=== PATIENT | male | born 1940 | race Two or more races ===

== ENCOUNTER 2017-05-08 12:47 | Inpatient (IN) | payer MEDICARE, MEDICAID ==
[~2017-05-08] VITALS: Ht 172.7 cm; Wt 73.5 kg
[~2017-05-08 12:47] MED LIST: ALLOPURINOL100 M1 ORAL; AMBIEN5 MG ORAL; ATIVAN2 MG ORAL; BACTRIM-DS1 EA ORAL; CRESTOR10 M1 ORAL; HUMULIN R100 UNIT/1 SUBQ; LABETALOL HCL200 MG ORAL; LANTUS100 UNIT/2 SUBQ; MULTI VITAMIN1 EACH PO; NEXIUM40 MG ORAL; NORCO1 EA ORAL; OMEGA 3 FISH O1 EAC1 PO; SENNA8.6 M3 PO; TRAZODONE HCL100 MG ORAL; ZOLOFT100 MG ORAL
[2017-05-08] MEDS ORDERED: NS 250 ML IV ONE (12:53)
[2017-05-08] MEDS ORDERED: Pantoprazole Inj IVP ONE (13:00)
[2017-05-08] MEDS ORDERED: Morphine Sulfate 2mg/ml Inj IVP ONE (13:00)
[2017-05-08 13:07] VITALS: BP 101/60
[2017-05-08 13:21] LABS: EOSINOPHILS % (AUTO) 3.3 % (0.0-3.0); LYMPHOCYTES % (AUTO) 7.8 % (20.0-45.0); MEAN CORPUSCULAR HEMOGLOBIN 29.8 PG (27.0-31.0); MEAN CORPUSCULAR HGB CONC 30.9 G/DL (32.0-36.0); MEAN CORPUSCULAR VOLUME 96 FL (80-99); MEAN PLATELET VOLUME 5.9 FL (6.5-10.1); MONOCYTES % (AUTO) 6.1 % (1.0-10.0); PLATELET COUNT 291 K/UL (150-450); RED BLOOD COUNT 3.57 M/UL (4.70-6.10); RED CELL DISTRIBUTION WIDTH 14.7 % (11.6-14.8); WHITE BLOOD COUNT 9.8 K/UL (4.8-10.8)
[2017-05-08 13:27] LABS: INR 1.1 (0.9-1.1); PROTHROMBIN TIME 11.2 SEC (9.30-11.50)
[2017-05-08 13:30] VITALS: BP 117/61
[2017-05-08 13:35] LABS: ANION GAP 8 mmol/L (5-15); CALCIUM 8.9 MG/DL (8.5-10.1); CARBON DIOXIDE 30 MMOL/L (21-32); CHLORIDE 101 MMOL/L (98-107); CREATININE 4.7 MG/DL (0.55-1.30); POTASSIUM 4.5 MMOL/L (3.5-5.1); SODIUM 139 MMOL/L (136-145)
[2017-05-08 13:49] LABS: ALANINE AMINOTRANSFERASE 31 U/L (12-78); ASPARTATE AMINO TRANSFERASE 21 U/L (15-37); CKMB 2.5 NG/ML (0.0-3.6); TOTAL PROTEIN 6.2 G/DL (6.4-8.2)
--- NOTE | 2017-05-08 14:47 | Emergency Room Report ---
History of Present Illness General Chief Complaint: Chest Pain Source: Patient, EMS Present Illness HPI 77-year-old male presents ED complaining of chest pain. Started today while at rest. Was given aspirin by EMS. Chest pain as a 5/10, pressure, nonradiating. Patient also gets dialysis. Denies shortness of breath. Denies fevers or chills. Denies cough. No other aggravating relieving factors. Denies any other associated symptoms Allergies: Coded Allergies: No Known Allergies (Unverified , 11/12/12) Patient History Past Medical History: DM, HTN, renal disease, dialysis Past Surgical History: none Pertinent Family History: none Social History: Denies: smoking, alcohol use, drug use Immunizations: UTD Reviewed Nursing Documentation: PMH: Agreed, PSxH: Agreed Nursing Documentation-PMH Hx Cardiac Problems: Yes Hx Hypertension: Yes Hx Diabetes: Yes Hx Dialysis: Yes Review of Systems All Other Systems: negative except mentioned in HPI Physical Exam Vital Signs Date Time Temp Pulse Resp B/P (MAP) Pulse Ox O2 Delivery O2 Flow Rate FiO2 05/08/17 12:39 97.9 78 18 110/60 98 Room Air Sp02 EP Interpretation: reviewed, normal General Appearance: no apparent distress, alert, GCS 15, non-toxic Head: normocephalic, atraumatic Eyes: bilateral eye normal inspection, bilateral eye PERRL ENT: hearing grossly normal, normal pharynx, no angioedema, normal voice Neck: full range of motion, supple/symm/no masses Respiratory: chest non-tender, lungs clear, normal breath sounds, speaking full sentences Cardiovascular #1: regular rate, rhythm, no edema Cardiovascular #2: 2+ carotid (R), 2+ carotid (L), 2+ radial (R), 2+ radial (L) , 2+ dorsalis pedis (R), 2+ dorsalis pedis (L) Gastrointestinal: normal bowel sounds, non tender, soft, non-distended, no guarding, no rebound Rectal: deferred Genitourinary: normal inspection, no CVA tenderness Musculoskeletal: back normal, gait/station normal, normal range of motion, non- tender Neurologic: alert, oriented x3, responsive, motor strength/tone normal, sensory intact, speech normal Psychiatric: judgement/insight normal, memory normal, mood/affect normal, no suicidal/homicidal ideation Reflexes: 3+ bicep (R), 3+ bicep (L), 3+ tricep (R), 3+ tricep (L), 3+ knee (R) , 3+ knee (L) Skin: normal color, no rash, warm/dry, well hydrated Lymphatic: no adenopathy Medical Decision Making Diagnostic Impression: Primary Impression: Chest pain Qualified Codes: R07.9 - Chest pain, unspecified Additional Impression: ESRD (end stage renal disease) on dialysis ER Course Hospital Course 77-year-old male presents to ED complaining of chest pain Differential diagnoses include: UT/unstable angina, contusion, muscle strain, PTX, rib fracture Clinical course 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 After initial history and physical I ordered labs, EKG, chest x-ray, morphine labs reviewed- no leukocytosis, hb/hct stable, BUN/Cr elevated, trop 0.028, BNP elevated EKG - NSR, no acute ischemic changes interpreted by me Chest x-ray- atelectasis Patient states he feels better wishes to be discharge. Patient has extensive risk factors for cardiac disease. I explained to patient the risks of leaving. Patient states he understands Patient has competency to make his own decisions. Signed AMA form. I. I feel this is a highly complex case requiring extensive working including EKG/Rhythm strip, Xray/CT/US, Blood/urine lab work, repeat exams while in ED, and administration of strong opiates/narcotics for pain control, admission to hospital or close patient follow up. Diagnosis - chest pain, ESRD on dialysis patient left AMA Labs Test 05/08/17 12:50 White Blood Count 9.8 K/UL (4.8-10.8) Red Blood Count 3.57 M/UL (4.70-6.10) Hemoglobin 10.6 G/DL (14.2-18.0) Hematocrit 34.4 % (42.0-52.0) Mean Corpuscular Volume 96 FL (80-99) Mean Corpuscular Hemoglobin 29.8 PG (27.0-31.0) Mean Corpuscular Hemoglobin Concent 30.9 G/DL (32.0-36.0) Red Cell Distribution Width 14.7 % (11.6-14.8) Platelet Count 291 K/UL (150-450) Mean Platelet Volume 5.9 FL (6.5-10.1) Neutrophils (%) (Auto) 82.0 % (45.0-75.0) Lymphocytes (%) (Auto) 7.8 % (20.0-45.0) Monocytes (%) (Auto) 6.1 % (1.0-10.0) Eosinophils (%) (Auto) 3.3 % (0.0-3.0) Basophils (%) (Auto) 1.0 % (0.0-2.0) Prothrombin Time 11.2 SEC (9.30-11.50) Prothromb Time International Ratio 1.1 (0.9-1.1) Activated Partial Thromboplast Time 24 SEC (23-33) Sodium Level 139 MMOL/L (136-145) Potassium Level 4.5 MMOL/L (3.5-5.1) Chloride Level 101 MMOL/L (98-107) Carbon Dioxide Level 30 MMOL/L (21-32) Anion Gap 8 mmol/L (5-15) Blood Urea Nitrogen 88 mg/dL (7-18) Creatinine 4.7 MG/DL (0.55-1.30) Estimat Glomerular Filtration Rate mL/min (>60) Glucose Level 163 MG/DL (74-106) Calcium Level 8.9 MG/DL (8.5-10.1) Total Bilirubin 0.3 MG/DL (0.2-1.0) Aspartate Amino Transf (AST/SGOT) 21 U/L (15-37) Alanine Aminotransferase (ALT/SGPT) 31 U/L (12-78) Alkaline Phosphatase 89 U/L (46-116) Total Creatine Kinase 129 U/L (26-308) Creatine Kinase MB 2.5 NG/ML (0.0-3.6) Creatine Kinase MB Relative Index 1.9 Troponin I 0.028 ng/mL (0.000-0.056) Pro-B-Type Natriuretic Peptide 1228 pg/mL (0-125) Total Protein 6.2 G/DL (6.4-8.2) Albumin 3.1 G/DL (3.4-5.0) Globulin 3.1 g/dL Albumin/Globulin Ratio 1.0 (1.0-2.7) EKG Diagnostic Results Rate: normal Rhythm: NSR ST Segments: no acute changes ASA given to the pt in ED: No - given by ems Rhythm Strip Diag. Results EP Interpretation: yes Rhythm: NSR, no PVC's, no ectopy Chest X-Ray Diagnostic Results Chest X-Ray Diagnostic Results : Chest X-Ray Ordered: Yes # of Views/Limited/Complete: 1 View Indication: Chest Pain EP Interpretation: Yes Interpretation: no pneumothorax, no acute cardiopulmonary disease, other - atelectasis Impression: No acute disease Electronically Signed by: Electronically signed by Tyler Coles MD Last Vital Signs Date Time Temp Pulse Resp B/P (MAP) Pulse Ox O2 Delivery O2 Flow Rate FiO2 05/08/17 13:30 79 24 117/61 98 Room Air 05/08/17 13:07 98.2 Status: improved Disposition: AGAINST MEDICAL ADVICE Condition: Stable Referrals: NON PHYSICIAN (PCP) TYLER COLES M.D. May 08, 2017 14:47
[2017-05-08 14:49] VITALS: BP 121/64
--- NOTE | 2017-05-08 17:24 | Diagnostic Imaging Report ---
Indication: Reason For Exam: CP Technique: One view of the chest Comparison: 05/10/2013 Findings: The heart is enlarged. The lungs and pleural spaces are clear. The aorta is tortuous and calcified. The upper mediastinum is unremarkable. A coronary stent is demonstrated. Impression: No acute process
[2017-05-08 18:12] VITALS: BP 133/78
--- NOTE | 2017-05-08 19:52 | Consultation ---
Consult Note Consult Note asked to eval for dialysis management seen in ER on HD for past 2 years to ER for CP Dialysis Heladio W Fr DM HTN ESRD Meds reviewed Assessment/Plan ESRD ACS DM HTN Plan: HD in am Per cardiology keep BP and BS in check CARMEN RAE May 08, 2017 19:52
[2017-05-08 20:00] VITALS: BP 141/78
[2017-05-08] MEDS: Morphine Sulfate 2mg/ml Inj IVP PRN (20:54)
[2017-05-08] MEDS: TraZODone 100mg tab ORAL SCH (20:56)
[2017-05-08] MEDS: Pantoprazole 80 MG in NS 250 ML IV SCH (23:09)
[2017-05-09] VITALS (11 sets, daily range): BP systolic 106–134; BP diastolic 56–68
[2017-05-09] MEDS: Morphine Sulfate 2mg/ml Inj IVP PRN ×2 (08:31→22:04)
[2017-05-09 08:49] LABS: BASOPHILS % (AUTO) 0.8 % (0.0-2.0); EOSINOPHILS % (AUTO) 0.1 % (0.0-3.0); LYMPHOCYTES % (AUTO) 9.3 % (20.0-45.0); MEAN CORPUSCULAR HEMOGLOBIN 30.4 PG (27.0-31.0); MEAN CORPUSCULAR HGB CONC 31.8 G/DL (32.0-36.0); MEAN CORPUSCULAR VOLUME 96 FL (80-99); MEAN PLATELET VOLUME 5.9 FL (6.5-10.1); MONOCYTES % (AUTO) 7.5 % (1.0-10.0); NEUTROPHILS % (AUTO) 82.2 % (45.0-75.0); PLATELET COUNT 289 K/UL (150-450); RED BLOOD COUNT 2.79 M/UL (4.70-6.10); RED CELL DISTRIBUTION WIDTH 14.6 % (11.6-14.8); WHITE BLOOD COUNT 8.1 K/UL (4.8-10.8)
[2017-05-09] MEDS: Labetalol 200mg tab ORAL SCH ×2 (09:00→17:37)
[2017-05-09] MEDS ORDERED: Prep H Ointment 57gm RECTAL PRN (09:00)
[2017-05-09] MEDS ORDERED: Aspirin Baby 81mg ORAL SCH (09:00)
[2017-05-09 09:02] LABS: HEMOGLOBIN A1C 5.6 % (4.3-6.0)
[2017-05-09 09:10] LABS: ALANINE AMINOTRANSFERASE 24 U/L (12-78); ANION GAP 11 mmol/L (5-15); ASPARTATE AMINO TRANSFERASE 13 U/L (15-37); CARBON DIOXIDE 28 MMOL/L (21-32); CHLORIDE 99 MMOL/L (98-107); CHOLESTEROL 122 MG/DL (< 200); CHOLESTEROL/HDL RATIO 4.5 (3.3-4.4); CREATININE 5.8 MG/DL (0.55-1.30); CRP QUANT < 0.4 mg/dL (0.00-0.90); FERRITIN 698 NG/ML (8-388); MAGNESIUM 1.8 MG/DL (1.8-2.4); PHOSPHORUS 3.2 MG/DL (2.5-4.9); POTASSIUM 4.4 MMOL/L (3.5-5.1); SODIUM 138 MMOL/L (136-145); THYROID STIMULATING HORMONE 0.344 uiU/mL (0.358-3.740); TOTAL PROTEIN 5.9 G/DL (6.4-8.2); URIC ACID 5.8 MG/DL (2.6-7.2)
--- NOTE | 2017-05-09 09:34 | Pre-Procedure Note/Attestation ---
Pre-Procedure Note/Attestation Complete Prior to Procedure Planned Procedure: not applicable Procedure Narrative: egd Indications for Procedure Pre-Operative Diagnosis: gib Attestation I attest that I discussed the nature of the procedure; its benefits; risks and complications; and alternatives (and the risks and benefits of such alternatives ), prior to the procedure, with the patient (or the patient's legal development representative). I attest that, if there was a reasonable possibility of needing a blood transfusion, the patient (or the patient's legal development representative) was given the [facility] standardized written summary, pursuant to the K[place] Pancho Blood Safety Act ([place] Health and Safety Code # 1645, as amended). I attest that I re-evaluated the patient just prior to the surgery and that there has been no change in the patient's H&P, except as documented below: ALDEN COLON May 09, 2017 09:34
--- NOTE | 2017-05-09 09:34 | General Progress Note ---
Assessment/Plan Problem List: (1) Depression ICD Codes: F32.9 - Major depressive disorder, single episode, unspecified SNOMED: 12931139 (2) Coffee ground emesis ICD Codes: K92.0 - Hematemesis SNOMED: 01607237, 894398115 (3) ESRD (end stage renal disease) on dialysis ICD Codes: N18.6 - End stage renal disease; Z99.2 - Dependence on renal dialysis SNOMED: 173930558 (4) Chest pain ICD Codes: R07.9 - Chest pain SNOMED: 14520942 Assessment/Plan plan EGd today Subjective ROS Limited/Unobtainable: Yes Allergies: Coded Allergies: No Known Allergies (Unverified , 11/12/12) Objective Last 24 Hour Vital Signs Date Time Temp Pulse Resp B/P (MAP) Pulse Ox O2 Delivery O2 Flow Rate FiO2 05/09/17 04:00 69 05/09/17 04:00 98.2 79 20 121/62 97 Room Air 05/09/17 00:00 70 05/09/17 00:00 97.7 67 20 112/62 95 Room Air 05/08/17 20:00 98.1 82 20 141/78 98 Room Air 05/08/17 20:00 86 05/08/17 18:12 98.7 81 22 133/78 100 Room Air 05/08/17 17:27 78 16 130/70 98 Room Air 78 05/08/17 14:49 98.7 79 24 121/64 98 Room Air 79 05/08/17 13:30 79 24 117/61 98 Room Air 05/08/17 13:07 98.2 79 24 101/60 98 Room Air 05/08/17 13:05 78 16 05/08/17 12:39 97.9 78 18 110/60 98 Room Air Laboratory Tests 05/08/17 12:50: White Blood Count 9.8, Red Blood Count 3.57L, Hemoglobin 10.6L, Hematocrit 34.4L , Mean Corpuscular Volume 96, Mean Corpuscular Hemoglobin 29.8, Mean Corpuscular Hemoglobin Concent 30.9L, Red Cell Distribution Width 14.7, Platelet Count 291, Mean Platelet Volume 5.9L, Neutrophils (%) (Auto) 82.0H, Lymphocytes (%) (Auto) 7.8L, Monocytes (%) (Auto) 6.1, Eosinophils (%) (Auto) 3.3H, Basophils (%) (Auto) 1.0, Prothrombin Time 11.2, Prothromb Time International Ratio 1.1, Activated Partial Thromboplast Time 24, Sodium Level 139, Potassium Level 4.5, Chloride Level 101, Carbon Dioxide Level 30, Anion Gap 8, Blood Urea Nitrogen 88H, Creatinine 4.7H, Estimat Glomerular Filtration Rate , Glucose Level 163H, Calcium Level 8.9, Total Bilirubin 0.3, Aspartate Amino Transf (AST/SGOT) 21, Alanine Aminotransferase (ALT/SGPT) 31, Alkaline Phosphatase 89, Total Creatine Kinase 129, Creatine Kinase MB 2.5, Creatine Kinase MB Relative Index 1.9, Troponin I 0.028, Pro-B-Type Natriuretic Peptide 1228H, Total Protein 6.2L, Albumin 3.1L, Globulin 3.1, Albumin/Globulin Ratio 1.0 05/09/17 07:50: White Blood Count 8.1, Red Blood Count 2.79L, Hemoglobin 8.5L, Hematocrit 26.7L , Mean Corpuscular Volume 96, Mean Corpuscular Hemoglobin 30.4, Mean Corpuscular Hemoglobin Concent 31.8L, Red Cell Distribution Width 14.6, Platelet Count 289, Mean Platelet Volume 5.9L, Neutrophils (%) (Auto) 82.2H, Lymphocytes (%) (Auto) 9.3L, Monocytes (%) (Auto) 7.5, Eosinophils (%) (Auto) 0.1, Basophils (%) (Auto) 0.8, Sodium Level 138, Potassium Level 4.4, Chloride Level 99, Carbon Dioxide Level 28, Anion Gap 11, Blood Urea Nitrogen 133H, Creatinine 5.8H, Estimat Glomerular Filtration Rate , Glucose Level 170H, Calcium Level 9.0, Total Bilirubin 0.2, Aspartate Amino Transf (AST/SGOT) 13L, Alanine Aminotransferase (ALT/SGPT) 24, Alkaline Phosphatase 71, Pro-B-Type Natriuretic Peptide 1151H, Total Protein 5.9L, Albumin 3.0L, Globulin 2.9, Albumin/Globulin Ratio 1.0, Hemoglobin A1c 5.6, Uric Acid 5.8, Phosphorus Level 3.2, Magnesium Level 1.8, Iron Level [Pending], Unsaturated Iron Binding [ Pending], Ferritin 698H, Gamma Glutamyl Transpeptidase 46, C-Reactive Protein, Quantitative < 0.4, Triglycerides Level 261H, Cholesterol Level 122, LDL Cholesterol 56, HDL Cholesterol 27L, Cholesterol/HDL Ratio 4.5H, Vitamin B12 Level [Pending], Folate [Pending], Thyroid Stimulating Hormone (TSH) 0.344L Height (Feet): 5 Height (Inches): 8.00 Weight (Pounds): 166 General Appearance: no apparent distress EENT: normal ENT inspection Neck: supple Cardiovascular: normal rate Respiratory/Chest: decreased breath sounds Abdomen: normal bowel sounds, non tender, soft Extremities: non-tender ALDEN COLON May 09, 2017 09:34
[2017-05-09 09:44] LABS: FOLIC ACID 16.5 NG/ML (8.6-58.9); IRON 131 ug/dL (50-175); TOTAL IRON BINDING CAPACITY 198 ug/dL (250-450)
[2017-05-09] MEDS ORDERED: NS 500ML IV ONE (09:45)
[2017-05-09] MEDS ORDERED: Lidocaine 1% MPF 10mg/ml 5ml ONE (10:00)
[2017-05-09] MEDS ORDERED: Propofol 200mg/20ml IV ONE (10:00)
--- NOTE | 2017-05-09 10:15 | Anethesia Preoperative Eval ---
Anesthesia Pre-op PMH/ROS General Date of Evaluation: May 09, 2017 Time of Evaluation: 09:51 Anesthesiologist: Otilio ASA Score: ASA 3 Mallampati Score Class I : Soft palate, uvula, fauces, pillars visible Class II: Soft palate, uvula, fauces visible Class III: Soft palate, base of uvula visible Class IV: Only hard plate visible Mallampati Classification: Class II Surgeon: Beth Diagnosis: hematemesis Surgical Procedure: EGD Anesthesia History: none Family History: no anesthesia problems Allergies: Coded Allergies: No Known Allergies (Unverified , 11/12/12) Medications: see eMAR Past Medical History Cardiovascular: Reports: HTN, CAD, other - Chest Pain yesterday - EKG NSR , trop 0.028, CXR atelectasis Pulmonary: Denies: asthma, COPD, ERIK, other Gastrointestinal/Genitourinary: Reports: GERD, ESRD - on dialysis Neurologic/Psychiatric: Denies: dementia, CVA, depression/anxiety, TIA, other Endocrine: Reports: DM HEENT: Denies: cataract (L), cataract (R), glaucoma, [place] (L), [place] (R), other Hematology/Immune: Reports: anemia Musculoskeletal/Integumentary: Reports: OA Anesthesia Pre-op Phys. Exam Physician Exam Last Vital Signs Date Time Temp Pulse Resp B/P (MAP) Pulse Ox O2 Delivery O2 Flow Rate FiO2 05/09/17 04:00 69 05/09/17 04:00 98.2 20 121/62 97 Room Air Constitutional: NAD Neurologic: CN 2-12 intact Cardiovascular: RRR Respiratory: CTA Gastrointestinal: S/NT/ND Airway Exam Mallampati Score: Class II MO: full ROM: full Teeth: missing, intact Dentures: upper - upper dentures fixed Anesthesia Pre-op A/P Labs Hematology Test 05/08/17 12:50 05/09/17 07:50 White Blood Count 9.8 K/UL (4.8-10.8) 8.1 K/UL (4.8-10.8) Red Blood Count 3.57 M/UL (4.70-6.10) L 2.79 M/UL (4.70-6.10) L Hemoglobin 10.6 G/DL (14.2-18.0) L 8.5 G/DL (14.2-18.0) L Hematocrit 34.4 % (42.0-52.0) L 26.7 % (42.0-52.0) L Mean Corpuscular Volume 96 FL (80-99) 96 FL (80-99) Mean Corpuscular Hemoglobin 29.8 PG (27.0-31.0) 30.4 PG (27.0-31.0) Mean Corpuscular Hemoglobin Concent 30.9 G/DL (32.0-36.0) L 31.8 G/DL (32.0-36.0) L Red Cell Distribution Width 14.7 % (11.6-14.8) 14.6 % (11.6-14.8) Platelet Count 291 K/UL (150-450) 289 K/UL (150-450) Mean Platelet Volume 5.9 FL (6.5-10.1) L 5.9 FL (6.5-10.1) L Neutrophils (%) (Auto) 82.0 % (45.0-75.0) H 82.2 % (45.0-75.0) H Lymphocytes (%) (Auto) 7.8 % (20.0-45.0) L 9.3 % (20.0-45.0) L Monocytes (%) (Auto) 6.1 % (1.0-10.0) 7.5 % (1.0-10.0) Eosinophils (%) (Auto) 3.3 % (0.0-3.0) H 0.1 % (0.0-3.0) Basophils (%) (Auto) 1.0 % (0.0-2.0) 0.8 % (0.0-2.0) Coagulation Test 05/08/17 12:50 Prothrombin Time 11.2 SEC (9.30-11.50) Prothromb Time International Ratio 1.1 (0.9-1.1) Activated Partial Thromboplast Time 24 SEC (23-33) Chemistry Test 05/08/17 12:50 05/09/17 07:50 Sodium Level 139 MMOL/L (136-145) 138 MMOL/L (136-145) Potassium Level 4.5 MMOL/L (3.5-5.1) 4.4 MMOL/L (3.5-5.1) Chloride Level 101 MMOL/L (98-107) 99 MMOL/L (98-107) Carbon Dioxide Level 30 MMOL/L (21-32) 28 MMOL/L (21-32) Anion Gap 8 mmol/L (5-15) 11 mmol/L (5-15) Blood Urea Nitrogen 88 mg/dL (7-18) H 133 mg/dL (7-18) H Creatinine 4.7 MG/DL (0.55-1.30) H 5.8 MG/DL (0.55-1.30) H Estimat Glomerular Filtration Rate mL/min (>60) mL/min (>60) Glucose Level 163 MG/DL (74-106) H 170 MG/DL (74-106) H Calcium Level 8.9 MG/DL (8.5-10.1) 9.0 MG/DL (8.5-10.1) Total Bilirubin 0.3 MG/DL (0.2-1.0) 0.2 MG/DL (0.2-1.0) Aspartate Amino Transf (AST/SGOT) 21 U/L (15-37) 13 U/L (15-37) L Alanine Aminotransferase (ALT/SGPT) 31 U/L (12-78) 24 U/L (12-78) Alkaline Phosphatase 89 U/L (46-116) 71 U/L (46-116) Total Creatine Kinase 129 U/L (26-308) Creatine Kinase MB 2.5 NG/ML (0.0-3.6) Creatine Kinase MB Relative Index 1.9 Troponin I 0.028 ng/mL (0.000-0.056) Pro-B-Type Natriuretic Peptide 1228 pg/mL (0-125) H 1151 pg/mL (0-125) H Total Protein 6.2 G/DL (6.4-8.2) L 5.9 G/DL (6.4-8.2) L Albumin 3.1 G/DL (3.4-5.0) L 3.0 G/DL (3.4-5.0) L Globulin 3.1 g/dL 2.9 g/dL Albumin/Globulin Ratio 1.0 (1.0-2.7) 1.0 (1.0-2.7) Hemoglobin A1c 5.6 % (4.3-6.0) Uric Acid 5.8 MG/DL (2.6-7.2) Phosphorus Level 3.2 MG/DL (2.5-4.9) Magnesium Level 1.8 MG/DL (1.8-2.4) Iron Level 131 ug/dL (50-175) Total Iron Binding Capacity 198 ug/dL (250-450) L Percent Iron Saturation 66 % (15-50) H Unsaturated Iron Binding 67 ug/dL (112-346) L Ferritin 698 NG/ML (8-388) H Gamma Glutamyl Transpeptidase 46 U/L (5-85) C-Reactive Protein, Quantitative < 0.4 mg/dL (0.00-0.90) Triglycerides Level 261 MG/DL (30-150) H Cholesterol Level 122 MG/DL (< 200) LDL Cholesterol 56 mg/dL (<100) HDL Cholesterol 27 MG/DL (40-60) L Cholesterol/HDL Ratio 4.5 (3.3-4.4) H Vitamin B12 Level 680 PG/ML (193-986) Folate 16.5 NG/ML (8.6-58.9) Thyroid Stimulating Hormone (TSH) 0.344 uiU/mL (0.358-3.740) Accucheck BS 170 Studies Pre-op Studies: EKG - NSR Risk Assessment & Plan Assessment: A&Ox3 Plan: MAC Status Change Before Surgery: No Pre-Antibiotics Given Within 1 Hr of Incision: Bee Nolen CRNA May 09, 2017 10:15
--- NOTE | 2017-05-09 10:32 | Immediate Post-Op Evaluation ---
Immediate Post-Op Evalulation Immediate Post-Op Evalulation Procedure: EGD with biopsy Date of Evaluation: May 09, 2017 Time of Evaluation: 10:16 IV Fluids: NSS 200 ml Blood Products: 0 Estimated Blood Loss: 0 Urinary Output: 0 Blood Pressure Systolic: 124 Blood Pressure Diastolic: 61 Pulse Rate: 71 Respiratory Rate: 20 O2 Sat by Pulse Oximetry: 99 Temperature (Fahrenheit): 99.7 Pain Score (1-10): 0 Nausea: No Vomiting: No Complications none Patient Status: awake, reacts, patent Hydration Status: adequate Given Within 1 Hr of Incision: Bee Nolen CRNA May 09, 2017 10:32
--- NOTE | 2017-05-09 10:33 | 48 Hour Post Anesthesia Eval ---
Post Anesthesia Evaluation Procedure: EGD with biopsy Date of Evaluation: May 09, 2017 Time of Evaluation: 10:32 Blood Pressure Systolic: 125 0: 65 Pulse Rate: 75 Respiratory Rate: 18 Temperature (Fahrenheit): 99.7 O2 Sat by Pulse Oximetry: 100 Airway: patent Nausea: No Vomiting: No Pain Intensity: 0 Hydration Status: adequate Mental Status/LOC: patient returned to baseline Follow-up care needed: patient intructions given Bee Yañez CRNA May 09, 2017 10:33
[2017-05-09] MEDS: Allopurinol 100mg Tab ORAL SCH (11:22)
[2017-05-09] MEDS: Pantoprazole 80 MG in NS 250 ML IV SCH ×2 (11:22→17:40)
--- NOTE | 2017-05-09 11:49 | Consultation ---
Consult Note Consult Note [id number] Chely Kulkarni M.D. May 09, 2017 11:49
--- NOTE | 2017-05-09 12:35 | Nephrology Progress Note ---
Assessment/Plan Assessment ESRD ACS DM HTN coffe ground vomiting Plan Plan: HD today Per cardiology keep BP and BS in check Subjective ROS Limited/Unobtainable: No Constitutional: Reports: malaise, other - no CP Objective Objective Last 24 Hour Vital Signs Date Time Temp Pulse Resp B/P (MAP) Pulse Ox O2 Delivery O2 Flow Rate FiO2 05/09/17 12:00 97.5 66 18 106/60 100 Room Air 05/09/17 10:41 99.2 63 18 124/62 98 Room Air 05/09/17 10:35 65 17 123/62 98 Room Air 05/09/17 10:33 75 18 100 05/09/17 10:32 71 20 99 05/09/17 10:25 73 21 113/61 100 Room Air 05/09/17 10:20 66 18 114/62 100 Nasal Cannula 3.0 05/09/17 10:16 99.7 70 17 120/56 100 Nasal Cannula 3.0 05/09/17 08:00 67 05/09/17 08:00 97.5 70 18 118/60 100 Room Air 05/09/17 04:00 69 05/09/17 04:00 98.2 79 20 121/62 97 Room Air 05/09/17 00:00 70 05/09/17 00:00 97.7 67 20 112/62 95 Room Air 05/08/17 20:00 98.1 82 20 141/78 98 Room Air 05/08/17 20:00 86 05/08/17 18:12 98.7 81 22 133/78 100 Room Air 05/08/17 17:27 78 16 130/70 98 Room Air 78 05/08/17 14:49 98.7 79 24 121/64 98 Room Air 79 05/08/17 13:30 79 24 117/61 98 Room Air 05/08/17 13:07 98.2 79 24 101/60 98 Room Air 05/08/17 13:05 78 16 05/08/17 12:39 97.9 78 18 110/60 98 Room Air Intake and Output 05/08/17 05/09/17 19:00 07:00 Intake Total 50 ml 246 ml Output Total 325 ml Balance 50 ml -79 ml Intake Oral 0 ml 50 ml IV Total 50 ml 196 ml Output Urine Total 200 ml Emesis 125 ml # Voids 1 Laboratory Tests 05/08/17 12:50: White Blood Count 9.8, Red Blood Count 3.57L, Hemoglobin 10.6L, Hematocrit 34.4L , Mean Corpuscular Volume 96, Mean Corpuscular Hemoglobin 29.8, Mean Corpuscular Hemoglobin Concent 30.9L, Red Cell Distribution Width 14.7, Platelet Count 291, Mean Platelet Volume 5.9L, Neutrophils (%) (Auto) 82.0H, Lymphocytes (%) (Auto) 7.8L, Monocytes (%) (Auto) 6.1, Eosinophils (%) (Auto) 3.3H, Basophils (%) (Auto) 1.0, Prothrombin Time 11.2, Prothromb Time International Ratio 1.1, Activated Partial Thromboplast Time 24, Sodium Level 139, Potassium Level 4.5, Chloride Level 101, Carbon Dioxide Level 30, Anion Gap 8, Blood Urea Nitrogen 88H, Creatinine 4.7H, Estimat Glomerular Filtration Rate , Glucose Level 163H, Calcium Level 8.9, Total Bilirubin 0.3, Aspartate Amino Transf (AST/SGOT) 21, Alanine Aminotransferase (ALT/SGPT) 31, Alkaline Phosphatase 89, Total Creatine Kinase 129, Creatine Kinase MB 2.5, Creatine Kinase MB Relative Index 1.9, Troponin I 0.028, Pro-B-Type Natriuretic Peptide 1228H, Total Protein 6.2L, Albumin 3.1L, Globulin 3.1, Albumin/Globulin Ratio 1.0 05/09/17 07:50: White Blood Count 8.1, Red Blood Count 2.79L, Hemoglobin 8.5L, Hematocrit 26.7L , Mean Corpuscular Volume 96, Mean Corpuscular Hemoglobin 30.4, Mean Corpuscular Hemoglobin Concent 31.8L, Red Cell Distribution Width 14.6, Platelet Count 289, Mean Platelet Volume 5.9L, Neutrophils (%) (Auto) 82.2H, Lymphocytes (%) (Auto) 9.3L, Monocytes (%) (Auto) 7.5, Eosinophils (%) (Auto) 0.1, Basophils (%) (Auto) 0.8, Sodium Level 138, Potassium Level 4.4, Chloride Level 99, Carbon Dioxide Level 28, Anion Gap 11, Blood Urea Nitrogen 133H, Creatinine 5.8H, Estimat Glomerular Filtration Rate , Glucose Level 170H, Calcium Level 9.0, Total Bilirubin 0.2, Aspartate Amino Transf (AST/SGOT) 13L, Alanine Aminotransferase (ALT/SGPT) 24, Alkaline Phosphatase 71, Pro-B-Type Natriuretic Peptide 1151H, Total Protein 5.9L, Albumin 3.0L, Globulin 2.9, Albumin/Globulin Ratio 1.0, Hemoglobin A1c 5.6, Uric Acid 5.8, Phosphorus Level 3.2, Magnesium Level 1.8, Iron Level 131, Total Iron Binding Capacity 198L, Percent Iron Saturation 66H, Unsaturated Iron Binding 67L, Ferritin 698H, Gamma Glutamyl Transpeptidase 46, C-Reactive Protein, Quantitative < 0.4, Triglycerides Level 261H, Cholesterol Level 122, LDL Cholesterol 56, HDL Cholesterol 27L, Cholesterol/HDL Ratio 4.5H, Vitamin B12 Level 680, Folate 16.5 , Thyroid Stimulating Hormone (TSH) 0.344L Height (Feet): 5 Height (Inches): 8.00 Weight (Pounds): 166 General Appearance: no apparent distress Cardiovascular: normal rate Respiratory/Chest: lungs clear Abdomen: soft CARMEN RAE May 09, 2017 12:35
--- NOTE | 2017-05-09 15:04 | Cardiology Report ---
APPROVED REPORT EXAM: Two-dimensional and M-mode echocardiogram with Doppler and color Doppler. INDICATION Congestive Heart Failure M-Mode DIMENSIONS IVSd1.2 (0.7-1.1cm)Left Atrium (MM)3.5 (1.6-4.0cm) LVDd4.1 (3.5-5.6cm)Aortic Root2.9 (2.0-3.7cm) PWd1.4 (0.7-1.1cm)Aortic Cusp Exc.1.9 (1.5-2.0cm) LVDs1.6 (2.5-4.0cm) PWs2.4 cm Normal left ventricular chamber size, systolic function and wall motion. Left ventricular ejection fraction estimated to be 55 %. Mild left ventricular hypertrophy. Anterior Echo-free space, may be due to pericardial fat or effusion. All other cardiac chamber sizes are within normal limits. Focal aortic valve sclerosis with adequate cusp excursion. Thickened mitral valve leaflets with normal excursion. Mild mitral annulus and aortic root calcification. Normal pulmonic valve structure. Normal tricuspid valve structure. IVC measures at 1.7 cm with physiologic collapse. A color flow and spectral Doppler study was performed and revealed: No aortic regurgitation. Trace mitral regurgitation. Mitral diastolic velocities suggest mild left ventricular dysfunction (Grade I ). Mild tricuspid regurgitation. Tricuspid systolic velocities suggests peak right ventricular systolic pressure of 25 mmHg. No pulmonic regurgitation present.
--- NOTE | 2017-05-09 15:15 | Procedure Note ---
DATE OF PROCEDURE: 05/09/2017 SURGEON: Martín Campos M.D. REFERRING PHYSICIAN: Samantha Head M.D. PROCEDURE: Upper endoscopy with biopsy. ANESTHESIA: Per Otilio SERRATO. INSTRUMENT: Olympus adult flexible upper endoscope. INDICATION: Upper GI bleeding. The procedure, risks, benefits, and possible consequences, including hemorrhage, aspiration, perforation and infection, and alternative treatments, were explained to the patient/legal guardian by Dr. Martín Campos and the patient/legal guardian understood and accepted these risks. DESCRIPTION FOR PROCEDURE: After informed consent was obtained and the patient was adequately sedated, Olympus upper endoscope was advanced from mouth into the second portion of the duodenum and retroflexion was performed in the stomach. The patient had evidence of duodenitis and shallow duodenal ulcer at the junction of the first portion of duodenum and second portion of duodenum without any adherent clot or visible vessel. Random biopsy from antrum and body was obtained to rule out H. pylori infection. SUMMARY FINDINGS: 1. Duodenal ulcer without adherent clot or visible vessel. 2. Duodenitis. PLAN: 1. To resume diet. 2. Monitor hemoglobin and hematocrit and transfuse as needed. 3. Send serology for H. pylori. 4. Follow up biopsy results for H. pylori and treat if it is positive. Start the patient on PPI daily. Okay to discharge from GI standpoint and follow as an outpatient. I want to thank Dr. Samantha Head for this kind referral. Martín Campos M.D. DR: Aiden JOB#: [id number] CC: Samantha Head M.D.; Fax#: [phone]
--- NOTE | 2017-05-09 17:01 | Cardiology Report ---
APPROVED REPORT EKG Measurement Heart [id number] VT [id number] Normal sinus rhythm Inferior infarct, age undetermined Abnormal ECG
[2017-05-09] MEDS: TraZODone 100mg tab ORAL SCH (20:45)
--- NOTE | 2017-05-09 21:15 | Consultation ---
DATE OF CONSULTATION: 05/09/2017 CONSULTING PHYSICIAN: Chely Kulkarni M.D. HISTORY OF PRESENT ILLNESS: This is a 77-year-old male with a history of multiple medical problems, including diabetic mellitus; renal disease, on dialysis; hypertension; and depression who has been admitted to the hospital for chest pain. Psychiatry was consulted as the patient is having depressive symptoms as well as the anxiety. During evaluation, he stated that he has mild symptoms of depressed mood, anhedonia, worthlessness, hopelessness, and decreased energy. He stated that trazodone has worked for him in the past. The patient was seen in the ER. PAST PSYCHIATRIC HISTORY: History of depression. No suicide attempt in the past. PAST MEDICAL HISTORY: Hypertension and renal failure, on dialysis. SUBSTANCE ABUSE HISTORY: No known history of illicit drug use or alcohol. MENTAL STATUS EXAMINATION: The patient is alert and oriented x3. Mood is depressed. Affect is constricted. Congruent with mood. Thought process is concrete. Thought content, no suicidal or homicidal ideation. ASSESSMENT: AXIS I Major depressive disorder. AXIS II Deferred. AXIS III Chest pain. AXIS IV Low. AXIS V Global assessment of functioning is 50. PLAN: 1. The patient will be started on trazodone 100 mg at bedtime. 2. Continue the Ativan as needed. 3. We will continue to follow and readjust the medications. Chely Kulkarni M.D. DR: TROY JOB#: [id number] CC:
[2017-05-09] MEDS: Epogen (for ESRD on dialysis) SUBQ SCH (21:20)
[2017-05-10] VITALS (7 sets, daily range): BP systolic 102–136; BP diastolic 57–69
[2017-05-10] MEDS: Pantoprazole 80 MG in NS 250 ML IV SCH (05:31)
--- NOTE | 2017-05-10 06:00 | Consultation ---
DATE OF CONSULTATION: 05/09/2017 HEMATOLOGY/ONCOLOGY CONSULTATION CONSULTING PHYSICIAN: Reinaldo Leon M.D. REQUESTING PHYSICIAN: Samantha Head M.D. REASON FOR CONSULTATION: Evaluation of anemia. IDENTIFICATION DATA: Dear Dr. Head, The patient is a pleasant 77-year-old male with history of end-stage renal disease, hypertension, hemodialysis three times a week, has been on dialysis for the past two weeks. He has seen Nephrology Service. He had an EGD with biopsy, which was completed. He has been seen by Psychiatry Service as well. Currently, presenting with coffee-ground vomiting. Hematology Service was consulted given the patient's anemia. Ferritin was 698. Percent saturation 66 and TIBC 198. Currently, does not require iron. TSH 0.04. Folic acid 60. Imaging was reviewed. PAST MEDICAL HISTORY: , end-stage renal disease, hypertension, and diabetes mellitus. PAST SURGICAL HISTORY: None reported. MEDICATIONS: Has been reviewed. ALLERGIES: No known drug allergies. REVIEW OF SYSTEMS: CONSTITUTIONAL: No fever, chills, or night sweats. SKIN: No rashes, bumps, or itching. HEENT: No headache, hearing, or vision changes. BREASTS: No lumps, pain, or discharge. PULMONARY: No cough, sputum, or shortness of breath. GASTROINTESTINAL: No nausea, vomiting, or diarrhea. GENITOURINARY: No dysuria, frequency, or urgency. MUSCULOSKELETAL: No joint swelling, muscle pain, or trauma. LABORATORY AND DIAGNOSTIC DATA: WBC 8.1, hemoglobin 8.9, hematocrit 27, and platelet count 289,000. BUN of 133 and creatinine . ASSESSMENT AND RECOMMENDATIONS: 1. Anemia secondary to chronic disease. Continue to closely monitor. Hemoglobin is above 7. Continue at goal. Anemia workup also has been reviewed at this time. 2. Decreased hemoglobin and hematocrit. Rule out gastrointestinal bleed. Occult blood is pending. Status post esophagogastroduodenoscopy. 3. Psychiatric disorder, seen by Psychiatry Service. 4. End-stage renal disease, on hemodialysis three times a week. 5. Diabetes mellitus. Continue to closely monitor. Blood sugar goal between 80 and 120. 6. Hypertension. Currently, blood pressure is better controlled. I appreciate the consultation. Reinaldo Kinsey Leon DR: Neda JOB#: [id number] CC:
--- NOTE | 2017-05-10 06:30 | History and Physical Report ---
DATE OF ADMISSION: 05/08/2017 HISTORY OF PRESENT ILLNESS: The patient is a dialysis patient admitted for chest pain and episodes of coffee-ground emesis as well. The patient basically complains of chest pain for couple of days. Also has a history of hemorrhoids as well as abdominal pain. He has end-stage renal disease admitted for dialysis as well. The patient denies nausea or vomiting throughout. There is no blood in the vomitus. Does have history of hemorrhoids. Denies history of shortness of breath. Denies cough. Denies any leg pain. Denies orthopnea. PAST MEDICAL HISTORY: Significant for GERD, history of gout, NIDDM, hypertension, anxiety disorder, hyperlipidemia, constipation, depression and insomnia. PAST SURGICAL HISTORY: Admitted for dialysis. ALLERGIES: No known allergies. MEDICATIONS: Allopurinol, Nexium, insulin, labetalol, lorazepam, multivitamin, Crestor, Senokot, Sertraline and trazodone. FAMILY HISTORY: He does have a history of diabetes and has hypertension. REVIEW OF SYSTEMS: HEENT: Denies headaches. RESPIRATORY: Denies shortness of breath. Denies cough. CARDIOVASCULAR: He does have chest pain. No radiation. Pain was worse with deep inspiration. GASTROINTESTINAL: Reports vomiting. No diarrhea. Does have history of hemorrhoids. Does have mild abdominal pain for couple of days. EXTREMITIES: Denies pain in lower extremities. CENTRAL NERVOUS SYSTEM: No change in vision or speech pattern. PHYSICAL EXAMINATION: VITAL SIGNS: Temperature is 99.2, pulse 62, and blood pressure is 124/62. HEENT: PERRLA. NECK: Supple. No lymphadenopathy. CHEST: Clear to auscultation. GASTROINTESTINAL: Soft and nontender. No organomegaly. EXTREMITIES: A 1+ edema. Moves all 4 extremities. NEUROLOGICAL: Sensory intact to light touch. Reflexes are equal on both sides. LABORATORY VALUES: WBC of 9.8, hemoglobin 10.6, and platelet of 291. Sodium 139, potassium 4.5. BUN 18, creatinine 2.6 and glucose 163. ASSESSMENT AND PLAN: Chest pain, rule out acute coronary syndrome. The patient is at high risk for acute coronary syndrome. I have asked Dr. Arroyo, Dr. Duran, Dr. Campos, and Dr. Kulkarni to see the patient for the anxiety and depression as well as for vomiting coffee-grounds emesis, for gastrointestinal bleed as well as for chest pain, rule out acute coronary syndrome as well as for dialysis orders. Samantha Head M.D. DR: MARILUZ JOB#: [id number] CC:
[2017-05-10 07:07] LABS: MEAN CORPUSCULAR HEMOGLOBIN 30.5 PG (27.0-31.0); MEAN CORPUSCULAR HGB CONC 32.2 G/DL (32.0-36.0); MEAN CORPUSCULAR VOLUME 95 FL (80-99); MEAN PLATELET VOLUME 5.5 FL (6.5-10.1); PLATELET COUNT 244 K/UL (150-450); RED BLOOD COUNT 2.29 M/UL (4.70-6.10); RED CELL DISTRIBUTION WIDTH 14.5 % (11.6-14.8); WHITE BLOOD COUNT 6.6 K/UL (4.8-10.8)
[2017-05-10 07:49] LABS: ALANINE AMINOTRANSFERASE 26 U/L (12-78); ALBUMIN/GLOBULIN RATIO 1.1 (1.0-2.7); ANION GAP 6 mmol/L (5-15); ASPARTATE AMINO TRANSFERASE 18 U/L (15-37); CALCIUM 8.5 MG/DL (8.5-10.1); CARBON DIOXIDE 33 MMOL/L (21-32); CHLORIDE 100 MMOL/L (98-107); CREATININE 4.7 MG/DL (0.55-1.30); MAGNESIUM 1.8 MG/DL (1.8-2.4); PHOSPHORUS 3.4 MG/DL (2.5-4.9); POTASSIUM 4.2 MMOL/L (3.5-5.1); SODIUM 139 MMOL/L (136-145); TOTAL PROTEIN 5.4 G/DL (6.4-8.2); URIC ACID 4.6 MG/DL (2.6-7.2)
[2017-05-10 07:50] LABS: CRP QUANT < 0.4 mg/dL (0.00-0.90)
--- NOTE | 2017-05-10 09:04 | Nephrology Progress Note ---
Assessment/Plan Problem List: (1) ESRD (end stage renal disease) on dialysis (2) Coffee ground emesis Assessment ESRD ACS DM HTN coffe ground vomiting H&H low , DU Plan Plan: HD in am transfuse today- hold ASA protonix drip Per cardiology keep BP and BS in check Subjective ROS Limited/Unobtainable: No Constitutional: Reports: malaise, weakness Objective Objective Last 24 Hour Vital Signs Date Time Temp Pulse Resp B/P (MAP) Pulse Ox O2 Delivery O2 Flow Rate FiO2 05/10/17 04:00 76 20 102/61 93 Room Air 05/10/17 04:00 82 05/10/17 00:00 98.4 78 20 112/63 96 Room Air 05/10/17 00:00 76 05/09/17 20:00 97.7 71 20 134/68 99 Room Air 05/09/17 20:00 80 05/09/17 19:59 Room Air 05/09/17 16:30 Room Air 05/09/17 16:00 98.7 87 18 111/68 95 Room Air 05/09/17 16:00 78 05/09/17 12:00 97.5 66 18 106/60 100 Room Air 05/09/17 12:00 65 05/09/17 10:41 99.2 63 18 124/62 98 Room Air 05/09/17 10:35 65 17 123/62 98 Room Air 05/09/17 10:33 75 18 100 05/09/17 10:32 71 20 99 05/09/17 10:25 73 21 113/61 100 Room Air 05/09/17 10:20 66 18 114/62 100 Nasal Cannula 3.0 05/09/17 10:16 99.7 70 17 120/56 100 Nasal Cannula 3.0 Intake and Output 05/09/17 05/10/17 19:00 07:00 Intake Total 690 ml 525 ml Output Total 350 ml 2450 ml Balance 340 ml -1925 ml Intake Oral 240 ml 300 ml IV Total 450 ml 225 ml Output Urine Total 350 ml 450 ml Hemodialysis UF 2000 ml Estimated Blood Loss 0 ml # Bowel Movements 1 Laboratory Tests 05/10/17 05:30: White Blood Count 6.6, Red Blood Count 2.29L, Hemoglobin 7.0L, Hematocrit 21.7L , Mean Corpuscular Volume 95, Mean Corpuscular Hemoglobin 30.5, Mean Corpuscular Hemoglobin Concent 32.2, Red Cell Distribution Width 14.5, Platelet Count 244, Mean Platelet Volume 5.5L, Neutrophils (%) (Auto) , Lymphocytes (%) ( Auto) , Monocytes (%) (Auto) , Eosinophils (%) (Auto) , Basophils (%) (Auto) , Neutrophils % (Manual) [Pending], Lymphocytes % (Manual) [Pending], Platelet Estimate [Pending], Platelet Morphology [Pending], Sodium Level 139, Potassium Level 4.2, Chloride Level 100, Carbon Dioxide Level 33H, Anion Gap 6, Blood Urea Nitrogen 82H, Creatinine 4.7H, Estimat Glomerular Filtration Rate , Glucose Level 125H, Uric Acid 4.6, Calcium Level 8.5, Phosphorus Level 3.4, Magnesium Level 1.8, Total Bilirubin 0.2, Aspartate Amino Transf (AST/SGOT) 18, Alanine Aminotransferase (ALT/SGPT) 26, Alkaline Phosphatase 64, C-Reactive Protein, Quantitative < 0.4, Pro-B-Type Natriuretic Peptide 621H, Total Protein 5.4L, Albumin 2.8L, Globulin 2.6, Albumin/Globulin Ratio 1.1, Helicobacter pylori IgG Antibody [Pending] Height (Feet): 5 Height (Inches): 8.00 Weight (Pounds): 178 General Appearance: no apparent distress Respiratory/Chest: lungs clear Abdomen: soft CARMEN ARE May 10, 2017 09:04
[2017-05-10] MEDS: Labetalol 200mg tab ORAL SCH ×2 (09:23→18:12)
[2017-05-10] MEDS: Allopurinol 100mg Tab ORAL SCH (09:24)
[2017-05-10 09:56] LABS: BAND NEUTROPHILS % (MANUAL) 0 % (0-8); BASOPHILS % (MANUAL) 0 % (0-2); EOSINOPHILS % (MANUAL) 4 % (0-3); LYMPHOCYTES % (MANUAL) 19 % (20-45); NEUTROPHILS % (MANUAL) 71 % (45-75); PLATELET ESTIMATE ADEQUATE; PLATELET MORPHOLOGY NORMAL; TOTAL CELLS COUNTED 100
[2017-05-10 09:57] LABS: HYPOCHROMASIA 1+; POLYCHROMASIA 1+
--- NOTE | 2017-05-10 10:00 | Consultation ---
DATE OF CONSULTATION: 05/08/2017 CARDIOLOGY CONSULTATION CONSULTING PHYSICIAN: Everett Duran M.D. REFERRING PHYSICIAN: Samantha Head M.D. REASON FOR CONSULTATION: Management of chest pain. HISTORY OF PRESENT ILLNESS: The patient is a very unfortunate 77-year-old gentleman, who presents to the hospital with initial complaint of a dark material emesis. Apparently, the patient was also having chest pain, which started on the day of admission. Given aspirin by EMS. The pain was pressure like nonradiating. The patient has history of end-stage renal disease, on hemodialysis. On arrival to the emergency department, blood pressure was 110/60 mmHg and heart rate of 78. The patient was admitted to telemetry for further evaluation and management. PAST MEDICAL HISTORY: Diabetes mellitus, hypertension, and end-stage renal disease, on dialysis. PAST SURGICAL HISTORY: AV fistula placement and history of PermCath placement. MEDICATIONS: List of medication including allopurinol 100 mg p.o. daily, Nexium 40 mg p.o. daily, Thayer 5/325 mg one tablet daily p.r.n., Humulin insulin, 200 mg twice daily, Ativan 2 mg p.o. daily p.r.n. for agitation, multivitamin one tablet daily, omega 3 fish oil one capsule daily, Crestor 40 mg at bedtime, Senna 8.6 mg p.o. daily p.r.n., Zoloft 100 mg p.o. daily, trazodone 100 mg p.o. at bedtime, Bactrim DS 2 tablets p.o. 4 times daily, and Ambien 5 mg p.o. at bedtime. FAMILY HISTORY: No premature coronary artery disease in first-degree relatives. SOCIAL HISTORY: Denies any tobacco, alcohol, or illicit drug use. REVIEW OF SYSTEMS: A 12-system review was done essentially negative except what was mentioned in the history of present illness. PHYSICAL EXAMINATION: VITAL SIGNS: Blood pressure at time of arrival to the hospital was 110/60, pulse of 78, respirations of 18, temperature 97.9 degrees Fahrenheit, and O2 saturation 98% on room air. GENERAL: The patient is a very unfortunate 77-year-old gentleman, seen in Cardiology consultation at request of Dr. Head. HEENT: Atraumatic and normocephalic. Anicteric. Pupils are equal, round, and reactive to light and accommodation. Extraocular muscles intact. NECK: JVP is less than 5 cm. No carotid bruit. Carotid upstrokes 2+ bilaterally. CARDIOVASCULAR: Normal S1 and S2. Regular rate and rhythm. No murmurs, gallops, or rubs. PMI is at fourth intercostal space in the midclavicular line. LUNGS: Clear to auscultation bilaterally. ABDOMEN: Soft, nontender, and nondistended. No hepatosplenomegaly. Positive bowel sounds. EXTREMITIES: No evidence of edema, clubbing, or cyanosis. LABORATORY AND DIAGNOSTIC DATA: WBC is 9.8, hemoglobin 10.6, hematocrit 34.4, and platelet count is 291. Sodium is 139, potassium is 4.5, chloride 101, bicarbonate 30, BUN of 88, creatinine 4.7, glucose is 163, and calcium is 8.9. Troponin I was 0.028. ProBNP was 1228. Chest x-ray showed no acute cardiopulmonary disease. Echocardiogram shows sinus rhythm at a rate of 55 with normal left ventricular size and LVEF of about 50. ASSESSMENT AND PLAN: The patient is a very unfortunate 77-year-old gentleman, seen in Cardiology consultation at request of Dr. Head. 1. Noncardiac chest pain. The patient's initial arrival to the hospital was for a dark material emesis in between the symptoms of nausea or vomiting. He also had a chest pain. A 12-lead electrocardiogram did not show any evidence of ischemia. 2. We would like to obtain 2D echocardiography to assess left ventricular systolic function. 3. End-stage renal disease, on hemodialysis. 4. History of hypertension. I would like to thank, Dr. Head, for allowing me to participate in the care of this patient. Everett Duran M.D. DR: ERMELINDA JOB#: [id number] CC:
--- NOTE | 2017-05-10 10:51 | GI Progress Note ---
Assessment/Plan Problems: (1) Anemia ICD Codes: D64.9 - Anemia, unspecified SNOMED: 978522031 (2) Duodenal ulcer ICD Codes: K26.9 - Duodenal ulcer, unspecified as acute or chronic, without hemorrhage or perforation SNOMED: 67278042 (3) Coffee ground emesis ICD Codes: K92.0 - Hematemesis SNOMED: 57600901, 647942012 Status: stable Status Narrative Discussed with Dr. Campos. Assessment/Plan s/p EGD SUMMARY FINDINGS: 1. Duodenal ulcer without adherent clot or visible vessel. 2. Duodenitis. PLAN: resume diet. Monitor hemoglobin and hematocrit and transfuse as needed. Send serology for H. pylori. Follow up biopsy results for H. pylori and treat if it is positive. Start the patient on PPI daily. >> Rx [id number] written and given to RNmagda as outpatient The patient was seen and examined at bedside and all new and available data was reviewed in the patients chart. I agree with the above findings, impression and plan. (Patient seen earlier today. Signature stamp does not reflect patient encounter time.). - Amarilis Campos MD Subjective Subjective limited Objective Last 24 Hour Vital Signs Date Time Temp Pulse Resp B/P (MAP) Pulse Ox O2 Delivery O2 Flow Rate FiO2 05/10/17 09:23 72 113/57 05/10/17 08:00 97.5 72 18 113/57 96 Room Air 05/10/17 04:00 76 20 102/61 93 Room Air 05/10/17 04:00 82 05/10/17 00:00 98.4 78 20 112/63 96 Room Air 05/10/17 00:00 76 05/09/17 20:00 97.7 71 20 134/68 99 Room Air 05/09/17 20:00 80 05/09/17 19:59 Room Air 05/09/17 16:30 Room Air 05/09/17 16:00 98.7 87 18 111/68 95 Room Air 05/09/17 16:00 78 05/09/17 12:00 97.5 66 18 106/60 100 Room Air 05/09/17 12:00 65 Intake and Output 05/09/17 05/10/17 19:00 07:00 Intake Total 690 ml 525 ml Output Total 350 ml 2450 ml Balance 340 ml -1925 ml Intake Oral 240 ml 300 ml IV Total 450 ml 225 ml Output Urine Total 350 ml 450 ml Hemodialysis UF 2000 ml Estimated Blood Loss 0 ml # Bowel Movements 1 Laboratory Tests Test 05/10/17 05:30 White Blood Count 6.6 K/UL (4.8-10.8) Red Blood Count 2.29 M/UL (4.70-6.10) L Hemoglobin 7.0 G/DL (14.2-18.0) L Hematocrit 21.7 % (42.0-52.0) L Mean Corpuscular Volume 95 FL (80-99) Mean Corpuscular Hemoglobin 30.5 PG (27.0-31.0) Mean Corpuscular Hemoglobin Concent 32.2 G/DL (32.0-36.0) Red Cell Distribution Width 14.5 % (11.6-14.8) Platelet Count 244 K/UL (150-450) Mean Platelet Volume 5.5 FL (6.5-10.1) L Neutrophils (%) (Auto) % (45.0-75.0) Lymphocytes (%) (Auto) % (20.0-45.0) Monocytes (%) (Auto) % (1.0-10.0) Eosinophils (%) (Auto) % (0.0-3.0) Basophils (%) (Auto) % (0.0-2.0) Differential Total Cells Counted 100 Neutrophils % (Manual) 71 % (45-75) Lymphocytes % (Manual) 19 % (20-45) L Monocytes % (Manual) 6 % (1-10) Eosinophils % (Manual) 4 % (0-3) H Basophils % (Manual) 0 % (0-2) Band Neutrophils 0 % (0-8) Platelet Estimate Adequate Platelet Morphology Normal Polychromasia 1+ Hypochromasia 1+ Sodium Level 139 MMOL/L (136-145) Potassium Level 4.2 MMOL/L (3.5-5.1) Chloride Level 100 MMOL/L (98-107) Carbon Dioxide Level 33 MMOL/L (21-32) H Anion Gap 6 mmol/L (5-15) Blood Urea Nitrogen 82 mg/dL (7-18) H Creatinine 4.7 MG/DL (0.55-1.30) H Estimat Glomerular Filtration Rate mL/min (>60) Glucose Level 125 MG/DL (74-106) H Uric Acid 4.6 MG/DL (2.6-7.2) Calcium Level 8.5 MG/DL (8.5-10.1) Phosphorus Level 3.4 MG/DL (2.5-4.9) Magnesium Level 1.8 MG/DL (1.8-2.4) Total Bilirubin 0.2 MG/DL (0.2-1.0) Aspartate Amino Transf (AST/SGOT) 18 U/L (15-37) Alanine Aminotransferase (ALT/SGPT) 26 U/L (12-78) Alkaline Phosphatase 64 U/L (46-116) C-Reactive Protein, Quantitative < 0.4 mg/dL (0.00-0.90) Pro-B-Type Natriuretic Peptide 621 pg/mL (0-125) H Total Protein 5.4 G/DL (6.4-8.2) L Albumin 2.8 G/DL (3.4-5.0) L Globulin 2.6 g/dL Albumin/Globulin Ratio 1.1 (1.0-2.7) Helicobacter pylori IgG Antibody Pending Height (Feet): 5 Height (Inches): 8.00 Weight (Pounds): 178 General Appearance: WD/WN, no apparent distress, alert Cardiovascular: normal rate Respiratory/Chest: normal breath sounds, no respiratory distress Abdominal Exam: normal bowel sounds, non tender, soft Extremities: non-tender Doreen Angel N.Vee May 10, 2017 10:51 ALDEN CAMPOS May 11, 2017 09:16
[2017-05-10] MEDS ORDERED: Tubing IV Secondary IV ONE (16:21)
[2017-05-10] MEDS ORDERED: NS 500ML ONE (16:21)
--- NOTE | 2017-05-10 17:59 | General Progress Note ---
Assessment/Plan Assessment/Plan ASSESSMENT AND RECOMMENDATIONS: 1. Anemia secondary to chronic disease. Continue to closely monitor. Transfuse if below 7.5 2. Decreased hemoglobin and hematocrit. Rule out gastrointestinal bleed. Occult blood is pending. 3. Psychiatric disorder, seen by Psychiatry Service. 4. End-stage renal disease, on hemodialysis three times a week. 5. Diabetes mellitus. Continue to closely monitor. Blood sugar goal between 80 and 120. 6. Hypertension. Currently, blood pressure is better controlled. Subjective Allergies: Coded Allergies: No Known Allergies (Unverified , 11/12/12) All Systems: reviewed and negative except above Subjective no fevers Objective Last 24 Hour Vital Signs Date Time Temp Pulse Resp B/P (MAP) Pulse Ox O2 Delivery O2 Flow Rate FiO2 05/10/17 16:00 98.1 73 18 132/69 97 Room Air 05/10/17 15:05 97.9 05/10/17 12:00 97.9 72 18 125/62 98 Room Air 05/10/17 12:00 88 05/10/17 09:23 72 113/57 05/10/17 08:00 73 05/10/17 08:00 97.5 72 18 113/57 96 Room Air 05/10/17 04:00 76 20 102/61 93 Room Air 05/10/17 04:00 82 05/10/17 00:00 98.4 78 20 112/63 96 Room Air 05/10/17 00:00 76 05/09/17 20:00 97.7 71 20 134/68 99 Room Air 05/09/17 20:00 80 05/09/17 19:59 Room Air Intake and Output 05/09/17 05/10/17 19:00 07:00 Intake Total 690 ml 525 ml Output Total 350 ml 2450 ml Balance 340 ml -1925 ml Intake Oral 240 ml 300 ml IV Total 450 ml 225 ml Output Urine Total 350 ml 450 ml Hemodialysis UF 2000 ml Estimated Blood Loss 0 ml # Bowel Movements 1 Laboratory Tests 05/10/17 05:30: White Blood Count 6.6, Red Blood Count 2.29L, Hemoglobin 7.0L, Hematocrit 21.7L , Mean Corpuscular Volume 95, Mean Corpuscular Hemoglobin 30.5, Mean Corpuscular Hemoglobin Concent 32.2, Red Cell Distribution Width 14.5, Platelet Count 244, Mean Platelet Volume 5.5L, Neutrophils (%) (Auto) , Lymphocytes (%) ( Auto) , Monocytes (%) (Auto) , Eosinophils (%) (Auto) , Basophils (%) (Auto) , Differential Total Cells Counted 100, Neutrophils % (Manual) 71, Lymphocytes % ( Manual) 19L, Monocytes % (Manual) 6, Eosinophils % (Manual) 4H, Basophils % ( Manual) 0, Band Neutrophils 0, Platelet Estimate Adequate, Platelet Morphology Normal, Polychromasia 1+, Hypochromasia 1+, Sodium Level 139, Potassium Level 4.2, Chloride Level 100, Carbon Dioxide Level 33H, Anion Gap 6, Blood Urea Nitrogen 82H, Creatinine 4.7H, Estimat Glomerular Filtration Rate , Glucose Level 125H, Uric Acid 4.6, Calcium Level 8.5, Phosphorus Level 3.4, Magnesium Level 1.8, Total Bilirubin 0.2, Aspartate Amino Transf (AST/SGOT) 18, Alanine Aminotransferase (ALT/SGPT) 26, Alkaline Phosphatase 64, C-Reactive Protein, Quantitative < 0.4, Pro-B-Type Natriuretic Peptide 621H, Total Protein 5.4L, Albumin 2.8L, Globulin 2.6, Albumin/Globulin Ratio 1.1, Helicobacter pylori IgG Antibody [Pending] Height (Feet): 5 Height (Inches): 8.00 Weight (Pounds): 178 General Appearance: no apparent distress EENT: normal ENT inspection Neck: normal alignment Cardiovascular: normal peripheral pulses Abdomen: normal bowel sounds 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
[2017-05-10] MEDS: TraZODone 100mg tab ORAL SCH (20:20)
[2017-05-10] MEDS: Morphine Sulfate 2mg/ml Inj IVP PRN (20:33)
--- NOTE | 2017-05-10 20:57 | General Progress Note ---
Assessment/Plan Problem List: (1) Chest pain ICD Codes: R07.9 - Chest pain SNOMED: 98072424 (2) Coffee ground emesis ICD Codes: K92.0 - Hematemesis SNOMED: 63928150, 330790886 (3) ESRD (end stage renal disease) on dialysis ICD Codes: N18.6 - End stage renal disease; Z99.2 - Dependence on renal dialysis SNOMED: 249193229 (4) Duodenal ulcer ICD Codes: K26.9 - Duodenal ulcer, unspecified as acute or chronic, without hemorrhage or perforation SNOMED: 60473947 (5) Anemia ICD Codes: D64.9 - Anemia, unspecified SNOMED: 677246257 Status: progressing Assessment/Plan pud on endoscopy esrd on hd chest pain r/o acs neg trop afebrile Subjective ROS Limited/Unobtainable: Yes Allergies: Coded Allergies: No Known Allergies (Unverified , 11/12/12) Objective Last 24 Hour Vital Signs Date Time Temp Pulse Resp B/P (MAP) Pulse Ox O2 Delivery O2 Flow Rate FiO2 05/10/17 19:28 97.9 76 20 134/65 96 Room Air 77 77 05/10/17 18:12 73 132/69 05/10/17 16:00 73 05/10/17 16:00 98.1 73 18 132/69 97 Room Air 05/10/17 15:05 97.9 05/10/17 12:00 97.9 72 18 125/62 98 Room Air 05/10/17 12:00 88 05/10/17 09:23 72 113/57 05/10/17 08:00 73 05/10/17 08:00 97.5 72 18 113/57 96 Room Air 05/10/17 04:00 76 20 102/61 93 Room Air 05/10/17 04:00 82 05/10/17 00:00 98.4 78 20 112/63 96 Room Air 05/10/17 00:00 76 Intake and Output 05/09/17 05/10/17 19:00 07:00 Intake Total 690 ml 525 ml Output Total 350 ml 2450 ml Balance 340 ml -1925 ml Intake Oral 240 ml 300 ml IV Total 450 ml 225 ml Output Urine Total 350 ml 450 ml Hemodialysis UF 2000 ml Estimated Blood Loss 0 ml # Bowel Movements 1 Laboratory Tests 05/10/17 05:30: White Blood Count 6.6, Red Blood Count 2.29L, Hemoglobin 7.0L, Hematocrit 21.7L , Mean Corpuscular Volume 95, Mean Corpuscular Hemoglobin 30.5, Mean Corpuscular Hemoglobin Concent 32.2, Red Cell Distribution Width 14.5, Platelet Count 244, Mean Platelet Volume 5.5L, Neutrophils (%) (Auto) , Lymphocytes (%) ( Auto) , Monocytes (%) (Auto) , Eosinophils (%) (Auto) , Basophils (%) (Auto) , Differential Total Cells Counted 100, Neutrophils % (Manual) 71, Lymphocytes % ( Manual) 19L, Monocytes % (Manual) 6, Eosinophils % (Manual) 4H, Basophils % ( Manual) 0, Band Neutrophils 0, Platelet Estimate Adequate, Platelet Morphology Normal, Polychromasia 1+, Hypochromasia 1+, Sodium Level 139, Potassium Level 4.2, Chloride Level 100, Carbon Dioxide Level 33H, Anion Gap 6, Blood Urea Nitrogen 82H, Creatinine 4.7H, Estimat Glomerular Filtration Rate , Glucose Level 125H, Uric Acid 4.6, Calcium Level 8.5, Phosphorus Level 3.4, Magnesium Level 1.8, Total Bilirubin 0.2, Aspartate Amino Transf (AST/SGOT) 18, Alanine Aminotransferase (ALT/SGPT) 26, Alkaline Phosphatase 64, C-Reactive Protein, Quantitative < 0.4, Pro-B-Type Natriuretic Peptide 621H, Total Protein 5.4L, Albumin 2.8L, Globulin 2.6, Albumin/Globulin Ratio 1.1, Helicobacter pylori IgG Antibody [Pending] Height (Feet): 5 Height (Inches): 8.00 Weight (Pounds): 178 Neck: supple Cardiovascular: normal rate Respiratory/Chest: lungs clear Abdomen: soft Samantha Head MD May 10, 2017 20:57
[2017-05-11 03:29] VITALS: BP 129/65
[2017-05-11 06:51] LABS: MEAN CORPUSCULAR HEMOGLOBIN 30.3 PG (27.0-31.0); MEAN CORPUSCULAR HGB CONC 31.6 G/DL (32.0-36.0); MEAN CORPUSCULAR VOLUME 96 FL (80-99); MEAN PLATELET VOLUME 6.1 FL (6.5-10.1); PLATELET COUNT 256 K/UL (150-450); RED BLOOD COUNT 2.58 M/UL (4.70-6.10); RED CELL DISTRIBUTION WIDTH 16.7 % (11.6-14.8); WHITE BLOOD COUNT 6.4 K/UL (4.8-10.8)
[2017-05-11 07:16] LABS: ALANINE AMINOTRANSFERASE 36 U/L (12-78); ANION GAP 11 mmol/L (5-15); ASPARTATE AMINO TRANSFERASE 34 U/L (15-37); CALCIUM 7.7 MG/DL (8.5-10.1); CARBON DIOXIDE 26 MMOL/L (21-32); CHLORIDE 101 MMOL/L (98-107); CREATININE 5.7 MG/DL (0.55-1.30); PHOSPHORUS 3.9 MG/DL (2.5-4.9); POTASSIUM 4.2 MMOL/L (3.5-5.1); SODIUM 138 MMOL/L (136-145); TOTAL PROTEIN 5.5 G/DL (6.4-8.2)
[2017-05-11 08:00] VITALS: BP 105/64
--- NOTE | 2017-05-11 08:09 | Wound Care Consultation ---
Wound Assessment Wound Assessment #1: Wound Number: 1 Wound Present on Admission: Yes New Wound: No Status Change of Wound: No Wound Location Body Site Modif: right Wound Location Body Site: sacral Wound Type: pressure ulcer Karlos Test: Does not Karlos Pressure Ulcer Stage: II - scattered Wound Thickness: Partial Thickness Wound Length: 3.0 Wound Width: 3.5 Wound Depth: 0.1 Percent of Wound [place]/Red: 100 Wound Drainage Description: Serosanguineous Wound Drainage Amount: Scant Wound Drainage Odor: None/Absent Tissue Surrounding Wound: Erythemic - Deep red Wound General Appearance: Reddened, Draining Wound Assessment #2: Wound Number: 2 Wound Present on Admission: Yes New Wound: No Status Change of Wound: No Wound Location Body Site Modif: left Wound Location Body Site: buttocks Wound Type: pressure ulcer Karlos Test: Does not Karlos Pressure Ulcer Stage: II Wound Thickness: Partial Thickness Wound Length: 1.8 Wound Width: 1.8 Wound Depth: 0.1 Percent of Wound [place]/Red: 100 Wound Drainage Description: Serosanguineous Wound Drainage Amount: Scant Wound Drainage Odor: None/Absent Tissue Surrounding Wound: Erythemic - deep red SDTI Wound General Appearance: Reddened, Draining Wound Assessment #3: Wound Number: 3 Wound Present on Admission: Yes New Wound: No Status Change of Wound: No Wound Location Body Site Modif: mid Wound Location Body Site: coccyx Wound Type: pressure ulcer Karlos Test: Does not Karlos Pressure Ulcer Stage: I Wound Length: 2.5 Wound Width: 2.5 Percent of Wound [place]/Red: 100 Wound Drainage Amount: None Wound Drainage Odor: None/Absent Tissue Surrounding Wound: Intact Wound General Appearance: Reddened Wound Assessment #4: Wound Number: 4 Wound Present on Admission: Yes New Wound: No Status Change of Wound: No Wound Location Body Site: perineal area Wound Type: chemical burn Karlos Test: Does not Karlos Percent of Wound [place]/Red: 100 Wound Drainage Amount: None Wound Drainage Odor: None/Absent Tissue Surrounding Wound: Erythemic Wound General Appearance: Reddened Wound Comment #1 Right Sacral area stage II pressure ulcer. #2 Coccygeal area stage I pressure ulcer #3 Left buttock stage II pressure ulcer. Surrounding area SDTI extending to left sacral. #4 Chemical burn on perineal area Recommendation -Local wound care per protocol -Keep clean and dry -Turn and reposition -Optimize nutrition -Low air loss mattress -Heel protector on both heels -Offload both heels -Assess and f/u accordingly for any changes DEIRDRE MALLOY RN May 11, 2017 08:09
[2017-05-11] MEDS: Morphine Sulfate 2mg/ml Inj IVP PRN (09:09)
[2017-05-11] MEDS: Allopurinol 100mg Tab ORAL SCH (09:09)
[2017-05-11] MEDS: Labetalol 200mg tab ORAL SCH (09:09)
--- NOTE | 2017-05-11 10:08 | General Progress Note ---
Assessment/Plan Assessment/Plan ASSESSMENT AND RECOMMENDATIONS: 1. Anemia secondary to chronic disease. Continue to closely monitor. Transfuse if below 7.5 --> s/p transfusion --> monitor for any signs of bleeding --> egd shows duodenal ulcer 2. Psychiatric disorder, seen by Psychiatry Service. 3. End-stage renal disease, on hemodialysis three times a week. 4. Diabetes mellitus. Continue to closely monitor. Blood sugar goal between 80 and 120. 5. Hypertension. Currently, blood pressure is better controlled. Subjective Constitutional: Reports: weakness Hematologic/Lymphatic: Reports: anemia Allergies: Coded Allergies: No Known Allergies (Unverified , 11/12/12) All Systems: reviewed and negative except above Subjective H/H better, post transfusion, no fevers Objective Last 24 Hour Vital Signs Date Time Temp Pulse Resp B/P (MAP) Pulse Ox O2 Delivery O2 Flow Rate FiO2 05/11/17 09:09 75 132/69 05/11/17 08:00 97.0 76 19 105/64 93 Room Air 05/11/17 04:00 71 05/11/17 03:29 97.9 67 20 129/65 94 Room Air 71 72 05/11/17 00:00 67 05/10/17 23:33 97.7 68 20 136/63 93 Room Air 73 70 05/10/17 20:00 79 05/10/17 19:28 97.9 76 20 134/65 96 Room Air 77 77 05/10/17 18:12 73 132/69 05/10/17 16:00 73 05/10/17 16:00 98.1 73 18 132/69 97 Room Air 05/10/17 15:05 97.9 05/10/17 12:00 97.9 72 18 125/62 98 Room Air 05/10/17 12:00 88 Intake and Output 05/10/17 05/11/17 19:00 07:00 Intake Total 360 ml Output Total 150 ml 500 ml Balance 210 ml -500 ml Intake Oral 360 ml IV Total 0 ml Output Urine Total 150 ml 500 ml # Voids 5 # Bowel Movements 2 Laboratory Tests 05/11/17 04:40: White Blood Count 6.4, Red Blood Count 2.58L, Hemoglobin 7.8L, Hematocrit 24.7L , Mean Corpuscular Volume 96, Mean Corpuscular Hemoglobin 30.3, Mean Corpuscular Hemoglobin Concent 31.6L, Red Cell Distribution Width 16.7H, Platelet Count 256, Mean Platelet Volume 6.1L, Neutrophils (%) (Auto) , Lymphocytes (%) (Auto) , Monocytes (%) (Auto) , Eosinophils (%) (Auto) , Basophils (%) (Auto) , Neutrophils % (Manual) [Pending], Lymphocytes % (Manual) [Pending], Platelet Estimate [Pending], Platelet Morphology [Pending], Sodium Level 138, Potassium Level 4.2, Chloride Level 101, Carbon Dioxide Level 26, Anion Gap 11, Blood Urea Nitrogen 84H, Creatinine 5.7H, Estimat Glomerular Filtration Rate , Glucose Level 122H, Calcium Level 7.7L, Phosphorus Level 3.9, Total Bilirubin 0.3, Aspartate Amino Transf (AST/SGOT) 34, Alanine Aminotransferase (ALT/SGPT) 36, Alkaline Phosphatase 69, Total Protein 5.5L, Albumin 2.8L, Globulin 2.7, Albumin/Globulin Ratio 1.0 Height (Feet): 5 Height (Inches): 8.00 Weight (Pounds): 162 General Appearance: no apparent distress EENT: normal ENT inspection Neck: normal alignment Cardiovascular: normal peripheral pulses Respiratory/Chest: chest wall non-tender Edema: 1+ Pedal (L), 1+ Pedal (R) Skin: normal pigmentation Reinaldo Leon May 11, 2017 10:08
[2017-05-11 10:17] LABS: ANISOCYTOSIS 1+; BAND NEUTROPHILS % (MANUAL) 0 % (0-8); BASOPHILS % (MANUAL) 1 % (0-2); EOSINOPHILS % (MANUAL) 10 % (0-3); HYPOCHROMASIA 1+; LYMPHOCYTES % (MANUAL) 19 % (20-45); NEUTROPHILS % (MANUAL) 63 % (45-75); PLATELET ESTIMATE ADEQUATE; PLATELET MORPHOLOGY NORMAL; TOTAL CELLS COUNTED 100
[2017-05-11 12:00] VITALS: BP 110/70
[2017-05-11 12:08] LABS: OTHERS PATHOLOGIST COMMENT
--- NOTE | 2017-05-11 13:21 | GI Progress Note ---
Assessment/Plan Problems: (1) Anemia ICD Codes: D64.9 - Anemia, unspecified SNOMED: 278193036 (2) Duodenal ulcer ICD Codes: K26.9 - Duodenal ulcer, unspecified as acute or chronic, without hemorrhage or perforation SNOMED: 86731043 (3) Coffee ground emesis ICD Codes: K92.0 - Hematemesis SNOMED: 24109254, 757241859 Status: stable Status Narrative Discussed with Dr. Campos. Assessment/Plan s/p EGD SUMMARY FINDINGS: 1. Duodenal ulcer without adherent clot or visible vessel. 2. Duodenitis. PLAN: resume diet. Monitor hemoglobin and hematocrit and transfuse as needed. Send serology for H. pylori. >> negative PPI daily >> Rx [id number] written and given to RNmagda as outpatient The patient was seen and examined at bedside and all new and available data was reviewed in the patients chart. I agree with the above findings, impression and plan. (Patient seen earlier today. Signature stamp does not reflect patient encounter time.). - Amarilis Campos MD Subjective Subjective limited Objective Last 24 Hour Vital Signs Date Time Temp Pulse Resp B/P (MAP) Pulse Ox O2 Delivery O2 Flow Rate FiO2 05/11/17 12:00 96.7 75 18 110/70 93 Room Air 05/11/17 12:00 71 05/11/17 09:39 97.9 05/11/17 09:09 75 132/69 05/11/17 08:00 97.0 76 19 105/64 93 Room Air 05/11/17 08:00 69 05/11/17 04:00 71 05/11/17 03:29 97.9 67 20 129/65 94 Room Air 71 72 05/11/17 00:00 67 05/10/17 23:33 97.7 68 20 136/63 93 Room Air 73 70 05/10/17 20:00 79 05/10/17 19:28 97.9 76 20 134/65 96 Room Air 77 77 05/10/17 18:12 73 132/69 05/10/17 16:00 73 05/10/17 16:00 98.1 73 18 132/69 97 Room Air 05/10/17 15:05 97.9 Intake and Output 05/10/17 05/11/17 19:00 07:00 Intake Total 360 ml Output Total 150 ml 500 ml Balance 210 ml -500 ml Intake Oral 360 ml IV Total 0 ml Output Urine Total 150 ml 500 ml # Voids 5 # Bowel Movements 2 Laboratory Tests Test 05/11/17 04:40 White Blood Count 6.4 K/UL (4.8-10.8) Red Blood Count 2.58 M/UL (4.70-6.10) L Hemoglobin 7.8 G/DL (14.2-18.0) L Hematocrit 24.7 % (42.0-52.0) L Mean Corpuscular Volume 96 FL (80-99) Mean Corpuscular Hemoglobin 30.3 PG (27.0-31.0) Mean Corpuscular Hemoglobin Concent 31.6 G/DL (32.0-36.0) L Red Cell Distribution Width 16.7 % (11.6-14.8) H Platelet Count 256 K/UL (150-450) Mean Platelet Volume 6.1 FL (6.5-10.1) L Neutrophils (%) (Auto) % (45.0-75.0) Lymphocytes (%) (Auto) % (20.0-45.0) Monocytes (%) (Auto) % (1.0-10.0) Eosinophils (%) (Auto) % (0.0-3.0) Basophils (%) (Auto) % (0.0-2.0) Differential Total Cells Counted 100 Neutrophils % (Manual) 63 % (45-75) Lymphocytes % (Manual) 19 % (20-45) L Monocytes % (Manual) 7 % (1-10) Eosinophils % (Manual) 10 % (0-3) H Basophils % (Manual) 1 % (0-2) Band Neutrophils 0 % (0-8) Platelet Estimate Adequate Platelet Morphology Normal Hypochromasia 1+ Anisocytosis 1+ Sodium Level 138 MMOL/L (136-145) Potassium Level 4.2 MMOL/L (3.5-5.1) Chloride Level 101 MMOL/L (98-107) Carbon Dioxide Level 26 MMOL/L (21-32) Anion Gap 11 mmol/L (5-15) Blood Urea Nitrogen 84 mg/dL (7-18) H Creatinine 5.7 MG/DL (0.55-1.30) H Estimat Glomerular Filtration Rate mL/min (>60) Glucose Level 122 MG/DL (74-106) H Calcium Level 7.7 MG/DL (8.5-10.1) L Phosphorus Level 3.9 MG/DL (2.5-4.9) Total Bilirubin 0.3 MG/DL (0.2-1.0) Aspartate Amino Transf (AST/SGOT) 34 U/L (15-37) Alanine Aminotransferase (ALT/SGPT) 36 U/L (12-78) Alkaline Phosphatase 69 U/L (46-116) Total Protein 5.5 G/DL (6.4-8.2) L Albumin 2.8 G/DL (3.4-5.0) L Globulin 2.7 g/dL Albumin/Globulin Ratio 1.0 (1.0-2.7) Height (Feet): 5 Height (Inches): 8.00 Weight (Pounds): 162 General Appearance: WD/WN, no apparent distress, alert Cardiovascular: normal rate Respiratory/Chest: normal breath sounds, no respiratory distress Abdominal Exam: normal bowel sounds, non tender, soft Extremities: normal range of motion, non-tender Doreen Angel N.PShaun May 11, 2017 13:21 ALDEN CAMPOS May 15, 2017 08:12
--- NOTE | 2017-05-11 14:25 | Nephrology Progress Note ---
Assessment/Plan Problem List: (1) ESRD (end stage renal disease) on dialysis (2) Coffee ground emesis Assessment ESRD- ACS- DM- HTN- coffee ground vomiting H&H low , DU Plan Plan: HD today transfuse hold ASA protonix drip Per cardiology keep BP and BS in check Subjective ROS Limited/Unobtainable: No Constitutional: Reports: malaise Objective Objective Last 24 Hour Vital Signs Date Time Temp Pulse Resp B/P (MAP) Pulse Ox O2 Delivery O2 Flow Rate FiO2 05/11/17 12:00 96.7 75 18 110/70 93 Room Air 05/11/17 12:00 71 05/11/17 09:39 97.9 05/11/17 09:09 75 132/69 05/11/17 08:00 97.0 76 19 105/64 93 Room Air 05/11/17 08:00 69 05/11/17 04:00 71 05/11/17 03:29 97.9 67 20 129/65 94 Room Air 71 72 05/11/17 00:00 67 05/10/17 23:33 97.7 68 20 136/63 93 Room Air 73 70 05/10/17 20:00 79 05/10/17 19:28 97.9 76 20 134/65 96 Room Air 77 77 05/10/17 18:12 73 132/69 05/10/17 16:00 73 05/10/17 16:00 98.1 73 18 132/69 97 Room Air 05/10/17 15:05 97.9 Intake and Output 05/10/17 05/11/17 19:00 07:00 Intake Total 360 ml Output Total 150 ml 500 ml Balance 210 ml -500 ml Intake Oral 360 ml IV Total 0 ml Output Urine Total 150 ml 500 ml # Voids 5 # Bowel Movements 2 Laboratory Tests 05/11/17 04:40: White Blood Count 6.4, Red Blood Count 2.58L, Hemoglobin 7.8L, Hematocrit 24.7L , Mean Corpuscular Volume 96, Mean Corpuscular Hemoglobin 30.3, Mean Corpuscular Hemoglobin Concent 31.6L, Red Cell Distribution Width 16.7H, Platelet Count 256, Mean Platelet Volume 6.1L, Neutrophils (%) (Auto) , Lymphocytes (%) (Auto) , Monocytes (%) (Auto) , Eosinophils (%) (Auto) , Basophils (%) (Auto) , Differential Total Cells Counted 100, Neutrophils % ( Manual) 63, Lymphocytes % (Manual) 19L, Monocytes % (Manual) 7, Eosinophils % ( Manual) 10H, Basophils % (Manual) 1, Band Neutrophils 0, Platelet Estimate Adequate, Platelet Morphology Normal, Hypochromasia 1+, Anisocytosis 1+, Sodium Level 138, Potassium Level 4.2, Chloride Level 101, Carbon Dioxide Level 26, Anion Gap 11, Blood Urea Nitrogen 84H, Creatinine 5.7H, Estimat Glomerular Filtration Rate , Glucose Level 122H, Calcium Level 7.7L, Phosphorus Level 3.9, Total Bilirubin 0.3, Aspartate Amino Transf (AST/SGOT) 34, Alanine Aminotransferase (ALT/SGPT) 36, Alkaline Phosphatase 69, Total Protein 5.5L, Albumin 2.8L, Globulin 2.7, Albumin/Globulin Ratio 1.0 Height (Feet): 5 Height (Inches): 8.00 Weight (Pounds): 162 General Appearance: no apparent distress Objective no change CARMEN RAE May 11, 2017 14:25
[2017-05-11 16:00] VITALS: BP 133/78
--- NOTE | 2017-05-11 16:41 | General Progress Note ---
Assessment/Plan Status: stable, progressing Subjective Date patient seen: May 10, 2017 Neurologic/Psychiatric: Reports: anxiety, depressed, emotional problems Allergies: Coded Allergies: No Known Allergies (Unverified , 11/12/12) Objective Last 24 Hour Vital Signs Date Time Temp Pulse Resp B/P (MAP) Pulse Ox O2 Delivery O2 Flow Rate FiO2 05/11/17 16:00 97.7 97 20 133/78 94 Room Air 05/11/17 14:40 Room Air 05/11/17 12:00 96.7 75 18 110/70 93 Room Air 05/11/17 12:00 71 05/11/17 09:39 97.9 05/11/17 09:09 75 132/69 05/11/17 08:00 97.0 76 19 105/64 93 Room Air 05/11/17 08:00 69 05/11/17 04:00 71 05/11/17 03:29 97.9 67 20 129/65 94 Room Air 71 72 05/11/17 00:00 67 05/10/17 23:33 97.7 68 20 136/63 93 Room Air 73 70 05/10/17 20:00 79 05/10/17 19:28 97.9 76 20 134/65 96 Room Air 77 77 05/10/17 18:12 73 132/69 Intake and Output 05/10/17 05/11/17 19:00 07:00 Intake Total 360 ml Output Total 150 ml 500 ml Balance 210 ml -500 ml Intake Oral 360 ml IV Total 0 ml Output Urine Total 150 ml 500 ml # Voids 5 # Bowel Movements 2 Laboratory Tests 05/11/17 04:40: White Blood Count 6.4, Red Blood Count 2.58L, Hemoglobin 7.8L, Hematocrit 24.7L , Mean Corpuscular Volume 96, Mean Corpuscular Hemoglobin 30.3, Mean Corpuscular Hemoglobin Concent 31.6L, Red Cell Distribution Width 16.7H, Platelet Count 256, Mean Platelet Volume 6.1L, Neutrophils (%) (Auto) , Lymphocytes (%) (Auto) , Monocytes (%) (Auto) , Eosinophils (%) (Auto) , Basophils (%) (Auto) , Differential Total Cells Counted 100, Neutrophils % ( Manual) 63, Lymphocytes % (Manual) 19L, Monocytes % (Manual) 7, Eosinophils % ( Manual) 10H, Basophils % (Manual) 1, Band Neutrophils 0, Platelet Estimate Adequate, Platelet Morphology Normal, Hypochromasia 1+, Anisocytosis 1+, Sodium Level 138, Potassium Level 4.2, Chloride Level 101, Carbon Dioxide Level 26, Anion Gap 11, Blood Urea Nitrogen 84H, Creatinine 5.7H, Estimat Glomerular Filtration Rate , Glucose Level 122H, Calcium Level 7.7L, Phosphorus Level 3.9, Total Bilirubin 0.3, Aspartate Amino Transf (AST/SGOT) 34, Alanine Aminotransferase (ALT/SGPT) 36, Alkaline Phosphatase 69, Total Protein 5.5L, Albumin 2.8L, Globulin 2.7, Albumin/Globulin Ratio 1.0 Height (Feet): 5 Height (Inches): 8.00 Weight (Pounds): 162 General Appearance: no apparent distress, alert Neurologic: alert, oriented x 3, responsive, depressed affect Chely Kulkarni M.D. May 11, 2017 16:41
--- NOTE | 2017-05-11 18:17 | Progress Note ---
DATE: 05/11/2017 SUBJECTIVE: The patient is engaged. Alert and oriented times self, place, and situation he is in. Mood is dysphoric. Affect is constricted. Congruent with mood. Thought process is concrete. Thought content, no suicidal or homicidal ideations. The patient is having depressive symptoms. MENTAL STATUS EXAMINATION: The patient is alert and oriented times self, place, and situation. Mood is depressed. Affect is constricted. Congruent with mood. Thought process is concrete. Thought content, no suicidal or homicidal ideations. ASSESSMENT: Major depressive disorder. PLAN: 1. The patient will be continued with current medication. 2. Provide the patient with supportive therapy and reality orientation. Chely Kulkarni M.D. DR: LEOBARDO JOB#: [id number] CC:
[2017-05-11 20:00] VITALS: BP 153/90
--- NOTE | 2017-05-11 20:46 | General Progress Note ---
Assessment/Plan Problem List: (1) Chest pain ICD Codes: R07.9 - Chest pain SNOMED: 04186246 (2) Coffee ground emesis ICD Codes: K92.0 - Hematemesis SNOMED: 63610095, 104597988 (3) ESRD (end stage renal disease) on dialysis ICD Codes: N18.6 - End stage renal disease; Z99.2 - Dependence on renal dialysis SNOMED: 570653133 (4) Duodenal ulcer ICD Codes: K26.9 - Duodenal ulcer, unspecified as acute or chronic, without hemorrhage or perforation SNOMED: 07217441 (5) Anemia ICD Codes: D64.9 - Anemia, unspecified SNOMED: 116985323 Status: progressing Assessment/Plan cleared by gi wants to go home so dc him dc home after diaylsis Subjective Allergies: Coded Allergies: No Known Allergies (Unverified , 11/12/12) Objective Last 24 Hour Vital Signs Date Time Temp Pulse Resp B/P (MAP) Pulse Ox O2 Delivery O2 Flow Rate FiO2 05/11/17 17:45 Room Air 05/11/17 16:00 97.7 97 20 133/78 94 Room Air 05/11/17 14:40 Room Air 05/11/17 12:00 96.7 75 18 110/70 93 Room Air 05/11/17 12:00 71 05/11/17 09:39 97.9 05/11/17 09:09 75 132/69 05/11/17 08:00 97.0 76 19 105/64 93 Room Air 05/11/17 08:00 69 05/11/17 04:00 71 05/11/17 03:29 97.9 67 20 129/65 94 Room Air 71 72 05/11/17 00:00 67 05/10/17 23:33 97.7 68 20 136/63 93 Room Air 73 70 Intake and Output 05/10/17 05/11/17 19:00 07:00 Intake Total 360 ml Output Total 150 ml 500 ml Balance 210 ml -500 ml Intake Oral 360 ml IV Total 0 ml Output Urine Total 150 ml 500 ml # Voids 5 # Bowel Movements 2 Laboratory Tests 05/11/17 04:40: White Blood Count 6.4, Red Blood Count 2.58L, Hemoglobin 7.8L, Hematocrit 24.7L , Mean Corpuscular Volume 96, Mean Corpuscular Hemoglobin 30.3, Mean Corpuscular Hemoglobin Concent 31.6L, Red Cell Distribution Width 16.7H, Platelet Count 256, Mean Platelet Volume 6.1L, Neutrophils (%) (Auto) , Lymphocytes (%) (Auto) , Monocytes (%) (Auto) , Eosinophils (%) (Auto) , Basophils (%) (Auto) , Differential Total Cells Counted 100, Neutrophils % ( Manual) 63, Lymphocytes % (Manual) 19L, Monocytes % (Manual) 7, Eosinophils % ( Manual) 10H, Basophils % (Manual) 1, Band Neutrophils 0, Platelet Estimate Adequate, Platelet Morphology Normal, Hypochromasia 1+, Anisocytosis 1+, Sodium Level 138, Potassium Level 4.2, Chloride Level 101, Carbon Dioxide Level 26, Anion Gap 11, Blood Urea Nitrogen 84H, Creatinine 5.7H, Estimat Glomerular Filtration Rate , Glucose Level 122H, Calcium Level 7.7L, Phosphorus Level 3.9, Total Bilirubin 0.3, Aspartate Amino Transf (AST/SGOT) 34, Alanine Aminotransferase (ALT/SGPT) 36, Alkaline Phosphatase 69, Total Protein 5.5L, Albumin 2.8L, Globulin 2.7, Albumin/Globulin Ratio 1.0 Height (Feet): 5 Height (Inches): 8.00 Weight (Pounds): 162 Samantha Head MD May 11, 2017 20:46
[2017-05-11] MEDS: Epogen (for ESRD on dialysis) SUBQ SCH (20:49)
[2017-05-11] MEDS ORDERED: Tubing IV Secondary IV ONE (21:29)
[2017-05-11] MEDS ORDERED: NS 500ML ONE (21:29)
--- NOTE | 2017-05-16 13:31 | Discharge Summary ---
Discharge Summary Hospital Course Date of Admission May 08, 2017 at 14:03 Date of Discharge May 11, 2017 at 21:30 Admitting Diagnosis ACUTE CORONARY SYNDROME HPI Micheal Hernandez is a 77 year old male who was admitted on May 08, 2017 at 14: 03 for Acute Coronary Syndrome Hospital Course dc summary #[id number] Discharge Medications Continued Medications: Allopurinol* (Allopurinol*) 100 Mg Tablet 100 MG ORAL DAILY, TAB Esomeprazole Magnesium (Nexium) 40 Mg Capsule.dr 40 MG ORAL DAILY Hydrocodone/Acetaminophen 5-325* ([place] 5-325*) 1 Ea Tab 1 TAB ORAL NEEDED, TAB Insulin Glargine,Hum.rec.anlog (Lantus) 100 Unit/1 Ml Cartridge 0 SUBQ BEDTIME, #1 EA Insulin Regular, Human (Humulin R) 100 Unit/1 Ml Vial 10 SUBQ AC+HS Labetalol Hcl* (Normodyne*) 200 Mg Tablet 200 MG ORAL TWICE A DAY, #20 TAB Lorazepam* (Ativan*) 2 Mg Tablet 2 MG ORAL NEEDED Multivitamin (Multi Vitamin Daily) 1 Each Tablet 1 EACH PO DAILY [place]-3 Fatty Acids/Fish Oil ([place] 3 Fish Oil Softgel) 1 Each Capsule.dr 1 EACH PO DAILY Rosuvastatin Calcium (Crestor) 10 Mg Tab 40 MG ORAL DAILY Sennosides (Senna) 8.6 Mg Capsule 8.6 MG PO NEEDED Sertraline Hcl* (Zoloft*) 100 Mg Tablet 100 MG ORAL DAILY, TAB Trazodone Hcl* (Desyrel*) 100 Mg Tablet 100 MG ORAL BEDTIME, TAB Trimethoprim/Sulfamethoxazole (Bactrim Ds Tablet) 1 Ea Tab 2 TAB ORAL FOUR TIMES A DAY Zolpidem Tartrate* (Ambien*) 5 Mg Tablet 5 MG ORAL BEDTIME Discharge Condition Upon Discharge: stable Discharge Disposition Patient was discharged to Home with Home Health(06) Discharge Diagnoses: Discharge Instructions Discharge Instructions Special Instructions I have been assigned to complete a D/C Summary on this account. I was not involved in the patient management Cecelia Olivas NP ([place]) May 16, 2017 13:31
--- NOTE | 2017-05-16 16:45 | Discharge Summary 2 SIG ---
DATE OF ADMISSION: 05/08/2017 DATE OF DISCHARGE: 05/11/2017 REASON FOR ADMISSION: 77-year-old male presented to emergency room complaining of the chest pain, which started at rest. The patient also had intractable nausea and vomiting with coffee-ground emesis. The patient was given aspirin by paramedics. The patient with a past medical history of diabetes mellitus, hypertension, and end-stage renal disease, on hemodialysis. Upon presentation in the ED, vital signs were stable. No leukocytosis. Mild anemia, hemoglobin -10.6 and hematocrit -34.4. Glucose- 163. BUN and creatinine were consistent with end-stage renal disease, BUN -88 and creatinine- 4.7. Electrolytes were stable. Troponin was negative. ProBNP - 1228. EKG revealed sinus rhythm. No acute ischemic changes. Chest x-ray revealed no acute cardiopulmonary disease. The patient was admitted with intractable nausea and vomiting, and chest pain, rule out acute coronary syndrome. HOSPITAL COURSE: The patient was admitted to telemetry floor. GI and Cardiology consults were requested. Per Cardiology, the patient had a noncardiac chest pain related to intractable nausea and vomiting. Echocardiogram revealed preserved ejection fraction of 55%, mild left ventricular hypertrophy, and right ventricular systolic pressure of 25. Pain management was provided. Blood pressure was managed with the current regimen and was stable. Blood sugar was managed with sliding scale of insulin. GI seen and evaluated the patient. The patient subsequently undergone upper endoscopy and found to have duodenal ulcer and duodenitis. No clot or no visible vessel was visualized. Pathology results revealed no evidence of H. pylori, but showed mild chronic gastritis. The patient was started on the PPI. Antiemetic provided as needed. Diet was slowly reintroduced. Aspirin was discontinued. Hemodialysis provided as per racket stringer ordered. Renal parameters and electrolytes were closely monitored along with the volume status. Wound care was provided as per wound care nurse recommendation for right sacral decubitus stage II, left buttock decubitus stage II, and coccyx decubitus stage I, all present on admission. Psychiatrist seen and evaluated the patient for major depressive disorder, optimized psychiatric medication regimen. The patient with evidence of anemia and undergone transfusion of two units of packed red blood cells for hemoglobin -7.0 and hematocrit -21.7. Anemia workup was consistent with anemia of chronic disease with high ferritin. Publications Designer closely followed. No further episodes of nausea and vomiting. The patient was stable for discharge. FINAL DIAGNOSES: 1. Intractable coffee-ground nausea and vomiting, likely secondary to duodenal ulcer. 2. Duodenal ulcer and duodenitis. 3. End-stage renal disease, on hemodialysis. 4. Noncardiac chest pain related to duodenal ulcer. 5. Anemia of chronic disease, status post blood transfusion. 6. Diabetes mellitus. 7. Major depressive disorder. 8. Status post esophagogastroduodenoscopy. 9. Right sacral decubitus ulcer stage II, present on admission. 10. Left buttock decubitus ulcer stage II, present on admission. 11. Coccyx decubitus ulcer stage I, present on admission. DISCHARGE MEDICATIONS: See medication reconciliation list. DISCHARGE INSTRUCTIONS: The patient was discharged home with home health services. FOLLOWUP: Follow up with the primary medical doctor next week. Samantha Head M.D. I have been assigned to dictate discharge summary on this account and I was not involved in the patient's management. Cecelia Fosteradam N.PShaun DR: ANAM JOB#: [id number] CC: RON
--- NOTE | 2017-05-17 10:50 | Diagnostic Imaging Report ---
APPROVED REPORT CPT Code: 65525 Present Symptoms Comments: R/O DVT BILATERAL: Imaging reveals a patent deep venous system bilaterally. There is no evidence of thrombus within the femoral, popliteal or tibial segments. The greater saphenous veins are also within normal limits. Doppler indicates normal spontaneous flow within these segments.
== END 2017-05-11 21:30 | disposition home health service (06) | DRG 377 ==
LOC: EDBD 12:47 → EMR 12:55 → 2E 14:03 → CANBEDREQ 14:49 → EDBEDREQ 17:16
PROC: 0DB68ZX Excision of Stomach, Via Natural or Artificial Opening Endoscopic, Diagnostic (ICD-10-PCS; principal; 2017-05-09 10:01)
PROC: 5A1D70Z Performance of Urinary Filtration, Intermittent, Less than 6 Hours Per Day (ICD-10-PCS; principal; 2017-05-09 10:01)
PROC: 0DB78ZX Excision of Stomach, Pylorus, Via Natural or Artificial Opening Endoscopic, Diagnostic (ICD-10-PCS; principal; 2017-05-09 10:01)
PROC: 30233N1 Transfusion of Nonautologous Red Blood Cells into Peripheral Vein, Percutaneous Approach (ICD-10-PCS; 2017-05-10)
DX: K26.4 Chronic or unspecified duodenal ulcer with hemorrhage (principal); N18.6 End stage renal disease; L89.152 Pressure ulcer of sacral region, stage 2; L89.322 Pressure ulcer of left buttock, stage 2; I12.0 Hypertensive chronic kidney disease with stage 5 chronic kidney disease or end stage renal disease; E11.22 Type 2 diabetes mellitus with diabetic chronic kidney disease; K29.80 Duodenitis without bleeding; Z99.2 Dependence on renal dialysis; K21.9 Gastro-esophageal reflux disease without esophagitis; Z79.4 Long term (current) use of insulin; F41.9 Anxiety disorder, unspecified; E78.5 Hyperlipidemia, unspecified; F32.9 Major depressive disorder, single episode, unspecified; D63.8 Anemia in other chronic diseases classified elsewhere; R07.89 Other chest pain; K29.70 Gastritis, unspecified, without bleeding
CPT/HCPCS: 36415; 71010; 80053; 80061; 82550; 82553; 82607; 82728; 82746; 82962; 82977; 83036; 83540; 83550; 83735; 83880; 84100; 84443; 84484; 84550; 85007; 85025; 85610; 85730; 86140; 86677; 86850; 86900; 86901; 86920; 93005; 93306; 93970; 94003; 94150; 99285; J2405

== ENCOUNTER 2017-12-18 00:29 | Inpatient (IN) | payer MEDICARE, MEDICAID ==
[~2017-12-18] VITALS: Ht 167.6 cm; Wt 75.3 kg
[2017-12-18] VITALS (8 sets, daily range): BP systolic 122–160; BP diastolic 64–79
--- NOTE | 2017-12-18 00:44 | Emergency Room Report ---
History of Present Illness General Chief Complaint: Chest Pain Source: Patient, EMS Present Illness HPI This is a 77-year-old male with a history of high blood pressure, CAD with previous [place]. He also has renal failure on hemodialysis. His dialysis days are Sunday, Sunday, and Sunday. He presents with chief complaint of chest pain. Onset for the last couple days on and off. Pain is sharp and localized the left chest. He called 911. EMS gave him aspirin and nitroglycerin. He said he felt better now. His chest pain is left-sided and sharp. Pain is 7 out of 10. Now minimal pain. No radiation. No diaphoresis. No shortness of breath. No exertional component.He said he also been feeling depressed. Medication not helping. No suicidal thoughts or homicidal thought. Allergies: Coded Allergies: No Known Allergies (Unverified , 11/12/12) Patient History Past Medical History: see triage record, old chart reviewed, HTN, TX, psych hx , renal disease, dialysis Past Surgical History: other Pertinent Family History: none Social History: Denies: smoking Immunizations: other Reviewed Nursing Documentation: PMH: Agreed; PSxH: Agreed Nursing Documentation-PMH Hx Cardiac Problems: Yes Hx Hypertension: Yes Hx Diabetes: Yes Hx Cancer: No Hx Gastrointestinal Problems: Yes - kidney stones, prostate Hx Dialysis: Yes - MWF History Of Psychiatric Problem: Yes Hx Neurological Problems: No Review of Systems Eye: Denies: eye pain, blurred vision ENT: Denies: ear pain, nose congestion, throat swelling Respiratory: Denies: cough, shortness of breath Cardiovascular: Reports: chest pain; Denies: palpitations Gastrointestinal: Denies: abdominal pain, diarrhea, nausea, vomiting Musculoskeletal: Denies: back pain, joint pain Skin: Denies: rash Neurological: Denies: headache, numbness Endocrine: Denies: increased thirst, increased urine Hematologic/Lymphatic: Denies: easy bruising All Other Systems: negative except mentioned in HPI Physical Exam Vital Signs Date Time Temp Pulse Resp B/P (MAP) Pulse Ox O2 Delivery O2 Flow Rate FiO2 12/18/17 00:17 97.9 63 18 159/77 98 Room Air 97.9 vitals with high blood pressure Sp02 EP Interpretation: reviewed, normal General Appearance: well appearing, no apparent distress, alert Head: normocephalic, atraumatic Eyes: bilateral eye PERRL, bilateral eye EOMI ENT: hearing grossly normal, normal pharynx Neck: full range of motion, supple, no meningismus Respiratory: chest non-tender, lungs clear, normal breath sounds Cardiovascular #1: regular rate, rhythm, no murmur Gastrointestinal: normal bowel sounds, non tender, no mass, no organomegaly, no bruit, non-distended Musculoskeletal: back normal, gait/station normal, normal range of motion Neurologic: alert, oriented x3 Psychiatric: depressed affect Skin: warm/dry Medical Decision Making Diagnostic Impression: Primary Impression: Chest pain Qualified Codes: R07.9 - Chest pain, unspecified Additional Impression: Depression Qualified Codes: F32.0 - Major depressive disorder, single episode, mild ER Course Patient with atypical chest pain. He does have multiple risk factors. Initial troponin negative. We'll admit for further workup. I discussed the case with Dr. Sullivan who admitted pt in Apr 2017. Lab Results Impression labs unremarkable EKG Diagnostic Results Rate: normal Rhythm: NSR ST Segments: no acute changes Rhythm Strip Diag. Results Rhythm Strip Time: 00:44 EP Interpretation: yes Rate: 60 Rhythm: NSR, no PVC's, no ectopy Chest X-Ray Diagnostic Results Chest X-Ray Diagnostic Results : Chest X-Ray Ordered: Yes # of Views/Limited/Complete: 1 View Indication: Chest Pain EP Interpretation: Yes Interpretation: no consolidation, no effusion, no pneumothorax, no acute cardiopulmonary disease Impression: No acute disease Electronically Signed by: Watson Kan MD Last Vital Signs Date Time Temp Pulse Resp B/P (MAP) Pulse Ox O2 Delivery O2 Flow Rate FiO2 12/18/17 00:17 97.9 63 18 159/77 98 Room Air 97.9 Status: improved Disposition: ADMITTED INPATIENT Condition: Serious WATSON KAN M.D. Dec 18, 2017 00:44
[2017-12-18 00:58] LABS: HEMATOCRIT 41.9 % (42.0-52.0); HEMOGLOBIN 14.1 G/DL (14.2-18.0); MEAN CORPUSCULAR VOLUME 90 FL (80-99); PLATELET COUNT 186 K/UL (150-450); RED BLOOD COUNT 4.67 M/UL (4.70-6.10); RED CELL DISTRIBUTION WIDTH 14.1 % (11.6-14.8); WHITE BLOOD COUNT 3.2 K/UL (4.8-10.8)
[2017-12-18 01:01] LABS: APPEARANCE,URINE CLEAR; BILIRUBIN, URINE NEGATIVE (NEGATIVE); COLOR,URINE PALE YELLOW; GLUCOSE, URINE (UA) 1+ (NEGATIVE); KETONES,URINE NEGATIVE (NEGATIVE); LEUKOCYTE ESTERASE ,URINE NEGATIVE (NEGATIVE); NITRITE,URINE NEGATIVE (NEGATIVE); PH,URINE 8 (4.5-8.0); PROTEIN,URINE 4+ (NEGATIVE); UROBILINOGEN,URINE NORMAL MG/DL (0.0-1.0)
[2017-12-18 01:07] LABS: ANION GAP 10 mmol/L (5-15); BLOOD UREA NITROGEN 35 mg/dL (7-18); CALCIUM 9.4 MG/DL (8.5-10.1); CARBON DIOXIDE 27 MMOL/L (21-32); CHLORIDE 94 MMOL/L (98-107); CREATININE 6.6 MG/DL (0.55-1.30); POTASSIUM 4.2 MMOL/L (3.5-5.1); SODIUM 131 MMOL/L (136-145)
[2017-12-18 01:21] LABS: ALANINE AMINOTRANSFERASE 17 U/L (12-78); ALBUMIN 3.8 G/DL (3.4-5.0); ALBUMIN/GLOBULIN RATIO 1.2 (1.0-2.7); ALKALINE PHOSPHATASE 80 U/L (46-116); ASPARTATE AMINO TRANSFERASE 21 U/L (15-37); BILIRUBIN,TOTAL 0.5 MG/DL (0.2-1.0); CKMB 1.8 NG/ML (0.0-3.6); CREATINE KINASE 204 U/L (26-308)
[2017-12-18] MEDS ORDERED: LORAZEPAM0.5 MG ORAL (02:27)
[2017-12-18] MEDS ORDERED: Milk of Magnesia 30ml Ud ORAL PRN (04:45)
[2017-12-18] MEDS ORDERED: LORazepam 1mg tab ORAL ONE (04:45)
[2017-12-18] MEDS ORDERED: Sennosides 8.6mg ORAL PRN (04:45)
[2017-12-18] MEDS ORDERED: LORazepam 0.5mg tab ORAL SCH ×2 (05:30→18:00)
[2017-12-18] MEDS: NovoLOG Insulin Flexpen SUBQ SCH ×4 (06:30→20:34)
[2017-12-18 06:32] LABS: BASOPHILS % (AUTO) 1.5 % (0.0-2.0); EOSINOPHILS % (AUTO) 3.6 % (0.0-3.0); HEMATOCRIT 41.2 % (42.0-52.0); HEMOGLOBIN 13.3 G/DL (14.2-18.0); LYMPHOCYTES % (AUTO) 16.7 % (20.0-45.0); MEAN CORPUSCULAR VOLUME 92 FL (80-99); MONOCYTES % (AUTO) 17.5 % (1.0-10.0); NEUTROPHILS % (AUTO) 60.7 % (45.0-75.0); PLATELET COUNT 168 K/UL (150-450); RED BLOOD COUNT 4.48 M/UL (4.70-6.10)
[2017-12-18 06:52] LABS: ANION GAP 10 mmol/L (5-15); BLOOD UREA NITROGEN 35 mg/dL (7-18); CALCIUM 9.1 MG/DL (8.5-10.1); CARBON DIOXIDE 28 MMOL/L (21-32); CHLORIDE 94 MMOL/L (98-107); CREATININE 6.8 MG/DL (0.55-1.30); POTASSIUM 3.9 MMOL/L (3.5-5.1); SODIUM 132 MMOL/L (136-145)
--- NOTE | 2017-12-18 09:50 | Consultation ---
Consult Note Consult Note asked to eval for dialysis management This is a 77-year-old male with a history of high blood pressure, CAD with previous [place]. He also has renal failure on hemodialysis. His dialysis days are Sunday, Sunday, and Sunday. He presents with chief complaint of chest pain. Onset for the last couple days on and off. Pain is sharp and localized the left chest. He called 911. EMS gave him aspirin and nitroglycerin. He said he felt better now. His chest pain is left-sided and sharp. Pain is 7 out of 10. Now minimal pain. No radiation. No diaphoresis. No shortness of breath. No exertional component.He said he also been feeling depressed. Medication not helping. No suicidal thoughts or homicidal thought. Past Medical History: see triage record, old chart reviewed, HTN, [place], psych hx , renal disease, dialysis Hx Cardiac Problems: Yes Hx Hypertension: Yes Hx Diabetes: Yes Hx Gastrointestinal Problems: Yes - kidney stones, prostate Hx Dialysis: Yes - MWF History Of Psychiatric Problem: Yes interviewed examined- data reviewed Assessment/Plan ESRD ACS DM HTN h/o GI bleed Depression Plan: Per cardio- HD Heladio W Fr Adjust meds for BP and BS per orders Maurilio Arroyo MD Dec 18, 2017 09:50
[2017-12-18] MEDS ORDERED: Norco 5mg/325mg tab ORAL SCH (10:00)
--- NOTE | 2017-12-18 10:04 | Cardiac Electrophysiology PN ---
Subjective Subjective [id number] Objective Last 24 Hour Vital Signs Date Time Temp Pulse Resp B/P (MAP) Pulse Ox O2 Delivery O2 Flow Rate FiO2 12/18/17 05:32 Room Air 12/18/17 04:00 61 12/18/17 03:38 97.3 57 20 160/76 (104) 100 97.3 12/18/17 02:50 97.9 57 12 150/64 100 Room Air 97.9 12/18/17 02:18 97.9 57 12 150/64 100 Room Air 97.9 12/18/17 00:48 97.9 55 12 122/66 99 Room Air 97.9 12/18/17 00:30 63 18 Room Air 12/18/17 00:17 97.9 63 18 159/77 98 Room Air 97.9 Intake and Output 12/17/17 12/18/17 19:00 07:00 Intake Total 480 ml Output Total 500 ml Balance -20 ml Intake Oral 480 ml Output Urine Total 500 ml # Voids 1 # Bowel Movements 2 Laboratory Tests Test 12/18/17 00:30 12/18/17 05:45 White Blood Count 3.2 K/UL (4.8-10.8) L 4.0 K/UL (4.8-10.8) L Red Blood Count 4.67 M/UL (4.70-6.10) L 4.48 M/UL (4.70-6.10) L Hemoglobin 14.1 G/DL (14.2-18.0) L 13.3 G/DL (14.2-18.0) L Hematocrit 41.9 % (42.0-52.0) L 41.2 % (42.0-52.0) L Mean Corpuscular Volume 90 FL (80-99) 92 FL (80-99) Mean Corpuscular Hemoglobin 30.1 PG (27.0-31.0) 29.6 PG (27.0-31.0) Mean Corpuscular Hemoglobin Concent 33.5 G/DL (32.0-36.0) 32.2 G/DL (32.0-36.0) Red Cell Distribution Width 14.1 % (11.6-14.8) 14.0 % (11.6-14.8) Platelet Count 186 K/UL (150-450) 168 K/UL (150-450) Mean Platelet Volume 7.5 FL (6.5-10.1) 6.9 FL (6.5-10.1) Neutrophils (%) (Auto) % (45.0-75.0) 60.7 % (45.0-75.0) Lymphocytes (%) (Auto) % (20.0-45.0) 16.7 % (20.0-45.0) L Monocytes (%) (Auto) % (1.0-10.0) 17.5 % (1.0-10.0) H Eosinophils (%) (Auto) % (0.0-3.0) 3.6 % (0.0-3.0) H Basophils (%) (Auto) % (0.0-2.0) 1.5 % (0.0-2.0) Urine Color Pale yellow Urine Appearance Clear Urine pH 8 (4.5-8.0) Urine Specific [place] 1.015 (1.005-1.035) Urine Protein 4+ (NEGATIVE) H Urine Glucose (UA) 1+ (NEGATIVE) H Urine Ketones Negative (NEGATIVE) Urine Occult Blood 2+ (NEGATIVE) H Urine Nitrite Negative (NEGATIVE) Urine Bilirubin Negative (NEGATIVE) Urine Urobilinogen Normal MG/DL (0.0-1.0) Urine Leukocyte Esterase Negative (NEGATIVE) Urine RBC 0-2 /HPF (0 - 0) H Urine WBC 0-2 /HPF (0 - 0) Urine Squamous Epithelial Cells None /LPF (NONE/OCC) Urine Bacteria Few /HPF (NONE) Sodium Level 131 MMOL/L (136-145) L 132 MMOL/L (136-145) L Potassium Level 4.2 MMOL/L (3.5-5.1) 3.9 MMOL/L (3.5-5.1) Chloride Level 94 MMOL/L (98-107) L 94 MMOL/L (98-107) L Carbon Dioxide Level 27 MMOL/L (21-32) 28 MMOL/L (21-32) Anion Gap 10 mmol/L (5-15) 10 mmol/L (5-15) Blood Urea Nitrogen 35 mg/dL (7-18) H 35 mg/dL (7-18) H Creatinine 6.6 MG/DL (0.55-1.30) H 6.8 MG/DL (0.55-1.30) H Estimat Glomerular Filtration Rate mL/min (>60) mL/min (>60) Glucose Level 95 MG/DL (74-106) 86 MG/DL (74-106) Calcium Level 9.4 MG/DL (8.5-10.1) 9.1 MG/DL (8.5-10.1) Total Bilirubin 0.5 MG/DL (0.2-1.0) Aspartate Amino Transf (AST/SGOT) 21 U/L (15-37) Alanine Aminotransferase (ALT/SGPT) 17 U/L (12-78) Alkaline Phosphatase 80 U/L (46-116) Total Creatine Kinase 204 U/L (26-308) Creatine Kinase MB 1.8 NG/ML (0.0-3.6) Creatine Kinase MB Relative Index 0.8 Troponin I 0.000 ng/mL (0.000-0.056) Total Protein 7.1 G/DL (6.4-8.2) Albumin 3.8 G/DL (3.4-5.0) Globulin 3.3 g/dL Albumin/Globulin Ratio 1.2 (1.0-2.7) Everett Stephenson MD Dec 18, 2017 10:04
[2017-12-18] MEDS ORDERED: Lexiscan 0.4mg/5ml syringe IV SCH (10:15)
[2017-12-18] MEDS: Nitroglycerin Patch 0.4mg TDERMAL SCH (11:19)
--- NOTE | 2017-12-18 12:03 | Diagnostic Imaging Report ---
Indication: Chest pain Technique: XRAY Chest 1v Comparison: 05/08/2017 Findings: Heart size and mediastinal contours stable, including cardiomegaly. There is evidence of prior coronary arterial stenting. No focal consolidation, pleural effusion or pneumothorax. Impression: Stable cardiomegaly. Evidence of prior coronary arterial stenting. No focal consolidation, pleural effusion or pneumothorax.
--- NOTE | 2017-12-18 12:36 | Consultation ---
History of Present Illness General Date patient seen: Dec 18, 2017 Chief Complaint: Chest Pain Present Illness HPI 77-year-old male with a history of mdd and anxiety high blood pressure , CAD with previous LA. The pt was hallucinating and hearing voices. The pt is not suicidal and is very anxious. The pt has cognitive impairment. The pt is irrational and stated that he want to be transferred to another hospital Allergies: Coded Allergies: No Known Allergies (Unverified , 11/12/12) Medication History Scheduled Allopurinol* (Allopurinol*), 100 MG ORAL DAILY, (Reported) Esomeprazole Magnesium (Nexium), 40 MG ORAL DAILY, (Reported) Hydrocodone/Acetaminophen 5-325* ([place] 5-325*), 1 TAB ORAL NEEDED, (Reported ) Insulin Glargine,Hum.rec.anlog (Lantus), 0 SUBQ BEDTIME, (Reported) Insulin Regular, Human (Humulin R), 10 SUBQ AC+HS, (Reported) Labetalol Hcl* (Normodyne*), 200 MG ORAL TWICE A DAY, (Reported) Lorazepam* (Ativan*), 2 MG ORAL NEEDED, (Reported) Lorazepam* (Lorazepam*), 0.5 MG ORAL BID, (Reported) Multivitamin (Multi Vitamin Daily), 1 EACH PO DAILY, (Reported) [place]-3 Fatty Acids/Fish Oil ([place] 3 Fish Oil Softgel), 1 EACH PO DAILY, ( Reported) Rosuvastatin Calcium (Crestor), 40 MG ORAL DAILY, (Reported) Sennosides (Senna), 8.6 MG PO NEEDED, (Reported) Sertraline Hcl* (Zoloft*), 100 MG ORAL DAILY, (Reported) Trazodone Hcl* (Desyrel*), 100 MG ORAL BEDTIME, (Reported) Zolpidem Tartrate* (Ambien*), 5 MG ORAL BEDTIME, (Reported) Discontinued Medications Trimethoprim/Sulfamethoxazole (Bactrim Ds Tablet), 2 TAB ORAL FOUR TIMES A DAY, (Reported) Discontinued Reason: Therapy completed Patient History Limited by: medical condition History Provided By: Patient, Medical Record, PMD Healthcare decision maker Resuscitation status Full Code Advanced Directive on File Past Medical/Surgical History Past Medical/Surgical History: (1) Coffee ground emesis (2) Duodenal ulcer (3) Anemia (4) Depression (5) Chest pain Review of Systems Psychiatric: Reports: anxiety, depressed feelings, emotional problems Physical Exam General Appearance: no apparent distress, alert Neurologic: oriented x 3, responsive, depressed affect Last 24 Hour Vital Signs Date Time Temp Pulse Resp B/P (MAP) Pulse Ox O2 Delivery O2 Flow Rate FiO2 12/18/17 11:19 148/77 12/18/17 11:18 63 148/77 12/18/17 08:00 66 12/18/17 08:00 97.7 63 20 148/77 (100) 99 97.7 12/18/17 05:32 Room Air 12/18/17 04:00 61 12/18/17 03:38 97.3 57 20 160/76 (104) 100 97.3 12/18/17 02:50 97.9 57 12 150/64 100 Room Air 97.9 12/18/17 02:18 97.9 57 12 150/64 100 Room Air 97.9 12/18/17 00:48 97.9 55 12 122/66 99 Room Air 97.9 12/18/17 00:30 63 18 Room Air 12/18/17 00:17 97.9 63 18 159/77 98 Room Air 97.9 Intake and Output 12/17/17 12/18/17 19:00 07:00 Intake Total 480 ml Output Total 500 ml Balance -20 ml Intake Oral 480 ml Output Urine Total 500 ml # Voids 1 # Bowel Movements 2 Laboratory Tests Test 12/18/17 00:30 12/18/17 05:45 12/18/17 11:05 White Blood Count 3.2 K/UL (4.8-10.8) L 4.0 K/UL (4.8-10.8) L Red Blood Count 4.67 M/UL (4.70-6.10) L 4.48 M/UL (4.70-6.10) L Hemoglobin 14.1 G/DL (14.2-18.0) L 13.3 G/DL (14.2-18.0) L Hematocrit 41.9 % (42.0-52.0) L 41.2 % (42.0-52.0) L Mean Corpuscular Volume 90 FL (80-99) 92 FL (80-99) Mean Corpuscular Hemoglobin 30.1 PG (27.0-31.0) 29.6 PG (27.0-31.0) Mean Corpuscular Hemoglobin Concent 33.5 G/DL (32.0-36.0) 32.2 G/DL (32.0-36.0) Red Cell Distribution Width 14.1 % (11.6-14.8) 14.0 % (11.6-14.8) Platelet Count 186 K/UL (150-450) 168 K/UL (150-450) Mean Platelet Volume 7.5 FL (6.5-10.1) 6.9 FL (6.5-10.1) Neutrophils (%) (Auto) % (45.0-75.0) 60.7 % (45.0-75.0) Lymphocytes (%) (Auto) % (20.0-45.0) 16.7 % (20.0-45.0) L Monocytes (%) (Auto) % (1.0-10.0) 17.5 % (1.0-10.0) H Eosinophils (%) (Auto) % (0.0-3.0) 3.6 % (0.0-3.0) H Basophils (%) (Auto) % (0.0-2.0) 1.5 % (0.0-2.0) Urine Color Pale yellow Urine Appearance Clear Urine pH 8 (4.5-8.0) Urine Specific [place] 1.015 (1.005-1.035) Urine Protein 4+ (NEGATIVE) H Urine Glucose (UA) 1+ (NEGATIVE) H Urine Ketones Negative (NEGATIVE) Urine Occult Blood 2+ (NEGATIVE) H Urine Nitrite Negative (NEGATIVE) Urine Bilirubin Negative (NEGATIVE) Urine Urobilinogen Normal MG/DL (0.0-1.0) Urine Leukocyte Esterase Negative (NEGATIVE) Urine RBC 0-2 /HPF (0 - 0) H Urine WBC 0-2 /HPF (0 - 0) Urine Squamous Epithelial Cells None /LPF (NONE/OCC) Urine Bacteria Few /HPF (NONE) Sodium Level 131 MMOL/L (136-145) L 132 MMOL/L (136-145) L Potassium Level 4.2 MMOL/L (3.5-5.1) 3.9 MMOL/L (3.5-5.1) Chloride Level 94 MMOL/L (98-107) L 94 MMOL/L (98-107) L Carbon Dioxide Level 27 MMOL/L (21-32) 28 MMOL/L (21-32) Anion Gap 10 mmol/L (5-15) 10 mmol/L (5-15) Blood Urea Nitrogen 35 mg/dL (7-18) H 35 mg/dL (7-18) H Creatinine 6.6 MG/DL (0.55-1.30) H 6.8 MG/DL (0.55-1.30) H Estimat Glomerular Filtration Rate mL/min (>60) mL/min (>60) Glucose Level 95 MG/DL (74-106) 86 MG/DL (74-106) Calcium Level 9.4 MG/DL (8.5-10.1) 9.1 MG/DL (8.5-10.1) Total Bilirubin 0.5 MG/DL (0.2-1.0) Aspartate Amino Transf (AST/SGOT) 21 U/L (15-37) Alanine Aminotransferase (ALT/SGPT) 17 U/L (12-78) Alkaline Phosphatase 80 U/L (46-116) Total Creatine Kinase 204 U/L (26-308) Creatine Kinase MB 1.8 NG/ML (0.0-3.6) Creatine Kinase MB Relative Index 0.8 Troponin I 0.000 ng/mL (0.000-0.056) 0.005 ng/mL (0.000-0.056) Total Protein 7.1 G/DL (6.4-8.2) Albumin 3.8 G/DL (3.4-5.0) Globulin 3.3 g/dL Albumin/Globulin Ratio 1.2 (1.0-2.7) Height (Feet): 5 Height (Inches): 6.00 Weight (Pounds): 180 Medications Current Medications Medications (Trade) Dose Ordered Sig/Min Route PRN Reason Start Time Stop Time Status Last Admin Dose Admin Acetaminophen (Tylenol) 650 mg Q4H PRN ORAL Mild Pain/Temp > 100.5 12/18/17 05:30 01/17/18 05:29 Acetaminophen/ Hydrocodone Bitart ([place] 5/325) 1 tab Q6H PRN ORAL pain over 5 12/18/17 10:15 12/25/17 10:14 Allopurinol (Zyloprim) 100 mg DAILY ORAL 12/19/17 09:00 01/18/18 08:59 Amlodipine Besylate (Norvasc) 5 mg DAILY ORAL 12/19/17 09:00 01/18/18 08:59 Aspirin (ASA) 162 mg DAILY ORAL 12/19/17 09:00 01/18/18 08:59 Dextrose (Dextrose 50%) 25 ml STAT PRN IV Hypoglycemia 12/18/17 04:45 01/17/18 04:44 Dextrose (Dextrose 50%) 50 ml STAT PRN IV Hypoglycemia 12/18/17 04:45 01/17/18 04:44 Docusate Sodium (Colace) 100 mg THREE TIMES A DAY ORAL 12/18/17 13:00 01/17/18 12:59 Insulin Aspart (NovoLOG) BEFORE MEALS AND HS SUBQ 12/18/17 06:30 01/17/18 06:29 Lorazepam (Ativan) 0.5 mg BID ORAL 12/18/17 18:00 12/25/17 17:59 Metoprolol Tartrate (Lopressor) 12.5 mg Q12HR ORAL 12/18/17 21:00 01/17/18 20:59 Nitroglycerin (Ntg) 1 patch Q24H TDERMAL 12/18/17 10:00 01/17/18 09:59 12/18/17 11:19 Pantoprazole (Protonix) 40 mg EVERY 12 HOURS ORAL 12/18/17 21:00 01/17/18 20:59 Sennosides (Senokot) 1 tab DAILY PRN ORAL Constipation 12/18/17 04:45 01/17/18 04:44 Sertraline HCl (Zoloft) 100 mg DAILY ORAL 12/19/17 09:00 01/18/18 08:59 Sevelamer Carbonate (Renvela) 800 mg THREE TIMES A DAY ORAL 12/18/17 13:00 01/17/18 12:59 Trazodone HCl (Desyrel) 100 mg BEDTIME ORAL 12/18/17 21:00 01/17/18 20:59 Zolpidem Tartrate (Ambien) 5 mg BEDTIME PRN ORAL sleep 12/18/17 21:00 12/25/17 20:59 Assessment/Plan Status: stable, progressing Assessment/Plan MDD Encephalopathy Anxiety -Seroquel 50mg qhs -seroquel prn -cont Chely Lopez MD Dec 18, 2017 12:36
[2017-12-18] MEDS: Docusate 100mg cap ORAL SCH ×2 (13:02→18:04)
--- NOTE | 2017-12-18 13:45 | Consultation ---
DATE OF CONSULTATION: 12/18/2017 CARDIOLOGY CONSULTATION CONSULTING PHYSICIAN: Everett Stephenson M.D. REFERRING PHYSICIAN: Samantha Head M.D. REASON FOR CONSULTATION: Chest pain. HISTORY OF PRESENT ILLNESS: The patient is a 77-year-old gentleman with history of hypertension, prior myocardial infarction as well as end-stage renal disease, on hemodialysis on Sunday, Sunday, and Sunday. He presented to the emergency room with chest pain of 2 days' duration. It has been off and on. The patient feels that this came up because he was very depressed and he has kill. He called 911 and received aspirin and nitroglycerin. The pain was 7/10. At the time of my evaluation, the patient denies any chest pain, palpitation, or shortness of breath. Just feels very anxious. REVIEW OF SYSTEMS: Performed and was negative other than what was mentioned in history of present illness. Currently, the patient is not homicidal and does not have suicidal thoughts. FAMILY HISTORY: Noncontributory. SOCIAL HISTORY: He lives at home. Does not smoke or drink alcohol. PHYSICAL EXAMINATION: VITAL SIGNS: Show blood pressure of 162/76, pulse of 61, respirations 18, and temperature 97.3. HEAD AND NECK: Showed no JVD or carotid bruit. LUNGS: Clear. CARDIOVASCULAR: Shows regular S1 and S2 with no gallop or murmur. ABDOMEN: Soft. EXTREMITIES: No pitting edema. SKIN: Dialysis access and AV shunt in the left forearm. LABORATORY AND DIAGNOSTIC DATA: Labs show white count of 4, hemoglobin 13.2, hematocrit 41.2, and platelet count was 68,000. Sodium 132, potassium 3.9, BUN of 35, creatinine 6.8, and glucose 86. His EKG showed sinus rhythm with old inferior wall infarct and old anterior wall infarct. ASSESSMENT AND PLAN: 1. Chest pain. The patient with history of prior myocardial infarction with old anterior and inferior wall infarct. His first troponin is negative. We will completely rule out MA protocol. We will get an echocardiogram to evaluate for ejection fraction and wall motion abnormality. The patient will be on aspirin 162 mg daily as well as metoprolol 12.5 mg b.i.d. We will start him on Lipitor and check fasting lipid profile. We will get an echocardiogram for further evaluation. 2. Hypertension, on metoprolol 12.5 mg b.i.d. and Norvasc 5 mg daily. 3. Diabetes, on insulin. 4. End-stage renal disease, on hemodialysis. 5. Depression, on Zoloft. Thank you very much, Dr. Head, for allowing me to participate in the care of this patient. Please do not hesitate to contact me for any questions regarding my evaluation. Everett Stephenson M.D. DR: Moe JOB#: [id number] CC:
--- NOTE | 2017-12-18 13:59 | Cardiology Report ---
APPROVED REPORT EKG Measurement Heart [id number] Normal sinus rhythm Inferior infarct, age undetermined Anterior infarct, age undetermined Abnormal ECG
--- NOTE | 2017-12-18 14:18 | Cardiology Report ---
APPROVED REPORT EXAM: Two-dimensional and M-mode echocardiogram with Doppler and color Doppler. INDICATION Acute [place] M-Mode DIMENSIONS IVSd1.5 (0.7-1.1cm)Left Atrium (MM)4.9 (1.6-4.0cm) LVDd5.6 (3.5-5.6cm)Aortic Root3.9 (2.0-3.7cm) PWd1.4 (0.7-1.1cm)Aortic Cusp Exc..2 (1.5-2.0cm) LVDs4.6 (2.5-4.0cm) PWs1.0 cm Normal left ventricular chamber size, systolic function and wall motion. Left ventricular ejection fraction estimated to be 60 %. Mild left ventricular hypertrophy. No evidence of pericardial effusion. Mild left atrial enlargement. Right atrial size at upper limits of normal. Right ventricular chamber size is within normal limits. Focal aortic valve sclerosis with adequate cusp excursion. Thickened mitral valve leaflets with normal excursion. Mitral annulus and aortic root calcification. Pulmonic valve not well visualized. Normal tricuspid valve structure. IVC dilated at 2.8 cm with slight physiologic collapse suggestive of increased RA pressure. A color flow and spectral Doppler study was performed and revealed: Trace aortic regurgitation. Trace mitral regurgitation. Mitral diastolic velocities suggest reduced left ventricular relaxation c/w mild LV diastolic dysfunction (Grade I ). Trace tricuspid regurgitation. Tricuspid systolic velocities suggests peak right ventricular systolic pressure of 30 mmHg.
[2017-12-18] MEDS: Metoprolol Tartrate 12.5mg TAB ORAL SCH (20:38)
[2017-12-18] MEDS ORDERED: TraZODone 100mg tab ORAL SCH (21:00)
[2017-12-18] MEDS ORDERED: Zolpidem 5mg tab ORAL PRN (21:00)
[2017-12-18] MEDS ORDERED: Zolpidem 5mg tab ORAL SCH (21:00)
--- NOTE | 2017-12-18 22:45 | History and Physical Report ---
DATE OF ADMISSION: 12/18/2017 HISTORY OF PRESENT ILLNESS: The patient was admitted for chest pain, rule out acute coronary syndrome. He has a history of CAD. He also has end-stage renal disease. He is on hemodialysis. The patient has a high risk for myocardial infarction. The patient is also depressed and hears voices to kill other people. The patient is a dialysis patient. The patient does have vomiting as well for 2 days and chest pain is going on for couple of days. 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 He is very anxious and also complains of depression. Dr. Kulkarni has been consulted already. Denies orthopnea. Denies shortness of breath. Denies cough. PAST MEDICAL HISTORY: History of gout, history of gastroesophageal reflux disease, end-stage renal disease, on hemodialysis, NIDDM, hypertension, anxiety, depression, psychosis, constipation, insomnia, duodenal ulcer, peptic ulcer disease. PAST SURGICAL HISTORY: Related to dialysis access and eye surgery. MEDICATIONS: Allopurinol, Nexium, insulin, labetalol, lorazepam, Crestor, Senokot, sertraline, and trazodone. ALLERGIES: No known allergies. FAMILY HISTORY: Noncontributory. SOCIAL HISTORY: The patient does have history of smoking and history of alcohol abuse. No history of drug abuse. He lives by himself. REVIEW OF SYSTEMS: HEENT: Denies headaches. RESPIRATORY: Denies shortness of breath. Denies cough. CARDIOVASCULAR: Reports chest pain for a couple of days. No radiation. No palpitation. No orthopnea. GASTROINTESTINAL: Does have nausea and constipation. EXTREMITIES: Denies pain in lower extremities. Denies change in vision or speech pattern. PHYSICAL EXAMINATION: VITAL SIGNS: Temperature 97.3, pulse is 57, and blood pressure 160/76. HEENT: The patient is blind in one eye. PERRLA. NECK: Supple. No lymphadenopathy. CHEST: Clear to auscultation. CARDIOVASCULAR: Regular rate and rhythm. GASTROINTESTINAL: Soft, nontender, and nondistended. No organomegaly. EXTREMITIES: A 1+ edema. Reflexes are equal on both sides. NEUROLOGIC: Oriented x3. Able to move extremities. LABORATORY DATA: WBC of 3.2, hemoglobin 14.1, and platelets of 186,000. Sodium 131, potassium 4.2, BUN of 35, creatinine 6.6, and glucose 95. ASSESSMENT/PLAN: 1. Chest pain, rule out acute coronary event. 2. End-stage renal disease, on hemodialysis. 3. Depression with hearing voices, hallucinations. PLAN: I have asked Dr. Kulkarni, Dr. Stephenson, and Dr. Arroyo to see the patient for the above-mentioned diagnoses and treatment. The patient will be kept on everyday on a regular basis. End-stage renal disease, Dr. Arroyo is also consulted for the dialysis orders. We to rule out acute coronary syndrome. Samantha Head M.D. DR: RAO JOB#: [id number] CC:
[2017-12-18] MEDS: Norco 5mg/325mg tab ORAL PRN (23:44)
[2017-12-19] VITALS (7 sets, daily range): BP systolic 148–189; BP diastolic 71–103
[2017-12-19 05:19] LABS: BASOPHILS % (AUTO) 1.2 % (0.0-2.0); EOSINOPHILS % (AUTO) 4.4 % (0.0-3.0); HEMOGLOBIN 13.5 G/DL (14.2-18.0); LYMPHOCYTES % (AUTO) 15.3 % (20.0-45.0); MEAN CORPUSCULAR VOLUME 91 FL (80-99); MONOCYTES % (AUTO) 13.7 % (1.0-10.0); NEUTROPHILS % (AUTO) 65.3 % (45.0-75.0); PLATELET COUNT 193 K/UL (150-450); RED BLOOD COUNT 4.53 M/UL (4.70-6.10); RED CELL DISTRIBUTION WIDTH 14.2 % (11.6-14.8); WHITE BLOOD COUNT 4.6 K/UL (4.8-10.8)
[2017-12-19 06:04] LABS: ALANINE AMINOTRANSFERASE 15 U/L (12-78); ALBUMIN 3.5 G/DL (3.4-5.0); ALBUMIN/GLOBULIN RATIO 1.3 (1.0-2.7); ALKALINE PHOSPHATASE 79 U/L (46-116); ANION GAP 13 mmol/L (5-15); ASPARTATE AMINO TRANSFERASE 20 U/L (15-37); BILIRUBIN,TOTAL 0.4 MG/DL (0.2-1.0); BLOOD UREA NITROGEN 54 mg/dL (7-18); CARBON DIOXIDE 24 MMOL/L (21-32); CHLORIDE 94 MMOL/L (98-107); CHOLESTEROL 259 MG/DL (< 200); CREATINE KINASE 242 U/L (26-308); CREATININE 7.9 MG/DL (0.55-1.30); FERRITIN 745 NG/ML (8-388); GAMMA GLUTAMYL TRANSPEPTIDASE 38 U/L (5-85); HDL CHOLESTEROL 35 MG/DL (40-60); PHOSPHORUS 3.7 MG/DL (2.5-4.9); SODIUM 131 MMOL/L (136-145); TRIGLYCERIDES 186 MG/DL (30-150)
[2017-12-19 06:25] LABS: % IRON SATURATION 43 % (15-50); IRON 76 ug/dL (50-175); TOTAL IRON BINDING CAPACITY 177 ug/dL (250-450)
[2017-12-19] MEDS: NovoLOG Insulin Flexpen SUBQ SCH ×4 (06:25→21:19)
[2017-12-19] MEDS ORDERED: Allopurinol 100mg Tab ORAL SCH (09:00)
[2017-12-19] MEDS ORDERED: Atorvastatin 20mg tab ORAL SCH (09:30)
[2017-12-19] MEDS: Sertraline 100mg tab ORAL SCH (10:12)
[2017-12-19] MEDS: Metoprolol Tartrate 12.5mg TAB ORAL SCH ×2 (10:13→21:16)
[2017-12-19] MEDS: Docusate 100mg cap ORAL SCH ×3 (10:14→17:29)
[2017-12-19] MEDS: Nitroglycerin Patch 0.4mg TDERMAL SCH (10:14)
[2017-12-19] MEDS: Aspirin Baby 81mg ORAL SCH (10:17)
--- NOTE | 2017-12-19 10:41 | Nephrology Progress Note ---
Assessment/Plan Problem List: (1) ESRD (end stage renal disease) on dialysis (2) Anemia (3) Depression Assessment ESRD due dialysis today- ACS DM HTN h/o GI bleed Depression Plan Per cardio- HD M W Fr Adjust meds for BP and BS per orders add Statins Subjective ROS Limited/Unobtainable: No Constitutional: Reports: malaise Objective Objective Last 24 Hour Vital Signs Date Time Temp Pulse Resp B/P (MAP) Pulse Ox O2 Delivery O2 Flow Rate FiO2 12/19/17 10:14 148/71 12/19/17 10:14 61 148/71 12/19/17 10:13 61 148/71 12/19/17 04:00 98.0 63 20 156/74 (101) 98 98.0 12/19/17 04:00 61 12/19/17 00:00 65 12/18/17 23:52 67 145/76 (99) 12/18/17 21:00 Room Air 12/18/17 20:38 74 152/75 12/18/17 20:00 91 12/18/17 20:00 98.4 74 20 152/72 (98) 97 98.4 12/18/17 16:00 68 12/18/17 16:00 97.7 61 18 134/79 (97) 98 97.7 12/18/17 12:00 98.0 65 20 144/71 (95) 99 98.0 12/18/17 12:00 60 12/18/17 11:19 148/77 12/18/17 11:18 63 148/77 Intake and Output 12/18/17 12/19/17 19:00 07:00 Intake Total 1200 ml Output Total 950 ml Balance 1200 ml -950 ml Intake Oral 1200 ml Output Urine Total 950 ml # Voids 1 4 # Bowel Movements 1 Laboratory Tests 12/18/17 11:05: Troponin I 0.005 12/18/17 19:00: Troponin I 0.000 12/19/17 03:14: Troponin I 0.000, White Blood Count 4.6L, Red Blood Count 4.53L, Hemoglobin 13.5L, Hematocrit 41.0L, Mean Corpuscular Volume 91, Mean Corpuscular Hemoglobin 29.9, Mean Corpuscular Hemoglobin Concent 33.0, Red Cell Distribution Width 14.2, Platelet Count 193, Mean Platelet Volume 7.1, Neutrophils (%) (Auto) 65.3, Lymphocytes (%) (Auto) 15.3L, Monocytes (%) (Auto) 13.7H, Eosinophils (%) (Auto) 4.4H, Basophils (%) (Auto) 1.2, Sodium Level 131L , Potassium Level 4.0, Chloride Level 94L, Carbon Dioxide Level 24, Anion Gap 13 , Blood Urea Nitrogen 54H, Creatinine 7.9H, Estimat Glomerular Filtration Rate , Glucose Level 96, Hemoglobin A1c 5.4, Uric Acid 4.3, Calcium Level 9.0, Phosphorus Level 3.7, Magnesium Level 1.7L, Iron Level 76, Total Iron Binding Capacity 177L, Percent Iron Saturation 43, Unsaturated Iron Binding 101L, Ferritin 745H, Total Bilirubin 0.4, Gamma Glutamyl Transpeptidase 38, Aspartate Amino Transf (AST/SGOT) 20, Alanine Aminotransferase (ALT/SGPT) 15, Alkaline Phosphatase 79, Total Creatine Kinase 242, C-Reactive Protein, Quantitative < 0.4, Pro-B-Type Natriuretic Peptide 788H, Total Protein 6.1L, Albumin 3.5, Globulin 2.6, Albumin/Globulin Ratio 1.3, Triglycerides Level 186H, Cholesterol Level 259H, LDL Cholesterol 195H, HDL Cholesterol 35L, Cholesterol/HDL Ratio 7.4H, Vitamin B12 Level 829, Folate 9.9, Thyroid Stimulating Hormone (TSH) 0.552 , Free Thyroxine 0.90 Height (Feet): 5 Height (Inches): 6.00 Weight (Pounds): 184 General Appearance: no apparent distress Cardiovascular: regular rhythm Respiratory/Chest: lungs clear Abdomen: soft, distended Maurilio Arroyo MD Dec 19, 2017 10:41
[2017-12-19] MEDS ORDERED: LORazepam 1mg tab ORAL PRN (11:09)
--- NOTE | 2017-12-19 11:32 | Cardiac Electrophysiology PN ---
Assessment/Plan Assessment/Plan 1. Chest pain. Completely ruled out for ID protocol. Echocardiogram nl EF. On aspirin 162 mg daily as well as metoprolol 12.5 mg b.i.d. and Lipitor 2. Hypertension, on metoprolol 12.5 mg b.i.d. and Norvasc 5 mg daily. 3. Diabetes, on insulin. 4. End-stage renal disease, on hemodialysis. 5. Depression, on Zoloft. DW RN Subjective Subjective No chest pain or SOB. Objective Last 24 Hour Vital Signs Date Time Temp Pulse Resp B/P (MAP) Pulse Ox O2 Delivery O2 Flow Rate FiO2 12/19/17 10:14 148/71 12/19/17 10:14 61 148/71 12/19/17 10:13 61 148/71 12/19/17 09:00 Room Air 12/19/17 08:00 97.8 67 18 148/71 (96) 98 97.8 12/19/17 04:00 98.0 63 20 156/74 (101) 98 98.0 12/19/17 04:00 61 12/19/17 00:00 65 12/18/17 23:52 67 145/76 (99) 12/18/17 21:00 Room Air 12/18/17 20:38 74 152/75 12/18/17 20:00 91 12/18/17 20:00 98.4 74 20 152/72 (98) 97 98.4 12/18/17 16:00 68 12/18/17 16:00 97.7 61 18 134/79 (97) 98 97.7 12/18/17 12:00 98.0 65 20 144/71 (95) 99 98.0 12/18/17 12:00 60 Intake and Output 12/18/17 12/19/17 19:00 07:00 Intake Total 1200 ml Output Total 950 ml Balance 1200 ml -950 ml Intake Oral 1200 ml Output Urine Total 950 ml # Voids 1 4 # Bowel Movements 1 Laboratory Tests Test 12/18/17 19:00 12/19/17 03:14 Troponin I 0.000 ng/mL (0.000-0.056) 0.000 ng/mL (0.000-0.056) White Blood Count 4.6 K/UL (4.8-10.8) L Red Blood Count 4.53 M/UL (4.70-6.10) L Hemoglobin 13.5 G/DL (14.2-18.0) L Hematocrit 41.0 % (42.0-52.0) L Mean Corpuscular Volume 91 FL (80-99) Mean Corpuscular Hemoglobin 29.9 PG (27.0-31.0) Mean Corpuscular Hemoglobin Concent 33.0 G/DL (32.0-36.0) Red Cell Distribution Width 14.2 % (11.6-14.8) Platelet Count 193 K/UL (150-450) Mean Platelet Volume 7.1 FL (6.5-10.1) Neutrophils (%) (Auto) 65.3 % (45.0-75.0) Lymphocytes (%) (Auto) 15.3 % (20.0-45.0) L Monocytes (%) (Auto) 13.7 % (1.0-10.0) H Eosinophils (%) (Auto) 4.4 % (0.0-3.0) H Basophils (%) (Auto) 1.2 % (0.0-2.0) Sodium Level 131 MMOL/L (136-145) L Potassium Level 4.0 MMOL/L (3.5-5.1) Chloride Level 94 MMOL/L (98-107) L Carbon Dioxide Level 24 MMOL/L (21-32) Anion Gap 13 mmol/L (5-15) Blood Urea Nitrogen 54 mg/dL (7-18) H Creatinine 7.9 MG/DL (0.55-1.30) H Estimat Glomerular Filtration Rate mL/min (>60) Glucose Level 96 MG/DL (74-106) Hemoglobin A1c 5.4 % (4.3-6.0) Uric Acid 4.3 MG/DL (2.6-7.2) Calcium Level 9.0 MG/DL (8.5-10.1) Phosphorus Level 3.7 MG/DL (2.5-4.9) Magnesium Level 1.7 MG/DL (1.8-2.4) L Iron Level 76 ug/dL (50-175) Total Iron Binding Capacity 177 ug/dL (250-450) L Percent Iron Saturation 43 % (15-50) Unsaturated Iron Binding 101 ug/dL (112-346) L Ferritin 745 NG/ML (8-388) H Total Bilirubin 0.4 MG/DL (0.2-1.0) Gamma Glutamyl Transpeptidase 38 U/L (5-85) Aspartate Amino Transf (AST/SGOT) 20 U/L (15-37) Alanine Aminotransferase (ALT/SGPT) 15 U/L (12-78) Alkaline Phosphatase 79 U/L (46-116) Total Creatine Kinase 242 U/L (26-308) C-Reactive Protein, Quantitative < 0.4 mg/dL (0.00-0.90) Pro-B-Type Natriuretic Peptide 788 pg/mL (0-125) H Total Protein 6.1 G/DL (6.4-8.2) L Albumin 3.5 G/DL (3.4-5.0) Globulin 2.6 g/dL Albumin/Globulin Ratio 1.3 (1.0-2.7) Triglycerides Level 186 MG/DL (30-150) H Cholesterol Level 259 MG/DL (< 200) H LDL Cholesterol 195 mg/dL (<100) H HDL Cholesterol 35 MG/DL (40-60) L Cholesterol/HDL Ratio 7.4 (3.3-4.4) H Vitamin B12 Level 829 PG/ML (193-986) Folate 9.9 NG/ML (8.6-58.9) Thyroid Stimulating Hormone (TSH) 0.552 uiU/mL (0.358-3.740) Free Thyroxine 0.90 NG/DL (0.76-1.46) Objective HEAD AND NECK: No JVD or carotid bruit. LUNGS: Clear. CARDIOVASCULAR: Regular S1 and S2 with no gallop or murmur. ABDOMEN: Soft. EXTREMITIES: No pitting edema. SKIN: Dialysis access and AV shunt in the left forearm. Everett Stephesnon MD Dec 19, 2017 11:32
--- NOTE | 2017-12-19 12:55 | General Progress Note ---
Assessment/Plan Problem List: (1) Depression ICD Codes: F32.9 - Major depressive disorder, single episode, unspecified SNOMED: 80317454 Qualifiers: Qualified Codes: F32.0 - Major depressive disorder, single episode, mild (2) Anemia ICD Codes: D64.9 - Anemia, unspecified SNOMED: 293611503 (3) Chest pain ICD Codes: R07.9 - Chest pain SNOMED: 10152667 (4) ESRD (end stage renal disease) on dialysis ICD Codes: N18.6 - End stage renal disease; Z99.2 - Dependence on renal dialysis SNOMED: 155769145 Status: progressing Assessment/Plan not safe to go home needs snf placement first depressed hallucinations chest pain r/o acs Subjective ROS Limited/Unobtainable: Yes Cardiovascular: Reports: no symptoms Allergies: Coded Allergies: No Known Allergies (Unverified , 11/12/12) Objective Last 24 Hour Vital Signs Date Time Temp Pulse Resp B/P (MAP) Pulse Ox O2 Delivery O2 Flow Rate FiO2 12/19/17 12:00 98.2 68 18 158/78 (104) 99 98.2 12/19/17 12:00 68 12/19/17 11:33 71 12/19/17 10:14 148/71 12/19/17 10:14 61 148/71 12/19/17 10:13 61 148/71 12/19/17 09:00 Room Air 12/19/17 08:00 97.8 67 18 148/71 (96) 98 97.8 12/19/17 04:00 98.0 63 20 156/74 (101) 98 98.0 12/19/17 04:00 61 12/19/17 00:00 65 12/18/17 23:52 67 145/76 (99) 12/18/17 21:00 Room Air 12/18/17 20:38 74 152/75 12/18/17 20:00 91 12/18/17 20:00 98.4 74 20 152/72 (98) 97 98.4 12/18/17 16:00 68 12/18/17 16:00 97.7 61 18 134/79 (97) 98 97.7 Intake and Output 12/18/17 12/19/17 19:00 07:00 Intake Total 1200 ml Output Total 950 ml Balance 1200 ml -950 ml Intake Oral 1200 ml Output Urine Total 950 ml # Voids 1 4 # Bowel Movements 1 Laboratory Tests 12/18/17 19:00: Troponin I 0.000 12/19/17 03:14: Troponin I 0.000, White Blood Count 4.6L, Red Blood Count 4.53L, Hemoglobin 13.5L, Hematocrit 41.0L, Mean Corpuscular Volume 91, Mean Corpuscular Hemoglobin 29.9, Mean Corpuscular Hemoglobin Concent 33.0, Red Cell Distribution Width 14.2, Platelet Count 193, Mean Platelet Volume 7.1, Neutrophils (%) (Auto) 65.3, Lymphocytes (%) (Auto) 15.3L, Monocytes (%) (Auto) 13.7H, Eosinophils (%) (Auto) 4.4H, Basophils (%) (Auto) 1.2, Sodium Level 131L , Potassium Level 4.0, Chloride Level 94L, Carbon Dioxide Level 24, Anion Gap 13 , Blood Urea Nitrogen 54H, Creatinine 7.9H, Estimat Glomerular Filtration Rate , Glucose Level 96, Hemoglobin A1c 5.4, Uric Acid 4.3, Calcium Level 9.0, Phosphorus Level 3.7, Magnesium Level 1.7L, Iron Level 76, Total Iron Binding Capacity 177L, Percent Iron Saturation 43, Unsaturated Iron Binding 101L, Ferritin 745H, Total Bilirubin 0.4, Gamma Glutamyl Transpeptidase 38, Aspartate Amino Transf (AST/SGOT) 20, Alanine Aminotransferase (ALT/SGPT) 15, Alkaline Phosphatase 79, Total Creatine Kinase 242, C-Reactive Protein, Quantitative < 0.4, Pro-B-Type Natriuretic Peptide 788H, Total Protein 6.1L, Albumin 3.5, Globulin 2.6, Albumin/Globulin Ratio 1.3, Triglycerides Level 186H, Cholesterol Level 259H, LDL Cholesterol 195H, HDL Cholesterol 35L, Cholesterol/HDL Ratio 7.4H, Vitamin B12 Level 829, Folate 9.9, Thyroid Stimulating Hormone (TSH) 0.552 , Free Thyroxine 0.90 Height (Feet): 5 Height (Inches): 6.00 Weight (Pounds): 184 Cardiovascular: normal rate Respiratory/Chest: lungs clear Abdomen: soft Samantha Head MD Dec 19, 2017 12:55
--- NOTE | 2017-12-19 13:07 | General Progress Note ---
Assessment/Plan Status: stable, progressing Assessment/Plan MDD Encephalopathy Anxiety -Seroquel 50mg qhs -Seroquel prn -cont Zoloft Subjective Date patient seen: Dec 19, 2017 Neurologic/Psychiatric: Reports: anxiety, depressed, emotional problems Allergies: Coded Allergies: No Known Allergies (Unverified , 11/12/12) Objective Last 24 Hour Vital Signs Date Time Temp Pulse Resp B/P (MAP) Pulse Ox O2 Delivery O2 Flow Rate FiO2 12/19/17 12:00 98.2 68 18 158/78 (104) 99 98.2 12/19/17 12:00 68 12/19/17 11:33 71 12/19/17 10:14 148/71 12/19/17 10:14 61 148/71 12/19/17 10:13 61 148/71 12/19/17 09:00 Room Air 12/19/17 08:00 97.8 67 18 148/71 (96) 98 97.8 12/19/17 04:00 98.0 63 20 156/74 (101) 98 98.0 12/19/17 04:00 61 12/19/17 00:00 65 12/18/17 23:52 67 145/76 (99) 12/18/17 21:00 Room Air 12/18/17 20:38 74 152/75 12/18/17 20:00 91 12/18/17 20:00 98.4 74 20 152/72 (98) 97 98.4 12/18/17 16:00 68 12/18/17 16:00 97.7 61 18 134/79 (97) 98 97.7 Intake and Output 12/18/17 12/19/17 19:00 07:00 Intake Total 1200 ml Output Total 950 ml Balance 1200 ml -950 ml Intake Oral 1200 ml Output Urine Total 950 ml # Voids 1 4 # Bowel Movements 1 Laboratory Tests 12/18/17 19:00: Troponin I 0.000 12/19/17 03:14: Troponin I 0.000, White Blood Count 4.6L, Red Blood Count 4.53L, Hemoglobin 13.5L, Hematocrit 41.0L, Mean Corpuscular Volume 91, Mean Corpuscular Hemoglobin 29.9, Mean Corpuscular Hemoglobin Concent 33.0, Red Cell Distribution Width 14.2, Platelet Count 193, Mean Platelet Volume 7.1, Neutrophils (%) (Auto) 65.3, Lymphocytes (%) (Auto) 15.3L, Monocytes (%) (Auto) 13.7H, Eosinophils (%) (Auto) 4.4H, Basophils (%) (Auto) 1.2, Sodium Level 131L , Potassium Level 4.0, Chloride Level 94L, Carbon Dioxide Level 24, Anion Gap 13 , Blood Urea Nitrogen 54H, Creatinine 7.9H, Estimat Glomerular Filtration Rate , Glucose Level 96, Hemoglobin A1c 5.4, Uric Acid 4.3, Calcium Level 9.0, Phosphorus Level 3.7, Magnesium Level 1.7L, Iron Level 76, Total Iron Binding Capacity 177L, Percent Iron Saturation 43, Unsaturated Iron Binding 101L, Ferritin 745H, Total Bilirubin 0.4, Gamma Glutamyl Transpeptidase 38, Aspartate Amino Transf (AST/SGOT) 20, Alanine Aminotransferase (ALT/SGPT) 15, Alkaline Phosphatase 79, Total Creatine Kinase 242, C-Reactive Protein, Quantitative < 0.4, Pro-B-Type Natriuretic Peptide 788H, Total Protein 6.1L, Albumin 3.5, Globulin 2.6, Albumin/Globulin Ratio 1.3, Triglycerides Level 186H, Cholesterol Level 259H, LDL Cholesterol 195H, HDL Cholesterol 35L, Cholesterol/HDL Ratio 7.4H, Vitamin B12 Level 829, Folate 9.9, Thyroid Stimulating Hormone (TSH) 0.552 , Free Thyroxine 0.90 Height (Feet): 5 Height (Inches): 6.00 Weight (Pounds): 184 General Appearance: alert, moderate distress, agitated Neurologic: oriented x 3, responsive, depressed affect Chely Kulkarni MD Dec 19, 2017 13:07
[2017-12-19] MEDS: Atorvastatin 20mg tab ORAL SCH (21:15)
[2017-12-20] VITALS: BP 140/94
[2017-12-20 04:00] VITALS: BP 144/76
[2017-12-20] MEDS: NovoLOG Insulin Flexpen SUBQ SCH ×4 (06:01→21:00)
[2017-12-20 08:00] VITALS: BP 147/79
[2017-12-20] MEDS: Docusate 100mg cap ORAL SCH ×3 (08:48→17:20)
[2017-12-20] MEDS: Metoprolol Tartrate 12.5mg TAB ORAL SCH ×2 (08:48→20:35)
[2017-12-20] MEDS: Sertraline 100mg tab ORAL SCH (08:48)
[2017-12-20] MEDS: Aspirin Baby 81mg ORAL SCH (09:00)
[2017-12-20 09:16] LABS: BASOPHILS % (AUTO) 1.1 % (0.0-2.0); EOSINOPHILS % (AUTO) 3.7 % (0.0-3.0); HEMATOCRIT 45.9 % (42.0-52.0); HEMOGLOBIN 14.8 G/DL (14.2-18.0); LYMPHOCYTES % (AUTO) 8.5 % (20.0-45.0); MEAN CORPUSCULAR VOLUME 91 FL (80-99); MONOCYTES % (AUTO) 13.8 % (1.0-10.0); NEUTROPHILS % (AUTO) 72.9 % (45.0-75.0); PLATELET COUNT 208 K/UL (150-450); RED BLOOD COUNT 5.04 M/UL (4.70-6.10); RED CELL DISTRIBUTION WIDTH 14.3 % (11.6-14.8); WHITE BLOOD COUNT 6.4 K/UL (4.8-10.8)
--- NOTE | 2017-12-20 09:17 | Cardiac Electrophysiology PN ---
Assessment/Plan Assessment/Plan 1. Chest pain. Ruled out for GA protocol. Echocardiogram nl EF. On aspirin 162 mg daily,metoprolol 12.5 mg b.i.d. and Lipitor No further 2. Hypertension, on metoprolol 12.5 mg b.i.d. and Norvasc 5 mg daily. 3. Diabetes, on insulin. 4. End-stage renal disease, on hemodialysis. 5. Depression, on Zoloft. SAW RN Subjective Subjective No chest pain or SOB.Wants to go home. Still feel depressed Objective Last 24 Hour Vital Signs Date Time Temp Pulse Resp B/P (MAP) Pulse Ox O2 Delivery O2 Flow Rate FiO2 12/20/17 09:00 Room Air 12/20/17 08:48 81 147/79 12/20/17 08:48 81 147/79 12/20/17 08:00 76 12/20/17 08:00 97.9 81 20 147/79 (101) 99 97.9 12/20/17 04:00 97.0 66 20 144/76 (98) 94 97.0 12/20/17 04:00 68 12/20/17 00:00 97.3 65 22 140/94 (109) 97 97.3 12/20/17 00:00 63 12/19/17 21:16 64 155/79 12/19/17 21:00 Room Air 12/19/17 20:00 97.7 64 21 155/79 (104) 97 97.7 12/19/17 20:00 56 12/19/17 19:10 Room Air 12/19/17 18:40 98.0 59 189/103 (131) 98.0 12/19/17 16:00 97.8 73 20 169/73 (105) 98 97.8 12/19/17 16:00 72 12/19/17 15:00 Room Air 12/19/17 15:00 97.8 71 20 164/84 (110) 97.8 12/19/17 12:00 98.2 68 18 158/78 (104) 99 98.2 12/19/17 12:00 68 12/19/17 11:33 71 12/19/17 10:14 148/71 12/19/17 10:14 61 148/71 12/19/17 10:13 61 148/71 Intake and Output 12/19/17 12/20/17 19:00 07:00 Intake Total 240 ml Output Total 400 ml 2400 ml Balance -160 ml -2400 ml Intake Oral 240 ml Output Urine Total 400 ml 400 ml Hemodialysis UF 2000 ml Laboratory Tests Test 12/20/17 08:35 White Blood Count Pending Red Blood Count Pending Hemoglobin Pending Hematocrit Pending Mean Corpuscular Volume Pending Mean Corpuscular Hemoglobin Pending Mean Corpuscular Hemoglobin Concent Pending Red Cell Distribution Width Pending Platelet Count Pending Mean Platelet Volume Pending Neutrophils (%) (Auto) Pending Lymphocytes (%) (Auto) Pending Monocytes (%) (Auto) Pending Eosinophils (%) (Auto) Pending Basophils (%) (Auto) Pending Sodium Level Pending Potassium Level Pending Chloride Level Pending Carbon Dioxide Level Pending Blood Urea Nitrogen Pending Creatinine Pending Estimat Glomerular Filtration Rate Pending Glucose Level Pending Calcium Level Pending Total Bilirubin Pending Aspartate Amino Transf (AST/SGOT) Pending Alanine Aminotransferase (ALT/SGPT) Pending Alkaline Phosphatase Pending Total Protein Pending Albumin Pending Globulin Pending Microbiology Date/Time Source Procedure Growth Status 12/18/17 02:15 Nasal Nares MRSA Culture - Final NO METHICILLIN RESISTANT STAPH AUREUS... Complete Objective HEAD AND NECK: No JVD or carotid bruit. LUNGS: Clear. CARDIOVASCULAR: Regular S1 and S2 with no gallop or murmur. ABDOMEN: Soft. EXTREMITIES: No pitting edema. SKIN: Dialysis access and AV shunt in the left forearm. Everett Stephenson MD Dec 20, 2017 09:17
[2017-12-20 09:39] LABS: ALANINE AMINOTRANSFERASE 19 U/L (12-78); ALBUMIN/GLOBULIN RATIO 1.1 (1.0-2.7); ALKALINE PHOSPHATASE 107 U/L (46-116); ANION GAP 15 mmol/L (5-15); ASPARTATE AMINO TRANSFERASE 35 U/L (15-37); BILIRUBIN,TOTAL 0.4 MG/DL (0.2-1.0); BLOOD UREA NITROGEN 60 mg/dL (7-18); CALCIUM 9.4 MG/DL (8.5-10.1); CARBON DIOXIDE 24 MMOL/L (21-32); CHLORIDE 89 MMOL/L (98-107); CREATININE 8.6 MG/DL (0.55-1.30); POTASSIUM 3.6 MMOL/L (3.5-5.1); SODIUM 128 MMOL/L (136-145)
[2017-12-20] MEDS: Nitroglycerin Patch 0.4mg TDERMAL SCH (09:56)
--- NOTE | 2017-12-20 10:18 | Nephrology Progress Note ---
Assessment/Plan Problem List: (1) ESRD (end stage renal disease) on dialysis (2) Anemia (3) Depression Assessment ESRD last dialysed 12/19 ACS DM HTN h/o GI bleed Depression Plan Per cardio- HD M W Fr Adjust meds for BP and BS per orders add Statins stable from renal stand for DC Subjective ROS Limited/Unobtainable: No Constitutional: Reports: other - anxious to go home Objective Objective Last 24 Hour Vital Signs Date Time Temp Pulse Resp B/P (MAP) Pulse Ox O2 Delivery O2 Flow Rate FiO2 12/20/17 09:56 147/79 12/20/17 09:00 Room Air 12/20/17 08:48 81 147/79 12/20/17 08:48 81 147/79 12/20/17 08:00 76 12/20/17 08:00 97.9 81 20 147/79 (101) 99 97.9 12/20/17 04:00 97.0 66 20 144/76 (98) 94 97.0 12/20/17 04:00 68 12/20/17 00:00 97.3 65 22 140/94 (109) 97 97.3 12/20/17 00:00 63 12/19/17 21:16 64 155/79 12/19/17 21:00 Room Air 12/19/17 20:00 97.7 64 21 155/79 (104) 97 97.7 12/19/17 20:00 56 12/19/17 19:10 Room Air 12/19/17 18:40 98.0 59 189/103 (131) 98.0 12/19/17 16:00 97.8 73 20 169/73 (105) 98 97.8 12/19/17 16:00 72 12/19/17 15:00 Room Air 12/19/17 15:00 97.8 71 20 164/84 (110) 97.8 12/19/17 12:00 98.2 68 18 158/78 (104) 99 98.2 12/19/17 12:00 68 12/19/17 11:33 71 Intake and Output 12/19/17 12/20/17 19:00 07:00 Intake Total 240 ml Output Total 400 ml 2400 ml Balance -160 ml -2400 ml Intake Oral 240 ml Output Urine Total 400 ml 400 ml Hemodialysis UF 2000 ml Laboratory Tests 12/20/17 08:35: White Blood Count 6.4, Red Blood Count 5.04, Hemoglobin 14.8, Hematocrit 45.9, Mean Corpuscular Volume 91, Mean Corpuscular Hemoglobin 29.4, Mean Corpuscular Hemoglobin Concent 32.4, Red Cell Distribution Width 14.3, Platelet Count 208, Mean Platelet Volume 7.8, Neutrophils (%) (Auto) 72.9, Lymphocytes (%) (Auto) 8.5L, Monocytes (%) (Auto) 13.8H, Eosinophils (%) (Auto) 3.7H, Basophils (%) ( Auto) 1.1, Sodium Level 128L, Potassium Level 3.6, Chloride Level 89L, Carbon Dioxide Level 24, Anion Gap 15, Blood Urea Nitrogen 60H, Creatinine 8.6H, Estimat Glomerular Filtration Rate , Glucose Level 145H, Calcium Level 9.4, Total Bilirubin 0.4, Aspartate Amino Transf (AST/SGOT) 35, Alanine Aminotransferase (ALT/SGPT) 19, Alkaline Phosphatase 107, Total Protein 7.6, Albumin 4.0, Globulin 3.6, Albumin/Globulin Ratio 1.1 Height (Feet): 5 Height (Inches): 6.00 Weight (Pounds): 180 General Appearance: no apparent distress Cardiovascular: normal rate Respiratory/Chest: decreased breath sounds Abdomen: soft Maurilio Arroyo MD Dec 20, 2017 10:18
[2017-12-20 12:00] VITALS: BP 147/85
--- NOTE | 2017-12-20 12:30 | General Progress Note ---
Assessment/Plan Assessment/Plan MDD Encephalopathy Anxiety -Seroquel 50mg qhs -Seroquel prn -cont Zoloft Subjective Neurologic/Psychiatric: Reports: anxiety, depressed, emotional problems Allergies: Coded Allergies: No Known Allergies (Unverified , 11/12/12) Subjective the pt is doing better Objective Last 24 Hour Vital Signs Date Time Temp Pulse Resp B/P (MAP) Pulse Ox O2 Delivery O2 Flow Rate FiO2 12/20/17 09:56 147/79 12/20/17 09:00 Room Air 12/20/17 08:48 81 147/79 12/20/17 08:48 81 147/79 12/20/17 08:00 76 12/20/17 08:00 97.9 81 20 147/79 (101) 99 97.9 12/20/17 04:00 97.0 66 20 144/76 (98) 94 97.0 12/20/17 04:00 68 12/20/17 00:00 97.3 65 22 140/94 (109) 97 97.3 12/20/17 00:00 63 12/19/17 21:16 64 155/79 12/19/17 21:00 Room Air 12/19/17 20:00 97.7 64 21 155/79 (104) 97 97.7 12/19/17 20:00 56 12/19/17 19:10 Room Air 12/19/17 18:40 98.0 59 189/103 (131) 98.0 12/19/17 16:00 97.8 73 20 169/73 (105) 98 97.8 12/19/17 16:00 72 12/19/17 15:00 Room Air 12/19/17 15:00 97.8 71 20 164/84 (110) 97.8 Intake and Output 12/19/17 12/20/17 19:00 07:00 Intake Total 240 ml Output Total 400 ml 2400 ml Balance -160 ml -2400 ml Intake Oral 240 ml Output Urine Total 400 ml 400 ml Hemodialysis UF 2000 ml Laboratory Tests 12/20/17 08:35: White Blood Count 6.4, Red Blood Count 5.04, Hemoglobin 14.8, Hematocrit 45.9, Mean Corpuscular Volume 91, Mean Corpuscular Hemoglobin 29.4, Mean Corpuscular Hemoglobin Concent 32.4, Red Cell Distribution Width 14.3, Platelet Count 208, Mean Platelet Volume 7.8, Neutrophils (%) (Auto) 72.9, Lymphocytes (%) (Auto) 8.5L, Monocytes (%) (Auto) 13.8H, Eosinophils (%) (Auto) 3.7H, Basophils (%) ( Auto) 1.1, Sodium Level 128L, Potassium Level 3.6, Chloride Level 89L, Carbon Dioxide Level 24, Anion Gap 15, Blood Urea Nitrogen 60H, Creatinine 8.6H, Estimat Glomerular Filtration Rate , Glucose Level 145H, Calcium Level 9.4, Total Bilirubin 0.4, Aspartate Amino Transf (AST/SGOT) 35, Alanine Aminotransferase (ALT/SGPT) 19, Alkaline Phosphatase 107, Total Protein 7.6, Albumin 4.0, Globulin 3.6, Albumin/Globulin Ratio 1.1 Height (Feet): 5 Height (Inches): 6.00 Weight (Pounds): 180 General Appearance: no apparent distress, alert Neurologic: oriented x 3, responsive, depressed affect Chely Kulkarni MD Dec 20, 2017 12:30
[2017-12-20 16:00] VITALS: BP 149/83
[2017-12-20 20:00] VITALS: BP 159/80
[2017-12-20] MEDS: Atorvastatin 20mg tab ORAL SCH (20:36)
[2017-12-21] VITALS: BP 159/75
[2017-12-21] MEDS: Norco 5mg/325mg tab ORAL PRN (02:46)
[2017-12-21 04:00] VITALS: BP 148/73
[2017-12-21] MEDS: NovoLOG Insulin Flexpen SUBQ SCH (06:15)
[2017-12-21] MEDS: Aspirin Baby 81mg ORAL SCH (08:48)
[2017-12-21] MEDS: Docusate 100mg cap ORAL SCH (08:48)
[2017-12-21] MEDS: Sertraline 100mg tab ORAL SCH (08:48)
[2017-12-21] MEDS: Metoprolol Tartrate 12.5mg TAB ORAL SCH (08:56)
--- NOTE | 2017-12-21 09:19 | Nephrology Progress Note ---
Assessment/Plan Problem List: (1) ESRD (end stage renal disease) on dialysis (2) Anemia (3) Depression Assessment ESRD last dialysed 12/19 next today ACS DM HTN h/o GI bleed Depression Plan Per cardio- HD M W Fr Adjust meds for BP and BS per orders add Statins stable from renal stand for DC Subjective ROS Limited/Unobtainable: No Constitutional: Reports: other - anxious to leave- wants to get his HD at [facility] today Objective Objective Last 24 Hour Vital Signs Date Time Temp Pulse Resp B/P (MAP) Pulse Ox O2 Delivery O2 Flow Rate FiO2 12/21/17 04:00 66 12/21/17 04:00 98.1 64 21 148/73 (98) 95 98.1 12/21/17 00:00 69 12/21/17 00:00 97.8 59 18 159/75 (103) 94 97.8 12/20/17 21:00 Room Air 12/20/17 20:35 85 149/83 12/20/17 20:00 88 12/20/17 20:00 97.9 73 20 159/80 (106) 100 97.9 12/20/17 16:00 85 12/20/17 16:00 97.7 82 20 149/83 (105) 99 97.7 12/20/17 12:00 97.9 71 20 147/85 (105) 98 97.9 12/20/17 12:00 75 12/20/17 09:56 147/79 Intake and Output 12/20/17 12/21/17 19:00 07:00 Intake Total 450 ml Balance 450 ml Intake Oral 450 ml # Voids 3 Height (Feet): 5 Height (Inches): 6.00 Weight (Pounds): 166 General Appearance: no apparent distress Cardiovascular: normal rate Abdomen: soft Objective no change Maurilio Arroyo MD Dec 21, 2017 09:19
--- NOTE | 2017-12-21 09:21 | Cardiac Electrophysiology PN ---
Assessment/Plan Assessment/Plan 1. Chest pain. Ruled out for [place] protocol. Echocardiogram nl EF. On aspirin 162 mg daily,metoprolol 12.5 mg b.i.d. and Lipitor No further CP. Wants to go home. 2. Hypertension, on metoprolol 12.5 mg b.i.d. and Norvasc 5 mg daily. 3. Diabetes, on insulin. 4. End-stage renal disease, on hemodialysis. 5. Depression, on Zoloft. SAW RN Subjective Subjective No chest pain or SOB.Is being discharged. Doesn't want to stay for HD. Objective Last 24 Hour Vital Signs Date Time Temp Pulse Resp B/P (MAP) Pulse Ox O2 Delivery O2 Flow Rate FiO2 12/21/17 04:00 66 12/21/17 04:00 98.1 64 21 148/73 (98) 95 98.1 12/21/17 00:00 69 12/21/17 00:00 97.8 59 18 159/75 (103) 94 97.8 12/20/17 21:00 Room Air 12/20/17 20:35 85 149/83 12/20/17 20:00 88 12/20/17 20:00 97.9 73 20 159/80 (106) 100 97.9 12/20/17 16:00 85 12/20/17 16:00 97.7 82 20 149/83 (105) 99 97.7 12/20/17 12:00 97.9 71 20 147/85 (105) 98 97.9 12/20/17 12:00 75 12/20/17 09:56 147/79 Intake and Output 12/20/17 12/21/17 19:00 07:00 Intake Total 450 ml Balance 450 ml Intake Oral 450 ml # Voids 3 Objective HEAD AND NECK: No JVD or carotid bruit. LUNGS: Clear. CARDIOVASCULAR: Regular S1 and S2 with no gallop or murmur. ABDOMEN: Soft. EXTREMITIES: No pitting edema. SKIN: Dialysis access and AV shunt in the left forearm. Everett Stephenson MD Dec 21, 2017 09:21
--- NOTE | 2017-12-24 10:53 | Discharge Summary ---
Discharge Summary Discharge Summary _ DATE OF ADMISSION: 12/18/2017 DATE OF DISCHARGE: 12/21/2017 REASON FOR ADMISSION: 77 years old male with past medical history significant for hypertension, coronary artery disease, history of myocardial infarction, end-stage renal disease on hemodialysis, diabetes mellitus, depression, presented to emergency department with chief complaint of chest pain. Onset of pain happened few days ago. Pain intermittent ,sharp ,and localized in the left chest, no radiation, 7/7 on a scale 1 to 10. No diaphoresis . 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 Patient received aspirin and nitroglycerin by paramedics. Patient reported feeling better afterwards. Patient reported feeling depressed,but no suicidal or homicidal thoughts. Vital signs were stable except slightly elevated blood pressure 159/77. Pulse oximetry was stable on room air. Troponin was negative. EKG revealed normal sinus rhythm. Chest x-ray revealed no acute cardiopulmonary pathology. WBC 3.2 ,stable hemoglobin and hematocrit. Sodium 131. BUN 35 and creatinine 6.6, consistent with known history of end-stage renal disease. Patient admitted with diagnosis of chest pain, depression. CONSULTANTS: composite boat builder Dr. Stephenson management specialist Dr. Arroyo psychiatrist [facility] COURSE: Patient admitted to telemetry floor. Curing Pickling Packer closely followed. Serial troponin were negative. EKG revealed no acute ischemic changes. Patient was ruled out for acute IN. Echocardiogram revealed preserved ejection fraction of 60% and right ventricular systolic pressure of 30. No wall motion abnormalities noted. Patient was on aspirin and beta irvin. Blood pressure was managed with beta irvin and calcium channel irvin. Lipid panel revealed elevated total cholesterol 259 , elevated LDL 195, and elevated triglyceride 186. Patient was counseled on low-fat low-cholesterol l mo concentrated sweets diabetic diet. Patient was continued on statin. Blood sugar was managed with sliding scale of insulin as needed and remained stable , hemoglobin A1c 5.4. Psychiatrist seen and evaluated patient, diagnosed patient with major depressive disorder, encephalopathy and anxiety disorder. Patient was continued on Zoloft. Seroquel added on as needed basis. Pain management was addressed, pain was controlled. GI prophayxlis provided. Hemoglobin and hematocrit were closely monitored with goal to keep hemoglobin above 7, remained stable. Bowel regimen instituted. housekeeping department worker seen the patient . Patient lives at home alone . Safety home evaluation was previously completed by Adult Protective Services, and case was closed. Patient refused placement . Home health was arranged. Patient will need to continue with outpatient hemodialysis. housekeeping department worker spoke to assigned Adult protective Services ( APS ) social sciences lecturer and provided home health and dialysis information. APS social sciences lecturer was planning to do home visit Sunday or given patient dialysis schedule Sunday. Chest pain resolved ,blood pressure stable, no shortness of breath . Chest pain was possibly due to anxiety disorder and depression . FINAL DIAGNOSES: chest pain major depressive disorder anxiety disorder end-stage renal disease on hemodialysis diabetes mellitus hypertension mixed hyperlipidemia encephalopathy anemia DISCHARGE MEDICATIONS: See Medication Reconciliation list. DISCHARGE INSTRUCTIONS: Patient was discharged home with home health services I have been assigned to dictate discharge summary for this account. I was not involved in the patient's management. Cecelia Olivas NP Dec 24, 2017 10:53
== END 2017-12-21 09:45 | disposition home health service (06) | DRG 313 ==
LOC: EDBD 00:29 → EMR 01:32 → 2E 01:35 → EDBEDREQ 01:45 → 2E 09:06
PROC: 5A1D70Z Performance of Urinary Filtration, Intermittent, Less than 6 Hours Per Day (ICD-10-PCS; principal; 2017-12-19)
DX: R07.89 Other chest pain (principal); N18.6 End stage renal disease; G93.40 Encephalopathy, unspecified; R44.0 Auditory hallucinations; I12.0 Hypertensive chronic kidney disease with stage 5 chronic kidney disease or end stage renal disease; Z99.2 Dependence on renal dialysis; E11.22 Type 2 diabetes mellitus with diabetic chronic kidney disease; I25.10 Atherosclerotic heart disease of native coronary artery without angina pectoris; K21.9 Gastro-esophageal reflux disease without esophagitis; F32.9 Major depressive disorder, single episode, unspecified; F41.9 Anxiety disorder, unspecified; F29 Unspecified psychosis not due to a substance or known physiological condition; H54.40 Blindness, one eye, unspecified eye; I25.2 Old myocardial infarction
CPT/HCPCS: 36415; 71045; 80048; 80053; 80061; 81003; 82550; 82553; 82607; 82728; 82746; 82962; 82977; 83036; 83540; 83550; 83735; 83880; 84100; 84439; 84443; 84484; 84550; 85025; 86140; 87081; 93005; 93306; J1815; J2785

== ENCOUNTER 2018-05-10 00:01 | Inpatient (IN) | payer MEDICARE, MEDICAID ==
[2018-05-10] VITALS (9 sets, daily range): BP systolic 80–133; BP diastolic 40–87
[~2018-05-10] VITALS: Ht 165.1 cm; Wt 10.6 kg
[~2018-05-10 00:01] MED LIST changes: +LORAZEPAM0.5 MG ORAL
--- NOTE | 2018-05-10 00:05 | NUR ---
ED Nurse Note: per RA 29 chest pain x 2 hours 10/28 SOCIAL SERVICES AIDE. [id number] BS-141 SOCIAL SERVICES AIDE After NTG- 101/69-118 20, on 15 l/non rebreather-100% pulse ox. Pt AO1. NAD. Attached to monitoring coordinator.
--- NOTE | 2018-05-10 00:20 | NUR ---
ED Nurse Note: Blood and urine collected; sent down to lab.
[2018-05-10 00:32] LABS: BASOPHILS % (AUTO) 0.7 % (0.0-2.0); EOSINOPHILS % (AUTO) 3.1 % (0.0-3.0); HEMATOCRIT 31.4 % (42.0-52.0); HEMOGLOBIN 10.1 G/DL (14.2-18.0); MEAN CORPUSCULAR VOLUME 92 FL (80-99); MONOCYTES % (AUTO) 10.6 % (1.0-10.0); NEUTROPHILS % (AUTO) 82.6 % (45.0-75.0); PLATELET COUNT 252 K/UL (150-450); RED BLOOD COUNT 3.43 M/UL (4.70-6.10); RED CELL DISTRIBUTION WIDTH 13.7 % (11.6-14.8); WHITE BLOOD COUNT 6.1 K/UL (4.8-10.8)
[2018-05-10 00:42] LABS: ANION GAP 21 mmol/L (5-15); BLOOD UREA NITROGEN 104 mg/dL (7-18); CALCIUM 9.1 MG/DL (8.5-10.1); CARBON DIOXIDE 19 MMOL/L (21-32); CHLORIDE 86 MMOL/L (98-107); CREATININE 11.9 MG/DL (0.55-1.30); POTASSIUM 4.8 MMOL/L (3.5-5.1); SODIUM 126 MMOL/L (136-145)
--- NOTE | 2018-05-10 00:49 | Emergency Room Report ---
History of Present Illness General Chief Complaint: Chest Pain Source: Patient, Medical Record, EMS Present Illness HPI Patient presents with reports of chest pain On my evaluation patient however is not able to produce this history He reports that he does not feel well There was no reports of vomiting or diarrhea Patient has history of renal failure Denies any flank pain Denies any fevers however again is a very poor historian Unclear regarding any documented fevers at the nursing facility Patient had reported apparently chest pain to the facility and transported for further care Allergies: Coded Allergies: No Known Allergies (Unverified , 11/12/12) Patient History Limited by: medical condition Past Medical History: see triage record Pertinent Family History: unable to obtain Reviewed Nursing Documentation: PMH: Agreed; PSxH: Agreed Nursing Documentation-PMH Past Medical History: No History, Except For Hx Cardiac Problems: Yes - unknown cardiac Hx Hypertension: Yes Hx Diabetes: Yes Hx Cancer: No Hx Gastrointestinal Problems: Yes - kidney stones, prostate Hx Dialysis: Yes - leftb arm shunt History Of Psychiatric Problem: Yes Hx Neurological Problems: No Review of Systems All Other Systems: limited - Other than the ones mentioned in the history of present illness all others are reviewed however they do stay limited due to the patient's mental status Physical Exam Vital Signs Date Time Temp Pulse Resp B/P (MAP) Pulse Ox O2 Delivery O2 Flow Rate FiO2 05/10/18 00:02 97.9 118 20 101/69 100 Non-Rebreather Sp02 EP Interpretation: reviewed, normal General Appearance: mild distress Head: normocephalic, atraumatic Eyes: bilateral eye EOMI ENT: dry mucus membranes Neck: supple, thyroid normal Respiratory: no respiratory distress, no retraction, crackles - Bilaterally Cardiovascular #1: no JVD, tachycardia Gastrointestinal: non tender, soft Musculoskeletal: normal inspection Neurologic: responsive - To physical and verbal stimuli Skin: no rash, warm/dry Lymphatic: no adenopathy Procedures Critical Care Time Critical Care Time 40 minutes for initial critical presentation, tachycardic renal failure, concern for acute cardiopulmonary arrest, not including any procedural time Medical Decision Making Diagnostic Impression: Primary Impression: ACS (acute coronary syndrome) Additional Impressions: Hyponatremia ESRD (end stage renal disease) on dialysis ER Course Patient is a fairly complex patient with multiple differential to consideration including but not limited to cardiac cardiopulmonary and vascular emergencies Blood work is consistent with renal failure Low sodium Patient's x-ray shows pulmonary congestion as well Please note that the urine sample was obtained after the patient was moved upstairs Labs Test 05/10/18 00:20 05/10/18 00:35 White Blood Count 6.1 K/UL (4.8-10.8) Red Blood Count 3.43 M/UL (4.70-6.10) Hemoglobin 10.1 G/DL (14.2-18.0) Hematocrit 31.4 % (42.0-52.0) Mean Corpuscular Volume 92 FL (80-99) Mean Corpuscular Hemoglobin 29.6 PG (27.0-31.0) Mean Corpuscular Hemoglobin Concent 32.3 G/DL (32.0-36.0) Red Cell Distribution Width 13.7 % (11.6-14.8) Platelet Count 252 K/UL (150-450) Mean Platelet Volume 6.2 FL (6.5-10.1) Neutrophils (%) (Auto) 82.6 % (45.0-75.0) Lymphocytes (%) (Auto) 3.0 % (20.0-45.0) Monocytes (%) (Auto) 10.6 % (1.0-10.0) Eosinophils (%) (Auto) 3.1 % (0.0-3.0) Basophils (%) (Auto) 0.7 % (0.0-2.0) Sodium Level 126 MMOL/L (136-145) Potassium Level 4.8 MMOL/L (3.5-5.1) Chloride Level 86 MMOL/L (98-107) Carbon Dioxide Level 19 MMOL/L (21-32) Anion Gap 21 mmol/L (5-15) Blood Urea Nitrogen 104 mg/dL (7-18) Creatinine 11.9 MG/DL (0.55-1.30) Estimat Glomerular Filtration Rate mL/min (>60) Glucose Level 125 MG/DL (74-106) Calcium Level 9.1 MG/DL (8.5-10.1) Total Bilirubin 0.5 MG/DL (0.2-1.0) Aspartate Amino Transf (AST/SGOT) 38 U/L (15-37) Alanine Aminotransferase (ALT/SGPT) 13 U/L (12-78) Alkaline Phosphatase 141 U/L (46-116) Total Creatine Kinase 503 U/L (26-308) Creatine Kinase MB 8.6 NG/ML (0.0-3.6) Creatine Kinase MB Relative Index 1.7 Troponin I 0.000 ng/mL (0.000-0.056) Pro-B-Type Natriuretic Peptide 2961 pg/mL (0-125) Total Protein 7.4 G/DL (6.4-8.2) Albumin 2.9 G/DL (3.4-5.0) Globulin 4.5 g/dL Albumin/Globulin Ratio 0.6 (1.0-2.7) Lipase 190 U/L (73-393) Urine Color Pale yellow Urine Appearance Clear Urine pH 8 (4.5-8.0) Urine Specific Witt 1.010 (1.005-1.035) Urine Protein 4+ (NEGATIVE) Urine Glucose (UA) 2+ (NEGATIVE) Urine Ketones Negative (NEGATIVE) Urine Blood 1+ (NEGATIVE) Urine Nitrite Negative (NEGATIVE) Urine Bilirubin Negative (NEGATIVE) Urine Urobilinogen Normal MG/DL (0.0-1.0) Urine Leukocyte Esterase 2+ (NEGATIVE) Urine RBC 2-4 /HPF (0 - 0) Urine WBC 30-40 /HPF (0 - 0) Urine Squamous Epithelial Cells None /LPF (NONE/OCC) Urine Bacteria Few /HPF (NONE) EKG Diagnostic Results Rate: tachycardiac Rhythm: other ST Segments: other - Sinus tach Rhythm Strip Diag. Results EP Interpretation: yes Rate: 99 Rhythm: NSR, no PVC's, no ectopy Chest X-Ray Diagnostic Results Chest X-Ray Diagnostic Results : Chest X-Ray Ordered: Yes # of Views/Limited/Complete: 1 View Indication: Chest Pain EP Interpretation: Yes Interpretation: no consolidation, no effusion, no pneumothorax, other - Pulmonary congestion Impression: Other - Pulmonary congestion Electronically Signed by: Samantha Moore DO Last Vital Signs Date Time Temp Pulse Resp B/P (MAP) Pulse Ox O2 Delivery O2 Flow Rate FiO2 05/10/18 00:02 97.9 118 20 101/69 100 Non-Rebreather Status: improved Disposition: ADMITTED INPATIENT Condition: Serious Referrals: NOT CHOSEN IPA/,REFERRING (PCP) Samantha Moore DO May 10, 2018 00:49
[2018-05-10 00:55] LABS: ALANINE AMINOTRANSFERASE 13 U/L (12-78); ALBUMIN 2.9 G/DL (3.4-5.0); ALBUMIN/GLOBULIN RATIO 0.6 (1.0-2.7); ALKALINE PHOSPHATASE 141 U/L (46-116); ASPARTATE AMINO TRANSFERASE 38 U/L (15-37); BILIRUBIN,TOTAL 0.5 MG/DL (0.2-1.0); CKMB 8.6 NG/ML (0.0-3.6); CREATINE KINASE 503 U/L (26-308)
[2018-05-10 01:01] LABS: APPEARANCE,URINE CLEAR; BILIRUBIN, URINE NEGATIVE (NEGATIVE); COLOR,URINE PALE YELLOW; GLUCOSE, URINE (UA) 2+ (NEGATIVE); KETONES,URINE NEGATIVE (NEGATIVE); NITRITE,URINE NEGATIVE (NEGATIVE); PH,URINE 8 (4.5-8.0); PROTEIN,URINE 4+ (NEGATIVE); UROBILINOGEN,URINE NORMAL MG/DL (0.0-1.0)
[2018-05-10 01:24] LABS: LEUKOCYTE ESTERASE ,URINE 2+ (NEGATIVE)
--- NOTE | 2018-05-10 04:25 | NUR ---
NURSE NOTES: Pt transferred safely to 2E from ER. Pt belongings verified. youth nutritional monitor applied and pt is SR in the 90s. Report received from Angelo Rhodes RN.Pt is A+Ox1, confused, but denies pain/SOB. Pt shows no signs of distress. Respirations are even and unlabored on 2 L NC. IV site is patent, intact, and saline locked. Bed is at lowest position, brakes engaged, siderails x3, bed alarm on, and call light within reach. Left message with Dr. Head regarding admission orders; awaiting response. Pt is in stable condition at this time; will continue to monitor.
--- NOTE | 2018-05-10 05:14 | NUR ---
TRANSFER TO FLOOR: Patient transferred to [facility] 218-1 as ordered, per MD Sonido . Report given to MINGO Cortés . Belongings given to receiving nurse. Pt AO1. NAD.
--- NOTE | 2018-05-10 06:08 | NUR ---
NURSE NOTES: Left second message with Dr. Head regarding admission orders; awaiting response.
--- NOTE | 2018-05-10 07:06 | NUR ---
HAND-OFF: Report given to MINGO Chaudhary. Pt is in stable condition at this time; plan of care endorsed.
--- NOTE | 2018-05-10 08:41 | Cardiac Electrophysiology PN ---
Subjective Subjective [id number] Objective Last 24 Hour Vital Signs Date Time Temp Pulse Resp B/P (MAP) Pulse Ox O2 Delivery O2 Flow Rate FiO2 05/10/18 04:19 Nasal Cannula 2.0 05/10/18 04:10 120 05/10/18 04:00 97.0 129 18 133/73 (93) 92 05/10/18 03:50 97.9 105 17 116/61 96 Nasal Cannula 2.0 05/10/18 03:30 97.9 105 17 116/61 96 Nasal Cannula 2.0 05/10/18 03:00 97.9 105 17 80/40 98 Nasal Cannula 2.0 05/10/18 02:12 113 14 Non-Rebreather 05/10/18 02:00 97.9 105 14 83/42 97 Nasal Cannula 2.0 05/10/18 00:54 97.9 129 14 115/69 100 Non-Rebreather 05/10/18 00:02 97.9 118 20 101/69 100 Non-Rebreather Intake and Output 05/09/18 05/10/18 19:00 07:00 Intake Total 1300 ml Balance 1300 ml Intake Oral 300 ml IV Total 1000 ml # Bowel Movements 1 Laboratory Tests Test 05/10/18 00:20 05/10/18 00:35 White Blood Count 6.1 K/UL (4.8-10.8) Red Blood Count 3.43 M/UL (4.70-6.10) L Hemoglobin 10.1 G/DL (14.2-18.0) L Hematocrit 31.4 % (42.0-52.0) L Mean Corpuscular Volume 92 FL (80-99) Mean Corpuscular Hemoglobin 29.6 PG (27.0-31.0) Mean Corpuscular Hemoglobin Concent 32.3 G/DL (32.0-36.0) Red Cell Distribution Width 13.7 % (11.6-14.8) Platelet Count 252 K/UL (150-450) Mean Platelet Volume 6.2 FL (6.5-10.1) L Neutrophils (%) (Auto) 82.6 % (45.0-75.0) H Lymphocytes (%) (Auto) 3.0 % (20.0-45.0) L Monocytes (%) (Auto) 10.6 % (1.0-10.0) H Eosinophils (%) (Auto) 3.1 % (0.0-3.0) H Basophils (%) (Auto) 0.7 % (0.0-2.0) Sodium Level 126 MMOL/L (136-145) L Potassium Level 4.8 MMOL/L (3.5-5.1) Chloride Level 86 MMOL/L (98-107) L Carbon Dioxide Level 19 MMOL/L (21-32) L Anion Gap 21 mmol/L (5-15) H Blood Urea Nitrogen 104 mg/dL (7-18) H Creatinine 11.9 MG/DL (0.55-1.30) H Estimat Glomerular Filtration Rate mL/min (>60) Glucose Level 125 MG/DL (74-106) H Calcium Level 9.1 MG/DL (8.5-10.1) Total Bilirubin 0.5 MG/DL (0.2-1.0) Aspartate Amino Transf (AST/SGOT) 38 U/L (15-37) H Alanine Aminotransferase (ALT/SGPT) 13 U/L (12-78) Alkaline Phosphatase 141 U/L (46-116) H Total Creatine Kinase 503 U/L (26-308) H Creatine Kinase MB 8.6 NG/ML (0.0-3.6) H Creatine Kinase MB Relative Index 1.7 Troponin I 0.000 ng/mL (0.000-0.056) Pro-B-Type Natriuretic Peptide 2961 pg/mL (0-125) H Total Protein 7.4 G/DL (6.4-8.2) Albumin 2.9 G/DL (3.4-5.0) L Globulin 4.5 g/dL Albumin/Globulin Ratio 0.6 (1.0-2.7) L Lipase 190 U/L (73-393) Urine Color Pale yellow Urine Appearance Clear Urine pH 8 (4.5-8.0) Urine Specific [place]oe 1.010 (1.005-1.035) Urine Protein 4+ (NEGATIVE) H Urine Glucose (UA) 2+ (NEGATIVE) H Urine Ketones Negative (NEGATIVE) Urine Blood 1+ (NEGATIVE) H Urine Nitrite Negative (NEGATIVE) Urine Bilirubin Negative (NEGATIVE) Urine Urobilinogen Normal MG/DL (0.0-1.0) Urine Leukocyte Esterase 2+ (NEGATIVE) H Urine RBC 2-4 /HPF (0 - 0) H Urine WBC 30-40 /HPF (0 - 0) H Urine Squamous Epithelial Cells None /LPF (NONE/OCC) Urine Bacteria Few /HPF (NONE) Everett Stephenson MD May 10, 2018 08:41
--- NOTE | 2018-05-10 08:43 | NUR ---
NURSE NOTES: Pt in bed in low position, HOB in fowlers, bed alarm on as pt is unstable and weak but knows his limitations, pt is not fully oriented only x1 name only, is confused, Left forearm shunt for dialysis has brill and thrill, IV intact and patent, sacral injury addressed and consultation placed, spr mattress to be placed, md adler stated he will use [facility] for dialysis today he will place order; [facility] already here. Pt denies pain, is calm and cooperative, eating breakfast with no problems, will continue to monitor, md guerrero stated he will address his tachycardia. no s/s of sob or distress
--- NOTE | 2018-05-10 08:58 | Consultation ---
Consult Note Consult Note HPI Patient presents with reports of chest pain On my evaluation patient however is not able to produce this history He reports that he does not feel well There was no reports of vomiting or diarrhea Patient has history of renal failure Denies any flank pain Denies any fevers however again is a very poor historian Unclear regarding any documented fevers at the nursing facility Patient had reported apparently chest pain to the facility and transported for further care Allergies: Coded Allergies: No Known Allergies (Unverified , 11/12/12) Past Medical History: No History, Except For Hx Cardiac Problems: Yes - unknown cardiac Hx Hypertension: Yes Hx Diabetes: Yes Hx Gastrointestinal Problems: Yes - kidney stones, prostate Hx Dialysis: Yes - leftb arm shunt History Of Psychiatric Problem: Yes interviewed examined data reviewed discussed with RN Hx Cardiac Problems: Yes Hx Hypertension: Yes Hx Diabetes: Yes Hx Gastrointestinal Problems: Yes - kidney stones, prostate Hx Dialysis: Yes - MWF History Of Psychiatric Problem: Yes interviewed examined- data reviewed Assessment/Plan Presents with CHF and Low Na ESRD ACS DM HTN h/o GI bleed Depression Plan: HD NORM Per cardio- HD Heladio W Fr Adjust meds for BP and BS per orders Maurilio Arroyo MD May 10, 2018 08:58
--- NOTE | 2018-05-10 09:20 | NUR ---
INTERQUAL CRITERIA MET
[2018-05-10] MEDS: Metoprolol 25mg tab ORAL SCH ×2 (10:32→21:49)
--- NOTE | 2018-05-10 12:07 | Diagnostic Imaging Report ---
Indication: Chest pain Technique: One view of the chest Comparison: 12/18/2017 Findings: Inspiration is suboptimal, resulting in crowding of the bronchovascular markings. Lungs and pleural spaces are otherwise clear. The heart size is borderline enlarged. The aorta is tortuous and calcified Impression: No acute process
--- NOTE | 2018-05-10 13:25 | NUR ---
NURSE NOTES:WOUND CARE NOTES:Pt presents with partial thickness wound sacral cleft (L)2cm x (W)0.6cm.edges flat and adherent to base of wound .Non-blanching erythema periwound.Non-blanchable erythema R heel fluctuant with delineated borders.pt verbalized pain R heel. L heel soft but easily blanches. Tx.Plan:Cleanse sacral wound with Saline.Apply Moisture Barrier .Cover with Optifoam drsg Daily and prn. Cavilon Skin Barrier to R heel .Cover with Optifoam every 7 days and prn. Support surface mattress. Off-load heels with PIllow. Reposition at least every 2hours and prn.
--- NOTE | 2018-05-10 17:13 | NUR ---
CASE MANAGEMENT:REVIEW FROM HOME TO ER SI: CHEST PAIN. 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
--- NOTE | 2018-05-10 17:15 | Consultation ---
DATE OF CONSULTATION: 05/10/2018 CARDIOLOGY CONSULTATION CONSULTING PHYSICIAN: Everett Stephenson M.D. REFERRING PHYSICIAN: Samantha Head M.D. REASON FOR CONSULTATION: Chest pain. HISTORY OF PRESENT ILLNESS: The patient is a 78-year-old gentleman with history of hypertension, end-stage renal disease on hemodialysis as well as diabetes, who was getting dialysis through left arm AV shunt, was brought to the emergency room complaining of chest pain. The patient at the time of my evaluation, denies any chest pain the patient with a security intern. He does not have any shortness of breath and he does not know why he is in the hospital. However, he is a very poor historian and per nurse, the patient is confused. REVIEW OF SYSTEMS: Specifically negative for chest pain. PAST MEDICAL HISTORY: As mentioned above. FAMILY HISTORY: Noncontributory. SOCIAL HISTORY: He is a [facility] resident. Does not smoke or drink alcohol. MEDICATIONS: Per reconciliation. PHYSICAL EXAMINATION: VITAL SIGNS: Blood pressure is 132/73, pulse 120, and respirations 18. He is afebrile. HEAD AND NECK: Showed no JVD. LUNGS: Clear. CARDIOVASCULAR: Shows tachycardic. S1, S2 with no gallop. ABDOMEN: Soft. EXTREMITIES: 1+ ankle edema and AV shunt in the left arm. 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 His labs show white count of 6.1, hemoglobin 10, hematocrit 31, and platelet count 252,000. Sodium 126, potassium 4.8, BUN 104, creatinine 11.9, and glucose 125. First troponin is negative. His CK is 503. ASSESSMENT AND PLAN: 1. Lower extremity edema with an elevated BNP in a patient with renal failure on hemodialysis. The patient will be getting hemodialysis per Dr. Arroyo. 2. Chest pain. Currently denies any chest pain, completely rule out . EKG showed old inferior and anterior wall RI, but no ischemia. We will get an echocardiogram for further evaluation. 3. End-stage renal disease, on hemodialysis per Dr. Arroyo. 4. Diabetes. 5. History of kidney stones. 6. History of psychiatric problems, dementia. Thank you very much, Dr. Head, for allowing me to participate in the care of this patient. Please do not hesitate to contact me for any questions regarding my evaluation. Case was discussed at the bedside with the patient's nurse as well as Dr. Arroyo. Everett Stephenson M.D. DR: NELY JOB#: [id number] CC:
[2018-05-10] MEDS: Docusate 100mg cap ORAL SCH (18:30)
--- NOTE | 2018-05-10 19:30 | NUR ---
NURSE NOTES: Received pt. and report from MINGO Chaudhary. Observed pt. resting in bed. rhic systems safety engineer is in placed, IV site is intact, asymptomatic, and patent. Bed is in lowest position and locked. Call light within reach. No acute distress noted at this time. Will continue plan of care.
--- NOTE | 2018-05-10 19:37 | NUR ---
HAND-OFF: Report given to Carito Wilson.
--- NOTE | 2018-05-10 20:15 | History and Physical Report ---
DATE OF ADMISSION: 05/10/2018 HISTORY OF PRESENT ILLNESS: The patient is admitted for chest pain, acute, rule out acute coronary syndrome. The patient is a poor historian. Also speaks Welsh only. There was no episodes of nausea, vomiting, or diarrhea. No episodes of chills or constipation. PAST MEDICAL HISTORY: Organic brain syndrome, diabetes, and has history of hypertension. The patient also has past medical history of end-stage renal disease, on hemodialysis, history of BPH, history of kidney stones, history of gout, history of GERD, history of NIDDM, anxiety, history of constipation, depression, and insomnia. PAST SURGICAL HISTORY: Related to dialysis. MEDICATIONS: Nexium, insulin, labetalol, multivitamin, Crestor, Senokot, Zoloft, and trazodone. ALLERGIES: No known allergies. FAMILY HISTORY: Noncontributory. SOCIAL HISTORY: Denies alcohol or illicit drugs. Denies smoking. REVIEW OF SYSTEMS: HEENT: Denies headaches. RESPIRATORY: Denies shortness of breath. Denies cough. CARDIOVASCULAR: Does have chest pain. Denies radiation. GASTROINTESTINAL: Denies nausea, vomiting, or diarrhea. Denies pain. Denies chills. However, he is a poor historian. PHYSICAL EXAMINATION: VITAL SIGNS: Temperature is 97.4, pulse is 128, and blood pressure 118/66. HEENT: PERRLA. NECK: Supple. No lymphadenopathy. CHEST: Clear to auscultation. CARDIOVASCULAR: Tachycardic. GASTROINTESTINAL: Distended. Positive bowel sounds. Nontender. No organomegaly. EXTREMITY: A 1+ edema. Reflexes are equal on both sides. Moves all four extremities x1. LABORATORY AND DIAGNOSTIC DATA: WBC of 6.1, hemoglobin of 10.1, and platelets of 252,000. Sodium 126, potassium 4.8, BUN of 104, creatinine of 11.9, and glucose of 125. ASSESSMENT: 1. Chest pain, rule out acute coronary syndrome. 2. End-stage renal disease, on hemodialysis and also hyponatremia. PLAN: I have asked Dr. Stephenson and Dr. Arroyo to see the patient for the above-mentioned diagnoses and treatment. Samantha Head M.D. DR: RAO JOB#: [id number] CC:
--- NOTE | 2018-05-10 21:50 | Consultation ---
History of Present Illness General Date patient seen: May 10, 2018 Chief Complaint: Chest Pain Present Illness HPI 78 year old male with multiple medical comorbidities currently admitted for medical care and management who was noted to have sacral decubitus ulcer on admission. surgery called to evaluate and assist with care and management. patient seen, chart reviewed, patient examined. Allergies: Coded Allergies: No Known Allergies (Unverified , 11/12/12) Medication History Scheduled Allopurinol* (Allopurinol*), 100 MG ORAL DAILY, (Reported) Esomeprazole Magnesium (Nexium), 40 MG ORAL DAILY, (Reported) Hydrocodone/Acetaminophen 5-325* ([place] 5-325*), 1 TAB ORAL NEEDED, (Reported ) Insulin Glargine,Hum.rec.anlog (Lantus), 0 SUBQ BEDTIME, (Reported) Insulin Regular, Human (Humulin R), 10 SUBQ AC+HS, (Reported) Labetalol Hcl* (Normodyne*), 200 MG ORAL TWICE A DAY, (Reported) Lorazepam* (Ativan*), 2 MG ORAL NEEDED, (Reported) Lorazepam* (Lorazepam*), 0.5 MG ORAL BID, (Reported) Multivitamin (Multi Vitamin Daily), 1 EACH PO DAILY, (Reported) [place]-3 Fatty Acids/Fish Oil ([place] 3 Fish Oil Softgel), 1 EACH PO DAILY, ( Reported) Rosuvastatin Calcium (Crestor), 40 MG ORAL DAILY, (Reported) Sennosides (Senna), 8.6 MG PO NEEDED, (Reported) Sertraline Hcl* (Zoloft*), 100 MG ORAL DAILY, (Reported) Trazodone Hcl* (Desyrel*), 100 MG ORAL BEDTIME, (Reported) Zolpidem Tartrate* (Ambien*), 5 MG ORAL BEDTIME, (Reported) Patient History History Provided By: Medical Record, PMD Healthcare decision maker Resuscitation status Full Code Advanced Directive on File No Past Medical/Surgical History Past Medical/Surgical History: (1) Depression (2) Duodenal ulcer (3) Anemia (4) Coffee ground emesis (5) Chest pain (6) Hyponatremia (7) ACS (acute coronary syndrome) (8) ESRD (end stage renal disease) on dialysis Review of Systems All Other Systems: negative except mentioned in HPI Physical Exam General Appearance: no apparent distress Lines, tubes and drains: other HEENT: mucous membranes moist Neck: other Respiratory/Chest: lungs clear Cardiovascular/Chest: normal rate Abdomen: soft, no organomegaly Extremities: other Skin Exam: other Last 24 Hour Vital Signs Date Time Temp Pulse Resp B/P (MAP) Pulse Ox O2 Delivery O2 Flow Rate FiO2 05/10/18 16:44 98.4 05/10/18 16:11 106 05/10/18 16:00 98.1 70 19 119/87 (98) 98 70 05/10/18 12:00 98.4 83 18 91/53 (66) 97 83 05/10/18 10:32 128 118/66 05/10/18 08:20 Room Air 05/10/18 08:03 118 05/10/18 08:00 97.4 128 18 118/66 (83) 99 128 05/10/18 04:19 Nasal Cannula 2.0 05/10/18 04:10 120 05/10/18 04:00 97.0 129 18 133/73 (93) 92 05/10/18 03:50 97.9 105 17 116/61 96 Nasal Cannula 2.0 05/10/18 03:30 97.9 105 17 116/61 96 Nasal Cannula 2.0 05/10/18 03:00 97.9 105 17 80/40 98 Nasal Cannula 2.0 05/10/18 02:12 113 14 Non-Rebreather 05/10/18 02:00 97.9 105 14 83/42 97 Nasal Cannula 2.0 05/10/18 00:54 97.9 129 14 115/69 100 Non-Rebreather 05/10/18 00:02 97.9 118 20 101/69 100 Non-Rebreather Intake and Output 05/09/18 05/10/18 19:00 07:00 Intake Total 1300 ml Balance 1300 ml Intake Oral 300 ml IV Total 1000 ml # Bowel Movements 1 Laboratory Tests Test 05/10/18 00:20 05/10/18 00:35 05/10/18 10:45 05/10/18 19:05 White Blood Count 6.1 K/UL (4.8-10.8) Red Blood Count 3.43 M/UL (4.70-6.10) L Hemoglobin 10.1 G/DL (14.2-18.0) L Hematocrit 31.4 % (42.0-52.0) L Mean Corpuscular Volume 92 FL (80-99) Mean Corpuscular Hemoglobin 29.6 PG (27.0-31.0) Mean Corpuscular Hemoglobin Concent 32.3 G/DL (32.0-36.0) Red Cell Distribution Width 13.7 % (11.6-14.8) Platelet Count 252 K/UL (150-450) Mean Platelet Volume 6.2 FL (6.5-10.1) L Neutrophils (%) (Auto) 82.6 % (45.0-75.0) H Lymphocytes (%) (Auto) 3.0 % (20.0-45.0) L Monocytes (%) (Auto) 10.6 % (1.0-10.0) H Eosinophils (%) (Auto) 3.1 % (0.0-3.0) H Basophils (%) (Auto) 0.7 % (0.0-2.0) Sodium Level 126 MMOL/L (136-145) L Potassium Level 4.8 MMOL/L (3.5-5.1) Chloride Level 86 MMOL/L (98-107) L Carbon Dioxide Level 19 MMOL/L (21-32) L Anion Gap 21 mmol/L (5-15) H Blood Urea Nitrogen 104 mg/dL (7-18) H Creatinine 11.9 MG/DL (0.55-1.30) H Estimat Glomerular Filtration Rate mL/min (>60) Glucose Level 125 MG/DL (74-106) H Calcium Level 9.1 MG/DL (8.5-10.1) Total Bilirubin 0.5 MG/DL (0.2-1.0) Aspartate Amino Transf (AST/SGOT) 38 U/L (15-37) H Alanine Aminotransferase (ALT/SGPT) 13 U/L (12-78) Alkaline Phosphatase 141 U/L (46-116) H Total Creatine Kinase 503 U/L (26-308) H Creatine Kinase MB 8.6 NG/ML (0.0-3.6) H Creatine Kinase MB Relative Index 1.7 Troponin I 0.000 ng/mL (0.000-0.056) 0.010 ng/mL (0.000-0.056) 0.004 ng/mL (0.000-0.056) Pro-B-Type Natriuretic Peptide 2961 pg/mL (0-125) H Total Protein 7.4 G/DL (6.4-8.2) Albumin 2.9 G/DL (3.4-5.0) L Globulin 4.5 g/dL Albumin/Globulin Ratio 0.6 (1.0-2.7) L Lipase 190 U/L (73-393) Urine Color Pale yellow Urine Appearance Clear Urine pH 8 (4.5-8.0) Urine Specific [place] 1.010 (1.005-1.035) Urine Protein 4+ (NEGATIVE) H Urine Glucose (UA) 2+ (NEGATIVE) H Urine Ketones Negative (NEGATIVE) Urine Blood 1+ (NEGATIVE) H Urine Nitrite Negative (NEGATIVE) Urine Bilirubin Negative (NEGATIVE) Urine Urobilinogen Normal MG/DL (0.0-1.0) Urine Leukocyte Esterase 2+ (NEGATIVE) H Urine RBC 2-4 /HPF (0 - 0) H Urine WBC 30-40 /HPF (0 - 0) H Urine Squamous Epithelial Cells None /LPF (NONE/OCC) Urine Bacteria Few /HPF (NONE) Height (Feet): 5 Height (Inches): 5.00 Weight (Pounds): 167 Medications Current Medications Medications (Trade) Dose Ordered Sig/Min Route PRN Reason Start Time Stop Time Status Last Admin Dose Admin Acetaminophen (Tylenol) 650 mg Q4H PRN ORAL Mild Pain/Temp > 100.5 05/10/18 07:30 06/09/18 07:29 05/10/18 16:14 Docusate Sodium (Colace) 100 mg TWICE A DAY ORAL 05/10/18 18:00 06/09/18 17:59 05/10/18 18:30 Metoprolol Tartrate (Lopressor) 25 mg Q12HR ORAL 05/10/18 09:00 06/09/18 08:59 05/10/18 10:32 Pantoprazole (Protonix) 40 mg DAILY ORAL 05/10/18 09:00 06/09/18 08:59 05/10/18 10:33 Sevelamer Carbonate (Renvela) 800 mg THREE TIMES A DAY ORAL 05/10/18 13:00 06/09/18 12:59 05/10/18 18:30 Assessment/Plan Problem List: (1) Sacral decubitus ulcer, stage III Assessment & Plan: Pt presents with partial thickness wound sacral cleft (L) 2cm x (W)0.6cm.edges flat and adherent to base of wound .Non-blanching erythema periwound.Non-blanchable erythema R heel fluctuant with delineated borders. L heel soft but easily blanches. all wounds present upon admission and will be cared for during hospital stay Tx.Plan: Cleanse sacral wound with Saline.Apply Moisture Barrier .Cover with Optifoam drsg Daily and prn. Cavilon Skin Barrier to R heel .Cover with Optifoam every 7 days and prn. Support surface mattress. Off-load heels with PIllow. Reposition at least every 2hours and prn. ICD Codes: L89.153 - Pressure ulcer of sacral region, stage 3 SNOMED: 300779972, [id number] Tomas Chandler May 10, 2018 21:50
[2018-05-10] MEDS ORDERED: LORazepam 0.5mg tab ORAL PRN (23:45)
--- NOTE | 2018-05-10 23:46 | Consultation ---
History of Present Illness General Chief Complaint: Chest Pain Present Illness HPI 78-year-old man with history of depression and anxiety hypertension, end-stage renal disease on hemodialysis as well as diabetes, the pt pw depressed mood, anxiety and insomnia Allergies: Coded Allergies: No Known Allergies (Unverified , 11/12/12) Medication History Scheduled Allopurinol* (Allopurinol*), 100 MG ORAL DAILY, (Reported) Esomeprazole Magnesium (Nexium), 40 MG ORAL DAILY, (Reported) Hydrocodone/Acetaminophen 5-325* ([place] 5-325*), 1 TAB ORAL NEEDED, (Reported ) Insulin Glargine,Hum.rec.anlog (Lantus), 0 SUBQ BEDTIME, (Reported) Insulin Regular, Human (Humulin R), 10 SUBQ AC+HS, (Reported) Labetalol Hcl* (Normodyne*), 200 MG ORAL TWICE A DAY, (Reported) Lorazepam* (Ativan*), 2 MG ORAL NEEDED, (Reported) Lorazepam* (Lorazepam*), 0.5 MG ORAL BID, (Reported) Multivitamin (Multi Vitamin Daily), 1 EACH PO DAILY, (Reported) [place]-3 Fatty Acids/Fish Oil ([place] 3 Fish Oil Softgel), 1 EACH PO DAILY, ( Reported) Rosuvastatin Calcium (Crestor), 40 MG ORAL DAILY, (Reported) Sennosides (Senna), 8.6 MG PO NEEDED, (Reported) Sertraline Hcl* (Zoloft*), 100 MG ORAL DAILY, (Reported) Trazodone Hcl* (Desyrel*), 100 MG ORAL BEDTIME, (Reported) Zolpidem Tartrate* (Ambien*), 5 MG ORAL BEDTIME, (Reported) Patient History Limited by: medical condition History Provided By: Patient, Medical Record Healthcare decision maker Resuscitation status Full Code Advanced Directive on File No Past Medical/Surgical History Past Medical/Surgical History: (1) Hyponatremia (2) ACS (acute coronary syndrome) (3) ESRD (end stage renal disease) on dialysis (4) Depression (5) Duodenal ulcer (6) Anemia (7) Chest pain (8) Coffee ground emesis (9) Sacral decubitus ulcer, stage III Review of Systems Psychiatric: Reports: prior hx, anxiety, depressed feelings Physical Exam General Appearance: alert, mild distress Neurologic: oriented x 3, responsive, depressed affect Last 24 Hour Vital Signs Date Time Temp Pulse Resp B/P (MAP) Pulse Ox O2 Delivery O2 Flow Rate FiO2 05/10/18 21:49 100 115/57 05/10/18 20:00 108 05/10/18 20:00 98.2 100 18 115/57 (76) 95 100 05/10/18 16:44 98.4 05/10/18 16:11 106 05/10/18 16:00 98.1 70 19 119/87 (98) 98 70 05/10/18 12:00 98.4 83 18 91/53 (66) 97 83 05/10/18 10:32 128 118/66 05/10/18 08:20 Room Air 05/10/18 08:03 118 05/10/18 08:00 97.4 128 18 118/66 (83) 99 128 05/10/18 04:19 Nasal Cannula 2.0 05/10/18 04:10 120 05/10/18 04:00 97.0 129 18 133/73 (93) 92 05/10/18 03:50 97.9 105 17 116/61 96 Nasal Cannula 2.0 05/10/18 03:30 97.9 105 17 116/61 96 Nasal Cannula 2.0 05/10/18 03:00 97.9 105 17 80/40 98 Nasal Cannula 2.0 05/10/18 02:12 113 14 Non-Rebreather 05/10/18 02:00 97.9 105 14 83/42 97 Nasal Cannula 2.0 05/10/18 00:54 97.9 129 14 115/69 100 Non-Rebreather 05/10/18 00:02 97.9 118 20 101/69 100 Non-Rebreather Intake and Output 05/09/18 05/10/18 19:00 07:00 Intake Total 1300 ml Balance 1300 ml Intake Oral 300 ml IV Total 1000 ml # Bowel Movements 1 Laboratory Tests Test 05/10/18 00:20 05/10/18 00:35 05/10/18 10:45 05/10/18 19:05 White Blood Count 6.1 K/UL (4.8-10.8) Red Blood Count 3.43 M/UL (4.70-6.10) L Hemoglobin 10.1 G/DL (14.2-18.0) L Hematocrit 31.4 % (42.0-52.0) L Mean Corpuscular Volume 92 FL (80-99) Mean Corpuscular Hemoglobin 29.6 PG (27.0-31.0) Mean Corpuscular Hemoglobin Concent 32.3 G/DL (32.0-36.0) Red Cell Distribution Width 13.7 % (11.6-14.8) Platelet Count 252 K/UL (150-450) Mean Platelet Volume 6.2 FL (6.5-10.1) L Neutrophils (%) (Auto) 82.6 % (45.0-75.0) H Lymphocytes (%) (Auto) 3.0 % (20.0-45.0) L Monocytes (%) (Auto) 10.6 % (1.0-10.0) H Eosinophils (%) (Auto) 3.1 % (0.0-3.0) H Basophils (%) (Auto) 0.7 % (0.0-2.0) Sodium Level 126 MMOL/L (136-145) L Potassium Level 4.8 MMOL/L (3.5-5.1) Chloride Level 86 MMOL/L (98-107) L Carbon Dioxide Level 19 MMOL/L (21-32) L Anion Gap 21 mmol/L (5-15) H Blood Urea Nitrogen 104 mg/dL (7-18) H Creatinine 11.9 MG/DL (0.55-1.30) H Estimat Glomerular Filtration Rate mL/min (>60) Glucose Level 125 MG/DL (74-106) H Calcium Level 9.1 MG/DL (8.5-10.1) Total Bilirubin 0.5 MG/DL (0.2-1.0) Aspartate Amino Transf (AST/SGOT) 38 U/L (15-37) H Alanine Aminotransferase (ALT/SGPT) 13 U/L (12-78) Alkaline Phosphatase 141 U/L (46-116) H Total Creatine Kinase 503 U/L (26-308) H Creatine Kinase MB 8.6 NG/ML (0.0-3.6) H Creatine Kinase MB Relative Index 1.7 Troponin I 0.000 ng/mL (0.000-0.056) 0.010 ng/mL (0.000-0.056) 0.004 ng/mL (0.000-0.056) Pro-B-Type Natriuretic Peptide 2961 pg/mL (0-125) H Total Protein 7.4 G/DL (6.4-8.2) Albumin 2.9 G/DL (3.4-5.0) L Globulin 4.5 g/dL Albumin/Globulin Ratio 0.6 (1.0-2.7) L Lipase 190 U/L (73-393) Urine Color Pale yellow Urine Appearance Clear Urine pH 8 (4.5-8.0) Urine Specific [place] 1.010 (1.005-1.035) Urine Protein 4+ (NEGATIVE) H Urine Glucose (UA) 2+ (NEGATIVE) H Urine Ketones Negative (NEGATIVE) Urine Blood 1+ (NEGATIVE) H Urine Nitrite Negative (NEGATIVE) Urine Bilirubin Negative (NEGATIVE) Urine Urobilinogen Normal MG/DL (0.0-1.0) Urine Leukocyte Esterase 2+ (NEGATIVE) H Urine RBC 2-4 /HPF (0 - 0) H Urine WBC 30-40 /HPF (0 - 0) H Urine Squamous Epithelial Cells None /LPF (NONE/OCC) Urine Bacteria Few /HPF (NONE) Height (Feet): 5 Height (Inches): 5.00 Weight (Pounds): 167 Medications Current Medications Medications (Trade) Dose Ordered Sig/Min Route PRN Reason Start Time Stop Time Status Last Admin Dose Admin Acetaminophen (Tylenol) 650 mg Q4H PRN ORAL Mild Pain/Temp > 100.5 05/10/18 07:30 06/09/18 07:29 05/10/18 16:14 Docusate Sodium (Colace) 100 mg TWICE A DAY ORAL 05/10/18 18:00 06/09/18 17:59 05/10/18 18:30 Metoprolol Tartrate (Lopressor) 25 mg Q12HR ORAL 05/10/18 09:00 06/09/18 08:59 05/10/18 21:49 Pantoprazole (Protonix) 40 mg DAILY ORAL 05/10/18 09:00 06/09/18 08:59 05/10/18 10:33 Sevelamer Carbonate (Renvela) 800 mg THREE TIMES A DAY ORAL 05/10/18 13:00 06/09/18 12:59 05/10/18 18:30 Assessment/Plan Problem List: (1) Major depression ICD Codes: F32.9 - Major depressive disorder, single episode, unspecified SNOMED: 109714450 (2) anxiety disorder Status: stable Assessment/Plan zoloft 100mg q daily trazodone 100mg qhs ativan prn provided ro/st[ Chely Kulkarni MD May 10, 2018 23:46
[2018-05-11] VITALS: BP 119/63
--- NOTE | 2018-05-11 | General Progress Note ---
Assessment/Plan Problem List: (1) Major depression ICD Codes: F32.9 - Major depressive disorder, single episode, unspecified SNOMED: 487127451 (2) anxiety disorder Assessment/Plan zoloft 100mg q daily trazodone 100mg qhs ativan prn provided ro/st[ Subjective Allergies: Coded Allergies: No Known Allergies (Unverified , 11/12/12) Objective Last 24 Hour Vital Signs Date Time Temp Pulse Resp B/P (MAP) Pulse Ox O2 Delivery O2 Flow Rate FiO2 05/10/18 21:49 100 115/57 05/10/18 20:00 108 05/10/18 20:00 98.2 100 18 115/57 (76) 95 100 05/10/18 16:44 98.4 05/10/18 16:11 106 05/10/18 16:00 98.1 70 19 119/87 (98) 98 70 05/10/18 12:00 98.4 83 18 91/53 (66) 97 83 05/10/18 10:32 128 118/66 05/10/18 08:20 Room Air 05/10/18 08:03 118 05/10/18 08:00 97.4 128 18 118/66 (83) 99 128 05/10/18 04:19 Nasal Cannula 2.0 05/10/18 04:10 120 05/10/18 04:00 97.0 129 18 133/73 (93) 92 05/10/18 03:50 97.9 105 17 116/61 96 Nasal Cannula 2.0 05/10/18 03:30 97.9 105 17 116/61 96 Nasal Cannula 2.0 05/10/18 03:00 97.9 105 17 80/40 98 Nasal Cannula 2.0 05/10/18 02:12 113 14 Non-Rebreather 05/10/18 02:00 97.9 105 14 83/42 97 Nasal Cannula 2.0 05/10/18 00:54 97.9 129 14 115/69 100 Non-Rebreather 05/10/18 00:02 97.9 118 20 101/69 100 Non-Rebreather Intake and Output 05/10/18 05/11/18 19:00 07:00 Intake Total 280 ml Output Total 2000 ml Balance -1720 ml Intake Oral 280 ml Output Hemodialysis UF 2000 ml # Voids 1 Laboratory Tests 05/10/18 00:20: White Blood Count 6.1, Red Blood Count 3.43L, Hemoglobin 10.1L, Hematocrit 31.4L , Mean Corpuscular Volume 92, Mean Corpuscular Hemoglobin 29.6, Mean Corpuscular Hemoglobin Concent 32.3, Red Cell Distribution Width 13.7, Platelet Count 252, Mean Platelet Volume 6.2L, Neutrophils (%) (Auto) 82.6H, Lymphocytes (%) (Auto) 3.0L, Monocytes (%) (Auto) 10.6H, Eosinophils (%) (Auto) 3.1H, Basophils (%) (Auto) 0.7, Sodium Level 126L, Potassium Level 4.8, Chloride Level 86L, Carbon Dioxide Level 19L, Anion Gap 21H, Blood Urea Nitrogen 104H, Creatinine 11.9H, Estimat Glomerular Filtration Rate , Glucose Level 125H, Calcium Level 9.1, Total Bilirubin 0.5, Aspartate Amino Transf (AST/SGOT) 38H, Alanine Aminotransferase (ALT/SGPT) 13, Alkaline Phosphatase 141H, Total Creatine Kinase 503H, Creatine Kinase MB 8.6H, Creatine Kinase MB Relative Index 1.7, Troponin I 0.000, Pro-B-Type Natriuretic Peptide 2961H, Total Protein 7.4, Albumin 2.9L, Globulin 4.5, Albumin/Globulin Ratio 0.6L, Lipase 190 05/10/18 00:35: Urine Color Pale yellow, Urine Appearance Clear, Urine pH 8, Urine Specific [place] 1.010, Urine Protein 4+H, Urine Glucose (UA) 2+H, Urine Ketones Negative , Urine Blood 1+H, Urine Nitrite Negative, Urine Bilirubin Negative, Urine Urobilinogen Normal, Urine Leukocyte Esterase 2+H, Urine RBC 2-4H, Urine WBC 30- 40H, Urine Squamous Epithelial Cells None, Urine Bacteria Few 05/10/18 10:45: Troponin I 0.010 05/10/18 19:05: Troponin I 0.004 Height (Feet): 5 Height (Inches): 5.00 Weight (Pounds): 167 Chely Kulkarni MD May 11, 2018 00:00
[2018-05-11 03:39] LABS: HEMATOCRIT 34.1 % (42.0-52.0); MEAN CORPUSCULAR VOLUME 91 FL (80-99); PLATELET COUNT 334 K/UL (150-450); RED BLOOD COUNT 3.73 M/UL (4.70-6.10); RED CELL DISTRIBUTION WIDTH 13.8 % (11.6-14.8); WHITE BLOOD COUNT 8.7 K/UL (4.8-10.8)
[2018-05-11 03:59] LABS: ALANINE AMINOTRANSFERASE 17 U/L (12-78); ALBUMIN 2.8 G/DL (3.4-5.0); ALBUMIN/GLOBULIN RATIO 0.5 (1.0-2.7); ALKALINE PHOSPHATASE 174 U/L (46-116); ANION GAP 21 mmol/L (5-15); ASPARTATE AMINO TRANSFERASE 46 U/L (15-37); BILIRUBIN,TOTAL 0.7 MG/DL (0.2-1.0); BLOOD UREA NITROGEN 98 mg/dL (7-18); CALCIUM 9.7 MG/DL (8.5-10.1); CARBON DIOXIDE 23 MMOL/L (21-32); CHLORIDE 85 MMOL/L (98-107); CREATININE 10.3 MG/DL (0.55-1.30); POTASSIUM 4.5 MMOL/L (3.5-5.1); SODIUM 129 MMOL/L (136-145)
[2018-05-11 04:00] VITALS: BP 136/68
[2018-05-11 04:01] LABS: PHOSPHORUS 7.3 MG/DL (2.5-4.9)
--- NOTE | 2018-05-11 07:30 | NUR ---
HAND-OFF: Report given to MINGO Santillan. Pt. is in stable condition. Addendum: 05/11/18 at 0758 by Katja Gallardo Mai, RN Endorsed BMP results and microbiology results to laina IRVIN
--- NOTE | 2018-05-11 07:31 | NUR ---
NURSE NOTES: Received report from MINGO Arzate. Patient is resting in bed, sleeping. manager ct in placed, IV site intact, asymptomatic, and patent. Bed is in the lowest position with two side rails up and bed alarm on. Call light and side table within reach. No acute distress noted at this time. Will continue to monitor and follow plan of care.
[2018-05-11 08:00] VITALS: BP 131/81
[2018-05-11] MEDS: Metoprolol 25mg tab ORAL SCH (08:47)
[2018-05-11] MEDS: Sertraline 100mg tab ORAL SCH (08:47)
[2018-05-11] MEDS: Docusate 100mg cap ORAL SCH ×3 (08:47→17:34)
[2018-05-11] MEDS ORDERED: Metoprolol 25mg tab ORAL SCH (10:30)
[2018-05-11 12:00] VITALS: BP 122/87
[2018-05-11] MEDS ORDERED: Cefepime HCl 1 GM in D5W 55 ML IVPB SCH (12:00)
--- NOTE | 2018-05-11 12:02 | Cardiology Progress Note ---
Assessment/Plan Status: stable Assessment/Plan ASSESSMENT AND PLAN: 1. Lower extremity edema with an elevated BNP in a patient with renal failure on hemodialysis. The patient will be getting hemodialysis per Dr. Arroyo. 2. Chest pain. Currently denies any chest pain, completely rule out ACS EKG showed old inferior and anterior wall [place], but no ischemia. We will get an echocardiogram for further evaluation. ---ECHO with normal LV function 3. End-stage renal disease, on hemodialysis per Dr. Arroyo. 4. Diabetes. 5. History of kidney stones. 6. History of psychiatric problems, dementia. Subjective Cardiovascular: Reports: no symptoms Respiratory: Reports: no symptoms Gastrointestinal/Abdominal: Reports: no symptoms Genitourinary: Reports: no symptoms Subjective COVERAGE FOR LYNDONIE Patient tachycardic this AM, given extra dose of metoprolol, Echo normal LV function Objective Last 24 Hour Vital Signs Date Time Temp Pulse Resp B/P (MAP) Pulse Ox O2 Delivery O2 Flow Rate FiO2 05/11/18 10:54 116 131/81 05/11/18 09:00 Room Air 05/11/18 08:47 116 131/81 05/11/18 08:00 97.1 116 21 131/81 (98) 98 05/11/18 08:00 117 05/11/18 04:00 109 05/11/18 04:00 97.5 91 19 136/68 (90) 95 91 05/11/18 00:00 97.0 97 18 119/63 (81) 94 97 05/11/18 00:00 97 05/10/18 21:49 100 115/57 05/10/18 21:00 Room Air 05/10/18 20:00 108 05/10/18 20:00 98.2 100 18 115/57 (76) 95 100 05/10/18 16:44 98.4 05/10/18 16:11 106 05/10/18 16:00 98.1 70 19 119/87 (98) 98 70 General Appearance: no apparent distress, alert, mild distress EENT: PERRL/EOMI, normal ENT inspection, TMs normal, pharynx normal Neck: non-tender, supple, no JVD Rhythm: ST, Afib Cardiovascular: normal peripheral pulses, normal rate, regular rhythm, regularly irregular Respiratory/Chest: chest wall non-tender, lungs clear, normal breath sounds, no respiratory distress Abdomen: normal bowel sounds, non tender Extremities: normal range of motion, non-tender, normal inspection Neurologic: basket person II-XII grossly normal, no motor/sensory deficits, abnormal gait , alert, oriented x 3 Intake and Output 05/10/18 05/11/18 19:00 07:00 Intake Total 280 ml Output Total 2000 ml Balance -1720 ml Intake Oral 280 ml Output Hemodialysis UF 2000 ml # Voids 4 Laboratory Tests Test 05/10/18 19:05 05/11/18 03:25 Troponin I 0.004 ng/mL (0.000-0.056) 0.000 ng/mL (0.000-0.056) White Blood Count 8.7 K/UL (4.8-10.8) Red Blood Count 3.73 M/UL (4.70-6.10) L Hemoglobin 11.0 G/DL (14.2-18.0) L Hematocrit 34.1 % (42.0-52.0) L Mean Corpuscular Volume 91 FL (80-99) Mean Corpuscular Hemoglobin 29.5 PG (27.0-31.0) Mean Corpuscular Hemoglobin Concent 32.3 G/DL (32.0-36.0) Red Cell Distribution Width 13.8 % (11.6-14.8) Platelet Count 334 K/UL (150-450) Mean Platelet Volume 6.4 FL (6.5-10.1) L Neutrophils (%) (Auto) % (45.0-75.0) Lymphocytes (%) (Auto) % (20.0-45.0) Monocytes (%) (Auto) % (1.0-10.0) Eosinophils (%) (Auto) % (0.0-3.0) Basophils (%) (Auto) % (0.0-2.0) Differential Total Cells Counted 100 Neutrophils % (Manual) 70 % (45-75) Lymphocytes % (Manual) 1 % (20-45) L Monocytes % (Manual) 5 % (1-10) Eosinophils % (Manual) 0 % (0-3) Basophils % (Manual) 0 % (0-2) Band Neutrophils 24 % (0-8) H Platelet Estimate Adequate Platelet Morphology Normal Red Blood Cell Morphology Normal Sodium Level 129 MMOL/L (136-145) L Potassium Level 4.5 MMOL/L (3.5-5.1) Chloride Level 85 MMOL/L (98-107) L Carbon Dioxide Level 23 MMOL/L (21-32) Anion Gap 21 mmol/L (5-15) H Blood Urea Nitrogen 98 mg/dL (7-18) H Creatinine 10.3 MG/DL (0.55-1.30) H Estimat Glomerular Filtration Rate mL/min (>60) Glucose Level 177 MG/DL (74-106) H Hemoglobin A1c 5.5 % (4.3-6.0) Uric Acid 7.7 MG/DL (2.6-7.2) H Calcium Level 9.7 MG/DL (8.5-10.1) Phosphorus Level 7.3 MG/DL (2.5-4.9) H Magnesium Level 1.7 MG/DL (1.8-2.4) L Total Bilirubin 0.7 MG/DL (0.2-1.0) Gamma Glutamyl Transpeptidase 76 U/L (5-85) Aspartate Amino Transf (AST/SGOT) 46 U/L (15-37) H Alanine Aminotransferase (ALT/SGPT) 17 U/L (12-78) Alkaline Phosphatase 174 U/L (46-116) H C-Reactive Protein, Quantitative > 70.0 mg/dL (0.00-0.90) H Pro-B-Type Natriuretic Peptide 97629 pg/mL (0-125) H Total Protein 8.0 G/DL (6.4-8.2) Albumin 2.8 G/DL (3.4-5.0) L Globulin 5.2 g/dL Albumin/Globulin Ratio 0.5 (1.0-2.7) L Thyroid Stimulating Hormone (TSH) 0.207 uiU/mL (0.358-3.740) Microbiology Date/Time Source Procedure Growth Status 05/10/18 01:00 Nasal Nares MRSA Culture - Final NO METHICILLIN RESISTANT STAPH AUREUS... Complete 05/10/18 00:35 Urine,Clean Catch Urine Culture - Final Gram Positive Cocci Complete 05/10/18 00:20 Arm Right Blood Culture - Preliminary Gram Negative Hardy Resulted 05/10/18 00:00 Arm Left Blood Culture - Preliminary Gram Negative Hardy Resulted Denis Melo MD May 11, 2018 12:02
--- NOTE | 2018-05-11 12:03 | Cardiology Report ---
APPROVED REPORT EXAM: Two-dimensional and M-mode echocardiogram with Doppler and color Doppler. INDICATION Chest Pain M-Mode DIMENSIONS IVSd1.1 (0.7-1.1cm)Left Atrium (MM)5.3 (1.6-4.0cm) LVDd4.0 (3.5-5.6cm)Aortic Root2.0 (2.0-3.7cm) PWd1.0 (0.7-1.1cm)Aortic Cusp Exc.3.5 (1.5-2.0cm) LVDs2.6 (2.5-4.0cm) PWs1.4 cm Technically difficult study due to patients resistance. Study quality precludes accurate assessment of regional wall motion. Normal left ventricular chamber size, systolic function and wall motion. Left ventricular ejection fraction estimated to be 60 %. Borderline left ventricular hypertrophy. No evidence of pericardial effusion. Mild bi-atrial enlargement. Right ventricular chamber sizes is within normal limits. Mild focal aortic valve sclerosis with adequate cusp excursion. Mildly thickened mitral valve leaflets with normal excursion. Mild mitral annulus and aortic root calcification. Pulmonic valve not well visualized. Normal tricuspid valve structure. IVC is normal in size with physiological collapse. A color flow and spectral Doppler study was performed and revealed: No aortic insufficiency. No mitral regurgitation. Mitral diastolic velocities suggest mild left ventricular diastolic dysfunction (Grade I). Trace tricuspid regurgitation. Tricuspid systolic velocities suggests peak right ventricular systolic pressure of 39 mmHg, consistent with mild pulmonary hypertension. No pulmonic regurgitation present.
[2018-05-11] MEDS ORDERED: Metoclopramide 10mg/2ml Inj IVP PRN (12:30)
--- NOTE | 2018-05-11 12:31 | Nephrology Progress Note ---
Assessment/Plan Problem List: (1) ESRD (end stage renal disease) on dialysis (2) Hyponatremia (3) Major depression (4) Nausea & vomiting Assessment Presents with CHF and Low Na ESRD ACS DM HTN h/o GI bleed Depression Plan HD done 05/10 next 05/11 Per cardio- HD M W Fr Adjust meds for BP and BS add reglan and IV protonix per orders Subjective ROS Limited/Unobtainable: No Constitutional: Reports: malaise, other - vomited once Objective Objective Last 24 Hour Vital Signs Date Time Temp Pulse Resp B/P (MAP) Pulse Ox O2 Delivery O2 Flow Rate FiO2 05/11/18 10:54 116 131/81 05/11/18 09:00 Room Air 05/11/18 08:47 116 131/81 05/11/18 08:00 97.1 116 21 131/81 (98) 98 05/11/18 08:00 117 05/11/18 04:00 109 05/11/18 04:00 97.5 91 19 136/68 (90) 95 91 05/11/18 00:00 97.0 97 18 119/63 (81) 94 97 05/11/18 00:00 97 05/10/18 21:49 100 115/57 05/10/18 21:00 Room Air 05/10/18 20:00 108 05/10/18 20:00 98.2 100 18 115/57 (76) 95 100 05/10/18 16:44 98.4 05/10/18 16:11 106 05/10/18 16:00 98.1 70 19 119/87 (98) 98 70 Intake and Output 05/10/18 05/11/18 19:00 07:00 Intake Total 280 ml Output Total 2000 ml Balance -1720 ml Intake Oral 280 ml Output Hemodialysis UF 2000 ml # Voids 4 Laboratory Tests 05/10/18 19:05: Troponin I 0.004 05/11/18 03:25: Troponin I 0.000, White Blood Count 8.7, Red Blood Count 3.73L, Hemoglobin 11.0L , Hematocrit 34.1L, Mean Corpuscular Volume 91, Mean Corpuscular Hemoglobin 29.5 , Mean Corpuscular Hemoglobin Concent 32.3, Red Cell Distribution Width 13.8, Platelet Count 334, Mean Platelet Volume 6.4L, Neutrophils (%) (Auto) , Lymphocytes (%) (Auto) , Monocytes (%) (Auto) , Eosinophils (%) (Auto) , Basophils (%) (Auto) , Differential Total Cells Counted 100, Neutrophils % ( Manual) 70, Lymphocytes % (Manual) 1L, Monocytes % (Manual) 5, Eosinophils % ( Manual) 0, Basophils % (Manual) 0, Band Neutrophils 24H, Platelet Estimate Adequate, Platelet Morphology Normal, Red Blood Cell Morphology Normal, Sodium Level 129L, Potassium Level 4.5, Chloride Level 85L, Carbon Dioxide Level 23, Anion Gap 21H, Blood Urea Nitrogen 98H, Creatinine 10.3H, Estimat Glomerular Filtration Rate , Glucose Level 177H, Hemoglobin A1c 5.5, Uric Acid 7.7H, Calcium Level 9.7, Phosphorus Level 7.3H, Magnesium Level 1.7L, Total Bilirubin 0.7, Gamma Glutamyl Transpeptidase 76, Aspartate Amino Transf (AST/SGOT) 46H, Alanine Aminotransferase (ALT/SGPT) 17, Alkaline Phosphatase 174H, C-Reactive Protein, Quantitative > 70.0H, Pro-B-Type Natriuretic Peptide 12402O, Total Protein 8.0, Albumin 2.8L, Globulin 5.2, Albumin/Globulin Ratio 0.5L, Thyroid Stimulating Hormone (TSH) 0.207L Height (Feet): 5 Height (Inches): 5.00 Weight (Pounds): 155 General Appearance: no apparent distress Cardiovascular: tachycardia Respiratory/Chest: decreased breath sounds Abdomen: distended Neurologic: other - tremors Objective no change Maurilio Arroyo MD May 11, 2018 12:31
[2018-05-11] MEDS ORDERED: Vancomycin 1.5 GM/D5W 250ML IVPB ONE (13:00)
--- NOTE | 2018-05-11 13:57 | Consultation ---
Consult Note Consult Note HEMATOLOGY-ONCOLOGY CONSULTATION REFERRING PHYSICIAN: Samantha Head REASON FOR CONSULT: Anemia DATE OF CONSULT: 05/11/2018 HISTORY OF PRESENT ILLNESS: The patient is admitted for chest pain, acute, rule out acute coronary syndrome. The patient is a poor historian. Also speaks Yakut only. There was no episodes of nausea, vomiting, or diarrhea. No episodes of chills or constipation. Hematology service consulted for the evaluation of anemia. Labs and imaging have been reviewed. PAST MEDICAL HISTORY: Organic brain syndrome, diabetes, hypertension, end- stage renal disease, on hemodialysis, BPH, kidney stones, gout, GERD, NIDDM, anxiety, constipation, depression, and insomnia. PAST SURGICAL HISTORY: Related to dialysis. FAMILY HISTORY: Noncontributory. SOCIAL HISTORY: Denies alcohol or illicit drugs. Denies smoking. REVIEW OF SYSTEMS: Pt is a poor historian HEENT: Denies headaches. RESPIRATORY: Denies shortness of breath. Denies cough. CARDIOVASCULAR: Does have chest pain. Denies radiation. GASTROINTESTINAL: Denies nausea, vomiting, or diarrhea. Denies pain. Denies chills. PHYSICAL EXAMINATION: VITAL SIGNS: Have been reviewed HEENT: PERRLA. NECK: Supple. No lymphadenopathy. CHEST: Clear to auscultation. CARDIOVASCULAR: Tachycardic. GASTROINTESTINAL: Distended. Positive bowel sounds. Nontender. No organomegaly. EXTREMITY: A 1+ edema. Reflexes are equal on both sides. Moves all four extremities x1. MEDICATIONS: Nexium, insulin, labetalol, multivitamin, Crestor, Senokot, Zoloft, and trazodone. LABORATORY AND DIAGNOSTIC DATA: WBC of 6.1, hemoglobin of 10.1, and platelets of 252,000. Sodium 126, potassium 4.8, BUN of 104, creatinine of 11.9, and glucose of 125. IMAGING: CXR --> No acute process ASSESSMENT AND RECOMMENDATIONS # Anemia of chronic disease due to underlying chronic medical issues, multifactorial. --> Current Hgb >11, no w/u required at this time. --> Monitor for stability # Chest pain, rule out acute coronary syndrome. --> Cardiology is following, appreciate recs. --> Currently denies any chest pain, completely rule out ACS --> EKG showed old inferior and anterior wall [place], but no ischemia. --> ECHO with normal LV function # End-stage renal disease, on hemodialysis and also hyponatremia. --> Nephro is following, appreciate recs. --> On intermittent HD # Lower extremity edema with an elevated BNP in a patient with renal failure on hemodialysis. --> The patient will be getting hemodialysis per Dr. Arroyo. GREATLY APPRECIATE CONSULTATION. Reinaldo Leon MD May 11, 2018 13:57
[2018-05-11 16:00] VITALS: BP 124/83
--- NOTE | 2018-05-11 17:19 | NUR ---
HAND-OFF: Report given to MINGO Galvez.
--- NOTE | 2018-05-11 19:30 | NUR ---
NURSE NOTES: Received pt. and report from MINGO Harden. Observed pt. resting in bed. cardiac monitor technician is in place, IV site intact, asymptomatic and patent. Bed is in the lowest position and locked. Call light within reach. No acute distress noted at this time. Will continue plan of care.
--- NOTE | 2018-05-11 19:35 | NUR ---
HAND-OFF: Report given to Carito RN. Pt. remain stable.
[2018-05-11 20:00] VITALS: BP 146/76
--- NOTE | 2018-05-11 20:15 | Consultation ---
DATE OF CONSULTATION: 05/11/2018 INFECTIOUS DISEASE CONSULTATION CONSULTING PHYSICIAN: Martha Dupree M.D. REFERRING PHYSICIAN: Samantha Head M.D. REASON FOR CONSULTATION: Sepsis and urinary tract infection. HISTORY OF PRESENT ILLNESS: This is a 78-year-old gentleman with history of hypertension, diabetes, kidney stones, and renal failure on dialysis, who comes in with fevers and Infectious Disease consultation has been obtained for antibiotics. PAST MEDICAL HISTORY: 1. History of hypertension. 2. Diabetes. 3. Kidney stones. 4. Renal failure, on dialysis. SOCIAL HISTORY: He does not smoke, drink, or use drugs. FAMILY HISTORY: Unknown. REVIEW OF SYSTEMS: Unable to obtain currently. MEDICATIONS: As an inpatient, he is on trazodone, metoprolol, sertraline, Zofran, Ativan, docusate, Renvela, Protonix, and Tylenol. ALLERGIES: No known drug allergies. PHYSICAL EXAMINATION: VITAL SIGNS: Temperature of 97.1, T-max of 98.4, pulse 116, respiratory rate 21, and blood pressure 131/81. O2 saturation 98%. HEENT: Pupils are equally reactive to light and accommodation. Mouth appears clean without thrush. NECK: Supple. No adenopathy. No JVD. CARDIOVASCULAR: Regular rate and rhythm. No murmurs. LUNGS: Clear to auscultation bilaterally. No crackles. No wheezes. ABDOMEN: Soft and nontender. No organomegaly. EXTREMITIES: No cyanosis, no clubbing, no edema. SKIN: Sacral decubitus ulcer noted. LABORATORY AND DIAGNOSTIC DATA: White count 8.7, hemoglobin 11, hematocrit 34.1, MCV 91, and platelet count 334,000 with neutrophils of 70%. Sodium 129, potassium 4.5, chloride 85, bicarb 23, BUN 98, and creatinine 10.3. Glucose 177. Calcium 9.7. Uric acid 7.7. AST 46, ALT 17, and alkaline phosphatase 174. Troponin 0. Beta-natriuretic peptide 16,149. Total protein 8, albumin 2.8. Lipase 1.90. UA is showing 30 to 40 white cells. Urine culture showing gram-positive cocci. Blood culture is showing gram-negative rods. Nasal swab was negative for MRSA. Chest x-ray is showing no acute process. ASSESSMENT: This is a 78-year-old gentleman with history of diabetes and hypertension, who comes in and is found to have: 1. Gram-negative sepsis. 2. He also has a urinary tract infection with gram-positive cocci. 3. Diabetes. 4. Hypertension. 5. Renal failure, on dialysis. PLAN: 1. We will start the patient on IV vancomycin and cefepime. 2. We will follow up cultures and adjust antibiotics accordingly. I would like to thank Dr. Head for this consultation. Martha Dupree M.D. DR: BRITNI JOB#: [id number] CC:
[2018-05-11] MEDS ORDERED: TraZODone 100mg tab ORAL SCH (21:00)
[2018-05-11] MEDS: Metoprolol Tartrate 50mg tab ORAL SCH (21:21)
[2018-05-11] MEDS: Pantoprazole Inj IVP SCH (21:21)
--- NOTE | 2018-05-11 22:04 | General Progress Note ---
Assessment/Plan Problem List: (1) Major depression ICD Codes: F32.9 - Major depressive disorder, single episode, unspecified SNOMED: 505089415 (2) anxiety disorder Status: stable Assessment/Plan zoloft 100mg q daily trazodone 100mg qhs ativan prn provided ro/st[ Subjective Neurologic/Psychiatric: Reports: anxiety, depressed, emotional problems Allergies: Coded Allergies: No Known Allergies (Unverified , 11/12/12) Objective Last 24 Hour Vital Signs Date Time Temp Pulse Resp B/P (MAP) Pulse Ox O2 Delivery O2 Flow Rate FiO2 05/11/18 21:21 89 146/76 05/11/18 16:00 98.0 70 21 124/83 (97) 99 05/11/18 16:00 76 05/11/18 12:00 97.8 72 20 122/87 (99) 98 05/11/18 12:00 94 05/11/18 10:54 116 131/81 05/11/18 09:00 Room Air 05/11/18 08:47 116 131/81 05/11/18 08:00 97.1 116 21 131/81 (98) 98 05/11/18 08:00 117 05/11/18 04:00 109 05/11/18 04:00 97.5 91 19 136/68 (90) 95 91 05/11/18 00:00 97.0 97 18 119/63 (81) 94 97 05/11/18 00:00 97 Intake and Output 05/10/18 05/11/18 19:00 07:00 Intake Total 280 ml Output Total 2000 ml Balance -1720 ml Intake Oral 280 ml Output Hemodialysis UF 2000 ml # Voids 4 Laboratory Tests 05/11/18 03:25: White Blood Count 8.7, Red Blood Count 3.73L, Hemoglobin 11.0L, Hematocrit 34.1L , Mean Corpuscular Volume 91, Mean Corpuscular Hemoglobin 29.5, Mean Corpuscular Hemoglobin Concent 32.3, Red Cell Distribution Width 13.8, Platelet Count 334, Mean Platelet Volume 6.4L, Neutrophils (%) (Auto) , Lymphocytes (%) ( Auto) , Monocytes (%) (Auto) , Eosinophils (%) (Auto) , Basophils (%) (Auto) , Differential Total Cells Counted 100, Neutrophils % (Manual) 70, Lymphocytes % ( Manual) 1L, Monocytes % (Manual) 5, Eosinophils % (Manual) 0, Basophils % ( Manual) 0, Band Neutrophils 24H, Platelet Estimate Adequate, Platelet Morphology Normal, Red Blood Cell Morphology Normal, Sodium Level 129L, Potassium Level 4.5, Chloride Level 85L, Carbon Dioxide Level 23, Anion Gap 21H , Blood Urea Nitrogen 98H, Creatinine 10.3H, Estimat Glomerular Filtration Rate , Glucose Level 177H, Hemoglobin A1c 5.5, Uric Acid 7.7H, Calcium Level 9.7, Phosphorus Level 7.3H, Magnesium Level 1.7L, Total Bilirubin 0.7, Gamma Glutamyl Transpeptidase 76, Aspartate Amino Transf (AST/SGOT) 46H, Alanine Aminotransferase (ALT/SGPT) 17, Alkaline Phosphatase 174H, Troponin I 0.000, C- Reactive Protein, Quantitative > 70.0H, Pro-B-Type Natriuretic Peptide 33567E, Total Protein 8.0, Albumin 2.8L, Globulin 5.2, Albumin/Globulin Ratio 0.5L, Thyroid Stimulating Hormone (TSH) 0.207L Height (Feet): 5 Height (Inches): 5.00 Weight (Pounds): 155 General Appearance: no apparent distress, alert Chely Kulkarni MD May 11, 2018 22:04
[2018-05-12] VITALS (43 sets, daily range): BP systolic 53–133; BP diastolic 20–79
[2018-05-12 05:52] LABS: HEMATOCRIT 33.1 % (42.0-52.0); HEMOGLOBIN 10.7 G/DL (14.2-18.0); MEAN CORPUSCULAR VOLUME 91 FL (80-99); PLATELET COUNT 296 K/UL (150-450); RED BLOOD COUNT 3.66 M/UL (4.70-6.10); RED CELL DISTRIBUTION WIDTH 13.9 % (11.6-14.8); WHITE BLOOD COUNT 8.8 K/UL (4.8-10.8)
[2018-05-12 06:24] LABS: ALANINE AMINOTRANSFERASE 36 U/L (12-78); ALBUMIN 2.3 G/DL (3.4-5.0); ALBUMIN/GLOBULIN RATIO 0.5 (1.0-2.7); ALKALINE PHOSPHATASE 166 U/L (46-116); ANION GAP 19 mmol/L (5-15); ASPARTATE AMINO TRANSFERASE 69 U/L (15-37); BILIRUBIN,TOTAL 0.7 MG/DL (0.2-1.0); BLOOD UREA NITROGEN 142 mg/dL (7-18); CALCIUM 9.2 MG/DL (8.5-10.1); CARBON DIOXIDE 21 MMOL/L (21-32); CHLORIDE 89 MMOL/L (98-107); CREATININE 11.2 MG/DL (0.55-1.30); POTASSIUM 5.9 MMOL/L (3.5-5.1); SODIUM 129 MMOL/L (136-145)
--- NOTE | 2018-05-12 07:31 | General Progress Note ---
Assessment/Plan Status: stable Assessment/Plan COVERING FOR DR. IRVIN ASSESSMENT AND RECOMMENDATIONS # Lower extremity edema with an elevated BNP in a patient with renal failure on hemodialysis. --> The patient will be getting hemodialysis per Dr. Arroyo. # Chest pain, rule out acute coronary syndrome. --> Cardiology is following, appreciate recs, echo was reviewed --> Currently denies any chest pain, completely rule out ACS --> EKG showed old inferior and anterior wall [place], but no ischemia. --> ECHO with normal LV function # End-stage renal disease, on hemodialysis and also hyponatremia. --> Nephro is following, appreciate recs. --> On intermittent HD # Anemia of chronic disease due to underlying chronic medical issues, multifactorial. --> Current Hgb >11, no w/u required at this time. --> Monitor for stability # Gram negative sepsis is on abx as per ID --> appreciate recs Subjective Date patient seen: May 12, 2018 ROS Limited/Unobtainable: Yes Hematologic/Lymphatic: Reports: anemia Allergies: Coded Allergies: No Known Allergies (Unverified , 11/12/12) Subjective Pt resting in bed. No acute events. H/H stable. On abx. VS stable. Objective Last 24 Hour Vital Signs Date Time Temp Pulse Resp B/P (MAP) Pulse Ox O2 Delivery O2 Flow Rate FiO2 05/12/18 04:00 97.1 62 20 109/53 (71) 93 05/12/18 04:00 76 05/12/18 00:00 97.7 68 22 123/58 (79) 97 05/12/18 00:00 79 05/11/18 21:21 89 146/76 05/11/18 21:00 Room Air 05/11/18 20:00 89 05/11/18 20:00 97.5 89 20 146/76 (99) 98 05/11/18 16:00 98.0 70 21 124/83 (97) 99 05/11/18 16:00 76 05/11/18 12:00 97.8 72 20 122/87 (99) 98 05/11/18 12:00 94 05/11/18 10:54 116 131/81 05/11/18 09:00 Room Air 05/11/18 08:47 116 131/81 12/22/18 08:00 97.1 116 21 131/81 (98) 98 05/11/18 08:00 117 Intake and Output 05/11/18 05/12/18 18:59 06:59 Intake Total 500 ml Balance 500 ml Intake Oral 500 ml # Voids 2 Laboratory Tests 05/12/18 05:25: White Blood Count 8.8, Red Blood Count 3.66L, Hemoglobin 10.7L, Hematocrit 33.1L , Mean Corpuscular Volume 91, Mean Corpuscular Hemoglobin 29.2, Mean Corpuscular Hemoglobin Concent 32.2, Red Cell Distribution Width 13.9, Platelet Count 296, Mean Platelet Volume 6.7, Neutrophils (%) (Auto) , Lymphocytes (%) ( Auto) , Monocytes (%) (Auto) , Eosinophils (%) (Auto) , Basophils (%) (Auto) , Neutrophils % (Manual) [Pending], Lymphocytes % (Manual) [Pending], Platelet Estimate [Pending], Platelet Morphology [Pending], Sodium Level 129L, Potassium Level 5.9H, Chloride Level 89L, Carbon Dioxide Level 21, Anion Gap 19H, Blood Urea Nitrogen 142H, Creatinine 11.2H, Estimat Glomerular Filtration Rate , Glucose Level 184H, Uric Acid [Pending], Calcium Level 9.2, Phosphorus Level [ Pending], Magnesium Level [Pending], Total Bilirubin 0.7, Aspartate Amino Transf (AST/SGOT) 69H, Alanine Aminotransferase (ALT/SGPT) 36, Alkaline Phosphatase 166H, C-Reactive Protein, Quantitative [Pending], Pro-B-Type Natriuretic Peptide [Pending], Total Protein 6.9, Albumin 2.3L, Globulin 4.6, Albumin/Globulin Ratio 0.5L, Random Vancomycin Level 17.4 Height (Feet): 5 Height (Inches): 5.00 Weight (Pounds): 169 Objective PHYSICAL EXAMINATION: VITAL SIGNS: Have been reviewed HEENT: PERRLA. NECK: Supple. No lymphadenopathy. CHEST: Clear to auscultation. CARDIOVASCULAR: Tachycardic. GASTROINTESTINAL: Distended. Positive bowel sounds. Nontender. No organomegaly. EXTREMITY: A 1+ edema. Reflexes are equal on both sides. Moves all four extremities x1. Reinaldo Leon MD May 12, 2018 07:31
--- NOTE | 2018-05-12 07:42 | NUR ---
HAND-OFF: Report given to MINGO Santillan. Patient is in stable condition.
--- NOTE | 2018-05-12 07:43 | NUR ---
NURSE NOTES: Received report from MINGO Arzate. Patient is resting in bed, sleeping. child monitor in placed, IV site intact, asymptomatic, and patent. Bed is in the lowest position with two side rails up and bed alarm on. Call light and side table within reach. No acute distress noted at this time. Will continue to monitor and follow plan of care.
[2018-05-12 07:59] LABS: PHOSPHORUS 8.7 MG/DL (2.5-4.9)
[2018-05-12] MEDS ORDERED: Vancomycin 1gm/D5W 275ml IVPB ONE ×2 (08:00)
[2018-05-12] MEDS ORDERED: Lidocaine 1% Plain 30 ml INJ SCH (08:45)
[2018-05-12] MEDS ORDERED: Heparin 2000 units/Ns 1000ml INJ SCH (08:45)
[2018-05-12] MEDS: Sertraline 100mg tab ORAL SCH (10:00)
[2018-05-12] MEDS: Docusate 100mg cap ORAL SCH ×3 (10:00→18:00)
[2018-05-12] MEDS: Pantoprazole Inj IVP SCH ×2 (10:00→21:00)
[2018-05-12] MEDS: Metoprolol Tartrate 50mg tab ORAL SCH (10:00)
--- NOTE | 2018-05-12 10:53 | Infectious Diseases Prog Note ---
Assessment/Plan Assessment/Plan antibiotics : vancomycin iv, cefepime A 1. gram negative sepsis 2. gram positive UTI 3. diabetes mellitus 4. hypertension 5. renal failure on dialysis P 1. continue vancomycin iv, cefepime 2. will follow up cultures Subjective ROS Limited/Unobtainable: Yes Allergies: Coded Allergies: No Known Allergies (Unverified , 11/12/12) Objective Vital Signs Last 24 Hour Vital Signs Date Time Temp Pulse Resp B/P (MAP) Pulse Ox O2 Delivery O2 Flow Rate FiO2 05/12/18 10:00 76 133/79 05/12/18 08:00 97.0 76 19 133/79 (97) 97 05/12/18 04:00 97.1 62 20 109/53 (71) 93 05/12/18 04:00 76 05/12/18 00:00 97.7 68 22 123/58 (79) 97 05/12/18 00:00 79 05/11/18 21:21 89 146/76 05/11/18 21:00 Room Air 05/11/18 20:00 89 05/11/18 20:00 97.5 89 20 146/76 (99) 98 05/11/18 16:00 98.0 70 21 124/83 (97) 99 05/11/18 16:00 76 05/11/18 12:00 97.8 72 20 122/87 (99) 98 05/11/18 12:00 94 05/11/18 10:54 116 131/81 Height (Feet): 5 Height (Inches): 5.00 Weight (Pounds): 169 Respiratory/Chest: lungs clear Cardiovascular: normal rate, regular rhythm, no gallop/murmur Abdomen: soft, non tender Extremities: no edema Microbiology Date/Time Source Procedure Growth Status 05/10/18 01:00 Nasal Nares MRSA Culture - Final NO METHICILLIN RESISTANT STAPH AUREUS... Complete 05/10/18 00:35 Urine,Clean Catch Urine Culture - Final Gram Positive Cocci Complete 05/10/18 01:00 Rectum - Final NO CARBAPENEM-RESISTANT ENTEROBACTERI... Complete 05/10/18 01:00 Rectum VRE Culture - Final Enterococcus Faecalis - Vre Complete 05/10/18 00:20 Arm Right Blood Culture - Preliminary Gram Negative Bacillus 1 Gram Negative Bacillus 2 Resulted 05/10/18 00:00 Arm Left Blood Culture - Preliminary Gram Negative Hardy Resulted Laboratory Tests Test 05/12/18 05:25 White Blood Count 8.8 K/UL (4.8-10.8) Red Blood Count 3.66 M/UL (4.70-6.10) L Hemoglobin 10.7 G/DL (14.2-18.0) L Hematocrit 33.1 % (42.0-52.0) L Mean Corpuscular Volume 91 FL (80-99) Mean Corpuscular Hemoglobin 29.2 PG (27.0-31.0) Mean Corpuscular Hemoglobin Concent 32.2 G/DL (32.0-36.0) Red Cell Distribution Width 13.9 % (11.6-14.8) Platelet Count 296 K/UL (150-450) Mean Platelet Volume 6.7 FL (6.5-10.1) Neutrophils (%) (Auto) % (45.0-75.0) Lymphocytes (%) (Auto) % (20.0-45.0) Monocytes (%) (Auto) % (1.0-10.0) Eosinophils (%) (Auto) % (0.0-3.0) Basophils (%) (Auto) % (0.0-2.0) Differential Total Cells Counted 100 Neutrophils % (Manual) 63 % (45-75) Lymphocytes % (Manual) 8 % (20-45) L Monocytes % (Manual) 6 % (1-10) Eosinophils % (Manual) 0 % (0-3) Basophils % (Manual) 0 % (0-2) Band Neutrophils 23 % (0-8) H Platelet Estimate Adequate Platelet Morphology Normal Hypochromasia 1+ Anisocytosis 1+ Sodium Level 129 MMOL/L (136-145) L Potassium Level 5.9 MMOL/L (3.5-5.1) H Chloride Level 89 MMOL/L (98-107) L Carbon Dioxide Level 21 MMOL/L (21-32) Anion Gap 19 mmol/L (5-15) H Blood Urea Nitrogen 142 mg/dL (7-18) H Creatinine 11.2 MG/DL (0.55-1.30) H Estimat Glomerular Filtration Rate mL/min (>60) Glucose Level 184 MG/DL (74-106) H Uric Acid 10.5 MG/DL (2.6-7.2) H Calcium Level 9.2 MG/DL (8.5-10.1) Phosphorus Level 8.7 MG/DL (2.5-4.9) H Magnesium Level 2.4 MG/DL (1.8-2.4) Total Bilirubin 0.7 MG/DL (0.2-1.0) Aspartate Amino Transf (AST/SGOT) 69 U/L (15-37) H Alanine Aminotransferase (ALT/SGPT) 36 U/L (12-78) Alkaline Phosphatase 166 U/L (46-116) H C-Reactive Protein, Quantitative > 70.0 mg/dL (0.00-0.90) H Pro-B-Type Natriuretic Peptide 06904 pg/mL (0-125) H Total Protein 6.9 G/DL (6.4-8.2) Albumin 2.3 G/DL (3.4-5.0) L Globulin 4.6 g/dL Albumin/Globulin Ratio 0.5 (1.0-2.7) L Random Vancomycin Level 17.4 ug/mL Current Medications Medications (Trade) Dose Ordered Sig/Min Route PRN Reason Start Time Stop Time Status Last Admin Dose Admin Acetaminophen (Tylenol) 650 mg Q4H PRN ORAL Mild Pain/Temp > 100.5 05/10/18 07:30 06/09/18 07:29 05/10/18 16:14 Cefepime HCl 500 mg/Dextrose 55 ml @ 110 mls/hr Q24H IVPB 05/12/18 12:00 05/19/18 11:59 Chlorhexidine Gluconate (Tatyana-Hex 2%) 1 applic DAILY@2000 TOPIC 05/12/18 20:00 06/11/18 19:59 Docusate Sodium (Colace) 100 mg TID ORAL 05/11/18 13:00 06/09/18 17:59 05/12/18 10:00 Heparin Sodium/ Sodium Chloride (Heparin 2000 units/Ns 1000ml premix) 2,000 unit ONCE INJ 05/12/18 08:45 05/12/18 23:00 Lidocaine HCl (Xylocaine 1% 30ml) 30 ml ONCE INJ 05/12/18 08:45 05/12/18 23:00 Lorazepam (Ativan) 1 mg Q6H PRN ORAL For Anxiety 05/10/18 23:45 05/17/18 23:44 05/11/18 17:50 Metoclopramide HCl (Reglan) 5 mg BEFORE MEALS ORAL 05/11/18 16:30 06/10/18 16:29 05/12/18 05:55 Metoclopramide HCl (Reglan) 10 mg Q6H PRN IVP Nausea & Vomiting 05/11/18 12:30 06/10/18 12:29 Metoprolol Tartrate (Lopressor) 50 mg Q12HR ORAL 05/11/18 21:00 06/09/18 08:59 05/12/18 10:00 Pantoprazole (Protonix) 40 mg EVERY 12 HOURS IVP 05/11/18 21:00 06/10/18 20:59 05/12/18 10:00 Sertraline HCl (Zoloft) 100 mg DAILY ORAL 05/11/18 09:00 06/10/18 08:59 05/12/18 10:00 Sevelamer Carbonate (Renvela) 1,600 mg THREE TIMES A DAY ORAL 05/11/18 13:00 06/09/18 12:59 05/12/18 10:00 Trazodone HCl (Desyrel) 100 mg BEDTIME ORAL 05/11/18 21:00 06/10/18 20:59 05/11/18 21:21 Vancomycin HCl (Vanco rx to dose) 1 ea DAILY PRN MISC Per rx protocol 05/11/18 10:30 06/10/18 10:29 Martha Dupree MD May 12, 2018 10:53
[2018-05-12] MEDS ORDERED: Cefepime 500mg in D5W 55ml IVPB SCH (12:00)
[2018-05-12] MEDS ORDERED: Heparin 1000 units/ml 1ml Vial INJ SCH (12:30)
[2018-05-12] MEDS ORDERED: Sodium Chloride 500ML 500 ML IV ONE ×3 (13:00→15:45)
--- NOTE | 2018-05-12 13:00 | NUR ---
NURSE NOTES: Patient noted Rapid Afib in the monitors. HR 120 sustaining, Dr. Melo was notified. He was informed of low BP as well.
--- NOTE | 2018-05-12 13:20 | Operative Note - PDOC ---
Operative Note Operative Note Date of Operation/Procedure: May 12, 2018 Pre-op Diagnosis: Renal Insufficiency requiring Urgent Dialysis Procedure: Right femoral temporary hemodialysis catheter insertion Post-op Diagnosis: same as pre-op Surgeon: richmond Anesthesia: local Specimen: none Complications: none Condition: stable Estimated Blood Loss: minimal Drains: none Implant(s) used?: No Indications for Procedure 78M renal insufficiency requiring urgent dialysis. Needs temporary dialysis catheter. discussed with doctor of pharmacy and asked to place catheter. Procedure indicated and recommended. patient currently not with mental status to consent and deteriorating. no family or next of kin. given urgency of need procedure performed emergently to preserve life. Description of Procedure patient made comfortable at bedside. all protective equipment work. right groin prepped and draped in standard surgical fashion. anatomy identified and palpated. local lidocaine 1% infiltrated. finder needle used and right femoral vein cannulated on first attempt. good venous flow noted. guidewire placed and needle removed. small skin incision was made and dilators used. 13f 20cm temp HD catheter placed and guidewire removed. all ports flushed and aspirated well. heparin placed in lines. line sutured in place. dressings applied. ready for HD use Tomas Chandler May 12, 2018 13:20
--- NOTE | 2018-05-12 13:28 | Nephrology Progress Note ---
Assessment/Plan Problem List: (1) ESRD (end stage renal disease) on dialysis (2) Hyponatremia (3) Major depression (4) Nausea & vomiting Assessment Presents with CHF and Low Na NOW HYPOTENSIVE IN ICU ESRD ACS DM HTN h/o GI bleed Depression Plan graft clotted , has a femoral felice right to icu for low bp HOLD ALL MIND ALTERING MEDS - FLUID CHALLENGE ABG pressors Per cardio- HD NEEDED Adjust meds for BP and BS IV protonix per orders Subjective ROS Limited/Unobtainable: Yes Constitutional: Reports: other - sedated Objective Objective Last 24 Hour Vital Signs Date Time Temp Pulse Resp B/P (MAP) Pulse Ox O2 Delivery O2 Flow Rate FiO2 05/12/18 10:00 76 133/79 05/12/18 08:00 97.0 76 19 133/79 (97) 97 05/12/18 04:00 97.1 62 20 109/53 (71) 93 05/12/18 04:00 76 05/12/18 00:00 97.7 68 22 123/58 (79) 97 05/12/18 00:00 79 05/11/18 21:21 89 146/76 05/11/18 21:00 Room Air 05/11/18 20:00 89 05/11/18 20:00 97.5 89 20 146/76 (99) 98 05/11/18 16:00 98.0 70 21 124/83 (97) 99 05/11/18 16:00 76 Intake and Output 05/11/18 05/12/18 19:00 07:00 Intake Total 500 ml Balance 500 ml Intake Oral 500 ml # Voids 2 Laboratory Tests 05/12/18 05:25: White Blood Count 8.8, Red Blood Count 3.66L, Hemoglobin 10.7L, Hematocrit 33.1L , Mean Corpuscular Volume 91, Mean Corpuscular Hemoglobin 29.2, Mean Corpuscular Hemoglobin Concent 32.2, Red Cell Distribution Width 13.9, Platelet Count 296, Mean Platelet Volume 6.7, Neutrophils (%) (Auto) , Lymphocytes (%) ( Auto) , Monocytes (%) (Auto) , Eosinophils (%) (Auto) , Basophils (%) (Auto) , Differential Total Cells Counted 100, Neutrophils % (Manual) 63, Lymphocytes % ( Manual) 8L, Monocytes % (Manual) 6, Eosinophils % (Manual) 0, Basophils % ( Manual) 0, Band Neutrophils 23H, Platelet Estimate Adequate, Platelet Morphology Normal, Hypochromasia 1+, Anisocytosis 1+, Sodium Level 129L, Potassium Level 5.9H, Chloride Level 89L, Carbon Dioxide Level 21, Anion Gap 19H , Blood Urea Nitrogen 142H, Creatinine 11.2H, Estimat Glomerular Filtration Rate , Glucose Level 184H, Uric Acid 10.5H, Calcium Level 9.2, Phosphorus Level 8.7H, Magnesium Level 2.4, Total Bilirubin 0.7, Aspartate Amino Transf (AST/SGOT ) 69H, Alanine Aminotransferase (ALT/SGPT) 36, Alkaline Phosphatase 166H, C- Reactive Protein, Quantitative > 70.0H, Pro-B-Type Natriuretic Peptide 91970S, Total Protein 6.9, Albumin 2.3L, Globulin 4.6, Albumin/Globulin Ratio 0.5L, Random Vancomycin Level 17.4 Height (Feet): 5 Height (Inches): 5.00 Weight (Pounds): 169 General Appearance: no apparent distress, lethargic Cardiovascular: other - irregular Respiratory/Chest: decreased breath sounds Abdomen: distended Objective no change Maurilio Arroyo MD May 12, 2018 13:28
--- NOTE | 2018-05-12 13:55 | NUR ---
NURSE NOTES: BP noted 79/50, HR 122, Afib in the monitor. Patient is awake and responding. Placed the patient in Trendelenburg position and recheck BP was 92/ 47, HR 120. Notified Dr. adler, and he ordered transfer to ICU.
--- NOTE | 2018-05-12 14:02 | NUR ---
NURSE NOTES: patient for transfer to ICU recheck BP 81/50, HR 115, remain afib in the monitor, O2 sat at 2L NC 79-83, 5L simple mask with O2 sat 5L saturation of 94%, pt responsive to name and touch, continue to monitor.
--- NOTE | 2018-05-12 14:12 | Cardiology Report ---
APPROVED REPORT EKG Measurement Heart [id number] Sinus rhythm with premature atrial complexes Left axis deviation Inferior infarct, age undetermined Anteroseptal infarct, age undetermined Abnormal ECG
--- NOTE | 2018-05-12 14:15 | Cardiology Report ---
APPROVED REPORT EKG Measurement Heart [id number] Sinus tachycardia Low voltage QRS Cannot rule out Inferior infarct, age undetermined Cannot rule out Anterior infarct, age undetermined Abnormal ECG
--- NOTE | 2018-05-12 14:50 | NUR ---
NURSE NOTES:Patient arrived in ICU with noted low BP. Called Dr. Arroyo and made aware of the BP with order to give Albumin and MD was also made aware that HD nurse is here with order to cancel HD and do tomorrow. HD nurse aware.
--- NOTE | 2018-05-12 15:00 | NUR ---
NURSE NOTES: Received from 218-1 via bed. Report received from Eva Sanchez RN. Patient arousable to speech, no distress noted while on oxygen via venti mask at 30%. Afib on the monitor 120-125 on the monitor. Low BP noted with SBP 70s. Denies pain. Appears weak and pale. With noted right femoral felice catheter with pigtail, dressing dry and intact. With left upper arm AV shunt. Skin assessment done and noted IAD on perianal and sacrum, red and blanchable heels. Placed bed on lowest position. Patient on isolation.
--- NOTE | 2018-05-12 15:00 | NUR ---
INTER-FACILITY TRANSFER: Patient transferred to ICU, per Dr. adler's order. Report given to MINGO Donahue. Patient transferred in stable condition. Belongings verified upon transferred and given to ICU nurse.
[2018-05-12] MEDS ORDERED: Metoclopramide 10mg/2ml Inj IVP PRN (15:30)
[2018-05-12] MEDS ORDERED: Lidocaine 1% Plain 30 ml INJ PRN ×2 (15:45→18:15)
[2018-05-12] MEDS ORDERED: Heparin 2000 units/Ns 1000ml INJ PRN ×2 (15:45→18:15)
--- NOTE | 2018-05-12 16:00 | NUR ---
NURSE NOTES: Called Dr. Arroyo and made aware of the ABG result and made aware that patient continue to have low BP. With order to follow up with PMD and recommended pulmonary consult.
--- NOTE | 2018-05-12 16:06 | NUR ---
NURSE NOTES: Called and spoke with Dr. Melo and made aware that patient continues to have low BP, afib 120s with order to start on phenylephrine drip. Made aware that patient has no central line at this time. Will follow up with PMD on central line.
--- NOTE | 2018-05-12 16:07 | NUR ---
NURSE NOTES: Called Dr. Leon and made aware of the ABG result with recommendation of pulmonary consult. Also made aware of the low BP but patient has no central line to start vasopressor. Cardiology ordered Phenylephrine but only has peripheral line and no family to consent and patient is confuse. Asked MD if he can make note for emergency insertion of central line but MD has no access to computer at this time.
--- NOTE | 2018-05-12 17:07 | NUR ---
NURSE NOTES: Called and spoke with Dr. Jones and made aware of the consult and ABG result. With order of STAT labs, CXR, Dopamine drip start peripherally initially while no central line then insert central line NORM. Made aware that patient is Afib with rate 120s, MD noted but patient needs to start for BP at this time. Made aware that there is no family. Asked MD if he can make emergency note on need for central line placement with order to follow up with PMD on making notes.
[2018-05-12] MEDS: DOPamine 400mg/250ml 250 ML IV SCH (17:15)
[2018-05-12] MEDS ORDERED: Phenylephrine 50 MG in D5W 245 ML IV SCH (17:15)
--- NOTE | 2018-05-12 17:30 | NUR ---
NURSE NOTES: Unable to get notes for emergency insertion of central line. Patient remained with low BP. Called Dr. Arroyo if it is okay to use pigtail on Donis catheter with order to call Dr. Chandler if okay to use for vasopressors. Called Dr. Chandler made aware of central line placement order but pt and has no family to consent and PMD unable to write emergency note. Also asked MD if also able to use pigtail for vasopressors and MD ordered okay to use for vasopressors until central line access has been placed.
[2018-05-12] MEDS ORDERED: Midodrine 10mg tab ORAL SCH (18:00)
[2018-05-12 18:16] LABS: HEMATOCRIT 27.6 % (42.0-52.0); MEAN CORPUSCULAR VOLUME 92 FL (80-99); PLATELET COUNT 238 K/UL (150-450); RED BLOOD COUNT 3.01 M/UL (4.70-6.10); RED CELL DISTRIBUTION WIDTH 13.7 % (11.6-14.8); WHITE BLOOD COUNT 11.7 K/UL (4.8-10.8)
[2018-05-12 18:21] LABS: BASOPHILS % (AUTO) 0.7 % (0.0-2.0); EOSINOPHILS % (AUTO) 0.2 % (0.0-3.0); LYMPHOCYTES % (AUTO) 1.7 % (20.0-45.0); MONOCYTES % (AUTO) 6.1 % (1.0-10.0); NEUTROPHILS % (AUTO) 91.4 % (45.0-75.0)
[2018-05-12] MEDS: Phenylephrine 50 MG in D5W 245 ML IV SCH (18:41)
--- NOTE | 2018-05-12 18:45 | NUR ---
NURSE NOTES: Patient remained low BP. Started on Phenylephrine drip at 100 mcg/minute.
--- NOTE | 2018-05-12 18:51 | Cardiology Progress Note ---
Assessment/Plan Status: stable Assessment/Plan ASSESSMENT AND PLAN: 1. Lower extremity edema with an elevated BNP in a patient with renal failure on hemodialysis. The patient will be getting hemodialysis per Dr. Arroyo. 2. Chest pain. Currently denies any chest pain, completely rule out ACS EKG showed old inferior and anterior wall GA, but no ischemia. We will get an echocardiogram for further evaluation. ---ECHO with normal LV function 3. End-stage renal disease, on hemodialysis per Dr. Arroyo. 4. Diabetes. 5. History of kidney stones. 6. History of psychiatric problems, dementia. Subjective Cardiovascular: Reports: no symptoms Respiratory: Reports: no symptoms Gastrointestinal/Abdominal: Reports: no symptoms Genitourinary: Reports: no symptoms Subjective COVERAGE FOR LYNDONIE Patient tachycardic, Echo normal LV function, Transferred to ICU, BP 81/50, HR 115, remain afib in the monitor, O2 sat at 2L NC 79-83, 5L simple mask with O2 sat 5L saturation of 94% Objective Last 24 Hour Vital Signs Date Time Temp Pulse Resp B/P (MAP) Pulse Ox O2 Delivery O2 Flow Rate FiO2 05/12/18 18:41 80 68/20 05/12/18 16:00 99 20 78/34 (49) 98 05/12/18 15:30 99 20 53/44 (47) 99 05/12/18 15:15 120 20 83/23 (43) 99 05/12/18 15:00 97.7 121 20 69/32 (44) 100 05/12/18 14:45 121 20 76/40 (52) 99 05/12/18 14:23 84/46 (59) 05/12/18 13:07 83/47 (59) 05/12/18 13:05 92/47 (62) 05/12/18 13:00 74/41 (52) 05/12/18 12:00 97.9 61 20 94/49 (64) 97 05/12/18 12:00 68 05/12/18 10:00 76 133/79 05/12/18 09:00 Room Air 05/12/18 08:00 97.0 76 19 133/79 (97) 97 05/12/18 08:00 71 05/12/18 04:00 97.1 62 20 109/53 (71) 93 05/12/18 04:00 76 05/12/18 00:00 97.7 68 22 123/58 (79) 97 05/12/18 00:00 79 05/11/18 21:21 89 146/76 05/11/18 21:00 Room Air 05/11/18 20:00 89 05/11/18 20:00 97.5 89 20 146/76 (99) 98 General Appearance: no apparent distress, alert EENT: PERRL/EOMI, normal ENT inspection, TMs normal Neck: non-tender, normal alignment, supple, normal inspection, no JVD Rhythm: NSR, Afib Cardiovascular: normal peripheral pulses, normal rate, tachycardia Respiratory/Chest: chest wall non-tender, lungs clear, normal breath sounds, no respiratory distress, no accessory muscle use Abdomen: normal bowel sounds, non tender, soft Extremities: normal range of motion, non-tender Neurologic: mold stamper II-XII grossly normal, no motor/sensory deficits Intake and Output 05/11/18 05/12/18 19:00 07:00 Intake Total 500 ml Balance 500 ml Intake Oral 500 ml # Voids 2 Laboratory Tests Test 05/12/18 05:25 05/12/18 15:50 05/12/18 18:00 White Blood Count 8.8 K/UL (4.8-10.8) 11.7 K/UL (4.8-10.8) H Red Blood Count 3.66 M/UL (4.70-6.10) L 3.01 M/UL (4.70-6.10) L Hemoglobin 10.7 G/DL (14.2-18.0) L 9.0 G/DL (14.2-18.0) L Hematocrit 33.1 % (42.0-52.0) L 27.6 % (42.0-52.0) L Mean Corpuscular Volume 91 FL (80-99) 92 FL (80-99) Mean Corpuscular Hemoglobin 29.2 PG (27.0-31.0) 29.9 PG (27.0-31.0) Mean Corpuscular Hemoglobin Concent 32.2 G/DL (32.0-36.0) 32.6 G/DL (32.0-36.0) Red Cell Distribution Width 13.9 % (11.6-14.8) 13.7 % (11.6-14.8) Platelet Count 296 K/UL (150-450) 238 K/UL (150-450) Mean Platelet Volume 6.7 FL (6.5-10.1) 5.4 FL (6.5-10.1) L Neutrophils (%) (Auto) % (45.0-75.0) 91.4 % (45.0-75.0) H Lymphocytes (%) (Auto) % (20.0-45.0) 1.7 % (20.0-45.0) L Monocytes (%) (Auto) % (1.0-10.0) 6.1 % (1.0-10.0) Eosinophils (%) (Auto) % (0.0-3.0) 0.2 % (0.0-3.0) Basophils (%) (Auto) % (0.0-2.0) 0.7 % (0.0-2.0) Differential Total Cells Counted 100 Neutrophils % (Manual) 63 % (45-75) Lymphocytes % (Manual) 8 % (20-45) L Monocytes % (Manual) 6 % (1-10) Eosinophils % (Manual) 0 % (0-3) Basophils % (Manual) 0 % (0-2) Band Neutrophils 23 % (0-8) H Platelet Estimate Adequate Platelet Morphology Normal Hypochromasia 1+ Anisocytosis 1+ Sodium Level 129 MMOL/L (136-145) L Pending Potassium Level 5.9 MMOL/L (3.5-5.1) H Pending Chloride Level 89 MMOL/L (98-107) L Pending Carbon Dioxide Level 21 MMOL/L (21-32) Pending Anion Gap 19 mmol/L (5-15) H Blood Urea Nitrogen 142 mg/dL (7-18) H Pending Creatinine 11.2 MG/DL (0.55-1.30) H Pending Estimat Glomerular Filtration Rate mL/min (>60) Pending Glucose Level 184 MG/DL (74-106) H Pending Uric Acid 10.5 MG/DL (2.6-7.2) H Calcium Level 9.2 MG/DL (8.5-10.1) Pending Phosphorus Level 8.7 MG/DL (2.5-4.9) H Magnesium Level 2.4 MG/DL (1.8-2.4) Total Bilirubin 0.7 MG/DL (0.2-1.0) Pending Aspartate Amino Transf (AST/SGOT) 69 U/L (15-37) H Pending Alanine Aminotransferase (ALT/SGPT) 36 U/L (12-78) Pending Alkaline Phosphatase 166 U/L (46-116) H Pending C-Reactive Protein, Quantitative > 70.0 mg/dL (0.00-0.90) H Pro-B-Type Natriuretic Peptide 40269 pg/mL (0-125) H Total Protein 6.9 G/DL (6.4-8.2) Pending Albumin 2.3 G/DL (3.4-5.0) L Pending Globulin 4.6 g/dL Pending Albumin/Globulin Ratio 0.5 (1.0-2.7) L Random Vancomycin Level 17.4 ug/mL Arterial Blood pH 7.236 (7.350-7.450) Arterial Blood Partial Pressure CO2 38.8 mmHg (35.0-45.0) Arterial Blood Partial Pressure O2 83.9 mmHg (75.0-100.0) Arterial Blood HCO3 16.1 mmol/L (22.0-26.0) *L Arterial Blood Oxygen Saturation 93.3 % (95-100) L Arterial Blood Base Excess -10.6 (-2-2) *L Luiz Test Positive D-Dimer Pending Troponin I Pending Microbiology Date/Time Source Procedure Growth Status 05/10/18 01:00 Nasal Nares MRSA Culture - Final NO METHICILLIN RESISTANT STAPH AUREUS... Complete 05/10/18 00:35 Urine,Clean Catch Urine Culture - Final Gram Positive Cocci Complete 05/10/18 01:00 Rectum - Final NO CARBAPENEM-RESISTANT ENTEROBACTERI... Complete 05/10/18 01:00 Rectum VRE Culture - Final Enterococcus Faecalis - Vre Complete 05/10/18 00:20 Arm Right Blood Culture - Preliminary Gram Negative Bacillus 1 Gram Negative Bacillus 2 Resulted 05/10/18 00:00 Arm Left Blood Culture - Preliminary Gram Negative Hardy Resulted Denis Melo MD May 12, 2018 18:51
[2018-05-12 18:59] LABS: ALANINE AMINOTRANSFERASE 32 U/L (12-78); ALBUMIN 2.4 G/DL (3.4-5.0); ALBUMIN/GLOBULIN RATIO 0.6 (1.0-2.7); ALKALINE PHOSPHATASE 145 U/L (46-116); ANION GAP 22 mmol/L (5-15); ASPARTATE AMINO TRANSFERASE 46 U/L (15-37); BILIRUBIN,TOTAL 0.6 MG/DL (0.2-1.0); BLOOD UREA NITROGEN 155 mg/dL (7-18); CALCIUM 9.1 MG/DL (8.5-10.1); CARBON DIOXIDE 18 MMOL/L (21-32); CHLORIDE 90 MMOL/L (98-107); CREATININE 11.3 MG/DL (0.55-1.30); POTASSIUM 5.3 MMOL/L (3.5-5.1); SODIUM 130 MMOL/L (136-145)
--- NOTE | 2018-05-12 19:35 | NUR ---
HAND-OFF: Report given to MINGO Jennings. Patient noted with improved SPBP on 90s while on Phenylephrine drip. Endorsed to follow up on the emergency noted from Dr. Leon tomorrow for the central line placement (PICC). Patient has no family and only a neighbor was provided on face sheet and he stated that patient has no family.
[2018-05-12] MEDS ORDERED: Dyna-Hex 2% Top Sol 2oz TOPIC SCH ×2 (20:00)
[2018-05-12] MEDS ORDERED: Heparin 5000 units/ml inj IV SCH (21:30)
[2018-05-12] MEDS ORDERED: Isovue-370 150ml vial INJ PRN (21:30)
--- NOTE | 2018-05-12 21:31 | Pulmonology Progress Note ---
Assessment/Plan Assessment/Plan Patient acutely became hypotensive + hypoxemic + went into AFcRVR. The etiology of his shock is likely distributive from sepsis but given the constellation of findings + an elevated D-dimer there is definetely concern for obstructive shock from VTE/PE. Will start empiric IV heparin gtt and get a STAT CT-angio of the chest. There is no family to consent. I have discussed the plan with the treatment team, including nephrology. We will proceed with IV contrast as this is a dialysis patient. A CT-A is indicated as a submassive/massive PE may require advanced interventions (i.e. throbectomy, catheter directed thrombolysis (EKOS)) for which the patient would need to transfer to a higher level of care: -Start IVUH -D/C DA, start FORTINO -CT-A -Continue Abx -Start HC 100 TID -HD when able with vasopressor support -Repeat ABG -Titrate O2 -May need intubation -D/C all sedating meds -Monitor MS Subjective Allergies: Coded Allergies: No Known Allergies (Unverified , 11/12/12) Objective Last 24 Hour Vital Signs Date Time Temp Pulse Resp B/P (MAP) Pulse Ox O2 Delivery O2 Flow Rate FiO2 05/12/18 19:30 75 20 90/31 (50) 99 05/12/18 19:30 80 20 94/67 (76) 99 05/12/18 19:15 81 20 101/30 (53) 100 05/12/18 19:00 80 20 93/29 (50) 100 05/12/18 18:45 81 20 73/22 (39) 99 05/12/18 18:41 80 68/20 05/12/18 18:30 80 20 68/20 (36) 99 05/12/18 18:15 130 20 84/34 (51) 99 05/12/18 18:00 130 20 94/67 (76) 99 05/12/18 17:45 124 20 94/67 (76) 99 05/12/18 17:30 103 20 94/57 (69) 98 05/12/18 17:15 102 20 74/28 (43) 97 05/12/18 17:00 104 20 73/20 (37) 99 05/12/18 16:45 105 20 73/36 (48) 100 05/12/18 16:30 118 20 68/34 (45) 100 05/12/18 16:15 97.8 122 20 78/34 (49) 98 05/12/18 16:00 99 20 78/34 (49) 98 05/12/18 16:00 122 05/12/18 15:50 125 05/12/18 15:30 99 20 53/44 (47) 99 05/12/18 15:30 Venturi Mask 4.0 Venturi Mask 4.0 05/12/18 15:15 120 20 83/23 (43) 99 05/12/18 15:00 97.7 121 20 69/32 (44) 100 05/12/18 14:45 121 20 76/40 (52) 99 05/12/18 14:23 84/46 (59) 05/12/18 13:07 83/47 (59) 05/12/18 13:05 92/47 (62) 05/12/18 13:00 74/41 (52) 05/12/18 12:00 97.9 61 20 94/49 (64) 97 05/12/18 12:00 68 05/12/18 10:00 76 133/79 05/12/18 09:00 Room Air 05/12/18 08:00 97.0 76 19 133/79 (97) 97 05/12/18 08:00 71 05/12/18 04:00 97.1 62 20 109/53 (71) 93 05/12/18 04:00 76 05/12/18 00:00 97.7 68 22 123/58 (79) 97 05/12/18 00:00 79 Intake and Output 05/11/18 05/12/18 19:00 07:00 Intake Total 500 ml Balance 500 ml Intake Oral 500 ml # Voids 2 Microbiology Date/Time Source Procedure Growth Status 05/10/18 01:00 Nasal Nares MRSA Culture - Final NO METHICILLIN RESISTANT STAPH AUREUS... Complete 05/10/18 00:35 Urine,Clean Catch Urine Culture - Final Gram Positive Cocci Complete 05/10/18 01:00 Rectum - Final NO CARBAPENEM-RESISTANT ENTEROBACTERI... Complete 05/10/18 01:00 Rectum VRE Culture - Final Enterococcus Faecalis - Vre Complete 05/10/18 00:20 Arm Right Blood Culture - Preliminary Gram Negative Bacillus 1 Gram Negative Bacillus 2 Resulted 05/10/18 00:00 Arm Left Blood Culture - Preliminary Gram Negative Hardy Resulted Laboratory Tests 05/12/18 05:25: White Blood Count 8.8, Red Blood Count 3.66L, Hemoglobin 10.7L, Hematocrit 33.1L , Mean Corpuscular Volume 91, Mean Corpuscular Hemoglobin 29.2, Mean Corpuscular Hemoglobin Concent 32.2, Red Cell Distribution Width 13.9, Platelet Count 296, Mean Platelet Volume 6.7, Neutrophils (%) (Auto) , Lymphocytes (%) ( Auto) , Monocytes (%) (Auto) , Eosinophils (%) (Auto) , Basophils (%) (Auto) , Differential Total Cells Counted 100, Neutrophils % (Manual) 63, Lymphocytes % ( Manual) 8L, Monocytes % (Manual) 6, Eosinophils % (Manual) 0, Basophils % ( Manual) 0, Band Neutrophils 23H, Platelet Estimate Adequate, Platelet Morphology Normal, Hypochromasia 1+, Anisocytosis 1+, Sodium Level 129L, Potassium Level 5.9H, Chloride Level 89L, Carbon Dioxide Level 21, Anion Gap 19H , Blood Urea Nitrogen 142H, Creatinine 11.2H, Estimat Glomerular Filtration Rate , Glucose Level 184H, Uric Acid 10.5H, Calcium Level 9.2, Phosphorus Level 8.7H, Magnesium Level 2.4, Total Bilirubin 0.7, Aspartate Amino Transf (AST/SGOT ) 69H, Alanine Aminotransferase (ALT/SGPT) 36, Alkaline Phosphatase 166H, C- Reactive Protein, Quantitative > 70.0H, Pro-B-Type Natriuretic Peptide 50712C, Total Protein 6.9, Albumin 2.3L, Globulin 4.6, Albumin/Globulin Ratio 0.5L, Random Vancomycin Level 17.4 05/12/18 15:50: Arterial Blood pH 7.236*L, Arterial Blood Partial Pressure CO2 38.8, Arterial Blood Partial Pressure O2 83.9, Arterial Blood HCO3 16.1*L, Arterial Blood Oxygen Saturation 93.3L, Arterial Blood Base Excess -10.6*L, Luiz Test Positive 05/12/18 18:00: White Blood Count 11.7H, Red Blood Count 3.01L, Hemoglobin 9.0L, Hematocrit 27.6L, Mean Corpuscular Volume 92, Mean Corpuscular Hemoglobin 29.9, Mean Corpuscular Hemoglobin Concent 32.6, Red Cell Distribution Width 13.7, Platelet Count 238, Mean Platelet Volume 5.4L, Neutrophils (%) (Auto) 91.4H, Lymphocytes (%) (Auto) 1.7L, Monocytes (%) (Auto) 6.1, Eosinophils (%) (Auto) 0.2, Basophils (%) (Auto) 0.7, Sodium Level 130L, Potassium Level 5.3H, Chloride Level 90L, Carbon Dioxide Level 18L, Anion Gap 22H, Blood Urea Nitrogen 155H, Creatinine 11.3H, Estimat Glomerular Filtration Rate , Glucose Level 183H, Calcium Level 9.1, Total Bilirubin 0.6, Aspartate Amino Transf (AST/SGOT) 46H, Alanine Aminotransferase (ALT/SGPT) 32, Alkaline Phosphatase 145H, Total Protein 6.3L, Albumin 2.4L, Globulin 3.9, Albumin/Globulin Ratio 0.6L, D-Dimer 13.57H, Troponin I 0.005 Current Medications Medications (Trade) Dose Ordered Sig/Min Route PRN Reason Start Time Stop Time Status Last Admin Dose Admin Acetaminophen (Tylenol) 650 mg Q4H PRN ORAL Mild Pain/Temp > 100.5 05/12/18 15:30 06/09/18 15:29 Allopurinol (Allopurinol) 300 mg DAILY ORAL 05/13/18 09:00 06/12/18 08:59 Cefepime HCl 500 mg/Dextrose 55 ml @ 110 mls/hr Q24H IVPB 05/13/18 12:00 05/19/18 11:59 Chlorhexidine Gluconate (Tatyana-Hex 2%) 1 applic DAILY@2000 TOPIC 05/12/18 20:00 06/11/18 19:59 Docusate Sodium (Colace) 100 mg TID ORAL 05/12/18 18:00 06/09/18 17:59 Dopamine HCl/ Dextrose 250 ml @ 0 mls/hr Q24H IV 05/12/18 17:15 06/11/18 17:14 Heparin Sodium/ Sodium Chloride (Heparin 2000 units/Ns 1000ml premix) 2,000 unit ONCE PRN INJ picc line placement 05/12/18 18:15 05/14/18 18:14 Lidocaine HCl (Xylocaine 1% 30ml) 30 ml ONCE PRN INJ picc line placement 05/12/18 18:15 05/14/18 18:14 Metoclopramide HCl (Reglan) 10 mg Q6H PRN IVP Nausea & Vomiting 05/12/18 15:30 06/10/18 15:29 Midodrine (Pro-Amatine) 10 mg THREE TIMES A DAY ORAL 05/12/18 18:00 06/11/18 17:59 UNV Pantoprazole (Protonix) 40 mg EVERY 12 HOURS IVP 05/12/18 21:00 06/10/18 20:59 Phenylephrine HCl 50 mg/Dextrose 250 ml @ 0 mls/hr Q24H IV 05/12/18 17:45 06/11/18 17:44 05/12/18 18:41 Sevelamer Carbonate (Renvela) 1,600 mg THREE TIMES A DAY ORAL 05/12/18 18:00 06/09/18 12:59 Vancomycin HCl (Vanco rx to dose) 1 ea DAILY PRN MISC Per rx protocol 05/13/18 09:00 06/10/18 10:29 Daryl Jones MD May 12, 2018 21:31
[2018-05-12] MEDS: Hydrocortisone 100mg Inj IV SCH (22:00)
--- NOTE | 2018-05-12 22:19 | General Progress Note ---
Assessment/Plan Problem List: (1) Major depression ICD Codes: F32.9 - Major depressive disorder, single episode, unspecified SNOMED: 214925706 (2) anxiety disorder Assessment/Plan zoloft 100mg q daily was dced (trazodone 100mg qh) provided ro/st[ Subjective Neurologic/Psychiatric: Reports: anxiety, depressed Allergies: Coded Allergies: No Known Allergies (Unverified , 11/12/12) Objective Last 24 Hour Vital Signs Date Time Temp Pulse Resp B/P (MAP) Pulse Ox O2 Delivery O2 Flow Rate FiO2 05/12/18 19:30 75 20 90/31 (50) 99 05/12/18 19:30 80 20 94/67 (76) 99 05/12/18 19:15 81 20 101/30 (53) 100 05/12/18 19:00 80 20 93/29 (50) 100 05/12/18 18:45 81 20 73/22 (39) 99 05/12/18 18:41 80 68/20 05/12/18 18:30 80 20 68/20 (36) 99 05/12/18 18:15 130 20 84/34 (51) 99 05/12/18 18:00 130 20 94/67 (76) 99 05/12/18 17:45 124 20 94/67 (76) 99 05/12/18 17:30 103 20 94/57 (69) 98 05/12/18 17:15 102 20 74/28 (43) 97 05/12/18 17:00 104 20 73/20 (37) 99 05/12/18 16:45 105 20 73/36 (48) 100 05/12/18 16:30 118 20 68/34 (45) 100 05/12/18 16:15 97.8 122 20 78/34 (49) 98 05/12/18 16:00 99 20 78/34 (49) 98 18 16:00 122 05/12/18 15:50 125 05/12/18 15:30 99 20 53/44 (47) 99 05/12/18 15:30 Venturi Mask 4.0 Venturi Mask 4.0 05/12/18 15:15 120 20 83/23 (43) 99 05/12/18 15:00 97.7 121 20 69/32 (44) 100 05/12/18 14:45 121 20 76/40 (52) 99 05/12/18 14:23 84/46 (59) 05/12/18 13:07 83/47 (59) 05/12/18 13:05 92/47 (62) 05/12/18 13:00 74/41 (52) 05/12/18 12:00 97.9 61 20 94/49 (64) 97 05/12/18 12:00 68 05/12/18 10:00 76 133/79 05/12/18 09:00 Room Air 05/12/18 08:00 97.0 76 19 133/79 (97) 97 05/12/18 08:00 71 05/12/18 04:00 97.1 62 20 109/53 (71) 93 05/12/18 04:00 76 05/12/18 00:00 97.7 68 22 123/58 (79) 97 05/12/18 00:00 79 Intake and Output 05/11/18 05/12/18 19:00 07:00 Intake Total 500 ml Balance 500 ml Intake Oral 500 ml # Voids 2 Laboratory Tests 05/12/18 05:25: White Blood Count 8.8, Red Blood Count 3.66L, Hemoglobin 10.7L, Hematocrit 33.1L , Mean Corpuscular Volume 91, Mean Corpuscular Hemoglobin 29.2, Mean Corpuscular Hemoglobin Concent 32.2, Red Cell Distribution Width 13.9, Platelet Count 296, Mean Platelet Volume 6.7, Neutrophils (%) (Auto) , Lymphocytes (%) ( Auto) , Monocytes (%) (Auto) , Eosinophils (%) (Auto) , Basophils (%) (Auto) , Differential Total Cells Counted 100, Neutrophils % (Manual) 63, Lymphocytes % ( Manual) 8L, Monocytes % (Manual) 6, Eosinophils % (Manual) 0, Basophils % ( Manual) 0, Band Neutrophils 23H, Platelet Estimate Adequate, Platelet Morphology Normal, Hypochromasia 1+, Anisocytosis 1+, Sodium Level 129L, Potassium Level 5.9H, Chloride Level 89L, Carbon Dioxide Level 21, Anion Gap 19H , Blood Urea Nitrogen 142H, Creatinine 11.2H, Estimat Glomerular Filtration Rate , Glucose Level 184H, Uric Acid 10.5H, Calcium Level 9.2, Phosphorus Level 8.7H, Magnesium Level 2.4, Total Bilirubin 0.7, Aspartate Amino Transf (AST/SGOT ) 69H, Alanine Aminotransferase (ALT/SGPT) 36, Alkaline Phosphatase 166H, C- Reactive Protein, Quantitative > 70.0H, Pro-B-Type Natriuretic Peptide 82434J, Total Protein 6.9, Albumin 2.3L, Globulin 4.6, Albumin/Globulin Ratio 0.5L, Random Vancomycin Level 17.4 05/12/18 15:50: Arterial Blood pH 7.236*L, Arterial Blood Partial Pressure CO2 38.8, Arterial Blood Partial Pressure O2 83.9, Arterial Blood HCO3 16.1*L, Arterial Blood Oxygen Saturation 93.3L, Arterial Blood Base Excess -10.6*L, Luiz Test Positive 05/12/18 18:00: White Blood Count 11.7H, Red Blood Count 3.01L, Hemoglobin 9.0L, Hematocrit 27.6L, Mean Corpuscular Volume 92, Mean Corpuscular Hemoglobin 29.9, Mean Corpuscular Hemoglobin Concent 32.6, Red Cell Distribution Width 13.7, Platelet Count 238, Mean Platelet Volume 5.4L, Neutrophils (%) (Auto) 91.4H, Lymphocytes (%) (Auto) 1.7L, Monocytes (%) (Auto) 6.1, Eosinophils (%) (Auto) 0.2, Basophils (%) (Auto) 0.7, Sodium Level 130L, Potassium Level 5.3H, Chloride Level 90L, Carbon Dioxide Level 18L, Anion Gap 22H, Blood Urea Nitrogen 155H, Creatinine 11.3H, Estimat Glomerular Filtration Rate , Glucose Level 183H, Calcium Level 9.1, Total Bilirubin 0.6, Aspartate Amino Transf (AST/SGOT) 46H, Alanine Aminotransferase (ALT/SGPT) 32, Alkaline Phosphatase 145H, Total Protein 6.3L, Albumin 2.4L, Globulin 3.9, Albumin/Globulin Ratio 0.6L, D-Dimer 13.57H, Troponin I 0.005 05/12/18 21:25: Arterial Blood pH 7.233*L, Arterial Blood Partial Pressure CO2 42.5, Arterial Blood Partial Pressure O2 101.0H, Arterial Blood HCO3 17.5*L, Arterial Blood Oxygen Saturation 96.1, Arterial Blood Base Excess -9.4*L, Luiz Test Positive Height (Feet): 5 Height (Inches): 5.00 Weight (Pounds): 168 General Appearance: alert, confused Chely Kulkarni MD May 12, 2018 22:19
[2018-05-12] MEDS: Dyna-Hex 2% Top Sol 2oz TOPIC SCH (22:50)
[2018-05-12] MEDS: Heparin 25,000u/D5W 500ml 500 ML IV SCH (23:01)
[2018-05-13] VITALS (46 sets, daily range): BP systolic 90–164; BP diastolic 28–87
[2018-05-13] MEDS: Phenylephrine 50 MG in D5W 245 ML IV SCH (01:39)
--- NOTE | 2018-05-13 03:40 | NUR ---
NURSE NOTES: Pt kept clean and dry. CHG bath given. Repositioned and tolerated well.
[2018-05-13 05:46] LABS: HEMATOCRIT 28.6 % (42.0-52.0); HEMOGLOBIN 9.4 G/DL (14.2-18.0); MEAN CORPUSCULAR VOLUME 92 FL (80-99); PLATELET COUNT 270 K/UL (150-450); RED CELL DISTRIBUTION WIDTH 14.2 % (11.6-14.8); WHITE BLOOD COUNT 17.9 K/UL (4.8-10.8)
[2018-05-13 06:13] LABS: PHOSPHORUS 9.8 MG/DL (2.5-4.9)
[2018-05-13 06:23] LABS: ALANINE AMINOTRANSFERASE 31 U/L (12-78); ALBUMIN 2.3 G/DL (3.4-5.0); ALBUMIN/GLOBULIN RATIO 0.5 (1.0-2.7); ALKALINE PHOSPHATASE 171 U/L (46-116); ANION GAP 22 mmol/L (5-15); ASPARTATE AMINO TRANSFERASE 57 U/L (15-37); BILIRUBIN,TOTAL 0.5 MG/DL (0.2-1.0); BLOOD UREA NITROGEN 163 mg/dL (7-18); CALCIUM 8.7 MG/DL (8.5-10.1); CARBON DIOXIDE 17 MMOL/L (21-32); CHLORIDE 88 MMOL/L (98-107); CREATININE 11.4 MG/DL (0.55-1.30); POTASSIUM 5.7 MMOL/L (3.5-5.1); SODIUM 127 MMOL/L (136-145)
--- NOTE | 2018-05-13 06:24 | NUR ---
NURSE NOTES: PTT 86 sec, no change in rate. Ordered next PTT draw tomorrow AM.
[2018-05-13] MEDS: Hydrocortisone 100mg Inj IV SCH ×3 (06:32→22:07)
--- NOTE | 2018-05-13 07:39 | NUR ---
HAND-OFF: Report given to MINGO Carrizales. Pt getting HD now. HD RN in room. Patient in stable condition.
--- NOTE | 2018-05-13 08:00 | NUR ---
NURSE NOTES: Received patient eyes open, speech incoherent. Patient seems confused. personnel monitor showing SR HR controlled. 2 L nasal cannula saturating 100%. Lung sounds diminished bilaterally. NPO at the time. Hypoactive bowel sounds present on all 4 quadrants. Patient aneuric. Currently undergoing dialysis - tolerating well. Dr. Arroyo at bedside - all lab results reported to . Luis Eduardo forearm felice cath with pigtail. R upper arm 20 and R ac 20. Patient on heparin drip 18 U/kg/hr. PTT scheduled for TOMORROW AM. Florentino at 100 mcg/hr. Titrated down to 80 mcg/hr. Tolerating well, pressure stable. Dr. Jones at bedside order obtained for STAT CT CHEST ABD PELVIS. NGT required for administration of contrast - order obtained from Dr. Jones. Bed on lowest position, bed alarm on, HOB elevated. Will continue plan of care.
--- NOTE | 2018-05-13 08:57 | Pulmonolgy Critical Care Note ---
Critical Care - Asmt/Plan Problems: (1) Shock (2) Hypoxemia (3) Elevated d-dimer (4) Hypotension (5) Atrial fibrillation (6) ESRD (end stage renal disease) on dialysis (7) ACS (acute coronary syndrome) (8) Sacral decubitus ulcer, stage III Assessment/Plan: -Patient being dialyzed now -Continue IVUH -Monitor for bleeding -CT-A CHEST, will scan AP at same time given unknown etiology of recent abdominal surgery and induration under trochar site -Abx per ID -Titrate FORTINO to keep MAP > 60 -HC 100 TID and taper -Repeat ABG after HD -Titrate O2 -Hold all sedating meds -Monitor MS -D/W Dr. Chandler, he will evaluate abdomen CCT 65 Critical Care - Objective Last 24 Hour Vital Signs Date Time Temp Pulse Resp B/P (MAP) Pulse Ox O2 Delivery O2 Flow Rate FiO2 05/13/18 07:30 98.4 80 18 144/58 (86) 100 05/13/18 07:00 77 17 140/55 (83) 100 05/13/18 06:30 74 17 164/56 (92) 100 05/13/18 06:00 70 15 158/82 (107) 100 05/13/18 05:30 66 18 114/31 (58) 94 05/13/18 05:00 64 18 115/33 (60) 94 05/13/18 04:30 65 19 103/31 (55) 97 05/13/18 04:00 98.3 67 19 90/32 (51) 96 05/13/18 03:30 68 19 93/32 (52) 100 05/13/18 03:00 72 20 123/33 (63) 100 05/13/18 02:30 75 20 122/35 (64) 99 05/13/18 02:05 82 20 118/36 (63) 99 05/13/18 01:39 80 98/28 05/13/18 01:30 81 22 96/28 (50) 99 05/13/18 01:00 81 22 120/40 (66) 99 05/13/18 00:30 80 23 122/32 (62) 100 05/13/18 00:00 Nasal Cannula 3.0 Nasal Cannula 3.0 05/13/18 00:00 78 05/13/18 00:00 98.3 84 22 122/31 (61) 100 05/12/18 23:30 82 22 93/26 (48) 100 05/12/18 23:15 78 20 90/32 (51) 100 05/12/18 23:00 78 20 78/22 (40) 100 18 22:45 79 22 82/25 (44) 100 05/12/18 22:30 76 20 88/24 (45) 100 05/12/18 22:15 78 22 78/28 (45) 100 05/12/18 22:00 75 22 79/30 (46) 100 05/12/18 21:45 80 23 91/28 (49) 100 05/12/18 21:30 82 20 94/32 (52) 100 05/12/18 21:15 78 22 99/30 (53) 100 18 21:00 76 20 111/32 (58) 100 05/12/18 20:45 76 22 104/40 (61) 100 05/12/18 20:30 75 22 108/35 (59) 100 05/12/18 20:15 76 23 106/39 (61) 100 05/12/18 20:00 Venturi Mask 10.0 Venturi Mask 10.0 05/12/18 20:00 78 25 93/28 (49) 99 05/12/18 20:00 75 05/12/18 19:45 98.0 75 22 102/34 (56) 99 05/12/18 19:30 75 20 90/31 (50) 99 05/12/18 19:30 80 20 94/67 (76) 99 05/12/18 19:15 81 20 101/30 (53) 100 18 19:00 80 20 93/29 (50) 100 18 18:45 81 20 73/22 (39) 99 18 18:41 80 68/20 18 18:30 80 20 68/20 (36) 99 18 18:15 130 20 84/34 (51) 99 18 18:00 130 20 94/67 (76) 99 05/12/18 17:45 124 20 94/67 (76) 99 18 17:30 103 20 94/57 (69) 98 12/23/18 17:15 102 20 74/28 (43) 97 05/12/18 17:00 104 20 73/20 (37) 99 05/12/18 16:45 105 20 73/36 (48) 100 05/12/18 16:30 118 20 68/34 (45) 100 05/12/18 16:15 97.8 122 20 78/34 (49) 98 05/12/18 16:00 99 20 78/34 (49) 98 05/12/18 16:00 122 05/12/18 15:50 125 05/12/18 15:30 99 20 53/44 (47) 99 05/12/18 15:30 Venturi Mask 4.0 Venturi Mask 4.0 05/12/18 15:15 120 20 83/23 (43) 99 05/12/18 15:00 97.7 121 20 69/32 (44) 100 05/12/18 14:45 121 20 76/40 (52) 99 05/12/18 14:23 84/46 (59) 05/12/18 13:07 83/47 (59) 05/12/18 13:05 92/47 (62) 05/12/18 13:00 74/41 (52) 05/12/18 12:00 97.9 61 20 94/49 (64) 97 05/12/18 12:00 68 05/12/18 10:00 76 133/79 05/12/18 09:00 Room Air Status: awake, other - confused Condition: critical HEENT: atraumatic Lungs: rhonchi Heart: HR/BP unstable Abdomen: soft, non-tender, active bowel sounds, other - trochar sites with some induration Extremities: no C/C/E Decubiti: location - sacral 3 Blood Sugars: BS controlled Critical Care - Subjective ROS Limited/Unobtainable: Yes ICU Day: 2 Interval Events: Tx'd to ICU ON with hypoTN, had a L fem mahurker, on FORTINO Rate controlled AF Started on IVUH, CT-A not done Awake and confused Being dialyzed now Now 100% on 2L Condition: critical IV Access: central EKG Rhythm: Atrial Fibrillation Fluids: SLIV Drips: FORTINO@80 I&O: Intake and Output 05/12/18 05/13/18 19:00 07:00 Output Total 0 ml 0 ml Balance 0 ml 0 ml Output Urine Total 0 ml 0 ml Subjective: CROW CXR: Not done yet Labs: Laboratory Tests Test 05/12/18 15:50 05/12/18 18:00 05/12/18 21:25 05/13/18 05:00 Arterial Blood pH 7.236 (7.350-7.450) 7.233 (7.350-7.450) Arterial Blood Partial Pressure CO2 38.8 mmHg (35.0-45.0) 42.5 mmHg (35.0-45.0) Arterial Blood Partial Pressure O2 83.9 mmHg (75.0-100.0) 101.0 mmHg (75.0-100.0) H Arterial Blood HCO3 16.1 mmol/L (22.0-26.0) *L 17.5 mmol/L (22.0-26.0) *L Arterial Blood Oxygen Saturation 93.3 % (95-100) L 96.1 % (95-100) Arterial Blood Base Excess -10.6 (-2-2) *L -9.4 (-2-2) *L Luiz Test Positive Positive White Blood Count 11.7 K/UL (4.8-10.8) H 17.9 K/UL (4.8-10.8) #H Red Blood Count 3.01 M/UL (4.70-6.10) L 3.10 M/UL (4.70-6.10) L Hemoglobin 9.0 G/DL (14.2-18.0) L 9.4 G/DL (14.2-18.0) L Hematocrit 27.6 % (42.0-52.0) L 28.6 % (42.0-52.0) L Mean Corpuscular Volume 92 FL (80-99) 92 FL (80-99) Mean Corpuscular Hemoglobin 29.9 PG (27.0-31.0) 30.3 PG (27.0-31.0) Mean Corpuscular Hemoglobin Concent 32.6 G/DL (32.0-36.0) 32.8 G/DL (32.0-36.0) Red Cell Distribution Width 13.7 % (11.6-14.8) 14.2 % (11.6-14.8) Platelet Count 238 K/UL (150-450) 270 K/UL (150-450) Mean Platelet Volume 5.4 FL (6.5-10.1) L 6.4 FL (6.5-10.1) L Neutrophils (%) (Auto) 91.4 % (45.0-75.0) H % (45.0-75.0) Lymphocytes (%) (Auto) 1.7 % (20.0-45.0) L % (20.0-45.0) Monocytes (%) (Auto) 6.1 % (1.0-10.0) % (1.0-10.0) Eosinophils (%) (Auto) 0.2 % (0.0-3.0) % (0.0-3.0) Basophils (%) (Auto) 0.7 % (0.0-2.0) % (0.0-2.0) Activated Partial Thromboplast Time 40 SEC (23-33) H 86 SEC (23-33) H D-Dimer 13.57 mg/L FEU (0.00-0.49) H Sodium Level 130 MMOL/L (136-145) L 127 MMOL/L (136-145) L Potassium Level 5.3 MMOL/L (3.5-5.1) H 5.7 MMOL/L (3.5-5.1) H Chloride Level 90 MMOL/L (98-107) L 88 MMOL/L (98-107) L Carbon Dioxide Level 18 MMOL/L (21-32) L 17 MMOL/L (21-32) L Anion Gap 22 mmol/L (5-15) H 22 mmol/L (5-15) H Blood Urea Nitrogen 155 mg/dL (7-18) H 163 mg/dL (7-18) H Creatinine 11.3 MG/DL (0.55-1.30) H 11.4 MG/DL (0.55-1.30) H Estimat Glomerular Filtration Rate mL/min (>60) mL/min (>60) Glucose Level 183 MG/DL (74-106) H 224 MG/DL (74-106) H Calcium Level 9.1 MG/DL (8.5-10.1) 8.7 MG/DL (8.5-10.1) Total Bilirubin 0.6 MG/DL (0.2-1.0) 0.5 MG/DL (0.2-1.0) Aspartate Amino Transf (AST/SGOT) 46 U/L (15-37) H 57 U/L (15-37) H Alanine Aminotransferase (ALT/SGPT) 32 U/L (12-78) 31 U/L (12-78) Alkaline Phosphatase 145 U/L (46-116) H 171 U/L (46-116) H Troponin I 0.005 ng/mL (0.000-0.056) 0.000 ng/mL (0.000-0.056) Total Protein 6.3 G/DL (6.4-8.2) L 6.8 G/DL (6.4-8.2) Albumin 2.4 G/DL (3.4-5.0) L 2.3 G/DL (3.4-5.0) L Globulin 3.9 g/dL 4.5 g/dL Albumin/Globulin Ratio 0.6 (1.0-2.7) L 0.5 (1.0-2.7) L Differential Total Cells Counted 100 Neutrophils % (Manual) 85 % (45-75) H Lymphocytes % (Manual) 2 % (20-45) L Monocytes % (Manual) 2 % (1-10) Eosinophils % (Manual) 0 % (0-3) Basophils % (Manual) 0 % (0-2) Band Neutrophils 11 % (0-8) H Platelet Estimate Adequate Platelet Morphology Normal Hypochromasia 1+ Anisocytosis 1+ Phosphorus Level 9.8 MG/DL (2.5-4.9) H Magnesium Level 2.2 MG/DL (1.8-2.4) C-Reactive Protein, Quantitative 38.7 mg/dL (0.00-0.90) H Pro-B-Type Natriuretic Peptide 37361 pg/mL (0-125) H Random Vancomycin Level 23.1 ug/mL Daryl Jones MD May 13, 2018 08:56
[2018-05-13] MEDS: Pantoprazole Inj IVP SCH ×2 (09:00→20:40)
[2018-05-13] MEDS: Docusate 100mg cap ORAL SCH ×3 (09:00→18:00)
[2018-05-13] MEDS: Isovue-300 100ml vial INJ SCH (09:00)
--- NOTE | 2018-05-13 09:44 | NUR ---
NURSE NOTES: HR tachy in 140s. Dialysis complete. Dr. Melo notified order obtained for digoxin 0.25. Will continue plan of care.
[2018-05-13] MEDS ORDERED: Digoxin 0.5mg/2ml Inj IVP SCH (10:15)
--- NOTE | 2018-05-13 10:17 | NUR ---
NURSE NOTES: Patient turned and repositioned. 1 L output from dialysis. Digoxin administered per MD order for tachycardia of hr above 130. Awaiting for HR to regulate to insert NGT to prevent further agitation to patient. Will continue plan of care.
--- NOTE | 2018-05-13 10:44 | Nephrology Progress Note ---
Assessment/Plan Problem List: (1) ESRD (end stage renal disease) on dialysis (2) Hyponatremia (3) Major depression (4) Nausea & vomiting Assessment hemodynamically stablized over night Presents with CHF and Low Na ESRD ACS DM HTN h/o GI bleed Depression Plan on HD now- tolerating well. graft clotted , has a femoral felice right in icu for low bp HOLD ALL MIND ALTERING MEDS - FLUID CHALLENGE ABG pressors as needed St eval Per cardio- HD NEEDED Adjust meds for BP and BS IV protonix per orders Subjective ROS Limited/Unobtainable: No Constitutional: Reports: malaise Objective Objective Last 24 Hour Vital Signs Date Time Temp Pulse Resp B/P (MAP) Pulse Ox O2 Delivery O2 Flow Rate FiO2 05/13/18 10:13 138 05/13/18 10:00 138 15 144/64 (90) 100 05/13/18 09:52 Nasal Cannula 3.0 05/13/18 09:30 88 15 105/50 (68) 100 05/13/18 09:00 87 17 130/55 (80) 100 05/13/18 08:30 86 17 135/58 (83) 100 05/13/18 08:00 82 17 130/56 (80) 100 05/13/18 07:30 98.4 80 18 144/58 (86) 100 05/13/18 07:00 77 17 140/55 (83) 100 05/13/18 06:30 74 17 164/56 (92) 100 05/13/18 06:00 70 15 158/82 (107) 100 05/13/18 05:30 66 18 114/31 (58) 94 05/13/18 05:00 64 18 115/33 (60) 94 05/13/18 04:30 65 19 103/31 (55) 97 05/13/18 04:00 98.3 67 19 90/32 (51) 96 05/13/18 03:30 68 19 93/32 (52) 100 05/13/18 03:00 72 20 123/33 (63) 100 05/13/18 02:30 75 20 122/35 (64) 99 05/13/18 02:05 82 20 118/36 (63) 99 05/13/18 01:39 80 98/28 05/13/18 01:30 81 22 96/28 (50) 99 05/13/18 01:00 81 22 120/40 (66) 99 05/13/18 00:30 80 23 122/32 (62) 100 05/13/18 00:00 Nasal Cannula 3.0 Nasal Cannula 3.0 05/13/18 00:00 78 05/13/18 00:00 98.3 84 22 122/31 (61) 100 05/12/18 23:30 82 22 93/26 (48) 100 05/12/18 23:15 78 20 90/32 (51) 100 05/12/18 23:00 78 20 78/22 (40) 100 05/12/18 22:45 79 22 82/25 (44) 100 05/12/18 22:30 76 20 88/24 (45) 100 05/12/18 22:15 78 22 78/28 (45) 100 05/12/18 22:00 75 22 79/30 (46) 100 05/12/18 21:45 80 23 91/28 (49) 100 05/12/18 21:30 82 20 94/32 (52) 100 05/12/18 21:15 78 22 99/30 (53) 100 05/12/18 21:00 76 20 111/32 (58) 100 05/12/18 20:45 76 22 104/40 (61) 100 05/12/18 20:30 75 22 108/35 (59) 100 05/12/18 20:15 76 23 106/39 (61) 100 05/12/18 20:00 Venturi Mask 10.0 Venturi Mask 10.0 05/12/18 20:00 78 25 93/28 (49) 99 05/12/18 20:00 75 05/12/18 19:45 98.0 75 22 102/34 (56) 99 05/12/18 19:30 75 20 90/31 (50) 99 05/12/18 19:30 80 20 94/67 (76) 99 05/12/18 19:15 81 20 101/30 (53) 100 05/12/18 19:00 80 20 93/29 (50) 100 05/12/18 18:45 81 20 73/22 (39) 99 05/12/18 18:41 80 68/20 05/12/18 18:30 80 20 68/20 (36) 99 05/12/18 18:15 130 20 84/34 (51) 99 18 18:00 130 20 94/67 (76) 99 18 17:45 124 20 94/67 (76) 99 18 17:30 103 20 94/57 (69) 98 05/12/18 17:15 102 20 74/28 (43) 97 05/12/18 17:15 115/66 05/12/18 17:00 104 20 73/20 (37) 99 05/12/18 16:45 105 20 73/36 (48) 100 05/12/18 16:30 118 20 68/34 (45) 100 05/12/18 16:15 97.8 122 20 78/34 (49) 98 05/12/18 16:00 99 20 78/34 (49) 98 05/12/18 16:00 122 05/12/18 15:50 125 05/12/18 15:30 99 20 53/44 (47) 99 05/12/18 15:30 Venturi Mask 4.0 Venturi Mask 4.0 05/12/18 15:15 120 20 83/23 (43) 99 05/12/18 15:00 97.7 121 20 69/32 (44) 100 05/12/18 14:45 121 20 76/40 (52) 99 05/12/18 14:23 84/46 (59) 05/12/18 13:07 83/47 (59) 05/12/18 13:05 92/47 (62) 05/12/18 13:00 74/41 (52) 05/12/18 12:00 97.9 61 20 94/49 (64) 97 05/12/18 12:00 68 Intake and Output 05/12/18 05/13/18 19:00 07:00 Output Total 0 ml 0 ml Balance 0 ml 0 ml Output Urine Total 0 ml 0 ml Laboratory Tests 05/12/18 15:50: Arterial Blood pH 7.236*L, Arterial Blood Partial Pressure CO2 38.8, Arterial Blood Partial Pressure O2 83.9, Arterial Blood HCO3 16.1*L, Arterial Blood Oxygen Saturation 93.3L, Arterial Blood Base Excess -10.6*L, Luiz Test Positive 05/12/18 18:00: White Blood Count 11.7H, Red Blood Count 3.01L, Hemoglobin 9.0L, Hematocrit 27.6L, Mean Corpuscular Volume 92, Mean Corpuscular Hemoglobin 29.9, Mean Corpuscular Hemoglobin Concent 32.6, Red Cell Distribution Width 13.7, Platelet Count 238, Mean Platelet Volume 5.4L, Neutrophils (%) (Auto) 91.4H, Lymphocytes (%) (Auto) 1.7L, Monocytes (%) (Auto) 6.1, Eosinophils (%) (Auto) 0.2, Basophils (%) (Auto) 0.7, Activated Partial Thromboplast Time 40H, D-Dimer 13.57H, Sodium Level 130L, Potassium Level 5.3H, Chloride Level 90L, Carbon Dioxide Level 18L, Anion Gap 22H, Blood Urea Nitrogen 155H, Creatinine 11.3H, Estimat Glomerular Filtration Rate , Glucose Level 183H, Calcium Level 9.1, Total Bilirubin 0.6, Aspartate Amino Transf (AST/SGOT) 46H, Alanine Aminotransferase (ALT/SGPT) 32, Alkaline Phosphatase 145H, Troponin I 0.005, Total Protein 6.3L, Albumin 2.4L, Globulin 3.9, Albumin/Globulin Ratio 0.6L 05/12/18 21:25: Arterial Blood pH 7.233*L, Arterial Blood Partial Pressure CO2 42.5, Arterial Blood Partial Pressure O2 101.0H, Arterial Blood HCO3 17.5*L, Arterial Blood Oxygen Saturation 96.1, Arterial Blood Base Excess -9.4*L, Luiz Test Positive 05/13/18 05:00: White Blood Count 17.9#H, Red Blood Count 3.10L, Hemoglobin 9.4L, Hematocrit 28.6L, Mean Corpuscular Volume 92, Mean Corpuscular Hemoglobin 30.3, Mean Corpuscular Hemoglobin Concent 32.8, Red Cell Distribution Width 14.2, Platelet Count 270, Mean Platelet Volume 6.4L, Neutrophils (%) (Auto) , Lymphocytes (%) ( Auto) , Monocytes (%) (Auto) , Eosinophils (%) (Auto) , Basophils (%) (Auto) , Activated Partial Thromboplast Time 86H, Sodium Level 127L, Potassium Level 5.7H , Chloride Level 88L, Carbon Dioxide Level 17L, Anion Gap 22H, Blood Urea Nitrogen 163H, Creatinine 11.4H, Estimat Glomerular Filtration Rate , Glucose Level 224H, Calcium Level 8.7, Total Bilirubin 0.5, Aspartate Amino Transf (AST/ SGOT) 57H, Alanine Aminotransferase (ALT/SGPT) 31, Alkaline Phosphatase 171H, Troponin I 0.000, Total Protein 6.8, Albumin 2.3L, Globulin 4.5, Albumin/ Globulin Ratio 0.5L, Differential Total Cells Counted 100, Neutrophils % (Manual ) 85H, Lymphocytes % (Manual) 2L, Monocytes % (Manual) 2, Eosinophils % (Manual ) 0, Basophils % (Manual) 0, Band Neutrophils 11H, Platelet Estimate Adequate, Platelet Morphology Normal, Hypochromasia 1+, Anisocytosis 1+, Phosphorus Level 9.8H, Magnesium Level 2.2, C-Reactive Protein, Quantitative 38.7H, Pro-B-Type Natriuretic Peptide 23510A, Random Vancomycin Level 23.1 Height (Feet): 5 Height (Inches): 5.00 Weight (Pounds): 168 General Appearance: no apparent distress Cardiovascular: arrhythmia, other - variable rate Respiratory/Chest: decreased breath sounds Abdomen: distended Objective no change Maurilio Arroyo MD May 13, 2018 10:44
--- NOTE | 2018-05-13 11:00 | NUR ---
NURSE NOTES: HR remains elevated in 130. doctor notified. DOctor stated he will stop by soon and check the patient out himself.
--- NOTE | 2018-05-13 11:43 | General Surgery Progress Note ---
General Surgery-Progress Note Subjective Procedure Performed Right femoral temporary hemodialysis catheter insertion Additional Comments hypotensive. mental status change. transferred to ICU. Objective Last 24 Hour Vital Signs Date Time Temp Pulse Resp B/P (MAP) Pulse Ox O2 Delivery O2 Flow Rate FiO2 05/13/18 10:13 138 05/13/18 10:00 138 15 144/64 (90) 100 05/13/18 09:52 Nasal Cannula 3.0 05/13/18 09:30 88 15 105/50 (68) 100 05/13/18 09:00 87 17 130/55 (80) 100 05/13/18 08:30 86 17 135/58 (83) 100 05/13/18 08:00 82 17 130/56 (80) 100 05/13/18 07:30 98.4 80 18 144/58 (86) 100 05/13/18 07:00 77 17 140/55 (83) 100 05/13/18 06:30 74 17 164/56 (92) 100 05/13/18 06:00 70 15 158/82 (107) 100 05/13/18 05:30 66 18 114/31 (58) 94 05/13/18 05:00 64 18 115/33 (60) 94 05/13/18 04:30 65 19 103/31 (55) 97 05/13/18 04:00 98.3 67 19 90/32 (51) 96 05/13/18 03:30 68 19 93/32 (52) 100 05/13/18 03:00 72 20 123/33 (63) 100 05/13/18 02:30 75 20 122/35 (64) 99 05/13/18 02:05 82 20 118/36 (63) 99 05/13/18 01:39 80 98/28 05/13/18 01:30 81 22 96/28 (50) 99 05/13/18 01:00 81 22 120/40 (66) 99 05/13/18 00:30 80 23 122/32 (62) 100 05/13/18 00:00 Nasal Cannula 3.0 Nasal Cannula 3.0 05/13/18 00:00 78 05/13/18 00:00 98.3 84 22 122/31 (61) 100 05/12/18 23:30 82 22 93/26 (48) 100 05/12/18 23:15 78 20 90/32 (51) 100 05/12/18 23:00 78 20 78/22 (40) 100 05/12/18 22:45 79 22 82/25 (44) 100 05/12/18 22:30 76 20 88/24 (45) 100 18 22:15 78 22 78/28 (45) 100 05/12/18 22:00 75 22 79/30 (46) 100 05/12/18 21:45 80 23 91/28 (49) 100 05/12/18 21:30 82 20 94/32 (52) 100 05/12/18 21:15 78 22 99/30 (53) 100 05/12/18 21:00 76 20 111/32 (58) 100 05/12/18 20:45 76 22 104/40 (61) 100 05/12/18 20:30 75 22 108/35 (59) 100 05/12/18 20:15 76 23 106/39 (61) 100 05/12/18 20:00 Venturi Mask 10.0 Venturi Mask 10.0 05/12/18 20:00 78 25 93/28 (49) 99 05/12/18 20:00 75 05/12/18 19:45 98.0 75 22 102/34 (56) 99 05/12/18 19:30 75 20 90/31 (50) 99 05/12/18 19:30 80 20 94/67 (76) 99 05/12/18 19:15 81 20 101/30 (53) 100 05/12/18 19:00 80 20 93/29 (50) 100 05/12/18 18:45 81 20 73/22 (39) 99 18 18:41 80 68/20 05/12/18 18:30 80 20 68/20 (36) 99 05/12/18 18:15 130 20 84/34 (51) 99 18 18:00 130 20 94/67 (76) 99 05/12/18 17:45 124 20 94/67 (76) 99 05/12/18 17:30 103 20 94/57 (69) 98 05/12/18 17:15 102 20 74/28 (43) 97 18 17:15 115/66 18 17:00 104 20 73/20 (37) 99 05/12/18 16:45 105 20 73/36 (48) 100 05/12/18 16:30 118 20 68/34 (45) 100 05/12/18 16:15 97.8 122 20 78/34 (49) 98 05/12/18 16:00 99 20 78/34 (49) 98 05/12/18 16:00 122 05/12/18 15:50 125 05/12/18 15:30 99 20 53/44 (47) 99 05/12/18 15:30 Venturi Mask 4.0 Venturi Mask 4.0 05/12/18 15:15 120 20 83/23 (43) 99 05/12/18 15:00 97.7 121 20 69/32 (44) 100 05/12/18 14:45 121 20 76/40 (52) 99 05/12/18 14:23 84/46 (59) 05/12/18 13:07 83/47 (59) 05/12/18 13:05 92/47 (62) 05/12/18 13:00 74/41 (52) 05/12/18 12:00 97.9 61 20 94/49 (64) 97 05/12/18 12:00 68 I&O Intake and Output 05/12/18 05/13/18 18:59 06:59 Output Total 0 ml 0 ml Balance 0 ml 0 ml Output Urine Total 0 ml 0 ml Wound: other - prior lap matthew wounds c/d/i. Drains: other Cardiovascular: RSR Respiratory: clear Abdomen: soft, flat, distended, tenderness Extremities: no cyanosis Laboratory Tests Test 05/12/18 15:50 05/12/18 18:00 05/12/18 21:25 05/13/18 05:00 Arterial Blood pH 7.236 (7.350-7.450) 7.233 (7.350-7.450) Arterial Blood Partial Pressure CO2 38.8 mmHg (35.0-45.0) 42.5 mmHg (35.0-45.0) Arterial Blood Partial Pressure O2 83.9 mmHg (75.0-100.0) 101.0 mmHg (75.0-100.0) H Arterial Blood HCO3 16.1 mmol/L (22.0-26.0) *L 17.5 mmol/L (22.0-26.0) *L Arterial Blood Oxygen Saturation 93.3 % (95-100) L 96.1 % (95-100) Arterial Blood Base Excess -10.6 (-2-2) *L -9.4 (-2-2) *L Luiz Test Positive Positive White Blood Count 11.7 K/UL (4.8-10.8) H 17.9 K/UL (4.8-10.8) #H Red Blood Count 3.01 M/UL (4.70-6.10) L 3.10 M/UL (4.70-6.10) L Hemoglobin 9.0 G/DL (14.2-18.0) L 9.4 G/DL (14.2-18.0) L Hematocrit 27.6 % (42.0-52.0) L 28.6 % (42.0-52.0) L Mean Corpuscular Volume 92 FL (80-99) 92 FL (80-99) Mean Corpuscular Hemoglobin 29.9 PG (27.0-31.0) 30.3 PG (27.0-31.0) Mean Corpuscular Hemoglobin Concent 32.6 G/DL (32.0-36.0) 32.8 G/DL (32.0-36.0) Red Cell Distribution Width 13.7 % (11.6-14.8) 14.2 % (11.6-14.8) Platelet Count 238 K/UL (150-450) 270 K/UL (150-450) Mean Platelet Volume 5.4 FL (6.5-10.1) L 6.4 FL (6.5-10.1) L Neutrophils (%) (Auto) 91.4 % (45.0-75.0) H % (45.0-75.0) Lymphocytes (%) (Auto) 1.7 % (20.0-45.0) L % (20.0-45.0) Monocytes (%) (Auto) 6.1 % (1.0-10.0) % (1.0-10.0) Eosinophils (%) (Auto) 0.2 % (0.0-3.0) % (0.0-3.0) Basophils (%) (Auto) 0.7 % (0.0-2.0) % (0.0-2.0) Activated Partial Thromboplast Time 40 SEC (23-33) H 86 SEC (23-33) H D-Dimer 13.57 mg/L FEU (0.00-0.49) H Sodium Level 130 MMOL/L (136-145) L 127 MMOL/L (136-145) L Potassium Level 5.3 MMOL/L (3.5-5.1) H 5.7 MMOL/L (3.5-5.1) H Chloride Level 90 MMOL/L (98-107) L 88 MMOL/L (98-107) L Carbon Dioxide Level 18 MMOL/L (21-32) L 17 MMOL/L (21-32) L Anion Gap 22 mmol/L (5-15) H 22 mmol/L (5-15) H Blood Urea Nitrogen 155 mg/dL (7-18) H 163 mg/dL (7-18) H Creatinine 11.3 MG/DL (0.55-1.30) H 11.4 MG/DL (0.55-1.30) H Estimat Glomerular Filtration Rate mL/min (>60) mL/min (>60) Glucose Level 183 MG/DL (74-106) H 224 MG/DL (74-106) H Calcium Level 9.1 MG/DL (8.5-10.1) 8.7 MG/DL (8.5-10.1) Total Bilirubin 0.6 MG/DL (0.2-1.0) 0.5 MG/DL (0.2-1.0) Aspartate Amino Transf (AST/SGOT) 46 U/L (15-37) H 57 U/L (15-37) H Alanine Aminotransferase (ALT/SGPT) 32 U/L (12-78) 31 U/L (12-78) Alkaline Phosphatase 145 U/L (46-116) H 171 U/L (46-116) H Troponin I 0.005 ng/mL (0.000-0.056) 0.000 ng/mL (0.000-0.056) Total Protein 6.3 G/DL (6.4-8.2) L 6.8 G/DL (6.4-8.2) Albumin 2.4 G/DL (3.4-5.0) L 2.3 G/DL (3.4-5.0) L Globulin 3.9 g/dL 4.5 g/dL Albumin/Globulin Ratio 0.6 (1.0-2.7) L 0.5 (1.0-2.7) L Differential Total Cells Counted 100 Neutrophils % (Manual) 85 % (45-75) H Lymphocytes % (Manual) 2 % (20-45) L Monocytes % (Manual) 2 % (1-10) Eosinophils % (Manual) 0 % (0-3) Basophils % (Manual) 0 % (0-2) Band Neutrophils 11 % (0-8) H Platelet Estimate Adequate Platelet Morphology Normal Hypochromasia 1+ Anisocytosis 1+ Phosphorus Level 9.8 MG/DL (2.5-4.9) H Magnesium Level 2.2 MG/DL (1.8-2.4) C-Reactive Protein, Quantitative 38.4 mg/dL (0.00-0.90) H Pro-B-Type Natriuretic Peptide 03117 pg/mL (0-125) H Random Vancomycin Level 23.1 ug/mL Plan Problems: (1) Sacral decubitus ulcer, stage III Assessment & Plan: Pt presents with partial thickness wound sacral cleft (L) 2cm x (W)0.6cm.edges flat and adherent to base of wound .Non-blanching erythema periwound.Non-blanchable erythema R heel fluctuant with delineated borders. L heel soft but easily blanches. all wounds present upon admission and will be cared for during hospital stay Tx.Plan: Cleanse sacral wound with Saline.Apply Moisture Barrier .Cover with Optifoam drsg Daily and prn. Cavilon Skin Barrier to R heel .Cover with Optifoam every 7 days and prn. Support surface mattress. Off-load heels with PIllow. Reposition at least every 2hours and prn. (2) Nausea & vomiting Assessment & Plan: abd with prior lap matthew wounds. wounds c/d/i, with skin glue. no signs of infection. surgical wounds seem fairly recent. KUB with lots of clips in the gallbladder fossa CT C/A/P HD as per renal. will follow with recs thank you Tomas Chandler May 13, 2018 11:43
[2018-05-13] MEDS ORDERED: Cefepime HCl 500 MG in D5W 55 ML IVPB SCH (12:00)
--- NOTE | 2018-05-13 12:00 | NUR ---
NURSE NOTES: Contrast administered patient scheduled for CT at 2 PM. Turned and repositioned. No new orders.
--- NOTE | 2018-05-13 12:01 | Diagnostic Imaging Report ---
Indication: Nasogastric tube placement Technique: Supine view of the abdomen Comparison: none Findings: There is a nasogastric tube in place, tip coiled in the gastric fundus. There is a right groin temporary dialysis catheter. Numerous surgical clips are seen in the right upper quadrant. Considerable gas is seen within the stomach. Prominent but not frankly dilated small bowel loops are seen in the left upper quadrant Impression: Satisfactory nasogastric intubation Other findings as noted
--- NOTE | 2018-05-13 13:54 | NUR ---
CASE MANAGEMENT: REVIEW SI: ESRD ON HD . ACS RIGHT FEMORAL TEMPORARY HEMODIALYSIS CATHETER INSERTION 05/13 T 98.8 HR 138 RR 17 BP 155/87 SAT 99% NC/3L WBC 17.9 H/H 9.4/28.6 NA 130 K 5.3 BUN 155 CR 11.3 IS: CARDIZEM IV Q24HR CEFEPIME IV Q24HR SOLU CORTEF IV Q8HR DOPAMINE IV Q24HR ICU STATUS DCP: PATIENT IS FROM HOME
--- NOTE | 2018-05-13 14:00 | NUR ---
NURSE NOTES: CT pushed back to 3 PM md aware. No new orders. Will continue plan of care.
--- NOTE | 2018-05-13 14:17 | Cardiology Report ---
APPROVED REPORT EKG Measurement Heart [id number] Atrial fibrillation with rapid ventricular response Abnormal ECG
--- NOTE | 2018-05-13 14:32 | NUR ---
Social Service Note SW familiar with patient from a previous admission. SW completed an APS report at that time, Jaqui [phone] was the assigned APS SW. Patient doesn't have family in the [place] only [place] (brothers). SW spoke with patient's neighbor/landlord Chris Granado [phone]. CM behavioral health assistant provided Pashto translation. Patient continues to live independently at home. Mr. Granado is concerned that patient has frequent hospitalizations and has had falls at home. SW explained that the hospital can not force patient into an assisted living however patient will be evaluated if skilled care will be required after discharged. [facility] [phone] was arranged on previous admission. [facility] office is closed and will reopen on Sunday. SW to follow up with home health. Patient doesn't have a surrogate decision maker. Mr. Granado will do provide consents. If needed Mr. Granado has the ability to enter patient's apartment and attempt to locate family phone numbers in [facility]. Will continue to monitor and assist.
--- NOTE | 2018-05-13 15:33 | General Progress Note ---
Assessment/Plan Assessment/Plan COVERING FOR DR. IRVIN ASSESSMENT AND RECOMMENDATIONS # Gram negative sepsis is on abx as per ID --> on broad spectrum abx --> on steriods as well per pulm/cc --> on vanc/cefepime as per id # Lower extremity edema with an elevated BNP in a patient with renal failure on hemodialysis. --> Felice on hemodialysis per Dr. Arroyo. --> currently has improved # Chest pain, rule out acute coronary syndrome. --> Cardiology is following, appreciate recs, echo was reviewed --> Currently denies any chest pain, completely rule out ACS --> EKG showed old inferior and anterior wall UT, but no ischemia. --> ECHO with normal LV function --> on heparin gtt 05/13 for potential pe, cta is pending # End-stage renal disease, on hemodialysis and also hyponatremia. --> Nephro is following, appreciate recs. --> On intermittent HD # Anemia of chronic disease due to underlying chronic medical issues, multifactorial. --> Current Hgb >11, no w/u required at this time. --> Monitor for stability Subjective ROS Limited/Unobtainable: Yes Allergies: Coded Allergies: No Known Allergies (Unverified , 11/12/12) Subjective Pt resting in bed. No acute events. H/H stable. On abx. VS stable. 05/13: on pressors, on hep gtt, on steriods, abx, got hd, felice catheter in place Objective Last 24 Hour Vital Signs Date Time Temp Pulse Resp B/P (MAP) Pulse Ox O2 Delivery O2 Flow Rate FiO2 05/13/18 14:30 110 17 118/65 (82) 99 05/13/18 14:00 100 17 111/60 (77) 99 05/13/18 13:37 138 148/70 05/13/18 13:30 112 17 133/68 (89) 99 05/13/18 13:00 138 17 120/65 (83) 99 05/13/18 12:30 98.8 133 17 122/76 (91) 99 05/13/18 12:00 128 17 132/80 (97) 99 05/13/18 11:30 132 17 155/87 (109) 99 05/13/18 11:00 137 17 130/62 (84) 100 05/13/18 10:30 130 17 140/60 (86) 100 05/13/18 10:13 138 05/13/18 10:00 138 15 144/64 (90) 100 05/13/18 09:52 Nasal Cannula 3.0 05/13/18 09:30 88 15 105/50 (68) 100 05/13/18 09:00 87 17 130/55 (80) 100 05/13/18 08:30 86 17 135/58 (83) 100 05/13/18 08:00 82 17 130/56 (80) 100 05/13/18 07:30 98.4 80 18 144/58 (86) 100 05/13/18 07:00 77 17 140/55 (83) 100 05/13/18 06:30 74 17 164/56 (92) 100 05/13/18 06:00 70 15 158/82 (107) 100 05/13/18 05:30 66 18 114/31 (58) 94 05/13/18 05:00 64 18 115/33 (60) 94 05/13/18 04:30 65 19 103/31 (55) 97 05/13/18 04:00 98.3 67 19 90/32 (51) 96 05/13/18 03:30 68 19 93/32 (52) 100 05/13/18 03:00 72 20 123/33 (63) 100 05/13/18 02:30 75 20 122/35 (64) 99 05/13/18 02:05 82 20 118/36 (63) 99 05/13/18 01:39 80 98/28 05/13/18 01:30 81 22 96/28 (50) 99 05/13/18 01:00 81 22 120/40 (66) 99 05/13/18 00:30 80 23 122/32 (62) 100 05/13/18 00:00 Nasal Cannula 3.0 Nasal Cannula 3.0 05/13/18 00:00 78 05/13/18 00:00 98.3 84 22 122/31 (61) 100 05/12/18 23:30 82 22 93/26 (48) 100 05/12/18 23:15 78 20 90/32 (51) 100 05/12/18 23:00 78 20 78/22 (40) 100 05/12/18 22:45 79 22 82/25 (44) 100 05/12/18 22:30 76 20 88/24 (45) 100 05/12/18 22:15 78 22 78/28 (45) 100 05/12/18 22:00 75 22 79/30 (46) 100 05/12/18 21:45 80 23 91/28 (49) 100 05/12/18 21:30 82 20 94/32 (52) 100 05/12/18 21:15 78 22 99/30 (53) 100 05/12/18 21:00 76 20 111/32 (58) 100 05/12/18 20:45 76 22 104/40 (61) 100 05/12/18 20:30 75 22 108/35 (59) 100 05/12/18 20:15 76 23 106/39 (61) 100 05/12/18 20:00 Venturi Mask 10.0 Venturi Mask 10.0 05/12/18 20:00 78 25 93/28 (49) 99 05/12/18 20:00 75 05/12/18 19:45 98.0 75 22 102/34 (56) 99 05/12/18 19:30 75 20 90/31 (50) 99 05/12/18 19:30 80 20 94/67 (76) 99 05/12/18 19:15 81 20 101/30 (53) 100 05/12/18 19:00 80 20 93/29 (50) 100 05/12/18 18:45 81 20 73/22 (39) 99 18 18:41 80 68/20 05/12/18 18:30 80 20 68/20 (36) 99 18 18:15 130 20 84/34 (51) 99 05/12/18 18:00 130 20 94/67 (76) 99 18 17:45 124 20 94/67 (76) 99 18 17:30 103 20 94/57 (69) 98 18 17:15 102 20 74/28 (43) 97 18 17:15 115/66 18 17:00 104 20 73/20 (37) 99 18 16:45 105 20 73/36 (48) 100 05/12/18 16:30 118 20 68/34 (45) 100 05/12/18 16:15 97.8 122 20 78/34 (49) 98 05/12/18 16:00 99 20 78/34 (49) 98 05/12/18 16:00 122 05/12/18 15:50 125 Intake and Output 05/12/18 05/13/18 18:59 06:59 Output Total 0 ml 0 ml Balance 0 ml 0 ml Output Urine Total 0 ml 0 ml Laboratory Tests 05/12/18 15:50: Arterial Blood pH 7.236*L, Arterial Blood Partial Pressure CO2 38.8, Arterial Blood Partial Pressure O2 83.9, Arterial Blood HCO3 16.1*L, Arterial Blood Oxygen Saturation 93.3L, Arterial Blood Base Excess -10.6*L, Luiz Test Positive 05/12/18 18:00: White Blood Count 11.7H, Red Blood Count 3.01L, Hemoglobin 9.0L, Hematocrit 27.6L, Mean Corpuscular Volume 92, Mean Corpuscular Hemoglobin 29.9, Mean Corpuscular Hemoglobin Concent 32.6, Red Cell Distribution Width 13.7, Platelet Count 238, Mean Platelet Volume 5.4L, Neutrophils (%) (Auto) 91.4H, Lymphocytes (%) (Auto) 1.7L, Monocytes (%) (Auto) 6.1, Eosinophils (%) (Auto) 0.2, Basophils (%) (Auto) 0.7, Activated Partial Thromboplast Time 40H, D-Dimer 13.57H, Sodium Level 130L, Potassium Level 5.3H, Chloride Level 90L, Carbon Dioxide Level 18L, Anion Gap 22H, Blood Urea Nitrogen 155H, Creatinine 11.3H, Estimat Glomerular Filtration Rate , Glucose Level 183H, Calcium Level 9.1, Total Bilirubin 0.6, Aspartate Amino Transf (AST/SGOT) 46H, Alanine Aminotransferase (ALT/SGPT) 32, Alkaline Phosphatase 145H, Troponin I 0.005, Total Protein 6.3L, Albumin 2.4L, Globulin 3.9, Albumin/Globulin Ratio 0.6L 05/12/18 21:25: Arterial Blood pH 7.233*L, Arterial Blood Partial Pressure CO2 42.5, Arterial Blood Partial Pressure O2 101.0H, Arterial Blood HCO3 17.5*L, Arterial Blood Oxygen Saturation 96.1, Arterial Blood Base Excess -9.4*L, Luiz Test Positive 05/13/18 05:00: White Blood Count 17.9#H, Red Blood Count 3.10L, Hemoglobin 9.4L, Hematocrit 28.6L, Mean Corpuscular Volume 92, Mean Corpuscular Hemoglobin 30.3, Mean Corpuscular Hemoglobin Concent 32.8, Red Cell Distribution Width 14.2, Platelet Count 270, Mean Platelet Volume 6.4L, Neutrophils (%) (Auto) , Lymphocytes (%) ( Auto) , Monocytes (%) (Auto) , Eosinophils (%) (Auto) , Basophils (%) (Auto) , Activated Partial Thromboplast Time 86H, Sodium Level 127L, Potassium Level 5.7H , Chloride Level 88L, Carbon Dioxide Level 17L, Anion Gap 22H, Blood Urea Nitrogen 163H, Creatinine 11.4H, Estimat Glomerular Filtration Rate , Glucose Level 224H, Calcium Level 8.7, Total Bilirubin 0.5, Aspartate Amino Transf (AST/ SGOT) 57H, Alanine Aminotransferase (ALT/SGPT) 31, Alkaline Phosphatase 171H, Troponin I 0.000, Total Protein 6.8, Albumin 2.3L, Globulin 4.5, Albumin/ Globulin Ratio 0.5L, Differential Total Cells Counted 100, Neutrophils % (Manual ) 85H, Lymphocytes % (Manual) 2L, Monocytes % (Manual) 2, Eosinophils % (Manual ) 0, Basophils % (Manual) 0, Band Neutrophils 11H, Platelet Estimate Adequate, Platelet Morphology Normal, Hypochromasia 1+, Anisocytosis 1+, Phosphorus Level 9.8H, Magnesium Level 2.2, C-Reactive Protein, Quantitative 38.4H, Pro-B-Type Natriuretic Peptide [id number], Random Vancomycin Level 23.1 Height (Feet): 5 Height (Inches): 5.00 Weight (Pounds): 168 Objective PHYSICAL EXAMINATION: VITAL SIGNS: Have been reviewed HEENT: PERRLA. NECK: Supple. No lymphadenopathy. CHEST: Clear to auscultation. CARDIOVASCULAR: Tachycardic. GASTROINTESTINAL: Distended. Positive bowel sounds. Nontender. No organomegaly. EXTREMITY: A 1+ edema. Reflexes are equal on both sides. Reinaldo Leon MD May 13, 2018 15:33
--- NOTE | 2018-05-13 16:00 | NUR ---
NURSE NOTES: Patient turned and repositioned. No new orders at this time. Will continue plan of care.
--- NOTE | 2018-05-13 16:00 | Diagnostic Imaging Report ---
Indication: Shortness of breath Technique: One view of the chest Comparison: Of 09/06/2017 Findings: There is suggestion of new or increased mild interstitial congestive change. There is blunting of left costophrenic sulcus. The heart is enlarged. Inspiration is suboptimal Impression: New or increased mild interstitial congestive change Left costophrenic angle blunting may reflect small amount of pleural fluid versus lateral parenchymal consolidation and/or atelectasis
--- NOTE | 2018-05-13 16:10 | Infectious Diseases Prog Note ---
"Assessment/Plan Assessment/Plan antibiotics : vancomycin iv, cefepime A 1. serratia | enterobacter sepsis 2. gram positive UTI 3. diabetes mellitus 4. hypertension 5. renal failure on dialysis 6. leucocytosis P 1. continue vancomycin iv, cefepime 2. will follow up cultures Subjective ROS Limited/Unobtainable: Yes Allergies: Coded Allergies: No Known Allergies (Unverified , 11/12/12) Objective Vital Signs Last 24 Hour Vital Signs Date Time Temp Pulse Resp B/P (MAP) Pulse Ox O2 Delivery O2 Flow Rate FiO2 05/13/18 14:30 110 17 118/65 (82) 99 05/13/18 14:00 100 17 111/60 (77) 99 05/13/18 13:37 138 148/70 05/13/18 13:30 112 17 133/68 (89) 99 05/13/18 13:00 138 17 120/65 (83) 99 05/13/18 12:30 98.8 133 17 122/76 (91) 99 05/13/18 12:00 128 17 132/80 (97) 99 05/13/18 11:30 132 17 155/87 (109) 99 05/13/18 11:00 137 17 130/62 (84) 100 05/13/18 10:30 130 17 140/60 (86) 100 05/13/18 10:13 138 05/13/18 10:00 138 15 144/64 (90) 100 05/13/18 09:52 Nasal Cannula 3.0 05/13/18 09:30 88 15 105/50 (68) 100 05/13/18 09:00 87 17 130/55 (80) 100 05/13/18 08:30 86 17 135/58 (83) 100 05/13/18 08:00 82 17 130/56 (80) 100 05/13/18 07:30 98.4 80 18 144/58 (86) 100 05/13/18 07:00 77 17 140/55 (83) 100 05/13/18 06:30 74 17 164/56 (92) 100 05/13/18 06:00 70 15 158/82 (107) 100 05/13/18 05:30 66 18 114/31 (58) 94 05/13/18 05:00 64 18 115/33 (60) 94 05/13/18 04:30 65 19 103/31 (55) 97 05/13/18 04:00 98.3 67 19 90/32 (51) 96 05/13/18 03:30 68 19 93/32 (52) 100 05/13/18 03:00 72 20 123/33 (63) 100 05/13/18 02:30 75 20 122/35 (64) 99 05/13/18 02:05 82 20 118/36 (63) 99 05/13/18 01:39 80 98/28 05/13/18 01:30 81 22 96/28 (50) 99 05/13/18 01:00 81 22 120/40 (66) 99 05/13/18 00:30 80 23 122/32 (62) 100 05/13/18 00:00 Nasal Cannula 3.0 Nasal Cannula 3.0 05/13/18 00:00 78 05/13/18 00:00 98.3 84 22 122/31 (61) 100 05/12/18 23:30 82 22 93/26 (48) 100 05/12/18 23:15 78 20 90/32 (51) 100 05/12/18 23:00 78 20 78/22 (40) 100 05/12/18 22:45 79 22 82/25 (44) 100 05/12/18 22:30 76 20 88/24 (45) 100 05/12/18 22:15 78 22 78/28 (45) 100 05/12/18 22:00 75 22 79/30 (46) 100 05/12/18 21:45 80 23 91/28 (49) 100 05/12/18 21:30 82 20 94/32 (52) 100 05/12/18 21:15 78 22 99/30 (53) 100 05/12/18 21:00 76 20 111/32 (58) 100 05/12/18 20:45 76 22 104/40 (61) 100 05/12/18 20:30 75 22 108/35 (59) 100 05/12/18 20:15 76 23 106/39 (61) 100 05/12/18 20:00 Venturi Mask 10.0 Venturi Mask 10.0 05/12/18 20:00 78 25 93/28 (49) 99 05/12/18 20:00 75 12/23/18 19:45 98.0 75 22 102/34 (56) 99 05/12/18 19:30 75 20 90/31 (50) 99 05/12/18 19:30 80 20 94/67 (76) 99 05/12/18 19:15 81 20 101/30 (53) 100 05/12/18 19:00 80 20 93/29 (50) 100 05/12/18 18:45 81 20 73/22 (39) 99 05/12/18 18:41 80 68/20 05/12/18 18:30 80 20 68/20 (36) 99 05/12/18 18:15 130 20 84/34 (51) 99 05/12/18 18:00 130 20 94/67 (76) 99 05/12/18 17:45 124 20 94/67 (76) 99 05/12/18 17:30 103 20 94/57 (69) 98 05/12/18 17:15 102 20 74/28 (43) 97 05/12/18 17:15 115/66 05/12/18 17:00 104 20 73/20 (37) 99 05/12/18 16:45 105 20 73/36 (48) 100 05/12/18 16:30 118 20 68/34 (45) 100 05/12/18 16:15 97.8 122 20 78/34 (49) 98 Height (Feet): 5 Height (Inches): 5.00 Weight (Pounds): 168 Respiratory/Chest: lungs clear Cardiovascular: normal rate, regular rhythm, no gallop/murmur Abdomen: soft, non tender Extremities: no edema, other - right groin catheter Laboratory Tests Test 05/12/18 18:00 05/12/18 21:25 05/13/18 05:00 White Blood Count 11.7 K/UL (4.8-10.8) H 17.9 K/UL (4.8-10.8) #H Red Blood Count 3.01 M/UL (4.70-6.10) L 3.10 M/UL (4.70-6.10) L Hemoglobin 9.0 G/DL (14.2-18.0) L 9.4 G/DL (14.2-18.0) L Hematocrit 27.6 % (42.0-52.0) L 28.6 % (42.0-52.0) L Mean Corpuscular Volume 92 FL (80-99) 92 FL (80-99) Mean Corpuscular Hemoglobin 29.9 PG (27.0-31.0) 30.3 PG (27.0-31.0) Mean Corpuscular Hemoglobin Concent 32.6 G/DL (32.0-36.0) 32.8 G/DL (32.0-36.0) Red Cell Distribution Width 13.7 % (11.6-14.8) 14.2 % (11.6-14.8) Platelet Count 238 K/UL (150-450) 270 K/UL (150-450) Mean Platelet Volume 5.4 FL (6.5-10.1) L 6.4 FL (6.5-10.1) L Neutrophils (%) (Auto) 91.4 % (45.0-75.0) H % (45.0-75.0) Lymphocytes (%) (Auto) 1.7 % (20.0-45.0) L % (20.0-45.0) Monocytes (%) (Auto) 6.1 % (1.0-10.0) % (1.0-10.0) Eosinophils (%) (Auto) 0.2 % (0.0-3.0) % (0.0-3.0) Basophils (%) (Auto) 0.7 % (0.0-2.0) % (0.0-2.0) Activated Partial Thromboplast Time 40 SEC (23-33) H 86 SEC (23-33) H D-Dimer 13.57 mg/L FEU (0.00-0.49) H Sodium Level 130 MMOL/L (136-145) L 127 MMOL/L (136-145) L Potassium Level 5.3 MMOL/L (3.5-5.1) H 5.7 MMOL/L (3.5-5.1) H Chloride Level 90 MMOL/L (98-107) L 88 MMOL/L (98-107) L Carbon Dioxide Level 18 MMOL/L (21-32) L 17 MMOL/L (21-32) L Anion Gap 22 mmol/L (5-15) H 22 mmol/L (5-15) H Blood Urea Nitrogen 155 mg/dL (7-18) H 163 mg/dL (7-18) H Creatinine 11.3 MG/DL (0.55-1.30) H 11.4 MG/DL (0.55-1.30) H Estimat Glomerular Filtration Rate mL/min (>60) mL/min (>60) Glucose Level 183 MG/DL (74-106) H 224 MG/DL (74-106) H Calcium Level 9.1 MG/DL (8.5-10.1) 8.7 MG/DL (8.5-10.1) Total Bilirubin 0.6 MG/DL (0.2-1.0) 0.5 MG/DL (0.2-1.0) Aspartate Amino Transf (AST/SGOT) 46 U/L (15-37) H 57 U/L (15-37) H Alanine Aminotransferase (ALT/SGPT) 32 U/L (12-78) 31 U/L (12-78) Alkaline Phosphatase 145 U/L (46-116) H 171 U/L (46-116) H Troponin I 0.005 ng/mL (0.000-0.056) 0.000 ng/mL (0.000-0.056) Total Protein 6.3 G/DL (6.4-8.2) L 6.8 G/DL (6.4-8.2) Albumin 2.4 G/DL (3.4-5.0) L 2.3 G/DL (3.4-5.0) L Globulin 3.9 g/dL 4.5 g/dL Albumin/Globulin Ratio 0.6 (1.0-2.7) L 0.5 (1.0-2.7) L Arterial Blood pH 7.233 (7.350-7.450) Arterial Blood Partial Pressure CO2 42.5 mmHg (35.0-45.0) Arterial Blood Partial Pressure O2 101.0 mmHg (75.0-100.0) H Arterial Blood HCO3 17.5 mmol/L (22.0-26.0) *L Arterial Blood Oxygen Saturation 96.1 % (95-100) Arterial Blood Base Excess -9.4 (-2-2) *L Luiz Test Positive Differential Total Cells Counted 100 Neutrophils % (Manual) 85 % (45-75) H Lymphocytes % (Manual) 2 % (20-45) L Monocytes % (Manual) 2 % (1-10) Eosinophils % (Manual) 0 % (0-3) Basophils % (Manual) 0 % (0-2) Band Neutrophils 11 % (0-8) H Platelet Estimate Adequate Platelet Morphology Normal Hypochromasia 1+ Anisocytosis 1+ Phosphorus Level 9.8 MG/DL (2.5-4.9) H Magnesium Level 2.2 MG/DL (1.8-2.4) C-Reactive Protein, Quantitative 38.4 mg/dL (0.00-0.90) H Pro-B-Type Natriuretic Peptide 04472 pg/mL (0-125) H Random Vancomycin Level 23.1 ug/mL Current Medications Medications (Trade) Dose Ordered Sig/Min Route PRN Reason Start Time Stop Time Status Last Admin Dose Admin Acetaminophen (Tylenol) 650 mg Q4H PRN ORAL Mild Pain/Temp > 100.5 05/12/18 15:30 06/09/18 15:29 Allopurinol (Allopurinol) 300 mg DAILY ORAL 05/13/18 09:00 06/12/18 08:59 Barium Sulfate (Readi-Cat 2) 450 ml ONCE ORAL 05/13/18 09:00 05/15/18 08:59 05/13/18 09:00 Cefepime HCl 500 mg/Dextrose 55 ml @ 110 mls/hr Q24H IVPB 05/13/18 12:00 05/19/18 11:59 05/13/18 12:00 Chlorhexidine Gluconate (Tatyana-Hex 2%) 1 applic DAILY@1999 TOPIC 05/12/18 20:00 06/11/18 19:59 05/12/18 22:50 Diltiazem HCl 125 mg/Dextrose 125 ml @ 0 mls/hr Q24H IV 05/13/18 13:30 05/14/18 13:29 05/13/18 13:37 Docusate Sodium (Colace) 100 mg TID ORAL 05/12/18 18:00 06/09/18 17:59 05/13/18 13:00 Dopamine HCl/ Dextrose 250 ml @ 0 mls/hr Q24H IV 05/12/18 17:15 06/11/18 17:14 Heparin Sodium/ Dextrose 500 ml @ 27.525 mls/ hr ADJUST PER PROTOCOL IV 05/12/18 21:30 06/11/18 21:29 05/12/18 23:01 Heparin Sodium/ Sodium Chloride (Heparin 2000 units/Ns 1000ml premix) 2,000 unit ONCE PRN INJ picc line placement 05/12/18 18:15 05/14/18 18:14 Hydrocortisone (Solu-CORTEF) 100 mg EVERY 8 HOURS IV 05/12/18 22:00 06/11/18 21:59 05/13/18 13:47 Iopamidol (Isovue-300 100ml) 100 ml ONCE INJ 05/13/18 09:00 05/15/18 08:59 Iopamidol (Isovue-370 150ml) 150 ml NOW PRN INJ Radiology Procedure 05/12/18 21:30 05/14/18 21:20 Lidocaine HCl (Xylocaine 1% 30ml) 30 ml ONCE PRN INJ picc line placement 05/12/18 18:15 05/14/18 18:14 Metoclopramide HCl (Reglan) 10 mg Q6H PRN IVP Nausea & Vomiting 05/12/18 15:30 06/10/18 15:29 Pantoprazole (Protonix) 40 mg EVERY 12 HOURS IVP 05/12/18 21:00 06/10/18 20:59 05/12/18 21:00 Phenylephrine HCl 50 mg/Dextrose 250 ml @ 0 mls/hr Q24H IV 05/12/18 17:45 06/11/18 17:44 05/13/18 01:39 Sevelamer Carbonate (Renvela) 1,600 mg THREE TIMES A DAY ORAL 05/12/18 18:00 06/09/18 12:59 05/13/18 13:00 Vancomycin HCl (Vanco rx to dose) 1 ea DAILY PRN MISC Per rx protocol 05/13/18 09:00 06/10/18 10:29 Martha Dupree MD May 13, 2018 16:10"
[2018-05-13] MEDS ORDERED: Metoprolol Succinate XL 100mg tab ORAL SCH (16:18)
[2018-05-13] MEDS ORDERED: Morphine Sulfate 2mg/ml Inj IVP PRN ×3 (16:30→19:15)
[2018-05-13] MEDS: Metoprolol 5mg/5ml Inj IVP SCH (16:39)
--- NOTE | 2018-05-13 16:54 | Diagnostic Imaging Report ---
Clinical Indication: Abdominal pain, history of sacral decubitus ulcer Technique: Patient ingested oral contrast, probably upper nasogastric tube IV administration nonionic contrast. Venous phase obtained through the abdomen and pelvis. Multiplanar reconstructions were generated. Total dose length product 2246.22 mGycm. CTDIvol(s) 27.39,17.93,18.6 mGy. Dose reduction achieved using automated exposure control Comparison: none Findings: A small amount of free intraperitoneal gas is present. This is seen over the dome of the right hepatic lobe, anterior to the stomach, and gas bubbles are seen within the anterior central mesentery deep to the umbilicus adjacent to several small bowel loops. There is also a small amount of free intraperitoneal fluid. There are small colonic diverticula. No evidence of acute diverticulitis. The appendix is normal. There is a nasogastric tube in place. The distal esophagus is unremarkable. The stomach is otherwise unremarkable. There is a slightly distended gas-filled small bowel loop in the left upper quadrant. No small bowel distention otherwise.. There is a right inguinal indirect hernia which contains fat and a small amount of ascites fluid. No bowel. The liver demonstrates equivocal slight surface irregularity at the inferior right hepatic lobe. Numerous surgical clips are seen adjacent to the gallbladder fossa. Amorphous material slightly higher in attenuation than fluid is seen also in the gallbladder fossa. Normal gallbladder is not visualized. No biliary ductal dilatation. The pancreas and spleen are unremarkable. The adrenals are somewhat bulky bilaterally. A tiny lipoma is seen in the left adrenal. Kidneys are somewhat atrophic, demonstrate multiple cysts bilaterally, as well as multiple subcentimeter low-attenuation lesions which are too small to characterize. No hydronephrosis, renal or ureteral calculi demonstrated. No pelvic mass or adenopathy. The prostate is enlarged. There is a right groin temporary dialysis catheter. The lung bases demonstrate fairly extensive basilar atelectatic changes. The heart is enlarged. The bones demonstrate degenerative spondylosis changes Impression: Free intraperitoneal gas and fluid. Per discussion with Dr. Chandler, patient has clinical evidence of recent cholecystectomy, so this finding is presumably related to such Surgical clips in the gallbladder fossa, presumably related to the above. Dense material in the gallbladder fossa probably represents a small postoperative hematoma No definite acute process otherwise Focal left upper quadrant small bowel distention, may represent minimal ileus related to the above surgery Considerable bilateral basilar pulmonary parenchymal atelectasis Colonic diverticulosis. No evidence of diverticulitis Indirect right inguinal hernia containing fat and a small amount of ascites fluid Nasogastric tube in good position Equivocal slight surface irregularity of the inferior right hepatic lobe, could indicate early cirrhotic changes. Correlate with clinical history Somewhat atrophic kidneys, in keeping with known history of chronic renal disease. Multiple bilateral renal cysts, as well as multiple bilateral subcentimeter low-attenuation lesions which are too small to characterize, most likely benign simple cysts. No further follow-up necessary Right groin temporary dialysis catheter Cardiomegaly Other findings as noted, including degenerative spondylosis, tiny left adrenal lipoma The CT scanner at [facility] is accredited by the [employer] and the scans are performed using protocols designed to limit radiation exposure to as low as reasonably achievable to attain images of sufficient resolution adequate for diagnostic evaluation.
--- NOTE | 2018-05-13 17:03 | Diagnostic Imaging Report ---
ndication: Reason For Exam: PE Technique: IV administration nonionic contrast. Spiral acquisitions obtained from the lung bases to the lung apices. Multiplanar and 3-D reconstructions were generated. Total dose length product 2246.22 mGycm. CTDIvol(s) 27.39,17.93,18.6 mGy. Dose reduction achieved using automated exposure control Comparison: none Findings: Exam is somewhat limited due to respiratory motion artifact. No gross intraluminal filling defects or other findings to suggest acute pulmonary embolus demonstrated. No evidence of thoracic aortic aneurysm or dissection. Normal classic branching anatomy of the great neck vessels which are normal in caliber. No evidence of pulmonary arterial dilatation or isolated right ventricular dilatation. There is generalized four-chamber cardiomegaly. The lungs demonstrate considerable atelectatic changes in the posterior inferior lower lobes bilaterally. Reticular opacities are seen in the inferior left upper lobe. No definite effusions. No definite masses or nodules. The heart is enlarged, as mentioned previously. No pericardial effusion. No mediastinal or hilar mass or adenopathy. There are coronary artery calcifications. There is a nasogastric tube in place. The esophagus is otherwise unremarkable. The included portions of the thyroid are unremarkable. No axillary or chest wall mass or adenopathy. Bones demonstrate degenerative spondylosis changes, are otherwise unremarkable Please refer to separate abdomen pelvis CT performed at the same time for included upper abdominal findings Impression: Somewhat limited exam due to respiratory motion artifact. No definite findings to suggest acute pulmonary embolus or other acute thoracic vascular pathology Marked cardiomegaly Fairly extensive bilateral parenchymal atelectatic changes. Inferior left upper lobe reticular opacities could reflect early infiltrate. Nasogastric tube Degenerative spondylosis The CT scanner at [facility] is accredited by the [employer] and the scans are performed using protocols designed to limit radiation exposure to as low as reasonably achievable to attain images of sufficient resolution adequate for diagnostic evaluation.
[2018-05-13] MEDS: DOPamine 400mg/250ml 250 ML IV SCH (17:15)
--- NOTE | 2018-05-13 18:00 | NUR ---
NURSE NOTES: Patient in pain. Uncomfortable. REpositioned. Pain meds given. WIll continue to monitor patient.
--- NOTE | 2018-05-13 18:37 | General Progress Note ---
Assessment/Plan Problem List: (1) Major depression ICD Codes: F32.9 - Major depressive disorder, single episode, unspecified SNOMED: 280737757 (2) anxiety disorder (3) encephalopathy due to metabolic factor Status: deteriorating Assessment/Plan zoloft 100mg q daily was dced was dced (trazodone 100mg qh) provided ro/st[ the pt lacks capacity to make decisions or sign any consents the pt may benefit from 11/12 md do resident urgent care or sniff placement d/w primary MD Subjective Allergies: Coded Allergies: No Known Allergies (Unverified , 11/12/12) Subjective the pt is confused and is unable to provide information. the pt has waxing and waning of consciousness Objective Last 24 Hour Vital Signs Date Time Temp Pulse Resp B/P (MAP) Pulse Ox O2 Delivery O2 Flow Rate FiO2 05/13/18 17:30 108 16 140/66 (90) 99 05/13/18 17:15 132/70 05/13/18 17:00 110 16 138/68 (91) 99 05/13/18 16:39 138 144/78 05/13/18 16:30 98.7 98 17 144/68 (93) 99 05/13/18 16:18 130 140/68 05/13/18 16:00 128 17 144/65 (91) 99 05/13/18 15:30 133 17 145/65 (91) 99 05/13/18 15:00 130 17 144/68 (93) 99 05/13/18 14:30 110 17 118/65 (82) 99 05/13/18 14:00 100 17 111/60 (77) 99 05/13/18 13:37 138 148/70 05/13/18 13:30 112 17 133/68 (89) 99 05/13/18 13:00 138 17 120/65 (83) 99 05/13/18 12:30 98.8 133 17 122/76 (91) 99 05/13/18 12:00 128 17 132/80 (97) 99 05/13/18 11:30 132 17 155/87 (109) 99 05/13/18 11:00 137 17 130/62 (84) 100 05/13/18 10:30 130 17 140/60 (86) 100 05/13/18 10:13 138 05/13/18 10:00 138 15 144/64 (90) 100 05/13/18 09:52 Nasal Cannula 3.0 05/13/18 09:30 88 15 105/50 (68) 100 05/13/18 09:00 87 17 130/55 (80) 100 05/13/18 08:30 86 17 135/58 (83) 100 05/13/18 08:00 82 17 130/56 (80) 100 05/13/18 07:30 98.4 80 18 144/58 (86) 100 05/13/18 07:00 77 17 140/55 (83) 100 05/13/18 06:30 74 17 164/56 (92) 100 05/13/18 06:00 70 15 158/82 (107) 100 05/13/18 05:30 66 18 114/31 (58) 94 05/13/18 05:00 64 18 115/33 (60) 94 05/13/18 04:30 65 19 103/31 (55) 97 05/13/18 04:00 98.3 67 19 90/32 (51) 96 05/13/18 03:30 68 19 93/32 (52) 100 05/13/18 03:00 72 20 123/33 (63) 100 05/13/18 02:30 75 20 122/35 (64) 99 05/13/18 02:05 82 20 118/36 (63) 99 05/13/18 01:39 80 98/28 05/13/18 01:30 81 22 96/28 (50) 99 05/13/18 01:00 81 22 120/40 (66) 99 05/13/18 00:30 80 23 122/32 (62) 100 05/13/18 00:00 Nasal Cannula 3.0 Nasal Cannula 3.0 05/13/18 00:00 78 05/13/18 00:00 98.3 84 22 122/31 (61) 100 05/12/18 23:30 82 22 93/26 (48) 100 05/12/18 23:15 78 20 90/32 (51) 100 05/12/18 23:00 78 20 78/22 (40) 100 05/12/18 22:45 79 22 82/25 (44) 100 05/12/18 22:30 76 20 88/24 (45) 100 05/12/18 22:15 78 22 78/28 (45) 100 05/12/18 22:00 75 22 79/30 (46) 100 05/12/18 21:45 80 23 91/28 (49) 100 05/12/18 21:30 82 20 94/32 (52) 100 05/12/18 21:15 78 22 99/30 (53) 100 05/12/18 21:00 76 20 111/32 (58) 100 05/12/18 20:45 76 22 104/40 (61) 100 05/12/18 20:30 75 22 108/35 (59) 100 05/12/18 20:15 76 23 106/39 (61) 100 05/12/18 20:00 Venturi Mask 10.0 Venturi Mask 10.0 05/12/18 20:00 78 25 93/28 (49) 99 05/12/18 20:00 75 05/12/18 19:45 98.0 75 22 102/34 (56) 99 05/12/18 19:30 75 20 90/31 (50) 99 05/12/18 19:30 80 20 94/67 (76) 99 05/12/18 19:15 81 20 101/30 (53) 100 05/12/18 19:00 80 20 93/29 (50) 100 05/12/18 18:45 81 20 73/22 (39) 99 05/12/18 18:41 80 68/20 Intake and Output 05/12/18 05/13/18 19:00 07:00 Output Total 0 ml 0 ml Balance 0 ml 0 ml Output Urine Total 0 ml 0 ml Laboratory Tests 05/12/18 21:25: Arterial Blood pH 7.233*L, Arterial Blood Partial Pressure CO2 42.5, Arterial Blood Partial Pressure O2 101.0H, Arterial Blood HCO3 17.5*L, Arterial Blood Oxygen Saturation 96.1, Arterial Blood Base Excess -9.4*L, Luiz Test Positive 05/13/18 05:00: White Blood Count 17.9#H, Red Blood Count 3.10L, Hemoglobin 9.4L, Hematocrit 28.6L, Mean Corpuscular Volume 92, Mean Corpuscular Hemoglobin 30.3, Mean Corpuscular Hemoglobin Concent 32.8, Red Cell Distribution Width 14.2, Platelet Count 270, Mean Platelet Volume 6.4L, Neutrophils (%) (Auto) , Lymphocytes (%) ( Auto) , Monocytes (%) (Auto) , Eosinophils (%) (Auto) , Basophils (%) (Auto) , Differential Total Cells Counted 100, Neutrophils % (Manual) 85H, Lymphocytes % (Manual) 2L, Monocytes % (Manual) 2, Eosinophils % (Manual) 0, Basophils % ( Manual) 0, Band Neutrophils 11H, Platelet Estimate Adequate, Platelet Morphology Normal, Hypochromasia 1+, Anisocytosis 1+, Activated Partial Thromboplast Time 86H, Sodium Level 127L, Potassium Level 5.7H, Chloride Level 88L, Carbon Dioxide Level 17L, Anion Gap 22H, Blood Urea Nitrogen 163H, Creatinine 11.4H, Estimat Glomerular Filtration Rate , Glucose Level 224H, Calcium Level 8.7, Phosphorus Level 9.8H, Magnesium Level 2.2, Total Bilirubin 0.5, Aspartate Amino Transf (AST/SGOT) 57H, Alanine Aminotransferase (ALT/SGPT) 31, Alkaline Phosphatase 171H, Troponin I 0.000, C-Reactive Protein, Quantitative 38.4H, Pro-B-Type Natriuretic Peptide 79252K, Total Protein 6.8, Albumin 2.3L, Globulin 4.5, Albumin/Globulin Ratio 0.5L, Random Vancomycin Level 23.1 Height (Feet): 5 Height (Inches): 5.00 Weight (Pounds): 168 General Appearance: alert, lethargic, confused, moderate distress Chely Kulkarni MD May 13, 2018 18:37
--- NOTE | 2018-05-13 19:07 | NUR ---
HAND-OFF: Report given to BACH rn using SBAR. VSS. No distress noted.
[2018-05-13] MEDS: Heparin 25,000u/D5W 500ml 500 ML IV SCH (19:24)
--- NOTE | 2018-05-13 19:30 | NUR ---
NURSE NOTES: Received report from MINGO Carrizales. Patient's eyes open, verbal responsive, Khmer speaking. electronic device monitor showing SR. VS stable, O2 sat 100% with 2L/NC. NPO at this time. Patient aneuric. Dialysis this morning stated 1L out - tolerating well. Right femoral Donis cath with pigtail. Right upper arm 20G and Right AC 20G. Patient on heparin drip 18 U/kg/hr. PTT scheduled for TOMORROW 0400 AM. Phenylephrine at 10mcg/hr. Tolerating well, pressure stable. NGT Left nare patent, clamped. Bilateral soft wrists restrain noted, no adverse reactions. Bed on lowest position, bed alarm on, HOB elevated. Will continue plan of care.
[2018-05-13] MEDS: Dyna-Hex 2% Top Sol 2oz TOPIC SCH (19:58)
--- NOTE | 2018-05-13 21:00 | NUR ---
NURSE NOTES: Pt's resting in bed comfortably, BP 121/55, HR 81, R 24, O2 sat 96% with 2L/NC. Phenylephrine has stopped. Will continue to monitor.
--- NOTE | 2018-05-13 23:00 | NUR ---
NURSE NOTES: Pt's resting in bed, in no acute distress. VS stable, Afib controlled on tariff expert. Will continue to monitor.
[2018-05-14] VITALS (25 sets, daily range): BP systolic 98–168; BP diastolic 43–114
[2018-05-14] MEDS: Metoprolol 5mg/5ml Inj IVP SCH ×6 (00:49→18:00)
--- NOTE | 2018-05-14 01:00 | NUR ---
NURSE NOTES: Pt's resting in bed, VS stable, in no acute distress. Will continue to monitor.
--- NOTE | 2018-05-14 03:00 | NUR ---
NURSE NOTES: Pt's resting in bed, in no distress. VS stable. Will continue to monitor.
--- NOTE | 2018-05-14 05:00 | NUR ---
NURSE NOTES: Pt's resting in bed with eyes closed, in no acute distress. VS stable. Will continue to monitor.
[2018-05-14 05:24] LABS: HEMATOCRIT 29.4 % (42.0-52.0); HEMOGLOBIN 9.8 G/DL (14.2-18.0); MEAN CORPUSCULAR VOLUME 93 FL (80-99); PLATELET COUNT 232 K/UL (150-450); RED BLOOD COUNT 3.16 M/UL (4.70-6.10); RED CELL DISTRIBUTION WIDTH 14.5 % (11.6-14.8); WHITE BLOOD COUNT 13.5 K/UL (4.8-10.8)
[2018-05-14 05:51] LABS: ALANINE AMINOTRANSFERASE 33 U/L (12-78); ALBUMIN/GLOBULIN RATIO 0.5 (1.0-2.7); ALKALINE PHOSPHATASE 157 U/L (46-116); ANION GAP 21 mmol/L (5-15); ASPARTATE AMINO TRANSFERASE 44 U/L (15-37); BILIRUBIN,TOTAL 0.6 MG/DL (0.2-1.0); BLOOD UREA NITROGEN 126 mg/dL (7-18); CALCIUM 8.6 MG/DL (8.5-10.1); CARBON DIOXIDE 19 MMOL/L (21-32); CHLORIDE 87 MMOL/L (98-107); GAMMA GLUTAMYL TRANSPEPTIDASE 70 U/L (5-85); PHOSPHORUS 8.2 MG/DL (2.5-4.9); POTASSIUM 5.2 MMOL/L (3.5-5.1); SODIUM 127 MMOL/L (136-145)
[2018-05-14] MEDS: Hydrocortisone 100mg Inj IV SCH ×3 (06:09→21:04)
[2018-05-14] MEDS ORDERED: Heparin 25,000u/D5W 500ml 500 ML IV SCH ×3 (07:00→12:15)
--- NOTE | 2018-05-14 07:08 | NUR ---
NURSE NOTES: Pt's resting in bed comfortably, in no acute distress. PTT result came back, pharm changed Heparin drip to 16 units/kg/hr, and to repeat PTT at 1245PM. Will continue to monitor.
--- NOTE | 2018-05-14 07:19 | NUR ---
HAND-OFF: Report given to MINGO Carrizales.
--- NOTE | 2018-05-14 08:00 | NUR ---
NURSE NOTES: Received patient eyes open, A&O x3 Patient seems confused at times. conveyor monitor showing ST HR 130 Dr. Melo notified, medication interventions applied see emar. 2 L nasal cannula saturating 100%. Lung sounds diminished bilaterally. NPO at the time. Hypoactive bowel sounds present on all 4 quadrants. Patient aneuric. Right Femoral felice cath with pigtail. R upper arm 20 and R ac 20. Patient on heparin drip 16 U/kg/hr. PTT scheduled for 12:45. Bilateral restraints - observed trying to remove NGT. Bed on lowest position, bed alarm on, HOB elevated. Will continue plan of care.
[2018-05-14] MEDS: Pantoprazole Inj IVP SCH ×2 (09:00→21:04)
[2018-05-14] MEDS: Isovue-300 100ml vial INJ SCH (09:00)
[2018-05-14] MEDS: Docusate 100mg cap ORAL SCH (09:00)
[2018-05-14] MEDS ORDERED: Morphine Sulfate 2mg/ml Inj IVP PRN (09:15)
[2018-05-14] MEDS ORDERED: HYDROmorphone 1mg/ml Carpuject IVP PRN ×2 (09:15→12:15)
--- NOTE | 2018-05-14 09:45 | Infectious Diseases Prog Note ---
Assessment/Plan Assessment/Plan A: 1. serratia , Enterobacter sepsis 2. VRE colonization 3. diabetes mellitus 4. hypertension 5. 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 leucocytosis improving P 1. Discontinue vancomycin iv, Change cefepime to Ceftriaxone 2. will follow up cultures Subjective ROS Limited/Unobtainable: Yes Cardiovascular: Reports: other - tachycardic Gastrointestinal/Abdominal: Reports: other - pain Neurologic: Reports: confusion, other - on restraint Allergies: Coded Allergies: No Known Allergies (Unverified , 11/12/12) Objective Vital Signs Last 24 Hour Vital Signs Date Time Temp Pulse Resp B/P (MAP) Pulse Ox O2 Delivery O2 Flow Rate FiO2 05/14/18 08:00 110 20 143/62 (89) 99 05/14/18 07:03 130 160/76 05/14/18 07:00 112 20 144/60 (88) 99 05/14/18 06:00 117 23 147/61 (89) 99 05/14/18 05:32 120 131/77 05/14/18 05:06 133 133/73 05/14/18 05:00 117 23 133/73 (93) 99 05/14/18 04:00 131 23 119/55 (76) 99 05/14/18 04:00 50 05/14/18 03:00 106 23 124/68 (86) 99 05/14/18 02:00 129 23 123/63 (83) 99 05/14/18 01:00 94 23 131/67 (88) 99 05/14/18 00:49 120 129/65 05/14/18 00:30 120 23 129/65 (86) 99 05/14/18 00:00 107 20 145/68 (93) 99 05/14/18 00:00 106 05/13/18 23:00 76 21 112/52 (72) 99 05/13/18 22:00 98.8 87 21 138/54 (82) 99 05/13/18 21:30 73 21 119/52 (74) 99 05/13/18 21:00 81 22 121/55 (77) 99 05/13/18 20:30 84 24 127/51 (76) 99 05/13/18 20:00 87 26 131/72 (91) 99 05/13/18 20:00 56 05/13/18 19:30 86 25 131/52 (78) 99 05/13/18 19:00 98.9 97 17 130/66 (87) 99 18 18:30 99 16 132/64 (86) 99 05/13/18 18:00 98 16 130/68 (88) 99 05/13/18 17:30 108 16 140/66 (90) 99 18 17:15 132/70 05/13/18 17:00 110 16 138/68 (91) 99 05/13/18 16:39 138 144/78 05/13/18 16:30 98.7 98 17 144/68 (93) 99 05/13/18 16:18 130 140/68 05/13/18 16:00 128 17 144/65 (91) 99 05/13/18 15:30 133 17 145/65 (91) 99 05/13/18 15:00 130 17 144/68 (93) 99 05/13/18 14:30 110 17 118/65 (82) 99 05/13/18 14:00 100 17 111/60 (77) 99 05/13/18 13:37 138 148/70 05/13/18 13:30 112 17 133/68 (89) 99 05/13/18 13:00 138 17 120/65 (83) 99 05/13/18 12:30 98.8 133 17 122/76 (91) 99 05/13/18 12:00 128 17 132/80 (97) 99 05/13/18 11:30 132 17 155/87 (109) 99 05/13/18 11:00 137 17 130/62 (84) 100 05/13/18 10:30 130 17 140/60 (86) 100 05/13/18 10:13 138 05/13/18 10:00 138 15 144/64 (90) 100 05/13/18 09:52 Nasal Cannula 3.0 Height (Feet): 5 Height (Inches): 5.00 Weight (Pounds): 168 HEENT: mucous membranes moist Respiratory/Chest: lungs clear Cardiovascular: tachycardia, irregularly irregular, other - Femoral HD line Abdomen: tender, other - soft, GT in place Extremities: no edema Neurologic/Psychiatric: alert, responsive Laboratory Tests Test 05/14/18 04:10 White Blood Count 13.5 K/UL (4.8-10.8) H Red Blood Count 3.16 M/UL (4.70-6.10) L Hemoglobin 9.8 G/DL (14.2-18.0) L Hematocrit 29.4 % (42.0-52.0) L Mean Corpuscular Volume 93 FL (80-99) Mean Corpuscular Hemoglobin 30.9 PG (27.0-31.0) Mean Corpuscular Hemoglobin Concent 33.3 G/DL (32.0-36.0) Red Cell Distribution Width 14.5 % (11.6-14.8) Platelet Count 232 K/UL (150-450) Mean Platelet Volume 6.6 FL (6.5-10.1) Neutrophils (%) (Auto) % (45.0-75.0) Lymphocytes (%) (Auto) % (20.0-45.0) Monocytes (%) (Auto) % (1.0-10.0) Eosinophils (%) (Auto) % (0.0-3.0) Basophils (%) (Auto) % (0.0-2.0) Erythrocyte Sedimentation Rate 108 MM/HR (0-20) H Activated Partial Thromboplast Time 104 SEC (23-33) H Sodium Level 127 MMOL/L (136-145) L Potassium Level 5.2 MMOL/L (3.5-5.1) H Chloride Level 87 MMOL/L (98-107) L Carbon Dioxide Level 19 MMOL/L (21-32) L Anion Gap 21 mmol/L (5-15) H Blood Urea Nitrogen 126 mg/dL (7-18) H Creatinine 9.0 MG/DL (0.55-1.30) H Estimat Glomerular Filtration Rate mL/min (>60) Glucose Level 273 MG/DL (74-106) H Uric Acid 8.7 MG/DL (2.6-7.2) H Calcium Level 8.6 MG/DL (8.5-10.1) Phosphorus Level 8.2 MG/DL (2.5-4.9) H Magnesium Level 1.9 MG/DL (1.8-2.4) Total Bilirubin 0.6 MG/DL (0.2-1.0) Gamma Glutamyl Transpeptidase 70 U/L (5-85) Aspartate Amino Transf (AST/SGOT) 44 U/L (15-37) H Alanine Aminotransferase (ALT/SGPT) 33 U/L (12-78) Alkaline Phosphatase 157 U/L (46-116) H C-Reactive Protein, Quantitative 29.0 mg/dL (0.00-0.90) H Pro-B-Type Natriuretic Peptide > 53447 pg/mL (0-125) H Total Protein 6.4 G/DL (6.4-8.2) Albumin 2.0 G/DL (3.4-5.0) L Globulin 4.4 g/dL Albumin/Globulin Ratio 0.5 (1.0-2.7) L Current Medications Medications (Trade) Dose Ordered Sig/Min Route PRN Reason Start Time Stop Time Status Last Admin Dose Admin Acetaminophen (Tylenol) 650 mg Q4H PRN ORAL Mild Pain/Temp > 100.5 05/12/18 15:30 06/09/18 15:29 05/13/18 16:39 Allopurinol (Allopurinol) 300 mg DAILY ORAL 05/13/18 09:00 06/12/18 08:59 Barium Sulfate (Readi-Cat 2) 450 ml ONCE ORAL 05/13/18 09:00 05/15/18 08:59 05/13/18 09:00 Cefepime HCl 500 mg/Dextrose 55 ml @ 110 mls/hr Q24H IVPB 05/13/18 12:00 05/19/18 11:59 05/13/18 12:00 Chlorhexidine Gluconate (Tatyana-Hex 2%) 1 applic DAILY@2000 TOPIC 05/12/18 20:00 06/11/18 19:59 05/13/18 19:58 Docusate Sodium (Colace) 100 mg TID ORAL 05/12/18 18:00 06/09/18 17:59 05/13/18 18:00 Dopamine HCl/ Dextrose 250 ml @ 0 mls/hr Q24H IV 05/12/18 17:15 06/11/18 17:14 Heparin Sodium/ Dextrose 500 ml @ 24.467 mls/ hr ADJUST PER PROTOCOL IV 05/14/18 07:00 06/11/18 21:29 05/14/18 07:04 Heparin Sodium/ Sodium Chloride (Heparin 2000 units/Ns 1000ml premix) 2,000 unit ONCE PRN INJ picc line placement 05/12/18 18:15 05/14/18 18:14 Hydrocortisone (Solu-CORTEF) 100 mg EVERY 8 HOURS IV 05/12/18 22:00 06/11/18 21:59 05/14/18 06:09 Hydromorphone HCl (Dilaudid) 1 mg Q4H PRN IVP Severe Pain (Pain Scale 7-10) 05/14/18 09:15 05/21/18 09:14 Iopamidol (Isovue-300 100ml) 100 ml ONCE INJ 05/13/18 09:00 05/15/18 08:59 Iopamidol (Isovue-370 150ml) 150 ml NOW PRN INJ Radiology Procedure 05/12/18 21:30 05/14/18 21:20 Lidocaine HCl (Xylocaine 1% 30ml) 30 ml ONCE PRN INJ picc line placement 05/12/18 18:15 05/14/18 18:14 Metoclopramide HCl (Reglan) 10 mg Q6H PRN IVP Nausea & Vomiting 05/12/18 15:30 06/10/18 15:29 Metoprolol Tartrate (Lopressor) 5 mg Q5MIN X 3 IVP 05/13/18 16:30 06/12/18 16:29 05/14/18 07:03 Morphine Sulfate (Morphine Sulfate) 1 mg Q4H PRN IVP Moderate Pain (Pain Scale 4-6) 05/14/18 09:15 05/20/18 19:14 Pantoprazole (Protonix) 40 mg EVERY 12 HOURS IVP 05/12/18 21:00 06/10/18 20:59 05/13/18 20:40 Phenylephrine HCl 50 mg/Dextrose 250 ml @ 0 mls/hr Q24H IV 05/12/18 17:45 06/11/18 17:44 05/13/18 01:39 Sevelamer Carbonate (Renvela) 1,600 mg THREE TIMES A DAY ORAL 05/12/18 18:00 06/09/18 12:59 05/13/18 18:00 Vancomycin HCl (Vanco rx to dose) 1 ea DAILY PRN MISC Per rx protocol 05/13/18 09:00 06/10/18 10:29 Romie Hooks MD May 14, 2018 09:45
--- NOTE | 2018-05-14 10:00 | NUR ---
NURSE NOTES: Patient turned and repositioned. No new orders at this time. No distress noted. Dilaudid administered for pain. Patient asleep. VSS. No distress noted.
[2018-05-14] MEDS: cefTRIAXone 1 GM in D5W 55 ML IVPB SCH (11:00)
[2018-05-14] MEDS ORDERED: HydrALAZINE 50mg tab ORAL PRN (11:30)
[2018-05-14] MEDS ORDERED: Heparin 5000 units/ml inj IV ONE (12:00)
[2018-05-14] MEDS ORDERED: Metoprolol Tartrate 5 MG in D5W 55 ML IVPB SCH (12:00)
--- NOTE | 2018-05-14 12:00 | Pulmonolgy Critical Care Note ---
Critical Care - Asmt/Plan Problems: (1) Shock Assessment & Plan: Resolved (2) Hypoxemia Assessment & Plan: Improved (3) Elevated d-dimer Assessment & Plan: S/P neg CT-A (4) Hypotension Assessment & Plan: Resolved (5) Atrial fibrillation (6) ESRD (end stage renal disease) on dialysis (7) ACS (acute coronary syndrome) (8) Sacral decubitus ulcer, stage III (9) S/P cholecystectomy (10) Serratia sepsis Assessment/Plan: -HD per renal -No PE so can stop IVUH from a pulmonary standpoint, defer to cards whether or not to continue for pAF -Monitor for bleeding -Abx per ID -Off Ne -Dec HC to 50 TID and taper -ABG -Titrate O2 -Pain control/supportive care -Monitor MS -NPO, defer to surgery Re: starting TF's -BP control D/W Dr. Arroyo D/W RN and RT CCT 45 Critical Care - Objective Last 24 Hour Vital Signs Date Time Temp Pulse Resp B/P (MAP) Pulse Ox O2 Delivery O2 Flow Rate FiO2 05/14/18 11:00 120 18 168/66 (100) 99 05/14/18 10:00 118 20 165/66 (99) 99 05/14/18 09:00 122 20 158/68 (98) 99 05/14/18 08:00 98.9 110 20 143/62 (89) 99 05/14/18 07:03 130 160/76 05/14/18 07:00 112 20 144/60 (88) 99 05/14/18 06:00 117 23 147/61 (89) 99 05/14/18 05:32 120 131/77 05/14/18 05:06 133 133/73 05/14/18 05:00 117 23 133/73 (93) 99 05/14/18 04:00 131 23 119/55 (76) 99 05/14/18 04:00 50 05/14/18 03:00 106 23 124/68 (86) 99 05/14/18 02:00 129 23 123/63 (83) 99 05/14/18 01:00 94 23 131/67 (88) 99 05/14/18 00:49 120 129/65 05/14/18 00:30 120 23 129/65 (86) 99 05/14/18 00:00 107 20 145/68 (93) 99 05/14/18 00:00 106 05/13/18 23:00 76 21 112/52 (72) 99 05/13/18 22:00 98.8 87 21 138/54 (82) 99 05/13/18 21:30 73 21 119/52 (74) 99 05/13/18 21:00 81 22 121/55 (77) 99 05/13/18 20:30 84 24 127/51 (76) 99 05/13/18 20:00 87 26 131/72 (91) 99 05/13/18 20:00 56 05/13/18 19:30 86 25 131/52 (78) 99 05/13/18 19:00 98.9 97 17 130/66 (87) 99 05/13/18 18:30 99 16 132/64 (86) 99 05/13/18 18:00 98 16 130/68 (88) 99 05/13/18 17:30 108 16 140/66 (90) 99 05/13/18 17:15 132/70 05/13/18 17:00 110 16 138/68 (91) 99 05/13/18 16:39 138 144/78 05/13/18 16:30 98.7 98 17 144/68 (93) 99 05/13/18 16:18 130 140/68 05/13/18 16:00 128 17 144/65 (91) 99 05/13/18 15:30 133 17 145/65 (91) 99 05/13/18 15:00 130 17 144/68 (93) 99 05/13/18 14:30 110 17 118/65 (82) 99 05/13/18 14:00 100 17 111/60 (77) 99 05/13/18 13:37 138 148/70 05/13/18 13:30 112 17 133/68 (89) 99 05/13/18 13:00 138 17 120/65 (83) 99 05/13/18 12:30 98.8 133 17 122/76 (91) 99 05/13/18 12:00 128 17 132/80 (97) 99 Status: obtunded Condition: critical HEENT: atraumatic Lungs: rhonchi Heart: HR/BP unstable Abdomen: active bowel sounds, distended, other - TTP R . L UQ Extremities: no C/C/E Blood Sugars: BS controlled Critical Care - Subjective ROS Limited/Unobtainable: Yes ICU Day: 3 Intubation Day: N/A Interval Events: CT-A neg, on IVUH, off pressors, SBP > 200 Abd dist, no BM, O2 needs stable No change in MS Condition: critical IV Access: central EKG Rhythm: Sinus Tachycardia Secretions: None Fluids: SLIV Drips: N/A I&O: Intake and Output 05/13/18 05/14/18 18:59 06:59 Intake Total 544.300 ml 336.300 ml Output Total 1000 ml 0 ml Balance -455.700 ml 336.300 ml IV Total 544.300 ml 336.300 ml Output Urine Total 0 ml 0 ml Hemodialysis UF 1000 ml Subjective: CROW CXR: CT-A No PE BiB Atx CT AP recent matthew, possible cirrhosis Labs: Laboratory Tests Test 05/14/18 04:10 White Blood Count 13.5 K/UL (4.8-10.8) H Red Blood Count 3.16 M/UL (4.70-6.10) L Hemoglobin 9.8 G/DL (14.2-18.0) L Hematocrit 29.4 % (42.0-52.0) L Mean Corpuscular Volume 93 FL (80-99) Mean Corpuscular Hemoglobin 30.9 PG (27.0-31.0) Mean Corpuscular Hemoglobin Concent 33.3 G/DL (32.0-36.0) Red Cell Distribution Width 14.5 % (11.6-14.8) Platelet Count 232 K/UL (150-450) Mean Platelet Volume 6.6 FL (6.5-10.1) Neutrophils (%) (Auto) % (45.0-75.0) Lymphocytes (%) (Auto) % (20.0-45.0) Monocytes (%) (Auto) % (1.0-10.0) Eosinophils (%) (Auto) % (0.0-3.0) Basophils (%) (Auto) % (0.0-2.0) Erythrocyte Sedimentation Rate 108 MM/HR (0-20) H Activated Partial Thromboplast Time 104 SEC (23-33) H Sodium Level 127 MMOL/L (136-145) L Potassium Level 5.2 MMOL/L (3.5-5.1) H Chloride Level 87 MMOL/L (98-107) L Carbon Dioxide Level 19 MMOL/L (21-32) L Anion Gap 21 mmol/L (5-15) H Blood Urea Nitrogen 126 mg/dL (7-18) H Creatinine 9.0 MG/DL (0.55-1.30) H Estimat Glomerular Filtration Rate mL/min (>60) Glucose Level 273 MG/DL (74-106) H Uric Acid 8.7 MG/DL (2.6-7.2) H Calcium Level 8.6 MG/DL (8.5-10.1) Phosphorus Level 8.2 MG/DL (2.5-4.9) H Magnesium Level 1.9 MG/DL (1.8-2.4) Total Bilirubin 0.6 MG/DL (0.2-1.0) Gamma Glutamyl Transpeptidase 70 U/L (5-85) Aspartate Amino Transf (AST/SGOT) 44 U/L (15-37) H Alanine Aminotransferase (ALT/SGPT) 33 U/L (12-78) Alkaline Phosphatase 157 U/L (46-116) H C-Reactive Protein, Quantitative 29.0 mg/dL (0.00-0.90) H Pro-B-Type Natriuretic Peptide > 28397 pg/mL (0-125) H Total Protein 6.4 G/DL (6.4-8.2) Albumin 2.0 G/DL (3.4-5.0) L Globulin 4.4 g/dL Albumin/Globulin Ratio 0.5 (1.0-2.7) L Daryl Jones MD May 14, 2018 12:00
--- NOTE | 2018-05-14 12:09 | NUR ---
NURSE NOTES: Dilaudid 1MG given to patient at 11:00. Did not alleviate patient's pain. Order was changed to 2 MG. Spoke to Devan pharmacist regarding late documentation of 1 MG dilaudid. Med now correctly documented.
--- NOTE | 2018-05-14 12:47 | Nephrology Progress Note ---
Assessment/Plan Problem List: (1) ESRD (end stage renal disease) on dialysis (2) Hyponatremia (3) Major depression (4) Nausea & vomiting (5) H/O abdominal surgery Assessment: recent Assessment recent abdominal surgery hemodynamically stablized over night Presents with CHF and Low Na ESRD ACS DM HTN h/o GI bleed Depression Plan dialysed 05/13 graft clotted , has a femoral felice right in icu for low bp HOLD ALL MIND ALTERING MEDS - DC all po meds FLUID CHALLENGE ABG pressors as needed Surgical advise HD in am BP HR Pain control discussed with RN and Dr Karen LAUREN protonix per orders Subjective ROS Limited/Unobtainable: No Constitutional: Reports: malaise, other - abdominal pain Objective Objective Last 24 Hour Vital Signs Date Time Temp Pulse Resp B/P (MAP) Pulse Ox O2 Delivery O2 Flow Rate FiO2 05/14/18 12:00 98.7 122 20 105/44 (64) 99 05/14/18 12:00 122 104/52 05/14/18 11:00 120 18 168/66 (100) 99 05/14/18 10:00 118 20 165/66 (99) 99 05/14/18 09:00 122 20 158/68 (98) 99 05/14/18 08:00 98.9 110 20 143/62 (89) 99 05/14/18 07:03 130 160/76 05/14/18 07:00 112 20 144/60 (88) 99 05/14/18 06:00 117 23 147/61 (89) 99 05/14/18 05:32 120 131/77 05/14/18 05:06 133 133/73 05/14/18 05:00 117 23 133/73 (93) 99 05/14/18 04:00 131 23 119/55 (76) 99 05/14/18 04:00 50 05/14/18 03:00 106 23 124/68 (86) 99 05/14/18 02:00 129 23 123/63 (83) 99 05/14/18 01:00 94 23 131/67 (88) 99 05/14/18 00:49 120 129/65 05/14/18 00:30 120 23 129/65 (86) 99 05/14/18 00:00 107 20 145/68 (93) 99 05/14/18 00:00 106 12/24/18 23:00 76 21 112/52 (72) 99 05/13/18 22:00 98.8 87 21 138/54 (82) 99 05/13/18 21:30 73 21 119/52 (74) 99 05/13/18 21:00 81 22 121/55 (77) 99 05/13/18 20:30 84 24 127/51 (76) 99 05/13/18 20:00 87 26 131/72 (91) 99 05/13/18 20:00 56 05/13/18 19:30 86 25 131/52 (78) 99 05/13/18 19:00 98.9 97 17 130/66 (87) 99 05/13/18 18:30 99 16 132/64 (86) 99 05/13/18 18:00 98 16 130/68 (88) 99 05/13/18 17:30 108 16 140/66 (90) 99 05/13/18 17:15 132/70 05/13/18 17:00 110 16 138/68 (91) 99 05/13/18 16:39 138 144/78 05/13/18 16:30 98.7 98 17 144/68 (93) 99 05/13/18 16:18 130 140/68 05/13/18 16:00 128 17 144/65 (91) 99 05/13/18 15:30 133 17 145/65 (91) 99 05/13/18 15:00 130 17 144/68 (93) 99 05/13/18 14:30 110 17 118/65 (82) 99 05/13/18 14:00 100 17 111/60 (77) 99 05/13/18 13:37 138 148/70 05/13/18 13:30 112 17 133/68 (89) 99 05/13/18 13:00 138 17 120/65 (83) 99 Intake and Output 05/13/18 05/14/18 18:59 06:59 Intake Total 544.300 ml 336.300 ml Output Total 1000 ml 0 ml Balance -455.700 ml 336.300 ml IV Total 544.300 ml 336.300 ml Output Urine Total 0 ml 0 ml Hemodialysis UF 1000 ml Laboratory Tests 05/14/18 04:10: White Blood Count 13.5H, Red Blood Count 3.16L, Hemoglobin 9.8L, Hematocrit 29.4L, Mean Corpuscular Volume 93, Mean Corpuscular Hemoglobin 30.9, Mean Corpuscular Hemoglobin Concent 33.3, Red Cell Distribution Width 14.5, Platelet Count 232, Mean Platelet Volume 6.6, Neutrophils (%) (Auto) , Lymphocytes (%) ( Auto) , Monocytes (%) (Auto) , Eosinophils (%) (Auto) , Basophils (%) (Auto) , Erythrocyte Sedimentation Rate 108H, Activated Partial Thromboplast Time 104H, Sodium Level 127L, Potassium Level 5.2H, Chloride Level 87L, Carbon Dioxide Level 19L, Anion Gap 21H, Blood Urea Nitrogen 126H, Creatinine 9.0H, Estimat Glomerular Filtration Rate , Glucose Level 273H, Uric Acid 8.7H, Calcium Level 8.6, Phosphorus Level 8.2H, Magnesium Level 1.9, Total Bilirubin 0.6, Gamma Glutamyl Transpeptidase 70, Aspartate Amino Transf (AST/SGOT) 44H, Alanine Aminotransferase (ALT/SGPT) 33, Alkaline Phosphatase 157H, C-Reactive Protein, Quantitative 29.0H, Pro-B-Type Natriuretic Peptide > 40776E, Total Protein 6.4, Albumin 2.0L, Globulin 4.4, Albumin/Globulin Ratio 0.5L 05/14/18 12:02: Arterial Blood pH 7.421, Arterial Blood Partial Pressure CO2 28.5L, Arterial Blood Partial Pressure O2 87.8, Arterial Blood HCO3 18.1L, Arterial Blood Oxygen Saturation 95.7, Arterial Blood Base Excess -5.3L, Luiz Test Positive Height (Feet): 5 Height (Inches): 5.00 Weight (Pounds): 168 General Appearance: mild distress Cardiovascular: tachycardia Respiratory/Chest: decreased breath sounds Abdomen: decreased bowel sounds, distended, guarding, other - evidence of recent abdominal surgery Objective no change Maurilio Arroyo MD May 14, 2018 12:47
[2018-05-14 13:22] LABS: HEMATOCRIT 30.5 % (42.0-52.0); HEMOGLOBIN 10.1 G/DL (14.2-18.0); MEAN CORPUSCULAR VOLUME 92 FL (80-99); PLATELET COUNT 235 K/UL (150-450); RED CELL DISTRIBUTION WIDTH 14.2 % (11.6-14.8); WHITE BLOOD COUNT 16.5 K/UL (4.8-10.8)
[2018-05-14] MEDS: Heparin 25,000u/D5W 500ml 500 ML IV SCH (13:52)
--- NOTE | 2018-05-14 14:00 | NUR ---
NURSE NOTES: Patient sleeping comfortably. No distress noted at this time. [facility] ontinue plan of care.
--- NOTE | 2018-05-14 16:00 | NUR ---
NURSE NOTES: Patient turned and repositioned. Waking up. Slight moaning. Repositioned for comofort. Will continue to monitor patient.
--- NOTE | 2018-05-14 16:33 | General Progress Note ---
Assessment/Plan Assessment/Plan COVERING FOR DR. IRVIN ASSESSMENT AND RECOMMENDATIONS # Gram negative sepsis is on abx as per ID --> on broad spectrum abx --> on steriods as well per pulm/cc --> on vanc/cefepime as per id--> now changed to ceftriaxone # Lower extremity edema with an elevated BNP in a patient with renal failure on hemodialysis. --> Felice on hemodialysis per Dr. Arroyo. --> currently has improved # Chest pain, rule out acute coronary syndrome. --> Cardiology is following, appreciate recs, echo was reviewed --> Currently denies any chest pain, completely rule out ACS --> EKG showed old inferior and anterior wall TX, but no ischemia. --> ECHO with normal LV function --> on heparin gtt 05/13 for potential pe, cta neg --> further anticoag per cards # End-stage renal disease, on hemodialysis and also hyponatremia. --> Nephro is following, appreciate recs. --> On intermittent HD # Anemia of chronic disease due to underlying chronic medical issues, multifactorial. --> Current Hgb >11, no w/u required at this time. --> Monitor for stability Subjective ROS Limited/Unobtainable: Yes Allergies: Coded Allergies: No Known Allergies (Unverified , 11/12/12) Subjective 05/12: Pt resting in bed. No acute events. H/H stable. On abx. VS stable. 05/13: on pressors, on hep gtt, on steriods, abx, got hd, felice catheter in place 12:25: CT-A was negative, hep gtt as per cards, abg reviewed, moaning on exam, on ceftriaxone Objective Last 24 Hour Vital Signs Date Time Temp Pulse Resp B/P (MAP) Pulse Ox O2 Delivery O2 Flow Rate FiO2 05/14/18 16:00 128 20 133/98 (110) 97 05/14/18 15:00 130 18 129/114 (119) 97 05/14/18 14:00 136 18 131/63 (85) 97 05/14/18 13:00 122 18 104/47 (66) 98 05/14/18 12:00 98.7 122 20 105/44 (64) 99 05/14/18 12:00 122 104/52 05/14/18 11:00 120 18 168/66 (100) 99 05/14/18 10:00 118 20 165/66 (99) 99 05/14/18 09:00 122 20 158/68 (98) 99 05/14/18 08:00 98.9 110 20 143/62 (89) 99 05/14/18 07:03 130 160/76 05/14/18 07:00 112 20 144/60 (88) 99 05/14/18 06:00 117 23 147/61 (89) 99 05/14/18 05:32 120 131/77 05/14/18 05:06 133 133/73 05/14/18 05:00 117 23 133/73 (93) 99 05/14/18 04:00 131 23 119/55 (76) 99 05/14/18 04:00 50 05/14/18 03:00 106 23 124/68 (86) 99 05/14/18 02:00 129 23 123/63 (83) 99 05/14/18 01:00 94 23 131/67 (88) 99 05/14/18 00:49 120 129/65 05/14/18 00:30 120 23 129/65 (86) 99 05/14/18 00:00 107 20 145/68 (93) 99 05/14/18 00:00 106 05/13/18 23:00 76 21 112/52 (72) 99 05/13/18 22:00 98.8 87 21 138/54 (82) 99 05/13/18 21:30 73 21 119/52 (74) 99 05/13/18 21:00 81 22 121/55 (77) 99 05/13/18 20:30 84 24 127/51 (76) 99 05/13/18 20:00 87 26 131/72 (91) 99 05/13/18 20:00 56 05/13/18 19:30 86 25 131/52 (78) 99 05/13/18 19:00 98.9 97 17 130/66 (87) 99 05/13/18 18:30 99 16 132/64 (86) 99 05/13/18 18:00 98 16 130/68 (88) 99 05/13/18 17:30 108 16 140/66 (90) 99 05/13/18 17:15 132/70 05/13/18 17:00 110 16 138/68 (91) 99 05/13/18 16:39 138 144/78 Intake and Output 05/13/18 05/14/18 18:59 06:59 Intake Total 544.300 ml 336.300 ml Output Total 1000 ml 0 ml Balance -455.700 ml 336.300 ml IV Total 544.300 ml 336.300 ml Output Urine Total 0 ml 0 ml Hemodialysis UF 1000 ml Laboratory Tests 05/14/18 04:10: White Blood Count 13.5H, Red Blood Count 3.16L, Hemoglobin 9.8L, Hematocrit 29.4L, Mean Corpuscular Volume 93, Mean Corpuscular Hemoglobin 30.9, Mean Corpuscular Hemoglobin Concent 33.3, Red Cell Distribution Width 14.5, Platelet Count 232, Mean Platelet Volume 6.6, Neutrophils (%) (Auto) , Lymphocytes (%) ( Auto) , Monocytes (%) (Auto) , Eosinophils (%) (Auto) , Basophils (%) (Auto) , Erythrocyte Sedimentation Rate 108H, Activated Partial Thromboplast Time 104H, Sodium Level 127L, Potassium Level 5.2H, Chloride Level 87L, Carbon Dioxide Level 19L, Anion Gap 21H, Blood Urea Nitrogen 126H, Creatinine 9.0H, Estimat Glomerular Filtration Rate , Glucose Level 273H, Uric Acid 8.7H, Calcium Level 8.6, Phosphorus Level 8.2H, Magnesium Level 1.9, Total Bilirubin 0.6, Gamma Glutamyl Transpeptidase 70, Aspartate Amino Transf (AST/SGOT) 44H, Alanine Aminotransferase (ALT/SGPT) 33, Alkaline Phosphatase 157H, C-Reactive Protein, Quantitative 29.0H, Pro-B-Type Natriuretic Peptide > 32678U, Total Protein 6.4, Albumin 2.0L, Globulin 4.4, Albumin/Globulin Ratio 0.5L 05/14/18 12:02: Arterial Blood pH 7.421, Arterial Blood Partial Pressure CO2 28.5L, Arterial Blood Partial Pressure O2 87.8, Arterial Blood HCO3 18.1L, Arterial Blood Oxygen Saturation 95.7, Arterial Blood Base Excess -5.3L, Luiz Test Positive 05/14/18 13:05: White Blood Count 16.5H, Red Blood Count 3.30L, Hemoglobin 10.1L, Hematocrit 30.5L, Mean Corpuscular Volume 92, Mean Corpuscular Hemoglobin 30.6, Mean Corpuscular Hemoglobin Concent 33.1, Red Cell Distribution Width 14.2, Platelet Count 235, Mean Platelet Volume 6.3L, Neutrophils (%) (Auto) , Lymphocytes (%) ( Auto) , Monocytes (%) (Auto) , Eosinophils (%) (Auto) , Basophils (%) (Auto) , Activated Partial Thromboplast Time 105H, Differential Total Cells Counted 100, Neutrophils % (Manual) 80H, Lymphocytes % (Manual) 1L, Monocytes % (Manual) 2, Eosinophils % (Manual) 0, Basophils % (Manual) 0, Band Neutrophils 17H, Platelet Estimate Adequate, Platelet Morphology Normal, Hypochromasia 1+, Anisocytosis 1+ Height (Feet): 5 Height (Inches): 5.00 Weight (Pounds): 168 Objective PHYSICAL EXAMINATION: VITAL SIGNS: Have been reviewed HEENT: PERRLA. NECK: Supple. No lymphadenopathy. CHEST: Clear to auscultation. CARDIOVASCULAR: Tachycardic. GASTROINTESTINAL: Distended. Positive bowel sounds. Nontender. No organomegaly. EXTREMITY: A 1+ edema. Reflexes are equal on both sides. Reinaldo Leon MD May 14, 2018 16:33
--- NOTE | 2018-05-14 16:39 | General Surgery Progress Note ---
General Surgery-Progress Note Subjective Procedure Performed Right femoral temporary hemodialysis catheter insertion Additional Comments awake today and responsive. states had lap matthew 5 days ago which would be 1 day prior to admission. still with abdominal pain Objective Last 24 Hour Vital Signs Date Time Temp Pulse Resp B/P (MAP) Pulse Ox O2 Delivery O2 Flow Rate FiO2 05/14/18 16:00 128 20 133/98 (110) 97 05/14/18 15:00 130 18 129/114 (119) 97 05/14/18 14:00 136 18 131/63 (85) 97 05/14/18 13:00 122 18 104/47 (66) 98 05/14/18 12:00 98.7 122 20 105/44 (64) 99 05/14/18 12:00 122 104/52 05/14/18 11:00 120 18 168/66 (100) 99 05/14/18 10:00 118 20 165/66 (99) 99 05/14/18 09:00 122 20 158/68 (98) 99 05/14/18 08:00 98.9 110 20 143/62 (89) 99 05/14/18 07:03 130 160/76 05/14/18 07:00 112 20 144/60 (88) 99 05/14/18 06:00 117 23 147/61 (89) 99 05/14/18 05:32 120 131/77 05/14/18 05:06 133 133/73 05/14/18 05:00 117 23 133/73 (93) 99 05/14/18 04:00 131 23 119/55 (76) 99 05/14/18 04:00 50 05/14/18 03:00 106 23 124/68 (86) 99 05/14/18 02:00 129 23 123/63 (83) 99 05/14/18 01:00 94 23 131/67 (88) 99 05/14/18 00:49 120 129/65 05/14/18 00:30 120 23 129/65 (86) 99 05/14/18 00:00 107 20 145/68 (93) 99 05/14/18 00:00 106 05/13/18 23:00 76 21 112/52 (72) 99 05/13/18 22:00 98.8 87 21 138/54 (82) 99 05/13/18 21:30 73 21 119/52 (74) 99 05/13/18 21:00 81 22 121/55 (77) 99 05/13/18 20:30 84 24 127/51 (76) 99 05/13/18 20:00 87 26 131/72 (91) 99 05/13/18 20:00 56 05/13/18 19:30 86 25 131/52 (78) 99 05/13/18 19:00 98.9 97 17 130/66 (87) 99 05/13/18 18:30 99 16 132/64 (86) 99 05/13/18 18:00 98 16 130/68 (88) 99 05/13/18 17:30 108 16 140/66 (90) 99 05/13/18 17:15 132/70 05/13/18 17:00 110 16 138/68 (91) 99 05/13/18 16:39 138 144/78 I&O Intake and Output 05/13/18 05/14/18 18:59 06:59 Intake Total 544.300 ml 336.300 ml Output Total 1000 ml 0 ml Balance -455.700 ml 336.300 ml IV Total 544.300 ml 336.300 ml Output Urine Total 0 ml 0 ml Hemodialysis UF 1000 ml Wound: clean Cardiovascular: RSR Respiratory: clear Abdomen: soft, distended, tenderness Extremities: other Laboratory Tests Test 05/14/18 04:10 05/14/18 12:02 05/14/18 13:05 White Blood Count 13.5 K/UL (4.8-10.8) H 16.5 K/UL (4.8-10.8) H Red Blood Count 3.16 M/UL (4.70-6.10) L 3.30 M/UL (4.70-6.10) L Hemoglobin 9.8 G/DL (14.2-18.0) L 10.1 G/DL (14.2-18.0) L Hematocrit 29.4 % (42.0-52.0) L 30.5 % (42.0-52.0) L Mean Corpuscular Volume 93 FL (80-99) 92 FL (80-99) Mean Corpuscular Hemoglobin 30.9 PG (27.0-31.0) 30.6 PG (27.0-31.0) Mean Corpuscular Hemoglobin Concent 33.3 G/DL (32.0-36.0) 33.1 G/DL (32.0-36.0) Red Cell Distribution Width 14.5 % (11.6-14.8) 14.2 % (11.6-14.8) Platelet Count 232 K/UL (150-450) 235 K/UL (150-450) Mean Platelet Volume 6.6 FL (6.5-10.1) 6.3 FL (6.5-10.1) L Neutrophils (%) (Auto) % (45.0-75.0) % (45.0-75.0) Lymphocytes (%) (Auto) % (20.0-45.0) % (20.0-45.0) Monocytes (%) (Auto) % (1.0-10.0) % (1.0-10.0) Eosinophils (%) (Auto) % (0.0-3.0) % (0.0-3.0) Basophils (%) (Auto) % (0.0-2.0) % (0.0-2.0) Erythrocyte Sedimentation Rate 108 MM/HR (0-20) H Activated Partial Thromboplast Time 104 SEC (23-33) H 105 SEC (23-33) H Sodium Level 127 MMOL/L (136-145) L Potassium Level 5.2 MMOL/L (3.5-5.1) H Chloride Level 87 MMOL/L (98-107) L Carbon Dioxide Level 19 MMOL/L (21-32) L Anion Gap 21 mmol/L (5-15) H Blood Urea Nitrogen 126 mg/dL (7-18) H Creatinine 9.0 MG/DL (0.55-1.30) H Estimat Glomerular Filtration Rate mL/min (>60) Glucose Level 273 MG/DL (74-106) H Uric Acid 8.7 MG/DL (2.6-7.2) H Calcium Level 8.6 MG/DL (8.5-10.1) Phosphorus Level 8.2 MG/DL (2.5-4.9) H Magnesium Level 1.9 MG/DL (1.8-2.4) Total Bilirubin 0.6 MG/DL (0.2-1.0) Gamma Glutamyl Transpeptidase 70 U/L (5-85) Aspartate Amino Transf (AST/SGOT) 44 U/L (15-37) H Alanine Aminotransferase (ALT/SGPT) 33 U/L (12-78) Alkaline Phosphatase 157 U/L (46-116) H C-Reactive Protein, Quantitative 29.0 mg/dL (0.00-0.90) H Pro-B-Type Natriuretic Peptide > 11603 pg/mL (0-125) H Total Protein 6.4 G/DL (6.4-8.2) Albumin 2.0 G/DL (3.4-5.0) L Globulin 4.4 g/dL Albumin/Globulin Ratio 0.5 (1.0-2.7) L Arterial Blood pH 7.421 (7.350-7.450) Arterial Blood Partial Pressure CO2 28.5 mmHg (35.0-45.0) L Arterial Blood Partial Pressure O2 87.8 mmHg (75.0-100.0) Arterial Blood HCO3 18.1 mmol/L (22.0-26.0) L Arterial Blood Oxygen Saturation 95.7 % (95-100) Arterial Blood Base Excess -5.3 (-2-2) L Luiz Test Positive Differential Total Cells Counted 100 Neutrophils % (Manual) 80 % (45-75) H Lymphocytes % (Manual) 1 % (20-45) L Monocytes % (Manual) 2 % (1-10) Eosinophils % (Manual) 0 % (0-3) Basophils % (Manual) 0 % (0-2) Band Neutrophils 17 % (0-8) H Platelet Estimate Adequate Platelet Morphology Normal Hypochromasia 1+ Anisocytosis 1+ Plan Problems: (1) Sacral decubitus ulcer, stage III Assessment & Plan: Pt presents with partial thickness wound sacral cleft (L) 2cm x (W)0.6cm.edges flat and adherent to base of wound .Non-blanching erythema periwound.Non-blanchable erythema R heel fluctuant with delineated borders. L heel soft but easily blanches. all wounds present upon admission and will be cared for during hospital stay Tx.Plan: Cleanse sacral wound with Saline.Apply Moisture Barrier .Cover with Optifoam drsg Daily and prn. Cavilon Skin Barrier to R heel .Cover with Optifoam every 7 days and prn. Support surface mattress. Off-load heels with PIllow. Reposition at least every 2hours and prn. (2) Nausea & vomiting Assessment & Plan: abd with prior lap matthew wounds. wounds c/d/i, with skin glue. no signs of infection. surgical wounds seem fairly recent. KUB with lots of clips in the gallbladder fossa CT C/A/P noted HD as per renal. worsening leukocytosis abd pain recent lap matthew CT with air but not much fluids can potentially have had complication from recent surgery which would explain infectious process and abd pain if not improved and no other etiology noted will warrant diagnostic laparoscopy keep npo for now will follow with recs thank you Tomas Chandler May 14, 2018 16:39
--- NOTE | 2018-05-14 18:00 | NUR ---
NURSE NOTES: Changed turned repositioned. Patient asleep after pain med. VSS. No distress noted. Will continue plan of care.
--- NOTE | 2018-05-14 19:09 | NUR ---
HAND-OFF: Report given to Bach RN using SBAR. VSS. No distress noted.
--- NOTE | 2018-05-14 19:30 | NUR ---
NURSE NOTES: Received report from MINGO Carrizales. Patient's eyes open, verbal responsive, Upper Sorbian speaking. personnel monitor showing SR. VS stable, O2 sat 100% with 2L/NC. Patient aneuric. Right femoral Donis cath with pigtail. Right upper arm 20G and Right AC 20G. Patient on heparin drip 14 U/kg/hr. PTT scheduled for tonight 8:00PM. NGT Left nare patent, clamped. Bilateral soft wrists restrain noted, no adverse reactions. Bed on lowest position, bed alarm on, HOB elevated. Will continue plan of care.
--- NOTE | 2018-05-14 20:20 | NUR ---
HAND-OFF: Report given to MINGO Galvan.
--- NOTE | 2018-05-14 20:40 | NUR ---
NURSE NOTES: Report received from MINOG Martin. Pt A/Ox3. Lithuanian speaking. residential monitor currently shows ST. Pt currently on 2L NC. Shows no signs of cardiac or respiratory distress. Pt currently NPO for possible exploratory surgery. Pt has a NGT located on the L nare @ 63 cm. Pt anuric. SPR mattress in place, saccral redness present. Pt has a R femoral pigtail dorita catheter, a RAC 20 gauge, a LISA 20 gauge, and a L AV fistula (not working). IV sites are patent, asymptomatic, shows no signs of swelling, redness or irritation. Pt has a heparin drip running at 14 units/kg/hr. Awaiting results of PTT. Pt on bilateral wrist restraints for pulling of lines. Skin intact, shows no signs of breakdown or swelling. Bed in lowest position, bed alarms placed, call light within reach. Will continue to monitor and with patients plan of care.
[2018-05-14] MEDS ORDERED: Heparin 5000 units/ml inj SUBQ SCH (21:00)
[2018-05-14] MEDS: Dyna-Hex 2% Top Sol 2oz TOPIC SCH (21:04)
--- NOTE | 2018-05-14 22:00 | NUR ---
NURSE NOTES: Pt currently sleeping comfortably. Restraints were removed temporarily but pt began attempting to pull NG tube. Restraints then reapplied. Will continue to monitor.
--- NOTE | 2018-05-14 22:48 | Cardiology Progress Note ---
Assessment/Plan Status: stable Assessment/Plan ASSESSMENT AND PLAN: 1. Lower extremity edema with an elevated BNP in a patient with renal failure on hemodialysis. The patient will be getting hemodialysis per Dr. Arroyo. 2. Chest pain. Currently denies any chest pain, completely rule out ACS EKG showed old inferior and anterior wall MT, but no ischemia. We will get an echocardiogram for further evaluation. ---ECHO with normal LV function 3. End-stage renal disease, on hemodialysis per Dr. Arroyo. 4. Diabetes. 5. History of kidney stones. 6. History of psychiatric problems, dementia. 7. Tachycardia - continue rate control, currently BP stable, digoxin, cardizem prn 8. OK to proceed with ex lap 9. Maintain heparin for AFIB, hold for surgery, transition to coumadin upon discharge Subjective Cardiovascular: Reports: no symptoms Respiratory: Reports: no symptoms Gastrointestinal/Abdominal: Reports: no symptoms Genitourinary: Reports: no symptoms Subjective COVERAGE FOR LYNDONIE Patient tachycardic, Echo normal LV function, Transferred to ICU, BP stable, in NSR with hx of AFIB, on heparin gtt, CTA negative for PE, Plan for ex lap. no fevers Objective Last 24 Hour Vital Signs Date Time Temp Pulse Resp B/P (MAP) Pulse Ox O2 Delivery O2 Flow Rate FiO2 05/14/18 22:00 137 25 138/64 (88) 99 05/14/18 21:00 136 21 132/47 (75) 100 05/14/18 20:00 126 17 98/56 (70) 96 05/14/18 20:00 133 05/14/18 19:00 120 15 108/48 (68) 97 05/14/18 18:00 127 112/47 05/14/18 18:00 127 15 112/43 (66) 97 05/14/18 17:00 98.7 120 20 145/55 (85) 99 05/14/18 16:00 128 20 133/98 (110) 97 05/14/18 15:00 130 18 129/114 (119) 97 05/14/18 14:00 136 18 131/63 (85) 97 05/14/18 13:00 122 18 104/47 (66) 98 05/14/18 12:00 98.7 122 20 105/44 (64) 99 05/14/18 12:00 122 104/52 05/14/18 11:00 120 18 168/66 (100) 99 05/14/18 10:00 118 20 165/66 (99) 99 05/14/18 09:00 122 20 158/68 (98) 99 05/14/18 08:00 98.9 110 20 143/62 (89) 99 05/14/18 07:03 130 160/76 05/14/18 07:00 112 20 144/60 (88) 99 05/14/18 06:00 117 23 147/61 (89) 99 05/14/18 05:32 120 131/77 05/14/18 05:06 133 133/73 05/14/18 05:00 117 23 133/73 (93) 99 05/14/18 04:00 131 23 119/55 (76) 99 05/14/18 04:00 50 05/14/18 03:00 106 23 124/68 (86) 99 05/14/18 02:00 129 23 123/63 (83) 99 05/14/18 01:00 94 23 131/67 (88) 99 05/14/18 00:49 120 129/65 05/14/18 00:30 120 23 129/65 (86) 99 05/14/18 00:00 107 20 145/68 (93) 99 05/14/18 00:00 106 05/13/18 23:00 76 21 112/52 (72) 99 General Appearance: no apparent distress, alert EENT: PERRL/EOMI, normal ENT inspection, TMs normal, pharynx normal Neck: non-tender, normal alignment, supple, normal inspection, abnormal alignment Rhythm: ST, Afib Cardiovascular: normal peripheral pulses, regularly irregular, tachycardia Respiratory/Chest: chest wall non-tender, lungs clear, normal breath sounds, no respiratory distress Abdomen: no organomegaly, decreased bowel sounds, distended, rebound, tender Extremities: normal range of motion, non-tender, normal inspection, no calf tenderness, no swelling Neurologic: tool and production planner II-XII grossly normal, no motor/sensory deficits Intake and Output 05/13/18 05/14/18 19:00 07:00 Intake Total 517.300 ml 333.300 ml Output Total 1000 ml 0 ml Balance -482.700 ml 333.300 ml IV Total 517.300 ml 333.300 ml Output Urine Total 0 ml 0 ml Hemodialysis UF 1000 ml Laboratory Tests Test 05/14/18 04:10 05/14/18 12:02 05/14/18 13:05 05/14/18 20:00 White Blood Count 13.5 K/UL (4.8-10.8) H 16.5 K/UL (4.8-10.8) H Red Blood Count 3.16 M/UL (4.70-6.10) L 3.30 M/UL (4.70-6.10) L Hemoglobin 9.8 G/DL (14.2-18.0) L 10.1 G/DL (14.2-18.0) L Hematocrit 29.4 % (42.0-52.0) L 30.5 % (42.0-52.0) L Mean Corpuscular Volume 93 FL (80-99) 92 FL (80-99) Mean Corpuscular Hemoglobin 30.9 PG (27.0-31.0) 30.6 PG (27.0-31.0) Mean Corpuscular Hemoglobin Concent 33.3 G/DL (32.0-36.0) 33.1 G/DL (32.0-36.0) Red Cell Distribution Width 14.5 % (11.6-14.8) 14.2 % (11.6-14.8) Platelet Count 232 K/UL (150-450) 235 K/UL (150-450) Mean Platelet Volume 6.6 FL (6.5-10.1) 6.3 FL (6.5-10.1) L Neutrophils (%) (Auto) % (45.0-75.0) % (45.0-75.0) Lymphocytes (%) (Auto) % (20.0-45.0) % (20.0-45.0) Monocytes (%) (Auto) % (1.0-10.0) % (1.0-10.0) Eosinophils (%) (Auto) % (0.0-3.0) % (0.0-3.0) Basophils (%) (Auto) % (0.0-2.0) % (0.0-2.0) Erythrocyte Sedimentation Rate 108 MM/HR (0-20) H Activated Partial Thromboplast Time 104 SEC (23-33) H 105 SEC (23-33) H 83 SEC (23-33) H Sodium Level 127 MMOL/L (136-145) L Potassium Level 5.2 MMOL/L (3.5-5.1) H Chloride Level 87 MMOL/L (98-107) L Carbon Dioxide Level 19 MMOL/L (21-32) L Anion Gap 21 mmol/L (5-15) H Blood Urea Nitrogen 126 mg/dL (7-18) H Creatinine 9.0 MG/DL (0.55-1.30) H Estimat Glomerular Filtration Rate mL/min (>60) Glucose Level 273 MG/DL (74-106) H Uric Acid 8.7 MG/DL (2.6-7.2) H Calcium Level 8.6 MG/DL (8.5-10.1) Phosphorus Level 8.2 MG/DL (2.5-4.9) H Magnesium Level 1.9 MG/DL (1.8-2.4) Total Bilirubin 0.6 MG/DL (0.2-1.0) Gamma Glutamyl Transpeptidase 70 U/L (5-85) Aspartate Amino Transf (AST/SGOT) 44 U/L (15-37) H Alanine Aminotransferase (ALT/SGPT) 33 U/L (12-78) Alkaline Phosphatase 157 U/L (46-116) H C-Reactive Protein, Quantitative 29.0 mg/dL (0.00-0.90) H Pro-B-Type Natriuretic Peptide > 74963 pg/mL (0-125) H Total Protein 6.4 G/DL (6.4-8.2) Albumin 2.0 G/DL (3.4-5.0) L Globulin 4.4 g/dL Albumin/Globulin Ratio 0.5 (1.0-2.7) L Arterial Blood pH 7.421 (7.350-7.450) Arterial Blood Partial Pressure CO2 28.5 mmHg (35.0-45.0) L Arterial Blood Partial Pressure O2 87.8 mmHg (75.0-100.0) Arterial Blood HCO3 18.1 mmol/L (22.0-26.0) L Arterial Blood Oxygen Saturation 95.7 % (95-100) Arterial Blood Base Excess -5.3 (-2-2) L Luiz Test Positive Differential Total Cells Counted 100 Neutrophils % (Manual) 80 % (45-75) H Lymphocytes % (Manual) 1 % (20-45) L Monocytes % (Manual) 2 % (1-10) Eosinophils % (Manual) 0 % (0-3) Basophils % (Manual) 0 % (0-2) Band Neutrophils 17 % (0-8) H Platelet Estimate Adequate Platelet Morphology Normal Hypochromasia 1+ Anisocytosis 1+ Denis Melo MD May 14, 2018 22:48
--- NOTE | 2018-05-14 23:00 | NUR ---
NG tube removed. Discontinued restraints as pt become follows commands appropriately, is compliant and shows no signs of harm to self.
[2018-05-15] VITALS (33 sets, daily range): BP systolic 80–185; BP diastolic 18–109
--- NOTE | 2018-05-15 | NUR ---
NURSE NOTES: Pt currently resting. Pain medication provided. Will continue to monitor.
[2018-05-15] MEDS: Metoprolol 5mg/5ml Inj IVP SCH ×5 (00:53→23:59)
--- NOTE | 2018-05-15 02:00 | NUR ---
NURSE NOTES: Pt cleaned, repositioned to a more comfortable position. Pt currently resting. VSS. Will continue to monitor.
[2018-05-15 05:03] LABS: HEMATOCRIT 28.3 % (42.0-52.0); HEMOGLOBIN 9.4 G/DL (14.2-18.0); MEAN CORPUSCULAR VOLUME 92 FL (80-99); PLATELET COUNT 226 K/UL (150-450); RED BLOOD COUNT 3.08 M/UL (4.70-6.10); RED CELL DISTRIBUTION WIDTH 14.4 % (11.6-14.8); WHITE BLOOD COUNT 18.5 K/UL (4.8-10.8)
[2018-05-15] MEDS: Hydrocortisone 100mg Inj IV SCH ×3 (05:08→23:53)
[2018-05-15 05:26] LABS: ALANINE AMINOTRANSFERASE 32 U/L (12-78); ALBUMIN 1.9 G/DL (3.4-5.0); ALBUMIN/GLOBULIN RATIO 0.4 (1.0-2.7); ALKALINE PHOSPHATASE 156 U/L (46-116); ANION GAP 20 mmol/L (5-15); ASPARTATE AMINO TRANSFERASE 49 U/L (15-37); BILIRUBIN,TOTAL 0.6 MG/DL (0.2-1.0); BLOOD UREA NITROGEN 148 mg/dL (7-18); CALCIUM 8.8 MG/DL (8.5-10.1); CARBON DIOXIDE 20 MMOL/L (21-32); CHLORIDE 87 MMOL/L (98-107); CREATININE 9.8 MG/DL (0.55-1.30); GAMMA GLUTAMYL TRANSPEPTIDASE 69 U/L (5-85); PHOSPHORUS 10.1 MG/DL (2.5-4.9); POTASSIUM 5.6 MMOL/L (3.5-5.1); SODIUM 127 MMOL/L (136-145)
--- NOTE | 2018-05-15 08:00 | NUR ---
NURSE NOTES: Received patient eyes open, A&O x3 Patient seems confused at times. Complaining of severe pain, dilaudid given per MD order. alarm security or surveillance monitor showing ST HR 135 Dr. Melo aware of patients constant tachycardic state. 2 L nasal cannula saturating 100%. Lung sounds diminished bilaterally. NPO at the time. Hypoactive bowel sounds present on all 4 quadrants. Distended, round, tender abdomen - Dr. Chandler aware. Right Femoral felice cath with pigtail. Dressing changed. R upper arm 20 and R ac 20. Patient on heparin drip 14 U/kg/hr. PTT scheduled for tomorrow AM. Bed on lowest position, bed alarm on, HOB elevated. Will continue plan of care.
--- NOTE | 2018-05-15 08:20 | NUR ---
NURSE NOTES: Heparin drip of 14 U/kg/HR stopped per Dr. Chandler order due to possible surgery on patient.
[2018-05-15] MEDS: Pantoprazole Inj IVP SCH ×2 (09:00→20:22)
--- NOTE | 2018-05-15 09:06 | NUR ---
ST NOTE: RECEIVED BEDSIDE SWALLOW EVAL CHART REVIEWED. CURRENTLY, PT IS NPO FOR POSSIBLE SURGERY. HOLD ST EVAL FOR NOW. RN NOTIFIED.
[2018-05-15] MEDS ORDERED: HYDROmorphone 1mg/ml Carpuject IVP PRN ×3 (09:30→23:30)
--- NOTE | 2018-05-15 09:57 | Consultation ---
History of Present Illness General Date patient seen: May 15, 2018 Present Illness Allergies: Coded Allergies: No Known Allergies (Unverified , 11/12/12) Medication History Scheduled Allopurinol* (Allopurinol*), 100 MG ORAL DAILY, (Reported) Esomeprazole Magnesium (Nexium), 40 MG ORAL DAILY, (Reported) Hydrocodone/Acetaminophen 5-325* ([place] 5-325*), 1 TAB ORAL NEEDED, (Reported ) Insulin Glargine,Hum.rec.anlog (Lantus), 0 SUBQ BEDTIME, (Reported) Insulin Regular, Human (Humulin R), 10 SUBQ AC+HS, (Reported) Labetalol Hcl* (Normodyne*), 200 MG ORAL TWICE A DAY, (Reported) Lorazepam* (Ativan*), 2 MG ORAL NEEDED, (Reported) Lorazepam* (Lorazepam*), 0.5 MG ORAL BID, (Reported) Multivitamin (Multi Vitamin Daily), 1 EACH PO DAILY, (Reported) Blue Point-3 Fatty Acids/Fish Oil (Blue [place] 3 Fish Oil Softgel), 1 EACH PO DAILY, ( Reported) Rosuvastatin Calcium (Crestor), 40 MG ORAL DAILY, (Reported) Sennosides (Senna), 8.6 MG PO NEEDED, (Reported) Sertraline Hcl* (Zoloft*), 100 MG ORAL DAILY, (Reported) Trazodone Hcl* (Desyrel*), 100 MG ORAL BEDTIME, (Reported) Zolpidem Tartrate* (Ambien*), 5 MG ORAL BEDTIME, (Reported) Patient History Healthcare decision maker Resuscitation status Full Code Advanced Directive on File No Physical Exam Last 24 Hour Vital Signs Date Time Temp Pulse Resp B/P (MAP) Pulse Ox O2 Delivery O2 Flow Rate FiO2 05/15/18 08:00 Nasal Cannula 3.0 Nasal Cannula 2.0 05/15/18 08:00 98.8 133 20 116/33 (60) 100 05/15/18 07:00 130 20 130/40 (70) 100 05/15/18 06:00 136 20 144/52 (82) 100 05/15/18 05:08 135 120/35 05/15/18 05:00 114 16 120/35 (63) 99 05/15/18 04:00 98.5 119 16 112/43 (66) 99 05/15/18 04:00 115 05/15/18 04:00 Nasal Cannula 3.0 Nasal Cannula 3.0 05/15/18 03:00 131 16 133/62 (85) 99 05/15/18 02:00 134 20 108/38 (61) 97 05/15/18 01:00 134 16 111/26 (54) 98 05/15/18 00:53 139 118/58 05/15/18 00:00 138 05/15/18 00:00 139 25 138/64 (88) 98 05/15/18 00:00 Nasal Cannula 3.0 Nasal Cannula 3.0 05/14/18 23:00 98.8 137 24 124/52 (76) 97 05/14/18 22:00 137 25 138/64 (88) 99 05/14/18 21:00 136 21 132/47 (75) 100 05/14/18 20:00 Nasal Cannula 3.0 Nasal Cannula 3.0 05/14/18 20:00 126 17 98/56 (70) 96 05/14/18 20:00 133 05/14/18 19:00 120 15 108/48 (68) 97 05/14/18 18:00 127 112/47 05/14/18 18:00 127 15 112/43 (66) 97 05/14/18 17:00 98.7 120 20 145/55 (85) 99 05/14/18 16:00 128 20 133/98 (110) 97 05/14/18 15:00 130 18 129/114 (119) 97 05/14/18 14:00 136 18 131/63 (85) 97 05/14/18 13:00 122 18 104/47 (66) 98 05/14/18 12:00 98.7 122 20 105/44 (64) 99 05/14/18 12:00 122 104/52 05/14/18 11:00 120 18 168/66 (100) 99 05/14/18 10:00 118 20 165/66 (99) 99 Intake and Output 05/14/18 05/15/18 19:00 07:00 Intake Total 162.045 ml 256.908 ml Output Total 0 ml 0 ml Balance 162.045 ml 256.908 ml IV Total 162.045 ml 256.908 ml Output Urine Total 0 ml 0 ml # Voids 1 Laboratory Tests Test 05/14/18 12:02 05/14/18 13:05 05/14/18 20:00 05/15/18 04:00 Arterial Blood pH 7.421 (7.350-7.450) Arterial Blood Partial Pressure CO2 28.5 mmHg (35.0-45.0) L Arterial Blood Partial Pressure O2 87.8 mmHg (75.0-100.0) Arterial Blood HCO3 18.1 mmol/L (22.0-26.0) L Arterial Blood Oxygen Saturation 95.7 % (95-100) Arterial Blood Base Excess -5.3 (-2-2) L Luiz Test Positive White Blood Count 16.5 K/UL (4.8-10.8) H 18.5 K/UL (4.8-10.8) H Red Blood Count 3.30 M/UL (4.70-6.10) L 3.08 M/UL (4.70-6.10) L Hemoglobin 10.1 G/DL (14.2-18.0) L 9.4 G/DL (14.2-18.0) L Hematocrit 30.5 % (42.0-52.0) L 28.3 % (42.0-52.0) L Mean Corpuscular Volume 92 FL (80-99) 92 FL (80-99) Mean Corpuscular Hemoglobin 30.6 PG (27.0-31.0) 30.5 PG (27.0-31.0) Mean Corpuscular Hemoglobin Concent 33.1 G/DL (32.0-36.0) 33.2 G/DL (32.0-36.0) Red Cell Distribution Width 14.2 % (11.6-14.8) 14.4 % (11.6-14.8) Platelet Count 235 K/UL (150-450) 226 K/UL (150-450) Mean Platelet Volume 6.3 FL (6.5-10.1) L 6.4 FL (6.5-10.1) L Neutrophils (%) (Auto) % (45.0-75.0) % (45.0-75.0) Lymphocytes (%) (Auto) % (20.0-45.0) % (20.0-45.0) Monocytes (%) (Auto) % (1.0-10.0) % (1.0-10.0) Eosinophils (%) (Auto) % (0.0-3.0) % (0.0-3.0) Basophils (%) (Auto) % (0.0-2.0) % (0.0-2.0) Differential Total Cells Counted 100 100 Neutrophils % (Manual) 80 % (45-75) H 90 % (45-75) H Lymphocytes % (Manual) 1 % (20-45) L 0 % (20-45) L Monocytes % (Manual) 2 % (1-10) 4 % (1-10) Eosinophils % (Manual) 0 % (0-3) 0 % (0-3) Basophils % (Manual) 0 % (0-2) 0 % (0-2) Band Neutrophils 17 % (0-8) H 6 % (0-8) Platelet Estimate Adequate Adequate Platelet Morphology Normal Normal Hypochromasia 1+ 1+ Anisocytosis 1+ Activated Partial Thromboplast Time 105 SEC (23-33) H 83 SEC (23-33) H 94 SEC (23-33) H Target Cells 1+ Stomatocytes 1+ Sharon Cells 1+ Schistocytes 1+ Sodium Level 127 MMOL/L (136-145) L Potassium Level 5.6 MMOL/L (3.5-5.1) H Chloride Level 87 MMOL/L (98-107) L Carbon Dioxide Level 20 MMOL/L (21-32) L Anion Gap 20 mmol/L (5-15) H Blood Urea Nitrogen 148 mg/dL (7-18) H Creatinine 9.8 MG/DL (0.55-1.30) H Estimat Glomerular Filtration Rate mL/min (>60) Glucose Level 252 MG/DL (74-106) H Lactic Acid Level 1.20 mmol/L (0.4-2.0) Uric Acid 10.8 MG/DL (2.6-7.2) H Calcium Level 8.8 MG/DL (8.5-10.1) Phosphorus Level 10.1 MG/DL (2.5-4.9) H Magnesium Level 2.0 MG/DL (1.8-2.4) Total Bilirubin 0.6 MG/DL (0.2-1.0) Gamma Glutamyl Transpeptidase 69 U/L (5-85) Aspartate Amino Transf (AST/SGOT) 49 U/L (15-37) H Alanine Aminotransferase (ALT/SGPT) 32 U/L (12-78) Alkaline Phosphatase 156 U/L (46-116) H Troponin I 0.000 ng/mL (0.000-0.056) C-Reactive Protein, Quantitative 38.9 mg/dL (0.00-0.90) H Pro-B-Type Natriuretic Peptide > 98570 pg/mL (0-125) H Total Protein 6.5 G/DL (6.4-8.2) Albumin 1.9 G/DL (3.4-5.0) L Globulin 4.6 g/dL Albumin/Globulin Ratio 0.4 (1.0-2.7) L Height (Feet): 5 Height (Inches): 5.00 Weight (Pounds): 168 Medications Current Medications Medications (Trade) Dose Ordered Sig/Min Route PRN Reason Start Time Stop Time Status Last Admin Dose Admin Acetaminophen (Tylenol) 650 mg Q4H PRN ORAL Mild Pain/Temp > 100.5 05/12/18 15:30 06/09/18 15:29 05/13/18 16:39 Ceftriaxone Sodium 1 gm/ Dextrose 55 ml @ 110 mls/hr Q24H IVPB 05/14/18 11:00 05/21/18 10:59 05/14/18 11:00 Chlorhexidine Gluconate (Tatyana-Hex 2%) 1 applic DAILY@2000 TOPIC 05/12/18 20:00 06/11/18 19:59 05/14/18 21:04 Heparin Sodium/ Dextrose 500 ml @ 21.409 mls/ hr ADJUST PER PROTOCOL IV 05/14/18 13:41 06/13/18 13:40 05/14/18 13:52 Hydralazine HCl (Apresoline) 10 mg Q4H PRN IV bp over 160 syst 05/14/18 12:00 06/13/18 11:59 Hydrocortisone (Solu-CORTEF) 50 mg EVERY 8 HOURS IV 05/14/18 14:00 06/11/18 21:59 05/15/18 05:08 Hydromorphone HCl (Dilaudid) 2 mg Q3H PRN IVP Severe Pain (Pain Scale 7-10) 05/14/18 12:00 05/21/18 09:14 05/15/18 07:26 Metoclopramide HCl (Reglan) 10 mg Q6H PRN IVP Nausea & Vomiting 05/12/18 15:30 06/10/18 15:29 Metoprolol Tartrate (Lopressor) 5 mg Q6HR IVP 05/14/18 12:00 06/13/18 11:59 05/15/18 05:08 Pantoprazole (Protonix) 40 mg EVERY 12 HOURS IVP 05/12/18 21:00 06/10/18 20:59 05/14/18 21:04 Assessment/Plan Assessment/Plan (1) Abdominal pain (2) S/p Lap Cholecystectomy (3) Encephalopathy (4) ESRD on hemodialysis see Sid Garrett May 15, 2018 09:57
--- NOTE | 2018-05-15 10:00 | NUR ---
NURSE NOTES: Patient currently undergoing dialysis. Pain specialist at bedside - dilaudid dose decreased to 1.5 from 2 regardless of ineffective pain control - Dr. Arroyo updated regarding change. BP 120/32. Dialysis nurse at bedside. Will continue to monitor patient.
--- NOTE | 2018-05-15 10:41 | Cardiac Electrophysiology PN ---
Assessment/Plan Assessment/Plan 1. Atrial fib/flutter with RVR . Start Cardizem drip and Amiodrip after loading. Check Dig level. Watch for hypotension. Has been off pressors for 2 days. 2. Chest pain. 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 ECHO with normal LV function 3. End-stage renal disease, on hemodialysis per Dr. Arroyo. 4. S/P shock, off pressors now. Add Midodrine 5 tid 5. History of kidney stones. 6. History of psychiatric problems, dementia. 7. Hx of lap matthew. Going for CT abdomen and pelvis after HD DW RN Subjective Subjective In ICU getting HD. In and out of atrial fib/flutter with RVR 150-160s.Off pressors since yesterday Objective Last 24 Hour Vital Signs Date Time Temp Pulse Resp B/P (MAP) Pulse Ox O2 Delivery O2 Flow Rate FiO2 05/15/18 10:00 149 20 120/33 (62) 100 05/15/18 09:00 135 20 138/44 (75) 100 05/15/18 08:00 Nasal Cannula 3.0 Nasal Cannula 2.0 05/15/18 08:00 98.8 133 20 116/33 (60) 100 05/15/18 07:00 130 20 130/40 (70) 100 05/15/18 06:00 136 20 144/52 (82) 100 05/15/18 05:08 135 120/35 05/15/18 05:00 114 16 120/35 (63) 99 05/15/18 04:00 98.5 119 16 112/43 (66) 99 05/15/18 04:00 115 05/15/18 04:00 Nasal Cannula 3.0 Nasal Cannula 3.0 05/15/18 03:00 131 16 133/62 (85) 99 05/15/18 02:00 134 20 108/38 (61) 97 05/15/18 01:00 134 16 111/26 (54) 98 05/15/18 00:53 139 118/58 05/15/18 00:00 138 05/15/18 00:00 139 25 138/64 (88) 98 05/15/18 00:00 Nasal Cannula 3.0 Nasal Cannula 3.0 05/14/18 23:00 98.8 137 24 124/52 (76) 97 05/14/18 22:00 137 25 138/64 (88) 99 05/14/18 21:00 136 21 132/47 (75) 100 05/14/18 20:00 Nasal Cannula 3.0 Nasal Cannula 3.0 05/14/18 20:00 126 17 98/56 (70) 96 05/14/18 20:00 133 05/14/18 19:00 120 15 108/48 (68) 97 05/14/18 18:00 127 112/47 05/14/18 18:00 127 15 112/43 (66) 97 05/14/18 17:00 98.7 120 20 145/55 (85) 99 05/14/18 16:00 128 20 133/98 (110) 97 05/14/18 15:00 130 18 129/114 (119) 97 05/14/18 14:00 136 18 131/63 (85) 97 05/14/18 13:00 122 18 104/47 (66) 98 05/14/18 12:00 98.7 122 20 105/44 (64) 99 05/14/18 12:00 122 104/52 05/14/18 11:00 120 18 168/66 (100) 99 Intake and Output 05/14/18 05/15/18 19:00 07:00 Intake Total 162.045 ml 256.908 ml Output Total 0 ml 0 ml Balance 162.045 ml 256.908 ml IV Total 162.045 ml 256.908 ml Output Urine Total 0 ml 0 ml # Voids 1 Laboratory Tests Test 05/14/18 12:02 05/14/18 13:05 05/14/18 20:00 05/15/18 04:00 Arterial Blood pH 7.421 (7.350-7.450) Arterial Blood Partial Pressure CO2 28.5 mmHg (35.0-45.0) L Arterial Blood Partial Pressure O2 87.8 mmHg (75.0-100.0) Arterial Blood HCO3 18.1 mmol/L (22.0-26.0) L Arterial Blood Oxygen Saturation 95.7 % (95-100) Arterial Blood Base Excess -5.3 (-2-2) L Luiz Test Positive White Blood Count 16.5 K/UL (4.8-10.8) H 18.5 K/UL (4.8-10.8) H Red Blood Count 3.30 M/UL (4.70-6.10) L 3.08 M/UL (4.70-6.10) L Hemoglobin 10.1 G/DL (14.2-18.0) L 9.4 G/DL (14.2-18.0) L Hematocrit 30.5 % (42.0-52.0) L 28.3 % (42.0-52.0) L Mean Corpuscular Volume 92 FL (80-99) 92 FL (80-99) Mean Corpuscular Hemoglobin 30.6 PG (27.0-31.0) 30.5 PG (27.0-31.0) Mean Corpuscular Hemoglobin Concent 33.1 G/DL (32.0-36.0) 33.2 G/DL (32.0-36.0) Red Cell Distribution Width 14.2 % (11.6-14.8) 14.4 % (11.6-14.8) Platelet Count 235 K/UL (150-450) 226 K/UL (150-450) Mean Platelet Volume 6.3 FL (6.5-10.1) L 6.4 FL (6.5-10.1) L Neutrophils (%) (Auto) % (45.0-75.0) % (45.0-75.0) Lymphocytes (%) (Auto) % (20.0-45.0) % (20.0-45.0) Monocytes (%) (Auto) % (1.0-10.0) % (1.0-10.0) Eosinophils (%) (Auto) % (0.0-3.0) % (0.0-3.0) Basophils (%) (Auto) % (0.0-2.0) % (0.0-2.0) Differential Total Cells Counted 100 100 Neutrophils % (Manual) 80 % (45-75) H 90 % (45-75) H Lymphocytes % (Manual) 1 % (20-45) L 0 % (20-45) L Monocytes % (Manual) 2 % (1-10) 4 % (1-10) Eosinophils % (Manual) 0 % (0-3) 0 % (0-3) Basophils % (Manual) 0 % (0-2) 0 % (0-2) Band Neutrophils 17 % (0-8) H 6 % (0-8) Platelet Estimate Adequate Adequate Platelet Morphology Normal Normal Hypochromasia 1+ 1+ Anisocytosis 1+ Activated Partial Thromboplast Time 105 SEC (23-33) H 83 SEC (23-33) H 94 SEC (23-33) H Target Cells 1+ Stomatocytes 1+ Franco Cells 1+ Schistocytes 1+ Sodium Level 127 MMOL/L (136-145) L Potassium Level 5.6 MMOL/L (3.5-5.1) H Chloride Level 87 MMOL/L (98-107) L Carbon Dioxide Level 20 MMOL/L (21-32) L Anion Gap 20 mmol/L (5-15) H Blood Urea Nitrogen 148 mg/dL (7-18) H Creatinine 9.8 MG/DL (0.55-1.30) H Estimat Glomerular Filtration Rate mL/min (>60) Glucose Level 252 MG/DL (74-106) H Lactic Acid Level 1.20 mmol/L (0.4-2.0) Uric Acid 10.8 MG/DL (2.6-7.2) H Calcium Level 8.8 MG/DL (8.5-10.1) Phosphorus Level 10.1 MG/DL (2.5-4.9) H Magnesium Level 2.0 MG/DL (1.8-2.4) Total Bilirubin 0.6 MG/DL (0.2-1.0) Gamma Glutamyl Transpeptidase 69 U/L (5-85) Aspartate Amino Transf (AST/SGOT) 49 U/L (15-37) H Alanine Aminotransferase (ALT/SGPT) 32 U/L (12-78) Alkaline Phosphatase 156 U/L (46-116) H Troponin I 0.000 ng/mL (0.000-0.056) C-Reactive Protein, Quantitative 38.9 mg/dL (0.00-0.90) H Pro-B-Type Natriuretic Peptide > 52431 pg/mL (0-125) H Total Protein 6.5 G/DL (6.4-8.2) Albumin 1.9 G/DL (3.4-5.0) L Globulin 4.6 g/dL Albumin/Globulin Ratio 0.4 (1.0-2.7) L Objective General Appearance: no apparent distress, alert HEENT: PERRL/EOMI, Rhythm: ST, Afib Cardiovascular: normal peripheral pulses, regularly irregular, tachycardia Respiratory/Chest: chest wall non-tender, lungs clear, normal breath sounds, no respiratory distress Abdomen: no organomegaly, decreased bowel sounds, distended, rebound, tender Extremities: normal range of motion, non-tender, normal inspection, no calf tenderness, no swelling Right groin dialysis catheter Everett Stephenson MD May 15, 2018 10:41
--- NOTE | 2018-05-15 11:13 | NUR ---
NURSE NOTES: Dr. Stephenson at bedside new orders obtained to control HR. Doctor wants medications started after dialysis.
--- NOTE | 2018-05-15 11:42 | NUR ---
RD ASSESSMENT & RECOMMENDATIONS SEE CARE ACTIVITY FOR COMPLETE ASSESSMENT DAILY ESTIMATED NEEDS: Needs based on ESRD on HD, wound 65.5 kg abw 25-30 kcals/kg [id number] total kcals 1.25-1.8 g protein/kg 82-118 g total protein 20-22 mL/kg 0467-9774 total fluid mLs NUTRITION DIAGNOSIS: 1) Increased kcal and protein needs r/t renal dysfunction and wound healing as evidenced by pt with ESRD on HD, partial thickness wound @ sacral cleft and stage 1 @ rt heel. 2) Altered GI function R/T recent lap matthew w/ possible complications as per MD as evidenced by pt c/o abdominal pain, NPO at this time, plan for ex lap noted. CURRENT DIET:NPO except ice chips/meds PO DIET RECOMMENDATIONS: Initiate diet per MD ADDITIONAL RECOMMENDATIONS: 1) REcalibrate bed scale for accurate CBW 2) Monitor NPO status, monitor need for TPN 3) Wound healing: Add Nephrovite 1 tab daily once able to eat by PO, add Smith 1pkt BID 4) Rec accucheck w/ SSI- elev BGs, h/o DM, on sterodial med .
[2018-05-15] MEDS: cefTRIAXone 1 GM in D5W 55 ML IVPB SCH (11:46)
--- NOTE | 2018-05-15 11:47 | NUR ---
CASE MANAGEMENT: REVIEW SI: ESRD ON HD . ACS . A-FIB RIGHT FEMORAL TEMPORARY HEMODIALYSIS CATHETER INSERTION 05/13 T 98.8 HR 150 RR 20 BP 130/40 SAT 100% NC/3L WBC 18.5 H/H 9.4/28.3 NA 127 BUN 148 CR 9.8 IS: MIDODRINE PO TID CARDIZEM IV Q24HR AMIODARONE IV Q24HR SOLU CORTEF IV Q8HR HEPARIN IV ICU STATUS DCP: PATIENT IS FROM HOME
[2018-05-15] MEDS: Amiodarone 900 MG in D5W 500ml 482 ML IV SCH ×2 (12:04→18:55)
--- NOTE | 2018-05-15 12:22 | NUR ---
NURSE NOTES: HR in 140s, BP elevated 160s. 2 different cardiac drips started on patient. Unstable for CT at the moment. Will follow up after medication takes effect.
--- NOTE | 2018-05-15 12:24 | Nephrology Progress Note ---
Assessment/Plan Problem List: (1) ESRD (end stage renal disease) on dialysis (2) Hyponatremia (3) Major depression (4) Nausea & vomiting (5) H/O abdominal surgery Assessment: recent Assessment recent abdominal surgery hemodynamically stablized over night Presents with CHF and Low Na ESRD ACS DM HTN h/o GI bleed Depression Plan dialysed 05/13 currently on HD tolerating well. graft clotted , has a femoral felice right in icu for low bp HOLD ALL MIND ALTERING MEDS - DC all po meds FLUID CHALLENGE ABG pressors as needed Surgical advise HD in am BP HR Pain control discussed with RN and Dr Karen LAUREN protonix per orders Subjective ROS Limited/Unobtainable: No Constitutional: Reports: malaise, weakness Objective Objective Last 24 Hour Vital Signs Date Time Temp Pulse Resp B/P (MAP) Pulse Ox O2 Delivery O2 Flow Rate FiO2 05/15/18 12:18 142 161/55 05/15/18 12:05 142 167/39 05/15/18 12:00 Nasal Cannula 3.0 Nasal Cannula 2.0 05/15/18 12:00 98.8 144 20 161/55 (90) 100 05/15/18 11:00 150 20 118/35 (62) 100 05/15/18 10:29 Nasal Cannula 3.0 05/15/18 10:00 149 20 120/33 (62) 100 05/15/18 09:00 135 20 138/44 (75) 100 05/15/18 08:00 Nasal Cannula 3.0 Nasal Cannula 2.0 05/15/18 08:00 98.8 133 20 116/33 (60) 100 05/15/18 07:00 130 20 130/40 (70) 100 05/15/18 06:00 136 20 144/52 (82) 100 05/15/18 05:08 135 120/35 05/15/18 05:00 114 16 120/35 (63) 99 05/15/18 04:00 98.5 119 16 112/43 (66) 99 05/15/18 04:00 115 05/15/18 04:00 Nasal Cannula 3.0 Nasal Cannula 3.0 05/15/18 03:00 131 16 133/62 (85) 99 05/15/18 02:00 134 20 108/38 (61) 97 05/15/18 01:00 134 16 111/26 (54) 98 05/15/18 00:53 139 118/58 05/15/18 00:00 138 05/15/18 00:00 139 25 138/64 (88) 98 05/15/18 00:00 Nasal Cannula 3.0 Nasal Cannula 3.0 05/14/18 23:00 98.8 137 24 124/52 (76) 97 05/14/18 22:00 137 25 138/64 (88) 99 05/14/18 21:00 136 21 132/47 (75) 100 05/14/18 20:00 Nasal Cannula 3.0 Nasal Cannula 3.0 05/14/18 20:00 126 17 98/56 (70) 96 05/14/18 20:00 133 05/14/18 19:00 120 15 108/48 (68) 97 05/14/18 18:00 127 112/47 05/14/18 18:00 127 15 112/43 (66) 97 05/14/18 17:00 98.7 120 20 145/55 (85) 99 05/14/18 16:00 128 20 133/98 (110) 97 05/14/18 15:00 130 18 129/114 (119) 97 05/14/18 14:00 136 18 131/63 (85) 97 05/14/18 13:00 122 18 104/47 (66) 98 Intake and Output 05/14/18 05/15/18 19:00 07:00 Intake Total 162.045 ml 256.908 ml Output Total 0 ml 0 ml Balance 162.045 ml 256.908 ml IV Total 162.045 ml 256.908 ml Output Urine Total 0 ml 0 ml # Voids 1 Laboratory Tests 05/14/18 13:05: White Blood Count 16.5H, Red Blood Count 3.30L, Hemoglobin 10.1L, Hematocrit 30.5L, Mean Corpuscular Volume 92, Mean Corpuscular Hemoglobin 30.6, Mean Corpuscular Hemoglobin Concent 33.1, Red Cell Distribution Width 14.2, Platelet Count 235, Mean Platelet Volume 6.3L, Neutrophils (%) (Auto) , Lymphocytes (%) ( Auto) , Monocytes (%) (Auto) , Eosinophils (%) (Auto) , Basophils (%) (Auto) , Differential Total Cells Counted 100, Neutrophils % (Manual) 80H, Lymphocytes % (Manual) 1L, Monocytes % (Manual) 2, Eosinophils % (Manual) 0, Basophils % ( Manual) 0, Band Neutrophils 17H, Platelet Estimate Adequate, Platelet Morphology Normal, Hypochromasia 1+, Anisocytosis 1+, Activated Partial Thromboplast Time 105H 05/14/18 20:00: Activated Partial Thromboplast Time 83H 05/15/18 04:00: White Blood Count 18.5H, Red Blood Count 3.08L, Hemoglobin 9.4L, Hematocrit 28.3L, Mean Corpuscular Volume 92, Mean Corpuscular Hemoglobin 30.5, Mean Corpuscular Hemoglobin Concent 33.2, Red Cell Distribution Width 14.4, Platelet Count 226, Mean Platelet Volume 6.4L, Neutrophils (%) (Auto) , Lymphocytes (%) ( Auto) , Monocytes (%) (Auto) , Eosinophils (%) (Auto) , Basophils (%) (Auto) , Differential Total Cells Counted 100, Neutrophils % (Manual) 90H, Lymphocytes % (Manual) 0L, Monocytes % (Manual) 4, Eosinophils % (Manual) 0, Basophils % ( Manual) 0, Band Neutrophils 6, Platelet Estimate Adequate, Platelet Morphology Normal, Hypochromasia 1+, Activated Partial Thromboplast Time 94H, Target Cells 1+, Stomatocytes 1+, Bonnie Cells 1+, Schistocytes 1+, Sodium Level 127L, Potassium Level 5.6H, Chloride Level 87L, Carbon Dioxide Level 20L, Anion Gap 20H, Blood Urea Nitrogen 148H, Creatinine 9.8H, Estimat Glomerular Filtration Rate , Glucose Level 252H, Lactic Acid Level 1.20, Uric Acid 10.8H, Calcium Level 8.8, Phosphorus Level 10.1H, Magnesium Level 2.0, Total Bilirubin 0.6, Gamma Glutamyl Transpeptidase 69, Aspartate Amino Transf (AST/SGOT) 49H, Alanine Aminotransferase (ALT/SGPT) 32, Alkaline Phosphatase 156H, Troponin I 0.000, C-Reactive Protein, Quantitative 38.9H, Pro-B-Type Natriuretic Peptide > 24870B, Total Protein 6.5, Albumin 1.9L, Globulin 4.6, Albumin/Globulin Ratio 0.4L, Digoxin Level 0.5 Height (Feet): 5 Height (Inches): 5.00 Weight (Pounds): 168 General Appearance: mild distress Cardiovascular: tachycardia Respiratory/Chest: decreased breath sounds Abdomen: other - tender Objective no change Maurilio Arroyo MD May 15, 2018 12:24
--- NOTE | 2018-05-15 12:57 | Pulmonolgy Critical Care Note ---
Critical Care - Asmt/Plan Problems: (1) Shock Assessment & Plan: Resolved (2) Hypoxemia Assessment & Plan: Improved (3) Elevated d-dimer Assessment & Plan: S/P neg CT-A (4) Hypotension Assessment & Plan: Resolved (5) Atrial fibrillation (6) ESRD (end stage renal disease) on dialysis (7) ACS (acute coronary syndrome) (8) Sacral decubitus ulcer, stage III (9) S/P cholecystectomy (10) Serratia sepsis Assessment/Plan: -HD per renal -Off heparin for possible OR -Monitor for bleeding -Abx per ID -Off Ne -Dec HC to 25 TID and taper -Titrate O2 -Pain control/supportive care -Monitor MS -NPO, defer to surgery Re: starting TF's -F/U SURGERY RECS: repeat CT, possible OR -BP control D/W RN and RT CCT 35 Critical Care - Objective Last 24 Hour Vital Signs Date Time Temp Pulse Resp B/P (MAP) Pulse Ox O2 Delivery O2 Flow Rate FiO2 05/15/18 12:18 142 161/55 05/15/18 12:05 142 167/39 05/15/18 12:00 Nasal Cannula 3.0 Nasal Cannula 2.0 05/15/18 12:00 98.8 144 20 161/55 (90) 100 05/15/18 11:00 150 20 118/35 (62) 100 05/15/18 10:29 Nasal Cannula 3.0 05/15/18 10:00 149 20 120/33 (62) 100 05/15/18 09:00 135 20 138/44 (75) 100 05/15/18 08:00 Nasal Cannula 3.0 Nasal Cannula 2.0 05/15/18 08:00 98.8 133 20 116/33 (60) 100 05/15/18 07:00 130 20 130/40 (70) 100 05/15/18 06:00 136 20 144/52 (82) 100 05/15/18 05:08 135 120/35 05/15/18 05:00 114 16 120/35 (63) 99 05/15/18 04:00 98.5 119 16 112/43 (66) 99 05/15/18 04:00 115 05/15/18 04:00 Nasal Cannula 3.0 Nasal Cannula 3.0 05/15/18 03:00 131 16 133/62 (85) 99 05/15/18 02:00 134 20 108/38 (61) 97 05/15/18 01:00 134 16 111/26 (54) 98 05/15/18 00:53 139 118/58 05/15/18 00:00 138 05/15/18 00:00 139 25 138/64 (88) 98 05/15/18 00:00 Nasal Cannula 3.0 Nasal Cannula 3.0 05/14/18 23:00 98.8 137 24 124/52 (76) 97 05/14/18 22:00 137 25 138/64 (88) 99 05/14/18 21:00 136 21 132/47 (75) 100 05/14/18 20:00 Nasal Cannula 3.0 Nasal Cannula 3.0 05/14/18 20:00 126 17 98/56 (70) 96 05/14/18 20:00 133 05/14/18 19:00 120 15 108/48 (68) 97 05/14/18 18:00 127 112/47 05/14/18 18:00 127 15 112/43 (66) 97 05/14/18 17:00 98.7 120 20 145/55 (85) 99 05/14/18 16:00 128 20 133/98 (110) 97 05/14/18 15:00 130 18 129/114 (119) 97 05/14/18 14:00 136 18 131/63 (85) 97 05/14/18 13:00 122 18 104/47 (66) 98 Status: awake Condition: critical HEENT: atraumatic, normocephalic Lungs: rhonchi Heart: HR/BP unstable Abdomen: soft Extremities: no C/C/E Blood Sugars: BS controlled Critical Care - Subjective ROS Limited/Unobtainable: Yes ICU Day: 4 Interval Events: AF/FL now on Dilt and Amio gtt + Abd pain AFVSS off pressors O2 needs stable Condition: critical IV Access: central EKG Rhythm: Atrial Fibrillation I&O: Intake and Output 05/14/18 05/15/18 19:00 07:00 Intake Total 162.045 ml 256.908 ml Output Total 0 ml 0 ml Balance 162.045 ml 256.908 ml IV Total 162.045 ml 256.908 ml Output Urine Total 0 ml 0 ml # Voids 1 Subjective: CROW Labs: Laboratory Tests Test 05/14/18 13:05 05/14/18 20:00 05/15/18 04:00 White Blood Count 16.5 K/UL (4.8-10.8) H 18.5 K/UL (4.8-10.8) H Red Blood Count 3.30 M/UL (4.70-6.10) L 3.08 M/UL (4.70-6.10) L Hemoglobin 10.1 G/DL (14.2-18.0) L 9.4 G/DL (14.2-18.0) L Hematocrit 30.5 % (42.0-52.0) L 28.3 % (42.0-52.0) L Mean Corpuscular Volume 92 FL (80-99) 92 FL (80-99) Mean Corpuscular Hemoglobin 30.6 PG (27.0-31.0) 30.5 PG (27.0-31.0) Mean Corpuscular Hemoglobin Concent 33.1 G/DL (32.0-36.0) 33.2 G/DL (32.0-36.0) Red Cell Distribution Width 14.2 % (11.6-14.8) 14.4 % (11.6-14.8) Platelet Count 235 K/UL (150-450) 226 K/UL (150-450) Mean Platelet Volume 6.3 FL (6.5-10.1) L 6.4 FL (6.5-10.1) L Neutrophils (%) (Auto) % (45.0-75.0) % (45.0-75.0) Lymphocytes (%) (Auto) % (20.0-45.0) % (20.0-45.0) Monocytes (%) (Auto) % (1.0-10.0) % (1.0-10.0) Eosinophils (%) (Auto) % (0.0-3.0) % (0.0-3.0) Basophils (%) (Auto) % (0.0-2.0) % (0.0-2.0) Differential Total Cells Counted 100 100 Neutrophils % (Manual) 80 % (45-75) H 90 % (45-75) H Lymphocytes % (Manual) 1 % (20-45) L 0 % (20-45) L Monocytes % (Manual) 2 % (1-10) 4 % (1-10) Eosinophils % (Manual) 0 % (0-3) 0 % (0-3) Basophils % (Manual) 0 % (0-2) 0 % (0-2) Band Neutrophils 17 % (0-8) H 6 % (0-8) Platelet Estimate Adequate Adequate Platelet Morphology Normal Normal Hypochromasia 1+ 1+ Anisocytosis 1+ Activated Partial Thromboplast Time 105 SEC (23-33) H 83 SEC (23-33) H 94 SEC (23-33) H Target Cells 1+ Stomatocytes 1+ [place] Cells 1+ Schistocytes 1+ Sodium Level 127 MMOL/L (136-145) L Potassium Level 5.6 MMOL/L (3.5-5.1) H Chloride Level 87 MMOL/L (98-107) L Carbon Dioxide Level 20 MMOL/L (21-32) L Anion Gap 20 mmol/L (5-15) H Blood Urea Nitrogen 148 mg/dL (7-18) H Creatinine 9.8 MG/DL (0.55-1.30) H Estimat Glomerular Filtration Rate mL/min (>60) Glucose Level 252 MG/DL (74-106) H Lactic Acid Level 1.20 mmol/L (0.4-2.0) Uric Acid 10.8 MG/DL (2.6-7.2) H Calcium Level 8.8 MG/DL (8.5-10.1) Phosphorus Level 10.1 MG/DL (2.5-4.9) H Magnesium Level 2.0 MG/DL (1.8-2.4) Total Bilirubin 0.6 MG/DL (0.2-1.0) Gamma Glutamyl Transpeptidase 69 U/L (5-85) Aspartate Amino Transf (AST/SGOT) 49 U/L (15-37) H Alanine Aminotransferase (ALT/SGPT) 32 U/L (12-78) Alkaline Phosphatase 156 U/L (46-116) H Troponin I 0.000 ng/mL (0.000-0.056) C-Reactive Protein, Quantitative 38.9 mg/dL (0.00-0.90) H Pro-B-Type Natriuretic Peptide > 97175 pg/mL (0-125) H Total Protein 6.5 G/DL (6.4-8.2) Albumin 1.9 G/DL (3.4-5.0) L Globulin 4.6 g/dL Albumin/Globulin Ratio 0.4 (1.0-2.7) L Digoxin Level 0.5 NG/ML (0.5-2.0) Daryl Jones MD May 15, 2018 12:57
[2018-05-15] MEDS ORDERED: Digoxin 0.5mg/2ml Inj IVP SCH (13:15)
[2018-05-15] MEDS: Heparin 25,000u/D5W 500ml 500 ML IV SCH (13:37)
--- NOTE | 2018-05-15 13:37 | Infectious Diseases Prog Note ---
Assessment/Plan Assessment/Plan A: 1. serratia , Enterobacter sepsis 2. VRE colonization 3. diabetes mellitus 4. hypertension 5. 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 leucocytosis 6. A fib with RVR 7. Abdominal pain, recent cholecystectomy P 1. continue Ceftriaxone, add Flagyl 2. will follow up CT scan of abdomen Subjective ROS Limited/Unobtainable: Yes Allergies: Coded Allergies: No Known Allergies (Unverified , 11/12/12) Objective Vital Signs Last 24 Hour Vital Signs Date Time Temp Pulse Resp B/P (MAP) Pulse Ox O2 Delivery O2 Flow Rate FiO2 05/15/18 13:17 Nasal Cannula 05/15/18 12:18 142 161/55 05/15/18 12:05 142 167/39 05/15/18 12:00 Nasal Cannula 3.0 Nasal Cannula 2.0 05/15/18 12:00 98.8 144 20 161/55 (90) 100 05/15/18 11:00 150 20 118/35 (62) 100 05/15/18 10:29 Nasal Cannula 3.0 05/15/18 10:00 149 20 120/33 (62) 100 05/15/18 09:00 135 20 138/44 (75) 100 05/15/18 08:00 Nasal Cannula 3.0 Nasal Cannula 2.0 05/15/18 08:00 98.8 133 20 116/33 (60) 100 05/15/18 07:00 130 20 130/40 (70) 100 05/15/18 06:00 136 20 144/52 (82) 100 05/15/18 05:08 135 120/35 05/15/18 05:00 114 16 120/35 (63) 99 05/15/18 04:00 98.5 119 16 112/43 (66) 99 05/15/18 04:00 115 05/15/18 04:00 Nasal Cannula 3.0 Nasal Cannula 3.0 05/15/18 03:00 131 16 133/62 (85) 99 05/15/18 02:00 134 20 108/38 (61) 97 05/15/18 01:00 134 16 111/26 (54) 98 05/15/18 00:53 139 118/58 05/15/18 00:00 138 05/15/18 00:00 139 25 138/64 (88) 98 05/15/18 00:00 Nasal Cannula 3.0 Nasal Cannula 3.0 05/14/18 23:00 98.8 137 24 124/52 (76) 97 05/14/18 22:00 137 25 138/64 (88) 99 05/14/18 21:00 136 21 132/47 (75) 100 05/14/18 20:00 Nasal Cannula 3.0 Nasal Cannula 3.0 05/14/18 20:00 126 17 98/56 (70) 96 05/14/18 20:00 133 05/14/18 19:00 120 15 108/48 (68) 97 05/14/18 18:00 127 112/47 05/14/18 18:00 127 15 112/43 (66) 97 05/14/18 17:00 98.7 120 20 145/55 (85) 99 05/14/18 16:00 128 20 133/98 (110) 97 05/14/18 15:00 130 18 129/114 (119) 97 05/14/18 14:00 136 18 131/63 (85) 97 Height (Feet): 5 Height (Inches): 5.00 Weight (Pounds): 168 HEENT: mucous membranes moist Respiratory/Chest: lungs clear Cardiovascular: tachycardia, irregularly irregular, other - R arm PICC line Abdomen: tender Extremities: no edema Neurologic/Psychiatric: other - opes eyes, weak Laboratory Tests Test 05/14/18 20:00 05/15/18 04:00 Activated Partial Thromboplast Time 83 SEC (23-33) H 94 SEC (23-33) H White Blood Count 18.5 K/UL (4.8-10.8) H Red Blood Count 3.08 M/UL (4.70-6.10) L Hemoglobin 9.4 G/DL (14.2-18.0) L Hematocrit 28.3 % (42.0-52.0) L Mean Corpuscular Volume 92 FL (80-99) Mean Corpuscular Hemoglobin 30.5 PG (27.0-31.0) Mean Corpuscular Hemoglobin Concent 33.2 G/DL (32.0-36.0) Red Cell Distribution Width 14.4 % (11.6-14.8) Platelet Count 226 K/UL (150-450) Mean Platelet Volume 6.4 FL (6.5-10.1) L Neutrophils (%) (Auto) % (45.0-75.0) Lymphocytes (%) (Auto) % (20.0-45.0) Monocytes (%) (Auto) % (1.0-10.0) Eosinophils (%) (Auto) % (0.0-3.0) Basophils (%) (Auto) % (0.0-2.0) Differential Total Cells Counted 100 Neutrophils % (Manual) 90 % (45-75) H Lymphocytes % (Manual) 0 % (20-45) L Monocytes % (Manual) 4 % (1-10) Eosinophils % (Manual) 0 % (0-3) Basophils % (Manual) 0 % (0-2) Band Neutrophils 6 % (0-8) Platelet Estimate Adequate Platelet Morphology Normal Hypochromasia 1+ Target Cells 1+ Stomatocytes 1+ [place] Cells 1+ Schistocytes 1+ Sodium Level 127 MMOL/L (136-145) L Potassium Level 5.6 MMOL/L (3.5-5.1) H Chloride Level 87 MMOL/L (98-107) L Carbon Dioxide Level 20 MMOL/L (21-32) L Anion Gap 20 mmol/L (5-15) H Blood Urea Nitrogen 148 mg/dL (7-18) H Creatinine 9.8 MG/DL (0.55-1.30) H Estimat Glomerular Filtration Rate mL/min (>60) Glucose Level 252 MG/DL (74-106) H Lactic Acid Level 1.20 mmol/L (0.4-2.0) Uric Acid 10.8 MG/DL (2.6-7.2) H Calcium Level 8.8 MG/DL (8.5-10.1) Phosphorus Level 10.1 MG/DL (2.5-4.9) H Magnesium Level 2.0 MG/DL (1.8-2.4) Total Bilirubin 0.6 MG/DL (0.2-1.0) Gamma Glutamyl Transpeptidase 69 U/L (5-85) Aspartate Amino Transf (AST/SGOT) 49 U/L (15-37) H Alanine Aminotransferase (ALT/SGPT) 32 U/L (12-78) Alkaline Phosphatase 156 U/L (46-116) H Troponin I 0.000 ng/mL (0.000-0.056) C-Reactive Protein, Quantitative 38.9 mg/dL (0.00-0.90) H Pro-B-Type Natriuretic Peptide > 75417 pg/mL (0-125) H Total Protein 6.5 G/DL (6.4-8.2) Albumin 1.9 G/DL (3.4-5.0) L Globulin 4.6 g/dL Albumin/Globulin Ratio 0.4 (1.0-2.7) L Digoxin Level 0.5 NG/ML (0.5-2.0) Current Medications Medications (Trade) Dose Ordered Sig/Min Route PRN Reason Start Time Stop Time Status Last Admin Dose Admin Acetaminophen (Tylenol) 650 mg Q4H PRN ORAL Mild Pain/Temp > 100.5 05/12/18 15:30 06/09/18 15:29 05/13/18 16:39 Amiodarone HCl 900 mg/Dextrose 500 ml @ 0 mls/hr Q24H IV 05/15/18 11:30 05/16/18 11:29 05/15/18 12:04 Ceftriaxone Sodium 1 gm/ Dextrose 55 ml @ 110 mls/hr Q24H IVPB 05/14/18 11:00 05/21/18 10:59 05/15/18 11:46 Chlorhexidine Gluconate (Tatyana-Hex 2%) 1 applic DAILY@2000 TOPIC 05/12/18 20:00 06/11/18 19:59 05/14/18 21:04 Digoxin (Lanoxin) 0.5 mg ONCE IVP 05/15/18 13:15 05/15/18 14:30 Diltiazem HCl 125 mg/Dextrose 125 ml @ 0 mls/hr Q24H IV 05/15/18 11:30 05/16/18 11:29 05/15/18 12:05 Heparin Sodium/ Dextrose 500 ml @ 21.409 mls/ hr ADJUST PER PROTOCOL IV 05/14/18 13:41 06/13/18 13:40 05/14/18 13:52 Hydralazine HCl (Apresoline) 10 mg Q4H PRN IV bp over 160 syst 05/14/18 12:00 06/13/18 11:59 Hydrocortisone (Solu-CORTEF) 25 mg EVERY 8 HOURS IV 05/15/18 14:00 06/11/18 21:59 Hydromorphone HCl (Dilaudid) 1.5 mg Q2H PRN IVP Severe Pain (Pain Scale 7-10) 05/15/18 10:00 05/21/18 09:14 Metoclopramide HCl (Reglan) 10 mg Q6H PRN IVP Nausea & Vomiting 05/12/18 15:30 06/10/18 15:29 Metoprolol Tartrate (Lopressor) 5 mg Q6HR IVP 05/14/18 12:00 06/13/18 11:59 05/15/18 12:18 Midodrine (Pro-Amatine) 5 mg THREE TIMES A DAY ORAL 05/15/18 13:00 06/14/18 12:59 Pantoprazole (Protonix) 40 mg EVERY 12 HOURS IVP 05/12/18 21:00 06/10/18 20:59 05/15/18 09:00 Romie Hooks MD May 15, 2018 13:37
--- NOTE | 2018-05-15 14:00 | NUR ---
NURSE NOTES: Turned and repositioned. Second CT done. patient complaining of pain. Managed with pain meds. Dr. Stephenson at bedside3. Orders obtained to control HR.
--- NOTE | 2018-05-15 14:25 | Pre-Procedure Note/Attestation ---
Pre-Procedure Note/Attestation Complete Prior to Procedure Planned Procedure: not applicable Procedure Narrative: diagnostic laparoscopy, possible exploratory laparotomy, possible bowel resection, abdominal washout, drain placement Indications for Procedure Pre-Operative Diagnosis: recent lap matthew, abdominal pain, sepsis, pneumoperitoneum Attestation I attest that I discussed the nature of the procedure; its benefits; risks and complications; and alternatives (and the risks and benefits of such alternatives ), prior to the procedure, with the patient (or the patient's legal electronics parts sales representative). I attest that, if there was a reasonable possibility of needing a blood transfusion, the patient (or the patient's legal electronics parts sales representative) was given the [place] Department of Health Services standardized written summary, pursuant to the Kj Na[place]hu Blood Safety Act ([place] Health and Safety Code # 1645, as amended). I attest that I re-evaluated the patient just prior to the surgery and that there has been no change in the patient's H&P, except as documented below: Tomas Chandler May 15, 2018 14:25
--- NOTE | 2018-05-15 14:28 | General Progress Note ---
Progress Note Progress Note Surgery: leukocytosis worsening. still with abdominal pain. work up for all other etiology thus far non conclusive. recent lap matthew 5 or so days ago at outside facility. unsure if complicated or not? unsure where or what happened but fresh incisions noted CT findings reviewed. on admission he was stable but since is declining recommend urgent diagnostic laparoscopy to ensure no complication from last surgery patient unable to given consent in current condition no next of kin or POA only known person is his neighbor who does not have decision making capability for him given severity of illness and declining surgery emergent. all medical physicians discussed care and agree to proceed with surgery as deemed emergency Tomas Chandler May 15, 2018 14:28
--- NOTE | 2018-05-15 15:15 | Diagnostic Imaging Report ---
Indication: Abdominal pain Technique: Noncontrast CT of the abdomen and pelvis utilizing automated exposure control. Axial, sagittal and coronal reformats presented. CT dose: Total DLP 930 mGycm; CTDI vol 16.14 mGy Comparison: 05/13/2018 Findings: Please note that evaluation of the abdominal and pelvic viscera and vascular structures is limited without the use of intravenous and oral contrast. Within these limitations the following observations are made: There is a small right pleural effusion and adjacent atelectasis or consolidation in the right lower lobe. Some patchy dependent atelectasis is noted left posterior lower lobe. Heart size appears within normal limits. There are coronary arterial calcifications. Mitral annular and aortic valvular calcifications are also noted. No pericardial effusion. Small amount of free intraperitoneal air is again noted in the upper abdomen, slightly decreased compared to the prior exam. There is history of recent cholecystectomy, likely accounting for the free intraperitoneal air. Multiple surgical clips again noted in the region of the anna hepatis. There is some amorphous intermediate density in the gallbladder fossa. No well-defined/drainable fluid collection identified to suggest abscess. There is some surrounding stranding in the right upper quadrant, similar to the prior exam may be related to postoperative change. Questionable surface nodularity of the right hepatic lobe again noted. Spleen unremarkable. Bilateral adrenal thickening/hyperplasia is similar to the prior exam. A subcentimeter fat attenuation structure in the lateral limb of the left adrenal gland is noted, likely small lipid rich adenoma. Multiple simple appearing renal cysts are noted. One cyst in the lower pole of the left kidney contains a small septal calcification (series 3 image #88). A 1.6 cm exophytic rounded lesion in the upper pole of the right kidney (series 3 image #51) demonstrates attenuation higher than expected for cyst and may represent a complex/proteinaceous cyst although the possibility of a renal mass can also be considered. Further evaluation ultrasound recommended. No urinary tract stone or hydronephrosis bilaterally. Bladder wall thickening is noted, possibly exaggerated due to underdistention however correlation with urinalysis is recommended. There is no evidence of bowel obstruction. There is colonic diverticulosis without definite evidence suggest acute diverticulitis. Mild abdominal pelvic ascites is noted, similar to the prior exam. There is a small right inguinal hernia containing fat and some fluid. Abdominal aorta is normal in caliber with atherosclerotic calcifications. There are degenerative changes of the spine and hips. There is skin irregularity overlying the lower sacrum and the possibility of a sacral decubitus also should be considered. Correlate with physical exam. IMPRESSION: Limited exam without intravenous and oral contrast. Within these limitations: * Small amount of free intraperitoneal air, slightly decreased compared to the prior exam. This is likely related to recent cholecystectomy. * Amorphous attenuation in the region of the gallbladder fossa with some right upper quadrant fat stranding. Findings are similar to the prior exam and may be postoperative in etiology. No well-defined/drainable fluid collection identified to suggest abscess. * Findings suggestive of a small sacral decubitus ulcer. Correlate with physical exam. No definite changes in the underlying sacrum suggests osteomyelitis. MRI or bone scan can be obtained for more sensitive evaluation. * Small right pleural effusion with atelectasis/consolidation of the adjacent right lower lobe. * Coronary arterial calcifications. * Atrophic kidneys with multiple cysts bilaterally. Exophytic lesion in the upper pole the right kidney demonstrates density greater than expected for simple fluid and may represent a hemorrhagic or proteinaceous cyst. Further evaluation with ultrasound recommended. * Bladder wall thickening likely related to underdistention. Cystitis not excluded. Additional findings as above, not significantly changed from the prior exam. The CT scanner at [facility] is accredited by the [employer] and the scans are performed using protocols designed to limit radiation exposure to as low as reasonably achievable to attain images of sufficient resolution adequate for diagnostic evaluation.
--- NOTE | 2018-05-15 16:00 | NUR ---
NURSE NOTES: Dr. Chandler confirmed that surgery will be happening today - unsure of time yet. Patient pre-op checklist prepared with charge nurse. No new orders at this time. Will continue plan of care.
--- NOTE | 2018-05-15 16:30 | Consultation ---
DATE OF CONSULTATION: 05/15/2018 PAIN MANAGEMENT CONSULTATION CONSULTING PHYSICIAN: Dejan Busby M.D. REFERRING PHYSICIAN: Reinaldo Iverson M.D. PHYSICIAN PHARMACY OPERATIONS SPECIALIST: Ayse Hernandez CHIEF COMPLAINT: Abdominal pain. HISTORY OF PRESENT ILLNESS: The patient is a 78-year-old male who is being seen on the ICU of [facility] for initial pain management consultation. The patient was admitted under the care of Dr. Head complaining of chest pain; however, was found to have severe abdominal pain and is being followed by surgeon, Dr. Chandler. 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 Due to the severity of the abdominal pain, the patient had been on Dilaudid 2 mg IV every three hours as needed for severe pain which was put in by Dr. Arroyo, syrup filterer. However once assessing the patient and discussed with the nurse who reports that the Dilaudid 2 mg IV has been given multiple times causing no adverse reactions however the pain has not being controlled. Due to this, we were consulted so the patient will have adequate pain control while here in the hospital. We discussed with Dr. Chandler who knows patient had been status post laparoscopic cholecystectomy however and is perplexed about the cause of the pain due to current CT scan being seeming to be normal once reviewed by the doctor. No knowledge at this time about where the surgery had been taken place due to the patient's confusion and being a poor historian. At this time, Dr. Busby feels that due to his current condition we will try to be conservative with the amount of medication we are giving the patient and we will change the Dilaudid from 2 mg IV every 3 hours to Dilaudid 1.5 mg IV every two hours. It was advised by the nurse to assess the patient to see if the patient has pain due to patient's confusion and moaning even without being touched. I also as well talked with Dr. Arroyo due to the patient's pain not being controlled on the 2 mg IV every three hours and explained to the doctor that at this time due to the patient's current condition we will change it to 1.5 every two hours. However we will continue to assess the patient to see if it is adequate in relieving his pain. Dr. Chandler does feel that he may go into surgery with the patient if a follow up CT is done and not showing any changes. Dr. Kulkarni as well is on the case due to patient's underlying encephalopathy and depression with anxiety. 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 PAST SURGICAL HISTORY: AV shunt placement. SOCIAL HISTORY: As per chart no history of alcohol abuse, IV drug abuse or tobacco use. ALLERGIES: No known drug allergies. MEDICATIONS: Allopurinol, Nexium, [place], Lantus, Humulin, labetalol, Ativan, Crestor, senna, Zoloft, Ambien. REVIEW OF SYSTEMS: Unable to obtain due to the patient's mental status. PHYSICAL EXAMINATION: GENERAL: Alert and awake. VITAL SIGNS: Blood pressure is 154/38 , heart rate 133, oxygen saturation 100%, respiratory rate 20, temperature 98.8 degrees Fahrenheit. HEENT: PERRLA. NECK: Range of motion is decreased due to the patient's condition with tenderness to paracervical muscles. No adenopathy. LUNGS: Decreased breath sounds bilaterally. HEART: Regular. ABDOMEN: Tenderness to palpation. BACK: Range of motion is decreased in flexion and extension. EXTREMITIES: Upper and lower extremity range of motion is decreased. No cyanosis. No clubbing. Sensory is reduced. Reflexes are not obtainable. No adenopathy ASSESSMENT AND PLAN: This is a 78-year-old male with abdominal pain status post laparoscopic cholecystectomy, encephalopathy, end-stage renal disease, on hemodialysis. At this time again we will change the Dilaudid to 1.5 mg IV every two hours as needed for severe pain as well as informed the nurse to assess the patient if moaning is due to pain or confusion. Discussed case with the surgeon and syrup filterer. Psychiatrist is on the case. Considering his vital organs, we will continue to assess the patient for signs of pain and change medications as needed. Parameters will be set to hold, opioid for oversedation or systolic blood pressure below 90 or diastolic blood pressure below 60, respiratory rate below 12, oxygen saturation below 92%. The patient was discussed with Dr. Busby and he concurred. We will follow up the patient. Thank you very much for the courtesy of this consultation. Dejan Busby M.D. JULIEN Hernandez DR: Sesar JOB#: [id number] CC: RON
[2018-05-15] MEDS ORDERED: Surgicel 4in x 8in TOPIC SCH (17:15)
--- NOTE | 2018-05-15 18:12 | NUR ---
NURSE NOTES: Patient turned and repositioned. Surgicel applied to R femoral felice site. Prepared for surgery. Patient aware of current care plan. Will continue plan of care.
--- NOTE | 2018-05-15 19:15 | NUR ---
HAND-OFF: Report given to Yuly AGUILA using SBAR. VSS. NO distress noted.
[2018-05-15] MEDS ORDERED: LR 1000ml 1,000 ML IVLG SCH (19:21)
--- NOTE | 2018-05-15 19:26 | Anethesia Preoperative Eval ---
Anesthesia Pre-op PMH/ROS General Date of Evaluation: May 15, 2018 Time of Evaluation: 21:29 Anesthesiologist: Chito ASA Score: ASA 4 - Emergency Mallampati Score Class I : Soft palate, uvula, fauces, pillars visible Class II: Soft palate, uvula, fauces visible Class III: Soft palate, base of uvula visible Class IV: Only hard plate visible Mallampati Classification: Class II Surgeon: Geraldine Diagnosis: Abd Pain Surgical Procedure: Exploratory Laparotomy, Bowel Resection Anesthesia History: none Family History: no anesthesia problems Allergies: Coded Allergies: No Known Allergies (Unverified , 11/12/12) Medications: see eMAR Patient NPO?: Yes NPO Date: May 13, 2018 NPO Time: 0600 Past Medical History Cardiovascular: Reports: CAD, arrhythmia - AFib, other Gastrointestinal/Genitourinary: Reports: ESRD - Dialysis, other - BPH, Renal Stones Neurologic/Psychiatric: Reports: dementia, depression/anxiety Endocrine: Reports: DM Hematology/Immune: Reports: anemia, other - Sepsis Anesthesia Pre-op Phys. Exam Physician Exam Last Vital Signs Date Time Temp Pulse Resp B/P (MAP) Pulse Ox O2 Delivery O2 Flow Rate FiO2 05/15/18 19:00 105 18 128/45 (72) 100 05/15/18 16:00 98.9 05/15/18 16:00 Nasal Cannula 3.0 Nasal Cannula 2.0 Constitutional: NAD Neurologic: CN 2-12 intact Cardiovascular: RRR Respiratory: CTA Gastrointestinal: S/NT/ND Airway Exam Mallampati Score: Class II MO: limited ROM: limited Teeth: missing, intact Anesthesia Pre-op A/P Labs Hematology Test 05/15/18 04:00 White Blood Count 18.5 K/UL (4.8-10.8) H Red Blood Count 3.08 M/UL (4.70-6.10) L Hemoglobin 9.4 G/DL (14.2-18.0) L Hematocrit 28.3 % (42.0-52.0) L Mean Corpuscular Volume 92 FL (80-99) Mean Corpuscular Hemoglobin 30.5 PG (27.0-31.0) Mean Corpuscular Hemoglobin Concent 33.2 G/DL (32.0-36.0) Red Cell Distribution Width 14.4 % (11.6-14.8) Platelet Count 226 K/UL (150-450) Mean Platelet Volume 6.4 FL (6.5-10.1) L Neutrophils (%) (Auto) % (45.0-75.0) Lymphocytes (%) (Auto) % (20.0-45.0) Monocytes (%) (Auto) % (1.0-10.0) Eosinophils (%) (Auto) % (0.0-3.0) Basophils (%) (Auto) % (0.0-2.0) Differential Total Cells Counted 100 Neutrophils % (Manual) 90 % (45-75) H Lymphocytes % (Manual) 0 % (20-45) L Monocytes % (Manual) 4 % (1-10) Eosinophils % (Manual) 0 % (0-3) Basophils % (Manual) 0 % (0-2) Band Neutrophils 6 % (0-8) Platelet Estimate Adequate Platelet Morphology Normal Hypochromasia 1+ Target Cells 1+ Stomatocytes 1+ Franco Cells 1+ Schistocytes 1+ Coagulation Test 05/14/18 20:00 05/15/18 04:00 Activated Partial Thromboplast Time 83 SEC (23-33) H 94 SEC (23-33) H Chemistry Test 05/15/18 04:00 Sodium Level 127 MMOL/L (136-145) L Potassium Level 5.6 MMOL/L (3.5-5.1) H Chloride Level 87 MMOL/L (98-107) L Carbon Dioxide Level 20 MMOL/L (21-32) L Anion Gap 20 mmol/L (5-15) H Blood Urea Nitrogen 148 mg/dL (7-18) H Creatinine 9.8 MG/DL (0.55-1.30) H Estimat Glomerular Filtration Rate mL/min (>60) Glucose Level 252 MG/DL (74-106) H Lactic Acid Level 1.20 mmol/L (0.4-2.0) Uric Acid 10.8 MG/DL (2.6-7.2) H Calcium Level 8.8 MG/DL (8.5-10.1) Phosphorus Level 10.1 MG/DL (2.5-4.9) H Magnesium Level 2.0 MG/DL (1.8-2.4) Total Bilirubin 0.6 MG/DL (0.2-1.0) Gamma Glutamyl Transpeptidase 69 U/L (5-85) Aspartate Amino Transf (AST/SGOT) 49 U/L (15-37) H Alanine Aminotransferase (ALT/SGPT) 32 U/L (12-78) Alkaline Phosphatase 156 U/L (46-116) H Troponin I 0.000 ng/mL (0.000-0.056) C-Reactive Protein, Quantitative 38.9 mg/dL (0.00-0.90) H Pro-B-Type Natriuretic Peptide > 28307 pg/mL (0-125) H Total Protein 6.5 G/DL (6.4-8.2) Albumin 1.9 G/DL (3.4-5.0) L Globulin 4.6 g/dL Albumin/Globulin Ratio 0.4 (1.0-2.7) L Risk Assessment & Plan Assessment: ASA 4E Plan: GA, SED, GlideScope Go Status Change Before Surgery: No Pre-Antibiotics Dru grams Ancef IV Given Within 1 Hr of Incision: Yes Time Given: 21:41 Anuj Dale MD May 15, 2018 19:25
[2018-05-15] MEDS ORDERED: fentaNYL 100 mcg/2 mL IV ONE (19:27)
[2018-05-15] MEDS ORDERED: Sodium Chloride 10ml vial INJ ONE (19:27)
[2018-05-15] MEDS ORDERED: Lidocaine 1% MPF 10mg/ml 5ml ONE (19:27)
[2018-05-15] MEDS ORDERED: Midazolam 2mg/2ml Inj ONE (19:27)
[2018-05-15] MEDS ORDERED: Atropine Sulfate 0.4mg/ml inj IVP PRN (19:30)
[2018-05-15] MEDS ORDERED: Norco 5mg/325mg tab ORAL PRN (19:30)
[2018-05-15] MEDS ORDERED: fentaNYL 100 mcg/2 mL IV PRN (19:30)
[2018-05-15] MEDS ORDERED: Meperidine 50mg/ml Inj(FOR RIGORS ONLY) IVP PRN (19:30)
[2018-05-15] MEDS ORDERED: HYDROcodone/Acetamin 7.5/325 tab ORAL PRN (19:30)
[2018-05-15] MEDS ORDERED: DiphenhydrAMINE 50mg/ml Inj IVP PRN ×2 (19:30→23:30)
[2018-05-15] MEDS ORDERED: oxyCODONE HCL/Acetaminophen 5/325mg ORAL PRN (19:30)
[2018-05-15] MEDS ORDERED: Hydromorphone 0.5mg/0.5ml inj IVP PRN (19:30)
[2018-05-15] MEDS ORDERED: LORazepam Inj 2mg/ml 1ml IV PRN (19:30)
[2018-05-15] MEDS ORDERED: Metoclopramide 10mg/2ml Inj IVP PRN (19:30)
--- NOTE | 2018-05-15 19:30 | NUR ---
NURSE NOTES: Received pt in bed with eyes open. AOx1. [place] speaking pt. a-fib on the monitor with HR 119. On 3 L NC at this time sat 100%. Pt NPO at this time. Right AC and Right UA 20G IV sites patent running Amio gtt @ 0.5 mg/hr and Cardizem running @ 12.5 mg/hr. Heparin gtt is help at this time for SX. Right femoral Donis with pigtail for dialysis noted with dressing dry and intact. Pt c/o right lower quadrant pain. no distention noted. Bed in lowest position, side rails upx3. No signs of distress noted. Will continue with plan of care.
[2018-05-15] MEDS: Dyna-Hex 2% Top Sol 2oz TOPIC SCH (19:33)
[2018-05-15 19:42] LABS: INR 1.2 (0.9-1.1)
[2018-05-15] MEDS ORDERED: Zemuron 50mg/5ml Inj IV ONE ×2 (19:47→22:41)
--- NOTE | 2018-05-15 20:02 | General Progress Note ---
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 the pt may benefit from 11/12 disabilities caregiver or sniff placement Subjective Neurologic/Psychiatric: Reports: anxiety Allergies: Coded Allergies: No Known Allergies (Unverified , 11/12/12) Subjective the pt is waxing and waning. the pt was anxious earlier today. the pt is turkmen speaking and is disoriented. Objective Last 24 Hour Vital Signs Date Time Temp Pulse Resp B/P (MAP) Pulse Ox O2 Delivery O2 Flow Rate FiO2 05/15/18 19:00 105 18 128/45 (72) 100 05/15/18 18:30 108 18 130/48 (75) 100 05/15/18 18:00 104 18 135/52 (79) 100 05/15/18 18:00 108 123/53 05/15/18 17:30 108 18 133/38 (69) 100 05/15/18 17:00 110 18 138/32 (67) 100 05/15/18 16:30 118 16 140/34 (69) 100 05/15/18 16:00 98.9 120 20 147/38 (74) 100 05/15/18 16:00 118 16 140/34 (69) 100 05/15/18 16:00 Nasal Cannula 3.0 Nasal Cannula 2.0 05/15/18 15:30 100 20 110/30 (56) 100 05/15/18 15:00 98 20 106/24 (51) 100 05/15/18 14:30 76 20 112/32 (58) 100 05/15/18 14:00 78 20 110/40 (63) 100 05/15/18 13:30 88 20 105/34 (57) 100 05/15/18 13:17 Nasal Cannula 05/15/18 13:15 118 05/15/18 13:00 90 20 110/40 (63) 100 05/15/18 12:30 94 20 118/48 (71) 100 05/15/18 12:18 142 161/55 05/15/18 12:05 142 167/39 05/15/18 12:00 Nasal Cannula 3.0 Nasal Cannula 2.0 05/15/18 12:00 98.8 144 20 161/55 (90) 100 05/15/18 11:00 150 20 118/35 (62) 100 05/15/18 10:29 Nasal Cannula 3.0 05/15/18 10:00 149 20 120/33 (62) 100 05/15/18 09:00 135 20 138/44 (75) 100 05/15/18 08:00 Nasal Cannula 3.0 Nasal Cannula 2.0 05/15/18 08:00 98.8 133 20 116/33 (60) 100 05/15/18 07:00 130 20 130/40 (70) 100 05/15/18 06:00 136 20 144/52 (82) 100 05/15/18 05:08 135 120/35 05/15/18 05:00 114 16 120/35 (63) 99 05/15/18 04:00 98.5 119 16 112/43 (66) 99 05/15/18 04:00 115 05/15/18 04:00 Nasal Cannula 3.0 Nasal Cannula 3.0 05/15/18 03:00 131 16 133/62 (85) 99 05/15/18 02:00 134 20 108/38 (61) 97 05/15/18 01:00 134 16 111/26 (54) 98 05/15/18 00:53 139 118/58 05/15/18 00:00 138 05/15/18 00:00 139 25 138/64 (88) 98 05/15/18 00:00 Nasal Cannula 3.0 Nasal Cannula 3.0 05/14/18 23:00 98.8 137 24 124/52 (76) 97 05/14/18 22:00 137 25 138/64 (88) 99 05/14/18 21:00 136 21 132/47 (75) 100 05/14/18 20:00 Nasal Cannula 3.0 Nasal Cannula 3.0 05/14/18 20:00 126 17 98/56 (70) 96 05/14/18 20:00 133 Intake and Output 05/14/18 05/15/18 18:59 06:59 Intake Total 168.161 ml 256.908 ml Output Total 0 ml 0 ml Balance 168.161 ml 256.908 ml IV Total 168.161 ml 256.908 ml Output Urine Total 0 ml 0 ml # Voids 1 Laboratory Tests 05/14/18 20:00: Activated Partial Thromboplast Time 83H 05/15/18 04:00: Activated Partial Thromboplast Time 94H, White Blood Count 18.5H, Red Blood Count 3.08L, Hemoglobin 9.4L, Hematocrit 28.3L, Mean Corpuscular Volume 92, Mean Corpuscular Hemoglobin 30.5, Mean Corpuscular Hemoglobin Concent 33.2, Red Cell Distribution Width 14.4, Platelet Count 226, Mean Platelet Volume 6.4L, Neutrophils (%) (Auto) , Lymphocytes (%) (Auto) , Monocytes (%) (Auto) , Eosinophils (%) (Auto) , Basophils (%) (Auto) , Differential Total Cells Counted 100, Neutrophils % (Manual) 90H, Lymphocytes % (Manual) 0L, Monocytes % (Manual) 4, Eosinophils % (Manual) 0, Basophils % (Manual) 0, Band Neutrophils 6 , Platelet Estimate Adequate, Platelet Morphology Normal, Hypochromasia 1+, Target Cells 1+, Stomatocytes 1+, Franco Cells 1+, Schistocytes 1+, Sodium Level 127L, Potassium Level 5.6H, Chloride Level 87L, Carbon Dioxide Level 20L, Anion Gap 20H, Blood Urea Nitrogen 148H, Creatinine 9.8H, Estimat Glomerular Filtration Rate , Glucose Level 252H, Lactic Acid Level 1.20, Uric Acid 10.8H, Calcium Level 8.8, Phosphorus Level 10.1H, Magnesium Level 2.0, Total Bilirubin 0.6, Gamma Glutamyl Transpeptidase 69, Aspartate Amino Transf (AST/SGOT) 49H, Alanine Aminotransferase (ALT/SGPT) 32, Alkaline Phosphatase 156H, Troponin I 0.000, C-Reactive Protein, Quantitative 38.9H, Pro-B-Type Natriuretic Peptide > 34378J, Total Protein 6.5, Albumin 1.9L, Globulin 4.6, Albumin/Globulin Ratio 0.4L, Digoxin Level 0.5 05/15/18 18:50: Activated Partial Thromboplast Time 35H, Prothrombin Time 13.0H, Prothromb Time International Ratio 1.2H Height (Feet): 5 Height (Inches): 4.00 Weight (Pounds): 168 General Appearance: alert, confused Chely Kulkarni MD May 15, 2018 20:02
--- NOTE | 2018-05-15 21:00 | NUR ---
NURSE NOTES: Pt taken down to Surgery at this time. accompanied by Yuly AGUILA and transporter. Pt connected to monitor and O2. A-fi on the monitor Hr 92, Bp 156/40, RR 28, Fio2 99%.
[2018-05-15] MEDS ORDERED: Phenylephrine 10mg/ml Vial ONE (21:26)
[2018-05-15] MEDS ORDERED: Sterile Water Irrig 1000ml IRRIG ONE (21:30)
[2018-05-15] MEDS ORDERED: LR 1000ml ONE (21:30)
[2018-05-15] MEDS ORDERED: NS Irrig 1000ml ONE (21:30)
--- NOTE | 2018-05-15 21:45 | NUR ---
NURSE NOTES: Report given to surgery nurse Suzy AGUILA at this time.
--- NOTE | 2018-05-15 22:33 | Immediate Post-Op Evaluation ---
Immediate Post-Op Evalulation Immediate Post-Op Evalulation Procedure: Exploratory Laparotomy, Bowel Resection Date of Evaluation: May 15, 2018 Time of Evaluation: 00:00 IV Fluids: 700 LR Blood Products: 0 Estimated Blood Loss: 50 Urinary Output: 0 Blood Pressure Systolic: 121 Blood Pressure Diastolic: 72 Pulse Rate: 75 Respiratory Rate: 20 - Mech Vent O2 Sat by Pulse Oximetry: 100 Temperature (Fahrenheit): 98.3 Pain Score (1-10): 0 Nausea: No Vomiting: No Complications 0 Patient Status: no response, patent, ventilated, none Hydration Status: adequate Dru Grams Ancef IV Given Within 1 Hr of Incision: Yes Time Given: 21:41 Anuj Dale MD May 15, 2018 22:33
--- NOTE | 2018-05-15 23:20 | Brief Operative Note ---
Immediate Post Operative Note Operative Note Pre-op Diagnosis: recent lap matthew, abdominal pain, sepsis, pneumoperitoneum Procedure: 1. exploratory laparotomy 2. small bowel resection 3. omentectomy 4. abdominal washout 5. drain placement Post-op Diagnosis: small bowel perforation in distal ileum Surgeon: richmond Anesthesiologist: sherwin Anesthesia: general Specimen: yes - 1. small bowel; 2. omentum. 3 cultures Complications: none Condition: stable Fluids: see records Estimated Blood Loss: volume - 50 Drains: VELVET Implant(s) used?: No Tomas Chandler May 15, 2018 23:20
--- NOTE | 2018-05-15 23:33 | NUR ---
RESPIRATORY NOTE: Pt came up from surgery still intubated. MD Geraldine intubated pt w/ ETT 7.5 @ 22cm lipline. ETT secured by anchorfast. Pt placed on ventilator w/ settings: AC 16, 600VT, 40%, PEEP +5. B/S rosa. clear, nonproductive cough. Pt sedated, both hands on soft-restraints to prevent pt from self-extubation. Vent plugged into red outlet, ambubg at bedside. Pt in no apparent distress at this time. Will continue to monitor pt.
--- NOTE | 2018-05-15 23:39 | NUR ---
NURSE NOTES: Received pt in bed with eyes closed, sedated. Orally intubated at this time on AC 16, Vt 600, p5 Fio2 40%. IV sited noted to be patent and intact at this time. Amio and Cardizem gtt continue at the same rate. Abdominal dressing remains dry and intact with no soilage noted. SCD on. No signs of distress noted. Will continue to monitor.
--- NOTE | 2018-05-15 23:45 | NUR ---
NURSE NOTES: Per MD Chandler orders is to call the c d area supervisor over night for orders. Heparin gtt to be on hold.
[2018-05-16] VITALS (51 sets, daily range): BP systolic 69–174; BP diastolic 10–88
--- NOTE | 2018-05-16 00:07 | NUR ---
NURSE NOTES: Pt noted to become hypotensive at this time. Notified MD Jones about the BP. awaiting call back
--- NOTE | 2018-05-16 00:13 | NUR ---
NURSE NOTES: MD Jones called with order to bolus 500cc NS at this time.
[2018-05-16] MEDS ORDERED: Midazolam for drip 50 MG in NS 90 ML IV SCH (00:30)
[2018-05-16] MEDS: fentaNYL Citrate 2,500 MCG in NS 200 ML IV SCH ×2 (00:30→23:53)
[2018-05-16] MEDS: Midazolam for drip 50 MG in NS 90 ML IV SCH ×2 (00:30→23:53)
[2018-05-16] MEDS ORDERED: Sodium Chloride 500ML 500 ML IV ONE (00:30)
[2018-05-16] MEDS ORDERED: dilTIAZem HCl 25mg/5ml Inj ONE (00:41)
--- NOTE | 2018-05-16 01:10 | NUR ---
NURSE NOTES: 35cc drained from L quadrant VELVET drain at this time. Serosanguineous drainage noted.
--- NOTE | 2018-05-16 01:39 | NUR ---
NURSE NOTES: Pt hypotensive again at this time. SBP Currently 80/35 at this time.
--- NOTE | 2018-05-16 02:00 | NUR ---
NURSE NOTES: Paged MD Stephenson at this time. pt hypotensive BP 72/22. awaiting call back
--- NOTE | 2018-05-16 02:17 | NUR ---
NURSE NOTES: Paged MD Jones 2nd attempt. answered phone at this time. Order is to start Phenylephrine again. Orders read back and confirmed by
--- NOTE | 2018-05-16 02:38 | NUR ---
NURSE NOTES: Nurse phosphatic fertilizer supervisor called at this time. No phenylephrine in the Pyxis at this time. She will look for some and call back. Charge nurse Cecelia Ruiz at this time.
[2018-05-16] MEDS ORDERED: Phenylephrine 10mg/ml 5ml vial IV ONE (02:53)
[2018-05-16] MEDS: Phenylephrine 50 MG in D5W 245 ML IV SCH (02:58)
--- NOTE | 2018-05-16 04:30 | NUR ---
NURSE NOTES: Spoke with ColoristChristoph Phoenix and she stated that perineal fluid was already collected
--- NOTE | 2018-05-16 04:50 | NUR ---
NURSE NOTES: CHG bath given at this time. Abdominal dressing remains dry and intact. Left quad VELVET drain continues to drain seriosanguineous fluid. Pt does not open eyes yet. No signs of distress noted. Will continue to monitor
[2018-05-16] MEDS: Metoprolol 5mg/5ml Inj IVP SCH ×4 (05:19→23:53)
[2018-05-16 05:22] LABS: HEMATOCRIT 30.7 % (42.0-52.0); HEMOGLOBIN 10.2 G/DL (14.2-18.0); MEAN CORPUSCULAR VOLUME 93 FL (80-99); PLATELET COUNT 292 K/UL (150-450); RED CELL DISTRIBUTION WIDTH 14.9 % (11.6-14.8); WHITE BLOOD COUNT 21.4 K/UL (4.8-10.8)
[2018-05-16] MEDS: Hydrocortisone 100mg Inj IV SCH ×3 (05:43→21:34)
[2018-05-16 05:44] LABS: ALANINE AMINOTRANSFERASE 38 U/L (12-78); ALBUMIN 1.6 G/DL (3.4-5.0); ALBUMIN/GLOBULIN RATIO 0.4 (1.0-2.7); ALKALINE PHOSPHATASE 156 U/L (46-116); ANION GAP 19 mmol/L (5-15); ASPARTATE AMINO TRANSFERASE 64 U/L (15-37); BILIRUBIN,TOTAL 0.7 MG/DL (0.2-1.0); BLOOD UREA NITROGEN 117 mg/dL (7-18); CALCIUM 8.7 MG/DL (8.5-10.1); CARBON DIOXIDE 19 MMOL/L (21-32); CHLORIDE 93 MMOL/L (98-107); CREATININE 7.4 MG/DL (0.55-1.30); POTASSIUM 5.1 MMOL/L (3.5-5.1); SODIUM 131 MMOL/L (136-145)
--- NOTE | 2018-05-16 06:00 | NUR ---
NURSE NOTES: Pt continues on amio gtt 0.5 mg/hr , Cardizem gtt 6mg/hr, Phenylephrine @ 40 mcg/min. Pt noted to try to open eyes upon verbal command but still sedated. Will continue to monitor
[2018-05-16] MEDS ORDERED: Metoclopramide 10mg/2ml Inj IVP PRN (06:15)
--- NOTE | 2018-05-16 06:40 | NUR ---
NURSE NOTES: Called Lab and spoke with Sandra dietetic technician registered, Asked her about the collection of Aerobic perineal fluid, stated that it should be in the back. they will start on it today. Will have morning nurse follow up
--- NOTE | 2018-05-16 07:15 | NUR ---
HAND-OFF: Report given to Jenna AGUILA using SBAR. Pt continues on Amio and Cardizem gtt. Phenylephrine gtt continues @ 60 mcg/min. Abdominal dressing remains dry and intact at this time.
--- NOTE | 2018-05-16 07:30 | NUR ---
NURSE NOTES: Received patient from MINGO Emery. Patient observed bedside to be sedated. Patient is sleeping however, easily arousable however falls back to sleep quickly. Patient does not appear in any acute distress. When asked if patient was in any pain, patient nodded no. When asked if he felt improved from yesterday, he nodded yes. Patient appears alert and oriented however he is orally intubated and unable to speak. Patient is being monitored on the electrical design technician. VS 75/13, HR 75, RR 26, SPO2 97%. Patient is orally AC 16, TV 600, +5 Fio2 40%. Patient is tolerating, breath sounds are NL and oral care was performed. Patient is currently NPO. Patient is s/p Ex lap with with small bowel resection and clean out. Patient has abd dressing that is dry and intact. Patient is anuric. Patient is afebrile. Patient has RAC 18 and ADILENE 20 patent and intact. Patient has Amio 0.5 mg and Cardizem running at 6 mg/hr. Patient has a RFem Baljeet accessed with Florentino running 60 mcgs titrated to 80 and will quickly titrate to support BP. Patient has SCDs on. Safety measures are in place with bed locked in the lowest position side rails x 3 up. Will continue to monitor and follow plan of care.
--- NOTE | 2018-05-16 07:30 | NUR ---
RESPIRATORY NOTE: Pt intubated with ETT 7.5 @ 22cm lips line, secured by anchorfast. Pt placed on ventilator w/ settings: AC 16, 600VT, 40%, PEEP +5. B/S rosa. clear, nonproductive cough. Pt is waking up, follow commands, RN Jenna explained weaning plan in Greek, pt nodded understand the weaning plan. Started weaning pt on CPAP with PS 12, 40% FiO2, pt first breathing at >34bpm, then decreased down to 22-28bpm, saturated at 97%, HR 75 bpm. Alarms are set and audible. Vent plugged into red outlet, ambu bag at bedside. Pt in no apparent distress at this time. Will continue to monitor pt.
--- NOTE | 2018-05-16 07:45 | NUR ---
NURSE NOTES: Dr Stephenson returned the call to the PM RN. Per MD, wants to change orders from titrate off Florentino, start Levo and DC Cardizem. Stay on Amio 0.5. Will monitor closely. Wants Dig level and EKG.
--- NOTE | 2018-05-16 07:50 | NUR ---
RESPIRATORY NOTE: Put pt back on AC mode with the same previous settings per RN's request. Pt is diaphoretic, low BP. Pt in no apparent distress at this time. Will continue to monitor closely pt.
--- NOTE | 2018-05-16 08:26 | Pulmonolgy Critical Care Note ---
Critical Care - Asmt/Plan Problems: (1) Shock Assessment & Plan: Resolved (2) Hypoxemia Assessment & Plan: Improved (3) Elevated d-dimer Assessment & Plan: S/P neg CT-A (4) Hypotension Assessment & Plan: Resolved (5) Atrial fibrillation (6) ESRD (end stage renal disease) on dialysis (7) ACS (acute coronary syndrome) (8) Sacral decubitus ulcer, stage III (9) S/P cholecystectomy (10) Serratia sepsis (11) S/P exploratory laparotomy (12) Perforated viscus Assessment/Plan: -Post-op recs -Pain control/supportive care -Continue ventilatory support/settings reviewed -HD per renal -Per cards to switch FORTINO to LEVO, add Vaso 0.04 -Amio gtt per cards/EPS, off Dilt -Heparin held, resume when ok with surgery -Monitor for bleeding -Abx per ID, F/U Cx's -Continue HC to 25 TID and taper -FC D/W Dr. Chandler D/W RN and RT CCT 55 Critical Care - Objective Last 24 Hour Vital Signs Date Time Temp Pulse Resp B/P (MAP) Pulse Ox O2 Delivery O2 Flow Rate FiO2 05/16/18 07:50 76 22 40 05/16/18 07:30 75 27 40 05/16/18 07:19 75 34 40 05/16/18 07:17 77 21 40 05/16/18 07:00 77 21 85/13 (37) 95 05/16/18 06:30 76 22 109/13 (45) 97 05/16/18 06:00 77 18 125/17 (53) 96 05/16/18 05:30 76 21 126/22 (56) 95 05/16/18 05:19 77 114/40 05/16/18 05:18 77 20 40 05/16/18 05:00 90 20 107/30 (55) 97 05/16/18 04:30 90 19 117/31 (59) 97 05/16/18 04:00 Nasal Cannula 3.0 Nasal Cannula 3.0 05/16/18 04:00 75 05/16/18 04:00 98.1 85 16 105/10 (41) 99 05/16/18 04:00 40 05/16/18 03:30 74 16 94/18 (43) 97 12/27/18 03:04 75 16 40 05/16/18 03:00 79 16 73/26 (42) 97 05/16/18 02:58 75 69/27 05/16/18 02:30 75 16 69/27 (41) 97 05/16/18 02:00 75 16 72/22 (39) 97 05/16/18 01:30 75 16 80/35 (50) 97 05/16/18 01:06 76 16 40 05/16/18 01:05 76 98/43 05/16/18 01:00 76 16 100/39 (59) 97 05/16/18 00:45 97.9 75 16 98/43 (61) 98 05/16/18 00:30 75 18 93/35 (54) 98 05/16/18 00:15 76 17 93/35 (54) 96 05/16/18 00:00 Nasal Cannula 3.0 Nasal Cannula 3.0 05/16/18 00:00 40 05/16/18 00:00 76 17 81/33 (49) 96 05/16/18 00:00 77 05/15/18 23:59 75 79/30 05/15/18 23:45 97.9 76 17 80/18 (38) 96 05/15/18 23:32 75 16 Mechanical Ventilator 40 05/15/18 23:30 75 16 40 05/15/18 23:30 75 16 93/26 (48) 94 05/15/18 23:29 75 20 100 05/15/18 21:00 92 28 156/40 (78) 100 05/15/18 20:30 99 28 176/37 (83) 100 05/15/18 20:00 119 05/15/18 20:00 Nasal Cannula 3.0 Nasal Cannula 3.0 05/15/18 20:00 110 29 185/109 (134) 100 05/15/18 19:55 Nasal Cannula 3.0 32 05/15/18 19:55 100 Nasal Cannula 3.0 32 05/15/18 19:30 98.3 110 27 163/42 (82) 100 05/15/18 19:00 105 18 128/45 (72) 100 05/15/18 18:30 108 18 130/48 (75) 100 05/15/18 18:00 104 18 135/52 (79) 100 12/26/18 18:00 108 123/53 12/26/18 17:30 108 18 133/38 (69) 100 05/15/18 17:00 110 18 138/32 (67) 100 05/15/18 16:30 118 16 140/34 (69) 100 05/15/18 16:00 98.9 120 20 147/38 (74) 100 05/15/18 16:00 118 16 140/34 (69) 100 05/15/18 16:00 Nasal Cannula 3.0 Nasal Cannula 2.0 05/15/18 15:30 100 20 110/30 (56) 100 05/15/18 15:00 98 20 106/24 (51) 100 05/15/18 14:30 76 20 112/32 (58) 100 05/15/18 14:00 78 20 110/40 (63) 100 05/15/18 13:30 88 20 105/34 (57) 100 05/15/18 13:17 Nasal Cannula 05/15/18 13:15 118 05/15/18 13:00 90 20 110/40 (63) 100 05/15/18 12:30 94 20 118/48 (71) 100 05/15/18 12:18 142 161/55 05/15/18 12:05 142 167/39 05/15/18 12:00 Nasal Cannula 3.0 Nasal Cannula 2.0 05/15/18 12:00 98.8 144 20 161/55 (90) 100 05/15/18 11:00 150 20 118/35 (62) 100 05/15/18 10:29 Nasal Cannula 3.0 05/15/18 10:00 149 20 120/33 (62) 100 05/15/18 09:00 135 20 138/44 (75) 100 Status: sedated, other - intubated Condition: critical HEENT: atraumatic, normocephalic Lungs: rhonchi Heart: HR/BP unstable Abdomen: other - VELVET drain, wound dressed, hypoactive BS, + TTP Extremities: no C/C/E Decubiti: location - sacral Blood Sugars: BS controlled Critical Care - Subjective ROS Limited/Unobtainable: Yes ICU Day: 5 Intubation Day: 2 Interval Events: S/P ex lap and bowel resection Remain on vent post-op On 240 FORTINO Remain on Amio, off Dilt, off HEP Condition: critical IV Access: central EKG Rhythm: Atrial Flutter FI02: 40 Vent Support Breath Rate: 16 Vent Support Mode: AC Vent Tidal Volume: 600 Sputum Amount: Scant PEEP: 5.0 PIP: 25 Fluids: SLIV Drips: FORTINO @ 240 I&O: Intake and Output 05/15/18 05/16/18 19:00 07:00 Intake Total 399.14 ml 317.10 ml Output Total 0 ml 50 ml Balance 399.14 ml 267.10 ml IV Total 399.14 ml 317.10 ml Output Urine Total 0 ml 0 ml Drainage Total 50 ml Subjective: CROW ET-Tube: 7.5 ET Position: 22 Labs: Laboratory Tests Test 05/15/18 18:50 05/16/18 04:02 05/16/18 04:05 Prothrombin Time 13.0 SEC (9.30-11.50) H Prothromb Time International Ratio 1.2 (0.9-1.1) H Activated Partial Thromboplast Time 35 SEC (23-33) H 35 SEC (23-33) H Arterial Blood pH 7.381 (7.350-7.450) Arterial Blood Partial Pressure CO2 32.8 mmHg (35.0-45.0) L Arterial Blood Partial Pressure O2 79.8 mmHg (75.0-100.0) Arterial Blood HCO3 19.0 mmol/L (22.0-26.0) L Arterial Blood Oxygen Saturation 94.0 % (95-100) L Arterial Blood Base Excess -5.3 (-2-2) L Luiz Test Positive White Blood Count 21.4 K/UL (4.8-10.8) H Red Blood Count 3.30 M/UL (4.70-6.10) L Hemoglobin 10.2 G/DL (14.2-18.0) L Hematocrit 30.7 % (42.0-52.0) L Mean Corpuscular Volume 93 FL (80-99) Mean Corpuscular Hemoglobin 30.9 PG (27.0-31.0) Mean Corpuscular Hemoglobin Concent 33.2 G/DL (32.0-36.0) Red Cell Distribution Width 14.9 % (11.6-14.8) H Platelet Count 292 K/UL (150-450) Mean Platelet Volume 7.1 FL (6.5-10.1) Neutrophils (%) (Auto) % (45.0-75.0) Lymphocytes (%) (Auto) % (20.0-45.0) Monocytes (%) (Auto) % (1.0-10.0) Eosinophils (%) (Auto) % (0.0-3.0) Basophils (%) (Auto) % (0.0-2.0) Differential Total Cells Counted 100 Neutrophils % (Manual) 76 % (45-75) H Lymphocytes % (Manual) 3 % (20-45) L Monocytes % (Manual) 6 % (1-10) Eosinophils % (Manual) 0 % (0-3) Basophils % (Manual) 0 % (0-2) Band Neutrophils 15 % (0-8) H Platelet Estimate Adequate Platelet Morphology Normal Hypochromasia 1+ Anisocytosis 1+ Sodium Level 131 MMOL/L (136-145) L Potassium Level 5.1 MMOL/L (3.5-5.1) Chloride Level 93 MMOL/L (98-107) L Carbon Dioxide Level 19 MMOL/L (21-32) L Anion Gap 19 mmol/L (5-15) H Blood Urea Nitrogen 117 mg/dL (7-18) H Creatinine 7.4 MG/DL (0.55-1.30) H Estimat Glomerular Filtration Rate mL/min (>60) Glucose Level 250 MG/DL (74-106) H Lactic Acid Level 1.60 mmol/L (0.4-2.0) Calcium Level 8.7 MG/DL (8.5-10.1) Total Bilirubin 0.7 MG/DL (0.2-1.0) Aspartate Amino Transf (AST/SGOT) 64 U/L (15-37) H Alanine Aminotransferase (ALT/SGPT) 38 U/L (12-78) Alkaline Phosphatase 156 U/L (46-116) H Total Protein 5.8 G/DL (6.4-8.2) L Albumin 1.6 G/DL (3.4-5.0) L Globulin 4.2 g/dL Albumin/Globulin Ratio 0.4 (1.0-2.7) L Daryl Jones MD May 16, 2018 08:26
--- NOTE | 2018-05-16 08:58 | General Progress Note ---
Assessment/Plan Status: unchanged Assessment/Plan COVERING FOR DR. IRVIN ASSESSMENT AND RECOMMENDATIONS # Gram negative sepsis is on abx as per ID --> on broad spectrum abx --> on steriods as well per pulm/cc --> on vanc/cefepime as per id--> now changed to ceftriaxone # Lower extremity edema with an elevated BNP in a patient with renal failure on hemodialysis. --> Felice on hemodialysis per Dr. Arroyo. --> currently has improved # Chest pain, rule out acute coronary syndrome. --> Cardiology is following, appreciate recs, echo was reviewed --> Currently denies any chest pain, completely rule out ACS --> EKG showed old inferior and anterior wall AZ, but no ischemia. --> ECHO with normal LV function --> on heparin gtt 05/13 for potential pe, cta neg --> further anticoag per cards # End-stage renal disease, on hemodialysis and also hyponatremia. --> Nephro is following, appreciate recs. --> On intermittent HD # Anemia of chronic disease due to underlying chronic medical issues, multifactorial. --> Current Hgb >11, no w/u required at this time. --> Monitor for stability Subjective Date patient seen: May 15, 2018 ROS Limited/Unobtainable: Yes Hematologic/Lymphatic: Reports: anemia Allergies: Coded Allergies: No Known Allergies (Unverified , 11/12/12) Subjective 05/12: Pt resting in bed. No acute events. H/H stable. On abx. VS stable. 05/13: on pressors, on hep gtt, on steriods, abx, got hd, felice catheter in place 12:25: CT-A was negative, hep gtt as per cards, abg reviewed, moaning on exam, on ceftriaxone 05/15 :Pt remains in ICU. Currently undergoing HD. Pt on 2 cardiac drips for elevated Bp. WBC remains elevated. H/H stable. Objective Last 24 Hour Vital Signs Date Time Temp Pulse Resp B/P (MAP) Pulse Ox O2 Delivery O2 Flow Rate FiO2 05/16/18 07:50 76 22 40 05/16/18 07:30 75 27 40 05/16/18 07:19 75 34 40 05/16/18 07:17 77 21 40 05/16/18 07:00 77 21 85/13 (37) 95 05/16/18 06:30 76 22 109/13 (45) 97 05/16/18 06:00 77 18 125/17 (53) 96 05/16/18 05:30 76 21 126/22 (56) 95 05/16/18 05:19 77 114/40 05/16/18 05:18 77 20 40 05/16/18 05:00 90 20 107/30 (55) 97 05/16/18 04:30 90 19 117/31 (59) 97 05/16/18 04:00 Nasal Cannula 3.0 Nasal Cannula 3.0 05/16/18 04:00 75 05/16/18 04:00 98.1 85 16 105/10 (41) 99 05/16/18 04:00 40 05/16/18 03:30 74 16 94/18 (43) 97 05/16/18 03:04 75 16 40 05/16/18 03:00 79 16 73/26 (42) 97 05/16/18 02:58 75 69/27 05/16/18 02:30 75 16 69/27 (41) 97 05/16/18 02:00 75 16 72/22 (39) 97 05/16/18 01:30 75 16 80/35 (50) 97 05/16/18 01:06 76 16 40 05/16/18 01:05 76 98/43 05/16/18 01:00 76 16 100/39 (59) 97 05/16/18 00:45 97.9 75 16 98/43 (61) 98 05/16/18 00:30 75 18 93/35 (54) 98 05/16/18 00:15 76 17 93/35 (54) 96 05/16/18 00:00 Nasal Cannula 3.0 Nasal Cannula 3.0 05/16/18 00:00 40 05/16/18 00:00 76 17 81/33 (49) 96 05/16/18 00:00 77 05/15/18 23:59 75 79/30 05/15/18 23:45 97.9 76 17 80/18 (38) 96 05/15/18 23:32 75 16 Mechanical Ventilator 40 05/15/18 23:30 75 16 40 05/15/18 23:30 75 16 93/26 (48) 94 05/15/18 23:29 75 20 100 05/15/18 21:00 92 28 156/40 (78) 100 05/15/18 20:30 99 28 176/37 (83) 100 05/15/18 20:00 119 05/15/18 20:00 Nasal Cannula 3.0 Nasal Cannula 3.0 05/15/18 20:00 110 29 185/109 (134) 100 05/15/18 19:55 Nasal Cannula 3.0 32 05/15/18 19:55 100 Nasal Cannula 3.0 32 05/15/18 19:30 98.3 110 27 163/42 (82) 100 05/15/18 19:00 105 18 128/45 (72) 100 05/15/18 18:30 108 18 130/48 (75) 100 05/15/18 18:00 104 18 135/52 (79) 100 05/15/18 18:00 108 123/53 05/15/18 17:30 108 18 133/38 (69) 100 05/15/18 17:00 110 18 138/32 (67) 100 05/15/18 16:30 118 16 140/34 (69) 100 05/15/18 16:00 98.9 120 20 147/38 (74) 100 05/15/18 16:00 118 16 140/34 (69) 100 05/15/18 16:00 Nasal Cannula 3.0 Nasal Cannula 2.0 05/15/18 15:30 100 20 110/30 (56) 100 05/15/18 15:00 98 20 106/24 (51) 100 05/15/18 14:30 76 20 112/32 (58) 100 05/15/18 14:00 78 20 110/40 (63) 100 05/15/18 13:30 88 20 105/34 (57) 100 05/15/18 13:17 Nasal Cannula 05/15/18 13:15 118 05/15/18 13:00 90 20 110/40 (63) 100 05/15/18 12:30 94 20 118/48 (71) 100 05/15/18 12:18 142 161/55 05/15/18 12:05 142 167/39 05/15/18 12:00 Nasal Cannula 3.0 Nasal Cannula 2.0 05/15/18 12:00 98.8 144 20 161/55 (90) 100 05/15/18 11:00 150 20 118/35 (62) 100 05/15/18 10:29 Nasal Cannula 3.0 05/15/18 10:00 149 20 120/33 (62) 100 05/15/18 09:00 135 20 138/44 (75) 100 Intake and Output 05/15/18 05/16/18 19:00 07:00 Intake Total 399.14 ml 317.10 ml Output Total 0 ml 50 ml Balance 399.14 ml 267.10 ml IV Total 399.14 ml 317.10 ml Output Urine Total 0 ml 0 ml Drainage Total 50 ml Laboratory Tests 05/15/18 18:50: Prothrombin Time 13.0H, Prothromb Time International Ratio 1.2H, Activated Partial Thromboplast Time 35H 05/16/18 04:02: Arterial Blood pH 7.381, Arterial Blood Partial Pressure CO2 32.8L, Arterial Blood Partial Pressure O2 79.8, Arterial Blood HCO3 19.0L, Arterial Blood Oxygen Saturation 94.0L, Arterial Blood Base Excess -5.3L, Luiz Test Positive 05/16/18 04:05: Activated Partial Thromboplast Time 35H, White Blood Count 21.4H, Red Blood Count 3.30L, Hemoglobin 10.2L, Hematocrit 30.7L, Mean Corpuscular Volume 93, Mean Corpuscular Hemoglobin 30.9, Mean Corpuscular Hemoglobin Concent 33.2, Red Cell Distribution Width 14.9H, Platelet Count 292, Mean Platelet Volume 7.1, Neutrophils (%) (Auto) , Lymphocytes (%) (Auto) , Monocytes (%) (Auto) , Eosinophils (%) (Auto) , Basophils (%) (Auto) , Differential Total Cells Counted 100, Neutrophils % (Manual) 76H, Lymphocytes % (Manual) 3L, Monocytes % (Manual) 6, Eosinophils % (Manual) 0, Basophils % (Manual) 0, Band Neutrophils 15H, Platelet Estimate Adequate, Platelet Morphology Normal, Hypochromasia 1+, Anisocytosis 1+, Sodium Level 131L, Potassium Level 5.1, Chloride Level 93L, Carbon Dioxide Level 19L, Anion Gap 19H, Blood Urea Nitrogen 117H, Creatinine 7.4H, Estimat Glomerular Filtration Rate , Glucose Level 250H, Lactic Acid Level 1.60, Calcium Level 8.7, Total Bilirubin 0.7, Aspartate Amino Transf (AST/ SGOT) 64H, Alanine Aminotransferase (ALT/SGPT) 38, Alkaline Phosphatase 156H, Total Protein 5.8L, Albumin 1.6L, Globulin 4.2, Albumin/Globulin Ratio 0.4L Height (Feet): 5 Height (Inches): 4.00 Weight (Pounds): 168 Objective PHYSICAL EXAMINATION: VITAL SIGNS: Have been reviewed HEENT: PERRLA. NECK: Supple. No lymphadenopathy. CHEST: Clear to auscultation. CARDIOVASCULAR: Tachycardic. GASTROINTESTINAL: Distended. Positive bowel sounds. Nontender. No organomegaly. EXTREMITY: A 1+ edema. Reflexes are equal on both sides. Reinaldo Leon MD May 16, 2018 08:57
--- NOTE | 2018-05-16 09:17 | General Progress Note ---
Assessment/Plan Assessment/Plan (1) Abdominal pain (2) S/p Lap Cholecystectomy (3) Encephalopathy (4) ESRD on hemodialysis (5) S/p emergent exploratory laboratory small bowel resection omentectomy due to small bowel perforation in distal ileum Patient to be continued on Dilaudid at 1mg IV Q2H PRN severe pain. Dilaudid .5mg -1mg-2mg IV will be discontinued. Parameters to be continued. D/w Dr. Busby and he concurred. Subjective Date patient seen: May 16, 2018 Time patient seen: 07:30 - am ROS Limited/Unobtainable: Yes Allergies: Coded Allergies: No Known Allergies (Unverified , 11/12/12) Subjective Patient is in bed s/p emergent exploratory laboratory small bowel resection omentectomy due to small bowel perforation in distal ileum. Patient was not extubated after surgery and continues to intubated. On pressors no signs of pain d/w nurse. Was started on Dilaudid 0.5mg-1mg-2mg Q3H as needed. Objective Last 24 Hour Vital Signs Date Time Temp Pulse Resp B/P (MAP) Pulse Ox O2 Delivery O2 Flow Rate FiO2 05/16/18 08:51 100 05/16/18 08:46 83 17 40 05/16/18 07:50 76 22 40 05/16/18 07:30 75 27 40 05/16/18 07:19 75 34 40 05/16/18 07:17 77 21 40 05/16/18 07:00 77 21 85/13 (37) 95 05/16/18 06:30 76 22 109/13 (45) 97 05/16/18 06:00 77 18 125/17 (53) 96 05/16/18 05:30 76 21 126/22 (56) 95 05/16/18 05:19 77 114/40 05/16/18 05:18 77 20 40 05/16/18 05:00 90 20 107/30 (55) 97 05/16/18 04:30 90 19 117/31 (59) 97 05/16/18 04:00 Nasal Cannula 3.0 Nasal Cannula 3.0 05/16/18 04:00 75 05/16/18 04:00 98.1 85 16 105/10 (41) 99 05/16/18 04:00 40 12/27/18 03:30 74 16 94/18 (43) 97 05/16/18 03:04 75 16 40 05/16/18 03:00 79 16 73/26 (42) 97 05/16/18 02:58 75 69/27 05/16/18 02:30 75 16 69/27 (41) 97 05/16/18 02:00 75 16 72/22 (39) 97 05/16/18 01:30 75 16 80/35 (50) 97 05/16/18 01:06 76 16 40 05/16/18 01:05 76 98/43 05/16/18 01:00 76 16 100/39 (59) 97 05/16/18 00:45 97.9 75 16 98/43 (61) 98 05/16/18 00:30 75 18 93/35 (54) 98 05/16/18 00:15 76 17 93/35 (54) 96 05/16/18 00:00 Nasal Cannula 3.0 Nasal Cannula 3.0 05/16/18 00:00 40 05/16/18 00:00 76 17 81/33 (49) 96 05/16/18 00:00 77 05/15/18 23:59 75 79/30 05/15/18 23:45 97.9 76 17 80/18 (38) 96 05/15/18 23:32 75 16 Mechanical Ventilator 40 05/15/18 23:30 75 16 40 05/15/18 23:30 75 16 93/26 (48) 94 05/15/18 23:29 75 20 100 05/15/18 21:00 92 28 156/40 (78) 100 05/15/18 20:30 99 28 176/37 (83) 100 05/15/18 20:00 119 05/15/18 20:00 Nasal Cannula 3.0 Nasal Cannula 3.0 05/15/18 20:00 110 29 185/109 (134) 100 05/15/18 19:55 Nasal Cannula 3.0 32 05/15/18 19:55 100 Nasal Cannula 3.0 32 05/15/18 19:30 98.3 110 27 163/42 (82) 100 05/15/18 19:00 105 18 128/45 (72) 100 05/15/18 18:30 108 18 130/48 (75) 100 05/15/18 18:00 104 18 135/52 (79) 100 05/15/18 18:00 108 123/53 05/15/18 17:30 108 18 133/38 (69) 100 05/15/18 17:00 110 18 138/32 (67) 100 05/15/18 16:30 118 16 140/34 (69) 100 05/15/18 16:00 98.9 120 20 147/38 (74) 100 05/15/18 16:00 118 16 140/34 (69) 100 05/15/18 16:00 Nasal Cannula 3.0 Nasal Cannula 2.0 05/15/18 15:30 100 20 110/30 (56) 100 05/15/18 15:00 98 20 106/24 (51) 100 05/15/18 14:30 76 20 112/32 (58) 100 05/15/18 14:00 78 20 110/40 (63) 100 05/15/18 13:30 88 20 105/34 (57) 100 05/15/18 13:17 Nasal Cannula 05/15/18 13:15 118 05/15/18 13:00 90 20 110/40 (63) 100 05/15/18 12:30 94 20 118/48 (71) 100 05/15/18 12:18 142 161/55 05/15/18 12:05 142 167/39 05/15/18 12:00 Nasal Cannula 3.0 Nasal Cannula 2.0 05/15/18 12:00 98.8 144 20 161/55 (90) 100 05/15/18 11:00 150 20 118/35 (62) 100 05/15/18 10:29 Nasal Cannula 3.0 05/15/18 10:00 149 20 120/33 (62) 100 Intake and Output 05/15/18 05/16/18 19:00 07:00 Intake Total 399.14 ml 317.10 ml Output Total 0 ml 50 ml Balance 399.14 ml 267.10 ml IV Total 399.14 ml 317.10 ml Output Urine Total 0 ml 0 ml Drainage Total 50 ml Laboratory Tests 05/15/18 18:50: Prothrombin Time 13.0H, Prothromb Time International Ratio 1.2H, Activated Partial Thromboplast Time 35H 05/16/18 04:02: Arterial Blood pH 7.381, Arterial Blood Partial Pressure CO2 32.8L, Arterial Blood Partial Pressure O2 79.8, Arterial Blood HCO3 19.0L, Arterial Blood Oxygen Saturation 94.0L, Arterial Blood Base Excess -5.3L, Luiz Test Positive 05/16/18 04:05: Activated Partial Thromboplast Time 35H, White Blood Count 21.4H, Red Blood Count 3.30L, Hemoglobin 10.2L, Hematocrit 30.7L, Mean Corpuscular Volume 93, Mean Corpuscular Hemoglobin 30.9, Mean Corpuscular Hemoglobin Concent 33.2, Red Cell Distribution Width 14.9H, Platelet Count 292, Mean Platelet Volume 7.1, Neutrophils (%) (Auto) , Lymphocytes (%) (Auto) , Monocytes (%) (Auto) , Eosinophils (%) (Auto) , Basophils (%) (Auto) , Differential Total Cells Counted 100, Neutrophils % (Manual) 76H, Lymphocytes % (Manual) 3L, Monocytes % (Manual) 6, Eosinophils % (Manual) 0, Basophils % (Manual) 0, Band Neutrophils 15H, Platelet Estimate Adequate, Platelet Morphology Normal, Hypochromasia 1+, Anisocytosis 1+, Sodium Level 131L, Potassium Level 5.1, Chloride Level 93L, Carbon Dioxide Level 19L, Anion Gap 19H, Blood Urea Nitrogen 117H, Creatinine 7.4H, Estimat Glomerular Filtration Rate , Glucose Level 250H, Hemoglobin A1c [ Pending], Lactic Acid Level 1.60, Calcium Level 8.7, Total Bilirubin 0.7, Aspartate Amino Transf (AST/SGOT) 64H, Alanine Aminotransferase (ALT/SGPT) 38, Alkaline Phosphatase 156H, Total Protein 5.8L, Albumin 1.6L, Globulin 4.2, Albumin/Globulin Ratio 0.4L Height (Feet): 5 Height (Inches): 4.00 Weight (Pounds): 168 Objective GENERAL: Intubated. LUNGS: Decreased breath sounds bilaterally. HEART: S1 S2 Regular. ABDOMEN: Tenderness to palpation. Bandages and drain noted. EXTREMITIES: No cyanosis. No clubbing. Sid Holland May 16, 2018 09:17
--- NOTE | 2018-05-16 09:17 | NUR ---
RADIOLOGY DEPT CHEST X-RAY DONE.-P.DYE
[2018-05-16] MEDS: Pantoprazole Inj IVP SCH ×2 (09:41→20:26)
--- NOTE | 2018-05-16 10:01 | Cardiac Electrophysiology PN ---
Assessment/Plan Assessment/Plan 1. Atrial fib/flutter with RVR . DC Cardizem drip and on Amiodrip. Dig level 2.5 today. 2. Chest pain. No MA. 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 ECHO with normal LV function 3. End-stage renal disease, on hemodialysis per Dr. Arroyo. 4. Septic shock, On levophed. Was on Midodrine 5 tid. But now NPO 5. History of kidney stones. 6. History of psychiatric problems, dementia. 7. Hx of lap matthew. S/P SB resection 05/15/18 with drain 8. Respiratory failure. Now intubated on the vent DW RN Subjective Subjective In ICU s/p Small bowel resection on Amiodarone and Levophed drip. HR around 100. Objective Last 24 Hour Vital Signs Date Time Temp Pulse Resp B/P (MAP) Pulse Ox O2 Delivery O2 Flow Rate FiO2 05/16/18 09:41 88/66 05/16/18 08:51 100 05/16/18 08:46 83 17 40 05/16/18 07:50 76 22 40 05/16/18 07:30 75 27 40 05/16/18 07:19 75 34 40 05/16/18 07:17 77 21 40 05/16/18 07:00 77 21 85/13 (37) 95 05/16/18 06:30 76 22 109/13 (45) 97 05/16/18 06:00 77 18 125/17 (53) 96 05/16/18 05:30 76 21 126/22 (56) 95 05/16/18 05:19 77 114/40 05/16/18 05:18 77 20 40 05/16/18 05:00 90 20 107/30 (55) 97 05/16/18 04:30 90 19 117/31 (59) 97 05/16/18 04:00 Nasal Cannula 3.0 Nasal Cannula 3.0 05/16/18 04:00 75 05/16/18 04:00 98.1 85 16 105/10 (41) 99 05/16/18 04:00 40 05/16/18 03:30 74 16 94/18 (43) 97 05/16/18 03:04 75 16 40 05/16/18 03:00 79 16 73/26 (42) 97 05/16/18 02:58 75 69/27 05/16/18 02:30 75 16 69/27 (41) 97 05/16/18 02:00 75 16 72/22 (39) 97 05/16/18 01:30 75 16 80/35 (50) 97 05/16/18 01:06 76 16 40 05/16/18 01:05 76 98/43 05/16/18 01:00 76 16 100/39 (59) 97 05/16/18 00:45 97.9 75 16 98/43 (61) 98 05/16/18 00:30 75 18 93/35 (54) 98 05/16/18 00:15 76 17 93/35 (54) 96 05/16/18 00:00 Nasal Cannula 3.0 Nasal Cannula 3.0 05/16/18 00:00 40 05/16/18 00:00 76 17 81/33 (49) 96 05/16/18 00:00 77 05/15/18 23:59 75 79/30 05/15/18 23:45 97.9 76 17 80/18 (38) 96 05/15/18 23:32 75 16 Mechanical Ventilator 40 05/15/18 23:30 75 16 40 05/15/18 23:30 75 16 93/26 (48) 94 05/15/18 23:29 75 20 100 05/15/18 21:00 92 28 156/40 (78) 100 05/15/18 20:30 99 28 176/37 (83) 100 05/15/18 20:00 119 05/15/18 20:00 Nasal Cannula 3.0 Nasal Cannula 3.0 05/15/18 20:00 110 29 185/109 (134) 100 05/15/18 19:55 Nasal Cannula 3.0 32 05/15/18 19:55 100 Nasal Cannula 3.0 32 05/15/18 19:30 98.3 110 27 163/42 (82) 100 05/15/18 19:00 105 18 128/45 (72) 100 05/15/18 18:30 108 18 130/48 (75) 100 05/15/18 18:00 104 18 135/52 (79) 100 05/15/18 18:00 108 123/53 05/15/18 17:30 108 18 133/38 (69) 100 05/15/18 17:00 110 18 138/32 (67) 100 05/15/18 16:30 118 16 140/34 (69) 100 05/15/18 16:00 98.9 120 20 147/38 (74) 100 05/15/18 16:00 118 16 140/34 (69) 100 05/15/18 16:00 Nasal Cannula 3.0 Nasal Cannula 2.0 05/15/18 15:30 100 20 110/30 (56) 100 05/15/18 15:00 98 20 106/24 (51) 100 05/15/18 14:30 76 20 112/32 (58) 100 05/15/18 14:00 78 20 110/40 (63) 100 05/15/18 13:30 88 20 105/34 (57) 100 05/15/18 13:17 Nasal Cannula 05/15/18 13:15 118 05/15/18 13:00 90 20 110/40 (63) 100 05/15/18 12:30 94 20 118/48 (71) 100 05/15/18 12:18 142 161/55 05/15/18 12:05 142 167/39 05/15/18 12:00 Nasal Cannula 3.0 Nasal Cannula 2.0 05/15/18 12:00 98.8 144 20 161/55 (90) 100 05/15/18 11:00 150 20 118/35 (62) 100 05/15/18 10:29 Nasal Cannula 3.0 05/15/18 10:00 149 20 120/33 (62) 100 Intake and Output 05/15/18 05/16/18 19:00 07:00 Intake Total 399.14 ml 317.10 ml Output Total 0 ml 50 ml Balance 399.14 ml 267.10 ml IV Total 399.14 ml 317.10 ml Output Urine Total 0 ml 0 ml Drainage Total 50 ml Laboratory Tests Test 05/15/18 18:50 05/16/18 04:02 05/16/18 04:05 05/16/18 07:50 Prothrombin Time 13.0 SEC (9.30-11.50) H Prothromb Time International Ratio 1.2 (0.9-1.1) H Activated Partial Thromboplast Time 35 SEC (23-33) H 35 SEC (23-33) H Arterial Blood pH 7.381 (7.350-7.450) Arterial Blood Partial Pressure CO2 32.8 mmHg (35.0-45.0) L Arterial Blood Partial Pressure O2 79.8 mmHg (75.0-100.0) Arterial Blood HCO3 19.0 mmol/L (22.0-26.0) L Arterial Blood Oxygen Saturation 94.0 % (95-100) L Arterial Blood Base Excess -5.3 (-2-2) L Luiz Test Positive White Blood Count 21.4 K/UL (4.8-10.8) H Red Blood Count 3.30 M/UL (4.70-6.10) L Hemoglobin 10.2 G/DL (14.2-18.0) L Hematocrit 30.7 % (42.0-52.0) L Mean Corpuscular Volume 93 FL (80-99) Mean Corpuscular Hemoglobin 30.9 PG (27.0-31.0) Mean Corpuscular Hemoglobin Concent 33.2 G/DL (32.0-36.0) Red Cell Distribution Width 14.9 % (11.6-14.8) H Platelet Count 292 K/UL (150-450) Mean Platelet Volume 7.1 FL (6.5-10.1) Neutrophils (%) (Auto) % (45.0-75.0) Lymphocytes (%) (Auto) % (20.0-45.0) Monocytes (%) (Auto) % (1.0-10.0) Eosinophils (%) (Auto) % (0.0-3.0) Basophils (%) (Auto) % (0.0-2.0) Differential Total Cells Counted 100 Neutrophils % (Manual) 76 % (45-75) H Lymphocytes % (Manual) 3 % (20-45) L Monocytes % (Manual) 6 % (1-10) Eosinophils % (Manual) 0 % (0-3) Basophils % (Manual) 0 % (0-2) Band Neutrophils 15 % (0-8) H Platelet Estimate Adequate Platelet Morphology Normal Hypochromasia 1+ Anisocytosis 1+ Sodium Level 131 MMOL/L (136-145) L Potassium Level 5.1 MMOL/L (3.5-5.1) Chloride Level 93 MMOL/L (98-107) L Carbon Dioxide Level 19 MMOL/L (21-32) L Anion Gap 19 mmol/L (5-15) H Blood Urea Nitrogen 117 mg/dL (7-18) H Creatinine 7.4 MG/DL (0.55-1.30) H Estimat Glomerular Filtration Rate mL/min (>60) Glucose Level 250 MG/DL (74-106) H Hemoglobin A1c 6.0 % (4.3-6.0) Lactic Acid Level 1.60 mmol/L (0.4-2.0) Calcium Level 8.7 MG/DL (8.5-10.1) Total Bilirubin 0.7 MG/DL (0.2-1.0) Aspartate Amino Transf (AST/SGOT) 64 U/L (15-37) H Alanine Aminotransferase (ALT/SGPT) 38 U/L (12-78) Alkaline Phosphatase 156 U/L (46-116) H Total Protein 5.8 G/DL (6.4-8.2) L Albumin 1.6 G/DL (3.4-5.0) L Globulin 4.2 g/dL Albumin/Globulin Ratio 0.4 (1.0-2.7) L Digoxin Level 2.5 NG/ML (0.5-2.0) H Objective HEENT: PERRL/EOMI, Orally intubated Rhythm: ST, Afib Cardiovascular: normal peripheral pulses, regularly irregular, tachycardia Respiratory/Chest: chest wall non-tender, lungs clear, normal breath sounds, no respiratory distress Abdomen: Post op.with one drain Extremities: No edema Right groin dialysis catheter Everett Stephenson MD May 16, 2018 10:01
--- NOTE | 2018-05-16 10:11 | NUR ---
ST NOTE: PT CURRENTLY INTUBATED. D/C ST EVAL FOR NOW. PLEASE RE-ORDER ST EVAL WHEN PT IS MEDICALLY STABLE. RN NOTIFIED.
--- NOTE | 2018-05-16 10:45 | NUR ---
RESPIRATORY NOTE: DR. Chandler put pt on SIVM 16-600ml- 40%FiO2- peep of 5- PS 10. HR 112bpm, RR 35 bpm, saturates at 97%. [facility] [place] notified. Will continue to monitor pt closely.
--- NOTE | 2018-05-16 10:51 | Infectious Diseases Prog Note ---
Assessment/Plan Assessment/Plan A: 1. serratia , Enterobacter sepsis 2. VRE colonization 3. diabetes mellitus 4. hypertension 5. 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 leucocytosis 6. A fib with RVR 7. Small bowel perforation 8. Perioperative respiratory failure P 1. continue Ceftriaxone & Flagyl 2. case was D/W surgeon Subjective ROS Limited/Unobtainable: Yes Gastrointestinal/Abdominal: Reports: other - had exploratory laparotomy yesterday Allergies: Coded Allergies: No Known Allergies (Unverified , 11/12/12) Objective Vital Signs Last 24 Hour Vital Signs Date Time Temp Pulse Resp B/P (MAP) Pulse Ox O2 Delivery O2 Flow Rate FiO2 05/16/18 09:41 88/66 05/16/18 08:51 100 05/16/18 08:46 83 17 40 05/16/18 07:50 76 22 40 05/16/18 07:30 75 27 40 05/16/18 07:19 75 34 40 05/16/18 07:17 77 21 40 05/16/18 07:00 77 21 85/13 (37) 95 05/16/18 06:30 76 22 109/13 (45) 97 05/16/18 06:00 77 18 125/17 (53) 96 05/16/18 05:30 76 21 126/22 (56) 95 05/16/18 05:19 77 114/40 05/16/18 05:18 77 20 40 05/16/18 05:00 90 20 107/30 (55) 97 05/16/18 04:30 90 19 117/31 (59) 97 05/16/18 04:00 Nasal Cannula 3.0 Nasal Cannula 3.0 05/16/18 04:00 75 05/16/18 04:00 98.1 85 16 105/10 (41) 99 05/16/18 04:00 40 05/16/18 03:30 74 16 94/18 (43) 97 05/16/18 03:04 75 16 40 05/16/18 03:00 79 16 73/26 (42) 97 05/16/18 02:58 75 69/27 05/16/18 02:30 75 16 69/27 (41) 97 05/16/18 02:00 75 16 72/22 (39) 97 05/16/18 01:30 75 16 80/35 (50) 97 05/16/18 01:06 76 16 40 05/16/18 01:05 76 98/43 05/16/18 01:00 76 16 100/39 (59) 97 05/16/18 00:45 97.9 75 16 98/43 (61) 98 05/16/18 00:30 75 18 93/35 (54) 98 05/16/18 00:15 76 17 93/35 (54) 96 05/16/18 00:00 Nasal Cannula 3.0 Nasal Cannula 3.0 05/16/18 00:00 40 05/16/18 00:00 76 17 81/33 (49) 96 05/16/18 00:00 77 05/15/18 23:59 75 79/30 05/15/18 23:45 97.9 76 17 80/18 (38) 96 05/15/18 23:32 75 16 Mechanical Ventilator 40 05/15/18 23:30 75 16 40 05/15/18 23:30 75 16 93/26 (48) 94 05/15/18 23:29 75 20 100 05/15/18 21:00 92 28 156/40 (78) 100 05/15/18 20:30 99 28 176/37 (83) 100 05/15/18 20:00 119 05/15/18 20:00 Nasal Cannula 3.0 Nasal Cannula 3.0 05/15/18 20:00 110 29 185/109 (134) 100 05/15/18 19:55 Nasal Cannula 3.0 32 05/15/18 19:55 100 Nasal Cannula 3.0 32 05/15/18 19:30 98.3 110 27 163/42 (82) 100 05/15/18 19:00 105 18 128/45 (72) 100 05/15/18 18:30 108 18 130/48 (75) 100 05/15/18 18:00 104 18 135/52 (79) 100 05/15/18 18:00 108 123/53 05/15/18 17:30 108 18 133/38 (69) 100 05/15/18 17:00 110 18 138/32 (67) 100 05/15/18 16:30 118 16 140/34 (69) 100 05/15/18 16:00 98.9 120 20 147/38 (74) 100 05/15/18 16:00 118 16 140/34 (69) 100 05/15/18 16:00 Nasal Cannula 3.0 Nasal Cannula 2.0 05/15/18 15:30 100 20 110/30 (56) 100 05/15/18 15:00 98 20 106/24 (51) 100 05/15/18 14:30 76 20 112/32 (58) 100 05/15/18 14:00 78 20 110/40 (63) 100 05/15/18 13:30 88 20 105/34 (57) 100 05/15/18 13:17 Nasal Cannula 05/15/18 13:15 118 05/15/18 13:00 90 20 110/40 (63) 100 05/15/18 12:30 94 20 118/48 (71) 100 05/15/18 12:18 142 161/55 05/15/18 12:05 142 167/39 05/15/18 12:00 Nasal Cannula 3.0 Nasal Cannula 2.0 05/15/18 12:00 98.8 144 20 161/55 (90) 100 05/15/18 11:00 150 20 118/35 (62) 100 Height (Feet): 5 Height (Inches): 4.00 Weight (Pounds): 168 HEENT: other - orally intubated Respiratory/Chest: lungs clear, other - on ventilator Cardiovascular: normal rate, other - R femoral access Abdomen: other - dressing & drain Extremities: no edema Neurologic/Psychiatric: other - sedated Laboratory Tests Test 05/15/18 18:50 05/16/18 04:02 05/16/18 04:05 05/16/18 07:50 Prothrombin Time 13.0 SEC (9.30-11.50) H Prothromb Time International Ratio 1.2 (0.9-1.1) H Activated Partial Thromboplast Time 35 SEC (23-33) H 35 SEC (23-33) H Arterial Blood pH 7.381 (7.350-7.450) Arterial Blood Partial Pressure CO2 32.8 mmHg (35.0-45.0) L Arterial Blood Partial Pressure O2 79.8 mmHg (75.0-100.0) Arterial Blood HCO3 19.0 mmol/L (22.0-26.0) L Arterial Blood Oxygen Saturation 94.0 % (95-100) L Arterial Blood Base Excess -5.3 (-2-2) L Luiz Test Positive White Blood Count 21.4 K/UL (4.8-10.8) H Red Blood Count 3.30 M/UL (4.70-6.10) L Hemoglobin 10.2 G/DL (14.2-18.0) L Hematocrit 30.7 % (42.0-52.0) L Mean Corpuscular Volume 93 FL (80-99) Mean Corpuscular Hemoglobin 30.9 PG (27.0-31.0) Mean Corpuscular Hemoglobin Concent 33.2 G/DL (32.0-36.0) Red Cell Distribution Width 14.9 % (11.6-14.8) H Platelet Count 292 K/UL (150-450) Mean Platelet Volume 7.1 FL (6.5-10.1) Neutrophils (%) (Auto) % (45.0-75.0) Lymphocytes (%) (Auto) % (20.0-45.0) Monocytes (%) (Auto) % (1.0-10.0) Eosinophils (%) (Auto) % (0.0-3.0) Basophils (%) (Auto) % (0.0-2.0) Differential Total Cells Counted 100 Neutrophils % (Manual) 76 % (45-75) H Lymphocytes % (Manual) 3 % (20-45) L Monocytes % (Manual) 6 % (1-10) Eosinophils % (Manual) 0 % (0-3) Basophils % (Manual) 0 % (0-2) Band Neutrophils 15 % (0-8) H Platelet Estimate Adequate Platelet Morphology Normal Hypochromasia 1+ Anisocytosis 1+ Sodium Level 131 MMOL/L (136-145) L Potassium Level 5.1 MMOL/L (3.5-5.1) Chloride Level 93 MMOL/L (98-107) L Carbon Dioxide Level 19 MMOL/L (21-32) L Anion Gap 19 mmol/L (5-15) H Blood Urea Nitrogen 117 mg/dL (7-18) H Creatinine 7.4 MG/DL (0.55-1.30) H Estimat Glomerular Filtration Rate mL/min (>60) Glucose Level 250 MG/DL (74-106) H Hemoglobin A1c 6.0 % (4.3-6.0) Lactic Acid Level 1.60 mmol/L (0.4-2.0) Calcium Level 8.7 MG/DL (8.5-10.1) Total Bilirubin 0.7 MG/DL (0.2-1.0) Aspartate Amino Transf (AST/SGOT) 64 U/L (15-37) H Alanine Aminotransferase (ALT/SGPT) 38 U/L (12-78) Alkaline Phosphatase 156 U/L (46-116) H Total Protein 5.8 G/DL (6.4-8.2) L Albumin 1.6 G/DL (3.4-5.0) L Globulin 4.2 g/dL Albumin/Globulin Ratio 0.4 (1.0-2.7) L Digoxin Level 2.5 NG/ML (0.5-2.0) H Current Medications Medications (Trade) Dose Ordered Sig/Min Route PRN Reason Start Time Stop Time Status Last Admin Dose Admin Acetaminophen (Tylenol) 650 mg Q4H PRN ORAL Mild Pain/Temp > 100.5 05/12/18 15:30 06/09/18 15:29 05/13/18 16:39 Amiodarone HCl 900 mg/Dextrose 500 ml @ 0 mls/hr Q24H IV 05/15/18 11:30 05/16/18 11:29 05/15/18 18:55 Ceftriaxone Sodium 1 gm/ Dextrose 55 ml @ 110 mls/hr Q24H IVPB 05/14/18 11:00 05/21/18 10:59 05/15/18 11:46 Chlorhexidine Gluconate (Tatyana-Hex 2%) 1 applic DAILY@2000 TOPIC 05/12/18 20:00 06/11/18 19:59 05/15/18 19:33 Dextrose (Dextrose 50%) 25 ml Q30M PRN IV Hypoglycemia 05/16/18 08:45 06/15/18 08:44 Dextrose (Dextrose 50%) 50 ml Q30M PRN IV Hypoglycemia 05/16/18 08:45 06/15/18 08:44 Diphenhydramine HCl (Benadryl) 12.5 mg Q6H PRN IVP Itching/Pruritis 05/15/18 23:30 06/14/18 23:29 Fentanyl Citrate 2500 mcg/Sodium Chloride 250 ml @ 0 mls/hr Q24H IV 05/16/18 00:30 05/23/18 00:29 Heparin Sodium/ Dextrose 500 ml @ 21.409 mls/ hr ADJUST PER PROTOCOL IV 05/14/18 13:41 06/13/18 13:40 05/14/18 13:52 Hydralazine HCl (Apresoline) 10 mg Q4H PRN IV bp over 160 syst 05/14/18 12:00 06/13/18 11:59 Hydrocortisone (Solu-CORTEF) 25 mg EVERY 8 HOURS IV 05/15/18 14:00 06/11/18 21:59 05/16/18 05:43 Hydromorphone HCl (Dilaudid) 1 mg Q2H PRN IVP Severe Pain (Pain Scale 7-10) 05/16/18 10:00 05/21/18 09:14 Insulin Aspart (NovoLOG) BEFORE MEALS AND HS SUBQ 05/16/18 11:30 06/15/18 11:29 Metoclopramide HCl (Reglan) 10 mg Q6H PRN IVP Nausea & Vomiting 05/16/18 06:15 06/10/18 15:29 Metoprolol Tartrate (Lopressor) 5 mg Q6HR IVP 05/14/18 12:00 06/13/18 11:59 05/15/18 12:18 Metronidazole 100 ml @ 100 mls/hr Q8HR IVPB 05/15/18 15:00 05/22/18 14:59 05/16/18 05:43 Midazolam HCl 50 mg/Sodium Chloride 100 ml @ 0 mls/hr Q24H IV 05/16/18 00:30 06/15/18 00:29 Midodrine (Pro-Amatine) 5 mg THREE TIMES A DAY ORAL 05/15/18 13:00 06/14/18 12:59 Norepinephrine Bitartrate 4 mg/ Dextrose 250 ml @ 0 mls/hr Q24H IV 05/16/18 08:00 06/15/18 07:59 05/16/18 09:41 Ondansetron HCl (Zofran) 4 mg Q6H PRN IVP Nausea & Vomiting 05/15/18 23:30 06/14/18 23:29 Pantoprazole (Protonix) 40 mg EVERY 12 HOURS IVP 05/12/18 21:00 06/10/18 20:59 05/16/18 09:41 Phenylephrine HCl 50 mg/Dextrose 250 ml @ 0 mls/hr Q24H IV 05/16/18 02:30 06/15/18 02:29 05/16/18 02:58 Romie Hooks MD May 16, 2018 10:51
[2018-05-16] MEDS ORDERED: Amiodarone 900 MG in D5W 500ml 482 ML IV SCH (11:30)
--- NOTE | 2018-05-16 11:59 | NUR ---
RESPIRATORY NOTE: Put pt back on AC mode with the same previous settings per RN's request due to high HR, RR > 35bpm, and pt is diaphoretic. RN is at bedside. Will continue to monitor pt closely.
[2018-05-16] MEDS: cefTRIAXone 1 GM in D5W 55 ML IVPB SCH (12:08)
[2018-05-16] MEDS: Heparin 25,000u/D5W 500ml 500 ML IV SCH (12:14)
--- NOTE | 2018-05-16 12:17 | Diagnostic Imaging Report ---
Indication: Respiratory failure Technique: XRAY Chest 1v Comparison: 05/12/2018 Findings: Interval placement of a tracheal tube. Tip of the tube at the level of clavicles, approximately 6.3 cm above the jacy. Low lung volumes with right basilar airspace opacities. Possibility of a right pleural effusion not excluded. No pneumothorax. Heart size and mediastinal contours stable. Evidence of prior coronary arterial stenting. Osseous structures stable. Impression: * Interval endotracheal intubation. Tip of the ET tube at the level of clavicles, approximately 6.3 cm below level of jacy. Advancement by approximately 2 cm recommended for more optimal positioning. This is discussed the patient's treating ICU nurse via telephone conversation the morning of 05/16/2018. * Patchy right basilar airspace opacities and probable small right pleural effusion. * Lucency under the left diaphragm likely related to known pneumoperitoneum based on CT scan from one day prior. Patient also with recent exploratory laparotomy.
[2018-05-16] MEDS: NovoLOG Insulin Flexpen SUBQ SCH ×3 (12:18→20:28)
--- NOTE | 2018-05-16 12:20 | NUR ---
NURSE NOTES: Patient observed bedside to be drowsy. Patient is more awake and alert however still continues to be slightly drowsy. Patient is easily arousable, opens eyes when spoken to and follows commands and responds with nodding yes or now. Patient does not appear in any acute distress. When asked if patient was in any pain, patient nodded no. Patient is being monitored on the cardiac care unit nurse. VS have been unstable that have necessitated titrated off Florentino and titrating up on Levo at 20 mcgs. Patient has been hemodynamically unstable that requires close monitoring. Patient is orally AC 16, TV 600, +5 Fio2 40%. Patient is tolerating and oral care was performed. Patient continues to be NPO. Patient's VELVET drain from s/p Ex lap with with small bowel resection and clean out is draining serosanguineous fluid. Patient has abd dressing that is dry and intact. Patient has Amio 0.5 mg running for tx of aFib. Patient has a RFem Baljeet accessed with Levo running. Safety measures are in place with bed locked in the lowest position side rails x 3 up. Will continue to monitor and follow plan of care.
--- NOTE | 2018-05-16 12:45 | 48 Hour Post Anesthesia Eval ---
Post Anesthesia Evaluation Procedure: Exploratory Laparotomy, Bowel Resection Date of Evaluation: May 16, 2018 Airway: patent Nausea: No Vomiting: No Pain Intensity: 0 Hydration Status: adequate Cardiopulmonary Status: at baseline Mental Status/LOC: patient returned to baseline Post-Anesthesia Complications: 0 Follow-up care needed: N/A - further care as per primary team Unique Reynolds MD May 16, 2018 12:45
--- NOTE | 2018-05-16 14:00 | NUR ---
PT NOTE: Received MD order for PT evaluation. Per Jerri matthews RN patient unstable at this time, not appropriate for PT evaluation. Will re-attempt tomorrow.
--- NOTE | 2018-05-16 14:29 | NUR ---
Social Service Note LENA obtained the phone number of patient's sister Jeannie Hernandez in [facility] [place] [phone] from patient's friend Chris Granado. SW provided update. Patient's sister visited patient about a month ago. Sister would like to be involved in the decision making of patient if needed in the future. SW provided sister SW contact information and ICU number. 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 SW informed primary nurse. Addendum: 05/16/18 at 1447 by LUKAS FRANCISCO Yanet Melton [phone] [facility] [place]
--- NOTE | 2018-05-16 15:00 | NUR ---
NURSE NOTES: Per Dr Dina MD wants a bladder scan to be done. Bladder scan was performed and resulted x 4 was 0 ml each time. Patient is truly anuric. Will report to the PM RN.
--- NOTE | 2018-05-16 15:27 | Nephrology Progress Note ---
Assessment/Plan Problem List: (1) ESRD (end stage renal disease) on dialysis (2) Hyponatremia (3) Major depression (4) Nausea & vomiting (5) H/O abdominal surgery Assessment: recent (6) Perforated bowel Assessment recent abdominal surgery hemodynamically stablized over night Presents with CHF and Low Na ESRD ACS DM HTN h/o GI bleed Depression Plan dialysed 05/15 Has abd surgery 05/15 Perforated bowel Post op day 1 graft clotted , has a femoral felice right in icu for low bp HOLD ALL MIND ALTERING MEDS - DC all po meds FLUID CHALLENGE pressors as needed BP HR Pain control discussed with RN and Dr Karen LAUREN protonix Subjective ROS Limited/Unobtainable: Yes Objective Objective Last 24 Hour Vital Signs Date Time Temp Pulse Resp B/P (MAP) Pulse Ox O2 Delivery O2 Flow Rate FiO2 05/16/18 14:53 111 20 40 05/16/18 14:30 112 23 94/26 (48) 99 05/16/18 14:00 113 21 116/21 (52) 99 05/16/18 13:30 118 23 164/75 (104) 98 05/16/18 13:00 109 23 174/35 (81) 98 05/16/18 12:52 88/42 05/16/18 12:38 116 19 40 05/16/18 12:30 114 23 142/88 (106) 98 05/16/18 12:00 98.9 112 24 85/42 (56) 98 05/16/18 12:00 111 95/63 05/16/18 12:00 Nasal Cannula 3.0 Nasal Cannula 3.0 05/16/18 11:59 112 31 40 05/16/18 11:45 109 32 96/32 (53) 98 05/16/18 11:30 108 32 69/26 (40) 98 05/16/18 11:00 111 33 109/71 (84) 98 05/16/18 10:45 112 35 40 05/16/18 10:30 112 24 112/81 (91) 98 05/16/18 10:00 110 24 128/46 (73) 98 05/16/18 09:41 88/66 05/16/18 09:30 99 22 129/32 (64) 100 05/16/18 09:00 94 19 124/37 (66) 100 05/16/18 08:51 100 05/16/18 08:46 83 17 40 05/16/18 08:30 80 18 71/37 (48) 100 05/16/18 08:00 98.0 83 17 124/29 (60) 100 05/16/18 08:00 Nasal Cannula 3.0 Nasal Cannula 3.0 05/16/18 07:50 76 22 40 05/16/18 07:30 75 26 75/13 (33) 97 05/16/18 07:30 75 27 40 05/16/18 07:19 75 34 40 05/16/18 07:17 77 21 40 05/16/18 07:00 77 21 85/13 (37) 95 05/16/18 06:30 76 22 109/13 (45) 97 05/16/18 06:00 77 18 125/17 (53) 96 05/16/18 05:30 76 21 126/22 (56) 95 05/16/18 05:19 77 114/40 05/16/18 05:18 77 20 40 05/16/18 05:00 90 20 107/30 (55) 97 05/16/18 04:30 90 19 117/31 (59) 97 05/16/18 04:00 Nasal Cannula 3.0 Nasal Cannula 3.0 05/16/18 04:00 75 05/16/18 04:00 98.1 85 16 105/10 (41) 99 05/16/18 04:00 40 05/16/18 03:30 74 16 94/18 (43) 97 05/16/18 03:04 75 16 40 05/16/18 03:00 79 16 73/26 (42) 97 05/16/18 02:58 75 69/27 05/16/18 02:30 75 16 69/27 (41) 97 05/16/18 02:00 75 16 72/22 (39) 97 05/16/18 01:30 75 16 80/35 (50) 97 05/16/18 01:06 76 16 40 05/16/18 01:05 76 98/43 05/16/18 01:00 76 16 100/39 (59) 97 05/16/18 00:45 97.9 75 16 98/43 (61) 98 05/16/18 00:30 75 18 93/35 (54) 98 05/16/18 00:15 76 17 93/35 (54) 96 05/16/18 00:00 Nasal Cannula 3.0 Nasal Cannula 3.0 05/16/18 00:00 40 05/16/18 00:00 76 17 81/33 (49) 96 05/16/18 00:00 77 05/15/18 23:59 75 79/30 05/15/18 23:45 97.9 76 17 80/18 (38) 96 05/15/18 23:32 75 16 Mechanical Ventilator 40 05/15/18 23:30 75 16 40 05/15/18 23:30 75 16 93/26 (48) 94 05/15/18 23:29 75 20 100 05/15/18 21:00 92 28 156/40 (78) 100 05/15/18 20:30 99 28 176/37 (83) 100 05/15/18 20:00 119 05/15/18 20:00 Nasal Cannula 3.0 Nasal Cannula 3.0 05/15/18 20:00 110 29 185/109 (134) 100 05/15/18 19:55 Nasal Cannula 3.0 32 05/15/18 19:55 100 Nasal Cannula 3.0 32 05/15/18 19:30 98.3 110 27 163/42 (82) 100 05/15/18 19:00 105 18 128/45 (72) 100 05/15/18 18:30 108 18 130/48 (75) 100 05/15/18 18:00 104 18 135/52 (79) 100 05/15/18 18:00 108 123/53 05/15/18 17:30 108 18 133/38 (69) 100 05/15/18 17:00 110 18 138/32 (67) 100 05/15/18 16:30 118 16 140/34 (69) 100 05/15/18 16:00 98.9 120 20 147/38 (74) 100 05/15/18 16:00 118 16 140/34 (69) 100 05/15/18 16:00 Nasal Cannula 3.0 Nasal Cannula 2.0 05/15/18 15:30 100 20 110/30 (56) 100 Intake and Output 05/15/18 05/16/18 19:00 07:00 Intake Total 399.14 ml 339.76 ml Output Total 0 ml 50 ml Balance 399.14 ml 289.76 ml IV Total 399.14 ml 339.76 ml Output Urine Total 0 ml 0 ml Drainage Total 50 ml Laboratory Tests 05/15/18 18:50: Prothrombin Time 13.0H, Prothromb Time International Ratio 1.2H, Activated Partial Thromboplast Time 35H 05/16/18 04:02: Arterial Blood pH 7.381, Arterial Blood Partial Pressure CO2 32.8L, Arterial Blood Partial Pressure O2 79.8, Arterial Blood HCO3 19.0L, Arterial Blood Oxygen Saturation 94.0L, Arterial Blood Base Excess -5.3L, Luiz Test Positive 05/16/18 04:05: Activated Partial Thromboplast Time 35H, White Blood Count 21.4H, Red Blood Count 3.30L, Hemoglobin 10.2L, Hematocrit 30.7L, Mean Corpuscular Volume 93, Mean Corpuscular Hemoglobin 30.9, Mean Corpuscular Hemoglobin Concent 33.2, Red Cell Distribution Width 14.9H, Platelet Count 292, Mean Platelet Volume 7.1, Neutrophils (%) (Auto) , Lymphocytes (%) (Auto) , Monocytes (%) (Auto) , Eosinophils (%) (Auto) , Basophils (%) (Auto) , Differential Total Cells Counted 100, Neutrophils % (Manual) 76H, Lymphocytes % (Manual) 3L, Monocytes % (Manual) 6, Eosinophils % (Manual) 0, Basophils % (Manual) 0, Band Neutrophils 15H, Platelet Estimate Adequate, Platelet Morphology Normal, Hypochromasia 1+, Anisocytosis 1+, Sodium Level 131L, Potassium Level 5.1, Chloride Level 93L, Carbon Dioxide Level 19L, Anion Gap 19H, Blood Urea Nitrogen 117H, Creatinine 7.4H, Estimat Glomerular Filtration Rate , Glucose Level 250H, Hemoglobin A1c 6.0, Lactic Acid Level 1.60, Calcium Level 8.7, Total Bilirubin 0.7, Aspartate Amino Transf (AST/SGOT) 64H, Alanine Aminotransferase (ALT/SGPT) 38, Alkaline Phosphatase 156H, Total Protein 5.8L, Albumin 1.6L, Globulin 4.2, Albumin/ Globulin Ratio 0.4L 05/16/18 07:50: C-Reactive Protein, Quantitative [Pending], Digoxin Level 2.5H Height (Feet): 5 Height (Inches): 4.00 Weight (Pounds): 168 General Appearance: no apparent distress EENT: other - on Vent Cardiovascular: tachycardia Respiratory/Chest: decreased breath sounds Abdomen: distended Objective no change Maurilio Arroyo MD May 16, 2018 15:27
--- NOTE | 2018-05-16 15:31 | NUR ---
NURSE NOTES: Levo titrated from 6 mcgs to 4 mcgs. BP 95/68, HR is 108 and in afib. Patient is not in any acute distress. When asked if in any pain, patient states that he is not. Will continue to monitor.
--- NOTE | 2018-05-16 15:35 | NUR ---
NURSE NOTES: Titrated Levophed once again. Patient's BP at 61/17. INC to 12 mcgs to stabilize. BP now 108/39 and stabilized. Will continue to monitor.
--- NOTE | 2018-05-16 16:15 | NUR ---
NURSE NOTES: Patient is resting and does not appear in acute distress. Patient continues to be drowsy. Patient is easily arousable, opens eyes when spoken to and responds to commands and requests with nods. Patient reports that he is not in any pain. Patient is being monitored on the security monitor. VSS at this time with at Levo 12 mcgs in RFem. Patient has been hemodynamically unstable that requires close monitoring. Patient is orally intubated with vent settings AC 16, TV 600, Fio2 40% +5. Patient is tolerating well and oral care was performed. Patient continues to be NPO. Patient's VELVET drain from s/p Ex lap with with small bowel resection and clean out is draining serosanguineous fluid. Patient has abd dressing that is dry and intact. Patient has Amio 0.5 mg running for tx of aFib via peripheral IV. Safety measures are in place with bed locked in the lowest position side rails x 3 up. Will continue to monitor and follow plan of care.
[2018-05-16] MEDS ORDERED: NS 500ML ONE (16:18)
[2018-05-16] MEDS ORDERED: Tubing IV Secondary IV ONE (16:18)
[2018-05-16] MEDS ORDERED: NS 275ml ONE (16:18)
[2018-05-16] MEDS ORDERED: D5W 275ml ONE (16:18)
--- NOTE | 2018-05-16 17:01 | Diagnostic Imaging Report ---
APPROVED REPORT CPT Code: 65447 Present Symptoms Comments: Swelling BILATERAL: Imaging reveals a patent deep venous system bilaterally. There is no evidence of thrombus within the femoral, popliteal or tibial segments. The greater saphenous veins are also within normal limits. Doppler indicates normal spontaneous flow within these segments.
--- NOTE | 2018-05-16 17:07 | Diagnostic Imaging Report ---
APPROVED REPORT CPT Code: 49479 Present Symptoms Comments: Pain BILATERAL: Imaging reveals a patent deep venous system bilaterally. There is no evidence of thrombus within the femoral, popliteal or tibial segments. The greater saphenous veins are also within normal limits. Doppler indicates normal spontaneous flow within these segments.
--- NOTE | 2018-05-16 17:25 | NUR ---
CASE MANAGEMENT: REVIEW SI: ESRD ON HD . ACS . A-FIB RIGHT FEMORAL TEMPORARY HEMODIALYSIS CATHETER INSERTION 05/13 T 98.9 HR 114 RR 24 BP 61/17 SAT 98% NC/3L WBC 21.4 H/H 10.2/30.7 IS: AMIODARONE IV Q24HR FENTANYL IV Q24HR VERSED IV Q24HR FLAGYL IV Q8HR SOLU CORTEF IV Q8HR MIDODRINE PO TID CEFTRIAXONE IV Q24HR ICU STATUS DCP: PATIENT IS FROM HOME
--- NOTE | 2018-05-16 18:01 | NUR ---
NURSE NOTES: Contacted Dr Jones regarding elevated BG. Received order to change sliding scale to resistive from average scale. Per MD will titrate down from Hydrocortisone. Will follow MD plan of care.
--- NOTE | 2018-05-16 19:10 | NUR ---
RESPIRATORY NOTE: PT. RECEIVED STABLE ON CMV WITH CURRENT SETTING. VENT CIRCUIT AND SX TUBING SECURE AND OUT OF THE WAY. NO SIGN OF RESPIRATORY DISTRESS NOTED AT THIS TIME. WILL CONTINUE TO MONITOR.
--- NOTE | 2018-05-16 19:25 | NUR ---
HAND-OFF: Report given to MINGO Emery. VSS and patient is not in any acute distress. Patient is running Levo at 12 mcgs and Amio 0.5 mg/hr.
--- NOTE | 2018-05-16 19:30 | Operative Note - Dictated ---
DATE OF OPERATION: 05/15/2018 PREOPERATIVE DIAGNOSES: 1. Recent laparoscopic cholecystectomy. 2. Worsening abdominal pain with peritonitis. 3. Sepsis. 4. Pneumoperitoneum. POSTOPERATIVE DIAGNOSES: Small bowel perforation in distal ileum, likely iatrogenic from the patient's recent laparoscopic cholecystectomy. OPERATION PERFORMED: 1. Diagnostic laparoscopy. 2. Exploratory laparotomy. 3. Small bowel resection. 4. Omentectomy. 5. Abdominal washout. 6. Drain placement. ATTENDING SURGEON: Tomas Chandler M.D. VETERINARY TOXICOLOGIST: None. ANESTHESIOLOGIST: Anuj Dale M.D. ANESTHESIA: General BUSINESS MANAGEMENT PROFESSOR. ESTIMATED BLOOD LOSS: 50 mL. IV FLUIDS: Please see anesthesia records. COMPLICATIONS: None. DRAINS: VELVET drain placed in the pelvis. SPECIMENS: 1. Small bowel at the area of perforation. 2. Omentum. 3. Abdominoperitoneal cultures. WOUND CONSULTATION: Class 4. COUNTS: Sponge, needle count correct x2. IMPLANTS: None. INDICATIONS FOR PROCEDURE: This is a 78-year-old male who recently had a laparoscopic cholecystectomy approximately less than a week ago, who presented to [facility] with complaints of chest pain. The patient was admitted to rule out acute coronary syndrome and during hospitalization began to deteriorate and have worsening abdominal pain with peritonitis. CT scan was performed, which identified mild free air and some fluid, but this could have contributed to recent surgery as well. As patient's examination not improved and leukocytosis worsened, he warranted diagnostic laparoscopy given recent surgery to ensure no complication. Unfortunately at the time, the patient was not capable of making medical decisions as his mental status changed since the prior to admission and the patient prior was noted to be Full Code and given the severity of his illness and the potential for life-threatening illnesses, recent potential complication from surgery outside facility, decision was made to proceed with surgery under emergent basis. All medical teams discussed the patient's clinical course and the necessity for surgery and agreed and emergent surgery was proceeded. Of note attempts were made to identify where the patient had a prior laparoscopic cholecystectomy to obtain reports but unsuccessful given the patient unable to state where and who the surgeon was. OPERATIVE NOTE: The patient was taken to the operating room, placed on the operative table in the supine position with bilateral arms out. All bony prominences well padded. SCDs were placed. Preoperative time-out was taken, identifying the patient, procedure, operative staff, and surgical staff. General anesthesia was induced. The patient was intubated. The abdomen was clipped, prepped, draped in standard surgical fashion. The prior laparoscopic cholecystectomy and infraumbilical incision site was utilized and reopened using a #11-scalpel. The fascia was elevated and the prior Vicryl sutures from the fascia closure was identified and cut out. The abdomen was entered under direct visualization using open Hollie technique. A 12 mm Hollie trocar was inserted. The abdomen was insufflated to 12 to 15 mmHg. Laparoscope was inserted and there were bowel contents and purulent fluid noted throughout the abdomen and the right upper quadrant and right lower quadrant and pelvis and left lower quadrant. At this time, given the findings, decision made to convert to laparotomy. The abdomen was desufflated. The trocar was removed. A #10 scalpel was used and a midline laparotomy incision was made utilizing the infraumbilical port site incision. Incision was carried down to the fascia using electrocautery and the fascia was divided and the abdomen entered. There was significant amount of pus and succus/bowel contents identified in the abdomen. The omentum however was noted to be significantly inflamed with abscesses and pus noted adherent to the right lower quadrant. Omentum was dissected off the bowel in the right lower quadrant and partial omentectomy was performed using Harmonic energy device. Decision was made to do the partial omentectomy given that the significant portion of the omentum did have abscess cavities and inflammation and infection noted. Omentum was sent to pathology for review. Following this, the cecum was identified as well as appendix and ascending colon which were otherwise normal. The transverse, descending, sigmoid and rectosigmoid junction were all identified and noted to be otherwise healthy and in fact there was lot of inflammation and fibrinous and succus debris. The terminal ileum was noted and the small bowel was run retrograde and just at the distal jejunum and ileum. There was area of perforation noted with active extravasation of small bowel contents. The remainder of the small bowel was inspected. No other abnormalities were noted. There was significant small bowel edema noted. At this time, decision made to proceed with small bowel resection of this perforated portion given its etiology and allowing how it presented in the way it looked intraoperatively. A area of healthy proximal and distal small bowel were identified and chosen for division. A small rent was made in the mesentery proximally and distally and a linear 75 mm stapler was used to divide the small bowel proximally and distally. The mesentery was then divided using the LigaSure energy device and the small bowel segment with perforation was sent to pathology for review. At this time, the abdomen was inspected and reinspected and irrigated with copious amounts of warm normal saline approximately up to 7 liters. Once all of the succus, pus and debris were removed the abdomen was noted to be otherwise clear. The gallbladder fossa site was evaluated and had stable hematoma. At this time, a [id number] small bowel anastomosis was prefashioned. A 3-0 silk stay sutures were placed proximally and distally on the small bowel and enterotomies were made on both proximal and distal aspects. A linear 75 mm stapler was inserted less than group home and fired. A [id number] anastomosis was fashioned. The remaining enterotomy was then closed using a running 3-0 Vicryl suture followed by interrupted 3-0 silk Lembert sutures. The anastomosis was noted to be patent and hemostatic. The mesenteric defect was closed using running 3-0 Vicryl suture. Following this, the abdomen was reinspected and no other abnormalities were found. The stomach, visual portions of the duodenum, remainder of the small bowel, and remainder of the colon were otherwise without any perforation or abnormality that could be easily identified. The abdomen was irrigated again with copious amounts of warm normal saline and at this time we began the conclusion of our procedure. A 19-Slovak Segundo drain was placed in the pelvis and sutured to the skin using 2-0 nylon suture. The fascia was reapproximated using a 0 looped PDS suture. The wound was irrigated and the skin incision reapproximated using surgical janell. Dressings were applied. The patient procedure well, was left intubated and taken directly to the intensive care unit for recovery. Tomas Chandler M.D. DR: Alexandra JOB#: [id number] CC: RON
[2018-05-16] MEDS: Dyna-Hex 2% Top Sol 2oz TOPIC SCH (19:34)
--- NOTE | 2018-05-16 19:35 | NUR ---
NURSE NOTES: Received pt in bed with eyes open. A-fib on the monitor with HR 97. Pt able to answer simple questions with simple nodding. Orally intubated on Ac 16, Vt 600, P 5 fio2 40%. Pt continues NPO at this time. Right upper arm and right FA IV sites patent and intact at this time. Amio gtt running @ 0.5 mg/min and Levophed running @ 12 mcg/min. Right femoral Dialysis cath noted with dressing dry and intact. LISA old AV shunt noted. abdominal dressing noted to be dry and intact. Left side VELVET drainage noted with Seriosanginous output at this time. SCD's on at this time. Pt able to nod yes when he is asked if he is in pain. Bed in lowest position, side rails upx3. On contact precautions. Will continue with plan of care.
--- NOTE | 2018-05-16 21:00 | NUR ---
NURSE NOTES: CHG bath given at this time. Sacral dressing remains dry and intact at this time. Pt continues on Levophed now @ 10 mcg/min at this time. Py awake and denies any pain at this time. No signs of distress noted. Will continue to monitor
--- NOTE | 2018-05-16 21:48 | General Progress Note ---
Assessment/Plan Assessment/Plan COVERING FOR DR. IRVIN ASSESSMENT AND RECOMMENDATIONS # Small bowel perforation, s/p bowel resection, with Gram negative sepsis is on abx In ICU s/p Small bowel resection on Amiodarone and Levophed drip. HR around 100. --> on broad spectrum abx --> on vanc/cefepime as per id--> now changed to ceftriaxone --> s/p sb resection on 05/15, appreciate surg recs --> on pressors as well,++ vent # Lower extremity edema with an elevated BNP in a patient with renal failure on hemodialysis. --> on HD per Dr. Arroyo. 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 --> ECHO with normal LV function --> on heparin gtt 05/13 for potential pe, cta neg --> now d/albert # End-stage renal disease, on hemodialysis and also hyponatremia. --> Nephro is following, appreciate recs. --> On intermittent HD # Anemia of chronic disease due to underlying chronic medical issues, multifactorial. --> anemia w/u reviewed --> Monitor for stability Subjective Constitutional: Denies: no symptoms, chills, diaphoresis, fever, malaise, weakness, other HEENT: Denies: no symptoms, eye pain, blurred vision, tearing, double vision, ear pain, ear discharge, nose pain, nose congestion, throat pain, throat swelling, mouth pain, mouth swelling, other Cardiovascular: Denies: no symptoms, chest pain, edema, irregular heart rate, lightheadedness, palpitations, syncope, other Respiratory: Denies: no symptoms, cough, orthopnea, shortness of breath, SOB with excertion, SOB at rest, sputum, stridor, wheezing, other Gastrointestinal/Abdominal: Denies: no symptoms, abdomen distended, abdominal pain, black stools, tarry stools, blood in stool, constipated, diarrhea, difficulty swallowing, nausea, poor appetite, poor fluid intake, rectal bleeding , vomiting, other Genitourinary: Denies: no symptoms, burning, discharge, frequency, flank pain, hematuria, incontinence, pain, urgency, other Neurologic/Psychiatric: Denies: no symptoms, anxiety, depressed, emotional problems, headache, numbness, paresthesia, pre-existing deficit, seizure, tingling, tremors, weakness, other Endocrine: Denies: no symptoms, excessive sweating, flushing, intolerance to cold, intolerance to heat, increased hunger, increased thirst, increased urine, unexplained weight gain, unexplained weight loss, other Allergies: Coded Allergies: No Known Allergies (Unverified , 11/12/12) Subjective 05/12: Pt resting in bed. No acute events. H/H stable. On abx. VS stable. 05/13: on pressors, on hep gtt, on steriods, abx, got hd, felice catheter in place : CT-A was negative, hep gtt as per cards, abg reviewed, moaning on exam, on ceftriaxone 05/15 :Pt remains in ICU. Currently undergoing HD. Pt on 2 cardiac drips for elevated Bp. WBC remains elevated. H/H stable. 05/16: s/p sb resection, In ICU s/p Small bowel resection on Amiodarone and Levophed drip. HR around 100. Objective Last 24 Hour Vital Signs Date Time Temp Pulse Resp B/P (MAP) Pulse Ox O2 Delivery O2 Flow Rate FiO2 05/16/18 21:30 99 17 140/34 (69) 100 05/16/18 21:00 97 21 122/49 (73) 100 05/16/18 20:30 97 19 115/43 (67) 100 05/16/18 20:00 97 18 99/36 (57) 100 05/16/18 20:00 Mechanical Ventilator Mechanical Ventilator 05/16/18 19:30 108 19 91/34 (53) 100 05/16/18 19:00 98.6 104 20 112/51 (71) 100 05/16/18 18:30 99 19 128/25 (59) 100 05/16/18 18:09 121/25 05/16/18 18:00 114/39 05/16/18 18:00 101 19 114/39 (64) 100 05/16/18 17:30 117 19 152/86 (108) 99 05/16/18 17:08 112 22 40 05/16/18 17:00 115 19 129/35 (66) 99 18 17:00 129/35 05/16/18 16:30 114 19 148/50 (82) 99 05/16/18 16:00 Nasal Cannula 3.0 Nasal Cannula 3.0 05/16/18 16:00 98.9 101 19 99/56 (70) 99 05/16/18 16:00 131/24 18 15:53 112 108/39 05/16/18 15:45 132/46 05/16/18 15:30 102 22 95/64 (74) 99 05/16/18 15:30 61/17 05/16/18 15:15 135/18 05/16/18 15:00 109 22 95/35 (55) 99 05/16/18 15:00 95/35 05/16/18 14:53 111 20 40 05/16/18 14:30 98/34 05/16/18 14:30 112 23 94/26 (48) 99 05/16/18 14:00 116/21 05/16/18 14:00 113 21 116/21 (52) 99 05/16/18 13:45 103/73 05/16/18 13:30 128/52 05/16/18 13:30 118 23 164/75 (104) 98 05/16/18 13:00 174/35 05/16/18 13:00 109 23 174/35 (81) 98 05/16/18 12:52 88/42 05/16/18 12:38 116 19 40 05/16/18 12:30 114 23 142/88 (106) 98 05/16/18 12:00 98.9 112 24 85/42 (56) 98 05/16/18 12:00 85/42 05/16/18 12:00 111 95/63 05/16/18 12:00 Nasal Cannula 3.0 Nasal Cannula 3.0 05/16/18 11:59 112 31 40 05/16/18 11:45 109 32 96/32 (53) 98 05/16/18 11:30 108 32 69/26 (40) 98 05/16/18 11:00 111 33 109/71 (84) 98 05/16/18 11:00 109/71 05/16/18 10:45 112 35 40 05/16/18 10:30 112 24 112/81 (91) 98 05/16/18 10:00 128/46 05/16/18 10:00 110 24 128/46 (73) 98 05/16/18 09:41 88/66 05/16/18 09:30 99 22 129/32 (64) 100 05/16/18 09:00 94 19 124/37 (66) 100 05/16/18 08:51 100 05/16/18 08:46 83 17 40 05/16/18 08:30 80 18 71/37 (48) 100 05/16/18 08:00 98.0 83 17 124/29 (60) 100 05/16/18 08:00 Nasal Cannula 3.0 Nasal Cannula 3.0 05/16/18 07:50 76 22 40 05/16/18 07:30 75 26 75/13 (33) 97 05/16/18 07:30 75 27 40 05/16/18 07:19 75 34 40 05/16/18 07:17 77 21 40 05/16/18 07:00 77 21 85/13 (37) 95 05/16/18 06:30 76 22 109/13 (45) 97 05/16/18 06:00 77 18 125/17 (53) 96 05/16/18 05:30 76 21 126/22 (56) 95 05/16/18 05:19 77 114/40 05/16/18 05:18 77 20 40 05/16/18 05:00 90 20 107/30 (55) 97 05/16/18 04:30 90 19 117/31 (59) 97 05/16/18 04:00 Mechanical Ventilator Mechanical Ventilator 05/16/18 04:00 75 05/16/18 04:00 98.1 85 16 105/10 (41) 99 05/16/18 04:00 40 05/16/18 03:30 74 16 94/18 (43) 97 05/16/18 03:04 75 16 40 05/16/18 03:00 79 16 73/26 (42) 97 05/16/18 02:58 75 69/27 05/16/18 02:30 75 16 69/27 (41) 97 05/16/18 02:00 75 16 72/22 (39) 97 05/16/18 01:30 75 16 80/35 (50) 97 05/16/18 01:06 76 16 40 05/16/18 01:05 76 98/43 05/16/18 01:00 76 16 100/39 (59) 97 05/16/18 00:45 97.9 75 16 98/43 (61) 98 05/16/18 00:30 75 18 93/35 (54) 98 05/16/18 00:15 76 17 93/35 (54) 96 05/16/18 00:00 Nasal Cannula 3.0 Nasal Cannula 3.0 05/16/18 00:00 40 05/16/18 00:00 76 17 81/33 (49) 96 05/16/18 00:00 77 05/15/18 23:59 75 79/30 05/15/18 23:45 97.9 76 17 80/18 (38) 96 05/15/18 23:32 75 16 Mechanical Ventilator 40 05/15/18 23:30 75 16 40 05/15/18 23:30 75 16 93/26 (48) 94 05/15/18 23:29 75 20 100 Intake and Output 05/15/18 05/16/18 18:59 06:59 Intake Total 412.798 ml 311.60 ml Output Total 0 ml 50 ml Balance 412.798 ml 261.60 ml IV Total 412.798 ml 311.60 ml Output Urine Total 0 ml 0 ml Drainage Total 50 ml Laboratory Tests 05/16/18 04:02: Arterial Blood pH 7.381, Arterial Blood Partial Pressure CO2 32.8L, Arterial Blood Partial Pressure O2 79.8, Arterial Blood HCO3 19.0L, Arterial Blood Oxygen Saturation 94.0L, Arterial Blood Base Excess -5.3L, Luiz Test Positive 05/16/18 04:05: White Blood Count 21.4H, Red Blood Count 3.30L, Hemoglobin 10.2L, Hematocrit 30.7L, Mean Corpuscular Volume 93, Mean Corpuscular Hemoglobin 30.9, Mean Corpuscular Hemoglobin Concent 33.2, Red Cell Distribution Width 14.9H, Platelet Count 292, Mean Platelet Volume 7.1, Neutrophils (%) (Auto) , Lymphocytes (%) (Auto) , Monocytes (%) (Auto) , Eosinophils (%) (Auto) , Basophils (%) (Auto) , Differential Total Cells Counted 100, Neutrophils % ( Manual) 76H, Lymphocytes % (Manual) 3L, Monocytes % (Manual) 6, Eosinophils % ( Manual) 0, Basophils % (Manual) 0, Band Neutrophils 15H, Platelet Estimate Adequate, Platelet Morphology Normal, Hypochromasia 1+, Anisocytosis 1+, Activated Partial Thromboplast Time 35H, Sodium Level 131L, Potassium Level 5.1 , Chloride Level 93L, Carbon Dioxide Level 19L, Anion Gap 19H, Blood Urea Nitrogen 117H, Creatinine 7.4H, Estimat Glomerular Filtration Rate , Glucose Level 250H, Hemoglobin A1c 6.0, Lactic Acid Level 1.60, Calcium Level 8.7, Total Bilirubin 0.7, Aspartate Amino Transf (AST/SGOT) 64H, Alanine Aminotransferase (ALT/SGPT) 38, Alkaline Phosphatase 156H, Total Protein 5.8L, Albumin 1.6L, Globulin 4.2, Albumin/Globulin Ratio 0.4L 05/16/18 07:50: C-Reactive Protein, Quantitative > 70.0H, Digoxin Level 2.5H Height (Feet): 5 Height (Inches): 4.00 Weight (Pounds): 179 Objective PHYSICAL EXAMINATION: VITAL SIGNS: Have been reviewed HEENT: PERRLA. NECK: Supple. No lymphadenopathy. CHEST: ++ intubated CARDIOVASCULAR: Tachycardic. GASTROINTESTINAL: Distended. Positive bowel sounds. Nontender. No organomegaly. + ryan drain in place EXTREMITY: A 1+ edema. Reflexes are equal on both sides. Reinaldo Leon MD May 16, 2018 21:48
--- NOTE | 2018-05-16 23:05 | NUR ---
NURSE NOTES: Levophed had to be increased at this time. Now running at 14 mcg/min. SBP noted to drop into the low 70's when patient is sleeping. Amio gtt continues @ 0.5 mcg/min. Pt denies any pain at this when when asked. No signs of distress noted. Will continue to monitor
[2018-05-17] VITALS (49 sets, daily range): BP systolic 100–186; BP diastolic 16–100
--- NOTE | 2018-05-17 01:11 | NUR ---
NURSE NOTES: Pt noted to be awake with HR 117 A-fib. when asking patient if he is in pain pt able to make gestures he is in pain. 1mg Dilaudid given at this time.
[2018-05-17] MEDS: Phenylephrine 50 MG in D5W 245 ML IV SCH (02:30)
--- NOTE | 2018-05-17 03:00 | NUR ---
NURSE NOTES: Morning care provided at this time. Pt turned and repositioned for comfort. Abdominal dressing remains dry and intact. No signs of distress noted. Will continue to monitor
--- NOTE | 2018-05-17 04:25 | NUR ---
NURSE NOTES: Pt HR noted to have increased to 120. BP elevated. When asking patient if he has pain he is able to nod yes. Dilaudid 1mg given at this time for FLACC score 6/10. Will continue to monitor
[2018-05-17] MEDS ORDERED: Levophed 4mg/4mL Inj IV ONE (04:32)
--- NOTE | 2018-05-17 05:10 | NUR ---
RESPIRATORY NOTE: PT. REMAINED STABLE ON CMV WITH CURRENT SETTINGS. SX PRN. VENT CIRCUIT AND SX TUBING SECURE AND OUT OF THE WAY. NO S/S OF RESPIRATORY DISTRESS NOTED AT THIS TIME.
[2018-05-17 05:21] LABS: HEMATOCRIT 31.6 % (42.0-52.0); HEMOGLOBIN 10.3 G/DL (14.2-18.0); MEAN CORPUSCULAR VOLUME 92 FL (80-99); PLATELET COUNT 329 K/UL (150-450); RED BLOOD COUNT 3.42 M/UL (4.70-6.10); RED CELL DISTRIBUTION WIDTH 14.8 % (11.6-14.8); WHITE BLOOD COUNT 21.2 K/UL (4.8-10.8)
[2018-05-17] MEDS: Hydrocortisone 100mg Inj IV SCH ×3 (05:34→21:41)
[2018-05-17] MEDS: NovoLOG Insulin Flexpen SUBQ SCH ×4 (05:36→20:28)
[2018-05-17] MEDS: Metoprolol 5mg/5ml Inj IVP SCH ×2 (05:39→12:00)
--- NOTE | 2018-05-17 06:00 | NUR ---
NURSE NOTES: Pt continues sleeping at this time. No signs of pain or discomfort noted. at this time. Levophed now running @ 4 mcg/min. Will continue with plan of care
[2018-05-17 06:05] LABS: ALANINE AMINOTRANSFERASE 33 U/L (12-78); ALBUMIN 1.8 G/DL (3.4-5.0); ALBUMIN/GLOBULIN RATIO 0.4 (1.0-2.7); ALKALINE PHOSPHATASE 151 U/L (46-116); AMYLASE 312 U/L (25-115); ANION GAP 21 mmol/L (5-15); ASPARTATE AMINO TRANSFERASE 52 U/L (15-37); BILIRUBIN,TOTAL 0.7 MG/DL (0.2-1.0); BLOOD UREA NITROGEN 148 mg/dL (7-18); CALCIUM 9.6 MG/DL (8.5-10.1); CARBON DIOXIDE 18 MMOL/L (21-32); CHLORIDE 90 MMOL/L (98-107); CREATININE 8.5 MG/DL (0.55-1.30); POTASSIUM 5.9 MMOL/L (3.5-5.1); SODIUM 129 MMOL/L (136-145)
[2018-05-17 06:13] LABS: PHOSPHORUS 11.1 MG/DL (2.5-4.9)
--- NOTE | 2018-05-17 06:50 | NUR ---
RESPIRATORY NOTE: received pt intubated on current vent settings with saturation of 100% on fio2 40%. Pt is intubated with ETT 7.5, placed 22cm at the lip, secured via anchor fast with no redness visible around face. No resp distress noted at this time. Vent is plugged into red outlet with alarms on and audible with ambubag at bedside. will cont to monitor pt.
--- NOTE | 2018-05-17 07:21 | NUR ---
HAND-OFF: Report given to Denis AGUILA using SBAR. VS stable.
--- NOTE | 2018-05-17 08:30 | NUR ---
NURSE NOTES: Patient weaning with CPAP and PS of 8 saturating at 100% with RR of 24-26, patient is awake able to move hands to give gestures, he denies any pain over abdominal region. VELVET drain is draining clear pink-yellow drainage, abdominal dressing is dry and intact secured with silk tape, will continue to monitor.
--- NOTE | 2018-05-17 08:40 | NUR ---
RESPIRATORY NOTE: started weaning at 0840 with vent settings of CPAP with PS 8, fio2 40%. will cont to monitor
--- NOTE | 2018-05-17 08:45 | NUR ---
NURSE NOTES: Dr. Holland rounded on patient, status of pain updated and no verbal orders given at this time, will continue plan of care.
[2018-05-17] MEDS: Pantoprazole Inj IVP SCH ×2 (09:15→20:28)
--- NOTE | 2018-05-17 09:57 | General Progress Note ---
Assessment/Plan Assessment/Plan (1) Abdominal pain (2) S/p Lap Cholecystectomy (3) Encephalopathy (4) ESRD on hemodialysis (5) S/p emergent exploratory laboratory small bowel resection omentectomy due to small bowel perforation in distal ileum Patient to be continued on Dilaudid. Parameters to be continued. D/w Dr. Busby and he concurred. Subjective Date patient seen: May 17, 2018 Time patient seen: 08:45 - am ROS Limited/Unobtainable: Yes Allergies: Coded Allergies: No Known Allergies (Unverified , 11/12/12) Subjective Patient is in bed intubated d/w nurse at bedside. Was given three doses of Dilaudid in the last 24hrs. Objective Last 24 Hour Vital Signs Date Time Temp Pulse Resp B/P (MAP) Pulse Ox O2 Delivery O2 Flow Rate FiO2 05/17/18 09:29 100 05/17/18 08:37 103 19 40 05/17/18 08:30 102 24 141/66 (91) 100 05/17/18 08:00 98.6 91 18 111/67 (82) 100 05/17/18 08:00 69 05/17/18 07:30 104 20 121/62 (81) 100 05/17/18 07:00 104 19 104/61 (75) 100 05/17/18 06:47 104 18 40 05/17/18 06:30 107 18 115/54 (74) 100 05/17/18 06:00 102 18 131/83 (99) 100 05/17/18 05:39 110 146/61 05/17/18 05:30 110 18 146/61 (89) 100 05/17/18 05:10 104 16 40 05/17/18 05:00 104 16 113/62 (79) 100 05/17/18 04:35 122/30 05/17/18 04:30 112 19 114/78 (90) 100 05/17/18 04:00 Mechanical Ventilator Mechanical Ventilator 05/17/18 04:00 105 05/17/18 04:00 98.3 107 18 161/76 (104) 100 05/17/18 04:00 40 05/17/18 03:30 106 17 131/100 (110) 100 05/17/18 02:58 104 16 40 05/17/18 02:30 104 111/15 05/17/18 02:30 101 17 115/83 (94) 100 05/17/18 02:00 87 16 111/91 (98) 100 05/17/18 01:30 96 16 111/61 (78) 100 05/17/18 01:00 111 20 105/81 (89) 100 05/17/18 00:48 91 19 40 05/17/18 00:30 110 20 124/38 (66) 100 05/17/18 00:01 118/47 05/17/18 00:00 40 05/17/18 00:00 Mechanical Ventilator Mechanical Ventilator 05/17/18 00:00 114 05/17/18 00:00 98.6 96 19 113/37 (62) 100 05/16/18 23:53 100 118/47 05/16/18 23:30 98 20 111/18 (49) 100 05/16/18 23:10 92 22 40 05/16/18 23:00 93 20 80/36 (51) 100 05/16/18 22:30 96 20 70/44 (53) 100 05/16/18 22:00 106 20 111/80 (90) 100 05/16/18 22:00 83/53 05/16/18 21:30 99 17 140/34 (69) 100 05/16/18 21:00 97 21 122/49 (73) 100 05/16/18 20:40 104 20 40 05/16/18 20:30 97 19 115/43 (67) 100 05/16/18 20:00 97 18 99/36 (57) 100 05/16/18 20:00 98 05/16/18 20:00 40 05/16/18 20:00 Mechanical Ventilator Mechanical Ventilator 05/16/18 19:30 108 19 91/34 (53) 100 05/16/18 19:10 109 18 40 05/16/18 19:00 98.6 104 20 112/51 (71) 100 05/16/18 18:30 99 19 128/25 (59) 100 05/16/18 18:09 121/25 05/16/18 18:00 114/39 05/16/18 18:00 101 19 114/39 (64) 100 05/16/18 17:30 117 19 152/86 (108) 99 05/16/18 17:08 112 22 40 05/16/18 17:00 115 19 129/35 (66) 99 18 17:00 129/35 05/16/18 16:30 114 19 148/50 (82) 99 05/16/18 16:00 Nasal Cannula 3.0 Nasal Cannula 3.0 05/16/18 16:00 98.9 101 19 99/56 (70) 99 18 16:00 131/24 05/16/18 15:53 112 108/39 05/16/18 15:45 132/46 05/16/18 15:30 102 22 95/64 (74) 99 05/16/18 15:30 61/17 05/16/18 15:15 135/18 05/16/18 15:00 109 22 95/35 (55) 99 05/16/18 15:00 95/35 05/16/18 14:53 111 20 40 05/16/18 14:30 98/34 05/16/18 14:30 112 23 94/26 (48) 99 05/16/18 14:00 116/21 05/16/18 14:00 113 21 116/21 (52) 99 05/16/18 13:45 103/73 05/16/18 13:30 128/52 05/16/18 13:30 118 23 164/75 (104) 98 05/16/18 13:00 174/35 05/16/18 13:00 109 23 174/35 (81) 98 05/16/18 12:52 88/42 05/16/18 12:38 116 19 40 05/16/18 12:30 114 23 142/88 (106) 98 05/16/18 12:00 98.9 112 24 85/42 (56) 98 05/16/18 12:00 85/42 05/16/18 12:00 111 95/63 05/16/18 12:00 Nasal Cannula 3.0 Nasal Cannula 3.0 05/16/18 11:59 112 31 40 05/16/18 11:45 109 32 96/32 (53) 98 05/16/18 11:30 108 32 69/26 (40) 98 05/16/18 11:00 111 33 109/71 (84) 98 05/16/18 11:00 109/71 05/16/18 10:45 112 35 40 05/16/18 10:30 112 24 112/81 (91) 98 05/16/18 10:00 128/46 05/16/18 10:00 110 24 128/46 (73) 98 Intake and Output 05/16/18 05/17/18 19:00 07:00 Intake Total 1669.26 ml 584.51 ml Output Total 60 ml 0 ml Balance 1609.26 ml 584.51 ml IV Total 1669.26 ml 584.51 ml Output Urine Total 0 ml 0 ml Drainage Total 60 ml # Voids 2 Laboratory Tests 05/17/18 04:16: White Blood Count 21.2H, Red Blood Count 3.42L, Hemoglobin 10.3L, Hematocrit 31.6L, Mean Corpuscular Volume 92, Mean Corpuscular Hemoglobin 30.2, Mean Corpuscular Hemoglobin Concent 32.8, Red Cell Distribution Width 14.8, Platelet Count 329, Mean Platelet Volume 7.3, Neutrophils (%) (Auto) , Lymphocytes (%) ( Auto) , Monocytes (%) (Auto) , Eosinophils (%) (Auto) , Basophils (%) (Auto) , Neutrophils % (Manual) [Pending], Lymphocytes % (Manual) [Pending], Platelet Estimate [Pending], Platelet Morphology [Pending], Sodium Level 129L, Potassium Level 5.9H, Chloride Level 90L, Carbon Dioxide Level 18L, Anion Gap 21H, Blood Urea Nitrogen 148H, Creatinine 8.5H, Estimat Glomerular Filtration Rate , Glucose Level 317H, Uric Acid 11.1H, Calcium Level 9.6, Phosphorus Level 11.1H, Magnesium Level 2.2, Total Bilirubin 0.7, Aspartate Amino Transf (AST/SGOT) 52H , Alanine Aminotransferase (ALT/SGPT) 33, Alkaline Phosphatase 151H, Troponin I 0.044, Pro-B-Type Natriuretic Peptide > [id number], Total Protein 6.0L, Albumin 1.8L , Globulin 4.2, Albumin/Globulin Ratio 0.4L, Amylase Level 312H, Lipase 1994H Height (Feet): 5 Height (Inches): 4.00 Weight (Pounds): 179 Objective GENERAL: Intubated. LUNGS: Decreased breath sounds bilaterally. HEART: S1 S2 Regular. ABDOMEN: Tenderness to palpation. Bandages and drain noted. EXTREMITIES: No cyanosis. No clubbing. Zedner,Sid N. PA May 17, 2018 09:57
--- NOTE | 2018-05-17 10:30 | NUR ---
NURSE NOTES: Dr. Arroyo ordered to have patient hemodialyzed today, hemodialysis nurse notified regarding orders and will hemodialyzed patient this afternoon, no further orders given at this time
--- NOTE | 2018-05-17 10:47 | NUR ---
RESPIRATORY NOTE: Pt placed back on AC mode at 1040 due to increase in respirations. RNDenis notified
--- NOTE | 2018-05-17 10:50 | NUR ---
NURSE NOTES: patient placed on ac 16, TV: 600, FIO2 40% with peep of 5 due to respirations of 28-31 and patient having distress,
--- NOTE | 2018-05-17 11:00 | NUR ---
RD ASSESSMENT & RECOMMENDATIONS SEE CARE ACTIVITY FOR COMPLETE ASSESSMENT DAILY ESTIMATED NEEDS: Needs based on ESRD on HD, wound, post op/ 73.7kg abw 25-30 kcals/kg 4933-3861 total kcals 1.25-1.8 g protein/kg 92-147 g total protein 15-20 mL/kg 7471-8527 total fluid mLs NUTRITION DIAGNOSIS: 1) Increased kcal and protein needs r/t renal dysfunction, wound healing, surgery as evidenced by pt with ESRD on HD, partial thickness wound @ sacral cleft and stage 1 @ rt heel, s/p small bowel resection. 2) Altered GI function R/T recent lap matthew w/ possible complications as evidenced by pt admitted w/ c/o abdominal pain, s/p ex lap w/ finding of small bowel perforation in distal ileum, s/p small bowel resection w/ drain, NPO at this time. 3) Altered nutrition related lab values R/T ESRD, on steroidal med, DM dx, clinical condition, as evidenced by low Na (129), elev K (5.9), elev phos (11.1), elev BNP (>60450), elev BGs (317 250 252), low BP, on pressors. CURRENT DIET:NPO PO DIET RECOMMENDATIONS: Diet per surgeon PARENTERAL NUTRITION RECOMMENDATIONS: D/AA Rate: 49 IL Rate: 8 Total Rate: 57 Volume: 1368 % Dextrose: 20 % AA: 6.5 Energy (kcals/kg): 1490 Protein (g/kg protein): 76 Nonprotein KCALS: 1184 GIR (mg CHO/kg/min): 2.2 % Fat KCALS: 25.7 NCP: N Ratio: 97 TPN Comment: * W/ hemodynamic stability, rec TPN :s/p small bowel resection on 05/15, NPO/no oral intake x 7 days today, currently orally intubated post op. * D20% AA 6.5% @ 49ml/hr + IL20% @8ml/hr -> all 3:1, total of 57ml/hr. * Initiate TPN @ 27ml/hr x 6 hrs, advance 10ml q 4-6 hrs as tolerated to goal rate. * TPN @ goal will meet 81% est kcal and 83% est prot needs, GIR=2.2 * Consider insulin in TPN. ADDITIONAL RECOMMENDATIONS: 1) REcalibrate bed scale for accurate CBW 2) RECOMMEND TPN W/ HEMODYNAMIC STABILITY- SEE ABOVE REC -> npo/no oral intake x 7 days, s/p bowel resection 3) W/ TPN: monitor lytes, BGs, LFTs daily 4) Consider insulin in TPN: h/o DM, elev BGs, on steroidal med
--- NOTE | 2018-05-17 11:01 | NUR ---
PT EVALUATION NOTE: Patient seen for initial evaluation, see complete evaluation for details. Patient will benefit from skilled inpatient PT intervention to increase strength and mobility to improve level of function. Currently patient on mechanical ventilator, will progress to mobility training as able. Recommend SNF at discharge for further rehab. Addendum: 05/17/18 at 1102 by PHILIPP TORRE PT Amended: Links added.
[2018-05-17] MEDS: cefTRIAXone 1 GM in D5W 55 ML IVPB SCH (11:30)
--- NOTE | 2018-05-17 11:37 | Nephrology Progress Note ---
Assessment/Plan Problem List: (1) ESRD (end stage renal disease) on dialysis (2) Perforated bowel (3) Hyponatremia (4) Major depression (5) Nausea & vomiting (6) H/O abdominal surgery Assessment: recent Assessment recent abdominal surgery hemodynamically stablized over night Presents with CHF and Low Na ESRD ACS DM HTN h/o GI bleed Depression Plan dialysed 05/15 due for dialysis today- being weaned- on lower pressors insulin for high BS Has abd surgery 05/15 Perforated bowel graft clotted , has a femoral felice right HOLD ALL MIND ALTERING MEDS - DC all po meds FLUID CHALLENGE pressors as needed BP HR Pain control discussed with RN and Dr Karen LAUREN protonix Subjective ROS Limited/Unobtainable: Yes Objective Objective Last 24 Hour Vital Signs Date Time Temp Pulse Resp B/P (MAP) Pulse Ox O2 Delivery O2 Flow Rate FiO2 05/17/18 11:00 104 19 112/46 (68) 100 05/17/18 10:42 104 24 40 05/17/18 10:30 104 24 139/60 (86) 100 05/17/18 10:00 104 23 102/42 (62) 100 05/17/18 09:30 104 25 124/58 (80) 100 05/17/18 09:29 100 05/17/18 09:00 104 26 129/65 (86) 100 05/17/18 08:37 103 19 40 05/17/18 08:30 102 24 141/66 (91) 100 05/17/18 08:00 98.6 91 18 111/67 (82) 100 05/17/18 08:00 Mechanical Ventilator 05/17/18 08:00 69 05/17/18 07:30 104 20 121/62 (81) 100 05/17/18 07:00 104 19 104/61 (75) 100 05/17/18 06:47 104 18 40 05/17/18 06:30 107 18 115/54 (74) 100 05/17/18 06:00 102 18 131/83 (99) 100 05/17/18 05:39 110 146/61 05/17/18 05:30 110 18 146/61 (89) 100 05/17/18 05:10 104 16 40 05/17/18 05:00 104 16 113/62 (79) 100 12/28/18 04:35 122/30 05/17/18 04:30 112 19 114/78 (90) 100 05/17/18 04:00 Mechanical Ventilator Mechanical Ventilator 05/17/18 04:00 105 05/17/18 04:00 98.3 107 18 161/76 (104) 100 05/17/18 04:00 40 05/17/18 03:30 106 17 131/100 (110) 100 05/17/18 02:58 104 16 40 05/17/18 02:30 104 111/15 05/17/18 02:30 101 17 115/83 (94) 100 05/17/18 02:00 87 16 111/91 (98) 100 05/17/18 01:30 96 16 111/61 (78) 100 05/17/18 01:00 111 20 105/81 (89) 100 05/17/18 00:48 91 19 40 05/17/18 00:30 110 20 124/38 (66) 100 05/17/18 00:01 118/47 05/17/18 00:00 40 05/17/18 00:00 Mechanical Ventilator Mechanical Ventilator 05/17/18 00:00 114 05/17/18 00:00 98.6 96 19 113/37 (62) 100 05/16/18 23:53 100 118/47 05/16/18 23:30 98 20 111/18 (49) 100 05/16/18 23:10 92 22 40 05/16/18 23:00 93 20 80/36 (51) 100 05/16/18 22:30 96 20 70/44 (53) 100 05/16/18 22:00 106 20 111/80 (90) 100 05/16/18 22:00 83/53 05/16/18 21:30 99 17 140/34 (69) 100 05/16/18 21:00 97 21 122/49 (73) 100 05/16/18 20:40 104 20 40 05/16/18 20:30 97 19 115/43 (67) 100 05/16/18 20:00 97 18 99/36 (57) 100 05/16/18 20:00 98 05/16/18 20:00 40 05/16/18 20:00 Mechanical Ventilator Mechanical Ventilator 05/16/18 19:30 108 19 91/34 (53) 100 05/16/18 19:10 109 18 40 05/16/18 19:00 98.6 104 20 112/51 (71) 100 05/16/18 18:30 99 19 128/25 (59) 100 18 18:09 121/25 05/16/18 18:00 114/39 05/16/18 18:00 101 19 114/39 (64) 100 05/16/18 17:30 117 19 152/86 (108) 99 05/16/18 17:08 112 22 40 05/16/18 17:00 115 19 129/35 (66) 99 05/16/18 17:00 129/35 05/16/18 16:30 114 19 148/50 (82) 99 05/16/18 16:00 Nasal Cannula 3.0 Nasal Cannula 3.0 05/16/18 16:00 98.9 101 19 99/56 (70) 99 05/16/18 16:00 131/24 05/16/18 15:53 112 108/39 05/16/18 15:45 132/46 05/16/18 15:30 102 22 95/64 (74) 99 05/16/18 15:30 61/17 05/16/18 15:15 135/18 05/16/18 15:00 109 22 95/35 (55) 99 05/16/18 15:00 95/35 05/16/18 14:53 111 20 40 05/16/18 14:30 98/34 05/16/18 14:30 112 23 94/26 (48) 99 05/16/18 14:00 116/21 05/16/18 14:00 113 21 116/21 (52) 99 18 13:45 103/73 05/16/18 13:30 128/52 05/16/18 13:30 118 23 164/75 (104) 98 05/16/18 13:00 174/35 05/16/18 13:00 109 23 174/35 (81) 98 18 12:52 88/42 18 12:38 116 19 40 05/16/18 12:30 114 23 142/88 (106) 98 05/16/18 12:00 98.9 112 24 85/42 (56) 98 05/16/18 12:00 85/42 05/16/18 12:00 111 95/63 05/16/18 12:00 Nasal Cannula 3.0 Nasal Cannula 3.0 05/16/18 11:59 112 31 40 05/16/18 11:45 109 32 96/32 (53) 98 Intake and Output 05/16/18 05/17/18 19:00 07:00 Intake Total 1669.26 ml 584.51 ml Output Total 60 ml 0 ml Balance 1609.26 ml 584.51 ml IV Total 1669.26 ml 584.51 ml Output Urine Total 0 ml 0 ml Drainage Total 60 ml # Voids 2 Current Medications Medications (Trade) Dose Ordered Sig/Min Route PRN Reason Start Time Stop Time Status Last Admin Dose Admin Acetaminophen (Tylenol) 650 mg Q4H PRN ORAL Mild Pain/Temp > 100.5 05/12/18 15:30 06/09/18 15:29 05/13/18 16:39 Ceftriaxone Sodium 1 gm/ Dextrose 55 ml @ 110 mls/hr Q24H IVPB 05/14/18 11:00 05/21/18 10:59 05/17/18 11:30 Chlorhexidine Gluconate (Tatyana-Hex 2%) 1 applic DAILY@2000 TOPIC 05/12/18 20:00 06/11/18 19:59 05/16/18 19:34 Dextrose (Dextrose 50%) 25 ml Q30M PRN IV Hypoglycemia 05/16/18 17:30 06/15/18 17:29 Dextrose (Dextrose 50%) 50 ml Q30M PRN IV Hypoglycemia 05/16/18 17:30 06/15/18 17:29 Fentanyl Citrate 2500 mcg/Sodium Chloride 250 ml @ 0 mls/hr Q24H IV 05/16/18 00:30 05/23/18 00:29 Hydralazine HCl (Apresoline) 10 mg Q4H PRN IV bp over 160 syst 05/14/18 12:00 06/13/18 11:59 Hydrocortisone (Solu-CORTEF) 25 mg EVERY 8 HOURS IV 05/15/18 14:00 06/11/18 21:59 05/17/18 05:34 Hydromorphone HCl (Dilaudid) 1 mg Q2H PRN IVP Severe Pain (Pain Scale 7-10) 05/16/18 10:00 05/21/18 09:14 05/17/18 04:25 Insulin Aspart (NovoLOG) BEFORE MEALS AND HS SUBQ 05/16/18 21:00 06/15/18 20:59 05/17/18 11:33 Metoclopramide HCl (Reglan) 10 mg Q6H PRN IVP Nausea & Vomiting 05/16/18 06:15 06/10/18 15:29 Metoprolol Tartrate (Lopressor) 5 mg Q6HR IVP 05/14/18 12:00 06/13/18 11:59 05/15/18 12:18 Metronidazole 100 ml @ 100 mls/hr Q8HR IVPB 05/15/18 15:00 05/22/18 14:59 05/17/18 05:36 Midazolam HCl 50 mg/Sodium Chloride 100 ml @ 0 mls/hr Q24H IV 05/16/18 00:30 06/15/18 00:29 Midodrine (Pro-Amatine) 5 mg THREE TIMES A DAY ORAL 05/15/18 13:00 06/14/18 12:59 Norepinephrine Bitartrate 4 mg/ Dextrose 250 ml @ 0 mls/hr Q24H IV 05/16/18 08:00 06/15/18 07:59 05/17/18 04:35 Ondansetron HCl (Zofran) 4 mg Q6H PRN IVP Nausea & Vomiting 05/15/18 23:30 06/14/18 23:29 Pantoprazole (Protonix) 40 mg EVERY 12 HOURS IVP 05/12/18 21:00 06/10/18 20:59 05/17/18 09:15 Phenylephrine HCl 50 mg/Dextrose 250 ml @ 0 mls/hr Q24H IV 05/16/18 02:30 06/15/18 02:29 05/16/18 02:58 Laboratory Tests 05/17/18 04:16: White Blood Count 21.2H, Red Blood Count 3.42L, Hemoglobin 10.3L, Hematocrit 31.6L, Mean Corpuscular Volume 92, Mean Corpuscular Hemoglobin 30.2, Mean Corpuscular Hemoglobin Concent 32.8, Red Cell Distribution Width 14.8, Platelet Count 329, Mean Platelet Volume 7.3, Neutrophils (%) (Auto) , Lymphocytes (%) ( Auto) , Monocytes (%) (Auto) , Eosinophils (%) (Auto) , Basophils (%) (Auto) , Differential Total Cells Counted 100, Neutrophils % (Manual) 87H, Lymphocytes % (Manual) 3L, Monocytes % (Manual) 6, Eosinophils % (Manual) 0, Basophils % ( Manual) 0, Band Neutrophils 4, Platelet Estimate Adequate, Platelet Morphology Normal, Anisocytosis 1+, Sodium Level 129L, Potassium Level 5.9H, Chloride Level 90L, Carbon Dioxide Level 18L, Anion Gap 21H, Blood Urea Nitrogen 148H, Creatinine 8.5H, Estimat Glomerular Filtration Rate , Glucose Level 317H, Uric Acid 11.1H, Calcium Level 9.6, Phosphorus Level 11.1H, Magnesium Level 2.2, Total Bilirubin 0.7, Aspartate Amino Transf (AST/SGOT) 52H, Alanine Aminotransferase (ALT/SGPT) 33, Alkaline Phosphatase 151H, Troponin I 0.044, Pro -B-Type Natriuretic Peptide > 36886V, Total Protein 6.0L, Albumin 1.8L, Globulin 4.2, Albumin/Globulin Ratio 0.4L, Amylase Level 312H, Lipase 1994H Height (Feet): 5 Height (Inches): 4.00 Weight (Pounds): 188 EENT: other - on weaning trial Cardiovascular: tachycardia Respiratory/Chest: decreased breath sounds Abdomen: distended Objective no change Maurilio Arroyo MD May 17, 2018 11:37
[2018-05-17] MEDS ORDERED: Heparin Sod 1000 units/ml 10ml INJ SCH (12:00)
--- NOTE | 2018-05-17 13:16 | Infectious Diseases Prog Note ---
Assessment/Plan Assessment/Plan A: 1. serratia , Enterobacter sepsis with shock 2. VRE colonization 3. diabetes mellitus 4. hypertension 5. 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 leucocytosis 6. A fib with RVR 7. Small bowel perforation 8. Perioperative respiratory failure P 1. continue Ceftriaxone & Flagyl 2. will f/u cultures Subjective ROS Limited/Unobtainable: Yes Constitutional: Reports: no symptoms Neurologic: Reports: other - more alert today Allergies: Coded Allergies: No Known Allergies (Unverified , 11/12/12) Objective Vital Signs Last 24 Hour Vital Signs Date Time Temp Pulse Resp B/P (MAP) Pulse Ox O2 Delivery O2 Flow Rate FiO2 05/17/18 13:00 100 17 118/74 (89) 100 05/17/18 12:34 104 21 40 05/17/18 12:30 103 20 135/62 (86) 100 05/17/18 12:00 98.6 78 17 126/43 (70) 100 05/17/18 12:00 69 05/17/18 12:00 Mechanical Ventilator Mechanical Ventilator 05/17/18 12:00 40 05/17/18 12:00 144/49 05/17/18 12:00 96 114/74 05/17/18 11:30 90 18 131/54 (79) 100 05/17/18 11:00 115/54 05/17/18 11:00 104 19 112/46 (68) 100 05/17/18 10:45 115/55 05/17/18 10:42 104 24 40 05/17/18 10:30 139/60 05/17/18 10:30 104 24 139/60 (86) 100 05/17/18 10:15 125/64 05/17/18 10:00 102/42 05/17/18 10:00 104 23 102/42 (62) 100 05/17/18 09:30 104 25 124/58 (80) 100 05/17/18 09:29 100 05/17/18 09:00 104 26 129/65 (86) 100 05/17/18 09:00 125/59 05/17/18 08:37 103 19 40 05/17/18 08:30 102 24 141/66 (91) 100 05/17/18 08:00 98.6 91 18 111/67 (82) 100 05/17/18 08:00 Mechanical Ventilator 05/17/18 08:00 69 05/17/18 08:00 141/66 05/17/18 08:00 40 05/17/18 07:30 104 20 121/62 (81) 100 05/17/18 07:00 104 19 104/61 (75) 100 05/17/18 07:00 119/59 05/17/18 06:47 104 18 40 05/17/18 06:30 107 18 115/54 (74) 100 05/17/18 06:00 102 18 131/83 (99) 100 05/17/18 05:39 110 146/61 05/17/18 05:30 110 18 146/61 (89) 100 05/17/18 05:10 104 16 40 05/17/18 05:00 104 16 113/62 (79) 100 05/17/18 04:35 122/30 05/17/18 04:30 112 19 114/78 (90) 100 05/17/18 04:00 Mechanical Ventilator Mechanical Ventilator 05/17/18 04:00 105 05/17/18 04:00 98.3 107 18 161/76 (104) 100 05/17/18 04:00 40 05/17/18 03:30 106 17 131/100 (110) 100 05/17/18 02:58 104 16 40 05/17/18 02:30 104 111/15 05/17/18 02:30 101 17 115/83 (94) 100 05/17/18 02:00 87 16 111/91 (98) 100 05/17/18 01:30 96 16 111/61 (78) 100 05/17/18 01:00 111 20 105/81 (89) 100 05/17/18 00:48 91 19 40 05/17/18 00:30 110 20 124/38 (66) 100 05/17/18 00:01 118/47 05/17/18 00:00 40 05/17/18 00:00 Mechanical Ventilator Mechanical Ventilator 05/17/18 00:00 114 05/17/18 00:00 98.6 96 19 113/37 (62) 100 05/16/18 23:53 100 118/47 05/16/18 23:30 98 20 111/18 (49) 100 05/16/18 23:10 92 22 40 05/16/18 23:00 93 20 80/36 (51) 100 05/16/18 22:30 96 20 70/44 (53) 100 05/16/18 22:00 106 20 111/80 (90) 100 05/16/18 22:00 83/53 05/16/18 21:30 99 17 140/34 (69) 100 05/16/18 21:00 97 21 122/49 (73) 100 05/16/18 20:40 104 20 40 05/16/18 20:30 97 19 115/43 (67) 100 05/16/18 20:00 97 18 99/36 (57) 100 05/16/18 20:00 98 05/16/18 20:00 40 05/16/18 20:00 Mechanical Ventilator Mechanical Ventilator 05/16/18 19:30 108 19 91/34 (53) 100 05/16/18 19:10 109 18 40 05/16/18 19:00 98.6 104 20 112/51 (71) 100 05/16/18 18:30 99 19 128/25 (59) 100 05/16/18 18:09 121/25 05/16/18 18:00 114/39 05/16/18 18:00 101 19 114/39 (64) 100 05/16/18 17:30 117 19 152/86 (108) 99 05/16/18 17:08 112 22 40 05/16/18 17:00 115 19 129/35 (66) 99 05/16/18 17:00 129/35 05/16/18 16:30 114 19 148/50 (82) 99 05/16/18 16:00 Nasal Cannula 3.0 Nasal Cannula 3.0 05/16/18 16:00 98.9 101 19 99/56 (70) 99 05/16/18 16:00 131/24 05/16/18 15:53 112 108/39 05/16/18 15:45 132/46 05/16/18 15:30 102 22 95/64 (74) 99 05/16/18 15:30 61/17 05/16/18 15:15 135/18 05/16/18 15:00 109 22 95/35 (55) 99 05/16/18 15:00 95/35 05/16/18 14:53 111 20 40 05/16/18 14:30 98/34 12/27/18 14:30 112 23 94/26 (48) 99 05/16/18 14:00 116/21 05/16/18 14:00 113 21 116/21 (52) 99 05/16/18 13:45 103/73 05/16/18 13:30 128/52 05/16/18 13:30 118 23 164/75 (104) 98 Height (Feet): 5 Height (Inches): 4.00 Weight (Pounds): 188 HEENT: other - orally intubated Respiratory/Chest: lungs clear, other - on ventilator Cardiovascular: tachycardia, other - R femoral HD Abdomen: other - surical dressing, drain Neurologic/Psychiatric: alert Microbiology Date/Time Source Procedure Growth Status 05/15/18 22:30 Body Fluid Other Gram Stain - Final Resulted 05/15/18 22:30 Body Fluid Other Aerobic Culture - Preliminary Resulted Laboratory Tests Test 05/17/18 04:16 White Blood Count 21.2 K/UL (4.8-10.8) H Red Blood Count 3.42 M/UL (4.70-6.10) L Hemoglobin 10.3 G/DL (14.2-18.0) L Hematocrit 31.6 % (42.0-52.0) L Mean Corpuscular Volume 92 FL (80-99) Mean Corpuscular Hemoglobin 30.2 PG (27.0-31.0) Mean Corpuscular Hemoglobin Concent 32.8 G/DL (32.0-36.0) Red Cell Distribution Width 14.8 % (11.6-14.8) Platelet Count 329 K/UL (150-450) Mean Platelet Volume 7.3 FL (6.5-10.1) Neutrophils (%) (Auto) % (45.0-75.0) Lymphocytes (%) (Auto) % (20.0-45.0) Monocytes (%) (Auto) % (1.0-10.0) Eosinophils (%) (Auto) % (0.0-3.0) Basophils (%) (Auto) % (0.0-2.0) Differential Total Cells Counted 100 Neutrophils % (Manual) 87 % (45-75) H Lymphocytes % (Manual) 3 % (20-45) L Monocytes % (Manual) 6 % (1-10) Eosinophils % (Manual) 0 % (0-3) Basophils % (Manual) 0 % (0-2) Band Neutrophils 4 % (0-8) Platelet Estimate Adequate Platelet Morphology Normal Anisocytosis 1+ Sodium Level 129 MMOL/L (136-145) L Potassium Level 5.9 MMOL/L (3.5-5.1) H Chloride Level 90 MMOL/L (98-107) L Carbon Dioxide Level 18 MMOL/L (21-32) L Anion Gap 21 mmol/L (5-15) H Blood Urea Nitrogen 148 mg/dL (7-18) H Creatinine 8.5 MG/DL (0.55-1.30) H Estimat Glomerular Filtration Rate mL/min (>60) Glucose Level 317 MG/DL (74-106) H Uric Acid 11.1 MG/DL (2.6-7.2) H Calcium Level 9.6 MG/DL (8.5-10.1) Phosphorus Level 11.1 MG/DL (2.5-4.9) H Magnesium Level 2.2 MG/DL (1.8-2.4) Total Bilirubin 0.7 MG/DL (0.2-1.0) Aspartate Amino Transf (AST/SGOT) 52 U/L (15-37) H Alanine Aminotransferase (ALT/SGPT) 33 U/L (12-78) Alkaline Phosphatase 151 U/L (46-116) H Troponin I 0.044 ng/mL (0.000-0.056) Pro-B-Type Natriuretic Peptide > 13316 pg/mL (0-125) H Total Protein 6.0 G/DL (6.4-8.2) L Albumin 1.8 G/DL (3.4-5.0) L Globulin 4.2 g/dL Albumin/Globulin Ratio 0.4 (1.0-2.7) L Amylase Level 312 U/L (25-115) H Lipase 1994 U/L (73-393) H Current Medications Medications (Trade) Dose Ordered Sig/Min Route PRN Reason Start Time Stop Time Status Last Admin Dose Admin Acetaminophen (Tylenol) 650 mg Q4H PRN ORAL Mild Pain/Temp > 100.5 05/12/18 15:30 06/09/18 15:29 05/13/18 16:39 Ceftriaxone Sodium 1 gm/ Dextrose 55 ml @ 110 mls/hr Q24H IVPB 05/14/18 11:00 05/21/18 10:59 05/17/18 11:30 Chlorhexidine Gluconate (Tatyana-Hex 2%) 1 applic DAILY@2000 TOPIC 05/12/18 20:00 06/11/18 19:59 05/16/18 19:34 Dextrose (Dextrose 50%) 25 ml Q30M PRN IV Hypoglycemia 05/16/18 17:30 06/15/18 17:29 Dextrose (Dextrose 50%) 50 ml Q30M PRN IV Hypoglycemia 05/16/18 17:30 06/15/18 17:29 Fentanyl Citrate 2500 mcg/Sodium Chloride 250 ml @ 0 mls/hr Q24H IV 05/16/18 00:30 05/23/18 00:29 Heparin Sodium (Porcine) (Heparin Sod 1000 units/ml 10ml) 10,000 unit ONCE INJ 05/17/18 12:00 05/17/18 23:59 Hydralazine HCl (Apresoline) 10 mg Q4H PRN IV bp over 160 syst 05/14/18 12:00 06/13/18 11:59 Hydrocortisone (Solu-CORTEF) 25 mg EVERY 8 HOURS IV 05/15/18 14:00 06/11/18 21:59 05/17/18 05:34 Hydromorphone HCl (Dilaudid) 1 mg Q2H PRN IVP Severe Pain (Pain Scale 7-10) 05/16/18 10:00 05/21/18 09:14 05/17/18 04:25 Insulin Aspart (NovoLOG) BEFORE MEALS AND HS SUBQ 05/16/18 21:00 06/15/18 20:59 05/17/18 11:33 Metoclopramide HCl (Reglan) 10 mg Q6H PRN IVP Nausea & Vomiting 05/16/18 06:15 06/10/18 15:29 Metoprolol Tartrate (Lopressor) 5 mg Q6HR IVP 05/14/18 12:00 06/13/18 11:59 05/15/18 12:18 Metronidazole 100 ml @ 100 mls/hr Q8HR IVPB 05/15/18 15:00 05/22/18 14:59 05/17/18 05:36 Midazolam HCl 50 mg/Sodium Chloride 100 ml @ 0 mls/hr Q24H IV 05/16/18 00:30 06/15/18 00:29 Midodrine (Pro-Amatine) 5 mg THREE TIMES A DAY ORAL 05/15/18 13:00 06/14/18 12:59 Norepinephrine Bitartrate 4 mg/ Dextrose 250 ml @ 0 mls/hr Q24H IV 05/16/18 08:00 06/15/18 07:59 05/17/18 04:35 Ondansetron HCl (Zofran) 4 mg Q6H PRN IVP Nausea & Vomiting 05/15/18 23:30 06/14/18 23:29 Pantoprazole (Protonix) 40 mg EVERY 12 HOURS IVP 05/12/18 21:00 06/10/18 20:59 05/17/18 09:15 Phenylephrine HCl 50 mg/Dextrose 250 ml @ 0 mls/hr Q24H IV 05/16/18 02:30 06/15/18 02:29 05/16/18 02:58 Romie Hooks MD May 17, 2018 13:16
--- NOTE | 2018-05-17 13:25 | NUR ---
NURSE NOTES: Dr. Stephenson ordered to have digoxin given qod .125 mg and have digoxin level drawn at 1000 am. he also had metoprolol ivp discontinue, patient is currently on hemodialysis, with Levophed at 2mcg/min with BP at 144/49.
--- NOTE | 2018-05-17 13:59 | Cardiac Electrophysiology PN ---
Assessment/Plan Assessment/Plan 1. Atrial fib/flutter with RVR . On Amio drip and Dig 0.125 qod. Dig level 2.5 on 05/16/18 2. Chest pain. No WI. EKG showed old inferior and anterior wall WI, but no ischemia. ECHO with normal LV function 3. End-stage renal disease, on hemodialysis per Dr. Arroyo. 4. Septic shock, On levophed. Was on Midodrine 5 tid. But now NPO 5. History of kidney stones. 6. History of psychiatric problems, dementia. 7. Hx of lap matthew. S/P SB resection 05/15/18 with drain 8. Respiratory failure. Now intubated on the vent. Failed weaning today DW RN Subjective Subjective In ICU on Amiodarone 0.5 mg and Levophed drip 2mcg. HR around 100 in atrial flutter. Getting HD. Failed weaning again Objective Last 24 Hour Vital Signs Date Time Temp Pulse Resp B/P (MAP) Pulse Ox O2 Delivery O2 Flow Rate FiO2 05/17/18 13:00 100 17 118/74 (89) 100 05/17/18 12:34 104 21 40 05/17/18 12:30 103 20 135/62 (86) 100 05/17/18 12:00 98.6 78 17 126/43 (70) 100 05/17/18 12:00 69 05/17/18 12:00 Mechanical Ventilator Mechanical Ventilator 05/17/18 12:00 40 05/17/18 12:00 144/49 05/17/18 12:00 96 114/74 05/17/18 11:30 90 18 131/54 (79) 100 05/17/18 11:00 115/54 05/17/18 11:00 104 19 112/46 (68) 100 05/17/18 10:45 115/55 05/17/18 10:42 104 24 40 05/17/18 10:30 139/60 05/17/18 10:30 104 24 139/60 (86) 100 05/17/18 10:15 125/64 05/17/18 10:00 102/42 05/17/18 10:00 104 23 102/42 (62) 100 05/17/18 09:30 104 25 124/58 (80) 100 05/17/18 09:29 100 05/17/18 09:00 104 26 129/65 (86) 100 05/17/18 09:00 125/59 05/17/18 08:37 103 19 40 05/17/18 08:30 102 24 141/66 (91) 100 05/17/18 08:00 98.6 91 18 111/67 (82) 100 05/17/18 08:00 Mechanical Ventilator 05/17/18 08:00 69 05/17/18 08:00 141/66 05/17/18 08:00 40 05/17/18 07:30 104 20 121/62 (81) 100 05/17/18 07:00 104 19 104/61 (75) 100 05/17/18 07:00 119/59 05/17/18 06:47 104 18 40 05/17/18 06:30 107 18 115/54 (74) 100 05/17/18 06:00 102 18 131/83 (99) 100 05/17/18 05:39 110 146/61 05/17/18 05:30 110 18 146/61 (89) 100 05/17/18 05:10 104 16 40 05/17/18 05:00 104 16 113/62 (79) 100 05/17/18 04:35 122/30 05/17/18 04:30 112 19 114/78 (90) 100 05/17/18 04:00 Mechanical Ventilator Mechanical Ventilator 05/17/18 04:00 105 05/17/18 04:00 98.3 107 18 161/76 (104) 100 05/17/18 04:00 40 05/17/18 03:30 106 17 131/100 (110) 100 05/17/18 02:58 104 16 40 05/17/18 02:30 104 111/15 05/17/18 02:30 101 17 115/83 (94) 100 05/17/18 02:00 87 16 111/91 (98) 100 05/17/18 01:30 96 16 111/61 (78) 100 05/17/18 01:00 111 20 105/81 (89) 100 05/17/18 00:48 91 19 40 05/17/18 00:30 110 20 124/38 (66) 100 05/17/18 00:01 118/47 05/17/18 00:00 40 05/17/18 00:00 Mechanical Ventilator Mechanical Ventilator 05/17/18 00:00 114 05/17/18 00:00 98.6 96 19 113/37 (62) 100 05/16/18 23:53 100 118/47 05/16/18 23:30 98 20 111/18 (49) 100 05/16/18 23:10 92 22 40 05/16/18 23:00 93 20 80/36 (51) 100 05/16/18 22:30 96 20 70/44 (53) 100 05/16/18 22:00 106 20 111/80 (90) 100 05/16/18 22:00 83/53 05/16/18 21:30 99 17 140/34 (69) 100 05/16/18 21:00 97 21 122/49 (73) 100 05/16/18 20:40 104 20 40 05/16/18 20:30 97 19 115/43 (67) 100 05/16/18 20:00 97 18 99/36 (57) 100 05/16/18 20:00 98 05/16/18 20:00 40 05/16/18 20:00 Mechanical Ventilator Mechanical Ventilator 05/16/18 19:30 108 19 91/34 (53) 100 05/16/18 19:10 109 18 40 05/16/18 19:00 98.6 104 20 112/51 (71) 100 05/16/18 18:30 99 19 128/25 (59) 100 05/16/18 18:09 121/25 05/16/18 18:00 114/39 05/16/18 18:00 101 19 114/39 (64) 100 05/16/18 17:30 117 19 152/86 (108) 99 05/16/18 17:08 112 22 40 05/16/18 17:00 115 19 129/35 (66) 99 05/16/18 17:00 129/35 05/16/18 16:30 114 19 148/50 (82) 99 05/16/18 16:00 Nasal Cannula 3.0 Nasal Cannula 3.0 05/16/18 16:00 98.9 101 19 99/56 (70) 99 05/16/18 16:00 131/24 05/16/18 15:53 112 108/39 05/16/18 15:45 132/46 05/16/18 15:30 102 22 95/64 (74) 99 05/16/18 15:30 61/17 05/16/18 15:15 135/18 05/16/18 15:00 109 22 95/35 (55) 99 05/16/18 15:00 95/35 05/16/18 14:53 111 20 40 05/16/18 14:30 98/34 05/16/18 14:30 112 23 94/26 (48) 99 05/16/18 14:00 116/21 05/16/18 14:00 113 21 116/21 (52) 99 Intake and Output 05/16/18 05/17/18 19:00 07:00 Intake Total 1669.26 ml 599.51 ml Output Total 60 ml 0 ml Balance 1609.26 ml 599.51 ml IV Total 1669.26 ml 599.51 ml Output Urine Total 0 ml 0 ml Drainage Total 60 ml # Voids 2 Laboratory Tests Test 05/17/18 04:16 White Blood Count 21.2 K/UL (4.8-10.8) H Red Blood Count 3.42 M/UL (4.70-6.10) L Hemoglobin 10.3 G/DL (14.2-18.0) L Hematocrit 31.6 % (42.0-52.0) L Mean Corpuscular Volume 92 FL (80-99) Mean Corpuscular Hemoglobin 30.2 PG (27.0-31.0) Mean Corpuscular Hemoglobin Concent 32.8 G/DL (32.0-36.0) Red Cell Distribution Width 14.8 % (11.6-14.8) Platelet Count 329 K/UL (150-450) Mean Platelet Volume 7.3 FL (6.5-10.1) Neutrophils (%) (Auto) % (45.0-75.0) Lymphocytes (%) (Auto) % (20.0-45.0) Monocytes (%) (Auto) % (1.0-10.0) Eosinophils (%) (Auto) % (0.0-3.0) Basophils (%) (Auto) % (0.0-2.0) Differential Total Cells Counted 100 Neutrophils % (Manual) 87 % (45-75) H Lymphocytes % (Manual) 3 % (20-45) L Monocytes % (Manual) 6 % (1-10) Eosinophils % (Manual) 0 % (0-3) Basophils % (Manual) 0 % (0-2) Band Neutrophils 4 % (0-8) Platelet Estimate Adequate Platelet Morphology Normal Anisocytosis 1+ Sodium Level 129 MMOL/L (136-145) L Potassium Level 5.9 MMOL/L (3.5-5.1) H Chloride Level 90 MMOL/L (98-107) L Carbon Dioxide Level 18 MMOL/L (21-32) L Anion Gap 21 mmol/L (5-15) H Blood Urea Nitrogen 148 mg/dL (7-18) H Creatinine 8.5 MG/DL (0.55-1.30) H Estimat Glomerular Filtration Rate mL/min (>60) Glucose Level 317 MG/DL (74-106) H Uric Acid 11.1 MG/DL (2.6-7.2) H Calcium Level 9.6 MG/DL (8.5-10.1) Phosphorus Level 11.1 MG/DL (2.5-4.9) H Magnesium Level 2.2 MG/DL (1.8-2.4) Total Bilirubin 0.7 MG/DL (0.2-1.0) Aspartate Amino Transf (AST/SGOT) 52 U/L (15-37) H Alanine Aminotransferase (ALT/SGPT) 33 U/L (12-78) Alkaline Phosphatase 151 U/L (46-116) H Troponin I 0.044 ng/mL (0.000-0.056) Pro-B-Type Natriuretic Peptide > 06073 pg/mL (0-125) H Total Protein 6.0 G/DL (6.4-8.2) L Albumin 1.8 G/DL (3.4-5.0) L Globulin 4.2 g/dL Albumin/Globulin Ratio 0.4 (1.0-2.7) L Amylase Level 312 U/L (25-115) H Lipase 1994 U/L (73-393) H Microbiology Date/Time Source Procedure Growth Status 05/15/18 22:30 Body Fluid Other Gram Stain - Final Resulted 05/15/18 22:30 Body Fluid Other Aerobic Culture - Preliminary Resulted Objective HEENT: PERRL/EOMI, Orally intubated Cardiovascular: irregular, tachycardia Respiratory/Chest: chest wall non-tender, lungs clear, normal breath sounds, no respiratory distress Abdomen: Post op.with one VELVET drain Extremities: No edema Right groin dialysis catheter Everett Stephenson MD May 17, 2018 13:59
--- NOTE | 2018-05-17 15:30 | NUR ---
NURSE NOTES: Hemodialysis completed with 450ml removed, nurse dressed the central line on the right femoral, patient BP is 129/74 with HR at 74 in sinus rhythm with RR of 17 and saturations of 100% on FIO2 of 40%. remains on Levophed with 4mcg/min after hemodialysis, patient is calm and resting in bed with ventilator settings of AC 16, TV: 600, FIO2: 40% with peep of 5, VELVET drain is draining clear pinkish yellow drainage, will continue to monitor.
--- NOTE | 2018-05-17 15:46 | Pulmonolgy Critical Care Note ---
Critical Care - Asmt/Plan Problems: (1) Shock Assessment & Plan: Resolved (2) Hypoxemia Assessment & Plan: Improved (3) Elevated d-dimer Assessment & Plan: S/P neg CT-A (4) Hypotension Assessment & Plan: Resolved (5) Atrial fibrillation (6) ESRD (end stage renal disease) on dialysis (7) ACS (acute coronary syndrome) (8) Sacral decubitus ulcer, stage III (9) S/P cholecystectomy (10) Serratia sepsis (11) S/P exploratory laparotomy (12) Perforated viscus Assessment/Plan: -Post-op recs -Pain control/supportive care -Continue ventilatory support/settings reviewed -Daily SBP -Titrate down FiO2 to keep SaO2 > 90%, continue PEEP 5 -HD per renal -Titrate NE to keep MAP > 60 -Amio gtt per cards/EPS, off Dilt -Heparin held, resume when ok with surgery -Monitor for bleeding -Abx per ID, F/U Cx's -Decrease HC to 12.5 TID and taper -FC D/W Dr. Chandler D/W RN and RT CCT 55 Critical Care - Objective Last 24 Hour Vital Signs Date Time Temp Pulse Resp B/P (MAP) Pulse Ox O2 Delivery O2 Flow Rate FiO2 05/17/18 15:30 75 16 119/16 (50) 100 05/17/18 15:03 95 25 40 05/17/18 15:00 92 21 117/70 (86) 100 05/17/18 14:30 103 21 126/66 (86) 100 05/17/18 14:00 94 19 100/52 (68) 100 05/17/18 13:30 92 20 117/60 (79) 100 05/17/18 13:00 100 17 118/74 (89) 100 05/17/18 12:34 104 21 40 05/17/18 12:30 103 20 135/62 (86) 100 05/17/18 12:00 98.6 78 17 126/43 (70) 100 05/17/18 12:00 69 05/17/18 12:00 Mechanical Ventilator Mechanical Ventilator 05/17/18 12:00 40 05/17/18 12:00 144/49 05/17/18 12:00 96 114/74 05/17/18 11:30 90 18 131/54 (79) 100 05/17/18 11:00 115/54 05/17/18 11:00 104 19 112/46 (68) 100 05/17/18 10:45 115/55 05/17/18 10:42 104 24 40 05/17/18 10:30 139/60 05/17/18 10:30 104 24 139/60 (86) 100 05/17/18 10:15 125/64 05/17/18 10:00 102/42 05/17/18 10:00 104 23 102/42 (62) 100 05/17/18 09:30 104 25 124/58 (80) 100 05/17/18 09:29 100 05/17/18 09:00 104 26 129/65 (86) 100 05/17/18 09:00 125/59 05/17/18 08:37 103 19 40 05/17/18 08:30 102 24 141/66 (91) 100 05/17/18 08:00 98.6 91 18 111/67 (82) 100 05/17/18 08:00 Mechanical Ventilator 05/17/18 08:00 69 05/17/18 08:00 141/66 05/17/18 08:00 40 05/17/18 07:30 104 20 121/62 (81) 100 05/17/18 07:00 104 19 104/61 (75) 100 05/17/18 07:00 119/59 05/17/18 06:47 104 18 40 05/17/18 06:30 107 18 115/54 (74) 100 05/17/18 06:00 102 18 131/83 (99) 100 05/17/18 05:39 110 146/61 05/17/18 05:30 110 18 146/61 (89) 100 05/17/18 05:10 104 16 40 05/17/18 05:00 104 16 113/62 (79) 100 05/17/18 04:35 122/30 05/17/18 04:30 112 19 114/78 (90) 100 05/17/18 04:00 Mechanical Ventilator Mechanical Ventilator 05/17/18 04:00 105 05/17/18 04:00 98.3 107 18 161/76 (104) 100 05/17/18 04:00 40 05/17/18 03:30 106 17 131/100 (110) 100 05/17/18 02:58 104 16 40 05/17/18 02:30 104 111/15 05/17/18 02:30 101 17 115/83 (94) 100 05/17/18 02:00 87 16 111/91 (98) 100 05/17/18 01:30 96 16 111/61 (78) 100 05/17/18 01:00 111 20 105/81 (89) 100 05/17/18 00:48 91 19 40 05/17/18 00:30 110 20 124/38 (66) 100 05/17/18 00:01 118/47 05/17/18 00:00 40 05/17/18 00:00 Mechanical Ventilator Mechanical Ventilator 05/17/18 00:00 114 05/17/18 00:00 98.6 96 19 113/37 (62) 100 05/16/18 23:53 100 118/47 05/16/18 23:30 98 20 111/18 (49) 100 05/16/18 23:10 92 22 40 05/16/18 23:00 93 20 80/36 (51) 100 05/16/18 22:30 96 20 70/44 (53) 100 05/16/18 22:00 106 20 111/80 (90) 100 05/16/18 22:00 83/53 05/16/18 21:30 99 17 140/34 (69) 100 05/16/18 21:00 97 21 122/49 (73) 100 05/16/18 20:40 104 20 40 05/16/18 20:30 97 19 115/43 (67) 100 05/16/18 20:00 97 18 99/36 (57) 100 05/16/18 20:00 98 05/16/18 20:00 40 05/16/18 20:00 Mechanical Ventilator Mechanical Ventilator 05/16/18 19:30 108 19 91/34 (53) 100 05/16/18 19:10 109 18 40 05/16/18 19:00 98.6 104 20 112/51 (71) 100 05/16/18 18:30 99 19 128/25 (59) 100 05/16/18 18:09 121/25 05/16/18 18:00 114/39 05/16/18 18:00 101 19 114/39 (64) 100 12/27/18 17:30 117 19 152/86 (108) 99 05/16/18 17:08 112 22 40 05/16/18 17:00 115 19 129/35 (66) 99 05/16/18 17:00 129/35 05/16/18 16:30 114 19 148/50 (82) 99 05/16/18 16:00 Nasal Cannula 3.0 Nasal Cannula 3.0 05/16/18 16:00 98.9 101 19 99/56 (70) 99 05/16/18 16:00 131/24 05/16/18 15:53 112 108/39 05/16/18 15:45 132/46 Status: other - intubated, sedated Condition: critical HEENT: atraumatic, normocephalic, other - ETT Lungs: rhonchi Heart: HR/BP unstable Abdomen: soft, non-tender, other - hypoactive BS, VELVET Extremities: edema - 1+ Decubiti: location - sacra Micro: Microbiology Date/Time Source Procedure Growth Status 05/15/18 22:30 Body Fluid Other Gram Stain - Final Resulted 05/15/18 22:30 Body Fluid Other Aerobic Culture - Preliminary Resulted Accucheck: 198 Blood Sugars: BS controlled Critical Care - Subjective ROS Limited/Unobtainable: Yes ICU Day: 6 Intubation Day: 3 Interval Events: SBT x 2 hours In/out AFFl/NSR S/P HD -450 Surg recs TPN NPO No BM Condition: critical IV Access: central EKG Rhythm: Atrial Flutter FI02: 40 Vent Support Breath Rate: 16 Vent Support Mode: AC Vent Tidal Volume: 600 Sputum Amount: Scant PEEP: 5.0 PIP: 22 Drips: NE@4 & AMIO I&O: Intake and Output 05/16/18 05/17/18 19:00 07:00 Intake Total 1669.26 ml 599.51 ml Output Total 60 ml 0 ml Balance 1609.26 ml 599.51 ml IV Total 1669.26 ml 599.51 ml Output Urine Total 0 ml 0 ml Drainage Total 60 ml # Voids 2 Subjective: CROW ET-Tube: 7.5 ET Position: 22 Labs: Laboratory Tests Test 05/17/18 04:16 White Blood Count 21.2 K/UL (4.8-10.8) H Red Blood Count 3.42 M/UL (4.70-6.10) L Hemoglobin 10.3 G/DL (14.2-18.0) L Hematocrit 31.6 % (42.0-52.0) L Mean Corpuscular Volume 92 FL (80-99) Mean Corpuscular Hemoglobin 30.2 PG (27.0-31.0) Mean Corpuscular Hemoglobin Concent 32.8 G/DL (32.0-36.0) Red Cell Distribution Width 14.8 % (11.6-14.8) Platelet Count 329 K/UL (150-450) Mean Platelet Volume 7.3 FL (6.5-10.1) Neutrophils (%) (Auto) % (45.0-75.0) Lymphocytes (%) (Auto) % (20.0-45.0) Monocytes (%) (Auto) % (1.0-10.0) Eosinophils (%) (Auto) % (0.0-3.0) Basophils (%) (Auto) % (0.0-2.0) Differential Total Cells Counted 100 Neutrophils % (Manual) 87 % (45-75) H Lymphocytes % (Manual) 3 % (20-45) L Monocytes % (Manual) 6 % (1-10) Eosinophils % (Manual) 0 % (0-3) Basophils % (Manual) 0 % (0-2) Band Neutrophils 4 % (0-8) Platelet Estimate Adequate Platelet Morphology Normal Anisocytosis 1+ Sodium Level 129 MMOL/L (136-145) L Potassium Level 5.9 MMOL/L (3.5-5.1) H Chloride Level 90 MMOL/L (98-107) L Carbon Dioxide Level 18 MMOL/L (21-32) L Anion Gap 21 mmol/L (5-15) H Blood Urea Nitrogen 148 mg/dL (7-18) H Creatinine 8.5 MG/DL (0.55-1.30) H Estimat Glomerular Filtration Rate mL/min (>60) Glucose Level 317 MG/DL (74-106) H Uric Acid 11.1 MG/DL (2.6-7.2) H Calcium Level 9.6 MG/DL (8.5-10.1) Phosphorus Level 11.1 MG/DL (2.5-4.9) H Magnesium Level 2.2 MG/DL (1.8-2.4) Total Bilirubin 0.7 MG/DL (0.2-1.0) Aspartate Amino Transf (AST/SGOT) 52 U/L (15-37) H Alanine Aminotransferase (ALT/SGPT) 33 U/L (12-78) Alkaline Phosphatase 151 U/L (46-116) H Troponin I 0.044 ng/mL (0.000-0.056) Pro-B-Type Natriuretic Peptide > 69519 pg/mL (0-125) H Total Protein 6.0 G/DL (6.4-8.2) L Albumin 1.8 G/DL (3.4-5.0) L Globulin 4.2 g/dL Albumin/Globulin Ratio 0.4 (1.0-2.7) L Amylase Level 312 U/L (25-115) H Lipase 1994 U/L (73-393) H Daryl Jones MD May 17, 2018 15:46
--- NOTE | 2018-05-17 16:18 | General Progress Note ---
Progress Note Progress Note surgery still remains intubated awake and alert abd pain wound c/d/i drains serous npo iv fluids iv abx wean and extubated when ready will start trail liquid diet once extubated. hold tpn for now thank you Tomas Chandler May 17, 2018 16:18
--- NOTE | 2018-05-17 16:22 | NUR ---
NURSE NOTES: clarified with dr. fragoso if orders for NG-tube can be placed to start feeding, stated to hold of on ng-tubes and tube feeding or TPN, once patient is extubated he can be started on clear liquids, no verbal orders given at this time.
--- NOTE | 2018-05-17 17:01 | NUR ---
CASE MANAGEMENT: REVIEW SI: ESRD ON HD . ACS . A-FIB RIGHT FEMORAL TEMPORARY HEMODIALYSIS CATHETER INSERTION 05/13 T 98.6 HR 104 RR 25 BP 100/52 SAT 100% MECH VENT FIO2 40 WBC 21.2 H/H 10.3/31.6 NA 129 K 5.9 BUN 21 CR 8.5 IS: AMIODARONE IV Q24HR FENTANYL IV Q24HR VERSED IV Q24HR FLAGYL IV Q8HR SOLU CORTEF IV Q8HR MIDODRINE PO TID CEFTRIAXONE IV Q24HR HD PRN ICU STATUS DCP: PATIENT IS FROM HOME
[2018-05-17] MEDS ORDERED: Amiodarone 900 MG in D5W 500ml 482 ML IV SCH (17:15)
--- NOTE | 2018-05-17 19:17 | NUR ---
HAND-OFF: Report given to MINGO Emery.
[2018-05-17] MEDS: Dyna-Hex 2% Top Sol 2oz TOPIC SCH (19:22)
--- NOTE | 2018-05-17 19:30 | NUR ---
NURSE NOTES: Received pt in bed with eyes closed, opens eyes to tactile and verbal stimuli. Sinus rhythm on the monitor with HR 77. Pt able to answer simple questions with simple nodding. Orally intubated on Ac 16, Vt 500, P 5 fio2 30%. Pt continues NPO at this time. Right upper arm and right FA IV sites patent and intact at this time. Amio gtt running @ 0.5 mg/min. Right femoral Dialysis cath noted with dressing dry and intact. LISA old AV shunt noted. abdominal dressing noted to be dry and intact. Left side VELVET drainage noted with Serosanguineous output at this time. SCD's on at this time. On contact precautions. Bed in lowest position, side rails upx3. No signs of distress noted. Will continue with plan of care.
--- NOTE | 2018-05-17 21:00 | NUR ---
NURSE NOTES: Pt turned and repositioned at this time. Sinus rhythm on the monitor with HR 83. After pain medication was given patients FLACC score 0/10. SBP > 100. Tolerating current vent settings, FIO2 now 35%. Will continue to monitor.
--- NOTE | 2018-05-17 21:23 | General Progress Note ---
Assessment/Plan Assessment/Plan COVERING FOR DR. IRVIN ASSESSMENT AND RECOMMENDATIONS # Small bowel perforation, s/p bowel resection, with Gram negative sepsis is on abx In ICU s/p Small bowel resection on Amiodarone and Levophed drip. HR around 100. --> on broad spectrum abx --> on vanc/cefepime as per id--> now changed to ceftriaxone --> s/p sb resection on 05/15, appreciate surg recs --> on pressors as well,++ vent # Lower extremity edema with an elevated BNP in a patient with renal failure on hemodialysis. --> on HD per Dr. Arroyo. --> currently has improved # Atrial fib w rvr/flutter, and Chest pain, rule out acs --> Cardiology is following, appreciate recs, echo was reviewed --> Currently denies any chest pain, completely rule out ACS --> EKG showed old inferior and anterior wall TX, but no ischemia. --> ECHO with normal LV function --> on heparin gtt 05/13 for potential pe, cta neg --> now d/albert # End-stage renal disease, on hemodialysis and also hyponatremia. --> Nephro is following, appreciate recs. --> On intermittent HD # Anemia of chronic disease due to underlying chronic medical issues, multifactorial. --> anemia w/u reviewed --> Monitor for stability Subjective Constitutional: Denies: no symptoms, chills, diaphoresis, fever, malaise, weakness, other HEENT: Denies: no symptoms, eye pain, blurred vision, tearing, double vision, ear pain, ear discharge, nose pain, nose congestion, throat pain, throat swelling, mouth pain, mouth swelling, other Respiratory: Denies: no symptoms, cough, orthopnea, shortness of breath, SOB with excertion, SOB at rest, sputum, stridor, wheezing, other Gastrointestinal/Abdominal: Denies: no symptoms, abdomen distended, abdominal pain, black stools, tarry stools, blood in stool, constipated, diarrhea, difficulty swallowing, nausea, poor appetite, poor fluid intake, rectal bleeding , vomiting, other Genitourinary: Denies: no symptoms, burning, discharge, frequency, flank pain, hematuria, incontinence, pain, urgency, other Neurologic/Psychiatric: Denies: no symptoms, anxiety, depressed, emotional problems, headache, numbness, paresthesia, pre-existing deficit, seizure, tingling, tremors, weakness, other Endocrine: Denies: no symptoms, excessive sweating, flushing, intolerance to cold, intolerance to heat, increased hunger, increased thirst, increased urine, unexplained weight gain, unexplained weight loss, other Allergies: Coded Allergies: No Known Allergies (Unverified , 11/12/12) Subjective 05/12: Pt resting in bed. No acute events. H/H stable. On abx. VS stable. 05/13: on pressors, on hep gtt, on steriods, abx, got hd, felice catheter in place : CT-A was negative, hep gtt as per cards, abg reviewed, moaning on exam, on ceftriaxone 05/15 :Pt remains in ICU. Currently undergoing HD. Pt on 2 cardiac drips for elevated Bp. WBC remains elevated. H/H stable. 05/16: s/p sb resection, In ICU s/p Small bowel resection on Amiodarone and Levophed drip. HR around 100. 05/17: Orally intubated on Ac 16, Vt 500, P 5 fio2 30%. Pt continues NPO at this time. Right upper arm and right FA IV sites patent and intact at this time. Amio gtt running Objective Last 24 Hour Vital Signs Date Time Temp Pulse Resp B/P (MAP) Pulse Ox O2 Delivery O2 Flow Rate FiO2 05/17/18 20:36 77 16 28 05/17/18 19:38 73 16 40 05/17/18 18:30 83 22 159/61 (93) 100 05/17/18 18:00 81 20 150/65 (93) 100 05/17/18 17:45 87 20 158/64 (95) 100 05/17/18 17:30 85 20 158/62 (94) 100 05/17/18 17:27 Endotracheal Tube 05/17/18 17:24 Endotracheal Tube 40 05/17/18 17:15 87 23 186/68 (107) 100 05/17/18 17:15 186/68 05/17/18 17:06 73 19 30 05/17/18 17:00 80 21 180/67 (104) 100 05/17/18 17:00 181/62 05/17/18 16:45 71 14 127/59 (81) 100 05/17/18 16:30 72 14 154/59 (90) 100 05/17/18 16:15 72 14 121/55 (77) 100 05/17/18 16:00 Mechanical Ventilator Mechanical Ventilator 05/17/18 16:00 157/59 05/17/18 16:00 79 05/17/18 16:00 98.6 80 18 157/59 (91) 100 05/17/18 16:00 30 05/17/18 15:50 30 05/17/18 15:45 75 16 134/66 (88) 100 05/17/18 15:30 100/52 05/17/18 15:30 75 16 119/16 (50) 100 05/17/18 15:03 95 25 40 05/17/18 15:00 117/70 05/17/18 15:00 92 21 117/70 (86) 100 05/17/18 14:30 103 21 126/66 (86) 100 05/17/18 14:00 94 19 100/52 (68) 100 05/17/18 13:30 92 20 117/60 (79) 100 05/17/18 13:00 100 17 118/74 (89) 100 05/17/18 12:34 104 21 40 05/17/18 12:30 103 20 135/62 (86) 100 05/17/18 12:00 98.6 78 17 126/43 (70) 100 05/17/18 12:00 69 05/17/18 12:00 Mechanical Ventilator Mechanical Ventilator 05/17/18 12:00 40 05/17/18 12:00 144/49 05/17/18 12:00 96 114/74 05/17/18 11:30 90 18 131/54 (79) 100 05/17/18 11:00 115/54 05/17/18 11:00 104 19 112/46 (68) 100 05/17/18 10:45 115/55 05/17/18 10:42 104 24 40 05/17/18 10:30 139/60 05/17/18 10:30 104 24 139/60 (86) 100 05/17/18 10:15 125/64 05/17/18 10:00 102/42 05/17/18 10:00 104 23 102/42 (62) 100 05/17/18 09:30 104 25 124/58 (80) 100 05/17/18 09:29 100 05/17/18 09:00 104 26 129/65 (86) 100 05/17/18 09:00 125/59 05/17/18 08:37 103 19 40 05/17/18 08:30 102 24 141/66 (91) 100 05/17/18 08:00 98.6 91 18 111/67 (82) 100 05/17/18 08:00 Mechanical Ventilator 05/17/18 08:00 69 05/17/18 08:00 141/66 05/17/18 08:00 40 05/17/18 07:30 104 20 121/62 (81) 100 05/17/18 07:00 104 19 104/61 (75) 100 05/17/18 07:00 119/59 05/17/18 06:47 104 18 40 05/17/18 06:30 107 18 115/54 (74) 100 05/17/18 06:00 102 18 131/83 (99) 100 05/17/18 05:39 110 146/61 05/17/18 05:30 110 18 146/61 (89) 100 05/17/18 05:10 104 16 40 05/17/18 05:00 104 16 113/62 (79) 100 05/17/18 04:35 122/30 05/17/18 04:30 112 19 114/78 (90) 100 05/17/18 04:00 Mechanical Ventilator Mechanical Ventilator 05/17/18 04:00 105 05/17/18 04:00 98.3 107 18 161/76 (104) 100 05/17/18 04:00 40 05/17/18 03:30 106 17 131/100 (110) 100 05/17/18 02:58 104 16 40 05/17/18 02:30 104 111/15 05/17/18 02:30 101 17 115/83 (94) 100 05/17/18 02:00 87 16 111/91 (98) 100 05/17/18 01:30 96 16 111/61 (78) 100 05/17/18 01:00 111 20 105/81 (89) 100 05/17/18 00:48 91 19 40 05/17/18 00:30 110 20 124/38 (66) 100 05/17/18 00:01 118/47 05/17/18 00:00 40 05/17/18 00:00 Mechanical Ventilator Mechanical Ventilator 05/17/18 00:00 114 05/17/18 00:00 98.6 96 19 113/37 (62) 100 05/16/18 23:53 100 118/47 05/16/18 23:30 98 20 111/18 (49) 100 05/16/18 23:10 92 22 40 05/16/18 23:00 93 20 80/36 (51) 100 05/16/18 22:30 96 20 70/44 (53) 100 05/16/18 22:00 106 20 111/80 (90) 100 05/16/18 22:00 83/53 05/16/18 21:30 99 17 140/34 (69) 100 Intake and Output 05/16/18 05/17/18 19:00 07:00 Intake Total 1669.26 ml 616.17 ml Output Total 60 ml 45 ml Balance 1609.26 ml 571.17 ml IV Total 1669.26 ml 616.17 ml Output Urine Total 0 ml 0 ml Drainage Total 60 ml 45 ml # Voids 2 Laboratory Tests 05/17/18 04:16: White Blood Count 21.2H, Red Blood Count 3.42L, Hemoglobin 10.3L, Hematocrit 31.6L, Mean Corpuscular Volume 92, Mean Corpuscular Hemoglobin 30.2, Mean Corpuscular Hemoglobin Concent 32.8, Red Cell Distribution Width 14.8, Platelet Count 329, Mean Platelet Volume 7.3, Neutrophils (%) (Auto) , Lymphocytes (%) ( Auto) , Monocytes (%) (Auto) , Eosinophils (%) (Auto) , Basophils (%) (Auto) , Differential Total Cells Counted 100, Neutrophils % (Manual) 87H, Lymphocytes % (Manual) 3L, Monocytes % (Manual) 6, Eosinophils % (Manual) 0, Basophils % ( Manual) 0, Band Neutrophils 4, Platelet Estimate Adequate, Platelet Morphology Normal, Anisocytosis 1+, Sodium Level 129L, Potassium Level 5.9H, Chloride Level 90L, Carbon Dioxide Level 18L, Anion Gap 21H, Blood Urea Nitrogen 148H, Creatinine 8.5H, Estimat Glomerular Filtration Rate , Glucose Level 317H, Uric Acid 11.1H, Calcium Level 9.6, Phosphorus Level 11.1H, Magnesium Level 2.2, Total Bilirubin 0.7, Aspartate Amino Transf (AST/SGOT) 52H, Alanine Aminotransferase (ALT/SGPT) 33, Alkaline Phosphatase 151H, Troponin I 0.044, Pro -B-Type Natriuretic Peptide > 51022U, Total Protein 6.0L, Albumin 1.8L, Globulin 4.2, Albumin/Globulin Ratio 0.4L, Amylase Level 312H, Lipase 1994H Height (Feet): 5 Height (Inches): 4.00 Weight (Pounds): 188 Objective PHYSICAL EXAMINATION: VITAL SIGNS: Have been reviewed HEENT: PERRLA. NECK: Supple. No lymphadenopathy. CHEST: ++ intubated CARDIOVASCULAR: Tachycardic. GASTROINTESTINAL: Distended. Positive bowel sounds. Nontender. No organomegaly. + ryan drain in place EXTREMITY: A 1+ edema. Reflexes are equal on both sides. Reinaldo Leon MD May 17, 2018 21:23
--- NOTE | 2018-05-17 23:00 | NUR ---
NURSE NOTES: Pt remains sleeping at this time, tolerating current vent settings, FIO2 28%. VELVET drainage noted to be draining serous Fluid. No signs of distress noted. Will continue with plan of care.
[2018-05-18] VITALS (26 sets, daily range): BP systolic 98–219; BP diastolic 29–70
[2018-05-18] MEDS: Midazolam for drip 50 MG in NS 90 ML IV SCH (00:05)
[2018-05-18] MEDS: fentaNYL Citrate 2,500 MCG in NS 200 ML IV SCH (00:05)
--- NOTE | 2018-05-18 01:55 | NUR ---
NURSE NOTES: After pain medication, patient noted to be more calm. Currently sleeping SBP >100. Will continue with plan of care
--- NOTE | 2018-05-18 02:09 | NUR ---
NURSE NOTES: Pt noted to be anxious at this time. When asked if he is anxious he is able to nod yes. Paged MD Jones
--- NOTE | 2018-05-18 02:20 | NUR ---
NURSE NOTES: Pt noted to desaturate at this time. FIO2 increased from 28% to 60%. Pt continues to be slightly anxious at this time. Will continue to monitor.
--- NOTE | 2018-05-18 04:30 | NUR ---
NURSE NOTES: pt noted to be more awake at this time. Morning CHG bath given at this time, Pt requests to sit up up bed. Fio2 titrated now at 40%. NO signs of distress noted. Will continue with plan of care.
[2018-05-18] MEDS: Hydrocortisone 100mg Inj IV SCH ×3 (05:27→21:38)
[2018-05-18] MEDS: NovoLOG Insulin Flexpen SUBQ SCH ×4 (05:28→21:57)
--- NOTE | 2018-05-18 05:30 | NUR ---
NURSE NOTES: BS 131 this morning. Coverage given per sliding scale at this time. Pt seems more comfortable after pain medication and sitting up in bed. Denies any pain or discomfort. Will continue to monitor.
--- NOTE | 2018-05-18 07:14 | NUR ---
HAND-OFF: Report given to Jenna AGUILA using SBAR. VS Stable.
--- NOTE | 2018-05-18 07:20 | NUR ---
NURSE NOTES: Patient received from MINGO Emery. Patient is observed to be awake, alert and sitting up in the bed. Patient opens eyes spontaneously, follows commands and responds with head nods yes and no. Patient does not appear in any acute distress. Patient is being monitored on the ekg monitor. VS 129/56, HR 82, RR 23 SPO2 97%. Patient has now converted and is in SR on the monitor. Patient is orally intubated with vent settings AC 16, TV 500, FIO2 40% and PEEP +5. Oral care was performed. Upon auscultation, patient has NL breath sounds. RT will begin wean at 0730. Patient continues to be NPO at this time with accuchecks that are improving. Belly sounds are hypoactive and no reported BMs as of yet. Patient is anuric. Patient has ADILENE and RFA IV sites that patent and intact with Amiodarone running at 0.5 mg/min. Patient has a RFem Baljeet for HD. Patient is s/p Ex Lap and small bowel resection with abdominal dressing that is dry and intact. Patient has L VELVET drain draining serosanguineous fluid. Patient has SCD's on BLE. Safety measures are in place with bed locked in the lowest position, side rails upx3. Will continue to monitor and follow plan of care.
[2018-05-18 08:33] LABS: HEMATOCRIT 22.6 % (42.0-52.0); HEMOGLOBIN 7.6 G/DL (14.2-18.0); MEAN CORPUSCULAR VOLUME 92 FL (80-99); PLATELET COUNT 314 K/UL (150-450); RED BLOOD COUNT 2.46 M/UL (4.70-6.10); RED CELL DISTRIBUTION WIDTH 14.7 % (11.6-14.8)
[2018-05-18] MEDS: Pantoprazole Inj IVP SCH ×2 (08:51→21:39)
[2018-05-18 08:52] LABS: ANION GAP 19 mmol/L (5-15); BLOOD UREA NITROGEN 125 mg/dL (7-18); CALCIUM 8.6 MG/DL (8.5-10.1); CARBON DIOXIDE 20 MMOL/L (21-32); CHLORIDE 93 MMOL/L (98-107); CREATININE 7.1 MG/DL (0.55-1.30); POTASSIUM 5.8 MMOL/L (3.5-5.1); SODIUM 132 MMOL/L (136-145)
[2018-05-18 08:56] LABS: ALANINE AMINOTRANSFERASE 20 U/L (12-78); ALBUMIN 1.7 G/DL (3.4-5.0); ALBUMIN/GLOBULIN RATIO 0.4 (1.0-2.7); ALKALINE PHOSPHATASE 154 U/L (46-116); ASPARTATE AMINO TRANSFERASE 69 U/L (15-37); BILIRUBIN,TOTAL 0.5 MG/DL (0.2-1.0)
[2018-05-18 09:21] LABS: WHITE BLOOD COUNT 28.2 K/UL (4.8-10.8)
[2018-05-18 09:41] LABS: PHOSPHORUS 10.4 MG/DL (2.5-4.9)
[2018-05-18] MEDS ORDERED: NS 275ml ONE ×2 (10:13→17:32)
[2018-05-18] MEDS ORDERED: D5W 275ml ONE (10:13)
[2018-05-18] MEDS ORDERED: Tubing IV Secondary IV ONE ×2 (10:13→17:32)
--- NOTE | 2018-05-18 10:59 | NUR ---
NURSE NOTES: Called Dr Arroyo regarding K+ of 5.5. Order placed for STAT HD. Called [facility] and spoke to Del for HD for today. Will continue to monitor patient.
--- NOTE | 2018-05-18 11:15 | NUR ---
NURSE NOTES: Dr Chandler assessed patient. Discussed the weaning of patient and continued pain management. Will follow MD orders and continue to monitor.
--- NOTE | 2018-05-18 12:14 | General Progress Note ---
Progress Note Progress Note Surgery: leukocytosis. not tolerating weaning abd soft, distended, tender, drain serous output -cont current care --HD today -wean and extubate as tolerated -IV Abx thank you Tomas Chandler May 18, 2018 12:14
--- NOTE | 2018-05-18 12:15 | NUR ---
NURSE NOTES: Patient is observed to be awake, alert and resting comfortably. Patient opens eyes spontaneously, follows commands and responds with head nods yes and no. Patient does not appear in any acute distress however does appear to be very anxious. Patient is being monitored on the director life. VSS. Patient is orally intubated with vent settings AC 16, TV 500, FIO2 40% and PEEP +5. Oral care was performed. Patient is NPO and afebrile. Patient is anuric. Amiodarone is running at 0.5 mg/min. Patient has L VELVET drain draining serosanguineous fluid. Safety measures are in place with bed locked in the lowest position, side rails upx3. Will continue to monitor and follow plan of care
[2018-05-18] MEDS: cefTRIAXone 1 GM in D5W 55 ML IVPB SCH (13:16)
--- NOTE | 2018-05-18 13:18 | Nephrology Progress Note ---
Assessment/Plan Problem List: (1) ESRD (end stage renal disease) on dialysis (2) Perforated bowel (3) Hyponatremia (4) Major depression (5) Nausea & vomiting (6) H/O abdominal surgery Assessment: recent Assessment recent abdominal surgery hemodynamically stablized over night Presents with CHF and Low Na ESRD ACS DM HTN h/o GI bleed Depression Plan dialysed 05/17 dialysis again today for high K being weaned- on lower pressors insulin for high BS Has abd surgery 05/15 Perforated bowel graft clotted , has a femoral felice right HOLD ALL MIND ALTERING MEDS - DC all po meds FLUID CHALLENGE pressors as needed BP HR Pain control discussed with RN and Dr Karen LAUREN protonix Subjective ROS Limited/Unobtainable: Yes Objective Objective Last 24 Hour Vital Signs Date Time Temp Pulse Resp B/P (MAP) Pulse Ox O2 Delivery O2 Flow Rate FiO2 05/18/18 12:30 79 22 159/46 (83) 94 05/18/18 12:00 Mechanical Ventilator Mechanical Ventilator 05/18/18 12:00 98.9 77 24 169/62 (97) 94 05/18/18 11:00 84 25 143/51 (81) 98 05/18/18 10:41 79 20 40 05/18/18 10:00 74 15 159/57 (91) 100 05/18/18 09:00 40 05/18/18 09:00 71 13 134/54 (80) 100 05/18/18 08:51 100 05/18/18 08:51 78 18 40 05/18/18 08:00 Mechanical Ventilator Mechanical Ventilator 05/18/18 08:00 98.2 76 19 151/53 (85) 100 05/18/18 07:30 84 27 158/43 (81) 92 05/18/18 07:30 40 05/18/18 07:21 76 18 40 05/18/18 07:00 75 19 151/37 (75) 100 05/18/18 06:00 83 21 132/37 (68) 100 05/18/18 05:00 84 21 156/39 (78) 100 05/18/18 04:45 81 19 40 05/18/18 04:00 78 05/18/18 04:00 40 05/18/18 04:00 98.6 82 23 156/50 (85) 100 05/18/18 04:00 Mechanical Ventilator Mechanical Ventilator 05/18/18 03:16 85 21 50 05/18/18 03:00 84 21 173/70 (104) 100 05/18/18 02:00 85 24 160/61 (94) 99 05/18/18 01:03 76 18 28 05/18/18 01:00 73 16 131/43 (72) 100 05/18/18 00:00 98.6 81 20 168/61 (96) 100 05/18/18 00:00 28 05/18/18 00:00 Mechanical Ventilator Mechanical Ventilator 05/18/18 00:00 81 05/17/18 23:30 82 15 166/65 (98) 100 05/17/18 23:01 81 18 28 05/17/18 23:00 84 15 158/67 (97) 100 05/17/18 22:30 76 15 113/63 (80) 100 05/17/18 22:00 69 15 114/54 (74) 100 05/17/18 21:00 77 17 143/58 (86) 100 05/17/18 20:36 77 16 28 05/17/18 20:00 98.6 81 22 169/73 (105) 100 05/17/18 20:00 30 05/17/18 20:00 79 05/17/18 20:00 Mechanical Ventilator Mechanical Ventilator 05/17/18 19:38 73 16 40 05/17/18 19:00 83 21 155/69 (97) 100 05/17/18 18:30 83 22 159/61 (93) 100 05/17/18 18:00 81 20 150/65 (93) 100 05/17/18 17:45 87 20 158/64 (95) 100 05/17/18 17:30 85 20 158/62 (94) 100 05/17/18 17:27 Endotracheal Tube 05/17/18 17:24 Endotracheal Tube 40 05/17/18 17:15 87 23 186/68 (107) 100 05/17/18 17:15 186/68 05/17/18 17:06 73 19 30 05/17/18 17:00 80 21 180/67 (104) 100 05/17/18 17:00 181/62 05/17/18 16:45 71 14 127/59 (81) 100 05/17/18 16:30 72 14 154/59 (90) 100 05/17/18 16:15 72 14 121/55 (77) 100 05/17/18 16:00 Mechanical Ventilator Mechanical Ventilator 05/17/18 16:00 157/59 05/17/18 16:00 79 05/17/18 16:00 98.6 80 18 157/59 (91) 100 05/17/18 16:00 30 05/17/18 15:50 30 05/17/18 15:45 75 16 134/66 (88) 100 05/17/18 15:30 100/52 05/17/18 15:30 75 16 119/16 (50) 100 05/17/18 15:03 95 25 40 05/17/18 15:00 117/70 05/17/18 15:00 92 21 117/70 (86) 100 05/17/18 14:30 103 21 126/66 (86) 100 05/17/18 14:00 94 19 100/52 (68) 100 05/17/18 13:30 92 20 117/60 (79) 100 Intake and Output 05/17/18 05/18/18 19:00 07:00 Intake Total 501.545 ml 199.92 ml Output Total 940 ml 62 ml Balance -438.455 ml 137.92 ml IV Total 471.545 ml 199.92 ml Other 30 ml Output Urine Total 0 ml 2 ml Drainage Total 40 ml 60 ml Hemodialysis UF 900 ml Laboratory Tests 05/18/18 08:25: White Blood Count 28.2*H, Red Blood Count 2.46L, Hemoglobin 7.6L, Hematocrit 22.6L, Mean Corpuscular Volume 92, Mean Corpuscular Hemoglobin 30.8, Mean Corpuscular Hemoglobin Concent 33.7, Red Cell Distribution Width 14.7, Platelet Count 314, Mean Platelet Volume 7.0, Neutrophils (%) (Auto) , Lymphocytes (%) ( Auto) , Monocytes (%) (Auto) , Eosinophils (%) (Auto) , Basophils (%) (Auto) , Differential Total Cells Counted 100, Neutrophils % (Manual) 90H, Lymphocytes % (Manual) 6L, Monocytes % (Manual) 4, Eosinophils % (Manual) 0, Basophils % ( Manual) 0, Band Neutrophils 0, Platelet Estimate Adequate, Platelet Morphology Normal, Hypochromasia 1+, Target Cells Occasional, Ovalocytes Occasional, Sodium Level 132L, Potassium Level 5.8H, Chloride Level 93L, Carbon Dioxide Level 20L, Anion Gap 19H, Blood Urea Nitrogen 125H, Creatinine 7.1H, Estimat Glomerular Filtration Rate , Glucose Level 188#H, Calcium Level 8.6, Phosphorus Level 10.4H, Magnesium Level 2.1, Total Bilirubin 0.5, Aspartate Amino Transf ( AST/SGOT) 69H, Alanine Aminotransferase (ALT/SGPT) 20, Alkaline Phosphatase 154H , Total Protein 5.7L, Albumin 1.7L, Globulin 4.0, Albumin/Globulin Ratio 0.4L 05/18/18 10:15: Potassium Level 5.5H, Digoxin Level 2.0 Height (Feet): 5 Height (Inches): 4.00 Weight (Pounds): 188 EENT: other - vented Cardiovascular: normal rate Respiratory/Chest: decreased breath sounds Abdomen: distended Objective no change Maurilio Arroyo MD May 18, 2018 13:18
--- NOTE | 2018-05-18 14:56 | Cardiac Electrophysiology PN ---
Assessment/Plan Assessment/Plan 1. Atrial fib/flutter with RVR . On Amio drip and Dig 0.125 qod( not getting it as NPO). Dig level 2.5 on 05/16/18. Converted to SR. 2. Chest pain. No NH. EKG showed old inferior and anterior wall NH, but no ischemia. ECHO with normal LV function 3. End-stage renal disease, on hemodialysis per Dr. Arroyo. 4. Septic shock, levophed DCed. Was on Midodrine 5 tid. But now NPO 5. History of kidney stones. 6. History of psychiatric problems, dementia. 7. Hx of lap matthew. S/P SB resection 05/15/18 with drain 8. Respiratory failure, intubated on the vent. Try weaning today DW RN Subjective Subjective In ICU on Amiodarone 0.5 mg and Levophed drip DCed. Converted to SR. Getting extra HD today. Try weaning again Objective Last 24 Hour Vital Signs Date Time Temp Pulse Resp B/P (MAP) Pulse Ox O2 Delivery O2 Flow Rate FiO2 05/18/18 14:00 73 21 98/49 (65) 98 05/18/18 13:00 77 21 126/63 (84) 98 05/18/18 12:42 77 16 40 05/18/18 12:30 79 22 159/46 (83) 94 05/18/18 12:00 Mechanical Ventilator Mechanical Ventilator 05/18/18 12:00 98.9 77 24 169/62 (97) 94 05/18/18 11:00 84 25 143/51 (81) 98 05/18/18 10:41 79 20 40 05/18/18 10:00 74 15 159/57 (91) 100 05/18/18 09:00 40 05/18/18 09:00 71 13 134/54 (80) 100 05/18/18 08:51 100 05/18/18 08:51 78 18 40 05/18/18 08:00 Mechanical Ventilator Mechanical Ventilator 05/18/18 08:00 98.2 76 19 151/53 (85) 100 05/18/18 07:30 84 27 158/43 (81) 92 05/18/18 07:30 40 05/18/18 07:21 76 18 40 05/18/18 07:00 75 19 151/37 (75) 100 05/18/18 06:00 83 21 132/37 (68) 100 05/18/18 05:00 84 21 156/39 (78) 100 05/18/18 04:45 81 19 40 05/18/18 04:00 78 05/18/18 04:00 40 05/18/18 04:00 98.6 82 23 156/50 (85) 100 05/18/18 04:00 Mechanical Ventilator Mechanical Ventilator 05/18/18 03:16 85 21 50 05/18/18 03:00 84 21 173/70 (104) 100 05/18/18 02:00 85 24 160/61 (94) 99 05/18/18 01:03 76 18 28 05/18/18 01:00 73 16 131/43 (72) 100 05/18/18 00:00 98.6 81 20 168/61 (96) 100 05/18/18 00:00 28 05/18/18 00:00 Mechanical Ventilator Mechanical Ventilator 05/18/18 00:00 81 05/17/18 23:30 82 15 166/65 (98) 100 05/17/18 23:01 81 18 28 05/17/18 23:00 84 15 158/67 (97) 100 05/17/18 22:30 76 15 113/63 (80) 100 05/17/18 22:00 69 15 114/54 (74) 100 05/17/18 21:00 77 17 143/58 (86) 100 05/17/18 20:36 77 16 28 05/17/18 20:00 98.6 81 22 169/73 (105) 100 05/17/18 20:00 30 05/17/18 20:00 79 05/17/18 20:00 Mechanical Ventilator Mechanical Ventilator 05/17/18 19:38 73 16 40 05/17/18 19:00 83 21 155/69 (97) 100 05/17/18 18:30 83 22 159/61 (93) 100 05/17/18 18:00 81 20 150/65 (93) 100 05/17/18 17:45 87 20 158/64 (95) 100 05/17/18 17:30 85 20 158/62 (94) 100 05/17/18 17:27 Endotracheal Tube 05/17/18 17:24 Endotracheal Tube 40 05/17/18 17:15 87 23 186/68 (107) 100 05/17/18 17:15 186/68 05/17/18 17:06 73 19 30 05/17/18 17:00 80 21 180/67 (104) 100 05/17/18 17:00 181/62 05/17/18 16:45 71 14 127/59 (81) 100 05/17/18 16:30 72 14 154/59 (90) 100 05/17/18 16:15 72 14 121/55 (77) 100 05/17/18 16:00 Mechanical Ventilator Mechanical Ventilator 05/17/18 16:00 157/59 05/17/18 16:00 79 05/17/18 16:00 98.6 80 18 157/59 (91) 100 05/17/18 16:00 30 05/17/18 15:50 30 05/17/18 15:45 75 16 134/66 (88) 100 05/17/18 15:30 100/52 05/17/18 15:30 75 16 119/16 (50) 100 05/17/18 15:03 95 25 40 05/17/18 15:00 117/70 05/17/18 15:00 92 21 117/70 (86) 100 Intake and Output 05/17/18 05/18/18 19:00 07:00 Intake Total 501.545 ml 199.92 ml Output Total 940 ml 62 ml Balance -438.455 ml 137.92 ml IV Total 471.545 ml 199.92 ml Other 30 ml Output Urine Total 0 ml 2 ml Drainage Total 40 ml 60 ml Hemodialysis UF 900 ml Laboratory Tests Test 05/18/18 08:25 05/18/18 10:15 White Blood Count 28.2 K/UL (4.8-10.8) *H Red Blood Count 2.46 M/UL (4.70-6.10) L Hemoglobin 7.6 G/DL (14.2-18.0) L Hematocrit 22.6 % (42.0-52.0) L Mean Corpuscular Volume 92 FL (80-99) Mean Corpuscular Hemoglobin 30.8 PG (27.0-31.0) Mean Corpuscular Hemoglobin Concent 33.7 G/DL (32.0-36.0) Red Cell Distribution Width 14.7 % (11.6-14.8) Platelet Count 314 K/UL (150-450) Mean Platelet Volume 7.0 FL (6.5-10.1) Neutrophils (%) (Auto) % (45.0-75.0) Lymphocytes (%) (Auto) % (20.0-45.0) Monocytes (%) (Auto) % (1.0-10.0) Eosinophils (%) (Auto) % (0.0-3.0) Basophils (%) (Auto) % (0.0-2.0) Differential Total Cells Counted 100 Neutrophils % (Manual) 90 % (45-75) H Lymphocytes % (Manual) 6 % (20-45) L Monocytes % (Manual) 4 % (1-10) Eosinophils % (Manual) 0 % (0-3) Basophils % (Manual) 0 % (0-2) Band Neutrophils 0 % (0-8) Platelet Estimate Adequate Platelet Morphology Normal Hypochromasia 1+ Target Cells Occasional Ovalocytes Occasional Sodium Level 132 MMOL/L (136-145) L Potassium Level 5.8 MMOL/L (3.5-5.1) H 5.5 MMOL/L (3.5-5.1) H Chloride Level 93 MMOL/L (98-107) L Carbon Dioxide Level 20 MMOL/L (21-32) L Anion Gap 19 mmol/L (5-15) H Blood Urea Nitrogen 125 mg/dL (7-18) H Creatinine 7.1 MG/DL (0.55-1.30) H Estimat Glomerular Filtration Rate mL/min (>60) Glucose Level 188 MG/DL (74-106) #H Calcium Level 8.6 MG/DL (8.5-10.1) Phosphorus Level 10.4 MG/DL (2.5-4.9) H Magnesium Level 2.1 MG/DL (1.8-2.4) Total Bilirubin 0.5 MG/DL (0.2-1.0) Aspartate Amino Transf (AST/SGOT) 69 U/L (15-37) H Alanine Aminotransferase (ALT/SGPT) 20 U/L (12-78) Alkaline Phosphatase 154 U/L (46-116) H Total Protein 5.7 G/DL (6.4-8.2) L Albumin 1.7 G/DL (3.4-5.0) L Globulin 4.0 g/dL Albumin/Globulin Ratio 0.4 (1.0-2.7) L C-Reactive Protein, Quantitative 52.3 mg/dL (0.00-0.90) H Digoxin Level 2.0 NG/ML (0.5-2.0) Microbiology Date/Time Source Procedure Growth Status 05/15/18 22:30 Body Fluid Other Gram Stain - Final Resulted 05/15/18 22:30 Aerobic Culture - Preliminary Gram Negative Bacillus 1 Gram Negative Bacillus 2 Resulted Objective HEENT: PERRL/EOMI, Orally intubated Cardiovascular: irregular, tachycardia Respiratory/Chest: chest wall non-tender, lungs clear, normal breath sounds, no respiratory distress Abdomen: Post op.with one VELVET drain Extremities: No edema Right groin dialysis catheter Everett Stephenson MD May 18, 2018 14:56
--- NOTE | 2018-05-18 15:00 | NUR ---
NURSE NOTES: Dr Stephenson assessed patient bedside. Patient was hypertensive however, patient is receiving HD tx today. Will be cautious with DEC BP due to HD. No new orders. Discussed con't of Ami. Will continue to monitor.
--- NOTE | 2018-05-18 15:15 | NUR ---
NURSE NOTES: Patient is observed to be awake, alert and restless. HD treatment has begun for a K+ of 5.5. Patient had episode of putting his hands to his face however, was reminded to not touch ETT. Patient does not appear in any acute distress however continues to very anxious. Patient is being monitored on the gem expert. VSS. Patient is orally intubated with vent settings AC 16, TV 500, FIO2 40% and PEEP +5. Oral care was performed. Patient is NPO. Amiodarone is running at 0.5 mg/min. Patient has L VELVET drain draining serosanguineous fluid. Patient was repositioned for comfort. Safety measures are in place with bed locked in the lowest position, side rails upx3. Will continue to monitor and follow plan of care
--- NOTE | 2018-05-18 15:46 | General Progress Note ---
Assessment/Plan Status: unchanged Assessment/Plan COVERING FOR DR. IRVIN ASSESSMENT AND RECOMMENDATIONS # Small bowel perforation, s/p bowel resection, with Gram negative sepsis is on abx In ICU s/p Small bowel resection on Amiodarone and Levophed drip. HR around 100. --> on broad spectrum abx --> on vanc/cefepime as per id--> now changed to ceftriaxone --> s/p sb resection on 05/15, appreciate surg recs --> on pressors as well,++ vent # Lower extremity edema with an elevated BNP in a patient with renal failure on hemodialysis. --> on HD per Dr. Arroyo. --> currently has improved # Atrial fib w rvr/flutter, and Chest pain, rule out acs --> Cardiology is following, appreciate recs, echo was reviewed --> Currently denies any chest pain, completely rule out ACS --> EKG showed old inferior and anterior wall TX, but no ischemia. --> ECHO with normal LV function --> on heparin gtt 05/13 for potential pe, cta neg --> now d/albert # End-stage renal disease, on hemodialysis and also hyponatremia. --> Nephro is following, appreciate recs. --> On intermittent HD # Anemia of chronic disease due to underlying chronic medical issues, multifactorial. --> anemia w/u reviewed --> Monitor for stability Subjective Date patient seen: May 18, 2018 ROS Limited/Unobtainable: Yes Hematologic/Lymphatic: Reports: anemia Allergies: Coded Allergies: No Known Allergies (Unverified , 11/12/12) Subjective 05/12: Pt resting in bed. No acute events. H/H stable. On abx. VS stable. 05/13: on pressors, on hep gtt, on steriods, abx, got hd, felice catheter in place : CT-A was negative, hep gtt as per cards, abg reviewed, moaning on exam, on ceftriaxone 05/15 :Pt remains in ICU. Currently undergoing HD. Pt on 2 cardiac drips for elevated Bp. WBC remains elevated. H/H stable. 05/16: s/p sb resection, In ICU s/p Small bowel resection on Amiodarone and Levophed drip. HR around 100. 05/17: Orally intubated on Ac 16, Vt 500, P 5 fio2 30%. Pt continues NPO at this time. Right upper arm and right FA IV sites patent and intact at this time. Amio gtt running 05/18: Pt remains in ICU. Pt for STAT HD. WBC remains elevated, afebrile. Objective Last 24 Hour Vital Signs Date Time Temp Pulse Resp B/P (MAP) Pulse Ox O2 Delivery O2 Flow Rate FiO2 05/18/18 14:00 73 21 98/49 (65) 98 05/18/18 13:00 77 21 126/63 (84) 98 05/18/18 12:42 77 16 40 05/18/18 12:30 79 22 159/46 (83) 94 05/18/18 12:00 Mechanical Ventilator Mechanical Ventilator 05/18/18 12:00 98.9 77 24 169/62 (97) 94 05/18/18 11:00 84 25 143/51 (81) 98 05/18/18 10:41 79 20 40 05/18/18 10:00 74 15 159/57 (91) 100 05/18/18 09:00 40 05/18/18 09:00 71 13 134/54 (80) 100 05/18/18 08:51 100 05/18/18 08:51 78 18 40 05/18/18 08:00 Mechanical Ventilator Mechanical Ventilator 05/18/18 08:00 98.2 76 19 151/53 (85) 100 05/18/18 07:30 84 27 158/43 (81) 92 05/18/18 07:30 40 05/18/18 07:21 76 18 40 05/18/18 07:00 75 19 151/37 (75) 100 05/18/18 06:00 83 21 132/37 (68) 100 05/18/18 05:00 84 21 156/39 (78) 100 05/18/18 04:45 81 19 40 05/18/18 04:00 78 05/18/18 04:00 40 05/18/18 04:00 98.6 82 23 156/50 (85) 100 05/18/18 04:00 Mechanical Ventilator Mechanical Ventilator 05/18/18 03:16 85 21 50 05/18/18 03:00 84 21 173/70 (104) 100 05/18/18 02:00 85 24 160/61 (94) 99 05/18/18 01:03 76 18 28 05/18/18 01:00 73 16 131/43 (72) 100 05/18/18 00:00 98.6 81 20 168/61 (96) 100 05/18/18 00:00 28 05/18/18 00:00 Mechanical Ventilator Mechanical Ventilator 05/18/18 00:00 81 05/17/18 23:30 82 15 166/65 (98) 100 05/17/18 23:01 81 18 28 05/17/18 23:00 84 15 158/67 (97) 100 05/17/18 22:30 76 15 113/63 (80) 100 05/17/18 22:00 69 15 114/54 (74) 100 05/17/18 21:00 77 17 143/58 (86) 100 05/17/18 20:36 77 16 28 05/17/18 20:00 98.6 81 22 169/73 (105) 100 05/17/18 20:00 30 05/17/18 20:00 79 05/17/18 20:00 Mechanical Ventilator Mechanical Ventilator 05/17/18 19:38 73 16 40 05/17/18 19:00 83 21 155/69 (97) 100 05/17/18 18:30 83 22 159/61 (93) 100 05/17/18 18:00 81 20 150/65 (93) 100 05/17/18 17:45 87 20 158/64 (95) 100 05/17/18 17:30 85 20 158/62 (94) 100 05/17/18 17:27 Endotracheal Tube 05/17/18 17:24 Endotracheal Tube 40 05/17/18 17:15 87 23 186/68 (107) 100 05/17/18 17:15 186/68 05/17/18 17:06 73 19 30 05/17/18 17:00 80 21 180/67 (104) 100 05/17/18 17:00 181/62 05/17/18 16:45 71 14 127/59 (81) 100 05/17/18 16:30 72 14 154/59 (90) 100 05/17/18 16:15 72 14 121/55 (77) 100 05/17/18 16:00 Mechanical Ventilator Mechanical Ventilator 05/17/18 16:00 157/59 05/17/18 16:00 79 12/28/18 16:00 98.6 80 18 157/59 (91) 100 05/17/18 16:00 30 05/17/18 15:50 30 05/17/18 15:45 75 16 134/66 (88) 100 Intake and Output 05/17/18 05/18/18 19:00 07:00 Intake Total 501.545 ml 199.92 ml Output Total 940 ml 62 ml Balance -438.455 ml 137.92 ml IV Total 471.545 ml 199.92 ml Other 30 ml Output Urine Total 0 ml 2 ml Drainage Total 40 ml 60 ml Hemodialysis UF 900 ml Laboratory Tests 05/18/18 08:25: White Blood Count 28.2*H, Red Blood Count 2.46L, Hemoglobin 7.6L, Hematocrit 22.6L, Mean Corpuscular Volume 92, Mean Corpuscular Hemoglobin 30.8, Mean Corpuscular Hemoglobin Concent 33.7, Red Cell Distribution Width 14.7, Platelet Count 314, Mean Platelet Volume 7.0, Neutrophils (%) (Auto) , Lymphocytes (%) ( Auto) , Monocytes (%) (Auto) , Eosinophils (%) (Auto) , Basophils (%) (Auto) , Differential Total Cells Counted 100, Neutrophils % (Manual) 90H, Lymphocytes % (Manual) 6L, Monocytes % (Manual) 4, Eosinophils % (Manual) 0, Basophils % ( Manual) 0, Band Neutrophils 0, Platelet Estimate Adequate, Platelet Morphology Normal, Hypochromasia 1+, Target Cells Occasional, Ovalocytes Occasional, Sodium Level 132L, Potassium Level 5.8H, Chloride Level 93L, Carbon Dioxide Level 20L, Anion Gap 19H, Blood Urea Nitrogen 125H, Creatinine 7.1H, Estimat Glomerular Filtration Rate , Glucose Level 188#H, Calcium Level 8.6, Phosphorus Level 10.4H, Magnesium Level 2.1, Total Bilirubin 0.5, Aspartate Amino Transf ( AST/SGOT) 69H, Alanine Aminotransferase (ALT/SGPT) 20, Alkaline Phosphatase 154H , Total Protein 5.7L, Albumin 1.7L, Globulin 4.0, Albumin/Globulin Ratio 0.4L 05/18/18 10:15: Potassium Level 5.5H, C-Reactive Protein, Quantitative 52.3H, Digoxin Level 2.0 Height (Feet): 5 Height (Inches): 4.00 Weight (Pounds): 190 Objective PHYSICAL EXAMINATION: VITAL SIGNS: Have been reviewed HEENT: PERRLA. NECK: Supple. No lymphadenopathy. CHEST: ++ intubated CARDIOVASCULAR: Tachycardic. GASTROINTESTINAL: Distended. Positive bowel sounds. Nontender. No organomegaly. + ryan drain in place EXTREMITY: A 1+ edema. Reflexes are equal on both sides. Reinaldo Leon MD May 18, 2018 15:46
--- NOTE | 2018-05-18 16:30 | NUR ---
NURSE NOTES: NURSE NOTES:
--- NOTE | 2018-05-18 19:00 | NUR ---
NURSE NOTES: Patient received from [facility]. Patient is observed to be awake, alert and sitting up in the bed. Patient opens eyes spontaneously, follows commands and responds with head nods yes and no. Patient does not appear in any acute distress. Patient is being monitored on the monitoring and evaluation advisor. VS 174/35, HR 69, RR 13 SPO2 99%. Patient has now converted and is in SR on the monitor. Patient is orally intubated with vent settings AC 16, TV 500, FIO2 35% and PEEP +5. Oral care was performed. Upon auscultation, patient has NL breath sounds. Patient continues to be NPO at this time with accuchecks that are improving. Belly sounds are hypoactive and no reported BMs as of yet. Patient is anuric. Patient has ADILENE and RFA IV sites that patent and intact with Amiodarone running at 0.5 mg/min. Patient has a RFem Baljeet for HD. Patient is s/p Ex Lap and small bowel resection with abdominal dressing that is dry and intact. Patient has L VELVET drain draining serosanguineous fluid. Patient has SCD's on BLE. Safety measures are in place with bed locked in the lowest position, side rails upx3. Will continue to monitor and follow plan of care.
--- NOTE | 2018-05-18 19:10 | NUR ---
HAND-OFF: Report given to [facility]. Endorsed the Fentanyl drip ready in the Pharmacy that was waiting for HD tx to end. Patient not in any acute distress.
[2018-05-18] MEDS ORDERED: Amiodarone 900 MG in D5W 500ml 482 ML IV SCH (19:30)
--- NOTE | 2018-05-18 20:00 | NUR ---
NURSE NOTES: Repositioned patient and lavaged patient. Amio gtt running. Awaiting for fentanyl gtt. Patients SR.
--- NOTE | 2018-05-18 20:03 | Pulmonolgy Critical Care Note ---
Critical Care - Asmt/Plan Assessment/Plan: (1) Shock (2) Hypoxemia (3) Elevated d-dimer with negative CTA (4) Hypotension (5) Atrial fibrillation (6) ESRDon dialysis (7) ACS (8) Sacral decubitus ulcer, stage III (9) S/P cholecystectomy (10) Serratia sepsis (11) S/P exploratory laparotomy (12) Perforated viscus Assessment/Plan: -Post-op recs and wound care -Pain control/supportive care -Continue ventilatory support/settings reviewed and weaning -Titrate down FiO2 to keep SaO2 > 90%, continue PEEP 5 -HD per renal -Titrate NE to keep MAP > 60 -Amio gtt per cards/EPS, off Dilt -Heparin held, resume when ok with surgery -Monitor for bleeding -Abx per ID, F/U Cx's -Decrease HC to 12.5 TID and taper -FC Respiratory: CXR, ABG Cardiac: continue to monitor HR/BP Infectious Disease: check cultures, continue antibiotics Neurologic: PRN Morphine Time Spent (Minutes): 50 Notes Reviewed: therapeutic program worker, cardio Critical Care - Objective Last 24 Hour Vital Signs Date Time Temp Pulse Resp B/P (MAP) Pulse Ox O2 Delivery O2 Flow Rate FiO2 05/18/18 19:00 69 13 174/35 (81) 99 05/18/18 18:56 73 19 35 05/18/18 18:00 81 18 219/47 (104) 98 05/18/18 17:00 82 21 134/32 (66) 98 05/18/18 16:49 82 20 40 05/18/18 16:00 Mechanical Ventilator Mechanical Ventilator 05/18/18 16:00 40 05/18/18 16:00 88 29 99/29 (52) 95 05/18/18 15:50 88 35 40 05/18/18 15:14 78 18 40 05/18/18 15:00 79 24 159/49 (85) 97 05/18/18 14:00 73 21 98/49 (65) 98 05/18/18 13:00 77 21 126/63 (84) 98 05/18/18 12:42 77 16 40 05/18/18 12:30 79 22 159/46 (83) 94 05/18/18 12:00 Mechanical Ventilator Mechanical Ventilator 05/18/18 12:00 98.9 77 24 169/62 (97) 94 12/29/18 11:00 84 25 143/51 (81) 98 05/18/18 10:41 79 20 40 05/18/18 10:00 74 15 159/57 (91) 100 05/18/18 09:00 40 05/18/18 09:00 71 13 134/54 (80) 100 05/18/18 08:51 100 05/18/18 08:51 78 18 40 05/18/18 08:00 Mechanical Ventilator Mechanical Ventilator 05/18/18 08:00 98.2 76 19 151/53 (85) 100 05/18/18 07:30 84 27 158/43 (81) 92 05/18/18 07:30 40 05/18/18 07:21 76 18 40 05/18/18 07:00 75 19 151/37 (75) 100 05/18/18 06:00 83 21 132/37 (68) 100 05/18/18 05:00 84 21 156/39 (78) 100 05/18/18 04:45 81 19 40 05/18/18 04:00 78 05/18/18 04:00 40 05/18/18 04:00 98.6 82 23 156/50 (85) 100 05/18/18 04:00 Mechanical Ventilator Mechanical Ventilator 05/18/18 03:16 85 21 50 05/18/18 03:00 84 21 173/70 (104) 100 05/18/18 02:00 85 24 160/61 (94) 99 05/18/18 01:03 76 18 28 05/18/18 01:00 73 16 131/43 (72) 100 05/18/18 00:00 98.6 81 20 168/61 (96) 100 05/18/18 00:00 28 05/18/18 00:00 Mechanical Ventilator Mechanical Ventilator 05/18/18 00:00 81 05/17/18 23:30 82 15 166/65 (98) 100 05/17/18 23:01 81 18 28 05/17/18 23:00 84 15 158/67 (97) 100 05/17/18 22:30 76 15 113/63 (80) 100 05/17/18 22:00 69 15 114/54 (74) 100 05/17/18 21:00 77 17 143/58 (86) 100 05/17/18 20:36 77 16 28 Status: somnolent Condition: critical Heart: HR/BP stable, irregular Abdomen: distended, absent bowel sounds Extremities: edema Micro: Microbiology Date/Time Source Procedure Growth Status 05/15/18 22:30 Body Fluid Other Gram Stain - Final Resulted 05/15/18 22:30 Aerobic Culture - Preliminary Gram Negative Bacillus 1 Gram Negative Bacillus 2 Resulted Accucheck: 150 Blood Sugars: BS not controlled Critical Care - Subjective ROS Limited/Unobtainable: Yes Condition: critical EKG Rhythm: Sinus Rhythm FI02: 35 Vent Support Breath Rate: 16 Vent Support Mode: AC Vent Tidal Volume: 500 Sputum Amount: Scant PEEP: 5.0 PIP: 15 I&O: Intake and Output 05/17/18 05/18/18 19:00 07:00 Intake Total 501.545 ml 199.92 ml Output Total 940 ml 62 ml Balance -438.455 ml 137.92 ml IV Total 471.545 ml 199.92 ml Other 30 ml Output Urine Total 0 ml 2 ml Drainage Total 40 ml 60 ml Hemodialysis UF 900 ml Subjective: agitated at times on the vent weaned shortly today back on ac sedation beign starting this evening no cp nv or bleeding no fever noted not getting oob NPO CXR: no new cxr 05/16 ET-Tube: 7.5 ET Position: 22 Labs: Current Medications Medications (Trade) Dose Ordered Sig/Min Route PRN Reason Start Time Stop Time Status Last Admin Dose Admin Acetaminophen (Tylenol) 650 mg Q4H PRN ORAL Mild Pain/Temp > 100.5 05/12/18 15:30 06/09/18 15:29 05/13/18 16:39 Amiodarone HCl 900 mg/Dextrose 500 ml @ 0 mls/hr Q24H IV 05/18/18 19:30 05/19/18 19:29 Ceftriaxone Sodium 1 gm/ Dextrose 55 ml @ 110 mls/hr Q24H IVPB 05/14/18 11:00 05/21/18 10:59 05/18/18 13:16 Chlorhexidine Gluconate (Tatyana-Hex 2%) 1 applic DAILY@1999 TOPIC 05/12/18 20:00 06/11/18 19:59 05/17/18 19:22 Dextrose (Dextrose 50%) 25 ml Q30M PRN IV Hypoglycemia 05/16/18 17:30 06/15/18 17:29 Dextrose (Dextrose 50%) 50 ml Q30M PRN IV Hypoglycemia 05/16/18 17:30 06/15/18 17:29 Digoxin (Lanoxin) 0.125 mg QOD IVP 05/18/18 21:00 06/17/18 20:59 Fentanyl Citrate 1000 mcg/Sodium Chloride 100 ml @ 0 mls/hr Q24H IV 05/18/18 09:00 05/25/18 08:59 Hydralazine HCl (Apresoline) 10 mg Q4H PRN IV bp over 160 syst 05/14/18 12:00 06/13/18 11:59 Hydrocortisone (Solu-CORTEF) 12.5 mg EVERY 8 HOURS IV 05/17/18 22:00 06/11/18 21:59 05/18/18 13:16 Hydromorphone HCl (Dilaudid) 1 mg Q2H PRN IVP Severe Pain (Pain Scale 7-10) 05/16/18 10:00 05/21/18 09:14 05/18/18 18:30 Insulin Aspart (NovoLOG) BEFORE MEALS AND HS SUBQ 05/16/18 21:00 06/15/18 20:59 05/18/18 18:32 Metoclopramide HCl (Reglan) 10 mg Q6H PRN IVP Nausea & Vomiting 05/16/18 06:15 06/10/18 15:29 Metronidazole 100 ml @ 100 mls/hr Q8HR IVPB 05/15/18 15:00 05/22/18 14:59 05/18/18 14:35 Midodrine (Pro-Amatine) 2.5 mg THREE TIMES A DAY ORAL 05/18/18 18:00 06/14/18 12:59 Norepinephrine Bitartrate 4 mg/ Dextrose 250 ml @ 0 mls/hr Q24H IV 05/16/18 08:00 06/15/18 07:59 05/17/18 04:35 Ondansetron HCl (Zofran) 4 mg Q6H PRN IVP Nausea & Vomiting 05/15/18 23:30 06/14/18 23:29 Pantoprazole (Protonix) 40 mg EVERY 12 HOURS IVP 05/12/18 21:00 06/10/18 20:59 05/18/18 08:51 Laboratory Tests Test 05/18/18 08:25 05/18/18 10:15 White Blood Count 28.2 K/UL (4.8-10.8) *H Red Blood Count 2.46 M/UL (4.70-6.10) L Hemoglobin 7.6 G/DL (14.2-18.0) L Hematocrit 22.6 % (42.0-52.0) L Mean Corpuscular Volume 92 FL (80-99) Mean Corpuscular Hemoglobin 30.8 PG (27.0-31.0) Mean Corpuscular Hemoglobin Concent 33.7 G/DL (32.0-36.0) Red Cell Distribution Width 14.7 % (11.6-14.8) Platelet Count 314 K/UL (150-450) Mean Platelet Volume 7.0 FL (6.5-10.1) Neutrophils (%) (Auto) % (45.0-75.0) Lymphocytes (%) (Auto) % (20.0-45.0) Monocytes (%) (Auto) % (1.0-10.0) Eosinophils (%) (Auto) % (0.0-3.0) Basophils (%) (Auto) % (0.0-2.0) Differential Total Cells Counted 100 Neutrophils % (Manual) 90 % (45-75) H Lymphocytes % (Manual) 6 % (20-45) L Monocytes % (Manual) 4 % (1-10) Eosinophils % (Manual) 0 % (0-3) Basophils % (Manual) 0 % (0-2) Band Neutrophils 0 % (0-8) Platelet Estimate Adequate Platelet Morphology Normal Hypochromasia 1+ Target Cells Occasional Ovalocytes Occasional Sodium Level 132 MMOL/L (136-145) L Potassium Level 5.8 MMOL/L (3.5-5.1) H 5.5 MMOL/L (3.5-5.1) H Chloride Level 93 MMOL/L (98-107) L Carbon Dioxide Level 20 MMOL/L (21-32) L Anion Gap 19 mmol/L (5-15) H Blood Urea Nitrogen 125 mg/dL (7-18) H Creatinine 7.1 MG/DL (0.55-1.30) H Estimat Glomerular Filtration Rate mL/min (>60) Glucose Level 188 MG/DL (74-106) #H Calcium Level 8.6 MG/DL (8.5-10.1) Phosphorus Level 10.4 MG/DL (2.5-4.9) H Magnesium Level 2.1 MG/DL (1.8-2.4) Total Bilirubin 0.5 MG/DL (0.2-1.0) Aspartate Amino Transf (AST/SGOT) 69 U/L (15-37) H Alanine Aminotransferase (ALT/SGPT) 20 U/L (12-78) Alkaline Phosphatase 154 U/L (46-116) H Total Protein 5.7 G/DL (6.4-8.2) L Albumin 1.7 G/DL (3.4-5.0) L Globulin 4.0 g/dL Albumin/Globulin Ratio 0.4 (1.0-2.7) L C-Reactive Protein, Quantitative 52.3 mg/dL (0.00-0.90) H Digoxin Level 2.0 NG/ML (0.5-2.0) Serina Wang DO May 18, 2018 20:03
[2018-05-18] MEDS ORDERED: Digoxin 0.5mg/2ml Inj IVP SCH (21:00)
[2018-05-18] MEDS: Dyna-Hex 2% Top Sol 2oz TOPIC SCH (21:38)
--- NOTE | 2018-05-18 22:00 | NUR ---
NURSE NOTES: Patient A-fib 130s. Amio increased to 1mg. Fentanyl gtt running. Patient is hypertensive, Will continue to monitor.
[2018-05-19] VITALS (30 sets, daily range): BP systolic 73–205; BP diastolic 10–89
--- NOTE | 2018-05-19 | NUR ---
NURSE NOTES: Repositioned and oral care provided, patient still remains on Afib. NAD at this time. R forarm 20 G new IV insertion. Will continue to monitor.
[2018-05-19 05:53] LABS: HEMATOCRIT 27.3 % (42.0-52.0); HEMOGLOBIN 8.9 G/DL (14.2-18.0); MEAN CORPUSCULAR VOLUME 93 FL (80-99); PLATELET COUNT 322 K/UL (150-450); RED BLOOD COUNT 2.95 M/UL (4.70-6.10); RED CELL DISTRIBUTION WIDTH 14.9 % (11.6-14.8); WHITE BLOOD COUNT 18.2 K/UL (4.8-10.8)
[2018-05-19] MEDS: Hydrocortisone 100mg Inj IV SCH (05:54)
[2018-05-19] MEDS: NovoLOG Insulin Flexpen SUBQ SCH ×4 (05:55→21:00)
[2018-05-19 06:34] LABS: ALANINE AMINOTRANSFERASE 24 U/L (12-78); ALBUMIN 1.8 G/DL (3.4-5.0); ALBUMIN/GLOBULIN RATIO 0.5 (1.0-2.7); ALKALINE PHOSPHATASE 157 U/L (46-116); ANION GAP 11 mmol/L (5-15); ASPARTATE AMINO TRANSFERASE 57 U/L (15-37); BILIRUBIN,TOTAL 0.5 MG/DL (0.2-1.0); BLOOD UREA NITROGEN 86 mg/dL (7-18); CALCIUM 8.5 MG/DL (8.5-10.1); CARBON DIOXIDE 26 MMOL/L (21-32); CHLORIDE 97 MMOL/L (98-107); CREATININE 5.3 MG/DL (0.55-1.30); GAMMA GLUTAMYL TRANSPEPTIDASE 83 U/L (5-85); PHOSPHORUS 8.6 MG/DL (2.5-4.9); POTASSIUM 4.7 MMOL/L (3.5-5.1); SODIUM 134 MMOL/L (136-145)
--- NOTE | 2018-05-19 07:02 | NUR ---
Received Patient on Vent settings of ACVC RR 16, VT 500, FIO2 35%, PEEP +5. Patient orally intubated with 7.5 ETT at 22cm at the lip secured by anchorfast. Diminished breath sounds are heard bilaterally. Patient alert and awake and follows commands. Vent plugged into red outlet. Alarms are on and audible. Will continue to monitor throughout the day.
--- NOTE | 2018-05-19 07:15 | NUR ---
NURSE NOTES: Patient received from MINGO Shetty. Patient is observed to be awake, alert and sitting up in the bed. Patient opens eyes spontaneously, follows commands and responds with head nods yes and no. Patient does not appear in any acute distress. Patient is being monitored on the desk monitor. VS 167/33, HR 82, RR 23 SPO2 98%. It was reported that patient was in RVR last night PM, patient is in aFib this morning and on 1 mg Amio. Patient is orally intubated with vent settings AC 16, TV 500, FIO2 35% and PEEP +5. Oral care was performed. Upon auscultation, patient has NL breath sounds. Patient is NPO. Belly sounds are hypoactive and no reported BMs as of yet. Patient is anuric. Patient has ADILENE and RFA IV sites that patent and intact with Amiodarone running and Fentanyl running at 100 mcgs. Patient has a RFem Baljeet for HD. Patient is s/p Ex Lap and small bowel resection with abdominal dressing that is dry and intact. Patient has L VELVET drain draining serosanguineous fluid. Patient has SCD's on BLE. Safety measures are in place with bed locked in the lowest position, side rails upx3. Will continue to monitor and follow plan of care.
--- NOTE | 2018-05-19 08:00 | NUR ---
NURSE NOTES: Fentanyl titrated to 80 mcgs and Amio DEC to 0.5 mg. Will continue to monitor.
--- NOTE | 2018-05-19 08:53 | Diagnostic Imaging Report ---
EXAM: XR Chest, 1 View CLINICAL HISTORY: CLT GRF TECHNIQUE: Frontal view of the chest. COMPARISON: No relevant prior studies available. FINDINGS: Lungs: Reduced lung volumes with bibasilar atelectasis/pneumonitis. Pleural space: Suspect bilateral pleural effusions. No pneumothorax. Heart: Unremarkable. No cardiomegaly. Mediastinum: Unremarkable. Bones/joints: No acute fracture. Instrumentation: endotracheal tube at the level of the clavicular heads, over 6-1/2 cm above the jacy. IMPRESSION: 1. Endotracheal tube at the level of the clavicular heads, over 6-1/2 cm above the jacy. 2. Reduced lung volumes with bibasilar atelectasis/pneumonitis. 3. Suspect bilateral pleural effusions. Critical Value Communications 05/19/18 09:18 Verify Receipt with Nurse Verified receipt with MINGO Almonte on 05/19 09:17 (-08:00)
--- NOTE | 2018-05-19 09:17 | Infectious Diseases Prog Note ---
Assessment/Plan Assessment/Plan A: 1. serratia , Enterobacter sepsis with shock 2. VRE colonization 3. diabetes mellitus 4. hypertension 5. 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 leucocytosis 6. A fib with RVR 7. Small bowel perforation 8. Perioperative respiratory failure 9. Atelectasis versus Pneumonia P 1. change Ceftriaxone & Flagyl 2. will f/u cultures Subjective ROS Limited/Unobtainable: Yes Constitutional: Reports: no symptoms Neurologic: Reports: other - sedated on restraint Allergies: Coded Allergies: No Known Allergies (Unverified , 11/12/12) Objective Vital Signs Last 24 Hour Vital Signs Date Time Temp Pulse Resp B/P (MAP) Pulse Ox O2 Delivery O2 Flow Rate FiO2 05/19/18 08:00 35 05/19/18 07:04 81 19 35 05/19/18 07:00 95 16 182/42 (88) 100 05/19/18 06:00 89 20 176/47 (90) 99 05/19/18 05:10 77 21 35 05/19/18 05:00 80 17 177/60 (99) 99 05/19/18 04:00 35 05/19/18 04:00 Mechanical Ventilator Mechanical Ventilator 05/19/18 04:00 109 19 156/73 (100) 99 05/19/18 03:15 139 23 35 05/19/18 03:00 98 17 173/25 (74) 99 05/19/18 02:00 121 29 141/89 (106) 98 05/19/18 01:00 115 25 123/50 (74) 97 05/19/18 00:59 108 20 35 05/19/18 00:00 Mechanical Ventilator Mechanical Ventilator 05/19/18 00:00 35 05/19/18 00:00 98.3 127 22 166/60 (95) 99 05/18/18 23:22 136 28 35 05/18/18 23:00 23 Mechanical Ventilator 35 05/18/18 23:00 135 26 204/32 (89) 99 05/18/18 22:00 132 27 204/32 (89) 98 05/18/18 22:00 19 Mechanical Ventilator 35 05/18/18 21:44 135 05/18/18 21:38 24 Mechanical Ventilator 35 05/18/18 21:11 Room Air 05/18/18 21:07 Room Air 05/18/18 21:00 84 16 172/67 (102) 100 05/18/18 20:38 76 23 35 05/18/18 20:00 99.3 85 19 181/38 (85) 100 05/18/18 20:00 35 05/18/18 20:00 Mechanical Ventilator Mechanical Ventilator 05/18/18 20:00 135 05/18/18 19:00 69 13 174/35 (81) 99 05/18/18 18:56 73 19 35 05/18/18 18:00 81 18 219/47 (104) 98 05/18/18 17:00 82 21 134/32 (66) 98 05/18/18 16:49 82 20 40 05/18/18 16:00 Mechanical Ventilator Mechanical Ventilator 05/18/18 16:00 40 05/18/18 16:00 88 29 99/29 (52) 95 05/18/18 15:50 88 35 40 05/18/18 15:14 78 18 40 05/18/18 15:00 79 24 159/49 (85) 97 05/18/18 14:00 73 21 98/49 (65) 98 05/18/18 13:00 77 21 126/63 (84) 98 05/18/18 12:42 77 16 40 05/18/18 12:30 79 22 159/46 (83) 94 05/18/18 12:00 Mechanical Ventilator Mechanical Ventilator 05/18/18 12:00 98.9 77 24 169/62 (97) 94 05/18/18 11:00 84 25 143/51 (81) 98 05/18/18 10:41 79 20 40 05/18/18 10:00 74 15 159/57 (91) 100 Height (Feet): 5 Height (Inches): 4.00 Weight (Pounds): 190 HEENT: other - orally intubated Respiratory/Chest: other - coarse sounds on ventilator Cardiovascular: normal rate, other - HD line Abdomen: other - abdominal wall dressing Extremities: other - edema Skin: other - petechia Neurologic/Psychiatric: other - sedated Laboratory Tests Test 05/18/18 10:15 05/19/18 04:00 05/19/18 07:40 Potassium Level 5.5 MMOL/L (3.5-5.1) H 4.7 MMOL/L (3.5-5.1) C-Reactive Protein, Quantitative 52.3 mg/dL (0.00-0.90) H Digoxin Level 2.0 NG/ML (0.5-2.0) White Blood Count 18.2 K/UL (4.8-10.8) H Red Blood Count 2.95 M/UL (4.70-6.10) L Hemoglobin 8.9 G/DL (14.2-18.0) L Hematocrit 27.3 % (42.0-52.0) L Mean Corpuscular Volume 93 FL (80-99) Mean Corpuscular Hemoglobin 30.3 PG (27.0-31.0) Mean Corpuscular Hemoglobin Concent 32.7 G/DL (32.0-36.0) Red Cell Distribution Width 14.9 % (11.6-14.8) H Platelet Count 322 K/UL (150-450) Mean Platelet Volume 7.8 FL (6.5-10.1) Neutrophils (%) (Auto) % (45.0-75.0) Lymphocytes (%) (Auto) % (20.0-45.0) Monocytes (%) (Auto) % (1.0-10.0) Eosinophils (%) (Auto) % (0.0-3.0) Basophils (%) (Auto) % (0.0-2.0) Differential Total Cells Counted 100 Neutrophils % (Manual) 92 % (45-75) H Lymphocytes % (Manual) 4 % (20-45) L Monocytes % (Manual) 3 % (1-10) Eosinophils % (Manual) 0 % (0-3) Basophils % (Manual) 0 % (0-2) Band Neutrophils 1 % (0-8) Platelet Estimate Adequate Platelet Morphology Normal Hypochromasia 1+ Anisocytosis 1+ Sodium Level 134 MMOL/L (136-145) L Chloride Level 97 MMOL/L (98-107) L Carbon Dioxide Level 26 MMOL/L (21-32) Anion Gap 11 mmol/L (5-15) Blood Urea Nitrogen 86 mg/dL (7-18) H Creatinine 5.3 MG/DL (0.55-1.30) H Estimat Glomerular Filtration Rate mL/min (>60) Glucose Level 165 MG/DL (74-106) H Lactic Acid Level 1.00 mmol/L (0.4-2.0) Uric Acid 7.1 MG/DL (2.6-7.2) Calcium Level 8.5 MG/DL (8.5-10.1) Phosphorus Level 8.6 MG/DL (2.5-4.9) H Magnesium Level 2.0 MG/DL (1.8-2.4) Total Bilirubin 0.5 MG/DL (0.2-1.0) Gamma Glutamyl Transpeptidase 83 U/L (5-85) Aspartate Amino Transf (AST/SGOT) 57 U/L (15-37) H Alanine Aminotransferase (ALT/SGPT) 24 U/L (12-78) Alkaline Phosphatase 157 U/L (46-116) H Troponin I 0.050 ng/mL (0.000-0.056) Pro-B-Type Natriuretic Peptide > 07951 pg/mL (0-125) H Total Protein 5.6 G/DL (6.4-8.2) L Albumin 1.8 G/DL (3.4-5.0) L Globulin 3.8 g/dL Albumin/Globulin Ratio 0.5 (1.0-2.7) L Arterial Blood pH 7.448 (7.350-7.450) Arterial Blood Partial Pressure CO2 34.6 mmHg (35.0-45.0) L Arterial Blood Partial Pressure O2 85.4 mmHg (75.0-100.0) Arterial Blood HCO3 23.4 mmol/L (22.0-26.0) Arterial Blood Oxygen Saturation 95.4 % (95-100) Arterial Blood Base Excess -0.3 (-2-2) Luiz Test Positive Current Medications Medications (Trade) Dose Ordered Sig/Min Route PRN Reason Start Time Stop Time Status Last Admin Dose Admin Acetaminophen (Tylenol) 650 mg Q4H PRN ORAL Mild Pain/Temp > 100.5 05/12/18 15:30 06/09/18 15:29 05/13/18 16:39 Amiodarone HCl 900 mg/Dextrose 500 ml @ 0 mls/hr Q24H IV 05/18/18 19:30 05/19/18 19:29 05/18/18 23:00 Ceftriaxone Sodium 1 gm/ Dextrose 55 ml @ 110 mls/hr Q24H IVPB 05/14/18 11:00 05/21/18 10:59 05/18/18 13:16 Chlorhexidine Gluconate (Tatyana-Hex 2%) 1 applic DAILY@2000 TOPIC 05/12/18 20:00 06/11/18 19:59 05/18/18 21:38 Dextrose (Dextrose 50%) 25 ml Q30M PRN IV Hypoglycemia 05/16/18 17:30 06/15/18 17:29 Dextrose (Dextrose 50%) 50 ml Q30M PRN IV Hypoglycemia 05/16/18 17:30 06/15/18 17:29 Digoxin (Lanoxin) 0.125 mg QOD IVP 05/18/18 21:00 06/17/18 20:59 05/18/18 21:44 Fentanyl Citrate 1000 mcg/Sodium Chloride 100 ml @ 0 mls/hr Q24H IV 05/18/18 09:00 05/25/18 08:59 05/18/18 21:38 Hydralazine HCl (Apresoline) 10 mg Q4H PRN IV bp over 160 syst 05/14/18 12:00 06/13/18 11:59 Hydrocortisone (Solu-CORTEF) 12.5 mg EVERY 8 HOURS IV 05/17/18 22:00 06/11/18 21:59 05/19/18 05:54 Hydromorphone HCl (Dilaudid) 1 mg Q2H PRN IVP Severe Pain (Pain Scale 7-10) 05/16/18 10:00 05/21/18 09:14 05/19/18 02:19 Insulin Aspart (NovoLOG) BEFORE MEALS AND HS SUBQ 05/16/18 21:00 06/15/18 20:59 05/19/18 05:55 Lorazepam (Ativan 2mg/ml 1ml) 1 mg Q6H PRN IV For Anxiety 05/19/18 08:15 05/26/18 08:14 Metoclopramide HCl (Reglan) 10 mg Q6H PRN IVP Nausea & Vomiting 05/16/18 06:15 06/10/18 15:29 Metronidazole 100 ml @ 100 mls/hr Q8HR IVPB 05/15/18 15:00 05/22/18 14:59 05/19/18 05:54 Midodrine (Pro-Amatine) 2.5 mg THREE TIMES A DAY ORAL 05/18/18 18:00 06/14/18 12:59 05/19/18 08:57 Norepinephrine Bitartrate 4 mg/ Dextrose 250 ml @ 0 mls/hr Q24H IV 05/16/18 08:00 06/15/18 07:59 05/17/18 04:35 Ondansetron HCl (Zofran) 4 mg Q6H PRN IVP Nausea & Vomiting 05/15/18 23:30 06/14/18 23:29 Pantoprazole (Protonix) 40 mg EVERY 12 HOURS IVP 05/12/18 21:00 06/10/18 20:59 05/18/18 21:39 Romie Hooks MD May 19, 2018 09:17
--- NOTE | 2018-05-19 09:25 | NUR ---
Weaning started. Placed Patient on PS +8 CPAP +5 FIO2 35%.
--- NOTE | 2018-05-19 09:58 | NUR ---
Weaning stopped. WOB increased. HR increased from 90 BPM to 123 BPM.
--- NOTE | 2018-05-19 10:00 | NUR ---
NURSE NOTES: Fentanyl titrated from 80 to 50 mcgs. Will continue to monitor.
--- NOTE | 2018-05-19 10:10 | Nephrology Progress Note ---
Assessment/Plan Problem List: (1) ESRD (end stage renal disease) on dialysis (2) Perforated bowel (3) Hyponatremia (4) Major depression (5) Nausea & vomiting (6) H/O abdominal surgery Assessment: recent Assessment recent abdominal surgery hemodynamically stablized over night Presents with CHF and Low Na ESRD ACS DM HTN h/o GI bleed Depression Plan dialysed 05/17 and next DC Steroids change Midodrine to PRN weaning as possible insulin for high BS hold dig , check levels Has abd surgery 05/15 Perforated bowel graft clotted , has a femoral felice right HOLD ALL MIND ALTERING MEDS - DC all po meds FLUID CHALLENGE pressors as needed BP HR Pain control discussed with RN and Dr Jones IV protonix Subjective ROS Limited/Unobtainable: Yes Objective Objective Last 24 Hour Vital Signs Date Time Temp Pulse Resp B/P (MAP) Pulse Ox O2 Delivery O2 Flow Rate FiO2 05/19/18 10:00 100 05/19/18 09:59 123 25 35 05/19/18 09:25 94 33 35 05/19/18 08:00 35 05/19/18 07:04 81 19 35 05/19/18 07:00 95 16 182/42 (88) 100 05/19/18 06:00 89 20 176/47 (90) 99 05/19/18 05:10 77 21 35 05/19/18 05:00 80 17 177/60 (99) 99 05/19/18 04:00 35 05/19/18 04:00 Mechanical Ventilator Mechanical Ventilator 05/19/18 04:00 109 19 156/73 (100) 99 05/19/18 03:15 139 23 35 05/19/18 03:00 98 17 173/25 (74) 99 05/19/18 02:00 121 29 141/89 (106) 98 05/19/18 01:00 115 25 123/50 (74) 97 05/19/18 00:59 108 20 35 05/19/18 00:00 Mechanical Ventilator Mechanical Ventilator 05/19/18 00:00 35 05/19/18 00:00 98.3 127 22 166/60 (95) 99 05/18/18 23:22 136 28 35 05/18/18 23:00 23 Mechanical Ventilator 35 05/18/18 23:00 135 26 204/32 (89) 99 05/18/18 22:00 132 27 204/32 (89) 98 05/18/18 22:00 19 Mechanical Ventilator 35 05/18/18 21:44 135 05/18/18 21:38 24 Mechanical Ventilator 35 05/18/18 21:11 Room Air 05/18/18 21:07 Room Air 05/18/18 21:00 84 16 172/67 (102) 100 05/18/18 20:38 76 23 35 05/18/18 20:00 99.3 85 19 181/38 (85) 100 05/18/18 20:00 35 05/18/18 20:00 Mechanical Ventilator Mechanical Ventilator 05/18/18 20:00 135 05/18/18 19:00 69 13 174/35 (81) 99 05/18/18 18:56 73 19 35 05/18/18 18:00 81 18 219/47 (104) 98 05/18/18 17:00 82 21 134/32 (66) 98 05/18/18 16:49 82 20 40 05/18/18 16:00 Mechanical Ventilator Mechanical Ventilator 05/18/18 16:00 40 05/18/18 16:00 88 29 99/29 (52) 95 05/18/18 15:50 88 35 40 05/18/18 15:14 78 18 40 05/18/18 15:00 79 24 159/49 (85) 97 05/18/18 14:00 73 21 98/49 (65) 98 05/18/18 13:00 77 21 126/63 (84) 98 05/18/18 12:42 77 16 40 05/18/18 12:30 79 22 159/46 (83) 94 05/18/18 12:00 Mechanical Ventilator Mechanical Ventilator 05/18/18 12:00 98.9 77 24 169/62 (97) 94 05/18/18 11:00 84 25 143/51 (81) 98 05/18/18 10:41 79 20 40 Intake and Output 05/18/18 05/19/18 19:00 07:00 Intake Total 343.28 ml 453.31 ml Output Total 0 ml 350 ml Balance 343.28 ml 103.31 ml IV Total 343.28 ml 453.31 ml Output Urine Total 0 ml 0 ml Hemodialysis UF 350 ml Laboratory Tests 05/18/18 10:15: Potassium Level 5.5H, C-Reactive Protein, Quantitative 52.3H, Digoxin Level 2.0 05/19/18 04:00: Potassium Level 4.7, White Blood Count 18.2H, Red Blood Count 2.95L, Hemoglobin 8.9L, Hematocrit 27.3L, Mean Corpuscular Volume 93, Mean Corpuscular Hemoglobin 30.3, Mean Corpuscular Hemoglobin Concent 32.7, Red Cell Distribution Width 14.9H, Platelet Count 322, Mean Platelet Volume 7.8, Neutrophils (%) (Auto) , Lymphocytes (%) (Auto) , Monocytes (%) (Auto) , Eosinophils (%) (Auto) , Basophils (%) (Auto) , Differential Total Cells Counted 100, Neutrophils % ( Manual) 92H, Lymphocytes % (Manual) 4L, Monocytes % (Manual) 3, Eosinophils % ( Manual) 0, Basophils % (Manual) 0, Band Neutrophils 1, Platelet Estimate Adequate, Platelet Morphology Normal, Hypochromasia 1+, Anisocytosis 1+, Sodium Level 134L, Chloride Level 97L, Carbon Dioxide Level 26, Anion Gap 11, Blood Urea Nitrogen 86H, Creatinine 5.3H, Estimat Glomerular Filtration Rate , Glucose Level 165H, Lactic Acid Level 1.00, Uric Acid 7.1, Calcium Level 8.5, Phosphorus Level 8.6H, Magnesium Level 2.0, Total Bilirubin 0.5, Gamma Glutamyl Transpeptidase 83, Aspartate Amino Transf (AST/SGOT) 57H, Alanine Aminotransferase (ALT/SGPT) 24, Alkaline Phosphatase 157H, Troponin I 0.050, Pro -B-Type Natriuretic Peptide > 11696Q, Total Protein 5.6L, Albumin 1.8L, Globulin 3.8, Albumin/Globulin Ratio 0.5L 05/19/18 07:40: Arterial Blood pH 7.448, Arterial Blood Partial Pressure CO2 34.6L, Arterial Blood Partial Pressure O2 85.4, Arterial Blood HCO3 23.4, Arterial Blood Oxygen Saturation 95.4, Arterial Blood Base Excess -0.3, Luiz Test Positive Height (Feet): 5 Height (Inches): 4.00 Weight (Pounds): 190 EENT: other - intubated Cardiovascular: tachycardia Respiratory/Chest: decreased breath sounds Abdomen: distended Objective no change Maurilio Arroyo MD May 19, 2018 10:10
[2018-05-19] MEDS: Pantoprazole Inj IVP SCH ×2 (11:37→21:26)
[2018-05-19] MEDS: Piperacillin/Tazobactam 2.25 GM in D5W 55 ML IVPB SCH ×2 (11:38→21:35)
[2018-05-19] MEDS: LORazepam Inj 2mg/ml 1ml IV PRN (11:38)
--- NOTE | 2018-05-19 11:40 | NUR ---
NURSE NOTES: Fentanyl drip dc'd. Patient was alert and awake and very anxious. Given Ativan instead. Will continue to monitor.
--- NOTE | 2018-05-19 12:35 | NUR ---
NURSE NOTES: Patient is resting comfortably. Patient is very drowsy, but opens eyes when spoken to. Patient does not appear in any acute distress. 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 VSS Patient is orally intubated with vent settings AC 16, TV 500, FIO2 35% and PEEP +5. Oral care was performed. Patient is afebrile. Patient has Amio running 0.5 mg. Patient has L VELVET drain draining serosanguineous fluid. Patient has SCD's on BLE. Safety measures are in place with bed locked in the lowest position, side rails upx3. Will continue to monitor and follow plan of care.
--- NOTE | 2018-05-19 13:28 | General Progress Note ---
Assessment/Plan Assessment/Plan (1) Abdominal pain (2) S/p Lap Cholecystectomy (3) Encephalopathy (4) ESRD on hemodialysis (5) S/p emergent exploratory laboratory small bowel resection omentectomy due to small bowel perforation in distal ileum Patient to be continued on Dilaudid. Parameters to be continued. D/w Dr. Busby and he concurred. Subjective Date patient seen: May 19, 2018 Time patient seen: 11:50 - pm ROS Limited/Unobtainable: Yes Allergies: Coded Allergies: No Known Allergies (Unverified , 11/12/12) Subjective Patient is in bed intubated d/w nurse at bedside. Patient continues to be on Dilaudid was started on Fentanyl drip and Ativan as per Labor Delivery Rn. At this time patient is sedated due to Ativan and unable to address pain. We will continue the Dilaudid. Objective Last 24 Hour Vital Signs Date Time Temp Pulse Resp B/P (MAP) Pulse Ox O2 Delivery O2 Flow Rate FiO2 05/19/18 12:44 75 22 35 05/19/18 11:05 91 22 35 05/19/18 10:00 22 Mechanical Ventilator 35 05/19/18 10:00 100 05/19/18 09:59 123 25 35 05/19/18 09:25 94 33 35 05/19/18 08:00 35 05/19/18 07:04 81 19 35 05/19/18 07:00 95 16 182/42 (88) 100 05/19/18 06:00 89 20 176/47 (90) 99 05/19/18 05:10 77 21 35 05/19/18 05:00 80 17 177/60 (99) 99 05/19/18 04:00 35 05/19/18 04:00 Mechanical Ventilator Mechanical Ventilator 05/19/18 04:00 109 19 156/73 (100) 99 05/19/18 03:15 139 23 35 05/19/18 03:00 98 17 173/25 (74) 99 05/19/18 02:00 121 29 141/89 (106) 98 05/19/18 01:00 115 25 123/50 (74) 97 05/19/18 00:59 108 20 35 05/19/18 00:00 Mechanical Ventilator Mechanical Ventilator 05/19/18 00:00 35 05/19/18 00:00 98.3 127 22 166/60 (95) 99 05/18/18 23:22 136 28 35 05/18/18 23:00 23 Mechanical Ventilator 35 05/18/18 23:00 135 26 204/32 (89) 99 05/18/18 22:00 132 27 204/32 (89) 98 05/18/18 22:00 19 Mechanical Ventilator 35 05/18/18 21:44 135 05/18/18 21:38 24 Mechanical Ventilator 35 05/18/18 21:11 Room Air 05/18/18 21:07 Room Air 05/18/18 21:00 84 16 172/67 (102) 100 05/18/18 20:38 76 23 35 05/18/18 20:00 99.3 85 19 181/38 (85) 100 05/18/18 20:00 35 05/18/18 20:00 Mechanical Ventilator Mechanical Ventilator 05/18/18 20:00 135 05/18/18 19:00 69 13 174/35 (81) 99 05/18/18 18:56 73 19 35 05/18/18 18:00 81 18 219/47 (104) 98 05/18/18 17:00 82 21 134/32 (66) 98 05/18/18 16:49 82 20 40 05/18/18 16:00 Mechanical Ventilator Mechanical Ventilator 05/18/18 16:00 40 05/18/18 16:00 88 29 99/29 (52) 95 05/18/18 15:50 88 35 40 05/18/18 15:14 78 18 40 05/18/18 15:00 79 24 159/49 (85) 97 05/18/18 14:00 73 21 98/49 (65) 98 Intake and Output 05/18/18 05/19/18 19:00 07:00 Intake Total 343.28 ml 453.31 ml Output Total 0 ml 350 ml Balance 343.28 ml 103.31 ml IV Total 343.28 ml 453.31 ml Output Urine Total 0 ml 0 ml Hemodialysis UF 350 ml Laboratory Tests 05/19/18 04:00: White Blood Count 18.2H, Red Blood Count 2.95L, Hemoglobin 8.9L, Hematocrit 27.3L, Mean Corpuscular Volume 93, Mean Corpuscular Hemoglobin 30.3, Mean Corpuscular Hemoglobin Concent 32.7, Red Cell Distribution Width 14.9H, Platelet Count 322, Mean Platelet Volume 7.8, Neutrophils (%) (Auto) , Lymphocytes (%) (Auto) , Monocytes (%) (Auto) , Eosinophils (%) (Auto) , Basophils (%) (Auto) , Differential Total Cells Counted 100, Neutrophils % ( Manual) 92H, Lymphocytes % (Manual) 4L, Monocytes % (Manual) 3, Eosinophils % ( Manual) 0, Basophils % (Manual) 0, Band Neutrophils 1, Platelet Estimate Adequate, Platelet Morphology Normal, Hypochromasia 1+, Anisocytosis 1+, Sodium Level 134L, Potassium Level 4.7, Chloride Level 97L, Carbon Dioxide Level 26, Anion Gap 11, Blood Urea Nitrogen 86H, Creatinine 5.3H, Estimat Glomerular Filtration Rate , Glucose Level 165H, Lactic Acid Level 1.00, Uric Acid 7.1, Calcium Level 8.5, Phosphorus Level 8.6H, Magnesium Level 2.0, Total Bilirubin 0.5, Gamma Glutamyl Transpeptidase 83, Aspartate Amino Transf (AST/SGOT) 57H, Alanine Aminotransferase (ALT/SGPT) 24, Alkaline Phosphatase 157H, Troponin I 0.050, Pro-B-Type Natriuretic Peptide > 57818Q, Total Protein 5.6L, Albumin 1.8L , Globulin 3.8, Albumin/Globulin Ratio 0.5L 05/19/18 07:40: Arterial Blood pH 7.448, Arterial Blood Partial Pressure CO2 34.6L, Arterial Blood Partial Pressure O2 85.4, Arterial Blood HCO3 23.4, Arterial Blood Oxygen Saturation 95.4, Arterial Blood Base Excess -0.3, Luiz Test Positive Height (Feet): 5 Height (Inches): 4.00 Weight (Pounds): 190 Objective GENERAL: Intubated. LUNGS: Decreased breath sounds bilaterally. HEART: S1 S2 Regular. ABDOMEN: Tenderness to palpation. Bandages and drain noted. EXTREMITIES: No cyanosis. No clubbing. Sid Holland May 19, 2018 13:28
--- NOTE | 2018-05-19 14:08 | General Progress Note ---
Assessment/Plan Assessment/Plan # Anemia of chronic disease due to underlying chronic medical issues, multifactorial. --> anemia w/u reviewed --> Monitor for stability --> trend 10.3-->7.6-->8.9 # Small bowel perforation, s/p bowel resection, with Gram negative sepsis is on abx In ICU s/p Small bowel resection on Amiodarone and Levophed drip. HR around 100. --> on broad spectrum abx --> on vanc/cefepime as per id--> now changed to ceftriaxone --> s/p sb resection on 05/15, appreciate surg recs --> on pressors as well,++ vent # Lower extremity edema with an elevated BNP in a patient with renal failure on hemodialysis. --> on HD per Dr. Arroyo. --> currently has improved # Atrial fib w rvr/flutter, and Chest pain, rule out acs --> Cardiology is following, appreciate recs, echo was reviewed --> Currently denies any chest pain, completely rule out ACS --> EKG showed old inferior and anterior wall [place], but no ischemia. --> ECHO with normal LV function --> on heparin gtt 05/13 for potential pe, cta neg --> now d/albert # End-stage renal disease, on hemodialysis and also hyponatremia. --> Nephro is following, appreciate recs. --> On intermittent HD Subjective ROS Limited/Unobtainable: Yes Allergies: Coded Allergies: No Known Allergies (Unverified , 11/12/12) Subjective 05/12: Pt resting in bed. No acute events. H/H stable. On abx. VS stable. 05/13: on pressors, on hep gtt, on steriods, abx, got hd, felice catheter in place : CT-A was negative, hep gtt as per cards, abg reviewed, moaning on exam, on ceftriaxone 05/15 :Pt remains in ICU. Currently undergoing HD. Pt on 2 cardiac drips for elevated Bp. WBC remains elevated. H/H stable. 05/16: s/p sb resection, In ICU s/p Small bowel resection on Amiodarone and Levophed drip. HR around 100. 05/17: Orally intubated on Ac 16, Vt 500, P 5 fio2 30%. Pt continues NPO at this time. Right upper arm and right FA IV sites patent and intact at this time. Amio gtt running 05/18: Pt remains in ICU. Pt for STAT HD. WBC remains elevated, afebrile. 05/19: getting hd periodically, no other events, vent to be weaned, labs reviewed, on dilaudid, ativan and fentanyl per pulm Objective Last 24 Hour Vital Signs Date Time Temp Pulse Resp B/P (MAP) Pulse Ox O2 Delivery O2 Flow Rate FiO2 05/19/18 12:44 75 22 35 05/19/18 12:00 35 05/19/18 12:00 Mechanical Ventilator Mechanical Ventilator 05/19/18 11:05 91 22 35 05/19/18 10:00 22 Mechanical Ventilator 35 05/19/18 10:00 100 05/19/18 09:59 123 25 35 05/19/18 09:25 94 33 35 05/19/18 08:00 Mechanical Ventilator Mechanical Ventilator 05/19/18 08:00 35 05/19/18 07:04 81 19 35 05/19/18 07:00 95 16 182/42 (88) 100 05/19/18 06:00 89 20 176/47 (90) 99 05/19/18 05:10 77 21 35 05/19/18 05:00 80 17 177/60 (99) 99 05/19/18 04:00 35 05/19/18 04:00 Mechanical Ventilator Mechanical Ventilator 05/19/18 04:00 109 19 156/73 (100) 99 05/19/18 03:15 139 23 35 05/19/18 03:00 98 17 173/25 (74) 99 05/19/18 02:00 121 29 141/89 (106) 98 05/19/18 01:00 115 25 123/50 (74) 97 05/19/18 00:59 108 20 35 05/19/18 00:00 Mechanical Ventilator Mechanical Ventilator 05/19/18 00:00 35 05/19/18 00:00 98.3 127 22 166/60 (95) 99 05/18/18 23:22 136 28 35 05/18/18 23:00 23 Mechanical Ventilator 35 05/18/18 23:00 135 26 204/32 (89) 99 05/18/18 22:00 132 27 204/32 (89) 98 05/18/18 22:00 19 Mechanical Ventilator 35 05/18/18 21:44 135 05/18/18 21:38 24 Mechanical Ventilator 35 05/18/18 21:11 Room Air 05/18/18 21:07 Room Air 05/18/18 21:00 84 16 172/67 (102) 100 05/18/18 20:38 76 23 35 05/18/18 20:00 99.3 85 19 181/38 (85) 100 05/18/18 20:00 35 05/18/18 20:00 Mechanical Ventilator Mechanical Ventilator 05/18/18 20:00 135 05/18/18 19:00 69 13 174/35 (81) 99 05/18/18 18:56 73 19 35 05/18/18 18:00 81 18 219/47 (104) 98 05/18/18 17:00 82 21 134/32 (66) 98 05/18/18 16:49 82 20 40 05/18/18 16:00 Mechanical Ventilator Mechanical Ventilator 05/18/18 16:00 40 05/18/18 16:00 88 29 99/29 (52) 95 05/18/18 15:50 88 35 40 05/18/18 15:14 78 18 40 05/18/18 15:00 79 24 159/49 (85) 97 Intake and Output 05/18/18 05/19/18 19:00 07:00 Intake Total 343.28 ml 453.31 ml Output Total 0 ml 350 ml Balance 343.28 ml 103.31 ml IV Total 343.28 ml 453.31 ml Output Urine Total 0 ml 0 ml Hemodialysis UF 350 ml Laboratory Tests 05/19/18 04:00: White Blood Count 18.2H, Red Blood Count 2.95L, Hemoglobin 8.9L, Hematocrit 27.3L, Mean Corpuscular Volume 93, Mean Corpuscular Hemoglobin 30.3, Mean Corpuscular Hemoglobin Concent 32.7, Red Cell Distribution Width 14.9H, Platelet Count 322, Mean Platelet Volume 7.8, Neutrophils (%) (Auto) , Lymphocytes (%) (Auto) , Monocytes (%) (Auto) , Eosinophils (%) (Auto) , Basophils (%) (Auto) , Differential Total Cells Counted 100, Neutrophils % ( Manual) 92H, Lymphocytes % (Manual) 4L, Monocytes % (Manual) 3, Eosinophils % ( Manual) 0, Basophils % (Manual) 0, Band Neutrophils 1, Platelet Estimate Adequate, Platelet Morphology Normal, Hypochromasia 1+, Anisocytosis 1+, Sodium Level 134L, Potassium Level 4.7, Chloride Level 97L, Carbon Dioxide Level 26, Anion Gap 11, Blood Urea Nitrogen 86H, Creatinine 5.3H, Estimat Glomerular Filtration Rate , Glucose Level 165H, Lactic Acid Level 1.00, Uric Acid 7.1, Calcium Level 8.5, Phosphorus Level 8.6H, Magnesium Level 2.0, Total Bilirubin 0.5, Gamma Glutamyl Transpeptidase 83, Aspartate Amino Transf (AST/SGOT) 57H, Alanine Aminotransferase (ALT/SGPT) 24, Alkaline Phosphatase 157H, Troponin I 0.050, Pro-B-Type Natriuretic Peptide > 91575D, Total Protein 5.6L, Albumin 1.8L , Globulin 3.8, Albumin/Globulin Ratio 0.5L 05/19/18 07:40: Arterial Blood pH 7.448, Arterial Blood Partial Pressure CO2 34.6L, Arterial Blood Partial Pressure O2 85.4, Arterial Blood HCO3 23.4, Arterial Blood Oxygen Saturation 95.4, Arterial Blood Base Excess -0.3, Luiz Test Positive Height (Feet): 5 Height (Inches): 4.00 Weight (Pounds): 190 Objective PHYSICAL EXAMINATION: VITAL SIGNS: Have been reviewed HEENT: PERRLA. NECK: Supple. No lymphadenopathy. CHEST: ++ intubated CARDIOVASCULAR: Tachycardic. GASTROINTESTINAL: Distended. Positive bowel sounds. Nontender. No organomegaly. + ryan drain in place EXTREMITY: A 1+ edema. Reflexes are equal on both sides. Reinaldo Leon MD May 19, 2018 14:08
--- NOTE | 2018-05-19 15:23 | General Progress Note ---
Assessment/Plan Problem List: (1) ACS (acute coronary syndrome) ICD Codes: I24.9 - Acute ischemic heart disease, unspecified SNOMED: 571571799 (2) ESRD (end stage renal disease) on dialysis ICD Codes: N18.6 - End stage renal disease; Z99.2 - Dependence on renal dialysis SNOMED: 266533020 (3) Depression ICD Codes: F32.9 - Major depressive disorder, single episode, unspecified SNOMED: 74295965 (4) Anemia ICD Codes: D64.9 - Anemia, unspecified SNOMED: 976820515 (5) Sacral decubitus ulcer, stage III ICD Codes: L89.153 - Pressure ulcer of sacral region, stage 3 SNOMED: 682346259, 105360308 (6) Major depression ICD Codes: F32.9 - Major depressive disorder, single episode, unspecified SNOMED: 229475488 (7) anxiety disorder (8) Atrial fibrillation ICD Codes: I48.91 - Unspecified atrial fibrillation SNOMED: 99429250 (9) Hypoxemia ICD Codes: R09.02 - Hypoxemia SNOMED: 632951501 (10) Hypotension ICD Codes: I95.9 - Hypotension, unspecified SNOMED: 24775340 (11) Shock ICD Codes: R57.9 - Shock, unspecified SNOMED: 07835499 (12) Elevated d-dimer ICD Codes: R79.89 - Other specified abnormal findings of blood chemistry SNOMED: 839766121 (13) encephalopathy due to metabolic factor Status: unchanged Assessment/Plan respiratory failure intubated anxious esrd on hd s/p septic shock pna poor prognosis hypotension improving got ativan for anxiety Subjective ROS Limited/Unobtainable: Yes Allergies: Coded Allergies: No Known Allergies (Unverified , 11/12/12) Objective Last 24 Hour Vital Signs Date Time Temp Pulse Resp B/P (MAP) Pulse Ox O2 Delivery O2 Flow Rate FiO2 05/19/18 14:51 74 26 35 05/19/18 12:44 75 22 35 05/19/18 12:00 35 05/19/18 12:00 Mechanical Ventilator Mechanical Ventilator 05/19/18 11:05 91 22 35 05/19/18 10:00 22 Mechanical Ventilator 35 05/19/18 10:00 100 05/19/18 09:59 123 25 35 05/19/18 09:25 94 33 35 05/19/18 08:00 Mechanical Ventilator Mechanical Ventilator 05/19/18 08:00 35 05/19/18 07:04 81 19 35 05/19/18 07:00 95 16 182/42 (88) 100 05/19/18 06:00 89 20 176/47 (90) 99 05/19/18 05:10 77 21 35 05/19/18 05:00 80 17 177/60 (99) 99 05/19/18 04:00 35 05/19/18 04:00 Mechanical Ventilator Mechanical Ventilator 05/19/18 04:00 109 19 156/73 (100) 99 05/19/18 03:15 139 23 35 05/19/18 03:00 98 17 173/25 (74) 99 05/19/18 02:00 121 29 141/89 (106) 98 05/19/18 01:00 115 25 123/50 (74) 97 05/19/18 00:59 108 20 35 05/19/18 00:00 Mechanical Ventilator Mechanical Ventilator 05/19/18 00:00 35 05/19/18 00:00 98.3 127 22 166/60 (95) 99 05/18/18 23:22 136 28 35 05/18/18 23:00 23 Mechanical Ventilator 35 05/18/18 23:00 135 26 204/32 (89) 99 05/18/18 22:00 132 27 204/32 (89) 98 05/18/18 22:00 19 Mechanical Ventilator 35 05/18/18 21:44 135 05/18/18 21:38 24 Mechanical Ventilator 35 05/18/18 21:11 Room Air 05/18/18 21:07 Room Air 05/18/18 21:00 84 16 172/67 (102) 100 05/18/18 20:38 76 23 35 05/18/18 20:00 99.3 85 19 181/38 (85) 100 05/18/18 20:00 35 05/18/18 20:00 Mechanical Ventilator Mechanical Ventilator 05/18/18 20:00 135 05/18/18 19:00 69 13 174/35 (81) 99 05/18/18 18:56 73 19 35 05/18/18 18:00 81 18 219/47 (104) 98 05/18/18 17:00 82 21 134/32 (66) 98 05/18/18 16:49 82 20 40 05/18/18 16:00 Mechanical Ventilator Mechanical Ventilator 05/18/18 16:00 40 05/18/18 16:00 88 29 99/29 (52) 95 05/18/18 15:50 88 35 40 Intake and Output 05/18/18 05/19/18 19:00 07:00 Intake Total 343.28 ml 453.31 ml Output Total 0 ml 350 ml Balance 343.28 ml 103.31 ml IV Total 343.28 ml 453.31 ml Output Urine Total 0 ml 0 ml Hemodialysis UF 350 ml Laboratory Tests 05/19/18 04:00: White Blood Count 18.2H, Red Blood Count 2.95L, Hemoglobin 8.9L, Hematocrit 27.3L, Mean Corpuscular Volume 93, Mean Corpuscular Hemoglobin 30.3, Mean Corpuscular Hemoglobin Concent 32.7, Red Cell Distribution Width 14.9H, Platelet Count 322, Mean Platelet Volume 7.8, Neutrophils (%) (Auto) , Lymphocytes (%) (Auto) , Monocytes (%) (Auto) , Eosinophils (%) (Auto) , Basophils (%) (Auto) , Differential Total Cells Counted 100, Neutrophils % ( Manual) 92H, Lymphocytes % (Manual) 4L, Monocytes % (Manual) 3, Eosinophils % ( Manual) 0, Basophils % (Manual) 0, Band Neutrophils 1, Platelet Estimate Adequate, Platelet Morphology Normal, Hypochromasia 1+, Anisocytosis 1+, Sodium Level 134L, Potassium Level 4.7, Chloride Level 97L, Carbon Dioxide Level 26, Anion Gap 11, Blood Urea Nitrogen 86H, Creatinine 5.3H, Estimat Glomerular Filtration Rate , Glucose Level 165H, Lactic Acid Level 1.00, Uric Acid 7.1, Calcium Level 8.5, Phosphorus Level 8.6H, Magnesium Level 2.0, Total Bilirubin 0.5, Gamma Glutamyl Transpeptidase 83, Aspartate Amino Transf (AST/SGOT) 57H, Alanine Aminotransferase (ALT/SGPT) 24, Alkaline Phosphatase 157H, Troponin I 0.050, Pro-B-Type Natriuretic Peptide > 02889V, Total Protein 5.6L, Albumin 1.8L , Globulin 3.8, Albumin/Globulin Ratio 0.5L 05/19/18 07:40: Arterial Blood pH 7.448, Arterial Blood Partial Pressure CO2 34.6L, Arterial Blood Partial Pressure O2 85.4, Arterial Blood HCO3 23.4, Arterial Blood Oxygen Saturation 95.4, Arterial Blood Base Excess -0.3, Luiz Test Positive Height (Feet): 5 Height (Inches): 4.00 Weight (Pounds): 193 General Appearance: lethargic, confused Cardiovascular: normal rate Respiratory/Chest: crackles/rales Samantha Head MD May 19, 2018 15:23
[2018-05-19] MEDS ORDERED: Haloperidol 5mg/ml Inj IM PRN (16:00)
--- NOTE | 2018-05-19 16:05 | General Progress Note ---
Assessment/Plan Problem List: (1) Major depression ICD Codes: F32.9 - Major depressive disorder, single episode, unspecified SNOMED: 552628093 (2) anxiety disorder (3) encephalopathy due to metabolic factor Assessment/Plan zoloft 50mg q daily haldol 5mg im q6hr prn dw casandra head and yolande gomes pts nurse Jenna Subjective Neurologic/Psychiatric: Reports: anxiety Allergies: Coded Allergies: No Known Allergies (Unverified , 11/12/12) Subjective I received a call from Dr. Head to order meds for agitation. ativan ordered by primary has not worked/ the pt is agitated and his nurse unable to wean him off. Spoke with his nurse Jenna the pt is severely agitated Objective Last 24 Hour Vital Signs Date Time Temp Pulse Resp B/P (MAP) Pulse Ox O2 Delivery O2 Flow Rate FiO2 05/19/18 14:51 74 26 35 05/19/18 12:44 75 22 35 05/19/18 12:00 35 05/19/18 12:00 Mechanical Ventilator Mechanical Ventilator 05/19/18 11:05 91 22 35 05/19/18 10:00 22 Mechanical Ventilator 35 05/19/18 10:00 100 05/19/18 09:59 123 25 35 05/19/18 09:25 94 33 35 05/19/18 08:00 Mechanical Ventilator Mechanical Ventilator 05/19/18 08:00 35 05/19/18 07:04 81 19 35 05/19/18 07:00 95 16 182/42 (88) 100 05/19/18 06:00 89 20 176/47 (90) 99 05/19/18 05:10 77 21 35 05/19/18 05:00 80 17 177/60 (99) 99 05/19/18 04:00 35 05/19/18 04:00 Mechanical Ventilator Mechanical Ventilator 05/19/18 04:00 109 19 156/73 (100) 99 05/19/18 03:15 139 23 35 05/19/18 03:00 98 17 173/25 (74) 99 05/19/18 02:00 121 29 141/89 (106) 98 05/19/18 01:00 115 25 123/50 (74) 97 05/19/18 00:59 108 20 35 05/19/18 00:00 Mechanical Ventilator Mechanical Ventilator 05/19/18 00:00 35 05/19/18 00:00 98.3 127 22 166/60 (95) 99 05/18/18 23:22 136 28 35 05/18/18 23:00 23 Mechanical Ventilator 35 05/18/18 23:00 135 26 204/32 (89) 99 05/18/18 22:00 132 27 204/32 (89) 98 05/18/18 22:00 19 Mechanical Ventilator 35 05/18/18 21:44 135 05/18/18 21:38 24 Mechanical Ventilator 35 05/18/18 21:11 Room Air 05/18/18 21:07 Room Air 05/18/18 21:00 84 16 172/67 (102) 100 05/18/18 20:38 76 23 35 05/18/18 20:00 99.3 85 19 181/38 (85) 100 05/18/18 20:00 35 05/18/18 20:00 Mechanical Ventilator Mechanical Ventilator 05/18/18 20:00 135 05/18/18 19:00 69 13 174/35 (81) 99 05/18/18 18:56 73 19 35 05/18/18 18:00 81 18 219/47 (104) 98 05/18/18 17:00 82 21 134/32 (66) 98 05/18/18 16:49 82 20 40 Intake and Output 05/18/18 05/19/18 19:00 07:00 Intake Total 343.28 ml 453.31 ml Output Total 0 ml 350 ml Balance 343.28 ml 103.31 ml IV Total 343.28 ml 453.31 ml Output Urine Total 0 ml 0 ml Hemodialysis UF 350 ml Laboratory Tests 05/19/18 04:00: White Blood Count 18.2H, Red Blood Count 2.95L, Hemoglobin 8.9L, Hematocrit 27.3L, Mean Corpuscular Volume 93, Mean Corpuscular Hemoglobin 30.3, Mean Corpuscular Hemoglobin Concent 32.7, Red Cell Distribution Width 14.9H, Platelet Count 322, Mean Platelet Volume 7.8, Neutrophils (%) (Auto) , Lymphocytes (%) (Auto) , Monocytes (%) (Auto) , Eosinophils (%) (Auto) , Basophils (%) (Auto) , Differential Total Cells Counted 100, Neutrophils % ( Manual) 92H, Lymphocytes % (Manual) 4L, Monocytes % (Manual) 3, Eosinophils % ( Manual) 0, Basophils % (Manual) 0, Band Neutrophils 1, Platelet Estimate Adequate, Platelet Morphology Normal, Hypochromasia 1+, Anisocytosis 1+, Sodium Level 134L, Potassium Level 4.7, Chloride Level 97L, Carbon Dioxide Level 26, Anion Gap 11, Blood Urea Nitrogen 86H, Creatinine 5.3H, Estimat Glomerular Filtration Rate , Glucose Level 165H, Lactic Acid Level 1.00, Uric Acid 7.1, Calcium Level 8.5, Phosphorus Level 8.6H, Magnesium Level 2.0, Total Bilirubin 0.5, Gamma Glutamyl Transpeptidase 83, Aspartate Amino Transf (AST/SGOT) 57H, Alanine Aminotransferase (ALT/SGPT) 24, Alkaline Phosphatase 157H, Troponin I 0.050, Pro-B-Type Natriuretic Peptide > 52811G, Total Protein 5.6L, Albumin 1.8L , Globulin 3.8, Albumin/Globulin Ratio 0.5L 05/19/18 07:40: Arterial Blood pH 7.448, Arterial Blood Partial Pressure CO2 34.6L, Arterial Blood Partial Pressure O2 85.4, Arterial Blood HCO3 23.4, Arterial Blood Oxygen Saturation 95.4, Arterial Blood Base Excess -0.3, Luiz Test Positive Height (Feet): 5 Height (Inches): 4.00 Weight (Pounds): 193 General Appearance: agitated Chely Kulkarni MD May 19, 2018 16:05
[2018-05-19] MEDS ORDERED: Tubing IV Secondary IV ONE (16:12)
[2018-05-19] MEDS ORDERED: D5 1/2NS 1000ml IV ONE (16:12)
--- NOTE | 2018-05-19 17:10 | NUR ---
NURSE NOTES: Patient with cuff that is leaking. Patient requires reintubation. Patient tolerated well. 20 of Etomidate was given. Patient is saturating well. CXR was ordered and ABG for tomorrow am. Will continue to monitor and follow plan of care
--- NOTE | 2018-05-19 17:58 | General Progress Note ---
Progress Note Progress Note still intubated on vent. fails weaning trials leukocytosis improving labs noted micro noted drains serous exam improved awake / alert cont to wean vent as tolerated cont drain care cont abx thanks Tomas Chandler May 19, 2018 17:58
--- NOTE | 2018-05-19 19:00 | NUR ---
NURSE NOTES: Patient received from Jenna AGUILA. Patient on Ventilator ETT size 7.5, 22cm at this lip, SR/Afib on the monitor. Patient has R fermoal Donis cath for HD access and L AV fistula that is not working. Patient also has R FA 20G and R UA 20G running Amiodarone 0.5mg/hr. Patient is on isolation. Will continue to monitor.
--- NOTE | 2018-05-19 19:07 | Pulmonolgy Critical Care Note ---
Critical Care - Asmt/Plan Assessment/Plan: (1) Shock (2) Hypoxemia (3) Elevated d-dimer with negative CTA (4) Hypotension (5) Atrial fibrillation (6) ESRDon dialysis (7) ACS (8) Sacral decubitus ulcer, stage III (9) S/P cholecystectomy (10) Serratia sepsis (11) S/P exploratory laparotomy (12) Perforated viscus Assessment/Plan: -Post-op recs and wound care -Pain control/supportive care -Continue ventilatory support/settings reviewed and weaning -Titrate down FiO2 to keep SaO2 > 90%, continue PEEP 5 -HD per renal MVWF with extra session 05/18 -Titrate NE to keep MAP > 60 ABG better -rate control amio drip for now -Heparin held, resume when ok with surgery -Monitor for bleeding -Abx per ID, F/U Cx's -Decrease HC to 12.5 TID and taper -FC FU CXR post reintubation NPO Tf when cleared by surgery greater than 35 minhuts of cc time spent with the patient case dw nursing and consultants, pressors for MAP less than 65 mmhg. remains critically ill Critical Care - Objective Last 24 Hour Vital Signs Date Time Temp Pulse Resp B/P (MAP) Pulse Ox O2 Delivery O2 Flow Rate FiO2 05/19/18 17:00 84 27 83/10 (34) 100 05/19/18 16:41 73 27 35 05/19/18 16:00 Mechanical Ventilator Mechanical Ventilator 05/19/18 16:00 35 05/19/18 16:00 98.3 84 27 99/16 (43) 96 05/19/18 15:00 110 27 130/37 (68) 98 05/19/18 14:51 74 26 35 05/19/18 14:00 76 27 90/21 (44) 98 05/19/18 13:00 75 31 102/33 (56) 98 05/19/18 12:44 75 22 35 05/19/18 12:30 75 31 111/13 (45) 98 05/19/18 12:00 98.4 84 27 73/14 (33) 98 05/19/18 12:00 35 05/19/18 12:00 Mechanical Ventilator Mechanical Ventilator 05/19/18 11:30 84 27 79/18 (38) 98 05/19/18 11:05 91 22 35 05/19/18 11:00 76 27 82/31 (48) 98 05/19/18 10:30 76 27 165/34 (77) 98 05/19/18 10:00 75 21 162/35 (77) 98 18 10:00 22 Mechanical Ventilator 35 05/19/18 10:00 100 05/19/18 09:59 123 25 35 05/19/18 09:30 87 22 177/27 (77) 98 05/19/18 09:25 94 33 35 05/19/18 09:00 94 27 179/35 (83) 98 05/19/18 08:30 92 27 205/37 (92) 98 05/19/18 08:00 Mechanical Ventilator Mechanical Ventilator 05/19/18 08:00 35 05/19/18 08:00 98.2 78 27 163/33 (76) 99 05/19/18 07:30 82 22 167/33 (77) 98 05/19/18 07:04 81 19 35 05/19/18 07:00 95 16 182/42 (88) 100 05/19/18 06:00 89 20 176/47 (90) 99 05/19/18 05:10 77 21 35 05/19/18 05:00 80 17 177/60 (99) 99 05/19/18 04:00 35 05/19/18 04:00 Mechanical Ventilator Mechanical Ventilator 05/19/18 04:00 109 19 156/73 (100) 99 05/19/18 03:15 139 23 35 05/19/18 03:00 98 17 173/25 (74) 99 05/19/18 02:00 121 29 141/89 (106) 98 05/19/18 01:00 115 25 123/50 (74) 97 05/19/18 00:59 108 20 35 05/19/18 00:00 Mechanical Ventilator Mechanical Ventilator 05/19/18 00:00 35 05/19/18 00:00 98.3 127 22 166/60 (95) 99 05/18/18 23:22 136 28 35 05/18/18 23:00 23 Mechanical Ventilator 35 05/18/18 23:00 135 26 204/32 (89) 99 05/18/18 22:00 132 27 204/32 (89) 98 05/18/18 22:00 19 Mechanical Ventilator 35 05/18/18 21:44 135 05/18/18 21:38 24 Mechanical Ventilator 35 05/18/18 21:11 Room Air 05/18/18 21:07 Room Air 05/18/18 21:00 84 16 172/67 (102) 100 05/18/18 20:38 76 23 35 05/18/18 20:00 99.3 85 19 181/38 (85) 100 05/18/18 20:00 35 05/18/18 20:00 Mechanical Ventilator Mechanical Ventilator 05/18/18 20:00 135 Status: obtunded Condition: critical Lungs: rhonchi Heart: HR/BP stable Abdomen: soft, other - tended Extremities: edema Accucheck: 166 Blood Sugars: BS not controlled Critical Care - Subjective ROS Limited/Unobtainable: Yes Condition: critical EKG Rhythm: Sinus Rhythm FI02: 35 Vent Support Breath Rate: 16 Vent Support Mode: AC Vent Tidal Volume: 500 Sputum Amount: Scant PEEP: 5.0 PIP: 20 I&O: Intake and Output 05/18/18 05/19/18 19:00 07:00 Intake Total 343.28 ml 486.64 ml Output Total 0 ml 350 ml Balance 343.28 ml 136.64 ml IV Total 343.28 ml 486.64 ml Output Urine Total 0 ml 0 ml Hemodialysis UF 350 ml Subjective: sedated at this time ET tube exchanged today due to cuff leak did not wean today psych meds per psych no cp nv or bleeding no fever noted not getting oob NPO CXR: new cxr pending post reintubation ET-Tube: 7.5 ET Position: 22 Labs: Current Medications Medications (Trade) Dose Ordered Sig/Min Route PRN Reason Start Time Stop Time Status Last Admin Dose Admin Acetaminophen (Tylenol) 650 mg Q4H PRN ORAL Mild Pain/Temp > 100.5 05/12/18 15:30 06/09/18 15:29 05/13/18 16:39 Amiodarone HCl 900 mg/Dextrose 500 ml @ 0 mls/hr Q24H IV 05/18/18 19:30 05/19/18 19:29 05/18/18 23:00 Chlorhexidine Gluconate (Tatyana-Hex 2%) 1 applic DAILY@1999 TOPIC 05/12/18 20:00 06/11/18 19:59 05/18/18 21:38 Dextrose (Dextrose 50%) 25 ml Q30M PRN IV Hypoglycemia 05/16/18 17:30 06/15/18 17:29 Dextrose (Dextrose 50%) 50 ml Q30M PRN IV Hypoglycemia 05/16/18 17:30 06/15/18 17:29 Fentanyl Citrate 1000 mcg/Sodium Chloride 100 ml @ 0 mls/hr Q24H IV 05/18/18 09:00 05/25/18 08:59 05/19/18 10:00 Haloperidol Lactate (Haldol) 5 mg Q6H PRN IM Agitation 05/19/18 16:00 06/18/18 15:59 Hydralazine HCl (Apresoline) 10 mg Q4H PRN IV bp over 160 syst 05/14/18 12:00 06/13/18 11:59 Hydromorphone HCl (Dilaudid) 1 mg Q2H PRN IVP Severe Pain (Pain Scale 7-10) 05/16/18 10:00 05/21/18 09:14 05/19/18 02:19 Insulin Aspart (NovoLOG) BEFORE MEALS AND HS SUBQ 05/16/18 21:00 06/15/18 20:59 05/19/18 17:30 Lorazepam (Ativan 2mg/ml 1ml) 1 mg Q6H PRN IV For Anxiety 05/19/18 08:15 05/26/18 08:14 05/19/18 11:38 Metoclopramide HCl (Reglan) 10 mg Q6H PRN IVP Nausea & Vomiting 05/16/18 06:15 06/10/18 15:29 Midodrine (Pro-Amatine) 2.5 mg THREE TIMES A DAY PRN ORAL for bp below 100 syst 05/19/18 10:15 06/14/18 12:59 Norepinephrine Bitartrate 4 mg/ Dextrose 250 ml @ 0 mls/hr Q24H IV 05/16/18 08:00 06/15/18 07:59 05/17/18 04:35 Ondansetron HCl (Zofran) 4 mg Q6H PRN IVP Nausea & Vomiting 05/15/18 23:30 06/14/18 23:29 Pantoprazole (Protonix) 40 mg EVERY 12 HOURS IVP 05/12/18 21:00 1/21/19 20:59 05/19/18 11:37 Piperacillin Sod/ Tazobactam Sod 2.25 gm/Dextrose 55 ml @ 110 mls/hr Q8HR IVPB 05/19/18 12:00 05/24/18 11:59 05/19/18 11:38 Sertraline HCl (Zoloft) 50 mg DAILY ORAL 05/20/18 09:00 06/19/18 08:59 Laboratory Tests Test 05/19/18 04:00 05/19/18 07:40 White Blood Count 18.2 K/UL (4.8-10.8) H Red Blood Count 2.95 M/UL (4.70-6.10) L Hemoglobin 8.9 G/DL (14.2-18.0) L Hematocrit 27.3 % (42.0-52.0) L Mean Corpuscular Volume 93 FL (80-99) Mean Corpuscular Hemoglobin 30.3 PG (27.0-31.0) Mean Corpuscular Hemoglobin Concent 32.7 G/DL (32.0-36.0) Red Cell Distribution Width 14.9 % (11.6-14.8) H Platelet Count 322 K/UL (150-450) Mean Platelet Volume 7.8 FL (6.5-10.1) Neutrophils (%) (Auto) % (45.0-75.0) Lymphocytes (%) (Auto) % (20.0-45.0) Monocytes (%) (Auto) % (1.0-10.0) Eosinophils (%) (Auto) % (0.0-3.0) Basophils (%) (Auto) % (0.0-2.0) Differential Total Cells Counted 100 Neutrophils % (Manual) 92 % (45-75) H Lymphocytes % (Manual) 4 % (20-45) L Monocytes % (Manual) 3 % (1-10) Eosinophils % (Manual) 0 % (0-3) Basophils % (Manual) 0 % (0-2) Band Neutrophils 1 % (0-8) Platelet Estimate Adequate Platelet Morphology Normal Hypochromasia 1+ Anisocytosis 1+ Sodium Level 134 MMOL/L (136-145) L Potassium Level 4.7 MMOL/L (3.5-5.1) Chloride Level 97 MMOL/L (98-107) L Carbon Dioxide Level 26 MMOL/L (21-32) Anion Gap 11 mmol/L (5-15) Blood Urea Nitrogen 86 mg/dL (7-18) H Creatinine 5.3 MG/DL (0.55-1.30) H Estimat Glomerular Filtration Rate mL/min (>60) Glucose Level 165 MG/DL (74-106) H Lactic Acid Level 1.00 mmol/L (0.4-2.0) Uric Acid 7.1 MG/DL (2.6-7.2) Calcium Level 8.5 MG/DL (8.5-10.1) Phosphorus Level 8.6 MG/DL (2.5-4.9) H Magnesium Level 2.0 MG/DL (1.8-2.4) Total Bilirubin 0.5 MG/DL (0.2-1.0) Gamma Glutamyl Transpeptidase 83 U/L (5-85) Aspartate Amino Transf (AST/SGOT) 57 U/L (15-37) H Alanine Aminotransferase (ALT/SGPT) 24 U/L (12-78) Alkaline Phosphatase 157 U/L (46-116) H Troponin I 0.050 ng/mL (0.000-0.056) Pro-B-Type Natriuretic Peptide > 54061 pg/mL (0-125) H Total Protein 5.6 G/DL (6.4-8.2) L Albumin 1.8 G/DL (3.4-5.0) L Globulin 3.8 g/dL Albumin/Globulin Ratio 0.5 (1.0-2.7) L Arterial Blood pH 7.448 (7.350-7.450) Arterial Blood Partial Pressure CO2 34.6 mmHg (35.0-45.0) L Arterial Blood Partial Pressure O2 85.4 mmHg (75.0-100.0) Arterial Blood HCO3 23.4 mmol/L (22.0-26.0) Arterial Blood Oxygen Saturation 95.4 % (95-100) Arterial Blood Base Excess -0.3 (-2-2) Luiz Test Positive Serina Wang DO May 19, 2018 19:07
--- NOTE | 2018-05-19 19:15 | NUR ---
HAND-OFF: Report given to MINGO Shetty. VSS and patient is not in any acute distress.
--- NOTE | 2018-05-19 19:33 | NUR ---
RESPIRATORY NOTE: Received pt. on 840 vent. Vent settings are: A/C rate of 16, Vt 500, FI02 35%, PEEP +5. No respiratory distress noted, pt. Sp02 @ 100%. Ambu bag @ bs. Vent plugged on red outlet. Will continue to monitor pt.
[2018-05-19] MEDS: Dyna-Hex 2% Top Sol 2oz TOPIC SCH (20:00)
[2018-05-19] MEDS ORDERED: Amiodarone 900 MG in D5W 500ml 482 ML IV SCH (21:00)
--- NOTE | 2018-05-19 22:00 | NUR ---
NURSE NOTES: Patient repositioned, Vitals remains stable no acute distress at this time, will continue to monitor.
--- NOTE | 2018-05-19 22:12 | Emergency Room Report ---
History of Present Illness General Chief Complaint: Chest Pain Source: Patient, Medical Record Present Illness Allergies: Coded Allergies: No Known Allergies (Unverified , 11/12/12) Nursing Documentation-[facility] Past Medical History: No History, Except For Hx Cardiac Problems: Yes - unknown cardiac Hx Hypertension: Yes Hx Diabetes: Yes Hx Cancer: No Hx Gastrointestinal Problems: Yes - kidney stones, prostate Hx Dialysis: Yes - leftb arm shunt History Of Psychiatric Problem: Yes Hx Neurological Problems: No Physical Exam Vital Signs Date Time Temp Pulse Resp B/P (MAP) Pulse Ox O2 Delivery O2 Flow Rate FiO2 05/15/18 07:00 130 20 130/40 (70) 100 05/15/18 08:00 98.8 05/15/18 08:00 Nasal Cannula 3.0 Nasal Cannula 2.0 05/15/18 19:55 32 Procedures Critical Care Time Critical Care Time i. I feel this is a highly complex case requiring extensive working including EKG/Rhythm strip, Xray/CT/US, Blood/urine lab work, repeat exams while in ED, and administration of strong opiates/narcotics for pain control, admission to hospital or close patient follow up. Total time: 30 min bedside evaluation and treatment excludes procedures (EKG). Reason for critical care: dislodged ET tube. hypoxia. poor tidal volumes Possible complications: hypotension, hypertension, NV, shock, arrhythmias, metabolic acidosis, end organ damage, respiratory failure. Interventions: intubation Course: Patient presenting with poor tidal volumes, hypoxic. On exam patient's ET tube was dislodged. Etomidate given. I reintubated the patient with equal breath sounds bilaterally. O2 sats improved. Patient not in distress Consultations: nursing staff, EMS, family Performed by: Dr Coles Tolerated well condition = critical j. because of unstable vital signs this patient had a condition that could potentially threaten life or limb. I feel this is a critical patient who required my full attention while patient was considered critical. Total Critical Care Time excluding procedures was greater than 35 minutes Intubation Intubation : Consent: Emergent Intubation Method: orotracheal Tube Size (cm): 7.5 Medications: Etomidate Breath Sounds after Intubation: equal Intubation Complications: no complications Post Intubation Xray: Yes Attempts: One Patient Tolerated: Well Complications: None Medical Decision Making Diagnostic Impression: Primary Impression: ACS (acute coronary syndrome) Additional Impressions: Hyponatremia ESRD (end stage renal disease) on dialysis ER Course I was called to the ICU to evaluate this patient. Patient intubated. Poor tidal volumes. O2 sats low. During my assessment the ET tube was dislodged. I reintubated the patient. Equal breath sounds bilaterally. Chest x-ray confirms ET tube placement. O2 sats improved. Last Vital Signs Date Time Temp Pulse Resp B/P (MAP) Pulse Ox O2 Delivery O2 Flow Rate FiO2 05/19/18 21:51 72 19 35 05/19/18 21:00 154/44 (80) 100 05/19/18 20:00 97.8 05/19/18 20:00 Mechanical Ventilator Mechanical Ventilator 05/16/18 16:00 3.0 3.0 Status: improved Disposition: ADMITTED INPATIENT Condition: Critical Referrals: NOT CHOSEN WILFRIDO/,REFERRING (PCP) Tyler Coles MD May 19, 2018 22:12
[2018-05-20] VITALS (41 sets, daily range): BP systolic 81–179; BP diastolic 15–83
--- NOTE | 2018-05-20 | NUR ---
NURSE NOTES: Repositioned patient and provided oral care, remains on Amio gtt at 0.5m/hr. NAD, Bowel movement.
--- NOTE | 2018-05-20 02:00 | NUR ---
NURSE NOTES: Vitals stable, repositioned, NAD
--- NOTE | 2018-05-20 04:00 | NUR ---
NURSE NOTES: Repositioned, vitals stable, NAD, will continue to monitor.
--- NOTE | 2018-05-20 05:00 | NUR ---
NURSE NOTES: Insulin still on hold. Glucose 63, 25ml D50% given. Dopamine gtt at 8mcg Addendum: 05/20/18 at 0534 by CHARISSA CHAKRABORTY RN WRONG PATIENT ENTRY, IGNORE THIS NOTE
--- NOTE | 2018-05-20 06:00 | NUR ---
NURSE NOTES: Repositioned patients, patient cleaned, suctioned. NAD, Remains in SR. IV lines remain patient.
[2018-05-20] MEDS: Piperacillin/Tazobactam 2.25 GM in D5W 55 ML IVPB SCH ×3 (06:09→20:52)
[2018-05-20 06:25] LABS: HEMATOCRIT 26.2 % (42.0-52.0); HEMOGLOBIN 8.5 G/DL (14.2-18.0); MEAN CORPUSCULAR VOLUME 94 FL (80-99); PLATELET COUNT 331 K/UL (150-450); RED BLOOD COUNT 2.79 M/UL (4.70-6.10); RED CELL DISTRIBUTION WIDTH 15.2 % (11.6-14.8); WHITE BLOOD COUNT 16.8 K/UL (4.8-10.8)
[2018-05-20] MEDS: NovoLOG Insulin Flexpen SUBQ SCH ×4 (06:38→20:52)
[2018-05-20 07:18] LABS: ALANINE AMINOTRANSFERASE 19 U/L (12-78); ALBUMIN 1.7 G/DL (3.4-5.0); ALBUMIN/GLOBULIN RATIO 0.5 (1.0-2.7); ALKALINE PHOSPHATASE 134 U/L (46-116); ANION GAP 18 mmol/L (5-15); ASPARTATE AMINO TRANSFERASE 40 U/L (15-37); BILIRUBIN,TOTAL 0.5 MG/DL (0.2-1.0); BLOOD UREA NITROGEN 120 mg/dL (7-18); CALCIUM 8.1 MG/DL (8.5-10.1); CARBON DIOXIDE 22 MMOL/L (21-32); CHLORIDE 97 MMOL/L (98-107); CREATININE 6.9 MG/DL (0.55-1.30); PHOSPHORUS 9.5 MG/DL (2.5-4.9); POTASSIUM 4.7 MMOL/L (3.5-5.1); SODIUM 137 MMOL/L (136-145)
--- NOTE | 2018-05-20 08:30 | NUR ---
NURSE NOTES: Dr. Head updated on patient condition at the bedside, explained of consults plan regarding patient, no verbal orders given at this time, will continue to monitor.
[2018-05-20] MEDS: Sertraline 50mg tab ORAL SCH (09:00)
--- NOTE | 2018-05-20 09:16 | Cardiac Electrophysiology PN ---
Assessment/Plan Assessment/Plan 1. Atrial fib/flutter with RVR . On Amio drip and off po Dig as still NPO Dig level 2.5 on 05/16/18. Converted to SR. 2. Chest pain. No SD. EKG showed old inferior and anterior wall SD, but no ischemia. ECHO with normal LV function 3. End-stage renal disease, on hemodialysis per Dr. Arroyo. 4. S/P septic shock, off levophed 5. History of kidney stones. 6. History of psychiatric problems, dementia. 7. Hx of lap matthew. S/P SB resection 05/15/18 with drain 8. Respiratory failure, intubated on the vent. Failed extubation yesterday and was reintubated. SAW RN Subjective Subjective In ICU on Amiodarone 0.5 mg and off Levophed drip DCed. Remained in SR. Was extubated and reintubated again yesterday. HD today at 11. Still NPO Objective Last 24 Hour Vital Signs Date Time Temp Pulse Resp B/P (MAP) Pulse Ox O2 Delivery O2 Flow Rate FiO2 05/20/18 08:43 98 05/20/18 08:43 72 31 35 05/20/18 07:00 75 18 136/43 (74) 100 05/20/18 06:42 69 20 35 05/20/18 06:00 78 18 125/59 (81) 100 05/20/18 05:13 67 21 35 05/20/18 05:00 77 21 168/36 (80) 100 05/20/18 04:00 99.1 65 19 112/22 (52) 100 05/20/18 04:00 Mechanical Ventilator Mechanical Ventilator 05/20/18 04:00 35 05/20/18 03:27 74 21 35 05/20/18 03:00 78 23 165/15 (65) 97 05/20/18 02:00 81 23 175/44 (87) 97 05/20/18 01:14 67 20 35 05/20/18 01:00 68 23 88/73 (78) 100 05/20/18 00:00 99.4 68 21 99/61 (74) 100 05/20/18 00:00 35 05/20/18 00:00 Mechanical Ventilator Mechanical Ventilator 05/19/18 23:34 67 20 35 05/19/18 23:00 80 22 157/16 (63) 100 05/19/18 22:00 70 18 121/25 (57) 100 05/19/18 21:51 72 19 35 05/19/18 21:00 81 18 154/44 (80) 100 05/19/18 20:00 97.8 81 22 182/38 (86) 100 05/19/18 20:00 35 05/19/18 20:00 Mechanical Ventilator Mechanical Ventilator 05/19/18 20:00 81 05/19/18 19:35 71 19 35 05/19/18 19:00 65 20 101/14 (43) 100 05/19/18 18:00 68 20 117/30 (59) 100 05/19/18 17:00 84 27 83/10 (34) 100 05/19/18 16:41 73 27 35 05/19/18 16:00 Mechanical Ventilator Mechanical Ventilator 05/19/18 16:00 35 05/19/18 16:00 98.3 84 27 99/16 (43) 96 05/19/18 15:00 110 27 130/37 (68) 98 05/19/18 14:51 74 26 35 05/19/18 14:00 76 27 90/21 (44) 98 05/19/18 13:00 75 31 102/33 (56) 98 05/19/18 12:44 75 22 35 05/19/18 12:30 75 31 111/13 (45) 98 05/19/18 12:00 98.4 84 27 73/14 (33) 98 05/19/18 12:00 35 05/19/18 12:00 Mechanical Ventilator Mechanical Ventilator 05/19/18 12:00 20 Mechanical Ventilator 35 05/19/18 11:30 84 27 79/18 (38) 98 05/19/18 11:05 91 22 35 05/19/18 11:00 76 27 82/31 (48) 98 05/19/18 11:00 18 Mechanical Ventilator 35 05/19/18 10:30 76 27 165/34 (77) 98 05/19/18 10:00 75 21 162/35 (77) 98 05/19/18 10:00 22 Mechanical Ventilator 35 05/19/18 10:00 100 05/19/18 09:59 123 25 35 05/19/18 09:30 87 22 177/27 (77) 98 05/19/18 09:25 94 33 35 Intake and Output 05/19/18 05/20/18 18:59 06:59 Intake Total 336.59 ml 260.94 ml Output Total 0 ml 0 ml Balance 336.59 ml 260.94 ml IV Total 336.59 ml 260.94 ml Output Urine Total 0 ml 0 ml # Bowel Movements 2 Laboratory Tests Test 05/20/18 05:05 White Blood Count 16.8 K/UL (4.8-10.8) H Red Blood Count 2.79 M/UL (4.70-6.10) L Hemoglobin 8.5 G/DL (14.2-18.0) L Hematocrit 26.2 % (42.0-52.0) L Mean Corpuscular Volume 94 FL (80-99) Mean Corpuscular Hemoglobin 30.4 PG (27.0-31.0) Mean Corpuscular Hemoglobin Concent 32.4 G/DL (32.0-36.0) Red Cell Distribution Width 15.2 % (11.6-14.8) H Platelet Count 331 K/UL (150-450) Mean Platelet Volume 7.4 FL (6.5-10.1) Neutrophils (%) (Auto) % (45.0-75.0) Lymphocytes (%) (Auto) % (20.0-45.0) Monocytes (%) (Auto) % (1.0-10.0) Eosinophils (%) (Auto) % (0.0-3.0) Basophils (%) (Auto) % (0.0-2.0) Differential Total Cells Counted 100 Neutrophils % (Manual) 86 % (45-75) H Lymphocytes % (Manual) 4 % (20-45) L Monocytes % (Manual) 8 % (1-10) Eosinophils % (Manual) 2 % (0-3) Basophils % (Manual) 0 % (0-2) Band Neutrophils 0 % (0-8) Platelet Estimate Adequate Platelet Morphology Normal Hypochromasia 1+ Anisocytosis 1+ Sodium Level 137 MMOL/L (136-145) Potassium Level 4.7 MMOL/L (3.5-5.1) Chloride Level 97 MMOL/L (98-107) L Carbon Dioxide Level 22 MMOL/L (21-32) Anion Gap 18 mmol/L (5-15) H Blood Urea Nitrogen 120 mg/dL (7-18) H Creatinine 6.9 MG/DL (0.55-1.30) H Estimat Glomerular Filtration Rate mL/min (>60) Glucose Level 153 MG/DL (74-106) H Uric Acid 9.8 MG/DL (2.6-7.2) H Calcium Level 8.1 MG/DL (8.5-10.1) L Phosphorus Level 9.5 MG/DL (2.5-4.9) H Magnesium Level 2.1 MG/DL (1.8-2.4) Total Bilirubin 0.5 MG/DL (0.2-1.0) Aspartate Amino Transf (AST/SGOT) 40 U/L (15-37) H Alanine Aminotransferase (ALT/SGPT) 19 U/L (12-78) Alkaline Phosphatase 134 U/L (46-116) H Troponin I 0.038 ng/mL (0.000-0.056) C-Reactive Protein, Quantitative 10.6 mg/dL (0.00-0.90) H Pro-B-Type Natriuretic Peptide > 85028 pg/mL (0-125) H Total Protein 5.2 G/DL (6.4-8.2) L Albumin 1.7 G/DL (3.4-5.0) L Globulin 3.5 g/dL Albumin/Globulin Ratio 0.5 (1.0-2.7) L Digoxin Level 1.9 NG/ML (0.5-2.0) Objective HEENT: PERRL/EOMI, Orally intubated Cardiovascular: irregular, tachycardia Respiratory/Chest: chest wall non-tender, lungs clear, normal breath sounds, no respiratory distress Abdomen: Post op.with one VELVET drain Extremities: No edema Right groin dialysis catheter Everett Stephenson MD May 20, 2018 09:16
--- NOTE | 2018-05-20 09:17 | NUR ---
REHAB MED PT NOTE PATIENT NOT APPROPRIATE FOR SKILLED PT SERVICES AT THIS TIME, DC PT ORDER. NO SKILLED NEEDS.
--- NOTE | 2018-05-20 09:28 | General Progress Note ---
Assessment/Plan Assessment/Plan (1) Abdominal pain (2) S/p Lap Cholecystectomy (3) Encephalopathy (4) ESRD on hemodialysis (5) S/p emergent exploratory laboratory small bowel resection omentectomy due to small bowel perforation in distal ileum Patient to be continued on Dilaudid. Parameters to be continued. D/w Dr. Busby and he concurred. Subjective Date patient seen: May 20, 2018 Time patient seen: 09:15 - am ROS Limited/Unobtainable: Yes Allergies: Coded Allergies: No Known Allergies (Unverified , 11/12/12) Subjective Patient continues to be intubated no signs of pain at this time. He is on Ativan due to anxiousness. Fentanyl drip was stopped. Has gotten one dose of Dilaudid in the last 24hrs. Objective Last 24 Hour Vital Signs Date Time Temp Pulse Resp B/P (MAP) Pulse Ox O2 Delivery O2 Flow Rate FiO2 05/20/18 08:43 98 05/20/18 08:43 72 31 35 05/20/18 07:00 75 18 136/43 (74) 100 05/20/18 06:42 69 20 35 05/20/18 06:00 78 18 125/59 (81) 100 05/20/18 05:13 67 21 35 05/20/18 05:00 77 21 168/36 (80) 100 05/20/18 04:00 99.1 65 19 112/22 (52) 100 05/20/18 04:00 Mechanical Ventilator Mechanical Ventilator 05/20/18 04:00 35 05/20/18 03:27 74 21 35 05/20/18 03:00 78 23 165/15 (65) 97 05/20/18 02:00 81 23 175/44 (87) 97 05/20/18 01:14 67 20 35 05/20/18 01:00 68 23 88/73 (78) 100 05/20/18 00:00 99.4 68 21 99/61 (74) 100 05/20/18 00:00 35 05/20/18 00:00 Mechanical Ventilator Mechanical Ventilator 05/19/18 23:34 67 20 35 05/19/18 23:00 80 22 157/16 (63) 100 05/19/18 22:00 70 18 121/25 (57) 100 05/19/18 21:51 72 19 35 05/19/18 21:00 81 18 154/44 (80) 100 05/19/18 20:00 97.8 81 22 182/38 (86) 100 05/19/18 20:00 35 05/19/18 20:00 Mechanical Ventilator Mechanical Ventilator 05/19/18 20:00 81 05/19/18 19:35 71 19 35 05/19/18 19:00 65 20 101/14 (43) 100 05/19/18 18:00 68 20 117/30 (59) 100 05/19/18 17:00 84 27 83/10 (34) 100 05/19/18 16:41 73 27 35 05/19/18 16:00 Mechanical Ventilator Mechanical Ventilator 05/19/18 16:00 35 05/19/18 16:00 98.3 84 27 99/16 (43) 96 05/19/18 15:00 110 27 130/37 (68) 98 05/19/18 14:51 74 26 35 05/19/18 14:00 76 27 90/21 (44) 98 05/19/18 13:00 75 31 102/33 (56) 98 05/19/18 12:44 75 22 35 05/19/18 12:30 75 31 111/13 (45) 98 05/19/18 12:00 98.4 84 27 73/14 (33) 98 05/19/18 12:00 35 05/19/18 12:00 Mechanical Ventilator Mechanical Ventilator 05/19/18 12:00 20 Mechanical Ventilator 35 05/19/18 11:30 84 27 79/18 (38) 98 05/19/18 11:05 91 22 35 05/19/18 11:00 76 27 82/31 (48) 98 05/19/18 11:00 18 Mechanical Ventilator 35 05/19/18 10:30 76 27 165/34 (77) 98 05/19/18 10:00 75 21 162/35 (77) 98 05/19/18 10:00 22 Mechanical Ventilator 35 05/19/18 10:00 100 05/19/18 09:59 123 25 35 05/19/18 09:30 87 22 177/27 (77) 98 Intake and Output 05/19/18 05/20/18 18:59 06:59 Intake Total 336.59 ml 260.94 ml Output Total 0 ml 0 ml Balance 336.59 ml 260.94 ml IV Total 336.59 ml 260.94 ml Output Urine Total 0 ml 0 ml # Bowel Movements 2 Laboratory Tests 05/20/18 05:05: White Blood Count 16.8H, Red Blood Count 2.79L, Hemoglobin 8.5L, Hematocrit 26.2L, Mean Corpuscular Volume 94, Mean Corpuscular Hemoglobin 30.4, Mean Corpuscular Hemoglobin Concent 32.4, Red Cell Distribution Width 15.2H, Platelet Count 331, Mean Platelet Volume 7.4, Neutrophils (%) (Auto) , Lymphocytes (%) (Auto) , Monocytes (%) (Auto) , Eosinophils (%) (Auto) , Basophils (%) (Auto) , Differential Total Cells Counted 100, Neutrophils % ( Manual) 86H, Lymphocytes % (Manual) 4L, Monocytes % (Manual) 8, Eosinophils % ( Manual) 2, Basophils % (Manual) 0, Band Neutrophils 0, Platelet Estimate Adequate, Platelet Morphology Normal, Hypochromasia 1+, Anisocytosis 1+, Sodium Level 137, Potassium Level 4.7, Chloride Level 97L, Carbon Dioxide Level 22, Anion Gap 18H, Blood Urea Nitrogen 120H, Creatinine 6.9H, Estimat Glomerular Filtration Rate , Glucose Level 153H, Uric Acid 9.8H, Calcium Level 8.1L, Phosphorus Level 9.5H, Magnesium Level 2.1, Total Bilirubin 0.5, Aspartate Amino Transf (AST/SGOT) 40H, Alanine Aminotransferase (ALT/SGPT) 19, Alkaline Phosphatase 134H, Troponin I 0.038, C-Reactive Protein, Quantitative 10.6H, Pro- B-Type Natriuretic Peptide > 85852A, Total Protein 5.2L, Albumin 1.7L, Globulin 3.5, Albumin/Globulin Ratio 0.5L, Digoxin Level 1.9 Height (Feet): 5 Height (Inches): 4.00 Weight (Pounds): 193 Objective GENERAL: Intubated. LUNGS: Decreased breath sounds bilaterally. HEART: S1 S2 Regular. ABDOMEN: Tenderness to palpation. Bandages and drain noted. EXTREMITIES: No cyanosis. No clubbing. Sid Holland May 20, 2018 09:28
[2018-05-20] MEDS ORDERED: HYDROmorphone 1mg/ml Carpuject IVP PRN (09:45)
[2018-05-20] MEDS: Pantoprazole Inj IVP SCH ×2 (09:49→20:52)
--- NOTE | 2018-05-20 10:40 | Diagnostic Imaging Report ---
Indication: Post intubation Technique: One view of the chest Comparison: 05/19/2018 Findings: Again demonstrated is atelectasis and possibly consolidation of the right lung base. There may be a small amount of pleural fluid on the right. Endotracheal tube there appears to be a new endotracheal tube, projecting in good position. Impression: Satisfactory endotracheal intubation Other stable findings as described This agrees with the preliminary interpretation provided overnight by [facility] teleradiology service.
--- NOTE | 2018-05-20 10:47 | NUR ---
RD ASSESSMENT & RECOMMENDATIONS SEE CARE ACTIVITY FOR COMPLETE ASSESSMENT DAILY ESTIMATED NEEDS: Needs based on ESRD on HD, wound, post op/ 73.7kg abw 25-30 kcals/kg 4888-6021 total kcals 1.25-1.8 g protein/kg 92-147 g total protein 15-20 mL/kg 2720-5650 total fluid mLs NUTRITION DIAGNOSIS: 1) Increased kcal and protein needs r/t renal dysfunction, wound healing, surgery as evidenced by pt with ESRD on HD, partial thickness wound @ sacral cleft and stage 1 @ rt heel, s/p small bowel resection. 2) Altered GI function R/T recent lap matthew w/ possible complications as evidenced by pt admitted w/ c/o abdominal pain, s/p ex lap w/ finding of small bowel perforation in distal ileum, s/p small bowel resection w/ drain, NPO at this time, day 8. 3) Altered nutrition related lab values R/T ESRD, on steroidal med, DM dx, clinical condition, as evidenced by low Na (129-> wnl), elev K (5.9-> wnl), elev phos (9.5), elev BNP (>00853), elev BGs (317 250 252- now improved), low BP, off pressors at this time. CURRENT DIET: NPO PO DIET RECOMMENDATIONS: Diet per surgeon ENTERAL NUTRITION RECOMMENDATIONS: Ensure Clear 1 tetra bebo 5 times daily + Prosource 5 packs daily to provide TOTAL: 1410ml, 1400 kcal, 95g prot - If pt unable to wean but appropriate for clears, rec to obtain GI access, initiate trial feeds of Ensure Clear and Prosource. - Rec Bolus feeds of Ensure Clear 1 tetra bebo / 5 times daily PLUS added Prosource 5 packs daily - At goal, Ensure Clear + Prosource to meet 76% est kcal and 100% est prot needs to not est fluids needs d/t HD. - NPO day 8 today, at high risk for refeeding. - HOB over 30 degrees + Flushes per MD. PARENTERAL NUTRITION RECOMMENDATIONS: D/AA Rate: 49 IL Rate: 8 Total Rate: 57 Volume: 1368 % Dextrose: 20 % AA: 6.5 Energy (kcals/kg): 1490 Protein (g/kg protein): 76 Nonprotein KCALS: 1184 GIR (mg CHO/kg/min): 2.2 % Fat KCALS: 25.7 NCP: N Ratio: 97 TPN Comment: * W/ hemodyamic stability, rec TPN :s/p small bowel resection on 05/15, NPO/no oral intake x 7 days today, currently orally intubated post op. * D20% AA 6.5% @ 49ml/hr + IL20% @8ml/hr -> all 3:1, total of 57ml/hr. * Initiate TPN @ 27ml/hr x 6 hrs, advance 10ml q 4-6 hrs as tolerated to goal rate. * TPN @ goal will meet 81% est kcal and 83% est prot needs, GIR=2.2 * Consider insulin in TPN. ADDITIONAL RECOMMENDATIONS: 1) REcalibrate bed scale for accurate CBW 2) RECOMMEND TPN W/ HEMODYNAMIC STABILITY- SEE ABOVE REC -> npo/no oral intake x 8 days, s/p bowel resection 3) W/ TPN: monitor lytes, BGs, LFTs daily 4) Consider insulin in TPN: h/o DM, elev BGs, on steroidal med .
--- NOTE | 2018-05-20 10:59 | NUR ---
CASE MANAGEMENT: REVIEW SI: ESRD ON HD . ACS . A-FIB RIGHT FEMORAL TEMPORARY HEMODIALYSIS CATHETER INSERTION 05/13 T 98.3 HR 77 RR 27 BP 172/24 SAT 98% MECH VENT FIO2 35 WBC 16.8 H/H 8.5/26.2 BUN 120 CR 6.9 IS: AMIODARONE IV Q24HR FENTANYL IV Q24HR VERSED IV Q24HR FLAGYL IV Q8HR SOLU CORTEF IV Q8HR MIDODRINE PO TID CEFTRIAXONE IV Q24HR HD PRN ICU STATUS DCP: PATIENT IS FROM HOME
--- NOTE | 2018-05-20 11:00 | NUR ---
NURSE NOTES: Hemodialysis nurse at the bedside with patient, and will access tight femoral Donis, changed to previous vent setting of AC16, TV: 500, FIO2 35% with peep of 5, he remains saturating at 100% with no distress noted and RR of 22-28, patient is getting amiodarone at 16.66ml. dr. Irby ordered to have digoxin 0.125mg once IVP with and have a dig level. ordered to remains on Amiodarone until able to be placed on PO or administer through NG-tube,will continue plan of care.
--- NOTE | 2018-05-20 11:01 | Nephrology Progress Note ---
Assessment/Plan Problem List: (1) ESRD (end stage renal disease) on dialysis (2) Perforated bowel (3) Hyponatremia (4) Major depression (5) Nausea & vomiting (6) H/O abdominal surgery Assessment: recent Assessment recent abdominal surgery hemodynamically stablized over night Presents with CHF and Low Na ESRD ACS DM HTN h/o GI bleed Depression Plan Dialysed 05/17 and next DC Steroids change Midodrine to PRN weaning as possible insulin for high BS hold dig , check levels, resume as needed no NGT ,On Vent Psych started Zoloft PO ? Has abd surgery 05/15 Perforated bowel graft clotted , has a femoral felice right HOLD ALL MIND ALTERING MEDS - DC all po meds FLUID CHALLENGE pressors as needed BP HR Pain control discussed with RN and Dr Jones IV protonix Subjective ROS Limited/Unobtainable: Yes Objective Objective Last 24 Hour Vital Signs Date Time Temp Pulse Resp B/P (MAP) Pulse Ox O2 Delivery O2 Flow Rate FiO2 05/20/18 10:30 76 24 117/57 (77) 99 05/20/18 10:00 76 23 109/60 (76) 99 05/20/18 09:30 76 24 117/56 (76) 98 05/20/18 09:00 77 23 111/56 (74) 98 05/20/18 08:43 98 05/20/18 08:43 72 31 35 05/20/18 08:30 79 27 123/64 (83) 98 05/20/18 08:00 35 05/20/18 08:00 78 05/20/18 08:00 Mechanical Ventilator Mechanical Ventilator 05/20/18 08:00 172/24 05/20/18 08:00 98.3 77 22 172/24 (73) 99 05/20/18 07:30 79 23 179/20 (72) 98 05/20/18 07:00 75 18 136/43 (74) 100 05/20/18 06:42 69 20 35 05/20/18 06:00 78 18 125/59 (81) 100 05/20/18 05:13 67 21 35 05/20/18 05:00 77 21 168/36 (80) 100 05/20/18 04:00 99.1 65 19 112/22 (52) 100 05/20/18 04:00 Mechanical Ventilator Mechanical Ventilator 05/20/18 04:00 35 05/20/18 03:27 74 21 35 05/20/18 03:00 78 23 165/15 (65) 97 05/20/18 02:00 81 23 175/44 (87) 97 05/20/18 01:14 67 20 35 05/20/18 01:00 68 23 88/73 (78) 100 05/20/18 00:00 99.4 68 21 99/61 (74) 100 05/20/18 00:00 35 05/20/18 00:00 Mechanical Ventilator Mechanical Ventilator 05/19/18 23:34 67 20 35 05/19/18 23:00 80 22 157/16 (63) 100 05/19/18 22:00 70 18 121/25 (57) 100 05/19/18 21:51 72 19 35 05/19/18 21:00 81 18 154/44 (80) 100 05/19/18 20:00 97.8 81 22 182/38 (86) 100 05/19/18 20:00 35 05/19/18 20:00 Mechanical Ventilator Mechanical Ventilator 05/19/18 20:00 81 05/19/18 19:35 71 19 35 05/19/18 19:00 65 20 101/14 (43) 100 05/19/18 18:00 68 20 117/30 (59) 100 05/19/18 17:00 84 27 83/10 (34) 100 05/19/18 16:41 73 27 35 05/19/18 16:00 Mechanical Ventilator Mechanical Ventilator 05/19/18 16:00 35 05/19/18 16:00 98.3 84 27 99/16 (43) 96 05/19/18 15:00 110 27 130/37 (68) 98 05/19/18 14:51 74 26 35 05/19/18 14:00 76 27 90/21 (44) 98 05/19/18 13:00 75 31 102/33 (56) 98 05/19/18 12:44 75 22 35 05/19/18 12:30 75 31 111/13 (45) 98 05/19/18 12:00 98.4 84 27 73/14 (33) 98 05/19/18 12:00 35 05/19/18 12:00 Mechanical Ventilator Mechanical Ventilator 05/19/18 12:00 20 Mechanical Ventilator 35 05/19/18 11:30 84 27 79/18 (38) 98 05/19/18 11:05 91 22 35 05/19/18 11:00 76 27 82/31 (48) 98 05/19/18 11:00 18 Mechanical Ventilator 35 Intake and Output 05/19/18 05/20/18 18:59 06:59 Intake Total 336.59 ml 260.94 ml Output Total 0 ml 0 ml Balance 336.59 ml 260.94 ml IV Total 336.59 ml 260.94 ml Output Urine Total 0 ml 0 ml # Bowel Movements 2 Laboratory Tests 05/20/18 05:05: White Blood Count 16.8H, Red Blood Count 2.79L, Hemoglobin 8.5L, Hematocrit 26.2L, Mean Corpuscular Volume 94, Mean Corpuscular Hemoglobin 30.4, Mean Corpuscular Hemoglobin Concent 32.4, Red Cell Distribution Width 15.2H, Platelet Count 331, Mean Platelet Volume 7.4, Neutrophils (%) (Auto) , Lymphocytes (%) (Auto) , Monocytes (%) (Auto) , Eosinophils (%) (Auto) , Basophils (%) (Auto) , Differential Total Cells Counted 100, Neutrophils % ( Manual) 86H, Lymphocytes % (Manual) 4L, Monocytes % (Manual) 8, Eosinophils % ( Manual) 2, Basophils % (Manual) 0, Band Neutrophils 0, Platelet Estimate Adequate, Platelet Morphology Normal, Hypochromasia 1+, Anisocytosis 1+, Sodium Level 137, Potassium Level 4.7, Chloride Level 97L, Carbon Dioxide Level 22, Anion Gap 18H, Blood Urea Nitrogen 120H, Creatinine 6.9H, Estimat Glomerular Filtration Rate , Glucose Level 153H, Uric Acid 9.8H, Calcium Level 8.1L, Phosphorus Level 9.5H, Magnesium Level 2.1, Total Bilirubin 0.5, Aspartate Amino Transf (AST/SGOT) 40H, Alanine Aminotransferase (ALT/SGPT) 19, Alkaline Phosphatase 134H, Troponin I 0.038, C-Reactive Protein, Quantitative 10.6H, Pro- B-Type Natriuretic Peptide > 22230Y, Total Protein 5.2L, Albumin 1.7L, Globulin 3.5, Albumin/Globulin Ratio 0.5L, Digoxin Level 1.9 Height (Feet): 5 Height (Inches): 4.00 Weight (Pounds): 189 General Appearance: no apparent distress EENT: other - vented Cardiovascular: normal rate Respiratory/Chest: decreased breath sounds Abdomen: distended Objective no change Maurilio Arroyo MD May 20, 2018 11:01
[2018-05-20] MEDS ORDERED: Digoxin 0.5mg/2ml Inj IVP SCH (11:15)
--- NOTE | 2018-05-20 11:29 | Pulmonology Progress Note ---
Assessment/Plan Assessment/Plan Pulmonary Progress Note Critical Care - Asmt/Plan Assessment/Plan: (1) Shock (2) Hypoxemia (3) Elevated d-dimer with negative CTA (4) Hypotension (5) Atrial fibrillation (6) ESRDon dialysis (7) ACS (8) Sacral decubitus ulcer, stage III (9) S/P cholecystectomy (10) Serratia sepsis (11) S/P exploratory laparotomy (12) Perforated viscus Assessment/Plan: -Post-op recs and wound care -Pain control/supportive care -Continue ventilatory support/settings reviewed and weaning -Titrate down FiO2 to keep SaO2 > 90%, continue PEEP 5 -HD per renal MVWF with extra session 05/18 -Titrate NE to keep MAP > 60 ABG better -rate control amio drip for now -Heparin held, resume when ok with surgery -Monitor for bleeding -Abx per ID, F/U Cx's -Decrease HC to 12.5 TID and taper -FC FU CXR post reintubation, ETT appropriate NPO Tf when cleared by surgery greater than 35 minhuts of cc time spent with the patient case dw nursing and consultants, pressors for MAP less than 65 mmhg. remains critically ill Critical Care - Objective Vital Signs Noted Subjective: sedated at this time ET tube exchanged today due to cuff leak did not wean today psych meds per psych no cp nv or bleeding no fever noted not getting oob NPO CXR: new cxr pending post reintubation ET-Tube: 7.5 ET Position: 22 Labs: Current Medications Medications (Trade) Dose Ordered Sig/Min Route PRN Reason Start Time Stop Time Status Last Admin Dose Admin Acetaminophen (Tylenol) 650 mg Q4H PRN ORAL Mild Pain/Temp > 100.5 05/12/18 15:30 06/09/18 15:29 05/13/18 16:39 Amiodarone HCl 900 mg/Dextrose 500 ml @ 0 mls/hr Q24H IV 05/18/18 19:30 05/19/18 19:29 05/18/18 23:00 Chlorhexidine Gluconate (Tatyana-Hex 2%) 1 applic DAILY@2000 TOPIC 05/12/18 20:00 06/11/18 19:59 05/18/18 21:38 Dextrose (Dextrose 50%) 25 ml Q30M PRN IV Hypoglycemia 05/16/18 17:30 06/15/18 17:29 Dextrose (Dextrose 50%) 50 ml Q30M PRN IV Hypoglycemia 05/16/18 17:30 06/15/18 17:29 Fentanyl Citrate 1000 mcg/Sodium Chloride 100 ml @ 0 mls/hr Q24H IV 05/18/18 09:00 05/25/18 08:59 05/19/18 10:00 Haloperidol Lactate (Haldol) 5 mg Q6H PRN IM Agitation 05/19/18 16:00 06/18/18 15:59 Hydralazine HCl (Apresoline) 10 mg Q4H PRN IV bp over 160 syst 05/14/18 12:00 06/13/18 11:59 Hydromorphone HCl (Dilaudid) 1 mg Q2H PRN IVP Severe Pain (Pain Scale 7-10) 05/16/18 10:00 05/21/18 09:14 05/19/18 02:19 Insulin Aspart (NovoLOG) BEFORE MEALS AND HS SUBQ 05/16/18 21:00 06/15/18 20:59 05/19/18 17:30 Lorazepam (Ativan 2mg/ml 1ml) 1 mg Q6H PRN IV For Anxiety 05/19/18 08:15 05/26/18 08:14 05/19/18 11:38 Metoclopramide HCl (Reglan) 10 mg Q6H PRN IVP Nausea & Vomiting 05/16/18 06:15 06/10/18 15:29 Midodrine (Pro-Amatine) 2.5 mg THREE TIMES A DAY PRN ORAL for bp below 100 syst 05/19/18 10:15 06/14/18 12:59 Norepinephrine Bitartrate 4 mg/ Dextrose 250 ml @ 0 mls/hr Q24H IV 05/16/18 08:00 06/15/18 07:59 05/17/18 04:35 Ondansetron HCl (Zofran) 4 mg Q6H PRN IVP Nausea & Vomiting 05/15/18 23:30 06/14/18 23:29 Pantoprazole (Protonix) 40 mg EVERY 12 HOURS IVP 05/12/18 21:00 06/10/18 20:59 05/19/18 11:37 Piperacillin Sod/ Tazobactam Sod 2.25 gm/Dextrose 55 ml @ 110 mls/hr Q8HR IVPB 05/19/18 12:00 05/24/18 11:59 05/19/18 11:38 Sertraline HCl (Zoloft) 50 mg DAILY ORAL 05/20/18 09:00 06/19/18 08:59 Laboratory Tests Test 05/19/18 04:00 05/19/18 07:40 White Blood Count 18.2 K/UL (4.8-10.8) H Red Blood Count 2.95 M/UL (4.70-6.10) L Hemoglobin 8.9 G/DL (14.2-18.0) L Hematocrit 27.3 % (42.0-52.0) L Mean Corpuscular Volume 93 FL (80-99) Mean Corpuscular Hemoglobin 30.3 PG (27.0-31.0) Mean Corpuscular Hemoglobin Concent 32.7 G/DL (32.0-36.0) Red Cell Distribution Width 14.9 % (11.6-14.8) H Platelet Count 322 K/UL (150-450) Mean Platelet Volume 7.8 FL (6.5-10.1) Neutrophils (%) (Auto) % (45.0-75.0) Lymphocytes (%) (Auto) % (20.0-45.0) Monocytes (%) (Auto) % (1.0-10.0) Eosinophils (%) (Auto) % (0.0-3.0) Basophils (%) (Auto) % (0.0-2.0) Differential Total Cells Counted 100 Neutrophils % (Manual) 92 % (45-75) H Lymphocytes % (Manual) 4 % (20-45) L Monocytes % (Manual) 3 % (1-10) Eosinophils % (Manual) 0 % (0-3) Basophils % (Manual) 0 % (0-2) Band Neutrophils 1 % (0-8) Platelet Estimate Adequate Platelet Morphology Normal Hypochromasia 1+ Anisocytosis 1+ Sodium Level 134 MMOL/L (136-145) L Potassium Level 4.7 MMOL/L (3.5-5.1) Chloride Level 97 MMOL/L (98-107) L Carbon Dioxide Level 26 MMOL/L (21-32) Anion Gap 11 mmol/L (5-15) Blood Urea Nitrogen 86 mg/dL (7-18) H Creatinine 5.3 MG/DL (0.55-1.30) H Estimat Glomerular Filtration Rate mL/min (>60) Glucose Level 165 MG/DL (74-106) H Lactic Acid Level 1.00 mmol/L (0.4-2.0) Uric Acid 7.1 MG/DL (2.6-7.2) Calcium Level 8.5 MG/DL (8.5-10.1) Phosphorus Level 8.6 MG/DL (2.5-4.9) H Magnesium Level 2.0 MG/DL (1.8-2.4) Total Bilirubin 0.5 MG/DL (0.2-1.0) Gamma Glutamyl Transpeptidase 83 U/L (5-85) Aspartate Amino Transf (AST/SGOT) 57 U/L (15-37) H Alanine Aminotransferase (ALT/SGPT) 24 U/L (12-78) Alkaline Phosphatase 157 U/L (46-116) H Troponin I 0.050 ng/mL (0.000-0.056) Pro-B-Type Natriuretic Peptide > 99961 pg/mL (0-125) H Total Protein 5.6 G/DL (6.4-8.2) L Albumin 1.8 G/DL (3.4-5.0) L Globulin 3.8 g/dL Albumin/Globulin Ratio 0.5 (1.0-2.7) L Arterial Blood pH 7.448 (7.350-7.450) Arterial Blood Partial Pressure CO2 34.6 mmHg (35.0-45.0) L Arterial Blood Partial Pressure O2 85.4 mmHg (75.0-100.0) Arterial Blood HCO3 23.4 mmol/L (22.0-26.0) Arterial Blood Oxygen Saturation 95.4 % (95-100) Arterial Blood Base Excess -0.3 (-2-2) Luiz Test Positive Subjective ROS Limited/Unobtainable: No Allergies: Coded Allergies: No Known Allergies (Unverified , 11/12/12) Objective Last 24 Hour Vital Signs Date Time Temp Pulse Resp B/P (MAP) Pulse Ox O2 Delivery O2 Flow Rate FiO2 05/20/18 11:00 77 22 114/59 (77) 100 05/20/18 10:30 76 24 117/57 (77) 99 05/20/18 10:00 76 23 109/60 (76) 99 05/20/18 09:30 76 24 117/56 (76) 98 05/20/18 09:00 77 23 111/56 (74) 98 05/20/18 08:43 98 05/20/18 08:43 72 31 35 05/20/18 08:30 79 27 123/64 (83) 98 05/20/18 08:00 35 05/20/18 08:00 78 05/20/18 08:00 Mechanical Ventilator Mechanical Ventilator 05/20/18 08:00 172/24 05/20/18 08:00 98.3 77 22 172/24 (73) 99 05/20/18 07:30 79 23 179/20 (72) 98 05/20/18 07:00 75 18 136/43 (74) 100 05/20/18 06:42 69 20 35 05/20/18 06:00 78 18 125/59 (81) 100 05/20/18 05:13 67 21 35 05/20/18 05:00 77 21 168/36 (80) 100 05/20/18 04:00 99.1 65 19 112/22 (52) 100 05/20/18 04:00 Mechanical Ventilator Mechanical Ventilator 05/20/18 04:00 35 05/20/18 03:27 74 21 35 05/20/18 03:00 78 23 165/15 (65) 97 05/20/18 02:00 81 23 175/44 (87) 97 05/20/18 01:14 67 20 35 05/20/18 01:00 68 23 88/73 (78) 100 05/20/18 00:00 99.4 68 21 99/61 (74) 100 05/20/18 00:00 35 05/20/18 00:00 Mechanical Ventilator Mechanical Ventilator 05/19/18 23:34 67 20 35 05/19/18 23:00 80 22 157/16 (63) 100 05/19/18 22:00 70 18 121/25 (57) 100 05/19/18 21:51 72 19 35 05/19/18 21:00 81 18 154/44 (80) 100 05/19/18 20:00 97.8 81 22 182/38 (86) 100 05/19/18 20:00 35 05/19/18 20:00 Mechanical Ventilator Mechanical Ventilator 05/19/18 20:00 81 05/19/18 19:35 71 19 35 05/19/18 19:00 65 20 101/14 (43) 100 05/19/18 18:00 68 20 117/30 (59) 100 05/19/18 17:00 84 27 83/10 (34) 100 05/19/18 16:41 73 27 35 05/19/18 16:00 Mechanical Ventilator Mechanical Ventilator 05/19/18 16:00 35 05/19/18 16:00 98.3 84 27 99/16 (43) 96 05/19/18 15:00 110 27 130/37 (68) 98 05/19/18 14:51 74 26 35 05/19/18 14:00 76 27 90/21 (44) 98 05/19/18 13:00 75 31 102/33 (56) 98 05/19/18 12:44 75 22 35 05/19/18 12:30 75 31 111/13 (45) 98 05/19/18 12:00 98.4 84 27 73/14 (33) 98 05/19/18 12:00 35 05/19/18 12:00 Mechanical Ventilator Mechanical Ventilator 05/19/18 12:00 20 Mechanical Ventilator 35 05/19/18 11:30 84 27 79/18 (38) 98 Intake and Output 05/19/18 05/20/18 18:59 06:59 Intake Total 336.59 ml 260.94 ml Output Total 0 ml 0 ml Balance 336.59 ml 260.94 ml IV Total 336.59 ml 260.94 ml Output Urine Total 0 ml 0 ml # Bowel Movements 2 Laboratory Tests 05/20/18 05:05: White Blood Count 16.8H, Red Blood Count 2.79L, Hemoglobin 8.5L, Hematocrit 26.2L, Mean Corpuscular Volume 94, Mean Corpuscular Hemoglobin 30.4, Mean Corpuscular Hemoglobin Concent 32.4, Red Cell Distribution Width 15.2H, Platelet Count 331, Mean Platelet Volume 7.4, Neutrophils (%) (Auto) , Lymphocytes (%) (Auto) , Monocytes (%) (Auto) , Eosinophils (%) (Auto) , Basophils (%) (Auto) , Differential Total Cells Counted 100, Neutrophils % ( Manual) 86H, Lymphocytes % (Manual) 4L, Monocytes % (Manual) 8, Eosinophils % ( Manual) 2, Basophils % (Manual) 0, Band Neutrophils 0, Platelet Estimate Adequate, Platelet Morphology Normal, Hypochromasia 1+, Anisocytosis 1+, Sodium Level 137, Potassium Level 4.7, Chloride Level 97L, Carbon Dioxide Level 22, Anion Gap 18H, Blood Urea Nitrogen 120H, Creatinine 6.9H, Estimat Glomerular Filtration Rate , Glucose Level 153H, Uric Acid 9.8H, Calcium Level 8.1L, Phosphorus Level 9.5H, Magnesium Level 2.1, Total Bilirubin 0.5, Aspartate Amino Transf (AST/SGOT) 40H, Alanine Aminotransferase (ALT/SGPT) 19, Alkaline Phosphatase 134H, Troponin I 0.038, C-Reactive Protein, Quantitative 10.5H, Pro- B-Type Natriuretic Peptide > 11738T, Total Protein 5.2L, Albumin 1.7L, Globulin 3.5, Albumin/Globulin Ratio 0.5L, Digoxin Level 1.9 Current Medications Medications (Trade) Dose Ordered Sig/Min Route PRN Reason Start Time Stop Time Status Last Admin Dose Admin Acetaminophen (Tylenol) 650 mg Q4H PRN ORAL Mild Pain/Temp > 100.5 05/12/18 15:30 06/09/18 15:29 05/13/18 16:39 Amiodarone HCl 900 mg/Dextrose 500 ml @ 0 mls/hr Q24H IV 05/19/18 21:00 05/20/18 20:59 05/19/18 20:00 Chlorhexidine Gluconate (Tatyana-Hex 2%) 1 applic DAILY@2000 TOPIC 05/12/18 20:00 06/11/18 19:59 05/19/18 20:00 Dextrose (Dextrose 50%) 25 ml Q30M PRN IV Hypoglycemia 05/16/18 17:30 06/15/18 17:29 Dextrose (Dextrose 50%) 50 ml Q30M PRN IV Hypoglycemia 05/16/18 17:30 06/15/18 17:29 Digoxin (Lanoxin) 0.125 mg ONCE IVP 05/20/18 11:15 05/20/18 12:15 Haloperidol Lactate (Haldol) 5 mg Q6H PRN IM Agitation 05/19/18 16:00 06/18/18 15:59 Hydralazine HCl (Apresoline) 10 mg Q4H PRN IV bp over 160 syst 05/14/18 12:00 06/13/18 11:59 Hydromorphone HCl (Dilaudid) 1 mg Q2H PRN IVP Severe Pain (Pain Scale 7-10) 05/20/18 09:45 05/25/18 09:44 Insulin Aspart (NovoLOG) BEFORE MEALS AND HS SUBQ 05/16/18 21:00 06/15/18 20:59 05/20/18 06:38 Lorazepam (Ativan 2mg/ml 1ml) 1 mg Q6H PRN IV For Anxiety 05/19/18 08:15 05/26/18 08:14 05/19/18 11:38 Metoclopramide HCl (Reglan) 10 mg Q6H PRN IVP Nausea & Vomiting 05/16/18 06:15 06/10/18 15:29 Midodrine (Pro-Amatine) 2.5 mg THREE TIMES A DAY PRN ORAL for bp below 100 syst 05/19/18 10:15 06/14/18 12:59 Norepinephrine Bitartrate 4 mg/ Dextrose 250 ml @ 0 mls/hr Q24H IV 05/16/18 08:00 06/15/18 07:59 05/17/18 04:35 Ondansetron HCl (Zofran) 4 mg Q6H PRN IVP Nausea & Vomiting 05/15/18 23:30 06/14/18 23:29 Pantoprazole (Protonix) 40 mg EVERY 12 HOURS IVP 05/12/18 21:00 06/10/18 20:59 05/20/18 09:49 Piperacillin Sod/ Tazobactam Sod 2.25 gm/Dextrose 55 ml @ 110 mls/hr Q8HR IVPB 05/19/18 12:00 05/24/18 11:59 05/20/18 06:09 Sertraline HCl (Zoloft) 50 mg DAILY ORAL 05/20/18 09:00 06/19/18 08:59 Denis Hinkle MD May 20, 2018 11:29
--- NOTE | 2018-05-20 11:37 | Infectious Diseases Prog Note ---
Assessment/Plan Assessment/Plan A: 1. serratia , Enterobacter sepsis with shock 2. VRE colonization 3. diabetes mellitus 4. hypertension 5. 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 leucocytosis 6. A fib with RVR 7. Small bowel perforation 8. Perioperative respiratory failure 9. Atelectasis versus Pneumonia 10 Peritonitis with Citrobacter & Serratia P 1. continue Zosyn 2. will f/u cultures Subjective ROS Limited/Unobtainable: Yes Respiratory: Reports: other - extubated yesterday but reintubated Allergies: Coded Allergies: No Known Allergies (Unverified , 11/12/12) Objective Vital Signs Last 24 Hour Vital Signs Date Time Temp Pulse Resp B/P (MAP) Pulse Ox O2 Delivery O2 Flow Rate FiO2 05/20/18 11:04 74 22 35 05/20/18 11:00 77 22 114/59 (77) 100 05/20/18 10:30 76 24 117/57 (77) 99 05/20/18 10:00 76 23 109/60 (76) 99 05/20/18 09:30 76 24 117/56 (76) 98 05/20/18 09:00 77 23 111/56 (74) 98 05/20/18 08:43 98 05/20/18 08:43 72 31 35 05/20/18 08:30 79 27 123/64 (83) 98 05/20/18 08:00 35 05/20/18 08:00 78 05/20/18 08:00 Mechanical Ventilator Mechanical Ventilator 05/20/18 08:00 172/24 05/20/18 08:00 98.3 77 22 172/24 (73) 99 05/20/18 07:30 79 23 179/20 (72) 98 05/20/18 07:00 75 18 136/43 (74) 100 05/20/18 06:42 69 20 35 05/20/18 06:00 78 18 125/59 (81) 100 05/20/18 05:13 67 21 35 05/20/18 05:00 77 21 168/36 (80) 100 05/20/18 04:00 99.1 65 19 112/22 (52) 100 05/20/18 04:00 Mechanical Ventilator Mechanical Ventilator 05/20/18 04:00 35 05/20/18 03:27 74 21 35 05/20/18 03:00 78 23 165/15 (65) 97 05/20/18 02:00 81 23 175/44 (87) 97 05/20/18 01:14 67 20 35 05/20/18 01:00 68 23 88/73 (78) 100 05/20/18 00:00 99.4 68 21 99/61 (74) 100 05/20/18 00:00 35 05/20/18 00:00 Mechanical Ventilator Mechanical Ventilator 05/19/18 23:34 67 20 35 05/19/18 23:00 80 22 157/16 (63) 100 05/19/18 22:00 70 18 121/25 (57) 100 05/19/18 21:51 72 19 35 05/19/18 21:00 81 18 154/44 (80) 100 05/19/18 20:00 97.8 81 22 182/38 (86) 100 05/19/18 20:00 35 05/19/18 20:00 Mechanical Ventilator Mechanical Ventilator 05/19/18 20:00 81 05/19/18 19:35 71 19 35 05/19/18 19:00 65 20 101/14 (43) 100 05/19/18 18:00 68 20 117/30 (59) 100 05/19/18 17:00 84 27 83/10 (34) 100 05/19/18 16:41 73 27 35 05/19/18 16:00 Mechanical Ventilator Mechanical Ventilator 05/19/18 16:00 35 05/19/18 16:00 98.3 84 27 99/16 (43) 96 05/19/18 15:00 110 27 130/37 (68) 98 05/19/18 14:51 74 26 35 05/19/18 14:00 76 27 90/21 (44) 98 05/19/18 13:00 75 31 102/33 (56) 98 18 12:44 75 22 35 05/19/18 12:30 75 31 111/13 (45) 98 05/19/18 12:00 98.4 84 27 73/14 (33) 98 05/19/18 12:00 35 05/19/18 12:00 Mechanical Ventilator Mechanical Ventilator 05/19/18 12:00 20 Mechanical Ventilator 35 Height (Feet): 5 Height (Inches): 4.00 Weight (Pounds): 189 HEENT: other - orally intubated Respiratory/Chest: lungs clear, respiratory distress, other - on ventilator Cardiovascular: normal rate, other - R feoral HD line Abdomen: distended, other - surgical dressing & drain Extremities: other - edema Neurologic/Psychiatric: other - opens eyes Laboratory Tests Test 05/20/18 05:05 White Blood Count 16.8 K/UL (4.8-10.8) H Red Blood Count 2.79 M/UL (4.70-6.10) L Hemoglobin 8.5 G/DL (14.2-18.0) L Hematocrit 26.2 % (42.0-52.0) L Mean Corpuscular Volume 94 FL (80-99) Mean Corpuscular Hemoglobin 30.4 PG (27.0-31.0) Mean Corpuscular Hemoglobin Concent 32.4 G/DL (32.0-36.0) Red Cell Distribution Width 15.2 % (11.6-14.8) H Platelet Count 331 K/UL (150-450) Mean Platelet Volume 7.4 FL (6.5-10.1) Neutrophils (%) (Auto) % (45.0-75.0) Lymphocytes (%) (Auto) % (20.0-45.0) Monocytes (%) (Auto) % (1.0-10.0) Eosinophils (%) (Auto) % (0.0-3.0) Basophils (%) (Auto) % (0.0-2.0) Differential Total Cells Counted 100 Neutrophils % (Manual) 86 % (45-75) H Lymphocytes % (Manual) 4 % (20-45) L Monocytes % (Manual) 8 % (1-10) Eosinophils % (Manual) 2 % (0-3) Basophils % (Manual) 0 % (0-2) Band Neutrophils 0 % (0-8) Platelet Estimate Adequate Platelet Morphology Normal Hypochromasia 1+ Anisocytosis 1+ Sodium Level 137 MMOL/L (136-145) Potassium Level 4.7 MMOL/L (3.5-5.1) Chloride Level 97 MMOL/L (98-107) L Carbon Dioxide Level 22 MMOL/L (21-32) Anion Gap 18 mmol/L (5-15) H Blood Urea Nitrogen 120 mg/dL (7-18) H Creatinine 6.9 MG/DL (0.55-1.30) H Estimat Glomerular Filtration Rate mL/min (>60) Glucose Level 153 MG/DL (74-106) H Uric Acid 9.8 MG/DL (2.6-7.2) H Calcium Level 8.1 MG/DL (8.5-10.1) L Phosphorus Level 9.5 MG/DL (2.5-4.9) H Magnesium Level 2.1 MG/DL (1.8-2.4) Total Bilirubin 0.5 MG/DL (0.2-1.0) Aspartate Amino Transf (AST/SGOT) 40 U/L (15-37) H Alanine Aminotransferase (ALT/SGPT) 19 U/L (12-78) Alkaline Phosphatase 134 U/L (46-116) H Troponin I 0.038 ng/mL (0.000-0.056) C-Reactive Protein, Quantitative 10.5 mg/dL (0.00-0.90) H Pro-B-Type Natriuretic Peptide > 99496 pg/mL (0-125) H Total Protein 5.2 G/DL (6.4-8.2) L Albumin 1.7 G/DL (3.4-5.0) L Globulin 3.5 g/dL Albumin/Globulin Ratio 0.5 (1.0-2.7) L Digoxin Level 1.9 NG/ML (0.5-2.0) Current Medications Medications (Trade) Dose Ordered Sig/Min Route PRN Reason Start Time Stop Time Status Last Admin Dose Admin Acetaminophen (Tylenol) 650 mg Q4H PRN ORAL Mild Pain/Temp > 100.5 05/12/18 15:30 06/09/18 15:29 05/13/18 16:39 Amiodarone HCl 900 mg/Dextrose 500 ml @ 0 mls/hr Q24H IV 05/19/18 21:00 05/20/18 20:59 05/19/18 20:00 Chlorhexidine Gluconate (Tatyana-Hex 2%) 1 applic DAILY@2000 TOPIC 05/12/18 20:00 06/11/18 19:59 05/19/18 20:00 Dextrose (Dextrose 50%) 25 ml Q30M PRN IV Hypoglycemia 05/16/18 17:30 06/15/18 17:29 Dextrose (Dextrose 50%) 50 ml Q30M PRN IV Hypoglycemia 05/16/18 17:30 06/15/18 17:29 Digoxin (Lanoxin) 0.125 mg ONCE IVP 05/20/18 11:15 05/20/18 12:15 Haloperidol Lactate (Haldol) 5 mg Q6H PRN IM Agitation 05/19/18 16:00 06/18/18 15:59 Hydralazine HCl (Apresoline) 10 mg Q4H PRN IV bp over 160 syst 05/14/18 12:00 06/13/18 11:59 Hydromorphone HCl (Dilaudid) 1 mg Q2H PRN IVP Severe Pain (Pain Scale 7-10) 05/20/18 09:45 05/25/18 09:44 Insulin Aspart (NovoLOG) BEFORE MEALS AND HS SUBQ 05/16/18 21:00 06/15/18 20:59 05/20/18 06:38 Lorazepam (Ativan 2mg/ml 1ml) 1 mg Q6H PRN IV For Anxiety 05/19/18 08:15 05/26/18 08:14 05/19/18 11:38 Metoclopramide HCl (Reglan) 10 mg Q6H PRN IVP Nausea & Vomiting 05/16/18 06:15 06/10/18 15:29 Midodrine (Pro-Amatine) 2.5 mg THREE TIMES A DAY PRN ORAL for bp below 100 syst 05/19/18 10:15 06/14/18 12:59 Norepinephrine Bitartrate 4 mg/ Dextrose 250 ml @ 0 mls/hr Q24H IV 05/16/18 08:00 06/15/18 07:59 05/17/18 04:35 Ondansetron HCl (Zofran) 4 mg Q6H PRN IVP Nausea & Vomiting 05/15/18 23:30 06/14/18 23:29 Pantoprazole (Protonix) 40 mg EVERY 12 HOURS IVP 05/12/18 21:00 06/10/18 20:59 05/20/18 09:49 Piperacillin Sod/ Tazobactam Sod 2.25 gm/Dextrose 55 ml @ 110 mls/hr Q8HR IVPB 05/19/18 12:00 05/24/18 11:59 05/20/18 06:09 Sertraline HCl (Zoloft) 50 mg DAILY ORAL 05/20/18 09:00 06/19/18 08:59 Romie Hooks MD May 20, 2018 11:37
--- NOTE | 2018-05-20 11:44 | General Progress Note ---
Assessment/Plan Problem List: (1) ACS (acute coronary syndrome) ICD Codes: I24.9 - Acute ischemic heart disease, unspecified SNOMED: 165859805 (2) ESRD (end stage renal disease) on dialysis ICD Codes: N18.6 - End stage renal disease; Z99.2 - Dependence on renal dialysis SNOMED: 565361911 (3) Depression ICD Codes: F32.9 - Major depressive disorder, single episode, unspecified SNOMED: 72762726 (4) Anemia ICD Codes: D64.9 - Anemia, unspecified SNOMED: 179778161 (5) Sacral decubitus ulcer, stage III ICD Codes: L89.153 - Pressure ulcer of sacral region, stage 3 SNOMED: 982873801, 820566013 (6) Major depression ICD Codes: F32.9 - Major depressive disorder, single episode, unspecified SNOMED: 081679450 (7) anxiety disorder (8) Atrial fibrillation ICD Codes: I48.91 - Unspecified atrial fibrillation SNOMED: 10579857 (9) Hypoxemia ICD Codes: R09.02 - Hypoxemia SNOMED: 697122996 (10) Hypotension ICD Codes: I95.9 - Hypotension, unspecified SNOMED: 56290549 (11) Shock ICD Codes: R57.9 - Shock, unspecified SNOMED: 59411110 (12) Elevated d-dimer ICD Codes: R79.89 - Other specified abnormal findings of blood chemistry SNOMED: 604335584 (13) encephalopathy due to metabolic factor Status: unchanged Assessment/Plan respiratory failure intubated anxious esrd on hd s/p septic shock pna s/p lap choly w perforation (in different hospital) spoke w dr fragoso Subjective ROS Limited/Unobtainable: Yes Allergies: Coded Allergies: No Known Allergies (Unverified , 11/12/12) Objective Last 24 Hour Vital Signs Date Time Temp Pulse Resp B/P (MAP) Pulse Ox O2 Delivery O2 Flow Rate FiO2 05/20/18 11:04 74 22 35 05/20/18 11:00 77 22 114/59 (77) 100 05/20/18 10:30 76 24 117/57 (77) 99 05/20/18 10:00 76 23 109/60 (76) 99 05/20/18 09:30 76 24 117/56 (76) 98 05/20/18 09:00 77 23 111/56 (74) 98 05/20/18 08:43 98 05/20/18 08:43 72 31 35 05/20/18 08:30 79 27 123/64 (83) 98 05/20/18 08:00 35 05/20/18 08:00 78 05/20/18 08:00 Mechanical Ventilator Mechanical Ventilator 05/20/18 08:00 172/24 05/20/18 08:00 98.3 77 22 172/24 (73) 99 05/20/18 07:30 79 23 179/20 (72) 98 05/20/18 07:00 75 18 136/43 (74) 100 05/20/18 06:42 69 20 35 05/20/18 06:00 78 18 125/59 (81) 100 05/20/18 05:13 67 21 35 05/20/18 05:00 77 21 168/36 (80) 100 05/20/18 04:00 99.1 65 19 112/22 (52) 100 05/20/18 04:00 Mechanical Ventilator Mechanical Ventilator 05/20/18 04:00 35 05/20/18 03:27 74 21 35 05/20/18 03:00 78 23 165/15 (65) 97 05/20/18 02:00 81 23 175/44 (87) 97 05/20/18 01:14 67 20 35 05/20/18 01:00 68 23 88/73 (78) 100 05/20/18 00:00 99.4 68 21 99/61 (74) 100 05/20/18 00:00 35 05/20/18 00:00 Mechanical Ventilator Mechanical Ventilator 05/19/18 23:34 67 20 35 05/19/18 23:00 80 22 157/16 (63) 100 05/19/18 22:00 70 18 121/25 (57) 100 05/19/18 21:51 72 19 35 05/19/18 21:00 81 18 154/44 (80) 100 05/19/18 20:00 97.8 81 22 182/38 (86) 100 05/19/18 20:00 35 05/19/18 20:00 Mechanical Ventilator Mechanical Ventilator 05/19/18 20:00 81 05/19/18 19:35 71 19 35 05/19/18 19:00 65 20 101/14 (43) 100 05/19/18 18:00 68 20 117/30 (59) 100 05/19/18 17:00 84 27 83/10 (34) 100 05/19/18 16:41 73 27 35 05/19/18 16:00 Mechanical Ventilator Mechanical Ventilator 05/19/18 16:00 35 05/19/18 16:00 98.3 84 27 99/16 (43) 96 05/19/18 15:00 110 27 130/37 (68) 98 05/19/18 14:51 74 26 35 05/19/18 14:00 76 27 90/21 (44) 98 05/19/18 13:00 75 31 102/33 (56) 98 05/19/18 12:44 75 22 35 05/19/18 12:30 75 31 111/13 (45) 98 05/19/18 12:00 98.4 84 27 73/14 (33) 98 05/19/18 12:00 35 05/19/18 12:00 Mechanical Ventilator Mechanical Ventilator 05/19/18 12:00 20 Mechanical Ventilator 35 Intake and Output 05/19/18 05/20/18 18:59 06:59 Intake Total 336.59 ml 260.94 ml Output Total 0 ml 0 ml Balance 336.59 ml 260.94 ml IV Total 336.59 ml 260.94 ml Output Urine Total 0 ml 0 ml # Bowel Movements 2 Laboratory Tests 05/20/18 05:05: White Blood Count 16.8H, Red Blood Count 2.79L, Hemoglobin 8.5L, Hematocrit 26.2L, Mean Corpuscular Volume 94, Mean Corpuscular Hemoglobin 30.4, Mean Corpuscular Hemoglobin Concent 32.4, Red Cell Distribution Width 15.2H, Platelet Count 331, Mean Platelet Volume 7.4, Neutrophils (%) (Auto) , Lymphocytes (%) (Auto) , Monocytes (%) (Auto) , Eosinophils (%) (Auto) , Basophils (%) (Auto) , Differential Total Cells Counted 100, Neutrophils % ( Manual) 86H, Lymphocytes % (Manual) 4L, Monocytes % (Manual) 8, Eosinophils % ( Manual) 2, Basophils % (Manual) 0, Band Neutrophils 0, Platelet Estimate Adequate, Platelet Morphology Normal, Hypochromasia 1+, Anisocytosis 1+, Sodium Level 137, Potassium Level 4.7, Chloride Level 97L, Carbon Dioxide Level 22, Anion Gap 18H, Blood Urea Nitrogen 120H, Creatinine 6.9H, Estimat Glomerular Filtration Rate , Glucose Level 153H, Uric Acid 9.8H, Calcium Level 8.1L, Phosphorus Level 9.5H, Magnesium Level 2.1, Total Bilirubin 0.5, Aspartate Amino Transf (AST/SGOT) 40H, Alanine Aminotransferase (ALT/SGPT) 19, Alkaline Phosphatase 134H, Troponin I 0.038, C-Reactive Protein, Quantitative 10.5H, Pro- B-Type Natriuretic Peptide > 18401Y, Total Protein 5.2L, Albumin 1.7L, Globulin 3.5, Albumin/Globulin Ratio 0.5L, Digoxin Level 1.9 Height (Feet): 5 Height (Inches): 4.00 Weight (Pounds): 189 General Appearance: lethargic, confused Samantha Head MD May 20, 2018 11:44
--- NOTE | 2018-05-20 12:30 | NUR ---
NURSE NOTES: Dr. Chandler advised regarding feeding, he ordered to insert NG-tube and start on nutritional recommendation, patient is currently on hemodialysis, one ampule of albumin given to patient to increase sbp of 80-90, pharmacy called to make Levophed at 5mcg/min, patient BP increased to 110/51, he is responding to tactile touch and calling of name,
--- NOTE | 2018-05-20 12:38 | General Progress Note ---
Progress Note Progress Note surgery required reintubation labs noted drains clear okay for ng tube start feeds through ng tube trend labs wean vent thank you Tomas Chandler May 20, 2018 12:38
--- NOTE | 2018-05-20 14:10 | NUR ---
NURSE NOTES: Hemodialysis completed with no fluid removed, 50ml given with administration of albumin, patient remain son levophed at 5mcg/min with BP at 113/53, will continue to monitor.
--- NOTE | 2018-05-20 15:07 | Diagnostic Imaging Report ---
Indication: Post nasogastric tube placement Technique: Supine view of the for abdomen Comparison: 05/13/2018 Findings: Interim placement of a nasogastric tube, tip which projects at the level of gastric antrum, in good position. There is evidence of interim surgery, with skin janell now present to the left of midline. Mildly dilated gas-filled small bowel loops are seen in the left upper quadrant. Surgical clips are again demonstrated in the region of the gallbladder fossa Impression: Satisfactory nasogastric intubation Evidence of recent surgery Mildly dilated small bowel loops, likely representing postoperative ileus
--- NOTE | 2018-05-20 16:00 | NUR ---
NURSE NOTES: Dr. Chandler notified of abdominal x-ray resulted, impression is NG-tube satisfactory position and mildly dilated small bowel loops likely representing postoperative ileus, ordered to give tube feeding at 10ml/hr nepro and check residual in q4hrs, patient remains on Levophed at 3mcg/min.
--- NOTE | 2018-05-20 16:17 | NUR ---
NURSE NOTES: Saturations began to decrease to 65-69% with on fio2 35%, RT called and bagged at 100% FIO2 for 30 seconds and saturations began to increase, patient placed on FIO2 100% and saturations remains 100% on vehicle monitor technician. will continue to monitor.
[2018-05-20] MEDS ORDERED: Tubing IV Secondary IV ONE (17:03)
--- NOTE | 2018-05-20 19:00 | NUR ---
NURSE NOTES: Patient received from Miranda Calvin RN. Patient is awake and can respond to simple questions in Latvian with head nod. Patient currently on Levophed for hypotension episode earlier today in AM shift. 10mcg. Decreased to 8mcg when assessing patient. Patient HR is SR, Amiodarone at 0.5mg via IV line. Patient recently has Exploratory Laparotomy with SB resection, Dressing noted and VELVET drain draining. Patients is intubated with ETT size 7.5, 22cm at the lip, AC 16, 500ml/hr, 100% FiO2 and peep of 5. Patient has SCDs on and on an SPR mattress. Xray noted, labs noted, patient is anuric. Addendum: 05/20/18 at 1947 by CHARISSA CHAKRABORTY RN NURSE NOTES: CORRECTION; PATIENT RECEIVED FROM [facility] NOT [facility]
--- NOTE | 2018-05-20 19:30 | NUR ---
NURSE NOTES: Abdominal dressing noted, dry and intact, Jose Rodriguez (VELVET) drain noted on left abdominal site draining brown liquid fluid. 140ml out at around 1900, Surgeon cleared for NGT today for Nepro with starting rate of 10ml/hr. NGT in and satisfactory position based on KUB result. Levophed now at 8mcg, MAP staying above 60. Spo2 100% with good wave form.
--- NOTE | 2018-05-20 19:44 | NUR ---
HAND-OFF: Report given to MINGO Shetty. Patient is on levophed at 10mcg/min with Bp of 114/60.
--- NOTE | 2018-05-20 20:00 | NUR ---
NURSE NOTES: Patient remains on 8mcg of Levophed. No Acute distress. VELVET drain draining brown liquid fluid as oppose to a few days ago serosanguineous fluid. Patients SR, remains on Amio gtt. Patient changed, soft to liquid dark brown bowel movement.
[2018-05-20] MEDS: Dyna-Hex 2% Top Sol 2oz TOPIC SCH (20:52)
--- NOTE | 2018-05-20 21:00 | NUR ---
NURSE NOTES: NGT feeds started. Nepro at 10ml/hr. Residual check Q 4hrs per MD order.
--- NOTE | 2018-05-20 22:00 | NUR ---
NURSE NOTES: Fio2 now at 80%. Spo2 remaining at 100% with good waveform.
[2018-05-21] VITALS (47 sets, daily range): BP systolic 44–139; BP diastolic 16–65
--- NOTE | 2018-05-21 | NUR ---
NURSE NOTES: increased pressors as BP becoming more hypotensive. Oral care given. Will continue to monitor
--- NOTE | 2018-05-21 01:56 | General Progress Note ---
Assessment/Plan Problem List: (1) Major depression ICD Codes: F32.9 - Major depressive disorder, single episode, unspecified SNOMED: 426636656 (2) anxiety disorder (3) encephalopathy due to metabolic factor Status: unchanged Assessment/Plan zoloft 50mg q daily haldol 5mg im q6hr prn ativan was given by primary yesterday which seated him dw casandra blackwell and yolande gomes pts nurse Jenna Subjective Date patient seen: May 20, 2018 Neurologic/Psychiatric: Reports: anxiety, depressed Allergies: Coded Allergies: No Known Allergies (Unverified , 11/12/12) Subjective pt is withdrawing from his antidepressant and has psychomotor agitation. the pt was able to communicate via nodding. Romanian speaking. Objective Last 24 Hour Vital Signs Date Time Temp Pulse Resp B/P (MAP) Pulse Ox O2 Delivery O2 Flow Rate FiO2 05/21/18 00:38 90 27 35 05/20/18 23:48 72 16 Mechanical Ventilator 50 05/20/18 22:35 88 25 35 05/20/18 22:00 80 05/20/18 21:21 83 24 35 05/20/18 20:00 Mechanical Ventilator Mechanical Ventilator 05/20/18 20:00 86 05/20/18 20:00 100 05/20/18 19:00 114/60 05/20/18 18:59 85 27 35 05/20/18 18:45 115/52 05/20/18 18:30 84 20 113/44 (67) 100 05/20/18 18:30 113/44 05/20/18 18:15 99/34 05/20/18 18:00 77 18 86/37 (53) 100 05/20/18 18:00 86/37 05/20/18 17:30 74 16 93/36 (55) 100 05/20/18 17:00 87 30 99/58 (72) 100 05/20/18 17:00 108/51 05/20/18 16:45 108/57 05/20/18 16:30 88 16 108/57 (74) 100 05/20/18 16:30 94/52 05/20/18 16:15 75 24 35 05/20/18 16:15 89/50 05/20/18 16:00 99.0 84 16 89/50 (63) 100 12/31/18 16:00 35 05/20/18 16:00 79/36 05/20/18 16:00 Mechanical Ventilator Mechanical Ventilator 05/20/18 15:30 85 16 112/53 (72) 100 05/20/18 15:25 Room Air 05/20/18 15:22 Room Air 05/20/18 15:00 88 35 121/52 (75) 100 05/20/18 15:00 130/56 05/20/18 14:30 88 25 113/53 (73) 98 05/20/18 14:30 72 20 35 05/20/18 14:18 88 05/20/18 14:00 87 25 137/50 (79) 99 05/20/18 14:00 137/60 05/20/18 13:30 85 26 102/45 (64) 98 05/20/18 13:00 87 22 110/51 (70) 100 05/20/18 13:00 110/51 05/20/18 12:45 98/66 05/20/18 12:37 81/32 05/20/18 12:36 73 20 35 05/20/18 12:30 69 26 81/32 (48) 97 05/20/18 12:15 Mechanical Ventilator 35.0 05/20/18 12:00 98.3 80 30 86/46 (59) 100 05/20/18 12:00 Mechanical Ventilator Mechanical Ventilator 05/20/18 12:00 35 05/20/18 11:30 76 29 88/51 (63) 98 05/20/18 11:04 74 22 35 05/20/18 11:00 77 22 114/59 (77) 100 05/20/18 10:30 76 24 117/57 (77) 99 05/20/18 10:00 76 23 109/60 (76) 99 05/20/18 09:30 76 24 117/56 (76) 98 05/20/18 09:00 77 23 111/56 (74) 98 05/20/18 08:50 30 05/20/18 08:43 98 05/20/18 08:43 72 31 35 05/20/18 08:30 79 27 123/64 (83) 98 05/20/18 08:00 35 05/20/18 08:00 78 05/20/18 08:00 Mechanical Ventilator Mechanical Ventilator 05/20/18 08:00 172/24 12/31/18 08:00 98.3 77 22 172/24 (73) 99 05/20/18 07:30 79 23 179/20 (72) 98 05/20/18 07:00 75 18 136/43 (74) 100 05/20/18 06:42 69 20 35 05/20/18 06:00 78 18 125/59 (81) 100 05/20/18 05:13 67 21 35 05/20/18 05:00 77 21 168/36 (80) 100 05/20/18 04:00 99.1 65 19 112/22 (52) 100 05/20/18 04:00 Mechanical Ventilator Mechanical Ventilator 05/20/18 04:00 35 05/20/18 03:27 74 21 35 05/20/18 03:00 78 23 165/15 (65) 97 05/20/18 02:00 81 23 175/44 (87) 97 Intake and Output 05/20/18 05/21/18 19:00 07:00 Intake Total 413.82 ml Output Total 360 ml 0 ml Balance 53.82 ml 0 ml IV Total 393.82 ml Other 20 ml Output Urine Total 0 ml 0 ml Drainage Total 360 ml Hemodialysis UF 0 ml # Bowel Movements 5 1 Laboratory Tests 05/20/18 05:05: White Blood Count 16.8H, Red Blood Count 2.79L, Hemoglobin 8.5L, Hematocrit 26.2L, Mean Corpuscular Volume 94, Mean Corpuscular Hemoglobin 30.4, Mean Corpuscular Hemoglobin Concent 32.4, Red Cell Distribution Width 15.2H, Platelet Count 331, Mean Platelet Volume 7.4, Neutrophils (%) (Auto) , Lymphocytes (%) (Auto) , Monocytes (%) (Auto) , Eosinophils (%) (Auto) , Basophils (%) (Auto) , Differential Total Cells Counted 100, Neutrophils % ( Manual) 86H, Lymphocytes % (Manual) 4L, Monocytes % (Manual) 8, Eosinophils % ( Manual) 2, Basophils % (Manual) 0, Band Neutrophils 0, Platelet Estimate Adequate, Platelet Morphology Normal, Hypochromasia 1+, Anisocytosis 1+, Sodium Level 137, Potassium Level 4.7, Chloride Level 97L, Carbon Dioxide Level 22, Anion Gap 18H, Blood Urea Nitrogen 120H, Creatinine 6.9H, Estimat Glomerular Filtration Rate , Glucose Level 153H, Uric Acid 9.8H, Calcium Level 8.1L, Phosphorus Level 9.5H, Magnesium Level 2.1, Total Bilirubin 0.5, Aspartate Amino Transf (AST/SGOT) 40H, Alanine Aminotransferase (ALT/SGPT) 19, Alkaline Phosphatase 134H, Troponin I 0.038, C-Reactive Protein, Quantitative 10.5H, Pro- B-Type Natriuretic Peptide > 16162I, Total Protein 5.2L, Albumin 1.7L, Globulin 3.5, Albumin/Globulin Ratio 0.5L, Digoxin Level 1.9 Height (Feet): 5 Height (Inches): 4.00 Weight (Pounds): 189 General Appearance: alert, moderate distress, agitated Chely Kulkarni MD May 21, 2018 01:56
--- NOTE | 2018-05-21 02:00 | NUR ---
NURSE NOTES: Levophed at its max out at 30mcg. Patients HR also went to Sinus layne at one point but eventually went to SR. Amio remains running
--- NOTE | 2018-05-21 04:00 | NUR ---
NURSE NOTES: Patients bP continues to remain low, temperature at 101.3. Cooling measures given and Tylenol provided. Patients ETT making noise, called Rt to check it out, we suctioned and checked ballon volume, all was good, patient still getting good volume and Spo2 at 100% with good wave, will continue to monitor.
[2018-05-21] MEDS: Piperacillin/Tazobactam 2.25 GM in D5W 55 ML IVPB SCH ×3 (05:41→22:19)
[2018-05-21 05:44] LABS: HEMATOCRIT 31.8 % (42.0-52.0); HEMOGLOBIN 10.1 G/DL (14.2-18.0); MEAN CORPUSCULAR VOLUME 94 FL (80-99); PLATELET COUNT 458 K/UL (150-450); RED BLOOD COUNT 3.37 M/UL (4.70-6.10); RED CELL DISTRIBUTION WIDTH 14.9 % (11.6-14.8)
--- NOTE | 2018-05-21 06:00 | NUR ---
NURSE NOTES: ETT still making gurgling sounds, we suctioned and not much sputum, rechecked ballow and it satisfactory, although patient continues to get good volume and Spo2 remains at 100% with good waveform. Levo now at 28mcg.
[2018-05-21 06:04] LABS: ALANINE AMINOTRANSFERASE 15 U/L (12-78); ALBUMIN 1.8 G/DL (3.4-5.0); ALBUMIN/GLOBULIN RATIO 0.5 (1.0-2.7); ALKALINE PHOSPHATASE 117 U/L (46-116); ANION GAP 20 mmol/L (5-15); ASPARTATE AMINO TRANSFERASE 43 U/L (15-37); BILIRUBIN,TOTAL 0.8 MG/DL (0.2-1.0); BLOOD UREA NITROGEN 95 mg/dL (7-18); CALCIUM 8.3 MG/DL (8.5-10.1); CARBON DIOXIDE 23 MMOL/L (21-32); CHLORIDE 96 MMOL/L (98-107); CREATININE 6.1 MG/DL (0.55-1.30); PHOSPHORUS 8.7 MG/DL (2.5-4.9); POTASSIUM 4.8 MMOL/L (3.5-5.1); SODIUM 138 MMOL/L (136-145)
[2018-05-21] MEDS: NovoLOG Insulin Flexpen SUBQ SCH ×4 (06:21→22:13)
--- NOTE | 2018-05-21 06:49 | NUR ---
RESPIRATORY NOTE: Received pt on current vent settings. Pt endotracheal tube is patent and secured via anchor fast. Suctioned pt prn. No resp distress noted. Vent alarms are on and audible. Vent is plugged into red outlet. Will monitor pt progress.
[2018-05-21] MEDS ORDERED: Amiodarone 900 MG in D5W 500ml 482 ML IV SCH ×4 (07:30)
[2018-05-21] MEDS: DOPamine 400mg/250ml 250 ML IV SCH ×2 (07:45→13:40)
--- NOTE | 2018-05-21 07:45 | NUR ---
NURSE NOTES: Patient received from MINGO Romo. Patient is observed to be very lethargic, follows some commands, responds to stimulus, opens eyes spontaneously, responds with very slight head nods yes and no. Patient appears in some distress. Patient is gurgling and was suctioned from ETT and orally. Oral care was performed. Patient is being monitored on the air sampling and monitoring. VS 90/48, HR 88, RR 34 SPO2 97%. Patient is orally intubated with vent settings AC 16, TV 500, FIO2 30% and PEEP +5. Patient has OGT running Nepro at 10 ml. Residual was checked and 80 ml was pulled. Patient was immediately connected to suction and 250 ml of green bile was suctioned out of patient via OGT. TF was stopped. Patient is now NPO. Patient is anuric. Patient has ADILENE and RFA IV sites that patent and intact with Amiodarone running at 0.5 mg. Patient has Levo running at 30 mcgs due to hypotension via RFem Baljeet. Patient is s/p Ex Lap and small bowel resection with abdominal dressing that is dry and intact. Patient has L VELVET drain draining brown liquid that appears to be liquid stool. Will contact [facility] for further orders on patient. Patient has SCD's on BLE. Safety measures are in place with bed locked in the lowest position, side rails upx3. Will continue to monitor and follow plan of care.
[2018-05-21] MEDS: Sertraline 50mg tab ORAL SCH (09:00)
[2018-05-21] MEDS ORDERED: Levophed 4mg/4mL Inj IV ONE (09:02)
--- NOTE | 2018-05-21 09:50 | NUR ---
NURSE NOTES: Patient given 300 ml bolus of NS due to hypotension. 2nd pressor was started however, is slow to respond. Will continue to monitor closely. Dr Stephenson has been called for the 2nd time due to hypotension and new orders for possible 3rd pressor. Will monitor for hemodynamic instability.
--- NOTE | 2018-05-21 09:54 | NUR ---
NURSE NOTES: Dr. Chandler updated with pt's condition via phone - made aware patient's low BP and that patient is already on max dose of Levophed and Dopamine drip
[2018-05-21] MEDS: Pantoprazole Inj IVP SCH ×2 (10:30→22:06)
--- NOTE | 2018-05-21 10:32 | Infectious Diseases Prog Note ---
Assessment/Plan Assessment/Plan A: 1. serratia , Enterobacter sepsis with shock 2. VRE colonization 3. diabetes mellitus 4. hypertension 5. 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 leucocytosis 6. A fib with RVR 7. Small bowel perforation 8. Perioperative respiratory failure 9. Atelectasis versus Pneumonia 10 Peritonitis with Citrobacter & Serratia 11. sepsis, septic shock P 1. continue Zosyn add Micafungin 2. will f/u cultures Subjective ROS Limited/Unobtainable: Yes Constitutional: Reports: fever, other - Pklq=[id number] Cardiovascular: Reports: other - hypotensive in maximal dose of pressors Gastrointestinal/Abdominal: Reports: other - high residue Allergies: Coded Allergies: No Known Allergies (Unverified , 11/12/12) Objective Vital Signs Last 24 Hour Vital Signs Date Time Temp Pulse Resp B/P (MAP) Pulse Ox O2 Delivery O2 Flow Rate FiO2 05/21/18 09:18 88 29 40 05/21/18 09:07 90/47 05/21/18 08:00 40 05/21/18 07:00 87 20 77/39 (52) 100 05/21/18 07:00 77/39 05/21/18 06:49 91 25 35 05/21/18 06:40 80/47 05/21/18 06:00 94 20 102/47 (65) 100 05/21/18 05:41 /19 05/21/18 05:30 96 19 100/51 (67) 100 05/21/18 05:07 94 28 35 05/21/18 05:00 102/49 05/21/18 05:00 97 31 102/49 (66) 100 05/21/18 04:30 92 23 92/47 (62) 100 05/21/18 04:00 Mechanical Ventilator Mechanical Ventilator 05/21/18 04:00 71/33 05/21/18 04:00 40 05/21/18 04:00 101.3 97 26 71/33 (46) 97 05/21/18 03:30 97 23 83/43 (56) 100 05/21/18 03:05 95 27 35 05/21/18 03:00 98 23 86/48 (61) 100 05/21/18 03:00 86/43 05/21/18 02:30 100 28 92/46 (61) 100 05/21/18 02:16 75/19 05/21/18 02:00 98 21 103/51 (68) 100 05/21/18 01:30 98 21 110/59 (76) 100 05/21/18 01:00 94 25 81/39 (53) 100 05/21/18 00:38 90 27 35 05/21/18 00:30 85 28 78/39 (52) 100 05/21/18 00:00 60 05/21/18 00:00 98.4 89 25 94/41 (58) 100 05/21/18 00:00 Mechanical Ventilator Mechanical Ventilator 05/20/18 23:48 72 16 Mechanical Ventilator 50 05/20/18 23:30 88 25 97/41 (59) 100 05/20/18 23:00 88 19 86/41 (56) 100 05/20/18 23:00 86/41 05/20/18 22:35 88 25 35 05/20/18 22:30 88 19 96/42 (60) 100 05/20/18 22:00 80 05/20/18 22:00 111/44 05/20/18 22:00 86 19 111/44 (66) 100 05/20/18 21:30 86 21 116/48 (70) 100 05/20/18 21:21 83 24 35 05/20/18 21:00 77 22 95/41 (59) 100 05/20/18 21:00 95/41 05/20/18 20:30 84 18 111/52 (71) 100 05/20/18 20:00 Mechanical Ventilator Mechanical Ventilator 05/20/18 20:00 99.5 79 28 108/83 (91) 100 05/20/18 20:00 108/83 05/20/18 20:00 86 05/20/18 20:00 100 05/20/18 19:30 84 24 101/41 (61) 100 05/20/18 19:00 85 22 114/60 (78) 100 05/20/18 19:00 114/60 05/20/18 18:59 85 27 35 05/20/18 18:45 115/52 05/20/18 18:30 84 20 113/44 (67) 100 05/20/18 18:30 113/44 05/20/18 18:15 99/34 05/20/18 18:00 77 18 86/37 (53) 100 05/20/18 18:00 86/37 05/20/18 17:30 74 16 93/36 (55) 100 05/20/18 17:00 87 30 99/58 (72) 100 05/20/18 17:00 108/51 18 16:45 108/57 05/20/18 16:30 88 16 108/57 (74) 100 05/20/18 16:30 94/52 05/20/18 16:15 75 24 35 05/20/18 16:15 89/50 05/20/18 16:00 99.0 84 16 89/50 (63) 100 05/20/18 16:00 35 05/20/18 16:00 79/36 05/20/18 16:00 Mechanical Ventilator Mechanical Ventilator 05/20/18 15:30 85 16 112/53 (72) 100 05/20/18 15:25 Room Air 05/20/18 15:22 Room Air 05/20/18 15:00 88 35 121/52 (75) 100 05/20/18 15:00 130/56 05/20/18 14:30 88 25 113/53 (73) 98 05/20/18 14:30 72 20 35 05/20/18 14:18 88 05/20/18 14:00 87 25 137/50 (79) 99 05/20/18 14:00 137/60 05/20/18 13:30 85 26 102/45 (64) 98 05/20/18 13:00 87 22 110/51 (70) 100 05/20/18 13:00 110/51 05/20/18 12:45 98/66 05/20/18 12:37 81/32 05/20/18 12:36 73 20 35 05/20/18 12:30 69 26 81/32 (48) 97 05/20/18 12:15 Mechanical Ventilator 35.0 05/20/18 12:00 98.3 80 30 86/46 (59) 100 05/20/18 12:00 Mechanical Ventilator Mechanical Ventilator 05/20/18 12:00 35 05/20/18 11:30 76 29 88/51 (63) 98 05/20/18 11:04 74 22 35 05/20/18 11:00 77 22 114/59 (77) 100 05/20/18 10:30 76 24 117/57 (94) 37 Height (Feet): 5 Height (Inches): 4.00 Weight (Pounds): 189 HEENT: other - orally intubated Respiratory/Chest: lungs clear, other - on ventilator Cardiovascular: normal rate Abdomen: distended, other - orogastric tube to suction, abdominal drain, both has bilish secretions Extremities: other - edema Neurologic/Psychiatric: unresponsiveness Laboratory Tests Test 05/21/18 04:00 05/21/18 09:18 White Blood Count 11.0 K/UL (4.8-10.8) H Red Blood Count 3.37 M/UL (4.70-6.10) L Hemoglobin 10.1 G/DL (14.2-18.0) L Hematocrit 31.8 % (42.0-52.0) L Mean Corpuscular Volume 94 FL (80-99) Mean Corpuscular Hemoglobin 29.9 PG (27.0-31.0) Mean Corpuscular Hemoglobin Concent 31.7 G/DL (32.0-36.0) L Red Cell Distribution Width 14.9 % (11.6-14.8) H Platelet Count 458 K/UL (150-450) H Mean Platelet Volume 7.4 FL (6.5-10.1) Neutrophils (%) (Auto) % (45.0-75.0) Lymphocytes (%) (Auto) % (20.0-45.0) Monocytes (%) (Auto) % (1.0-10.0) Eosinophils (%) (Auto) % (0.0-3.0) Basophils (%) (Auto) % (0.0-2.0) Sodium Level 138 MMOL/L (136-145) Potassium Level 4.8 MMOL/L (3.5-5.1) Chloride Level 96 MMOL/L (98-107) L Carbon Dioxide Level 23 MMOL/L (21-32) Anion Gap 20 mmol/L (5-15) H Blood Urea Nitrogen 95 mg/dL (7-18) H Creatinine 6.1 MG/DL (0.55-1.30) H Estimat Glomerular Filtration Rate mL/min (>60) Glucose Level 160 MG/DL (74-106) H Uric Acid 7.7 MG/DL (2.6-7.2) H Calcium Level 8.3 MG/DL (8.5-10.1) L Phosphorus Level 8.7 MG/DL (2.5-4.9) H Magnesium Level 1.9 MG/DL (1.8-2.4) Total Bilirubin 0.8 MG/DL (0.2-1.0) Aspartate Amino Transf (AST/SGOT) 43 U/L (15-37) H Alanine Aminotransferase (ALT/SGPT) 15 U/L (12-78) Alkaline Phosphatase 117 U/L (46-116) H Troponin I 0.171 ng/mL (0.000-0.056) Pro-B-Type Natriuretic Peptide 22307 pg/mL (0-125) H Total Protein 5.2 G/DL (6.4-8.2) L Albumin 1.8 G/DL (3.4-5.0) L Globulin 3.4 g/dL Albumin/Globulin Ratio 0.5 (1.0-2.7) L Digoxin Level 1.9 NG/ML (0.5-2.0) Arterial Blood pH 7.366 (7.350-7.450) Arterial Blood Partial Pressure CO2 29.1 mmHg (35.0-45.0) L Arterial Blood Partial Pressure O2 72.2 mmHg (75.0-100.0) L Arterial Blood HCO3 16.3 mmol/L (22.0-26.0) *L Arterial Blood Oxygen Saturation 92.4 % (95-100) L Arterial Blood Base Excess -7.9 (-2-2) L Luiz Test Positive Current Medications Medications (Trade) Dose Ordered Sig/Min Route PRN Reason Start Time Stop Time Status Last Admin Dose Admin Acetaminophen (Tylenol) 650 mg Q4H PRN ORAL Mild Pain/Temp > 100.5 05/12/18 15:30 06/09/18 15:29 05/20/18 20:53 Amiodarone HCl 900 mg/Dextrose 500 ml @ 16.66 mls/ hr Q24H IV 05/21/18 07:30 05/22/18 07:29 05/21/18 08:15 Chlorhexidine Gluconate (Tatyana-Hex 2%) 1 applic DAILY@2000 TOPIC 05/12/18 20:00 06/11/18 19:59 05/20/18 20:52 Dextrose (Dextrose 50%) 25 ml Q30M PRN IV Hypoglycemia 05/16/18 17:30 06/15/18 17:29 Dextrose (Dextrose 50%) 50 ml Q30M PRN IV Hypoglycemia 05/16/18 17:30 06/15/18 17:29 Dopamine HCl/ Dextrose 250 ml @ 0 mls/hr Q24H IV 05/21/18 07:45 06/20/18 07:44 Haloperidol Lactate (Haldol) 5 mg Q6H PRN IM Agitation 05/19/18 16:00 06/18/18 15:59 Hydralazine HCl (Apresoline) 10 mg Q4H PRN IV bp over 160 syst 05/14/18 12:00 06/13/18 11:59 Hydromorphone HCl (Dilaudid) 1 mg Q2H PRN IVP Severe Pain (Pain Scale 7-10) 05/20/18 09:45 05/25/18 09:44 Insulin Aspart (NovoLOG) BEFORE MEALS AND HS SUBQ 05/16/18 21:00 06/15/18 20:59 05/21/18 06:21 Lorazepam (Ativan 2mg/ml 1ml) 1 mg Q6H PRN IV For Anxiety 05/19/18 08:15 05/26/18 08:14 05/19/18 11:38 Metoclopramide HCl (Reglan) 10 mg Q6H PRN IVP Nausea & Vomiting 05/16/18 06:15 06/10/18 15:29 Midodrine (Pro-Amatine) 2.5 mg THREE TIMES A DAY PRN ORAL for bp below 100 syst 05/19/18 10:15 06/14/18 12:59 Norepinephrine Bitartrate 4 mg/ Dextrose 250 ml @ 0 mls/hr Q24H IV 05/16/18 08:00 06/15/18 07:59 05/21/18 09:07 Ondansetron HCl (Zofran) 4 mg Q6H PRN IVP Nausea & Vomiting 05/15/18 23:30 06/14/18 23:29 Pantoprazole (Protonix) 40 mg EVERY 12 HOURS IVP 05/12/18 21:00 06/10/18 20:59 05/20/18 20:52 Phenylephrine HCl 50 mg/Dextrose 250 ml @ 0 mls/hr Q24H IV 05/21/18 11:00 06/20/18 10:59 Piperacillin Sod/ Tazobactam Sod 2.25 gm/Dextrose 55 ml @ 110 mls/hr Q8HR IVPB 05/19/18 12:00 05/24/18 11:59 05/21/18 05:41 Sertraline HCl (Zoloft) 50 mg DAILY ORAL 05/20/18 09:00 06/19/18 08:59 Romie Hooks MD May 21, 2018 10:32
--- NOTE | 2018-05-21 11:44 | Nephrology Progress Note ---
Assessment/Plan Problem List: (1) ESRD (end stage renal disease) on dialysis (2) Perforated bowel (3) Hyponatremia (4) Major depression (5) Nausea & vomiting (6) H/O abdominal surgery Assessment: recent (7) Shock Assessment patient on 2 pressors recent abdominal surgery hemodynamically stablized over night Presents with CHF and Low Na ESRD ACS DM HTN h/o GI bleed Depression Plan On 2 pressors resume steroids Dialysed 05/17 and next Midodrine weaning as possible insulin for high BS hold dig , check levels, resume as needed no NGT ,On Vent Psych started Zoloft PO ? Will DC ZOLOFT. Has abd surgery 05/15 Perforated bowel graft clotted , has a femoral felice right HOLD ALL MIND ALTERING MEDS - DC all po meds FLUID CHALLENGE pressors as needed BP HR Pain control discussed with RN and Dr Jones IV protonix Subjective ROS Limited/Unobtainable: Yes Objective Objective Last 24 Hour Vital Signs Date Time Temp Pulse Resp B/P (MAP) Pulse Ox O2 Delivery O2 Flow Rate FiO2 05/21/18 11:29 90 28 40 05/21/18 09:18 88 29 40 05/21/18 09:07 90/47 05/21/18 08:00 40 05/21/18 07:00 87 20 77/39 (52) 100 05/21/18 07:00 77/39 05/21/18 06:49 91 25 35 05/21/18 06:40 80/47 05/21/18 06:00 94 20 102/47 (65) 100 05/21/18 05:41 /19 05/21/18 05:30 96 19 100/51 (67) 100 05/21/18 05:07 94 28 35 05/21/18 05:00 102/49 05/21/18 05:00 97 31 102/49 (66) 100 05/21/18 04:30 92 23 92/47 (62) 100 05/21/18 04:00 Mechanical Ventilator Mechanical Ventilator 05/21/18 04:00 71/33 05/21/18 04:00 40 05/21/18 04:00 101.3 97 26 71/33 (46) 97 05/21/18 03:30 97 23 83/43 (56) 100 05/21/18 03:05 95 27 35 05/21/18 03:00 98 23 86/48 (61) 100 05/21/18 03:00 86/43 05/21/18 02:30 100 28 92/46 (61) 100 05/21/18 02:16 75/19 05/21/18 02:00 98 21 103/51 (68) 100 05/21/18 01:30 98 21 110/59 (76) 100 05/21/18 01:00 94 25 81/39 (53) 100 05/21/18 00:38 90 27 35 05/21/18 00:30 85 28 78/39 (52) 100 05/21/18 00:00 60 05/21/18 00:00 98.4 89 25 94/41 (58) 100 05/21/18 00:00 Mechanical Ventilator Mechanical Ventilator 05/20/18 23:48 72 16 Mechanical Ventilator 50 05/20/18 23:30 88 25 97/41 (59) 100 05/20/18 23:00 88 19 86/41 (56) 100 05/20/18 23:00 86/41 05/20/18 22:35 88 25 35 05/20/18 22:30 88 19 96/42 (60) 100 05/20/18 22:00 80 05/20/18 22:00 111/44 05/20/18 22:00 86 19 111/44 (66) 100 05/20/18 21:30 86 21 116/48 (70) 100 05/20/18 21:21 83 24 35 05/20/18 21:00 77 22 95/41 (59) 100 05/20/18 21:00 95/41 05/20/18 20:30 84 18 111/52 (71) 100 05/20/18 20:00 Mechanical Ventilator Mechanical Ventilator 05/20/18 20:00 99.5 79 28 108/83 (91) 100 05/20/18 20:00 108/83 05/20/18 20:00 86 05/20/18 20:00 100 05/20/18 19:30 84 24 101/41 (61) 100 05/20/18 19:00 85 22 114/60 (78) 100 05/20/18 19:00 114/60 05/20/18 18:59 85 27 35 05/20/18 18:45 115/52 05/20/18 18:30 84 20 113/44 (67) 100 05/20/18 18:30 113/44 05/20/18 18:15 99/34 05/20/18 18:00 77 18 86/37 (53) 100 05/20/18 18:00 86/37 05/20/18 17:30 74 16 93/36 (55) 100 05/20/18 17:00 87 30 99/58 (72) 100 05/20/18 17:00 108/51 05/20/18 16:45 108/57 05/20/18 16:30 88 16 108/57 (74) 100 05/20/18 16:30 94/52 05/20/18 16:15 75 24 35 05/20/18 16:15 89/50 05/20/18 16:00 99.0 84 16 89/50 (63) 100 05/20/18 16:00 35 05/20/18 16:00 79/36 05/20/18 16:00 Mechanical Ventilator Mechanical Ventilator 05/20/18 15:30 85 16 112/53 (72) 100 05/20/18 15:25 Room Air 05/20/18 15:22 Room Air 05/20/18 15:00 88 35 121/52 (75) 100 05/20/18 15:00 130/56 05/20/18 14:30 88 25 113/53 (73) 98 05/20/18 14:30 72 20 35 05/20/18 14:18 88 05/20/18 14:00 87 25 137/50 (79) 99 05/20/18 14:00 137/60 05/20/18 13:30 85 26 102/45 (64) 98 05/20/18 13:00 87 22 110/51 (70) 100 05/20/18 13:00 110/51 05/20/18 12:45 98/66 05/20/18 12:37 81/32 05/20/18 12:36 73 20 35 05/20/18 12:30 69 26 81/32 (48) 97 05/20/18 12:15 Mechanical Ventilator 35.0 05/20/18 12:00 98.3 80 30 86/46 (59) 100 05/20/18 12:00 Mechanical Ventilator Mechanical Ventilator 05/20/18 12:00 35 Intake and Output 05/20/18 05/21/18 18:59 06:59 Intake Total 459.42 ml 536.26 ml Output Total 360 ml 20 ml Balance 99.42 ml 516.26 ml IV Total 439.42 ml 536.26 ml Other 20 ml Output Urine Total 0 ml 20 ml Drainage Total 360 ml Hemodialysis UF 0 ml # Bowel Movements 5 3 Laboratory Tests 05/21/18 04:00: White Blood Count 11.0H, Red Blood Count 3.37L, Hemoglobin 10.1L, Hematocrit 31.8L, Mean Corpuscular Volume 94, Mean Corpuscular Hemoglobin 29.9, Mean Corpuscular Hemoglobin Concent 31.7L, Red Cell Distribution Width 14.9H, Platelet Count 458H, Mean Platelet Volume 7.4, Neutrophils (%) (Auto) , Lymphocytes (%) (Auto) , Monocytes (%) (Auto) , Eosinophils (%) (Auto) , Basophils (%) (Auto) , Sodium Level 138, Potassium Level 4.8, Chloride Level 96L , Carbon Dioxide Level 23, Anion Gap 20H, Blood Urea Nitrogen 95H, Creatinine 6.1H, Estimat Glomerular Filtration Rate , Glucose Level 160H, Uric Acid 7.7H, Calcium Level 8.3L, Phosphorus Level 8.7H, Magnesium Level 1.9, Total Bilirubin 0.8, Aspartate Amino Transf (AST/SGOT) 43H, Alanine Aminotransferase (ALT/SGPT) 15, Alkaline Phosphatase 117H, Troponin I 0.171H, Pro-B-Type Natriuretic Peptide 95571V, Total Protein 5.2L, Albumin 1.8L, Globulin 3.4, Albumin/ Globulin Ratio 0.5L, Digoxin Level 1.9 05/21/18 09:18: Arterial Blood pH 7.366, Arterial Blood Partial Pressure CO2 29.1L, Arterial Blood Partial Pressure O2 72.2L, Arterial Blood HCO3 16.3*L, Arterial Blood Oxygen Saturation 92.4L, Arterial Blood Base Excess -7.9L, Luiz Test Positive 05/21/18 09:50: Lactic Acid Level 7.50H Height (Feet): 5 Height (Inches): 4.00 Weight (Pounds): 189 General Appearance: other - MS down Cardiovascular: tachycardia Respiratory/Chest: decreased breath sounds Abdomen: distended Objective no change Fouladian,Maurilio MD May 21, 2018 11:44
--- NOTE | 2018-05-21 11:49 | General Progress Note ---
Assessment/Plan Assessment/Plan (1) Abdominal pain (2) S/p Lap Cholecystectomy (3) Encephalopathy possible septic shock (4) ESRD on hemodialysis (5) S/p emergent exploratory laboratory small bowel resection omentectomy due to small bowel perforation in distal ileum Patient to be continued on Dilaudid. We will start Tylenol 650mg rectal suppository Q4H PRN Temp>100.5 or mild pain. Parameters to be continued. D/w Dr. Busby and he concurred. Subjective Date patient seen: May 21, 2018 Time patient seen: 11:30 - am ROS Limited/Unobtainable: Yes Allergies: Coded Allergies: No Known Allergies (Unverified , 11/12/12) Subjective Patient is found to be in bed and intubated and found to have redness at surgical site with tenderness to palpation at abdominal area. However patient is hemodynamically unstable at this time, on 2 pressors. Parameters have been continues by nursing staff no Dilaudid has been given to patient in the last 24hrs. Objective Last 24 Hour Vital Signs Date Time Temp Pulse Resp B/P (MAP) Pulse Ox O2 Delivery O2 Flow Rate FiO2 05/21/18 11:29 90 28 40 05/21/18 09:18 88 29 40 05/21/18 09:07 90/47 05/21/18 08:00 40 05/21/18 07:00 87 20 77/39 (52) 100 05/21/18 07:00 77/39 05/21/18 06:49 91 25 35 05/21/18 06:40 80/47 05/21/18 06:00 94 20 102/47 (65) 100 05/21/18 05:41 75/19 05/21/18 05:30 96 19 100/51 (67) 100 05/21/18 05:07 94 28 35 05/21/18 05:00 102/49 05/21/18 05:00 97 31 102/49 (66) 100 05/21/18 04:30 92 23 92/47 (62) 100 05/21/18 04:00 Mechanical Ventilator Mechanical Ventilator 05/21/18 04:00 71/33 05/21/18 04:00 40 05/21/18 04:00 101.3 97 26 71/33 (46) 97 05/21/18 03:30 97 23 83/43 (56) 100 05/21/18 03:05 95 27 35 05/21/18 03:00 98 23 86/48 (61) 100 05/21/18 03:00 86/43 05/21/18 02:30 100 28 92/46 (61) 100 05/21/18 02:16 75/19 05/21/18 02:00 98 21 103/51 (68) 100 05/21/18 01:30 98 21 110/59 (76) 100 05/21/18 01:00 94 25 81/39 (53) 100 05/21/18 00:38 90 27 35 05/21/18 00:30 85 28 78/39 (52) 100 05/21/18 00:00 60 05/21/18 00:00 98.4 89 25 94/41 (58) 100 05/21/18 00:00 Mechanical Ventilator Mechanical Ventilator 05/20/18 23:48 72 16 Mechanical Ventilator 50 05/20/18 23:30 88 25 97/41 (59) 100 05/20/18 23:00 88 19 86/41 (56) 100 05/20/18 23:00 86/41 05/20/18 22:35 88 25 35 05/20/18 22:30 88 19 96/42 (60) 100 05/20/18 22:00 80 05/20/18 22:00 111/44 05/20/18 22:00 86 19 111/44 (66) 100 05/20/18 21:30 86 21 116/48 (70) 100 05/20/18 21:21 83 24 35 05/20/18 21:00 77 22 95/41 (59) 100 05/20/18 21:00 95/41 05/20/18 20:30 84 18 111/52 (71) 100 05/20/18 20:00 Mechanical Ventilator Mechanical Ventilator 05/20/18 20:00 99.5 79 28 108/83 (91) 100 05/20/18 20:00 108/83 05/20/18 20:00 86 05/20/18 20:00 100 05/20/18 19:30 84 24 101/41 (61) 100 05/20/18 19:00 85 22 114/60 (78) 100 05/20/18 19:00 114/60 05/20/18 18:59 85 27 35 12/31/18 18:45 115/52 05/20/18 18:30 84 20 113/44 (67) 100 05/20/18 18:30 113/44 05/20/18 18:15 99/34 05/20/18 18:00 77 18 86/37 (53) 100 05/20/18 18:00 86/37 05/20/18 17:30 74 16 93/36 (55) 100 05/20/18 17:00 87 30 99/58 (72) 100 05/20/18 17:00 108/51 05/20/18 16:45 108/57 05/20/18 16:30 88 16 108/57 (74) 100 05/20/18 16:30 94/52 05/20/18 16:15 75 24 35 05/20/18 16:15 89/50 05/20/18 16:00 99.0 84 16 89/50 (63) 100 05/20/18 16:00 35 05/20/18 16:00 79/36 05/20/18 16:00 Mechanical Ventilator Mechanical Ventilator 05/20/18 15:30 85 16 112/53 (72) 100 05/20/18 15:25 Room Air 05/20/18 15:22 Room Air 05/20/18 15:00 88 35 121/52 (75) 100 05/20/18 15:00 130/56 05/20/18 14:30 88 25 113/53 (73) 98 05/20/18 14:30 72 20 35 05/20/18 14:18 88 05/20/18 14:00 87 25 137/50 (79) 99 05/20/18 14:00 137/60 05/20/18 13:30 85 26 102/45 (64) 98 05/20/18 13:00 87 22 110/51 (70) 100 05/20/18 13:00 110/51 05/20/18 12:45 98/66 05/20/18 12:37 81/32 05/20/18 12:36 73 20 35 05/20/18 12:30 69 26 81/32 (48) 97 05/20/18 12:15 Mechanical Ventilator 35.0 05/20/18 12:00 98.3 80 30 86/46 (59) 100 05/20/18 12:00 Mechanical Ventilator Mechanical Ventilator 05/20/18 12:00 35 Intake and Output 05/20/18 05/21/18 18:59 06:59 Intake Total 459.42 ml 536.26 ml Output Total 360 ml 20 ml Balance 99.42 ml 516.26 ml IV Total 439.42 ml 536.26 ml Other 20 ml Output Urine Total 0 ml 20 ml Drainage Total 360 ml Hemodialysis UF 0 ml # Bowel Movements 5 3 Laboratory Tests 05/21/18 04:00: White Blood Count 11.0H, Red Blood Count 3.37L, Hemoglobin 10.1L, Hematocrit 31.8L, Mean Corpuscular Volume 94, Mean Corpuscular Hemoglobin 29.9, Mean Corpuscular Hemoglobin Concent 31.7L, Red Cell Distribution Width 14.9H, Platelet Count 458H, Mean Platelet Volume 7.4, Neutrophils (%) (Auto) , Lymphocytes (%) (Auto) , Monocytes (%) (Auto) , Eosinophils (%) (Auto) , Basophils (%) (Auto) , Sodium Level 138, Potassium Level 4.8, Chloride Level 96L , Carbon Dioxide Level 23, Anion Gap 20H, Blood Urea Nitrogen 95H, Creatinine 6.1H, Estimat Glomerular Filtration Rate , Glucose Level 160H, Uric Acid 7.7H, Calcium Level 8.3L, Phosphorus Level 8.7H, Magnesium Level 1.9, Total Bilirubin 0.8, Aspartate Amino Transf (AST/SGOT) 43H, Alanine Aminotransferase (ALT/SGPT) 15, Alkaline Phosphatase 117H, Troponin I 0.171H, Pro-B-Type Natriuretic Peptide 37139K, Total Protein 5.2L, Albumin 1.8L, Globulin 3.4, Albumin/ Globulin Ratio 0.5L, Digoxin Level 1.9 05/21/18 09:18: Arterial Blood pH 7.366, Arterial Blood Partial Pressure CO2 29.1L, Arterial Blood Partial Pressure O2 72.2L, Arterial Blood HCO3 16.3*L, Arterial Blood Oxygen Saturation 92.4L, Arterial Blood Base Excess -7.9L, Luiz Test Positive 05/21/18 09:50: Lactic Acid Level 7.50H Height (Feet): 5 Height (Inches): 4.00 Weight (Pounds): 189 Objective GENERAL: Intubated. LUNGS: Decreased breath sounds bilaterally. HEART: S1 S2 Regular. ABDOMEN: Tenderness to palpation. Bandages and drain noted. EXTREMITIES: No cyanosis. No clubbing. Sid Holland May 21, 2018 11:49
[2018-05-21] MEDS ORDERED: Acetaminophen 650 MG SUPP RECTAL PRN (12:00)
--- NOTE | 2018-05-21 12:00 | NUR ---
NURSE NOTES: Patient continues to be lethargic and hemodynamically unstable. Patient is responsive, opens eyes spontaneously, responds with very slight head nods yes and no. Patient does nod that he is in pain. 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 Patient was given Ativan and Florentino started at 100 mcgs. Patient is orally intubated with vent settings AC 16, TV 500, FIO2 100% and PEEP +5. Patient has OGT that is clamped and NPO. Patient is anuric. Patient has ADILENE and RFA IV sites that patent and intact with Amiodarone running at 0.5 mg. Patient has Levo running at 30 mcgs and Dopa 20 mcgs due to hypotension via RFem Baljeet. Patient has L VELVET drain draining brown liquid that appears to be liquid stool. Patient has SCD's on BLE. Safety measures are in place with bed locked in the lowest position, side rails upx3. Will continue to monitor and follow plan of care.
--- NOTE | 2018-05-21 12:01 | Diagnostic Imaging Report ---
EXAM: XR Chest, 1 View CLINICAL HISTORY: F/U TECHNIQUE: Frontal view of the chest. COMPARISON: No relevant prior studies available. FINDINGS: Lungs: Reduced lung volumes. Retrocardiac atelectasis/consolidation. Accentuation of interstitial markings. Pleural space: Unremarkable. No pneumothorax. Heart: Large cardiac silhouette. Mediastinum: Unremarkable. Bones/joints: No acute fracture. Tubes, lines and devices: Endotracheal tube at the thoracic inlet, approximately 8 cm above the jacy. Enteric tube directed below the diaphragm. IMPRESSION: 1. Endotracheal tube at the thoracic inlet, approximately 8 cm above the jacy. 2. Reduced lung volumes. Retrocardiac atelectasis/consolidation. Critical Value Communications 05/21/18 12:02 Call Nurse MINGO West in ICU on 05/21 12:02 (-08:00)
[2018-05-21] MEDS ORDERED: Hydrocortisone 100mg Inj IV SCH (12:30)
[2018-05-21] MEDS: Phenylephrine 50 MG in D5W 245 ML IV SCH (12:45)
--- NOTE | 2018-05-21 12:45 | NUR ---
NURSE NOTES: Dr Chandler assessed patient bedside. Per MD, patient is hemodynamically unstable for CT, VQ or to go to the OR for Ex Lap. Patient is to start 3rd pressor and to be given sedation at this time for his agonal breathing. Reported Lactic acid of 7.50. Reviewed output of VELVET Drain. Per MD will continue to monitor patient very closely and call with any changes.
[2018-05-21] MEDS: LORazepam Inj 2mg/ml 1ml IV PRN (12:53)
--- NOTE | 2018-05-21 13:11 | NUR ---
NURSE NOTES: Dr Head was updated regarding patient's declining condition. VS, lab values and current dosages of pressors were left on the message. patient is currently stable with BP 109/38, HR 110, RR 28 and SPO2 100%.
--- NOTE | 2018-05-21 13:27 | General Progress Note ---
Progress Note Progress Note Surgery: Patient rapidly declining. reintubated yesterday after failing extubation. since on pressors and now on two pressors about to start third leukocytosis 11k lactic acid elevated troponin elevated ECHO noted on steroids on HD 78M who had iatrogenic perforation during lap matthew at outside facility by another surgeon s/p ex-lap with washout, bowel resection, and primary small bowel anastomosis with abdominal drain placement. patient is at high risk for anastomotic failure given history, steroids, and nutritional status. could potentially have leak but in currently rapid decline unsafe to re-operation as he would not tolerate induction or surgery. very high mortality in operative setting. if shows improvement and stabilizes will warrant re-exploration if other etiology of rapid decline not evident. npo ng tube to intermittent suction drain care, monitor output cont iv abx including antifungal prognosis guarded. Tomas Chandler May 21, 2018 13:27
[2018-05-21] MEDS: Micafungin 100 MG in NS 110 ML IVPB SCH (14:06)
[2018-05-21] MEDS: Norepinephrine Bitartrate 8 MG in D5W 500ml 492 ML IV SCH ×2 (14:07→19:20)
--- NOTE | 2018-05-21 14:37 | Cardiac Electrophysiology PN ---
Assessment/Plan Assessment/Plan 1. Atrial fib/flutter with RVR . On Amio drip and off po Dig as still NPO Dig level 2.5 on 05/16/18. Converted to SR. 2. Chest pain. No CT. EKG showed old inferior and anterior wall CT, but no ischemia. ECHO with normal LV function 3. End-stage renal disease, on hemodialysis per Dr. Arroyo. 4. Septic shock, on 3 pressors today while was on none yesterday. ? etiology. Dr Chandler reevaluated. 2D Echo EF 60% and PA pressure 63 ? PE. DD 35.2. Unstable for chest CT angio. 5. History of kidney stones. 6. History of psychiatric problems, dementia. 7. Hx of lap matthew. S/P SB resection 05/15/18 with drain 8. Respiratory failure, intubated on the vent. SAW RN Subjective Subjective In ICU on Amiodarone 0.5 mg and started back on Levophed drip yesterday and now on 3 pressors and 100% Fio2 Objective Last 24 Hour Vital Signs Date Time Temp Pulse Resp B/P (MAP) Pulse Ox O2 Delivery O2 Flow Rate FiO2 05/21/18 12:48 91 26 40 05/21/18 11:29 90 28 40 05/21/18 09:18 88 29 40 05/21/18 09:07 90/47 05/21/18 08:00 40 05/21/18 07:00 87 20 77/39 (52) 100 05/21/18 07:00 77/39 05/21/18 06:49 91 25 35 05/21/18 06:40 80/47 05/21/18 06:00 94 20 102/47 (65) 100 05/21/18 05:41 75/19 05/21/18 05:30 96 19 100/51 (67) 100 05/21/18 05:07 94 28 35 05/21/18 05:00 102/49 05/21/18 05:00 97 31 102/49 (66) 100 05/21/18 04:30 92 23 92/47 (62) 100 05/21/18 04:00 Mechanical Ventilator Mechanical Ventilator 05/21/18 04:00 71/33 05/21/18 04:00 40 05/21/18 04:00 101.3 97 26 71/33 (46) 97 05/21/18 03:30 97 23 83/43 (56) 100 05/21/18 03:05 95 27 35 05/21/18 03:00 98 23 86/48 (61) 100 05/21/18 03:00 86/43 05/21/18 02:30 100 28 92/46 (61) 100 05/21/18 02:16 75/19 05/21/18 02:00 98 21 103/51 (68) 100 05/21/18 01:30 98 21 110/59 (76) 100 05/21/18 01:00 94 25 81/39 (53) 100 05/21/18 00:38 90 27 35 05/21/18 00:30 85 28 78/39 (52) 100 05/21/18 00:00 60 05/21/18 00:00 98.4 89 25 94/41 (58) 100 05/21/18 00:00 Mechanical Ventilator Mechanical Ventilator 05/20/18 23:48 72 16 Mechanical Ventilator 50 05/20/18 23:30 88 25 97/41 (59) 100 05/20/18 23:00 88 19 86/41 (56) 100 05/20/18 23:00 86/41 05/20/18 22:35 88 25 35 05/20/18 22:30 88 19 96/42 (60) 100 05/20/18 22:00 80 05/20/18 22:00 111/44 05/20/18 22:00 86 19 111/44 (66) 100 05/20/18 21:30 86 21 116/48 (70) 100 05/20/18 21:21 83 24 35 05/20/18 21:00 77 22 95/41 (59) 100 05/20/18 21:00 95/41 05/20/18 20:30 84 18 111/52 (71) 100 05/20/18 20:00 Mechanical Ventilator Mechanical Ventilator 05/20/18 20:00 99.5 79 28 108/83 (91) 100 05/20/18 20:00 108/83 05/20/18 20:00 86 05/20/18 20:00 100 05/20/18 19:30 84 24 101/41 (61) 100 05/20/18 19:00 85 22 114/60 (78) 100 05/20/18 19:00 114/60 05/20/18 18:59 85 27 35 05/20/18 18:45 115/52 05/20/18 18:30 84 20 113/44 (67) 100 05/20/18 18:30 113/44 05/20/18 18:15 99/34 05/20/18 18:00 77 18 86/37 (53) 100 05/20/18 18:00 86/37 05/20/18 17:30 74 16 93/36 (55) 100 05/20/18 17:00 87 30 99/58 (72) 100 05/20/18 17:00 108/51 05/20/18 16:45 108/57 05/20/18 16:30 88 16 108/57 (74) 100 05/20/18 16:30 94/52 05/20/18 16:15 75 24 35 05/20/18 16:15 89/50 05/20/18 16:00 99.0 84 16 89/50 (63) 100 05/20/18 16:00 35 05/20/18 16:00 79/36 05/20/18 16:00 Mechanical Ventilator Mechanical Ventilator 05/20/18 15:30 85 16 112/53 (72) 100 05/20/18 15:25 Room Air 05/20/18 15:22 Room Air 05/20/18 15:00 88 35 121/52 (75) 100 05/20/18 15:00 130/56 Intake and Output 05/20/18 05/21/18 18:59 06:59 Intake Total 459.42 ml 536.26 ml Output Total 360 ml 20 ml Balance 99.42 ml 516.26 ml IV Total 439.42 ml 536.26 ml Other 20 ml Output Urine Total 0 ml 20 ml Drainage Total 360 ml Hemodialysis UF 0 ml # Bowel Movements 5 3 Laboratory Tests Test 05/21/18 04:00 05/21/18 09:18 05/21/18 09:50 05/21/18 12:45 White Blood Count 11.0 K/UL (4.8-10.8) H Red Blood Count 3.37 M/UL (4.70-6.10) L Hemoglobin 10.1 G/DL (14.2-18.0) L Hematocrit 31.8 % (42.0-52.0) L Mean Corpuscular Volume 94 FL (80-99) Mean Corpuscular Hemoglobin 29.9 PG (27.0-31.0) Mean Corpuscular Hemoglobin Concent 31.7 G/DL (32.0-36.0) L Red Cell Distribution Width 14.9 % (11.6-14.8) H Platelet Count 458 K/UL (150-450) H Mean Platelet Volume 7.4 FL (6.5-10.1) Neutrophils (%) (Auto) % (45.0-75.0) Lymphocytes (%) (Auto) % (20.0-45.0) Monocytes (%) (Auto) % (1.0-10.0) Eosinophils (%) (Auto) % (0.0-3.0) Basophils (%) (Auto) % (0.0-2.0) Sodium Level 138 MMOL/L (136-145) Potassium Level 4.8 MMOL/L (3.5-5.1) Chloride Level 96 MMOL/L (98-107) L Carbon Dioxide Level 23 MMOL/L (21-32) Anion Gap 20 mmol/L (5-15) H Blood Urea Nitrogen 95 mg/dL (7-18) H Creatinine 6.1 MG/DL (0.55-1.30) H Estimat Glomerular Filtration Rate mL/min (>60) Glucose Level 160 MG/DL (74-106) H Uric Acid 7.7 MG/DL (2.6-7.2) H Calcium Level 8.3 MG/DL (8.5-10.1) L Phosphorus Level 8.7 MG/DL (2.5-4.9) H Magnesium Level 1.9 MG/DL (1.8-2.4) Total Bilirubin 0.8 MG/DL (0.2-1.0) Aspartate Amino Transf (AST/SGOT) 43 U/L (15-37) H Alanine Aminotransferase (ALT/SGPT) 15 U/L (12-78) Alkaline Phosphatase 117 U/L (46-116) H Troponin I 0.171 ng/mL (0.000-0.056) C-Reactive Protein, Quantitative < 0.4 mg/dL (0.00-0.90) Pro-B-Type Natriuretic Peptide 28889 pg/mL (0-125) H Total Protein 5.2 G/DL (6.4-8.2) L Albumin 1.8 G/DL (3.4-5.0) L Globulin 3.4 g/dL Albumin/Globulin Ratio 0.5 (1.0-2.7) L Digoxin Level 1.9 NG/ML (0.5-2.0) Arterial Blood pH 7.366 (7.350-7.450) Arterial Blood Partial Pressure CO2 29.1 mmHg (35.0-45.0) L Arterial Blood Partial Pressure O2 72.2 mmHg (75.0-100.0) L Arterial Blood HCO3 16.3 mmol/L (22.0-26.0) *L Arterial Blood Oxygen Saturation 92.4 % (95-100) L Arterial Blood Base Excess -7.9 (-2-2) L Luiz Test Positive Lactic Acid Level 7.50 mmol/L (0.4-2.0) H D-Dimer > 35.20 mg/L FEU Cortisol Pending Objective HEENT: PERRL/EOMI, Orally intubated Cardiovascular: Sinus tachycardia Respiratory/Chest: chest wall non-tender, lungs clear, normal breath sounds, no respiratory distress Abdomen: Post op.with one VELVET drain Extremities: No edema Right groin dialysis catheter Everett Stephenson MD May 21, 2018 14:37
--- NOTE | 2018-05-21 15:15 | NUR ---
NURSE NOTES: Reported D-Dimer results to Dr Chandler. PTT was ordered and Venous Duplex also ordered for all four extremities. Will wait for results and contact
--- NOTE | 2018-05-21 15:44 | Diagnostic Imaging Report ---
EXAM: XR Chest, 1 View CLINICAL HISTORY: F/U TECHNIQUE: Frontal view of the chest. COMPARISON: No relevant prior studies available. FINDINGS: Lungs: Reduced lung volumes. Retrocardiac atelectasis/consolidation. Pleural space: Unremarkable. No pneumothorax. Heart: Cardiomegaly. Mediastinum: Unremarkable. Bones/joints: No acute fracture. Tubes, lines and devices: Endotracheal tube approximately 6.5 cm above the jacy. Enteric tube in stomach. IMPRESSION: 1. Endotracheal tube approximately 6.5 cm above the jacy. 2. Reduced lung volumes. Retrocardiac atelectasis/consolidation.
--- NOTE | 2018-05-21 16:05 | NUR ---
NURSE NOTES: Dopamine titrated from 20 mcgs to 16 mcgs. VS 152/36. Patient is tolerating. Will monitor closely and titrate slowly. HR 106.
--- NOTE | 2018-05-21 16:45 | NUR ---
NURSE NOTES: Patient is continues to be lethargic. Patient responds to stimulus and opens eyes spontaneously. Patient does not appear in any acute distress. Oral care was performed. Patient is being monitored on the surveillance system monitor. VSS now. Patient is orally intubated with vent settings AC 16, TV 500, FIO2 100% and PEEP +5. Patient has OGT that is clamped and patient is NPO. Patient has ADILENE running Amiodarone running at 0.5 mg. Patient has Levo running at 30 mcgs, Florentino running 100 mcgs and Dopa at 12 mcgs due to hypotension via RFem Baljeet. Patient is s/p Ex Lap and small bowel resection with abdominal incision that has slight oozing from the middle belly that is new. Patient has L VELVET drain draining brown liquid that appears to be liquid stool. Patient has SCD's on BLE. Safety measures are in place with bed locked in the lowest position, side rails upx3. Will continue to monitor and follow plan of care.
--- NOTE | 2018-05-21 17:00 | NUR ---
NURSE NOTES: Dopamine titrated from 16 mcgs to 12 mcgs. VS 135/37. Patient tolerating the very slow titration. Will continue to monitor closely.
--- NOTE | 2018-05-21 17:23 | Pulmonology Progress Note ---
Assessment/Plan Assessment/Plan Pulmonary Progress Note Critical Care - Asmt/Plan Assessment/Plan: (1) Shock, Ventilator Dependant Respiratory Failure (2) Hypoxemia (3) Elevated d-dimer with negative CTA (4) Hypotension (5) Atrial fibrillation (6) ESRDon dialysis (7) ACS (8) Sacral decubitus ulcer, stage III (9) S/P cholecystectomy (10) Serratia sepsis (11) S/P exploratory laparotomy (12) Perforated viscus Assessment/Plan: - Advance ETT - Pressors PRN, started on Vasopressin -Post-op recs and wound care -Pain control/supportive care -Continue ventilatory support/settings reviewed and weaning -Titrate down FiO2 to keep SaO2 > 90%, continue PEEP 5 -HD per renal MVWF with extra session 05/18 -Titrate NE to keep MAP > 60 ABG better -rate control amio drip for now -Heparin held, resume when ok with surgery -Monitor for bleeding -Abx per ID, F/U Cx's -Decrease HC to 12.5 TID and taper -FC FU CXR post reintubation, ETT appropriate NPO Tf when cleared by surgery greater than 35 minhuts of cc time spent with the patient case dw nursing and consultants, pressors for MAP less than 65 mmhg. remains critically ill Critical Care - Objective Vital Signs Noted Subjective: sedated at this time ET tube exchanged today due to cuff leak did not wean today psych meds per psych no cp nv or bleeding no fever noted not getting oob NPO CXR: new cxr pending post reintubation ET-Tube: 7.5 ET Position: 22 Labs: Current Medications Medications (Trade) Dose Ordered Sig/Min Route PRN Reason Start Time Stop Time Status Last Admin Dose Admin Acetaminophen (Tylenol) 650 mg Q4H PRN ORAL Mild Pain/Temp > 100.5 05/12/18 15:30 06/09/18 15:29 05/13/18 16:39 Amiodarone HCl 900 mg/Dextrose 500 ml @ 0 mls/hr Q24H IV 05/18/18 19:30 05/19/18 19:29 05/18/18 23:00 Chlorhexidine Gluconate (Tatyana-Hex 2%) 1 applic DAILY@1999 TOPIC 05/12/18 20:00 06/11/18 19:59 05/18/18 21:38 Dextrose (Dextrose 50%) 25 ml Q30M PRN IV Hypoglycemia 05/16/18 17:30 06/15/18 17:29 Dextrose (Dextrose 50%) 50 ml Q30M PRN IV Hypoglycemia 05/16/18 17:30 06/15/18 17:29 Fentanyl Citrate 1000 mcg/Sodium Chloride 100 ml @ 0 mls/hr Q24H IV 05/18/18 09:00 05/25/18 08:59 05/19/18 10:00 Haloperidol Lactate (Haldol) 5 mg Q6H PRN IM Agitation 05/19/18 16:00 06/18/18 15:59 Hydralazine HCl (Apresoline) 10 mg Q4H PRN IV bp over 160 syst 05/14/18 12:00 06/13/18 11:59 Hydromorphone HCl (Dilaudid) 1 mg Q2H PRN IVP Severe Pain (Pain Scale 7-10) 05/16/18 10:00 05/21/18 09:14 05/19/18 02:19 Insulin Aspart (NovoLOG) BEFORE MEALS AND HS SUBQ 05/16/18 21:00 06/15/18 20:59 05/19/18 17:30 Lorazepam (Ativan 2mg/ml 1ml) 1 mg Q6H PRN IV For Anxiety 05/19/18 08:15 05/26/18 08:14 05/19/18 11:38 Metoclopramide HCl (Reglan) 10 mg Q6H PRN IVP Nausea & Vomiting 05/16/18 06:15 06/10/18 15:29 Midodrine (Pro-Amatine) 2.5 mg THREE TIMES A DAY PRN ORAL for bp below 100 syst 05/19/18 10:15 06/14/18 12:59 Norepinephrine Bitartrate 4 mg/ Dextrose 250 ml @ 0 mls/hr Q24H IV 05/16/18 08:00 06/15/18 07:59 05/17/18 04:35 Ondansetron HCl (Zofran) 4 mg Q6H PRN IVP Nausea & Vomiting 05/15/18 23:30 06/14/18 23:29 Pantoprazole (Protonix) 40 mg EVERY 12 HOURS IVP 05/12/18 21:00 06/10/18 20:59 05/19/18 11:37 Piperacillin Sod/ Tazobactam Sod 2.25 gm/Dextrose 55 ml @ 110 mls/hr Q8HR IVPB 05/19/18 12:00 05/24/18 11:59 05/19/18 11:38 Sertraline HCl (Zoloft) 50 mg DAILY ORAL 05/20/18 09:00 06/19/18 08:59 Laboratory Tests Test 05/19/18 04:00 05/19/18 07:40 White Blood Count 18.2 K/UL (4.8-10.8) H Red Blood Count 2.95 M/UL (4.70-6.10) L Hemoglobin 8.9 G/DL (14.2-18.0) L Hematocrit 27.3 % (42.0-52.0) L Mean Corpuscular Volume 93 FL (80-99) Mean Corpuscular Hemoglobin 30.3 PG (27.0-31.0) Mean Corpuscular Hemoglobin Concent 32.7 G/DL (32.0-36.0) Red Cell Distribution Width 14.9 % (11.6-14.8) H Platelet Count 322 K/UL (150-450) Mean Platelet Volume 7.8 FL (6.5-10.1) Neutrophils (%) (Auto) % (45.0-75.0) Lymphocytes (%) (Auto) % (20.0-45.0) Monocytes (%) (Auto) % (1.0-10.0) Eosinophils (%) (Auto) % (0.0-3.0) Basophils (%) (Auto) % (0.0-2.0) Differential Total Cells Counted 100 Neutrophils % (Manual) 92 % (45-75) H Lymphocytes % (Manual) 4 % (20-45) L Monocytes % (Manual) 3 % (1-10) Eosinophils % (Manual) 0 % (0-3) Basophils % (Manual) 0 % (0-2) Band Neutrophils 1 % (0-8) Platelet Estimate Adequate Platelet Morphology Normal Hypochromasia 1+ Anisocytosis 1+ Sodium Level 134 MMOL/L (136-145) L Potassium Level 4.7 MMOL/L (3.5-5.1) Chloride Level 97 MMOL/L (98-107) L Carbon Dioxide Level 26 MMOL/L (21-32) Anion Gap 11 mmol/L (5-15) Blood Urea Nitrogen 86 mg/dL (7-18) H Creatinine 5.3 MG/DL (0.55-1.30) H Estimat Glomerular Filtration Rate mL/min (>60) Glucose Level 165 MG/DL (74-106) H Lactic Acid Level 1.00 mmol/L (0.4-2.0) Uric Acid 7.1 MG/DL (2.6-7.2) Calcium Level 8.5 MG/DL (8.5-10.1) Phosphorus Level 8.6 MG/DL (2.5-4.9) H Magnesium Level 2.0 MG/DL (1.8-2.4) Total Bilirubin 0.5 MG/DL (0.2-1.0) Gamma Glutamyl Transpeptidase 83 U/L (5-85) Aspartate Amino Transf (AST/SGOT) 57 U/L (15-37) H Alanine Aminotransferase (ALT/SGPT) 24 U/L (12-78) Alkaline Phosphatase 157 U/L (46-116) H Troponin I 0.050 ng/mL (0.000-0.056) Pro-B-Type Natriuretic Peptide > 77785 pg/mL (0-125) H Total Protein 5.6 G/DL (6.4-8.2) L Albumin 1.8 G/DL (3.4-5.0) L Globulin 3.8 g/dL Albumin/Globulin Ratio 0.5 (1.0-2.7) L Arterial Blood pH 7.448 (7.350-7.450) Arterial Blood Partial Pressure CO2 34.6 mmHg (35.0-45.0) L Arterial Blood Partial Pressure O2 85.4 mmHg (75.0-100.0) Arterial Blood HCO3 23.4 mmol/L (22.0-26.0) Arterial Blood Oxygen Saturation 95.4 % (95-100) Arterial Blood Base Excess -0.3 (-2-2) Luiz Test Positive Subjective ROS Limited/Unobtainable: Yes Allergies: Coded Allergies: No Known Allergies (Unverified , 11/12/12) Objective Last 24 Hour Vital Signs Date Time Temp Pulse Resp B/P (MAP) Pulse Ox O2 Delivery O2 Flow Rate FiO2 05/21/18 17:00 135/37 05/21/18 17:00 135/37 05/21/18 17:00 106 29 135/37 (69) 100 05/21/18 16:31 106 27 40 05/21/18 16:30 106 27 118/30 (59) 100 05/21/18 16:00 Mechanical Ventilator Mechanical Ventilator 05/21/18 16:00 100 05/21/18 16:00 152/36 05/21/18 16:00 152/36 05/21/18 16:00 99.2 106 26 139/35 (69) 100 05/21/18 15:30 106 26 134/46 (75) 100 05/21/18 15:08 108 25 40 05/21/18 15:00 121/25 05/21/18 15:00 121/25 05/21/18 15:00 108 27 121/21 (54) 100 05/21/18 14:30 108 27 123/30 (61) 100 05/21/18 14:07 104/27 05/21/18 14:00 80/15 05/21/18 14:00 107 28 104/27 (52) 100 05/21/18 13:40 69/42 05/21/18 13:30 98.8 109 27 109/29 (55) 97 05/21/18 13:00 110 28 93/27 (49) 97 05/21/18 12:48 91 26 40 05/21/18 12:45 113 95/47 05/21/18 12:30 110 33 110/25 (53) 97 05/21/18 12:00 Mechanical Ventilator Mechanical Ventilator 05/21/18 12:00 113 05/21/18 12:00 69/43 05/21/18 12:00 113 31 95/47 (63) 97 05/21/18 12:00 100 05/21/18 11:30 113 31 84/65 (71) 97 05/21/18 11:29 90 28 40 05/21/18 11:00 99.8 111 30 91/27 (48) 97 05/21/18 11:00 83/41 05/21/18 10:30 113 31 76/52 (60) 97 05/21/18 10:00 116 32 71/39 (50) 97 05/21/18 10:00 64/22 05/21/18 09:30 113 30 44/26 (32) 99 05/21/18 09:18 88 29 40 05/21/18 09:07 90/47 05/21/18 09:00 85 35 89/45 (60) 99 05/21/18 09:00 90/47 05/21/18 08:30 90 36 92/51 (65) 99 05/21/18 08:00 Mechanical Ventilator Mechanical Ventilator 05/21/18 08:00 93 05/21/18 08:00 100.1 93 32 112/47 (68) 99 05/21/18 08:00 112/47 05/21/18 08:00 40 05/21/18 07:45 88/48 05/21/18 07:30 93 32 112/47 (68) 99 05/21/18 07:00 87 20 77/39 (52) 100 05/21/18 07:00 77/39 05/21/18 06:49 91 25 35 05/21/18 06:40 80/47 05/21/18 06:00 94 20 102/47 (65) 100 05/21/18 05:41 75/19 05/21/18 05:30 96 19 100/51 (67) 100 05/21/18 05:07 94 28 35 05/21/18 05:00 102/49 05/21/18 05:00 97 31 102/49 (66) 100 05/21/18 04:30 92 23 92/47 (62) 100 05/21/18 04:00 Mechanical Ventilator Mechanical Ventilator 05/21/18 04:00 71/33 05/21/18 04:00 40 05/21/18 04:00 101.3 97 26 71/33 (46) 97 05/21/18 03:30 97 23 83/43 (56) 100 05/21/18 03:05 95 27 35 05/21/18 03:00 98 23 86/48 (61) 100 05/21/18 03:00 86/43 05/21/18 02:30 100 28 92/46 (61) 100 05/21/18 02:16 75/19 05/21/18 02:00 98 21 103/51 (68) 100 05/21/18 01:30 98 21 110/59 (76) 100 05/21/18 01:00 94 25 81/39 (53) 100 05/21/18 00:38 90 27 35 05/21/18 00:30 85 28 78/39 (52) 100 05/21/18 00:00 60 05/21/18 00:00 98.4 89 25 94/41 (58) 100 05/21/18 00:00 Mechanical Ventilator Mechanical Ventilator 05/20/18 23:48 72 16 Mechanical Ventilator 50 05/20/18 23:30 88 25 97/41 (59) 100 05/20/18 23:00 88 19 86/41 (56) 100 05/20/18 23:00 86/41 05/20/18 22:35 88 25 35 05/20/18 22:30 88 19 96/42 (60) 100 05/20/18 22:00 80 05/20/18 22:00 111/44 05/20/18 22:00 86 19 111/44 (66) 100 05/20/18 21:30 86 21 116/48 (70) 100 05/20/18 21:21 83 24 35 05/20/18 21:00 77 22 95/41 (59) 100 05/20/18 21:00 95/41 05/20/18 20:30 84 18 111/52 (71) 100 05/20/18 20:00 Mechanical Ventilator Mechanical Ventilator 05/20/18 20:00 99.5 79 28 108/83 (91) 100 05/20/18 20:00 108/83 05/20/18 20:00 86 05/20/18 20:00 100 05/20/18 19:30 84 24 101/41 (61) 100 05/20/18 19:00 85 22 114/60 (78) 100 05/20/18 19:00 114/60 05/20/18 18:59 85 27 35 05/20/18 18:45 115/52 05/20/18 18:30 84 20 113/44 (67) 100 05/20/18 18:30 113/44 05/20/18 18:15 99/34 05/20/18 18:00 77 18 86/37 (53) 100 05/20/18 18:00 86/37 05/20/18 17:30 74 16 93/36 (55) 100 Intake and Output 05/20/18 05/21/18 19:00 07:00 Intake Total 413.82 ml 622.2 ml Output Total 360 ml 40 ml Balance 53.82 ml 582.2 ml IV Total 393.82 ml 622.2 ml Other 20 ml Output Urine Total 0 ml 40 ml Drainage Total 360 ml Hemodialysis UF 0 ml # Bowel Movements 5 3 Laboratory Tests 05/21/18 04:00: White Blood Count 11.0H, Red Blood Count 3.37L, Hemoglobin 10.1L, Hematocrit 31.8L, Mean Corpuscular Volume 94, Mean Corpuscular Hemoglobin 29.9, Mean Corpuscular Hemoglobin Concent 31.7L, Red Cell Distribution Width 14.9H, Platelet Count 458H, Mean Platelet Volume 7.4, Neutrophils (%) (Auto) , Lymphocytes (%) (Auto) , Monocytes (%) (Auto) , Eosinophils (%) (Auto) , Basophils (%) (Auto) , Sodium Level 138, Potassium Level 4.8, Chloride Level 96L , Carbon Dioxide Level 23, Anion Gap 20H, Blood Urea Nitrogen 95H, Creatinine 6.1H, Estimat Glomerular Filtration Rate , Glucose Level 160H, Uric Acid 7.7H, Calcium Level 8.3L, Phosphorus Level 8.7H, Magnesium Level 1.9, Total Bilirubin 0.8, Aspartate Amino Transf (AST/SGOT) 43H, Alanine Aminotransferase (ALT/SGPT) 15, Alkaline Phosphatase 117H, Troponin I 0.171H, C-Reactive Protein, Quantitative < 0.4, Pro-B-Type Natriuretic Peptide 71712M, Total Protein 5.2L, Albumin 1.8L, Globulin 3.4, Albumin/Globulin Ratio 0.5L, Digoxin Level 1.9 05/21/18 09:18: Arterial Blood pH 7.366, Arterial Blood Partial Pressure CO2 29.1L, Arterial Blood Partial Pressure O2 72.2L, Arterial Blood HCO3 16.3*L, Arterial Blood Oxygen Saturation 92.4L, Arterial Blood Base Excess -7.9L, Luiz Test Positive 05/21/18 09:50: Lactic Acid Level 7.50H 05/21/18 12:45: D-Dimer > 35.20H, Cortisol [Pending] 05/21/18 16:20: Activated Partial Thromboplast Time 46H Current Medications Medications (Trade) Dose Ordered Sig/Min Route PRN Reason Start Time Stop Time Status Last Admin Dose Admin Acetaminophen (Tylenol) 650 mg Q4H PRN ORAL Mild Pain/Temp > 100.5 05/12/18 15:30 06/09/18 15:29 05/20/18 20:53 Acetaminophen (Tylenol) 650 mg Q4H PRN RECTAL Mild Pain/Temp > 100.5 05/21/18 12:00 06/20/18 11:59 Amiodarone HCl 900 mg/Dextrose 500 ml @ 16.66 mls/ hr Q24H IV 05/21/18 07:30 05/22/18 07:29 05/21/18 08:15 Chlorhexidine Gluconate (Tatyana-Hex 2%) 1 applic DAILY@2000 TOPIC 05/12/18 20:00 06/11/18 19:59 05/20/18 20:52 Dextrose (Dextrose 50%) 25 ml Q30M PRN IV Hypoglycemia 05/16/18 17:30 06/15/18 17:29 Dextrose (Dextrose 50%) 50 ml Q30M PRN IV Hypoglycemia 05/16/18 17:30 06/15/18 17:29 Dopamine HCl/ Dextrose 250 ml @ 0 mls/hr Q24H IV 05/21/18 07:45 06/20/18 07:44 05/21/18 13:40 Haloperidol Lactate (Haldol) 5 mg Q6H PRN IM Agitation 05/19/18 16:00 06/18/18 15:59 Hydralazine HCl (Apresoline) 10 mg Q4H PRN IV bp over 160 syst 05/14/18 12:00 06/13/18 11:59 Hydrocortisone (Solu-CORTEF) 100 mg EVERY 8 HOURS IV 05/21/18 22:00 06/20/18 21:59 Hydromorphone HCl (Dilaudid) 1 mg Q2H PRN IVP Severe Pain (Pain Scale 7-10) 05/20/18 09:45 05/25/18 09:44 Insulin Aspart (NovoLOG) BEFORE MEALS AND HS SUBQ 05/16/18 21:00 06/15/18 20:59 05/21/18 14:20 Lorazepam (Ativan 2mg/ml 1ml) 1 mg Q6H PRN IV For Anxiety 05/19/18 08:15 05/26/18 08:14 05/21/18 12:53 Metoclopramide HCl (Reglan) 10 mg Q6H PRN IVP Nausea & Vomiting 05/16/18 06:15 06/10/18 15:29 Micafungin Sodium 100 mg/Sodium Chloride 110 ml @ 110 mls/hr Q24H IVPB 05/21/18 12:00 05/28/18 11:59 05/21/18 14:06 Midodrine (Pro-Amatine) 2.5 mg THREE TIMES A DAY PRN ORAL for bp below 100 syst 05/19/18 10:15 06/14/18 12:59 Norepinephrine Bitartrate 8 mg/ Dextrose 500 ml @ 0 mls/hr Q24H IV 05/21/18 14:30 06/20/18 14:29 05/21/18 14:07 Ondansetron HCl (Zofran) 4 mg Q6H PRN IVP Nausea & Vomiting 05/15/18 23:30 06/14/18 23:29 Pantoprazole (Protonix) 40 mg EVERY 12 HOURS IVP 05/12/18 21:00 06/10/18 20:59 05/21/18 10:30 Phenylephrine HCl 50 mg/Dextrose 250 ml @ 0 mls/hr Q24H IV 05/21/18 11:00 06/20/18 10:59 05/21/18 12:45 Piperacillin Sod/ Tazobactam Sod 2.25 gm/Dextrose 55 ml @ 110 mls/hr Q8HR IVPB 05/19/18 12:00 05/24/18 11:59 05/21/18 15:48 Denis Hinkle MD May 21, 2018 17:23
[2018-05-21] MEDS ORDERED: NS 275ml ONE (17:48)
[2018-05-21] MEDS ORDERED: Heparin 5000 units/ml inj IV ONE (19:00)
[2018-05-21] MEDS ORDERED: Heparin 25,000u/D5W 500ml 500 ML IV SCH (19:15)
--- NOTE | 2018-05-21 19:47 | NUR ---
HAND-OFF: Report given to MINGO Gage. Patient has just completed Venous Duplex which confirms a ADILENE thrombis. PM RN to report to ordering MD. Heparin already ordered. Patient not in any acute distress and VSS.
[2018-05-21 19:55] LABS: HEMATOCRIT 33.1 % (42.0-52.0); HEMOGLOBIN 10.3 G/DL (14.2-18.0); MEAN CORPUSCULAR VOLUME 97 FL (80-99); PLATELET COUNT 420 K/UL (150-450); RED BLOOD COUNT 3.42 M/UL (4.70-6.10); RED CELL DISTRIBUTION WIDTH 15.8 % (11.6-14.8)
[2018-05-21 19:57] LABS: WHITE BLOOD COUNT 22.3 K/UL (4.8-10.8)
[2018-05-21] MEDS: Dyna-Hex 2% Top Sol 2oz TOPIC SCH (20:20)
--- NOTE | 2018-05-21 20:28 | Diagnostic Imaging Report ---
EXAM: US Duplex Bilateral Upper Extremity Veins CLINICAL HISTORY: Evaluate for DVT TECHNIQUE: Real-time duplex ultrasound scan of the bilateral upper extremity veins integrating B-mode two-dimensional vascular structure, Doppler spectral analysis, color flow Doppler imaging and compression. COMPARISON: No relevant prior studies available. FINDINGS: Right deep veins: Unremarkable. Normal compression and normal response to augmentation. Right superficial veins: No detectable flow in the noncompressible right cephalic vein. Left deep veins: Unremarkable. Normal compression and normal response to augmentation. Left superficial veins: Unremarkable. No thrombus in the visualized left basilic and cephalic veins. Soft tissues: Indeterminate 1.6 cm anechoic avascular cystic structure below the antecubital fossa. IMPRESSION: No DVT. Right cephalic (superficial) vein thrombus.
--- NOTE | 2018-05-21 21:00 | NUR ---
NURSE NOTES: dr fragoso called for the result of duplex scan which is incompressible cephalic vein proximal to distal on right upper ext echogenic thrombus, also notified of wbc of 22.3 and lactic acid 5.80, no neew orders
--- NOTE | 2018-05-21 21:00 | NUR ---
NURSE NOTES: Received pt and report from MINGO Obrien. Patient is observed to be very lethargic, responds to stimulus, opens eyes spontaneously, responds with very slight head nods yes and no. Patient appears in no acute distress. Oral care was performed. Patient is being monitored on the school lunch monitor. VS 118/35, HR 104, RR 28 SPO2 100%. Patient is orally intubated with vent settingsETT 7.5, 25cm LL, AC 16, TV 500, FIO2 100% and PEEP +5. Patient has OGT clamped. Residual was checked and 30 ml was pulled. Patient is now NPO. Patient is anuric. Patient has ADILENE and RFA IV sites that patent and intact with Amiodarone running at 0.5 mg. Patient has Levo running at 30 mcg/min, Dopamine 12mcg/kg/min, Florentino at 100mcg/min, due to hypotension via right femoral Donis. Also to start Heparin drip at 18 units/kg/hr. Patient is s/p Ex Lap and small bowel resection with abdominal dressing that is dry and intact. Patient has L VELVET drain draining brown liquid. Patient has SCD's on BLE. Safety measures are in place with bed locked in the lowest position, side rails upx3. Will continue to monitor and follow plan of care.
--- NOTE | 2018-05-21 22:05 | Diagnostic Imaging Report ---
EXAM: XR Chest, 1 View CLINICAL HISTORY: Intubated TECHNIQUE: Frontal view of the chest. COMPARISON: 06/17/18 1518 FINDINGS: Lungs: Stable hypoventilatory lungs. Bibasilar atelectasis or consolidation. Pleural space: Probable small bilateral pleural effusions. No pneumothorax. Heart: Unremarkable. No cardiomegaly. Mediastinum: Unremarkable. Bones/joints: No acute osseous abnormality. Tubes, lines and devices: Endotracheal tube terminates approximately 5. 3 cm above the jacy. Esophagogastric tube traverses the diaphragm and extends off the [id number]. Telemetry leads overlie the patient. IMPRESSION: No significant interval change since prior exam.
[2018-05-21] MEDS: Hydrocortisone 100mg Inj IV SCH (22:06)
--- NOTE | 2018-05-21 22:17 | General Progress Note ---
Assessment/Plan Problem List: (1) ACS (acute coronary syndrome) ICD Codes: I24.9 - Acute ischemic heart disease, unspecified SNOMED: 081339136 (2) ESRD (end stage renal disease) on dialysis ICD Codes: N18.6 - End stage renal disease; Z99.2 - Dependence on renal dialysis SNOMED: 621731203 (3) Depression ICD Codes: F32.9 - Major depressive disorder, single episode, unspecified SNOMED: 23613052 (4) Anemia ICD Codes: D64.9 - Anemia, unspecified SNOMED: 122123894 (5) Sacral decubitus ulcer, stage III ICD Codes: L89.153 - Pressure ulcer of sacral region, stage 3 SNOMED: 045719327, 030078871 (6) Major depression ICD Codes: F32.9 - Major depressive disorder, single episode, unspecified SNOMED: 865329829 (7) anxiety disorder (8) Atrial fibrillation ICD Codes: I48.91 - Unspecified atrial fibrillation SNOMED: 31260263 (9) Hypoxemia ICD Codes: R09.02 - Hypoxemia SNOMED: 885673720 (10) Hypotension ICD Codes: I95.9 - Hypotension, unspecified SNOMED: 66715697 (11) Shock ICD Codes: R57.9 - Shock, unspecified SNOMED: 65630160 (12) Elevated d-dimer ICD Codes: R79.89 - Other specified abnormal findings of blood chemistry SNOMED: 890288301 (13) encephalopathy due to metabolic factor Status: deteriorating Assessment/Plan respiratory failure intubated on maxium amount of pressor critical condition in septic shock getting worse esrd on hd s/p septic shock pna s/p lap choly w perforation (in different hospital) spoke w dr fragoso Subjective Allergies: Coded Allergies: No Known Allergies (Unverified , 11/12/12) Objective Last 24 Hour Vital Signs Date Time Temp Pulse Resp B/P (MAP) Pulse Ox O2 Delivery O2 Flow Rate FiO2 05/21/18 20:53 103 27 40 05/21/18 20:48 103 25 40 05/21/18 19:20 127/45 05/21/18 18:00 102 28 112/20 (50) 100 05/21/18 17:30 101 29 115/20 (51) 100 05/21/18 17:00 135/37 05/21/18 17:00 135/37 05/21/18 17:00 106 29 135/37 (69) 100 05/21/18 16:31 106 27 40 05/21/18 16:30 106 27 118/30 (59) 100 05/21/18 16:00 Mechanical Ventilator Mechanical Ventilator 05/21/18 16:00 100 05/21/18 16:00 152/36 05/21/18 16:00 152/36 05/21/18 16:00 99.2 106 26 139/35 (69) 100 05/21/18 15:30 106 26 134/46 (75) 100 05/21/18 15:08 108 25 40 05/21/18 15:00 121/25 05/21/18 15:00 121/25 05/21/18 15:00 108 27 121/21 (54) 100 05/21/18 14:30 108 27 123/30 (61) 100 05/21/18 14:07 104/27 05/21/18 14:00 80/15 05/21/18 14:00 107 28 104/27 (52) 100 05/21/18 13:40 69/42 05/21/18 13:30 98.8 109 27 109/29 (55) 97 05/21/18 13:00 110 28 93/27 (49) 97 05/21/18 12:48 91 26 40 05/21/18 12:45 113 95/47 05/21/18 12:30 110 33 110/25 (53) 97 05/21/18 12:00 Mechanical Ventilator Mechanical Ventilator 05/21/18 12:00 113 05/21/18 12:00 69/43 05/21/18 12:00 113 31 95/47 (63) 97 05/21/18 12:00 100 05/21/18 11:30 113 31 84/65 (71) 97 05/21/18 11:29 90 28 40 05/21/18 11:00 99.8 111 30 91/27 (48) 97 05/21/18 11:00 83/41 05/21/18 10:30 113 31 76/52 (60) 97 05/21/18 10:00 116 32 71/39 (50) 97 05/21/18 10:00 64/22 05/21/18 09:30 113 30 44/26 (32) 99 05/21/18 09:18 88 29 40 05/21/18 09:07 90/47 05/21/18 09:00 85 35 89/45 (60) 99 05/21/18 09:00 90/47 05/21/18 08:30 90 36 92/51 (65) 99 05/21/18 08:00 Mechanical Ventilator Mechanical Ventilator 05/21/18 08:00 93 05/21/18 08:00 100.1 93 32 112/47 (68) 99 05/21/18 08:00 112/47 05/21/18 08:00 40 05/21/18 07:45 88/48 05/21/18 07:30 93 32 112/47 (68) 99 05/21/18 07:00 87 20 77/39 (52) 100 05/21/18 07:00 77/39 05/21/18 06:49 91 25 35 05/21/18 06:40 80/47 05/21/18 06:00 94 20 102/47 (65) 100 05/21/18 05:41 75/19 05/21/18 05:30 96 19 100/51 (67) 100 05/21/18 05:07 94 28 35 05/21/18 05:00 102/49 05/21/18 05:00 97 31 102/49 (66) 100 05/21/18 04:30 92 23 92/47 (62) 100 05/21/18 04:00 Mechanical Ventilator Mechanical Ventilator 05/21/18 04:00 71/33 05/21/18 04:00 40 05/21/18 04:00 101.3 97 26 71/33 (46) 97 05/21/18 03:30 97 23 83/43 (56) 100 05/21/18 03:05 95 27 35 05/21/18 03:00 98 23 86/48 (61) 100 05/21/18 03:00 86/43 05/21/18 02:30 100 28 92/46 (61) 100 05/21/18 02:16 75/19 05/21/18 02:00 98 21 103/51 (68) 100 05/21/18 01:30 98 21 110/59 (76) 100 05/21/18 01:00 94 25 81/39 (53) 100 05/21/18 00:38 90 27 35 05/21/18 00:30 85 28 78/39 (52) 100 05/21/18 00:00 60 05/21/18 00:00 98.4 89 25 94/41 (58) 100 05/21/18 00:00 Mechanical Ventilator Mechanical Ventilator 05/20/18 23:48 72 16 Mechanical Ventilator 50 05/20/18 23:30 88 25 97/41 (59) 100 05/20/18 23:00 88 19 86/41 (56) 100 05/20/18 23:00 86/41 05/20/18 22:35 88 25 35 05/20/18 22:30 88 19 96/42 (60) 100 Intake and Output 05/20/18 05/21/18 19:00 07:00 Intake Total 413.82 ml 622.2 ml Output Total 360 ml 40 ml Balance 53.82 ml 582.2 ml IV Total 393.82 ml 622.2 ml Other 20 ml Output Urine Total 0 ml 40 ml Drainage Total 360 ml Hemodialysis UF 0 ml # Bowel Movements 5 3 Laboratory Tests 05/21/18 04:00: White Blood Count 11.0H, Red Blood Count 3.37L, Hemoglobin 10.1L, Hematocrit 31.8L, Mean Corpuscular Volume 94, Mean Corpuscular Hemoglobin 29.9, Mean Corpuscular Hemoglobin Concent 31.7L, Red Cell Distribution Width 14.9H, Platelet Count 458H, Mean Platelet Volume 7.4, Neutrophils (%) (Auto) , Lymphocytes (%) (Auto) , Monocytes (%) (Auto) , Eosinophils (%) (Auto) , Basophils (%) (Auto) , Sodium Level 138, Potassium Level 4.8, Chloride Level 96L , Carbon Dioxide Level 23, Anion Gap 20H, Blood Urea Nitrogen 95H, Creatinine 6.1H, Estimat Glomerular Filtration Rate , Glucose Level 160H, Uric Acid 7.7H, Calcium Level 8.3L, Phosphorus Level 8.7H, Magnesium Level 1.9, Total Bilirubin 0.8, Aspartate Amino Transf (AST/SGOT) 43H, Alanine Aminotransferase (ALT/SGPT) 15, Alkaline Phosphatase 117H, Troponin I 0.171H, C-Reactive Protein, Quantitative < 0.4, Pro-B-Type Natriuretic Peptide 16061L, Total Protein 5.2L, Albumin 1.8L, Globulin 3.4, Albumin/Globulin Ratio 0.5L, Digoxin Level 1.9 05/21/18 09:18: Arterial Blood pH 7.366, Arterial Blood Partial Pressure CO2 29.1L, Arterial Blood Partial Pressure O2 72.2L, Arterial Blood HCO3 16.3*L, Arterial Blood Oxygen Saturation 92.4L, Arterial Blood Base Excess -7.9L, Luiz Test Positive 05/21/18 09:50: Lactic Acid Level 7.50H 05/21/18 12:45: D-Dimer > 35.20H, Cortisol [Pending] 05/21/18 16:20: Activated Partial Thromboplast Time 46H 05/21/18 16:45: Lactic Acid Level 5.60H 05/21/18 19:45: White Blood Count 22.3#*H, Red Blood Count 3.42L, Hemoglobin 10.3L, Hematocrit 33.1L, Mean Corpuscular Volume 97, Mean Corpuscular Hemoglobin 30.2, Mean Corpuscular Hemoglobin Concent 31.2L, Red Cell Distribution Width 15.8H, Platelet Count 420, Mean Platelet Volume 8.4, Neutrophils (%) (Auto) , Lymphocytes (%) (Auto) , Monocytes (%) (Auto) , Eosinophils (%) (Auto) , Basophils (%) (Auto) , Differential Total Cells Counted 100, Neutrophils % ( Manual) 51, Lymphocytes % (Manual) 12L, Monocytes % (Manual) 4, Eosinophils % ( Manual) 0, Basophils % (Manual) 0, Band Neutrophils 33H, Platelet Estimate Adequate, Platelet Morphology See comment, Giant Platelets Occasional, Hypochromasia 1+, Anisocytosis 1+ Height (Feet): 5 Height (Inches): 4.00 Weight (Pounds): 183 Samantha Head MD May 21, 2018 22:17
--- NOTE | 2018-05-21 22:24 | General Progress Note ---
Assessment/Plan Assessment/Plan # Anemia of chronic disease due to underlying chronic medical issues, multifactorial. --> anemia w/u reviewed --> Monitor for stability --> trend 10.3-->7.6-->8.9-->10.3 # Small bowel perforation, s/p bowel resection, with Gram negative sepsis is on abx In ICU s/p Small bowel resection on Amiodarone and Levophed drip. HR around 100. --> on broad spectrum abx --> on vanc/cefepime as per id--> now changed to ceftriaxone --> s/p sb resection on 05/15, appreciate surg recs --> on pressors as well,++ vent # Lower extremity edema with an elevated BNP in a patient with renal failure on hemodialysis. --> on HD per Dr. Arroyo. --> currently has improved # Atrial fib w rvr/flutter, and Chest pain, rule out acs --> Cardiology is following, appreciate recs, echo was reviewed --> Currently denies any chest pain, completely rule out ACS --> EKG showed old inferior and anterior wall VA, but no ischemia. 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 --> Nephro is following, appreciate recs. HD appeox 3x a week --> On intermittent HD Subjective Allergies: Coded Allergies: No Known Allergies (Unverified , 11/12/12) Subjective 05/12: Pt resting in bed. No acute events. H/H stable. On abx. VS stable. 05/13: on pressors, on hep gtt, on steriods, abx, got hd, felice catheter in place : CT-A was negative, hep gtt as per cards, abg reviewed, moaning on exam, on ceftriaxone 05/15 :Pt remains in ICU. Currently undergoing HD. Pt on 2 cardiac drips for elevated Bp. WBC remains elevated. H/H stable. 05/16: s/p sb resection, In ICU s/p Small bowel resection on Amiodarone and Levophed drip. HR around 100. 05/17: Orally intubated on Ac 16, Vt 500, P 5 fio2 30%. Pt continues NPO at this time. Right upper arm and right FA IV sites patent and intact at this time. Amio gtt running 05/18: Pt remains in ICU. Pt for STAT HD. WBC remains elevated, afebrile. 05/19: getting hd periodically, no other events, vent to be weaned, labs reviewed, on dilaudid, ativan and fentanyl per pulm 05/21: prognosis is more guarded, no events to report, no f/c, but on two pressors now, on hep gtt for antonio thrombosis, hd as well 3x/week Objective Last 24 Hour Vital Signs Date Time Temp Pulse Resp B/P (MAP) Pulse Ox O2 Delivery O2 Flow Rate FiO2 05/21/18 20:53 103 27 40 05/21/18 20:48 103 25 40 05/21/18 19:20 127/45 05/21/18 18:00 102 28 112/20 (50) 100 05/21/18 17:30 101 29 115/20 (51) 100 05/21/18 17:00 135/37 05/21/18 17:00 135/37 05/21/18 17:00 106 29 135/37 (69) 100 05/21/18 16:31 106 27 40 05/21/18 16:30 106 27 118/30 (59) 100 05/21/18 16:00 Mechanical Ventilator Mechanical Ventilator 05/21/18 16:00 100 05/21/18 16:00 152/36 05/21/18 16:00 152/36 05/21/18 16:00 99.2 106 26 139/35 (69) 100 05/21/18 15:30 106 26 134/46 (75) 100 05/21/18 15:08 108 25 40 05/21/18 15:00 121/25 05/21/18 15:00 121/25 05/21/18 15:00 108 27 121/21 (54) 100 05/21/18 14:30 108 27 123/30 (61) 100 05/21/18 14:07 104/27 05/21/18 14:00 80/15 05/21/18 14:00 107 28 104/27 (52) 100 05/21/18 13:40 69/42 05/21/18 13:30 98.8 109 27 109/29 (55) 97 05/21/18 13:00 110 28 93/27 (49) 97 05/21/18 12:48 91 26 40 05/21/18 12:45 113 95/47 05/21/18 12:30 110 33 110/25 (53) 97 05/21/18 12:00 Mechanical Ventilator Mechanical Ventilator 05/21/18 12:00 113 05/21/18 12:00 69/43 05/21/18 12:00 113 31 95/47 (63) 97 05/21/18 12:00 100 05/21/18 11:30 113 31 84/65 (71) 97 05/21/18 11:29 90 28 40 05/21/18 11:00 99.8 111 30 91/27 (48) 97 05/21/18 11:00 83/41 05/21/18 10:30 113 31 76/52 (60) 97 05/21/18 10:00 116 32 71/39 (50) 97 05/21/18 10:00 64/22 05/21/18 09:30 113 30 44/26 (32) 99 05/21/18 09:18 88 29 40 05/21/18 09:07 90/47 05/21/18 09:00 85 35 89/45 (60) 99 05/21/18 09:00 90/47 05/21/18 08:30 90 36 92/51 (65) 99 05/21/18 08:00 Mechanical Ventilator Mechanical Ventilator 05/21/18 08:00 93 05/21/18 08:00 100.1 93 32 112/47 (68) 99 05/21/18 08:00 112/47 05/21/18 08:00 40 05/21/18 07:45 88/48 05/21/18 07:30 93 32 112/47 (68) 99 05/21/18 07:00 87 20 77/39 (52) 100 05/21/18 07:00 77/39 05/21/18 06:49 91 25 35 05/21/18 06:40 80/47 05/21/18 06:00 94 20 102/47 (65) 100 05/21/18 05:41 75/19 05/21/18 05:30 96 19 100/51 (67) 100 05/21/18 05:07 94 28 35 05/21/18 05:00 102/49 05/21/18 05:00 97 31 102/49 (66) 100 05/21/18 04:30 92 23 92/47 (62) 100 05/21/18 04:00 Mechanical Ventilator Mechanical Ventilator 05/21/18 04:00 71/33 05/21/18 04:00 40 05/21/18 04:00 101.3 97 26 71/33 (46) 97 05/21/18 03:30 97 23 83/43 (56) 100 05/21/18 03:05 95 27 35 05/21/18 03:00 98 23 86/48 (61) 100 05/21/18 03:00 86/43 05/21/18 02:30 100 28 92/46 (61) 100 05/21/18 02:16 75/19 05/21/18 02:00 98 21 103/51 (68) 100 05/21/18 01:30 98 21 110/59 (76) 100 05/21/18 01:00 94 25 81/39 (53) 100 05/21/18 00:38 90 27 35 05/21/18 00:30 85 28 78/39 (52) 100 05/21/18 00:00 60 05/21/18 00:00 98.4 89 25 94/41 (58) 100 05/21/18 00:00 Mechanical Ventilator Mechanical Ventilator 05/20/18 23:48 72 16 Mechanical Ventilator 50 05/20/18 23:30 88 25 97/41 (59) 100 05/20/18 23:00 88 19 86/41 (56) 100 05/20/18 23:00 86/41 05/20/18 22:35 88 25 35 05/20/18 22:30 88 19 96/42 (60) 100 Intake and Output 05/20/18 05/21/18 19:00 07:00 Intake Total 413.82 ml 622.2 ml Output Total 360 ml 40 ml Balance 53.82 ml 582.2 ml IV Total 393.82 ml 622.2 ml Other 20 ml Output Urine Total 0 ml 40 ml Drainage Total 360 ml Hemodialysis UF 0 ml # Bowel Movements 5 3 Laboratory Tests 05/21/18 04:00: White Blood Count 11.0H, Red Blood Count 3.37L, Hemoglobin 10.1L, Hematocrit 31.8L, Mean Corpuscular Volume 94, Mean Corpuscular Hemoglobin 29.9, Mean Corpuscular Hemoglobin Concent 31.7L, Red Cell Distribution Width 14.9H, Platelet Count 458H, Mean Platelet Volume 7.4, Neutrophils (%) (Auto) , Lymphocytes (%) (Auto) , Monocytes (%) (Auto) , Eosinophils (%) (Auto) , Basophils (%) (Auto) , Sodium Level 138, Potassium Level 4.8, Chloride Level 96L , Carbon Dioxide Level 23, Anion Gap 20H, Blood Urea Nitrogen 95H, Creatinine 6.1H, Estimat Glomerular Filtration Rate , Glucose Level 160H, Uric Acid 7.7H, Calcium Level 8.3L, Phosphorus Level 8.7H, Magnesium Level 1.9, Total Bilirubin 0.8, Aspartate Amino Transf (AST/SGOT) 43H, Alanine Aminotransferase (ALT/SGPT) 15, Alkaline Phosphatase 117H, Troponin I 0.171H, C-Reactive Protein, Quantitative < 0.4, Pro-B-Type Natriuretic Peptide 74493L, Total Protein 5.2L, Albumin 1.8L, Globulin 3.4, Albumin/Globulin Ratio 0.5L, Digoxin Level 1.9 05/21/18 09:18: Arterial Blood pH 7.366, Arterial Blood Partial Pressure CO2 29.1L, Arterial Blood Partial Pressure O2 72.2L, Arterial Blood HCO3 16.3*L, Arterial Blood Oxygen Saturation 92.4L, Arterial Blood Base Excess -7.9L, Luiz Test Positive 05/21/18 09:50: Lactic Acid Level 7.50H 05/21/18 12:45: D-Dimer > 35.20H, Cortisol [Pending] 05/21/18 16:20: Activated Partial Thromboplast Time 46H 05/21/18 16:45: Lactic Acid Level 5.60H 05/21/18 19:45: White Blood Count 22.3#*H, Red Blood Count 3.42L, Hemoglobin 10.3L, Hematocrit 33.1L, Mean Corpuscular Volume 97, Mean Corpuscular Hemoglobin 30.2, Mean Corpuscular Hemoglobin Concent 31.2L, Red Cell Distribution Width 15.8H, Platelet Count 420, Mean Platelet Volume 8.4, Neutrophils (%) (Auto) , Lymphocytes (%) (Auto) , Monocytes (%) (Auto) , Eosinophils (%) (Auto) , Basophils (%) (Auto) , Differential Total Cells Counted 100, Neutrophils % ( Manual) 51, Lymphocytes % (Manual) 12L, Monocytes % (Manual) 4, Eosinophils % ( Manual) 0, Basophils % (Manual) 0, Band Neutrophils 33H, Platelet Estimate Adequate, Platelet Morphology See comment, Giant Platelets Occasional, Hypochromasia 1+, Anisocytosis 1+ Height (Feet): 5 Height (Inches): 4.00 Weight (Pounds): 183 Objective PHYSICAL EXAMINATION: VITAL SIGNS: Have been reviewed HEENT: PERRLA. NECK: Supple. No lymphadenopathy. CHEST: ++ intubated CARDIOVASCULAR: Tachycardic. GASTROINTESTINAL: Distended. Positive bowel sounds. Nontender. No organomegaly. + ryan drain in place EXTREMITY: A 1+ edema. Reflexes are equal on both sides. Reinaldo Leon MD May 21, 2018 22:24
--- NOTE | 2018-05-21 23:00 | NUR ---
NURSE NOTES: Pt's resting in bed. VS 102/14, HR 102, R 27, SpO2 100. Current on Levophed 16mcg/min, Dopamin 10mcg/kg/min, amiodarone drip due to Afib at 0.5mg/min. Heparin drip at 18units/kg/hr due to acute RIGHT arm DVT. Will continue to monitor. Addendum: 05/22/18 at 0322 by OSWALDO AREVALO RN RN Levophed at 26mcg/min
[2018-05-22] VITALS (44 sets, daily range): BP systolic 64–155; BP diastolic 14–89
[2018-05-22] MEDS: DOPamine 400mg/250ml 250 ML IV SCH (00:11)
[2018-05-22] MEDS: Norepinephrine Bitartrate 8 MG in D5W 500ml 492 ML IV SCH ×3 (00:11→23:46)
--- NOTE | 2018-05-22 01:00 | NUR ---
NURSE NOTES: Pt's resting in bed, in no acute distress. VS 115/21, HR 101, R 27, SpO2 100. Current on Levophed 24mcg/min, Dopamin 10mcg/kg/min, amiodarone drip due to Afib at 0.5mg/min. Heparin drip at 18units/kg/hr due to acute RIGHT arm DVT. Will continue to monitor.
--- NOTE | 2018-05-22 03:00 | NUR ---
NURSE NOTES: Pt's resting in bed, in no distress. VS stable. Will continue to monitor.
[2018-05-22 04:55] LABS: HEMATOCRIT 29.4 % (42.0-52.0); HEMOGLOBIN 9.5 G/DL (14.2-18.0); MEAN CORPUSCULAR VOLUME 94 FL (80-99); PLATELET COUNT 423 K/UL (150-450); RED BLOOD COUNT 3.13 M/UL (4.70-6.10); RED CELL DISTRIBUTION WIDTH 15.1 % (11.6-14.8); WHITE BLOOD COUNT 19.7 K/UL (4.8-10.8)
--- NOTE | 2018-05-22 05:00 | NUR ---
NURSE NOTES: Pt's resting in bed, in no distress. VS stable. Will continue to monitor.
[2018-05-22 05:28] LABS: ANION GAP 22 mmol/L (5-15); BLOOD UREA NITROGEN 106 mg/dL (7-18); CARBON DIOXIDE 17 MMOL/L (21-32); CHLORIDE 86 MMOL/L (98-107); POTASSIUM 5.4 MMOL/L (3.5-5.1); SODIUM 125 MMOL/L (136-145)
[2018-05-22 05:29] LABS: ALANINE AMINOTRANSFERASE 23 U/L (12-78); ALBUMIN 1.7 G/DL (3.4-5.0); ALBUMIN/GLOBULIN RATIO 0.5 (1.0-2.7); ALKALINE PHOSPHATASE 98 U/L (46-116); ASPARTATE AMINO TRANSFERASE 77 U/L (15-37); BILIRUBIN,TOTAL 0.7 MG/DL (0.2-1.0); CALCIUM 7.5 MG/DL (8.5-10.1); CREATINE KINASE 196 U/L (26-308); CREATININE 6.7 MG/DL (0.55-1.30); GAMMA GLUTAMYL TRANSPEPTIDASE 51 U/L (5-85); PHOSPHORUS 10.8 MG/DL (2.5-4.9)
[2018-05-22] MEDS: Piperacillin/Tazobactam 2.25 GM in D5W 55 ML IVPB SCH ×3 (06:28→21:57)
[2018-05-22] MEDS: Hydrocortisone 100mg Inj IV SCH ×3 (06:29→21:57)
[2018-05-22] MEDS: NovoLOG Insulin Flexpen SUBQ SCH ×4 (06:34→20:53)
--- NOTE | 2018-05-22 06:42 | NUR ---
RESPIRATORY NOTE:Received pt on ETT 7.5 @ 25cm lips line with current vent setting: AC 16-500ml-50%FiO2- peep of 5, saturates 100%. Titrated FiO2 down to 35%, saturates still at 100%. RN Mario notified. Pt endotracheal tube is patent and secured via anchor fast. Suctioned pt prn. No SOB or resp distress noted. Vent alarms are on and audible, Vent is plugged into red outlet, ambu bag is at bedside. Will continue to monitor pt progress.
[2018-05-22] MEDS ORDERED: Heparin 25,000u/D5W 500ml 500 ML IV SCH ×2 (07:00→23:15)
--- NOTE | 2018-05-22 07:30 | NUR ---
NURSE NOTES: Received pt and report from MINGO Martin. Patient is observed to be very lethargic, responds to stimulus, opens eyes spontaneously, responds with very slight head nods yes and no. VS 118/35, HR 93, RR 28 SPO2 100%. Patient is orally intubated with vent settings ETT 7.5, 25cm LL, AC 16, TV 500, FIO2 100% and PEEP 5. Patient has OGT clamped. Residual was checked and 30 ml was pulled. Patient is NPO. Patient is anuric. Patient has ADILENE and RFA IV sites that patent and intact with Amiodarone running at 0.5 mg. Patient has Levo running at 14 mcg/min, Dopamine 8mcg/kg/min, Heparin drip at 15 units/kg/hr. Patient is s/p Ex Lap and small bowel resection with abdominal dressing that is dry and intact. Patient has L VELVET drain draining brown liquid. Patient has SCD's on BLE. Safety measures are in place with bed locked in the lowest position, side rails upx3. Will continue to monitor and follow plan of care.
--- NOTE | 2018-05-22 07:30 | NUR ---
HAND-OFF: Report given to MINGO Avilez.
--- NOTE | 2018-05-22 08:55 | NUR ---
RESPIRATORY NOTE: Started weaning pt on SIMV 10- PS 12- 30% FiO2 per weaning order, pt didn't tolerate well, tachypneic RR> 40bp, low Vt <250ml, breathing labor. Put pt back on the AC mode with the same previous setting. Notified MINGO Avilez. Will continue to monitor pt closely.
[2018-05-22] MEDS: Pantoprazole Inj IVP SCH ×2 (09:00→20:52)
--- NOTE | 2018-05-22 09:06 | General Progress Note ---
Assessment/Plan Assessment/Plan (1) Abdominal pain (2) S/p Lap Cholecystectomy (3) Encephalopathy possible septic shock (4) ESRD on hemodialysis (5) S/p emergent exploratory laboratory small bowel resection omentectomy due to small bowel perforation in distal ileum Patient to be continued on Dilaudid and Tylenol. Parameters to be continued. D/w Dr. Busby and he concurred. Subjective Date patient seen: May 22, 2018 Time patient seen: 07:45 - am ROS Limited/Unobtainable: Yes Allergies: Coded Allergies: No Known Allergies (Unverified , 11/12/12) Subjective Patient is still intubated and in bed showing no signs of pain at this time. No Dilaudid has been administered in the last 24hrs. Objective Last 24 Hour Vital Signs Date Time Temp Pulse Resp B/P (MAP) Pulse Ox O2 Delivery O2 Flow Rate FiO2 05/22/18 09:00 100 05/22/18 08:55 93 31 30 05/22/18 08:50 89 42 30 05/22/18 08:45 87 27 30 05/22/18 07:00 134/63 05/22/18 07:00 89 26 129/61 (83) 100 05/22/18 06:45 144/61 05/22/18 06:42 87 25 35 05/22/18 06:30 57 26 105/74 (84) 100 05/22/18 06:29 132/63 05/22/18 06:00 132/51 05/22/18 06:00 55 26 98/46 (63) 100 05/22/18 05:30 120/68 05/22/18 05:30 120/68 05/22/18 05:30 120/68 05/22/18 05:30 120/68 05/22/18 05:30 120/68 05/22/18 05:30 120/68 05/22/18 05:30 120/68 05/22/18 05:30 120/68 05/22/18 05:30 120/68 05/22/18 05:30 120/68 05/22/18 05:30 117/69 05/22/18 05:30 96 26 124/60 (81) 100 05/22/18 05:23 93 32 50 05/22/18 05:15 128/70 05/22/18 05:15 128/70 05/22/18 05:15 128/70 05/22/18 05:15 128/70 05/22/18 05:15 124/60 05/22/18 05:15 128/70 05/22/18 05:15 128/70 05/22/18 05:15 128/70 05/22/18 05:15 128/70 05/22/18 05:15 128/70 05/22/18 05:15 128/70 05/22/18 05:00 96 26 138/57 (84) 100 05/22/18 05:00 138/57 05/22/18 05:00 138/57 05/22/18 05:00 138/57 05/22/18 05:00 138/57 05/22/18 05:00 138/57 05/22/18 05:00 138/57 05/22/18 05:00 138/57 05/22/18 05:00 138/57 05/22/18 05:00 138/57 05/22/18 05:00 138/57 05/22/18 05:00 138/57 05/22/18 04:45 161/59 05/22/18 04:30 150/56 05/22/18 04:30 150/56 05/22/18 04:30 150/56 05/22/18 04:30 150/56 05/22/18 04:30 150/56 05/22/18 04:30 150/56 05/22/18 04:30 150/56 05/22/18 04:30 150/56 05/22/18 04:30 150/56 05/22/18 04:30 150/56 05/22/18 04:30 96 26 150/56 (87) 100 05/22/18 04:00 96 26 131/61 (84) 100 05/22/18 04:00 115/25 05/22/18 04:00 115/25 05/22/18 04:00 115/25 05/22/18 04:00 115/25 05/22/18 04:00 115/25 05/22/18 04:00 115/25 05/22/18 04:00 115/25 05/22/18 04:00 115/25 05/22/18 04:00 115/25 05/22/18 04:00 115/25 1/2/19 04:00 11505/22/18 04:00 Mechanical Ventilator Mechanical Ventilator 05/22/18 04:00 60 05/22/18 03:00 05/22/18 03:00 05/22/18 03:00 05/22/18 03:00 05/22/18 03:00 05/22/18 03:00 05/22/18 03:00 05/22/18 03:00 05/22/18 03:00 05/22/18 03:00 05/22/18 03:00 05/22/18 03:00 97 26 95/ (47) 100 05/22/18 02:31 98 24 60 05/22/18 02:30 100 26 101/24 (49) 100 05/22/18 02:00 100 26 114/14 (47) 100 05/22/18 02:00 114/14 05/22/18 02:00 114/14 05/22/18 02:00 114/14 05/22/18 02:00 114/14 05/22/18 02:00 114/14 05/22/18 02:00 114/14 05/22/18 02:00 114/14 05/22/18 02:00 114/14 05/22/18 02:00 114/14 05/22/18 02:00 114/14 05/22/18 02:00 114/14 05/22/18 01:30 100 26 110/17 (48) 100 05/22/18 01:19 101 27 70 05/22/18 01:00 115/21 05/22/18 01:00 115/05/22/18 01:00 115/05/22/18 01:00 115/05/22/18 01:00 115/05/22/18 01:00 115/05/22/18 01:00 115/05/22/18 01:00 115/05/22/18 01:00 115/05/22/18 01:00 115/05/22/18 01:00 115/05/22/18 01:00 100 26 115/21 (52) 100 05/22/18 00:30 100 26 113/15 (47) 100 05/22/18 00:11 106/24 05/22/18 00:11 106/24 05/22/18 00:00 107/26 05/22/18 00:00 98.9 100 26 107/26 (53) 100 05/22/18 00:00 80 05/22/18 00:00 Mechanical Ventilator Mechanical Ventilator 05/21/18 23:30 102 29 70 05/21/18 23:00 102/14 05/21/18 23:00 103 28 115/32 (59) 100 05/21/18 22:45 104 28 132/16 (54) 100 05/21/18 22:30 100 28 102/30 (54) 100 05/21/18 22:15 94 28 104/19 (47) 100 05/21/18 22:00 97 28 85/17 (39) 100 05/21/18 22:00 104/19 05/21/18 21:30 103 28 119/16 (50) 100 05/21/18 21:00 104 28 118/35 (62) 100 05/21/18 21:00 118/35 05/21/18 20:53 103 27 100 05/21/18 20:48 103 25 100 05/21/18 20:30 104 28 100/50 (67) 100 05/21/18 20:00 114/35 05/21/18 20:00 80 05/21/18 20:00 103 05/21/18 20:00 99.2 102 28 114/35 (61) 100 05/21/18 20:00 Mechanical Ventilator Mechanical Ventilator 05/21/18 19:30 102 28 112/20 (50) 100 05/21/18 19:20 127/45 05/21/18 19:00 102 28 127/45 (72) 100 05/21/18 18:00 102 28 112/20 (50) 100 05/21/18 17:30 101 29 115/20 (51) 100 05/21/18 17:00 135/37 05/21/18 17:00 135/37 05/21/18 17:00 106 29 135/37 (69) 100 05/21/18 16:31 106 27 40 05/21/18 16:30 106 27 118/30 (59) 100 05/21/18 16:00 Mechanical Ventilator Mechanical Ventilator 05/21/18 16:00 100 05/21/18 16:00 152/36 05/21/18 16:00 152/36 05/21/18 16:00 99.2 106 26 139/35 (69) 100 05/21/18 15:30 106 26 134/46 (75) 100 05/21/18 15:08 108 25 40 05/21/18 15:00 121/25 05/21/18 15:00 121/25 05/21/18 15:00 108 27 121/21 (54) 100 05/21/18 14:30 108 27 123/30 (61) 100 05/21/18 14:07 104/27 05/21/18 14:00 80/15 05/21/18 14:00 107 28 104/27 (52) 100 05/21/18 13:40 69/42 05/21/18 13:30 98.8 109 27 109/29 (55) 97 05/21/18 13:00 110 28 93/27 (49) 97 05/21/18 12:48 91 26 40 05/21/18 12:45 113 95/47 05/21/18 12:30 110 33 110/25 (53) 97 05/21/18 12:00 Mechanical Ventilator Mechanical Ventilator 05/21/18 12:00 113 05/21/18 12:00 69/43 05/21/18 12:00 113 31 95/47 (63) 97 05/21/18 12:00 100 05/21/18 11:30 113 31 84/65 (71) 97 05/21/18 11:29 90 28 40 05/21/18 11:00 99.8 111 30 91/27 (48) 97 05/21/18 11:00 83/41 05/21/18 10:30 113 31 76/52 (60) 97 05/21/18 10:00 116 32 71/39 (50) 97 05/21/18 10:00 64/22 05/21/18 09:30 113 30 44/26 (32) 99 05/21/18 09:18 88 29 40 05/21/18 09:07 90/47 Intake and Output 05/21/18 05/22/18 19:00 07:00 Intake Total 1601.88 ml 1961.052 ml Output Total 300 ml 0 ml Balance 1301.88 ml 1961.052 ml IV Total 1601.88 ml 1961.052 ml Output Urine Total 0 ml 0 ml Gastric Drainage Total 250 ml Drainage Total 50 ml # Bowel Movements 3 Laboratory Tests 05/21/18 09:18: Arterial Blood pH 7.366, Arterial Blood Partial Pressure CO2 29.1L, Arterial Blood Partial Pressure O2 72.2L, Arterial Blood HCO3 16.3*L, Arterial Blood Oxygen Saturation 92.4L, Arterial Blood Base Excess -7.9L, Luiz Test Positive 05/21/18 09:50: Lactic Acid Level 7.50H 05/21/18 12:45: D-Dimer > 35.20H, Cortisol 30.1 05/21/18 16:20: Activated Partial Thromboplast Time 46H 05/21/18 16:45: Lactic Acid Level 5.60H 05/21/18 19:45: White Blood Count 22.3#*H, Red Blood Count 3.42L, Hemoglobin 10.3L, Hematocrit 33.1L, Mean Corpuscular Volume 97, Mean Corpuscular Hemoglobin 30.2, Mean Corpuscular Hemoglobin Concent 31.2L, Red Cell Distribution Width 15.8H, Platelet Count 420, Mean Platelet Volume 8.4, Neutrophils (%) (Auto) , Lymphocytes (%) (Auto) , Monocytes (%) (Auto) , Eosinophils (%) (Auto) , Basophils (%) (Auto) , Differential Total Cells Counted 100, Neutrophils % ( Manual) 51, Lymphocytes % (Manual) 12L, Monocytes % (Manual) 4, Eosinophils % ( Manual) 0, Basophils % (Manual) 0, Band Neutrophils 33H, Platelet Estimate Adequate, Platelet Morphology See comment, Giant Platelets Occasional, Hypochromasia 1+, Anisocytosis 1+ 05/22/18 03:30: Lactic Acid Level 3.10H, White Blood Count 19.7H, Red Blood Count 3.13L, Hemoglobin 9.5L, Hematocrit 29.4L, Mean Corpuscular Volume 94, Mean Corpuscular Hemoglobin 30.2, Mean Corpuscular Hemoglobin Concent 32.1, Red Cell Distribution Width 15.1H, Platelet Count 423, Mean Platelet Volume 8.0, Neutrophils (%) (Auto) , Lymphocytes (%) (Auto) , Monocytes (%) (Auto) , Eosinophils (%) (Auto) , Basophils (%) (Auto) , Differential Total Cells Counted 100, Neutrophils % (Manual) 85H, Lymphocytes % (Manual) 2L, Monocytes % (Manual) 3, Eosinophils % (Manual) 0, Basophils % (Manual) 0, Band Neutrophils 10H, Platelet Estimate Adequate, Platelet Morphology Normal, Hypochromasia 2+, Anisocytosis 1+, Spherocytes 1+, Activated Partial Thromboplast Time 140H, Sodium Level 125#L, Potassium Level 5.4H, Chloride Level 86L, Carbon Dioxide Level 17L, Anion Gap 22H, Blood Urea Nitrogen 106H, Creatinine 6.7H, Estimat Glomerular Filtration Rate , Glucose Level 347#H, Uric Acid 8.9H, Calcium Level 7.5L, Phosphorus Level 10.8H, Magnesium Level 1.8, Total Bilirubin 0.7, Gamma Glutamyl Transpeptidase 51, Aspartate Amino Transf (AST/SGOT) 77H, Alanine Aminotransferase (ALT/SGPT) 23, Alkaline Phosphatase 98, Total Creatine Kinase 196, Troponin I 0.527H, Pro-B-Type Natriuretic Peptide 45482N, Total Protein 4.9L, Albumin 1.7L, Globulin 3.2, Albumin/Globulin Ratio 0.5L Height (Feet): 5 Height (Inches): 4.00 Weight (Pounds): 183 Objective GENERAL: Intubated. LUNGS: Decreased breath sounds bilaterally. HEART: S1 S2 Regular. ABDOMEN: Tenderness to palpation. Bandages and drain noted. EXTREMITIES: No cyanosis. No clubbing. Sid Holland May 22, 2018 09:06
--- NOTE | 2018-05-22 09:58 | Pulmonolgy Critical Care Note ---
Critical Care - Asmt/Plan Problems: (1) Shock (2) Hypoxemia (3) Elevated d-dimer Assessment & Plan: S/P neg CT-A + UE DVT (4) Hypotension (5) Atrial fibrillation (6) ESRD (end stage renal disease) on dialysis (7) ACS (acute coronary syndrome) (8) Sacral decubitus ulcer, stage III (9) S/P cholecystectomy (10) Serratia sepsis (11) S/P exploratory laparotomy (12) Perforated viscus Assessment/Plan: -Add Vaso 0.04, D/C DA, titrate NE for MAP > 60 -Continue ventilatory support/settings reviewed -Titrate down FiO2 to keep SaO2 > 90%, continue PEEP 5 -HD per renal -Titrate NE to keep MAP > 60 -Amio gtt per cards/EPS, off Dilt -IVUH, monitor for bleeding -Monitor for bleeding -Arabella ad Zosyn per ID, F/U Cx's -Taper stress dose sterodis -FC D/W Dr. Chandler --> if patient stabilizes next 24 hours he will likely take to OR D/W RN and RT CCT 45 Critical Care - Objective Last 24 Hour Vital Signs Date Time Temp Pulse Resp B/P (MAP) Pulse Ox O2 Delivery O2 Flow Rate FiO2 05/22/18 09:00 100 05/22/18 08:55 93 31 30 05/22/18 08:50 89 42 30 05/22/18 08:45 87 27 30 05/22/18 07:00 134/63 05/22/18 07:00 89 26 129/61 (83) 100 05/22/18 06:45 144/61 05/22/18 06:42 87 25 35 05/22/18 06:30 57 26 105/74 (84) 100 05/22/18 06:29 132/63 05/22/18 06:00 132/51 05/22/18 06:00 55 26 98/46 (63) 100 05/22/18 05:30 120/68 05/22/18 05:30 120/68 05/22/18 05:30 120/68 05/22/18 05:30 120/68 05/22/18 05:30 120/68 05/22/18 05:30 120/68 05/22/18 05:30 120/68 05/22/18 05:30 120/68 05/22/18 05:30 120/68 05/22/18 05:30 120/68 05/22/18 05:30 117/69 05/22/18 05:30 96 26 124/60 (81) 100 05/22/18 05:23 93 32 50 05/22/18 05:15 128/70 05/22/18 05:15 128/70 05/22/18 05:15 128/70 05/22/18 05:15 128/70 05/22/18 05:15 124/60 05/22/18 05:15 128/70 05/22/18 05:15 128/70 05/22/18 05:15 128/70 05/22/18 05:15 128/70 05/22/18 05:15 128/70 05/22/18 05:15 128/70 05/22/18 05:00 96 26 138/57 (84) 100 05/22/18 05:00 138/57 05/22/18 05:00 138/57 05/22/18 05:00 138/57 05/22/18 05:00 138/57 05/22/18 05:00 138/57 05/22/18 05:00 138/57 05/22/18 05:00 138/57 05/22/18 05:00 138/57 05/22/18 05:00 138/57 05/22/18 05:00 138/57 05/22/18 05:00 138/57 05/22/18 04:45 161/59 05/22/18 04:30 150/56 05/22/18 04:30 150/56 05/22/18 04:30 150/56 05/22/18 04:30 150/56 05/22/18 04:30 150/56 05/22/18 04:30 150/56 05/22/18 04:30 150/56 05/22/18 04:30 150/56 05/22/18 04:30 150/56 05/22/18 04:30 150/56 05/22/18 04:30 96 26 150/56 (87) 100 05/22/18 04:00 96 26 131/61 (84) 100 05/22/18 04:00 115/25 05/22/18 04:00 05/22/18 04:00 05/22/18 04:00 05/22/18 04:00 05/22/18 04:00 05/22/18 04:00 05/22/18 04:00 05/22/18 04:00 05/22/18 04:00 05/22/18 04:00 05/22/18 04:00 Mechanical Ventilator Mechanical Ventilator 05/22/18 04:00 60 05/22/18 03:00 05/22/18 03:00 05/22/18 03:00 05/22/18 03:00 05/22/18 03:00 05/22/18 03:00 05/22/18 03:00 05/22/18 03:00 05/22/18 03:00 05/22/18 03:00 05/22/18 03:00 05/22/18 03:00 97 26 95/23 (47) 100 05/22/18 02:31 98 24 60 05/22/18 02:30 100 26 101/24 (49) 100 05/22/18 02:00 100 26 114/14 (47) 100 05/22/18 02:00 114/14 05/22/18 02:00 114/14 05/22/18 02:00 114/14 05/22/18 02:00 114/14 05/22/18 02:00 114/14 05/22/18 02:00 114/14 05/22/18 02:00 114/14 05/22/18 02:00 114/14 05/22/18 02:00 114/14 05/22/18 02:00 114/14 05/22/18 02:00 114/14 05/22/18 01:30 100 26 110/17 (48) 100 05/22/18 01:19 101 27 70 05/22/18 01:00 115/05/22/18 01:00 11505/22/18 01:00 05/22/18 01:00 05/22/18 01:00 115/21 05/22/18 01:00 115/21 05/22/18 01:00 115/21 05/22/18 01:00 115/21 05/22/18 01:00 115/21 05/22/18 01:00 115/21 05/22/18 01:00 115/21 05/22/18 01:00 100 26 115/21 (52) 100 05/22/18 00:30 100 26 113/15 (47) 100 05/22/18 00:11 106/24 05/22/18 00:11 106/24 05/22/18 00:00 107/26 05/22/18 00:00 98.9 100 26 107/26 (53) 100 05/22/18 00:00 80 05/22/18 00:00 Mechanical Ventilator Mechanical Ventilator 05/21/18 23:30 102 29 70 05/21/18 23:00 102/14 05/21/18 23:00 103 28 115/32 (59) 100 05/21/18 22:45 104 28 132/16 (54) 100 05/21/18 22:30 100 28 102/30 (54) 100 05/21/18 22:15 94 28 104/19 (47) 100 05/21/18 22:00 97 28 85/17 (39) 100 05/21/18 22:00 104/19 05/21/18 21:30 103 28 119/16 (50) 100 05/21/18 21:00 104 28 118/35 (62) 100 05/21/18 21:00 118/35 05/21/18 20:53 103 27 100 05/21/18 20:48 103 25 100 05/21/18 20:30 104 28 100/50 (67) 100 05/21/18 20:00 114/35 05/21/18 20:00 80 05/21/18 20:00 103 05/21/18 20:00 99.2 102 28 114/35 (61) 100 05/21/18 20:00 Mechanical Ventilator Mechanical Ventilator 05/21/18 19:30 102 28 112/20 (50) 100 05/21/18 19:20 127/45 05/21/18 19:00 102 28 127/45 (72) 100 05/21/18 18:00 102 28 112/20 (50) 100 05/21/18 17:30 101 29 115/20 (51) 100 05/21/18 17:00 135/37 05/21/18 17:00 135/37 05/21/18 17:00 106 29 135/37 (69) 100 05/21/18 16:31 106 27 40 05/21/18 16:30 106 27 118/30 (59) 100 05/21/18 16:00 Mechanical Ventilator Mechanical Ventilator 05/21/18 16:00 100 05/21/18 16:00 152/36 05/21/18 16:00 152/36 05/21/18 16:00 99.2 106 26 139/35 (69) 100 05/21/18 15:30 106 26 134/46 (75) 100 05/21/18 15:08 108 25 40 05/21/18 15:00 121/25 05/21/18 15:00 121/25 05/21/18 15:00 108 27 121/21 (54) 100 05/21/18 14:30 108 27 123/30 (61) 100 05/21/18 14:07 104/27 05/21/18 14:00 80/15 05/21/18 14:00 107 28 104/27 (52) 100 05/21/18 13:40 69/42 05/21/18 13:30 98.8 109 27 109/29 (55) 97 05/21/18 13:00 110 28 93/27 (49) 97 05/21/18 12:48 91 26 40 05/21/18 12:45 113 95/47 05/21/18 12:30 110 33 110/25 (53) 97 05/21/18 12:00 Mechanical Ventilator Mechanical Ventilator 05/21/18 12:00 113 05/21/18 12:00 69/43 05/21/18 12:00 113 31 95/47 (63) 97 05/21/18 12:00 100 05/21/18 11:30 113 31 84/65 (71) 97 05/21/18 11:29 90 28 40 05/21/18 11:00 99.8 111 30 91/27 (48) 97 05/21/18 11:00 83/41 05/21/18 10:30 113 31 76/52 (60) 97 05/21/18 10:00 116 32 71/39 (50) 97 05/21/18 10:00 64/22 Status: obtunded Condition: critical HEENT: atraumatic, normocephalic Lungs: rhonchi Heart: HR/BP unstable Abdomen: other - TTP, + drain OP, no FC Extremities: no C/C/E Accucheck: 340 Blood Sugars: BS not controlled Critical Care - Subjective ROS Limited/Unobtainable: Yes ICU Day: 8 Intubation Day: 5 Interval Events: Much worse Lactic acidosis, septic, cuff leak sunday - reintubated, now on NE and DA, on IVUH for UE DVT and possible PE, O2 needs stable on vent Condition: critical IV Access: PICC - RUE, central - R felice, peripheral - R wrist EKG Rhythm: Atrial Fibrillation FI02: 30 Vent Support Breath Rate: 10 Vent Support Mode: AC Vent Tidal Volume: 500 Sputum Amount: None PEEP: 5.0 PIP: 21 Drips: NE 14 DA 10 I&O: Intake and Output 05/21/18 05/22/18 19:00 07:00 Intake Total 1601.88 ml 1961.052 ml Output Total 300 ml 0 ml Balance 1301.88 ml 1961.052 ml IV Total 1601.88 ml 1961.052 ml Output Urine Total 0 ml 0 ml Gastric Drainage Total 250 ml Drainage Total 50 ml # Bowel Movements 3 Subjective: CROW ET-Tube: 7.5 ET Position: 25 Labs: Laboratory Tests Test 05/21/18 12:45 05/21/18 16:20 05/21/18 16:45 05/21/18 19:45 D-Dimer > 35.20 mg/L FEU Cortisol 30.1 UG/DL Activated Partial Thromboplast Time 46 SEC (23-33) H Lactic Acid Level 5.60 mmol/L (0.4-2.0) H White Blood Count 22.3 K/UL (4.8-10.8) #*H Red Blood Count 3.42 M/UL (4.70-6.10) L Hemoglobin 10.3 G/DL (14.2-18.0) L Hematocrit 33.1 % (42.0-52.0) L Mean Corpuscular Volume 97 FL (80-99) Mean Corpuscular Hemoglobin 30.2 PG (27.0-31.0) Mean Corpuscular Hemoglobin Concent 31.2 G/DL (32.0-36.0) L Red Cell Distribution Width 15.8 % (11.6-14.8) H Platelet Count 420 K/UL (150-450) Mean Platelet Volume 8.4 FL (6.5-10.1) Neutrophils (%) (Auto) % (45.0-75.0) Lymphocytes (%) (Auto) % (20.0-45.0) Monocytes (%) (Auto) % (1.0-10.0) Eosinophils (%) (Auto) % (0.0-3.0) Basophils (%) (Auto) % (0.0-2.0) Differential Total Cells Counted 100 Neutrophils % (Manual) 51 % (45-75) Lymphocytes % (Manual) 12 % (20-45) L Monocytes % (Manual) 4 % (1-10) Eosinophils % (Manual) 0 % (0-3) Basophils % (Manual) 0 % (0-2) Band Neutrophils 33 % (0-8) H Platelet Estimate Adequate Platelet Morphology See comment Giant Platelets Occasional Hypochromasia 1+ Anisocytosis 1+ Test 05/22/18 03:30 White Blood Count 19.7 K/UL (4.8-10.8) H Red Blood Count 3.13 M/UL (4.70-6.10) L Hemoglobin 9.5 G/DL (14.2-18.0) L Hematocrit 29.4 % (42.0-52.0) L Mean Corpuscular Volume 94 FL (80-99) Mean Corpuscular Hemoglobin 30.2 PG (27.0-31.0) Mean Corpuscular Hemoglobin Concent 32.1 G/DL (32.0-36.0) Red Cell Distribution Width 15.1 % (11.6-14.8) H Platelet Count 423 K/UL (150-450) Mean Platelet Volume 8.0 FL (6.5-10.1) Neutrophils (%) (Auto) % (45.0-75.0) Lymphocytes (%) (Auto) % (20.0-45.0) Monocytes (%) (Auto) % (1.0-10.0) Eosinophils (%) (Auto) % (0.0-3.0) Basophils (%) (Auto) % (0.0-2.0) Differential Total Cells Counted 100 Neutrophils % (Manual) 85 % (45-75) H Lymphocytes % (Manual) 2 % (20-45) L Monocytes % (Manual) 3 % (1-10) Eosinophils % (Manual) 0 % (0-3) Basophils % (Manual) 0 % (0-2) Band Neutrophils 10 % (0-8) H Platelet Estimate Adequate Platelet Morphology Normal Hypochromasia 2+ Anisocytosis 1+ Spherocytes 1+ Activated Partial Thromboplast Time 140 SEC (23-33) H Sodium Level 125 MMOL/L (136-145) #L Potassium Level 5.4 MMOL/L (3.5-5.1) H Chloride Level 86 MMOL/L (98-107) L Carbon Dioxide Level 17 MMOL/L (21-32) L Anion Gap 22 mmol/L (5-15) H Blood Urea Nitrogen 106 mg/dL (7-18) H Creatinine 6.7 MG/DL (0.55-1.30) H Estimat Glomerular Filtration Rate mL/min (>60) Glucose Level 347 MG/DL (74-106) #H Lactic Acid Level 3.10 mmol/L (0.4-2.0) H Uric Acid 8.9 MG/DL (2.6-7.2) H Calcium Level 7.5 MG/DL (8.5-10.1) L Phosphorus Level 10.8 MG/DL (2.5-4.9) H Magnesium Level 1.8 MG/DL (1.8-2.4) Total Bilirubin 0.7 MG/DL (0.2-1.0) Gamma Glutamyl Transpeptidase 51 U/L (5-85) Aspartate Amino Transf (AST/SGOT) 77 U/L (15-37) H Alanine Aminotransferase (ALT/SGPT) 23 U/L (12-78) Alkaline Phosphatase 98 U/L (46-116) Total Creatine Kinase 196 U/L (26-308) Troponin I 0.527 ng/mL (0.000-0.056) Pro-B-Type Natriuretic Peptide 63374 pg/mL (0-125) H Total Protein 4.9 G/DL (6.4-8.2) L Albumin 1.7 G/DL (3.4-5.0) L Globulin 3.2 g/dL Albumin/Globulin Ratio 0.5 (1.0-2.7) L Daryl Jones MD May 22, 2018 09:58
--- NOTE | 2018-05-22 10:00 | NUR ---
NURSE NOTES: Dr. Arroyo aware about abnormal labs, HD scheduled for today. Dr. Stephenson aware about elevated troponin.
[2018-05-22] MEDS: Phenylephrine 50 MG in D5W 245 ML IV SCH (11:00)
--- NOTE | 2018-05-22 11:17 | General Progress Note ---
Progress Note Progress Note leukocytosis trending down weaning off pressors drain output more clear and serous venous duplex noted on heparin gtt cont abx wean pressors prognosis guarded cont current care Tomas Chandler May 22, 2018 11:17
[2018-05-22] MEDS: Vasopressin 100 UNITS in NS 95 ML IV SCH (11:31)
--- NOTE | 2018-05-22 11:44 | Infectious Diseases Prog Note ---
Assessment/Plan Assessment/Plan A: 1. serratia , Enterobacter sepsis with shock 2. VRE colonization 3. diabetes mellitus 4. hypertension 5. 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 leucocytosis 6. A fib with RVR 7. Small bowel perforation 8. Perioperative respiratory failure 9. Atelectasis versus Pneumonia 10 Peritonitis with Citrobacter & Serratia 11. sepsis, septic shock 12. Lactic acidosis P 1. continue Zosyn and Micafungin 2. Surgical wound culture 3. Start on IV Vancomycin 4. Consider TPN Subjective ROS Limited/Unobtainable: Yes Constitutional: Reports: no symptoms Cardiovascular: Reports: other - on pressor Gastrointestinal/Abdominal: Reports: other - discharge from surgical wound Allergies: Coded Allergies: No Known Allergies (Unverified , 11/12/12) Objective Vital Signs Last 24 Hour Vital Signs Date Time Temp Pulse Resp B/P (MAP) Pulse Ox O2 Delivery O2 Flow Rate FiO2 05/22/18 11:00 91 26 135/66 (89) 100 05/22/18 11:00 90 134/63 05/22/18 10:52 90 27 30 05/22/18 10:30 85 26 132/61 (84) 100 05/22/18 10:00 89 26 136/50 (78) 100 05/22/18 09:30 89 26 129/61 (83) 100 05/22/18 09:00 92 26 122/60 (80) 100 05/22/18 09:00 100 05/22/18 08:55 93 31 30 05/22/18 08:50 89 42 30 05/22/18 08:45 87 27 30 05/22/18 08:30 89 26 129/56 (80) 100 05/22/18 08:00 98.2 90 26 130/65 (86) 100 05/22/18 08:00 Mechanical Ventilator Mechanical Ventilator 05/22/18 08:00 35 05/22/18 07:00 134/63 05/22/18 07:00 89 26 129/61 (83) 100 05/22/18 06:45 144/61 05/22/18 06:42 87 25 35 05/22/18 06:30 57 26 105/74 (84) 100 05/22/18 06:29 132/63 05/22/18 06:00 132/51 05/22/18 06:00 55 26 98/46 (63) 100 05/22/18 05:30 120/68 05/22/18 05:30 120/68 05/22/18 05:30 120/68 05/22/18 05:30 120/68 05/22/18 05:30 120/68 05/22/18 05:30 120/68 05/22/18 05:30 120/68 05/22/18 05:30 120/68 05/22/18 05:30 120/68 05/22/18 05:30 120/68 05/22/18 05:30 117/69 05/22/18 05:30 96 26 124/60 (81) 100 05/22/18 05:23 93 32 50 05/22/18 05:15 128/70 05/22/18 05:15 128/70 05/22/18 05:15 128/70 05/22/18 05:15 128/70 05/22/18 05:15 124/60 05/22/18 05:15 128/70 05/22/18 05:15 128/70 05/22/18 05:15 128/70 05/22/18 05:15 128/70 05/22/18 05:15 128/70 05/22/18 05:15 128/70 05/22/18 05:00 96 26 138/57 (84) 100 05/22/18 05:00 138/57 05/22/18 05:00 138/57 05/22/18 05:00 138/57 05/22/18 05:00 138/57 05/22/18 05:00 138/57 05/22/18 05:00 138/57 05/22/18 05:00 138/57 05/22/18 05:00 138/57 05/22/18 05:00 138/57 05/22/18 05:00 138/57 05/22/18 05:00 138/57 05/22/18 04:45 161/59 05/22/18 04:30 150/56 05/22/18 04:30 150/56 05/22/18 04:30 150/56 05/22/18 04:30 150/56 05/22/18 04:30 150/56 05/22/18 04:30 150/56 05/22/18 04:30 150/56 05/22/18 04:30 150/56 05/22/18 04:30 150/56 05/22/18 04:30 150/56 05/22/18 04:30 96 26 150/56 (87) 100 05/22/18 04:00 96 26 131/61 (84) 100 05/22/18 04:00 115/25 05/22/18 04:00 115/05/22/18 04:00 115/05/22/18 04:00 115/05/22/18 04:00 115/05/22/18 04:00 11505/22/18 04:00 11505/22/18 04:00 11505/22/18 04:00 11505/22/18 04:00 11505/22/18 04:00 05/22/18 04:00 Mechanical Ventilator Mechanical Ventilator 05/22/18 04:00 60 05/22/18 03:00 95/05/22/18 03:00 95/05/22/18 03:00 95/05/22/18 03:00 95/05/22/18 03:00 95/05/22/18 03:00 95/05/22/18 03:00 95/05/22/18 03:00 95/05/22/18 03:00 95/05/22/18 03:00 95/05/22/18 03:00 95/05/22/18 03:00 97 26 95/23 (47) 100 05/22/18 02:31 98 24 60 05/22/18 02:30 100 26 101/24 (49) 100 05/22/18 02:00 100 26 114/14 (47) 100 05/22/18 02:00 114/14 05/22/18 02:00 114/14 05/22/18 02:00 114/14 05/22/18 02:00 114/14 05/22/18 02:00 114/14 05/22/18 02:00 114/14 05/22/18 02:00 114/14 05/22/18 02:00 114/14 05/22/18 02:00 114/14 05/22/18 02:00 114/14 05/22/18 02:00 114/14 05/22/18 01:30 100 26 110/17 (48) 100 05/22/18 01:19 101 27 70 05/22/18 01:00 115/21 05/22/18 01:00 115/21 05/22/18 01:00 115/21 05/22/18 01:00 115/05/22/18 01:00 115/05/22/18 01:00 115/05/22/18 01:00 115/05/22/18 01:00 115/05/22/18 01:00 115/05/22/18 01:00 115/05/22/18 01:00 11505/22/18 01:00 100 26 115/21 (52) 100 05/22/18 00:30 100 26 113/15 (47) 100 05/22/18 00:11 106/24 05/22/18 00:11 106/24 05/22/18 00:00 107/26 05/22/18 00:00 98.9 100 26 107/26 (53) 100 05/22/18 00:00 80 05/22/18 00:00 Mechanical Ventilator Mechanical Ventilator 05/21/18 23:30 102 29 70 05/21/18 23:00 102/14 05/21/18 23:00 103 28 115/32 (59) 100 05/21/18 22:45 104 28 132/16 (54) 100 05/21/18 22:30 100 28 102/30 (54) 100 05/21/18 22:15 94 28 104/19 (47) 100 05/21/18 22:00 97 28 85/17 (39) 100 05/21/18 22:00 104/19 05/21/18 21:30 103 28 119/16 (50) 100 05/21/18 21:00 104 28 118/35 (62) 100 05/21/18 21:00 118/35 05/21/18 20:53 103 27 100 05/21/18 20:48 103 25 100 05/21/18 20:30 104 28 100/50 (67) 100 05/21/18 20:00 114/35 05/21/18 20:00 80 05/21/18 20:00 103 05/21/18 20:00 99.2 102 28 114/35 (61) 100 05/21/18 20:00 Mechanical Ventilator Mechanical Ventilator 05/21/18 19:30 102 28 112/20 (50) 100 05/21/18 19:20 127/45 05/21/18 19:00 102 28 127/45 (72) 100 05/21/18 18:00 102 28 112/20 (50) 100 05/21/18 17:30 101 29 115/20 (51) 100 05/21/18 17:00 135/37 05/21/18 17:00 135/37 05/21/18 17:00 106 29 135/37 (69) 100 05/21/18 16:31 106 27 40 05/21/18 16:30 106 27 118/30 (59) 100 05/21/18 16:00 Mechanical Ventilator Mechanical Ventilator 05/21/18 16:00 100 05/21/18 16:00 152/36 05/21/18 16:00 152/36 05/21/18 16:00 99.2 106 26 139/35 (69) 100 05/21/18 15:30 106 26 134/46 (75) 100 05/21/18 15:08 108 25 40 05/21/18 15:00 121/25 05/21/18 15:00 121/25 05/21/18 15:00 108 27 121/21 (54) 100 05/21/18 14:30 108 27 123/30 (61) 100 05/21/18 14:07 104/27 05/21/18 14:00 80/15 05/21/18 14:00 107 28 104/27 (52) 100 05/21/18 13:40 69/42 05/21/18 13:30 98.8 109 27 109/29 (55) 97 05/21/18 13:00 110 28 93/27 (49) 97 05/21/18 12:48 91 26 40 05/21/18 12:45 113 95/47 05/21/18 12:30 110 33 110/25 (53) 97 05/21/18 12:00 Mechanical Ventilator Mechanical Ventilator 05/21/18 12:00 113 05/21/18 12:00 69/43 05/21/18 12:00 113 31 95/47 (63) 97 05/21/18 12:00 100 Height (Feet): 5 Height (Inches): 4.00 Weight (Pounds): 185 HEENT: mucous membranes moist, other - orally intubated Cardiovascular: normal rate, other - femoral Donis's catheter Abdomen: other - RLQ drain, discharge from midline surgical wound Extremities: other - edema more in hands Neurologic/Psychiatric: unresponsiveness Laboratory Tests Test 05/21/18 12:45 05/21/18 16:20 05/21/18 16:45 05/21/18 19:45 D-Dimer > 35.20 mg/L FEU Cortisol 30.1 UG/DL Activated Partial Thromboplast Time 46 SEC (23-33) H Lactic Acid Level 5.60 mmol/L (0.4-2.0) H White Blood Count 22.3 K/UL (4.8-10.8) #*H Red Blood Count 3.42 M/UL (4.70-6.10) L Hemoglobin 10.3 G/DL (14.2-18.0) L Hematocrit 33.1 % (42.0-52.0) L Mean Corpuscular Volume 97 FL (80-99) Mean Corpuscular Hemoglobin 30.2 PG (27.0-31.0) Mean Corpuscular Hemoglobin Concent 31.2 G/DL (32.0-36.0) L Red Cell Distribution Width 15.8 % (11.6-14.8) H Platelet Count 420 K/UL (150-450) Mean Platelet Volume 8.4 FL (6.5-10.1) Neutrophils (%) (Auto) % (45.0-75.0) Lymphocytes (%) (Auto) % (20.0-45.0) Monocytes (%) (Auto) % (1.0-10.0) Eosinophils (%) (Auto) % (0.0-3.0) Basophils (%) (Auto) % (0.0-2.0) Differential Total Cells Counted 100 Neutrophils % (Manual) 51 % (45-75) Lymphocytes % (Manual) 12 % (20-45) L Monocytes % (Manual) 4 % (1-10) Eosinophils % (Manual) 0 % (0-3) Basophils % (Manual) 0 % (0-2) Band Neutrophils 33 % (0-8) H Platelet Estimate Adequate Platelet Morphology See comment Giant Platelets Occasional Hypochromasia 1+ Anisocytosis 1+ Test 05/22/18 03:30 05/22/18 10:00 White Blood Count 19.7 K/UL (4.8-10.8) H Red Blood Count 3.13 M/UL (4.70-6.10) L Hemoglobin 9.5 G/DL (14.2-18.0) L Hematocrit 29.4 % (42.0-52.0) L Mean Corpuscular Volume 94 FL (80-99) Mean Corpuscular Hemoglobin 30.2 PG (27.0-31.0) Mean Corpuscular Hemoglobin Concent 32.1 G/DL (32.0-36.0) Red Cell Distribution Width 15.1 % (11.6-14.8) H Platelet Count 423 K/UL (150-450) Mean Platelet Volume 8.0 FL (6.5-10.1) Neutrophils (%) (Auto) % (45.0-75.0) Lymphocytes (%) (Auto) % (20.0-45.0) Monocytes (%) (Auto) % (1.0-10.0) Eosinophils (%) (Auto) % (0.0-3.0) Basophils (%) (Auto) % (0.0-2.0) Differential Total Cells Counted 100 Neutrophils % (Manual) 85 % (45-75) H Lymphocytes % (Manual) 2 % (20-45) L Monocytes % (Manual) 3 % (1-10) Eosinophils % (Manual) 0 % (0-3) Basophils % (Manual) 0 % (0-2) Band Neutrophils 10 % (0-8) H Platelet Estimate Adequate Platelet Morphology Normal Hypochromasia 2+ Anisocytosis 1+ Spherocytes 1+ Activated Partial Thromboplast Time 140 SEC (23-33) H Sodium Level 125 MMOL/L (136-145) #L Potassium Level 5.4 MMOL/L (3.5-5.1) H Chloride Level 86 MMOL/L (98-107) L Carbon Dioxide Level 17 MMOL/L (21-32) L Anion Gap 22 mmol/L (5-15) H Blood Urea Nitrogen 106 mg/dL (7-18) H Creatinine 6.7 MG/DL (0.55-1.30) H Estimat Glomerular Filtration Rate mL/min (>60) Glucose Level 347 MG/DL (74-106) #H Lactic Acid Level 3.10 mmol/L (0.4-2.0) H 2.30 mmol/L (0.66-2.22) H Uric Acid 8.9 MG/DL (2.6-7.2) H Calcium Level 7.5 MG/DL (8.5-10.1) L Phosphorus Level 10.8 MG/DL (2.5-4.9) H Magnesium Level 1.8 MG/DL (1.8-2.4) Total Bilirubin 0.7 MG/DL (0.2-1.0) Gamma Glutamyl Transpeptidase 51 U/L (5-85) Aspartate Amino Transf (AST/SGOT) 77 U/L (15-37) H Alanine Aminotransferase (ALT/SGPT) 23 U/L (12-78) Alkaline Phosphatase 98 U/L (46-116) Total Creatine Kinase 196 U/L (26-308) Troponin I 0.527 ng/mL (0.000-0.056) Pro-B-Type Natriuretic Peptide 09608 pg/mL (0-125) H Total Protein 4.9 G/DL (6.4-8.2) L Albumin 1.7 G/DL (3.4-5.0) L Globulin 3.2 g/dL Albumin/Globulin Ratio 0.5 (1.0-2.7) L Current Medications Medications (Trade) Dose Ordered Sig/Min Route PRN Reason Start Time Stop Time Status Last Admin Dose Admin Acetaminophen (Tylenol) 650 mg Q4H PRN ORAL Mild Pain/Temp > 100.5 05/12/18 15:30 06/09/18 15:29 05/20/18 20:53 Acetaminophen (Tylenol) 650 mg Q4H PRN RECTAL Mild Pain/Temp > 100.5 05/21/18 12:00 06/20/18 11:59 Chlorhexidine Gluconate (Tatyana-Hex 2%) 1 applic DAILY@1999 TOPIC 05/12/18 20:00 06/11/18 19:59 05/21/18 20:20 Dextrose (Dextrose 50%) 25 ml Q30M PRN IV Hypoglycemia 05/16/18 17:30 06/15/18 17:29 Dextrose (Dextrose 50%) 50 ml Q30M PRN IV Hypoglycemia 05/16/18 17:30 06/15/18 17:29 Haloperidol Lactate (Haldol) 5 mg Q6H PRN IM Agitation 05/19/18 16:00 06/18/18 15:59 Heparin Sodium/ Dextrose 500 ml @ 24.903 mls/ hr ADJUST PER PROTOCOL IV 05/22/18 07:00 06/21/18 06:59 05/22/18 07:04 Hydrocortisone (Solu-CORTEF) 100 mg EVERY 8 HOURS IV 05/21/18 22:00 06/20/18 21:59 05/22/18 06:29 Hydromorphone HCl (Dilaudid) 1 mg Q2H PRN IVP Severe Pain (Pain Scale 7-10) 05/20/18 09:45 05/25/18 09:44 Insulin Aspart (NovoLOG) BEFORE MEALS AND HS SUBQ 05/16/18 21:00 06/15/18 20:59 05/22/18 06:34 Lorazepam (Ativan 2mg/ml 1ml) 1 mg Q6H PRN IV For Anxiety 05/19/18 08:15 05/26/18 08:14 05/21/18 12:53 Micafungin Sodium 100 mg/Sodium Chloride 110 ml @ 110 mls/hr Q24H IVPB 05/21/18 12:00 05/28/18 11:59 05/21/18 14:06 Midodrine (Pro-Amatine) 2.5 mg THREE TIMES A DAY PRN ORAL for bp below 100 syst 05/19/18 10:15 06/14/18 12:59 Norepinephrine Bitartrate 8 mg/ Dextrose 500 ml @ 0 mls/hr Q24H IV 05/21/18 14:30 06/20/18 14:29 05/22/18 06:29 Ondansetron HCl (Zofran) 4 mg Q6H PRN IVP Nausea & Vomiting 05/15/18 23:30 06/14/18 23:29 Pantoprazole (Protonix) 40 mg EVERY 12 HOURS IVP 05/12/18 21:00 06/10/18 20:59 05/22/18 09:00 Phenylephrine HCl 50 mg/Dextrose 250 ml @ 0 mls/hr Q24H IV 05/21/18 11:00 06/20/18 10:59 05/21/18 12:45 Piperacillin Sod/ Tazobactam Sod 2.25 gm/Dextrose 55 ml @ 110 mls/hr Q8HR IVPB 05/19/18 12:00 05/24/18 11:59 05/22/18 06:28 Vasopressin 100 units/Sodium Chloride 100 ml @ 0 mls/hr Q24H IV 05/22/18 11:30 06/21/18 11:29 05/22/18 11:31 Romie Hooks MD May 22, 2018 11:44
--- NOTE | 2018-05-22 12:06 | NUR ---
CASE MANAGEMENT: REVIEW SI: ESRD ON HD . ACS . A-FIB RIGHT FEMORAL TEMPORARY HEMODIALYSIS CATHETER INSERTION 05/13 T 98.2 HR 87 RR 42 BP 129/56 AT IS: AMIODARONE IV Q24HR FENTANYL IV Q24HR VERSED IV Q24HR FLAGYL IV Q8HR SOLU CORTEF IV Q8HR MIDODRINE PO TID CEFTRIAXONE IV Q24HR HD PRN ICU STATUS DCP: PATIENT IS FROM HOME Addendum: 05/22/18 at 1216 by ANN ABRAHAM CM SAT 100% MECH VENT FIO2 35 WBC 19.7 H/H 9.5/29.4
--- NOTE | 2018-05-22 12:24 | Cardiac Electrophysiology PN ---
Assessment/Plan Assessment/Plan 1. Atrial fib/flutter with RVR .Converted to SR. On Amio drip . Still NPO Dig level 2.5 on 05/16/18. 2. Chest pain. No ME. EKG showed old inferior and anterior wall ME, but no ischemia. ECHO with normal LV function 3. End-stage renal disease, on hemodialysis per Dr. Arroyo. 4. Septic shock, on 2 pressors today. Off Dopamine though Dr Chandler reevaluated. 2D Echo EF 60% and PA pressure 63 ? PE. DD 35.2. Unstable for chest CT angio. Started on heparin drip for possible PE 5. History of kidney stones. 6. History of psychiatric problems, dementia. 7. Hx of lap matthew. S/P SB resection 05/15/18 with drain Has yellowish discharge from incision. On iv Abx per ID 8. Respiratory failure, intubated on the vent. SAW RN Subjective Subjective In ICU on Amiodarone drip 0.5 mg , Levophed drip , Florentino drip and Dopamine was just DCed. On the Vent and 30% Fio2 Objective Last 24 Hour Vital Signs Date Time Temp Pulse Resp B/P (MAP) Pulse Ox O2 Delivery O2 Flow Rate FiO2 05/22/18 11:00 91 26 135/66 (89) 100 05/22/18 11:00 90 134/63 05/22/18 10:52 90 27 30 05/22/18 10:30 85 26 132/61 (84) 100 05/22/18 10:00 89 26 136/50 (78) 100 05/22/18 09:30 89 26 129/61 (83) 100 05/22/18 09:00 92 26 122/60 (80) 100 05/22/18 09:00 100 05/22/18 08:55 93 31 30 05/22/18 08:50 89 42 30 05/22/18 08:45 87 27 30 05/22/18 08:30 89 26 129/56 (80) 100 05/22/18 08:00 98.2 90 26 130/65 (86) 100 05/22/18 08:00 Mechanical Ventilator Mechanical Ventilator 05/22/18 08:00 35 05/22/18 07:00 134/63 05/22/18 07:00 89 26 129/61 (83) 100 05/22/18 06:45 144/61 05/22/18 06:42 87 25 35 05/22/18 06:30 57 26 105/74 (84) 100 05/22/18 06:29 132/63 05/22/18 06:00 132/51 05/22/18 06:00 55 26 98/46 (63) 100 05/22/18 05:30 120/68 05/22/18 05:30 120/68 05/22/18 05:30 120/68 05/22/18 05:30 120/68 05/22/18 05:30 120/68 05/22/18 05:30 120/68 05/22/18 05:30 120/68 05/22/18 05:30 120/68 05/22/18 05:30 120/68 05/22/18 05:30 120/68 05/22/18 05:30 117/69 05/22/18 05:30 96 26 124/60 (81) 100 05/22/18 05:23 93 32 50 05/22/18 05:15 128/70 05/22/18 05:15 128/70 05/22/18 05:15 128/70 05/22/18 05:15 128/70 05/22/18 05:15 124/60 05/22/18 05:15 128/70 05/22/18 05:15 128/70 05/22/18 05:15 128/70 05/22/18 05:15 128/70 05/22/18 05:15 128/70 05/22/18 05:15 128/70 05/22/18 05:00 96 26 138/57 (84) 100 05/22/18 05:00 138/57 05/22/18 05:00 138/57 05/22/18 05:00 138/57 05/22/18 05:00 138/57 05/22/18 05:00 138/57 05/22/18 05:00 138/57 05/22/18 05:00 138/57 05/22/18 05:00 138/57 05/22/18 05:00 138/57 05/22/18 05:00 138/57 05/22/18 05:00 138/57 05/22/18 04:45 161/59 05/22/18 04:30 150/56 05/22/18 04:30 150/56 05/22/18 04:30 150/56 05/22/18 04:30 150/56 05/22/18 04:30 150/56 05/22/18 04:30 150/56 05/22/18 04:30 150/56 05/22/18 04:30 150/56 05/22/18 04:30 150/56 05/22/18 04:30 150/56 05/22/18 04:30 96 26 150/56 (87) 100 05/22/18 04:00 96 26 131/61 (84) 100 05/22/18 04:00 115/25 05/22/18 04:00 11505/22/18 04:00 11505/22/18 04:00 11505/22/18 04:00 11505/22/18 04:00 11505/22/18 04:00 11505/22/18 04:00 11505/22/18 04:00 11505/22/18 04:00 11505/22/18 04:00 11505/22/18 04:00 Mechanical Ventilator Mechanical Ventilator 05/22/18 04:00 60 05/22/18 03:00 9505/22/18 03:00 9505/22/18 03:00 05/22/18 03:00 05/22/18 03:00 05/22/18 03:00 05/22/18 03:00 05/22/18 03:00 9505/22/18 03:00 05/22/18 03:00 05/22/18 03:00 9505/22/18 03:00 97 26 95/23 (47) 100 05/22/18 02:31 98 24 60 05/22/18 02:30 100 26 101/24 (49) 100 05/22/18 02:00 100 26 114/14 (47) 100 05/22/18 02:00 114/14 05/22/18 02:00 114/14 05/22/18 02:00 114/14 05/22/18 02:00 114/14 05/22/18 02:00 114/14 05/22/18 02:00 114/14 05/22/18 02:00 114/14 05/22/18 02:00 114/14 05/22/18 02:00 114/14 05/22/18 02:00 114/14 05/22/18 02:00 114/14 05/22/18 01:30 100 26 110/17 (48) 100 05/22/18 01:19 101 27 70 05/22/18 01:00 115/21 05/22/18 01:00 115/05/22/18 01:00 11505/22/18 01:00 11505/22/18 01:00 11505/22/18 01:00 11505/22/18 01:00 11505/22/18 01:00 11505/22/18 01:00 11505/22/18 01:00 05/22/18 01:00 11505/22/18 01:00 100 26 115/21 (52) 100 05/22/18 00:30 100 26 113/15 (47) 100 05/22/18 00:11 106/24 05/22/18 00:11 106/24 05/22/18 00:00 107/26 05/22/18 00:00 98.9 100 26 107/26 (53) 100 05/22/18 00:00 80 05/22/18 00:00 Mechanical Ventilator Mechanical Ventilator 05/21/18 23:30 102 29 70 05/21/18 23:00 102/14 05/21/18 23:00 103 28 115/32 (59) 100 05/21/18 22:45 104 28 132/16 (54) 100 05/21/18 22:30 100 28 102/30 (54) 100 05/21/18 22:15 94 28 104/19 (47) 100 05/21/18 22:00 97 28 85/17 (39) 100 05/21/18 22:00 104/19 05/21/18 21:30 103 28 119/16 (50) 100 05/21/18 21:00 104 28 118/35 (62) 100 05/21/18 21:00 118/35 05/21/18 20:53 103 27 100 05/21/18 20:48 103 25 100 05/21/18 20:30 104 28 100/50 (67) 100 05/21/18 20:00 114/35 05/21/18 20:00 80 05/21/18 20:00 103 05/21/18 20:00 99.2 102 28 114/35 (61) 100 05/21/18 20:00 Mechanical Ventilator Mechanical Ventilator 05/21/18 19:30 102 28 112/20 (50) 100 05/21/18 19:20 127/45 05/21/18 19:00 102 28 127/45 (72) 100 05/21/18 18:00 102 28 112/20 (50) 100 05/21/18 17:30 101 29 115/20 (51) 100 05/21/18 17:00 135/37 05/21/18 17:00 135/37 05/21/18 17:00 106 29 135/37 (69) 100 05/21/18 16:31 106 27 40 05/21/18 16:30 106 27 118/30 (59) 100 05/21/18 16:00 Mechanical Ventilator Mechanical Ventilator 05/21/18 16:00 100 05/21/18 16:00 152/36 05/21/18 16:00 152/36 05/21/18 16:00 99.2 106 26 139/35 (69) 100 05/21/18 15:30 106 26 134/46 (75) 100 05/21/18 15:08 108 25 40 05/21/18 15:00 121/25 05/21/18 15:00 121/25 05/21/18 15:00 108 27 121/21 (54) 100 05/21/18 14:30 108 27 123/30 (61) 100 05/21/18 14:07 104/27 05/21/18 14:00 80/15 05/21/18 14:00 107 28 104/27 (52) 100 05/21/18 13:40 69/42 05/21/18 13:30 98.8 109 27 109/29 (55) 97 05/21/18 13:00 110 28 93/27 (49) 97 05/21/18 12:48 91 26 40 05/21/18 12:45 113 95/47 05/21/18 12:30 110 33 110/25 (53) 97 Intake and Output 05/21/18 05/22/18 18:59 06:59 Intake Total 1571.38 ml 2003.298 ml Output Total 320 ml 0 ml Balance 1251.38 ml 2004.298 ml IV Total 1571.38 ml 2003.298 ml Output Urine Total 20 ml 0 ml Gastric Drainage Total 250 ml Drainage Total 50 ml # Bowel Movements 3 Laboratory Tests Test 05/21/18 12:45 05/21/18 16:20 05/21/18 16:45 05/21/18 19:45 D-Dimer > 35.20 mg/L FEU Cortisol 30.1 UG/DL Activated Partial Thromboplast Time 46 SEC (23-33) H Lactic Acid Level 5.60 mmol/L (0.4-2.0) H White Blood Count 22.3 K/UL (4.8-10.8) #*H Red Blood Count 3.42 M/UL (4.70-6.10) L Hemoglobin 10.3 G/DL (14.2-18.0) L Hematocrit 33.1 % (42.0-52.0) L Mean Corpuscular Volume 97 FL (80-99) Mean Corpuscular Hemoglobin 30.2 PG (27.0-31.0) Mean Corpuscular Hemoglobin Concent 31.2 G/DL (32.0-36.0) L Red Cell Distribution Width 15.8 % (11.6-14.8) H Platelet Count 420 K/UL (150-450) Mean Platelet Volume 8.4 FL (6.5-10.1) Neutrophils (%) (Auto) % (45.0-75.0) Lymphocytes (%) (Auto) % (20.0-45.0) Monocytes (%) (Auto) % (1.0-10.0) Eosinophils (%) (Auto) % (0.0-3.0) Basophils (%) (Auto) % (0.0-2.0) Differential Total Cells Counted 100 Neutrophils % (Manual) 51 % (45-75) Lymphocytes % (Manual) 12 % (20-45) L Monocytes % (Manual) 4 % (1-10) Eosinophils % (Manual) 0 % (0-3) Basophils % (Manual) 0 % (0-2) Band Neutrophils 33 % (0-8) H Platelet Estimate Adequate Platelet Morphology See comment Giant Platelets Occasional Hypochromasia 1+ Anisocytosis 1+ Test 05/22/18 03:30 05/22/18 10:00 White Blood Count 19.7 K/UL (4.8-10.8) H Red Blood Count 3.13 M/UL (4.70-6.10) L Hemoglobin 9.5 G/DL (14.2-18.0) L Hematocrit 29.4 % (42.0-52.0) L Mean Corpuscular Volume 94 FL (80-99) Mean Corpuscular Hemoglobin 30.2 PG (27.0-31.0) Mean Corpuscular Hemoglobin Concent 32.1 G/DL (32.0-36.0) Red Cell Distribution Width 15.1 % (11.6-14.8) H Platelet Count 423 K/UL (150-450) Mean Platelet Volume 8.0 FL (6.5-10.1) Neutrophils (%) (Auto) % (45.0-75.0) Lymphocytes (%) (Auto) % (20.0-45.0) Monocytes (%) (Auto) % (1.0-10.0) Eosinophils (%) (Auto) % (0.0-3.0) Basophils (%) (Auto) % (0.0-2.0) Differential Total Cells Counted 100 Neutrophils % (Manual) 85 % (45-75) H Lymphocytes % (Manual) 2 % (20-45) L Monocytes % (Manual) 3 % (1-10) Eosinophils % (Manual) 0 % (0-3) Basophils % (Manual) 0 % (0-2) Band Neutrophils 10 % (0-8) H Platelet Estimate Adequate Platelet Morphology Normal Hypochromasia 2+ Anisocytosis 1+ Spherocytes 1+ Activated Partial Thromboplast Time 140 SEC (23-33) H Sodium Level 125 MMOL/L (136-145) #L Potassium Level 5.4 MMOL/L (3.5-5.1) H Chloride Level 86 MMOL/L (98-107) L Carbon Dioxide Level 17 MMOL/L (21-32) L Anion Gap 22 mmol/L (5-15) H Blood Urea Nitrogen 106 mg/dL (7-18) H Creatinine 6.7 MG/DL (0.55-1.30) H Estimat Glomerular Filtration Rate mL/min (>60) Glucose Level 347 MG/DL (74-106) #H Lactic Acid Level 3.10 mmol/L (0.4-2.0) H 2.30 mmol/L (0.66-2.22) H Uric Acid 8.9 MG/DL (2.6-7.2) H Calcium Level 7.5 MG/DL (8.5-10.1) L Phosphorus Level 10.8 MG/DL (2.5-4.9) H Magnesium Level 1.8 MG/DL (1.8-2.4) Total Bilirubin 0.7 MG/DL (0.2-1.0) Gamma Glutamyl Transpeptidase 51 U/L (5-85) Aspartate Amino Transf (AST/SGOT) 77 U/L (15-37) H Alanine Aminotransferase (ALT/SGPT) 23 U/L (12-78) Alkaline Phosphatase 98 U/L (46-116) Total Creatine Kinase 196 U/L (26-308) Troponin I 0.527 ng/mL (0.000-0.056) Pro-B-Type Natriuretic Peptide 48381 pg/mL (0-125) H Total Protein 4.9 G/DL (6.4-8.2) L Albumin 1.7 G/DL (3.4-5.0) L Globulin 3.2 g/dL Albumin/Globulin Ratio 0.5 (1.0-2.7) L Objective HEENT: PERRL/EOMI, Orally intubated Cardiovascular: Sinus tachycardia Respiratory/Chest: chest wall non-tender, lungs clear, normal breath sounds, no respiratory distress Abdomen: Post op.with one VELVET drain and incision is leaking yellowish discharge Extremities: No edema Right groin dialysis catheter Everett Stephenson MD May 22, 2018 12:24
--- NOTE | 2018-05-22 12:24 | Nephrology Progress Note ---
Assessment/Plan Problem List: (1) ESRD (end stage renal disease) on dialysis (2) Perforated bowel (3) Hyponatremia (4) Major depression (5) Nausea & vomiting (6) H/O abdominal surgery Assessment: recent (7) Shock Assessment patient on 2 pressors recent abdominal surgery hemodynamically stablized over night Presents with CHF and Low Na ESRD ACS DM HTN h/o GI bleed Depression Plan doing poorly attempt to dialyse today On 2 pressors on steroids on Midodrine weaning as possible insulin for high BS hold dig , check levels, resume as needed no NGT ,On Vent Psych started Zoloft PO ? Will DC ZOLOFT. Has abd surgery 05/15 Perforated bowel graft clotted , has a femoral felice right HOLD ALL MIND ALTERING MEDS - DC all po meds FLUID CHALLENGE pressors as needed BP HR Pain control discussed with RN and Dr Jones IV protonix Subjective ROS Limited/Unobtainable: Yes Objective Objective Last 24 Hour Vital Signs Date Time Temp Pulse Resp B/P (MAP) Pulse Ox O2 Delivery O2 Flow Rate FiO2 05/22/18 11:00 91 26 135/66 (89) 100 05/22/18 11:00 90 134/63 05/22/18 10:52 90 27 30 05/22/18 10:30 85 26 132/61 (84) 100 05/22/18 10:00 89 26 136/50 (78) 100 05/22/18 09:30 89 26 129/61 (83) 100 05/22/18 09:00 92 26 122/60 (80) 100 05/22/18 09:00 100 05/22/18 08:55 93 31 30 05/22/18 08:50 89 42 30 05/22/18 08:45 87 27 30 05/22/18 08:30 89 26 129/56 (80) 100 05/22/18 08:00 98.2 90 26 130/65 (86) 100 05/22/18 08:00 Mechanical Ventilator Mechanical Ventilator 05/22/18 08:00 35 05/22/18 07:00 134/63 05/22/18 07:00 89 26 129/61 (83) 100 05/22/18 06:45 144/61 05/22/18 06:42 87 25 35 05/22/18 06:30 57 26 105/74 (84) 100 05/22/18 06:29 132/63 05/22/18 06:00 132/51 05/22/18 06:00 55 26 98/46 (63) 100 05/22/18 05:30 120/68 05/22/18 05:30 120/68 05/22/18 05:30 120/68 05/22/18 05:30 120/68 05/22/18 05:30 120/68 05/22/18 05:30 120/68 05/22/18 05:30 120/68 05/22/18 05:30 120/68 05/22/18 05:30 120/68 05/22/18 05:30 120/68 05/22/18 05:30 117/69 05/22/18 05:30 96 26 124/60 (81) 100 05/22/18 05:23 93 32 50 05/22/18 05:15 128/70 05/22/18 05:15 128/70 05/22/18 05:15 128/70 05/22/18 05:15 128/70 05/22/18 05:15 124/60 05/22/18 05:15 128/70 05/22/18 05:15 128/70 05/22/18 05:15 128/70 05/22/18 05:15 128/70 05/22/18 05:15 128/70 05/22/18 05:15 128/70 05/22/18 05:00 96 26 138/57 (84) 100 05/22/18 05:00 138/57 05/22/18 05:00 138/57 05/22/18 05:00 138/57 05/22/18 05:00 138/57 05/22/18 05:00 138/57 05/22/18 05:00 138/57 05/22/18 05:00 138/57 05/22/18 05:00 138/57 05/22/18 05:00 138/57 05/22/18 05:00 138/57 05/22/18 05:00 138/57 05/22/18 04:45 161/59 05/22/18 04:30 150/56 05/22/18 04:30 150/56 05/22/18 04:30 150/56 05/22/18 04:30 150/56 05/22/18 04:30 150/56 05/22/18 04:30 150/56 05/22/18 04:30 150/56 05/22/18 04:30 150/56 05/22/18 04:30 150/56 05/22/18 04:30 150/56 05/22/18 04:30 96 26 150/56 (87) 100 05/22/18 04:00 96 26 131/61 (84) 100 05/22/18 04:00 115/05/22/18 04:00 115/05/22/18 04:00 115/05/22/18 04:00 11505/22/18 04:00 11505/22/18 04:00 11505/22/18 04:00 11505/22/18 04:00 11505/22/18 04:00 11505/22/18 04:00 11505/22/18 04:00 11505/22/18 04:00 Mechanical Ventilator Mechanical Ventilator 05/22/18 04:00 60 05/22/18 03:00 95/05/22/18 03:00 9505/22/18 03:00 05/22/18 03:00 05/22/18 03:00 9505/22/18 03:00 95/05/22/18 03:00 95/05/22/18 03:00 9505/22/18 03:00 05/22/18 03:00 05/22/18 03:00 9505/22/18 03:00 97 26 95/23 (47) 100 05/22/18 02:31 98 24 60 05/22/18 02:30 100 26 101/24 (49) 100 05/22/18 02:00 100 26 114/14 (47) 100 05/22/18 02:00 114/14 05/22/18 02:00 114/14 05/22/18 02:00 114/14 05/22/18 02:00 114/14 05/22/18 02:00 114/14 05/22/18 02:00 114/14 05/22/18 02:00 114/14 05/22/18 02:00 114/14 05/22/18 02:00 114/14 05/22/18 02:00 114/14 05/22/18 02:00 114/14 05/22/18 01:30 100 26 110/17 (48) 100 05/22/18 01:19 101 27 70 05/22/18 01:00 115/21 05/22/18 01:00 11505/22/18 01:00 11505/22/18 01:00 11521 05/22/18 01:00 11505/22/18 01:00 11505/22/18 01:00 11505/22/18 01:00 05/22/18 01:00 11505/22/18 01:00 11505/22/18 01:00 11505/22/18 01:00 100 26 115/21 (52) 100 05/22/18 00:30 100 26 113/15 (47) 100 05/22/18 00:11 106/24 05/22/18 00:11 106/24 05/22/18 00:00 107/26 05/22/18 00:00 98.9 100 26 107/26 (53) 100 05/22/18 00:00 80 05/22/18 00:00 Mechanical Ventilator Mechanical Ventilator 05/21/18 23:30 102 29 70 05/21/18 23:00 102/14 05/21/18 23:00 103 28 115/32 (59) 100 05/21/18 22:45 104 28 132/16 (54) 100 05/21/18 22:30 100 28 102/30 (54) 100 05/21/18 22:15 94 28 104/19 (47) 100 05/21/18 22:00 97 28 85/17 (39) 100 05/21/18 22:00 104/19 05/21/18 21:30 103 28 119/16 (50) 100 05/21/18 21:00 104 28 118/35 (62) 100 05/21/18 21:00 118/35 05/21/18 20:53 103 27 100 05/21/18 20:48 103 25 100 05/21/18 20:30 104 28 100/50 (67) 100 05/21/18 20:00 114/35 05/21/18 20:00 80 05/21/18 20:00 103 05/21/18 20:00 99.2 102 28 114/35 (61) 100 05/21/18 20:00 Mechanical Ventilator Mechanical Ventilator 05/21/18 19:30 102 28 112/20 (50) 100 05/21/18 19:20 127/45 05/21/18 19:00 102 28 127/45 (72) 100 05/21/18 18:00 102 28 112/20 (50) 100 05/21/18 17:30 101 29 115/20 (51) 100 05/21/18 17:00 135/37 05/21/18 17:00 135/37 05/21/18 17:00 106 29 135/37 (69) 100 05/21/18 16:31 106 27 40 05/21/18 16:30 106 27 118/30 (59) 100 05/21/18 16:00 Mechanical Ventilator Mechanical Ventilator 05/21/18 16:00 100 05/21/18 16:00 152/36 05/21/18 16:00 152/36 05/21/18 16:00 99.2 106 26 139/35 (69) 100 05/21/18 15:30 106 26 134/46 (75) 100 05/21/18 15:08 108 25 40 05/21/18 15:00 121/25 05/21/18 15:00 121/25 05/21/18 15:00 108 27 121/21 (54) 100 05/21/18 14:30 108 27 123/30 (61) 100 05/21/18 14:07 104/27 05/21/18 14:00 80/15 05/21/18 14:00 107 28 104/27 (52) 100 05/21/18 13:40 69/42 05/21/18 13:30 98.8 109 27 109/29 (55) 97 05/21/18 13:00 110 28 93/27 (49) 97 05/21/18 12:48 91 26 40 05/21/18 12:45 113 95/47 05/21/18 12:30 110 33 110/25 (53) 97 Intake and Output 05/21/18 05/22/18 18:59 06:59 Intake Total 1571.38 ml 2003.298 ml Output Total 320 ml 0 ml Balance 1251.38 ml 2003.298 ml IV Total 1571.38 ml 2003.298 ml Output Urine Total 20 ml 0 ml Gastric Drainage Total 250 ml Drainage Total 50 ml # Bowel Movements 3 Laboratory Tests 05/21/18 12:45: D-Dimer > 35.20H, Cortisol 30.1 05/21/18 16:20: Activated Partial Thromboplast Time 46H 05/21/18 16:45: Lactic Acid Level 5.60H 05/21/18 19:45: White Blood Count 22.3#*H, Red Blood Count 3.42L, Hemoglobin 10.3L, Hematocrit 33.1L, Mean Corpuscular Volume 97, Mean Corpuscular Hemoglobin 30.2, Mean Corpuscular Hemoglobin Concent 31.2L, Red Cell Distribution Width 15.8H, Platelet Count 420, Mean Platelet Volume 8.4, Neutrophils (%) (Auto) , Lymphocytes (%) (Auto) , Monocytes (%) (Auto) , Eosinophils (%) (Auto) , Basophils (%) (Auto) , Differential Total Cells Counted 100, Neutrophils % ( Manual) 51, Lymphocytes % (Manual) 12L, Monocytes % (Manual) 4, Eosinophils % ( Manual) 0, Basophils % (Manual) 0, Band Neutrophils 33H, Platelet Estimate Adequate, Platelet Morphology See comment, Giant Platelets Occasional, Hypochromasia 1+, Anisocytosis 1+ 05/22/18 03:30: White Blood Count 19.7H, Red Blood Count 3.13L, Hemoglobin 9.5L, Hematocrit 29.4L, Mean Corpuscular Volume 94, Mean Corpuscular Hemoglobin 30.2, Mean Corpuscular Hemoglobin Concent 32.1, Red Cell Distribution Width 15.1H, Platelet Count 423, Mean Platelet Volume 8.0, Neutrophils (%) (Auto) , Lymphocytes (%) (Auto) , Monocytes (%) (Auto) , Eosinophils (%) (Auto) , Basophils (%) (Auto) , Differential Total Cells Counted 100, Neutrophils % ( Manual) 85H, Lymphocytes % (Manual) 2L, Monocytes % (Manual) 3, Eosinophils % ( Manual) 0, Basophils % (Manual) 0, Band Neutrophils 10H, Platelet Estimate Adequate, Platelet Morphology Normal, Hypochromasia 2+, Anisocytosis 1+, Spherocytes 1+, Activated Partial Thromboplast Time 140H, Sodium Level 125#L, Potassium Level 5.4H, Chloride Level 86L, Carbon Dioxide Level 17L, Anion Gap 22H, Blood Urea Nitrogen 106H, Creatinine 6.7H, Estimat Glomerular Filtration Rate , Glucose Level 347#H, Lactic Acid Level 3.10H, Uric Acid 8.9H, Calcium Level 7.5L, Phosphorus Level 10.8H, Magnesium Level 1.8, Total Bilirubin 0.7, Gamma Glutamyl Transpeptidase 51, Aspartate Amino Transf (AST/SGOT) 77H, Alanine Aminotransferase (ALT/SGPT) 23, Alkaline Phosphatase 98, Total Creatine Kinase 196, Troponin I 0.527H, Pro-B-Type Natriuretic Peptide 91010Z, Total Protein 4.9L, Albumin 1.7L, Globulin 3.2, Albumin/Globulin Ratio 0.5L 05/22/18 10:00: Lactic Acid Level 2.30H Height (Feet): 5 Height (Inches): 4.00 Weight (Pounds): 185 General Appearance: other - on 2 pressors EENT: other - on veny Cardiovascular: normal rate Respiratory/Chest: decreased breath sounds Abdomen: distended Objective no change Maurilio Arroyo MD May 22, 2018 12:24
[2018-05-22] MEDS: Micafungin 100 MG in NS 110 ML IVPB SCH (12:29)
[2018-05-22] MEDS ORDERED: Vancomycin 1gm/D5W 275ml IVPB SCH ×2 (13:00)
--- NOTE | 2018-05-22 13:15 | NUR ---
NURSE NOTES: Patient's O2 Sats DEC from 100% to 90s to 80s then 70s. Patient's FIO2 was INC to 100% however, O2 sats did not recover. Patient was immediately bagged using the Ambu bag. Total time was approximately 20-25 seconds. Patient returned to 100% SPO2. Will continue to monitor.
--- NOTE | 2018-05-22 13:47 | General Progress Note ---
Assessment/Plan Assessment/Plan # Anemia of chronic disease due to underlying chronic medical issues, multifactorial. --> anemia w/u reordered 05/22 --> Monitor for stability --> trend 10.3-->7.6-->8.9-->10.3-->9.5 --> not bleeding currently # Small bowel perforation, s/p bowel resection, with Gram negative sepsis is on abx In ICU s/p Small bowel resection --> on broad spectrum abx --> on vanc/cefepime as per id--> now changed to zosyn, flagyl, micafungin --> s/p sb resection on 05/15, appreciate surg recs --> on 2 pressors as well,++ vent # Lower extremity edema with an elevated BNP in a patient with renal failure on hemodialysis. --> on HD per Dr. Arroyo. --> currently has improved # Atrial fib w rvr/flutter, being seen by cards, has converted to sr --> Cardiology is following, appreciate recs, echo was reviewed --> Currently denies any chest pain, completely rule out ACS --> EKG showed old inferior and anterior wall W[place], but no ischemia. 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 --> Nephro is following, appreciate recs. HD appeox 3x a week --> On intermittent HD # Respiratory failure on a vent, intubated The time of note does not necessarily reflect the time of encounter Greatly appreciate consultation! Subjective ROS Limited/Unobtainable: Yes Allergies: Coded Allergies: No Known Allergies (Unverified , 11/12/12) Subjective 05/12: Pt resting in bed. No acute events. H/H stable. On abx. VS stable. 05/13: on pressors, on hep gtt, on steriods, abx, got hd, felice catheter in place 12:: CT-A was negative, hep gtt as per cards, abg reviewed, moaning on exam, on ceftriaxone 05/15 :Pt remains in ICU. Currently undergoing HD. Pt on 2 cardiac drips for elevated Bp. WBC remains elevated. H/H stable. 05/16: s/p sb resection, In ICU s/p Small bowel resection on Amiodarone and Levophed drip. HR around 100. 05/17: Orally intubated on Ac 16, Vt 500, P 5 fio2 30%. Pt continues NPO at this time. Right upper arm and right FA IV sites patent and intact at this time. Amio gtt running 05/18: Pt remains in ICU. Pt for STAT HD. WBC remains elevated, afebrile. 05/19: getting hd periodically, no other events, vent to be weaned, labs reviewed, on dilaudid, ativan and fentanyl per pulm 05/21: prognosis is more guarded, no events to report, no f/c, but on two pressors now, on hep gtt for antonio thrombosis, hd as well 3x/week 05/22: on 2 pressors, seen by cards, renal, ryan drain draining improved, still on vent, converted to sr, on amio gtt, lactic acid downtrending, minimally responsive, on heparin gtt as well for antonio thrombus Objective Last 24 Hour Vital Signs Date Time Temp Pulse Resp B/P (MAP) Pulse Ox O2 Delivery O2 Flow Rate FiO2 05/22/18 13:30 73 31 123/61 (81) 100 05/22/18 13:05 72 33 100 05/22/18 13:00 72 31 147/69 (95) 100 05/22/18 12:00 98.0 89 26 127/65 (85) 100 05/22/18 12:00 Mechanical Ventilator Mechanical Ventilator 05/22/18 12:00 30 05/22/18 11:00 91 26 135/66 (89) 100 05/22/18 11:00 90 134/63 05/22/18 10:52 90 27 30 05/22/18 10:30 85 26 132/61 (84) 100 05/22/18 10:00 89 26 136/50 (78) 100 05/22/18 09:30 89 26 129/61 (83) 100 05/22/18 09:00 92 26 122/60 (80) 100 05/22/18 09:00 100 05/22/18 08:55 93 31 30 05/22/18 08:50 89 42 30 05/22/18 08:45 87 27 30 05/22/18 08:30 89 26 129/56 (80) 100 05/22/18 08:00 98.2 90 26 130/65 (86) 100 05/22/18 08:00 Mechanical Ventilator Mechanical Ventilator 05/22/18 08:00 35 05/22/18 07:00 134/63 05/22/18 07:00 89 26 129/61 (83) 100 05/22/18 06:45 144/61 05/22/18 06:42 87 25 35 05/22/18 06:30 57 26 105/74 (84) 100 05/22/18 06:29 132/63 05/22/18 06:00 132/51 05/22/18 06:00 55 26 98/46 (63) 100 05/22/18 05:30 120/68 05/22/18 05:30 120/68 05/22/18 05:30 120/68 05/22/18 05:30 120/68 05/22/18 05:30 120/68 05/22/18 05:30 120/68 05/22/18 05:30 120/68 05/22/18 05:30 120/68 05/22/18 05:30 120/68 05/22/18 05:30 120/68 05/22/18 05:30 117/69 05/22/18 05:30 96 26 124/60 (81) 100 05/22/18 05:23 93 32 50 05/22/18 05:15 128/70 05/22/18 05:15 128/70 05/22/18 05:15 128/70 05/22/18 05:15 128/70 05/22/18 05:15 124/60 05/22/18 05:15 128/70 05/22/18 05:15 128/70 05/22/18 05:15 128/70 05/22/18 05:15 128/70 05/22/18 05:15 128/70 05/22/18 05:15 128/70 05/22/18 05:00 96 26 138/57 (84) 100 05/22/18 05:00 138/57 05/22/18 05:00 138/57 05/22/18 05:00 138/57 05/22/18 05:00 138/57 05/22/18 05:00 138/57 05/22/18 05:00 138/57 05/22/18 05:00 138/57 05/22/18 05:00 138/57 05/22/18 05:00 138/57 05/22/18 05:00 138/57 05/22/18 05:00 138/57 05/22/18 04:45 161/59 05/22/18 04:30 150/56 05/22/18 04:30 150/56 05/22/18 04:30 150/56 05/22/18 04:30 150/56 05/22/18 04:30 150/56 05/22/18 04:30 150/56 05/22/18 04:30 150/56 05/22/18 04:30 150/56 05/22/18 04:30 150/56 05/22/18 04:30 150/56 05/22/18 04:30 96 26 150/56 (87) 100 05/22/18 04:00 96 26 131/61 (84) 100 05/22/18 04:00 115/25 05/22/18 04:00 115/05/22/18 04:00 115/05/22/18 04:00 115/05/22/18 04:00 115/05/22/18 04:00 115/05/22/18 04:00 115/05/22/18 04:00 115/05/22/18 04:00 11505/22/18 04:00 05/22/18 04:00 11505/22/18 04:00 Mechanical Ventilator Mechanical Ventilator 05/22/18 04:00 60 05/22/18 03:00 05/22/18 03:00 05/22/18 03:00 05/22/18 03:00 05/22/18 03:00 05/22/18 03:00 05/22/18 03:00 05/22/18 03:00 05/22/18 03:00 05/22/18 03:00 05/22/18 03:00 05/22/18 03:00 97 26 95/23 (47) 100 05/22/18 02:31 98 24 60 05/22/18 02:30 100 26 101/24 (49) 100 05/22/18 02:00 100 26 114/14 (47) 100 05/22/18 02:00 114/14 05/22/18 02:00 114/14 05/22/18 02:00 114/14 05/22/18 02:00 114/14 05/22/18 02:00 114/14 05/22/18 02:00 114/14 05/22/18 02:00 114/14 05/22/18 02:00 114/14 05/22/18 02:00 114/14 05/22/18 02:00 114/14 05/22/18 02:00 114/14 05/22/18 01:30 100 26 110/17 (48) 100 05/22/18 01:19 101 27 70 05/22/18 01:00 115/21 05/22/18 01:00 115/21 05/22/18 01:00 115/21 05/22/18 01:00 115/21 05/22/18 01:00 115/21 05/22/18 01:00 115/21 05/22/18 01:00 115/21 05/22/18 01:00 115/21 05/22/18 01:00 115/21 05/22/18 01:00 115/21 05/22/18 01:00 115/21 05/22/18 01:00 100 26 115/21 (52) 100 05/22/18 00:30 100 26 113/15 (47) 100 05/22/18 00:11 106/24 05/22/18 00:11 106/24 05/22/18 00:00 107/26 05/22/18 00:00 98.9 100 26 107/26 (53) 100 05/22/18 00:00 80 05/22/18 00:00 Mechanical Ventilator Mechanical Ventilator 05/21/18 23:30 102 29 70 05/21/18 23:00 102/14 05/21/18 23:00 103 28 115/32 (59) 100 05/21/18 22:45 104 28 132/16 (54) 100 05/21/18 22:30 100 28 102/30 (54) 100 05/21/18 22:15 94 28 104/19 (47) 100 05/21/18 22:00 97 28 85/17 (39) 100 05/21/18 22:00 104/19 05/21/18 21:30 103 28 119/16 (50) 100 05/21/18 21:00 104 28 118/35 (62) 100 05/21/18 21:00 118/35 05/21/18 20:53 103 27 100 05/21/18 20:48 103 25 100 05/21/18 20:30 104 28 100/50 (67) 100 05/21/18 20:00 114/35 05/21/18 20:00 80 05/21/18 20:00 103 05/21/18 20:00 99.2 102 28 114/35 (61) 100 05/21/18 20:00 Mechanical Ventilator Mechanical Ventilator 05/21/18 19:30 102 28 112/20 (50) 100 05/21/18 19:20 127/45 05/21/18 19:00 102 28 127/45 (72) 100 05/21/18 18:00 102 28 112/20 (50) 100 05/21/18 17:30 101 29 115/20 (51) 100 05/21/18 17:00 135/37 05/21/18 17:00 135/37 05/21/18 17:00 106 29 135/37 (69) 100 05/21/18 16:31 106 27 40 05/21/18 16:30 106 27 118/30 (59) 100 05/21/18 16:00 Mechanical Ventilator Mechanical Ventilator 05/21/18 16:00 100 05/21/18 16:00 152/36 05/21/18 16:00 152/36 05/21/18 16:00 99.2 106 26 139/35 (69) 100 05/21/18 15:30 106 26 134/46 (75) 100 05/21/18 15:08 108 25 40 05/21/18 15:00 121/25 05/21/18 15:00 121/25 05/21/18 15:00 108 27 121/21 (54) 100 05/21/18 14:30 108 27 123/30 (61) 100 05/21/18 14:07 104/27 05/21/18 14:00 80/15 05/21/18 14:00 107 28 104/ (52) 100 Intake and Output 05/21/18 05/22/18 18:59 06:59 Intake Total 1571.38 ml 2004.298 ml Output Total 320 ml 0 ml Balance 1251.38 ml 2004.298 ml IV Total 1571.38 ml 2004.298 ml Output Urine Total 20 ml 0 ml Gastric Drainage Total 250 ml Drainage Total 50 ml # Bowel Movements 3 Laboratory Tests 05/21/18 16:20: Activated Partial Thromboplast Time 46H 05/21/18 16:45: Lactic Acid Level 5.60H 05/21/18 19:45: White Blood Count 22.3#*H, Red Blood Count 3.42L, Hemoglobin 10.3L, Hematocrit 33.1L, Mean Corpuscular Volume 97, Mean Corpuscular Hemoglobin 30.2, Mean Corpuscular Hemoglobin Concent 31.2L, Red Cell Distribution Width 15.8H, Platelet Count 420, Mean Platelet Volume 8.4, Neutrophils (%) (Auto) , Lymphocytes (%) (Auto) , Monocytes (%) (Auto) , Eosinophils (%) (Auto) , Basophils (%) (Auto) , Differential Total Cells Counted 100, Neutrophils % ( Manual) 51, Lymphocytes % (Manual) 12L, Monocytes % (Manual) 4, Eosinophils % ( Manual) 0, Basophils % (Manual) 0, Band Neutrophils 33H, Platelet Estimate Adequate, Platelet Morphology See comment, Giant Platelets Occasional, Hypochromasia 1+, Anisocytosis 1+ 05/22/18 03:30: Activated Partial Thromboplast Time 140H, Lactic Acid Level 3.10H, White Blood Count 19.7H, Red Blood Count 3.13L, Hemoglobin 9.5L, Hematocrit 29.4L, Mean Corpuscular Volume 94, Mean Corpuscular Hemoglobin 30.2, Mean Corpuscular Hemoglobin Concent 32.1, Red Cell Distribution Width 15.1H, Platelet Count 423, Mean Platelet Volume 8.0, Neutrophils (%) (Auto) , Lymphocytes (%) (Auto) , Monocytes (%) (Auto) , Eosinophils (%) (Auto) , Basophils (%) (Auto) , Differential Total Cells Counted 100, Neutrophils % (Manual) 85H, Lymphocytes % (Manual) 2L, Monocytes % (Manual) 3, Eosinophils % (Manual) 0, Basophils % ( Manual) 0, Band Neutrophils 10H, Platelet Estimate Adequate, Platelet Morphology Normal, Hypochromasia 2+, Anisocytosis 1+, Spherocytes 1+, Sodium Level 125#L, Potassium Level 5.4H, Chloride Level 86L, Carbon Dioxide Level 17L , Anion Gap 22H, Blood Urea Nitrogen 106H, Creatinine 6.7H, Estimat Glomerular Filtration Rate , Glucose Level 347#H, Uric Acid 8.9H, Calcium Level 7.5L, Phosphorus Level 10.8H, Magnesium Level 1.8, Total Bilirubin 0.7, Gamma Glutamyl Transpeptidase 51, Aspartate Amino Transf (AST/SGOT) 77H, Alanine Aminotransferase (ALT/SGPT) 23, Alkaline Phosphatase 98, Total Creatine Kinase 196, Troponin I 0.527H, C-Reactive Protein, Quantitative 40.3H, Pro-B-Type Natriuretic Peptide 07886W, Total Protein 4.9L, Albumin 1.7L, Globulin 3.2, Albumin/Globulin Ratio 0.5L 05/22/18 10:00: Lactic Acid Level 2.30H 05/22/18 13:10: Activated Partial Thromboplast Time [Pending] Height (Feet): 5 Height (Inches): 4.00 Weight (Pounds): 185 Objective PHYSICAL EXAMINATION: VITAL SIGNS: Have been reviewed HEENT: PERRLA. NECK: Supple. No lymphadenopathy. CHEST: ++ intubated CARDIOVASCULAR: Tachycardic. GASTROINTESTINAL: Distended. Positive bowel sounds. Nontender. No organomegaly. ++ ryan drain in place EXTREMITY: 2+ edema. NEURO: responsive to simple command Reinaldo Leon MD May 22, 2018 13:47
[2018-05-22 14:29] LABS: % IRON SATURATION 23 % (15-50); IRON 16 ug/dL (50-175); TOTAL IRON BINDING CAPACITY 71 ug/dL (250-450)
--- NOTE | 2018-05-22 15:00 | NUR ---
NURSE NOTES: Received patient, from charge nurse jenna. Patient intubated 7.5/25 cm lipline AC 16 VT 500 FiO2 100% Peep of 5. Patient remains NPO. Jelly like loose stool, brown, large amount. changed, turned and repositioned. VELVET drain at left side. R fem felice cath with pigtail. R UA 20 R AC 20. Patient on Vasopressin 0.04 u/min, Levophed 14 mcg/min, amiodarone 0.5 mg/hr. Heparin drip was stopped per protocol and will be resumed at 15:30 at 11 u/kg/hr with PTT scheduled at 21:30. Patient opens eyes but is weak unable to follow commands. Nods at times yes/no. Lung sounds diminished bilaterally. Hypoactive bowel sounds on all 4 quadrants. Distended abdomen. Surgical janell present on abdomen - green residue from sutures present. Dr. Chandler aware per endorsing nurse Jenna. No new orders at this time. Will continue plan of care.
[2018-05-22 15:08] LABS: FERRITIN > 2000 NG/ML (8-388)
[2018-05-22] MEDS: Heparin 25,000u/D5W 500ml 500 ML IV SCH ×2 (15:40→20:08)
[2018-05-22] MEDS ORDERED: Amiodarone 900 MG in D5W 500ml 482 ML IV SCH (15:45)
[2018-05-22] MEDS ORDERED: NS 500ML ONE (16:33)
[2018-05-22] MEDS ORDERED: D5W 275ml ONE (16:33)
[2018-05-22] MEDS ORDERED: NS 275ml ONE (16:33)
--- NOTE | 2018-05-22 17:00 | NUR ---
NURSE NOTES: Patient turned and repositioned. No changes at this time. Will continue plan of care.
--- NOTE | 2018-05-22 17:43 | General Progress Note ---
Assessment/Plan Problem List: (1) ACS (acute coronary syndrome) ICD Codes: I24.9 - Acute ischemic heart disease, unspecified SNOMED: 099722612 (2) ESRD (end stage renal disease) on dialysis ICD Codes: N18.6 - End stage renal disease; Z99.2 - Dependence on renal dialysis SNOMED: 605788054 (3) Depression ICD Codes: F32.9 - Major depressive disorder, single episode, unspecified SNOMED: 78938384 (4) Anemia ICD Codes: D64.9 - Anemia, unspecified SNOMED: 282710666 (5) Sacral decubitus ulcer, stage III ICD Codes: L89.153 - Pressure ulcer of sacral region, stage 3 SNOMED: 959587439, 368166390 (6) Major depression ICD Codes: F32.9 - Major depressive disorder, single episode, unspecified SNOMED: 886786207 (7) anxiety disorder (8) Atrial fibrillation ICD Codes: I48.91 - Unspecified atrial fibrillation SNOMED: 44917002 (9) Hypoxemia ICD Codes: R09.02 - Hypoxemia SNOMED: 569597286 (10) Hypotension ICD Codes: I95.9 - Hypotension, unspecified SNOMED: 44087518 (11) Shock ICD Codes: R57.9 - Shock, unspecified SNOMED: 42569585 (12) Elevated d-dimer ICD Codes: R79.89 - Other specified abnormal findings of blood chemistry SNOMED: 573394326 (13) encephalopathy due to metabolic factor Status: progressing Assessment/Plan respiratory failure intubated on less pressor critical condition in septic shock getting mildly better esrd on hd s/p septic shock pna s/p lap choly w perforation (in different hospital) spoke w dr fragoso more alert Subjective ROS Limited/Unobtainable: Yes Allergies: Coded Allergies: No Known Allergies (Unverified , 11/12/12) Objective Last 24 Hour Vital Signs Date Time Temp Pulse Resp B/P (MAP) Pulse Ox O2 Delivery O2 Flow Rate FiO2 05/22/18 17:28 Mechanical Ventilator 60 05/22/18 17:20 71 35 60 05/22/18 17:00 77 25 95/60 (72) 100 05/22/18 16:30 75 30 115/64 (81) 100 05/22/18 16:00 74 30 120/66 (84) 98 05/22/18 16:00 100 05/22/18 16:00 Mechanical Ventilator Mechanical Ventilator 05/22/18 15:30 98.7 75 28 118/68 (85) 100 05/22/18 15:20 69 35 60 05/22/18 15:00 72 30 122/66 (84) 100 05/22/18 14:30 70 34 127/63 (84) 100 05/22/18 14:00 71 34 139/56 (83) 100 05/22/18 13:30 73 31 123/61 (81) 100 05/22/18 13:05 72 33 100 05/22/18 13:00 72 31 147/69 (95) 100 05/22/18 12:00 98.0 89 26 127/65 (85) 100 05/22/18 12:00 Mechanical Ventilator Mechanical Ventilator 05/22/18 12:00 30 05/22/18 11:00 91 26 135/66 (89) 100 05/22/18 11:00 90 134/63 05/22/18 10:52 90 27 30 05/22/18 10:30 85 26 132/61 (84) 100 05/22/18 10:00 89 26 136/50 (78) 100 05/22/18 09:30 89 26 129/61 (83) 100 05/22/18 09:00 92 26 122/60 (80) 100 05/22/18 09:00 100 05/22/18 08:55 93 31 30 05/22/18 08:50 89 42 30 05/22/18 08:45 87 27 30 05/22/18 08:30 89 26 129/56 (80) 100 05/22/18 08:00 98.2 90 26 130/65 (86) 100 05/22/18 08:00 Mechanical Ventilator Mechanical Ventilator 05/22/18 08:00 35 05/22/18 07:00 134/63 05/22/18 07:00 89 26 129/61 (83) 100 05/22/18 06:45 144/61 05/22/18 06:42 87 25 35 05/22/18 06:30 57 26 105/74 (84) 100 05/22/18 06:29 132/63 05/22/18 06:00 132/51 05/22/18 06:00 55 26 98/46 (63) 100 05/22/18 05:30 120/68 05/22/18 05:30 120/68 05/22/18 05:30 120/68 05/22/18 05:30 120/68 05/22/18 05:30 120/68 05/22/18 05:30 120/68 05/22/18 05:30 120/68 05/22/18 05:30 120/68 05/22/18 05:30 120/68 05/22/18 05:30 120/68 05/22/18 05:30 117/69 05/22/18 05:30 96 26 124/60 (81) 100 05/22/18 05:23 93 32 50 05/22/18 05:15 128/70 05/22/18 05:15 128/70 05/22/18 05:15 128/70 05/22/18 05:15 128/70 05/22/18 05:15 124/60 05/22/18 05:15 128/70 05/22/18 05:15 128/70 05/22/18 05:15 128/70 05/22/18 05:15 128/70 05/22/18 05:15 128/70 05/22/18 05:15 128/70 05/22/18 05:00 96 26 138/57 (84) 100 05/22/18 05:00 138/57 05/22/18 05:00 138/57 05/22/18 05:00 138/57 05/22/18 05:00 138/57 05/22/18 05:00 138/57 05/22/18 05:00 138/57 05/22/18 05:00 138/57 05/22/18 05:00 138/57 05/22/18 05:00 138/57 05/22/18 05:00 138/57 05/22/18 05:00 138/57 05/22/18 04:45 161/59 05/22/18 04:30 150/56 05/22/18 04:30 150/56 05/22/18 04:30 150/56 05/22/18 04:30 150/56 05/22/18 04:30 150/56 05/22/18 04:30 150/56 05/22/18 04:30 150/56 05/22/18 04:30 150/56 05/22/18 04:30 150/56 05/22/18 04:30 150/56 05/22/18 04:30 96 26 150/56 (87) 100 05/22/18 04:00 96 26 131/61 (84) 100 05/22/18 04:00 115/25 05/22/18 04:00 115/05/22/18 04:00 115/05/22/18 04:00 115/05/22/18 04:00 115/05/22/18 04:00 11505/22/18 04:00 11505/22/18 04:00 11505/22/18 04:00 11505/22/18 04:00 11505/22/18 04:00 05/22/18 04:00 Mechanical Ventilator Mechanical Ventilator 05/22/18 04:00 60 05/22/18 03:00 95/05/22/18 03:00 95/05/22/18 03:00 95/05/22/18 03:00 95/05/22/18 03:00 95/23 05/22/18 03:00 95/23 05/22/18 03:00 95/05/22/18 03:00 95/05/22/18 03:00 95/05/22/18 03:00 95/05/22/18 03:00 95/05/22/18 03:00 97 26 95/23 (47) 100 05/22/18 02:31 98 24 60 05/22/18 02:30 100 26 101/24 (49) 100 05/22/18 02:00 100 26 114/14 (47) 100 05/22/18 02:00 114/14 05/22/18 02:00 114/14 05/22/18 02:00 114/14 05/22/18 02:00 114/14 05/22/18 02:00 114/14 05/22/18 02:00 114/14 05/22/18 02:00 114/14 05/22/18 02:00 114/14 05/22/18 02:00 114/14 05/22/18 02:00 114/14 05/22/18 02:00 114/14 05/22/18 01:30 100 26 110/17 (48) 100 05/22/18 01:19 101 27 70 05/22/18 01:00 115/21 05/22/18 01:00 115/05/22/18 01:00 115/05/22/18 01:00 115/05/22/18 01:00 115/05/22/18 01:00 115/05/22/18 01:00 115/05/22/18 01:00 115/05/22/18 01:00 115/05/22/18 01:00 11505/22/18 01:00 11505/22/18 01:00 100 26 115/21 (52) 100 05/22/18 00:30 100 26 113/15 (47) 100 05/22/18 00:11 106/24 05/22/18 00:11 106/24 05/22/18 00:00 107/26 05/22/18 00:00 98.9 100 26 107/26 (53) 100 05/22/18 00:00 80 05/22/18 00:00 Mechanical Ventilator Mechanical Ventilator 05/21/18 23:30 102 29 70 05/21/18 23:00 102/14 05/21/18 23:00 103 28 115/32 (59) 100 05/21/18 22:45 104 28 132/16 (54) 100 05/21/18 22:30 100 28 102/30 (54) 100 05/21/18 22:15 94 28 104/19 (47) 100 05/21/18 22:00 97 28 85/17 (39) 100 05/21/18 22:00 104/19 05/21/18 21:30 103 28 119/16 (50) 100 05/21/18 21:00 104 28 118/35 (62) 100 05/21/18 21:00 118/35 05/21/18 20:53 103 27 100 05/21/18 20:48 103 25 100 05/21/18 20:30 104 28 100/50 (67) 100 05/21/18 20:00 114/35 05/21/18 20:00 80 1/1/19 20:00 103 05/21/18 20:00 99.2 102 28 114/35 (61) 100 05/21/18 20:00 Mechanical Ventilator Mechanical Ventilator 05/21/18 19:30 102 28 112/20 (50) 100 05/21/18 19:20 127/45 05/21/18 19:00 102 28 127/45 (72) 100 05/21/18 18:00 102 28 112/20 (50) 100 Intake and Output 05/21/18 05/22/18 18:59 06:59 Intake Total 1571.38 ml 2004.298 ml Output Total 320 ml 0 ml Balance 1251.38 ml 2004.298 ml IV Total 1571.38 ml 2004.298 ml Output Urine Total 20 ml 0 ml Gastric Drainage Total 250 ml Drainage Total 50 ml # Bowel Movements 3 Laboratory Tests 05/21/18 19:45: White Blood Count 22.3#*H, Red Blood Count 3.42L, Hemoglobin 10.3L, Hematocrit 33.1L, Mean Corpuscular Volume 97, Mean Corpuscular Hemoglobin 30.2, Mean Corpuscular Hemoglobin Concent 31.2L, Red Cell Distribution Width 15.8H, Platelet Count 420, Mean Platelet Volume 8.4, Neutrophils (%) (Auto) , Lymphocytes (%) (Auto) , Monocytes (%) (Auto) , Eosinophils (%) (Auto) , Basophils (%) (Auto) , Differential Total Cells Counted 100, Neutrophils % ( Manual) 51, Lymphocytes % (Manual) 12L, Monocytes % (Manual) 4, Eosinophils % ( Manual) 0, Basophils % (Manual) 0, Band Neutrophils 33H, Platelet Estimate Adequate, Platelet Morphology See comment, Giant Platelets Occasional, Hypochromasia 1+, Anisocytosis 1+ 05/22/18 03:30: White Blood Count 19.7H, Red Blood Count 3.13L, Hemoglobin 9.5L, Hematocrit 29.4L, Mean Corpuscular Volume 94, Mean Corpuscular Hemoglobin 30.2, Mean Corpuscular Hemoglobin Concent 32.1, Red Cell Distribution Width 15.1H, Platelet Count 423, Mean Platelet Volume 8.0, Neutrophils (%) (Auto) , Lymphocytes (%) (Auto) , Monocytes (%) (Auto) , Eosinophils (%) (Auto) , Basophils (%) (Auto) , Differential Total Cells Counted 100, Neutrophils % ( Manual) 85H, Lymphocytes % (Manual) 2L, Monocytes % (Manual) 3, Eosinophils % ( Manual) 0, Basophils % (Manual) 0, Band Neutrophils 10H, Platelet Estimate Adequate, Platelet Morphology Normal, Hypochromasia 2+, Anisocytosis 1+, Spherocytes 1+, Activated Partial Thromboplast Time 140H, Sodium Level 125#L, Potassium Level 5.4H, Chloride Level 86L, Carbon Dioxide Level 17L, Anion Gap 22H, Blood Urea Nitrogen 106H, Creatinine 6.7H, Estimat Glomerular Filtration Rate , Glucose Level 347#H, Lactic Acid Level 3.10H, Uric Acid 8.9H, Calcium Level 7.5L, Phosphorus Level 10.8H, Magnesium Level 1.8, Iron Level 16L, Total Iron Binding Capacity 71L, Percent Iron Saturation 23, Unsaturated Iron Binding 55L, Ferritin > 2000H, Total Bilirubin 0.7, Gamma Glutamyl Transpeptidase 51, Aspartate Amino Transf (AST/SGOT) 77H, Alanine Aminotransferase (ALT/SGPT) 23, Alkaline Phosphatase 98, Total Creatine Kinase 196, Troponin I 0.527H, C- Reactive Protein, Quantitative 40.3H, Pro-B-Type Natriuretic Peptide 46349J, Total Protein 4.9L, Albumin 1.7L, Globulin 3.2, Albumin/Globulin Ratio 0.5L 05/22/18 10:00: Lactic Acid Level 2.30H 05/22/18 13:10: Activated Partial Thromboplast Time > 150*H 05/22/18 17:10: Lactic Acid Level [Pending] Height (Feet): 5 Height (Inches): 4.00 Weight (Pounds): 185 EENT: PERRL/EOMI Cardiovascular: normal rate, regular rhythm Abdomen: soft Samantha Head MD May 22, 2018 17:43
--- NOTE | 2018-05-22 19:00 | NUR ---
NURSE NOTES: Patient could not tolerate dialysis. Per Dr. Arroyo it was stopped. Patient had 200 cc input. Nothing was taken out. Will continue plan of care.
--- NOTE | 2018-05-22 19:16 | NUR ---
HAND-OFF: Report given to Yuly AGUILA using SBAR. VSS. No distress noted.
--- NOTE | 2018-05-22 19:38 | NUR ---
RESPIRATORY NOTE: Received patient on vent settings of AC Rate 16, Vt 500, PEEP +5, FIO2 60%. Patient found obtunded and responsive to suction. Ventilator plugged in to red outlet and ambu bag at bed side. Patient is stable at this time, and will continue to monitor.
--- NOTE | 2018-05-22 20:00 | NUR ---
NURSE NOTES: Received Pt on bed with eyes closed. Arousable to name. opens eyes but noted to be very lethargic. sinus rhythm on the monitor. Orally intubated On Ac 16, VT 500 fio2 60%. PEEP 5. Sat 88-95%. OGT noted, Pt currently NPO at this time. Right arm IV sites patent and intact at this time. Right Femoral Dialysis cath Noted running, Amio @ 0.5mg/min, Vasopressin 0.04ml/hr, Levophed running @ 14 mcg/min. Heparin gtt continues @ 11 u/kg/hr Abdomen noted with no dressing, Some drainage noted from the incision site. SCD's on. Bed in lowest position, side rails upx3. Will continue to monitor.
--- NOTE | 2018-05-22 20:00 | NUR ---
NURSE NOTES: Received pt in bed with eyes opens. AOx4. SR on the monitor. On room air at this time. Pt removes and places 2L NC. Sat 95% at this time. Pt having dinner at this time. Right Femoral Dialysis cath at this time. Dialysis cath being used for dopamine. Dopamine currently running @ 10mcg/min. Pt aneuric but gets out of bed to use bedside commode. Bed in lowest position, side rails upx3. No signs of distress noted. Will continue to monitor Addendum: 05/22/18 at 2127 by MUNIR PETERSON RN Wrong patient
[2018-05-22] MEDS: Dyna-Hex 2% Top Sol 2oz TOPIC SCH (20:05)
--- NOTE | 2018-05-22 22:00 | NUR ---
NURSE NOTES: Pt continues on heparin gtt at 11u/kg/hr, Levophed running at 30 mcg/min. Amio gtt running as ordered. no signs of distress noted. Will continue with plan of care.
--- NOTE | 2018-05-22 23:00 | NUR ---
NURSE NOTES: Heparin gtt held at this time as per protocol. will resume in 30 min
--- NOTE | 2018-05-22 23:35 | NUR ---
NURSE NOTES: Heparin gtt resumed. new rate 8 u/kg/hr.Levophed titrated down now at 28 mcg/min. will continue with plan of care
[2018-05-23] VITALS (41 sets, daily range): BP systolic 90–162; BP diastolic 19–96
--- NOTE | 2018-05-23 02:48 | NUR ---
NURSE NOTES: Pt noted to be more awake at this time. When called by his name patient opens eyes. asked about pain and able to nod yes. Dilaudid given. please see eMAR. Will continue to monitor
--- NOTE | 2018-05-23 03:45 | NUR ---
NURSE NOTES: Morning care provided at this time. Abdominal surgical site continues to ooze green like fluid. Left lower quadrant VELVET drainage noted with serious brownish fluid. OGT remains clamped at this time. CHG bath provided. Sacral dressing applies. abdominal blisters remain dry and intact. Will continue to monitor
--- NOTE | 2018-05-23 05:30 | NUR ---
NURSE NOTES: PTT drawn at this time. Heparin gtt continues at 8 u/kg/hr, Levophed running at 21 mcg/min, amio running 0.5 mg/min, Vasopressin 0.04 ml/hr. No signs of bleeding noted. Oral care provided at this time. Will continue with plan of care.
[2018-05-23] MEDS: Piperacillin/Tazobactam 2.25 GM in D5W 55 ML IVPB SCH ×3 (06:09→22:15)
[2018-05-23] MEDS: NovoLOG Insulin Flexpen SUBQ SCH ×4 (06:10→21:27)
[2018-05-23] MEDS: Norepinephrine Bitartrate 8 MG in D5W 500ml 492 ML IV SCH ×5 (06:10→23:53)
[2018-05-23] MEDS: Hydrocortisone 100mg Inj IV SCH ×3 (06:17→22:15)
[2018-05-23 06:25] LABS: AMMONIA < 10 umol/L (11-32)
[2018-05-23 07:00] LABS: ALANINE AMINOTRANSFERASE 45 U/L (12-78); ALBUMIN 1.3 G/DL (3.4-5.0); ALBUMIN/GLOBULIN RATIO 0.4 (1.0-2.7); ALKALINE PHOSPHATASE 129 U/L (46-116); ANION GAP 23 mmol/L (5-15); ASPARTATE AMINO TRANSFERASE 144 U/L (15-37); BILIRUBIN,TOTAL 0.9 MG/DL (0.2-1.0); BLOOD UREA NITROGEN 102 mg/dL (7-18); CALCIUM 7.1 MG/DL (8.5-10.1); CARBON DIOXIDE 18 MMOL/L (21-32); CHLORIDE 86 MMOL/L (98-107); CREATININE 6.3 MG/DL (0.55-1.30); POTASSIUM 4.9 MMOL/L (3.5-5.1); SODIUM 127 MMOL/L (136-145)
--- NOTE | 2018-05-23 07:04 | NUR ---
HAND-OFF: Report given to Ani RN using SBAR. Pt continues on Heparin gtt at this time. No rate change yet. VS Stable.
[2018-05-23] MEDS ORDERED: Heparin 25,000u/D5W 500ml 500 ML IV SCH (07:30)
[2018-05-23] MEDS ORDERED: Heparin 5000 units/ml inj IV SCH (07:30)
[2018-05-23] MEDS ORDERED: Vancomycin 1gm/D5W 275ml IVPB SCH ×2 (08:00)
--- NOTE | 2018-05-23 08:00 | NUR ---
NURSE NOTES: Received Pt on bed with eyes closed. Arousable to name. opens eyes but noted to be very lethargic. sinus rhythm on the monitor. Orally intubated On Ac 16, VT 500 fio2 60%. PEEP 5. Sat 100%. OGT noted, Pt currently NPO at this time. Right arm IV sites patent and intact at this time. Right Femoral Dialysis cath Noted running, Amio @ 0.5mg/min, Vasopressin 0.04ml/hr, Levophed running @ 14 mcg/min. Heparin gtt continues @ 11 u/kg/hr per recent pharmacy dosing change. PTT scheduled for 14:00. Abdomen noted with no dressing, Some drainage noted from the incision site. SCD's on. Bed in lowest position, side rails upx3, hob elevated, call light within reach. Will continue to monitor.
[2018-05-23 08:24] LABS: GAMMA GLUTAMYL TRANSPEPTIDASE 55 U/L (5-85); PHOSPHORUS 10.6 MG/DL (2.5-4.9)
[2018-05-23] MEDS: Pantoprazole Inj IVP SCH ×2 (09:02→21:26)
--- NOTE | 2018-05-23 09:03 | General Progress Note ---
Assessment/Plan Assessment/Plan (1) Abdominal pain (2) S/p Lap Cholecystectomy (3) Encephalopathy possible septic shock (4) ESRD on hemodialysis (5) S/p emergent exploratory laboratory small bowel resection omentectomy due to small bowel perforation in distal ileum Patient to be continued on Dilaudid and Tylenol. Parameters to be continued. D/w Dr. Busby and he concurred. Subjective Date patient seen: May 23, 2018 Time patient seen: 08:30 - am ROS Limited/Unobtainable: Yes Allergies: Coded Allergies: No Known Allergies (Unverified , 11/12/12) Subjective Patient is still intubated and in bed showing no signs of pain at this time. One dose of Dilaudid has been administered in the last 24hrs. D/w nurse and staff. Objective Last 24 Hour Vital Signs Date Time Temp Pulse Resp B/P (MAP) Pulse Ox O2 Delivery O2 Flow Rate FiO2 05/23/18 08:00 98.3 72 30 128/22 (57) 100 05/23/18 08:00 Mechanical Ventilator Mechanical Ventilator 05/23/18 08:00 60 05/23/18 07:30 70 35 135/30 (65) 100 05/23/18 07:20 75 37 60 05/23/18 07:00 69 35 152/26 (68) 100 05/23/18 06:10 99/21 05/23/18 06:00 69 27 92/35 (54) 100 05/23/18 05:30 69 32 131/31 (64) 100 05/23/18 05:06 65 27 60 05/23/18 05:00 67 32 127/19 (55) 100 05/23/18 04:30 80 32 98/19 (45) 100 05/23/18 04:00 60 05/23/18 04:00 84 05/23/18 04:00 98.3 83 32 144/32 (69) 100 05/23/18 04:00 Mechanical Ventilator Mechanical Ventilator 05/23/18 03:30 84 32 104/20 (48) 100 05/23/18 03:26 96 35 60 05/23/18 03:00 88 34 144/46 (78) 100 05/23/18 02:30 84 38 124/69 (87) 100 05/23/18 02:00 93 38 157/96 (116) 100 05/23/18 01:30 92 38 155/86 (109) 100 05/23/18 01:13 96 36 60 05/23/18 01:00 91 38 162/76 (104) 100 05/23/18 00:30 82 36 122/71 (88) 100 05/23/18 00:00 Mechanical Ventilator Mechanical Ventilator 05/23/18 00:00 106 05/23/18 00:00 98.3 84 36 111/60 (77) 100 05/22/18 23:46 177/77 05/22/18 23:32 111 35 60 05/22/18 23:30 112 35 79/41 (54) 98 05/22/18 23:00 112 35 108/63 (78) 98 05/22/18 22:30 114 34 122/70 (87) 99 05/22/18 22:00 120 33 120/89 (99) 99 05/22/18 21:39 109 35 60 05/22/18 21:30 118 33 155/74 (101) 99 05/22/18 21:00 118 34 97/70 (79) 91 05/22/18 20:30 86 32 64/32 (43) 89 05/22/18 20:00 60 05/22/18 20:00 Mechanical Ventilator Mechanical Ventilator 05/22/18 20:00 115 33 73/41 (52) 97 05/22/18 20:00 111 05/22/18 19:38 126 36 60 05/22/18 19:30 98.0 112 30 80/46 (57) 100 05/22/18 19:00 77 30 114/76 (89) 100 05/22/18 18:30 70 28 110/60 (77) 100 05/22/18 18:00 65 30 90/55 (67) 100 05/22/18 17:30 70 25 92/55 (67) 100 05/22/18 17:28 Mechanical Ventilator 60 05/22/18 17:20 71 35 60 05/22/18 17:00 77 25 95/60 (72) 100 05/22/18 16:30 75 30 115/64 (81) 100 05/22/18 16:00 74 30 120/66 (84) 98 05/22/18 16:00 100 05/22/18 16:00 Mechanical Ventilator Mechanical Ventilator 05/22/18 15:30 98.7 75 28 118/68 (85) 100 05/22/18 15:20 69 35 60 05/22/18 15:00 72 30 122/66 (84) 100 05/22/18 14:30 70 34 127/63 (84) 100 05/22/18 14:00 71 34 139/56 (83) 100 05/22/18 13:30 73 31 123/61 (81) 100 05/22/18 13:05 72 33 100 05/22/18 13:00 72 31 147/69 (95) 100 05/22/18 12:00 98.0 89 26 127/65 (85) 100 05/22/18 12:00 Mechanical Ventilator Mechanical Ventilator 05/22/18 12:00 30 05/22/18 11:00 91 26 135/66 (89) 100 05/22/18 11:00 90 134/63 05/22/18 10:52 90 27 30 05/22/18 10:30 85 26 132/61 (84) 100 05/22/18 10:00 89 26 136/50 (78) 100 05/22/18 09:30 89 26 129/61 (83) 100 Intake and Output 05/22/18 05/23/18 19:00 07:00 Intake Total 862.575 ml 1267.83 ml Output Total 30 ml 26 ml Balance 832.575 ml 1241.83 ml IV Total 862.575 ml 1067.83 ml Hemodialysis 200 ml Output Urine Total 0 ml 1 ml Drainage Total 30 ml 25 ml # Bowel Movements 1 2 Laboratory Tests 05/22/18 10:00: Lactic Acid Level 2.30H 05/22/18 13:10: Activated Partial Thromboplast Time > 150*H 05/22/18 17:10: Lactic Acid Level 4.20H 05/22/18 21:35: Lactic Acid Level 6.10H, Activated Partial Thromboplast Time 113H 05/23/18 05:48: Activated Partial Thromboplast Time 47H, Sodium Level 127L, Potassium Level 4.9 , Chloride Level 86L, Carbon Dioxide Level 18L, Anion Gap 23H, Blood Urea Nitrogen 102H, Creatinine 6.3H, Estimat Glomerular Filtration Rate , Glucose Level 181#H, Lactic Acid Level 4.70H, Uric Acid 8.4H, Calcium Level 7.1L, Phosphorus Level 10.6H, Magnesium Level 1.7L, Total Bilirubin 0.9, Gamma Glutamyl Transpeptidase 55, Aspartate Amino Transf (AST/SGOT) 144H, Alanine Aminotransferase (ALT/SGPT) 45, Alkaline Phosphatase 129H, Ammonia < 10L, Troponin I 0.882H, Pro-B-Type Natriuretic Peptide 36303H, Total Protein 4.6L, Albumin 1.3L, Globulin 3.3, Albumin/Globulin Ratio 0.4L, Random Vancomycin Level 6.0 Height (Feet): 5 Height (Inches): 4.00 Weight (Pounds): 184 Objective GENERAL: Intubated. LUNGS: Decreased breath sounds bilaterally. HEART: S1 S2 Regular. ABDOMEN: Tenderness to palpation. Bandages and drain noted. EXTREMITIES: No cyanosis. No clubbing. Sid Holland May 23, 2018 09:03
--- NOTE | 2018-05-23 10:00 | NUR ---
NURSE NOTES: Patient turned and repositioned. Green leakage from suture site noted and reported to Dr. Chandler. No new orders at this time. Will continue plan of care.
--- NOTE | 2018-05-23 10:03 | Cardiac Electrophysiology PN ---
Assessment/Plan Assessment/Plan 1. Atrial fib/flutter with RVR .Converted to SR. On Amio drip. Still NPO Last Dig level 2.5 on 05/16/18 but off Dig 2. Chest pain. No NV. EKG showed old inferior and anterior wall NV, but no ischemia. ECHO normal LV function 3. End-stage renal disease, on hemodialysis per Dr. Arroyo. 4. Septic shock, on 2 pressors today. Off Dopamine though Dr Chandler reevaluated. 2D Echo EF 60% and PA pressure 63 ? PE. DD 35.2. Unstable for chest CT angio. Started on heparin drip for possible PE 5. History of kidney stones. 6. History of psychiatric problems, dementia. 7. Hx of lap matthew. S/P SB resection 05/15/18 with drain Has yellowish discharge from incision. On iv Abx per ID FU DR Chandler 8. Respiratory failure, intubated on the vent. SAW RN Subjective Subjective In ICU on Amiodarone drip 0.5 mg , Levophed drip and Vasopressin drip. On the Vent and 60% Fio2. Still draining from incision Objective Last 24 Hour Vital Signs Date Time Temp Pulse Resp B/P (MAP) Pulse Ox O2 Delivery O2 Flow Rate FiO2 05/23/18 09:29 63 35 60 05/23/18 09:00 75 30 125/25 (58) 100 05/23/18 08:30 70 35 118/20 (52) 100 05/23/18 08:00 98.3 72 30 128/22 (57) 100 05/23/18 08:00 Mechanical Ventilator Mechanical Ventilator 05/23/18 08:00 60 05/23/18 07:30 70 35 135/30 (65) 100 05/23/18 07:20 75 37 60 05/23/18 07:00 69 35 152/26 (68) 100 05/23/18 06:10 99/21 05/23/18 06:00 69 27 92/35 (54) 100 05/23/18 05:30 69 32 131/31 (64) 100 05/23/18 05:06 65 27 60 05/23/18 05:00 67 32 127/19 (55) 100 05/23/18 04:30 80 32 98/19 (45) 100 05/23/18 04:00 60 05/23/18 04:00 84 05/23/18 04:00 98.3 83 32 144/32 (69) 100 05/23/18 04:00 Mechanical Ventilator Mechanical Ventilator 05/23/18 03:30 84 32 104/20 (48) 100 05/23/18 03:26 96 35 60 05/23/18 03:00 88 34 144/46 (78) 100 05/23/18 02:30 84 38 124/69 (87) 100 05/23/18 02:00 93 38 157/96 (116) 100 05/23/18 01:30 92 38 155/86 (109) 100 05/23/18 01:13 96 36 60 05/23/18 01:00 91 38 162/76 (104) 100 05/23/18 00:30 82 36 122/71 (88) 100 05/23/18 00:00 Mechanical Ventilator Mechanical Ventilator 05/23/18 00:00 106 05/23/18 00:00 98.3 84 36 111/60 (77) 100 05/22/18 23:46 177/77 05/22/18 23:32 111 35 60 05/22/18 23:30 112 35 79/41 (54) 98 05/22/18 23:00 112 35 108/63 (78) 98 05/22/18 22:30 114 34 122/70 (87) 99 05/22/18 22:00 120 33 120/89 (99) 99 05/22/18 21:39 109 35 60 05/22/18 21:30 118 33 155/74 (101) 99 05/22/18 21:00 118 34 97/70 (79) 91 05/22/18 20:30 86 32 64/32 (43) 89 05/22/18 20:00 60 05/22/18 20:00 Mechanical Ventilator Mechanical Ventilator 05/22/18 20:00 115 33 73/41 (52) 97 05/22/18 20:00 111 05/22/18 19:38 126 36 60 05/22/18 19:30 98.0 112 30 80/46 (57) 100 05/22/18 19:00 77 30 114/76 (89) 100 05/22/18 18:30 70 28 110/60 (77) 100 05/22/18 18:00 65 30 90/55 (67) 100 05/22/18 17:30 70 25 92/55 (67) 100 05/22/18 17:28 Mechanical Ventilator 60 05/22/18 17:20 71 35 60 05/22/18 17:00 77 25 95/60 (72) 100 05/22/18 16:30 75 30 115/64 (81) 100 05/22/18 16:00 74 30 120/66 (84) 98 05/22/18 16:00 100 05/22/18 16:00 Mechanical Ventilator Mechanical Ventilator 05/22/18 15:30 98.7 75 28 118/68 (85) 100 05/22/18 15:20 69 35 60 05/22/18 15:00 72 30 122/66 (84) 100 05/22/18 14:30 70 34 127/63 (84) 100 05/22/18 14:00 71 34 139/56 (83) 100 05/22/18 13:30 73 31 123/61 (81) 100 05/22/18 13:05 72 33 100 05/22/18 13:00 72 31 147/69 (95) 100 05/22/18 12:00 98.0 89 26 127/65 (85) 100 05/22/18 12:00 Mechanical Ventilator Mechanical Ventilator 05/22/18 12:00 30 05/22/18 11:00 91 26 135/66 (89) 100 05/22/18 11:00 90 134/63 05/22/18 10:52 90 27 30 05/22/18 10:30 85 26 132/61 (84) 100 Intake and Output 05/22/18 05/23/18 19:00 07:00 Intake Total 862.575 ml 1267.83 ml Output Total 30 ml 26 ml Balance 832.575 ml 1241.83 ml IV Total 862.575 ml 1067.83 ml Hemodialysis 200 ml Output Urine Total 0 ml 1 ml Drainage Total 30 ml 25 ml # Bowel Movements 1 2 Laboratory Tests Test 05/22/18 13:10 05/22/18 17:10 05/22/18 21:35 05/23/18 05:48 Activated Partial Thromboplast Time > 150 SEC (23-33) *H 113 SEC (23-33) H 47 SEC (23-33) H Lactic Acid Level 4.20 mmol/L (0.4-2.0) H 6.10 mmol/L (0.66-2.22) H 4.70 mmol/L (0.4-2.0) H Sodium Level 127 MMOL/L (136-145) L Potassium Level 4.9 MMOL/L (3.5-5.1) Chloride Level 86 MMOL/L (98-107) L Carbon Dioxide Level 18 MMOL/L (21-32) L Anion Gap 23 mmol/L (5-15) H Blood Urea Nitrogen 102 mg/dL (7-18) H Creatinine 6.3 MG/DL (0.55-1.30) H Estimat Glomerular Filtration Rate mL/min (>60) Glucose Level 181 MG/DL (74-106) #H Uric Acid 8.4 MG/DL (2.6-7.2) H Calcium Level 7.1 MG/DL (8.5-10.1) L Phosphorus Level 10.6 MG/DL (2.5-4.9) H Magnesium Level 1.7 MG/DL (1.8-2.4) L Total Bilirubin 0.9 MG/DL (0.2-1.0) Gamma Glutamyl Transpeptidase 55 U/L (5-85) Aspartate Amino Transf (AST/SGOT) 144 U/L (15-37) H Alanine Aminotransferase (ALT/SGPT) 45 U/L (12-78) Alkaline Phosphatase 129 U/L (46-116) H Ammonia < 10 umol/L (11-32) L Troponin I 0.882 ng/mL (0.000-0.056) Pro-B-Type Natriuretic Peptide 34104 pg/mL (0-125) H Total Protein 4.6 G/DL (6.4-8.2) L Albumin 1.3 G/DL (3.4-5.0) L Globulin 3.3 g/dL Albumin/Globulin Ratio 0.4 (1.0-2.7) L Random Vancomycin Level 6.0 ug/mL Test 05/23/18 09:30 Lactic Acid Level Pending Objective HEENT: PERRL/EOMI, Orally intubated Cardiovascular: Sinus tachycardia Respiratory/Chest: Chest wall non-tender, lungs clear, normal breath sounds, no respiratory distress Abdomen: Post op.with one VELVET drain and incision is leaking yellowish discharge Extremities: No edema Right groin dialysis catheter Everett Stephenson MD May 23, 2018 10:03
--- NOTE | 2018-05-23 10:52 | Infectious Diseases Prog Note ---
Assessment/Plan Assessment/Plan A: 1. serratia , Enterobacter sepsis with shock 2. VRE colonization 3. diabetes mellitus 4. hypertension 5. 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 leucocytosis 6. A fib with RVR 7. Small bowel perforation 8. Perioperative respiratory failure 9. Atelectasis versus Pneumonia 10 Peritonitis with Citrobacter & Serratia 11. sepsis, septic shock 12. Lactic acidosis P 1. continue Zosyn and Micafungin & IV Vancomycin 2. Consider TPN Subjective ROS Limited/Unobtainable: Yes Cardiovascular: Reports: other - on maximal dose of pressors Gastrointestinal/Abdominal: Reports: other - passing clear watery stools Allergies: Coded Allergies: No Known Allergies (Unverified , 11/12/12) Objective Vital Signs Last 24 Hour Vital Signs Date Time Temp Pulse Resp B/P (MAP) Pulse Ox O2 Delivery O2 Flow Rate FiO2 05/23/18 10:40 66 33 60 05/23/18 10:36 100 05/23/18 10:00 74 30 110/28 (55) 100 05/23/18 09:30 77 28 118/25 (56) 100 05/23/18 09:29 63 35 60 05/23/18 09:00 75 30 125/25 (58) 100 05/23/18 08:30 70 35 118/20 (52) 100 05/23/18 08:00 98.3 72 30 128/22 (57) 100 05/23/18 08:00 Mechanical Ventilator Mechanical Ventilator 05/23/18 08:00 60 05/23/18 07:30 70 35 135/30 (65) 100 05/23/18 07:20 75 37 60 05/23/18 07:00 69 35 152/26 (68) 100 05/23/18 06:10 99/21 05/23/18 06:00 69 27 92/35 (54) 100 05/23/18 05:30 69 32 131/31 (64) 100 05/23/18 05:06 65 27 60 05/23/18 05:00 67 32 127/19 (55) 100 05/23/18 04:30 80 32 98/19 (45) 100 05/23/18 04:00 60 05/23/18 04:00 84 05/23/18 04:00 98.3 83 32 144/32 (69) 100 05/23/18 04:00 Mechanical Ventilator Mechanical Ventilator 05/23/18 03:30 84 32 104/20 (48) 100 05/23/18 03:26 96 35 60 05/23/18 03:00 88 34 144/46 (78) 100 05/23/18 02:30 84 38 124/69 (87) 100 05/23/18 02:00 93 38 157/96 (116) 100 05/23/18 01:30 92 38 155/86 (109) 100 05/23/18 01:13 96 36 60 05/23/18 01:00 91 38 162/76 (104) 100 05/23/18 00:30 82 36 122/71 (88) 100 05/23/18 00:00 Mechanical Ventilator Mechanical Ventilator 05/23/18 00:00 106 05/23/18 00:00 98.3 84 36 111/60 (77) 100 05/22/18 23:46 177/77 05/22/18 23:32 111 35 60 05/22/18 23:30 112 35 79/41 (54) 98 05/22/18 23:00 112 35 108/63 (78) 98 05/22/18 22:30 114 34 122/70 (87) 99 05/22/18 22:00 120 33 120/89 (99) 99 05/22/18 21:39 109 35 60 05/22/18 21:30 118 33 155/74 (101) 99 05/22/18 21:00 118 34 97/70 (79) 91 05/22/18 20:30 86 32 64/32 (43) 89 05/22/18 20:00 60 05/22/18 20:00 Mechanical Ventilator Mechanical Ventilator 05/22/18 20:00 115 33 73/41 (52) 97 05/22/18 20:00 111 05/22/18 19:38 126 36 60 05/22/18 19:30 98.0 112 30 80/46 (57) 100 05/22/18 19:00 77 30 114/76 (89) 100 05/22/18 18:30 70 28 110/60 (77) 100 05/22/18 18:00 65 30 90/55 (67) 100 05/22/18 17:30 70 25 92/55 (67) 100 05/22/18 17:28 Mechanical Ventilator 60 05/22/18 17:20 71 35 60 05/22/18 17:00 77 25 95/60 (72) 100 05/22/18 16:30 75 30 115/64 (81) 100 05/22/18 16:00 74 30 120/66 (84) 98 05/22/18 16:00 100 05/22/18 16:00 Mechanical Ventilator Mechanical Ventilator 05/22/18 15:30 98.7 75 28 118/68 (85) 100 05/22/18 15:20 69 35 60 05/22/18 15:00 72 30 122/66 (84) 100 05/22/18 14:30 70 34 127/63 (84) 100 05/22/18 14:00 71 34 139/56 (83) 100 05/22/18 13:30 73 31 123/61 (81) 100 05/22/18 13:05 72 33 100 05/22/18 13:00 72 31 147/69 (95) 100 05/22/18 12:00 98.0 89 26 127/65 (85) 100 05/22/18 12:00 Mechanical Ventilator Mechanical Ventilator 05/22/18 12:00 30 05/22/18 11:00 91 26 135/66 (89) 100 05/22/18 11:00 90 134/63 05/22/18 10:52 90 27 30 Height (Feet): 5 Height (Inches): 4.00 Weight (Pounds): 184 HEENT: other - orally intubated Respiratory/Chest: respiratory distress, other - on ventilator Cardiovascular: normal rate Abdomen: other - small discharge from midline janell Extremities: other - edema Skin: ulcers, other - developing sacral pressure ulcer Neurologic/Psychiatric: unresponsiveness Laboratory Tests Test 05/22/18 13:10 05/22/18 17:10 05/22/18 21:35 05/23/18 05:48 Activated Partial Thromboplast Time > 150 SEC (23-33) *H 113 SEC (23-33) H 47 SEC (23-33) H Lactic Acid Level 4.20 mmol/L (0.4-2.0) H 6.10 mmol/L (0.66-2.22) H 4.70 mmol/L (0.4-2.0) H Sodium Level 127 MMOL/L (136-145) L Potassium Level 4.9 MMOL/L (3.5-5.1) Chloride Level 86 MMOL/L (98-107) L Carbon Dioxide Level 18 MMOL/L (21-32) L Anion Gap 23 mmol/L (5-15) H Blood Urea Nitrogen 102 mg/dL (7-18) H Creatinine 6.3 MG/DL (0.55-1.30) H Estimat Glomerular Filtration Rate mL/min (>60) Glucose Level 181 MG/DL (74-106) #H Uric Acid 8.4 MG/DL (2.6-7.2) H Calcium Level 7.1 MG/DL (8.5-10.1) L Phosphorus Level 10.6 MG/DL (2.5-4.9) H Magnesium Level 1.7 MG/DL (1.8-2.4) L Total Bilirubin 0.9 MG/DL (0.2-1.0) Gamma Glutamyl Transpeptidase 55 U/L (5-85) Aspartate Amino Transf (AST/SGOT) 144 U/L (15-37) H Alanine Aminotransferase (ALT/SGPT) 45 U/L (12-78) Alkaline Phosphatase 129 U/L (46-116) H Ammonia < 10 umol/L (11-32) L Troponin I 0.882 ng/mL (0.000-0.056) Pro-B-Type Natriuretic Peptide 82607 pg/mL (0-125) H Total Protein 4.6 G/DL (6.4-8.2) L Albumin 1.3 G/DL (3.4-5.0) L Globulin 3.3 g/dL Albumin/Globulin Ratio 0.4 (1.0-2.7) L Random Vancomycin Level 6.0 ug/mL Test 05/23/18 09:30 Lactic Acid Level 4.30 mmol/L (0.66-2.22) H Current Medications Medications (Trade) Dose Ordered Sig/Min Route PRN Reason Start Time Stop Time Status Last Admin Dose Admin Acetaminophen (Tylenol) 650 mg Q4H PRN ORAL Mild Pain/Temp > 100.5 05/12/18 15:30 06/09/18 15:29 05/20/18 20:53 Acetaminophen (Tylenol) 650 mg Q4H PRN RECTAL Mild Pain/Temp > 100.5 05/21/18 12:00 06/20/18 11:59 Amiodarone HCl 900 mg/Dextrose 500 ml @ 0 mls/hr Q24H IV 05/22/18 15:45 05/23/18 15:44 05/22/18 15:45 Chlorhexidine Gluconate (Tatyana-Hex 2%) 1 applic DAILY@2000 TOPIC 05/12/18 20:00 06/11/18 19:59 05/22/18 20:05 Dextrose (Dextrose 50%) 25 ml Q30M PRN IV Hypoglycemia 05/16/18 17:30 06/15/18 17:29 Dextrose (Dextrose 50%) 50 ml Q30M PRN IV Hypoglycemia 05/16/18 17:30 06/15/18 17:29 Heparin Sodium/ Dextrose 500 ml @ 20.16 mls/ hr ADJUST PER PROTOCOL IV 05/23/18 07:30 06/22/18 07:29 05/23/18 07:48 Hydrocortisone (Solu-CORTEF) 100 mg EVERY 8 HOURS IV 05/21/18 22:00 06/20/18 21:59 05/23/18 06:17 Hydromorphone HCl (Dilaudid) 1 mg Q2H PRN IVP Severe Pain (Pain Scale 7-10) 05/20/18 09:45 05/25/18 09:44 05/23/18 02:46 Insulin Aspart (NovoLOG) BEFORE MEALS AND HS SUBQ 05/16/18 21:00 06/15/18 20:59 05/23/18 06:10 Lorazepam (Ativan 2mg/ml 1ml) 1 mg Q6H PRN IV For Anxiety 05/19/18 08:15 05/26/18 08:14 05/21/18 12:53 Micafungin Sodium 100 mg/Sodium Chloride 110 ml @ 110 mls/hr Q24H IVPB 05/21/18 12:00 05/28/18 11:59 05/22/18 12:29 Midodrine (Pro-Amatine) 2.5 mg THREE TIMES A DAY PRN ORAL for bp below 100 syst 05/19/18 10:15 06/14/18 12:59 Norepinephrine Bitartrate 8 mg/ Dextrose 500 ml @ 0 mls/hr Q24H IV 05/21/18 14:30 06/20/18 14:29 05/23/18 06:10 Ondansetron HCl (Zofran) 4 mg Q6H PRN IVP Nausea & Vomiting 05/15/18 23:30 06/14/18 23:29 Pantoprazole (Protonix) 40 mg EVERY 12 HOURS IVP 05/12/18 21:00 06/10/18 20:59 05/23/18 09:02 Phenylephrine HCl 50 mg/Dextrose 250 ml @ 0 mls/hr Q24H IV 05/21/18 11:00 06/20/18 10:59 05/21/18 12:45 Piperacillin Sod/ Tazobactam Sod 2.25 gm/Dextrose 55 ml @ 110 mls/hr Q8HR IVPB 05/19/18 12:00 05/28/18 11:59 05/23/18 06:09 Vancomycin HCl (Vanco rx to dose) 1 ea DAILY PRN MISC Per rx protocol 05/22/18 11:45 06/21/18 11:44 Vasopressin 100 units/Sodium Chloride 100 ml @ 0 mls/hr Q24H IV 05/22/18 11:30 06/21/18 11:29 05/22/18 11:31 Romie Hooks MD May 23, 2018 10:52
[2018-05-23] MEDS: Phenylephrine 50 MG in D5W 245 ML IV SCH (11:00)
--- NOTE | 2018-05-23 11:01 | NUR ---
CASE MANAGEMENT: REVIEW SI: ESRD ON HD . ACS . A-FIB RIGHT FEMORAL TEMPORARY HEMODIALYSIS CATHETER INSERTION 05/13 T 98.3 HR 70 RR 37 BP 99/21 SAT 100% MECH VENT FIO2 60 LACTIC ACID 4.30 APTT 47 IS: HEPARIN IV GTT AMIODARONE IV Q24HR VASOPRESSIN IV Q24HR SOLU CORTEF IV Q8HR LEVOPHED IV Q24HR MICAFUNGIN IV Q24HR HD PRN ICU STATUS DCP: PATIENT IS FROM HOME
--- NOTE | 2018-05-23 11:07 | Nephrology Progress Note ---
Assessment/Plan Problem List: (1) ESRD (end stage renal disease) on dialysis (2) Perforated bowel (3) Hyponatremia (4) Major depression (5) Nausea & vomiting (6) H/O abdominal surgery Assessment: recent (7) Shock Assessment patient on 2 pressors recent abdominal surgery hemodynamically stablized over night Presents with CHF and Low Na ESRD ACS DM HTN h/o GI bleed Depression Plan doing poorly short dialysis 1/2 BP dropped On 2 pressors on steroids on Midodrine weaning as possible insulin for high BS hold dig , check levels, resume as needed no NGT ,On Vent Psych started Zoloft PO ? Will DC ZOLOFT. Has abd surgery 05/15 Perforated bowel graft clotted , has a femoral felice right HOLD ALL MIND ALTERING MEDS - DC all po meds FLUID CHALLENGE pressors as needed BP HR Pain control discussed with RN and Dr Jones IV protonix Subjective ROS Limited/Unobtainable: Yes Objective Objective Last 24 Hour Vital Signs Date Time Temp Pulse Resp B/P (MAP) Pulse Ox O2 Delivery O2 Flow Rate FiO2 05/23/18 10:40 66 33 60 05/23/18 10:36 100 05/23/18 10:00 74 30 110/28 (55) 100 05/23/18 09:30 77 28 118/25 (56) 100 05/23/18 09:29 63 35 60 05/23/18 09:00 75 30 125/25 (58) 100 05/23/18 08:30 70 35 118/20 (52) 100 05/23/18 08:00 98.3 72 30 128/22 (57) 100 05/23/18 08:00 Mechanical Ventilator Mechanical Ventilator 05/23/18 08:00 60 05/23/18 07:30 70 35 135/30 (65) 100 05/23/18 07:20 75 37 60 05/23/18 07:00 69 35 152/26 (68) 100 05/23/18 06:10 99/21 05/23/18 06:00 69 27 92/35 (54) 100 05/23/18 05:30 69 32 131/31 (64) 100 05/23/18 05:06 65 27 60 05/23/18 05:00 67 32 127/19 (55) 100 05/23/18 04:30 80 32 98/19 (45) 100 05/23/18 04:00 60 05/23/18 04:00 84 05/23/18 04:00 98.3 83 32 144/32 (69) 100 05/23/18 04:00 Mechanical Ventilator Mechanical Ventilator 05/23/18 03:30 84 32 104/20 (48) 100 05/23/18 03:26 96 35 60 05/23/18 03:00 88 34 144/46 (78) 100 05/23/18 02:30 84 38 124/69 (87) 100 05/23/18 02:00 93 38 157/96 (116) 100 05/23/18 01:30 92 38 155/86 (109) 100 05/23/18 01:13 96 36 60 05/23/18 01:00 91 38 162/76 (104) 100 05/23/18 00:30 82 36 122/71 (88) 100 05/23/18 00:00 Mechanical Ventilator Mechanical Ventilator 05/23/18 00:00 106 05/23/18 00:00 98.3 84 36 111/60 (77) 100 05/22/18 23:46 177/77 05/22/18 23:32 111 35 60 05/22/18 23:30 112 35 79/41 (54) 98 05/22/18 23:00 112 35 108/63 (78) 98 05/22/18 22:30 114 34 122/70 (87) 99 05/22/18 22:00 120 33 120/89 (99) 99 05/22/18 21:39 109 35 60 05/22/18 21:30 118 33 155/74 (101) 99 05/22/18 21:00 118 34 97/70 (79) 91 05/22/18 20:30 86 32 64/32 (43) 89 05/22/18 20:00 60 05/22/18 20:00 Mechanical Ventilator Mechanical Ventilator 05/22/18 20:00 115 33 73/41 (52) 97 05/22/18 20:00 111 05/22/18 19:38 126 36 60 05/22/18 19:30 98.0 112 30 80/46 (57) 100 05/22/18 19:00 77 30 114/76 (89) 100 05/22/18 18:30 70 28 110/60 (77) 100 05/22/18 18:00 65 30 90/55 (67) 100 05/22/18 17:30 70 25 92/55 (67) 100 05/22/18 17:28 Mechanical Ventilator 60 05/22/18 17:20 71 35 60 05/22/18 17:00 77 25 95/60 (72) 100 05/22/18 16:30 75 30 115/64 (81) 100 05/22/18 16:00 74 30 120/66 (84) 98 05/22/18 16:00 100 05/22/18 16:00 Mechanical Ventilator Mechanical Ventilator 05/22/18 15:30 98.7 75 28 118/68 (85) 100 05/22/18 15:20 69 35 60 05/22/18 15:00 72 30 122/66 (84) 100 05/22/18 14:30 70 34 127/63 (84) 100 05/22/18 14:00 71 34 139/56 (83) 100 05/22/18 13:30 73 31 123/61 (81) 100 05/22/18 13:05 72 33 100 05/22/18 13:00 72 31 147/69 (95) 100 05/22/18 12:00 98.0 89 26 127/65 (85) 100 05/22/18 12:00 Mechanical Ventilator Mechanical Ventilator 05/22/18 12:00 30 Intake and Output 05/22/18 05/23/18 19:00 07:00 Intake Total 862.575 ml 1267.83 ml Output Total 30 ml 26 ml Balance 832.575 ml 1241.83 ml IV Total 862.575 ml 1067.83 ml Hemodialysis 200 ml Output Urine Total 0 ml 1 ml Drainage Total 30 ml 25 ml # Bowel Movements 1 2 Laboratory Tests 05/22/18 13:10: Activated Partial Thromboplast Time > 150*H 05/22/18 17:10: Lactic Acid Level 4.20H 05/22/18 21:35: Activated Partial Thromboplast Time 113H, Lactic Acid Level 6.10H 05/23/18 05:48: Activated Partial Thromboplast Time 47H, Lactic Acid Level 4.70H, Sodium Level 127L, Potassium Level 4.9, Chloride Level 86L, Carbon Dioxide Level 18L, Anion Gap 23H, Blood Urea Nitrogen 102H, Creatinine 6.3H, Estimat Glomerular Filtration Rate , Glucose Level 181#H, Uric Acid 8.4H, Calcium Level 7.1L, Phosphorus Level 10.6H, Magnesium Level 1.7L, Total Bilirubin 0.9, Gamma Glutamyl Transpeptidase 55, Aspartate Amino Transf (AST/SGOT) 144H, Alanine Aminotransferase (ALT/SGPT) 45, Alkaline Phosphatase 129H, Ammonia < 10L, Troponin I 0.882H, Pro-B-Type Natriuretic Peptide 97530J, Total Protein 4.6L, Albumin 1.3L, Globulin 3.3, Albumin/Globulin Ratio 0.4L, Random Vancomycin Level 6.0 05/23/18 09:30: Lactic Acid Level 4.30H Height (Feet): 5 Height (Inches): 4.00 Weight (Pounds): 184 General Appearance: no apparent distress Cardiovascular: normal rate Respiratory/Chest: decreased breath sounds Abdomen: distended Neurologic: unresponsive Objective no change Maurilio Arroyo MD May 23, 2018 11:07
[2018-05-23] MEDS: Vasopressin 100 UNITS in NS 95 ML IV SCH ×2 (11:58→17:47)
--- NOTE | 2018-05-23 12:15 | General Progress Note ---
Assessment/Plan Assessment/Plan GI CONSULT Discussed with surgery and renal Assessment - septic shock - bilious wound leak - r/o anastomotic failure - hypotension, unable to be dialyzed effectively - perforated bowel - resp failure - renal failure - Grim prognosis Recommendation - Unable to give TPN safely at this time as pt not able to tolerate HD - Patient going to OR today for evacuation and possible ostomy - will re- assess tomorrow - needs another central line - will be placed today in OR if possible Thank you P MD Cristobal Subjective Allergies: Coded Allergies: No Known Allergies (Unverified , 11/12/12) Objective Last 24 Hour Vital Signs Date Time Temp Pulse Resp B/P (MAP) Pulse Ox O2 Delivery O2 Flow Rate FiO2 05/23/18 11:00 72 30 122/30 (60) 99 05/23/18 11:00 77 125/30 05/23/18 10:40 66 33 60 05/23/18 10:36 100 05/23/18 10:30 75 30 125/30 (61) 100 05/23/18 10:00 74 30 110/28 (55) 100 05/23/18 09:30 77 28 118/25 (56) 100 05/23/18 09:29 63 35 60 05/23/18 09:00 75 30 125/25 (58) 100 05/23/18 08:30 70 35 118/20 (52) 100 05/23/18 08:00 98.3 72 30 128/22 (57) 100 05/23/18 08:00 Mechanical Ventilator Mechanical Ventilator 05/23/18 08:00 60 05/23/18 07:30 70 35 135/30 (65) 100 05/23/18 07:20 75 37 60 05/23/18 07:00 69 35 152/26 (68) 100 05/23/18 06:10 99/21 05/23/18 06:00 69 27 92/35 (54) 100 05/23/18 05:30 69 32 131/31 (64) 100 05/23/18 05:06 65 27 60 05/23/18 05:00 67 32 127/19 (55) 100 05/23/18 04:30 80 32 98/19 (45) 100 05/23/18 04:00 60 05/23/18 04:00 84 05/23/18 04:00 98.3 83 32 144/32 (69) 100 05/23/18 04:00 Mechanical Ventilator Mechanical Ventilator 05/23/18 03:30 84 32 104/20 (48) 100 05/23/18 03:26 96 35 60 05/23/18 03:00 88 34 144/46 (78) 100 05/23/18 02:30 84 38 124/69 (87) 100 05/23/18 02:00 93 38 157/96 (116) 100 05/23/18 01:30 92 38 155/86 (109) 100 05/23/18 01:13 96 36 60 05/23/18 01:00 91 38 162/76 (104) 100 05/23/18 00:30 82 36 122/71 (88) 100 05/23/18 00:00 Mechanical Ventilator Mechanical Ventilator 05/23/18 00:00 106 05/23/18 00:00 98.3 84 36 111/60 (77) 100 05/22/18 23:46 177/77 05/22/18 23:32 111 35 60 05/22/18 23:30 112 35 79/41 (54) 98 05/22/18 23:00 112 35 108/63 (78) 98 05/22/18 22:30 114 34 122/70 (87) 99 05/22/18 22:00 120 33 120/89 (99) 99 05/22/18 21:39 109 35 60 05/22/18 21:30 118 33 155/74 (101) 99 05/22/18 21:00 118 34 97/70 (79) 91 05/22/18 20:30 86 32 64/32 (43) 89 05/22/18 20:00 60 05/22/18 20:00 Mechanical Ventilator Mechanical Ventilator 05/22/18 20:00 115 33 73/41 (52) 97 05/22/18 20:00 111 05/22/18 19:38 126 36 60 05/22/18 19:30 98.0 112 30 80/46 (57) 100 05/22/18 19:00 77 30 114/76 (89) 100 05/22/18 18:30 70 28 110/60 (77) 100 05/22/18 18:00 65 30 90/55 (67) 100 05/22/18 17:30 70 25 92/55 (67) 100 05/22/18 17:28 Mechanical Ventilator 60 05/22/18 17:20 71 35 60 05/22/18 17:00 77 25 95/60 (72) 100 05/22/18 16:30 75 30 115/64 (81) 100 05/22/18 16:00 74 30 120/66 (84) 98 05/22/18 16:00 100 05/22/18 16:00 Mechanical Ventilator Mechanical Ventilator 05/22/18 15:30 98.7 75 28 118/68 (85) 100 05/22/18 15:20 69 35 60 05/22/18 15:00 72 30 122/66 (84) 100 05/22/18 14:30 70 34 127/63 (84) 100 05/22/18 14:00 71 34 139/56 (83) 100 05/22/18 13:30 73 31 123/61 (81) 100 05/22/18 13:05 72 33 100 05/22/18 13:00 72 31 147/69 (95) 100 Intake and Output 05/22/18 05/23/18 19:00 07:00 Intake Total 862.575 ml 1267.83 ml Output Total 30 ml 26 ml Balance 832.575 ml 1241.83 ml IV Total 862.575 ml 1067.83 ml Hemodialysis 200 ml Output Urine Total 0 ml 1 ml Drainage Total 30 ml 25 ml # Bowel Movements 1 2 Laboratory Tests 05/22/18 13:10: Activated Partial Thromboplast Time > 150*H 05/22/18 17:10: Lactic Acid Level 4.20H 05/22/18 21:35: Activated Partial Thromboplast Time 113H, Lactic Acid Level 6.10H 05/23/18 05:48: Activated Partial Thromboplast Time 47H, Lactic Acid Level 4.70H, Sodium Level 127L, Potassium Level 4.9, Chloride Level 86L, Carbon Dioxide Level 18L, Anion Gap 23H, Blood Urea Nitrogen 102H, Creatinine 6.3H, Estimat Glomerular Filtration Rate , Glucose Level 181#H, Uric Acid 8.4H, Calcium Level 7.1L, Phosphorus Level 10.6H, Magnesium Level 1.7L, Total Bilirubin 0.9, Gamma Glutamyl Transpeptidase 55, Aspartate Amino Transf (AST/SGOT) 144H, Alanine Aminotransferase (ALT/SGPT) 45, Alkaline Phosphatase 129H, Ammonia < 10L, Troponin I 0.882H, Pro-B-Type Natriuretic Peptide 26675S, Total Protein 4.6L, Albumin 1.3L, Globulin 3.3, Albumin/Globulin Ratio 0.4L, Random Vancomycin Level 6.0 05/23/18 09:30: Lactic Acid Level 4.30H Height (Feet): 5 Height (Inches): 4.00 Weight (Pounds): 184 Lisa Jain MD May 23, 2018 12:15
--- NOTE | 2018-05-23 12:27 | General Progress Note ---
Progress Note Progress Note Surgery still on pressors but stabilizing now. not worsening. drain serous but midline wound with some bilious drainage. wound opened at bedside and over 1> of bile spillage. possible biliary leak possible anastomosis leak needs to go to OR [facility] OR called an prepping now plan for ex lap, wash out, possible ostomy, possible open abdomen Tomas Chandler May 23, 2018 12:27
--- NOTE | 2018-05-23 12:29 | Pre-Procedure Note/Attestation ---
Pre-Procedure Note/Attestation Complete Prior to Procedure Procedure Narrative: ex lap, wash out, possible ostomy, possible open abdomen Indications for Procedure Pre-Operative Diagnosis: recent lap matthew, abdominal pain, sepsis, pneumoperitoneum, biliary leak vs bowel leak Attestation I attest that I discussed the nature of the procedure; its benefits; risks and complications; and alternatives (and the risks and benefits of such alternatives ), prior to the procedure, with the patient (or the patient's legal outside energy sales representatives). I attest that, if there was a reasonable possibility of needing a blood transfusion, the patient (or the patient's legal outside energy sales representatives) was given the [place] [facility] [employer] [facility] standardized written summary, pursuant to the Kj Pancho Blood Safety Act ([place] Health and Safety Code # 1645, as amended). I attest that I re-evaluated the patient just prior to the surgery and that there has been no change in the patient's H&P, except as documented below: patient without next of kin or poa. unable to consent at this time without surgery will not make it. full code as per his choice prior will proceed to OR emergently Tomas Chandler May 23, 2018 12:29
--- NOTE | 2018-05-23 12:43 | General Progress Note ---
Assessment/Plan Assessment/Plan # Anemia of chronic disease due to underlying chronic medical issues, multifactorial --> Anemia w/u has been reviewed, reordered and ferritin is >2000 --> Monitor for stability --> trend 10.3-->7.6-->8.9-->10.3-->9.5 --> not bleeding currently # Small bowel perforation, s/p bowel resection, with Gram negative sepsis is on abx In ICU s/p Small bowel resection --> on broad spectrum abx --> on vanc/cefepime as per id--> now changed to zosyn, flagyl, micafungin --> s/p sb resection on 05/15, appreciate surg recs --> on 2 pressors as well,++ vent --> to OR on 05/23, surgeon to access # Hypofibrinoginemia -- potentially cosumptive process given sepsis --> Discussed with RN, Sofie, patient requires 10 units coprecipitate on 05/23, requires emergency transfusion, unable to obtain consent, no family available, thus 2 MD consent obtained # Lower extremity edema with an elevated BNP in a patient with renal failure on hemodialysis. --> on HD per Dr. Arroyo. --> currently has improved # Atrial fib w rvr/flutter, being seen by cards, has converted to sr --> Cardiology is following, appreciate recs, echo was reviewed --> Currently denies any chest pain, completely rule out ACS --> EKG showed old inferior and anterior wall TX, but no ischemia. 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 --> Nephro is following, appreciate recs. HD appeox 3x a week --> On intermittent HD # Respiratory failure on a vent, intubated The time of note does not necessarily reflect the time of encounter Greatly appreciate consultation! Subjective ROS Limited/Unobtainable: Yes Allergies: Coded Allergies: No Known Allergies (Unverified , 11/12/12) Subjective 05/12: Pt resting in bed. No acute events. H/H stable. On abx. VS stable. 12/24: on pressors, on hep gtt, on steriods, abx, got hd, felice catheter in place : CT-A was negative, hep gtt as per cards, abg reviewed, moaning on exam, on ceftriaxone 05/15 :Pt remains in ICU. Currently undergoing HD. Pt on 2 cardiac drips for elevated Bp. WBC remains elevated. H/H stable. 05/16: s/p sb resection, In ICU s/p Small bowel resection on Amiodarone and Levophed drip. HR around 100. 05/17: Orally intubated on Ac 16, Vt 500, P 5 fio2 30%. Pt continues NPO at this time. Right upper arm and right FA IV sites patent and intact at this time. Amio gtt running 05/18: Pt remains in ICU. Pt for STAT HD. WBC remains elevated, afebrile. 05/19: getting hd periodically, no other events, vent to be weaned, labs reviewed, on dilaudid, ativan and fentanyl per pulm 05/21: prognosis is more guarded, no events to report, no f/c, but on two pressors now, on hep gtt for antonio thrombosis, hd as well 3x/week 05/22: on 2 pressors, seen by cards, renal, ryan drain draining improved, still on vent, converted to sr, on amio gtt, lactic acid downtrending, minimally responsive, on heparin gtt as well for antonio thrombus 05/23: patient to go to OR ginette potential washout, ostomy, and line placement, fibrinogen low, needs cryoprecipirate, will also check inr/pt, cbc reviewed, electrolytes noted Objective Last 24 Hour Vital Signs Date Time Temp Pulse Resp B/P (MAP) Pulse Ox O2 Delivery O2 Flow Rate FiO2 05/23/18 12:00 Mechanical Ventilator Mechanical Ventilator 05/23/18 12:00 98.8 74 30 113/28 (56) 99 05/23/18 12:00 60 05/23/18 11:30 70 30 110/25 (53) 99 05/23/18 11:00 72 30 122/30 (60) 99 05/23/18 11:00 77 125/30 05/23/18 10:40 66 33 60 05/23/18 10:36 100 05/23/18 10:30 75 30 125/30 (61) 100 05/23/18 10:00 74 30 110/28 (55) 100 05/23/18 09:30 77 28 118/25 (56) 100 05/23/18 09:29 63 35 60 05/23/18 09:00 75 30 125/25 (58) 100 05/23/18 08:30 70 35 118/20 (52) 100 05/23/18 08:00 98.3 72 30 128/22 (57) 100 05/23/18 08:00 Mechanical Ventilator Mechanical Ventilator 05/23/18 08:00 60 05/23/18 07:30 70 35 135/30 (65) 100 05/23/18 07:20 75 37 60 05/23/18 07:00 69 35 152/26 (68) 100 05/23/18 06:10 99/21 05/23/18 06:00 69 27 92/35 (54) 100 05/23/18 05:30 69 32 131/31 (64) 100 05/23/18 05:06 65 27 60 05/23/18 05:00 67 32 127/19 (55) 100 05/23/18 04:30 80 32 98/19 (45) 100 05/23/18 04:00 60 05/23/18 04:00 84 05/23/18 04:00 98.3 83 32 144/32 (69) 100 05/23/18 04:00 Mechanical Ventilator Mechanical Ventilator 05/23/18 03:30 84 32 104/20 (48) 100 05/23/18 03:26 96 35 60 05/23/18 03:00 88 34 144/46 (78) 100 05/23/18 02:30 84 38 124/69 (87) 100 05/23/18 02:00 93 38 157/96 (116) 100 05/23/18 01:30 92 38 155/86 (109) 100 05/23/18 01:13 96 36 60 05/23/18 01:00 91 38 162/76 (104) 100 05/23/18 00:30 82 36 122/71 (88) 100 05/23/18 00:00 Mechanical Ventilator Mechanical Ventilator 05/23/18 00:00 106 05/23/18 00:00 98.3 84 36 111/60 (77) 100 05/22/18 23:46 177/77 05/22/18 23:32 111 35 60 05/22/18 23:30 112 35 79/41 (54) 98 05/22/18 23:00 112 35 108/63 (78) 98 05/22/18 22:30 114 34 122/70 (87) 99 05/22/18 22:00 120 33 120/89 (99) 99 05/22/18 21:39 109 35 60 05/22/18 21:30 118 33 155/74 (101) 99 05/22/18 21:00 118 34 97/70 (79) 91 05/22/18 20:30 86 32 64/32 (43) 89 05/22/18 20:00 60 05/22/18 20:00 Mechanical Ventilator Mechanical Ventilator 05/22/18 20:00 115 33 73/41 (52) 97 05/22/18 20:00 111 05/22/18 19:38 126 36 60 05/22/18 19:30 98.0 112 30 80/46 (57) 100 05/22/18 19:00 77 30 114/76 (89) 100 05/22/18 18:30 70 28 110/60 (77) 100 05/22/18 18:00 65 30 90/55 (67) 100 05/22/18 17:30 70 25 92/55 (67) 100 05/22/18 17:28 Mechanical Ventilator 60 05/22/18 17:20 71 35 60 05/22/18 17:00 77 25 95/60 (72) 100 05/22/18 16:30 75 30 115/64 (81) 100 05/22/18 16:00 74 30 120/66 (84) 98 05/22/18 16:00 100 05/22/18 16:00 Mechanical Ventilator Mechanical Ventilator 05/22/18 15:30 98.7 75 28 118/68 (85) 100 05/22/18 15:20 69 35 60 05/22/18 15:00 72 30 122/66 (84) 100 05/22/18 14:30 70 34 127/63 (84) 100 05/22/18 14:00 71 34 139/56 (83) 100 05/22/18 13:30 73 31 123/61 (81) 100 05/22/18 13:05 72 33 100 05/22/18 13:00 72 31 147/69 (95) 100 Intake and Output 05/22/18 05/23/18 19:00 07:00 Intake Total 862.575 ml 1267.83 ml Output Total 30 ml 26 ml Balance 832.575 ml 1241.83 ml IV Total 862.575 ml 1067.83 ml Hemodialysis 200 ml Output Urine Total 0 ml 1 ml Drainage Total 30 ml 25 ml # Bowel Movements 1 2 Laboratory Tests 05/22/18 13:10: Activated Partial Thromboplast Time > 150*H 05/22/18 17:10: Lactic Acid Level 4.20H 05/22/18 21:35: Activated Partial Thromboplast Time 113H, Lactic Acid Level 6.10H 05/23/18 05:48: Activated Partial Thromboplast Time 47H, Lactic Acid Level 4.70H, Sodium Level 127L, Potassium Level 4.9, Chloride Level 86L, Carbon Dioxide Level 18L, Anion Gap 23H, Blood Urea Nitrogen 102H, Creatinine 6.3H, Estimat Glomerular Filtration Rate , Glucose Level 181#H, Uric Acid 8.4H, Calcium Level 7.1L, Phosphorus Level 10.6H, Magnesium Level 1.7L, Total Bilirubin 0.9, Gamma Glutamyl Transpeptidase 55, Aspartate Amino Transf (AST/SGOT) 144H, Alanine Aminotransferase (ALT/SGPT) 45, Alkaline Phosphatase 129H, Ammonia < 10L, Troponin I 0.882H, Pro-B-Type Natriuretic Peptide 22155T, Total Protein 4.6L, Albumin 1.3L, Globulin 3.3, Albumin/Globulin Ratio 0.4L, Random Vancomycin Level 6.0 05/23/18 09:30: Lactic Acid Level 4.30H Height (Feet): 5 Height (Inches): 4.00 Weight (Pounds): 184 Objective PHYSICAL EXAMINATION: VITAL SIGNS: Have been reviewed HEENT: PERRLA. NECK: Supple. No lymphadenopathy. CHEST: ++ intubated CARDIOVASCULAR: Tachycardic. GASTROINTESTINAL: Distended. Positive bowel sounds. Nontender. No organomegaly. ++ ryan drain in place EXTREMITY: 2+ edema. NEURO: responsive to simple command Reinaldo Leon MD May 23, 2018 12:43
[2018-05-23] MEDS: Micafungin 100 MG in NS 110 ML IVPB SCH (13:00)
--- NOTE | 2018-05-23 13:00 | NUR ---
NURSE NOTES: Patient taken down for surgery by Dr. Chandler. Endorsement given to OR nurse at pre-op. No new orders at this time. Will continue plan of care.
[2018-05-23] MEDS ORDERED: Zemuron 50mg/5ml Inj IV ONE (13:10)
[2018-05-23] MEDS ORDERED: LR 1000ml ONE (13:30)
[2018-05-23] MEDS ORDERED: NS Irrig 1000ml IRRIG ONE (13:45)
[2018-05-23] MEDS ORDERED: Sterile Water Irrig 1000ml IRRIG ONE ×2 (13:45)
--- NOTE | 2018-05-23 14:00 | NUR ---
NURSE NOTES: Patient off unit, in surgery
--- NOTE | 2018-05-23 14:03 | Pulmonolgy Critical Care Note ---
Critical Care - Asmt/Plan Problems: (1) Shock (2) Hypoxemia (3) Elevated d-dimer Assessment & Plan: S/P neg CT-A + UE DVT (4) Hypotension (5) Atrial fibrillation (6) ESRD (end stage renal disease) on dialysis (7) ACS (acute coronary syndrome) (8) Sacral decubitus ulcer, stage III (9) S/P cholecystectomy (10) Serratia sepsis (11) S/P exploratory laparotomy (12) Perforated viscus Assessment/Plan: -OCTOR for EX-LAP -Continue Vaso 0.04, titrate NE for MAP > 60 -Continue ventilatory support/settings reviewed -Titrate down FiO2 to keep SaO2 > 90%, continue PEEP 5 -HD per renal -Amio gtt per cards/EPS, off Dilt -[facility] held OCTOR -Monitor for bleeding -Arabella ad Zosyn per ID, F/U Cx's -Taper stress dose sterodis -FC D/W Dr. Chandler - D/W RN and RT CCT 45 Critical Care - Objective Last 24 Hour Vital Signs Date Time Temp Pulse Resp B/P (MAP) Pulse Ox O2 Delivery O2 Flow Rate FiO2 05/23/18 13:00 70 30 118/32 (60) 99 05/23/18 12:30 72 28 115/30 (58) 99 05/23/18 12:00 Mechanical Ventilator Mechanical Ventilator 05/23/18 12:00 98.8 74 30 113/28 (56) 99 05/23/18 12:00 60 05/23/18 11:30 70 30 110/25 (53) 99 05/23/18 11:00 72 30 122/30 (60) 99 05/23/18 11:00 77 125/30 05/23/18 10:40 66 33 60 05/23/18 10:36 100 05/23/18 10:30 75 30 125/30 (61) 100 05/23/18 10:00 74 30 110/28 (55) 100 05/23/18 09:30 77 28 118/25 (56) 100 05/23/18 09:29 63 35 60 05/23/18 09:00 75 30 125/25 (58) 100 05/23/18 08:30 70 35 118/20 (52) 100 05/23/18 08:00 98.3 72 30 128/22 (57) 100 05/23/18 08:00 Mechanical Ventilator Mechanical Ventilator 05/23/18 08:00 60 05/23/18 07:30 70 35 135/30 (65) 100 05/23/18 07:20 75 37 60 05/23/18 07:00 69 35 152/26 (68) 100 05/23/18 06:10 99/21 05/23/18 06:00 69 27 92/35 (54) 100 05/23/18 05:30 69 32 131/31 (64) 100 05/23/18 05:06 65 27 60 05/23/18 05:00 67 32 127/19 (55) 100 05/23/18 04:30 80 32 98/19 (45) 100 05/23/18 04:00 60 05/23/18 04:00 84 05/23/18 04:00 98.3 83 32 144/32 (69) 100 05/23/18 04:00 Mechanical Ventilator Mechanical Ventilator 05/23/18 03:30 84 32 104/20 (48) 100 05/23/18 03:26 96 35 60 05/23/18 03:00 88 34 144/46 (78) 100 05/23/18 02:30 84 38 124/69 (87) 100 05/23/18 02:00 93 38 157/96 (116) 100 05/23/18 01:30 92 38 155/86 (109) 100 05/23/18 01:13 96 36 60 05/23/18 01:00 91 38 162/76 (104) 100 05/23/18 00:30 82 36 122/71 (88) 100 05/23/18 00:00 Mechanical Ventilator Mechanical Ventilator 05/23/18 00:00 106 05/23/18 00:00 98.3 84 36 111/60 (77) 100 05/22/18 23:46 177/77 05/22/18 23:32 111 35 60 05/22/18 23:30 112 35 79/41 (54) 98 05/22/18 23:00 112 35 108/63 (78) 98 05/22/18 22:30 114 34 122/70 (87) 99 05/22/18 22:00 120 33 120/89 (99) 99 05/22/18 21:39 109 35 60 05/22/18 21:30 118 33 155/74 (101) 99 05/22/18 21:00 118 34 97/70 (79) 91 05/22/18 20:30 86 32 64/32 (43) 89 05/22/18 20:00 60 05/22/18 20:00 Mechanical Ventilator Mechanical Ventilator 05/22/18 20:00 115 33 73/41 (52) 97 05/22/18 20:00 111 05/22/18 19:38 126 36 60 05/22/18 19:30 98.0 112 30 80/46 (57) 100 05/22/18 19:00 77 30 114/76 (89) 100 05/22/18 18:30 70 28 110/60 (77) 100 05/22/18 18:00 65 30 90/55 (67) 100 05/22/18 17:30 70 25 92/55 (67) 100 05/22/18 17:28 Mechanical Ventilator 60 05/22/18 17:20 71 35 60 05/22/18 17:00 77 25 95/60 (72) 100 05/22/18 16:30 75 30 115/64 (81) 100 05/22/18 16:00 74 30 120/66 (84) 98 05/22/18 16:00 100 05/22/18 16:00 Mechanical Ventilator Mechanical Ventilator 05/22/18 15:30 98.7 75 28 118/68 (85) 100 05/22/18 15:20 69 35 60 05/22/18 15:00 72 30 122/66 (84) 100 05/22/18 14:30 70 34 127/63 (84) 100 Status: sedated, other - intubated Condition: critical HEENT: atraumatic, normocephalic, other - ETT OGT Lungs: rhonchi Heart: HR/BP unstable Abdomen: distended, other - wound dressed hypoactive BS Extremities: other - 1+ edema x 4 Accucheck: 116 Blood Sugars: BS controlled Critical Care - Subjective ROS Limited/Unobtainable: Yes ICU Day: 9 Intubation Day: 6 Interval Events: I&D by Dr. Chandler @ bedside > 1L bilious OP Going urgently to OR Condition: critical IV Access: peripheral EKG Rhythm: Sinus Tachycardia FI02: 60 Vent Support Breath Rate: 16 Vent Support Mode: AC Vent Tidal Volume: 500 Sputum Amount: None PEEP: 5.0 PIP: 24 Drips: NE14 Vaso 0.04 I&O: Intake and Output 05/22/18 05/23/18 19:00 07:00 Intake Total 862.575 ml 1267.83 ml Output Total 30 ml 26 ml Balance 832.575 ml 1241.83 ml IV Total 862.575 ml 1067.83 ml Hemodialysis 200 ml Output Urine Total 0 ml 1 ml Drainage Total 30 ml 25 ml # Bowel Movements 1 2 Subjective: CROW ET-Tube: 7.5 ET Position: 25 Labs: Laboratory Tests Test 05/22/18 17:10 05/22/18 21:35 05/23/18 05:48 05/23/18 09:30 Lactic Acid Level 4.20 mmol/L (0.4-2.0) H 6.10 mmol/L (0.66-2.22) H 4.70 mmol/L (0.4-2.0) H 4.30 mmol/L (0.66-2.22) H Activated Partial Thromboplast Time 113 SEC (23-33) H 47 SEC (23-33) H Sodium Level 127 MMOL/L (136-145) L Potassium Level 4.9 MMOL/L (3.5-5.1) Chloride Level 86 MMOL/L (98-107) L Carbon Dioxide Level 18 MMOL/L (21-32) L Anion Gap 23 mmol/L (5-15) H Blood Urea Nitrogen 102 mg/dL (7-18) H Creatinine 6.3 MG/DL (0.55-1.30) H Estimat Glomerular Filtration Rate mL/min (>60) Glucose Level 181 MG/DL (74-106) #H Uric Acid 8.4 MG/DL (2.6-7.2) H Calcium Level 7.1 MG/DL (8.5-10.1) L Phosphorus Level 10.6 MG/DL (2.5-4.9) H Magnesium Level 1.7 MG/DL (1.8-2.4) L Total Bilirubin 0.9 MG/DL (0.2-1.0) Gamma Glutamyl Transpeptidase 55 U/L (5-85) Aspartate Amino Transf (AST/SGOT) 144 U/L (15-37) H Alanine Aminotransferase (ALT/SGPT) 45 U/L (12-78) Alkaline Phosphatase 129 U/L (46-116) H Ammonia < 10 umol/L (11-32) L Troponin I 0.882 ng/mL (0.000-0.056) Pro-B-Type Natriuretic Peptide 62759 pg/mL (0-125) H Total Protein 4.6 G/DL (6.4-8.2) L Albumin 1.3 G/DL (3.4-5.0) L Globulin 3.3 g/dL Albumin/Globulin Ratio 0.4 (1.0-2.7) L Random Vancomycin Level 6.0 ug/mL Daryl Jones MD May 23, 2018 14:03
--- NOTE | 2018-05-23 14:11 | Immediate Post-Op Evaluation ---
Immediate Post-Op Evalulation Immediate Post-Op Evalulation Procedure: Exploratory Laparotomy, Bowel Resection Date of Evaluation: May 23, 2018 Time of Evaluation: 15:30 IV Fluids: 200 LR Blood Products: 0 Estimated Blood Loss: 25 Urinary Output: 0 Blood Pressure Systolic: 119 Blood Pressure Diastolic: 35 Pulse Rate: 62 Respiratory Rate: 20 - Mech Vent O2 Sat by Pulse Oximetry: 100 Temperature (Fahrenheit): 98.4 Pain Score (1-10): 0 Nausea: No Vomiting: No Complications 0 Patient Status: no response, patent, ventilated, none Hydration Status: adequate Drug: on Floor Anuj Dale MD May 23, 2018 14:11
--- NOTE | 2018-05-23 14:27 | NUR ---
NURSE NOTES:WOUND CARE NOTES:PT NOT SEEN PT OUT OF ROOM FOR PROCEDURE .
--- NOTE | 2018-05-23 14:43 | NUR ---
NURSE NOTES: Heparin stopped as of 13:00 due to need of emergency operation. Pharmacy notified.
--- NOTE | 2018-05-23 14:53 | NUR ---
RD ASSESSMENT & RECOMMENDATIONS SEE CARE ACTIVITY FOR COMPLETE ASSESSMENT DAILY ESTIMATED NEEDS: Needs based on ESRD on HD, wound, critical care/ 73.7kg abw 25-30 kcals/kg 4619-0790 total kcals 1.25-2 g protein/kg 92-147 g total protein 15-20 mL/kg 1568-0946 total fluid mLs NUTRITION DIAGNOSIS: 1) Increased kcal and protein needs r/t renal dysfunction, wound healing, surgery as evidenced by pt with ESRD on HD, partial thickness wound @ sacral cleft and stage 1 @ rt heel, s/p small bowel resection. 2) Altered GI function R/T recent lap matthew w/ possible complications as evidenced by pt admitted w/ c/o abdominal pain, s/p ex lap w/ finding of small bowel perforation in distal ileum, s/p small bowel resection w/ drain, NPO at this time, day 8. 3) Altered nutrition related lab values R/T ESRD, on steroidal med, DM dx, clinical condition, as evidenced by low Na (127l), elev K (5.9-> wnl), elev phos (10.6), elev BNP (93857), elev BGs (181-347), low BP, on pressors support. CURRENT TF: OGT clamped ENTERAL NUTRITION RECOMMENDATIONS: Ensure Clear 1 tetra bebo 5 times daily + Prosource 5 packs daily to provide TOTAL: 1410ml, 1400 kcal, 95g prot - If pt unable to wean but appropriate for clears, rec to obtain GI access, initiate trial feeds of Ensure Clear. - Rec Bolus feeds of Ensure Clear 1 tetra bebo / 5 times daily PLUS added Prosource 5 packs daily - At goal, Ensure Clear + Prosource to meet 76% est kcal and 100% est prot needs to not est fluids needs d/t HD. - NPO day 8 today, at high risk for refeeding. - HOB over 30 degrees + Flushes per MD. PARENTERAL NUTRITION RECOMMENDATIONS: D/AA Rate: 49 IL Rate: 8 Total Rate: 57 Volume: 1368 % Dextrose: 20 % AA: 6.5 Energy (kcals/kg): 1490 Protein (g/kg protein): 76 Nonprotein KCALS: 1184 GIR (mg CHO/kg/min): 2.2 % Fat KCALS: 25.7 NPC: N Ratio: 97 TPN Comment: * As medically able, rec TPN :s/p small bowel resection on 05/15, and in OR today for possible ex lap. NPO x 12 days today, reintubated. * D20% AA 6.5% @ 49ml/hr + IL20% @8ml/hr -> all 3:1, total of 57ml/hr. * Initiate TPN @ 27ml/hr x 6 hrs, advance 10ml q 4-6 hrs as tolerated to goal rate. * TPN @ goal will meet 81% est kcal and 83% est prot needs, GIR=2.2 * Consider insulin in TPN. ADDITIONAL RECOMMENDATIONS: 1) RE-calibrate bed scale for accurate CBW 2) RECOMMEND TPN W/ HEMODYNAMIC STABILITY- SEE ABOVE REC -> npo/no oral intake x 12 days, s/p bowel resection 3) W/ TPN: monitor lytes, BGs, LFTs daily- at high risk for refeeding 4) Consider insulin in TPN: h/o DM, elev BGs, on steroidal med .
--- NOTE | 2018-05-23 15:00 | Brief Operative Note ---
Immediate Post Operative Note Operative Note Pre-op Diagnosis: recent lap matthew, abdominal pain, sepsis, pneumoperitoneum, biliary leak vs bowel leak Procedure: 1. exploratory laparotomy 2. small bowel resection 3. abdominal washout 4. Abdominal wound VAC placement 5. Open abdomen for planned re-operation / exploration in 24 hrs Post-op Diagnosis: small bowel perforation in distal ileum Surgeon: richmond Anesthesiologist: sherwin Anesthesia: general Specimen: yes Complications: none Condition: unstable Fluids: see records Estimated Blood Loss: minimal Drains: wound vac Implant(s) used?: No Tomas Chandler May 23, 2018 15:00
--- NOTE | 2018-05-23 15:11 | Operative Note - PDOC ---
Operative Note Operative Note Pre-op Diagnosis: recent lap matthew, abdominal pain, sepsis, pneumoperitoneum, biliary leak vs bowel leak Procedure: left subclavian central venous catheter insertion Post-op Diagnosis: same as pre-op Surgeon: richmond Anesthesia: local Specimen: none Complications: none Condition: unstable Estimated Blood Loss: minimal Drains: none Implant(s) used?: No Indications for Procedure 78M septic shock from noted bowel perforation followed by exploration and anastomosis complicated by leak. hard peripheral access. only has one line from HD 3rd lumen. needs more venous access and central line that is clean / new for TPN. Description of Procedure A time-out was completed, verifying correct patient, procedure, site, positioning, and implant(s) or special equipment if applicable. Patients left subclavian area was prepped and draped in usual sterile fashion. 1% Lidocaine was used to anesthetize the area. A Triple lumen central line was introduced over a wire via the Seldinger technique, then sutured in place. Good blood flow was noted from all ports. The patient tolerated the procedure well. Chest x-ray was ordered to assess for pneumothorax and catheter placement. Tomas Chandler May 23, 2018 15:11
--- NOTE | 2018-05-23 15:31 | NUR ---
NURSE NOTES: Patient back from OR. Orders obtained to check central line placement on L subclavian with xray. Patient unarousable at this time due to sedation in OR. Wound vac placed and set up by dr. fragoso from OR. Patient supine at this time. Will continue plan of care. Re-intubated in OR with tube of 8.5 24 cm lipline same ventilator settings.
--- NOTE | 2018-05-23 16:42 | NUR ---
NURSE NOTES: Verbal order obtained OK to use line from radiology MD dr. Fulton.
--- NOTE | 2018-05-23 19:30 | NUR ---
NURSE NOTES:Received pt with eyes close, respond to pain stimuli only, Orally intubated on ac mode, SR on the monitor, Bp labile, Pt on Levophed drip at 30 mcg/min, Vasopressin drip at at 0.04u/min. Amiodarone drip off at this time.Abdomen with wound Vac to suction, draining brownish reddish in drainage moderate in amt. Pt is a Hd pt with Donis cath Rt femoral site and left subclavian site central line. Pt extremities were swollen , with multiple blisters and DTI , pls see pictures . Will continue to monitor spencer. pts vital signs.
--- NOTE | 2018-05-23 19:38 | NUR ---
NURSE NOTES: Transfused 10 units or cryoprecipitate per MD order. Volume of of product in the bag not specified by blood bank - unable to record total amount in MLs transferred.
--- NOTE | 2018-05-23 19:39 | NUR ---
HAND-OFF: Report given to MINGO Gage using SBAR. VSS. No distress noted.
[2018-05-23] MEDS: Dyna-Hex 2% Top Sol 2oz TOPIC SCH (20:20)
--- NOTE | 2018-05-23 22:00 | NUR ---
NURSE NOTES: Pt been on NSR, verified with Dr Stephenson if Amiodarone drip still needs to be continue, replied that he wants it to continue.
[2018-05-23] MEDS ORDERED: Amiodarone 900 MG in D5W 500ml 482 ML IV SCH (22:30)
[2018-05-23] MEDS ORDERED: Amiodarone 150mg/ml 3ml Amp ONE ×2 (23:35→23:38)
[2018-05-24] VITALS (69 sets, daily range): BP systolic 80–191; BP diastolic 14–56
--- NOTE | 2018-05-24 | NUR ---
NURSE NOTES:Wound VAC was replaced. continer was filled up , with reddish brownish drainge 500 ml.
--- NOTE | 2018-05-24 00:42 | Consultation ---
DATE OF CONSULTATION: 05/23/2018 GASTROENTEROLOGY CONSULTATION CONSULTING PHYSICIAN: Lisa Jain M.D. REFERRING PHYSICIAN: Samantha Head M.D. CHIEF COMPLAINT: I was asked to see this patient by Dr. Samantha Head for TPN. HISTORY OF PRESENT ILLNESS: The patient is an unfortunate 78-year-old man who underwent a cholecystectomy recently. He was admitted subsequently with sepsis syndrome that eventually resulted in surgical intervention showing a small bowel perforation in the distal small bowel. Perforation was repaired and the patient has subsequently remained well in the ICU. Today's evaluation shows the wound complication and consideration has been made for return to the OR for repair. The patient is on pressors and was unable to receive dialysis completely yesterday due to his hypotension. He has not been fed for more than 10 days effectively. The patient himself is intubated and is not able to provide any history. There is no family at bedside. Most of the information is only available from the chart. PAST MEDICAL HISTORY: Organic brain syndrome, diabetes, hypertension, end-stage renal disease on dialysis, prostatic hypertrophy, history of kidney stones, gout, gastroesophageal reflux disease, nsn-yafrmva-gkofviaph diabetes, history of anxiety, constipation, depression, insomnia, status post recent cholecystectomy, status post exploratory laparotomy, and repair of small bowel perforation. FAMILY HISTORY: Noncontributory. SOCIAL HISTORY: The patient has had no history of smoking or drinking. REVIEW OF SYSTEMS: Unable to obtain. MEDICATIONS: See the chart list for details. PHYSICAL EXAMINATION: GENERAL: Debilitated white man, seen in the ICU. HEENT: Normocephalic and atraumatic. The patient is intubated. CHEST: Revealed fair rhonchi. CARDIOVASCULAR: Revealed regular rate. ABDOMEN: Distended and subsequently was opened by the surgical staff. Jose-Rodriguez tube was noted and draining scant amount of fluid. EXTREMITIES: Revealed no edema, but there was some purplish discoloration to the toes bilaterally. NEUROLOGIC: Deferred. LABORATORY DATA: Noted. ASSESSMENT: Due to ongoing sepsis this patient has been unable to undergo adequate dialysis. I have discussed the management of the above with the surgical staff and with nephrology call center support consultant. At this point, since the patient may not be able to be dialyzed effectively given TPN may cause fluid and electrolyte disturbances that may possibly do more harm and therefore I will hold off another 24 hours for now. He should receive a second peripheral line if possible today to allow for TPN tomorrow if his hemodynamic status is more stabilized and his pressure is better, so he can be dialyzed and TPN can be given with less concern. In the meantime, the patient will be kept NPO under close ICU observation. RECOMMENDATIONS: Per above discussion and per orders written in the chart. Thank you for asking me to participate in the care of this patient. Lisa Jain M.D. DR: RENITA JOB#: [id number] CC: RON
--- NOTE | 2018-05-24 00:42 | Operative Note - Dictated ---
DATE OF OPERATION: 05/23/2018 PREOPERATIVE DIAGNOSES: 1. Severe sepsis/septic shock. 2. Recent laparoscopic cholecystectomy with iatrogenic small bowel perforation at outside facility. 3. Recent exploratory laparotomy with abdominal washout, bowel resection, and primary anastomosis. 4. Anastomotic leak. POSTOPERATIVE DIAGNOSES: 1. Severe sepsis/septic shock. 2. Recent laparoscopic cholecystectomy with iatrogenic small bowel perforation at outside facility. 3. Recent exploratory laparotomy with abdominal washout, bowel resection, and primary anastomosis. 4. Anastomotic leak. 5. Small bowel anastomotic leak. OPERATION PERFORMED: 1. Exploratory laparotomy. 2. Small bowel resection. 3. Abdominal washout. 4. Abdominal wound VAC placement. 5. Open abdomen for planned reoperation/reexploration in 24 hours. ATTENDING SURGEON: Tomas Chandler M.D. WRINGER MACHINE OPERATOR: None. ANESTHESIOLOGIST: Anuj Dale M.D.. ANESTHESIA: General ASSOCIATE PROFESSOR OF LIBRARY MEDIA. ESTIMATED BLOOD LOSS: Minimal. IV FLUIDS: Please see anesthesia records. COMPLICATIONS: None. DRAINS: Abdominal wound VAC. CONDITION: Stable. INDICATIONS FOR PROCEDURE: This is a 78-year-old male who recently had a laparoscopic cholecystectomy at an outside facility and presented to [facility] soon after. The patient initially had respiratory complaints and developed abdominal pain worsening, deteriorating condition, and was taken to the operating room for exploration, at which time a small bowel perforation was identified in the ileal and small bowel resection was performed with primary ppit-he-fjgw anastomosis. Complete abdominal washout and drain placement. Postoperatively, the patient did well, but then began to deteriorate again with severe septic shock. The patient was resuscitated and once no longer deteriorating and slowly improving, decision was made to take the patient to the operating room for reexploration given the likelihood of an anastomotic leak. Given the patient had no power of commonwealth attorney or next of kin and is unable to consent at this time, emergency consent was obtained. The patient was taken to the operating room on 05/23/2018. OPERATIVE NOTE: The patient was taken to the operating room and placed on the operating table in the supine position with bilateral arms out. All bony prominences well padded. SCDs were placed. Following this, the abdomen was clipped, prepped, and draped in the standard surgical fashion. The prior surgical suture was identified and removed and the abdomen was opened. Approximately 3 L of bilious and their content were evacuated. Following this, the prior anastomosis was identified and the anterior layer was okay, but the posterior mesenteric layer had a leak at the staple line, which was clearly identified. A small bowel resection was performed of this segment, which was begun by identifying proximal and distal area of transection. mesenteric window was made with electrocautery and a linear stapler was used and fired proximally and distally. The mesentery was then divided using electrocautery and 0 silk ties. Following this, the specimen was sent to pathology for review. The abdomen was then irrigated with copious approximately 8 L of warm normal saline until clear. All four quadrants and pelvis were cleared. The small bowel was run from the ligament of Treitz down to proximal aspect of recent division followed by the distal division to the cecum. The ascending, transverse, descending, and sigmoid colon to the sigmoid rectal junction, otherwise healthy and normal. There was edema throughout the peritoneum, mesentery, and bowel. No other perforation abnormalities noted. Stomach was otherwise healthy with NG tube in place and the remaining omentum was identified with bilious staining. Liver and gallbladder fossa were stable. At this time, once washout was completed on all quadrants and the abdomen was reinspected, decision was made to leave the abdomen open for planned reexploration in 24 hours followed by definitive treatment. After the wound VAC was placed and once completed, the patient was taken directly into the intensive care unit for the remainder of the care with planned reexploration for tomorrow. Tomas Chandler M.D. DR: TRINA JOB#: [id number] CC: RON
--- NOTE | 2018-05-24 02:00 | NUR ---
NURSE NOTES:Complete bath with bed changed done. Bp stable at this time.
[2018-05-24] MEDS: Norepinephrine Bitartrate 8 MG in D5W 500ml 492 ML IV SCH ×4 (02:45→18:05)
[2018-05-24] MEDS: Hydrocortisone 100mg Inj IV SCH ×3 (05:39→21:55)
[2018-05-24] MEDS: Piperacillin/Tazobactam 2.25 GM in D5W 55 ML IVPB SCH ×3 (05:39→22:48)
[2018-05-24] MEDS: NovoLOG Insulin Flexpen SUBQ SCH ×5 (06:11→21:21)
--- NOTE | 2018-05-24 07:25 | NUR ---
NURSE NOTES: Still no call back received from Dr. Head. Josiah MEANS again to inform on the abnormal lab results. Awaiting for call back. Addendum: 05/24/18 at 1134 by Rowan Bronson RN NURSE NOTES: Disregard above entry. Time entry error.
[2018-05-24 07:28] LABS: ALANINE AMINOTRANSFERASE 35 U/L (12-78); ALBUMIN 1.2 G/DL (3.4-5.0); ALBUMIN/GLOBULIN RATIO 0.4 (1.0-2.7); ALKALINE PHOSPHATASE 107 U/L (46-116); ANION GAP 22 mmol/L (5-15); ASPARTATE AMINO TRANSFERASE 84 U/L (15-37); BILIRUBIN,TOTAL 0.9 MG/DL (0.2-1.0); BLOOD UREA NITROGEN 103 mg/dL (7-18); CARBON DIOXIDE 16 MMOL/L (21-32); CHLORIDE 83 MMOL/L (98-107); CREATININE 6.8 MG/DL (0.55-1.30); SODIUM 121 MMOL/L (136-145)
[2018-05-24 07:30] LABS: HEMATOCRIT 19.7 % (42.0-52.0); MEAN CORPUSCULAR VOLUME 94 FL (80-99); PLATELET COUNT 268 K/UL (150-450); RED CELL DISTRIBUTION WIDTH 15.3 % (11.6-14.8); WHITE BLOOD COUNT 5.5 K/UL (4.8-10.8)
[2018-05-24 07:40] LABS: HEMOGLOBIN 6.2 G/DL (14.2-18.0)
--- NOTE | 2018-05-24 07:41 | NUR ---
HAND-OFF: Report given to Rowan AGUILA using SBAR.
--- NOTE | 2018-05-24 07:45 | NUR ---
NURSE NOTES: Report received from Narayan Maguire RN. Patient noted stuporous, opens eyes to light pain,locate pain. With patent and intact ETT size 8.5 at 24 cm lip level to mechanical ventilator AC rate:16, TV:500, FiO2:55%, PEEP:5 with oxygen saturation of 100%, no SOB noted. With patent and intact left subclavian TLC, able to draw blood with on going Amiodarone at 0.05mg/minute, noted SR on monitor with rate 60s-70s. With patent and intact right femoral dialysis catheter with pig tail with on going Levophed at 30 mcg/minute and Vasopressin at 0.04 units/minute with SBP 110s-120s. Will titrate as ordered and transferred infusions on left subclavian TLC. With patent and intact OGT at 65 cm lip level to low intermittent suction with noted dark red drainage. With abdominal surgical wound with patent and intact wound vac at 120mmhg suction with red colored drainage noted on cannester. On airloss matress. Bed turning done, all extremities elevated with pillows. Placed bed on lowest position.
--- NOTE | 2018-05-24 07:51 | NUR ---
NURSE NOTES: Called Dr. Head to inform on the HGB:6.2, HCT:19.7. Patient is scheduled for surgery in the afternoon. With noted red colored drainage from NGT and abdominal wound vac. Awaiting for call back.
[2018-05-24] MEDS: Pantoprazole Inj IVP SCH ×2 (08:20→21:19)
--- NOTE | 2018-05-24 08:25 | NUR ---
NURSE NOTES: Still no call back received from Dr. Head. Paged again to inform on the abnormal lab results. Awaiting for call back.
--- NOTE | 2018-05-24 08:35 | NUR ---
NURSE NOTES: Called and spoke with Dr. Arroyo and made aware of lab results including chem and HGB:6.2 with order of HD and transfusion of 2 units PRBC.
--- NOTE | 2018-05-24 08:50 | NUR ---
NURSE NOTES: Spoke with Reinaldo, HD nurse from [facility] hemodialysis and made aware of the order of HD today. He stated he will come.
[2018-05-24] MEDS ORDERED: Vancomycin 1gm in D5W 275ml IVPB SCH (09:00)
--- NOTE | 2018-05-24 09:19 | General Progress Note ---
Assessment/Plan Assessment/Plan (1) Abdominal pain (2) S/p Lap Cholecystectomy (3) Encephalopathy /septic shock (4) ESRD on hemodialysis (5) S/p emergent exploratory laboratory small bowel resection omentectomy due to small bowel perforation in distal ileum Patient to be continued on Dilaudid and Tylenol. Parameters to be continued. D/w Dr. Busby and he concurred. Subjective Date patient seen: May 24, 2018 Time patient seen: 07:30 - am ROS Limited/Unobtainable: Yes Allergies: Coded Allergies: No Known Allergies (Unverified , 11/12/12) Subjective Patient continues to be intubated on vent. He is s/p exploratory lap with wound washout and wound vac placement. As per nurse Dr. Chandler may be taking pt to OR again for another Exploratory lap. Patient is showing no signs of pain or distress and has had no Dialudid in the last 24hrs. D/w nurse. Objective Last 24 Hour Vital Signs Date Time Temp Pulse Resp B/P (MAP) Pulse Ox O2 Delivery O2 Flow Rate FiO2 05/24/18 08:05 91/17 05/24/18 06:44 63 28 60 05/24/18 06:30 70 25 110/31 (57) 100 05/24/18 06:00 72 25 118/31 (60) 100 05/24/18 05:30 72 25 120/31 (60) 100 05/24/18 05:20 80 33 60 05/24/18 05:00 152/31 05/24/18 05:00 69 25 140/31 (67) 100 05/24/18 04:30 70 25 152/31 (71) 100 05/24/18 04:00 Mechanical Ventilator Mechanical Ventilator 05/24/18 04:00 55 05/24/18 04:00 143/27 05/24/18 04:00 98.9 70 29 143/27 (65) 100 05/24/18 03:30 70 29 142/27 (65) 100 05/24/18 03:28 82 33 60 05/24/18 03:00 65 26 118/29 (58) 100 05/24/18 02:45 127/28 05/24/18 02:30 62 26 116/29 (58) 100 05/24/18 02:00 62 26 119/30 (59) 100 05/24/18 01:27 63 25 60 05/24/18 01:00 61 26 103/30 (54) 100 05/24/18 01:00 103/30 05/24/18 00:30 63 25 103/30 (54) 100 05/24/18 00:00 99.0 64 25 108/35 (59) 100 05/24/18 00:00 67 05/24/18 00:00 108/35 05/24/18 00:00 Mechanical Ventilator Mechanical Ventilator 05/24/18 00:00 55 05/23/18 23:53 110/42 05/23/18 23:51 92/18 05/23/18 23:30 65 24 60 05/23/18 23:30 78 22 121/33 (62) 100 05/23/18 23:00 77 22 97/30 (52) 100 05/23/18 23:00 97/30 05/23/18 22:30 65 22 121/33 (62) 100 05/23/18 22:17 110/37 05/23/18 22:00 65 21 110/37 (61) 100 05/23/18 21:30 70 21 140/30 (66) 100 05/23/18 21:29 75 19 60 05/23/18 21:00 65 19 110/29 (56) 100 05/23/18 21:00 123/21 05/23/18 20:30 63 18 118/23 (54) 100 05/23/18 20:00 Mechanical Ventilator Mechanical Ventilator 05/23/18 20:00 55 05/23/18 20:00 110/29 05/23/18 20:00 123/21 05/23/18 20:00 84 05/23/18 20:00 99.4 62 17 123/21 (55) 100 05/23/18 19:06 59 17 60 05/23/18 19:00 59 18 124/25 (58) 100 05/23/18 18:30 58 25 94/25 (48) 100 05/23/18 18:00 57 30 90/25 (46) 100 05/23/18 17:30 62 30 98/30 (52) 100 05/23/18 17:04 65 20 60 05/23/18 17:00 58 30 115/32 (59) 100 05/23/18 16:30 99.0 60 25 108/28 (54) 99 05/23/18 16:13 92/22 05/23/18 16:00 Mechanical Ventilator Mechanical Ventilator 05/23/18 16:00 77 30 110/30 (56) 99 05/23/18 15:36 60 05/23/18 15:15 62 20 100 05/23/18 15:10 66 24 60 05/23/18 13:00 70 30 118/32 (60) 99 05/23/18 12:30 72 28 115/30 (58) 99 05/23/18 12:00 Mechanical Ventilator Mechanical Ventilator 05/23/18 12:00 98.8 74 30 113/28 (56) 99 05/23/18 12:00 60 05/23/18 11:30 70 30 110/25 (53) 99 05/23/18 11:00 72 30 122/30 (60) 99 05/23/18 11:00 77 125/30 05/23/18 10:40 66 33 60 05/23/18 10:36 100 05/23/18 10:30 75 30 125/30 (61) 100 05/23/18 10:00 74 30 110/28 (55) 100 05/23/18 09:30 77 28 118/25 (56) 100 05/23/18 09:29 63 35 60 Intake and Output 05/23/18 05/24/18 19:00 07:00 Intake Total 1199.18 ml 1138.86 ml Output Total 675 ml 770 ml Balance 524.18 ml 368.86 ml Intake Oral 250 ml IV Total 729.18 ml 1138.86 ml Hemodialysis 200 ml Other 20 ml Output Urine Total 0 ml 0 ml Gastric Drainage Total 250 ml 150 ml Drainage Total 425 ml 620 ml Hemodialysis UF 0 ml # Voids 1 # Bowel Movements 8 6 Laboratory Tests 05/23/18 09:30: Lactic Acid Level 4.30H 05/23/18 14:05: Activated Partial Thromboplast Time 84H 05/23/18 16:15: Lactic Acid Level 6.50H 05/24/18 05:30: Lactic Acid Level 4.30H, White Blood Count 5.5, Red Blood Count 2.10L, Hemoglobin 6.2*L, Hematocrit 19.7L, Mean Corpuscular Volume 94, Mean Corpuscular Hemoglobin 29.6, Mean Corpuscular Hemoglobin Concent 31.5L, Red Cell Distribution Width 15.3H, Platelet Count 268, Mean Platelet Volume 9.2, Neutrophils (%) (Auto) , Lymphocytes (%) (Auto) , Monocytes (%) (Auto) , Eosinophils (%) (Auto) , Basophils (%) (Auto) , Neutrophils % (Manual) [Pending] , Lymphocytes % (Manual) [Pending], Platelet Estimate [Pending], Platelet Morphology [Pending], Sodium Level 121L, Potassium Level 4.0, Chloride Level 83L , Carbon Dioxide Level 16L, Anion Gap 22H, Blood Urea Nitrogen 103H, Creatinine 6.8H, Estimat Glomerular Filtration Rate , Glucose Level 252H, Calcium Level 7.0L, Total Bilirubin 0.9, Aspartate Amino Transf (AST/SGOT) 84H, Alanine Aminotransferase (ALT/SGPT) 35, Alkaline Phosphatase 107, Total Protein 4.5L, Albumin 1.2L, Globulin 3.3, Albumin/Globulin Ratio 0.4L, Random Vancomycin Level 14.6 05/24/18 08:20: Lactic Acid Level 4.40H Height (Feet): 5 Height (Inches): 4.00 Weight (Pounds): 184 Objective GENERAL: Intubated. LUNGS: Decreased breath sounds bilaterally. HEART: S1 S2 Regular. ABDOMEN: Wound vac noted. EXTREMITIES: No cyanosis. No clubbing. Sid Holland May 24, 2018 09:19
--- NOTE | 2018-05-24 10:00 | NUR ---
NURSE NOTES: Patient resting comfortably. No s/sx of distress with oxygen saturation of 100% on current ventilator setting. Was able to turn off Vasopressin at 0900 but restarted prior to starting Hemodialysis with noted [id number]. On going HD. Seen on rounds by Dr. Arroyo, Amalia VICTORIA and Dr. Leon, no new order received at this time. Patient currently at Amiodaron 0.05 mg/minute, SR on 80s on the monitor. On Vasopressin at 0.04units/minute and Levophed at 30 mcg/minute. Repositioning done. Called blood bank and 2 units PRBC available. Waiting for HD nurse to request and start transfusion. Patient remained afebrile.
[2018-05-24 10:22] LABS: HEMATOCRIT 18.8 % (42.0-52.0); MEAN CORPUSCULAR VOLUME 93 FL (80-99); PLATELET COUNT 211 K/UL (150-450); RED BLOOD COUNT 2.01 M/UL (4.70-6.10); RED CELL DISTRIBUTION WIDTH 15.6 % (11.6-14.8); WHITE BLOOD COUNT 4.9 K/UL (4.8-10.8)
[2018-05-24 10:31] LABS: HEMOGLOBIN 5.9 G/DL (14.2-18.0)
--- NOTE | 2018-05-24 10:49 | Nephrology Progress Note ---
Assessment/Plan Problem List: (1) ESRD (end stage renal disease) on dialysis (2) Perforated bowel (3) Hyponatremia (4) Major depression (5) Nausea & vomiting (6) H/O abdominal surgery Assessment: recent (7) Shock Assessment patient on 2 pressors recent abdominal surgery hemodynamically stablized over night Presents with CHF and Low Na ESRD ACS DM HTN h/o GI bleed Depression Plan on HD now Due transfusion 2 units- to OR this afternoon doing poorly On pressor on steroids on Midodrine weaning as possible insulin for high BS hold dig , check levels, resume as needed no NGT ,On Vent Psych started Zoloft PO ? Will DC ZOLOFT. Has abd surgery 05/15 Perforated bowel graft clotted , has a femoral felice right HOLD ALL MIND ALTERING MEDS - DC all po meds FLUID CHALLENGE pressors as needed BP HR Pain control discussed with RN and Dr Karen LAUREN protonix Subjective ROS Limited/Unobtainable: Yes Objective Objective Last 24 Hour Vital Signs Date Time Temp Pulse Resp B/P (MAP) Pulse Ox O2 Delivery O2 Flow Rate FiO2 05/24/18 09:34 Endotracheal Tube 55 05/24/18 09:26 77 30 60 05/24/18 09:15 77 25 107/31 (56) 100 05/24/18 09:00 83 25 130/30 (63) 100 05/24/18 08:45 84 25 122/26 (58) 100 05/24/18 08:30 75 25 122/26 (58) 100 05/24/18 08:15 81 25 103/16 (45) 100 05/24/18 08:05 91/17 05/24/18 08:00 80 05/24/18 08:00 55 05/24/18 08:00 Mechanical Ventilator Mechanical Ventilator 05/24/18 08:00 97.9 76 25 91/17 (41) 100 05/24/18 07:45 65 25 110/31 (57) 100 05/24/18 07:30 73 25 157/22 (67) 100 05/24/18 07:15 63 25 110/31 (57) 100 05/24/18 07:00 65 25 97/28 (51) 100 05/24/18 06:44 63 28 60 05/24/18 06:30 70 25 110/31 (57) 100 05/24/18 06:00 72 25 118/31 (60) 100 05/24/18 05:30 72 25 120/31 (60) 100 05/24/18 05:20 80 33 60 05/24/18 05:00 152/31 05/24/18 05:00 69 25 140/31 (67) 100 05/24/18 04:30 70 25 152/31 (71) 100 05/24/18 04:00 Mechanical Ventilator Mechanical Ventilator 05/24/18 04:00 55 05/24/18 04:00 143/27 05/24/18 04:00 98.9 70 29 143/27 (65) 100 05/24/18 03:30 70 29 142/27 (65) 100 05/24/18 03:28 82 33 60 05/24/18 03:00 65 26 118/29 (58) 100 05/24/18 02:45 127/28 05/24/18 02:30 62 26 116/29 (58) 100 05/24/18 02:00 62 26 119/30 (59) 100 05/24/18 01:27 63 25 60 05/24/18 01:00 61 26 103/30 (54) 100 05/24/18 01:00 103/30 05/24/18 00:30 63 25 103/30 (54) 100 05/24/18 00:00 99.0 64 25 108/35 (59) 100 05/24/18 00:00 67 05/24/18 00:00 108/35 05/24/18 00:00 Mechanical Ventilator Mechanical Ventilator 05/24/18 00:00 55 05/23/18 23:53 110/42 05/23/18 23:51 92/18 05/23/18 23:30 65 24 60 05/23/18 23:30 78 22 121/33 (62) 100 05/23/18 23:00 77 22 97/30 (52) 100 05/23/18 23:00 97/30 05/23/18 22:30 65 22 121/33 (62) 100 05/23/18 22:17 110/37 05/23/18 22:00 65 21 110/37 (61) 100 05/23/18 21:30 70 21 140/30 (66) 100 05/23/18 21:29 75 19 60 05/23/18 21:00 65 19 110/29 (56) 100 05/23/18 21:00 123/21 05/23/18 20:30 63 18 118/23 (54) 100 05/23/18 20:00 Mechanical Ventilator Mechanical Ventilator 05/23/18 20:00 55 05/23/18 20:00 110/29 05/23/18 20:00 123/21 05/23/18 20:00 84 05/23/18 20:00 99.4 62 17 123/21 (55) 100 05/23/18 19:06 59 17 60 05/23/18 19:00 59 18 124/25 (58) 100 05/23/18 18:30 58 25 94/25 (48) 100 05/23/18 18:00 57 30 90/25 (46) 100 05/23/18 17:30 62 30 98/30 (52) 100 05/23/18 17:04 65 20 60 05/23/18 17:00 58 30 115/32 (59) 100 05/23/18 16:30 99.0 60 25 108/28 (54) 99 05/23/18 16:13 92/22 05/23/18 16:00 Mechanical Ventilator Mechanical Ventilator 05/23/18 16:00 77 30 110/30 (56) 99 05/23/18 15:36 60 05/23/18 15:15 62 20 100 05/23/18 15:10 66 24 60 05/23/18 13:00 70 30 118/32 (60) 99 05/23/18 12:30 72 28 115/30 (58) 99 05/23/18 12:00 Mechanical Ventilator Mechanical Ventilator 05/23/18 12:00 98.8 74 30 113/28 (56) 99 05/23/18 12:00 60 05/23/18 11:30 70 30 110/25 (53) 99 05/23/18 11:00 72 30 122/30 (60) 99 05/23/18 11:00 77 125/30 Intake and Output 05/23/18 05/24/18 19:00 07:00 Intake Total 1199.18 ml 1138.86 ml Output Total 675 ml 770 ml Balance 524.18 ml 368.86 ml Intake Oral 250 ml IV Total 729.18 ml 1138.86 ml Hemodialysis 200 ml Other 20 ml Output Urine Total 0 ml 0 ml Gastric Drainage Total 250 ml 150 ml Drainage Total 425 ml 620 ml Hemodialysis UF 0 ml # Voids 1 # Bowel Movements 8 6 Laboratory Tests 05/23/18 14:05: Activated Partial Thromboplast Time 84H 05/23/18 16:15: Lactic Acid Level 6.50H 05/24/18 05:30: Lactic Acid Level 4.30H, White Blood Count 5.5, Red Blood Count 2.10L, Hemoglobin 6.2*L, Hematocrit 19.7L, Mean Corpuscular Volume 94, Mean Corpuscular Hemoglobin 29.6, Mean Corpuscular Hemoglobin Concent 31.5L, Red Cell Distribution Width 15.3H, Platelet Count 268, Mean Platelet Volume 9.2, Neutrophils (%) (Auto) , Lymphocytes (%) (Auto) , Monocytes (%) (Auto) , Eosinophils (%) (Auto) , Basophils (%) (Auto) , Differential Total Cells Counted 100, Neutrophils % (Manual) 67, Lymphocytes % (Manual) 1L, Monocytes % ( Manual) 12H, Eosinophils % (Manual) 0, Basophils % (Manual) 0, Band Neutrophils 20H, Platelet Estimate Adequate, Platelet Morphology See comment, Giant Platelets Occasional, Hypochromasia 1+, Anisocytosis 1+, Sodium Level 121L, Potassium Level 4.0, Chloride Level 83L, Carbon Dioxide Level 16L, Anion Gap 22H , Blood Urea Nitrogen 103H, Creatinine 6.8H, Estimat Glomerular Filtration Rate , Glucose Level 252H, Calcium Level 7.0L, Total Bilirubin 0.9, Aspartate Amino Transf (AST/SGOT) 84H, Alanine Aminotransferase (ALT/SGPT) 35, Alkaline Phosphatase 107, Total Protein 4.5L, Albumin 1.2L, Globulin 3.3, Albumin/ Globulin Ratio 0.4L, Random Vancomycin Level 14.6 05/24/18 08:20: Lactic Acid Level 4.40H 05/24/18 09:50: White Blood Count 4.9, Red Blood Count 2.01L, Hemoglobin 5.9*L, Hematocrit 18.8L , Mean Corpuscular Volume 93, Mean Corpuscular Hemoglobin 29.4, Mean Corpuscular Hemoglobin Concent 31.6L, Red Cell Distribution Width 15.6H, Platelet Count 211, Mean Platelet Volume 8.1, Neutrophils (%) (Auto) , Lymphocytes (%) (Auto) , Monocytes (%) (Auto) , Eosinophils (%) (Auto) , Basophils (%) (Auto) , Neutrophils % (Manual) [Pending], Lymphocytes % (Manual) [Pending], Platelet Estimate [Pending], Platelet Morphology [Pending] Height (Feet): 5 Height (Inches): 4.00 Weight (Pounds): 190 General Appearance: no apparent distress Cardiovascular: normal rate Respiratory/Chest: decreased breath sounds Abdomen: distended, other - open wounds Objective no change Maurilio Arroyo MD May 24, 2018 10:49
--- NOTE | 2018-05-24 10:50 | NUR ---
NURSE NOTES: Called Dr. Chandler and made aware of the repeat H/H. HGB:5.9, HCT:18.8 drawn prior to transfusion. On going transfusion of 2nd unit PRBC while on HD. Awaiting for further orders.
[2018-05-24] MEDS: Phenylephrine 50 MG in D5W 245 ML IV SCH (11:00)
--- NOTE | 2018-05-24 11:20 | NUR ---
NURSE NOTES: Patient still on going HD. Completed transfusion of 2 units PRBC during HD. No s/sx of transfusion reaction noted at this time. Still SR on the monitor 80s-90s. Still with on going Amiodarone drip at 0.05 mg/minute. Current BP:145/35 still on Levophed at 30 mcg/minute and Vasopressin at 0.04unit/minute. Will restart titrate down once hemodialysis completed. Patient remains stuporous. No desaturation noted on current ventilator setting with oxygen saturation of 100%. No s/sx of pain noted.
--- NOTE | 2018-05-24 12:00 | NUR ---
NURSE NOTES: Patient resting comfortably. No s/sx of distress with oxygen saturation of 100% on current ventilator setting. SR on the monitor still on Amiodarone drip. Was able to turn off Vasopressin and is currently on Levophed at 30 mcg/minute. Seen on rounds by Dr. Stephenson with order to keep Amiodarone at this time. Repositioning done. Oral care and suctioning done.
--- NOTE | 2018-05-24 12:15 | NUR ---
NURSE NOTES: Left message to Dr. Antunez to ask MD on the specific procedure that is planned for today. Patient does not have family to consent at this time. Called to ask to inform PMD and another MD to make note for emergency need for the surgaery. Awaiting for call back.
--- NOTE | 2018-05-24 12:22 | Infectious Diseases Prog Note ---
Assessment/Plan Assessment/Plan A: 1. serratia , Enterobacter sepsis with shock 2. VRE colonization 3. diabetes mellitus 4. hypertension 5. 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 leucocytosis 6. A fib with RVR 7. Small bowel perforation 8. Perioperative respiratory failure 9. Atelectasis versus Pneumonia 10 Peritonitis with Citrobacter & Serratia 11. sepsis, septic shock 12. Lactic acidosis 13. Anemia 14. Anastomosis leak P 1. continue Zosyn and Micafungin & IV Vancomycin 2. Consider TPN Subjective ROS Limited/Unobtainable: Yes Constitutional: Reports: other - in critical condition in ICU Gastrointestinal/Abdominal: Reports: other - went to OR yesterday, had small bowel resection & wound Vac Allergies: Coded Allergies: No Known Allergies (Unverified , 11/12/12) Objective Vital Signs Last 24 Hour Vital Signs Date Time Temp Pulse Resp B/P (MAP) Pulse Ox O2 Delivery O2 Flow Rate FiO2 05/24/18 11:00 80 25 138/45 (76) 100 05/24/18 11:00 84 138/45 05/24/18 10:59 78 32 60 05/24/18 10:45 89 32 138/45 (76) 100 05/24/18 10:30 89 32 110/45 (66) 100 05/24/18 10:15 90 31 115/22 (53) 100 05/24/18 10:00 90 31 108/21 (50) 100 05/24/18 09:45 85 25 100/14 (42) 100 05/24/18 09:34 Endotracheal Tube 55 05/24/18 09:30 84 25 101/19 (46) 100 05/24/18 09:26 77 30 60 05/24/18 09:15 77 25 107/31 (56) 100 05/24/18 09:00 83 25 130/30 (63) 100 05/24/18 08:45 84 25 122/26 (58) 100 05/24/18 08:30 75 25 122/26 (58) 100 05/24/18 08:15 81 25 103/16 (45) 100 05/24/18 08:05 91/17 05/24/18 08:00 80 05/24/18 08:00 55 05/24/18 08:00 Mechanical Ventilator Mechanical Ventilator 05/24/18 08:00 97.9 76 25 91/17 (41) 100 05/24/18 07:45 65 25 110/31 (57) 100 05/24/18 07:30 73 25 157/22 (67) 100 05/24/18 07:15 63 25 110/31 (57) 100 05/24/18 07:00 65 25 97/28 (51) 100 05/24/18 06:44 63 28 60 05/24/18 06:30 70 25 110/31 (57) 100 05/24/18 06:00 72 25 118/31 (60) 100 05/24/18 05:30 72 25 120/31 (60) 100 05/24/18 05:20 80 33 60 05/24/18 05:00 152/31 05/24/18 05:00 69 25 140/31 (67) 100 05/24/18 04:30 70 25 152/31 (71) 100 05/24/18 04:00 Mechanical Ventilator Mechanical Ventilator 05/24/18 04:00 55 05/24/18 04:00 143/27 05/24/18 04:00 98.9 70 29 143/27 (65) 100 05/24/18 03:30 70 29 142/27 (65) 100 05/24/18 03:28 82 33 60 05/24/18 03:00 65 26 118/29 (58) 100 05/24/18 02:45 127/28 05/24/18 02:30 62 26 116/29 (58) 100 05/24/18 02:00 62 26 119/30 (59) 100 05/24/18 01:27 63 25 60 05/24/18 01:00 61 26 103/30 (54) 100 05/24/18 01:00 103/30 05/24/18 00:30 63 25 103/30 (54) 100 05/24/18 00:00 99.0 64 25 108/35 (59) 100 05/24/18 00:00 67 05/24/18 00:00 108/35 05/24/18 00:00 Mechanical Ventilator Mechanical Ventilator 05/24/18 00:00 55 05/23/18 23:53 110/42 05/23/18 23:51 92/18 05/23/18 23:30 65 24 60 05/23/18 23:30 78 22 121/33 (62) 100 05/23/18 23:00 77 22 97/30 (52) 100 05/23/18 23:00 97/30 05/23/18 22:30 65 22 121/33 (62) 100 05/23/18 22:17 110/37 05/23/18 22:00 65 21 110/37 (61) 100 05/23/18 21:30 70 21 140/30 (66) 100 05/23/18 21:29 75 19 60 05/23/18 21:00 65 19 110/29 (56) 100 05/23/18 21:00 123/21 05/23/18 20:30 63 18 118/23 (54) 100 05/23/18 20:00 Mechanical Ventilator Mechanical Ventilator 05/23/18 20:00 55 05/23/18 20:00 110/29 05/23/18 20:00 123/21 05/23/18 20:00 84 05/23/18 20:00 99.4 62 17 123/21 (55) 100 05/23/18 19:06 59 17 60 05/23/18 19:00 59 18 124/25 (58) 100 05/23/18 18:30 58 25 94/25 (48) 100 05/23/18 18:00 57 30 90/25 (46) 100 05/23/18 17:30 62 30 98/30 (52) 100 05/23/18 17:04 65 20 60 05/23/18 17:00 58 30 115/32 (59) 100 05/23/18 16:30 99.0 60 25 108/28 (54) 99 05/23/18 16:13 92/22 05/23/18 16:00 Mechanical Ventilator Mechanical Ventilator 05/23/18 16:00 77 30 110/30 (56) 99 05/23/18 15:36 60 05/23/18 15:15 62 20 100 05/23/18 15:10 66 24 60 05/23/18 13:00 70 30 118/32 (60) 99 05/23/18 12:30 72 28 115/30 (58) 99 Height (Feet): 5 Height (Inches): 4.00 Weight (Pounds): 190 HEENT: other - orally intubated Respiratory/Chest: lungs clear, other - on ventilator Cardiovascular: other - subclavian line Abdomen: other - midline wound-vac, LLQ drain Extremities: other Neurologic/Psychiatric: unresponsiveness Microbiology Date/Time Source Procedure Growth Status 05/22/18 12:00 Abdomen Gram Stain - Final Resulted 05/22/18 12:00 Wound Culture - Preliminary Gram Negative Bacillus 1 Resulted Laboratory Tests Test 05/23/18 14:05 05/23/18 16:15 05/24/18 05:30 05/24/18 08:20 Activated Partial Thromboplast Time 84 SEC (23-33) H Lactic Acid Level 6.50 mmol/L (0.4-2.0) H 4.30 mmol/L (0.4-2.0) H 4.40 mmol/L (0.66-2.22) H White Blood Count 5.5 K/UL (4.8-10.8) Red Blood Count 2.10 M/UL (4.70-6.10) L Hemoglobin 6.2 G/DL (14.2-18.0) *L Hematocrit 19.7 % (42.0-52.0) L Mean Corpuscular Volume 94 FL (80-99) Mean Corpuscular Hemoglobin 29.6 PG (27.0-31.0) Mean Corpuscular Hemoglobin Concent 31.5 G/DL (32.0-36.0) L Red Cell Distribution Width 15.3 % (11.6-14.8) H Platelet Count 268 K/UL (150-450) Mean Platelet Volume 9.2 FL (6.5-10.1) Neutrophils (%) (Auto) % (45.0-75.0) Lymphocytes (%) (Auto) % (20.0-45.0) Monocytes (%) (Auto) % (1.0-10.0) Eosinophils (%) (Auto) % (0.0-3.0) Basophils (%) (Auto) % (0.0-2.0) Differential Total Cells Counted 100 Neutrophils % (Manual) 67 % (45-75) Lymphocytes % (Manual) 1 % (20-45) L Monocytes % (Manual) 12 % (1-10) H Eosinophils % (Manual) 0 % (0-3) Basophils % (Manual) 0 % (0-2) Band Neutrophils 20 % (0-8) H Platelet Estimate Adequate Platelet Morphology See comment Giant Platelets Occasional Hypochromasia 1+ Anisocytosis 1+ Sodium Level 121 MMOL/L (136-145) L Potassium Level 4.0 MMOL/L (3.5-5.1) Chloride Level 83 MMOL/L (98-107) L Carbon Dioxide Level 16 MMOL/L (21-32) L Anion Gap 22 mmol/L (5-15) H Blood Urea Nitrogen 103 mg/dL (7-18) H Creatinine 6.8 MG/DL (0.55-1.30) H Estimat Glomerular Filtration Rate mL/min (>60) Glucose Level 252 MG/DL (74-106) H Calcium Level 7.0 MG/DL (8.5-10.1) L Total Bilirubin 0.9 MG/DL (0.2-1.0) Aspartate Amino Transf (AST/SGOT) 84 U/L (15-37) H Alanine Aminotransferase (ALT/SGPT) 35 U/L (12-78) Alkaline Phosphatase 107 U/L (46-116) Total Protein 4.5 G/DL (6.4-8.2) L Albumin 1.2 G/DL (3.4-5.0) L Globulin 3.3 g/dL Albumin/Globulin Ratio 0.4 (1.0-2.7) L Random Vancomycin Level 14.6 ug/mL Test 05/24/18 09:50 White Blood Count 4.9 K/UL (4.8-10.8) Red Blood Count 2.01 M/UL (4.70-6.10) L Hemoglobin 5.9 G/DL (14.2-18.0) *L Hematocrit 18.8 % (42.0-52.0) L Mean Corpuscular Volume 93 FL (80-99) Mean Corpuscular Hemoglobin 29.4 PG (27.0-31.0) Mean Corpuscular Hemoglobin Concent 31.6 G/DL (32.0-36.0) L Red Cell Distribution Width 15.6 % (11.6-14.8) H Platelet Count 211 K/UL (150-450) Mean Platelet Volume 8.1 FL (6.5-10.1) Neutrophils (%) (Auto) % (45.0-75.0) Lymphocytes (%) (Auto) % (20.0-45.0) Monocytes (%) (Auto) % (1.0-10.0) Eosinophils (%) (Auto) % (0.0-3.0) Basophils (%) (Auto) % (0.0-2.0) Differential Total Cells Counted 100 Neutrophils % (Manual) 47 % (45-75) Lymphocytes % (Manual) 2 % (20-45) L Monocytes % (Manual) 4 % (1-10) Eosinophils % (Manual) 2 % (0-3) Basophils % (Manual) 0 % (0-2) Metamyelocytes % 1 % (0-0) H Myelocytes % 1 % (0-0) H Band Neutrophils 43 % (0-8) H Nucleated Red Blood Cells 2 /100 WBC Platelet Estimate Adequate Platelet Morphology See comment Giant Platelets Occasional Polychromasia 1+ Hypochromasia 1+ Anisocytosis 1+ Current Medications Medications (Trade) Dose Ordered Sig/Min Route PRN Reason Start Time Stop Time Status Last Admin Dose Admin Acetaminophen (Tylenol) 650 mg Q4H PRN ORAL Mild Pain/Temp > 100.5 05/12/18 15:30 06/09/18 15:29 05/20/18 20:53 Acetaminophen (Tylenol) 650 mg Q4H PRN RECTAL Mild Pain/Temp > 100.5 05/21/18 12:00 06/20/18 11:59 Amiodarone HCl 900 mg/Dextrose 500 ml @ 0 mls/hr Q24H IV 05/23/18 22:30 05/24/18 22:29 05/23/18 23:55 Chlorhexidine Gluconate (Tatyana-Hex 2%) 1 applic DAILY@2000 TOPIC 05/12/18 20:00 06/11/18 19:59 05/23/18 20:20 Dextrose (Dextrose 50%) 25 ml Q30M PRN IV Hypoglycemia 05/16/18 17:30 06/15/18 17:29 Dextrose (Dextrose 50%) 50 ml Q30M PRN IV Hypoglycemia 05/16/18 17:30 06/15/18 17:29 Hydrocortisone (Solu-CORTEF) 100 mg EVERY 8 HOURS IV 05/21/18 22:00 06/20/18 21:59 05/24/18 05:39 Hydromorphone HCl (Dilaudid) 1 mg Q2H PRN IVP Severe Pain (Pain Scale 7-10) 05/24/18 09:45 05/29/18 09:44 Insulin Aspart (NovoLOG) BEFORE MEALS AND HS SUBQ 05/16/18 21:00 06/15/18 20:59 05/24/18 06:11 Lorazepam (Ativan 2mg/ml 1ml) 1 mg Q6H PRN IV For Anxiety 05/19/18 08:15 05/26/18 08:14 05/21/18 12:53 Micafungin Sodium 100 mg/Sodium Chloride 110 ml @ 110 mls/hr Q24H IVPB 05/21/18 12:00 05/28/18 11:59 05/23/18 13:00 Midodrine (Pro-Amatine) 2.5 mg THREE TIMES A DAY PRN ORAL for bp below 100 syst 05/19/18 10:15 06/14/18 12:59 Norepinephrine Bitartrate 8 mg/ Dextrose 500 ml @ 0 mls/hr Q24H IV 05/21/18 14:30 06/20/18 14:29 05/24/18 08:05 Ondansetron HCl (Zofran) 4 mg Q6H PRN IVP Nausea & Vomiting 05/15/18 23:30 06/14/18 23:29 Pantoprazole (Protonix) 40 mg EVERY 12 HOURS IVP 05/12/18 21:00 06/10/18 20:59 05/24/18 08:20 Phenylephrine HCl 50 mg/Dextrose 250 ml @ 0 mls/hr Q24H IV 05/21/18 11:00 06/20/18 10:59 05/21/18 12:45 Piperacillin Sod/ Tazobactam Sod 2.25 gm/Dextrose 55 ml @ 110 mls/hr Q8HR IVPB 05/19/18 12:00 05/28/18 11:59 05/24/18 05:39 Vancomycin HCl (Vanco rx to dose) 1 ea DAILY PRN MISC Per rx protocol 05/22/18 11:45 06/21/18 11:44 Vasopressin 100 units/Sodium Chloride 100 ml @ 0 mls/hr Q24H IV 05/22/18 11:30 06/21/18 11:29 05/23/18 17:47 Romie Hooks MD May 24, 2018 12:22
--- NOTE | 2018-05-24 12:26 | 48 Hour Post Anesthesia Eval ---
Post Anesthesia Evaluation Procedure: Revision of abdominal wound woundvac placement Date of Evaluation: May 24, 2018 Time of Evaluation: 12:24 Blood Pressure Systolic: 128 0: 64 Pulse Rate: 75 Respiratory Rate: 16 Temperature (Fahrenheit): 97.6 O2 Sat by Pulse Oximetry: 98 Airway: other - intubated on vent Nausea: No Vomiting: No Pain Intensity: 0 Hydration Status: adequate Cardiopulmonary Status: on 2 pressors, tendency to hypotension Mental Status/LOC: other - unresponsive sedated Follow-up Care/Observations: n/a Post-Anesthesia Complications: none Follow-up care needed: N/A Jordy Sweeney MD May 24, 2018 12:26
[2018-05-24] MEDS: Micafungin 100 MG in NS 110 ML IVPB SCH (12:39)
--- NOTE | 2018-05-24 13:25 | Cardiac Electrophysiology PN ---
Assessment/Plan Assessment/Plan 1. Atrial fib/flutter with RVR .In SR on Amio drip. Can't switch to po as NPO and unpredictable absorption in view of intestinal surgeries. Last Dig level 1.9 on 05/21/18 but off Dig 2. Chest pain. No OK. EKG showed old inferior and anterior wall OK, but no ischemia. ECHO normal LV function 3. End-stage renal disease, on hemodialysis per Dr. Arroyo. 4. Septic shock, on Levophed today. Off other pressors Dr Chandler reevaluated. 2D Echo EF 60% and PA pressure 63 ? PE. DD 35.2. Unstable for chest CT angio. Started on heparin drip for possible PE Off heparin drip now for surgery today 5. History of kidney stones. 6. History of psychiatric problems, dementia. 7. Hx of lap matthew. S/P SB resection 05/15/18 with drain Has yellowish discharge from incision. On iv Abx per ID S/P redo surgery 05/23/18 that showed Anastomotic leak. Going nack to OR today by DR Chandler for wound closure 8. Respiratory failure, intubated on the vent. SAW RN Subjective Subjective Had abdominal surgery yesterday with wound VAc and found to have anastomosis leak . In ICU on Amiodarone drip 0.5 mg and Levophed drip 30 mcg and off Vasopressin drip. Heparin drip DCed as is scheduled to go back to surgery On the Vent and 60% Fio2. Still draining from incision Objective Last 24 Hour Vital Signs Date Time Temp Pulse Resp B/P (MAP) Pulse Ox O2 Delivery O2 Flow Rate FiO2 05/24/18 13:12 79/15 05/24/18 12:53 97 35 60 05/24/18 12:45 92 25 97/24 (48) 100 05/24/18 12:30 86 28 120/30 (60) 100 05/24/18 12:26 75 16 98 05/24/18 12:15 76 28 99/56 (70) 100 05/24/18 12:00 75 28 136/28 (64) 100 05/24/18 12:00 Mechanical Ventilator Mechanical Ventilator 05/24/18 12:00 55 05/24/18 11:45 78 28 136/28 (64) 100 05/24/18 11:30 91 28 147/23 (64) 100 05/24/18 11:15 96 28 138/30 (66) 100 05/24/18 11:00 80 25 138/45 (76) 100 05/24/18 11:00 84 138/45 05/24/18 10:59 78 32 60 05/24/18 10:45 89 32 138/45 (76) 100 05/24/18 10:30 89 32 110/45 (66) 100 05/24/18 10:15 90 31 115/22 (53) 100 05/24/18 10:00 90 31 108/21 (50) 100 05/24/18 09:45 85 25 100/14 (42) 100 05/24/18 09:34 Endotracheal Tube 55 05/24/18 09:30 84 25 101/19 (46) 100 05/24/18 09:26 77 30 60 05/24/18 09:15 77 25 107/31 (56) 100 05/24/18 09:00 83 25 130/30 (63) 100 05/24/18 08:45 84 25 122/26 (58) 100 05/24/18 08:30 75 25 122/26 (58) 100 05/24/18 08:15 81 25 103/16 (45) 100 05/24/18 08:05 91/17 05/24/18 08:00 80 05/24/18 08:00 55 05/24/18 08:00 Mechanical Ventilator Mechanical Ventilator 05/24/18 08:00 97.9 76 25 91/17 (41) 100 05/24/18 07:45 65 25 110/31 (57) 100 05/24/18 07:30 73 25 157/22 (67) 100 05/24/18 07:15 63 25 110/31 (57) 100 05/24/18 07:00 65 25 97/28 (51) 100 05/24/18 06:44 63 28 60 05/24/18 06:30 70 25 110/31 (57) 100 05/24/18 06:00 72 25 118/31 (60) 100 05/24/18 05:30 72 25 120/31 (60) 100 05/24/18 05:20 80 33 60 05/24/18 05:00 152/31 05/24/18 05:00 69 25 140/31 (67) 100 05/24/18 04:30 70 25 152/31 (71) 100 05/24/18 04:00 Mechanical Ventilator Mechanical Ventilator 05/24/18 04:00 55 05/24/18 04:00 143/27 05/24/18 04:00 98.9 70 29 143/27 (65) 100 05/24/18 03:30 70 29 142/27 (65) 100 05/24/18 03:28 82 33 60 05/24/18 03:00 65 26 118/29 (58) 100 05/24/18 02:45 127/28 05/24/18 02:30 62 26 116/29 (58) 100 05/24/18 02:00 62 26 119/30 (59) 100 05/24/18 01:27 63 25 60 05/24/18 01:00 61 26 103/30 (54) 100 05/24/18 01:00 103/30 05/24/18 00:30 63 25 103/30 (54) 100 05/24/18 00:00 99.0 64 25 108/35 (59) 100 05/24/18 00:00 67 05/24/18 00:00 108/35 05/24/18 00:00 Mechanical Ventilator Mechanical Ventilator 05/24/18 00:00 55 05/23/18 23:53 110/42 05/23/18 23:51 92/18 05/23/18 23:30 65 24 60 05/23/18 23:30 78 22 121/33 (62) 100 05/23/18 23:00 77 22 97/30 (52) 100 05/23/18 23:00 97/30 05/23/18 22:30 65 22 121/33 (62) 100 05/23/18 22:17 110/37 05/23/18 22:00 65 21 110/37 (61) 100 05/23/18 21:30 70 21 140/30 (66) 100 05/23/18 21:29 75 19 60 05/23/18 21:00 65 19 110/29 (56) 100 05/23/18 21:00 123/21 05/23/18 20:30 63 18 118/23 (54) 100 05/23/18 20:00 Mechanical Ventilator Mechanical Ventilator 05/23/18 20:00 55 05/23/18 20:00 110/29 05/23/18 20:00 123/21 05/23/18 20:00 84 05/23/18 20:00 99.4 62 17 123/21 (55) 100 05/23/18 19:06 59 17 60 05/23/18 19:00 59 18 124/25 (58) 100 05/23/18 18:30 58 25 94/25 (48) 100 05/23/18 18:00 57 30 90/25 (46) 100 05/23/18 17:30 62 30 98/30 (52) 100 05/23/18 17:04 65 20 60 05/23/18 17:00 58 30 115/32 (59) 100 05/23/18 16:30 99.0 60 25 108/28 (54) 99 05/23/18 16:13 92/22 05/23/18 16:00 Mechanical Ventilator Mechanical Ventilator 05/23/18 16:00 77 30 110/30 (56) 99 05/23/18 15:36 60 05/23/18 15:15 62 20 100 05/23/18 15:10 66 24 60 Intake and Output 05/23/18 05/24/18 19:00 07:00 Intake Total 1199.18 ml 1138.86 ml Output Total 675 ml 770 ml Balance 524.18 ml 368.86 ml Intake Oral 250 ml IV Total 729.18 ml 1138.86 ml Hemodialysis 200 ml Other 20 ml Output Urine Total 0 ml 0 ml Gastric Drainage Total 250 ml 150 ml Drainage Total 425 ml 620 ml Hemodialysis UF 0 ml # Voids 1 # Bowel Movements 8 6 Laboratory Tests Test 05/23/18 14:05 05/23/18 16:15 05/24/18 05:30 05/24/18 08:20 Activated Partial Thromboplast Time 84 SEC (23-33) H Lactic Acid Level 6.50 mmol/L (0.4-2.0) H 4.30 mmol/L (0.4-2.0) H 4.40 mmol/L (0.66-2.22) H White Blood Count 5.5 K/UL (4.8-10.8) Red Blood Count 2.10 M/UL (4.70-6.10) L Hemoglobin 6.2 G/DL (14.2-18.0) *L Hematocrit 19.7 % (42.0-52.0) L Mean Corpuscular Volume 94 FL (80-99) Mean Corpuscular Hemoglobin 29.6 PG (27.0-31.0) Mean Corpuscular Hemoglobin Concent 31.5 G/DL (32.0-36.0) L Red Cell Distribution Width 15.3 % (11.6-14.8) H Platelet Count 268 K/UL (150-450) Mean Platelet Volume 9.2 FL (6.5-10.1) Neutrophils (%) (Auto) % (45.0-75.0) Lymphocytes (%) (Auto) % (20.0-45.0) Monocytes (%) (Auto) % (1.0-10.0) Eosinophils (%) (Auto) % (0.0-3.0) Basophils (%) (Auto) % (0.0-2.0) Differential Total Cells Counted 100 Neutrophils % (Manual) 67 % (45-75) Lymphocytes % (Manual) 1 % (20-45) L Monocytes % (Manual) 12 % (1-10) H Eosinophils % (Manual) 0 % (0-3) Basophils % (Manual) 0 % (0-2) Band Neutrophils 20 % (0-8) H Platelet Estimate Adequate Platelet Morphology See comment Giant Platelets Occasional Hypochromasia 1+ Anisocytosis 1+ Sodium Level 121 MMOL/L (136-145) L Potassium Level 4.0 MMOL/L (3.5-5.1) Chloride Level 83 MMOL/L (98-107) L Carbon Dioxide Level 16 MMOL/L (21-32) L Anion Gap 22 mmol/L (5-15) H Blood Urea Nitrogen 103 mg/dL (7-18) H Creatinine 6.8 MG/DL (0.55-1.30) H Estimat Glomerular Filtration Rate mL/min (>60) Glucose Level 252 MG/DL (74-106) H Calcium Level 7.0 MG/DL (8.5-10.1) L Total Bilirubin 0.9 MG/DL (0.2-1.0) Aspartate Amino Transf (AST/SGOT) 84 U/L (15-37) H Alanine Aminotransferase (ALT/SGPT) 35 U/L (12-78) Alkaline Phosphatase 107 U/L (46-116) Total Protein 4.5 G/DL (6.4-8.2) L Albumin 1.2 G/DL (3.4-5.0) L Globulin 3.3 g/dL Albumin/Globulin Ratio 0.4 (1.0-2.7) L Random Vancomycin Level 14.6 ug/mL Test 05/24/18 09:50 White Blood Count 4.9 K/UL (4.8-10.8) Red Blood Count 2.01 M/UL (4.70-6.10) L Hemoglobin 5.9 G/DL (14.2-18.0) *L Hematocrit 18.8 % (42.0-52.0) L Mean Corpuscular Volume 93 FL (80-99) Mean Corpuscular Hemoglobin 29.4 PG (27.0-31.0) Mean Corpuscular Hemoglobin Concent 31.6 G/DL (32.0-36.0) L Red Cell Distribution Width 15.6 % (11.6-14.8) H Platelet Count 211 K/UL (150-450) Mean Platelet Volume 8.1 FL (6.5-10.1) Neutrophils (%) (Auto) % (45.0-75.0) Lymphocytes (%) (Auto) % (20.0-45.0) Monocytes (%) (Auto) % (1.0-10.0) Eosinophils (%) (Auto) % (0.0-3.0) Basophils (%) (Auto) % (0.0-2.0) Differential Total Cells Counted 100 Neutrophils % (Manual) 47 % (45-75) Lymphocytes % (Manual) 2 % (20-45) L Monocytes % (Manual) 4 % (1-10) Eosinophils % (Manual) 2 % (0-3) Basophils % (Manual) 0 % (0-2) Metamyelocytes % 1 % (0-0) H Myelocytes % 1 % (0-0) H Band Neutrophils 43 % (0-8) H Nucleated Red Blood Cells 2 /100 WBC Platelet Estimate Adequate Platelet Morphology See comment Giant Platelets Occasional Polychromasia 1+ Hypochromasia 1+ Anisocytosis 1+ Microbiology Date/Time Source Procedure Growth Status 05/22/18 12:00 Abdomen Gram Stain - Final Resulted 05/22/18 12:00 Wound Culture - Preliminary Gram Negative Bacillus 1 Resulted Objective HEENT: Orally intubated Cardiovascular: Sinus tachycardia Respiratory/Chest: Lungs clear, normal breath sounds Abdomen: Post op.with one VELVET drain and incision is now covered with WoundVac Extremities: No edema Right groin dialysis catheter Everett Stephenson MD May 24, 2018 13:25
--- NOTE | 2018-05-24 14:00 | NUR ---
NURSE NOTES: Patient remains no s/sx of distress. SR on monitor while on amiodarone. Was able to titrate down Levophed to 20 mcg/minute but SBP becomes 70s-80s and slowly titrated up back to 30 mcg/minute. Still waiting for procedure update. No s/sx of pain noted.
--- NOTE | 2018-05-24 14:15 | NUR ---
NURSE NOTES: Called surgery and spoke with charge nurse to ask for the planned surgery today. Unable to get specific procedure but she stated that OR team will come and do it at bedside. Informed that family does not have the family to consent at this time and will be needing MD notes for emergency procedure if it will be an invasive procedure.
[2018-05-24] MEDS: HYDROmorphone 1mg/ml Carpuject IVP PRN (16:15)
--- NOTE | 2018-05-24 16:30 | NUR ---
NURSE NOTES: Dr. Chandler arrived also OR team and did bedside set up. Pain medications given prior to procedure as ordered. MD completed procedure and placed wound vac back at 125 mmHg suctioning, new canister in place. Still with the bryan prat on left lower abdomen, drainage serosanguinous drainage. Sponge bath given, repositioning done. Oral care done . Patient still on Levophed at 30 mcg/minute.
--- NOTE | 2018-05-24 16:41 | General Progress Note ---
Assessment/Plan Problem List: (1) Perforated viscus ICD Codes: R19.8 - Other specified symptoms and signs involving the digestive system and abdomen SNOMED: 84010469, 848651077, [id number] (2) ESRD (end stage renal disease) on dialysis ICD Codes: N18.6 - End stage renal disease; Z99.2 - Dependence on renal dialysis SNOMED: 945063160 (3) Shock ICD Codes: R57.9 - Shock, unspecified SNOMED: 73201352 (4) Diabetes mellitus out of control ICD Codes: E11.65 - Type 2 diabetes mellitus with hyperglycemia SNOMED: 16921091, 646922271 Assessment/Plan change BG monitoring and Novolog to every 4 hours add Levemir 6 units bid Subjective ROS Limited/Unobtainable: Yes Allergies: Coded Allergies: No Known Allergies (Unverified , 11/12/12) Subjective intubated in icu on pressors open abd incision with wound vac Objective Last 24 Hour Vital Signs Date Time Temp Pulse Resp B/P (MAP) Pulse Ox O2 Delivery O2 Flow Rate FiO2 05/24/18 16:00 Mechanical Ventilator Mechanical Ventilator 05/24/18 16:00 55 05/24/18 16:00 84 25 181/42 (88) 100 89 05/24/18 15:30 72 25 129/35 (66) 100 89 05/24/18 15:15 78 25 125/38 (67) 100 89 05/24/18 15:00 81 25 121/30 (60) 100 89 05/24/18 14:45 80 25 80/29 (46) 100 89 05/24/18 14:41 73 25 60 05/24/18 14:30 75 25 191/39 (89) 100 89 05/24/18 14:15 91 25 175/39 (84) 100 89 05/24/18 14:00 191/39 05/24/18 14:00 92 25 191/39 (89) 100 89 05/24/18 13:45 92 25 115/31 (59) 100 73 05/24/18 13:30 92 25 99/18 (45) 100 75 05/24/18 13:15 92 25 101/18 (45) 100 89 05/24/18 13:12 79/15 05/24/18 13:00 97 25 97/24 (48) 100 05/24/18 13:00 79/15 05/24/18 12:53 97 35 60 05/24/18 12:45 92 25 97/24 (48) 100 05/24/18 12:30 86 28 120/30 (60) 100 05/24/18 12:26 75 16 98 05/24/18 12:15 76 28 99/56 (70) 100 05/24/18 12:00 75 28 136/28 (64) 100 05/24/18 12:00 98.4 05/24/18 12:00 Mechanical Ventilator Mechanical Ventilator 05/24/18 12:00 55 05/24/18 12:00 136/28 05/24/18 11:45 78 28 136/28 (64) 100 05/24/18 11:30 91 28 147/23 (64) 100 05/24/18 11:15 96 28 138/30 (66) 100 05/24/18 11:00 80 25 138/45 (76) 100 05/24/18 11:00 138/30 05/24/18 11:00 84 138/45 05/24/18 10:59 78 32 60 05/24/18 10:45 89 32 138/45 (76) 100 05/24/18 10:30 89 32 110/45 (66) 100 05/24/18 10:15 90 31 115/22 (53) 100 05/24/18 10:00 90 31 108/21 (50) 100 05/24/18 10:00 108/21 05/24/18 09:45 85 25 100/14 (42) 100 05/24/18 09:34 Endotracheal Tube 55 05/24/18 09:30 84 25 101/19 (46) 100 05/24/18 09:26 77 30 60 05/24/18 09:15 77 25 107/31 (56) 100 05/24/18 09:00 83 25 130/30 (63) 100 05/24/18 09:00 136/26 05/24/18 08:45 84 25 122/26 (58) 100 05/24/18 08:30 75 25 122/26 (58) 100 05/24/18 08:15 81 25 103/16 (45) 100 05/24/18 08:05 91/17 05/24/18 08:00 80 05/24/18 08:00 55 05/24/18 08:00 Mechanical Ventilator Mechanical Ventilator 05/24/18 08:00 97.9 76 25 91/17 (41) 100 05/24/18 07:45 65 25 110/31 (57) 100 05/24/18 07:30 73 25 157/22 (67) 100 05/24/18 07:15 63 25 110/31 (57) 100 05/24/18 07:00 91/17 05/24/18 07:00 65 25 97/28 (51) 100 05/24/18 06:44 63 28 60 05/24/18 06:30 70 25 110/31 (57) 100 05/24/18 06:00 72 25 118/31 (60) 100 05/24/18 05:30 72 25 120/31 (60) 100 05/24/18 05:20 80 33 60 05/24/18 05:00 152/31 05/24/18 05:00 69 25 140/31 (67) 100 05/24/18 04:30 70 25 152/31 (71) 100 05/24/18 04:00 Mechanical Ventilator Mechanical Ventilator 05/24/18 04:00 55 05/24/18 04:00 143/27 05/24/18 04:00 98.9 70 29 143/27 (65) 100 05/24/18 03:30 70 29 142/27 (65) 100 05/24/18 03:28 82 33 60 05/24/18 03:00 65 26 118/29 (58) 100 05/24/18 02:45 127/28 05/24/18 02:30 62 26 116/29 (58) 100 05/24/18 02:00 62 26 119/30 (59) 100 05/24/18 01:27 63 25 60 05/24/18 01:00 61 26 103/30 (54) 100 05/24/18 01:00 103/30 05/24/18 00:30 63 25 103/30 (54) 100 05/24/18 00:00 99.0 64 25 108/35 (59) 100 05/24/18 00:00 67 05/24/18 00:00 108/35 05/24/18 00:00 Mechanical Ventilator Mechanical Ventilator 05/24/18 00:00 55 05/23/18 23:53 110/42 05/23/18 23:51 92/18 05/23/18 23:30 65 24 60 05/23/18 23:30 78 22 121/33 (62) 100 05/23/18 23:00 77 22 97/30 (52) 100 05/23/18 23:00 97/30 05/23/18 22:30 65 22 121/33 (62) 100 05/23/18 22:17 110/37 05/23/18 22:00 65 21 110/37 (61) 100 05/23/18 21:30 70 21 140/30 (66) 100 05/23/18 21:29 75 19 60 05/23/18 21:00 65 19 110/29 (56) 100 05/23/18 21:00 123/21 05/23/18 20:30 63 18 118/23 (54) 100 05/23/18 20:00 Mechanical Ventilator Mechanical Ventilator 05/23/18 20:00 55 05/23/18 20:00 110/29 05/23/18 20:00 123/21 05/23/18 20:00 84 05/23/18 20:00 99.4 62 17 123/21 (55) 100 05/23/18 19:06 59 17 60 05/23/18 19:00 59 18 124/25 (58) 100 05/23/18 18:30 58 25 94/25 (48) 100 05/23/18 18:00 57 30 90/25 (46) 100 05/23/18 17:30 62 30 98/30 (52) 100 05/23/18 17:04 65 20 60 05/23/18 17:00 58 30 115/32 (59) 100 Intake and Output 05/23/18 05/24/18 19:00 07:00 Intake Total 1199.18 ml 1325.42 ml Output Total 675 ml 770 ml Balance 524.18 ml 555.42 ml Intake Oral 250 ml IV Total 729.18 ml 1325.42 ml Hemodialysis 200 ml Other 20 ml Output Urine Total 0 ml 0 ml Gastric Drainage Total 250 ml 150 ml Drainage Total 425 ml 620 ml Hemodialysis UF 0 ml # Voids 1 # Bowel Movements 8 6 Laboratory Tests 05/24/18 05:30: White Blood Count 5.5, Red Blood Count 2.10L, Hemoglobin 6.2*L, Hematocrit 19.7L , Mean Corpuscular Volume 94, Mean Corpuscular Hemoglobin 29.6, Mean Corpuscular Hemoglobin Concent 31.5L, Red Cell Distribution Width 15.3H, Platelet Count 268, Mean Platelet Volume 9.2, Neutrophils (%) (Auto) , Lymphocytes (%) (Auto) , Monocytes (%) (Auto) , Eosinophils (%) (Auto) , Basophils (%) (Auto) , Differential Total Cells Counted 100, Neutrophils % ( Manual) 67, Lymphocytes % (Manual) 1L, Monocytes % (Manual) 12H, Eosinophils % ( Manual) 0, Basophils % (Manual) 0, Band Neutrophils 20H, Platelet Estimate Adequate, Platelet Morphology See comment, Giant Platelets Occasional, Hypochromasia 1+, Anisocytosis 1+, Sodium Level 121L, Potassium Level 4.0, Chloride Level 83L, Carbon Dioxide Level 16L, Anion Gap 22H, Blood Urea Nitrogen 103H, Creatinine 6.8H, Estimat Glomerular Filtration Rate , Glucose Level 252H, Lactic Acid Level 4.30H, Calcium Level 7.0L, Total Bilirubin 0.9, Aspartate Amino Transf (AST/SGOT) 84H, Alanine Aminotransferase (ALT/SGPT) 35, Alkaline Phosphatase 107, Total Protein 4.5L, Albumin 1.2L, Globulin 3.3, Albumin/Globulin Ratio 0.4L, Random Vancomycin Level 14.6 05/24/18 08:20: Lactic Acid Level 4.40H 05/24/18 09:50: White Blood Count 4.9, Red Blood Count 2.01L, Hemoglobin 5.9*L, Hematocrit 18.8L , Mean Corpuscular Volume 93, Mean Corpuscular Hemoglobin 29.4, Mean Corpuscular Hemoglobin Concent 31.6L, Red Cell Distribution Width 15.6H, Platelet Count 211, Mean Platelet Volume 8.1, Neutrophils (%) (Auto) , Lymphocytes (%) (Auto) , Monocytes (%) (Auto) , Eosinophils (%) (Auto) , Basophils (%) (Auto) , Differential Total Cells Counted 100, Neutrophils % ( Manual) 47, Lymphocytes % (Manual) 2L, Monocytes % (Manual) 4, Eosinophils % ( Manual) 2, Basophils % (Manual) 0, Band Neutrophils 43H, Platelet Estimate Adequate, Platelet Morphology See comment, Giant Platelets Occasional, Hypochromasia 1+, Anisocytosis 1+, Metamyelocytes % 1H, Myelocytes % 1H, Nucleated Red Blood Cells 2, Polychromasia 1+ Height (Feet): 5 Height (Inches): 4.00 Weight (Pounds): 190 General Appearance: other - intubated EENT: other Neck: normal alignment Cardiovascular: tachycardia Respiratory/Chest: decreased breath sounds Abdomen: hypoactive bowel sounds, other - wound vac Pelvis: normal external exam Edema: 1+ Arm (L), 1+ Arm (R), 1+ Leg (L), 1+ Leg (R), 1+ Pedal (L), 1+ Pedal ( R), 1+ Generalized Rashad Koenig MD May 24, 2018 16:41
--- NOTE | 2018-05-24 17:00 | General Progress Note ---
Progress Note Progress Note Surgery Hb 5.9 on pressors. hypotensive septic too unstable to return to OR today bedside Abthera wound vac change performed. transfuse prbc HD can return to OR once more stable. thank you Tomas Chandler May 24, 2018 17:00
--- NOTE | 2018-05-24 17:04 | Pulmonolgy Critical Care Note ---
Critical Care - Asmt/Plan Problems: (1) Shock (2) Hypoxemia (3) Elevated d-dimer Assessment & Plan: S/P neg CT-A + UE DVT (4) Hypotension (5) Atrial fibrillation (6) ESRD (end stage renal disease) on dialysis (7) ACS (acute coronary syndrome) (8) Sacral decubitus ulcer, stage III (9) S/P cholecystectomy (10) Serratia sepsis (11) S/P exploratory laparotomy (12) Perforated viscus Assessment/Plan: -Continue Vaso 0.04, titrate NE for MAP > 60 -Continue ventilatory support/settings reviewed -Titrate down FiO2 to keep SaO2 > 90%, continue PEEP 5 -HD per renal as able -Amio gtt per cards/EPS, off Dilt -IVUH held -Monitor CBC, transfuse as needed -Monitor for bleeding -Arabella and Zosyn per ID, F/U Cx's -Taper stress dose steroids -FC D/W Dr. Chandler - D/W RN and RT CCT 45 Critical Care - Objective Last 24 Hour Vital Signs Date Time Temp Pulse Resp B/P (MAP) Pulse Ox O2 Delivery O2 Flow Rate FiO2 05/24/18 16:00 Mechanical Ventilator Mechanical Ventilator 05/24/18 16:00 55 05/24/18 16:00 84 25 181/42 (88) 100 89 05/24/18 15:30 72 25 129/35 (66) 100 89 05/24/18 15:15 78 25 125/38 (67) 100 89 05/24/18 15:00 81 25 121/30 (60) 100 89 05/24/18 14:45 80 25 80/29 (46) 100 89 05/24/18 14:41 73 25 60 05/24/18 14:30 75 25 191/39 (89) 100 89 05/24/18 14:15 91 25 175/39 (84) 100 89 05/24/18 14:00 191/39 05/24/18 14:00 92 25 191/39 (89) 100 89 05/24/18 13:45 92 25 115/31 (59) 100 73 05/24/18 13:30 92 25 99/18 (45) 100 75 05/24/18 13:15 92 25 101/18 (45) 100 89 05/24/18 13:12 79/15 05/24/18 13:00 97 25 97/24 (48) 100 05/24/18 13:00 79/15 05/24/18 12:53 97 35 60 05/24/18 12:45 92 25 97/24 (48) 100 05/24/18 12:30 86 28 120/30 (60) 100 05/24/18 12:26 75 16 98 05/24/18 12:15 76 28 99/56 (70) 100 05/24/18 12:00 75 28 136/28 (64) 100 05/24/18 12:00 98.4 05/24/18 12:00 Mechanical Ventilator Mechanical Ventilator 05/24/18 12:00 55 05/24/18 12:00 136/28 05/24/18 11:45 78 28 136/28 (64) 100 05/24/18 11:30 91 28 147/23 (64) 100 05/24/18 11:15 96 28 138/30 (66) 100 05/24/18 11:00 80 25 138/45 (76) 100 05/24/18 11:00 138/30 05/24/18 11:00 84 138/45 05/24/18 10:59 78 32 60 05/24/18 10:45 89 32 138/45 (76) 100 05/24/18 10:30 89 32 110/45 (66) 100 05/24/18 10:15 90 31 115/22 (53) 100 05/24/18 10:00 90 31 108/21 (50) 100 05/24/18 10:00 108/21 05/24/18 09:45 85 25 100/14 (42) 100 05/24/18 09:34 Endotracheal Tube 55 05/24/18 09:30 84 25 101/19 (46) 100 05/24/18 09:26 77 30 60 05/24/18 09:15 77 25 107/31 (56) 100 05/24/18 09:00 83 25 130/30 (63) 100 05/24/18 09:00 136/26 05/24/18 08:45 84 25 122/26 (58) 100 05/24/18 08:30 75 25 122/26 (58) 100 05/24/18 08:15 81 25 103/16 (45) 100 05/24/18 08:05 91/17 4/19 08:00 80 05/24/18 08:00 55 05/24/18 08:00 Mechanical Ventilator Mechanical Ventilator 05/24/18 08:00 97.9 76 25 91/17 (41) 100 05/24/18 07:45 65 25 110/31 (57) 100 05/24/18 07:30 73 25 157/22 (67) 100 05/24/18 07:15 63 25 110/31 (57) 100 05/24/18 07:00 91/17 05/24/18 07:00 65 25 97/28 (51) 100 05/24/18 06:44 63 28 60 05/24/18 06:30 70 25 110/31 (57) 100 05/24/18 06:00 72 25 118/31 (60) 100 05/24/18 05:30 72 25 120/31 (60) 100 05/24/18 05:20 80 33 60 05/24/18 05:00 152/31 05/24/18 05:00 69 25 140/31 (67) 100 05/24/18 04:30 70 25 152/31 (71) 100 05/24/18 04:00 Mechanical Ventilator Mechanical Ventilator 05/24/18 04:00 55 05/24/18 04:00 143/27 05/24/18 04:00 98.9 70 29 143/27 (65) 100 05/24/18 03:30 70 29 142/27 (65) 100 05/24/18 03:28 82 33 60 05/24/18 03:00 65 26 118/29 (58) 100 05/24/18 02:45 127/28 05/24/18 02:30 62 26 116/29 (58) 100 05/24/18 02:00 62 26 119/30 (59) 100 05/24/18 01:27 63 25 60 05/24/18 01:00 61 26 103/30 (54) 100 05/24/18 01:00 103/30 05/24/18 00:30 63 25 103/30 (54) 100 05/24/18 00:00 99.0 64 25 108/35 (59) 100 05/24/18 00:00 67 05/24/18 00:00 108/35 05/24/18 00:00 Mechanical Ventilator Mechanical Ventilator 05/24/18 00:00 55 05/23/18 23:53 110/42 05/23/18 23:51 92/18 05/23/18 23:30 65 24 60 05/23/18 23:30 78 22 121/33 (62) 100 05/23/18 23:00 77 22 97/30 (52) 100 05/23/18 23:00 97/30 05/23/18 22:30 65 22 121/33 (62) 100 05/23/18 22:17 110/37 05/23/18 22:00 65 21 110/37 (61) 100 05/23/18 21:30 70 21 140/30 (66) 100 05/23/18 21:29 75 19 60 05/23/18 21:00 65 19 110/29 (56) 100 05/23/18 21:00 123/21 05/23/18 20:30 63 18 118/23 (54) 100 05/23/18 20:00 Mechanical Ventilator Mechanical Ventilator 05/23/18 20:00 55 05/23/18 20:00 110/29 05/23/18 20:00 123/21 05/23/18 20:00 84 05/23/18 20:00 99.4 62 17 123/21 (55) 100 05/23/18 19:06 59 17 60 05/23/18 19:00 59 18 124/25 (58) 100 05/23/18 18:30 58 25 94/25 (48) 100 05/23/18 18:00 57 30 90/25 (46) 100 05/23/18 17:30 62 30 98/30 (52) 100 05/23/18 17:04 65 20 60 Status: obtunded Condition: critical HEENT: atraumatic, normocephalic Heart: HR/BP unstable Abdomen: other - open dressed hyppoactive drains Extremities: no C/C/E Decubiti: location - sacral Micro: Microbiology Date/Time Source Procedure Growth Status 05/22/18 12:00 Abdomen Gram Stain - Final Resulted 05/22/18 12:00 Wound Culture - Preliminary Gram Negative Bacillus 1 Resulted Accucheck: 252 Blood Sugars: BS not controlled Critical Care - Subjective ROS Limited/Unobtainable: Yes ICU Day: 10 Intubation Day: 7 Interval Events: Take to OR with anastamotic leak, back with open abdomen No UO, S/P HD - 500, Hb 5.9, LA FiO2 60 NE 30, Vaso 0.04. Amio gtt, off IVUH Condition: critical IV Access: central EKG Rhythm: Sinus Rhythm FI02: 55 Vent Support Breath Rate: 16 Vent Support Mode: AC Vent Tidal Volume: 500 Sputum Amount: None PEEP: 5.0 PIP: 22 Secretions: None Fluids: SLIV Drips: NE 30 Vaso 0.04 Amio Tube Feeding Amount: 0 I&O: Intake and Output 05/23/18 05/24/18 19:00 07:00 Intake Total 1199.18 ml 1325.42 ml Output Total 675 ml 770 ml Balance 524.18 ml 555.42 ml Intake Oral 250 ml IV Total 729.18 ml 1325.42 ml Hemodialysis 200 ml Other 20 ml Output Urine Total 0 ml 0 ml Gastric Drainage Total 250 ml 150 ml Drainage Total 425 ml 620 ml Hemodialysis UF 0 ml # Voids 1 # Bowel Movements 8 6 Subjective: CROW ET-Tube: 8.5 ET Position: 24 Labs: Laboratory Tests Test 05/24/18 05:30 05/24/18 08:20 05/24/18 09:50 White Blood Count 5.5 K/UL (4.8-10.8) 4.9 K/UL (4.8-10.8) Red Blood Count 2.10 M/UL (4.70-6.10) L 2.01 M/UL (4.70-6.10) L Hemoglobin 6.2 G/DL (14.2-18.0) *L 5.9 G/DL (14.2-18.0) *L Hematocrit 19.7 % (42.0-52.0) L 18.8 % (42.0-52.0) L Mean Corpuscular Volume 94 FL (80-99) 93 FL (80-99) Mean Corpuscular Hemoglobin 29.6 PG (27.0-31.0) 29.4 PG (27.0-31.0) Mean Corpuscular Hemoglobin Concent 31.5 G/DL (32.0-36.0) L 31.6 G/DL (32.0-36.0) L Red Cell Distribution Width 15.3 % (11.6-14.8) H 15.6 % (11.6-14.8) H Platelet Count 268 K/UL (150-450) 211 K/UL (150-450) Mean Platelet Volume 9.2 FL (6.5-10.1) 8.1 FL (6.5-10.1) Neutrophils (%) (Auto) % (45.0-75.0) % (45.0-75.0) Lymphocytes (%) (Auto) % (20.0-45.0) % (20.0-45.0) Monocytes (%) (Auto) % (1.0-10.0) % (1.0-10.0) Eosinophils (%) (Auto) % (0.0-3.0) % (0.0-3.0) Basophils (%) (Auto) % (0.0-2.0) % (0.0-2.0) Differential Total Cells Counted 100 100 Neutrophils % (Manual) 67 % (45-75) 47 % (45-75) Lymphocytes % (Manual) 1 % (20-45) L 2 % (20-45) L Monocytes % (Manual) 12 % (1-10) H 4 % (1-10) Eosinophils % (Manual) 0 % (0-3) 2 % (0-3) Basophils % (Manual) 0 % (0-2) 0 % (0-2) Band Neutrophils 20 % (0-8) H 43 % (0-8) H Platelet Estimate Adequate Adequate Platelet Morphology See comment See comment Giant Platelets Occasional Occasional Hypochromasia 1+ 1+ Anisocytosis 1+ 1+ Sodium Level 121 MMOL/L (136-145) L Potassium Level 4.0 MMOL/L (3.5-5.1) Chloride Level 83 MMOL/L (98-107) L Carbon Dioxide Level 16 MMOL/L (21-32) L Anion Gap 22 mmol/L (5-15) H Blood Urea Nitrogen 103 mg/dL (7-18) H Creatinine 6.8 MG/DL (0.55-1.30) H Estimat Glomerular Filtration Rate mL/min (>60) Glucose Level 252 MG/DL (74-106) H Lactic Acid Level 4.30 mmol/L (0.4-2.0) H 4.40 mmol/L (0.66-2.22) H Calcium Level 7.0 MG/DL (8.5-10.1) L Total Bilirubin 0.9 MG/DL (0.2-1.0) Aspartate Amino Transf (AST/SGOT) 84 U/L (15-37) H Alanine Aminotransferase (ALT/SGPT) 35 U/L (12-78) Alkaline Phosphatase 107 U/L (46-116) Total Protein 4.5 G/DL (6.4-8.2) L Albumin 1.2 G/DL (3.4-5.0) L Globulin 3.3 g/dL Albumin/Globulin Ratio 0.4 (1.0-2.7) L Random Vancomycin Level 14.6 ug/mL Metamyelocytes % 1 % (0-0) H Myelocytes % 1 % (0-0) H Nucleated Red Blood Cells 2 /100 WBC Polychromasia 1+ Daryl Jones MD May 24, 2018 17:04
--- NOTE | 2018-05-24 18:00 | NUR ---
CASE MANAGEMENT: REVIEW SI: ESRD ON HD . ACS . A-FIB RIGHT FEMORAL TEMPORARY HEMODIALYSIS CATHETER INSERTION 05/13 T 98.8 HR 84 RR 25 BP 181/42 SAT 100% MECH VENT FIO2 55 H/H 5.9/18.8 LACTIC ACID 4.40 IS: HEPARIN IV GTT AMIODARONE IV Q24HR VASOPRESSIN IV Q24HR SOLU CORTEF IV Q8HR LEVOPHED IV Q24HR MICAFUNGIN IV Q24HR HD PRN TRANSFUSION PRBC ICU STATUS DCP: PATIENT IS FROM HOME
[2018-05-24] MEDS: Levemir Flexpen SUBQ SCH (18:20)
--- NOTE | 2018-05-24 18:24 | NUR ---
NURSE NOTES: Dr. Chandler ordered to transfuse another 2 units of PRBC to transfuse a total of 4 units. Started transfusion. Patient afebrile, no s/sx of distress. Still on Levophed at 30 mcg/minute.
--- NOTE | 2018-05-24 18:39 | NUR ---
NURSE NOTES: On going transfusion of PRBC, no s/sx of transfusion reaction during the first 15 minutes of starting transfusion. Seen on rounds by Dr. Jain and made aware of the recommendation of Dr. Jesusita Hooks to start TPN. Dr. Jain stated he will communicate with Dr. Arroyo and will plan to start TPN tomorrow.
--- NOTE | 2018-05-24 19:10 | General Progress Note ---
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 Objective Last 24 Hour Vital Signs Date Time Temp Pulse Resp B/P (MAP) Pulse Ox O2 Delivery O2 Flow Rate FiO2 05/24/18 19:00 71 23 148/36 (73) 100 05/24/18 18:45 68 23 131/34 (66) 100 05/24/18 18:30 69 23 135/30 (65) 100 05/24/18 18:15 71 23 126/37 (66) 100 05/24/18 18:05 81/24 05/24/18 18:00 98.9 72 23 119/37 (64) 100 05/24/18 18:00 119/37 05/24/18 17:45 73 23 81/24 (43) 100 05/24/18 17:30 73 23 119/33 (61) 100 05/24/18 17:15 75 23 118/42 (67) 100 05/24/18 17:10 75 26 60 05/24/18 17:00 119/33 05/24/18 17:00 75 24 114/33 (60) 100 05/24/18 16:45 75 24 114/33 (60) 100 05/24/18 16:30 79 23 123/31 (61) 100 05/24/18 16:15 98.8 79 23 105/35 (58) 100 05/24/18 16:00 Mechanical Ventilator Mechanical Ventilator 05/24/18 16:00 55 05/24/18 16:00 84 25 181/42 (88) 100 05/24/18 16:00 181/42 05/24/18 16:00 100 05/24/18 15:30 72 25 129/35 (66) 100 05/24/18 15:15 78 25 125/38 (67) 100 05/24/18 15:00 114/40 05/24/18 15:00 81 25 121/30 (60) 100 05/24/18 14:45 80 25 80/29 (46) 100 05/24/18 14:41 73 25 60 05/24/18 14:30 75 25 191/39 (89) 100 05/24/18 14:15 91 25 175/39 (84) 100 05/24/18 14:00 191/39 05/24/18 14:00 92 25 191/39 (89) 100 05/24/18 13:45 92 25 115/31 (59) 100 05/24/18 13:30 92 25 99/18 (45) 100 75 05/24/18 13:15 92 25 101/18 (45) 100 89 05/24/18 13:12 79/15 05/24/18 13:00 97 25 97/24 (48) 100 05/24/18 13:00 79/15 05/24/18 12:53 97 35 60 05/24/18 12:45 92 25 97/24 (48) 100 05/24/18 12:30 86 28 120/30 (60) 100 05/24/18 12:26 75 16 98 05/24/18 12:15 76 28 99/56 (70) 100 05/24/18 12:00 73 05/24/18 12:00 75 28 136/28 (64) 100 05/24/18 12:00 98.4 05/24/18 12:00 Mechanical Ventilator Mechanical Ventilator 05/24/18 12:00 55 05/24/18 12:00 136/28 05/24/18 11:45 78 28 136/28 (64) 100 05/24/18 11:30 91 28 147/23 (64) 100 05/24/18 11:15 96 28 138/30 (66) 100 05/24/18 11:00 80 25 138/45 (76) 100 05/24/18 11:00 138/30 05/24/18 11:00 84 138/45 05/24/18 10:59 78 32 60 05/24/18 10:45 89 32 138/45 (76) 100 05/24/18 10:30 89 32 110/45 (66) 100 05/24/18 10:15 90 31 115/22 (53) 100 05/24/18 10:00 90 31 108/21 (50) 100 05/24/18 10:00 108/21 05/24/18 09:45 85 25 100/14 (42) 100 05/24/18 09:34 Endotracheal Tube 55 05/24/18 09:30 84 25 101/19 (46) 100 05/24/18 09:26 77 30 60 05/24/18 09:15 77 25 107/31 (56) 100 05/24/18 09:00 83 25 130/30 (63) 100 05/24/18 09:00 136/26 05/24/18 08:45 84 25 122/26 (58) 100 05/24/18 08:30 75 25 122/26 (58) 100 05/24/18 08:15 81 25 103/16 (45) 100 05/24/18 08:05 91/17 05/24/18 08:00 80 05/24/18 08:00 55 05/24/18 08:00 Mechanical Ventilator Mechanical Ventilator 05/24/18 08:00 97.9 76 25 91/17 (41) 100 05/24/18 07:45 65 25 110/31 (57) 100 05/24/18 07:30 73 25 157/22 (67) 100 05/24/18 07:15 63 25 110/31 (57) 100 05/24/18 07:00 91/17 05/24/18 07:00 65 25 97/28 (51) 100 05/24/18 06:44 63 28 60 05/24/18 06:30 70 25 110/31 (57) 100 05/24/18 06:00 72 25 118/31 (60) 100 05/24/18 05:30 72 25 120/31 (60) 100 05/24/18 05:20 80 33 60 05/24/18 05:00 152/31 05/24/18 05:00 69 25 140/31 (67) 100 05/24/18 04:30 70 25 152/31 (71) 100 05/24/18 04:00 Mechanical Ventilator Mechanical Ventilator 05/24/18 04:00 55 05/24/18 04:00 143/27 05/24/18 04:00 98.9 70 29 143/27 (65) 100 05/24/18 03:30 70 29 142/27 (65) 100 05/24/18 03:28 82 33 60 05/24/18 03:00 65 26 118/29 (58) 100 05/24/18 02:45 127/28 05/24/18 02:30 62 26 116/29 (58) 100 05/24/18 02:00 62 26 119/30 (59) 100 05/24/18 01:27 63 25 60 05/24/18 01:00 61 26 103/30 (54) 100 05/24/18 01:00 103/30 05/24/18 00:30 63 25 103/30 (54) 100 05/24/18 00:00 99.0 64 25 108/35 (59) 100 05/24/18 00:00 67 05/24/18 00:00 108/35 05/24/18 00:00 Mechanical Ventilator Mechanical Ventilator 05/24/18 00:00 55 05/23/18 23:53 110/42 05/23/18 23:51 92/18 05/23/18 23:30 65 24 60 05/23/18 23:30 78 22 121/33 (62) 100 05/23/18 23:00 77 22 97/30 (52) 100 05/23/18 23:00 97/30 05/23/18 22:30 65 22 121/33 (62) 100 05/23/18 22:17 110/37 05/23/18 22:00 65 21 110/37 (61) 100 05/23/18 21:30 70 21 140/30 (66) 100 05/23/18 21:29 75 19 60 05/23/18 21:00 65 19 110/29 (56) 100 05/23/18 21:00 123/21 05/23/18 20:30 63 18 118/23 (54) 100 05/23/18 20:00 Mechanical Ventilator Mechanical Ventilator 05/23/18 20:00 55 05/23/18 20:00 110/29 05/23/18 20:00 123/21 05/23/18 20:00 84 05/23/18 20:00 99.4 62 17 123/21 (55) 100 Intake and Output 05/23/18 05/24/18 19:00 07:00 Intake Total 1199.18 ml 1325.42 ml Output Total 675 ml 770 ml Balance 524.18 ml 555.42 ml Intake Oral 250 ml IV Total 729.18 ml 1325.42 ml Hemodialysis 200 ml Other 20 ml Output Urine Total 0 ml 0 ml Gastric Drainage Total 250 ml 150 ml Drainage Total 425 ml 620 ml Hemodialysis UF 0 ml # Voids 1 # Bowel Movements 8 6 Laboratory Tests 05/24/18 05:30: White Blood Count 5.5, Red Blood Count 2.10L, Hemoglobin 6.2*L, Hematocrit 19.7L , Mean Corpuscular Volume 94, Mean Corpuscular Hemoglobin 29.6, Mean Corpuscular Hemoglobin Concent 31.5L, Red Cell Distribution Width 15.3H, Platelet Count 268, Mean Platelet Volume 9.2, Neutrophils (%) (Auto) , Lymphocytes (%) (Auto) , Monocytes (%) (Auto) , Eosinophils (%) (Auto) , Basophils (%) (Auto) , Differential Total Cells Counted 100, Neutrophils % ( Manual) 67, Lymphocytes % (Manual) 1L, Monocytes % (Manual) 12H, Eosinophils % ( Manual) 0, Basophils % (Manual) 0, Band Neutrophils 20H, Platelet Estimate Adequate, Platelet Morphology See comment, Giant Platelets Occasional, Hypochromasia 1+, Anisocytosis 1+, Sodium Level 121L, Potassium Level 4.0, Chloride Level 83L, Carbon Dioxide Level 16L, Anion Gap 22H, Blood Urea Nitrogen 103H, Creatinine 6.8H, Estimat Glomerular Filtration Rate , Glucose Level 252H, Lactic Acid Level 4.30H, Calcium Level 7.0L, Total Bilirubin 0.9, Aspartate Amino Transf (AST/SGOT) 84H, Alanine Aminotransferase (ALT/SGPT) 35, Alkaline Phosphatase 107, Total Protein 4.5L, Albumin 1.2L, Globulin 3.3, Albumin/Globulin Ratio 0.4L, Random Vancomycin Level 14.6 05/24/18 08:20: Lactic Acid Level 4.40H 05/24/18 09:50: White Blood Count 4.9, Red Blood Count 2.01L, Hemoglobin 5.9*L, Hematocrit 18.8L , Mean Corpuscular Volume 93, Mean Corpuscular Hemoglobin 29.4, Mean Corpuscular Hemoglobin Concent 31.6L, Red Cell Distribution Width 15.6H, Platelet Count 211, Mean Platelet Volume 8.1, Neutrophils (%) (Auto) , Lymphocytes (%) (Auto) , Monocytes (%) (Auto) , Eosinophils (%) (Auto) , Basophils (%) (Auto) , Differential Total Cells Counted 100, Neutrophils % ( Manual) 47, Lymphocytes % (Manual) 2L, Monocytes % (Manual) 4, Eosinophils % ( Manual) 2, Basophils % (Manual) 0, Band Neutrophils 43H, Platelet Estimate Adequate, Platelet Morphology See comment, Giant Platelets Occasional, Hypochromasia 1+, Anisocytosis 1+, Metamyelocytes % 1H, Myelocytes % 1H, Nucleated Red Blood Cells 2, Polychromasia 1+ Height (Feet): 5 Height (Inches): 4.00 Weight (Pounds): 190 Objective Intubated NCAT ETT / OGT Supple Coarse BS RR abd more flat, (+) large central wound vac --> light bilious no edema Lisa Jain MD May 24, 2018 19:10
--- NOTE | 2018-05-24 19:24 | NUR ---
HAND-OFF: Report given to Zenobia Maguire RN. Ongoing BT of PRBC. Currently on Levophed at 24 mcg/minute.
--- NOTE | 2018-05-24 19:30 | NUR ---
NURSE NOTES:Received pt appeared fatigue but arouasble to verbal stimuli, SR on the monitor, Levophed drip decrease to 20mcg/min bp 128/29. Pt also on amiodarone drip at 0.5mg/min, pts also has the 3rd unit PRBC on progress. No reactions noted. Abdominal wound has wound VAC to suction draining reddish brownish drainage moderate in amt. OGT to low suction woth minimal amt. of greenish drainage.Pt is a Hd pt with felice cath RT femoral site with drsg dry and intact. Pts with 2-3+ edema to his extremities and has DTI Rt buttocks as well as Blisters in various places on his abdomen. Mds are aware. Will continue to monitor.
[2018-05-24] MEDS: Dyna-Hex 2% Top Sol 2oz TOPIC SCH (20:20)
--- NOTE | 2018-05-24 21:25 | NUR ---
NURSE NOTES:#rd unit PRBC was finished.No reactions noted.
--- NOTE | 2018-05-24 22:22 | General Progress Note ---
Assessment/Plan Assessment/Plan # Anemia of chronic disease due to underlying chronic medical issues, multifactorial --> Anemia w/u has been reviewed, reordered and ferritin is >2000 --> Monitor for stability --> trend 10.3-->7.6-->8.9-->10.3-->9.5 --> not bleeding currently # Small bowel perforation, s/p bowel resection, with Gram negative sepsis is on abx In ICU s/p Small bowel resection --> on broad spectrum abx --> on vanc/cefepime as per id--> now changed to zosyn, flagyl, micafungin --> s/p sb resection on 05/15, appreciate surg recs --> on 2 pressors as well,++ vent --> to OR on 05/23, surgeon to access # Hypofibrinoginemia -- potentially cosumptive process given sepsis --> Discussed with RN, Sofie, patient requires 10 units coprecipitate on 05/23, requires emergency transfusion, unable to obtain consent, no family available, thus 2 MD consent obtained # Lower extremity edema with an elevated BNP in a patient with renal failure on hemodialysis. --> on HD per Dr. Arroyo. --> currently has improved # Atrial fib w rvr/flutter, being seen by cards, has converted to sr --> Cardiology is following, appreciate recs, echo was reviewed --> Currently denies any chest pain, completely rule out ACS --> EKG showed old inferior and anterior wall WI, but no ischemia. 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 --> Nephro is following, appreciate recs. HD appeox 3x a week --> On intermittent HD # Respiratory failure on a vent, intubated The time of note does not necessarily reflect the time of encounter Greatly appreciate consultation! Subjective Constitutional: Denies: no symptoms, chills, diaphoresis, fever, malaise, weakness, other HEENT: Denies: no symptoms, eye pain, blurred vision, tearing, double vision, ear pain, ear discharge, nose pain, nose congestion, throat pain, throat swelling, mouth pain, mouth swelling, other Cardiovascular: Denies: no symptoms, chest pain, edema, irregular heart rate, lightheadedness, palpitations, syncope, other Respiratory: Denies: no symptoms, cough, orthopnea, shortness of breath, SOB with excertion, SOB at rest, sputum, stridor, wheezing, other Gastrointestinal/Abdominal: Denies: no symptoms, abdomen distended, abdominal pain, black stools, tarry stools, blood in stool, constipated, diarrhea, difficulty swallowing, nausea, poor appetite, poor fluid intake, rectal bleeding , vomiting, other Genitourinary: Denies: no symptoms, burning, discharge, frequency, flank pain, hematuria, incontinence, pain, urgency, other Neurologic/Psychiatric: Denies: no symptoms, anxiety, depressed, emotional problems, headache, numbness, paresthesia, pre-existing deficit, seizure, tingling, tremors, weakness, other Endocrine: Denies: no symptoms, excessive sweating, flushing, intolerance to cold, intolerance to heat, increased hunger, increased thirst, increased urine, unexplained weight gain, unexplained weight loss, other Hematologic/Lymphatic: Denies: no symptoms, anemia, easy bleeding, easy bruising, other Allergies: Coded Allergies: No Known Allergies (Unverified , 11/12/12) Subjective 05/12: Pt resting in bed. No acute events. H/H stable. On abx. VS stable. 05/13: on pressors, on hep gtt, on steriods, abx, got hd, felice catheter in place : CT-A was negative, hep gtt as per cards, abg reviewed, moaning on exam, on ceftriaxone 05/15 :Pt remains in ICU. Currently undergoing HD. Pt on 2 cardiac drips for elevated Bp. WBC remains elevated. H/H stable. 05/16: s/p sb resection, In ICU s/p Small bowel resection on Amiodarone and Levophed drip. HR around 100. 05/17: Orally intubated on Ac 16, Vt 500, P 5 fio2 30%. Pt continues NPO at this time. Right upper arm and right FA IV sites patent and intact at this time. Amio gtt running 05/18: Pt remains in ICU. Pt for STAT HD. WBC remains elevated, afebrile. 05/19: getting hd periodically, no other events, vent to be weaned, labs reviewed, on dilaudid, ativan and fentanyl per pulm 05/21: prognosis is more guarded, no events to report, no f/c, but on two pressors now, on hep gtt for antonio thrombosis, hd as well 3x/week 05/22: on 2 pressors, seen by cards, renal, ryan drain draining improved, still on vent, converted to sr, on amio gtt, lactic acid downtrending, minimally responsive, on heparin gtt as well for antonio thrombus 05/23: patient to go to OR ginette potential washout, ostomy, and line placement, fibrinogen low, needs cryoprecipirate, will also check inr/pt, cbc reviewed, electrolytes noted 05/24: Patient continues to be intubated on vent. He is s/p exploratory lap with wound washout and wound vac placement. Objective Last 24 Hour Vital Signs Date Time Temp Pulse Resp B/P (MAP) Pulse Ox O2 Delivery O2 Flow Rate FiO2 05/24/18 20:39 64 24 45 05/24/18 19:29 65 21 60 05/24/18 19:00 124/29 05/24/18 19:00 71 23 148/36 (73) 100 05/24/18 18:45 68 23 131/34 (66) 100 05/24/18 18:30 69 23 135/30 (65) 100 05/24/18 18:15 71 23 126/37 (66) 100 05/24/18 18:05 81/24 05/24/18 18:00 98.9 72 23 119/37 (64) 100 05/24/18 18:00 119/37 05/24/18 17:45 73 23 81/24 (43) 100 05/24/18 17:30 73 23 119/33 (61) 100 05/24/18 17:15 75 23 118/42 (67) 100 05/24/18 17:10 75 26 60 05/24/18 17:00 119/33 05/24/18 17:00 75 24 114/33 (60) 100 05/24/18 16:45 75 24 114/33 (60) 100 05/24/18 16:30 79 23 123/31 (61) 100 05/24/18 16:15 98.8 79 23 105/35 (58) 100 05/24/18 16:00 Mechanical Ventilator Mechanical Ventilator 05/24/18 16:00 55 05/24/18 16:00 84 25 181/42 (88) 100 05/24/18 16:00 181/42 05/24/18 16:00 100 05/24/18 15:30 72 25 129/35 (66) 100 05/24/18 15:15 78 25 125/38 (67) 100 05/24/18 15:00 114/40 05/24/18 15:00 81 25 121/30 (60) 100 05/24/18 14:45 80 25 80/29 (46) 100 05/24/18 14:41 73 25 60 05/24/18 14:30 75 25 191/39 (89) 100 05/24/18 14:15 91 25 175/39 (84) 100 05/24/18 14:00 191/39 05/24/18 14:00 92 25 191/39 (89) 100 05/24/18 13:45 92 25 115/31 (59) 100 05/24/18 13:30 92 25 99/18 (45) 100 75 05/24/18 13:15 92 25 101/18 (45) 100 89 05/24/18 13:12 79/15 05/24/18 13:00 97 25 97/24 (48) 100 05/24/18 13:00 79/15 05/24/18 12:53 97 35 60 05/24/18 12:45 92 25 97/24 (48) 100 05/24/18 12:30 86 28 120/30 (60) 100 05/24/18 12:26 75 16 98 05/24/18 12:15 76 28 99/56 (70) 100 05/24/18 12:00 73 05/24/18 12:00 75 28 136/28 (64) 100 05/24/18 12:00 98.4 05/24/18 12:00 Mechanical Ventilator Mechanical Ventilator 05/24/18 12:00 55 05/24/18 12:00 136/28 05/24/18 11:45 78 28 136/28 (64) 100 05/24/18 11:30 91 28 147/23 (64) 100 05/24/18 11:15 96 28 138/30 (66) 100 05/24/18 11:00 80 25 138/45 (76) 100 05/24/18 11:00 138/30 05/24/18 11:00 84 138/45 05/24/18 10:59 78 32 60 05/24/18 10:45 89 32 138/45 (76) 100 05/24/18 10:30 89 32 110/45 (66) 100 05/24/18 10:15 90 31 115/22 (53) 100 05/24/18 10:00 90 31 108/21 (50) 100 05/24/18 10:00 108/21 05/24/18 09:45 85 25 100/14 (42) 100 05/24/18 09:34 Endotracheal Tube 55 05/24/18 09:30 84 25 101/19 (46) 100 05/24/18 09:26 77 30 60 05/24/18 09:15 77 25 107/31 (56) 100 05/24/18 09:00 83 25 130/30 (63) 100 05/24/18 09:00 136/26 05/24/18 08:45 84 25 122/26 (58) 100 05/24/18 08:30 75 25 122/26 (58) 100 05/24/18 08:15 81 25 103/16 (45) 100 05/24/18 08:05 05/24/18 08:00 80 05/24/18 08:00 55 05/24/18 08:00 Mechanical Ventilator Mechanical Ventilator 05/24/18 08:00 97.9 76 25 91/17 (41) 100 05/24/18 07:45 65 25 110/31 (57) 100 05/24/18 07:30 73 25 157/22 (67) 100 05/24/18 07:15 63 25 110/31 (57) 100 05/24/18 07:00 91/17 05/24/18 07:00 65 25 97/28 (51) 100 05/24/18 06:44 63 28 60 05/24/18 06:30 70 25 110/31 (57) 100 05/24/18 06:00 72 25 118/31 (60) 100 05/24/18 05:30 72 25 120/31 (60) 100 05/24/18 05:20 80 33 60 05/24/18 05:00 152/31 05/24/18 05:00 69 25 140/31 (67) 100 05/24/18 04:30 70 25 152/31 (71) 100 05/24/18 04:00 Mechanical Ventilator Mechanical Ventilator 05/24/18 04:00 55 05/24/18 04:00 143/27 05/24/18 04:00 98.9 70 29 143/27 (65) 100 05/24/18 03:30 70 29 142/27 (65) 100 05/24/18 03:28 82 33 60 05/24/18 03:00 65 26 118/29 (58) 100 05/24/18 02:45 127/28 05/24/18 02:30 62 26 116/29 (58) 100 05/24/18 02:00 62 26 119/30 (59) 100 05/24/18 01:27 63 25 60 05/24/18 01:00 61 26 103/30 (54) 100 05/24/18 01:00 103/30 05/24/18 00:30 63 25 103/30 (54) 100 05/24/18 00:00 99.0 64 25 108/35 (59) 100 05/24/18 00:00 67 05/24/18 00:00 108/35 05/24/18 00:00 Mechanical Ventilator Mechanical Ventilator 05/24/18 00:00 55 05/23/18 23:53 110/42 05/23/18 23:51 92/18 05/23/18 23:30 65 24 60 05/23/18 23:30 78 22 121/33 (62) 100 05/23/18 23:00 77 22 97/30 (52) 100 05/23/18 23:00 97/30 05/23/18 22:30 65 22 121/33 (62) 100 Intake and Output 05/23/18 05/24/18 18:59 06:59 Intake Total 1289.28 ml 1138.86 ml Output Total 275 ml 1150 ml Balance 1014.28 ml -11.14 ml Intake Oral 250 ml IV Total 819.28 ml 1138.86 ml Hemodialysis 200 ml Other 20 ml Output Urine Total 0 ml 0 ml Gastric Drainage Total 250 ml 130 ml Drainage Total 25 ml 1020 ml Hemodialysis UF 0 ml # Voids 1 # Bowel Movements 8 6 Laboratory Tests 05/24/18 05:30: White Blood Count 5.5, Red Blood Count 2.10L, Hemoglobin 6.2*L, Hematocrit 19.7L , Mean Corpuscular Volume 94, Mean Corpuscular Hemoglobin 29.6, Mean Corpuscular Hemoglobin Concent 31.5L, Red Cell Distribution Width 15.3H, Platelet Count 268, Mean Platelet Volume 9.2, Neutrophils (%) (Auto) , Lymphocytes (%) (Auto) , Monocytes (%) (Auto) , Eosinophils (%) (Auto) , Basophils (%) (Auto) , Differential Total Cells Counted 100, Neutrophils % ( Manual) 67, Lymphocytes % (Manual) 1L, Monocytes % (Manual) 12H, Eosinophils % ( Manual) 0, Basophils % (Manual) 0, Band Neutrophils 20H, Platelet Estimate Adequate, Platelet Morphology See comment, Giant Platelets Occasional, Hypochromasia 1+, Anisocytosis 1+, Sodium Level 121L, Potassium Level 4.0, Chloride Level 83L, Carbon Dioxide Level 16L, Anion Gap 22H, Blood Urea Nitrogen 103H, Creatinine 6.8H, Estimat Glomerular Filtration Rate , Glucose Level 252H, Lactic Acid Level 4.30H, Calcium Level 7.0L, Total Bilirubin 0.9, Aspartate Amino Transf (AST/SGOT) 84H, Alanine Aminotransferase (ALT/SGPT) 35, Alkaline Phosphatase 107, Total Protein 4.5L, Albumin 1.2L, Globulin 3.3, Albumin/Globulin Ratio 0.4L, Random Vancomycin Level 14.6 05/24/18 08:20: Lactic Acid Level 4.40H 05/24/18 09:50: White Blood Count 4.9, Red Blood Count 2.01L, Hemoglobin 5.9*L, Hematocrit 18.8L , Mean Corpuscular Volume 93, Mean Corpuscular Hemoglobin 29.4, Mean Corpuscular Hemoglobin Concent 31.6L, Red Cell Distribution Width 15.6H, Platelet Count 211, Mean Platelet Volume 8.1, Neutrophils (%) (Auto) , Lymphocytes (%) (Auto) , Monocytes (%) (Auto) , Eosinophils (%) (Auto) , Basophils (%) (Auto) , Differential Total Cells Counted 100, Neutrophils % ( Manual) 47, Lymphocytes % (Manual) 2L, Monocytes % (Manual) 4, Eosinophils % ( Manual) 2, Basophils % (Manual) 0, Band Neutrophils 43H, Platelet Estimate Adequate, Platelet Morphology See comment, Giant Platelets Occasional, Hypochromasia 1+, Anisocytosis 1+, Metamyelocytes % 1H, Myelocytes % 1H, Nucleated Red Blood Cells 2, Polychromasia 1+ Height (Feet): 5 Height (Inches): 4.00 Weight (Pounds): 190 Objective PHYSICAL EXAMINATION: VITAL SIGNS: Have been reviewed HEENT: PERRLA. NECK: Supple. No lymphadenopathy. CHEST: ++ intubated CARDIOVASCULAR: Tachycardic. GASTROINTESTINAL: Distended. Positive bowel sounds. Nontender. No organomegaly. ++ ryan drain in place EXTREMITY: 2+ edema. NEURO: responsive to simple command Reinaldo Leon MD May 24, 2018 22:22
--- NOTE | 2018-05-24 22:48 | General Progress Note ---
Assessment/Plan Problem List: (1) ACS (acute coronary syndrome) ICD Codes: I24.9 - Acute ischemic heart disease, unspecified SNOMED: 542237245 (2) ESRD (end stage renal disease) on dialysis ICD Codes: N18.6 - End stage renal disease; Z99.2 - Dependence on renal dialysis SNOMED: 339604079 (3) Depression ICD Codes: F32.9 - Major depressive disorder, single episode, unspecified SNOMED: 96215274 (4) Anemia ICD Codes: D64.9 - Anemia, unspecified SNOMED: 719162332 (5) Sacral decubitus ulcer, stage III ICD Codes: L89.153 - Pressure ulcer of sacral region, stage 3 SNOMED: 285581471, 397861120 (6) Major depression ICD Codes: F32.9 - Major depressive disorder, single episode, unspecified SNOMED: 467298902 (7) anxiety disorder (8) Atrial fibrillation ICD Codes: I48.91 - Unspecified atrial fibrillation SNOMED: 14053874 (9) Hypoxemia ICD Codes: R09.02 - Hypoxemia SNOMED: 613833436 (10) Hypotension ICD Codes: I95.9 - Hypotension, unspecified SNOMED: 04356750 (11) Shock ICD Codes: R57.9 - Shock, unspecified SNOMED: 59502496 (12) Elevated d-dimer ICD Codes: R79.89 - Other specified abnormal findings of blood chemistry SNOMED: 194809512 (13) encephalopathy due to metabolic factor Status: deteriorating Assessment/Plan respiratory failure intubated s/p washout of pus / exploratory lap severe anemia transfusion is ordered critical condition in septic shock esrd on hd s/p septic shock pna s/p lap choly w perforation (in different hospital) Subjective Allergies: Coded Allergies: No Known Allergies (Unverified , 11/12/12) Objective Last 24 Hour Vital Signs Date Time Temp Pulse Resp B/P (MAP) Pulse Ox O2 Delivery O2 Flow Rate FiO2 05/24/18 20:39 64 24 45 05/24/18 19:29 65 21 60 05/24/18 19:00 124/29 05/24/18 19:00 71 23 148/36 (73) 100 05/24/18 18:45 68 23 131/34 (66) 100 05/24/18 18:30 69 23 135/30 (65) 100 05/24/18 18:15 71 23 126/37 (66) 100 05/24/18 18:05 81/24 05/24/18 18:00 98.9 72 23 119/37 (64) 100 05/24/18 18:00 119/37 05/24/18 17:45 73 23 81/24 (43) 100 05/24/18 17:30 73 23 119/33 (61) 100 05/24/18 17:15 75 23 118/42 (67) 100 05/24/18 17:10 75 26 60 05/24/18 17:00 119/33 05/24/18 17:00 75 24 114/33 (60) 100 05/24/18 16:45 75 24 114/33 (60) 100 05/24/18 16:30 79 23 123/31 (61) 100 05/24/18 16:15 98.8 79 23 105/35 (58) 100 05/24/18 16:00 Mechanical Ventilator Mechanical Ventilator 05/24/18 16:00 55 05/24/18 16:00 84 25 181/42 (88) 100 05/24/18 16:00 181/42 05/24/18 16:00 100 05/24/18 15:30 72 25 129/35 (66) 100 05/24/18 15:15 78 25 125/38 (67) 100 05/24/18 15:00 114/40 05/24/18 15:00 81 25 121/30 (60) 100 05/24/18 14:45 80 25 80/29 (46) 100 05/24/18 14:41 73 25 60 05/24/18 14:30 75 25 191/39 (89) 100 05/24/18 14:15 91 25 175/39 (84) 100 05/24/18 14:00 191/39 05/24/18 14:00 92 25 191/39 (89) 100 05/24/18 13:45 92 25 115/31 (59) 100 05/24/18 13:30 92 25 99/18 (45) 100 75 05/24/18 13:15 92 25 101/18 (45) 100 89 05/24/18 13:12 79/15 05/24/18 13:00 97 25 97/24 (48) 100 05/24/18 13:00 79/15 05/24/18 12:53 97 35 60 05/24/18 12:45 92 25 97/24 (48) 100 05/24/18 12:30 86 28 120/30 (60) 100 05/24/18 12:26 75 16 98 05/24/18 12:15 76 28 99/56 (70) 100 05/24/18 12:00 73 05/24/18 12:00 75 28 136/28 (64) 100 05/24/18 12:00 98.4 05/24/18 12:00 Mechanical Ventilator Mechanical Ventilator 05/24/18 12:00 55 05/24/18 12:00 136/28 05/24/18 11:45 78 28 136/28 (64) 100 05/24/18 11:30 91 28 147/23 (64) 100 05/24/18 11:15 96 28 138/30 (66) 100 05/24/18 11:00 80 25 138/45 (76) 100 05/24/18 11:00 138/30 05/24/18 11:00 84 138/45 05/24/18 10:59 78 32 60 05/24/18 10:45 89 32 138/45 (76) 100 05/24/18 10:30 89 32 110/45 (66) 100 05/24/18 10:15 90 31 115/22 (53) 100 05/24/18 10:00 90 31 108/21 (50) 100 05/24/18 10:00 108/21 05/24/18 09:45 85 25 100/14 (42) 100 05/24/18 09:34 Endotracheal Tube 55 05/24/18 09:30 84 25 101/19 (46) 100 05/24/18 09:26 77 30 60 05/24/18 09:15 77 25 107/31 (56) 100 05/24/18 09:00 83 25 130/30 (63) 100 05/24/18 09:00 136/26 05/24/18 08:45 84 25 122/26 (58) 100 05/24/18 08:30 75 25 122/26 (58) 100 05/24/18 08:15 81 25 103/16 (45) 100 05/24/18 08:05 91/17 05/24/18 08:00 80 05/24/18 08:00 55 05/24/18 08:00 Mechanical Ventilator Mechanical Ventilator 05/24/18 08:00 97.9 76 25 91/17 (41) 100 05/24/18 07:45 65 25 110/31 (57) 100 05/24/18 07:30 73 25 157/22 (67) 100 05/24/18 07:15 63 25 110/31 (57) 100 05/24/18 07:00 91/17 05/24/18 07:00 65 25 97/28 (51) 100 05/24/18 06:44 63 28 60 05/24/18 06:30 70 25 110/31 (57) 100 05/24/18 06:00 72 25 118/31 (60) 100 05/24/18 05:30 72 25 120/31 (60) 100 05/24/18 05:20 80 33 60 05/24/18 05:00 152/31 05/24/18 05:00 69 25 140/31 (67) 100 05/24/18 04:30 70 25 152/31 (71) 100 05/24/18 04:00 Mechanical Ventilator Mechanical Ventilator 05/24/18 04:00 55 05/24/18 04:00 143/27 05/24/18 04:00 98.9 70 29 143/27 (65) 100 05/24/18 03:30 70 29 142/27 (65) 100 05/24/18 03:28 82 33 60 05/24/18 03:00 65 26 118/29 (58) 100 05/24/18 02:45 127/28 05/24/18 02:30 62 26 116/29 (58) 100 05/24/18 02:00 62 26 119/30 (59) 100 05/24/18 01:27 63 25 60 05/24/18 01:00 61 26 103/30 (54) 100 05/24/18 01:00 103/30 05/24/18 00:30 63 25 103/30 (54) 100 05/24/18 00:00 99.0 64 25 108/35 (59) 100 05/24/18 00:00 67 05/24/18 00:00 108/35 05/24/18 00:00 Mechanical Ventilator Mechanical Ventilator 05/24/18 00:00 55 05/23/18 23:53 110/42 05/23/18 23:51 92/18 05/23/18 23:30 65 24 60 05/23/18 23:30 78 22 121/33 (62) 100 05/23/18 23:00 77 22 97/30 (52) 100 05/23/18 23:00 97/30 Intake and Output 05/23/18 05/24/18 18:59 06:59 Intake Total 1289.28 ml 1138.86 ml Output Total 275 ml 1150 ml Balance 1014.28 ml -11.14 ml Intake Oral 250 ml IV Total 819.28 ml 1138.86 ml Hemodialysis 200 ml Other 20 ml Output Urine Total 0 ml 0 ml Gastric Drainage Total 250 ml 130 ml Drainage Total 25 ml 1020 ml Hemodialysis UF 0 ml # Voids 1 # Bowel Movements 8 6 Laboratory Tests 05/24/18 05:30: White Blood Count 5.5, Red Blood Count 2.10L, Hemoglobin 6.2*L, Hematocrit 19.7L , Mean Corpuscular Volume 94, Mean Corpuscular Hemoglobin 29.6, Mean Corpuscular Hemoglobin Concent 31.5L, Red Cell Distribution Width 15.3H, Platelet Count 268, Mean Platelet Volume 9.2, Neutrophils (%) (Auto) , Lymphocytes (%) (Auto) , Monocytes (%) (Auto) , Eosinophils (%) (Auto) , Basophils (%) (Auto) , Differential Total Cells Counted 100, Neutrophils % ( Manual) 67, Lymphocytes % (Manual) 1L, Monocytes % (Manual) 12H, Eosinophils % ( Manual) 0, Basophils % (Manual) 0, Band Neutrophils 20H, Platelet Estimate Adequate, Platelet Morphology See comment, Giant Platelets Occasional, Hypochromasia 1+, Anisocytosis 1+, Sodium Level 121L, Potassium Level 4.0, Chloride Level 83L, Carbon Dioxide Level 16L, Anion Gap 22H, Blood Urea Nitrogen 103H, Creatinine 6.8H, Estimat Glomerular Filtration Rate , Glucose Level 252H, Lactic Acid Level 4.30H, Calcium Level 7.0L, Total Bilirubin 0.9, Aspartate Amino Transf (AST/SGOT) 84H, Alanine Aminotransferase (ALT/SGPT) 35, Alkaline Phosphatase 107, Total Protein 4.5L, Albumin 1.2L, Globulin 3.3, Albumin/Globulin Ratio 0.4L, Random Vancomycin Level 14.6 05/24/18 08:20: Lactic Acid Level 4.40H 05/24/18 09:50: White Blood Count 4.9, Red Blood Count 2.01L, Hemoglobin 5.9*L, Hematocrit 18.8L , Mean Corpuscular Volume 93, Mean Corpuscular Hemoglobin 29.4, Mean Corpuscular Hemoglobin Concent 31.6L, Red Cell Distribution Width 15.6H, Platelet Count 211, Mean Platelet Volume 8.1, Neutrophils (%) (Auto) , Lymphocytes (%) (Auto) , Monocytes (%) (Auto) , Eosinophils (%) (Auto) , Basophils (%) (Auto) , Differential Total Cells Counted 100, Neutrophils % ( Manual) 47, Lymphocytes % (Manual) 2L, Monocytes % (Manual) 4, Eosinophils % ( Manual) 2, Basophils % (Manual) 0, Band Neutrophils 43H, Platelet Estimate Adequate, Platelet Morphology See comment, Giant Platelets Occasional, Hypochromasia 1+, Anisocytosis 1+, Metamyelocytes % 1H, Myelocytes % 1H, Nucleated Red Blood Cells 2, Polychromasia 1+ Height (Feet): 5 Height (Inches): 4.00 Weight (Pounds): 190 General Appearance: lethargic, confused Abdomen: tender Samantha Head MD May 24, 2018 22:48
[2018-05-25] VITALS (52 sets, daily range): BP systolic 88–171; BP diastolic 24–78
[2018-05-25] MEDS: NovoLOG Insulin Flexpen SUBQ SCH ×6 (01:12→20:51)
[2018-05-25] MEDS: Norepinephrine Bitartrate 8 MG in D5W 500ml 492 ML IV SCH ×2 (01:18→09:38)
--- NOTE | 2018-05-25 01:27 | NUR ---
NURSE NOTES:4th unit PRBC was finished. No reactions noted.
--- NOTE | 2018-05-25 03:00 | NUR ---
NURSE NOTES:Complete bath with bed changed done.
--- NOTE | 2018-05-25 05:00 | NUR ---
NURSE NOTES:pt more alert at this time. Levophed down to 15mcg/min. VSS.
[2018-05-25] MEDS: Hydrocortisone 100mg Inj IV SCH ×3 (06:03→21:04)
[2018-05-25] MEDS: Piperacillin/Tazobactam 2.25 GM in D5W 55 ML IVPB SCH (06:04)
[2018-05-25 06:06] LABS: HEMATOCRIT 29.2 % (42.0-52.0); HEMOGLOBIN 9.8 G/DL (14.2-18.0); INR 1.6 (0.9-1.1); MEAN CORPUSCULAR VOLUME 86 FL (80-99); PLATELET COUNT 163 K/UL (150-450); RED CELL DISTRIBUTION WIDTH 14.8 % (11.6-14.8); WHITE BLOOD COUNT 9.2 K/UL (4.8-10.8)
[2018-05-25 06:13] LABS: ALANINE AMINOTRANSFERASE 26 U/L (12-78); ALBUMIN 1.1 G/DL (3.4-5.0); ALBUMIN/GLOBULIN RATIO 0.3 (1.0-2.7); ALKALINE PHOSPHATASE 140 U/L (46-116); ANION GAP 18 mmol/L (5-15); ASPARTATE AMINO TRANSFERASE 51 U/L (15-37); BILIRUBIN,TOTAL 0.9 MG/DL (0.2-1.0); BLOOD UREA NITROGEN 77 mg/dL (7-18); CALCIUM 7.5 MG/DL (8.5-10.1); CARBON DIOXIDE 21 MMOL/L (21-32); CHLORIDE 88 MMOL/L (98-107); CREATININE 5.2 MG/DL (0.55-1.30); POTASSIUM 3.3 MMOL/L (3.5-5.1); SODIUM 127 MMOL/L (136-145)
[2018-05-25] MEDS ORDERED: Amiodarone 900 MG in D5W 500ml 482 ML IV SCH (07:00)
--- NOTE | 2018-05-25 07:30 | NUR ---
HAND-OFF: Report given to Chetna Wilson using sBAR, Walking rounds done.
--- NOTE | 2018-05-25 07:31 | NUR ---
NURSE NOTES: Report received from MINGO Gage. Pt is able to wake up and able to answer for simple questions. Sinus rhythm on security monitor. Orally intubated. ETT 8.5/24cm at lip level. AC 16, TV 500, FiO2 45%, P 5. O2 sat 100%. No respiratory distress noted. OGT in place connected to low intermittent suction, draining brown emesis. Kept NPO as per order. Abdominal wound vag dressing intact and draining dark brown drainage via machine. Left abdomen VELVET draining intact. Left subclavian TLC patent and asymptomatic. Right femoral Donis for HD noted. Pt is on Levophed at 15 mcg/min and Amiodarone at 0.5 mcg/min. Bed in lowest position. Side rails up x3. Will resume plan of care.
[2018-05-25] MEDS: Levemir Flexpen SUBQ SCH ×3 (09:00→17:54)
--- NOTE | 2018-05-25 09:00 | NUR ---
NURSE NOTES: Spoke with the pharmacist. Documentation in eMAR seems Levemir 6 units given. However, only 3 units given since pt is NPO.
[2018-05-25] MEDS: Pantoprazole Inj IVP SCH ×2 (09:30→20:30)
--- NOTE | 2018-05-25 09:30 | NUR ---
NURSE NOTES: Dr Chandler here to see the patient. Updated him with pt's current condition. Wound vac container replaced with a new one since it was full. Doctor said he will do surgery on Sunday afternoon.
--- NOTE | 2018-05-25 10:20 | Pulmonolgy Critical Care Note ---
Critical Care - Asmt/Plan Problems: (1) Shock (2) Hypoxemia (3) Elevated d-dimer Assessment & Plan: S/P neg CT-A + UE DVT (4) Hypotension (5) Atrial fibrillation (6) ESRD (end stage renal disease) on dialysis (7) ACS (acute coronary syndrome) (8) Sacral decubitus ulcer, stage III (9) S/P cholecystectomy (10) Serratia sepsis (11) S/P exploratory laparotomy (12) Perforated viscus Assessment/Plan: -CXR -ABG -Off Vaso, titrate NE for MAP > 60 -Continue ventilatory support/settings reviewed -Titrate down FiO2 to keep SaO2 > 90%, continue PEEP 5 -HD per renal as able -Amio gtt per cards/EPS, off Dilt -IV[facility] held -Monitor CBC, transfuse as needed -Monitor for bleeding -Arabella and Zosyn per ID, F/U Cx's -Decrease HC to 75 TIC -F/U surgery recs --> Sunday -FC D/W RN and RT CCT 35 Critical Care - Objective Last 24 Hour Vital Signs Date Time Temp Pulse Resp B/P (MAP) Pulse Ox O2 Delivery O2 Flow Rate FiO2 05/25/18 09:38 157/43 05/25/18 08:34 69 23 45 05/25/18 06:43 72 26 45 05/25/18 06:04 141/39 05/25/18 06:00 65 26 126/32 (63) 100 05/25/18 05:30 62 26 137/41 (73) 100 05/25/18 05:29 68 24 45 05/25/18 05:00 62 28 130/38 (68) 100 05/25/18 05:00 126/34 05/25/18 04:30 63 28 126/34 (64) 100 05/25/18 04:00 142/29 05/25/18 04:00 45 05/25/18 04:00 Mechanical Ventilator Mechanical Ventilator 05/25/18 04:00 98.8 76 31 142/29 (66) 29 05/25/18 03:30 90 31 158/78 (104) 100 05/25/18 03:22 74 24 45 05/25/18 03:00 73 31 88/27 (47) 100 05/25/18 03:00 88/27 05/25/18 02:30 83 31 167/52 (90) 100 05/25/18 02:00 124/34 05/25/18 02:00 62 29 124/34 (64) 100 05/25/18 01:30 78 25 45 05/25/18 01:30 62 29 126/27 (60) 100 05/25/18 01:18 137/37 05/25/18 01:00 78 29 137/37 (70) 100 05/25/18 00:30 64 28 117/38 (64) 100 05/25/18 00:00 Mechanical Ventilator Mechanical Ventilator 05/25/18 00:00 98.4 64 28 112/25 (54) 100 05/25/18 00:00 45 05/25/18 00:00 112/25 05/24/18 23:30 74 28 97/31 (53) 100 05/24/18 23:00 74 27 118/28 (58) 100 05/24/18 23:00 118/28 05/24/18 22:56 81 32 45 05/24/18 22:30 84 32 151/39 (76) 100 05/24/18 22:00 63 23 106/40 (62) 100 05/24/18 22:00 106/40 05/24/18 21:30 70 23 83/23 (43) 100 05/24/18 21:00 139/41 05/24/18 21:00 69 23 139/41 (73) 100 05/24/18 20:39 64 24 45 05/24/18 20:30 68 23 128/35 (66) 100 05/24/18 20:00 Mechanical Ventilator Mechanical Ventilator 05/24/18 20:00 45 05/24/18 20:00 98.8 68 23 128/29 (62) 100 05/24/18 20:00 68 05/24/18 20:00 128/35 05/24/18 19:29 65 21 60 05/24/18 19:00 124/29 05/24/18 19:00 71 23 148/36 (73) 100 05/24/18 18:45 68 23 131/34 (66) 100 05/24/18 18:30 69 23 135/30 (65) 100 05/24/18 18:15 71 23 126/37 (66) 100 1/4/19 18:05 81/24 05/24/18 18:00 98.9 72 23 119/37 (64) 100 05/24/18 18:00 119/37 05/24/18 17:45 73 23 81/24 (43) 100 05/24/18 17:30 73 23 119/33 (61) 100 05/24/18 17:15 75 23 118/42 (67) 100 05/24/18 17:10 75 26 60 05/24/18 17:00 119/33 05/24/18 17:00 75 24 114/33 (60) 100 05/24/18 16:45 75 24 114/33 (60) 100 05/24/18 16:30 79 23 123/31 (61) 100 05/24/18 16:15 98.8 79 23 105/35 (58) 100 05/24/18 16:00 Mechanical Ventilator Mechanical Ventilator 05/24/18 16:00 55 05/24/18 16:00 84 25 181/42 (88) 100 05/24/18 16:00 181/42 05/24/18 16:00 100 05/24/18 15:30 72 25 129/35 (66) 100 05/24/18 15:15 78 25 125/38 (67) 100 05/24/18 15:00 114/40 05/24/18 15:00 81 25 121/30 (60) 100 05/24/18 14:45 80 25 80/29 (46) 100 05/24/18 14:41 73 25 60 05/24/18 14:30 75 25 191/39 (89) 100 05/24/18 14:15 91 25 175/39 (84) 100 05/24/18 14:00 191/39 05/24/18 14:00 92 25 191/39 (89) 100 05/24/18 13:45 92 25 115/31 (59) 100 05/24/18 13:30 92 25 99/18 (45) 100 75 05/24/18 13:15 92 25 101/18 (45) 100 89 05/24/18 13:12 79/15 05/24/18 13:00 97 25 97/24 (48) 100 05/24/18 13:00 79/15 05/24/18 12:53 97 35 60 05/24/18 12:45 92 25 97/24 (48) 100 05/24/18 12:30 86 28 120/30 (60) 100 05/24/18 12:26 75 16 98 05/24/18 12:15 76 28 99/56 (70) 100 05/24/18 12:00 73 05/24/18 12:00 75 28 136/28 (64) 100 05/24/18 12:00 98.4 05/24/18 12:00 Mechanical Ventilator Mechanical Ventilator 05/24/18 12:00 55 05/24/18 12:00 136/28 05/24/18 11:45 78 28 136/28 (64) 100 05/24/18 11:30 91 28 147/23 (64) 100 05/24/18 11:15 96 28 138/30 (66) 100 05/24/18 11:00 80 25 138/45 (76) 100 05/24/18 11:00 138/30 05/24/18 11:00 84 138/45 05/24/18 10:59 78 32 60 05/24/18 10:45 89 32 138/45 (76) 100 05/24/18 10:30 89 32 110/45 (66) 100 Status: sedated, other - intubated Condition: critical HEENT: atraumatic, other - + ETT + OGT Lungs: rhonchi Heart: HR/BP unstable Abdomen: other - wound vac, hypoactive BS Extremities: other - 1+ edema x 4 Decubiti: location - sacral Micro: Microbiology Date/Time Source Procedure Growth Status 05/22/18 12:00 Abdomen Gram Stain - Final Resulted 05/22/18 12:00 Wound Culture - Preliminary Enterobacter Aerogenes YEAST Resulted Accucheck: 180 Blood Sugars: BS controlled Critical Care - Subjective ROS Limited/Unobtainable: Yes ICU Day: 11 Intubation Day: 8 Interval Events: AF - NE 10 off Vaso no distress Condition: critical IV Access: central EKG Rhythm: Sinus Rhythm FI02: 45 Vent Support Breath Rate: 16 Vent Support Mode: AC Vent Tidal Volume: 500 Sputum Amount: Scant PEEP: 5.0 PIP: 23 Drips: NE 10 off Vaso + Amio Tube Feeding Amount: 0 I&O: Intake and Output 05/24/18 05/25/18 19:00 07:00 Intake Total 1703.06 ml 1479.14 ml Output Total 720 ml 320 ml Balance 983.06 ml 1159.14 ml IV Total 1703.06 ml 879.14 ml Tube Feeding 0 ml Blood Product 600 ml Output Urine Total 0 ml 0 ml Drainage Total 20 ml 220 ml Hemodialysis UF 500 ml Other 200 ml 100 ml Subjective: CROW ET-Tube: 8.5 ET Position: 24 Labs: Laboratory Tests Test 05/25/18 05:20 White Blood Count 9.2 K/UL (4.8-10.8) # Red Blood Count 3.40 M/UL (4.70-6.10) L Hemoglobin 9.8 G/DL (14.2-18.0) #L Hematocrit 29.2 % (42.0-52.0) #L Mean Corpuscular Volume 86 FL (80-99) Mean Corpuscular Hemoglobin 28.9 PG (27.0-31.0) Mean Corpuscular Hemoglobin Concent 33.6 G/DL (32.0-36.0) Red Cell Distribution Width 14.8 % (11.6-14.8) Platelet Count 163 K/UL (150-450) Mean Platelet Volume 9.2 FL (6.5-10.1) Neutrophils (%) (Auto) % (45.0-75.0) Lymphocytes (%) (Auto) % (20.0-45.0) Monocytes (%) (Auto) % (1.0-10.0) Eosinophils (%) (Auto) % (0.0-3.0) Basophils (%) (Auto) % (0.0-2.0) Differential Total Cells Counted 100 Neutrophils % (Manual) 86 % (45-75) H Lymphocytes % (Manual) 2 % (20-45) L Monocytes % (Manual) 8 % (1-10) Eosinophils % (Manual) 0 % (0-3) Basophils % (Manual) 0 % (0-2) Band Neutrophils 4 % (0-8) Nucleated Red Blood Cells 3 /100 WBC Platelet Estimate Adequate Platelet Morphology Normal Hypochromasia 2+ Anisocytosis 1+ Prothrombin Time 16.8 SEC (9.30-11.50) H Prothromb Time International Ratio 1.6 (0.9-1.1) H Activated Partial Thromboplast Time 47 SEC (23-33) H Sodium Level 127 MMOL/L (136-145) L Potassium Level 3.3 MMOL/L (3.5-5.1) L Chloride Level 88 MMOL/L (98-107) L Carbon Dioxide Level 21 MMOL/L (21-32) Anion Gap 18 mmol/L (5-15) H Blood Urea Nitrogen 77 mg/dL (7-18) H Creatinine 5.2 MG/DL (0.55-1.30) H Estimat Glomerular Filtration Rate mL/min (>60) Glucose Level 223 MG/DL (74-106) H Lactic Acid Level 3.30 mmol/L (0.4-2.0) H Calcium Level 7.5 MG/DL (8.5-10.1) L Total Bilirubin 0.9 MG/DL (0.2-1.0) Aspartate Amino Transf (AST/SGOT) 51 U/L (15-37) H Alanine Aminotransferase (ALT/SGPT) 26 U/L (12-78) Alkaline Phosphatase 140 U/L (46-116) H Total Protein 4.4 G/DL (6.4-8.2) L Albumin 1.1 G/DL (3.4-5.0) L Globulin 3.3 g/dL Albumin/Globulin Ratio 0.3 (1.0-2.7) L Daryl Jones MD May 25, 2018 10:20
--- NOTE | 2018-05-25 10:58 | General Progress Note ---
Progress Note Progress Note Surgery: doing well since wound vac change. off vaso coming off levo h/h stable coags elevated electrolytes noted abd exam stable vac in place and draining cont current care wean off off pressors trend labs plan for OR Sunday for closure thank you Tomas Chandler May 25, 2018 10:58
[2018-05-25] MEDS: Vasopressin 100 UNITS in NS 95 ML IV SCH (11:15)
--- NOTE | 2018-05-25 11:33 | General Progress Note ---
Assessment/Plan Assessment/Plan Assessment - septic shock - abdominal infection - resp failure - renal failure - malnutrition -GIB Recommendation - protonix bid -s/p 4 units PRBC -NPO -NGT to suction - supportive care - Abx - pressors - pending TPN - follow labs - vent care - HD - guarded Subjective ROS Limited/Unobtainable: No Allergies: Coded Allergies: No Known Allergies (Unverified , 11/12/12) Objective Last 24 Hour Vital Signs Date Time Temp Pulse Resp B/P (MAP) Pulse Ox O2 Delivery O2 Flow Rate FiO2 05/25/18 11:00 80 29 171/44 (86) 100 05/25/18 10:40 98 05/25/18 10:30 67 25 45 05/25/18 10:30 75 26 116/26 (56) 100 05/25/18 10:00 70 25 153/43 (79) 100 05/25/18 09:38 157/43 05/25/18 09:30 77 25 137/38 (71) 100 05/25/18 09:00 86 24 120/38 (65) 100 05/25/18 08:34 69 23 45 05/25/18 08:30 59 21 138/32 (67) 100 05/25/18 08:00 Mechanical Ventilator Mechanical Ventilator 05/25/18 08:00 98.9 83 30 159/46 (83) 100 05/25/18 08:00 45 05/25/18 07:30 62 28 129/36 (67) 100 05/25/18 07:00 85 30 152/42 (78) 100 05/25/18 06:43 72 26 45 05/25/18 06:04 141/39 05/25/18 06:00 65 26 126/32 (63) 100 05/25/18 05:30 62 26 137/41 (73) 100 05/25/18 05:29 68 24 45 05/25/18 05:00 62 28 130/38 (68) 100 05/25/18 05:00 126/34 05/25/18 04:30 63 28 126/34 (64) 100 05/25/18 04:00 142/29 05/25/18 04:00 45 05/25/18 04:00 Mechanical Ventilator Mechanical Ventilator 05/25/18 04:00 98.8 76 31 142/29 (66) 29 05/25/18 03:30 90 31 158/78 (104) 100 05/25/18 03:22 74 24 45 05/25/18 03:00 73 31 88/27 (47) 100 05/25/18 03:00 88/27 05/25/18 02:30 83 31 167/52 (90) 100 05/25/18 02:00 124/34 05/25/18 02:00 62 29 124/34 (64) 100 05/25/18 01:30 78 25 45 05/25/18 01:30 62 29 126/27 (60) 100 05/25/18 01:18 137/37 05/25/18 01:00 78 29 137/37 (70) 100 05/25/18 00:30 64 28 117/38 (64) 100 05/25/18 00:00 Mechanical Ventilator Mechanical Ventilator 05/25/18 00:00 98.4 64 28 112/25 (54) 100 05/25/18 00:00 45 05/25/18 00:00 112/25 05/24/18 23:30 74 28 97/31 (53) 100 05/24/18 23:00 74 27 118/28 (58) 100 05/24/18 23:00 118/28 05/24/18 22:56 81 32 45 05/24/18 22:30 84 32 151/39 (76) 100 05/24/18 22:00 63 23 106/40 (62) 100 05/24/18 22:00 106/40 05/24/18 21:30 70 23 83/23 (43) 100 05/24/18 21:00 139/41 05/24/18 21:00 69 23 139/41 (73) 100 05/24/18 20:39 64 24 45 05/24/18 20:30 68 23 128/35 (66) 100 05/24/18 20:00 Mechanical Ventilator Mechanical Ventilator 05/24/18 20:00 45 05/24/18 20:00 98.8 68 23 128/29 (62) 100 05/24/18 20:00 68 05/24/18 20:00 128/35 05/24/18 19:29 65 21 60 05/24/18 19:00 124/29 05/24/18 19:00 71 23 148/36 (73) 100 05/24/18 18:45 68 23 131/34 (66) 100 05/24/18 18:30 69 23 135/30 (65) 100 05/24/18 18:15 71 23 126/37 (66) 100 05/24/18 18:05 81/24 05/24/18 18:00 98.9 72 23 119/37 (64) 100 05/24/18 18:00 119/37 05/24/18 17:45 73 23 81/24 (43) 100 05/24/18 17:30 73 23 119/33 (61) 100 05/24/18 17:15 75 23 118/42 (67) 100 05/24/18 17:10 75 26 60 05/24/18 17:00 119/33 05/24/18 17:00 75 24 114/33 (60) 100 05/24/18 16:45 75 24 114/33 (60) 100 05/24/18 16:30 79 23 123/31 (61) 100 05/24/18 16:15 98.8 79 23 105/35 (58) 100 05/24/18 16:00 Mechanical Ventilator Mechanical Ventilator 05/24/18 16:00 55 05/24/18 16:00 84 25 181/42 (88) 100 05/24/18 16:00 181/42 05/24/18 16:00 100 05/24/18 15:30 72 25 129/35 (66) 100 05/24/18 15:15 78 25 125/38 (67) 100 05/24/18 15:00 114/40 05/24/18 15:00 81 25 121/30 (60) 100 05/24/18 14:45 80 25 80/29 (46) 100 05/24/18 14:41 73 25 60 05/24/18 14:30 75 25 191/39 (89) 100 05/24/18 14:15 91 25 175/39 (84) 100 05/24/18 14:00 191/39 05/24/18 14:00 92 25 191/39 (89) 100 05/24/18 13:45 92 25 115/31 (59) 100 05/24/18 13:30 92 25 99/18 (45) 100 75 05/24/18 13:15 92 25 101/18 (45) 100 89 05/24/18 13:12 79/15 05/24/18 13:00 97 25 97/24 (48) 100 05/24/18 13:00 79/15 05/24/18 12:53 97 35 60 05/24/18 12:45 92 25 97/24 (48) 100 05/24/18 12:30 86 28 120/30 (60) 100 05/24/18 12:26 75 16 98 05/24/18 12:15 76 28 99/56 (70) 100 05/24/18 12:00 73 05/24/18 12:00 75 28 136/28 (64) 100 05/24/18 12:00 98.4 05/24/18 12:00 Mechanical Ventilator Mechanical Ventilator 05/24/18 12:00 55 05/24/18 12:00 136/28 05/24/18 11:45 78 28 136/28 (64) 100 Intake and Output 05/24/18 05/25/18 19:00 07:00 Intake Total 1703.06 ml 1479.14 ml Output Total 720 ml 320 ml Balance 983.06 ml 1159.14 ml IV Total 1703.06 ml 879.14 ml Tube Feeding 0 ml Blood Product 600 ml Output Urine Total 0 ml 0 ml Drainage Total 20 ml 220 ml Hemodialysis UF 500 ml Other 200 ml 100 ml Laboratory Tests 05/25/18 05:20: White Blood Count 9.2#, Red Blood Count 3.40L, Hemoglobin 9.8#L, Hematocrit 29.2 #L, Mean Corpuscular Volume 86, Mean Corpuscular Hemoglobin 28.9, Mean Corpuscular Hemoglobin Concent 33.6, Red Cell Distribution Width 14.8, Platelet Count 163, Mean Platelet Volume 9.2, Neutrophils (%) (Auto) , Lymphocytes (%) ( Auto) , Monocytes (%) (Auto) , Eosinophils (%) (Auto) , Basophils (%) (Auto) , Differential Total Cells Counted 100, Neutrophils % (Manual) 86H, Lymphocytes % (Manual) 2L, Monocytes % (Manual) 8, Eosinophils % (Manual) 0, Basophils % ( Manual) 0, Band Neutrophils 4, Nucleated Red Blood Cells 3, Platelet Estimate Adequate, Platelet Morphology Normal, Hypochromasia 2+, Anisocytosis 1+, Prothrombin Time 16.8H, Prothromb Time International Ratio 1.6H, Activated Partial Thromboplast Time 47H, Sodium Level 127L, Potassium Level 3.3L, Chloride Level 88L, Carbon Dioxide Level 21, Anion Gap 18H, Blood Urea Nitrogen 77H, Creatinine 5.2H, Estimat Glomerular Filtration Rate , Glucose Level 223H, Lactic Acid Level 3.30H, Calcium Level 7.5L, Total Bilirubin 0.9, Aspartate Amino Transf (AST/SGOT) 51H, Alanine Aminotransferase (ALT/SGPT) 26, Alkaline Phosphatase 140H, Total Protein 4.4L, Albumin 1.1L, Globulin 3.3, Albumin/ Globulin Ratio 0.3L 05/25/18 10:20: Arterial Blood pH 7.431, Arterial Blood Partial Pressure CO2 29.8L, Arterial Blood Partial Pressure O2 93.5, Arterial Blood HCO3 19.4L, Arterial Blood Oxygen Saturation 96.6, Arterial Blood Base Excess -4.0L, Luiz Test Positive Height (Feet): 5 Height (Inches): 4.00 Weight (Pounds): 198 General Appearance: lethargic EENT: normal ENT inspection Neck: supple Cardiovascular: normal rate Respiratory/Chest: decreased breath sounds Abdomen: normal bowel sounds, non tender, soft Extremities: non-tender Martín Campos MD May 25, 2018 11:33
--- NOTE | 2018-05-25 11:59 | Infectious Diseases Prog Note ---
"Assessment/Plan Assessment/Plan antibiotics : vancomycin iv, zosyn, micafungin A 1. serratia | enterobacter sepsis 2. gram positive UTI 3. diabetes mellitus 4. hypertension 5. renal failure on dialysis 6. leucocytosis resolved 7. enterobacter | citrobacter | serratia | bacteroides | fungal peritonitis 8. small bowel perforation 9. anastomotic leak P 1. continue vancomycin iv, micafungin 2. d/c zosyn 3. start cefepime, levoquin, flagyl 4. will follow up cultures Subjective ROS Limited/Unobtainable: Yes Allergies: Coded Allergies: No Known Allergies (Unverified , 11/12/12) Objective Vital Signs Last 24 Hour Vital Signs Date Time Temp Pulse Resp B/P (MAP) Pulse Ox O2 Delivery O2 Flow Rate FiO2 05/25/18 11:00 80 29 171/44 (86) 100 05/25/18 10:40 98 05/25/18 10:30 67 25 45 05/25/18 10:30 75 26 116/26 (56) 100 05/25/18 10:00 70 25 153/43 (79) 100 05/25/18 09:38 157/43 05/25/18 09:30 77 25 137/38 (71) 100 05/25/18 09:00 86 24 120/38 (65) 100 05/25/18 08:34 69 23 45 05/25/18 08:30 59 21 138/32 (67) 100 05/25/18 08:00 Mechanical Ventilator Mechanical Ventilator 05/25/18 08:00 98.9 83 30 159/46 (83) 100 05/25/18 08:00 45 05/25/18 07:30 62 28 129/36 (67) 100 05/25/18 07:00 85 30 152/42 (78) 100 05/25/18 06:43 72 26 45 05/25/18 06:04 141/39 05/25/18 06:00 65 26 126/32 (63) 100 05/25/18 05:30 62 26 137/41 (73) 100 05/25/18 05:29 68 24 45 05/25/18 05:00 62 28 130/38 (68) 100 05/25/18 05:00 126/34 05/25/18 04:30 63 28 126/34 (64) 100 05/25/18 04:00 142/29 1/5/19 04:00 45 05/25/18 04:00 Mechanical Ventilator Mechanical Ventilator 05/25/18 04:00 98.8 76 31 142/29 (66) 29 05/25/18 03:30 90 31 158/78 (104) 100 05/25/18 03:22 74 24 45 05/25/18 03:00 73 31 88/27 (47) 100 05/25/18 03:00 88/27 05/25/18 02:30 83 31 167/52 (90) 100 05/25/18 02:00 124/34 05/25/18 02:00 62 29 124/34 (64) 100 05/25/18 01:30 78 25 45 05/25/18 01:30 62 29 126/27 (60) 100 05/25/18 01:18 137/37 05/25/18 01:00 78 29 137/37 (70) 100 05/25/18 00:30 64 28 117/38 (64) 100 05/25/18 00:00 Mechanical Ventilator Mechanical Ventilator 05/25/18 00:00 98.4 64 28 112/25 (54) 100 05/25/18 00:00 45 05/25/18 00:00 112/25 05/24/18 23:30 74 28 97/31 (53) 100 05/24/18 23:00 74 27 118/28 (58) 100 05/24/18 23:00 118/28 05/24/18 22:56 81 32 45 05/24/18 22:30 84 32 151/39 (76) 100 05/24/18 22:00 63 23 106/40 (62) 100 05/24/18 22:00 106/40 05/24/18 21:30 70 23 83/23 (43) 100 05/24/18 21:00 139/41 05/24/18 21:00 69 23 139/41 (73) 100 05/24/18 20:39 64 24 45 05/24/18 20:30 68 23 128/35 (66) 100 05/24/18 20:00 Mechanical Ventilator Mechanical Ventilator 05/24/18 20:00 45 05/24/18 20:00 98.8 68 23 128/29 (62) 100 05/24/18 20:00 68 05/24/18 20:00 128/35 05/24/18 19:29 65 21 60 05/24/18 19:00 124/29 05/24/18 19:00 71 23 148/36 (73) 100 05/24/18 18:45 68 23 131/34 (66) 100 05/24/18 18:30 69 23 135/30 (65) 100 05/24/18 18:15 71 23 126/37 (66) 100 05/24/18 18:05 81/24 05/24/18 18:00 98.9 72 23 119/37 (64) 100 05/24/18 18:00 119/37 05/24/18 17:45 73 23 81/24 (43) 100 05/24/18 17:30 73 23 119/33 (61) 100 05/24/18 17:15 75 23 118/42 (67) 100 05/24/18 17:10 75 26 60 05/24/18 17:00 119/33 05/24/18 17:00 75 24 114/33 (60) 100 05/24/18 16:45 75 24 114/33 (60) 100 05/24/18 16:30 79 23 123/31 (61) 100 05/24/18 16:15 98.8 79 23 105/35 (58) 100 05/24/18 16:00 Mechanical Ventilator Mechanical Ventilator 05/24/18 16:00 55 05/24/18 16:00 84 25 181/42 (88) 100 05/24/18 16:00 181/42 05/24/18 16:00 100 05/24/18 15:30 72 25 129/35 (66) 100 05/24/18 15:15 78 25 125/38 (67) 100 05/24/18 15:00 114/40 05/24/18 15:00 81 25 121/30 (60) 100 05/24/18 14:45 80 25 80/29 (46) 100 05/24/18 14:41 73 25 60 05/24/18 14:30 75 25 191/39 (89) 100 05/24/18 14:15 91 25 175/39 (84) 100 05/24/18 14:00 191/39 05/24/18 14:00 92 25 191/39 (89) 100 05/24/18 13:45 92 25 115/31 (59) 100 05/24/18 13:30 92 25 99/18 (45) 100 75 05/24/18 13:15 92 25 101/18 (45) 100 89 05/24/18 13:12 79/15 05/24/18 13:00 97 25 97/24 (48) 100 05/24/18 13:00 79/15 05/24/18 12:53 97 35 60 05/24/18 12:45 92 25 97/24 (48) 100 05/24/18 12:30 86 28 120/30 (60) 100 05/24/18 12:26 75 16 98 05/24/18 12:15 76 28 99/56 (70) 100 05/24/18 12:00 73 05/24/18 12:00 75 28 136/28 (64) 100 05/24/18 12:00 98.4 05/24/18 12:00 Mechanical Ventilator Mechanical Ventilator 05/24/18 12:00 55 05/24/18 12:00 136/28 Height (Feet): 5 Height (Inches): 4.00 Weight (Pounds): 198 HEENT: other - intubated Respiratory/Chest: lungs clear Cardiovascular: normal rate, regular rhythm, no gallop/murmur Abdomen: soft, non tender, other - VAC, VELVET drain Extremities: other - + edema, left subclavian catheter and right groin catheter Microbiology Date/Time Source Procedure Growth Status 05/22/18 12:00 Abdomen Gram Stain - Final Resulted 05/22/18 12:00 Wound Culture - Preliminary Enterobacter Aerogenes YEAST Resulted Laboratory Tests Test 05/25/18 05:20 05/25/18 10:20 White Blood Count 9.2 K/UL (4.8-10.8) # Red Blood Count 3.40 M/UL (4.70-6.10) L Hemoglobin 9.8 G/DL (14.2-18.0) #L Hematocrit 29.2 % (42.0-52.0) #L Mean Corpuscular Volume 86 FL (80-99) Mean Corpuscular Hemoglobin 28.9 PG (27.0-31.0) Mean Corpuscular Hemoglobin Concent 33.6 G/DL (32.0-36.0) Red Cell Distribution Width 14.8 % (11.6-14.8) Platelet Count 163 K/UL (150-450) Mean Platelet Volume 9.2 FL (6.5-10.1) Neutrophils (%) (Auto) % (45.0-75.0) Lymphocytes (%) (Auto) % (20.0-45.0) Monocytes (%) (Auto) % (1.0-10.0) Eosinophils (%) (Auto) % (0.0-3.0) Basophils (%) (Auto) % (0.0-2.0) Differential Total Cells Counted 100 Neutrophils % (Manual) 86 % (45-75) H Lymphocytes % (Manual) 2 % (20-45) L Monocytes % (Manual) 8 % (1-10) Eosinophils % (Manual) 0 % (0-3) Basophils % (Manual) 0 % (0-2) Band Neutrophils 4 % (0-8) Nucleated Red Blood Cells 3 /100 WBC Platelet Estimate Adequate Platelet Morphology Normal Hypochromasia 2+ Anisocytosis 1+ Prothrombin Time 16.8 SEC (9.30-11.50) H Prothromb Time International Ratio 1.6 (0.9-1.1) H Activated Partial Thromboplast Time 47 SEC (23-33) H Sodium Level 127 MMOL/L (136-145) L Potassium Level 3.3 MMOL/L (3.5-5.1) L Chloride Level 88 MMOL/L (98-107) L Carbon Dioxide Level 21 MMOL/L (21-32) Anion Gap 18 mmol/L (5-15) H Blood Urea Nitrogen 77 mg/dL (7-18) H Creatinine 5.2 MG/DL (0.55-1.30) H Estimat Glomerular Filtration Rate mL/min (>60) Glucose Level 223 MG/DL (74-106) H Lactic Acid Level 3.30 mmol/L (0.4-2.0) H Calcium Level 7.5 MG/DL (8.5-10.1) L Total Bilirubin 0.9 MG/DL (0.2-1.0) Aspartate Amino Transf (AST/SGOT) 51 U/L (15-37) H Alanine Aminotransferase (ALT/SGPT) 26 U/L (12-78) Alkaline Phosphatase 140 U/L (46-116) H Total Protein 4.4 G/DL (6.4-8.2) L Albumin 1.1 G/DL (3.4-5.0) L Globulin 3.3 g/dL Albumin/Globulin Ratio 0.3 (1.0-2.7) L Arterial Blood pH 7.431 (7.350-7.450) Arterial Blood Partial Pressure CO2 29.8 mmHg (35.0-45.0) L Arterial Blood Partial Pressure O2 93.5 mmHg (75.0-100.0) Arterial Blood HCO3 19.4 mmol/L (22.0-26.0) L Arterial Blood Oxygen Saturation 96.6 % (95-100) Arterial Blood Base Excess -4.0 (-2-2) L Luiz Test Positive Current Medications Medications (Trade) Dose Ordered Sig/Min Route PRN Reason Start Time Stop Time Status Last Admin Dose Admin Acetaminophen (Tylenol) 650 mg Q4H PRN ORAL Mild Pain/Temp > 100.5 05/12/18 15:30 06/09/18 15:29 05/20/18 20:53 Acetaminophen (Tylenol) 650 mg Q4H PRN RECTAL Mild Pain/Temp > 100.5 05/21/18 12:00 06/20/18 11:59 Amiodarone HCl 900 mg/Dextrose 500 ml @ 0 mls/hr Q24H IV 05/25/18 07:00 05/26/18 06:59 05/25/18 08:01 Chlorhexidine Gluconate (Tatyana-Hex 2%) 1 applic DAILY@2000 TOPIC 05/12/18 20:00 06/11/18 19:59 05/24/18 20:20 Dextrose 1,000 ml @ 0 mls/hr Q24H PRN IV PN interrupted or unavailable 05/25/18 21:00 06/24/18 20:59 Dextrose (Dextrose 50%) 25 ml Q30M PRN IV Hypoglycemia 05/24/18 16:45 06/23/18 16:44 Dextrose (Dextrose 50%) 50 ml Q30M PRN IV Hypoglycemia 05/24/18 16:45 06/23/18 16:44 Fat Emulsion Intravenous 250 ml/Amino Acids/ Electrolytes/ Dextrose 2,170 ml @ 90.417 mls/ hr Q24H IV 05/25/18 21:00 06/24/18 20:59 Hydrocortisone (Solu-CORTEF) 75 mg EVERY 8 HOURS IV 05/25/18 14:00 06/20/18 21:59 Hydromorphone HCl (Dilaudid) 1 mg Q2H PRN IVP Severe Pain (Pain Scale 7-10) 05/24/18 09:45 05/29/18 09:44 05/24/18 16:15 Insulin Aspart (NovoLOG) EVERY 4 HOURS SUBQ 05/24/18 17:00 06/15/18 20:59 05/25/18 09:32 Insulin Detemir (Levemir) 6 units BID SUBQ 05/24/18 18:00 06/23/18 17:59 05/25/18 09:31 Lorazepam (Ativan 2mg/ml 1ml) 1 mg Q6H PRN IV For Anxiety 05/19/18 08:15 05/26/18 08:14 05/21/18 12:53 Micafungin Sodium 100 mg/Sodium Chloride 110 ml @ 110 mls/hr Q24H IVPB 05/21/18 12:00 05/28/18 11:59 05/24/18 12:39 Midodrine (Pro-Amatine) 2.5 mg THREE TIMES A DAY PRN ORAL for bp below 100 syst 05/19/18 10:15 06/14/18 12:59 Norepinephrine Bitartrate 8 mg/ Dextrose 500 ml @ 0 mls/hr Q24H IV 05/21/18 14:30 06/20/18 14:29 05/25/18 09:38 Ondansetron HCl (Zofran) 4 mg Q6H PRN IVP Nausea & Vomiting 05/15/18 23:30 06/14/18 23:29 Pantoprazole (Protonix) 40 mg EVERY 12 HOURS IVP 05/12/18 21:00 06/10/18 20:59 05/25/18 09:30 Phytonadione (Vitamin K) 10 mg ONCE A WEEK SUBQ 05/25/18 21:00 06/24/18 20:59 Piperacillin Sod/ Tazobactam Sod 2.25 gm/Dextrose 55 ml @ 110 mls/hr Q8HR IVPB 05/19/18 12:00 05/28/18 11:59 05/25/18 06:04 Vancomycin HCl (Vanco rx to dose) 1 ea DAILY PRN MISC Per rx protocol 05/22/18 11:45 06/21/18 11:44 Vasopressin 100 units/Sodium Chloride 100 ml @ 0 mls/hr Q24H IV 05/22/18 11:30 06/21/18 11:29 05/23/18 17:47 Martha Dupree MD May 25, 2018 11:59"
[2018-05-25] MEDS: Micafungin 100 MG in NS 110 ML IVPB SCH (12:29)
--- NOTE | 2018-05-25 12:43 | Nephrology Progress Note ---
Assessment/Plan Problem List: (1) ESRD (end stage renal disease) on dialysis (2) Perforated bowel (3) Hyponatremia (4) Major depression (5) Nausea & vomiting (6) H/O abdominal surgery Assessment: recent (7) Shock Assessment patient on 2 pressors recent abdominal surgery hemodynamically stablized over night Presents with CHF and Low Na ESRD ACS DM HTN h/o GI bleed Depression Plan HD 05/24 done transfused 2 units- to OR this afternoon start TPN per Dr Clarke request doing poorly On pressor on steroids on Midodrine weaning as possible insulin for high BS hold dig , check levels, resume as needed no NGT ,On Vent Psych started Zoloft PO ? Will DC ZOLOFT. Has abd surgery 05/15 Perforated bowel graft clotted , has a femoral felice right HOLD ALL MIND ALTERING MEDS - DC all po meds FLUID CHALLENGE pressors as needed BP HR Pain control discussed with RN and Dr Jones IV protonix Subjective ROS Limited/Unobtainable: Yes Objective Objective Last 24 Hour Vital Signs Date Time Temp Pulse Resp B/P (MAP) Pulse Ox O2 Delivery O2 Flow Rate FiO2 05/25/18 12:00 Mechanical Ventilator Mechanical Ventilator 05/25/18 12:00 45 05/25/18 11:00 80 29 171/44 (86) 100 05/25/18 10:40 98 05/25/18 10:30 67 25 45 05/25/18 10:30 75 26 116/26 (56) 100 05/25/18 10:00 70 25 153/43 (79) 100 05/25/18 09:38 157/43 05/25/18 09:30 77 25 137/38 (71) 100 05/25/18 09:00 86 24 120/38 (65) 100 05/25/18 08:34 69 23 45 05/25/18 08:30 59 21 138/32 (67) 100 05/25/18 08:00 Mechanical Ventilator Mechanical Ventilator 05/25/18 08:00 98.9 83 30 159/46 (83) 100 05/25/18 08:00 45 05/25/18 07:30 62 28 129/36 (67) 100 05/25/18 07:27 63 05/25/18 07:00 85 30 152/42 (78) 100 05/25/18 06:43 72 26 45 1/5/19 06:04 141/39 05/25/18 06:00 65 26 126/32 (63) 100 05/25/18 05:30 62 26 137/41 (73) 100 05/25/18 05:29 68 24 45 05/25/18 05:00 62 28 130/38 (68) 100 05/25/18 05:00 126/34 05/25/18 04:30 63 28 126/34 (64) 100 05/25/18 04:00 142/29 05/25/18 04:00 45 05/25/18 04:00 Mechanical Ventilator Mechanical Ventilator 05/25/18 04:00 98.8 76 31 142/29 (66) 29 05/25/18 03:30 90 31 158/78 (104) 100 05/25/18 03:22 74 24 45 05/25/18 03:00 73 31 88/27 (47) 100 05/25/18 03:00 88/27 05/25/18 02:30 83 31 167/52 (90) 100 05/25/18 02:00 124/34 05/25/18 02:00 62 29 124/34 (64) 100 05/25/18 01:30 78 25 45 05/25/18 01:30 62 29 126/27 (60) 100 05/25/18 01:18 137/37 05/25/18 01:00 78 29 137/37 (70) 100 05/25/18 00:30 64 28 117/38 (64) 100 05/25/18 00:00 Mechanical Ventilator Mechanical Ventilator 05/25/18 00:00 98.4 64 28 112/25 (54) 100 05/25/18 00:00 45 05/25/18 00:00 112/25 05/24/18 23:30 74 28 97/31 (53) 100 05/24/18 23:00 74 27 118/28 (58) 100 05/24/18 23:00 118/28 05/24/18 22:56 81 32 45 05/24/18 22:30 84 32 151/39 (76) 100 05/24/18 22:00 63 23 106/40 (62) 100 05/24/18 22:00 106/40 05/24/18 21:30 70 23 83/23 (43) 100 05/24/18 21:00 139/41 05/24/18 21:00 69 23 139/41 (73) 100 05/24/18 20:39 64 24 45 05/24/18 20:30 68 23 128/35 (66) 100 05/24/18 20:00 Mechanical Ventilator Mechanical Ventilator 05/24/18 20:00 45 05/24/18 20:00 98.8 68 23 128/29 (62) 100 05/24/18 20:00 68 05/24/18 20:00 128/35 05/24/18 19:29 65 21 60 05/24/18 19:00 124/29 05/24/18 19:00 71 23 148/36 (73) 100 05/24/18 18:45 68 23 131/34 (66) 100 05/24/18 18:30 69 23 135/30 (65) 100 05/24/18 18:15 71 23 126/37 (66) 100 05/24/18 18:05 81/24 05/24/18 18:00 98.9 72 23 119/37 (64) 100 05/24/18 18:00 119/37 05/24/18 17:45 73 23 81/24 (43) 100 05/24/18 17:30 73 23 119/33 (61) 100 05/24/18 17:15 75 23 118/42 (67) 100 05/24/18 17:10 75 26 60 05/24/18 17:00 119/33 05/24/18 17:00 75 24 114/33 (60) 100 05/24/18 16:45 75 24 114/33 (60) 100 05/24/18 16:30 79 23 123/31 (61) 100 05/24/18 16:15 98.8 79 23 105/35 (58) 100 05/24/18 16:00 Mechanical Ventilator Mechanical Ventilator 05/24/18 16:00 55 05/24/18 16:00 84 25 181/42 (88) 100 05/24/18 16:00 181/42 05/24/18 16:00 100 05/24/18 15:30 72 25 129/35 (66) 100 05/24/18 15:15 78 25 125/38 (67) 100 05/24/18 15:00 114/40 05/24/18 15:00 81 25 121/30 (60) 100 05/24/18 14:45 80 25 80/29 (46) 100 05/24/18 14:41 73 25 60 05/24/18 14:30 75 25 191/39 (89) 100 05/24/18 14:15 91 25 175/39 (84) 100 05/24/18 14:00 191/39 05/24/18 14:00 92 25 191/39 (89) 100 05/24/18 13:45 92 25 115/31 (59) 100 05/24/18 13:30 92 25 99/18 (45) 100 75 05/24/18 13:15 92 25 101/18 (45) 100 89 05/24/18 13:12 79/15 05/24/18 13:00 97 25 97/24 (48) 100 05/24/18 13:00 79/15 05/24/18 12:53 97 35 60 05/24/18 12:45 92 25 97/24 (48) 100 Intake and Output 05/24/18 05/25/18 19:00 07:00 Intake Total 1703.06 ml 1535.43 ml Output Total 720 ml 320 ml Balance 983.06 ml 1215.43 ml IV Total 1703.06 ml 935.43 ml Tube Feeding 0 ml Blood Product 600 ml Output Urine Total 0 ml 0 ml Drainage Total 20 ml 220 ml Hemodialysis UF 500 ml Other 200 ml 100 ml Laboratory Tests 05/25/18 05:20: White Blood Count 9.2#, Red Blood Count 3.40L, Hemoglobin 9.8#L, Hematocrit 29.2 #L, Mean Corpuscular Volume 86, Mean Corpuscular Hemoglobin 28.9, Mean Corpuscular Hemoglobin Concent 33.6, Red Cell Distribution Width 14.8, Platelet Count 163, Mean Platelet Volume 9.2, Neutrophils (%) (Auto) , Lymphocytes (%) ( Auto) , Monocytes (%) (Auto) , Eosinophils (%) (Auto) , Basophils (%) (Auto) , Differential Total Cells Counted 100, Neutrophils % (Manual) 86H, Lymphocytes % (Manual) 2L, Monocytes % (Manual) 8, Eosinophils % (Manual) 0, Basophils % ( Manual) 0, Band Neutrophils 4, Nucleated Red Blood Cells 3, Platelet Estimate Adequate, Platelet Morphology Normal, Hypochromasia 2+, Anisocytosis 1+, Prothrombin Time 16.8H, Prothromb Time International Ratio 1.6H, Activated Partial Thromboplast Time 47H, Sodium Level 127L, Potassium Level 3.3L, Chloride Level 88L, Carbon Dioxide Level 21, Anion Gap 18H, Blood Urea Nitrogen 77H, Creatinine 5.2H, Estimat Glomerular Filtration Rate , Glucose Level 223H, Lactic Acid Level 3.30H, Calcium Level 7.5L, Total Bilirubin 0.9, Aspartate Amino Transf (AST/SGOT) 51H, Alanine Aminotransferase (ALT/SGPT) 26, Alkaline Phosphatase 140H, Total Protein 4.4L, Albumin 1.1L, Globulin 3.3, Albumin/ Globulin Ratio 0.3L 05/25/18 10:20: Arterial Blood pH 7.431, Arterial Blood Partial Pressure CO2 29.8L, Arterial Blood Partial Pressure O2 93.5, Arterial Blood HCO3 19.4L, Arterial Blood Oxygen Saturation 96.6, Arterial Blood Base Excess -4.0L, Luiz Test Positive Height (Feet): 5 Height (Inches): 4.00 Weight (Pounds): 198 General Appearance: no apparent distress EENT: other - vented Cardiovascular: normal rate Respiratory/Chest: decreased breath sounds Abdomen: other - silent Objective no change Maurilio Arroyo MD May 25, 2018 12:43
--- NOTE | 2018-05-25 12:52 | NUR ---
NURSE NOTES: Turned and repositioned pt. Oral care done. Dr Stephenson here to see the patient. He ordered to titrate down Levophed to keep SBP >100. Order noted. Will titrate down Levophed as per order.
--- NOTE | 2018-05-25 13:00 | Cardiac Electrophysiology PN ---
Assessment/Plan Assessment/Plan 1. Atrial fib/flutter with RVR In SR on Amio drip. Can't switch to po as NPO and unpredictable absorption in view of intestinal surgeries. Last Dig level 1.9 on 05/21/18 but off Dig 2. Chest pain. No MD. EKG showed old inferior and anterior wall MD, but no ischemia. ECHO normal LV function 3. End-stage renal disease, on hemodialysis per Dr. Arroyo. 4. Septic shock, on Levophed today. Off other pressors Dr Chandler reevaluated. 2D Echo EF 60% and PA pressure 63 ? PE. DD 35.2. Unstable for chest CT angio. Started on heparin drip for possible PE Off heparin drip now for surgery 5. History of kidney stones. 6. History of psychiatric problems, dementia. 7. Hx of lap matthew. S/P SB resection 05/15/18 with drain Has yellowish discharge from incision. On iv Abx per ID S/P redo surgery 05/23/18 that showed Anastomotic leak. Going back to OR Sunday by DR Chandler for wound closure 8. Respiratory failure, intubated on the vent. SAW RN Subjective Subjective In ICU on Amiodarone drip 0.5 mg and Levophed drip 24 mcg Off Heparin drip until surgery done Sunday On the Vent. Still draining from incision Objective Last 24 Hour Vital Signs Date Time Temp Pulse Resp B/P (MAP) Pulse Ox O2 Delivery O2 Flow Rate FiO2 05/25/18 12:00 Mechanical Ventilator Mechanical Ventilator 05/25/18 12:00 45 05/25/18 11:00 80 29 171/44 (86) 100 05/25/18 10:40 98 05/25/18 10:30 67 25 45 05/25/18 10:30 75 26 116/26 (56) 100 05/25/18 10:00 70 25 153/43 (79) 100 05/25/18 09:38 157/43 05/25/18 09:30 77 25 137/38 (71) 100 05/25/18 09:00 86 24 120/38 (65) 100 05/25/18 08:34 69 23 45 05/25/18 08:30 59 21 138/32 (67) 100 05/25/18 08:00 Mechanical Ventilator Mechanical Ventilator 05/25/18 08:00 98.9 83 30 159/46 (83) 100 05/25/18 08:00 45 05/25/18 07:30 62 28 129/36 (67) 100 05/25/18 07:27 63 05/25/18 07:00 85 30 152/42 (78) 100 05/25/18 06:43 72 26 45 05/25/18 06:04 141/39 05/25/18 06:00 65 26 126/32 (63) 100 05/25/18 05:30 62 26 137/41 (73) 100 05/25/18 05:29 68 24 45 05/25/18 05:00 62 28 130/38 (68) 100 05/25/18 05:00 126/34 05/25/18 04:30 63 28 126/34 (64) 100 05/25/18 04:00 142/29 05/25/18 04:00 45 05/25/18 04:00 Mechanical Ventilator Mechanical Ventilator 05/25/18 04:00 98.8 76 31 142/29 (66) 29 05/25/18 03:30 90 31 158/78 (104) 100 05/25/18 03:22 74 24 45 05/25/18 03:00 73 31 88/27 (47) 100 05/25/18 03:00 88/27 05/25/18 02:30 83 31 167/52 (90) 100 05/25/18 02:00 124/34 05/25/18 02:00 62 29 124/34 (64) 100 05/25/18 01:30 78 25 45 05/25/18 01:30 62 29 126/27 (60) 100 05/25/18 01:18 137/37 05/25/18 01:00 78 29 137/37 (70) 100 05/25/18 00:30 64 28 117/38 (64) 100 05/25/18 00:00 Mechanical Ventilator Mechanical Ventilator 05/25/18 00:00 98.4 64 28 112/25 (54) 100 05/25/18 00:00 45 05/25/18 00:00 112/25 05/24/18 23:30 74 28 97/31 (53) 100 05/24/18 23:00 74 27 118/28 (58) 100 05/24/18 23:00 118/28 05/24/18 22:56 81 32 45 05/24/18 22:30 84 32 151/39 (76) 100 05/24/18 22:00 63 23 106/40 (62) 100 05/24/18 22:00 106/40 05/24/18 21:30 70 23 83/23 (43) 100 05/24/18 21:00 139/41 05/24/18 21:00 69 23 139/41 (73) 100 05/24/18 20:39 64 24 45 05/24/18 20:30 68 23 128/35 (66) 100 05/24/18 20:00 Mechanical Ventilator Mechanical Ventilator 05/24/18 20:00 45 05/24/18 20:00 98.8 68 23 128/29 (62) 100 05/24/18 20:00 68 05/24/18 20:00 128/35 05/24/18 19:29 65 21 60 05/24/18 19:00 124/29 05/24/18 19:00 71 23 148/36 (73) 100 05/24/18 18:45 68 23 131/34 (66) 100 05/24/18 18:30 69 23 135/30 (65) 100 05/24/18 18:15 71 23 126/37 (66) 100 05/24/18 18:05 81/24 05/24/18 18:00 98.9 72 23 119/37 (64) 100 05/24/18 18:00 119/37 05/24/18 17:45 73 23 81/24 (43) 100 05/24/18 17:30 73 23 119/33 (61) 100 05/24/18 17:15 75 23 118/42 (67) 100 05/24/18 17:10 75 26 60 05/24/18 17:00 119/33 05/24/18 17:00 75 24 114/33 (60) 100 05/24/18 16:45 75 24 114/33 (60) 100 05/24/18 16:30 79 23 123/31 (61) 100 05/24/18 16:15 98.8 79 23 105/35 (58) 100 05/24/18 16:00 Mechanical Ventilator Mechanical Ventilator 05/24/18 16:00 55 05/24/18 16:00 84 25 181/42 (88) 100 05/24/18 16:00 181/42 05/24/18 16:00 100 05/24/18 15:30 72 25 129/35 (66) 100 05/24/18 15:15 78 25 125/38 (67) 100 05/24/18 15:00 114/40 05/24/18 15:00 81 25 121/30 (60) 100 05/24/18 14:45 80 25 80/29 (46) 100 05/24/18 14:41 73 25 60 05/24/18 14:30 75 25 191/39 (89) 100 05/24/18 14:15 91 25 175/39 (84) 100 05/24/18 14:00 191/39 05/24/18 14:00 92 25 191/39 (89) 100 05/24/18 13:45 92 25 115/31 (59) 100 05/24/18 13:30 92 25 99/18 (45) 100 75 05/24/18 13:15 92 25 101/18 (45) 100 89 05/24/18 13:12 79/15 05/24/18 13:00 97 25 97/24 (48) 100 05/24/18 13:00 79/15 Intake and Output 05/24/18 05/25/18 19:00 07:00 Intake Total 1703.06 ml 1535.43 ml Output Total 720 ml 320 ml Balance 983.06 ml 1215.43 ml IV Total 1703.06 ml 935.43 ml Tube Feeding 0 ml Blood Product 600 ml Output Urine Total 0 ml 0 ml Drainage Total 20 ml 220 ml Hemodialysis UF 500 ml Other 200 ml 100 ml Laboratory Tests Test 05/25/18 05:20 05/25/18 10:20 White Blood Count 9.2 K/UL (4.8-10.8) # Red Blood Count 3.40 M/UL (4.70-6.10) L Hemoglobin 9.8 G/DL (14.2-18.0) #L Hematocrit 29.2 % (42.0-52.0) #L Mean Corpuscular Volume 86 FL (80-99) Mean Corpuscular Hemoglobin 28.9 PG (27.0-31.0) Mean Corpuscular Hemoglobin Concent 33.6 G/DL (32.0-36.0) Red Cell Distribution Width 14.8 % (11.6-14.8) Platelet Count 163 K/UL (150-450) Mean Platelet Volume 9.2 FL (6.5-10.1) Neutrophils (%) (Auto) % (45.0-75.0) Lymphocytes (%) (Auto) % (20.0-45.0) Monocytes (%) (Auto) % (1.0-10.0) Eosinophils (%) (Auto) % (0.0-3.0) Basophils (%) (Auto) % (0.0-2.0) Differential Total Cells Counted 100 Neutrophils % (Manual) 86 % (45-75) H Lymphocytes % (Manual) 2 % (20-45) L Monocytes % (Manual) 8 % (1-10) Eosinophils % (Manual) 0 % (0-3) Basophils % (Manual) 0 % (0-2) Band Neutrophils 4 % (0-8) Nucleated Red Blood Cells 3 /100 WBC Platelet Estimate Adequate Platelet Morphology Normal Hypochromasia 2+ Anisocytosis 1+ Prothrombin Time 16.8 SEC (9.30-11.50) H Prothromb Time International Ratio 1.6 (0.9-1.1) H Activated Partial Thromboplast Time 47 SEC (23-33) H Sodium Level 127 MMOL/L (136-145) L Potassium Level 3.3 MMOL/L (3.5-5.1) L Chloride Level 88 MMOL/L (98-107) L Carbon Dioxide Level 21 MMOL/L (21-32) Anion Gap 18 mmol/L (5-15) H Blood Urea Nitrogen 77 mg/dL (7-18) H Creatinine 5.2 MG/DL (0.55-1.30) H Estimat Glomerular Filtration Rate mL/min (>60) Glucose Level 223 MG/DL (74-106) H Lactic Acid Level 3.30 mmol/L (0.4-2.0) H Calcium Level 7.5 MG/DL (8.5-10.1) L Total Bilirubin 0.9 MG/DL (0.2-1.0) Aspartate Amino Transf (AST/SGOT) 51 U/L (15-37) H Alanine Aminotransferase (ALT/SGPT) 26 U/L (12-78) Alkaline Phosphatase 140 U/L (46-116) H Total Protein 4.4 G/DL (6.4-8.2) L Albumin 1.1 G/DL (3.4-5.0) L Globulin 3.3 g/dL Albumin/Globulin Ratio 0.3 (1.0-2.7) L Arterial Blood pH 7.431 (7.350-7.450) Arterial Blood Partial Pressure CO2 29.8 mmHg (35.0-45.0) L Arterial Blood Partial Pressure O2 93.5 mmHg (75.0-100.0) Arterial Blood HCO3 19.4 mmol/L (22.0-26.0) L Arterial Blood Oxygen Saturation 96.6 % (95-100) Arterial Blood Base Excess -4.0 (-2-2) L Luiz Test Positive Objective HEENT: Orally intubated Cardiovascular: Sinus tachycardia Respiratory/Chest: Lungs clear, normal breath sounds Abdomen: Post op.with one VELVET drain and incision is covered with WoundVac Extremities: No edema. Right groin dialysis catheter Everett Stephenson MD May 25, 2018 13:00
[2018-05-25] MEDS: Cefepime HCl 2 GM in D5W 55 ML IVPB SCH (13:10)
--- NOTE | 2018-05-25 14:30 | NUR ---
NURSE NOTES: Wound care picture taken and uploaded. Dressing done as per protocol. Turned and repositioned. Pt is on Levophed at 6 mcg/min. Will continue to monitor.
--- NOTE | 2018-05-25 15:49 | Cardiology Report ---
APPROVED REPORT EKG Measurement Heart [id number] Atrial flutter with variable AV block Septal infarct, age undetermined Abnormal ECG
--- NOTE | 2018-05-25 15:49 | Diagnostic Imaging Report ---
Indication: Cough Comparison: 05/21/2018 A single view chest radiograph was obtained. Findings: NG tube is in the midesophagus and should be either removed or advanced much further. A left subclavian line has been place. There is no pneumothorax. The tip of the catheter is in the SVC. New endotracheal tube is noted in good position a few centimeters above the jacy. Heart size is stable. Basilar infiltrates versus atelectasis noted. IMPRESSION: Tubes and lines noted. The nasogastric tube is malpositioned and should be either advanced much further or removed. Patchy basilar infiltrates versus atelectasis
--- NOTE | 2018-05-25 15:49 | Diagnostic Imaging Report ---
Indication: Abdominal pain Comparison: 05/20/2018 Single view of the abdomen obtained Findings: There is an NG tube in the left upper quadrant abdomen within the stomach. Surgical clips in the right side of the abdomen noted. Bowel gas pattern is nonspecific. Previous exam demonstrated multiple small bowel loops distended which is no longer seen. However the abdomen is not fully imaged. IMPRESSION: Nonspecific bowel gas pattern. Nasogastric tube in good position
--- NOTE | 2018-05-25 15:52 | Diagnostic Imaging Report ---
EXAM: XR Chest, 1 View CLINICAL HISTORY: Shortness of breath TECHNIQUE: Frontal view of the chest. COMPARISON: Chest x-rays dated 05/23/18. FINDINGS: Lungs: Subcentimeter atelectasis versus infiltrate in the left lung base/retrocardiac region. Pleural space: Small left pleural effusion, unchanged. Heart: Unremarkable. No cardiomegaly. Mediastinum: Unremarkable. Bones/joints: Unremarkable. Tubes, lines and devices: Endotracheal tube tip 2.6 cm above the jacy. Left arm PICC with catheter tip in the region of the SVC. EKG leads overlie the thorax. IMPRESSION: 1. Small left pleural effusion, unchanged. 2. Subcentimeter atelectasis versus infiltrate in the left lung base/retrocardiac region.
--- NOTE | 2018-05-25 16:30 | NUR ---
NURSE NOTES: PM care given for small amount of mucus stool. Dr Campos is aware. Turned and repositioned pt. Oral care done.
--- NOTE | 2018-05-25 19:26 | NUR ---
NURSE NOTES: Received pt from [facility]. Pt is alert, able to nod and shake head for yes and no questions. Spontaneously opens eyes and withdraws to pain. FLACC 6/10, will admin pain med. Orally intubated with ETT 8.5/24cm at lipline, AC 16/TV 500/Fio2 40%/PEEP +5, SPo2 100%, RR 23. Rhonchi heard in bilateral breath sounds. NSR on security monitor with HR 72, BP 134/36. Pt has a wound vac on abd, 125mmHg, no leakage noted. Moderate to large amt of serosanguineous drainage. VELVET drainage on left lower abd, with minimal serosanguineous drainage. OGT in place and on lower intermittent suction. NPO status maintained. Pt has LFA AC shunt that is not working. Left subclavian TLC running Levophed @5mcg/kg/hr and Amio 0.5mg/hr. Donis catheter on right femoral noted. Pt has a R. cephalic vein occlusion. No BP on rosa. arms with sign noted. Bed locked, alarmed and in lowest position. Will continue plan of care.
--- NOTE | 2018-05-25 19:30 | NUR ---
HAND-OFF: Report given to Michaela Angulo RN.
[2018-05-25] MEDS: Phytonadione 10 mg/mL 1ml amp SUBQ SCH (20:30)
[2018-05-25] MEDS: Dyna-Hex 2% Top Sol 2oz TOPIC SCH (20:30)
--- NOTE | 2018-05-25 20:42 | General Progress Note ---
Assessment/Plan Assessment/Plan # Anemia of chronic disease due to underlying chronic medical issues, multifactorial --> Anemia w/u has been reviewed, reordered and ferritin is >2000 --> Monitor for stability --> trend 10.3-->7.6-->8.9-->10.3-->9.5 --> not bleeding currently # Small bowel perforation, s/p bowel resection, with Gram negative sepsis is on abx In ICU s/p Small bowel resection --> on broad spectrum abx --> on vanc/cefepime as per id--> now changed to zosyn, flagyl, micafungin --> s/p sb resection on 05/15, appreciate surg recs --> on 2 pressors as well,++ vent --> to OR on 05/23, surgeon to access # Hypofibrinoginemia -- potentially cosumptive process given sepsis --> Discussed with RN, Sofie, patient requires 10 units coprecipitate on 05/23, requires emergency transfusion, unable to obtain consent, no family available, thus 2 MD consent obtained # Lower extremity edema with an elevated BNP in a patient with renal failure on hemodialysis. --> on HD per Dr. Arroyo. --> currently has improved # Atrial fib w rvr/flutter, being seen by cards, has converted to sr --> Cardiology is following, appreciate recs, echo was reviewed --> Currently denies any chest pain, completely rule out ACS --> EKG showed old inferior and anterior wall NH, but no ischemia. 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 --> Nephro is following, appreciate recs. HD appeox 3x a week --> On intermittent HD # Respiratory failure on a vent, intubated The time of note does not necessarily reflect the time of encounter Greatly appreciate consultation! Subjective Constitutional: Denies: no symptoms, chills, diaphoresis, fever, malaise, weakness, other HEENT: Denies: no symptoms, eye pain, blurred vision, tearing, double vision, ear pain, ear discharge, nose pain, nose congestion, throat pain, throat swelling, mouth pain, mouth swelling, other Cardiovascular: Denies: no symptoms, chest pain, edema, irregular heart rate, lightheadedness, palpitations, syncope, other Respiratory: Denies: no symptoms, cough, orthopnea, shortness of breath, SOB with excertion, SOB at rest, sputum, stridor, wheezing, other Gastrointestinal/Abdominal: Denies: no symptoms, abdomen distended, abdominal pain, black stools, tarry stools, blood in stool, constipated, diarrhea, difficulty swallowing, nausea, poor appetite, poor fluid intake, rectal bleeding , vomiting, other Genitourinary: Denies: no symptoms, burning, discharge, frequency, flank pain, hematuria, incontinence, pain, urgency, other Neurologic/Psychiatric: Denies: no symptoms, anxiety, depressed, emotional problems, headache, numbness, paresthesia, pre-existing deficit, seizure, tingling, tremors, weakness, other Endocrine: Denies: no symptoms, excessive sweating, flushing, intolerance to cold, intolerance to heat, increased hunger, increased thirst, increased urine, unexplained weight gain, unexplained weight loss, other Hematologic/Lymphatic: Denies: no symptoms, anemia, easy bleeding, easy bruising, other Allergies: Coded Allergies: No Known Allergies (Unverified , 11/12/12) Subjective 05/12: Pt resting in bed. No acute events. H/H stable. On abx. VS stable. 05/13: on pressors, on hep gtt, on steriods, abx, got hd, felice catheter in place : CT-A was negative, hep gtt as per cards, abg reviewed, moaning on exam, on ceftriaxone 05/15 :Pt remains in ICU. Currently undergoing HD. Pt on 2 cardiac drips for elevated Bp. WBC remains elevated. H/H stable. 05/16: s/p sb resection, In ICU s/p Small bowel resection on Amiodarone and Levophed drip. HR around 100. 05/17: Orally intubated on Ac 16, Vt 500, P 5 fio2 30%. Pt continues NPO at this time. Right upper arm and right FA IV sites patent and intact at this time. Amio gtt running 05/18: Pt remains in ICU. Pt for STAT HD. WBC remains elevated, afebrile. 05/19: getting hd periodically, no other events, vent to be weaned, labs reviewed, on dilaudid, ativan and fentanyl per pulm 05/21: prognosis is more guarded, no events to report, no f/c, but on two pressors now, on hep gtt for antonio thrombosis, hd as well 3x/week 05/22: on 2 pressors, seen by cards, renal, ryan drain draining improved, still on vent, converted to sr, on amio gtt, lactic acid downtrending, minimally responsive, on heparin gtt as well for antonio thrombus 05/23: patient to go to OR ginette potential washout, ostomy, and line placement, fibrinogen low, needs cryoprecipirate, will also check inr/pt, cbc reviewed, electrolytes noted 05/24: Patient continues to be intubated on vent. He is s/p exploratory lap with wound washout and wound vac placement. 05/25: Pt is seen in the room, resting in bed. doing well since wound vac change , cbc reviewed, plt 163 Objective Last 24 Hour Vital Signs Date Time Temp Pulse Resp B/P (MAP) Pulse Ox O2 Delivery O2 Flow Rate FiO2 05/25/18 19:21 73 24 45 05/25/18 19:00 78 20 153/47 (82) 100 05/25/18 18:30 61 20 102/25 (50) 100 05/25/18 18:00 67 24 105/24 (51) 100 05/25/18 17:30 76 28 124/28 (60) 100 05/25/18 17:00 82 29 164/36 (78) 98 05/25/18 16:32 76 26 45 05/25/18 16:30 69 27 107/24 (51) 100 05/25/18 16:00 45 05/25/18 16:00 Mechanical Ventilator Mechanical Ventilator 05/25/18 16:00 98.6 81 29 90/26 (47) 100 05/25/18 15:36 80 05/25/18 15:30 80 28 106/25 (52) 99 05/25/18 15:00 82 28 148/40 (76) 100 05/25/18 14:38 72 27 45 05/25/18 14:30 76 28 111/31 (57) 100 05/25/18 14:00 156/35 05/25/18 14:00 76 28 156/35 (75) 100 05/25/18 13:45 76 28 156/35 (75) 100 05/25/18 13:30 82 29 136/39 (71) 100 05/25/18 13:15 80 28 154/36 (75) 100 05/25/18 13:00 72 25 139/38 (71) 100 05/25/18 13:00 139/38 05/25/18 12:35 77 05/25/18 12:31 68 24 45 05/25/18 12:30 76 28 151/40 (77) 100 05/25/18 12:00 Mechanical Ventilator Mechanical Ventilator 05/25/18 12:00 45 05/25/18 12:00 136/29 05/25/18 12:00 98.7 80 29 136/29 (64) 100 05/25/18 11:30 59 23 143/41 (75) 100 05/25/18 11:00 171/44 05/25/18 11:00 80 29 171/44 (86) 100 05/25/18 10:45 58 22 116/26 (56) 100 05/25/18 10:40 98 05/25/18 10:30 67 25 45 05/25/18 10:30 75 26 116/26 (56) 100 05/25/18 10:15 67 24 119/36 (63) 100 05/25/18 10:00 70 25 153/43 (79) 100 05/25/18 10:00 117/27 05/25/18 09:45 76 25 137/38 (71) 100 05/25/18 09:38 157/43 05/25/18 09:30 77 25 137/38 (71) 100 05/25/18 09:00 173/46 05/25/18 09:00 86 24 120/38 (65) 100 05/25/18 08:34 69 23 45 05/25/18 08:30 59 21 138/32 (67) 100 05/25/18 08:01 153/41 05/25/18 08:00 Mechanical Ventilator Mechanical Ventilator 05/25/18 08:00 98.9 83 30 159/46 (83) 100 05/25/18 08:00 45 05/25/18 07:30 62 28 129/36 (67) 100 05/25/18 07:27 63 05/25/18 07:00 172/47 05/25/18 07:00 85 30 152/42 (78) 100 05/25/18 06:43 72 26 45 05/25/18 06:04 141/39 05/25/18 06:00 65 26 126/32 (63) 100 05/25/18 05:30 62 26 137/41 (73) 100 05/25/18 05:29 68 24 45 05/25/18 05:00 62 28 130/38 (68) 100 05/25/18 05:00 126/34 05/25/18 04:30 63 28 126/34 (64) 100 05/25/18 04:00 142/29 05/25/18 04:00 45 05/25/18 04:00 Mechanical Ventilator Mechanical Ventilator 05/25/18 04:00 98.8 76 31 142/29 (66) 29 05/25/18 03:30 90 31 158/78 (104) 100 05/25/18 03:22 74 24 45 05/25/18 03:00 73 31 88/27 (47) 100 05/25/18 03:00 88/27 05/25/18 02:30 83 31 167/52 (90) 100 05/25/18 02:00 124/34 05/25/18 02:00 62 29 124/34 (64) 100 05/25/18 01:30 78 25 45 05/25/18 01:30 62 29 126/27 (60) 100 05/25/18 01:18 137/37 05/25/18 01:00 78 29 137/37 (70) 100 05/25/18 00:30 64 28 117/38 (64) 100 05/25/18 00:00 Mechanical Ventilator Mechanical Ventilator 05/25/18 00:00 98.4 64 28 112/25 (54) 100 05/25/18 00:00 45 05/25/18 00:00 112/25 05/24/18 23:30 74 28 97/31 (53) 100 05/24/18 23:00 74 27 118/28 (58) 100 05/24/18 23:00 118/28 05/24/18 22:56 81 32 45 05/24/18 22:30 84 32 151/39 (76) 100 05/24/18 22:00 63 23 106/40 (62) 100 05/24/18 22:00 106/40 05/24/18 21:30 70 23 83/23 (43) 100 05/24/18 21:00 139/41 05/24/18 21:00 69 23 139/41 (73) 100 05/24/18 20:39 64 24 45 Intake and Output 05/24/18 05/25/18 19:00 07:00 Intake Total 1703.06 ml 1535.43 ml Output Total 720 ml 320 ml Balance 983.06 ml 1215.43 ml IV Total 1703.06 ml 935.43 ml Tube Feeding 0 ml Blood Product 600 ml Output Urine Total 0 ml 0 ml Drainage Total 20 ml 220 ml Hemodialysis UF 500 ml Other 200 ml 100 ml Laboratory Tests 05/25/18 05:20: White Blood Count 9.2#, Red Blood Count 3.40L, Hemoglobin 9.8#L, Hematocrit 29.2 #L, Mean Corpuscular Volume 86, Mean Corpuscular Hemoglobin 28.9, Mean Corpuscular Hemoglobin Concent 33.6, Red Cell Distribution Width 14.8, Platelet Count 163, Mean Platelet Volume 9.2, Neutrophils (%) (Auto) , Lymphocytes (%) ( Auto) , Monocytes (%) (Auto) , Eosinophils (%) (Auto) , Basophils (%) (Auto) , Differential Total Cells Counted 100, Neutrophils % (Manual) 86H, Lymphocytes % (Manual) 2L, Monocytes % (Manual) 8, Eosinophils % (Manual) 0, Basophils % ( Manual) 0, Band Neutrophils 4, Nucleated Red Blood Cells 3, Platelet Estimate Adequate, Platelet Morphology Normal, Hypochromasia 2+, Anisocytosis 1+, Prothrombin Time 16.8H, Prothromb Time International Ratio 1.6H, Activated Partial Thromboplast Time 47H, Sodium Level 127L, Potassium Level 3.3L, Chloride Level 88L, Carbon Dioxide Level 21, Anion Gap 18H, Blood Urea Nitrogen 77H, Creatinine 5.2H, Estimat Glomerular Filtration Rate , Glucose Level 223H, Lactic Acid Level 3.30H, Calcium Level 7.5L, Total Bilirubin 0.9, Aspartate Amino Transf (AST/SGOT) 51H, Alanine Aminotransferase (ALT/SGPT) 26, Alkaline Phosphatase 140H, Total Protein 4.4L, Albumin 1.1L, Globulin 3.3, Albumin/ Globulin Ratio 0.3L 05/25/18 10:20: Arterial Blood pH 7.431, Arterial Blood Partial Pressure CO2 29.8L, Arterial Blood Partial Pressure O2 93.5, Arterial Blood HCO3 19.4L, Arterial Blood Oxygen Saturation 96.6, Arterial Blood Base Excess -4.0L, Luiz Test Positive Height (Feet): 5 Height (Inches): 4.00 Weight (Pounds): 198 Objective PHYSICAL EXAMINATION: VITAL SIGNS: Have been reviewed HEENT: YOSSIREVARISTO. NECK: Supple. No lymphadenopathy. CHEST: ++ intubated CARDIOVASCULAR: Tachycardic. GASTROINTESTINAL: Distended. Positive bowel sounds. Nontender. No organomegaly. ++ ryan drain in place EXTREMITY: 2+ edema. NEURO: responsive to simple command Reinaldo Leon MD May 25, 2018 20:41
[2018-05-25] MEDS ORDERED: TPN IV SCH (21:00)
[2018-05-25] MEDS ORDERED: FAT EMULSION 20% IV SCH (21:00)
[2018-05-25] MEDS ORDERED: Fat Emulsion Iv 20% 250 ML IV SCH (21:00)
[2018-05-25] MEDS ORDERED: Dextrose 10% 1,000 ML IV PRN (21:00)
[2018-05-25] MEDS: HYDROmorphone 1mg/ml Carpuject IVP PRN (21:16)
--- NOTE | 2018-05-25 21:20 | NUR ---
NURSE NOTES: TPN started with x2 RN witness. Pain medication given as per ordered. FLACC 6/10. Will reassess in 30 mins.
[2018-05-25] MEDS ORDERED: Tubing Blood Filter IV ONE (22:47)
[2018-05-25] MEDS ORDERED: Tubing IV Secondary IV ONE (22:47)
[2018-05-25] MEDS ORDERED: D5W 550ml IV ONE (22:47)
[2018-05-25] MEDS ORDERED: NS 275ml ONE ×2 (22:47)
[2018-05-25] MEDS ORDERED: D5NS 1000ml IV ONE (22:47)
--- NOTE | 2018-05-25 23:22 | General Progress Note ---
Assessment/Plan Problem List: (1) ACS (acute coronary syndrome) ICD Codes: I24.9 - Acute ischemic heart disease, unspecified SNOMED: 878639094 (2) ESRD (end stage renal disease) on dialysis ICD Codes: N18.6 - End stage renal disease; Z99.2 - Dependence on renal dialysis SNOMED: 847451457 (3) Depression ICD Codes: F32.9 - Major depressive disorder, single episode, unspecified SNOMED: 68446202 (4) Anemia ICD Codes: D64.9 - Anemia, unspecified SNOMED: 788838832 (5) Sacral decubitus ulcer, stage III ICD Codes: L89.153 - Pressure ulcer of sacral region, stage 3 SNOMED: 994669275, 476777195 (6) Major depression ICD Codes: F32.9 - Major depressive disorder, single episode, unspecified SNOMED: 789931444 (7) anxiety disorder (8) Atrial fibrillation ICD Codes: I48.91 - Unspecified atrial fibrillation SNOMED: 55193569 (9) Hypoxemia ICD Codes: R09.02 - Hypoxemia SNOMED: 910354450 (10) Hypotension ICD Codes: I95.9 - Hypotension, unspecified SNOMED: 39728425 (11) Shock ICD Codes: R57.9 - Shock, unspecified SNOMED: 76209421 (12) Elevated d-dimer ICD Codes: R79.89 - Other specified abnormal findings of blood chemistry SNOMED: 005691775 (13) encephalopathy due to metabolic factor Status: progressing Assessment/Plan respiratory failure intubated s/p washout of pus / exploratory lap severe anemia transfusion is ordered critical condition in septic shock not much changed poor prognosis afebrile esrd on hd s/p septic shock pna s/p lap choly w perforation (in different hospital) Subjective ROS Limited/Unobtainable: Yes Allergies: Coded Allergies: No Known Allergies (Unverified , 11/12/12) Objective Last 24 Hour Vital Signs Date Time Temp Pulse Resp B/P (MAP) Pulse Ox O2 Delivery O2 Flow Rate FiO2 05/25/18 23:15 75 24 45 05/25/18 23:00 76 26 159/39 (79) 100 05/25/18 22:00 70 20 116/33 (60) 100 05/25/18 21:46 98.6 05/25/18 21:30 70 20 122/33 (62) 100 05/25/18 21:11 77 27 45 05/25/18 21:00 72 20 147/38 (74) 100 05/25/18 20:30 73 20 144/40 (74) 100 05/25/18 20:00 Mechanical Ventilator Mechanical Ventilator 05/25/18 20:00 40 05/25/18 20:00 73 27 153/47 (82) 100 05/25/18 19:30 97.5 76 22 144/40 (74) 100 05/25/18 19:21 73 24 45 05/25/18 19:00 78 20 153/47 (82) 100 05/25/18 18:30 61 20 102/25 (50) 100 05/25/18 18:00 67 24 105/24 (51) 100 05/25/18 17:30 76 28 124/28 (60) 100 05/25/18 17:00 82 29 164/36 (78) 98 05/25/18 16:32 76 26 45 05/25/18 16:30 69 27 107/24 (51) 100 05/25/18 16:00 45 05/25/18 16:00 Mechanical Ventilator Mechanical Ventilator 05/25/18 16:00 98.6 81 29 90/26 (47) 100 05/25/18 15:36 80 05/25/18 15:30 80 28 106/25 (52) 99 05/25/18 15:00 82 28 148/40 (76) 100 05/25/18 14:38 72 27 45 05/25/18 14:30 76 28 111/31 (57) 100 05/25/18 14:00 156/35 05/25/18 14:00 76 28 156/35 (75) 100 05/25/18 13:45 76 28 156/35 (75) 100 05/25/18 13:30 82 29 136/39 (71) 100 05/25/18 13:15 80 28 154/36 (75) 100 05/25/18 13:00 72 25 139/38 (71) 100 05/25/18 13:00 139/38 05/25/18 12:35 77 05/25/18 12:31 68 24 45 05/25/18 12:30 76 28 151/40 (77) 100 05/25/18 12:00 Mechanical Ventilator Mechanical Ventilator 05/25/18 12:00 45 05/25/18 12:00 136/29 05/25/18 12:00 98.7 80 29 136/29 (64) 100 05/25/18 11:30 59 23 143/41 (75) 100 05/25/18 11:00 171/44 05/25/18 11:00 80 29 171/44 (86) 100 05/25/18 10:45 58 22 116/26 (56) 100 05/25/18 10:40 98 05/25/18 10:30 67 25 45 05/25/18 10:30 75 26 116/26 (56) 100 05/25/18 10:15 67 24 119/36 (63) 100 05/25/18 10:00 70 25 153/43 (79) 100 05/25/18 10:00 117/27 05/25/18 09:45 76 25 137/38 (71) 100 05/25/18 09:38 157/43 05/25/18 09:30 77 25 137/38 (71) 100 05/25/18 09:00 173/46 05/25/18 09:00 86 24 120/38 (65) 100 05/25/18 08:34 69 23 45 05/25/18 08:30 59 21 138/32 (67) 100 05/25/18 08:01 153/41 05/25/18 08:00 Mechanical Ventilator Mechanical Ventilator 05/25/18 08:00 98.9 83 30 159/46 (83) 100 05/25/18 08:00 45 05/25/18 07:30 62 28 129/36 (67) 100 05/25/18 07:27 63 05/25/18 07:00 172/47 05/25/18 07:00 85 30 152/42 (78) 100 05/25/18 06:43 72 26 45 05/25/18 06:04 141/39 05/25/18 06:00 65 26 126/32 (63) 100 05/25/18 05:30 62 26 137/41 (73) 100 05/25/18 05:29 68 24 45 05/25/18 05:00 62 28 130/38 (68) 100 05/25/18 05:00 126/34 05/25/18 04:30 63 28 126/34 (64) 100 05/25/18 04:00 142/29 05/25/18 04:00 45 05/25/18 04:00 Mechanical Ventilator Mechanical Ventilator 05/25/18 04:00 98.8 76 31 142/29 (66) 29 05/25/18 03:30 90 31 158/78 (104) 100 05/25/18 03:22 74 24 45 05/25/18 03:00 73 31 88/27 (47) 100 05/25/18 03:00 88/27 05/25/18 02:30 83 31 167/52 (90) 100 05/25/18 02:00 124/34 05/25/18 02:00 62 29 124/34 (64) 100 05/25/18 01:30 78 25 45 05/25/18 01:30 62 29 126/27 (60) 100 05/25/18 01:18 137/37 05/25/18 01:00 78 29 137/37 (70) 100 05/25/18 00:30 64 28 117/38 (64) 100 05/25/18 00:00 Mechanical Ventilator Mechanical Ventilator 05/25/18 00:00 98.4 64 28 112/25 (54) 100 05/25/18 00:00 45 05/25/18 00:00 112/25 05/24/18 23:30 74 28 97/31 (53) 100 Intake and Output 05/24/18 05/25/18 18:59 06:59 Intake Total 1760.46 ml 1608.30 ml Output Total 520 ml 540 ml Balance 1240.46 ml 1068.30 ml IV Total 1760.46 ml 1008.30 ml Tube Feeding 0 ml Blood Product 600 ml Output Urine Total 0 ml 0 ml Gastric Drainage Total 20 ml Drainage Total 240 ml Hemodialysis UF 500 ml Other 300 ml Laboratory Tests 05/25/18 05:20: White Blood Count 9.2#, Red Blood Count 3.40L, Hemoglobin 9.8#L, Hematocrit 29.2 #L, Mean Corpuscular Volume 86, Mean Corpuscular Hemoglobin 28.9, Mean Corpuscular Hemoglobin Concent 33.6, Red Cell Distribution Width 14.8, Platelet Count 163, Mean Platelet Volume 9.2, Neutrophils (%) (Auto) , Lymphocytes (%) ( Auto) , Monocytes (%) (Auto) , Eosinophils (%) (Auto) , Basophils (%) (Auto) , Differential Total Cells Counted 100, Neutrophils % (Manual) 86H, Lymphocytes % (Manual) 2L, Monocytes % (Manual) 8, Eosinophils % (Manual) 0, Basophils % ( Manual) 0, Band Neutrophils 4, Nucleated Red Blood Cells 3, Platelet Estimate Adequate, Platelet Morphology Normal, Hypochromasia 2+, Anisocytosis 1+, Prothrombin Time 16.8H, Prothromb Time International Ratio 1.6H, Activated Partial Thromboplast Time 47H, Sodium Level 127L, Potassium Level 3.3L, Chloride Level 88L, Carbon Dioxide Level 21, Anion Gap 18H, Blood Urea Nitrogen 77H, Creatinine 5.2H, Estimat Glomerular Filtration Rate , Glucose Level 223H, Lactic Acid Level 3.30H, Calcium Level 7.5L, Total Bilirubin 0.9, Aspartate Amino Transf (AST/SGOT) 51H, Alanine Aminotransferase (ALT/SGPT) 26, Alkaline Phosphatase 140H, Total Protein 4.4L, Albumin 1.1L, Globulin 3.3, Albumin/ Globulin Ratio 0.3L 05/25/18 10:20: Arterial Blood pH 7.431, Arterial Blood Partial Pressure CO2 29.8L, Arterial Blood Partial Pressure O2 93.5, Arterial Blood HCO3 19.4L, Arterial Blood Oxygen Saturation 96.6, Arterial Blood Base Excess -4.0L, Luiz Test Positive Height (Feet): 5 Height (Inches): 4.00 Weight (Pounds): 198 Neck: supple Cardiovascular: normal rate Respiratory/Chest: lungs clear Abdomen: soft Samantha Head MD May 25, 2018 23:22
--- NOTE | 2018-05-25 23:25 | NUR ---
NURSE NOTES: Titrated Levophed to meet SBP >100 as ordered. Turned and repositioned, tolerated well. Pt kept clean and dry.
[2018-05-26] VITALS (72 sets, daily range): BP systolic 76–169; BP diastolic 18–113
[2018-05-26] MEDS: NovoLOG Insulin Flexpen SUBQ SCH ×9 (01:13→20:37)
--- NOTE | 2018-05-26 01:25 | NUR ---
NURSE NOTES: BS 240, 8 units of insulin given per sliding scale. Turned and repositioned, tolerated well. VELVET and wound vac draining well. Continue levophed gtt.
--- NOTE | 2018-05-26 02:51 | NUR ---
NURSE NOTES: Patient noted wincing and grimacing and nodded when asked in pain. pain medication given as per ordered. Will reassess in 30 mins.
[2018-05-26] MEDS: HYDROmorphone 1mg/ml Carpuject IVP PRN (02:56)
--- NOTE | 2018-05-26 04:03 | NUR ---
NURSE NOTES: Levophed gtt turned off. BP 110/25 (left calf). CHG bath given, tolerated well. Turned and repositioned. Drsng changed on sacral. Wound vac canister changed. Draining well. Pt had white/clear mucous BM. Will continue to monitor.
[2018-05-26] MEDS: Hydrocortisone 100mg Inj IV SCH ×3 (05:37→22:45)
[2018-05-26 05:44] LABS: HEMATOCRIT 27.2 % (42.0-52.0); HEMOGLOBIN 9.5 G/DL (14.2-18.0); MEAN CORPUSCULAR VOLUME 87 FL (80-99); PLATELET COUNT 116 K/UL (150-450); RED BLOOD COUNT 3.13 M/UL (4.70-6.10); RED CELL DISTRIBUTION WIDTH 15.1 % (11.6-14.8); WHITE BLOOD COUNT 10.9 K/UL (4.8-10.8)
[2018-05-26 05:49] LABS: INR 1.4 (0.9-1.1); PHOSPHORUS 7.2 MG/DL (2.5-4.9)
[2018-05-26 05:55] LABS: ALANINE AMINOTRANSFERASE 18 U/L (12-78); ALBUMIN 0.9 G/DL (3.4-5.0); ALBUMIN/GLOBULIN RATIO 0.3 (1.0-2.7); ALKALINE PHOSPHATASE 142 U/L (46-116); ANION GAP 18 mmol/L (5-15); ASPARTATE AMINO TRANSFERASE 34 U/L (15-37); BILIRUBIN,TOTAL 0.6 MG/DL (0.2-1.0); BLOOD UREA NITROGEN 88 mg/dL (7-18); CALCIUM 6.9 MG/DL (8.5-10.1); CARBON DIOXIDE 21 MMOL/L (21-32); CHLORIDE 86 MMOL/L (98-107); CREATININE 5.8 MG/DL (0.55-1.30); POTASSIUM 2.9 MMOL/L (3.5-5.1); SODIUM 125 MMOL/L (136-145)
[2018-05-26 06:01] LABS: AMYLASE 148 U/L (25-115)
--- NOTE | 2018-05-26 06:02 | NUR ---
NURSE NOTES: Oral care given. BP stable, 101/31. Off Levophed. TPN infusing well. Notified Dr. Head regarding potassium 2.9 and mg 1.5 results. Awaiting for call back.
--- NOTE | 2018-05-26 06:20 | NUR ---
NURSE NOTES: Notified Dr. Arroyo regarding potassium 2.9 and mg 1.5, awaiting for call back.
[2018-05-26 06:34] LABS: CHOLESTEROL 62 MG/DL (< 200); HDL CHOLESTEROL 6 MG/DL (40-60); TRIGLYCERIDES 268 MG/DL (30-150)
--- NOTE | 2018-05-26 07:16 | General Progress Note ---
Assessment/Plan Assessment/Plan Assessment - septic shock - abdominal infection - resp failure - renal failure - malnutrition -GIB Recommendation - protonix bid -s/p 4 units PRBC in this admission -NPO -NGT to suction - supportive care - Abx - pressors - TPN - follow labs - vent care - HD - guarded Subjective ROS Limited/Unobtainable: No Allergies: Coded Allergies: No Known Allergies (Unverified , 11/12/12) Objective Last 24 Hour Vital Signs Date Time Temp Pulse Resp B/P (MAP) Pulse Ox O2 Delivery O2 Flow Rate FiO2 05/26/18 06:45 69 23 116/54 (74) 100 05/26/18 06:30 70 22 105/36 (59) 100 05/26/18 06:15 70 22 102/33 (56) 100 05/26/18 06:05 70 22 101/31 (54) 100 05/26/18 05:45 70 24 95/24 (47) 100 05/26/18 05:30 72 24 112/36 (61) 100 05/26/18 05:18 69 20 40 05/26/18 05:17 72 24 113/34 (60) 100 05/26/18 05:03 70 21 104/23 (50) 100 05/26/18 04:45 76 27 112/30 (57) 100 05/26/18 04:30 71 26 91/28 (49) 100 05/26/18 04:15 97.6 72 25 113/54 (73) 100 05/26/18 04:01 110/25 05/26/18 04:00 75 05/26/18 04:00 Mechanical Ventilator Mechanical Ventilator 05/26/18 04:00 74 25 110/25 (53) 100 05/26/18 04:00 40 05/26/18 03:30 77 26 140/32 (68) 100 05/26/18 03:26 97.6 05/26/18 03:00 77 26 120/45 (70) 100 05/26/18 03:00 121/22 05/26/18 02:47 74 25 45 05/26/18 02:30 73 26 113/43 (66) 100 05/26/18 02:00 74 26 101/25 (50) 100 05/26/18 02:00 103/37 1/6/19 01:30 75 26 120/34 (62) 100 05/26/18 01:00 75 26 107/36 (59) 100 05/26/18 00:53 69 20 45 05/26/18 00:30 72 23 126/35 (65) 100 05/26/18 00:00 Mechanical Ventilator Mechanical Ventilator 05/26/18 00:00 115/33 05/26/18 00:00 97.6 74 23 133/37 (69) 100 05/25/18 23:45 69 19 Mechanical Ventilator 40 05/25/18 23:30 71 23 126/34 (64) 100 05/25/18 23:15 75 24 45 05/25/18 23:00 76 26 159/39 (79) 100 05/25/18 23:00 116/27 05/25/18 22:30 74 23 121/34 (63) 100 05/25/18 22:00 128/34 05/25/18 22:00 70 20 116/33 (60) 100 05/25/18 21:30 70 20 122/33 (62) 100 05/25/18 21:11 77 27 45 05/25/18 21:00 147/38 05/25/18 21:00 72 20 147/38 (74) 100 05/25/18 20:30 73 20 144/40 (74) 100 05/25/18 20:00 Mechanical Ventilator Mechanical Ventilator 05/25/18 20:00 72 05/25/18 20:00 40 05/25/18 20:00 144/40 05/25/18 20:00 73 27 153/47 (82) 100 05/25/18 19:30 97.5 76 22 144/40 (74) 100 05/25/18 19:21 73 24 45 05/25/18 19:00 153/47 05/25/18 19:00 78 20 153/47 (82) 100 05/25/18 18:30 61 20 102/25 (50) 100 05/25/18 18:00 67 24 105/24 (51) 100 05/25/18 17:30 76 28 124/28 (60) 100 05/25/18 17:00 82 29 164/36 (78) 98 05/25/18 16:32 76 26 45 05/25/18 16:30 69 27 107/24 (51) 100 05/25/18 16:00 45 05/25/18 16:00 Mechanical Ventilator Mechanical Ventilator 05/25/18 16:00 98.6 81 29 90/26 (47) 100 05/25/18 15:36 80 05/25/18 15:30 80 28 106/25 (52) 99 05/25/18 15:00 82 28 148/40 (76) 100 05/25/18 14:38 72 27 45 05/25/18 14:30 76 28 111/31 (57) 100 05/25/18 14:00 156/35 05/25/18 14:00 76 28 156/35 (75) 100 05/25/18 13:45 76 28 156/35 (75) 100 05/25/18 13:30 82 29 136/39 (71) 100 05/25/18 13:15 80 28 154/36 (75) 100 05/25/18 13:00 72 25 139/38 (71) 100 05/25/18 13:00 139/38 05/25/18 12:35 77 05/25/18 12:31 68 24 45 05/25/18 12:30 76 28 151/40 (77) 100 05/25/18 12:00 Mechanical Ventilator Mechanical Ventilator 05/25/18 12:00 45 05/25/18 12:00 136/29 05/25/18 12:00 98.7 80 29 136/29 (64) 100 05/25/18 11:30 59 23 143/41 (75) 100 05/25/18 11:00 171/44 05/25/18 11:00 80 29 171/44 (86) 100 05/25/18 10:45 58 22 116/26 (56) 100 05/25/18 10:40 98 05/25/18 10:30 67 25 45 05/25/18 10:30 75 26 116/26 (56) 100 05/25/18 10:15 67 24 119/36 (63) 100 05/25/18 10:00 70 25 153/43 (79) 100 05/25/18 10:00 117/27 05/25/18 09:45 76 25 137/38 (71) 100 05/25/18 09:38 157/43 05/25/18 09:30 77 25 137/38 (71) 100 05/25/18 09:00 173/46 1/5/19 09:00 86 24 120/38 (65) 100 05/25/18 08:34 69 23 45 05/25/18 08:30 59 21 138/32 (67) 100 05/25/18 08:01 153/41 05/25/18 08:00 Mechanical Ventilator Mechanical Ventilator 05/25/18 08:00 98.9 83 30 159/46 (83) 100 05/25/18 08:00 45 05/25/18 07:30 62 28 129/36 (67) 100 05/25/18 07:27 63 Intake and Output 05/25/18 05/26/18 19:00 07:00 Intake Total 835.49 ml 772.005 ml Output Total 325 ml 205 ml Balance 510.49 ml 567.005 ml IV Total 835.49 ml 772.005 ml Output Urine Total 0 ml 0 ml Gastric Drainage Total 20 ml Drainage Total 305 ml 205 ml # Bowel Movements 1 1 Laboratory Tests 05/25/18 10:20: Arterial Blood pH 7.431, Arterial Blood Partial Pressure CO2 29.8L, Arterial Blood Partial Pressure O2 93.5, Arterial Blood HCO3 19.4L, Arterial Blood Oxygen Saturation 96.6, Arterial Blood Base Excess -4.0L, Luiz Test Positive 05/26/18 05:01: White Blood Count 10.9H, Red Blood Count 3.13L, Hemoglobin 9.5L, Hematocrit 27.2L, Mean Corpuscular Volume 87, Mean Corpuscular Hemoglobin 30.3, Mean Corpuscular Hemoglobin Concent 34.9, Red Cell Distribution Width 15.1H, Platelet Count 116L, Mean Platelet Volume 10.6H, Neutrophils (%) (Auto) , Lymphocytes (%) (Auto) , Monocytes (%) (Auto) , Eosinophils (%) (Auto) , Basophils (%) (Auto) , Neutrophils % (Manual) [Pending], Lymphocytes % (Manual) [Pending], Platelet Estimate [Pending], Platelet Morphology [Pending], Erythrocyte Sedimentation Rate [Pending], Prothrombin Time 14.6H, Prothromb Time International Ratio 1.4H, Activated Partial Thromboplast Time 49H, Sodium Level 125L, Potassium Level 2.9L, Chloride Level 86L, Carbon Dioxide Level 21, Anion Gap 18H, Blood Urea Nitrogen 88H, Creatinine 5.8H, Estimat Glomerular Filtration Rate , Glucose Level 302H, Uric Acid 7.5H, Calcium Level 6.9L, Phosphorus Level 7.2H, Magnesium Level 1.5L, Total Bilirubin 0.6, Aspartate Amino Transf (AST/SGOT) 34, Alanine Aminotransferase (ALT/SGPT) 18, Alkaline Phosphatase 142H, C-Reactive Protein, Quantitative 16.8H, Total Protein 4.1L, Albumin 0.9L, Globulin 3.2, Albumin/Globulin Ratio 0.3L, Triglycerides Level 268H, Cholesterol Level 62, LDL Cholesterol 29, HDL Cholesterol 6L, Cholesterol/ HDL Ratio 10.3H, Amylase Level 148H, Lipase 1241H, Random Vancomycin Level 15.2 Height (Feet): 5 Height (Inches): 4.00 Weight (Pounds): 198 General Appearance: alert EENT: normal ENT inspection Neck: supple Cardiovascular: tachycardia Respiratory/Chest: decreased breath sounds Abdomen: other - post surg, wound vac Extremities: non-tender Martín Campos MD May 26, 2018 07:16
--- NOTE | 2018-05-26 07:36 | NUR ---
HAND-OFF: Report given to MINGO Irwin.
--- NOTE | 2018-05-26 08:12 | NUR ---
NURSE NOTES: Report given by Suraj
--- NOTE | 2018-05-26 08:12 | NUR ---
NURSE NOTES: Patient is awake , alert , nonverbal due to intubation , has a left subclavian central line triple lumen, one running fixed rate amiodrone at 0.5 and tpn at 90.a. Is currently sinus rhythm, but was afin rvr. Is NPO has OGT at low inter mitten suction, Has ryan drain on the left abdomen, right femoral Donis catheter. Nutrition consult has asked if Dr elise has a fluid limit regarding to the patient whom is a Hemodiayslis patient that has esrd. On isolation for VRE of the rectum.WIll monitor patient for respiratory distress.
--- NOTE | 2018-05-26 08:28 | NUR ---
RESPIRATORY NOTE: Received pt. on 840 vent. Vent settings are: A/C rate of 16, Vt 500, FI02 40%, PEEP +5. No respiratory distress noted, Ambu bag @ bs. Vent plugged on red outlet. Will continue to monitor pt.
[2018-05-26] MEDS: Pantoprazole Inj IVP SCH ×2 (08:47→20:37)
[2018-05-26] MEDS: Levemir Flexpen SUBQ SCH ×2 (09:39→20:35)
--- NOTE | 2018-05-26 09:51 | NUR ---
NURSE NOTES: Dr elise said no fluid limit with TPN and to put in a molina to monitor urine output
[2018-05-26] MEDS ORDERED: Vancomycin 1gm/D5W 275ml IVPB SCH ×2 (10:00)
--- NOTE | 2018-05-26 10:06 | Infectious Diseases Prog Note ---
Assessment/Plan Assessment/Plan A: 1. serratia , Enterobacter sepsis with shock 2. VRE colonization 3. diabetes mellitus 4. hypertension 5. 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 leucocytosis 6. A fib with RVR 7. Small bowel perforation 8. Perioperative respiratory failure 9. Atelectasis versus Pneumonia 10 Peritonitis with Citrobacter & Serratia 11. sepsis, septic shock 12. Lactic acidosis 13. Anemia 14. Anastomosis leak P 1. continue Cefepime and Micafungin, Flagyl & Levaquin 2.discontinue IV Vancomycin 3. Continue TPN Subjective ROS Limited/Unobtainable: Yes Constitutional: Reports: other - doing better , off pressor Gastrointestinal/Abdominal: Reports: other - on TPN Allergies: Coded Allergies: No Known Allergies (Unverified , 11/12/12) Objective Vital Signs Last 24 Hour Vital Signs Date Time Temp Pulse Resp B/P (MAP) Pulse Ox O2 Delivery O2 Flow Rate FiO2 05/26/18 08:28 67 22 40 05/26/18 07:15 68 23 139/42 (74) 100 05/26/18 07:00 68 23 106/54 (71) 100 05/26/18 06:45 69 23 116/54 (74) 100 05/26/18 06:30 70 22 105/36 (59) 100 05/26/18 06:15 70 22 102/33 (56) 100 05/26/18 06:05 70 22 101/31 (54) 100 05/26/18 05:45 70 24 95/24 (47) 100 05/26/18 05:30 72 24 112/36 (61) 100 05/26/18 05:18 69 20 40 05/26/18 05:17 72 24 113/34 (60) 100 05/26/18 05:03 70 21 104/23 (50) 100 05/26/18 04:45 76 27 112/30 (57) 100 05/26/18 04:30 71 26 91/28 (49) 100 05/26/18 04:15 97.6 72 25 113/54 (73) 100 05/26/18 04:01 110/25 05/26/18 04:00 75 05/26/18 04:00 Mechanical Ventilator Mechanical Ventilator 05/26/18 04:00 74 25 110/25 (53) 100 05/26/18 04:00 40 05/26/18 03:30 77 26 140/32 (68) 100 05/26/18 03:26 97.6 05/26/18 03:00 77 26 120/45 (70) 100 05/26/18 03:00 121/22 05/26/18 02:47 74 25 45 05/26/18 02:30 73 26 113/43 (66) 100 05/26/18 02:00 74 26 101/25 (50) 100 05/26/18 02:00 103/37 05/26/18 01:30 75 26 120/34 (62) 100 05/26/18 01:00 75 26 107/36 (59) 100 05/26/18 00:53 69 20 45 05/26/18 00:30 72 23 126/35 (65) 100 05/26/18 00:00 Mechanical Ventilator Mechanical Ventilator 05/26/18 00:00 115/33 05/26/18 00:00 97.6 74 23 133/37 (69) 100 05/25/18 23:45 69 19 Mechanical Ventilator 40 05/25/18 23:30 71 23 126/34 (64) 100 05/25/18 23:15 75 24 45 05/25/18 23:00 76 26 159/39 (79) 100 05/25/18 23:00 116/27 05/25/18 22:30 74 23 121/34 (63) 100 05/25/18 22:00 128/34 05/25/18 22:00 70 20 116/33 (60) 100 05/25/18 21:30 70 20 122/33 (62) 100 05/25/18 21:11 77 27 45 05/25/18 21:00 147/38 05/25/18 21:00 72 20 147/38 (74) 100 05/25/18 20:30 73 20 144/40 (74) 100 05/25/18 20:00 Mechanical Ventilator Mechanical Ventilator 05/25/18 20:00 72 05/25/18 20:00 40 05/25/18 20:00 144/40 05/25/18 20:00 73 27 153/47 (82) 100 05/25/18 19:30 97.5 76 22 144/40 (74) 100 05/25/18 19:21 73 24 45 05/25/18 19:00 153/47 05/25/18 19:00 78 20 153/47 (82) 100 05/25/18 18:30 61 20 102/25 (50) 100 05/25/18 18:00 67 24 105/24 (51) 100 05/25/18 17:30 76 28 124/28 (60) 100 05/25/18 17:00 82 29 164/36 (78) 98 05/25/18 16:32 76 26 45 05/25/18 16:30 69 27 107/24 (51) 100 05/25/18 16:00 45 05/25/18 16:00 Mechanical Ventilator Mechanical Ventilator 05/25/18 16:00 98.6 81 29 90/26 (47) 100 05/25/18 15:36 80 05/25/18 15:30 80 28 106/25 (52) 99 05/25/18 15:00 82 28 148/40 (76) 100 05/25/18 14:38 72 27 45 05/25/18 14:30 76 28 111/31 (57) 100 05/25/18 14:00 156/35 05/25/18 14:00 76 28 156/35 (75) 100 05/25/18 13:45 76 28 156/35 (75) 100 05/25/18 13:30 82 29 136/39 (71) 100 05/25/18 13:15 80 28 154/36 (75) 100 05/25/18 13:00 72 25 139/38 (71) 100 05/25/18 13:00 139/38 05/25/18 12:35 77 05/25/18 12:31 68 24 45 05/25/18 12:30 76 28 151/40 (77) 100 05/25/18 12:00 Mechanical Ventilator Mechanical Ventilator 05/25/18 12:00 45 05/25/18 12:00 136/29 05/25/18 12:00 98.7 80 29 136/29 (64) 100 05/25/18 11:30 59 23 143/41 (75) 100 05/25/18 11:00 171/44 05/25/18 11:00 80 29 171/44 (86) 100 05/25/18 10:45 58 22 116/26 (56) 100 05/25/18 10:40 98 05/25/18 10:30 67 25 45 05/25/18 10:30 75 26 116/26 (56) 100 05/25/18 10:15 67 24 119/36 (63) 100 05/25/18 10:00 70 25 153/43 (79) 100 05/25/18 10:00 117/27 Height (Feet): 5 Height (Inches): 4.00 Weight (Pounds): 198 HEENT: mucous membranes moist, other - orally intubated Respiratory/Chest: lungs clear, other - on ventilator Cardiovascular: normal rate, other - left subclavian central line Abdomen: other - midline wound vac, LLQ drain Extremities: other - edema of hands Neurologic/Psychiatric: alert Laboratory Tests Test 05/25/18 10:20 05/26/18 05:01 Arterial Blood pH 7.431 (7.350-7.450) Arterial Blood Partial Pressure CO2 29.8 mmHg (35.0-45.0) L Arterial Blood Partial Pressure O2 93.5 mmHg (75.0-100.0) Arterial Blood HCO3 19.4 mmol/L (22.0-26.0) L Arterial Blood Oxygen Saturation 96.6 % (95-100) Arterial Blood Base Excess -4.0 (-2-2) L Luiz Test Positive White Blood Count 10.9 K/UL (4.8-10.8) H Red Blood Count 3.13 M/UL (4.70-6.10) L Hemoglobin 9.5 G/DL (14.2-18.0) L Hematocrit 27.2 % (42.0-52.0) L Mean Corpuscular Volume 87 FL (80-99) Mean Corpuscular Hemoglobin 30.3 PG (27.0-31.0) Mean Corpuscular Hemoglobin Concent 34.9 G/DL (32.0-36.0) Red Cell Distribution Width 15.1 % (11.6-14.8) H Platelet Count 116 K/UL (150-450) L Mean Platelet Volume 10.6 FL (6.5-10.1) H Neutrophils (%) (Auto) % (45.0-75.0) Lymphocytes (%) (Auto) % (20.0-45.0) Monocytes (%) (Auto) % (1.0-10.0) Eosinophils (%) (Auto) % (0.0-3.0) Basophils (%) (Auto) % (0.0-2.0) Differential Total Cells Counted 100 Neutrophils % (Manual) 82 % (45-75) H Lymphocytes % (Manual) 2 % (20-45) L Monocytes % (Manual) 2 % (1-10) Eosinophils % (Manual) 0 % (0-3) Basophils % (Manual) 0 % (0-2) Band Neutrophils 14 % (0-8) H Platelet Estimate Decreased L Platelet Morphology Normal Hypochromasia 2+ Anisocytosis 1+ Erythrocyte Sedimentation Rate 71 MM/HR (0-20) H Prothrombin Time 14.6 SEC (9.30-11.50) H Prothromb Time International Ratio 1.4 (0.9-1.1) H Activated Partial Thromboplast Time 49 SEC (23-33) H Sodium Level 125 MMOL/L (136-145) L Potassium Level 2.9 MMOL/L (3.5-5.1) L Chloride Level 86 MMOL/L (98-107) L Carbon Dioxide Level 21 MMOL/L (21-32) Anion Gap 18 mmol/L (5-15) H Blood Urea Nitrogen 88 mg/dL (7-18) H Creatinine 5.8 MG/DL (0.55-1.30) H Estimat Glomerular Filtration Rate mL/min (>60) Glucose Level 302 MG/DL (74-106) H Uric Acid 7.5 MG/DL (2.6-7.2) H Calcium Level 6.9 MG/DL (8.5-10.1) L Phosphorus Level 7.2 MG/DL (2.5-4.9) H Magnesium Level 1.5 MG/DL (1.8-2.4) L Total Bilirubin 0.6 MG/DL (0.2-1.0) Aspartate Amino Transf (AST/SGOT) 34 U/L (15-37) Alanine Aminotransferase (ALT/SGPT) 18 U/L (12-78) Alkaline Phosphatase 142 U/L (46-116) H C-Reactive Protein, Quantitative 16.8 mg/dL (0.00-0.90) H Total Protein 4.1 G/DL (6.4-8.2) L Albumin 0.9 G/DL (3.4-5.0) L Globulin 3.2 g/dL Albumin/Globulin Ratio 0.3 (1.0-2.7) L Triglycerides Level 268 MG/DL (30-150) H Cholesterol Level 62 MG/DL (< 200) LDL Cholesterol 29 mg/dL (<100) HDL Cholesterol 6 MG/DL (40-60) L Cholesterol/HDL Ratio 10.3 (3.3-4.4) H Amylase Level 148 U/L (25-115) H Lipase 1241 U/L (73-393) H Random Vancomycin Level 15.2 ug/mL Current Medications Medications (Trade) Dose Ordered Sig/Min Route PRN Reason Start Time Stop Time Status Last Admin Dose Admin Acetaminophen (Tylenol) 650 mg Q4H PRN ORAL Mild Pain/Temp > 100.5 05/12/18 15:30 06/09/18 15:29 05/20/18 20:53 Acetaminophen (Tylenol) 650 mg Q4H PRN RECTAL Mild Pain/Temp > 100.5 05/21/18 12:00 06/20/18 11:59 Cefepime HCl 2 gm/ Dextrose 55 ml @ 110 mls/hr Q24H IVPB 05/25/18 13:00 06/01/18 12:59 05/25/18 13:10 Chlorhexidine Gluconate (Tatyana-Hex 2%) 1 applic DAILY@2000 TOPIC 05/12/18 20:00 06/11/18 19:59 05/25/18 20:30 Dextrose 1,000 ml @ 0 mls/hr Q24H PRN IV PN interrupted or unavailable 05/25/18 21:00 06/24/18 20:59 Dextrose (Dextrose 50%) 25 ml Q30M PRN IV Hypoglycemia 05/24/18 16:45 06/23/18 16:44 Dextrose (Dextrose 50%) 50 ml Q30M PRN IV Hypoglycemia 05/24/18 16:45 06/23/18 16:44 Fat Emulsion Intravenous 250 ml/Amino Acids/ Electrolytes/ Dextrose 2,170 ml @ 90.417 mls/ hr Q24H IV 05/25/18 21:00 06/24/18 20:59 05/25/18 20:32 Hydrocortisone (Solu-CORTEF) 75 mg EVERY 8 HOURS IV 05/25/18 14:00 06/20/18 21:59 05/26/18 05:37 Hydromorphone HCl (Dilaudid) 1 mg Q2H PRN IVP Severe Pain (Pain Scale 7-10) 05/24/18 09:45 05/29/18 09:44 05/26/18 02:56 Insulin Aspart (NovoLOG) EVERY 4 HOURS SUBQ 05/24/18 17:00 06/15/18 20:59 05/26/18 09:25 Insulin Detemir (Levemir) 15 units Q12HR SUBQ 05/26/18 09:00 06/23/18 17:59 05/26/18 09:39 Levofloxacin 50 ml @ 50 mls/hr Q24H IVPB 05/25/18 13:00 06/01/18 12:59 05/25/18 13:10 Magnesium Sulfate 100 ml @ 100 mls/hr Q1H IVPB 05/26/18 09:00 05/26/18 10:59 05/26/18 09:41 Metronidazole 100 ml @ 100 mls/hr Q8HR IVPB 05/25/18 14:00 06/01/18 13:59 05/26/18 05:37 Micafungin Sodium 100 mg/Sodium Chloride 110 ml @ 110 mls/hr Q24H IVPB 05/21/18 12:00 05/28/18 11:59 05/25/18 12:29 Norepinephrine Bitartrate 8 mg/ Dextrose 500 ml @ 0 mls/hr Q24H IV 05/21/18 14:30 06/20/18 14:29 05/25/18 09:38 Ondansetron HCl (Zofran) 4 mg Q6H PRN IVP Nausea & Vomiting 05/15/18 23:30 06/14/18 23:29 Pantoprazole (Protonix) 40 mg EVERY 12 HOURS IVP 05/12/18 21:00 06/10/18 20:59 05/26/18 08:47 Phytonadione (Vitamin K) 10 mg ONCE A WEEK SUBQ 05/25/18 21:00 06/24/18 20:59 05/25/18 20:30 Potassium Chloride 100 ml @ 100 mls/hr Q1HR IVPB 05/26/18 09:00 05/26/18 11:59 05/26/18 09:21 Vancomycin HCl (Vanco rx to dose) 1 ea DAILY PRN MISC Per rx protocol 05/22/18 11:45 06/21/18 11:44 Vancomycin HCl 1 gm/Dextrose 275 ml @ 183.708 mls/hr ONCE IVPB 05/26/18 10:00 05/26/18 12:00 Vasopressin 100 units/Sodium Chloride 100 ml @ 0 mls/hr Q24H IV 05/22/18 11:30 06/21/18 11:29 05/23/18 17:47 Romie Hooks MD May 26, 2018 10:06
[2018-05-26] MEDS ORDERED: Tubing IV Secondary IV ONE (11:18)
[2018-05-26] MEDS: Vasopressin 100 UNITS in NS 95 ML IV SCH (11:30)
--- NOTE | 2018-05-26 11:30 | Pulmonolgy Critical Care Note ---
Critical Care - Asmt/Plan Problems: (1) Shock (2) Hypoxemia (3) Elevated d-dimer Assessment & Plan: S/P neg CT-A + UE DVT (4) Hypotension (5) Atrial fibrillation (6) ESRD (end stage renal disease) on dialysis (7) ACS (acute coronary syndrome) (8) Sacral decubitus ulcer, stage III (9) S/P cholecystectomy (10) Serratia sepsis (11) S/P exploratory laparotomy (12) Perforated viscus Assessment/Plan: -Off pressors -Continue ventilatory support/settings reviewed -Titrate down FiO2 to keep SaO2 > 90%, continue PEEP 5 -HD per renal as able -Amio gtt per cards/EPS, off Dilt -[facility] held -Monitor CBC, transfuse as needed -Monitor for bleeding -Arabella, Levaquin, Flagyl and Cefepime per ID, F/U Cx's -Decrease HC to 50 TID -F/U surgery recs --> PABLITO guzmán -FC D/W RN and RT CCT 35 Critical Care - Objective Last 24 Hour Vital Signs Date Time Temp Pulse Resp B/P (MAP) Pulse Ox O2 Delivery O2 Flow Rate FiO2 05/26/18 10:30 66 23 121/38 (65) 100 05/26/18 10:15 66 23 128/33 (64) 100 05/26/18 10:00 68 23 124/36 (65) 100 05/26/18 09:45 67 23 116/41 (66) 100 05/26/18 09:40 71 24 40 05/26/18 09:30 67 23 122/30 (60) 100 05/26/18 09:15 67 23 114/25 (54) 100 05/26/18 09:00 68 23 113/26 (55) 100 05/26/18 08:30 70 23 139/26 (63) 100 05/26/18 08:28 67 22 40 05/26/18 08:15 69 23 129/35 (66) 100 05/26/18 08:00 40 05/26/18 08:00 69 05/26/18 08:00 Mechanical Ventilator Mechanical Ventilator 05/26/18 08:00 96.5 68 23 139/42 (74) 100 05/26/18 07:15 68 23 139/42 (74) 100 05/26/18 07:00 68 23 106/54 (71) 100 05/26/18 06:45 69 23 116/54 (74) 100 05/26/18 06:30 70 22 105/36 (59) 100 05/26/18 06:15 70 22 102/33 (56) 100 05/26/18 06:05 70 22 101/31 (54) 100 05/26/18 05:45 70 24 95/24 (47) 100 05/26/18 05:30 72 24 112/36 (61) 100 05/26/18 05:18 69 20 40 05/26/18 05:17 72 24 113/34 (60) 100 05/26/18 05:03 70 21 104/23 (50) 100 05/26/18 04:45 76 27 112/30 (57) 100 05/26/18 04:30 71 26 91/28 (49) 100 05/26/18 04:15 97.6 72 25 113/54 (73) 100 05/26/18 04:01 110/25 05/26/18 04:00 75 05/26/18 04:00 Mechanical Ventilator Mechanical Ventilator 05/26/18 04:00 74 25 110/25 (53) 100 05/26/18 04:00 40 05/26/18 03:30 77 26 140/32 (68) 100 05/26/18 03:26 97.6 05/26/18 03:00 77 26 120/45 (70) 100 05/26/18 03:00 121/22 05/26/18 02:47 74 25 45 05/26/18 02:30 73 26 113/43 (66) 100 05/26/18 02:00 74 26 101/25 (50) 100 05/26/18 02:00 103/37 05/26/18 01:30 75 26 120/34 (62) 100 05/26/18 01:00 75 26 107/36 (59) 100 05/26/18 00:53 69 20 45 05/26/18 00:30 72 23 126/35 (65) 100 05/26/18 00:00 Mechanical Ventilator Mechanical Ventilator 05/26/18 00:00 115/33 05/26/18 00:00 97.6 74 23 133/37 (69) 100 05/25/18 23:45 69 19 Mechanical Ventilator 40 05/25/18 23:30 71 23 126/34 (64) 100 05/25/18 23:15 75 24 45 05/25/18 23:00 76 26 159/39 (79) 100 05/25/18 23:00 116/27 05/25/18 22:30 74 23 121/34 (63) 100 05/25/18 22:00 128/34 05/25/18 22:00 70 20 116/33 (60) 100 05/25/18 21:30 70 20 122/33 (62) 100 05/25/18 21:11 77 27 45 05/25/18 21:00 147/38 05/25/18 21:00 72 20 147/38 (74) 100 05/25/18 20:30 73 20 144/40 (74) 100 05/25/18 20:00 Mechanical Ventilator Mechanical Ventilator 05/25/18 20:00 72 05/25/18 20:00 40 05/25/18 20:00 144/40 05/25/18 20:00 73 27 153/47 (82) 100 05/25/18 19:30 97.5 76 22 144/40 (74) 100 05/25/18 19:21 73 24 45 05/25/18 19:00 153/47 05/25/18 19:00 78 20 153/47 (82) 100 05/25/18 18:30 61 20 102/25 (50) 100 05/25/18 18:00 67 24 105/24 (51) 100 05/25/18 17:30 76 28 124/28 (60) 100 05/25/18 17:00 82 29 164/36 (78) 98 05/25/18 16:32 76 26 45 05/25/18 16:30 69 27 107/24 (51) 100 05/25/18 16:00 45 05/25/18 16:00 Mechanical Ventilator Mechanical Ventilator 05/25/18 16:00 98.6 81 29 90/26 (47) 100 05/25/18 15:36 80 05/25/18 15:30 80 28 106/25 (52) 99 05/25/18 15:00 82 28 148/40 (76) 100 05/25/18 14:38 72 27 45 05/25/18 14:30 76 28 111/31 (57) 100 05/25/18 14:00 156/35 05/25/18 14:00 76 28 156/35 (75) 100 05/25/18 13:45 76 28 156/35 (75) 100 05/25/18 13:30 82 29 136/39 (71) 100 05/25/18 13:15 80 28 154/36 (75) 100 05/25/18 13:00 72 25 139/38 (71) 100 05/25/18 13:00 139/38 05/25/18 12:35 77 05/25/18 12:31 68 24 45 05/25/18 12:30 76 28 151/40 (77) 100 05/25/18 12:00 Mechanical Ventilator Mechanical Ventilator 05/25/18 12:00 45 05/25/18 12:00 136/29 05/25/18 12:00 98.7 80 29 136/29 (64) 100 05/25/18 11:30 59 23 143/41 (75) 100 Status: sedated, other - intubated Condition: critical HEENT: atraumatic Neck: full ROM Lungs: rhonchi Heart: HR/BP stable Abdomen: other - wound vac mild TTP VELVET hypoactive BS Extremities: other - 1+ edema Decubiti: location - sacral Accucheck: 303 Critical Care - Subjective ROS Limited/Unobtainable: Yes ICU Day: 12 Intubation Day: 9 Interval Events: Off pressors Now on Cefepime/Flagyl/Levaquin/, off Vanco More alert On TPN Plan for closure tommorrow Electrolytes repleted HD tommorrow am prior to OR Condition: critical IV Access: central EKG Rhythm: Sinus Rhythm FI02: 40 Vent Support Breath Rate: 16 Vent Support Mode: AC Vent Tidal Volume: 500 Sputum Amount: Scant PEEP: 5.0 PIP: 22 Fluids: SLIV Drips: Amio Tube Feeding Amount: 0 I&O: Intake and Output 05/25/18 05/26/18 19:00 07:00 Intake Total 835.49 ml 772.005 ml Output Total 325 ml 205 ml Balance 510.49 ml 567.005 ml IV Total 835.49 ml 772.005 ml Output Urine Total 0 ml 0 ml Gastric Drainage Total 20 ml Drainage Total 305 ml 205 ml # Bowel Movements 1 1 Subjective: CROW CXR: Stable ET-Tube: 8.5 ET Position: 24 Labs: Laboratory Tests Test 05/26/18 05:01 White Blood Count 10.9 K/UL (4.8-10.8) H Red Blood Count 3.13 M/UL (4.70-6.10) L Hemoglobin 9.5 G/DL (14.2-18.0) L Hematocrit 27.2 % (42.0-52.0) L Mean Corpuscular Volume 87 FL (80-99) Mean Corpuscular Hemoglobin 30.3 PG (27.0-31.0) Mean Corpuscular Hemoglobin Concent 34.9 G/DL (32.0-36.0) Red Cell Distribution Width 15.1 % (11.6-14.8) H Platelet Count 116 K/UL (150-450) L Mean Platelet Volume 10.6 FL (6.5-10.1) H Neutrophils (%) (Auto) % (45.0-75.0) Lymphocytes (%) (Auto) % (20.0-45.0) Monocytes (%) (Auto) % (1.0-10.0) Eosinophils (%) (Auto) % (0.0-3.0) Basophils (%) (Auto) % (0.0-2.0) Differential Total Cells Counted 100 Neutrophils % (Manual) 82 % (45-75) H Lymphocytes % (Manual) 2 % (20-45) L Monocytes % (Manual) 2 % (1-10) Eosinophils % (Manual) 0 % (0-3) Basophils % (Manual) 0 % (0-2) Band Neutrophils 14 % (0-8) H Platelet Estimate Decreased L Platelet Morphology Normal Hypochromasia 2+ Anisocytosis 1+ Erythrocyte Sedimentation Rate 71 MM/HR (0-20) H Prothrombin Time 14.6 SEC (9.30-11.50) H Prothromb Time International Ratio 1.4 (0.9-1.1) H Activated Partial Thromboplast Time 49 SEC (23-33) H Sodium Level 125 MMOL/L (136-145) L Potassium Level 2.9 MMOL/L (3.5-5.1) L Chloride Level 86 MMOL/L (98-107) L Carbon Dioxide Level 21 MMOL/L (21-32) Anion Gap 18 mmol/L (5-15) H Blood Urea Nitrogen 88 mg/dL (7-18) H Creatinine 5.8 MG/DL (0.55-1.30) H Estimat Glomerular Filtration Rate mL/min (>60) Glucose Level 302 MG/DL (74-106) H Uric Acid 7.5 MG/DL (2.6-7.2) H Calcium Level 6.9 MG/DL (8.5-10.1) L Phosphorus Level 7.2 MG/DL (2.5-4.9) H Magnesium Level 1.5 MG/DL (1.8-2.4) L Total Bilirubin 0.6 MG/DL (0.2-1.0) Aspartate Amino Transf (AST/SGOT) 34 U/L (15-37) Alanine Aminotransferase (ALT/SGPT) 18 U/L (12-78) Alkaline Phosphatase 142 U/L (46-116) H C-Reactive Protein, Quantitative 16.8 mg/dL (0.00-0.90) H Total Protein 4.1 G/DL (6.4-8.2) L Albumin 0.9 G/DL (3.4-5.0) L Globulin 3.2 g/dL Albumin/Globulin Ratio 0.3 (1.0-2.7) L Triglycerides Level 268 MG/DL (30-150) H Cholesterol Level 62 MG/DL (< 200) LDL Cholesterol 29 mg/dL (<100) HDL Cholesterol 6 MG/DL (40-60) L Cholesterol/HDL Ratio 10.3 (3.3-4.4) H Amylase Level 148 U/L (25-115) H Lipase 1241 U/L (73-393) H Random Vancomycin Level 15.2 ug/mL Daryl Jones MD May 26, 2018 11:30
--- NOTE | 2018-05-26 11:41 | NUR ---
RD ASSESSMENT & RECOMMENDATIONS SEE CARE ACTIVITY FOR COMPLETE ASSESSMENT DAILY ESTIMATED NEEDS: Needs based on ESRD on HD, wound, critical care/ 73.7kg abw 25-30 kcals/kg 1082-3838 total kcals 1.25-2 g protein/kg 92-147 g total protein Fluid per MD NUTRITION DIAGNOSIS: 1) Increased kcal and protein needs r/t renal dysfunction, wound healing, surgery as evidenced by pt with ESRD on HD, partial thickness wound @ sacral cleft and stage 1 @ rt heel, s/p small bowel resection. 2) Altered GI function R/T recent lap matthew w/ possible complications as evidenced by pt admitted w/ c/o abdominal pain, s/p ex lap w/ finding of small bowel perforation in distal ileum, s/p small bowel resection w/ drain, NPO at this time, day 8. 3) Altered nutrition related lab values R/T ESRD, on steroidal med, DM dx, clinical condition, as evidenced by low Na (129-> wnl), elev K (5.9-> wnl), elev phos (9.5), elev BNP (>03624), elev BGs (317 250 252- now improved), low BP, off pressors at this time- TPN initiated CURRENT TF:OGT to LIS PARENTERAL NUTRITION RECOMMENDATIONS: D/AA Rate: 75 IL Rate: 10 Total Rate: 85 Volume: 2040 % Dextrose: 18 % AA: 5.5 Energy (kcals/kg): 1978 Protein (g/kg protein): 99 Nonprotein KCALS: 1582 GIR (mg CHO/kg/min): 2.6 % Fat KCALS: 24 NCP: N Ratio: 100:1 TPN Comment: * W/ hemodynamic stability, rec TPN * D18% AA 5.5% @ 75ml/hr + IL20% @10ml/hr -> all 3:1, total of 85ml/hr. * Initiate TPN @ 25ml/hr x 6 hrs, advance 10ml q 4-6 hrs as tolerated to goal rate. * TPN @ goal will meet 100% est kcal and prot needs, 27kcal/adj kg, 1.3g prot/ adj kg. * GIR=2.6, IL <30%, NPC: 100:1 * Consider increasing insulin in TPN. ADDITIONAL RECOMMENDATIONS: 1) RE-calibrate bed scale for accurate CBW 2) RECOMMEND TPN W/ HEMODYNAMIC STABILITY- SEE ABOVE REC 3) W/ TPN: monitor lytes, BGs, LFTs daily- at high risk for refeeding 4) Consider insulin in TPN: h/o DM, elev BGs, on steroidal med
--- NOTE | 2018-05-26 11:44 | General Progress Note ---
Assessment/Plan Assessment/Plan (1) Abdominal pain (2) S/p Lap Cholecystectomy (3) Encephalopathy /septic shock (4) ESRD on hemodialysis (5) S/p emergent exploratory laboratory small bowel resection omentectomy due to small bowel perforation in distal ileum Patient to be continued on Dilaudid and Tylenol. Parameters to be continued. D/w Dr. Busby and he concurred. Subjective Date patient seen: May 26, 2018 Time patient seen: 10:00 - am ROS Limited/Unobtainable: Yes Allergies: Coded Allergies: No Known Allergies (Unverified , 11/12/12) Subjective Patient is in bed and intubated on vent. Wound vac still applied. No signs of pain at this time. D/w nurse, 2 doses of Dilaudid given to patient in the last 24hrs. Objective Last 24 Hour Vital Signs Date Time Temp Pulse Resp B/P (MAP) Pulse Ox O2 Delivery O2 Flow Rate FiO2 05/26/18 10:30 66 23 121/38 (65) 100 05/26/18 10:15 66 23 128/33 (64) 100 05/26/18 10:00 68 23 124/36 (65) 100 05/26/18 09:45 67 23 116/41 (66) 100 05/26/18 09:40 71 24 40 05/26/18 09:30 67 23 122/30 (60) 100 05/26/18 09:15 67 23 114/25 (54) 100 05/26/18 09:00 68 23 113/26 (55) 100 05/26/18 08:30 70 23 139/26 (63) 100 05/26/18 08:28 67 22 40 05/26/18 08:15 69 23 129/35 (66) 100 05/26/18 08:00 40 05/26/18 08:00 69 05/26/18 08:00 Mechanical Ventilator Mechanical Ventilator 05/26/18 08:00 96.5 68 23 139/42 (74) 100 05/26/18 07:15 68 23 139/42 (74) 100 05/26/18 07:00 68 23 106/54 (71) 100 05/26/18 06:45 69 23 116/54 (74) 100 05/26/18 06:30 70 22 105/36 (59) 100 05/26/18 06:15 70 22 102/33 (56) 100 05/26/18 06:05 70 22 101/31 (54) 100 05/26/18 05:45 70 24 95/24 (47) 100 05/26/18 05:30 72 24 112/36 (61) 100 05/26/18 05:18 69 20 40 05/26/18 05:17 72 24 113/34 (60) 100 05/26/18 05:03 70 21 104/23 (50) 100 05/26/18 04:45 76 27 112/30 (57) 100 05/26/18 04:30 71 26 91/28 (49) 100 05/26/18 04:15 97.6 72 25 113/54 (73) 100 05/26/18 04:01 110/25 05/26/18 04:00 75 05/26/18 04:00 Mechanical Ventilator Mechanical Ventilator 05/26/18 04:00 74 25 110/25 (53) 100 05/26/18 04:00 40 05/26/18 03:30 77 26 140/32 (68) 100 05/26/18 03:26 97.6 05/26/18 03:00 77 26 120/45 (70) 100 05/26/18 03:00 121/22 05/26/18 02:47 74 25 45 05/26/18 02:30 73 26 113/43 (66) 100 05/26/18 02:00 74 26 101/25 (50) 100 05/26/18 02:00 103/37 05/26/18 01:30 75 26 120/34 (62) 100 05/26/18 01:00 75 26 107/36 (59) 100 05/26/18 00:53 69 20 45 05/26/18 00:30 72 23 126/35 (65) 100 05/26/18 00:00 Mechanical Ventilator Mechanical Ventilator 05/26/18 00:00 115/33 05/26/18 00:00 97.6 74 23 133/37 (69) 100 05/25/18 23:45 69 19 Mechanical Ventilator 40 05/25/18 23:30 71 23 126/34 (64) 100 05/25/18 23:15 75 24 45 05/25/18 23:00 76 26 159/39 (79) 100 05/25/18 23:00 116/27 05/25/18 22:30 74 23 121/34 (63) 100 05/25/18 22:00 128/34 05/25/18 22:00 70 20 116/33 (60) 100 05/25/18 21:30 70 20 122/33 (62) 100 05/25/18 21:11 77 27 45 05/25/18 21:00 147/38 05/25/18 21:00 72 20 147/38 (74) 100 05/25/18 20:30 73 20 144/40 (74) 100 05/25/18 20:00 Mechanical Ventilator Mechanical Ventilator 05/25/18 20:00 72 05/25/18 20:00 40 05/25/18 20:00 144/40 05/25/18 20:00 73 27 153/47 (82) 100 05/25/18 19:30 97.5 76 22 144/40 (74) 100 05/25/18 19:21 73 24 45 05/25/18 19:00 153/47 05/25/18 19:00 78 20 153/47 (82) 100 05/25/18 18:30 61 20 102/25 (50) 100 05/25/18 18:00 67 24 105/24 (51) 100 05/25/18 17:30 76 28 124/28 (60) 100 05/25/18 17:00 82 29 164/36 (78) 98 05/25/18 16:32 76 26 45 05/25/18 16:30 69 27 107/24 (51) 100 05/25/18 16:00 45 05/25/18 16:00 Mechanical Ventilator Mechanical Ventilator 05/25/18 16:00 98.6 81 29 90/26 (47) 100 05/25/18 15:36 80 05/25/18 15:30 80 28 106/25 (52) 99 05/25/18 15:00 82 28 148/40 (76) 100 05/25/18 14:38 72 27 45 05/25/18 14:30 76 28 111/31 (57) 100 05/25/18 14:00 156/35 05/25/18 14:00 76 28 156/35 (75) 100 05/25/18 13:45 76 28 156/35 (75) 100 05/25/18 13:30 82 29 136/39 (71) 100 05/25/18 13:15 80 28 154/36 (75) 100 05/25/18 13:00 72 25 139/38 (71) 100 05/25/18 13:00 139/38 05/25/18 12:35 77 05/25/18 12:31 68 24 45 05/25/18 12:30 76 28 151/40 (77) 100 05/25/18 12:00 Mechanical Ventilator Mechanical Ventilator 05/25/18 12:00 45 05/25/18 12:00 136/29 05/25/18 12:00 98.7 80 29 136/29 (64) 100 Intake and Output 05/25/18 05/26/18 19:00 07:00 Intake Total 835.49 ml 772.005 ml Output Total 325 ml 205 ml Balance 510.49 ml 567.005 ml IV Total 835.49 ml 772.005 ml Output Urine Total 0 ml 0 ml Gastric Drainage Total 20 ml Drainage Total 305 ml 205 ml # Bowel Movements 1 1 Laboratory Tests 05/26/18 05:01: White Blood Count 10.9H, Red Blood Count 3.13L, Hemoglobin 9.5L, Hematocrit 27.2L, Mean Corpuscular Volume 87, Mean Corpuscular Hemoglobin 30.3, Mean Corpuscular Hemoglobin Concent 34.9, Red Cell Distribution Width 15.1H, Platelet Count 116L, Mean Platelet Volume 10.6H, Neutrophils (%) (Auto) , Lymphocytes (%) (Auto) , Monocytes (%) (Auto) , Eosinophils (%) (Auto) , Basophils (%) (Auto) , Differential Total Cells Counted 100, Neutrophils % ( Manual) 82H, Lymphocytes % (Manual) 2L, Monocytes % (Manual) 2, Eosinophils % ( Manual) 0, Basophils % (Manual) 0, Band Neutrophils 14H, Platelet Estimate DecreasedL, Platelet Morphology Normal, Hypochromasia 2+, Anisocytosis 1+, Erythrocyte Sedimentation Rate 71H, Prothrombin Time 14.6H, Prothromb Time International Ratio 1.4H, Activated Partial Thromboplast Time 49H, Sodium Level 125L, Potassium Level 2.9L, Chloride Level 86L, Carbon Dioxide Level 21, Anion Gap 18H, Blood Urea Nitrogen 88H, Creatinine 5.8H, Estimat Glomerular Filtration Rate , Glucose Level 302H, Uric Acid 7.5H, Calcium Level 6.9L, Phosphorus Level 7.2H, Magnesium Level 1.5L, Total Bilirubin 0.6, Aspartate Amino Transf (AST/SGOT) 34, Alanine Aminotransferase (ALT/SGPT) 18, Alkaline Phosphatase 142H, C-Reactive Protein, Quantitative 16.8H, Total Protein 4.1L, Albumin 0.9L, Globulin 3.2, Albumin/Globulin Ratio 0.3L, Triglycerides Level 268H, Cholesterol Level 62, LDL Cholesterol 29, HDL Cholesterol 6L, Cholesterol/ HDL Ratio 10.3H, Amylase Level 148H, Lipase 1241H, Random Vancomycin Level 15.2 Height (Feet): 5 Height (Inches): 4.00 Weight (Pounds): 198 Objective GENERAL: Intubated. LUNGS: Decreased breath sounds bilaterally. HEART: S1 S2 Regular. ABDOMEN: Wound vac noted. EXTREMITIES: No cyanosis. No clubbing. Sid Holland May 26, 2018 11:44
[2018-05-26] MEDS: Micafungin 100 MG in NS 110 ML IVPB SCH (12:00)
--- NOTE | 2018-05-26 12:00 | NUR ---
NURSE NOTES: Patient has been turned and reposition
--- NOTE | 2018-05-26 12:31 | General Progress Note ---
Assessment/Plan Problem List: (1) Perforated viscus ICD Codes: R19.8 - Other specified symptoms and signs involving the digestive system and abdomen SNOMED: 52475804, 756231111, 991138653 (2) ESRD (end stage renal disease) on dialysis ICD Codes: N18.6 - End stage renal disease; Z99.2 - Dependence on renal dialysis SNOMED: 068877980 (3) Shock ICD Codes: R57.9 - Shock, unspecified SNOMED: 64837646 (4) Diabetes mellitus out of control ICD Codes: E11.65 - Type 2 diabetes mellitus with hyperglycemia SNOMED: 77291909, 536533643 Assessment/Plan continue BG monitoring and Novolog sliding scale every 4 hours add Novolog 6 units every 4 hours continue Levemir 15 units bid Subjective ROS Limited/Unobtainable: Yes Allergies: Coded Allergies: No Known Allergies (Unverified , 11/12/12) Subjective intubated in icu no longer on pressors open abd incision with wound vac on TPN Objective Last 24 Hour Vital Signs Date Time Temp Pulse Resp B/P (MAP) Pulse Ox O2 Delivery O2 Flow Rate FiO2 05/26/18 11:40 67 24 40 05/26/18 10:30 66 23 121/38 (65) 100 05/26/18 10:15 66 23 128/33 (64) 100 05/26/18 10:00 68 23 124/36 (65) 100 05/26/18 09:45 67 23 116/41 (66) 100 05/26/18 09:40 71 24 40 05/26/18 09:30 67 23 122/30 (60) 100 05/26/18 09:15 67 23 114/25 (54) 100 05/26/18 09:00 68 23 113/26 (55) 100 05/26/18 08:30 70 23 139/26 (63) 100 05/26/18 08:28 67 22 40 05/26/18 08:15 69 23 129/35 (66) 100 05/26/18 08:00 40 05/26/18 08:00 69 05/26/18 08:00 Mechanical Ventilator Mechanical Ventilator 05/26/18 08:00 96.5 68 23 139/42 (74) 100 05/26/18 07:15 68 23 139/42 (74) 100 05/26/18 07:00 68 23 106/54 (71) 100 05/26/18 06:45 69 23 116/54 (74) 100 05/26/18 06:30 70 22 105/36 (59) 100 05/26/18 06:15 70 22 102/33 (56) 100 05/26/18 06:05 70 22 101/31 (54) 100 05/26/18 05:45 70 24 95/24 (47) 100 05/26/18 05:30 72 24 112/36 (61) 100 05/26/18 05:18 69 20 40 05/26/18 05:17 72 24 113/34 (60) 100 05/26/18 05:03 70 21 104/23 (50) 100 05/26/18 04:45 76 27 112/30 (57) 100 05/26/18 04:30 71 26 91/28 (49) 100 05/26/18 04:15 97.6 72 25 113/54 (73) 100 05/26/18 04:01 110/25 05/26/18 04:00 75 05/26/18 04:00 Mechanical Ventilator Mechanical Ventilator 05/26/18 04:00 74 25 110/25 (53) 100 05/26/18 04:00 40 05/26/18 03:30 77 26 140/32 (68) 100 05/26/18 03:26 97.6 05/26/18 03:00 77 26 120/45 (70) 100 05/26/18 03:00 121/22 05/26/18 02:47 74 25 45 05/26/18 02:30 73 26 113/43 (66) 100 05/26/18 02:00 74 26 101/25 (50) 100 05/26/18 02:00 103/37 05/26/18 01:30 75 26 120/34 (62) 100 05/26/18 01:00 75 26 107/36 (59) 100 05/26/18 00:53 69 20 45 05/26/18 00:30 72 23 126/35 (65) 100 05/26/18 00:00 Mechanical Ventilator Mechanical Ventilator 05/26/18 00:00 115/33 05/26/18 00:00 97.6 74 23 133/37 (69) 100 05/25/18 23:45 69 19 Mechanical Ventilator 40 05/25/18 23:30 71 23 126/34 (64) 100 05/25/18 23:15 75 24 45 05/25/18 23:00 76 26 159/39 (79) 100 05/25/18 23:00 116/27 05/25/18 22:30 74 23 121/34 (63) 100 05/25/18 22:00 128/34 05/25/18 22:00 70 20 116/33 (60) 100 05/25/18 21:30 70 20 122/33 (62) 100 05/25/18 21:11 77 27 45 05/25/18 21:00 147/38 05/25/18 21:00 72 20 147/38 (74) 100 05/25/18 20:30 73 20 144/40 (74) 100 05/25/18 20:00 Mechanical Ventilator Mechanical Ventilator 05/25/18 20:00 72 05/25/18 20:00 40 05/25/18 20:00 144/40 05/25/18 20:00 73 27 153/47 (82) 100 05/25/18 19:30 97.5 76 22 144/40 (74) 100 05/25/18 19:21 73 24 45 05/25/18 19:00 153/47 05/25/18 19:00 78 20 153/47 (82) 100 05/25/18 18:30 61 20 102/25 (50) 100 05/25/18 18:00 67 24 105/24 (51) 100 05/25/18 17:30 76 28 124/28 (60) 100 05/25/18 17:00 82 29 164/36 (78) 98 05/25/18 16:32 76 26 45 05/25/18 16:30 69 27 107/24 (51) 100 05/25/18 16:00 45 05/25/18 16:00 Mechanical Ventilator Mechanical Ventilator 05/25/18 16:00 98.6 81 29 90/26 (47) 100 05/25/18 15:36 80 05/25/18 15:30 80 28 106/25 (52) 99 05/25/18 15:00 82 28 148/40 (76) 100 05/25/18 14:38 72 27 45 05/25/18 14:30 76 28 111/31 (57) 100 05/25/18 14:00 156/35 05/25/18 14:00 76 28 156/35 (75) 100 05/25/18 13:45 76 28 156/35 (75) 100 05/25/18 13:30 82 29 136/39 (71) 100 05/25/18 13:15 80 28 154/36 (75) 100 05/25/18 13:00 72 25 139/38 (71) 100 05/25/18 13:00 139/38 05/25/18 12:35 77 05/25/18 12:31 68 24 45 05/25/18 12:30 76 28 151/40 (77) 100 Intake and Output 05/25/18 05/26/18 19:00 07:00 Intake Total 835.49 ml 772.005 ml Output Total 325 ml 205 ml Balance 510.49 ml 567.005 ml IV Total 835.49 ml 772.005 ml Output Urine Total 0 ml 0 ml Gastric Drainage Total 20 ml Drainage Total 305 ml 205 ml # Bowel Movements 1 1 Laboratory Tests 05/26/18 05:01: White Blood Count 10.9H, Red Blood Count 3.13L, Hemoglobin 9.5L, Hematocrit 27.2L, Mean Corpuscular Volume 87, Mean Corpuscular Hemoglobin 30.3, Mean Corpuscular Hemoglobin Concent 34.9, Red Cell Distribution Width 15.1H, Platelet Count 116L, Mean Platelet Volume 10.6H, Neutrophils (%) (Auto) , Lymphocytes (%) (Auto) , Monocytes (%) (Auto) , Eosinophils (%) (Auto) , Basophils (%) (Auto) , Differential Total Cells Counted 100, Neutrophils % ( Manual) 82H, Lymphocytes % (Manual) 2L, Monocytes % (Manual) 2, Eosinophils % ( Manual) 0, Basophils % (Manual) 0, Band Neutrophils 14H, Platelet Estimate DecreasedL, Platelet Morphology Normal, Hypochromasia 2+, Anisocytosis 1+, Erythrocyte Sedimentation Rate 71H, Prothrombin Time 14.6H, Prothromb Time International Ratio 1.4H, Activated Partial Thromboplast Time 49H, Sodium Level 125L, Potassium Level 2.9L, Chloride Level 86L, Carbon Dioxide Level 21, Anion Gap 18H, Blood Urea Nitrogen 88H, Creatinine 5.8H, Estimat Glomerular Filtration Rate , Glucose Level 302H, Uric Acid 7.5H, Calcium Level 6.9L, Phosphorus Level 7.2H, Magnesium Level 1.5L, Total Bilirubin 0.6, Aspartate Amino Transf (AST/SGOT) 34, Alanine Aminotransferase (ALT/SGPT) 18, Alkaline Phosphatase 142H, C-Reactive Protein, Quantitative 16.8H, Total Protein 4.1L, Albumin 0.9L, Globulin 3.2, Albumin/Globulin Ratio 0.3L, Triglycerides Level 268H, Cholesterol Level 62, LDL Cholesterol 29, HDL Cholesterol 6L, Cholesterol/ HDL Ratio 10.3H, Amylase Level 148H, Lipase 1241H, Random Vancomycin Level 15.2 Height (Feet): 5 Height (Inches): 4.00 Weight (Pounds): 198 General Appearance: other - intubated EENT: other - ETT Neck: normal alignment Cardiovascular: regular rhythm Respiratory/Chest: decreased breath sounds Abdomen: hypoactive bowel sounds, other - wound vac Pelvis: normal external exam Edema: 1+ Arm (L), 1+ Arm (R), 1+ Leg (L), 1+ Leg (R), 1+ Pedal (L), 1+ Pedal ( R), 1+ Generalized Objective Current Medications Medications (Trade) Dose Ordered Sig/Min Route PRN Reason Start Time Stop Time Status Last Admin Dose Admin Acetaminophen (Tylenol) 650 mg Q4H PRN ORAL Mild Pain/Temp > 100.5 05/12/18 15:30 06/09/18 15:29 05/20/18 20:53 Acetaminophen (Tylenol) 650 mg Q4H PRN RECTAL Mild Pain/Temp > 100.5 05/21/18 12:00 06/20/18 11:59 Cefepime HCl 2 gm/ Dextrose 55 ml @ 110 mls/hr Q24H IVPB 05/25/18 13:00 06/01/18 12:59 05/25/18 13:10 Chlorhexidine Gluconate (Tatyana-Hex 2%) 1 applic DAILY@2000 TOPIC 05/12/18 20:00 06/11/18 19:59 05/25/18 20:30 Dextrose 1,000 ml @ 0 mls/hr Q24H PRN IV PN interrupted or unavailable 05/25/18 21:00 06/24/18 20:59 Dextrose (Dextrose 50%) 25 ml Q30M PRN IV Hypoglycemia 05/24/18 16:45 06/23/18 16:44 Dextrose (Dextrose 50%) 50 ml Q30M PRN IV Hypoglycemia 05/24/18 16:45 06/23/18 16:44 Fat Emulsion Intravenous 250 ml/Amino Acids/ Electrolytes/ Dextrose 2,050 ml @ 85.417 mls/ hr Q24H IV 05/26/18 21:00 06/25/18 20:59 Fat Emulsion Intravenous 250 ml/Amino Acids/ Electrolytes/ Dextrose 2,170 ml @ 90.417 mls/ hr Q24H IV 05/25/18 21:00 05/26/18 20:59 05/25/18 20:32 Hydrocortisone (Solu-CORTEF) 50 mg EVERY 8 HOURS IV 05/26/18 14:00 06/20/18 21:59 Hydromorphone HCl (Dilaudid) 1 mg Q2H PRN IVP Severe Pain (Pain Scale 7-10) 05/24/18 09:45 05/29/18 09:44 05/26/18 02:56 Insulin Aspart (NovoLOG) EVERY 4 HOURS SUBQ 05/24/18 17:00 06/15/18 20:59 05/26/18 09:25 Insulin Detemir (Levemir) 15 units Q12HR SUBQ 05/26/18 09:00 06/23/18 17:59 05/26/18 09:39 Levofloxacin 50 ml @ 50 mls/hr Q24H IVPB 05/25/18 13:00 06/01/18 12:59 05/25/18 13:10 Metronidazole 100 ml @ 100 mls/hr Q8HR IVPB 05/25/18 14:00 06/01/18 13:59 05/26/18 05:37 Micafungin Sodium 100 mg/Sodium Chloride 110 ml @ 110 mls/hr Q24H IVPB 05/21/18 12:00 05/28/18 11:59 05/25/18 12:29 Norepinephrine Bitartrate 8 mg/ Dextrose 500 ml @ 0 mls/hr Q24H IV 05/21/18 14:30 06/20/18 14:29 05/25/18 09:38 Ondansetron HCl (Zofran) 4 mg Q6H PRN IVP Nausea & Vomiting 05/15/18 23:30 06/14/18 23:29 Pantoprazole (Protonix) 40 mg EVERY 12 HOURS IVP 05/12/18 21:00 06/10/18 20:59 05/26/18 08:47 Phytonadione (Vitamin K) 10 mg ONCE A WEEK SUBQ 05/25/18 21:00 06/24/18 20:59 05/25/18 20:30 Vasopressin 100 units/Sodium Chloride 100 ml @ 0 mls/hr Q24H IV 05/22/18 11:30 06/21/18 11:29 05/23/18 17:47 Item Value Date Time Bedside Blood Glucose 252 mg/dl H 05/24/18 1631 Bedside Blood Glucose 185 mg/dl H 05/24/18 1240 Bedside Blood Glucose 275 mg/dl H 05/24/18 0630 Bedside Blood Glucose 243 mg/dl H 05/23/18 2127 Bedside Blood Glucose 303 mg/dl H 05/26/18 0939 HDL Cholesterol 6 MG/DL L 05/26/18 0501 Bedside Blood Glucose 275 mg/dl H 05/26/18 0434 Bedside Blood Glucose 240 mg/dl H 05/26/18 0113 Bedside Blood Glucose 127 mg/dl H 05/25/18 2100 Bedside Blood Glucose 147 mg/dl H 05/25/18 1755 Rashad Koenig MD May 26, 2018 12:31
--- NOTE | 2018-05-26 12:54 | Nephrology Progress Note ---
Assessment/Plan Problem List: (1) ESRD (end stage renal disease) on dialysis (2) Perforated bowel (3) Hyponatremia (4) Major depression (5) Nausea & vomiting (6) H/O abdominal surgery Assessment: recent (7) Shock Assessment recent abdominal surgery hemodynamically stablized over night Presents with CHF and Low Na ESRD ACS DM HTN h/o GI bleed Depression Plan off pressors on TPN HD 05/24 done next 05/27 transfused 2 units- started TPN per Dr Clarke request on steroids vented insulin for high BS hold dig , check levels, resume as needed no NGT ,On Vent Psych started Zoloft PO ? Will DC ZOLOFT. Has abd surgery 05/15 Perforated bowel graft clotted , has a femoral felice right HOLD ALL MIND ALTERING MEDS - DC all po meds FLUID CHALLENGE pressors as needed BP HR Pain control discussed with RN and Dr Karen LAUREN protonix Subjective ROS Limited/Unobtainable: Yes Objective Objective Last 24 Hour Vital Signs Date Time Temp Pulse Resp B/P (MAP) Pulse Ox O2 Delivery O2 Flow Rate FiO2 05/26/18 11:40 67 24 40 05/26/18 10:30 66 23 121/38 (65) 100 05/26/18 10:15 66 23 128/33 (64) 100 05/26/18 10:00 68 23 124/36 (65) 100 05/26/18 09:45 67 23 116/41 (66) 100 05/26/18 09:40 71 24 40 05/26/18 09:30 67 23 122/30 (60) 100 05/26/18 09:15 67 23 114/25 (54) 100 05/26/18 09:00 68 23 113/26 (55) 100 05/26/18 08:30 70 23 139/26 (63) 100 05/26/18 08:28 67 22 40 05/26/18 08:15 69 23 129/35 (66) 100 05/26/18 08:00 40 05/26/18 08:00 69 05/26/18 08:00 Mechanical Ventilator Mechanical Ventilator 05/26/18 08:00 96.5 68 23 139/42 (74) 100 05/26/18 07:15 68 23 139/42 (74) 100 05/26/18 07:00 68 23 106/54 (71) 100 05/26/18 06:45 69 23 116/54 (74) 100 05/26/18 06:30 70 22 105/36 (59) 100 05/26/18 06:15 70 22 102/33 (56) 100 05/26/18 06:05 70 22 101/31 (54) 100 05/26/18 05:45 70 24 95/24 (47) 100 05/26/18 05:30 72 24 112/36 (61) 100 05/26/18 05:18 69 20 40 05/26/18 05:17 72 24 113/34 (60) 100 05/26/18 05:03 70 21 104/23 (50) 100 05/26/18 04:45 76 27 112/30 (57) 100 05/26/18 04:30 71 26 91/28 (49) 100 05/26/18 04:15 97.6 72 25 113/54 (73) 100 05/26/18 04:01 110/25 05/26/18 04:00 75 05/26/18 04:00 Mechanical Ventilator Mechanical Ventilator 05/26/18 04:00 74 25 110/25 (53) 100 05/26/18 04:00 40 05/26/18 03:30 77 26 140/32 (68) 100 05/26/18 03:26 97.6 05/26/18 03:00 77 26 120/45 (70) 100 05/26/18 03:00 121/22 05/26/18 02:47 74 25 45 05/26/18 02:30 73 26 113/43 (66) 100 05/26/18 02:00 74 26 101/25 (50) 100 05/26/18 02:00 103/37 05/26/18 01:30 75 26 120/34 (62) 100 05/26/18 01:00 75 26 107/36 (59) 100 05/26/18 00:53 69 20 45 05/26/18 00:30 72 23 126/35 (65) 100 05/26/18 00:00 Mechanical Ventilator Mechanical Ventilator 05/26/18 00:00 115/33 05/26/18 00:00 97.6 74 23 133/37 (69) 100 05/25/18 23:45 69 19 Mechanical Ventilator 40 05/25/18 23:30 71 23 126/34 (64) 100 05/25/18 23:15 75 24 45 05/25/18 23:00 76 26 159/39 (79) 100 05/25/18 23:00 116/27 05/25/18 22:30 74 23 121/34 (63) 100 05/25/18 22:00 128/34 05/25/18 22:00 70 20 116/33 (60) 100 05/25/18 21:30 70 20 122/33 (62) 100 05/25/18 21:11 77 27 45 05/25/18 21:00 147/38 05/25/18 21:00 72 20 147/38 (74) 100 05/25/18 20:30 73 20 144/40 (74) 100 05/25/18 20:00 Mechanical Ventilator Mechanical Ventilator 05/25/18 20:00 72 05/25/18 20:00 40 05/25/18 20:00 144/40 05/25/18 20:00 73 27 153/47 (82) 100 05/25/18 19:30 97.5 76 22 144/40 (74) 100 05/25/18 19:21 73 24 45 05/25/18 19:00 153/47 05/25/18 19:00 78 20 153/47 (82) 100 05/25/18 18:30 61 20 102/25 (50) 100 05/25/18 18:00 67 24 105/24 (51) 100 05/25/18 17:30 76 28 124/28 (60) 100 05/25/18 17:00 82 29 164/36 (78) 98 05/25/18 16:32 76 26 45 05/25/18 16:30 69 27 107/24 (51) 100 05/25/18 16:00 45 05/25/18 16:00 Mechanical Ventilator Mechanical Ventilator 05/25/18 16:00 98.6 81 29 90/26 (47) 100 05/25/18 15:36 80 05/25/18 15:30 80 28 106/25 (52) 99 05/25/18 15:00 82 28 148/40 (76) 100 05/25/18 14:38 72 27 45 05/25/18 14:30 76 28 111/31 (57) 100 05/25/18 14:00 156/35 1/5/19 14:00 76 28 156/35 (75) 100 05/25/18 13:45 76 28 156/35 (75) 100 05/25/18 13:30 82 29 136/39 (71) 100 05/25/18 13:15 80 28 154/36 (75) 100 05/25/18 13:00 72 25 139/38 (71) 100 05/25/18 13:00 139/38 Intake and Output 05/25/18 05/26/18 19:00 07:00 Intake Total 835.49 ml 772.005 ml Output Total 325 ml 205 ml Balance 510.49 ml 567.005 ml IV Total 835.49 ml 772.005 ml Output Urine Total 0 ml 0 ml Gastric Drainage Total 20 ml Drainage Total 305 ml 205 ml # Bowel Movements 1 1 Laboratory Tests 05/26/18 05:01: White Blood Count 10.9H, Red Blood Count 3.13L, Hemoglobin 9.5L, Hematocrit 27.2L, Mean Corpuscular Volume 87, Mean Corpuscular Hemoglobin 30.3, Mean Corpuscular Hemoglobin Concent 34.9, Red Cell Distribution Width 15.1H, Platelet Count 116L, Mean Platelet Volume 10.6H, Neutrophils (%) (Auto) , Lymphocytes (%) (Auto) , Monocytes (%) (Auto) , Eosinophils (%) (Auto) , Basophils (%) (Auto) , Differential Total Cells Counted 100, Neutrophils % ( Manual) 82H, Lymphocytes % (Manual) 2L, Monocytes % (Manual) 2, Eosinophils % ( Manual) 0, Basophils % (Manual) 0, Band Neutrophils 14H, Platelet Estimate DecreasedL, Platelet Morphology Normal, Hypochromasia 2+, Anisocytosis 1+, Erythrocyte Sedimentation Rate 71H, Prothrombin Time 14.6H, Prothromb Time International Ratio 1.4H, Activated Partial Thromboplast Time 49H, Sodium Level 125L, Potassium Level 2.9L, Chloride Level 86L, Carbon Dioxide Level 21, Anion Gap 18H, Blood Urea Nitrogen 88H, Creatinine 5.8H, Estimat Glomerular Filtration Rate , Glucose Level 302H, Uric Acid 7.5H, Calcium Level 6.9L, Phosphorus Level 7.2H, Magnesium Level 1.5L, Total Bilirubin 0.6, Aspartate Amino Transf (AST/SGOT) 34, Alanine Aminotransferase (ALT/SGPT) 18, Alkaline Phosphatase 142H, C-Reactive Protein, Quantitative 16.8H, Total Protein 4.1L, Albumin 0.9L, Globulin 3.2, Albumin/Globulin Ratio 0.3L, Triglycerides Level 268H, Cholesterol Level 62, LDL Cholesterol 29, HDL Cholesterol 6L, Cholesterol/ HDL Ratio 10.3H, Amylase Level 148H, Lipase 1241H, Random Vancomycin Level 15.2 Height (Feet): 5 Height (Inches): 4.00 Weight (Pounds): 198 General Appearance: no apparent distress EENT: other - vented Cardiovascular: normal rate Abdomen: distended Objective no change Maurilio Arroyo MD May 26, 2018 12:54
[2018-05-26] MEDS: Cefepime HCl 2 GM in D5W 55 ML IVPB SCH (13:00)
--- NOTE | 2018-05-26 14:00 | NUR ---
NURSE NOTES: Patient has been bathed and had one very mucous like bm
[2018-05-26] MEDS: Norepinephrine Bitartrate 8 MG in D5W 500ml 492 ML IV SCH (14:30)
--- NOTE | 2018-05-26 15:16 | General Progress Note ---
Assessment/Plan Problem List: (1) ACS (acute coronary syndrome) ICD Codes: I24.9 - Acute ischemic heart disease, unspecified SNOMED: 090348315 (2) ESRD (end stage renal disease) on dialysis ICD Codes: N18.6 - End stage renal disease; Z99.2 - Dependence on renal dialysis SNOMED: 121260097 (3) Depression ICD Codes: F32.9 - Major depressive disorder, single episode, unspecified SNOMED: 38692392 (4) Anemia ICD Codes: D64.9 - Anemia, unspecified SNOMED: 971874815 (5) Sacral decubitus ulcer, stage III ICD Codes: L89.153 - Pressure ulcer of sacral region, stage 3 SNOMED: 891822368, 416303922 (6) Major depression ICD Codes: F32.9 - Major depressive disorder, single episode, unspecified SNOMED: 364414425 (7) anxiety disorder (8) Atrial fibrillation ICD Codes: I48.91 - Unspecified atrial fibrillation SNOMED: 51437233 (9) Hypoxemia ICD Codes: R09.02 - Hypoxemia SNOMED: 649724304 (10) Hypotension ICD Codes: I95.9 - Hypotension, unspecified SNOMED: 82518667 (11) Shock ICD Codes: R57.9 - Shock, unspecified SNOMED: 05942124 (12) Elevated d-dimer ICD Codes: R79.89 - Other specified abnormal findings of blood chemistry SNOMED: 520682910 (13) encephalopathy due to metabolic factor Status: unchanged Assessment/Plan respiratory failure intubated s/p washout of pus / multiple exploratory lap anemia critical condition in septic shock esrd on hd s/p septic shock pna s/p lap choly w perforation (in different hospital) abx per id Subjective ROS Limited/Unobtainable: Yes Allergies: Coded Allergies: No Known Allergies (Unverified , 11/12/12) Objective Last 24 Hour Vital Signs Date Time Temp Pulse Resp B/P (MAP) Pulse Ox O2 Delivery O2 Flow Rate FiO2 05/26/18 11:40 67 24 40 05/26/18 10:30 66 23 121/38 (65) 100 05/26/18 10:15 66 23 128/33 (64) 100 05/26/18 10:00 68 23 124/36 (65) 100 05/26/18 09:45 67 23 116/41 (66) 100 05/26/18 09:40 71 24 40 05/26/18 09:30 67 23 122/30 (60) 100 05/26/18 09:15 67 23 114/25 (54) 100 05/26/18 09:00 68 23 113/26 (55) 100 05/26/18 08:30 70 23 139/26 (63) 100 05/26/18 08:28 67 22 40 05/26/18 08:15 69 23 129/35 (66) 100 05/26/18 08:00 40 05/26/18 08:00 69 05/26/18 08:00 Mechanical Ventilator Mechanical Ventilator 05/26/18 08:00 96.5 68 23 139/42 (74) 100 05/26/18 07:15 68 23 139/42 (74) 100 05/26/18 07:00 68 23 106/54 (71) 100 05/26/18 06:45 69 23 116/54 (74) 100 05/26/18 06:30 70 22 105/36 (59) 100 05/26/18 06:15 70 22 102/33 (56) 100 05/26/18 06:05 70 22 101/31 (54) 100 05/26/18 05:45 70 24 95/24 (47) 100 05/26/18 05:30 72 24 112/36 (61) 100 05/26/18 05:18 69 20 40 05/26/18 05:17 72 24 113/34 (60) 100 05/26/18 05:03 70 21 104/23 (50) 100 05/26/18 04:45 76 27 112/30 (57) 100 05/26/18 04:30 71 26 91/28 (49) 100 05/26/18 04:15 97.6 72 25 113/54 (73) 100 05/26/18 04:01 110/25 05/26/18 04:00 75 05/26/18 04:00 Mechanical Ventilator Mechanical Ventilator 05/26/18 04:00 74 25 110/25 (53) 100 05/26/18 04:00 40 05/26/18 03:30 77 26 140/32 (68) 100 05/26/18 03:26 97.6 05/26/18 03:00 77 26 120/45 (70) 100 05/26/18 03:00 121/22 05/26/18 02:47 74 25 45 05/26/18 02:30 73 26 113/43 (66) 100 05/26/18 02:00 74 26 101/25 (50) 100 05/26/18 02:00 103/37 05/26/18 01:30 75 26 120/34 (62) 100 05/26/18 01:00 75 26 107/36 (59) 100 05/26/18 00:53 69 20 45 05/26/18 00:30 72 23 126/35 (65) 100 05/26/18 00:00 Mechanical Ventilator Mechanical Ventilator 05/26/18 00:00 115/33 05/26/18 00:00 97.6 74 23 133/37 (69) 100 05/25/18 23:45 69 19 Mechanical Ventilator 40 05/25/18 23:30 71 23 126/34 (64) 100 05/25/18 23:15 75 24 45 05/25/18 23:00 76 26 159/39 (79) 100 05/25/18 23:00 116/27 05/25/18 22:30 74 23 121/34 (63) 100 05/25/18 22:00 128/34 05/25/18 22:00 70 20 116/33 (60) 100 05/25/18 21:30 70 20 122/33 (62) 100 05/25/18 21:11 77 27 45 05/25/18 21:00 147/38 05/25/18 21:00 72 20 147/38 (74) 100 05/25/18 20:30 73 20 144/40 (74) 100 05/25/18 20:00 Mechanical Ventilator Mechanical Ventilator 05/25/18 20:00 72 05/25/18 20:00 40 05/25/18 20:00 144/40 05/25/18 20:00 73 27 153/47 (82) 100 05/25/18 19:30 97.5 76 22 144/40 (74) 100 05/25/18 19:21 73 24 45 05/25/18 19:00 153/47 05/25/18 19:00 78 20 153/47 (82) 100 05/25/18 18:30 61 20 102/25 (50) 100 05/25/18 18:00 67 24 105/24 (51) 100 05/25/18 17:30 76 28 124/28 (60) 100 05/25/18 17:00 82 29 164/36 (78) 98 05/25/18 16:32 76 26 45 05/25/18 16:30 69 27 107/24 (51) 100 05/25/18 16:00 45 05/25/18 16:00 Mechanical Ventilator Mechanical Ventilator 05/25/18 16:00 98.6 81 29 90/26 (47) 100 05/25/18 15:36 80 05/25/18 15:30 80 28 106/25 (52) 99 Intake and Output 05/25/18 05/26/18 19:00 07:00 Intake Total 835.49 ml 772.005 ml Output Total 325 ml 205 ml Balance 510.49 ml 567.005 ml IV Total 835.49 ml 772.005 ml Output Urine Total 0 ml 0 ml Gastric Drainage Total 20 ml Drainage Total 305 ml 205 ml # Bowel Movements 1 1 Laboratory Tests 05/26/18 05:01: White Blood Count 10.9H, Red Blood Count 3.13L, Hemoglobin 9.5L, Hematocrit 27.2L, Mean Corpuscular Volume 87, Mean Corpuscular Hemoglobin 30.3, Mean Corpuscular Hemoglobin Concent 34.9, Red Cell Distribution Width 15.1H, Platelet Count 116L, Mean Platelet Volume 10.6H, Neutrophils (%) (Auto) , Lymphocytes (%) (Auto) , Monocytes (%) (Auto) , Eosinophils (%) (Auto) , Basophils (%) (Auto) , Differential Total Cells Counted 100, Neutrophils % ( Manual) 82H, Lymphocytes % (Manual) 2L, Monocytes % (Manual) 2, Eosinophils % ( Manual) 0, Basophils % (Manual) 0, Band Neutrophils 14H, Platelet Estimate DecreasedL, Platelet Morphology Normal, Hypochromasia 2+, Anisocytosis 1+, Erythrocyte Sedimentation Rate 71H, Prothrombin Time 14.6H, Prothromb Time International Ratio 1.4H, Activated Partial Thromboplast Time 49H, Sodium Level 125L, Potassium Level 2.9L, Chloride Level 86L, Carbon Dioxide Level 21, Anion Gap 18H, Blood Urea Nitrogen 88H, Creatinine 5.8H, Estimat Glomerular Filtration Rate , Glucose Level 302H, Uric Acid 7.5H, Calcium Level 6.9L, Phosphorus Level 7.2H, Magnesium Level 1.5L, Total Bilirubin 0.6, Aspartate Amino Transf (AST/SGOT) 34, Alanine Aminotransferase (ALT/SGPT) 18, Alkaline Phosphatase 142H, C-Reactive Protein, Quantitative [Pending], Total Protein 4.1L , Albumin 0.9L, Globulin 3.2, Albumin/Globulin Ratio 0.3L, Triglycerides Level 268H, Cholesterol Level 62, LDL Cholesterol 29, HDL Cholesterol 6L, Cholesterol/ HDL Ratio 10.3H, Amylase Level 148H, Lipase 1241H, Random Vancomycin Level 15.2 Height (Feet): 5 Height (Inches): 4.00 Weight (Pounds): 198 General Appearance: lethargic, confused Abdomen: tender Samantha Head MD May 26, 2018 15:16
--- NOTE | 2018-05-26 15:29 | Cardiac Electrophysiology PN ---
Assessment/Plan Assessment/Plan 1. Atrial fib/flutter with RVR In SR on Amio drip. Can't switch to po as NPO and unpredictable absorption in view of intestinal surgeries. Last Dig level 1.9 on 05/21/18 but off Dig 2. Chest pain. No ND. EKG showed old inferior and anterior wall ND, but no ischemia. ECHO normal LV function 3. End-stage renal disease, on hemodialysis per Dr. Arroyo. 4. Septic shock, off Levophed today. 2D Echo EF 60% and PA pressure 63 ? PE. DD 35.2. Unstable for chest CT angio. Off heparin drip now for surgery 5. History of kidney stones. 6. History of psychiatric problems, dementia. 7. Hx of lap matthew. S/P SB resection 05/15/18 with drain Has yellowish discharge from incision. On iv Abx per ID S/P redo surgery 05/23/18 that showed Anastomotic leak. Going back to OR Sunday by DR Chandler for wound closure 8. Respiratory failure, intubated on the vent. SAW RN Subjective Subjective In ICU on Amiodarone drip 0.5 mg and Levophed DCed this am. Off Heparin drip until surgery done Sunday On the Vent. Still has heavy drainage from incision Objective Last 24 Hour Vital Signs Date Time Temp Pulse Resp B/P (MAP) Pulse Ox O2 Delivery O2 Flow Rate FiO2 05/26/18 11:40 67 24 40 05/26/18 10:30 66 23 121/38 (65) 100 05/26/18 10:15 66 23 128/33 (64) 100 05/26/18 10:00 68 23 124/36 (65) 100 05/26/18 09:45 67 23 116/41 (66) 100 05/26/18 09:40 71 24 40 05/26/18 09:30 67 23 122/30 (60) 100 05/26/18 09:15 67 23 114/25 (54) 100 05/26/18 09:00 68 23 113/26 (55) 100 05/26/18 08:30 70 23 139/26 (63) 100 05/26/18 08:28 67 22 40 05/26/18 08:15 69 23 129/35 (66) 100 05/26/18 08:00 40 05/26/18 08:00 69 05/26/18 08:00 Mechanical Ventilator Mechanical Ventilator 05/26/18 08:00 96.5 68 23 139/42 (74) 100 05/26/18 07:15 68 23 139/42 (74) 100 05/26/18 07:00 68 23 106/54 (71) 100 05/26/18 06:45 69 23 116/54 (74) 100 05/26/18 06:30 70 22 105/36 (59) 100 05/26/18 06:15 70 22 102/33 (56) 100 05/26/18 06:05 70 22 101/31 (54) 100 05/26/18 05:45 70 24 95/24 (47) 100 05/26/18 05:30 72 24 112/36 (61) 100 05/26/18 05:18 69 20 40 05/26/18 05:17 72 24 113/34 (60) 100 05/26/18 05:03 70 21 104/23 (50) 100 05/26/18 04:45 76 27 112/30 (57) 100 05/26/18 04:30 71 26 91/28 (49) 100 05/26/18 04:15 97.6 72 25 113/54 (73) 100 05/26/18 04:01 110/25 05/26/18 04:00 75 05/26/18 04:00 Mechanical Ventilator Mechanical Ventilator 05/26/18 04:00 74 25 110/25 (53) 100 05/26/18 04:00 40 05/26/18 03:30 77 26 140/32 (68) 100 05/26/18 03:26 97.6 05/26/18 03:00 77 26 120/45 (70) 100 05/26/18 03:00 121/22 05/26/18 02:47 74 25 45 05/26/18 02:30 73 26 113/43 (66) 100 05/26/18 02:00 74 26 101/25 (50) 100 05/26/18 02:00 103/37 05/26/18 01:30 75 26 120/34 (62) 100 05/26/18 01:00 75 26 107/36 (59) 100 05/26/18 00:53 69 20 45 05/26/18 00:30 72 23 126/35 (65) 100 05/26/18 00:00 Mechanical Ventilator Mechanical Ventilator 05/26/18 00:00 115/33 05/26/18 00:00 97.6 74 23 133/37 (69) 100 05/25/18 23:45 69 19 Mechanical Ventilator 40 05/25/18 23:30 71 23 126/34 (64) 100 05/25/18 23:15 75 24 45 05/25/18 23:00 76 26 159/39 (79) 100 05/25/18 23:00 116/27 05/25/18 22:30 74 23 121/34 (63) 100 05/25/18 22:00 128/34 05/25/18 22:00 70 20 116/33 (60) 100 05/25/18 21:30 70 20 122/33 (62) 100 05/25/18 21:11 77 27 45 05/25/18 21:00 147/38 05/25/18 21:00 72 20 147/38 (74) 100 05/25/18 20:30 73 20 144/40 (74) 100 05/25/18 20:00 Mechanical Ventilator Mechanical Ventilator 05/25/18 20:00 72 05/25/18 20:00 40 05/25/18 20:00 144/40 05/25/18 20:00 73 27 153/47 (82) 100 05/25/18 19:30 97.5 76 22 144/40 (74) 100 05/25/18 19:21 73 24 45 05/25/18 19:00 153/47 05/25/18 19:00 78 20 153/47 (82) 100 05/25/18 18:30 61 20 102/25 (50) 100 05/25/18 18:00 67 24 105/24 (51) 100 05/25/18 17:30 76 28 124/28 (60) 100 05/25/18 17:00 82 29 164/36 (78) 98 05/25/18 16:32 76 26 45 05/25/18 16:30 69 27 107/24 (51) 100 05/25/18 16:00 45 05/25/18 16:00 Mechanical Ventilator Mechanical Ventilator 05/25/18 16:00 98.6 81 29 90/26 (47) 100 05/25/18 15:36 80 05/25/18 15:30 80 28 106/25 (52) 99 Intake and Output 05/25/18 05/26/18 19:00 07:00 Intake Total 835.49 ml 772.005 ml Output Total 325 ml 205 ml Balance 510.49 ml 567.005 ml IV Total 835.49 ml 772.005 ml Output Urine Total 0 ml 0 ml Gastric Drainage Total 20 ml Drainage Total 305 ml 205 ml # Bowel Movements 1 1 Laboratory Tests Test 05/26/18 05:01 White Blood Count 10.9 K/UL (4.8-10.8) H Red Blood Count 3.13 M/UL (4.70-6.10) L Hemoglobin 9.5 G/DL (14.2-18.0) L Hematocrit 27.2 % (42.0-52.0) L Mean Corpuscular Volume 87 FL (80-99) Mean Corpuscular Hemoglobin 30.3 PG (27.0-31.0) Mean Corpuscular Hemoglobin Concent 34.9 G/DL (32.0-36.0) Red Cell Distribution Width 15.1 % (11.6-14.8) H Platelet Count 116 K/UL (150-450) L Mean Platelet Volume 10.6 FL (6.5-10.1) H Neutrophils (%) (Auto) % (45.0-75.0) Lymphocytes (%) (Auto) % (20.0-45.0) Monocytes (%) (Auto) % (1.0-10.0) Eosinophils (%) (Auto) % (0.0-3.0) Basophils (%) (Auto) % (0.0-2.0) Differential Total Cells Counted 100 Neutrophils % (Manual) 82 % (45-75) H Lymphocytes % (Manual) 2 % (20-45) L Monocytes % (Manual) 2 % (1-10) Eosinophils % (Manual) 0 % (0-3) Basophils % (Manual) 0 % (0-2) Band Neutrophils 14 % (0-8) H Platelet Estimate Decreased L Platelet Morphology Normal Hypochromasia 2+ Anisocytosis 1+ Erythrocyte Sedimentation Rate 71 MM/HR (0-20) H Prothrombin Time 14.6 SEC (9.30-11.50) H Prothromb Time International Ratio 1.4 (0.9-1.1) H Activated Partial Thromboplast Time 49 SEC (23-33) H Sodium Level 125 MMOL/L (136-145) L Potassium Level 2.9 MMOL/L (3.5-5.1) L Chloride Level 86 MMOL/L (98-107) L Carbon Dioxide Level 21 MMOL/L (21-32) Anion Gap 18 mmol/L (5-15) H Blood Urea Nitrogen 88 mg/dL (7-18) H Creatinine 5.8 MG/DL (0.55-1.30) H Estimat Glomerular Filtration Rate mL/min (>60) Glucose Level 302 MG/DL (74-106) H Uric Acid 7.5 MG/DL (2.6-7.2) H Calcium Level 6.9 MG/DL (8.5-10.1) L Phosphorus Level 7.2 MG/DL (2.5-4.9) H Magnesium Level 1.5 MG/DL (1.8-2.4) L Total Bilirubin 0.6 MG/DL (0.2-1.0) Aspartate Amino Transf (AST/SGOT) 34 U/L (15-37) Alanine Aminotransferase (ALT/SGPT) 18 U/L (12-78) Alkaline Phosphatase 142 U/L (46-116) H C-Reactive Protein, Quantitative Pending Total Protein 4.1 G/DL (6.4-8.2) L Albumin 0.9 G/DL (3.4-5.0) L Globulin 3.2 g/dL Albumin/Globulin Ratio 0.3 (1.0-2.7) L Triglycerides Level 268 MG/DL (30-150) H Cholesterol Level 62 MG/DL (< 200) LDL Cholesterol 29 mg/dL (<100) HDL Cholesterol 6 MG/DL (40-60) L Cholesterol/HDL Ratio 10.3 (3.3-4.4) H Amylase Level 148 U/L (25-115) H Lipase 1241 U/L (73-393) H Random Vancomycin Level 15.2 ug/mL Objective HEENT: Orally intubated Cardiovascular: Sinus tachycardia Respiratory/Chest: Lungs clear, normal breath sounds Abdomen: Post op.with one VELVET drain and incision is covered with WoundVac Extremities: No edema. Right groin dialysis catheter Everett Stephenson MD May 26, 2018 15:29
--- NOTE | 2018-05-26 18:23 | NUR ---
NURSE NOTES: [facility] has been contacted to come early tmr morning to get HD before procedure (surgery)
[2018-05-26] MEDS ORDERED: Amiodarone 900 MG in D5W 500ml 482 ML IV SCH (18:30)
--- NOTE | 2018-05-26 19:00 | NUR ---
RESPIRATORY NOTE: PT. RECEIVED STABLE ON CMV WITH CURRENT SETTINGS. ALARMS ON AND AUDIBLE. VENT CIRCUIT AND SX TUBBING SECURE AND OUT OF THE WAY. ETT SECURE ON ANCHOR FAST. NO S/S OF RESPIRATORY DISTRESS NOTED AT THIS TIME. WILL CONTINUE TO MONITOR.
--- NOTE | 2018-05-26 19:15 | NUR ---
NURSE NOTES: Received pt from [facility]. Pt is alert, able to nod and shake head for yes and no questions. Spontaneously opens eyes and withdraws to pain. Orally intubated with ETT 8.5/24cm at lipline, AC 16/TV 500/Fio2 32%/PEEP +5, SPo2 100%, RR 23. Rhonchi heard in bilateral breath sounds. NSR on teletypesetter monitor with HR 70, BP 106/30. Pt has a wound vac on abd, 125mmHg, no leakage noted. Moderate to large amt of serosanguineous drainage. VELVET drainage on left lower abd, with minimal serosanguineous drainage. OGT in place and on lower intermittent suction. NPO status maintained. Pt has LFA AC shunt that is not working. Left subclavian TLC running Amio 0.5mg/hr and TPN. Donis catheter on right femoral noted. Pt has a R. cephalic vein occlusion. No BP on rosa. arms with sign noted. Bed locked, alarmed and in lowest position. Will continue plan of care.
--- NOTE | 2018-05-26 19:57 | NUR ---
NURSE NOTES: DR elise has ordered 2gm mag, 30meq of potassium for electrolys
--- NOTE | 2018-05-26 19:58 | NUR ---
NURSE NOTES: [facility] has been called for appointment tmr
[2018-05-26] MEDS: TPN IV SCH (20:35)
[2018-05-26] MEDS: FAT EMULSION 20% IV SCH (20:35)
[2018-05-26] MEDS: Dyna-Hex 2% Top Sol 2oz TOPIC SCH (20:37)
--- NOTE | 2018-05-26 20:59 | General Progress Note ---
Assessment/Plan Assessment/Plan # Anemia of chronic disease due to underlying chronic medical issues, multifactorial --> Anemia w/u has been reviewed, reordered and ferritin is >2000 --> Monitor for stability --> trend 10.3-->7.6-->8.9-->10.3-->9.5 --> not bleeding currently # Small bowel perforation, s/p bowel resection, with Gram negative sepsis is on abx In ICU s/p Small bowel resection --> on broad spectrum abx --> on vanc/cefepime as per id--> now changed to zosyn, flagyl, micafungin --> s/p sb resection on 05/15, appreciate surg recs --> on 2 pressors as well,++ vent --> to OR on 05/23, surgeon to access # Hypofibrinoginemia -- potentially cosumptive process given sepsis --> Discussed with RN, Sofie, patient requires 10 units coprecipitate on 05/23, requires emergency transfusion, unable to obtain consent, no family available, thus 2 MD consent obtained # Lower extremity edema with an elevated BNP in a patient with renal failure on hemodialysis. --> on HD per Dr. Arroyo. --> currently has improved # Atrial fib w rvr/flutter, being seen by cards, has converted to sr --> Cardiology is following, appreciate recs, echo was reviewed --> Currently denies any chest pain, completely rule out ACS --> EKG showed old inferior and anterior wall MO, but no ischemia. 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 --> Nephro is following, appreciate recs. HD appeox 3x a week --> On intermittent HD # Respiratory failure on a vent, intubated The time of note does not necessarily reflect the time of encounter Greatly appreciate consultation! Subjective ROS Limited/Unobtainable: Yes Allergies: Coded Allergies: No Known Allergies (Unverified , 11/12/12) Subjective 05/12: Pt resting in bed. No acute events. H/H stable. On abx. VS stable. 12/24: on pressors, on hep gtt, on steriods, abx, got hd, felice catheter in place : CT-A was negative, hep gtt as per cards, abg reviewed, moaning on exam, on ceftriaxone 05/15 :Pt remains in ICU. Currently undergoing HD. Pt on 2 cardiac drips for elevated Bp. WBC remains elevated. H/H stable. 05/16: s/p sb resection, In ICU s/p Small bowel resection on Amiodarone and Levophed drip. HR around 100. 05/17: Orally intubated on Ac 16, Vt 500, P 5 fio2 30%. Pt continues NPO at this time. Right upper arm and right FA IV sites patent and intact at this time. Amio gtt running 05/18: Pt remains in ICU. Pt for STAT HD. WBC remains elevated, afebrile. 05/19: getting hd periodically, no other events, vent to be weaned, labs reviewed, on dilaudid, ativan and fentanyl per pulm 05/21: prognosis is more guarded, no events to report, no f/c, but on two pressors now, on hep gtt for antonio thrombosis, hd as well 3x/week 05/22: on 2 pressors, seen by cards, renal, ryan drain draining improved, still on vent, converted to sr, on amio gtt, lactic acid downtrending, minimally responsive, on heparin gtt as well for antonio thrombus 05/23: patient to go to OR ginette potential washout, ostomy, and line placement, fibrinogen low, needs cryoprecipirate, will also check inr/pt, cbc reviewed, electrolytes noted 05/24: Patient continues to be intubated on vent. He is s/p exploratory lap with wound washout and wound vac placement. 05/25: Pt is seen in the room, resting in bed. doing well since wound vac change , cbc reviewed, plt 163 05/26: Patient is is seen at bedside, intubated on vent. Wound vac still applied. No signs of pain at this time. Plt 116 . Objective Last 24 Hour Vital Signs Date Time Temp Pulse Resp B/P (MAP) Pulse Ox O2 Delivery O2 Flow Rate FiO2 05/26/18 19:00 69 23 108/25 (52) 100 05/26/18 18:30 69 23 114/22 (52) 100 05/26/18 18:15 72 23 84/60 (68) 100 05/26/18 18:00 72 23 145/113 (124) 100 05/26/18 17:45 96.7 69 23 127/26 (59) 100 05/26/18 17:30 69 23 133/26 (61) 100 05/26/18 17:15 68 23 122/27 (58) 100 05/26/18 17:10 70 23 35 05/26/18 17:00 68 23 119/29 (59) 100 05/26/18 16:30 69 23 135/55 (81) 100 05/26/18 16:15 68 23 115/32 (59) 100 05/26/18 16:00 40 05/26/18 16:00 Mechanical Ventilator Mechanical Ventilator 05/26/18 16:00 68 23 121/20 (53) 100 05/26/18 16:00 72 05/26/18 15:45 72 23 123/27 (59) 100 05/26/18 15:38 71 23 35 05/26/18 15:30 71 23 119/28 (58) 100 05/26/18 15:15 74 23 128/51 (76) 100 05/26/18 15:00 68 23 127/61 (83) 100 05/26/18 14:45 67 23 141/66 (91) 100 05/26/18 14:30 121/38 05/26/18 14:30 66 23 122/34 (63) 100 05/26/18 14:15 66 23 118/32 (60) 100 05/26/18 14:00 67 23 134/36 (68) 100 05/26/18 13:45 64 23 110/29 (56) 100 05/26/18 13:30 65 23 131/87 (102) 100 05/26/18 13:15 65 23 123/34 (63) 100 05/26/18 13:00 64 23 120/44 (69) 100 05/26/18 12:45 64 23 117/30 (59) 100 05/26/18 12:30 66 23 122/33 (62) 100 05/26/18 12:15 67 23 122/33 (62) 100 05/26/18 12:00 40 05/26/18 12:00 67 23 121/33 (62) 100 05/26/18 12:00 70 05/26/18 12:00 Mechanical Ventilator Mechanical Ventilator 05/26/18 11:45 66 23 120/37 (64) 100 05/26/18 11:40 67 24 40 05/26/18 11:30 67 23 114/34 (60) 100 05/26/18 11:00 66 23 121/38 (65) 100 05/26/18 10:30 66 23 121/38 (65) 100 05/26/18 10:15 66 23 128/33 (64) 100 05/26/18 10:00 68 23 124/36 (65) 100 05/26/18 09:45 67 23 116/41 (66) 100 05/26/18 09:40 71 24 40 05/26/18 09:30 67 23 122/30 (60) 100 05/26/18 09:15 67 23 114/25 (54) 100 05/26/18 09:00 68 23 113/26 (55) 100 05/26/18 08:30 70 23 139/26 (63) 100 05/26/18 08:28 67 22 40 05/26/18 08:15 69 23 129/35 (66) 100 05/26/18 08:00 40 05/26/18 08:00 69 05/26/18 08:00 Mechanical Ventilator Mechanical Ventilator 05/26/18 08:00 96.5 68 23 139/42 (74) 100 05/26/18 07:15 68 23 139/42 (74) 100 05/26/18 07:00 68 23 106/54 (71) 100 05/26/18 06:45 69 23 116/54 (74) 100 05/26/18 06:30 70 22 105/36 (59) 100 05/26/18 06:15 70 22 102/33 (56) 100 05/26/18 06:05 70 22 101/31 (54) 100 05/26/18 05:45 70 24 95/24 (47) 100 05/26/18 05:30 72 24 112/36 (61) 100 05/26/18 05:18 69 20 40 05/26/18 05:17 72 24 113/34 (60) 100 05/26/18 05:03 70 21 104/23 (50) 100 05/26/18 04:45 76 27 112/30 (57) 100 05/26/18 04:30 71 26 91/28 (49) 100 05/26/18 04:15 97.6 72 25 113/54 (73) 100 05/26/18 04:01 110/25 05/26/18 04:00 75 05/26/18 04:00 Mechanical Ventilator Mechanical Ventilator 05/26/18 04:00 74 25 110/25 (53) 100 05/26/18 04:00 40 05/26/18 03:30 77 26 140/32 (68) 100 05/26/18 03:26 97.6 05/26/18 03:00 77 26 120/45 (70) 100 05/26/18 03:00 121/22 05/26/18 02:47 74 25 45 05/26/18 02:30 73 26 113/43 (66) 100 05/26/18 02:00 74 26 101/25 (50) 100 05/26/18 02:00 103/37 05/26/18 01:30 75 26 120/34 (62) 100 05/26/18 01:00 75 26 107/36 (59) 100 05/26/18 00:53 69 20 45 05/26/18 00:30 72 23 126/35 (65) 100 05/26/18 00:00 Mechanical Ventilator Mechanical Ventilator 05/26/18 00:00 115/33 05/26/18 00:00 97.6 74 23 133/37 (69) 100 05/25/18 23:45 69 19 Mechanical Ventilator 40 05/25/18 23:30 71 23 126/34 (64) 100 05/25/18 23:15 75 24 45 05/25/18 23:00 76 26 159/39 (79) 100 05/25/18 23:00 116/27 05/25/18 22:30 74 23 121/34 (63) 100 05/25/18 22:00 128/34 05/25/18 22:00 70 20 116/33 (60) 100 05/25/18 21:30 70 20 122/33 (62) 100 05/25/18 21:11 77 27 45 05/25/18 21:00 147/38 05/25/18 21:00 72 20 147/38 (74) 100 Intake and Output 05/25/18 05/26/18 19:00 07:00 Intake Total 835.49 ml 862.422 ml Output Total 325 ml 205 ml Balance 510.49 ml 657.422 ml IV Total 835.49 ml 862.422 ml Output Urine Total 0 ml 0 ml Gastric Drainage Total 20 ml Drainage Total 305 ml 205 ml # Bowel Movements 1 1 Laboratory Tests 05/26/18 05:01: White Blood Count 10.9H, Red Blood Count 3.13L, Hemoglobin 9.5L, Hematocrit 27.2L, Mean Corpuscular Volume 87, Mean Corpuscular Hemoglobin 30.3, Mean Corpuscular Hemoglobin Concent 34.9, Red Cell Distribution Width 15.1H, Platelet Count 116L, Mean Platelet Volume 10.6H, Neutrophils (%) (Auto) , Lymphocytes (%) (Auto) , Monocytes (%) (Auto) , Eosinophils (%) (Auto) , Basophils (%) (Auto) , Differential Total Cells Counted 100, Neutrophils % ( Manual) 82H, Lymphocytes % (Manual) 2L, Monocytes % (Manual) 2, Eosinophils % ( Manual) 0, Basophils % (Manual) 0, Band Neutrophils 14H, Platelet Estimate DecreasedL, Platelet Morphology Normal, Hypochromasia 2+, Anisocytosis 1+, Erythrocyte Sedimentation Rate 71H, Prothrombin Time 14.6H, Prothromb Time International Ratio 1.4H, Activated Partial Thromboplast Time 49H, Sodium Level 125L, Potassium Level 2.9L, Chloride Level 86L, Carbon Dioxide Level 21, Anion Gap 18H, Blood Urea Nitrogen 88H, Creatinine 5.8H, Estimat Glomerular Filtration Rate , Glucose Level 302H, Uric Acid 7.5H, Calcium Level 6.9L, Phosphorus Level 7.2H, Magnesium Level 1.5L, Total Bilirubin 0.6, Aspartate Amino Transf (AST/SGOT) 34, Alanine Aminotransferase (ALT/SGPT) 18, Alkaline Phosphatase 142H, C-Reactive Protein, Quantitative [Pending], Total Protein 4.1L , Albumin 0.9L, Globulin 3.2, Albumin/Globulin Ratio 0.3L, Triglycerides Level 268H, Cholesterol Level 62, LDL Cholesterol 29, HDL Cholesterol 6L, Cholesterol/ HDL Ratio 10.3H, Amylase Level 148H, Lipase 1241H, Random Vancomycin Level 15.2 Height (Feet): 5 Height (Inches): 4.00 Weight (Pounds): 198 Objective PHYSICAL EXAMINATION: VITAL SIGNS: Have been reviewed HEENT: PERRLA. vent++ NECK: Supple. No lymphadenopathy. CHEST: ++ intubated CARDIOVASCULAR: Tachycardic. GASTROINTESTINAL: Distended. Positive bowel sounds. Nontender. No organomegaly. ++ ryan drain in place EXTREMITY: 2+ edema. NEURO: responsive to simple command Reinaldo Leon MD May 26, 2018 20:59
--- NOTE | 2018-05-26 21:30 | NUR ---
NURSE NOTES: Oral care given. Clear mucous bm noted. Turned and repositioned.
--- NOTE | 2018-05-26 22:00 | NUR ---
RESPIRATORY NOTE: FIO2 INCREASED TO 50% DUE TO DESATURATION AND LABORED BREATHING. WILL CONTINUE TO MONITOR.
--- NOTE | 2018-05-26 23:00 | NUR ---
NURSE NOTES: ETT suction noted with thick pale yellow secretions with tinge of blood.
[2018-05-27] VITALS (39 sets, daily range): BP systolic 81–149; BP diastolic 23–100
[2018-05-27] MEDS: NovoLOG Insulin Flexpen SUBQ SCH ×12 (00:28→21:00)
--- NOTE | 2018-05-27 02:36 | NUR ---
NURSE NOTES: BP stable, off pressors. TPN infusing well. Turned and repositioned. SPO2 100%, RR 27. Wound vac canister changed. lg to mod amt of clear mucous gastric sxn noted.
--- NOTE | 2018-05-27 04:55 | NUR ---
NURSE NOTES: HR drops to 56 at times and goes back up to 60-70's. BP stable, patient in supine position. CHG bath given, linen and gown changed.
--- NOTE | 2018-05-27 05:00 | NUR ---
RESPIRATORY NOTE: PT. STABLE ON CME WITH CURRENT SETTING. CIRCUIT SECURE AND OUT OF THE WAY. PT SX PRN. NO S/S OF RESPIRATORY DISTRESS NOTED AT THIS TIME.
[2018-05-27 05:32] LABS: HEMATOCRIT 26.3 % (42.0-52.0); HEMOGLOBIN 9.2 G/DL (14.2-18.0); MEAN CORPUSCULAR VOLUME 86 FL (80-99); PLATELET COUNT 89 K/UL (150-450); RED BLOOD COUNT 3.06 M/UL (4.70-6.10); RED CELL DISTRIBUTION WIDTH 15.3 % (11.6-14.8); WHITE BLOOD COUNT 13.4 K/UL (4.8-10.8)
[2018-05-27 05:40] LABS: INR 1.3 (0.9-1.1)
[2018-05-27 05:59] LABS: ALANINE AMINOTRANSFERASE 13 U/L (12-78); ALBUMIN 0.8 G/DL (3.4-5.0); ALBUMIN/GLOBULIN RATIO 0.3 (1.0-2.7); ALKALINE PHOSPHATASE 131 U/L (46-116); ANION GAP 20 mmol/L (5-15); ASPARTATE AMINO TRANSFERASE 22 U/L (15-37); BILIRUBIN,TOTAL 0.5 MG/DL (0.2-1.0); BLOOD UREA NITROGEN 104 mg/dL (7-18); CALCIUM 6.9 MG/DL (8.5-10.1); CARBON DIOXIDE 18 MMOL/L (21-32); CHLORIDE 85 MMOL/L (98-107); CHOLESTEROL 54 MG/DL (< 200); CREATININE 5.9 MG/DL (0.55-1.30); GAMMA GLUTAMYL TRANSPEPTIDASE 41 U/L (5-85); HDL CHOLESTEROL 9 MG/DL (40-60); PHOSPHORUS 6.4 MG/DL (2.5-4.9); SODIUM 123 MMOL/L (136-145); TRIGLYCERIDES 202 MG/DL (30-150)
[2018-05-27 06:08] LABS: POTASSIUM 2.2 MMOL/L (3.5-5.1)
[2018-05-27] MEDS: Hydrocortisone 100mg Inj IV SCH ×3 (06:20→22:00)
[2018-05-27] MEDS ORDERED: Phytonadione 10 MG in D5W 55 ML IVPB ONE (07:00)
--- NOTE | 2018-05-27 07:05 | NUR ---
RESPIRATORY NOTE: Received pt on ETT 8.5 @ 24cm lips line, secured by anchor fast, with current setting: AC 16-500ml-45% FiO2- peep of 5, saturates at 100%. Pt is wake, alert, tolerating well the vent setting. No SOB or acute resp distress noted. Alarms are set and audible, ambu bag is at bedside, vent is plugged into the red outlet. Will continue to monitor pt ans sxn as needed.
--- NOTE | 2018-05-27 07:13 | General Progress Note ---
Assessment/Plan Problem List: (1) Perforated viscus ICD Codes: R19.8 - Other specified symptoms and signs involving the digestive system and abdomen SNOMED: 29630873, 580193897, 861014430 (2) ESRD (end stage renal disease) on dialysis ICD Codes: N18.6 - End stage renal disease; Z99.2 - Dependence on renal dialysis SNOMED: 519989271 (3) Shock ICD Codes: R57.9 - Shock, unspecified SNOMED: 23911952 (4) Diabetes mellitus out of control ICD Codes: E11.65 - Type 2 diabetes mellitus with hyperglycemia SNOMED: 04452675, 700714697 Assessment/Plan continue BG monitoring and Novolog sliding scale every 4 hours increase Novolog to 10 units every 4 hours increase Levemir to 20 units bid Subjective ROS Limited/Unobtainable: Yes Allergies: Coded Allergies: No Known Allergies (Unverified , 11/12/12) Subjective intubated in icu open abd incision with wound vac on TPN Objective Last 24 Hour Vital Signs Date Time Temp Pulse Resp B/P (MAP) Pulse Ox O2 Delivery O2 Flow Rate FiO2 05/27/18 07:05 22 29 45 05/27/18 06:00 67 28 100/48 (65) 100 05/27/18 05:53 45 05/27/18 05:30 73 28 109/61 (77) 100 05/27/18 05:00 62 24 50 05/27/18 05:00 69 28 121/54 (76) 100 05/27/18 04:30 97.3 60 28 149/62 (91) 100 05/27/18 04:00 32 05/27/18 04:00 Mechanical Ventilator Mechanical Ventilator 05/27/18 04:00 63 05/27/18 04:00 70 28 143/54 (83) 100 05/27/18 03:30 69 28 122/60 (80) 100 05/27/18 03:02 62 27 50 05/27/18 03:00 64 28 113/48 (69) 100 05/27/18 02:00 64 28 116/48 (70) 100 05/27/18 01:30 67 28 94/58 (70) 100 05/27/18 01:00 97.5 66 27 132/56 (81) 100 05/27/18 00:52 61 29 50 05/27/18 00:30 65 29 109/23 (51) 100 05/27/18 00:00 65 23 108/38 (61) 100 05/27/18 00:00 Mechanical Ventilator Mechanical Ventilator 05/27/18 00:00 32 05/27/18 00:00 68 05/26/18 23:30 72 23 93/37 (55) 100 05/26/18 23:04 71 24 50 05/26/18 23:02 72 23 113/51 (71) 100 05/26/18 22:30 71 28 116/48 (70) 100 05/26/18 22:00 76 27 169/64 (99) 100 05/26/18 21:30 64 26 76/41 (53) 100 05/26/18 21:00 63 23 94/59 (71) 100 05/26/18 21:00 70 32 30 05/26/18 20:30 67 29 97/18 (44) 100 05/26/18 20:00 69 23 108/25 (52) 100 05/26/18 20:00 70 05/26/18 20:00 32 05/26/18 20:00 Mechanical Ventilator Mechanical Ventilator 05/26/18 19:30 70 28 118/33 (61) 100 05/26/18 19:15 96.7 72 23 112/32 (58) 100 05/26/18 19:00 69 23 108/25 (52) 100 05/26/18 19:00 68 29 30 05/26/18 18:30 69 23 114/22 (52) 100 05/26/18 18:15 72 23 84/60 (68) 100 05/26/18 18:00 72 23 145/113 (124) 100 05/26/18 17:45 96.7 69 23 127/26 (59) 100 05/26/18 17:30 69 23 133/26 (61) 100 05/26/18 17:15 68 23 122/27 (58) 100 05/26/18 17:10 70 23 35 05/26/18 17:00 68 23 119/29 (59) 100 05/26/18 16:30 69 23 135/55 (81) 100 05/26/18 16:15 68 23 115/32 (59) 100 05/26/18 16:00 40 05/26/18 16:00 Mechanical Ventilator Mechanical Ventilator 05/26/18 16:00 68 23 121/20 (53) 100 05/26/18 16:00 72 05/26/18 15:45 72 23 123/27 (59) 100 05/26/18 15:38 71 23 35 05/26/18 15:30 71 23 119/28 (58) 100 05/26/18 15:15 74 23 128/51 (76) 100 05/26/18 15:00 68 23 127/61 (83) 100 05/26/18 14:45 67 23 141/66 (91) 100 05/26/18 14:30 121/38 05/26/18 14:30 66 23 122/34 (63) 100 05/26/18 14:15 66 23 118/32 (60) 100 05/26/18 14:00 67 23 134/36 (68) 100 05/26/18 13:45 64 23 110/29 (56) 100 05/26/18 13:30 65 23 131/87 (102) 100 05/26/18 13:15 65 23 123/34 (63) 100 05/26/18 13:00 64 23 120/44 (69) 100 05/26/18 12:45 64 23 117/30 (59) 100 05/26/18 12:30 66 23 122/33 (62) 100 05/26/18 12:15 67 23 122/33 (62) 100 05/26/18 12:00 40 05/26/18 12:00 67 23 121/33 (62) 100 05/26/18 12:00 70 05/26/18 12:00 Mechanical Ventilator Mechanical Ventilator 05/26/18 11:45 66 23 120/37 (64) 100 05/26/18 11:40 67 24 40 05/26/18 11:30 67 23 114/34 (60) 100 05/26/18 11:00 66 23 121/38 (65) 100 05/26/18 10:30 66 23 121/38 (65) 100 05/26/18 10:15 66 23 128/33 (64) 100 05/26/18 10:00 68 23 124/36 (65) 100 05/26/18 09:45 67 23 116/41 (66) 100 05/26/18 09:40 71 24 40 05/26/18 09:30 67 23 122/30 (60) 100 05/26/18 09:15 67 23 114/25 (54) 100 05/26/18 09:00 68 23 113/26 (55) 100 05/26/18 08:30 70 23 139/26 (63) 100 05/26/18 08:28 67 22 40 05/26/18 08:15 69 23 129/35 (66) 100 05/26/18 08:00 40 05/26/18 08:00 69 05/26/18 08:00 Mechanical Ventilator Mechanical Ventilator 05/26/18 08:00 96.5 68 23 139/42 (74) 100 05/26/18 07:15 68 23 139/42 (74) 100 Intake and Output 05/26/18 05/27/18 18:59 06:59 Intake Total 1235.004 ml 516.948 ml Output Total 45 ml 1682 ml Balance 1190.004 ml -1165.052 ml IV Total 1235.004 ml 516.948 ml Output Urine Total 45 ml 10 ml Gastric Drainage Total 900 ml Drainage Total 772 ml # Bowel Movements 2 2 Laboratory Tests 05/27/18 04:20: White Blood Count 13.4H, Red Blood Count 3.06L, Hemoglobin 9.2L, Hematocrit 26.3L, Mean Corpuscular Volume 86, Mean Corpuscular Hemoglobin 30.2, Mean Corpuscular Hemoglobin Concent 35.1, Red Cell Distribution Width 15.3H, Platelet Count 89L, Mean Platelet Volume 10.0, Neutrophils (%) (Auto) , Lymphocytes (%) (Auto) , Monocytes (%) (Auto) , Eosinophils (%) (Auto) , Basophils (%) (Auto) , Neutrophils % (Manual) [Pending], Lymphocytes % (Manual) [Pending], Platelet Estimate [Pending], Platelet Morphology [Pending], Prothrombin Time 13.2H, Prothromb Time International Ratio 1.3H, Activated Partial Thromboplast Time 45H, Sodium Level 123L, Potassium Level 2.2*L, Chloride Level 85L, Carbon Dioxide Level 18L, Anion Gap 20H, Blood Urea Nitrogen 104H, Creatinine 5.9H, Estimat Glomerular Filtration Rate , Glucose Level 236H, Uric Acid 7.6H, Calcium Level 6.9L, Phosphorus Level 6.4H, Magnesium Level 1.6L, Total Bilirubin 0.5, Gamma Glutamyl Transpeptidase 41, Aspartate Amino Transf (AST/SGOT) 22, Alanine Aminotransferase (ALT/SGPT) 13, Alkaline Phosphatase 131H, Pro-B-Type Natriuretic Peptide 20567X, Total Protein 3.9L, Albumin 0.8L, Globulin 3.1, Albumin/Globulin Ratio 0.3L, Triglycerides Level 202H, Cholesterol Level 54, LDL Cholesterol 29, HDL Cholesterol 9L, Cholesterol/HDL Ratio 6.0H Height (Feet): 5 Height (Inches): 5.00 Weight (Pounds): 197 General Appearance: severe distress, other - intubated EENT: other - ETT Neck: normal alignment Cardiovascular: tachycardia Respiratory/Chest: decreased breath sounds Abdomen: hypoactive bowel sounds Pelvis: normal external exam Objective Current Medications Medications (Trade) Dose Ordered Sig/Min Route PRN Reason Start Time Stop Time Status Last Admin Dose Admin Acetaminophen (Tylenol) 650 mg Q4H PRN RECTAL Mild Pain/Temp > 100.5 05/21/18 12:00 06/20/18 11:59 Amiodarone HCl 900 mg/Dextrose 500 ml @ 0 mls/hr Q24H IV 05/26/18 18:30 05/27/18 18:29 05/26/18 18:55 Cefepime HCl 2 gm/ Dextrose 55 ml @ 110 mls/hr Q24H IVPB 05/25/18 13:00 06/01/18 12:59 05/26/18 13:00 Chlorhexidine Gluconate (Tatyana-Hex 2%) 1 applic DAILY@2000 TOPIC 05/12/18 20:00 06/11/18 19:59 05/26/18 20:37 Dextrose 1,000 ml @ 0 mls/hr Q24H PRN IV PN interrupted or unavailable 05/25/18 21:00 06/24/18 20:59 Dextrose (Dextrose 50%) 25 ml Q30M PRN IV Hypoglycemia 05/26/18 12:45 06/25/18 12:44 Dextrose (Dextrose 50%) 50 ml Q30M PRN IV Hypoglycemia 05/26/18 12:45 06/25/18 12:44 Fat Emulsion Intravenous 250 ml/Amino Acids/ Electrolytes/ Dextrose 2,050 ml @ 85.417 mls/ hr Q24H IV 05/26/18 21:00 2/5/19 20:59 05/26/18 20:35 Hydrocortisone (Solu-CORTEF) 50 mg EVERY 8 HOURS IV 05/26/18 14:00 06/20/18 21:59 05/27/18 06:20 Hydromorphone HCl (Dilaudid) 1 mg Q2H PRN IVP Severe Pain (Pain Scale 7-10) 05/24/18 09:45 05/29/18 09:44 05/26/18 02:56 Insulin Aspart (NovoLOG) EVERY 4 HOURS SUBQ 05/24/18 17:00 06/15/18 20:59 05/27/18 05:30 Insulin Aspart (NovoLOG) 6 units EVERY 4 HOURS SUBQ 05/26/18 13:00 06/25/18 12:59 05/27/18 05:29 Insulin Detemir (Levemir) 15 units Q12HR SUBQ 05/26/18 09:00 06/23/18 17:59 05/26/18 20:35 Levofloxacin 50 ml @ 50 mls/hr Q24H IVPB 05/25/18 13:00 06/01/18 12:59 05/26/18 14:10 Metronidazole 100 ml @ 100 mls/hr Q8HR IVPB 05/25/18 14:00 06/01/18 13:59 05/27/18 06:20 Micafungin Sodium 100 mg/Sodium Chloride 110 ml @ 110 mls/hr Q24H IVPB 05/21/18 12:00 05/28/18 11:59 05/26/18 12:00 Norepinephrine Bitartrate 8 mg/ Dextrose 500 ml @ 0 mls/hr Q24H IV 05/21/18 14:30 06/20/18 14:29 05/25/18 09:38 Ondansetron HCl (Zofran) 4 mg Q6H PRN IVP Nausea & Vomiting 05/15/18 23:30 06/14/18 23:29 Pantoprazole (Protonix) 40 mg EVERY 12 HOURS IVP 05/12/18 21:00 06/10/18 20:59 05/26/18 20:37 Phytonadione (Vitamin K) 10 mg ONCE A WEEK SUBQ 05/25/18 21:00 06/24/18 20:59 05/25/18 20:30 Phytonadione 10 mg/Dextrose 56 ml @ 112 mls/hr ONCE ONCE IVPB 05/27/18 07:00 05/27/18 07:29 Potassium Chloride 100 ml @ 50 mls/hr ONCE ONCE IVPB 05/27/18 06:45 05/27/18 08:44 Vasopressin 100 units/Sodium Chloride 100 ml @ 0 mls/hr Q24H IV 05/22/18 11:30 06/21/18 11:29 05/23/18 17:47 Item Value Date Time Bedside Blood Glucose 256 mg/dl H 05/27/18 0530 Bedside Blood Glucose 275 mg/dl H 05/27/18 0100 Bedside Blood Glucose 313 mg/dl H 05/26/18 2037 Bedside Blood Glucose 318 mg/dl H 05/26/18 1712 Bedside Blood Glucose 418 mg/dl H 05/26/18 1413 Bedside Blood Glucose 303 mg/dl H 05/26/18 0939 Rashad Koenig MD May 27, 2018 07:12
--- NOTE | 2018-05-27 07:55 | NUR ---
NURSE NOTES: Report given by ramone
--- NOTE | 2018-05-27 07:56 | NUR ---
NURSE NOTES: Patient is resting in bed , awake and alert able to acknowledge understand of questions in [place]. [place]. Has wound vac in the abdomen. Patient is due have a surgery to day . Dr fragoso is aware and emergency consent has been signed. Potassium is being replaced. Nonverbal on a ventilator. On q 4hr accheck. Is currently getting hemodialysis.
--- NOTE | 2018-05-27 08:17 | General Progress Note ---
Assessment/Plan Assessment/Plan # Anemia of chronic disease due to underlying chronic medical issues, multifactorial --> Anemia w/u has been reviewed, reordered and ferritin is >2000 --> Monitor for stability --> trend 10.3-->7.6-->8.9-->10.3-->9.5-->9.2 --> not bleeding currently # Thrombocytopenia due to septic shock --> vit K given for coagulopathy --> plt 163k-->116k-->83k # Small bowel perforation, s/p bowel resection, with Gram negative sepsis is on abx In ICU s/p Small bowel resection --> on broad spectrum abx --> on vanc/cefepime as per id--> now changed to zosyn, flagyl, micafungin --> s/p sb resection on 05/15, appreciate surg recs --> on 2 pressors as well,++ vent # Hypofibrinoginemia -- potentially cosumptive process given sepsis --> cryo given weeek of 05/23 --> FIBRINOGEN reordered # Lower extremity edema with an elevated BNP in a patient with renal failure on hemodialysis. --> on HD per Dr. Arroyo. --> currently has improved # Atrial fib w rvr/flutter, being seen by cards, has converted to sr --> Cardiology is following, appreciate recs, echo was reviewed --> Currently denies any chest pain, completely rule out ACS --> EKG showed old inferior and anterior wall GA, but no ischemia. 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 --> Nephro is following, appreciate recs. HD appeox 3x a week --> On intermittent HD # Respiratory failure on a vent, intubated The time of note does not necessarily reflect the time of encounter Greatly appreciate consultation! Subjective ROS Limited/Unobtainable: Yes Allergies: Coded Allergies: No Known Allergies (Unverified , 11/12/12) Subjective 05/12: Pt resting in bed. No acute events. H/H stable. On abx. VS stable. 05/13: on pressors, on hep gtt, on steriods, abx, got hd, felice catheter in place : CT-A was negative, hep gtt as per cards, abg reviewed, moaning on exam, on ceftriaxone 05/15 :Pt remains in ICU. Currently undergoing HD. Pt on 2 cardiac drips for elevated Bp. WBC remains elevated. H/H stable. 05/16: s/p sb resection, In ICU s/p Small bowel resection on Amiodarone and Levophed drip. HR around 100. 05/17: Orally intubated on Ac 16, Vt 500, P 5 fio2 30%. Pt continues NPO at this time. Right upper arm and right FA IV sites patent and intact at this time. Amio gtt running 05/18: Pt remains in ICU. Pt for STAT HD. WBC remains elevated, afebrile. 05/19: getting hd periodically, no other events, vent to be weaned, labs reviewed, on dilaudid, ativan and fentanyl per pulm 05/21: prognosis is more guarded, no events to report, no f/c, but on two pressors now, on hep gtt for antonio thrombosis, hd as well 3x/week 05/22: on 2 pressors, seen by cards, renal, ryan drain draining improved, still on vent, converted to sr, on amio gtt, lactic acid downtrending, minimally responsive, on heparin gtt as well for antonio thrombus 05/23: patient to go to OR [facility] potential washout, ostomy, and line placement, fibrinogen low, needs cryoprecipirate, will also check inr/pt, cbc reviewed, electrolytes noted 05/24: Patient continues to be intubated on vent. He is s/p exploratory lap with wound washout and wound vac placement. 05/25: Pt is seen in the room, resting in bed. doing well since wound vac change , cbc reviewed, plt 163 05/26: Patient is is seen at bedside, intubated on vent. Wound vac still applied. No signs of pain at this time. Plt 116 . 1.7: again off pressors, plt somewhat lower, monitoring meds, on amio, antifungal as well, could be contributing, platelets and vitk given Objective Last 24 Hour Vital Signs Date Time Temp Pulse Resp B/P (MAP) Pulse Ox O2 Delivery O2 Flow Rate FiO2 05/27/18 08:00 66 28 132/90 (104) 100 05/27/18 07:35 Endotracheal Tube 45 05/27/18 07:05 22 29 45 05/27/18 07:00 64 28 91/38 (55) 100 05/27/18 06:00 67 28 100/48 (65) 100 05/27/18 05:53 45 05/27/18 05:30 73 28 109/61 (77) 100 05/27/18 05:00 62 24 50 05/27/18 05:00 69 28 121/54 (76) 100 05/27/18 04:30 97.3 60 28 149/62 (91) 100 05/27/18 04:00 32 05/27/18 04:00 Mechanical Ventilator Mechanical Ventilator 05/27/18 04:00 63 05/27/18 04:00 70 28 143/54 (83) 100 05/27/18 03:30 69 28 122/60 (80) 100 05/27/18 03:02 62 27 50 05/27/18 03:00 64 28 113/48 (69) 100 05/27/18 02:00 64 28 116/48 (70) 100 05/27/18 01:30 67 28 94/58 (70) 100 05/27/18 01:00 97.5 66 27 132/56 (81) 100 05/27/18 00:52 61 29 50 05/27/18 00:30 65 29 109/23 (51) 100 05/27/18 00:00 65 23 108/38 (61) 100 05/27/18 00:00 Mechanical Ventilator Mechanical Ventilator 05/27/18 00:00 32 05/27/18 00:00 68 05/26/18 23:30 72 23 93/37 (55) 100 05/26/18 23:04 71 24 50 05/26/18 23:02 72 23 113/51 (71) 100 05/26/18 22:30 71 28 116/48 (70) 100 05/26/18 22:00 76 27 169/64 (99) 100 05/26/18 21:30 64 26 76/41 (53) 100 05/26/18 21:00 63 23 94/59 (71) 100 05/26/18 21:00 70 32 30 05/26/18 20:30 67 29 97/18 (44) 100 05/26/18 20:00 69 23 108/25 (52) 100 05/26/18 20:00 70 05/26/18 20:00 32 05/26/18 20:00 Mechanical Ventilator Mechanical Ventilator 05/26/18 19:30 70 28 118/33 (61) 100 05/26/18 19:15 96.7 72 23 112/32 (58) 100 05/26/18 19:00 69 23 108/25 (52) 100 05/26/18 19:00 68 29 30 05/26/18 18:30 69 23 114/22 (52) 100 05/26/18 18:15 72 23 84/60 (68) 100 05/26/18 18:00 72 23 145/113 (124) 100 05/26/18 17:45 96.7 69 23 127/26 (59) 100 05/26/18 17:30 69 23 133/26 (61) 100 05/26/18 17:15 68 23 122/27 (58) 100 05/26/18 17:10 70 23 35 05/26/18 17:00 68 23 119/29 (59) 100 05/26/18 16:30 69 23 135/55 (81) 100 05/26/18 16:15 68 23 115/32 (59) 100 05/26/18 16:00 40 05/26/18 16:00 Mechanical Ventilator Mechanical Ventilator 05/26/18 16:00 68 23 121/20 (53) 100 05/26/18 16:00 72 05/26/18 15:45 72 23 123/27 (59) 100 05/26/18 15:38 71 23 35 05/26/18 15:30 71 23 119/28 (58) 100 05/26/18 15:15 74 23 128/51 (76) 100 05/26/18 15:00 68 23 127/61 (83) 100 05/26/18 14:45 67 23 141/66 (91) 100 05/26/18 14:30 121/38 05/26/18 14:30 66 23 122/34 (63) 100 05/26/18 14:15 66 23 118/32 (60) 100 05/26/18 14:00 67 23 134/36 (68) 100 05/26/18 13:45 64 23 110/29 (56) 100 05/26/18 13:30 65 23 131/87 (102) 100 05/26/18 13:15 65 23 123/34 (63) 100 05/26/18 13:00 64 23 120/44 (69) 100 05/26/18 12:45 64 23 117/30 (59) 100 05/26/18 12:30 66 23 122/33 (62) 100 05/26/18 12:15 67 23 122/33 (62) 100 05/26/18 12:00 40 05/26/18 12:00 67 23 121/33 (62) 100 05/26/18 12:00 70 05/26/18 12:00 Mechanical Ventilator Mechanical Ventilator 05/26/18 11:45 66 23 120/37 (64) 100 05/26/18 11:40 67 24 40 05/26/18 11:30 67 23 114/34 (60) 100 05/26/18 11:00 66 23 121/38 (65) 100 05/26/18 10:30 66 23 121/38 (65) 100 05/26/18 10:15 66 23 128/33 (64) 100 05/26/18 10:00 68 23 124/36 (65) 100 05/26/18 09:45 67 23 116/41 (66) 100 05/26/18 09:40 71 24 40 05/26/18 09:30 67 23 122/30 (60) 100 05/26/18 09:15 67 23 114/25 (54) 100 05/26/18 09:00 68 23 113/26 (55) 100 05/26/18 08:30 70 23 139/26 (63) 100 05/26/18 08:28 67 22 40 05/26/18 08:15 69 23 129/35 (66) 100 Intake and Output 05/26/18 05/27/18 19:00 07:00 Intake Total 1161.247 ml 500.288 ml Output Total 917 ml 810 ml Balance 244.247 ml -309.712 ml IV Total 1161.247 ml 500.288 ml Output Urine Total 45 ml 10 ml Gastric Drainage Total 400 ml 500 ml Drainage Total 472 ml 300 ml # Bowel Movements 2 2 Laboratory Tests 05/27/18 04:20: White Blood Count 13.4H, Red Blood Count 3.06L, Hemoglobin 9.2L, Hematocrit 26.3L, Mean Corpuscular Volume 86, Mean Corpuscular Hemoglobin 30.2, Mean Corpuscular Hemoglobin Concent 35.1, Red Cell Distribution Width 15.3H, Platelet Count 89L, Mean Platelet Volume 10.0, Neutrophils (%) (Auto) , Lymphocytes (%) (Auto) , Monocytes (%) (Auto) , Eosinophils (%) (Auto) , Basophils (%) (Auto) , Neutrophils % (Manual) [Pending], Lymphocytes % (Manual) [Pending], Platelet Estimate [Pending], Platelet Morphology [Pending], Prothrombin Time 13.2H, Prothromb Time International Ratio 1.3H, Activated Partial Thromboplast Time 45H, Sodium Level 123L, Potassium Level 2.2*L, Chloride Level 85L, Carbon Dioxide Level 18L, Anion Gap 20H, Blood Urea Nitrogen 104H, Creatinine 5.9H, Estimat Glomerular Filtration Rate , Glucose Level 236H, Uric Acid 7.6H, Calcium Level 6.9L, Phosphorus Level 6.4H, Magnesium Level 1.6L, Total Bilirubin 0.5, Gamma Glutamyl Transpeptidase 41, Aspartate Amino Transf (AST/SGOT) 22, Alanine Aminotransferase (ALT/SGPT) 13, Alkaline Phosphatase 131H, Pro-B-Type Natriuretic Peptide 33813C, Total Protein 3.9L, Albumin 0.8L, Globulin 3.1, Albumin/Globulin Ratio 0.3L, Triglycerides Level 202H, Cholesterol Level 54, LDL Cholesterol 29, HDL Cholesterol 9L, Cholesterol/HDL Ratio 6.0H Height (Feet): 5 Height (Inches): 5.00 Weight (Pounds): 197 Objective PHYSICAL EXAMINATION: VITAL SIGNS: Have been reviewed HEENT: PERRLA. vent++ NECK: Supple. No lymphadenopathy. CHEST: ++ intubated CARDIOVASCULAR: Tachycardic. GASTROINTESTINAL: Distended. Positive bowel sounds. Nontender. No organomegaly. ++ ryan drain in place EXTREMITY: 2+ edema. NEURO: responsive to simple command Reinaldo Leon MD May 27, 2018 08:17
[2018-05-27] MEDS: Pantoprazole Inj IVP SCH ×2 (09:00→20:11)
[2018-05-27] MEDS: Levemir Flexpen SUBQ SCH ×2 (10:07→21:44)
--- NOTE | 2018-05-27 10:41 | NUR ---
NURSE NOTES: Pharmacy : Rn has spoken with pharmacist josé about two orders of potassium replacement. I order from [facility] and 1 order from [facility] for 50meq of potassium. one bag of 20meq of K given will give 30meq K more from [facility] order for a total of 50meq.
[2018-05-27] MEDS: Vasopressin 100 UNITS in NS 95 ML IV SCH (11:30)
--- NOTE | 2018-05-27 11:33 | Nephrology Progress Note ---
Assessment/Plan Problem List: (1) ESRD (end stage renal disease) on dialysis (2) Perforated bowel (3) Hyponatremia (4) Major depression (5) Nausea & vomiting (6) H/O abdominal surgery Assessment: recent (7) Shock Assessment recent abdominal surgery hemodynamically stablized over night Presents with CHF and Low Na ESRD ACS DM HTN h/o GI bleed Depression Plan need pressors periodically on TPN HD 05/24 done next 05/27 - done - 1999 cc transfused 2 units- started TPN per Dr Clarke request on steroids vented insulin for high BS hold dig , check levels, resume as needed no NGT ,On Vent Psych started Zoloft PO ? Will DC ZOLOFT. Has abd surgery 05/15 Perforated bowel graft clotted , has a femoral felice right HOLD ALL MIND ALTERING MEDS - DC all po meds FLUID CHALLENGE pressors as needed BP HR Pain control discussed with RN and Dr Jones IV protonix Subjective ROS Limited/Unobtainable: Yes Objective Objective Last 24 Hour Vital Signs Date Time Temp Pulse Resp B/P (MAP) Pulse Ox O2 Delivery O2 Flow Rate FiO2 05/27/18 09:10 60 18 45 05/27/18 08:00 68 05/27/18 08:00 66 28 132/90 (104) 100 05/27/18 08:00 32 05/27/18 08:00 Mechanical Ventilator Mechanical Ventilator 05/27/18 07:35 Endotracheal Tube 45 05/27/18 07:05 60 29 45 05/27/18 07:00 64 28 91/38 (55) 100 05/27/18 06:00 67 28 100/48 (65) 100 05/27/18 05:53 45 05/27/18 05:30 73 28 109/61 (77) 100 05/27/18 05:00 62 24 50 05/27/18 05:00 69 28 121/54 (76) 100 05/27/18 04:30 97.3 60 28 149/62 (91) 100 05/27/18 04:00 32 05/27/18 04:00 Mechanical Ventilator Mechanical Ventilator 05/27/18 04:00 63 05/27/18 04:00 70 28 143/54 (83) 100 05/27/18 03:30 69 28 122/60 (80) 100 05/27/18 03:02 62 27 50 1/7/19 03:00 64 28 113/48 (69) 100 05/27/18 02:00 64 28 116/48 (70) 100 05/27/18 01:30 67 28 94/58 (70) 100 05/27/18 01:00 97.5 66 27 132/56 (81) 100 05/27/18 00:52 61 29 50 05/27/18 00:30 65 29 109/23 (51) 100 05/27/18 00:00 65 23 108/38 (61) 100 05/27/18 00:00 Mechanical Ventilator Mechanical Ventilator 05/27/18 00:00 32 05/27/18 00:00 68 05/26/18 23:30 72 23 93/37 (55) 100 05/26/18 23:04 71 24 50 05/26/18 23:02 72 23 113/51 (71) 100 05/26/18 22:30 71 28 116/48 (70) 100 05/26/18 22:00 76 27 169/64 (99) 100 05/26/18 21:30 64 26 76/41 (53) 100 05/26/18 21:00 63 23 94/59 (71) 100 05/26/18 21:00 70 32 30 05/26/18 20:30 67 29 97/18 (44) 100 05/26/18 20:00 69 23 108/25 (52) 100 05/26/18 20:00 70 05/26/18 20:00 32 05/26/18 20:00 Mechanical Ventilator Mechanical Ventilator 05/26/18 19:30 70 28 118/33 (61) 100 05/26/18 19:15 96.7 72 23 112/32 (58) 100 05/26/18 19:00 69 23 108/25 (52) 100 05/26/18 19:00 68 29 30 05/26/18 18:30 69 23 114/22 (52) 100 05/26/18 18:15 72 23 84/60 (68) 100 05/26/18 18:00 72 23 145/113 (124) 100 05/26/18 17:45 96.7 69 23 127/26 (59) 100 05/26/18 17:30 69 23 133/26 (61) 100 05/26/18 17:15 68 23 122/27 (58) 100 05/26/18 17:10 70 23 35 05/26/18 17:00 68 23 119/29 (59) 100 05/26/18 16:30 69 23 135/55 (81) 100 05/26/18 16:15 68 23 115/32 (59) 100 05/26/18 16:00 40 05/26/18 16:00 Mechanical Ventilator Mechanical Ventilator 05/26/18 16:00 68 23 121/20 (53) 100 05/26/18 16:00 72 05/26/18 15:45 72 23 123/27 (59) 100 05/26/18 15:38 71 23 35 05/26/18 15:30 71 23 119/28 (58) 100 05/26/18 15:15 74 23 128/51 (76) 100 05/26/18 15:00 68 23 127/61 (83) 100 05/26/18 14:45 67 23 141/66 (91) 100 05/26/18 14:30 121/38 05/26/18 14:30 66 23 122/34 (63) 100 05/26/18 14:15 66 23 118/32 (60) 100 05/26/18 14:00 67 23 134/36 (68) 100 05/26/18 13:45 64 23 110/29 (56) 100 05/26/18 13:30 65 23 131/87 (102) 100 05/26/18 13:15 65 23 123/34 (63) 100 05/26/18 13:00 64 23 120/44 (69) 100 05/26/18 12:45 64 23 117/30 (59) 100 05/26/18 12:30 66 23 122/33 (62) 100 05/26/18 12:15 67 23 122/33 (62) 100 05/26/18 12:00 40 05/26/18 12:00 67 23 121/33 (62) 100 05/26/18 12:00 70 05/26/18 12:00 Mechanical Ventilator Mechanical Ventilator 05/26/18 11:45 66 23 120/37 (64) 100 05/26/18 11:40 67 24 40 Intake and Output 05/26/18 05/27/18 19:00 07:00 Intake Total 1161.247 ml 500.288 ml Output Total 917 ml 810 ml Balance 244.247 ml -309.712 ml IV Total 1161.247 ml 500.288 ml Output Urine Total 45 ml 10 ml Gastric Drainage Total 400 ml 500 ml Drainage Total 472 ml 300 ml # Bowel Movements 2 2 Laboratory Tests 05/27/18 04:20: White Blood Count 13.4H, Red Blood Count 3.06L, Hemoglobin 9.2L, Hematocrit 26.3L, Mean Corpuscular Volume 86, Mean Corpuscular Hemoglobin 30.2, Mean Corpuscular Hemoglobin Concent 35.1, Red Cell Distribution Width 15.3H, Platelet Count 89L, Mean Platelet Volume 10.0, Neutrophils (%) (Auto) , Lymphocytes (%) (Auto) , Monocytes (%) (Auto) , Eosinophils (%) (Auto) , Basophils (%) (Auto) , Differential Total Cells Counted 100, Neutrophils % ( Manual) 82H, Lymphocytes % (Manual) 3L, Monocytes % (Manual) 2, Eosinophils % ( Manual) 0, Basophils % (Manual) 0, Band Neutrophils 13H, Platelet Estimate DecreasedL, Platelet Morphology Normal, Polychromasia 1+, Hypochromasia 1+, Anisocytosis 2+, Prothrombin Time 13.2H, Prothromb Time International Ratio 1.3H , Activated Partial Thromboplast Time 45H, Fibrinogen 541H, Sodium Level 123L, Potassium Level 2.2*L, Chloride Level 85L, Carbon Dioxide Level 18L, Anion Gap 20H, Blood Urea Nitrogen 104H, Creatinine 5.9H, Estimat Glomerular Filtration Rate , Glucose Level 236H, Uric Acid 7.6H, Calcium Level 6.9L, Phosphorus Level 6.4H, Magnesium Level 1.6L, Total Bilirubin 0.5, Gamma Glutamyl Transpeptidase 41, Aspartate Amino Transf (AST/SGOT) 22, Alanine Aminotransferase (ALT/SGPT) 13 , Alkaline Phosphatase 131H, Pro-B-Type Natriuretic Peptide 35271A, Total Protein 3.9L, Albumin 0.8L, Globulin 3.1, Albumin/Globulin Ratio 0.3L, Triglycerides Level 202H, Cholesterol Level 54, LDL Cholesterol 29, HDL Cholesterol 9L, Cholesterol/HDL Ratio 6.0H Height (Feet): 5 Height (Inches): 5.00 Weight (Pounds): 197 General Appearance: no apparent distress Cardiovascular: normal rate Respiratory/Chest: decreased breath sounds Abdomen: distended Objective no change Maurilio Arroyo MD May 27, 2018 11:33
[2018-05-27] MEDS ORDERED: Phytonadione 10 MG in D5W 55 ML IVPB SCH (12:00)
--- NOTE | 2018-05-27 12:30 | Pulmonolgy Critical Care Note ---
Critical Care - Asmt/Plan Problems: (1) Shock (2) Hypoxemia (3) Elevated d-dimer Assessment & Plan: S/P neg CT-A + UE DVT (4) Hypotension (5) Atrial fibrillation (6) ESRD (end stage renal disease) on dialysis (7) ACS (acute coronary syndrome) (8) Sacral decubitus ulcer, stage III (9) S/P cholecystectomy (10) Serratia sepsis (11) S/P exploratory laparotomy (12) Perforated viscus (13) Thrombocythemia Assessment/Plan: -Titrate NE to keep Map > 60 -Continue HC 50 TID and taper -Continue ventilatory support/settings reviewed -Titrate down FiO2 to keep SaO2 > 90%, continue PEEP 5 -HD per renal as able -Amio gtt per cards/EPS, off Dilt -[facility] held -Monitor platelets, F/U heme recs, cryo, FFP, FU DIC labs -Monitor CBC, transfuse as needed -Monitor for bleeding -Arabella, Levaquin, Flagyl and Cefepime per ID, F/U Cx's -F/U surgery recs --> OCT[facility] today -FC D/W RN and RT CCT 45 Critical Care - Objective Last 24 Hour Vital Signs Date Time Temp Pulse Resp B/P (MAP) Pulse Ox O2 Delivery O2 Flow Rate FiO2 05/27/18 10:45 74 31 45 05/27/18 09:10 60 18 45 05/27/18 08:00 68 05/27/18 08:00 66 28 132/90 (104) 100 05/27/18 08:00 32 05/27/18 08:00 Mechanical Ventilator Mechanical Ventilator 05/27/18 07:35 Endotracheal Tube 45 05/27/18 07:05 60 29 45 05/27/18 07:00 64 28 91/38 (55) 100 05/27/18 06:00 67 28 100/48 (65) 100 05/27/18 05:53 45 05/27/18 05:30 73 28 109/61 (77) 100 05/27/18 05:00 62 24 50 05/27/18 05:00 69 28 121/54 (76) 100 05/27/18 04:30 97.3 60 28 149/62 (91) 100 05/27/18 04:00 32 05/27/18 04:00 Mechanical Ventilator Mechanical Ventilator 05/27/18 04:00 63 05/27/18 04:00 70 28 143/54 (83) 100 05/27/18 03:30 69 28 122/60 (80) 100 05/27/18 03:02 62 27 50 05/27/18 03:00 64 28 113/48 (69) 100 05/27/18 02:00 64 28 116/48 (70) 100 05/27/18 01:30 67 28 94/58 (70) 100 05/27/18 01:00 97.5 66 27 132/56 (81) 100 05/27/18 00:52 61 29 50 05/27/18 00:30 65 29 109/23 (51) 100 05/27/18 00:00 65 23 108/38 (61) 100 05/27/18 00:00 Mechanical Ventilator Mechanical Ventilator 05/27/18 00:00 32 05/27/18 00:00 68 05/26/18 23:30 72 23 93/37 (55) 100 05/26/18 23:04 71 24 50 05/26/18 23:02 72 23 113/51 (71) 100 05/26/18 22:30 71 28 116/48 (70) 100 05/26/18 22:00 76 27 169/64 (99) 100 05/26/18 21:30 64 26 76/41 (53) 100 05/26/18 21:00 63 23 94/59 (71) 100 05/26/18 21:00 70 32 30 05/26/18 20:30 67 29 97/18 (44) 100 05/26/18 20:00 69 23 108/25 (52) 100 05/26/18 20:00 70 05/26/18 20:00 32 05/26/18 20:00 Mechanical Ventilator Mechanical Ventilator 05/26/18 19:30 70 28 118/33 (61) 100 05/26/18 19:15 96.7 72 23 112/32 (58) 100 05/26/18 19:00 69 23 108/25 (52) 100 05/26/18 19:00 68 29 30 05/26/18 18:30 69 23 114/22 (52) 100 05/26/18 18:15 72 23 84/60 (68) 100 05/26/18 18:00 72 23 145/113 (124) 100 05/26/18 17:45 96.7 69 23 127/26 (59) 100 05/26/18 17:30 69 23 133/26 (61) 100 05/26/18 17:15 68 23 122/27 (58) 100 05/26/18 17:10 70 23 35 05/26/18 17:00 68 23 119/29 (59) 100 05/26/18 16:30 69 23 135/55 (81) 100 05/26/18 16:15 68 23 115/32 (59) 100 05/26/18 16:00 40 05/26/18 16:00 Mechanical Ventilator Mechanical Ventilator 05/26/18 16:00 68 23 121/20 (53) 100 05/26/18 16:00 72 05/26/18 15:45 72 23 123/27 (59) 100 05/26/18 15:38 71 23 35 05/26/18 15:30 71 23 119/28 (58) 100 05/26/18 15:15 74 23 128/51 (76) 100 05/26/18 15:00 68 23 127/61 (83) 100 05/26/18 14:45 67 23 141/66 (91) 100 05/26/18 14:30 121/38 05/26/18 14:30 66 23 122/34 (63) 100 05/26/18 14:15 66 23 118/32 (60) 100 05/26/18 14:00 67 23 134/36 (68) 100 05/26/18 13:45 64 23 110/29 (56) 100 05/26/18 13:30 65 23 131/87 (102) 100 05/26/18 13:15 65 23 123/34 (63) 100 05/26/18 13:00 64 23 120/44 (69) 100 05/26/18 12:45 64 23 117/30 (59) 100 05/26/18 12:30 66 23 122/33 (62) 100 Status: other - intubated sedated but responsive Condition: critical HEENT: atraumatic, normocephalic, other - ETT OGT Lungs: rhonchi Heart: HR/BP unstable Abdomen: other - wound vac TTP hypoactive BS VELVET Extremities: other - 2+ edema Decubiti: location - sacral Accucheck: 186 Critical Care - Subjective ROS Limited/Unobtainable: Yes ICU Day: 13 Intubation Day: 10 Interval Events: S/P HD Now on 2mcg NE WCt inc to 13 Plt decreased No distress On TPN No sig secretions Condition: improving IV Access: central EKG Rhythm: Sinus Rhythm FI02: 45 Vent Support Breath Rate: 16 Vent Support Mode: AC Vent Tidal Volume: 500 Sputum Amount: Small PEEP: 5.0 PIP: 23 Fluids: SLIV Drips: NE 2 amio gtt Tube Feeding Amount: 0 I&O: Intake and Output 05/26/18 05/27/18 19:00 07:00 Intake Total 1161.247 ml 500.288 ml Output Total 917 ml 810 ml Balance 244.247 ml -309.712 ml IV Total 1161.247 ml 500.288 ml Output Urine Total 45 ml 10 ml Gastric Drainage Total 400 ml 500 ml Drainage Total 472 ml 300 ml # Bowel Movements 2 2 Subjective: CROW ET-Tube: 8.5 ET Position: 24 Labs: Laboratory Tests Test 05/27/18 04:20 White Blood Count 13.4 K/UL (4.8-10.8) H Red Blood Count 3.06 M/UL (4.70-6.10) L Hemoglobin 9.2 G/DL (14.2-18.0) L Hematocrit 26.3 % (42.0-52.0) L Mean Corpuscular Volume 86 FL (80-99) Mean Corpuscular Hemoglobin 30.2 PG (27.0-31.0) Mean Corpuscular Hemoglobin Concent 35.1 G/DL (32.0-36.0) Red Cell Distribution Width 15.3 % (11.6-14.8) H Platelet Count 89 K/UL (150-450) L Mean Platelet Volume 10.0 FL (6.5-10.1) Neutrophils (%) (Auto) % (45.0-75.0) Lymphocytes (%) (Auto) % (20.0-45.0) Monocytes (%) (Auto) % (1.0-10.0) Eosinophils (%) (Auto) % (0.0-3.0) Basophils (%) (Auto) % (0.0-2.0) Differential Total Cells Counted 100 Neutrophils % (Manual) 82 % (45-75) H Lymphocytes % (Manual) 3 % (20-45) L Monocytes % (Manual) 2 % (1-10) Eosinophils % (Manual) 0 % (0-3) Basophils % (Manual) 0 % (0-2) Band Neutrophils 13 % (0-8) H Platelet Estimate Decreased L Platelet Morphology Normal Polychromasia 1+ Hypochromasia 1+ Anisocytosis 2+ Prothrombin Time 13.2 SEC (9.30-11.50) H Prothromb Time International Ratio 1.3 (0.9-1.1) H Activated Partial Thromboplast Time 45 SEC (23-33) H Fibrinogen 541 mg/dL (200-400) H Sodium Level 123 MMOL/L (136-145) L Potassium Level 2.2 MMOL/L (3.5-5.1) *L Chloride Level 85 MMOL/L (98-107) L Carbon Dioxide Level 18 MMOL/L (21-32) L Anion Gap 20 mmol/L (5-15) H Blood Urea Nitrogen 104 mg/dL (7-18) H Creatinine 5.9 MG/DL (0.55-1.30) H Estimat Glomerular Filtration Rate mL/min (>60) Glucose Level 236 MG/DL (74-106) H Uric Acid 7.6 MG/DL (2.6-7.2) H Calcium Level 6.9 MG/DL (8.5-10.1) L Phosphorus Level 6.4 MG/DL (2.5-4.9) H Magnesium Level 1.6 MG/DL (1.8-2.4) L Total Bilirubin 0.5 MG/DL (0.2-1.0) Gamma Glutamyl Transpeptidase 41 U/L (5-85) Aspartate Amino Transf (AST/SGOT) 22 U/L (15-37) Alanine Aminotransferase (ALT/SGPT) 13 U/L (12-78) Alkaline Phosphatase 131 U/L (46-116) H C-Reactive Protein, Quantitative 10.1 mg/dL (0.00-0.90) H Pro-B-Type Natriuretic Peptide 76798 pg/mL (0-125) H Total Protein 3.9 G/DL (6.4-8.2) L Albumin 0.8 G/DL (3.4-5.0) L Globulin 3.1 g/dL Albumin/Globulin Ratio 0.3 (1.0-2.7) L Triglycerides Level 202 MG/DL (30-150) H Cholesterol Level 54 MG/DL (< 200) LDL Cholesterol 29 mg/dL (<100) HDL Cholesterol 9 MG/DL (40-60) L Cholesterol/HDL Ratio 6.0 (3.3-4.4) H Daryl Jones MD May 27, 2018 12:30
--- NOTE | 2018-05-27 13:04 | Infectious Diseases Prog Note ---
Assessment/Plan Assessment/Plan A: 1. serratia , Enterobacter sepsis with shock 2. VRE colonization 3. diabetes mellitus 4. hypertension 5. 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 leucocytosis 6. A fib with RVR 7. Small bowel perforation 8. Perioperative respiratory failure 9. Atelectasis versus Pneumonia 10 Peritonitis with Citrobacter & Serratia 11. sepsis, septic shock 12. Lactic acidosis 13. Anemia 14. Anastomosis leak 15. Hypokalemia P 1. continue Cefepime and Micafungin, Flagyl & Levaquin 2.Continue TPN Subjective ROS Limited/Unobtainable: Yes Cardiovascular: Reports: other - hypotensive back in low dose Levophes Gastrointestinal/Abdominal: Reports: diarrhea, other - mucous stool Allergies: Coded Allergies: No Known Allergies (Unverified , 11/12/12) Objective Vital Signs Last 24 Hour Vital Signs Date Time Temp Pulse Resp B/P (MAP) Pulse Ox O2 Delivery O2 Flow Rate FiO2 05/27/18 12:00 32 05/27/18 10:45 74 31 45 05/27/18 09:10 60 18 45 05/27/18 08:00 68 05/27/18 08:00 66 28 132/90 (104) 100 05/27/18 08:00 32 05/27/18 08:00 Mechanical Ventilator Mechanical Ventilator 05/27/18 07:35 Endotracheal Tube 45 05/27/18 07:05 60 29 45 05/27/18 07:00 64 28 91/38 (55) 100 05/27/18 06:00 67 28 100/48 (65) 100 05/27/18 05:53 45 05/27/18 05:30 73 28 109/61 (77) 100 05/27/18 05:00 62 24 50 05/27/18 05:00 69 28 121/54 (76) 100 05/27/18 04:30 97.3 60 28 149/62 (91) 100 05/27/18 04:00 32 05/27/18 04:00 Mechanical Ventilator Mechanical Ventilator 05/27/18 04:00 63 05/27/18 04:00 70 28 143/54 (83) 100 05/27/18 03:30 69 28 122/60 (80) 100 05/27/18 03:02 62 27 50 05/27/18 03:00 64 28 113/48 (69) 100 05/27/18 02:00 64 28 116/48 (70) 100 05/27/18 01:30 67 28 94/58 (70) 100 05/27/18 01:00 97.5 66 27 132/56 (81) 100 05/27/18 00:52 61 29 50 05/27/18 00:30 65 29 109/23 (51) 100 05/27/18 00:00 65 23 108/38 (61) 100 05/27/18 00:00 Mechanical Ventilator Mechanical Ventilator 05/27/18 00:00 32 05/27/18 00:00 68 05/26/18 23:30 72 23 93/37 (55) 100 05/26/18 23:04 71 24 50 05/26/18 23:02 72 23 113/51 (71) 100 05/26/18 22:30 71 28 116/48 (70) 100 05/26/18 22:00 76 27 169/64 (99) 100 05/26/18 21:30 64 26 76/41 (53) 100 05/26/18 21:00 63 23 94/59 (71) 100 05/26/18 21:00 70 32 30 05/26/18 20:30 67 29 97/18 (44) 100 05/26/18 20:00 69 23 108/25 (52) 100 05/26/18 20:00 70 05/26/18 20:00 32 05/26/18 20:00 Mechanical Ventilator Mechanical Ventilator 05/26/18 19:30 70 28 118/33 (61) 100 05/26/18 19:15 96.7 72 23 112/32 (58) 100 05/26/18 19:00 69 23 108/25 (52) 100 05/26/18 19:00 68 29 30 05/26/18 18:30 69 23 114/22 (52) 100 05/26/18 18:15 72 23 84/60 (68) 100 05/26/18 18:00 72 23 145/113 (124) 100 05/26/18 17:45 96.7 69 23 127/26 (59) 100 05/26/18 17:30 69 23 133/26 (61) 100 05/26/18 17:15 68 23 122/27 (58) 100 05/26/18 17:10 70 23 35 05/26/18 17:00 68 23 119/29 (59) 100 05/26/18 16:30 69 23 135/55 (81) 100 05/26/18 16:15 68 23 115/32 (59) 100 05/26/18 16:00 40 05/26/18 16:00 Mechanical Ventilator Mechanical Ventilator 05/26/18 16:00 68 23 121/20 (53) 100 05/26/18 16:00 72 05/26/18 15:45 72 23 123/27 (59) 100 05/26/18 15:38 71 23 35 05/26/18 15:30 71 23 119/28 (58) 100 05/26/18 15:15 74 23 128/51 (76) 100 05/26/18 15:00 68 23 127/61 (83) 100 05/26/18 14:45 67 23 141/66 (91) 100 05/26/18 14:30 121/38 05/26/18 14:30 66 23 122/34 (63) 100 05/26/18 14:15 66 23 118/32 (60) 100 05/26/18 14:00 67 23 134/36 (68) 100 05/26/18 13:45 64 23 110/29 (56) 100 05/26/18 13:30 65 23 131/87 (102) 100 05/26/18 13:15 65 23 123/34 (63) 100 Height (Feet): 5 Height (Inches): 5.00 Weight (Pounds): 185 HEENT: other - orally intibated Respiratory/Chest: lungs clear, respiratory distress, other - on ventilator Cardiovascular: normal rate, other - R femoral HD line, left suclavian line Abdomen: other - Orogastric tube, wound vac & LLQ drain Extremities: other - edema of hands Neurologic/Psychiatric: unresponsiveness Laboratory Tests Test 05/27/18 04:20 White Blood Count 13.4 K/UL (4.8-10.8) H Red Blood Count 3.06 M/UL (4.70-6.10) L Hemoglobin 9.2 G/DL (14.2-18.0) L Hematocrit 26.3 % (42.0-52.0) L Mean Corpuscular Volume 86 FL (80-99) Mean Corpuscular Hemoglobin 30.2 PG (27.0-31.0) Mean Corpuscular Hemoglobin Concent 35.1 G/DL (32.0-36.0) Red Cell Distribution Width 15.3 % (11.6-14.8) H Platelet Count 89 K/UL (150-450) L Mean Platelet Volume 10.0 FL (6.5-10.1) Neutrophils (%) (Auto) % (45.0-75.0) Lymphocytes (%) (Auto) % (20.0-45.0) Monocytes (%) (Auto) % (1.0-10.0) Eosinophils (%) (Auto) % (0.0-3.0) Basophils (%) (Auto) % (0.0-2.0) Differential Total Cells Counted 100 Neutrophils % (Manual) 82 % (45-75) H Lymphocytes % (Manual) 3 % (20-45) L Monocytes % (Manual) 2 % (1-10) Eosinophils % (Manual) 0 % (0-3) Basophils % (Manual) 0 % (0-2) Band Neutrophils 13 % (0-8) H Platelet Estimate Decreased L Platelet Morphology Normal Polychromasia 1+ Hypochromasia 1+ Anisocytosis 2+ Prothrombin Time 13.2 SEC (9.30-11.50) H Prothromb Time International Ratio 1.3 (0.9-1.1) H Activated Partial Thromboplast Time 45 SEC (23-33) H Fibrinogen 541 mg/dL (200-400) H Sodium Level 123 MMOL/L (136-145) L Potassium Level 2.2 MMOL/L (3.5-5.1) *L Chloride Level 85 MMOL/L (98-107) L Carbon Dioxide Level 18 MMOL/L (21-32) L Anion Gap 20 mmol/L (5-15) H Blood Urea Nitrogen 104 mg/dL (7-18) H Creatinine 5.9 MG/DL (0.55-1.30) H Estimat Glomerular Filtration Rate mL/min (>60) Glucose Level 236 MG/DL (74-106) H Uric Acid 7.6 MG/DL (2.6-7.2) H Calcium Level 6.9 MG/DL (8.5-10.1) L Phosphorus Level 6.4 MG/DL (2.5-4.9) H Magnesium Level 1.6 MG/DL (1.8-2.4) L Total Bilirubin 0.5 MG/DL (0.2-1.0) Gamma Glutamyl Transpeptidase 41 U/L (5-85) Aspartate Amino Transf (AST/SGOT) 22 U/L (15-37) Alanine Aminotransferase (ALT/SGPT) 13 U/L (12-78) Alkaline Phosphatase 131 U/L (46-116) H C-Reactive Protein, Quantitative 10.1 mg/dL (0.00-0.90) H Pro-B-Type Natriuretic Peptide 12450 pg/mL (0-125) H Total Protein 3.9 G/DL (6.4-8.2) L Albumin 0.8 G/DL (3.4-5.0) L Globulin 3.1 g/dL Albumin/Globulin Ratio 0.3 (1.0-2.7) L Triglycerides Level 202 MG/DL (30-150) H Cholesterol Level 54 MG/DL (< 200) LDL Cholesterol 29 mg/dL (<100) HDL Cholesterol 9 MG/DL (40-60) L Cholesterol/HDL Ratio 6.0 (3.3-4.4) H Current Medications Medications (Trade) Dose Ordered Sig/Min Route PRN Reason Start Time Stop Time Status Last Admin Dose Admin Acetaminophen (Tylenol) 650 mg Q4H PRN RECTAL Mild Pain/Temp > 100.5 05/21/18 12:00 06/20/18 11:59 Amiodarone HCl 900 mg/Dextrose 500 ml @ 0 mls/hr Q24H IV 05/26/18 18:30 05/27/18 18:29 05/26/18 18:55 Cefepime HCl 2 gm/ Dextrose 55 ml @ 110 mls/hr Q24H IVPB 05/25/18 13:00 06/01/18 12:59 05/26/18 13:00 Chlorhexidine Gluconate (Tatyana-Hex 2%) 1 applic DAILY@2000 TOPIC 05/12/18 20:00 06/11/18 19:59 05/26/18 20:37 Dextrose 1,000 ml @ 0 mls/hr Q24H PRN IV PN interrupted or unavailable 05/25/18 21:00 06/24/18 20:59 Dextrose (Dextrose 50%) 25 ml Q30M PRN IV Hypoglycemia 05/26/18 12:45 06/25/18 12:44 Dextrose (Dextrose 50%) 50 ml Q30M PRN IV Hypoglycemia 05/26/18 12:45 06/25/18 12:44 Fat Emulsion Intravenous 250 ml/Amino Acids/ Electrolytes/ Dextrose 2,050 ml @ 85.417 mls/ hr Q24H IV 05/26/18 21:00 06/25/18 20:59 05/26/18 20:35 Hydrocortisone (Solu-CORTEF) 50 mg EVERY 8 HOURS IV 05/26/18 14:00 06/20/18 21:59 05/27/18 06:20 Hydromorphone HCl (Dilaudid) 1 mg Q2H PRN IVP Severe Pain (Pain Scale 7-10) 05/24/18 09:45 05/29/18 09:44 05/26/18 02:56 Insulin Aspart (NovoLOG) EVERY 4 HOURS SUBQ 05/24/18 17:00 06/15/18 20:59 05/27/18 10:09 Insulin Aspart (NovoLOG) 10 units EVERY 4 HOURS SUBQ 05/27/18 09:00 06/25/18 12:59 05/27/18 10:07 Insulin Detemir (Levemir) 20 units Q12HR SUBQ 05/27/18 09:00 06/23/18 17:59 05/27/18 10:07 Levofloxacin 50 ml @ 50 mls/hr Q24H IVPB 05/25/18 13:00 06/01/18 12:59 05/26/18 14:10 Magnesium Sulfate 100 ml @ 100 mls/hr Q1H IVPB 05/27/18 12:00 05/27/18 13:59 Metronidazole 100 ml @ 100 mls/hr Q8HR IVPB 05/25/18 14:00 06/01/18 13:59 05/27/18 06:20 Micafungin Sodium 100 mg/Sodium Chloride 110 ml @ 110 mls/hr Q24H IVPB 05/21/18 12:00 05/28/18 11:59 05/26/18 12:00 Norepinephrine Bitartrate 8 mg/ Dextrose 500 ml @ 0 mls/hr Q24H IV 05/21/18 14:30 06/20/18 14:29 05/25/18 09:38 Ondansetron HCl (Zofran) 4 mg Q6H PRN IVP Nausea & Vomiting 05/15/18 23:30 06/14/18 23:29 Pantoprazole (Protonix) 40 mg EVERY 12 HOURS IVP 05/12/18 21:00 06/10/18 20:59 05/27/18 09:00 Phytonadione (Vitamin K) 10 mg ONCE A WEEK SUBQ 05/25/18 21:00 06/24/18 20:59 05/25/18 20:30 Phytonadione 10 mg/Dextrose 56 ml @ 112 mls/hr ONCE IVPB 05/27/18 12:00 05/27/18 13:00 Vasopressin 100 units/Sodium Chloride 100 ml @ 0 mls/hr Q24H IV 05/22/18 11:30 06/21/18 11:29 05/23/18 17:47 Romie Hooks MD May 27, 2018 13:03
[2018-05-27] MEDS ORDERED: Bupivacaine w/Epi 0.25% 30ml Vial INJ ONE (13:08)
[2018-05-27] MEDS ORDERED: NeoSporin Gu Irrig 1ml Amp IRRIG ONE (13:08)
[2018-05-27] MEDS ORDERED: Bacitracin 50000 Units Vial ONE (13:08)
--- NOTE | 2018-05-27 13:17 | NUR ---
CASE MANAGEMENT: REVIEW SI: ESRD ON HD . ACS . A-FIB RIGHT FEMORAL TEMPORARY HEMODIALYSIS CATHETER INSERTION 05/13 T 97.3 HR 64 RR 28 BP 91/38 SAT 100% MECH VENT FIO2 50 WBC 13.4 H/H 9.2/26.3 NA 123 K 2.2 BUN 104 CR 5.9 IS: MAG SULFATE IV @100ML/HR NOVOLOG SQ Q4HR LEVEMIR SQ Q12HR TPN IV Q24HR AMIODARONE IV Q24HR SOLU CORTEF IV Q8HR CEFEPIME IV Q24HR LEVOFLOXACIN IV Q24HR LEVOPHED IV Q24HR ICU STATUS DCP: PATIENT IS FROM HOME
[2018-05-27] MEDS ORDERED: Nimbex 2mg/ml Inj 10ML IVP ONE (13:26)
[2018-05-27] MEDS ORDERED: Etomidate 40mg/20ml Inj IV ONE (13:26)
--- NOTE | 2018-05-27 13:59 | Pre-Procedure Note/Attestation ---
Pre-Procedure Note/Attestation Complete Prior to Procedure Planned Procedure: not applicable Procedure Narrative: planned re-exploration, abdominal washout, abdominal closure, bowel anastomosis vs ostomy creation Indications for Procedure Pre-Operative Diagnosis: recent lap matthew, abdominal pain, sepsis, pneumoperitoneum, biliary leak vs bowel leak Attestation I attest that I discussed the nature of the procedure; its benefits; risks and complications; and alternatives (and the risks and benefits of such alternatives ), prior to the procedure, with the patient (or the patient's legal commissary representative). I attest that, if there was a reasonable possibility of needing a blood transfusion, the patient (or the patient's legal commissary representative) was given the [place] [employer] [facility] standardized written summary, pursuant to the [place] Blood Safety Act ([place] Health and Safety Code # 1645, as amended). I attest that I re-evaluated the patient just prior to the surgery and that there has been no change in the patient's H&P, except as documented below: Tomas Chandler May 27, 2018 13:59
--- NOTE | 2018-05-27 14:07 | General Progress Note ---
Progress Note Progress Note Surgery: Off pressors since yesterday. resumed today with HD this morning. labs noted. electrolyte correction in process, given plt. open abdomen for >72 hrs now. bowel in discontinuity. must go to OR today given last eval of abdomen to wash out. possible closure, possible ostomy, possible anastomosis. patient without poa or next of kin. full code. very unfortunate case where he was perforated at outside facility and had delayed presentation. he has had abdominal sepsis for some time now that we have been treating with best possible efforts. all efforts to preserve his life. will proceed to OR today as part of management. prognosis guarded Tomas Chandler May 27, 2018 14:07
[2018-05-27] MEDS ORDERED: Midazolam 2mg/2ml Inj ONE (14:09)
[2018-05-27] MEDS ORDERED: ePHEDrine 50mg/ml Inj ONE (14:20)
[2018-05-27] MEDS ORDERED: Ketamine 500mg Inj ONE (14:21)
[2018-05-27] MEDS: Norepinephrine Bitartrate 8 MG in D5W 500ml 492 ML IV SCH (14:30)
--- NOTE | 2018-05-27 14:35 | NUR ---
RESPIRATORY NOTE: Transferred pt to OR for procedure, pt is stable, no resp distress noted. RN at bedside, RR 22bpm,. HR 66bpm, saturated at 100% on 15L bagging.
--- NOTE | 2018-05-27 15:24 | NUR ---
NURSE NOTES:Patient is down at surgery. Patient vital signs where stable when patient was dropped off no levophed running
--- NOTE | 2018-05-27 16:02 | Cardiac Electrophysiology PN ---
Assessment/Plan Assessment/Plan 1. Atrial fib/flutter with RVR In SR on Amio drip. Can't switch to po as NPO and unpredictable absorption in view of intestinal surgeries. Last Dig level 1.9 on 05/21/18 but off Dig. If develops atrial fib with RVR would digitalize again. 2. Chest pain. No ID. EKG showed old inferior and anterior wall ID, but no ischemia. ECHO normal LV function 3. End-stage renal disease, on hemodialysis per Dr. Arroyo. 4. Septic shock, back on Levophed today. 2D Echo EF 60% and PA pressure 63 ? PE. DD 35.2. Unstable for chest CT angio. Off heparin drip for surgery 5. History of kidney stones. 6. History of psychiatric problems, dementia. 7. Hx of lap matthew. S/P SB resection 05/15/18 with drain Has yellowish discharge from incision. On iv Abx per ID S/P redo surgery 05/23/18 that showed Anastomotic leak. Going back to OR by DR Chandler for wound closure 8. Respiratory failure, intubated on the vent. SAW RN Subjective Subjective In ICU on Amiodarone drip 0.5 mg and Levophed resumed right before going to surgery Off Heparin drip until OK with surgery. On the Vent. Objective Last 24 Hour Vital Signs Date Time Temp Pulse Resp B/P (MAP) Pulse Ox O2 Delivery O2 Flow Rate FiO2 05/27/18 14:00 87 28 140/63 (88) 100 05/27/18 13:30 86 28 130/58 (82) 100 05/27/18 13:10 85 34 45 05/27/18 13:00 98.8 86 28 130/58 (82) 100 05/27/18 13:00 130/58 05/27/18 12:30 111/75 05/27/18 12:30 79 28 111/75 (87) 100 05/27/18 12:00 Mechanical Ventilator Mechanical Ventilator 05/27/18 12:00 115/61 05/27/18 12:00 32 05/27/18 12:00 78 28 93/47 (62) 100 05/27/18 12:00 73 28 93/47 (62) 100 05/27/18 11:30 78 28 115/61 (79) 100 05/27/18 11:00 78 28 124/57 (79) 100 05/27/18 11:00 124/57 05/27/18 10:45 74 31 45 05/27/18 10:30 81 28 124/71 (88) 100 05/27/18 10:00 137/77 05/27/18 10:00 83 28 132/77 (95) 100 05/27/18 09:30 91 28 132/100 (111) 100 05/27/18 09:10 60 18 45 05/27/18 09:00 91/34 05/27/18 09:00 97.2 95 28 133/70 (91) 100 05/27/18 08:00 68 05/27/18 08:00 66 28 132/90 (104) 100 05/27/18 08:00 32 05/27/18 08:00 Mechanical Ventilator Mechanical Ventilator 05/27/18 07:35 Endotracheal Tube 45 05/27/18 07:05 60 29 45 05/27/18 07:00 64 28 91/38 (55) 100 05/27/18 07:00 88/34 05/27/18 06:00 67 28 100/48 (65) 100 05/27/18 05:53 45 05/27/18 05:30 73 28 109/61 (77) 100 05/27/18 05:00 62 24 50 05/27/18 05:00 69 28 121/54 (76) 100 05/27/18 04:30 97.3 60 28 149/62 (91) 100 05/27/18 04:00 32 05/27/18 04:00 Mechanical Ventilator Mechanical Ventilator 05/27/18 04:00 63 05/27/18 04:00 70 28 143/54 (83) 100 05/27/18 03:30 69 28 122/60 (80) 100 05/27/18 03:02 62 27 50 05/27/18 03:00 64 28 113/48 (69) 100 05/27/18 02:00 64 28 116/48 (70) 100 05/27/18 01:30 67 28 94/58 (70) 100 05/27/18 01:00 97.5 66 27 132/56 (81) 100 05/27/18 00:52 61 29 50 05/27/18 00:30 65 29 109/23 (51) 100 05/27/18 00:00 65 23 108/38 (61) 100 05/27/18 00:00 Mechanical Ventilator Mechanical Ventilator 05/27/18 00:00 32 05/27/18 00:00 68 05/26/18 23:30 72 23 93/37 (55) 100 05/26/18 23:04 71 24 50 05/26/18 23:02 72 23 113/51 (71) 100 05/26/18 22:30 71 28 116/48 (70) 100 05/26/18 22:00 76 27 169/64 (99) 100 05/26/18 21:30 64 26 76/41 (53) 100 05/26/18 21:00 63 23 94/59 (71) 100 05/26/18 21:00 70 32 30 05/26/18 20:30 67 29 97/18 (44) 100 05/26/18 20:00 69 23 108/25 (52) 100 05/26/18 20:00 70 05/26/18 20:00 32 05/26/18 20:00 Mechanical Ventilator Mechanical Ventilator 05/26/18 19:30 70 28 118/33 (61) 100 05/26/18 19:15 96.7 72 23 112/32 (58) 100 05/26/18 19:00 69 23 108/25 (52) 100 05/26/18 19:00 68 29 30 05/26/18 18:30 69 23 114/22 (52) 100 05/26/18 18:15 72 23 84/60 (68) 100 05/26/18 18:00 72 23 145/113 (124) 100 05/26/18 17:45 96.7 69 23 127/26 (59) 100 05/26/18 17:30 69 23 133/26 (61) 100 05/26/18 17:15 68 23 122/27 (58) 100 05/26/18 17:10 70 23 35 05/26/18 17:00 68 23 119/29 (59) 100 05/26/18 16:30 69 23 135/55 (81) 100 05/26/18 16:15 68 23 115/32 (59) 100 05/26/18 16:00 40 05/26/18 16:00 Mechanical Ventilator Mechanical Ventilator 05/26/18 16:00 68 23 121/20 (53) 100 05/26/18 16:00 72 Intake and Output 05/26/18 05/27/18 19:00 07:00 Intake Total 1161.247 ml 534.038 ml Output Total 917 ml 810 ml Balance 244.247 ml -275.962 ml IV Total 1161.247 ml 534.038 ml Output Urine Total 45 ml 10 ml Gastric Drainage Total 400 ml 500 ml Drainage Total 472 ml 300 ml # Bowel Movements 2 2 Laboratory Tests Test 05/27/18 04:20 White Blood Count 13.4 K/UL (4.8-10.8) H Red Blood Count 3.06 M/UL (4.70-6.10) L Hemoglobin 9.2 G/DL (14.2-18.0) L Hematocrit 26.3 % (42.0-52.0) L Mean Corpuscular Volume 86 FL (80-99) Mean Corpuscular Hemoglobin 30.2 PG (27.0-31.0) Mean Corpuscular Hemoglobin Concent 35.1 G/DL (32.0-36.0) Red Cell Distribution Width 15.3 % (11.6-14.8) H Platelet Count 89 K/UL (150-450) L Mean Platelet Volume 10.0 FL (6.5-10.1) Neutrophils (%) (Auto) % (45.0-75.0) Lymphocytes (%) (Auto) % (20.0-45.0) Monocytes (%) (Auto) % (1.0-10.0) Eosinophils (%) (Auto) % (0.0-3.0) Basophils (%) (Auto) % (0.0-2.0) Differential Total Cells Counted 100 Neutrophils % (Manual) 82 % (45-75) H Lymphocytes % (Manual) 3 % (20-45) L Monocytes % (Manual) 2 % (1-10) Eosinophils % (Manual) 0 % (0-3) Basophils % (Manual) 0 % (0-2) Band Neutrophils 13 % (0-8) H Platelet Estimate Decreased L Platelet Morphology Normal Polychromasia 1+ Hypochromasia 1+ Anisocytosis 2+ Prothrombin Time 13.2 SEC (9.30-11.50) H Prothromb Time International Ratio 1.3 (0.9-1.1) H Activated Partial Thromboplast Time 45 SEC (23-33) H Fibrinogen 541 mg/dL (200-400) H Sodium Level 123 MMOL/L (136-145) L Potassium Level 2.2 MMOL/L (3.5-5.1) *L Chloride Level 85 MMOL/L (98-107) L Carbon Dioxide Level 18 MMOL/L (21-32) L Anion Gap 20 mmol/L (5-15) H Blood Urea Nitrogen 104 mg/dL (7-18) H Creatinine 5.9 MG/DL (0.55-1.30) H Estimat Glomerular Filtration Rate mL/min (>60) Glucose Level 236 MG/DL (74-106) H Uric Acid 7.6 MG/DL (2.6-7.2) H Calcium Level 6.9 MG/DL (8.5-10.1) L Phosphorus Level 6.4 MG/DL (2.5-4.9) H Magnesium Level 1.6 MG/DL (1.8-2.4) L Total Bilirubin 0.5 MG/DL (0.2-1.0) Gamma Glutamyl Transpeptidase 41 U/L (5-85) Aspartate Amino Transf (AST/SGOT) 22 U/L (15-37) Alanine Aminotransferase (ALT/SGPT) 13 U/L (12-78) Alkaline Phosphatase 131 U/L (46-116) H C-Reactive Protein, Quantitative 10.1 mg/dL (0.00-0.90) H Pro-B-Type Natriuretic Peptide 37890 pg/mL (0-125) H Total Protein 3.9 G/DL (6.4-8.2) L Albumin 0.8 G/DL (3.4-5.0) L Globulin 3.1 g/dL Albumin/Globulin Ratio 0.3 (1.0-2.7) L Triglycerides Level 202 MG/DL (30-150) H Cholesterol Level 54 MG/DL (< 200) LDL Cholesterol 29 mg/dL (<100) HDL Cholesterol 9 MG/DL (40-60) L Cholesterol/HDL Ratio 6.0 (3.3-4.4) H Objective HEENT: Orally intubated Cardiovascular: Sinus tachycardia Respiratory/Chest: Lungs clear, normal breath sounds Abdomen: Post op.with one VELVET drain and incision covered with WoundVac Extremities: No edema. Right groin dialysis catheter Everett Stephenson MD May 27, 2018 16:02
[2018-05-27] MEDS: Cefepime HCl 2 GM in D5W 55 ML IVPB SCH (17:00)
[2018-05-27] MEDS: Micafungin 100 MG in NS 110 ML IVPB SCH (17:00)
--- NOTE | 2018-05-27 17:05 | Anethesia Preoperative Eval ---
Anesthesia Pre-op PMH/ROS General Date of Evaluation: May 27, 2018 Time of Evaluation: 14:20 Anesthesiologist: Sean ASA Score: ASA 4 Mallampati Score Class I : Soft palate, uvula, fauces, pillars visible Class II: Soft palate, uvula, fauces visible Class III: Soft palate, base of uvula visible Class IV: Only hard plate visible Mallampati Classification: Class II Surgeon: Geraldine Diagnosis: Open abdominal wound Surgical Procedure: Laparotomy, possible anastamosis of colon, possible colostomy Family History: no anesthesia problems Allergies: Coded Allergies: No Known Allergies (Unverified , 11/12/12) Medications: see eMAR Patient NPO?: Yes NPO Date: May 26, 2018 NPO Time: 0500 Past Medical History Cardiovascular: Reports: HTN, arrhythmia - Afib Pulmonary: Reports: other - respiratory failure Gastrointestinal/Genitourinary: Reports: GERD, ESRD Neurologic/Psychiatric: Reports: depression/anxiety Endocrine: Reports: steroids Hematology/Immune: Reports: anemia, other - Thrombocytopenia PMH Narrative: HTN, CHF, ESRD on HD, A-fib, respiratory failure, hypokalemia, hyponatremia PSxH Narrative: Cholecystectomy, laparotomy Anesthesia Pre-op Phys. Exam Physician Exam Last Vital Signs Date Time Temp Pulse Resp B/P (MAP) Pulse Ox O2 Delivery O2 Flow Rate FiO2 05/27/18 14:00 87 28 140/63 (88) 100 05/27/18 13:10 45 05/27/18 13:00 98.8 05/27/18 12:00 Mechanical Ventilator Mechanical Ventilator 05/20/18 12:15 35.0 Constitutional: other - Patient intubated and unresponsive Neurologic: CN 2-12 intact - Deferred Cardiovascular: other - Assisted ventilation, patient is intubated Airway Exam Mallampati Score: Class II MO: full ROM: full Anesthesia Pre-op A/P Labs Hematology Test 05/27/18 04:20 White Blood Count 13.4 K/UL (4.8-10.8) H Red Blood Count 3.06 M/UL (4.70-6.10) L Hemoglobin 9.2 G/DL (14.2-18.0) L Hematocrit 26.3 % (42.0-52.0) L Mean Corpuscular Volume 86 FL (80-99) Mean Corpuscular Hemoglobin 30.2 PG (27.0-31.0) Mean Corpuscular Hemoglobin Concent 35.1 G/DL (32.0-36.0) Red Cell Distribution Width 15.3 % (11.6-14.8) H Platelet Count 89 K/UL (150-450) L Mean Platelet Volume 10.0 FL (6.5-10.1) Neutrophils (%) (Auto) % (45.0-75.0) Lymphocytes (%) (Auto) % (20.0-45.0) Monocytes (%) (Auto) % (1.0-10.0) Eosinophils (%) (Auto) % (0.0-3.0) Basophils (%) (Auto) % (0.0-2.0) Differential Total Cells Counted 100 Neutrophils % (Manual) 82 % (45-75) H Lymphocytes % (Manual) 3 % (20-45) L Monocytes % (Manual) 2 % (1-10) Eosinophils % (Manual) 0 % (0-3) Basophils % (Manual) 0 % (0-2) Band Neutrophils 13 % (0-8) H Platelet Estimate Decreased L Platelet Morphology Normal Polychromasia 1+ Hypochromasia 1+ Anisocytosis 2+ Coagulation Test 05/27/18 04:20 Prothrombin Time 13.2 SEC (9.30-11.50) H Prothromb Time International Ratio 1.3 (0.9-1.1) H Activated Partial Thromboplast Time 45 SEC (23-33) H Fibrinogen 541 mg/dL (200-400) H Chemistry Test 05/27/18 04:20 Sodium Level 123 MMOL/L (136-145) L Potassium Level 2.2 MMOL/L (3.5-5.1) *L Chloride Level 85 MMOL/L (98-107) L Carbon Dioxide Level 18 MMOL/L (21-32) L Anion Gap 20 mmol/L (5-15) H Blood Urea Nitrogen 104 mg/dL (7-18) H Creatinine 5.9 MG/DL (0.55-1.30) H Estimat Glomerular Filtration Rate mL/min (>60) Glucose Level 236 MG/DL (74-106) H Uric Acid 7.6 MG/DL (2.6-7.2) H Calcium Level 6.9 MG/DL (8.5-10.1) L Phosphorus Level 6.4 MG/DL (2.5-4.9) H Magnesium Level 1.6 MG/DL (1.8-2.4) L Total Bilirubin 0.5 MG/DL (0.2-1.0) Gamma Glutamyl Transpeptidase 41 U/L (5-85) Aspartate Amino Transf (AST/SGOT) 22 U/L (15-37) Alanine Aminotransferase (ALT/SGPT) 13 U/L (12-78) Alkaline Phosphatase 131 U/L (46-116) H C-Reactive Protein, Quantitative 10.1 mg/dL (0.00-0.90) H Pro-B-Type Natriuretic Peptide 69804 pg/mL (0-125) H Total Protein 3.9 G/DL (6.4-8.2) L Albumin 0.8 G/DL (3.4-5.0) L Globulin 3.1 g/dL Albumin/Globulin Ratio 0.3 (1.0-2.7) L Triglycerides Level 202 MG/DL (30-150) H Cholesterol Level 54 MG/DL (< 200) LDL Cholesterol 29 mg/dL (<100) HDL Cholesterol 9 MG/DL (40-60) L Cholesterol/HDL Ratio 6.0 (3.3-4.4) H Studies Pre-op Studies: EKG - SR Risk Assessment & Plan Assessment: Class [address] Chandler who insists that the case must be done today despite the hyponatremia, hypokalemia and thrombocytopenia, Patient has been given 50meq of K+ today and platelets. Plan: GA, pressors as indicated. Status Change Before Surgery: No - Emergency surgery Pre-Antibiotics Drug: Ancef 2 gm Given Within 1 Hr of Incision: Yes Time Given: 14:35 Kj Estrada MD May 27, 2018 17:05
--- NOTE | 2018-05-27 17:46 | Immediate Post-Op Evaluation ---
Immediate Post-Op Evalulation Immediate Post-Op Evalulation Procedure: Revision of abdominal wound woundvac placement Date of Evaluation: May 27, 2018 Time of Evaluation: 17:50 IV Fluids: 800 Estimated Blood Loss: 50 Blood Pressure Systolic: 111 Blood Pressure Diastolic: 47 Pulse Rate: 67 Respiratory Rate: 15 O2 Sat by Pulse Oximetry: 100 Pain Score (1-10): 0 Nausea: No Vomiting: No Complications Brief hypotension intraoperatively for approximately 5 minutes with BP=65/40. Patient responded to increase in Levophed and stopping anesthetic volatile anesthetic gases. Patient Status: no response, ventilated, none Hydration Status: adequate Drug: Ancef 2gm Given Within 1 Hr of Incision: Yes Time Given: 14:35 Kj Estrada MD May 27, 2018 17:46
--- NOTE | 2018-05-27 18:05 | General Progress Note ---
Assessment/Plan Assessment/Plan (1) Abdominal pain (2) S/p Lap Cholecystectomy (3) Encephalopathy /septic shock (4) ESRD on hemodialysis (5) S/p emergent exploratory laboratory small bowel resection omentectomy due to small bowel perforation in distal ileum Patient to be continued on Dilaudid and Tylenol. Parameters to be continued. D/w Dr. Busby and he concurred. Subjective Date patient seen: May 27, 2018 Time patient seen: 06:05 - pm Allergies: Coded Allergies: No Known Allergies (Unverified , 11/12/12) Subjective Patient is in bed and intubated on vent. S/p surgery for abdominal close up.No signs of pain or distress at this time. D/w surgeon. Objective Last 24 Hour Vital Signs Date Time Temp Pulse Resp B/P (MAP) Pulse Ox O2 Delivery O2 Flow Rate FiO2 05/27/18 17:46 67 15 100 05/27/18 17:30 71 25 45 05/27/18 14:00 87 28 140/63 (88) 100 05/27/18 13:30 86 28 130/58 (82) 100 05/27/18 13:10 85 34 45 05/27/18 13:00 98.8 86 28 130/58 (82) 100 05/27/18 13:00 130/58 05/27/18 12:30 111/75 05/27/18 12:30 79 28 111/75 (87) 100 05/27/18 12:00 Mechanical Ventilator Mechanical Ventilator 05/27/18 12:00 115/61 05/27/18 12:00 32 05/27/18 12:00 78 28 93/47 (62) 100 05/27/18 12:00 73 28 93/47 (62) 100 05/27/18 11:30 78 28 115/61 (79) 100 05/27/18 11:00 78 28 124/57 (79) 100 05/27/18 11:00 124/57 05/27/18 10:45 74 31 45 05/27/18 10:30 81 28 124/71 (88) 100 05/27/18 10:00 137/77 05/27/18 10:00 83 28 132/77 (95) 100 05/27/18 09:30 91 28 132/100 (111) 100 05/27/18 09:10 60 18 45 05/27/18 09:00 91/34 05/27/18 09:00 97.2 95 28 133/70 (91) 100 05/27/18 08:00 68 05/27/18 08:00 66 28 132/90 (104) 100 05/27/18 08:00 32 05/27/18 08:00 Mechanical Ventilator Mechanical Ventilator 05/27/18 07:35 Endotracheal Tube 45 05/27/18 07:05 60 29 45 05/27/18 07:00 64 28 91/38 (55) 100 05/27/18 07:00 88/34 05/27/18 06:00 67 28 100/48 (65) 100 05/27/18 05:53 45 05/27/18 05:30 73 28 109/61 (77) 100 05/27/18 05:00 62 24 50 05/27/18 05:00 69 28 121/54 (76) 100 05/27/18 04:30 97.3 60 28 149/62 (91) 100 05/27/18 04:00 32 05/27/18 04:00 Mechanical Ventilator Mechanical Ventilator 05/27/18 04:00 63 05/27/18 04:00 70 28 143/54 (83) 100 05/27/18 03:30 69 28 122/60 (80) 100 05/27/18 03:02 62 27 50 05/27/18 03:00 64 28 113/48 (69) 100 05/27/18 02:00 64 28 116/48 (70) 100 05/27/18 01:30 67 28 94/58 (70) 100 05/27/18 01:00 97.5 66 27 132/56 (81) 100 05/27/18 00:52 61 29 50 05/27/18 00:30 65 29 109/23 (51) 100 05/27/18 00:00 65 23 108/38 (61) 100 05/27/18 00:00 Mechanical Ventilator Mechanical Ventilator 05/27/18 00:00 32 05/27/18 00:00 68 05/26/18 23:30 72 23 93/37 (55) 100 05/26/18 23:04 71 24 50 05/26/18 23:02 72 23 113/51 (71) 100 05/26/18 22:30 71 28 116/48 (70) 100 05/26/18 22:00 76 27 169/64 (99) 100 05/26/18 21:30 64 26 76/41 (53) 100 05/26/18 21:00 63 23 94/59 (71) 100 05/26/18 21:00 70 32 30 05/26/18 20:30 67 29 97/18 (44) 100 05/26/18 20:00 69 23 108/25 (52) 100 05/26/18 20:00 70 05/26/18 20:00 32 05/26/18 20:00 Mechanical Ventilator Mechanical Ventilator 05/26/18 19:30 70 28 118/33 (61) 100 05/26/18 19:15 96.7 72 23 112/32 (58) 100 05/26/18 19:00 69 23 108/25 (52) 100 05/26/18 19:00 68 29 30 05/26/18 18:30 69 23 114/22 (52) 100 05/26/18 18:15 72 23 84/60 (68) 100 Intake and Output 05/26/18 05/27/18 19:00 07:00 Intake Total 1161.247 ml 534.038 ml Output Total 917 ml 810 ml Balance 244.247 ml -275.962 ml IV Total 1161.247 ml 534.038 ml Output Urine Total 45 ml 10 ml Gastric Drainage Total 400 ml 500 ml Drainage Total 472 ml 300 ml # Bowel Movements 2 2 Laboratory Tests 05/27/18 04:20: White Blood Count 13.4H, Red Blood Count 3.06L, Hemoglobin 9.2L, Hematocrit 26.3L, Mean Corpuscular Volume 86, Mean Corpuscular Hemoglobin 30.2, Mean Corpuscular Hemoglobin Concent 35.1, Red Cell Distribution Width 15.3H, Platelet Count 89L, Mean Platelet Volume 10.0, Neutrophils (%) (Auto) , Lymphocytes (%) (Auto) , Monocytes (%) (Auto) , Eosinophils (%) (Auto) , Basophils (%) (Auto) , Differential Total Cells Counted 100, Neutrophils % ( Manual) 82H, Lymphocytes % (Manual) 3L, Monocytes % (Manual) 2, Eosinophils % ( Manual) 0, Basophils % (Manual) 0, Band Neutrophils 13H, Platelet Estimate DecreasedL, Platelet Morphology Normal, Polychromasia 1+, Hypochromasia 1+, Anisocytosis 2+, Prothrombin Time 13.2H, Prothromb Time International Ratio 1.3H , Activated Partial Thromboplast Time 45H, Fibrinogen 541H, Sodium Level 123L, Potassium Level 2.2*L, Chloride Level 85L, Carbon Dioxide Level 18L, Anion Gap 20H, Blood Urea Nitrogen 104H, Creatinine 5.9H, Estimat Glomerular Filtration Rate , Glucose Level 236H, Uric Acid 7.6H, Calcium Level 6.9L, Phosphorus Level 6.4H, Magnesium Level 1.6L, Total Bilirubin 0.5, Gamma Glutamyl Transpeptidase 41, Aspartate Amino Transf (AST/SGOT) 22, Alanine Aminotransferase (ALT/SGPT) 13 , Alkaline Phosphatase 131H, C-Reactive Protein, Quantitative 10.1H, Pro-B-Type Natriuretic Peptide 93719N, Total Protein 3.9L, Albumin 0.8L, Globulin 3.1, Albumin/Globulin Ratio 0.3L, Triglycerides Level 202H, Cholesterol Level 54, LDL Cholesterol 29, HDL Cholesterol 9L, Cholesterol/HDL Ratio 6.0H 05/27/18 17:50: Sodium Level [Pending], Potassium Level [Pending], Chloride Level [Pending], Carbon Dioxide Level [Pending], Blood Urea Nitrogen [Pending], Creatinine [ Pending], Estimat Glomerular Filtration Rate [Pending], Glucose Level [Pending] , Calcium Level [Pending] Height (Feet): 5 Height (Inches): 5.00 Weight (Pounds): 185 Objective GENERAL: Intubated. LUNGS: Decreased breath sounds bilaterally. HEART: S1 S2 Regular. ABDOMEN: Bandages applied with drains noted. EXTREMITIES: No cyanosis. No clubbing. Sid Holland May 27, 2018 18:05
--- NOTE | 2018-05-27 18:12 | Brief Operative Note ---
Immediate Post Operative Note Operative Note Pre-op Diagnosis: recent lap matthew, abdominal pain, sepsis, pneumoperitoneum, biliary leak vs bowel leak Procedure: planned re-exploration of abdomen, abdominal wash out, completion omentectomy, right hemicolectomy, abdominal closure. Post-op Diagnosis: same as pre-op Surgeon: richmond Anesthesiologist: dimitri Anesthesia: general Specimen: yes Complications: none Condition: unstable Fluids: see records Estimated Blood Loss: minimal Drains: VELVET Implant(s) used?: No Tomas Chandler May 27, 2018 18:12
[2018-05-27 18:29] LABS: ANION GAP 17 mmol/L (5-15); BLOOD UREA NITROGEN 78 mg/dL (7-18); CALCIUM 7.1 MG/DL (8.5-10.1); CARBON DIOXIDE 23 MMOL/L (21-32); CHLORIDE 95 MMOL/L (98-107); CREATININE 4.7 MG/DL (0.55-1.30); POTASSIUM 2.9 MMOL/L (3.5-5.1); SODIUM 134 MMOL/L (136-145)
--- NOTE | 2018-05-27 20:00 | NUR ---
NURSE NOTES: Patient received from Junior AGUILA. Patient just arrived from OR. Patient is on Levophed gtt, Amiodarone gtt at 0.5mg, TPN at 85.417ml/hr, and is running abx and replenishing potassium and magnesium via IV. Patient does have a L subclavian TLC and a R femoral Donis catheter for HD access with a pigtail for IV access. Patient Also has 2 VELVET drains in the abdomen with serosanguineous fluid. Abdomen is covered with dressing, patient has janell on abdomen. Patient is supine for blood pressure support. Levophed at 2mcg. Patient also has OGT that is on Intermittent suction with brown/red tinge emesis. Patient has SCDs on. Patient is on a ventilator AC 16, 500tv, FiO2 of 50% and peep of 5. ETT 8.5, 22cm at the lip. Patient is lethargic. HR is 75 SR. Will continue to monitor.
[2018-05-27] MEDS: Dyna-Hex 2% Top Sol 2oz TOPIC SCH (20:11)
[2018-05-27] MEDS ORDERED: Amiodarone 900 MG in D5W 500ml 482 ML IV SCH (21:00)
--- NOTE | 2018-05-27 21:00 | NUR ---
NURSE NOTES: Glucose 100. No coverage provided but still gave Levemir. New Amio and TPN bag hung. Patient continues to be on pressors as BP continues to be on the low side, managed to turn off pressure at one point but patients BP bottomed out on the low side and had to turn on pressor on again. Patient in 2 mcg.
--- NOTE | 2018-05-27 21:29 | General Progress Note ---
Assessment/Plan Problem List: (1) ACS (acute coronary syndrome) ICD Codes: I24.9 - Acute ischemic heart disease, unspecified SNOMED: 766920891 (2) ESRD (end stage renal disease) on dialysis ICD Codes: N18.6 - End stage renal disease; Z99.2 - Dependence on renal dialysis SNOMED: 085238721 (3) Depression ICD Codes: F32.9 - Major depressive disorder, single episode, unspecified SNOMED: 11722194 (4) Anemia ICD Codes: D64.9 - Anemia, unspecified SNOMED: 740248804 (5) Sacral decubitus ulcer, stage III ICD Codes: L89.153 - Pressure ulcer of sacral region, stage 3 SNOMED: 917159648, 406316134 (6) Major depression ICD Codes: F32.9 - Major depressive disorder, single episode, unspecified SNOMED: 340116637 (7) anxiety disorder (8) Atrial fibrillation ICD Codes: I48.91 - Unspecified atrial fibrillation SNOMED: 35570722 (9) Hypoxemia ICD Codes: R09.02 - Hypoxemia SNOMED: 796355199 (10) Hypotension ICD Codes: I95.9 - Hypotension, unspecified SNOMED: 05182422 (11) Shock ICD Codes: R57.9 - Shock, unspecified SNOMED: 01224684 (12) Elevated d-dimer ICD Codes: R79.89 - Other specified abnormal findings of blood chemistry SNOMED: 394863313 (13) encephalopathy due to metabolic factor Status: progressing Assessment/Plan respiratory failure intubated s/p washout of pus / multiple exploratory lap anemia critical condition in septic shock esrd on hd s/p septic shock arrythmia hypotension improved afebrile abx per id poor prognosis Subjective ROS Limited/Unobtainable: Yes Allergies: Coded Allergies: No Known Allergies (Unverified , 11/12/12) Objective Last 24 Hour Vital Signs Date Time Temp Pulse Resp B/P (MAP) Pulse Ox O2 Delivery O2 Flow Rate FiO2 05/27/18 20:57 72 28 40 05/27/18 20:10 71 30 50 05/27/18 19:00 71 28 86/32 (50) 100 05/27/18 18:30 71 28 81/32 (48) 100 05/27/18 18:00 73 26 107/36 (59) 99 05/27/18 17:46 67 15 100 05/27/18 17:30 71 25 45 05/27/18 17:30 76 25 101/33 (55) 100 05/27/18 17:00 73 25 96/27 (50) 92 05/27/18 16:00 Mechanical Ventilator Mechanical Ventilator 05/27/18 16:00 50 05/27/18 14:30 111/47 05/27/18 14:00 87 28 140/63 (88) 100 05/27/18 13:30 86 28 130/58 (82) 100 05/27/18 13:10 85 34 45 05/27/18 13:00 98.8 86 28 130/58 (82) 100 05/27/18 13:00 130/58 05/27/18 12:30 111/75 05/27/18 12:30 79 28 111/75 (87) 100 05/27/18 12:00 Mechanical Ventilator Mechanical Ventilator 05/27/18 12:00 115/61 05/27/18 12:00 73 05/27/18 12:00 32 05/27/18 12:00 78 28 93/47 (62) 100 05/27/18 12:00 73 28 93/47 (62) 100 05/27/18 11:30 78 28 115/61 (79) 100 05/27/18 11:00 78 28 124/57 (79) 100 05/27/18 11:00 124/57 05/27/18 10:45 74 31 45 05/27/18 10:30 81 28 124/71 (88) 100 05/27/18 10:00 137/77 05/27/18 10:00 83 28 132/77 (95) 100 05/27/18 09:30 91 28 132/100 (111) 100 05/27/18 09:10 60 18 45 05/27/18 09:00 91/34 05/27/18 09:00 97.2 95 28 133/70 (91) 100 05/27/18 08:00 68 05/27/18 08:00 66 28 132/90 (104) 100 05/27/18 08:00 32 05/27/18 08:00 Mechanical Ventilator Mechanical Ventilator 05/27/18 07:35 Endotracheal Tube 45 05/27/18 07:05 60 29 45 05/27/18 07:00 64 28 91/38 (55) 100 05/27/18 07:00 88/34 05/27/18 06:00 67 28 100/48 (65) 100 05/27/18 05:53 45 05/27/18 05:30 73 28 109/61 (77) 100 05/27/18 05:00 62 24 50 05/27/18 05:00 69 28 121/54 (76) 100 05/27/18 04:30 97.3 60 28 149/62 (91) 100 05/27/18 04:00 32 05/27/18 04:00 Mechanical Ventilator Mechanical Ventilator 05/27/18 04:00 63 05/27/18 04:00 70 28 143/54 (83) 100 05/27/18 03:30 69 28 122/60 (80) 100 05/27/18 03:02 62 27 50 05/27/18 03:00 64 28 113/48 (69) 100 05/27/18 02:00 64 28 116/48 (70) 100 05/27/18 01:30 67 28 94/58 (70) 100 05/27/18 01:00 97.5 66 27 132/56 (81) 100 05/27/18 00:52 61 29 50 05/27/18 00:30 65 29 109/23 (51) 100 05/27/18 00:00 65 23 108/38 (61) 100 05/27/18 00:00 Mechanical Ventilator Mechanical Ventilator 05/27/18 00:00 32 05/27/18 00:00 68 05/26/18 23:30 72 23 93/37 (55) 100 05/26/18 23:04 71 24 50 05/26/18 23:02 72 23 113/51 (71) 100 05/26/18 22:30 71 28 116/48 (70) 100 05/26/18 22:00 76 27 169/64 (99) 100 05/26/18 21:30 64 26 76/41 (53) 100 Intake and Output 05/26/18 05/27/18 19:00 07:00 Intake Total 1161.247 ml 534.038 ml Output Total 917 ml 810 ml Balance 244.247 ml -275.962 ml IV Total 1161.247 ml 534.038 ml Output Urine Total 45 ml 10 ml Gastric Drainage Total 400 ml 500 ml Drainage Total 472 ml 300 ml # Bowel Movements 2 2 Laboratory Tests 05/27/18 04:20: White Blood Count 13.4H, Red Blood Count 3.06L, Hemoglobin 9.2L, Hematocrit 26.3L, Mean Corpuscular Volume 86, Mean Corpuscular Hemoglobin 30.2, Mean Corpuscular Hemoglobin Concent 35.1, Red Cell Distribution Width 15.3H, Platelet Count 89L, Mean Platelet Volume 10.0, Neutrophils (%) (Auto) , Lymphocytes (%) (Auto) , Monocytes (%) (Auto) , Eosinophils (%) (Auto) , Basophils (%) (Auto) , Differential Total Cells Counted 100, Neutrophils % ( Manual) 82H, Lymphocytes % (Manual) 3L, Monocytes % (Manual) 2, Eosinophils % ( Manual) 0, Basophils % (Manual) 0, Band Neutrophils 13H, Platelet Estimate DecreasedL, Platelet Morphology Normal, Polychromasia 1+, Hypochromasia 1+, Anisocytosis 2+, Prothrombin Time 13.2H, Prothromb Time International Ratio 1.3H , Activated Partial Thromboplast Time 45H, Fibrinogen 541H, Sodium Level 123L, Potassium Level 2.2*L, Chloride Level 85L, Carbon Dioxide Level 18L, Anion Gap 20H, Blood Urea Nitrogen 104H, Creatinine 5.9H, Estimat Glomerular Filtration Rate , Glucose Level 236H, Uric Acid 7.6H, Calcium Level 6.9L, Phosphorus Level 6.4H, Magnesium Level 1.6L, Total Bilirubin 0.5, Gamma Glutamyl Transpeptidase 41, Aspartate Amino Transf (AST/SGOT) 22, Alanine Aminotransferase (ALT/SGPT) 13 , Alkaline Phosphatase 131H, C-Reactive Protein, Quantitative 10.1H, Pro-B-Type Natriuretic Peptide 94511N, Total Protein 3.9L, Albumin 0.8L, Globulin 3.1, Albumin/Globulin Ratio 0.3L, Triglycerides Level 202H, Cholesterol Level 54, LDL Cholesterol 29, HDL Cholesterol 9L, Cholesterol/HDL Ratio 6.0H 05/27/18 17:50: Sodium Level 134#L, Potassium Level 2.9L, Chloride Level 95L, Carbon Dioxide Level 23, Anion Gap 17H, Blood Urea Nitrogen 78H, Creatinine 4.7H, Estimat Glomerular Filtration Rate , Glucose Level 101#, Calcium Level 7.1L Height (Feet): 5 Height (Inches): 5.00 Weight (Pounds): 185 General Appearance: lethargic Abdomen: tender Samantha Head MD May 27, 2018 21:29
[2018-05-27] MEDS: TPN IV SCH (21:45)
[2018-05-27] MEDS: FAT EMULSION 20% IV SCH (21:45)
--- NOTE | 2018-05-27 22:00 | NUR ---
NURSE NOTES: Patient remains stable on Levophed. BP stable with Levophed, will continue to try to turn off pressor as soon BP becomes more stable, Amio and TPN remains running, Electrolyte replacement still ongoing and abx running.
--- NOTE | 2018-05-27 22:22 | General Progress Note ---
Assessment/Plan Assessment/Plan Assessment - septic shock - abdominal infection - resp failure - renal failure - malnutrition Recommendation - supportive care - Abx - pressors - TPN per renal - follow labs - vent care - HD - guarded Subjective Allergies: Coded Allergies: No Known Allergies (Unverified , 11/12/12) Subjective seen early am today still with wound vac at that time for another surgical eval today Objective Last 24 Hour Vital Signs Date Time Temp Pulse Resp B/P (MAP) Pulse Ox O2 Delivery O2 Flow Rate FiO2 05/27/18 20:57 72 28 40 05/27/18 20:10 71 30 50 05/27/18 19:00 71 28 86/32 (50) 100 05/27/18 18:30 71 28 81/32 (48) 100 05/27/18 18:00 73 26 107/36 (59) 99 05/27/18 17:46 67 15 100 05/27/18 17:30 71 25 45 05/27/18 17:30 76 25 101/33 (55) 100 05/27/18 17:00 73 25 96/27 (50) 92 05/27/18 16:00 Mechanical Ventilator Mechanical Ventilator 05/27/18 16:00 50 05/27/18 14:30 111/47 05/27/18 14:00 87 28 140/63 (88) 100 05/27/18 13:30 86 28 130/58 (82) 100 05/27/18 13:10 85 34 45 05/27/18 13:00 98.8 86 28 130/58 (82) 100 05/27/18 13:00 130/58 05/27/18 12:30 111/75 05/27/18 12:30 79 28 111/75 (87) 100 05/27/18 12:00 Mechanical Ventilator Mechanical Ventilator 05/27/18 12:00 115/61 05/27/18 12:00 73 05/27/18 12:00 32 05/27/18 12:00 78 28 93/47 (62) 100 05/27/18 12:00 73 28 93/47 (62) 100 05/27/18 11:30 78 28 115/61 (79) 100 05/27/18 11:00 78 28 124/57 (79) 100 05/27/18 11:00 124/57 05/27/18 10:45 74 31 45 05/27/18 10:30 81 28 124/71 (88) 100 05/27/18 10:00 137/77 05/27/18 10:00 83 28 132/77 (95) 100 05/27/18 09:30 91 28 132/100 (111) 100 05/27/18 09:10 60 18 45 05/27/18 09:00 91/34 05/27/18 09:00 97.2 95 28 133/70 (91) 100 05/27/18 08:00 68 05/27/18 08:00 66 28 132/90 (104) 100 05/27/18 08:00 32 05/27/18 08:00 Mechanical Ventilator Mechanical Ventilator 05/27/18 07:35 Endotracheal Tube 45 05/27/18 07:05 60 29 45 05/27/18 07:00 64 28 91/38 (55) 100 05/27/18 07:00 88/34 05/27/18 06:00 67 28 100/48 (65) 100 05/27/18 05:53 45 05/27/18 05:30 73 28 109/61 (77) 100 05/27/18 05:00 62 24 50 05/27/18 05:00 69 28 121/54 (76) 100 05/27/18 04:30 97.3 60 28 149/62 (91) 100 05/27/18 04:00 32 05/27/18 04:00 Mechanical Ventilator Mechanical Ventilator 05/27/18 04:00 63 05/27/18 04:00 70 28 143/54 (83) 100 05/27/18 03:30 69 28 122/60 (80) 100 05/27/18 03:02 62 27 50 05/27/18 03:00 64 28 113/48 (69) 100 05/27/18 02:00 64 28 116/48 (70) 100 05/27/18 01:30 67 28 94/58 (70) 100 05/27/18 01:00 97.5 66 27 132/56 (81) 100 05/27/18 00:52 61 29 50 05/27/18 00:30 65 29 109/23 (51) 100 05/27/18 00:00 65 23 108/38 (61) 100 05/27/18 00:00 Mechanical Ventilator Mechanical Ventilator 05/27/18 00:00 32 05/27/18 00:00 68 05/26/18 23:30 72 23 93/37 (55) 100 05/26/18 23:04 71 24 50 05/26/18 23:02 72 23 113/51 (71) 100 05/26/18 22:30 71 28 116/48 (70) 100 Intake and Output 05/26/18 05/27/18 19:00 07:00 Intake Total 1161.247 ml 534.038 ml Output Total 917 ml 810 ml Balance 244.247 ml -275.962 ml IV Total 1161.247 ml 534.038 ml Output Urine Total 45 ml 10 ml Gastric Drainage Total 400 ml 500 ml Drainage Total 472 ml 300 ml # Bowel Movements 2 2 Laboratory Tests 05/27/18 04:20: White Blood Count 13.4H, Red Blood Count 3.06L, Hemoglobin 9.2L, Hematocrit 26.3L, Mean Corpuscular Volume 86, Mean Corpuscular Hemoglobin 30.2, Mean Corpuscular Hemoglobin Concent 35.1, Red Cell Distribution Width 15.3H, Platelet Count 89L, Mean Platelet Volume 10.0, Neutrophils (%) (Auto) , Lymphocytes (%) (Auto) , Monocytes (%) (Auto) , Eosinophils (%) (Auto) , Basophils (%) (Auto) , Differential Total Cells Counted 100, Neutrophils % ( Manual) 82H, Lymphocytes % (Manual) 3L, Monocytes % (Manual) 2, Eosinophils % ( Manual) 0, Basophils % (Manual) 0, Band Neutrophils 13H, Platelet Estimate DecreasedL, Platelet Morphology Normal, Polychromasia 1+, Hypochromasia 1+, Anisocytosis 2+, Prothrombin Time 13.2H, Prothromb Time International Ratio 1.3H , Activated Partial Thromboplast Time 45H, Fibrinogen 541H, Sodium Level 123L, Potassium Level 2.2*L, Chloride Level 85L, Carbon Dioxide Level 18L, Anion Gap 20H, Blood Urea Nitrogen 104H, Creatinine 5.9H, Estimat Glomerular Filtration Rate , Glucose Level 236H, Uric Acid 7.6H, Calcium Level 6.9L, Phosphorus Level 6.4H, Magnesium Level 1.6L, Total Bilirubin 0.5, Gamma Glutamyl Transpeptidase 41, Aspartate Amino Transf (AST/SGOT) 22, Alanine Aminotransferase (ALT/SGPT) 13 , Alkaline Phosphatase 131H, C-Reactive Protein, Quantitative 10.1H, Pro-B-Type Natriuretic Peptide 12128J, Total Protein 3.9L, Albumin 0.8L, Globulin 3.1, Albumin/Globulin Ratio 0.3L, Triglycerides Level 202H, Cholesterol Level 54, LDL Cholesterol 29, HDL Cholesterol 9L, Cholesterol/HDL Ratio 6.0H 05/27/18 17:50: Sodium Level 134#L, Potassium Level 2.9L, Chloride Level 95L, Carbon Dioxide Level 23, Anion Gap 17H, Blood Urea Nitrogen 78H, Creatinine 4.7H, Estimat Glomerular Filtration Rate , Glucose Level 101#, Calcium Level 7.1L Height (Feet): 5 Height (Inches): 5.00 Weight (Pounds): 185 Objective Intubated NCAT ETT / OGT Supple Coarse BS RR abd more flat, (+) large central wound vac no edema Lisa Jain MD May 27, 2018 22:22
[2018-05-28] VITALS (29 sets, daily range): BP systolic 86–155; BP diastolic 28–92
--- NOTE | 2018-05-28 | NUR ---
NURSE NOTES: Patient has temperature of 101.0F, Cooling measures was initiated. Patient on Levo at 1mcg. Tried to turn off pressor but BP would decrease and stayed low even after several cycles. 1mcg seems where patient BP is most comfortable for now.
--- NOTE | 2018-05-28 00:15 | Operative Note - Dictated ---
DATE OF OPERATION: 05/27/2018 PREOPERATIVE DIAGNOSIS: History of laparoscopic cholecystectomy at outside facility by another physician with iatrogenic small bowel perforation with delayed presentation requiring exploration, abdominal washout, bowel resection in which the anastomosis was complicated by a leak requiring repeat exploration, washout and open abdomen without being left in continuity until abdominal sepsis could be resolved, and the patient would be stable for definitive surgery. POSTOPERATIVE DIAGNOSIS: History of laparoscopic cholecystectomy at outside facility by another physician with iatrogenic small bowel perforation with delayed presentation requiring exploration, abdominal washout, bowel resection in which the anastomosis was complicated by a leak requiring repeat exploration, washout and open abdomen without being left in continuity until abdominal sepsis could be resolved, and the patient would be stable for definitive surgery. OPERATIONS PERFORMED: 1. Planned re-exploration of abdomen. 2. Removal of abdominal wound VAC. 3. Abdominal washout. 4. Completion omentectomy. 5. Right hemicolectomy. 6. Abdominal closure with drain placement. ATTENDING SURGEON: Tomas Chandler M.D. SPLUNK ARCHITECT: None. ANESTHESIOLOGIST: Kj Estrada M.D. ANESTHESIA: General CONE OPERATOR. ESTIMATED BLOOD LOSS: 50 mL. IV FLUIDS: Please see anesthesia records. COMPLICATIONS: None. DRAINS: Two VELVET drains, one on the right and one on the left. SPECIMENS: 1. Omentum. 2. Right hemicolectomy. WOUND CLASSIFICATION: Class IV. INDICATIONS FOR PROCEDURE: This is a 78-year-old male who had a laparoscopic cholecystectomy done at an outside facility by another surgeon, who soon after presented to [facility] with complaints of shortness of breath and was found to have a delayed presentation of what seemed to be abdominal sepsis prompting exploration, which identified an iatrogenic small bowel perforation in the distal small bowel with generalized abdominal sepsis and peritonitis. At that time, a partial omentectomy was performed in the area where there was significant omental abscesses followed by abdominal washout, bowel resection with primary [id number] anastomosis and abdominal closure. The patient was taken to the intensive care unit for recovery, but unfortunately began to decline prompting our considerations for potential leak given the patient's condition had worsened. Since admission, he had been on steroids prior with end-stage renal disease. As the patient had improved, he was stabilized. Once stable, he was taken to the operating room for exploration at which time he was found to have an anastomotic leak. At this time, the patient was significantly ill and unstable and therefore small bowel resection was performed. The bowel was left in discontinuity and the abdomen was washed out, and left open with abdominal wound VAC. The patient was stabilized in intensive care unit over the subsequent days and wound VAC change was performed and once stabilized, and off pressors he was taken to the operating room for definitive management. Unfortunately, the patient does not have next of kin or power of assistant city attorney and the only other person in that could be found and contacted through all efforts was a neighbor, who is also his friend but who does not make medical decisions for him. Prior to declining condition, the patient was awake and Full Code, and very pleasant male who unfortunately did not express his complete will, but stated that he did want to be Full Code with all interventions. Given this emergency consent was necessary and obtained and after multidisciplinary team discussions about the patient's care and management. The patient's prognosis is guarded of his potential survival and all efforts will be made to help assist in that possibility. OPERATIVE NOTE: The patient was taken to the operating room from the intensive care unit. The patient was placed on the operating table in supine position with bilateral arms out. All bony prominences were well padded. Prior to entering the operating room, the patient already had ET tube, NG tube, SCDs, and Hastings catheter in place. The patient had abdominal wound VAC in place. A time-out was taken identifying the patient, procedure, operative staff, and surgical staff. The abdominal wound VAC was removed and the abdomen was clipped, prepped, and draped in standard surgical fashion. The abdomen was inspected and there was a fair amount of odorous fluid in all quadrants that was washed out. At this time, the omentum that was draped over the bowel during the prior surgery was evaluated and noted to be have developed significantly more abscesses within the omentum. A completion omentectomy was performed using a Thunderbeat energy device. Once the omentum was completely divided and sent off the field. The abdomen was then inspected washout in all quadrants beginning with the right upper quadrant followed by the right lower quadrant and pelvis, the left lower quadrant, and right upper quadrant. Stomach wound was identified and palpated and no abnormalities were noted, and NG tube was in place. Spleen was otherwise normal. On the right upper quadrant, the liver was otherwise normal. The gallbladder fossa had inflammatory changes from the recent lap matthew with clips being noted and fat pedicle of the hepatic flexure, right colon, and pericolonic fat adhesed to it. The small bowel was identified and run from the ligament of Treitz down to the area of discontinuity and distally as well to the ileocecal valve. The appendix, the cecum, ascending, hepatic flexure, transverse, splenic flexure, descending, sigmoid colon were otherwise normal. At this time, given the amount of resection required prior and the considerations were made for the entire anastomosis that was to be done. There was only a small portion of the terminal ileum left and there was question if anastomosis would be stable in this area. Furthermore, in the mesentery of the terminal ileum and cecum, there were significant mesenteric abscesses identified. At this time, a decision was made to proceed with a right hemicolectomy for a proper anastomosis. The white line of Toldt was divided on the right side and the right colon, cecum, and hepatic flexure were mobilized. Care was taken to ensure no injury to the ureter or duodenum, which were both identified and preserved. At that this time, the mesentery was divided from the area of distal bowel discontinuity towards the right colon. The right colic artery and vein were identified and circumferentially exposed out and divided using the energy device. Following this, a linear 75 mm stapler was used and the right colon was divided. Specimen was sent off as right hemicolectomy. Unfortunately further dissection of the hepatic flexure was necessary for proper anastomosis and the mesentery of the colon that was attached to the gallbladder fossa was dissected out. Hemostasis was obtained from the liver bed using electrocautery and Surgicels were placed. The right colon was mobilized. Once this was complete, good area for [id number]-nwia small bowel colonic anastomosis was identified. A posterior layer of 2-0 silk Lembert sutures was placed followed by enterotomies being made in the colon and the colon as well as the small bowel. A linear 55 mm stapler was entered and divided and proper anastomosis was made. The remaining defect was closed in a two-layer fashion beginning with 3-0 Vicryl running suture followed by 3-0 silk Lembert interrupted sutures over the staple line. The patency of the anastomosis was identified. No leak was noted. Following this, the bowel was rerun and noted to be pain without complication. The remainder of the mesentery was without abscesses or complications. The abdomen was washed out with copious amounts of warm sterile saline. At the completion of the procedure, decision made to leave a second 19-Vietnamese Jose-Rodriguez drain in the right side of the abdomen. The drain was placed and sutured to the skin using 2-0 nylon suture. The patient's prior left lower abdominal drain was left in place from the prior surgery. Once the abdominal contents were cleared, hemostasis was identified. No abnormalities were noted. Decision was made to begin the closure. The fascia was reapproximated in the abdomen, closed using a #0 PDS loop running sutures. The skin incision was left open and packed with gauze and dressings were applied. The patient tolerated the procedure well, was taken back to the intensive care unit in similar condition. Of note, the patient required intermittent pressors of Levophed throughout the procedure, which was weaned off soon within minutes of return to the intensive care unit. Furthermore during the procedure, a SH needle from a 3-0 silk was dislodged during unloading the patient off the table on the back table. This suture fell on to the floor posteriorly off the operative field. Tomas Chandler M.D. DR: SRINIVASA JOB#: [id number] CC: RON
[2018-05-28] MEDS: NovoLOG Insulin Flexpen SUBQ SCH ×12 (01:01→20:48)
--- NOTE | 2018-05-28 02:00 | NUR ---
NURSE NOTES: Temperature noted to be now at 100.3F, cooling measure are still ongoing. Glucose reading for 0100 was 146, coverage was provided.
--- NOTE | 2018-05-28 04:00 | NUR ---
NURSE NOTES: Patient cleaned. Glucose reading 168, coverage provided. Temperature is 100.0F, cooling measures ongoing. Patient remains on pressor 0.5mcg. Tried to turn off but patient bottoms out when off Levophed.
--- NOTE | 2018-05-28 06:00 | NUR ---
NURSE NOTES: Latest temperature 99.5F. Cooling measures ongoing. NAD.
[2018-05-28] MEDS: Hydrocortisone 100mg Inj IV SCH ×3 (06:21→21:59)
--- NOTE | 2018-05-28 06:37 | General Progress Note ---
Assessment/Plan Problem List: (1) Perforated viscus ICD Codes: R19.8 - Other specified symptoms and signs involving the digestive system and abdomen SNOMED: 33797633, 824805782, 598874064 (2) ESRD (end stage renal disease) on dialysis ICD Codes: N18.6 - End stage renal disease; Z99.2 - Dependence on renal dialysis SNOMED: 540686276 (3) Shock ICD Codes: R57.9 - Shock, unspecified SNOMED: 01849409 (4) Diabetes mellitus out of control ICD Codes: E11.65 - Type 2 diabetes mellitus with hyperglycemia SNOMED: 39646706, 541222203 Assessment/Plan continue BG monitoring and Novolog sliding scale every 4 hours continue Novolog 10 units every 4 hours continue Levemir 20 units bid Subjective ROS Limited/Unobtainable: Yes Allergies: Coded Allergies: No Known Allergies (Unverified , 11/12/12) Subjective intubated in icu open abd incision with wound vac on TPN Objective Last 24 Hour Vital Signs Date Time Temp Pulse Resp B/P (MAP) Pulse Ox O2 Delivery O2 Flow Rate FiO2 05/28/18 06:00 99.5 77 28 92/40 (57) 100 05/28/18 05:54 85 31 40 05/28/18 05:30 77 29 109/53 (71) 100 05/28/18 05:00 78 29 97/44 (61) 100 05/28/18 04:00 35 05/28/18 04:00 85 05/28/18 04:00 100.0 87 30 103/46 (65) 100 05/28/18 04:00 Mechanical Ventilator Mechanical Ventilator 05/28/18 03:30 84 30 118/44 (68) 100 05/28/18 03:00 83 30 97/39 (58) 100 05/28/18 02:56 77 30 40 05/28/18 02:30 79 30 103/56 (72) 100 05/28/18 02:00 82 30 94/28 (50) 100 05/28/18 01:30 78 30 97/39 (58) 100 05/28/18 01:02 82 26 40 05/28/18 01:00 101.0 83 30 97/39 (58) 100 05/28/18 00:30 71 28 86/32 (50) 100 05/28/18 00:00 82 30 105/40 (61) 100 05/28/18 00:00 81 05/28/18 00:00 Mechanical Ventilator Mechanical Ventilator 05/28/18 00:00 35 05/27/18 23:30 80 31 101/40 (60) 100 05/27/18 23:00 82 30 118/50 (72) 100 05/27/18 22:55 81 29 40 05/27/18 22:30 76 29 95/59 (71) 100 05/27/18 22:00 75 30 121/35 (63) 100 05/27/18 21:30 79 31 105/38 (60) 100 05/27/18 21:00 74 29 97/40 (59) 100 05/27/18 20:57 72 28 40 05/27/18 20:30 72 29 105/38 (60) 100 05/27/18 20:10 71 30 50 05/27/18 20:00 98.8 72 29 99/46 (63) 100 05/27/18 20:00 Mechanical Ventilator Mechanical Ventilator 05/27/18 20:00 71 05/27/18 20:00 40 05/27/18 19:30 72 30 85/46 (59) 100 05/27/18 19:00 71 28 86/32 (50) 100 05/27/18 18:30 71 28 81/32 (48) 100 05/27/18 18:00 73 26 107/36 (59) 99 05/27/18 17:46 67 15 100 05/27/18 17:30 71 25 45 05/27/18 17:30 76 25 101/33 (55) 100 05/27/18 17:00 73 25 96/27 (50) 92 05/27/18 16:00 Mechanical Ventilator Mechanical Ventilator 05/27/18 16:00 50 05/27/18 14:30 111/47 05/27/18 14:00 87 28 140/63 (88) 100 05/27/18 13:30 86 28 130/58 (82) 100 05/27/18 13:10 85 34 45 05/27/18 13:00 98.8 86 28 130/58 (82) 100 05/27/18 13:00 130/58 05/27/18 12:30 111/75 05/27/18 12:30 79 28 111/75 (87) 100 05/27/18 12:00 Mechanical Ventilator Mechanical Ventilator 05/27/18 12:00 115/61 05/27/18 12:00 73 05/27/18 12:00 32 05/27/18 12:00 78 28 93/47 (62) 100 05/27/18 12:00 73 28 93/47 (62) 100 05/27/18 11:30 78 28 115/61 (79) 100 05/27/18 11:00 78 28 124/57 (79) 100 05/27/18 11:00 124/57 05/27/18 10:45 74 31 45 05/27/18 10:30 81 28 124/71 (88) 100 05/27/18 10:00 137/77 05/27/18 10:00 83 28 132/77 (95) 100 05/27/18 09:30 91 28 132/100 (111) 100 05/27/18 09:10 60 18 45 05/27/18 09:00 91/34 05/27/18 09:00 97.2 95 28 133/70 (91) 100 05/27/18 08:00 68 05/27/18 08:00 66 28 132/90 (104) 100 05/27/18 08:00 32 05/27/18 08:00 Mechanical Ventilator Mechanical Ventilator 05/27/18 07:35 Endotracheal Tube 45 05/27/18 07:05 60 29 45 05/27/18 07:00 64 28 91/38 (55) 100 05/27/18 07:00 88/34 Intake and Output 05/27/18 05/28/18 18:59 06:59 Intake Total 365.00 ml 1671.1733 ml Output Total 2580 ml 1450 ml Balance -2215.00 ml 221.1733 ml IV Total 365.00 ml 1671.1733 ml Output Urine Total 0 ml 0 ml Gastric Drainage Total 500 ml 1300 ml Drainage Total 80 ml 150 ml Hemodialysis UF 2000 ml # Bowel Movements 2 1 Laboratory Tests 05/27/18 17:50: Sodium Level 134#L, Potassium Level 2.9L, Chloride Level 95L, Carbon Dioxide Level 23, Anion Gap 17H, Blood Urea Nitrogen 78H, Creatinine 4.7H, Estimat Glomerular Filtration Rate , Glucose Level 101#, Calcium Level 7.1L Height (Feet): 5 Height (Inches): 5.00 Weight (Pounds): 185 General Appearance: other - intubated EENT: other - ETT Cardiovascular: tachycardia Respiratory/Chest: decreased breath sounds Abdomen: hypoactive bowel sounds Edema: 1+ Arm (L), 1+ Arm (R), 1+ Leg (L), 1+ Leg (R), 1+ Pedal (L), 1+ Pedal ( R), 1+ Generalized Objective Current Medications Medications (Trade) Dose Ordered Sig/Min Route PRN Reason Start Time Stop Time Status Last Admin Dose Admin Acetaminophen (Tylenol) 650 mg Q4H PRN RECTAL Mild Pain/Temp > 100.5 05/21/18 12:00 06/20/18 11:59 Amiodarone HCl 900 mg/Dextrose 500 ml @ 16.66 mls/ hr Q24H IV 05/27/18 21:00 05/28/18 20:59 05/27/18 21:42 Cefepime HCl 2 gm/ Dextrose 55 ml @ 110 mls/hr Q24H IVPB 05/25/18 13:00 06/01/18 12:59 05/27/18 17:00 Chlorhexidine Gluconate (Tatyana-Hex 2%) 1 applic DAILY@2000 TOPIC 05/12/18 20:00 06/11/18 19:59 05/27/18 20:11 Dextrose 1,000 ml @ 0 mls/hr Q24H PRN IV PN interrupted or unavailable 05/25/18 21:00 06/24/18 20:59 Dextrose (Dextrose 50%) 25 ml Q30M PRN IV Hypoglycemia 05/26/18 12:45 06/25/18 12:44 Dextrose (Dextrose 50%) 50 ml Q30M PRN IV Hypoglycemia 05/26/18 12:45 06/25/18 12:44 Fat Emulsion Intravenous 250 ml/Amino Acids/ Electrolytes/ Dextrose 2,050 ml @ 85.417 mls/ hr Q24H IV 05/26/18 21:00 06/25/18 20:59 05/27/18 21:45 Hydrocortisone (Solu-CORTEF) 50 mg EVERY 8 HOURS IV 05/26/18 14:00 06/20/18 21:59 05/28/18 06:21 Hydromorphone HCl (Dilaudid) 1 mg Q2H PRN IVP Severe Pain (Pain Scale 7-10) 05/24/18 09:45 05/29/18 09:44 05/26/18 02:56 Insulin Aspart (NovoLOG) EVERY 4 HOURS SUBQ 05/24/18 17:00 06/15/18 20:59 05/28/18 04:40 Insulin Aspart (NovoLOG) 10 units EVERY 4 HOURS SUBQ 05/27/18 09:00 06/25/18 12:59 05/28/18 04:41 Insulin Detemir (Levemir) 20 units Q12HR SUBQ 05/27/18 09:00 06/23/18 17:59 05/27/18 21:44 Levofloxacin 50 ml @ 50 mls/hr Q24H IVPB 05/25/18 13:00 06/01/18 12:59 05/27/18 17:00 Metronidazole 100 ml @ 100 mls/hr Q8HR IVPB 05/25/18 14:00 06/01/18 13:59 05/28/18 06:21 Micafungin Sodium 100 mg/Sodium Chloride 110 ml @ 110 mls/hr Q24H IVPB 05/21/18 12:00 05/28/18 11:59 05/27/18 17:00 Norepinephrine Bitartrate 8 mg/ Dextrose 500 ml @ 0 mls/hr Q24H IV 05/21/18 14:30 06/20/18 14:29 05/27/18 14:30 Ondansetron HCl (Zofran) 4 mg Q6H PRN IVP Nausea & Vomiting 05/15/18 23:30 06/14/18 23:29 Pantoprazole (Protonix) 40 mg EVERY 12 HOURS IVP 05/12/18 21:00 06/10/18 20:59 05/27/18 20:11 Phytonadione (Vitamin K) 10 mg ONCE A WEEK SUBQ 05/25/18 21:00 06/24/18 20:59 05/25/18 20:30 Vasopressin 100 units/Sodium Chloride 100 ml @ 0 mls/hr Q24H IV 05/22/18 11:30 06/21/18 11:29 05/23/18 17:47 Item Value Date Time Bedside Blood Glucose 168 mg/dl H 05/28/18 0441 Bedside Blood Glucose 146 mg/dl H 05/28/18 0102 Bedside Blood Glucose 100 mg/dl 05/27/18 2144 Bedside Blood Glucose 117 mg/dl 05/27/18 1700 Bedside Blood Glucose 186 mg/dl H 05/27/18 1300 Bedside Blood Glucose 186 mg/dl H 05/27/18 1009 Rashad Koenig MD May 28, 2018 06:37
--- NOTE | 2018-05-28 06:49 | NUR ---
RESPIRATORY NOTE: received pt on current vent settings; intubated with ett 8.5 placed at 24cm at the lip. vent is plugged into red outlet with ambu at bedside. alarms are on and audible.will cont to monitor.
[2018-05-28 07:03] LABS: HEMATOCRIT 26.2 % (42.0-52.0); HEMOGLOBIN 9.2 G/DL (14.2-18.0); MEAN CORPUSCULAR VOLUME 85 FL (80-99); PLATELET COUNT 88 K/UL (150-450); RED BLOOD COUNT 3.09 M/UL (4.70-6.10); RED CELL DISTRIBUTION WIDTH 15.5 % (11.6-14.8); WHITE BLOOD COUNT 14.4 K/UL (4.8-10.8)
[2018-05-28 07:12] LABS: ALANINE AMINOTRANSFERASE 11 U/L (12-78); ALBUMIN 0.7 G/DL (3.4-5.0); ALBUMIN/GLOBULIN RATIO 0.2 (1.0-2.7); ALKALINE PHOSPHATASE 102 U/L (46-116); ANION GAP 14 mmol/L (5-15); ASPARTATE AMINO TRANSFERASE 30 U/L (15-37); BILIRUBIN,TOTAL 0.4 MG/DL (0.2-1.0); BLOOD UREA NITROGEN 83 mg/dL (7-18); CARBON DIOXIDE 21 MMOL/L (21-32); CHLORIDE 94 MMOL/L (98-107); CREATININE 4.9 MG/DL (0.55-1.30); PHOSPHORUS 4.7 MG/DL (2.5-4.9); POTASSIUM 3.1 MMOL/L (3.5-5.1); SODIUM 129 MMOL/L (136-145)
--- NOTE | 2018-05-28 07:15 | NUR ---
NURSE NOTES: Received report from Kandice AGUILA. Patient resting in bed. Opens eyes spontaneously. Follows simple commands, brisk 3mm pupils bilateral. Patient is on ventilator AC 16, 500tv, FiO2 of 50% and peep of 5. ETT 8.5, 22cm at the lip. abdomen tender, round. bowel sounds absent. 2 VELVET drains w/ serosanguineous fluid. Abdomen is covered with dressing. OGT in place, connected to intermittent suction draining straw colored fluid. Hastings cath with no drainage at this time. Patient does have a L subclavian TLC and a R femoral Donis catheter for HD access with a pigtail for IV access. Patient is on Amiodarone gtt at 0.5mg, TPN at 85.417ml/hr. SCDs on. Contact isolation in place. Will continue to monitor.
[2018-05-28] MEDS: Pantoprazole Inj IVP SCH ×2 (08:21→15:23)
[2018-05-28] MEDS: Levemir Flexpen SUBQ SCH ×2 (08:26→20:43)
--- NOTE | 2018-05-28 08:51 | General Progress Note ---
Assessment/Plan Assessment/Plan (1) Abdominal pain (2) S/p Lap Cholecystectomy (3) Encephalopathy /septic shock (4) ESRD on hemodialysis (5) S/p emergent exploratory laboratory small bowel resection omentectomy due to small bowel perforation in distal ileum Patient to be continued on Dilaudid and Tylenol. Parameters to be continued. D/w Dr. Busby and he concurred. Subjective Date patient seen: May 28, 2018 Time patient seen: 08:00 - am Allergies: Coded Allergies: No Known Allergies (Unverified , 11/12/12) Subjective Patient is in bed and intubated on vent. Showing no signs of pain at this time. 2 doses of Dilaudid as been given to patient and d/w nurse. Objective Last 24 Hour Vital Signs Date Time Temp Pulse Resp B/P (MAP) Pulse Ox O2 Delivery O2 Flow Rate FiO2 05/28/18 06:47 78 30 30 05/28/18 06:00 99.5 77 28 92/40 (57) 100 05/28/18 05:54 85 31 40 05/28/18 05:30 77 29 109/53 (71) 100 05/28/18 05:00 78 29 97/44 (61) 100 05/28/18 04:00 35 05/28/18 04:00 85 05/28/18 04:00 100.0 87 30 103/46 (65) 100 05/28/18 04:00 Mechanical Ventilator Mechanical Ventilator 05/28/18 03:30 84 30 118/44 (68) 100 05/28/18 03:00 83 30 97/39 (58) 100 05/28/18 02:56 77 30 40 05/28/18 02:30 79 30 103/56 (72) 100 05/28/18 02:00 82 30 94/28 (50) 100 05/28/18 01:30 78 30 97/39 (58) 100 05/28/18 01:02 82 26 40 05/28/18 01:00 101.0 83 30 97/39 (58) 100 05/28/18 00:30 71 28 86/32 (50) 100 05/28/18 00:00 82 30 105/40 (61) 100 05/28/18 00:00 81 05/28/18 00:00 Mechanical Ventilator Mechanical Ventilator 05/28/18 00:00 35 05/27/18 23:30 80 31 101/40 (60) 100 05/27/18 23:00 82 30 118/50 (72) 100 05/27/18 22:55 81 29 40 05/27/18 22:30 76 29 95/59 (71) 100 05/27/18 22:00 75 30 121/35 (63) 100 05/27/18 21:30 79 31 105/38 (60) 100 05/27/18 21:00 74 29 97/40 (59) 100 05/27/18 20:57 72 28 40 05/27/18 20:30 72 29 105/38 (60) 100 05/27/18 20:10 71 30 50 05/27/18 20:00 98.8 72 29 99/46 (63) 100 05/27/18 20:00 Mechanical Ventilator Mechanical Ventilator 05/27/18 20:00 71 05/27/18 20:00 40 05/27/18 19:30 72 30 85/46 (59) 100 05/27/18 19:00 71 28 86/32 (50) 100 05/27/18 18:30 71 28 81/32 (48) 100 05/27/18 18:00 73 26 107/36 (59) 99 05/27/18 17:46 67 15 100 05/27/18 17:30 71 25 45 05/27/18 17:30 76 25 101/33 (55) 100 05/27/18 17:00 73 25 96/27 (50) 92 05/27/18 16:00 Mechanical Ventilator Mechanical Ventilator 05/27/18 16:00 50 05/27/18 14:30 111/47 05/27/18 14:00 87 28 140/63 (88) 100 05/27/18 13:30 86 28 130/58 (82) 100 05/27/18 13:10 85 34 45 05/27/18 13:00 98.8 86 28 130/58 (82) 100 05/27/18 13:00 130/58 05/27/18 12:30 111/75 05/27/18 12:30 79 28 111/75 (87) 100 05/27/18 12:00 Mechanical Ventilator Mechanical Ventilator 05/27/18 12:00 115/61 05/27/18 12:00 73 05/27/18 12:00 32 05/27/18 12:00 78 28 93/47 (62) 100 05/27/18 12:00 73 28 93/47 (62) 100 05/27/18 11:30 78 28 115/61 (79) 100 05/27/18 11:00 78 28 124/57 (79) 100 05/27/18 11:00 124/57 05/27/18 10:45 74 31 45 05/27/18 10:30 81 28 124/71 (88) 100 05/27/18 10:00 137/77 05/27/18 10:00 83 28 132/77 (95) 100 05/27/18 09:30 91 28 132/100 (111) 100 05/27/18 09:10 60 18 45 05/27/18 09:00 91/34 05/27/18 09:00 97.2 95 28 133/70 (91) 100 Intake and Output 05/27/18 05/28/18 18:59 06:59 Intake Total 365.00 ml 1671.1733 ml Output Total 2580 ml 1450 ml Balance -2215.00 ml 221.1733 ml IV Total 365.00 ml 1671.1733 ml Output Urine Total 0 ml 0 ml Gastric Drainage Total 500 ml 1300 ml Drainage Total 80 ml 150 ml Hemodialysis UF 2000 ml # Bowel Movements 2 1 Laboratory Tests 05/27/18 17:50: Sodium Level 134#L, Potassium Level 2.9L, Chloride Level 95L, Carbon Dioxide Level 23, Anion Gap 17H, Blood Urea Nitrogen 78H, Creatinine 4.7H, Estimat Glomerular Filtration Rate , Glucose Level 101#, Calcium Level 7.1L 05/28/18 05:35: Sodium Level 129L, Potassium Level 3.1L, Chloride Level 94L, Carbon Dioxide Level 21, Anion Gap 14, Blood Urea Nitrogen 83H, Creatinine 4.9H, Estimat Glomerular Filtration Rate , Glucose Level 167H, Calcium Level 7.0L, White Blood Count 14.4H, Red Blood Count 3.09L, Hemoglobin 9.2L, Hematocrit 26.2L, Mean Corpuscular Volume 85, Mean Corpuscular Hemoglobin 29.6, Mean Corpuscular Hemoglobin Concent 34.9, Red Cell Distribution Width 15.5H, Platelet Count 88L, Mean Platelet Volume 8.8, Neutrophils (%) (Auto) , Lymphocytes (%) (Auto) , Monocytes (%) (Auto) , Eosinophils (%) (Auto) , Basophils (%) (Auto) , Neutrophils % (Manual) [Pending], Lymphocytes % (Manual) [Pending], Platelet Estimate [Pending], Platelet Morphology [Pending], Uric Acid 6.2, Phosphorus Level 4.7, Magnesium Level 1.7L, Total Bilirubin 0.4, Aspartate Amino Transf ( AST/SGOT) 30, Alanine Aminotransferase (ALT/SGPT) 11L, Alkaline Phosphatase 102 , Pro-B-Type Natriuretic Peptide 72972I, Total Protein 3.8L, Albumin 0.7L, Globulin 3.1, Albumin/Globulin Ratio 0.2L Height (Feet): 5 Height (Inches): 5.00 Weight (Pounds): 185 Objective GENERAL: Intubated. LUNGS: Decreased breath sounds bilaterally. HEART: S1 S2 Regular. ABDOMEN: Bandages applied with drains noted. EXTREMITIES: No cyanosis. No clubbing. Sid Holland May 28, 2018 08:51
[2018-05-28] MEDS ORDERED: HYDROmorphone 1mg/ml Carpuject IVP PRN (08:52)
--- NOTE | 2018-05-28 10:55 | NUR ---
NURSE NOTES: MD HOLDER HERE TO SEE PT. NO NEW ORDERS
--- NOTE | 2018-05-28 10:55 | 48 Hour Post Anesthesia Eval ---
Post Anesthesia Evaluation Procedure: revision of small bowel anastamosis closure of abdominal wound Date of Evaluation: May 28, 2018 Time of Evaluation: 10:52 Blood Pressure Systolic: 94 0: 57 Pulse Rate: 84 Respiratory Rate: 20 Temperature (Fahrenheit): 98.6 O2 Sat by Pulse Oximetry: 98 Airway: other - intubated on vent Nausea: No Vomiting: No Pain Intensity: 1 Hydration Status: adequate Cardiopulmonary Status: off vasopressin 4mg of Levophed, stable, positive dynamics Mental Status/LOC: other - obtunded, reacts to stimuly Follow-up Care/Observations: n/a Post-Anesthesia Complications: none Follow-up care needed: N/A Jordy Sweeney MD May 28, 2018 10:55
--- NOTE | 2018-05-28 11:00 | Cardiac Electrophysiology PN ---
Assessment/Plan Assessment/Plan 1. Atrial fib/flutter with RVR In SR on Amio drip. Can't switch to po as NPO and unpredictable absorption in view of intestinal surgeries. Last Dig level 1.9 on 05/21/18 but off Dig. If develops atrial fib with RVR would digitalize again. 2. Chest pain. No NJ. EKG showed old inferior and anterior wall NJ, but no ischemia. ECHO normal LV function 3. End-stage renal disease, on hemodialysis per Dr. Arroyo. 4. Septic shock, back on Levophed today. 2D Echo EF 60% and PA pressure 63 ? PE. DD 35.2. Unstable for chest CT angio. Off heparin drip for surgery 5. History of kidney stones. 6. History of psychiatric problems, dementia. 7. Hx of lap matthew. S/P SB resection 05/15/18 with drain Has yellowish discharge from incision. On iv Abx per ID S/P redo surgery 05/23/18 that showed Anastomotic leak. S/P surgery again by DR Chandler 05/27/18 8. Respiratory failure, intubated on the vent. SAW RN Subjective Subjective In ICU on Amiodarone drip 0.5 mg and Levophed off since 6 am. Had surgery yesterday Off Heparin drip until OK with surgery. On the Vent. Objective Last 24 Hour Vital Signs Date Time Temp Pulse Resp B/P (MAP) Pulse Ox O2 Delivery O2 Flow Rate FiO2 05/28/18 10:55 81 31 30 05/28/18 10:55 84 20 98 05/28/18 09:12 70 26 30 05/28/18 06:47 78 30 30 05/28/18 06:00 99.5 77 28 92/40 (57) 100 05/28/18 05:54 85 31 40 05/28/18 05:30 77 29 109/53 (71) 100 05/28/18 05:00 78 29 97/44 (61) 100 05/28/18 04:00 35 05/28/18 04:00 85 05/28/18 04:00 100.0 87 30 103/46 (65) 100 05/28/18 04:00 Mechanical Ventilator Mechanical Ventilator 05/28/18 03:30 84 30 118/44 (68) 100 05/28/18 03:00 83 30 97/39 (58) 100 05/28/18 02:56 77 30 40 05/28/18 02:30 79 30 103/56 (72) 100 05/28/18 02:00 82 30 94/28 (50) 100 05/28/18 01:30 78 30 97/39 (58) 100 05/28/18 01:02 82 26 40 05/28/18 01:00 101.0 83 30 97/39 (58) 100 05/28/18 00:30 71 28 86/32 (50) 100 05/28/18 00:00 82 30 105/40 (61) 100 05/28/18 00:00 81 05/28/18 00:00 Mechanical Ventilator Mechanical Ventilator 05/28/18 00:00 35 05/27/18 23:30 80 31 101/40 (60) 100 05/27/18 23:00 82 30 118/50 (72) 100 05/27/18 22:55 81 29 40 05/27/18 22:30 76 29 95/59 (71) 100 05/27/18 22:00 75 30 121/35 (63) 100 05/27/18 21:30 79 31 105/38 (60) 100 05/27/18 21:00 74 29 97/40 (59) 100 05/27/18 20:57 72 28 40 05/27/18 20:30 72 29 105/38 (60) 100 05/27/18 20:10 71 30 50 05/27/18 20:00 98.8 72 29 99/46 (63) 100 05/27/18 20:00 Mechanical Ventilator Mechanical Ventilator 05/27/18 20:00 71 05/27/18 20:00 40 05/27/18 19:30 72 30 85/46 (59) 100 05/27/18 19:00 71 28 86/32 (50) 100 05/27/18 18:30 71 28 81/32 (48) 100 05/27/18 18:00 73 26 107/36 (59) 99 05/27/18 17:46 67 15 100 05/27/18 17:30 71 25 45 05/27/18 17:30 76 25 101/33 (55) 100 05/27/18 17:00 73 25 96/27 (50) 92 05/27/18 16:00 Mechanical Ventilator Mechanical Ventilator 05/27/18 16:00 50 05/27/18 14:30 111/47 05/27/18 14:00 87 28 140/63 (88) 100 05/27/18 13:30 86 28 130/58 (82) 100 05/27/18 13:10 85 34 45 05/27/18 13:00 98.8 86 28 130/58 (82) 100 05/27/18 13:00 130/58 05/27/18 12:30 111/75 05/27/18 12:30 79 28 111/75 (87) 100 05/27/18 12:00 Mechanical Ventilator Mechanical Ventilator 05/27/18 12:00 115/61 05/27/18 12:00 73 05/27/18 12:00 32 05/27/18 12:00 78 28 93/47 (62) 100 05/27/18 12:00 73 28 93/47 (62) 100 05/27/18 11:30 78 28 115/61 (79) 100 05/27/18 11:00 78 28 124/57 (79) 100 05/27/18 11:00 124/57 Intake and Output 05/27/18 05/28/18 18:59 06:59 Intake Total 365.00 ml 1671.1733 ml Output Total 2580 ml 1450 ml Balance -2215.00 ml 221.1733 ml IV Total 365.00 ml 1671.1733 ml Output Urine Total 0 ml 0 ml Gastric Drainage Total 500 ml 1300 ml Drainage Total 80 ml 150 ml Hemodialysis UF 2000 ml # Bowel Movements 2 1 Laboratory Tests Test 05/27/18 17:50 05/28/18 05:35 Sodium Level 134 MMOL/L (136-145) #L 129 MMOL/L (136-145) L Potassium Level 2.9 MMOL/L (3.5-5.1) L 3.1 MMOL/L (3.5-5.1) L Chloride Level 95 MMOL/L (98-107) L 94 MMOL/L (98-107) L Carbon Dioxide Level 23 MMOL/L (21-32) 21 MMOL/L (21-32) Anion Gap 17 mmol/L (5-15) H 14 mmol/L (5-15) Blood Urea Nitrogen 78 mg/dL (7-18) H 83 mg/dL (7-18) H Creatinine 4.7 MG/DL (0.55-1.30) H 4.9 MG/DL (0.55-1.30) H Estimat Glomerular Filtration Rate mL/min (>60) mL/min (>60) Glucose Level 101 MG/DL (74-106) # 167 MG/DL (74-106) H Calcium Level 7.1 MG/DL (8.5-10.1) L 7.0 MG/DL (8.5-10.1) L White Blood Count 14.4 K/UL (4.8-10.8) H Red Blood Count 3.09 M/UL (4.70-6.10) L Hemoglobin 9.2 G/DL (14.2-18.0) L Hematocrit 26.2 % (42.0-52.0) L Mean Corpuscular Volume 85 FL (80-99) Mean Corpuscular Hemoglobin 29.6 PG (27.0-31.0) Mean Corpuscular Hemoglobin Concent 34.9 G/DL (32.0-36.0) Red Cell Distribution Width 15.5 % (11.6-14.8) H Platelet Count 88 K/UL (150-450) L Mean Platelet Volume 8.8 FL (6.5-10.1) Neutrophils (%) (Auto) % (45.0-75.0) Lymphocytes (%) (Auto) % (20.0-45.0) Monocytes (%) (Auto) % (1.0-10.0) Eosinophils (%) (Auto) % (0.0-3.0) Basophils (%) (Auto) % (0.0-2.0) Differential Total Cells Counted 100 Neutrophils % (Manual) 90 % (45-75) H Lymphocytes % (Manual) 1 % (20-45) L Monocytes % (Manual) 6 % (1-10) Eosinophils % (Manual) 0 % (0-3) Basophils % (Manual) 0 % (0-2) Band Neutrophils 3 % (0-8) Nucleated Red Blood Cells 1 /100 WBC Platelet Estimate Decreased L Platelet Morphology Normal Hypochromasia 2+ Anisocytosis 1+ Spherocytes 2+ Uric Acid 6.2 MG/DL (2.6-7.2) Phosphorus Level 4.7 MG/DL (2.5-4.9) Magnesium Level 1.7 MG/DL (1.8-2.4) L Total Bilirubin 0.4 MG/DL (0.2-1.0) Aspartate Amino Transf (AST/SGOT) 30 U/L (15-37) Alanine Aminotransferase (ALT/SGPT) 11 U/L (12-78) L Alkaline Phosphatase 102 U/L (46-116) Pro-B-Type Natriuretic Peptide 06031 pg/mL (0-125) H Total Protein 3.8 G/DL (6.4-8.2) L Albumin 0.7 G/DL (3.4-5.0) L Globulin 3.1 g/dL Albumin/Globulin Ratio 0.2 (1.0-2.7) L Objective HEENT: Orally intubated Cardiovascular: Sinus tachycardia Respiratory/Chest: Coarse rhonchi Abdomen: Post op with 2 VELVET drain and WoundVac Extremities: No edema. Right groin dialysis catheter Everett Stephenson MD May 28, 2018 11:00
--- NOTE | 2018-05-28 11:00 | NUR ---
NURSE NOTES: MD RAE HERE TO SEE PT. RECEIVED ORDER TO INPUT 3%NACL 250ML ONCE.
[2018-05-28] MEDS: Vasopressin 100 UNITS in NS 95 ML IV SCH (11:30)
--- NOTE | 2018-05-28 12:10 | NUR ---
CASE MANAGEMENT: REVIEW SI: ESRD ON HD . ACS . A-FIB RIGHT FEMORAL TEMPORARY HEMODIALYSIS CATHETER INSERTION 05/13 T 98.7 HR 82 RR 27 BP 89/36 SAT 100% MECH VENT FIO2 40 WBC 14.4 H/H 9.2/26.2 NA 129 IS: TPN IV Q24HR DIFLUCAN IV Q24HR AMIODARONE IV Q24HR CEFEPIME IV Q24HR LEVOFLOXACIN IV Q24HR VASOPRESSIN IV Q24HR LEVOPHED IV Q24HR ICU STATUS DCP: PATIENT IS FROM HOME PLAN: WEANING DETERMINATION
--- NOTE | 2018-05-28 12:25 | NUR ---
NURSE NOTES: MD DE LUNA HERE TO SE PT. MILKED VELVET DRAINS; LT 150ML, RT 50ML SEROSANGUINEOUS FLUID. NO NEW ORDERS.
--- NOTE | 2018-05-28 12:56 | NUR ---
NURSE NOTES: PATIENT CLEANED AND REPOSITIONED. MEDIUM BM, GREEN MUCOID, THICK. Temperature is 98.7F, AXILLARY, PATIENT REMAINS ON AMIODARONE 0.5mcg/KG/HR. WILL CONTINUE TO MONITOR PT.
--- NOTE | 2018-05-28 13:02 | Cardiology Report ---
APPROVED REPORT EXAM: Two-dimensional and M-mode echocardiogram with Doppler and color Doppler. INDICATION Left Ventricular Function M-Mode DIMENSIONS Left Atrium (MM)3.3 (1.6-4.0cm) Aortic Root3.6 (2.0-3.7cm) Aortic Cusp Exc.2.0 (1.5-2.0cm) Technically difficult and limited study due to patient on ventilator. Study quality precludes accurate assessment of regional wall motion. M-mode measurements of left ventricle not obtainable due to cardiac position (angle). Normal left ventricular chamber size, hyperdynamic systolic function and wall motion to extent visualized. Left ventricular ejection fraction estimated to be 70-75%. There appears to be no evidence of left ventricular hypertrophy. Anterior Echo-free space, may be due to pericardial fat or effusion. All other cardiac chamber sizes are within normal limits. Mild focal aortic valve sclerosis with adequate cusp excursion. Mildly thickened mitral valve leaflets with normal excursion. Mild mitral annulus and aortic root calcification. Pulmonic valve not visualized. Normal tricuspid valve structure. IVC dilated at 2.2 cm with physiological collapse, suggestive of increased RA pressure. A color flow and spectral Doppler study was performed and revealed: No aortic insufficiency. Moderate mitral regurgitation. Mitral diastolic velocities suggest mild left ventricular diastolic dysfunction (Grade I). Mild tricuspid regurgitation. Tricuspid systolic velocities suggests peak right ventricular systolic pressure of 63 mmHg, consistent with severe pulmonary hypertension.
--- NOTE | 2018-05-28 13:26 | General Progress Note ---
Progress Note Progress Note off pressors alert this AM drains with serosang ng tube with gastric contents wound c/d/i labs noted. cont current care Tomas Chandler May 28, 2018 13:25
--- NOTE | 2018-05-28 13:36 | Nephrology Progress Note ---
Assessment/Plan Problem List: (1) ESRD (end stage renal disease) on dialysis (2) Perforated bowel (3) Hyponatremia (4) Major depression (5) Nausea & vomiting (6) H/O abdominal surgery Assessment: recent (7) Shock Assessment recent abdominal surgery hemodynamically stablized over night Presents with CHF and Low Na ESRD ACS DM HTN h/o GI bleed Depression Plan Need pressors periodically on TPN- adjust Na and K and Mag in TPN HD next 05/29 - transfused 2 units- started TPN per Dr Clarke request on steroids vented insulin for high BS hold dig , check levels, resume as needed no NGT ,On Vent Psych started Zoloft PO ? Will DC ZOLOFT. Has abd surgery 05/15 Perforated bowel graft clotted , has a femoral felice right HOLD ALL MIND ALTERING MEDS - DC all po meds FLUID CHALLENGE pressors as needed BP HR Pain control discussed with RN and Dr Jones IV protonix Subjective ROS Limited/Unobtainable: Yes Objective Objective Last 24 Hour Vital Signs Date Time Temp Pulse Resp B/P (MAP) Pulse Ox O2 Delivery O2 Flow Rate FiO2 05/28/18 13:21 83 30 30 05/28/18 12:00 70 05/28/18 12:00 Mechanical Ventilator Mechanical Ventilator 05/28/18 12:00 30 05/28/18 10:55 81 31 30 05/28/18 10:55 84 20 98 05/28/18 09:12 70 26 30 05/28/18 09:00 80 26 94/43 (60) 100 05/28/18 08:00 81 05/28/18 08:00 Mechanical Ventilator Mechanical Ventilator 05/28/18 08:00 77 27 101/46 (64) 100 05/28/18 08:00 30 05/28/18 07:00 98.7 82 27 89/36 (53) 100 05/28/18 06:47 78 30 30 05/28/18 06:00 99.5 77 28 92/40 (57) 100 05/28/18 05:54 85 31 40 05/28/18 05:30 77 29 109/53 (71) 100 05/28/18 05:00 78 29 97/44 (61) 100 05/28/18 04:00 35 05/28/18 04:00 85 05/28/18 04:00 100.0 87 30 103/46 (65) 100 05/28/18 04:00 Mechanical Ventilator Mechanical Ventilator 05/28/18 03:30 84 30 118/44 (68) 100 05/28/18 03:00 83 30 97/39 (58) 100 05/28/18 02:56 77 30 40 05/28/18 02:30 79 30 103/56 (72) 100 05/28/18 02:00 82 30 94/28 (50) 100 05/28/18 01:30 78 30 97/39 (58) 100 05/28/18 01:02 82 26 40 05/28/18 01:00 101.0 83 30 97/39 (58) 100 05/28/18 00:30 71 28 86/32 (50) 100 05/28/18 00:00 82 30 105/40 (61) 100 05/28/18 00:00 81 05/28/18 00:00 Mechanical Ventilator Mechanical Ventilator 05/28/18 00:00 35 05/27/18 23:30 80 31 101/40 (60) 100 05/27/18 23:00 82 30 118/50 (72) 100 05/27/18 22:55 81 29 40 05/27/18 22:30 76 29 95/59 (71) 100 05/27/18 22:00 75 30 121/35 (63) 100 05/27/18 21:30 79 31 105/38 (60) 100 05/27/18 21:00 74 29 97/40 (59) 100 05/27/18 20:57 72 28 40 05/27/18 20:30 72 29 105/38 (60) 100 05/27/18 20:10 71 30 50 05/27/18 20:00 98.8 72 29 99/46 (63) 100 05/27/18 20:00 Mechanical Ventilator Mechanical Ventilator 05/27/18 20:00 71 05/27/18 20:00 40 05/27/18 19:30 72 30 85/46 (59) 100 05/27/18 19:00 71 28 86/32 (50) 100 05/27/18 18:30 71 28 81/32 (48) 100 05/27/18 18:00 73 26 107/36 (59) 99 05/27/18 17:46 67 15 100 05/27/18 17:30 71 25 45 05/27/18 17:30 76 25 101/33 (55) 100 05/27/18 17:00 73 25 96/27 (50) 92 05/27/18 16:00 Mechanical Ventilator Mechanical Ventilator 05/27/18 16:00 50 05/27/18 14:30 111/47 05/27/18 14:00 87 28 140/63 (88) 100 Intake and Output 05/27/18 05/28/18 19:00 07:00 Intake Total 342.50 ml 1659.9233 ml Output Total 2580 ml 1460 ml Balance -2237.50 ml 199.9233 ml IV Total 342.50 ml 1659.9233 ml Output Urine Total 0 ml 10 ml Gastric Drainage Total 500 ml 1300 ml Drainage Total 80 ml 150 ml Hemodialysis UF 2000 ml # Bowel Movements 2 1 Laboratory Tests 05/27/18 17:50: Sodium Level 134#L, Potassium Level 2.9L, Chloride Level 95L, Carbon Dioxide Level 23, Anion Gap 17H, Blood Urea Nitrogen 78H, Creatinine 4.7H, Estimat Glomerular Filtration Rate , Glucose Level 101#, Calcium Level 7.1L 05/28/18 05:35: Sodium Level 129L, Potassium Level 3.1L, Chloride Level 94L, Carbon Dioxide Level 21, Anion Gap 14, Blood Urea Nitrogen 83H, Creatinine 4.9H, Estimat Glomerular Filtration Rate , Glucose Level 167H, Calcium Level 7.0L, White Blood Count 14.4H, Red Blood Count 3.09L, Hemoglobin 9.2L, Hematocrit 26.2L, Mean Corpuscular Volume 85, Mean Corpuscular Hemoglobin 29.6, Mean Corpuscular Hemoglobin Concent 34.9, Red Cell Distribution Width 15.5H, Platelet Count 88L, Mean Platelet Volume 8.8, Neutrophils (%) (Auto) , Lymphocytes (%) (Auto) , Monocytes (%) (Auto) , Eosinophils (%) (Auto) , Basophils (%) (Auto) , Differential Total Cells Counted 100, Neutrophils % (Manual) 90H, Lymphocytes % (Manual) 1L, Monocytes % (Manual) 6, Eosinophils % (Manual) 0, Basophils % ( Manual) 0, Band Neutrophils 3, Nucleated Red Blood Cells 1, Platelet Estimate DecreasedL, Platelet Morphology Normal, Hypochromasia 2+, Anisocytosis 1+, Spherocytes 2+, Uric Acid 6.2, Phosphorus Level 4.7, Magnesium Level 1.7L, Total Bilirubin 0.4, Aspartate Amino Transf (AST/SGOT) 30, Alanine Aminotransferase (ALT/SGPT) 11L, Alkaline Phosphatase 102, Pro-B-Type Natriuretic Peptide 08234N, Total Protein 3.8L, Albumin 0.7L, Globulin 3.1, Albumin/Globulin Ratio 0.2L Height (Feet): 5 Height (Inches): 5.00 Weight (Pounds): 190 General Appearance: no apparent distress EENT: other - on Vent Cardiovascular: normal rate Respiratory/Chest: decreased breath sounds Abdomen: distended Objective no change Maurilio Arroyo MD May 28, 2018 13:36
[2018-05-28] MEDS ORDERED: NaCl 3% 500ml 250 ML IV SCH (14:00)
--- NOTE | 2018-05-28 14:25 | Infectious Diseases Prog Note ---
Assessment/Plan Assessment/Plan A: 1. serratia , Enterobacter sepsis with shock 2. VRE colonization 3. diabetes mellitus 4. hypertension 5. 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 leucocytosis 6. A fib with RVR 7. Small bowel perforation 8. Perioperative respiratory failure 9. Atelectasis versus Pneumonia 10 Peritonitis with Citrobacter & Serratia 11. sepsis, septic shock 12. Lactic acidosis 13. Anemia 14. Anastomosis leak 15. Hypokalemia P 1. continue Cefepime , Flagyl & Levaquin, add Fluconazole 2.Continue TPN Subjective ROS Limited/Unobtainable: Yes Constitutional: Reports: no symptoms Cardiovascular: Reports: other - off pressor today Gastrointestinal/Abdominal: Reports: other - had more surgeries yesterday with Right hemicolectomy, omentectomy & removal of wound-vac Allergies: Coded Allergies: No Known Allergies (Unverified , 11/12/12) Objective Vital Signs Last 24 Hour Vital Signs Date Time Temp Pulse Resp B/P (MAP) Pulse Ox O2 Delivery O2 Flow Rate FiO2 05/28/18 13:21 83 30 30 05/28/18 12:00 70 05/28/18 12:00 Mechanical Ventilator Mechanical Ventilator 05/28/18 12:00 30 05/28/18 10:55 81 31 30 05/28/18 10:55 84 20 98 05/28/18 09:12 70 26 30 05/28/18 09:00 80 26 94/43 (60) 100 05/28/18 08:00 81 05/28/18 08:00 Mechanical Ventilator Mechanical Ventilator 05/28/18 08:00 77 27 101/46 (64) 100 05/28/18 08:00 30 05/28/18 07:00 98.7 82 27 89/36 (53) 100 05/28/18 06:47 78 30 30 05/28/18 06:00 99.5 77 28 92/40 (57) 100 05/28/18 05:54 85 31 40 05/28/18 05:30 77 29 109/53 (71) 100 05/28/18 05:00 78 29 97/44 (61) 100 05/28/18 04:00 35 05/28/18 04:00 85 05/28/18 04:00 100.0 87 30 103/46 (65) 100 05/28/18 04:00 Mechanical Ventilator Mechanical Ventilator 05/28/18 03:30 84 30 118/44 (68) 100 05/28/18 03:00 83 30 97/39 (58) 100 05/28/18 02:56 77 30 40 05/28/18 02:30 79 30 103/56 (72) 100 05/28/18 02:00 82 30 94/28 (50) 100 05/28/18 01:30 78 30 97/39 (58) 100 05/28/18 01:02 82 26 40 05/28/18 01:00 101.0 83 30 97/39 (58) 100 05/28/18 00:30 71 28 86/32 (50) 100 05/28/18 00:00 82 30 105/40 (61) 100 05/28/18 00:00 81 05/28/18 00:00 Mechanical Ventilator Mechanical Ventilator 05/28/18 00:00 35 05/27/18 23:30 80 31 101/40 (60) 100 05/27/18 23:00 82 30 118/50 (72) 100 05/27/18 22:55 81 29 40 05/27/18 22:30 76 29 95/59 (71) 100 05/27/18 22:00 75 30 121/35 (63) 100 05/27/18 21:30 79 31 105/38 (60) 100 05/27/18 21:00 74 29 97/40 (59) 100 05/27/18 20:57 72 28 40 05/27/18 20:30 72 29 105/38 (60) 100 05/27/18 20:10 71 30 50 05/27/18 20:00 98.8 72 29 99/46 (63) 100 05/27/18 20:00 Mechanical Ventilator Mechanical Ventilator 05/27/18 20:00 71 05/27/18 20:00 40 05/27/18 19:30 72 30 85/46 (59) 100 05/27/18 19:00 71 28 86/32 (50) 100 05/27/18 18:30 71 28 81/32 (48) 100 05/27/18 18:00 73 26 107/36 (59) 99 05/27/18 17:46 67 15 100 05/27/18 17:30 71 25 45 05/27/18 17:30 76 25 101/33 (55) 100 05/27/18 17:00 73 25 96/27 (50) 92 05/27/18 16:00 Mechanical Ventilator Mechanical Ventilator 05/27/18 16:00 50 05/27/18 14:30 111/47 Height (Feet): 5 Height (Inches): 5.00 Weight (Pounds): 190 HEENT: mucous membranes moist Respiratory/Chest: lungs clear, other - on ventilator Cardiovascular: normal rate, other - Central line & HD line Abdomen: other - Lower abdominal drains Extremities: other - edema of hands Neurologic/Psychiatric: responsive Laboratory Tests Test 05/27/18 17:50 05/28/18 05:35 Sodium Level 134 MMOL/L (136-145) #L 129 MMOL/L (136-145) L Potassium Level 2.9 MMOL/L (3.5-5.1) L 3.1 MMOL/L (3.5-5.1) L Chloride Level 95 MMOL/L (98-107) L 94 MMOL/L (98-107) L Carbon Dioxide Level 23 MMOL/L (21-32) 21 MMOL/L (21-32) Anion Gap 17 mmol/L (5-15) H 14 mmol/L (5-15) Blood Urea Nitrogen 78 mg/dL (7-18) H 83 mg/dL (7-18) H Creatinine 4.7 MG/DL (0.55-1.30) H 4.9 MG/DL (0.55-1.30) H Estimat Glomerular Filtration Rate mL/min (>60) mL/min (>60) Glucose Level 101 MG/DL (74-106) # 167 MG/DL (74-106) H Calcium Level 7.1 MG/DL (8.5-10.1) L 7.0 MG/DL (8.5-10.1) L White Blood Count 14.4 K/UL (4.8-10.8) H Red Blood Count 3.09 M/UL (4.70-6.10) L Hemoglobin 9.2 G/DL (14.2-18.0) L Hematocrit 26.2 % (42.0-52.0) L Mean Corpuscular Volume 85 FL (80-99) Mean Corpuscular Hemoglobin 29.6 PG (27.0-31.0) Mean Corpuscular Hemoglobin Concent 34.9 G/DL (32.0-36.0) Red Cell Distribution Width 15.5 % (11.6-14.8) H Platelet Count 88 K/UL (150-450) L Mean Platelet Volume 8.8 FL (6.5-10.1) Neutrophils (%) (Auto) % (45.0-75.0) Lymphocytes (%) (Auto) % (20.0-45.0) Monocytes (%) (Auto) % (1.0-10.0) Eosinophils (%) (Auto) % (0.0-3.0) Basophils (%) (Auto) % (0.0-2.0) Differential Total Cells Counted 100 Neutrophils % (Manual) 90 % (45-75) H Lymphocytes % (Manual) 1 % (20-45) L Monocytes % (Manual) 6 % (1-10) Eosinophils % (Manual) 0 % (0-3) Basophils % (Manual) 0 % (0-2) Band Neutrophils 3 % (0-8) Nucleated Red Blood Cells 1 /100 WBC Platelet Estimate Decreased L Platelet Morphology Normal Hypochromasia 2+ Anisocytosis 1+ Spherocytes 2+ Uric Acid 6.2 MG/DL (2.6-7.2) Phosphorus Level 4.7 MG/DL (2.5-4.9) Magnesium Level 1.7 MG/DL (1.8-2.4) L Total Bilirubin 0.4 MG/DL (0.2-1.0) Aspartate Amino Transf (AST/SGOT) 30 U/L (15-37) Alanine Aminotransferase (ALT/SGPT) 11 U/L (12-78) L Alkaline Phosphatase 102 U/L (46-116) C-Reactive Protein, Quantitative 13.4 mg/dL (0.00-0.90) H Pro-B-Type Natriuretic Peptide 66171 pg/mL (0-125) H Total Protein 3.8 G/DL (6.4-8.2) L Albumin 0.7 G/DL (3.4-5.0) L Globulin 3.1 g/dL Albumin/Globulin Ratio 0.2 (1.0-2.7) L Current Medications Medications (Trade) Dose Ordered Sig/Min Route PRN Reason Start Time Stop Time Status Last Admin Dose Admin Acetaminophen (Tylenol) 650 mg Q4H PRN RECTAL Mild Pain/Temp > 100.5 05/21/18 12:00 06/20/18 11:59 Amiodarone HCl 900 mg/Dextrose 500 ml @ 16.66 mls/ hr Q24H IV 05/27/18 21:00 05/28/18 20:59 05/27/18 21:42 Cefepime HCl 2 gm/ Dextrose 55 ml @ 110 mls/hr Q24H IVPB 05/25/18 13:00 06/01/18 12:59 05/27/18 17:00 Chlorhexidine Gluconate (Tatyana-Hex 2%) 1 applic DAILY@2000 TOPIC 05/12/18 20:00 06/11/18 19:59 05/27/18 20:11 Dextrose 1,000 ml @ 0 mls/hr Q24H PRN IV PN interrupted or unavailable 05/25/18 21:00 06/24/18 20:59 Dextrose (Dextrose 50%) 25 ml Q30M PRN IV Hypoglycemia 05/26/18 12:45 06/25/18 12:44 Dextrose (Dextrose 50%) 50 ml Q30M PRN IV Hypoglycemia 05/26/18 12:45 06/25/18 12:44 Fat Emulsion Intravenous 250 ml/Amino Acids/ Electrolytes/ Dextrose 2,050 ml @ 85.417 mls/ hr Q24H IV 05/26/18 21:00 05/28/18 19:59 05/27/18 21:45 Fat Emulsion Intravenous 250 ml/Amino Acids/ Electrolytes/ Dextrose 2,050 ml @ 85.417 mls/ hr Q24H IV 05/28/18 20:00 06/27/18 19:59 Hydrocortisone (Solu-CORTEF) 50 mg EVERY 8 HOURS IV 05/26/18 14:00 06/20/18 21:59 05/28/18 13:32 Hydromorphone HCl (Dilaudid) 1 mg Q2H PRN IVP Severe Pain (Pain Scale 7-10) 05/28/18 08:52 06/02/18 08:51 Insulin Aspart (NovoLOG) EVERY 4 HOURS SUBQ 05/24/18 17:00 06/15/18 20:59 05/28/18 13:39 Insulin Aspart (NovoLOG) 10 units EVERY 4 HOURS SUBQ 05/27/18 09:00 06/25/18 12:59 05/28/18 13:38 Insulin Detemir (Levemir) 20 units Q12HR SUBQ 05/27/18 09:00 06/23/18 17:59 05/28/18 08:26 Levofloxacin 50 ml @ 50 mls/hr Q24H IVPB 05/25/18 13:00 06/01/18 12:59 05/27/18 17:00 Metronidazole 100 ml @ 100 mls/hr Q8HR IVPB 05/25/18 14:00 06/01/18 13:59 05/28/18 06:21 Norepinephrine Bitartrate 8 mg/ Dextrose 500 ml @ 0 mls/hr Q24H IV 05/21/18 14:30 06/20/18 14:29 05/27/18 14:30 Ondansetron HCl (Zofran) 4 mg Q6H PRN IVP Nausea & Vomiting 05/15/18 23:30 06/14/18 23:29 Pantoprazole (Protonix) 40 mg EVERY 12 HOURS IVP 05/12/18 21:00 06/10/18 20:59 05/28/18 08:21 Phytonadione (Vitamin K) 10 mg ONCE A WEEK SUBQ 05/25/18 21:00 06/24/18 20:59 05/25/18 20:30 Sodium Chloride 250 ml @ 30 mls/hr ONCE IV 05/28/18 14:00 05/28/18 15:00 05/28/18 13:39 Vasopressin 100 units/Sodium Chloride 100 ml @ 0 mls/hr Q24H IV 05/22/18 11:30 06/21/18 11:29 05/23/18 17:47 Romie Hooks MD May 28, 2018 14:25
[2018-05-28] MEDS: Norepinephrine Bitartrate 8 MG in D5W 500ml 492 ML IV SCH (14:30)
[2018-05-28] MEDS: Cefepime HCl 2 GM in D5W 55 ML IVPB SCH (14:59)
--- NOTE | 2018-05-28 15:14 | NUR ---
NURSE NOTES: CALLED MD DE LUNA REGARDING SUDDEN CHANGE IN COLOR OF OGT FROM STRAW YELLOW TO BRIGHT RED. RECEIVED ORDER TO D/C SUCTION, PUSH PROTONIX X1 AND CHECK CBC IN AM.
--- NOTE | 2018-05-28 15:19 | Pulmonolgy Critical Care Note ---
Critical Care - Asmt/Plan Problems: (1) Shock (2) Hypoxemia (3) Elevated d-dimer Assessment & Plan: S/P neg CT-A + UE DVT (4) Hypotension (5) Atrial fibrillation (6) ESRD (end stage renal disease) on dialysis (7) ACS (acute coronary syndrome) (8) Sacral decubitus ulcer, stage III (9) S/P cholecystectomy (10) Serratia sepsis (11) S/P exploratory laparotomy (12) Perforated viscus (13) Thrombocythemia Assessment/Plan: -Off NE -Continue HC 50 TID and taper -Continue ventilatory support/settings reviewed -Titrate down FiO2 to keep SaO2 > 90%, continue PEEP 5 -SBT in am -HD per renal as able -Amio gtt per cards/EPS, off Dilt -[facility] held -Monitor platelets, F/U heme recs, cryo, FFP, FU DIC labs -Monitor CBC, transfuse as needed -Monitor for bleeding -Flucon, Levaquin, Flagyl and Cefepime per ID, F/U Cx's -F/U surgery recs -FC D/W RN and RT CCT 40 Critical Care - Objective Last 24 Hour Vital Signs Date Time Temp Pulse Resp B/P (MAP) Pulse Ox O2 Delivery O2 Flow Rate FiO2 05/28/18 13:21 83 30 30 05/28/18 12:00 70 05/28/18 12:00 Mechanical Ventilator Mechanical Ventilator 05/28/18 12:00 30 05/28/18 10:55 81 31 30 05/28/18 10:55 84 20 98 05/28/18 09:12 70 26 30 05/28/18 09:00 80 26 94/43 (60) 100 05/28/18 08:00 81 05/28/18 08:00 Mechanical Ventilator Mechanical Ventilator 05/28/18 08:00 77 27 101/46 (64) 100 05/28/18 08:00 30 05/28/18 07:00 98.7 82 27 89/36 (53) 100 05/28/18 06:47 78 30 30 05/28/18 06:00 99.5 77 28 92/40 (57) 100 05/28/18 05:54 85 31 40 05/28/18 05:30 77 29 109/53 (71) 100 05/28/18 05:00 78 29 97/44 (61) 100 05/28/18 04:00 35 05/28/18 04:00 85 05/28/18 04:00 100.0 87 30 103/46 (65) 100 05/28/18 04:00 Mechanical Ventilator Mechanical Ventilator 05/28/18 03:30 84 30 118/44 (68) 100 05/28/18 03:00 83 30 97/39 (58) 100 05/28/18 02:56 77 30 40 05/28/18 02:30 79 30 103/56 (72) 100 05/28/18 02:00 82 30 94/28 (50) 100 05/28/18 01:30 78 30 97/39 (58) 100 05/28/18 01:02 82 26 40 05/28/18 01:00 101.0 83 30 97/39 (58) 100 05/28/18 00:30 71 28 86/32 (50) 100 05/28/18 00:00 82 30 105/40 (61) 100 05/28/18 00:00 81 05/28/18 00:00 Mechanical Ventilator Mechanical Ventilator 05/28/18 00:00 35 05/27/18 23:30 80 31 101/40 (60) 100 05/27/18 23:00 82 30 118/50 (72) 100 05/27/18 22:55 81 29 40 05/27/18 22:30 76 29 95/59 (71) 100 05/27/18 22:00 75 30 121/35 (63) 100 05/27/18 21:30 79 31 105/38 (60) 100 05/27/18 21:00 74 29 97/40 (59) 100 05/27/18 20:57 72 28 40 05/27/18 20:30 72 29 105/38 (60) 100 05/27/18 20:10 71 30 50 05/27/18 20:00 98.8 72 29 99/46 (63) 100 05/27/18 20:00 Mechanical Ventilator Mechanical Ventilator 05/27/18 20:00 71 05/27/18 20:00 40 05/27/18 19:30 72 30 85/46 (59) 100 05/27/18 19:00 71 28 86/32 (50) 100 05/27/18 18:30 71 28 81/32 (48) 100 05/27/18 18:00 73 26 107/36 (59) 99 05/27/18 17:46 67 15 100 05/27/18 17:30 71 25 45 05/27/18 17:30 76 25 101/33 (55) 100 05/27/18 17:00 73 25 96/27 (50) 92 05/27/18 16:00 Mechanical Ventilator Mechanical Ventilator 05/27/18 16:00 50 Status: awake, other - intubated Condition: critical HEENT: atraumatic, normocephalic, other - ETT OGT Heart: HR/BP stable Abdomen: soft, non-tender, other - abdomen dressed + VELVET's Extremities: other - 1 + edema Decubiti: location - sacraum Accucheck: 159 Blood Sugars: BS controlled Critical Care - Subjective ROS Limited/Unobtainable: Yes ICU Day: 14 Intubation Day: 11 Interval Events: Take back to OR, wound closed, drains intact Tm 101 VSS off NE FiO2 25 stable on vent no sig secretions Opens eyes, responds to simple commands Remains on TPN Condition: improving IV Access: central EKG Rhythm: Sinus Rhythm FI02: 30 Vent Support Breath Rate: 16 Vent Support Mode: AC Vent Tidal Volume: 500 Sputum Amount: Scant PEEP: 5.0 PIP: 19 Fluids: SLIV Drips: AMIO Tube Feeding Amount: 0 I&O: Intake and Output 05/27/18 05/28/18 19:00 07:00 Intake Total 342.50 ml 1676.5833 ml Output Total 2580 ml 1460 ml Balance -2237.50 ml 216.5833 ml IV Total 342.50 ml 1676.5833 ml Output Urine Total 0 ml 10 ml Gastric Drainage Total 500 ml 1300 ml Drainage Total 80 ml 150 ml Hemodialysis UF 2000 ml # Bowel Movements 2 1 Subjective: CROW ET-Tube: 8.5 ET Position: 24 Labs: Laboratory Tests Test 05/27/18 17:50 05/28/18 05:35 Sodium Level 134 MMOL/L (136-145) #L 129 MMOL/L (136-145) L Potassium Level 2.9 MMOL/L (3.5-5.1) L 3.1 MMOL/L (3.5-5.1) L Chloride Level 95 MMOL/L (98-107) L 94 MMOL/L (98-107) L Carbon Dioxide Level 23 MMOL/L (21-32) 21 MMOL/L (21-32) Anion Gap 17 mmol/L (5-15) H 14 mmol/L (5-15) Blood Urea Nitrogen 78 mg/dL (7-18) H 83 mg/dL (7-18) H Creatinine 4.7 MG/DL (0.55-1.30) H 4.9 MG/DL (0.55-1.30) H Estimat Glomerular Filtration Rate mL/min (>60) mL/min (>60) Glucose Level 101 MG/DL (74-106) # 167 MG/DL (74-106) H Calcium Level 7.1 MG/DL (8.5-10.1) L 7.0 MG/DL (8.5-10.1) L White Blood Count 14.4 K/UL (4.8-10.8) H Red Blood Count 3.09 M/UL (4.70-6.10) L Hemoglobin 9.2 G/DL (14.2-18.0) L Hematocrit 26.2 % (42.0-52.0) L Mean Corpuscular Volume 85 FL (80-99) Mean Corpuscular Hemoglobin 29.6 PG (27.0-31.0) Mean Corpuscular Hemoglobin Concent 34.9 G/DL (32.0-36.0) Red Cell Distribution Width 15.5 % (11.6-14.8) H Platelet Count 88 K/UL (150-450) L Mean Platelet Volume 8.8 FL (6.5-10.1) Neutrophils (%) (Auto) % (45.0-75.0) Lymphocytes (%) (Auto) % (20.0-45.0) Monocytes (%) (Auto) % (1.0-10.0) Eosinophils (%) (Auto) % (0.0-3.0) Basophils (%) (Auto) % (0.0-2.0) Differential Total Cells Counted 100 Neutrophils % (Manual) 90 % (45-75) H Lymphocytes % (Manual) 1 % (20-45) L Monocytes % (Manual) 6 % (1-10) Eosinophils % (Manual) 0 % (0-3) Basophils % (Manual) 0 % (0-2) Band Neutrophils 3 % (0-8) Nucleated Red Blood Cells 1 /100 WBC Platelet Estimate Decreased L Platelet Morphology Normal Hypochromasia 2+ Anisocytosis 1+ Spherocytes 2+ Uric Acid 6.2 MG/DL (2.6-7.2) Phosphorus Level 4.7 MG/DL (2.5-4.9) Magnesium Level 1.7 MG/DL (1.8-2.4) L Total Bilirubin 0.4 MG/DL (0.2-1.0) Aspartate Amino Transf (AST/SGOT) 30 U/L (15-37) Alanine Aminotransferase (ALT/SGPT) 11 U/L (12-78) L Alkaline Phosphatase 102 U/L (46-116) C-Reactive Protein, Quantitative 13.4 mg/dL (0.00-0.90) H Pro-B-Type Natriuretic Peptide 93656 pg/mL (0-125) H Total Protein 3.8 G/DL (6.4-8.2) L Albumin 0.7 G/DL (3.4-5.0) L Globulin 3.1 g/dL Albumin/Globulin Ratio 0.2 (1.0-2.7) L Daryl Jones MD May 28, 2018 15:19
[2018-05-28] MEDS ORDERED: NS 275ml ONE (17:06)
[2018-05-28] MEDS ORDERED: Tubing IV Secondary IV ONE (17:06)
--- NOTE | 2018-05-28 17:26 | General Progress Note ---
Assessment/Plan Assessment/Plan # Anemia of chronic disease due to underlying chronic medical issues, multifactorial --> Anemia w/u has been reviewed, reordered and ferritin is >2000 --> Monitor for stability --> trend 10.3-->7.6-->8.9-->10.3-->9.5-->9.2 --> not bleeding currently # Thrombocytopenia due to septic shock --> vit K given for coagulopathy --> plt 163k-->116k-->83k # Small bowel perforation, s/p bowel resection, with Gram negative sepsis is on abx In ICU s/p Small bowel resection --> on broad spectrum abx --> on vanc/cefepime as per id--> now changed to zosyn, flagyl, micafungin --> s/p sb resection on 05/15, appreciate surg recs --> on 2 pressors as well,++ vent # Hypofibrinoginemia -- potentially cosumptive process given sepsis --> cryo given weeek of 05/23 --> FIBRINOGEN reordered # Lower extremity edema with an elevated BNP in a patient with renal failure on hemodialysis. --> on HD per Dr. Arroyo. --> currently has improved # Atrial fib w rvr/flutter, being seen by cards, has converted to sr --> Cardiology is following, appreciate recs, echo was reviewed --> Currently denies any chest pain, completely rule out ACS --> EKG showed old inferior and anterior wall OR, but no ischemia. 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 --> Nephro is following, appreciate recs. HD appeox 3x a week --> On intermittent HD # Respiratory failure on a vent, intubated The time of note does not necessarily reflect the time of encounter Greatly appreciate consultation! Subjective ROS Limited/Unobtainable: Yes Allergies: Coded Allergies: No Known Allergies (Unverified , 11/12/12) Subjective 05/12: Pt resting in bed. No acute events. H/H stable. On abx. VS stable. 05/13: on pressors, on hep gtt, on steriods, abx, got hd, felice catheter in place : CT-A was negative, hep gtt as per cards, abg reviewed, moaning on exam, on ceftriaxone 05/15 :Pt remains in ICU. Currently undergoing HD. Pt on 2 cardiac drips for elevated Bp. WBC remains elevated. H/H stable. 05/16: s/p sb resection, In ICU s/p Small bowel resection on Amiodarone and Levophed drip. HR around 100. 05/17: Orally intubated on Ac 16, Vt 500, P 5 fio2 30%. Pt continues NPO at this time. Right upper arm and right FA IV sites patent and intact at this time. Amio gtt running 05/18: Pt remains in ICU. Pt for STAT HD. WBC remains elevated, afebrile. 05/19: getting hd periodically, no other events, vent to be weaned, labs reviewed, on dilaudid, ativan and fentanyl per pulm 05/21: prognosis is more guarded, no events to report, no f/c, but on two pressors now, on hep gtt for antonio thrombosis, hd as well 3x/week 05/22: on 2 pressors, seen by cards, renal, ryan drain draining improved, still on vent, converted to sr, on amio gtt, lactic acid downtrending, minimally responsive, on heparin gtt as well for antonio thrombus 05/23: patient to go to OR ginette potential washout, ostomy, and line placement, fibrinogen low, needs cryoprecipirate, will also check inr/pt, cbc reviewed, electrolytes noted 05/24: Patient continues to be intubated on vent. He is s/p exploratory lap with wound washout and wound vac placement. 05/25: Pt is seen in the room, resting in bed. doing well since wound vac change , cbc reviewed, plt 163 05/26: Patient is is seen at bedside, intubated on vent. Wound vac still applied. No signs of pain at this time. Plt 116 . 1.7: again off pressors, plt somewhat lower, monitoring meds, on amio, antifungal as well, could be contributing, platelets and vitk given 05/28: had more surgeries yesterday with Right hemicolectomy, omentectomy & removal of wound-vac, off pressors, HD 05/29/18, on vent, stable Objective Last 24 Hour Vital Signs Date Time Temp Pulse Resp B/P (MAP) Pulse Ox O2 Delivery O2 Flow Rate FiO2 05/28/18 17:05 80 26 30 05/28/18 16:00 30 05/28/18 16:00 Mechanical Ventilator Mechanical Ventilator 05/28/18 14:58 73 20 30 05/28/18 13:21 83 30 30 05/28/18 12:00 70 05/28/18 12:00 Mechanical Ventilator Mechanical Ventilator 05/28/18 12:00 30 05/28/18 10:55 81 31 30 05/28/18 10:55 84 20 98 05/28/18 09:12 70 26 30 05/28/18 09:00 80 26 94/43 (60) 100 05/28/18 08:00 81 05/28/18 08:00 Mechanical Ventilator Mechanical Ventilator 05/28/18 08:00 77 27 101/46 (64) 100 05/28/18 08:00 30 05/28/18 07:00 98.7 82 27 89/36 (53) 100 05/28/18 06:47 78 30 30 05/28/18 06:00 99.5 77 28 92/40 (57) 100 05/28/18 05:54 85 31 40 05/28/18 05:30 77 29 109/53 (71) 100 05/28/18 05:00 78 29 97/44 (61) 100 05/28/18 04:00 35 05/28/18 04:00 85 05/28/18 04:00 100.0 87 30 103/46 (65) 100 05/28/18 04:00 Mechanical Ventilator Mechanical Ventilator 05/28/18 03:30 84 30 118/44 (68) 100 05/28/18 03:00 83 30 97/39 (58) 100 05/28/18 02:56 77 30 40 05/28/18 02:30 79 30 103/56 (72) 100 05/28/18 02:00 82 30 94/28 (50) 100 05/28/18 01:30 78 30 97/39 (58) 100 05/28/18 01:02 82 26 40 05/28/18 01:00 101.0 83 30 97/39 (58) 100 05/28/18 00:30 71 28 86/32 (50) 100 05/28/18 00:00 82 30 105/40 (61) 100 05/28/18 00:00 81 05/28/18 00:00 Mechanical Ventilator Mechanical Ventilator 05/28/18 00:00 35 05/27/18 23:30 80 31 101/40 (60) 100 05/27/18 23:00 82 30 118/50 (72) 100 05/27/18 22:55 81 29 40 05/27/18 22:30 76 29 95/59 (71) 100 05/27/18 22:00 75 30 121/35 (63) 100 05/27/18 21:30 79 31 105/38 (60) 100 05/27/18 21:00 74 29 97/40 (59) 100 05/27/18 20:57 72 28 40 05/27/18 20:30 72 29 105/38 (60) 100 05/27/18 20:10 71 30 50 05/27/18 20:00 98.8 72 29 99/46 (63) 100 05/27/18 20:00 Mechanical Ventilator Mechanical Ventilator 05/27/18 20:00 71 05/27/18 20:00 40 05/27/18 19:30 72 30 85/46 (59) 100 05/27/18 19:00 71 28 86/32 (50) 100 05/27/18 18:30 71 28 81/32 (48) 100 05/27/18 18:00 73 26 107/36 (59) 99 05/27/18 17:46 67 15 100 05/27/18 17:30 71 25 45 05/27/18 17:30 76 25 101/33 (55) 100 Intake and Output 05/27/18 05/28/18 19:00 07:00 Intake Total 342.50 ml 1676.5833 ml Output Total 2580 ml 1460 ml Balance -2237.50 ml 216.5833 ml IV Total 342.50 ml 1676.5833 ml Output Urine Total 0 ml 10 ml Gastric Drainage Total 500 ml 1300 ml Drainage Total 80 ml 150 ml Hemodialysis UF 2000 ml # Bowel Movements 2 1 Laboratory Tests 05/27/18 17:50: Sodium Level 134#L, Potassium Level 2.9L, Chloride Level 95L, Carbon Dioxide Level 23, Anion Gap 17H, Blood Urea Nitrogen 78H, Creatinine 4.7H, Estimat Glomerular Filtration Rate , Glucose Level 101#, Calcium Level 7.1L 05/28/18 05:35: Sodium Level 129L, Potassium Level 3.1L, Chloride Level 94L, Carbon Dioxide Level 21, Anion Gap 14, Blood Urea Nitrogen 83H, Creatinine 4.9H, Estimat Glomerular Filtration Rate , Glucose Level 167H, Calcium Level 7.0L, White Blood Count 14.4H, Red Blood Count 3.09L, Hemoglobin 9.2L, Hematocrit 26.2L, Mean Corpuscular Volume 85, Mean Corpuscular Hemoglobin 29.6, Mean Corpuscular Hemoglobin Concent 34.9, Red Cell Distribution Width 15.5H, Platelet Count 88L, Mean Platelet Volume 8.8, Neutrophils (%) (Auto) , Lymphocytes (%) (Auto) , Monocytes (%) (Auto) , Eosinophils (%) (Auto) , Basophils (%) (Auto) , Differential Total Cells Counted 100, Neutrophils % (Manual) 90H, Lymphocytes % (Manual) 1L, Monocytes % (Manual) 6, Eosinophils % (Manual) 0, Basophils % ( Manual) 0, Band Neutrophils 3, Nucleated Red Blood Cells 1, Platelet Estimate DecreasedL, Platelet Morphology Normal, Hypochromasia 2+, Anisocytosis 1+, Spherocytes 2+, Uric Acid 6.2, Phosphorus Level 4.7, Magnesium Level 1.7L, Total Bilirubin 0.4, Aspartate Amino Transf (AST/SGOT) 30, Alanine Aminotransferase (ALT/SGPT) 11L, Alkaline Phosphatase 102, C-Reactive Protein, Quantitative 13.4H, Pro-B-Type Natriuretic Peptide 92672T, Total Protein 3.8L, Albumin 0.7L, Globulin 3.1, Albumin/Globulin Ratio 0.2L Height (Feet): 5 Height (Inches): 5.00 Weight (Pounds): 190 Objective PHYSICAL EXAMINATION: VITAL SIGNS: Have been reviewed HEENT: PERRLA. vent++ NECK: Supple. No lymphadenopathy. CHEST: ++ intubated CARDIOVASCULAR: Tachycardic. GASTROINTESTINAL: Distended. Positive bowel sounds. Nontender. No organomegaly. ++ ryan drain in place EXTREMITY: 2+ edema. NEURO: responsive to simple command Reinaldo Leon MD May 28, 2018 17:26
--- NOTE | 2018-05-28 19:23 | NUR ---
HAND-OFF: Report given to Sukhjinder. pt in no acute distress.
--- NOTE | 2018-05-28 19:23 | NUR ---
NURSE NOTES: Called [facility] h.d for 05/29/18 H.D.
--- NOTE | 2018-05-28 19:30 | NUR ---
NURSE NOTES: Recvd.on a vent.orally intubated.See settings.Lungs few scatt.Rh.Diminished BS at bases.P.Ox-100%.See V/S.Scope 1'AVB.Amiodarone drip in progress at 0.5mg/min.to cont.per .Pos. chg.Suctioned.NS Lavaged.NPO.TPN infusion in progress.POST-OP Abd'l drsng.dry and intact.NEG.Bowel sound.F/Cath Patent.See I/O.
[2018-05-28] MEDS: Dyna-Hex 2% Top Sol 2oz TOPIC SCH (20:40)
--- NOTE | 2018-05-28 21:28 | General Progress Note ---
Assessment/Plan Problem List: (1) ACS (acute coronary syndrome) ICD Codes: I24.9 - Acute ischemic heart disease, unspecified SNOMED: 824881742 (2) ESRD (end stage renal disease) on dialysis ICD Codes: N18.6 - End stage renal disease; Z99.2 - Dependence on renal dialysis SNOMED: 517319377 (3) Depression ICD Codes: F32.9 - Major depressive disorder, single episode, unspecified SNOMED: 98120533 (4) Anemia ICD Codes: D64.9 - Anemia, unspecified SNOMED: 861894637 (5) Sacral decubitus ulcer, stage III ICD Codes: L89.153 - Pressure ulcer of sacral region, stage 3 SNOMED: 508397180, 930303345 (6) Major depression ICD Codes: F32.9 - Major depressive disorder, single episode, unspecified SNOMED: 546248007 (7) anxiety disorder (8) Atrial fibrillation ICD Codes: I48.91 - Unspecified atrial fibrillation SNOMED: 86927843 (9) Hypoxemia ICD Codes: R09.02 - Hypoxemia SNOMED: 140021873 (10) Hypotension ICD Codes: I95.9 - Hypotension, unspecified SNOMED: 78457189 (11) Shock ICD Codes: R57.9 - Shock, unspecified SNOMED: 26807341 (12) Elevated d-dimer ICD Codes: R79.89 - Other specified abnormal findings of blood chemistry SNOMED: 792461406 (13) encephalopathy due to metabolic factor Status: unchanged Assessment/Plan respiratory failure low bp not improving s/p washout of pus / multiple exploratory lap anemia critical condition in septic shock esrd on hd s/p septic shock arrythmia afebrile abx per id poor prognosis Subjective ROS Limited/Unobtainable: Yes Allergies: Coded Allergies: No Known Allergies (Unverified , 11/12/12) Objective Last 24 Hour Vital Signs Date Time Temp Pulse Resp B/P (MAP) Pulse Ox O2 Delivery O2 Flow Rate FiO2 05/28/18 19:45 74 22 30 05/28/18 18:52 80 17 130/92 (105) 100 05/28/18 17:05 80 26 30 05/28/18 17:00 79 25 143/74 (97) 100 05/28/18 16:00 64 05/28/18 16:00 99.0 75 25 150/89 (109) 100 05/28/18 16:00 30 05/28/18 16:00 Mechanical Ventilator Mechanical Ventilator 05/28/18 15:00 75 25 138/55 (82) 100 05/28/18 14:58 73 20 30 05/28/18 14:00 76 26 125/80 (95) 100 05/28/18 13:21 83 30 30 05/28/18 13:00 78 26 121/89 (100) 100 05/28/18 12:00 70 05/28/18 12:00 Mechanical Ventilator Mechanical Ventilator 05/28/18 12:00 98.9 79 24 105/63 (77) 100 05/28/18 12:00 30 05/28/18 11:00 82 23 134/75 (94) 100 05/28/18 10:55 81 31 30 05/28/18 10:55 84 20 98 05/28/18 10:00 73 24 98/46 (63) 100 05/28/18 09:12 70 26 30 05/28/18 09:00 80 26 94/43 (60) 100 05/28/18 08:00 81 05/28/18 08:00 Mechanical Ventilator Mechanical Ventilator 05/28/18 08:00 77 27 101/46 (64) 100 05/28/18 08:00 30 05/28/18 07:00 98.7 82 27 89/36 (53) 100 05/28/18 06:47 78 30 30 05/28/18 06:00 99.5 77 28 92/40 (57) 100 05/28/18 05:54 85 31 40 05/28/18 05:30 77 29 109/53 (71) 100 05/28/18 05:00 78 29 97/44 (61) 100 05/28/18 04:00 35 05/28/18 04:00 85 05/28/18 04:00 100.0 87 30 103/46 (65) 100 05/28/18 04:00 Mechanical Ventilator Mechanical Ventilator 05/28/18 03:30 84 30 118/44 (68) 100 05/28/18 03:00 83 30 97/39 (58) 100 05/28/18 02:56 77 30 40 05/28/18 02:30 79 30 103/56 (72) 100 05/28/18 02:00 82 30 94/28 (50) 100 05/28/18 01:30 78 30 97/39 (58) 100 05/28/18 01:02 82 26 40 05/28/18 01:00 101.0 83 30 97/39 (58) 100 05/28/18 00:30 71 28 86/32 (50) 100 05/28/18 00:00 82 30 105/40 (61) 100 05/28/18 00:00 81 05/28/18 00:00 Mechanical Ventilator Mechanical Ventilator 05/28/18 00:00 35 05/27/18 23:30 80 31 101/40 (60) 100 05/27/18 23:00 82 30 118/50 (72) 100 05/27/18 22:55 81 29 40 05/27/18 22:30 76 29 95/59 (71) 100 05/27/18 22:00 75 30 121/35 (63) 100 05/27/18 21:30 79 31 105/38 (60) 100 Intake and Output 05/27/18 05/28/18 18:59 06:59 Intake Total 365.00 ml 1671.1733 ml Output Total 2580 ml 1450 ml Balance -2215.00 ml 221.1733 ml IV Total 365.00 ml 1671.1733 ml Output Urine Total 0 ml 0 ml Gastric Drainage Total 500 ml 1300 ml Drainage Total 80 ml 150 ml Hemodialysis UF 2000 ml # Bowel Movements 2 1 Laboratory Tests 05/28/18 05:35: White Blood Count 14.4H, Red Blood Count 3.09L, Hemoglobin 9.2L, Hematocrit 26.2L, Mean Corpuscular Volume 85, Mean Corpuscular Hemoglobin 29.6, Mean Corpuscular Hemoglobin Concent 34.9, Red Cell Distribution Width 15.5H, Platelet Count 88L, Mean Platelet Volume 8.8, Neutrophils (%) (Auto) , Lymphocytes (%) (Auto) , Monocytes (%) (Auto) , Eosinophils (%) (Auto) , Basophils (%) (Auto) , Differential Total Cells Counted 100, Neutrophils % ( Manual) 90H, Lymphocytes % (Manual) 1L, Monocytes % (Manual) 6, Eosinophils % ( Manual) 0, Basophils % (Manual) 0, Band Neutrophils 3, Nucleated Red Blood Cells 1, Platelet Estimate DecreasedL, Platelet Morphology Normal, Hypochromasia 2+, Anisocytosis 1+, Spherocytes 2+, Sodium Level 129L, Potassium Level 3.1L, Chloride Level 94L, Carbon Dioxide Level 21, Anion Gap 14, Blood Urea Nitrogen 83H, Creatinine 4.9H, Estimat Glomerular Filtration Rate , Glucose Level 167H, Uric Acid 6.2, Calcium Level 7.0L, Phosphorus Level 4.7, Magnesium Level 1.7L, Total Bilirubin 0.4, Aspartate Amino Transf (AST/SGOT) 30 , Alanine Aminotransferase (ALT/SGPT) 11L, Alkaline Phosphatase 102, C-Reactive Protein, Quantitative 13.4H, Pro-B-Type Natriuretic Peptide 43869Y, Total Protein 3.8L, Albumin 0.7L, Globulin 3.1, Albumin/Globulin Ratio 0.2L Height (Feet): 5 Height (Inches): 5.00 Weight (Pounds): 190 General Appearance: lethargic, confused Abdomen: tender Samantha Head MD May 28, 2018 21:28
[2018-05-28] MEDS: TPN IV SCH (21:30)
[2018-05-28] MEDS: FAT EMULSION 20% IV SCH (21:30)
--- NOTE | 2018-05-28 22:30 | NUR ---
NURSE NOTES: HS Care done.Pos. chg.Suctioned.Due meds Admin.FSBS-123,covered.Cont.on TPN infusion.
[2018-05-28] MEDS ORDERED: Amiodarone 900 MG in D5W 500ml 482 ML IV SCH (23:00)
--- NOTE | 2018-05-28 23:23 | General Progress Note ---
Assessment/Plan Assessment/Plan Assessment - septic shock - abdominal infection - resp failure - renal failure - malnutrition Recommendation - supportive care - Abx - pressors - TPN per renal - follow labs - vent care - HD - guarded Subjective Allergies: Coded Allergies: No Known Allergies (Unverified , 11/12/12) Subjective above noted new abdominal dressing JPs noted non communicative Objective Last 24 Hour Vital Signs Date Time Temp Pulse Resp B/P (MAP) Pulse Ox O2 Delivery O2 Flow Rate FiO2 05/28/18 22:35 66 23 30 05/28/18 22:00 74 24 155/89 (111) 100 05/28/18 21:36 56 19 30 05/28/18 21:00 99.3 70 22 108/52 (70) 100 05/28/18 20:00 67 20 136/52 (80) 100 05/28/18 19:45 74 22 30 05/28/18 18:52 80 17 130/92 (105) 100 05/28/18 17:05 80 26 30 05/28/18 17:00 79 25 143/74 (97) 100 05/28/18 16:00 64 05/28/18 16:00 99.0 75 25 150/89 (109) 100 05/28/18 16:00 30 05/28/18 16:00 Mechanical Ventilator Mechanical Ventilator 05/28/18 15:00 75 25 138/55 (82) 100 05/28/18 14:58 73 20 30 05/28/18 14:00 76 26 125/80 (95) 100 05/28/18 13:21 83 30 30 05/28/18 13:00 78 26 121/89 (100) 100 05/28/18 12:00 70 05/28/18 12:00 Mechanical Ventilator Mechanical Ventilator 05/28/18 12:00 98.9 79 24 105/63 (77) 100 05/28/18 12:00 30 05/28/18 11:00 82 23 134/75 (94) 100 05/28/18 10:55 81 31 30 05/28/18 10:55 84 20 98 05/28/18 10:00 73 24 98/46 (63) 100 05/28/18 09:12 70 26 30 05/28/18 09:00 80 26 94/43 (60) 100 05/28/18 08:00 81 05/28/18 08:00 Mechanical Ventilator Mechanical Ventilator 05/28/18 08:00 77 27 101/46 (64) 100 05/28/18 08:00 30 05/28/18 07:00 98.7 82 27 89/36 (53) 100 05/28/18 06:47 78 30 30 05/28/18 06:00 99.5 77 28 92/40 (57) 100 05/28/18 05:54 85 31 40 05/28/18 05:30 77 29 109/53 (71) 100 05/28/18 05:00 78 29 97/44 (61) 100 05/28/18 04:00 35 05/28/18 04:00 85 05/28/18 04:00 100.0 87 30 103/46 (65) 100 05/28/18 04:00 Mechanical Ventilator Mechanical Ventilator 05/28/18 03:30 84 30 118/44 (68) 100 05/28/18 03:00 83 30 97/39 (58) 100 05/28/18 02:56 77 30 40 05/28/18 02:30 79 30 103/56 (72) 100 05/28/18 02:00 82 30 94/28 (50) 100 05/28/18 01:30 78 30 97/39 (58) 100 05/28/18 01:02 82 26 40 05/28/18 01:00 101.0 83 30 97/39 (58) 100 05/28/18 00:30 71 28 86/32 (50) 100 05/28/18 00:00 82 30 105/40 (61) 100 05/28/18 00:00 81 05/28/18 00:00 Mechanical Ventilator Mechanical Ventilator 05/28/18 00:00 35 05/27/18 23:30 80 31 101/40 (60) 100 Intake and Output 05/27/18 05/28/18 19:00 07:00 Intake Total 342.50 ml 1762.0003 ml Output Total 2580 ml 1460 ml Balance -2237.50 ml 302.0003 ml IV Total 342.50 ml 1762.0003 ml Output Urine Total 0 ml 10 ml Gastric Drainage Total 500 ml 1300 ml Drainage Total 80 ml 150 ml Hemodialysis UF 2000 ml # Bowel Movements 2 1 Laboratory Tests 05/28/18 05:35: White Blood Count 14.4H, Red Blood Count 3.09L, Hemoglobin 9.2L, Hematocrit 26.2L, Mean Corpuscular Volume 85, Mean Corpuscular Hemoglobin 29.6, Mean Corpuscular Hemoglobin Concent 34.9, Red Cell Distribution Width 15.5H, Platelet Count 88L, Mean Platelet Volume 8.8, Neutrophils (%) (Auto) , Lymphocytes (%) (Auto) , Monocytes (%) (Auto) , Eosinophils (%) (Auto) , Basophils (%) (Auto) , Differential Total Cells Counted 100, Neutrophils % ( Manual) 90H, Lymphocytes % (Manual) 1L, Monocytes % (Manual) 6, Eosinophils % ( Manual) 0, Basophils % (Manual) 0, Band Neutrophils 3, Nucleated Red Blood Cells 1, Platelet Estimate DecreasedL, Platelet Morphology Normal, Hypochromasia 2+, Anisocytosis 1+, Spherocytes 2+, Sodium Level 129L, Potassium Level 3.1L, Chloride Level 94L, Carbon Dioxide Level 21, Anion Gap 14, Blood Urea Nitrogen 83H, Creatinine 4.9H, Estimat Glomerular Filtration Rate , Glucose Level 167H, Uric Acid 6.2, Calcium Level 7.0L, Phosphorus Level 4.7, Magnesium Level 1.7L, Total Bilirubin 0.4, Aspartate Amino Transf (AST/SGOT) 30 , Alanine Aminotransferase (ALT/SGPT) 11L, Alkaline Phosphatase 102, C-Reactive Protein, Quantitative 13.4H, Pro-B-Type Natriuretic Peptide 09005Z, Total Protein 3.8L, Albumin 0.7L, Globulin 3.1, Albumin/Globulin Ratio 0.2L Height (Feet): 5 Height (Inches): 5.00 Weight (Pounds): 190 Objective Intubated NCAT ETT / OGT Supple Coarse BS RR abd more flat, (+) large dressing with VELVET x 2 no edema Lisa Jain MD May 28, 2018 23:23
[2018-05-29] VITALS (25 sets, daily range): BP systolic 64–165; BP diastolic 34–102
--- NOTE | 2018-05-29 00:10 | NUR ---
NURSE NOTES: Repositioned,Kept comfortable.Post-op.drsng.kept clean and dry.2 J.Rodriguez (L) and (R) abd'l side Kept compressed with serosanguinous drainage.Suctioned.Nolberto.Vent.settings.Neuro status same.
[2018-05-29] MEDS: NovoLOG Insulin Flexpen SUBQ SCH ×12 (00:32→21:18)
--- NOTE | 2018-05-29 02:00 | NUR ---
NURSE NOTES: Pos.chg.suctioned.No Distress.Cont.Ca Monitoring.WILLIAM intact(R) FEMO.[facility] for HD in am.
--- NOTE | 2018-05-29 04:10 | NUR ---
NURSE NOTES: Dahiana Kelly.Blood drawn for cbc/cmp/pt,ptt etc.spec.to lab.VSS.Scope rhythm same.Amio.drip at same rte.Nolberto.Vent settings.P.Ox-100%.See Latest FSBS.TPN infusion remain in progress.See I/O Min.For HD this am.
[2018-05-29] MEDS: Hydrocortisone 100mg Inj IV SCH ×3 (05:51→22:23)
--- NOTE | 2018-05-29 07:10 | NUR ---
RESPIRATORY NOTE: Received pt on ETT 8.5 @ 24cm lips line, secured by anchor fast, with current setting: AC 16-500ml-30% FiO2- peep of 5, saturates at 100%. Pt is tolerating well the vent setting. No SOB or acute resp distress noted. Alarms are set and audible, ambu bag is at bedside, vent is plugged into the red outlet. Will continue to monitor pt ans sxn as needed.
[2018-05-29 07:37] LABS: HEMATOCRIT 25.3 % (42.0-52.0); HEMOGLOBIN 8.6 G/DL (14.2-18.0); MEAN CORPUSCULAR VOLUME 87 FL (80-99); PLATELET COUNT 93 K/UL (150-450); RED BLOOD COUNT 2.92 M/UL (4.70-6.10); RED CELL DISTRIBUTION WIDTH 15.7 % (11.6-14.8); WHITE BLOOD COUNT 17.4 K/UL (4.8-10.8)
[2018-05-29 07:42] LABS: ALANINE AMINOTRANSFERASE 11 U/L (12-78); ALBUMIN 0.8 G/DL (3.4-5.0); ALBUMIN/GLOBULIN RATIO 0.2 (1.0-2.7); ALKALINE PHOSPHATASE 97 U/L (46-116); ANION GAP 18 mmol/L (5-15); ASPARTATE AMINO TRANSFERASE 23 U/L (15-37); BILIRUBIN,TOTAL 0.5 MG/DL (0.2-1.0); BLOOD UREA NITROGEN 96 mg/dL (7-18); CARBON DIOXIDE 20 MMOL/L (21-32); CHLORIDE 93 MMOL/L (98-107); CREATININE 5.2 MG/DL (0.55-1.30); POTASSIUM 2.8 MMOL/L (3.5-5.1); SODIUM 131 MMOL/L (136-145)
[2018-05-29 07:50] LABS: INR 1.2 (0.9-1.1)
[2018-05-29 08:00] LABS: AMMONIA < 10 umol/L (11-32)
[2018-05-29 08:24] LABS: PHOSPHORUS 5.3 MG/DL (2.5-4.9)
--- NOTE | 2018-05-29 08:27 | NUR ---
NURSE NOTES: MD MONGE, HERE TO SEE PT. AWAITING SURGEON OPTION ON STARTING T.F. NO NEW ORDER.
--- NOTE | 2018-05-29 08:35 | NUR ---
NURSE NOTES: civil cad tech here to do CXR
--- NOTE | 2018-05-29 09:02 | General Progress Note ---
Assessment/Plan Assessment/Plan (1) Abdominal pain (2) S/p Lap Cholecystectomy (3) Encephalopathy /septic shock (4) ESRD on hemodialysis (5) S/p emergent exploratory laboratory small bowel resection omentectomy due to small bowel perforation in distal ileum Patient to be continued on Dilaudid and Tylenol. Parameters to be continued. D/w Dr. Busby and he concurred. Subjective Date patient seen: May 29, 2018 Time patient seen: 08:45 - am Allergies: Coded Allergies: No Known Allergies (Unverified , 11/12/12) Subjective Patient is in bed and intubated on vent. No signs of pain or distress. No Dilaudid has been given to patient in the last 24hrs. Objective Last 24 Hour Vital Signs Date Time Temp Pulse Resp B/P (MAP) Pulse Ox O2 Delivery O2 Flow Rate FiO2 05/29/18 08:00 Mechanical Ventilator Mechanical Ventilator 05/29/18 08:00 30 05/29/18 07:10 66 21 30 05/29/18 06:00 68 21 145/98 (114) 100 05/29/18 05:07 71 18 30 05/29/18 05:00 71 22 128/80 (96) 100 05/29/18 04:00 61 18 125/70 (88) 100 05/29/18 04:00 61 05/29/18 04:00 30 05/29/18 04:00 Mechanical Ventilator Mechanical Ventilator 05/29/18 03:03 61 15 30 05/29/18 03:00 65 15 123/57 (79) 100 05/29/18 02:00 61 17 110/55 (73) 100 05/29/18 01:00 58 18 104/48 (66) 100 05/29/18 00:48 59 18 30 05/29/18 00:00 Mechanical Ventilator Mechanical Ventilator 05/29/18 00:00 30 05/29/18 00:00 98.8 63 21 108/54 (72) 100 05/29/18 00:00 62 05/28/18 23:00 61 18 100/47 (64) 100 05/28/18 22:35 66 23 30 05/28/18 22:00 74 24 155/89 (111) 100 05/28/18 21:36 56 19 30 05/28/18 21:00 99.3 70 22 108/52 (70) 100 05/28/18 20:00 67 20 136/52 (80) 100 05/28/18 20:00 67 05/28/18 20:00 30 05/28/18 20:00 Mechanical Ventilator Mechanical Ventilator 05/28/18 19:45 74 22 30 05/28/18 18:52 80 17 130/92 (105) 100 05/28/18 17:05 80 26 30 05/28/18 17:00 79 25 143/74 (97) 100 05/28/18 16:00 64 05/28/18 16:00 99.0 75 25 150/89 (109) 100 05/28/18 16:00 30 05/28/18 16:00 Mechanical Ventilator Mechanical Ventilator 05/28/18 15:00 75 25 138/55 (82) 100 05/28/18 14:58 73 20 30 05/28/18 14:00 76 26 125/80 (95) 100 05/28/18 13:21 83 30 30 05/28/18 13:00 78 26 121/89 (100) 100 05/28/18 12:00 70 05/28/18 12:00 Mechanical Ventilator Mechanical Ventilator 05/28/18 12:00 98.9 79 24 105/63 (77) 100 05/28/18 12:00 30 05/28/18 11:00 82 23 134/75 (94) 100 05/28/18 10:55 81 31 30 05/28/18 10:55 84 20 98 05/28/18 10:00 73 24 98/46 (63) 100 05/28/18 09:12 70 26 30 Intake and Output 05/28/18 05/29/18 18:59 06:59 Intake Total 1814.924 ml 1391.604 ml Output Total 600 ml 110 ml Balance 1214.924 ml 1281.604 ml IV Total 1814.924 ml 1391.604 ml Output Urine Total 145 ml 110 ml Gastric Drainage Total 200 ml Drainage Total 255 ml # Bowel Movements 7 4 Laboratory Tests 05/29/18 05:00: White Blood Count 17.4H, Red Blood Count 2.92L, Hemoglobin 8.6L, Hematocrit 25.3L, Mean Corpuscular Volume 87, Mean Corpuscular Hemoglobin 29.5, Mean Corpuscular Hemoglobin Concent 34.0, Red Cell Distribution Width 15.7H, Platelet Count 93L, Mean Platelet Volume 9.7, Neutrophils (%) (Auto) , Lymphocytes (%) (Auto) , Monocytes (%) (Auto) , Eosinophils (%) (Auto) , Basophils (%) (Auto) , Neutrophils % (Manual) [Pending], Lymphocytes % (Manual) [Pending], Platelet Estimate [Pending], Platelet Morphology [Pending], Prothrombin Time 12.7H, Prothromb Time International Ratio 1.2H, Activated Partial Thromboplast Time 40H, Sodium Level 131L, Potassium Level 2.8L, Chloride Level 93L, Carbon Dioxide Level 20L, Anion Gap 18H, Blood Urea Nitrogen 96H, Creatinine 5.2H, Estimat Glomerular Filtration Rate , Glucose Level 140H, Uric Acid 6.3, Calcium Level 8.0L, Phosphorus Level 5.3H, Magnesium Level 2.4, Total Bilirubin 0.5, Aspartate Amino Transf (AST/SGOT) 23, Alanine Aminotransferase (ALT/SGPT) 11L, Alkaline Phosphatase 97, Ammonia < 10L, Troponin I 0.279H, Pro-B-Type Natriuretic Peptide 59678M, Total Protein 4.2L, Albumin 0.8L, Globulin 3.4, Albumin/Globulin Ratio 0.2L Height (Feet): 5 Height (Inches): 5.00 Weight (Pounds): 190 Objective GENERAL: Intubated. LUNGS: Decreased breath sounds bilaterally. HEART: S1 S2 Regular. ABDOMEN: Bandages applied with drains noted. EXTREMITIES: No cyanosis. No clubbing. Sid Holland May 29, 2018 09:02
--- NOTE | 2018-05-29 09:37 | NUR ---
RADIOLOGY DEPT CHEST X-RAY DONE.-P.DYE
--- NOTE | 2018-05-29 09:42 | General Progress Note ---
Assessment/Plan Assessment/Plan Assessment - septic shock - improved - abdominal infection - s/p exlap - resp failure - on vent - renal failure - malnutrition - on TPN Recommendation - supportive care - Abx - TF when OK with surgery - TPN per renal - follow labs - vent care - HD - guarded Subjective Allergies: Coded Allergies: No Known Allergies (Unverified , 11/12/12) Subjective above noted more awake (+) BM NGT clamped due to reddish aspirate D/W RN Objective Last 24 Hour Vital Signs Date Time Temp Pulse Resp B/P (MAP) Pulse Ox O2 Delivery O2 Flow Rate FiO2 05/29/18 08:00 Mechanical Ventilator Mechanical Ventilator 05/29/18 08:00 30 05/29/18 07:10 66 21 30 05/29/18 06:00 68 21 145/98 (114) 100 05/29/18 05:07 71 18 30 05/29/18 05:00 71 22 128/80 (96) 100 05/29/18 04:00 61 18 125/70 (88) 100 05/29/18 04:00 61 05/29/18 04:00 30 05/29/18 04:00 Mechanical Ventilator Mechanical Ventilator 05/29/18 03:03 61 15 30 05/29/18 03:00 65 15 123/57 (79) 100 05/29/18 02:00 61 17 110/55 (73) 100 05/29/18 01:00 58 18 104/48 (66) 100 05/29/18 00:48 59 18 30 05/29/18 00:00 Mechanical Ventilator Mechanical Ventilator 05/29/18 00:00 30 05/29/18 00:00 98.8 63 21 108/54 (72) 100 05/29/18 00:00 62 05/28/18 23:00 61 18 100/47 (64) 100 05/28/18 22:35 66 23 30 05/28/18 22:00 74 24 155/89 (111) 100 05/28/18 21:36 56 19 30 05/28/18 21:00 99.3 70 22 108/52 (70) 100 05/28/18 20:00 67 20 136/52 (80) 100 05/28/18 20:00 67 05/28/18 20:00 30 05/28/18 20:00 Mechanical Ventilator Mechanical Ventilator 05/28/18 19:45 74 22 30 05/28/18 18:52 80 17 130/92 (105) 100 05/28/18 17:05 80 26 30 05/28/18 17:00 79 25 143/74 (97) 100 05/28/18 16:00 64 05/28/18 16:00 99.0 75 25 150/89 (109) 100 05/28/18 16:00 30 05/28/18 16:00 Mechanical Ventilator Mechanical Ventilator 05/28/18 15:00 75 25 138/55 (82) 100 05/28/18 14:58 73 20 30 05/28/18 14:00 76 26 125/80 (95) 100 05/28/18 13:21 83 30 30 05/28/18 13:00 78 26 121/89 (100) 100 05/28/18 12:00 70 05/28/18 12:00 Mechanical Ventilator Mechanical Ventilator 05/28/18 12:00 98.9 79 24 105/63 (77) 100 05/28/18 12:00 30 05/28/18 11:00 82 23 134/75 (94) 100 05/28/18 10:55 81 31 30 05/28/18 10:55 84 20 98 05/28/18 10:00 73 24 98/46 (63) 100 Intake and Output 05/28/18 05/29/18 18:59 06:59 Intake Total 1814.924 ml 1391.604 ml Output Total 600 ml 110 ml Balance 1214.924 ml 1281.604 ml IV Total 1814.924 ml 1391.604 ml Output Urine Total 145 ml 110 ml Gastric Drainage Total 200 ml Drainage Total 255 ml # Bowel Movements 7 4 Laboratory Tests 05/29/18 05:00: White Blood Count 17.4H, Red Blood Count 2.92L, Hemoglobin 8.6L, Hematocrit 25.3L, Mean Corpuscular Volume 87, Mean Corpuscular Hemoglobin 29.5, Mean Corpuscular Hemoglobin Concent 34.0, Red Cell Distribution Width 15.7H, Platelet Count 93L, Mean Platelet Volume 9.7, Neutrophils (%) (Auto) , Lymphocytes (%) (Auto) , Monocytes (%) (Auto) , Eosinophils (%) (Auto) , Basophils (%) (Auto) , Neutrophils % (Manual) [Pending], Lymphocytes % (Manual) [Pending], Platelet Estimate [Pending], Platelet Morphology [Pending], Prothrombin Time 12.7H, Prothromb Time International Ratio 1.2H, Activated Partial Thromboplast Time 40H, Sodium Level 131L, Potassium Level 2.8L, Chloride Level 93L, Carbon Dioxide Level 20L, Anion Gap 18H, Blood Urea Nitrogen 96H, Creatinine 5.2H, Estimat Glomerular Filtration Rate , Glucose Level 140H, Uric Acid 6.3, Calcium Level 8.0L, Phosphorus Level 5.3H, Magnesium Level 2.4, Total Bilirubin 0.5, Aspartate Amino Transf (AST/SGOT) 23, Alanine Aminotransferase (ALT/SGPT) 11L, Alkaline Phosphatase 97, Ammonia < 10L, Troponin I 0.279H, Pro-B-Type Natriuretic Peptide 96338T, Total Protein 4.2L, Albumin 0.8L, Globulin 3.4, Albumin/Globulin Ratio 0.2L Height (Feet): 5 Height (Inches): 5.00 Weight (Pounds): 190 Objective Intubated NCAT ETT / OGT Supple Coarse BS RR abd more flat, (+) large dressing with VELVET x 2 no edema awake, looks at Lisa Tsang MD May 29, 2018 09:42
[2018-05-29] MEDS: Pantoprazole Inj IVP SCH ×2 (09:43→21:14)
[2018-05-29] MEDS: Levemir Flexpen SUBQ SCH ×2 (09:47→21:16)
--- NOTE | 2018-05-29 10:00 | NUR ---
NURSE NOTES: Stephen RN HERE TO DO DIALYSIS, WAS INFORMED THAT CURRENT K 2.9. MD HAS BEEN CONTACTED TO GET K REPLACEMENT ORDER, AWAITING CALL BACK, PT BP 126/80, HR 75 RR 24 02SAT 100%. PT IN NO ACUTE DISTRESS. WILL CONTINUE TO MONITOR.
--- NOTE | 2018-05-29 10:05 | NUR ---
NURSE NOTES: RECEIVED CALL IN FROM MD OFFICE, NO NEW ORDER REGARDING K, H.D R.N WILL INCLUDE K DURING H.D. NO MENTION OF TROPONIN OF 0.279
--- NOTE | 2018-05-29 10:12 | Infectious Diseases Prog Note ---
Assessment/Plan Assessment/Plan A: 1. serratia , Enterobacter sepsis with shock 2. VRE colonization 3. diabetes mellitus 4. hypertension 5. 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 leucocytosis 6. A fib with RVR 7. Small bowel perforation 8. Perioperative respiratory failure 9. Atelectasis versus Pneumonia 10 Peritonitis with Citrobacter & Serratia 11. sepsis, septic shock 12. Lactic acidosis 13. Anemia 14. Anastomosis leak 15. Hypokalemia P 1. continue Cefepime , Flagyl , Levaquin & Fluconazole 2.Continue TPN Subjective ROS Limited/Unobtainable: Yes Constitutional: Reports: no symptoms Allergies: Coded Allergies: No Known Allergies (Unverified , 11/12/12) Objective Vital Signs Last 24 Hour Vital Signs Date Time Temp Pulse Resp B/P (MAP) Pulse Ox O2 Delivery O2 Flow Rate FiO2 05/29/18 08:00 Mechanical Ventilator Mechanical Ventilator 05/29/18 08:00 30 05/29/18 07:10 66 21 30 05/29/18 06:00 68 21 145/98 (114) 100 05/29/18 05:07 71 18 30 05/29/18 05:00 71 22 128/80 (96) 100 05/29/18 04:00 61 18 125/70 (88) 100 05/29/18 04:00 61 05/29/18 04:00 30 05/29/18 04:00 Mechanical Ventilator Mechanical Ventilator 05/29/18 03:03 61 15 30 05/29/18 03:00 65 15 123/57 (79) 100 05/29/18 02:00 61 17 110/55 (73) 100 05/29/18 01:00 58 18 104/48 (66) 100 05/29/18 00:48 59 18 30 05/29/18 00:00 Mechanical Ventilator Mechanical Ventilator 05/29/18 00:00 30 05/29/18 00:00 98.8 63 21 108/54 (72) 100 05/29/18 00:00 62 05/28/18 23:00 61 18 100/47 (64) 100 05/28/18 22:35 66 23 30 05/28/18 22:00 74 24 155/89 (111) 100 05/28/18 21:36 56 19 30 05/28/18 21:00 99.3 70 22 108/52 (70) 100 05/28/18 20:00 67 20 136/52 (80) 100 05/28/18 20:00 67 05/28/18 20:00 30 05/28/18 20:00 Mechanical Ventilator Mechanical Ventilator 05/28/18 19:45 74 22 30 05/28/18 18:52 80 17 130/92 (105) 100 05/28/18 17:05 80 26 30 05/28/18 17:00 79 25 143/74 (97) 100 05/28/18 16:00 64 05/28/18 16:00 99.0 75 25 150/89 (109) 100 05/28/18 16:00 30 05/28/18 16:00 Mechanical Ventilator Mechanical Ventilator 05/28/18 15:00 75 25 138/55 (82) 100 05/28/18 14:58 73 20 30 05/28/18 14:00 76 26 125/80 (95) 100 05/28/18 13:21 83 30 30 05/28/18 13:00 78 26 121/89 (100) 100 05/28/18 12:00 70 05/28/18 12:00 Mechanical Ventilator Mechanical Ventilator 05/28/18 12:00 98.9 79 24 105/63 (77) 100 05/28/18 12:00 30 05/28/18 11:00 82 23 134/75 (94) 100 05/28/18 10:55 81 31 30 05/28/18 10:55 84 20 98 Height (Feet): 5 Height (Inches): 5.00 Weight (Pounds): 190 HEENT: mucous membranes moist, other - orally intubated Respiratory/Chest: lungs clear, other - on ventilator Cardiovascular: normal rate, other - femoral HD line, Left subclavian central line Abdomen: other - Orogastric tube, bilatral lower quadrants drains Extremities: other - edema of hands Neurologic/Psychiatric: alert, other - opens eyes Laboratory Tests Test 05/29/18 05:00 White Blood Count 17.4 K/UL (4.8-10.8) H Red Blood Count 2.92 M/UL (4.70-6.10) L Hemoglobin 8.6 G/DL (14.2-18.0) L Hematocrit 25.3 % (42.0-52.0) L Mean Corpuscular Volume 87 FL (80-99) Mean Corpuscular Hemoglobin 29.5 PG (27.0-31.0) Mean Corpuscular Hemoglobin Concent 34.0 G/DL (32.0-36.0) Red Cell Distribution Width 15.7 % (11.6-14.8) H Platelet Count 93 K/UL (150-450) L Mean Platelet Volume 9.7 FL (6.5-10.1) Neutrophils (%) (Auto) % (45.0-75.0) Lymphocytes (%) (Auto) % (20.0-45.0) Monocytes (%) (Auto) % (1.0-10.0) Eosinophils (%) (Auto) % (0.0-3.0) Basophils (%) (Auto) % (0.0-2.0) Neutrophils % (Manual) Pending Lymphocytes % (Manual) Pending Platelet Estimate Pending Platelet Morphology Pending Prothrombin Time 12.7 SEC (9.30-11.50) H Prothromb Time International Ratio 1.2 (0.9-1.1) H Activated Partial Thromboplast Time 40 SEC (23-33) H Sodium Level 131 MMOL/L (136-145) L Potassium Level 2.8 MMOL/L (3.5-5.1) L Chloride Level 93 MMOL/L (98-107) L Carbon Dioxide Level 20 MMOL/L (21-32) L Anion Gap 18 mmol/L (5-15) H Blood Urea Nitrogen 96 mg/dL (7-18) H Creatinine 5.2 MG/DL (0.55-1.30) H Estimat Glomerular Filtration Rate mL/min (>60) Glucose Level 140 MG/DL (74-106) H Uric Acid 6.3 MG/DL (2.6-7.2) Calcium Level 8.0 MG/DL (8.5-10.1) L Phosphorus Level 5.3 MG/DL (2.5-4.9) H Magnesium Level 2.4 MG/DL (1.8-2.4) Total Bilirubin 0.5 MG/DL (0.2-1.0) Aspartate Amino Transf (AST/SGOT) 23 U/L (15-37) Alanine Aminotransferase (ALT/SGPT) 11 U/L (12-78) L Alkaline Phosphatase 97 U/L (46-116) Ammonia < 10 umol/L (11-32) L Troponin I 0.279 ng/mL (0.000-0.056) Pro-B-Type Natriuretic Peptide 53841 pg/mL (0-125) H Total Protein 4.2 G/DL (6.4-8.2) L Albumin 0.8 G/DL (3.4-5.0) L Globulin 3.4 g/dL Albumin/Globulin Ratio 0.2 (1.0-2.7) L Current Medications Medications (Trade) Dose Ordered Sig/Min Route PRN Reason Start Time Stop Time Status Last Admin Dose Admin Acetaminophen (Tylenol) 650 mg Q4H PRN RECTAL Mild Pain/Temp > 100.5 05/21/18 12:00 06/20/18 11:59 Amiodarone HCl 900 mg/Dextrose 500 ml @ 16.66 mls/ hr Q24H IV 05/28/18 23:00 05/29/18 22:59 05/28/18 23:12 Cefepime HCl 2 gm/ Dextrose 55 ml @ 110 mls/hr Q24H IVPB 05/25/18 13:00 06/01/18 12:59 05/28/18 14:59 Chlorhexidine Gluconate (Tatyana-Hex 2%) 1 applic DAILY@2000 TOPIC 05/12/18 20:00 06/11/18 19:59 05/28/18 20:40 Dextrose 1,000 ml @ 0 mls/hr Q24H PRN IV PN interrupted or unavailable 05/25/18 21:00 06/24/18 20:59 Dextrose (Dextrose 50%) 25 ml Q30M PRN IV Hypoglycemia 05/26/18 12:45 06/25/18 12:44 Dextrose (Dextrose 50%) 50 ml Q30M PRN IV Hypoglycemia 05/26/18 12:45 06/25/18 12:44 Fat Emulsion Intravenous 250 ml/Amino Acids/ Electrolytes/ Dextrose 2,050 ml @ 85.417 mls/ hr Q24H IV 05/28/18 20:00 06/27/18 19:59 05/28/18 21:30 Fluconazole/ Sodium Chloride 100 ml @ 100 mls/hr Q24H IV 05/28/18 18:00 06/04/18 17:59 05/28/18 18:25 Hydrocortisone (Solu-CORTEF) 50 mg EVERY 8 HOURS IV 05/26/18 14:00 06/20/18 21:59 05/29/18 05:51 Hydromorphone HCl (Dilaudid) 1 mg Q2H PRN IVP Severe Pain (Pain Scale 7-10) 05/28/18 08:52 06/02/18 08:51 Insulin Aspart (NovoLOG) EVERY 4 HOURS SUBQ 05/24/18 17:00 06/15/18 20:59 05/29/18 09:00 Insulin Aspart (NovoLOG) 10 units EVERY 4 HOURS SUBQ 05/27/18 09:00 06/25/18 12:59 05/29/18 09:00 Insulin Detemir (Levemir) 20 units Q12HR SUBQ 05/27/18 09:00 06/23/18 17:59 05/29/18 09:47 Levofloxacin 50 ml @ 50 mls/hr Q24H IVPB 05/25/18 13:00 06/01/18 12:59 05/28/18 14:58 Metronidazole 100 ml @ 100 mls/hr Q8HR IVPB 05/25/18 14:00 06/01/18 13:59 05/29/18 05:51 Norepinephrine Bitartrate 8 mg/ Dextrose 500 ml @ 0 mls/hr Q24H IV 05/21/18 14:30 06/20/18 14:29 05/27/18 14:30 Ondansetron HCl (Zofran) 4 mg Q6H PRN IVP Nausea & Vomiting 05/15/18 23:30 06/14/18 23:29 Pantoprazole (Protonix) 40 mg EVERY 12 HOURS IVP 05/12/18 21:00 06/10/18 20:59 05/29/18 09:43 Phytonadione (Vitamin K) 10 mg ONCE A WEEK SUBQ 05/25/18 21:00 06/24/18 20:59 05/25/18 20:30 Vasopressin 100 units/Sodium Chloride 100 ml @ 0 mls/hr Q24H IV 05/22/18 11:30 06/21/18 11:29 05/23/18 17:47 Romie Hooks MD May 29, 2018 10:12
--- NOTE | 2018-05-29 10:40 | NUR ---
NURSE NOTES: MD BURNHAM HERE TO SEE PT.
[2018-05-29] MEDS: Vasopressin 100 UNITS in NS 95 ML IV SCH (11:30)
--- NOTE | 2018-05-29 12:00 | NUR ---
NURSE NOTES: H.D COMPLETE, 2L OUT. BP 120/70 RR 22 02SAT 100%. MD MENEZES HERE TO SEE PT. STARTED WEANING TRAIL. PLACED PT ON P.S 12, IN HALF HOUR PLACE ON P.S 10 AND IN HALF AN HOUR FROM THEN PLACE ON P.S 8 AND TRY SVT. WILL GO AND INFORM R.T.
--- NOTE | 2018-05-29 12:11 | NUR ---
RD ASSESSMENT & RECOMMENDATIONS SEE CARE ACTIVITY FOR COMPLETE ASSESSMENT DAILY ESTIMATED NEEDS: Needs based on ESRD on HD, wound, critical care/ 73.7kg abw 25-30 kcals/kg 8712-2408 total kcals 1.25-2 g protein/kg 92-147 g total protein Fluid per MD mL/kg . total fluid mLs NUTRITION DIAGNOSIS: 1) Increased kcal and protein needs r/t renal dysfunction, wound healing, surgery as evidenced by pt with ESRD on HD, partial thickness wound @ sacral cleft and stage 1 @ rt heel, s/p small bowel resection. 2) Altered GI function R/T recent lap matthew w/ possible complications as evidenced by pt admitted w/ c/o abdominal pain, s/p ex lap w/ finding of small bowel perforation in distal ileum, s/p small bowel resection w/ drain, NPO at this time, day 8. 3) Altered nutrition related lab values R/T ESRD, on steroidal med, DM dx, clinical condition, as evidenced by low Na (129-> wnl), elev K (5.9-> wnl), elev phos (9.5), elev BNP (>65570), elev BGs (317 250 252- now improved), low BP, off pressors at this time- TPN initiated CURRENT DIET:NPO CURRENT TF:OGT to LIS- clamped at this time PARENTERAL NUTRITION RECOMMENDATIONS: D/AA Rate: 75 IL Rate: 10 Total Rate: 85 Volume: 2040 % Dextrose: 18 % AA: 5.5 Energy (kcals/kg): 1978 Protein (g/kg protein): 99 Nonprotein KCALS: 1582 GIR (mg CHO/kg/min): 2.6 % Fat KCALS: 24 NCP: N Ratio: 100:1 TPN Comment: * W/ hemodyamic stability, rec to continue current TPN * D18% AA 5.5% @ 75ml/hr + IL20% @10ml/hr -> all 3:1, total of 85ml/hr. * Meets 100% est kcal and prot needs, 27kcal/adj kg, 1.3g prot/ adj kg. * GIR=2.6, IL <30%, NPC: 100:1 ADDITIONAL RECOMMENDATIONS: 1) REcalibrate bed scale for accurate CBW 2) Monitor lytes, BGs, LFTs daily on TPN 3) Monitor BGs closely- on steroidal med . . .
--- NOTE | 2018-05-29 12:38 | NUR ---
Titrated PS from 12 to 10. Pt saturating 100% and tolerating well.
--- NOTE | 2018-05-29 12:57 | Diagnostic Imaging Report ---
APPROVED REPORT CPT Code: 90312 Present Symptoms Comments: Pain Follow-up BILATERAL: Imaging reveals a patent deep venous system bilaterally. There is no evidence of thrombus within the femoral, popliteal or tibial segments. The greater saphenous veins are also within normal limits. Doppler indicates normal spontaneous flow within these segments.
--- NOTE | 2018-05-29 13:31 | Diagnostic Imaging Report ---
Indication: Dyspnea Technique: One view of the chest Comparison: 05/25/2018 Findings: Left subclavian central venous catheter, endotracheal tube, nasogastric tube are again demonstrated. Stable atelectatic changes at the right lung base. Lungs and pleural spaces are otherwise clear, with interim clearing of opacities at the left lung base. Impression: Right basilar atelectasis. No acute process otherwise Interim clearing of previously demonstrated left basilar opacities
[2018-05-29] MEDS: Cefepime HCl 2 GM in D5W 55 ML IVPB SCH (13:46)
[2018-05-29] MEDS: Norepinephrine Bitartrate 8 MG in D5W 500ml 492 ML IV SCH (14:30)
--- NOTE | 2018-05-29 14:56 | NUR ---
NURSE NOTES: CALLED MD MENEZES REGARDING PT ON CPAP P.S 8, 02 SAT 100%, RR 20-25bpm. RECEIVED ORDER TO INPUT ABG AND CALL WITH RESULTS.
--- NOTE | 2018-05-29 15:19 | Nephrology Progress Note ---
Assessment/Plan Problem List: (1) ESRD (end stage renal disease) on dialysis (2) Perforated bowel (3) Hyponatremia (4) Major depression (5) Nausea & vomiting (6) H/O abdominal surgery Assessment: recent (7) Shock Assessment recent abdominal surgery hemodynamically stablized over night Presents with CHF and Low Na ESRD ACS DM HTN h/o GI bleed Depression Plan Need pressors periodically on TPN- adjust Na and K and Mag in TPN HD 05/29 - 2 liters remove transfused 2 units- on steroids vented insulin for high BS hold dig , check levels, resume as needed no NGT ,On Vent Psych started Zoloft PO ? Will DC ZOLOFT. Has abd surgery 05/15 Perforated bowel graft clotted , has a femoral felice right HOLD ALL MIND ALTERING MEDS - DC all po meds FLUID CHALLENGE pressors as needed BP HR Pain control discussed with RN and Dr Karen LAUREN protonix Subjective ROS Limited/Unobtainable: Yes Objective Objective Last 24 Hour Vital Signs Date Time Temp Pulse Resp B/P (MAP) Pulse Ox O2 Delivery O2 Flow Rate FiO2 05/29/18 13:00 68 21 30 05/29/18 12:00 99.3 65 21 123/73 (90) 100 05/29/18 12:00 58 05/29/18 12:00 Mechanical Ventilator Mechanical Ventilator 05/29/18 12:00 100 05/29/18 12:00 73 22 30 05/29/18 11:07 76 23 30 05/29/18 11:00 73 23 113/60 (77) 100 05/29/18 10:00 75 24 157/55 (89) 100 05/29/18 09:00 66 21 30 05/29/18 09:00 62 19 128/60 (82) 100 05/29/18 08:00 Mechanical Ventilator Mechanical Ventilator 05/29/18 08:00 69 21 127/62 (83) 100 05/29/18 08:00 68 05/29/18 08:00 30 05/29/18 07:10 66 21 30 05/29/18 07:00 99.0 68 21 151/98 (115) 100 05/29/18 06:00 68 21 145/98 (114) 100 05/29/18 05:07 71 18 30 05/29/18 05:00 71 22 128/80 (96) 100 05/29/18 04:00 61 18 125/70 (88) 100 05/29/18 04:00 61 05/29/18 04:00 30 05/29/18 04:00 Mechanical Ventilator Mechanical Ventilator 05/29/18 03:03 61 15 30 05/29/18 03:00 65 15 123/57 (79) 100 05/29/18 02:00 61 17 110/55 (73) 100 05/29/18 01:00 58 18 104/48 (66) 100 05/29/18 00:48 59 18 30 05/29/18 00:00 Mechanical Ventilator Mechanical Ventilator 05/29/18 00:00 30 05/29/18 00:00 98.8 63 21 108/54 (72) 100 05/29/18 00:00 62 05/28/18 23:00 61 18 100/47 (64) 100 05/28/18 22:35 66 23 30 05/28/18 22:00 74 24 155/89 (111) 100 05/28/18 21:36 56 19 30 05/28/18 21:00 99.3 70 22 108/52 (70) 100 05/28/18 20:00 67 20 136/52 (80) 100 05/28/18 20:00 67 05/28/18 20:00 30 05/28/18 20:00 Mechanical Ventilator Mechanical Ventilator 05/28/18 19:45 74 22 30 05/28/18 18:52 80 17 130/92 (105) 100 05/28/18 17:05 80 26 30 05/28/18 17:00 79 25 143/74 (97) 100 05/28/18 16:00 64 05/28/18 16:00 99.0 75 25 150/89 (109) 100 05/28/18 16:00 30 05/28/18 16:00 Mechanical Ventilator Mechanical Ventilator Intake and Output 05/28/18 05/29/18 19:00 07:00 Intake Total 1914.924 ml 1189.527 ml Output Total 590 ml 115 ml Balance 1324.924 ml 1074.527 ml IV Total 1914.924 ml 1189.527 ml Output Urine Total 135 ml 115 ml Gastric Drainage Total 200 ml Drainage Total 255 ml # Bowel Movements 7 4 Laboratory Tests 05/29/18 05:00: White Blood Count 17.4H, Red Blood Count 2.92L, Hemoglobin 8.6L, Hematocrit 25.3L, Mean Corpuscular Volume 87, Mean Corpuscular Hemoglobin 29.5, Mean Corpuscular Hemoglobin Concent 34.0, Red Cell Distribution Width 15.7H, Platelet Count 93L, Mean Platelet Volume 9.7, Neutrophils (%) (Auto) , Lymphocytes (%) (Auto) , Monocytes (%) (Auto) , Eosinophils (%) (Auto) , Basophils (%) (Auto) , Differential Total Cells Counted 100, Neutrophils % ( Manual) 92H, Lymphocytes % (Manual) 0L, Monocytes % (Manual) 4, Eosinophils % ( Manual) 0, Basophils % (Manual) 0, Band Neutrophils 4, Platelet Estimate DecreasedL, Platelet Morphology Normal, Hypochromasia 1+, Anisocytosis 1+, Prothrombin Time 12.7H, Prothromb Time International Ratio 1.2H, Activated Partial Thromboplast Time 40H, Sodium Level 131L, Potassium Level 2.8L, Chloride Level 93L, Carbon Dioxide Level 20L, Anion Gap 18H, Blood Urea Nitrogen 96H, Creatinine 5.2H, Estimat Glomerular Filtration Rate , Glucose Level 140H, Uric Acid 6.3, Calcium Level 8.0L, Phosphorus Level 5.3H, Magnesium Level 2.4, Total Bilirubin 0.5, Aspartate Amino Transf (AST/SGOT) 23, Alanine Aminotransferase (ALT/SGPT) 11L, Alkaline Phosphatase 97, Ammonia < 10L, Troponin I 0.279H, Pro-B-Type Natriuretic Peptide 59670L, Total Protein 4.2L, Albumin 0.8L, Globulin 3.4, Albumin/Globulin Ratio 0.2L Height (Feet): 5 Height (Inches): 5.00 Weight (Pounds): 190 General Appearance: no apparent distress EENT: other - vented Cardiovascular: normal rate Respiratory/Chest: decreased breath sounds Abdomen: distended Objective no change Maurilio Arroyo MD May 29, 2018 15:19
--- NOTE | 2018-05-29 15:38 | Cardiac Electrophysiology PN ---
Assessment/Plan Assessment/Plan 1. Atrial fib/flutter with RVR In SR on Amio drip. Can't switch to po as NPO Last Dig level 1.9 on 05/21/18 but off Dig. If develops atrial fib with RVR would digitalize again. 2. Chest pain. No UT.Troponin leak due to renal failure and nonspecific EKG showed old inferior and anterior wall UT, but no ischemia. ECHO normal LV function 3. End-stage renal disease, on hemodialysis per Dr. Arroyo. 4. Septic shock, back on Levophed today. 2D Echo EF 60% and PA pressure 63 ? PE. DD 35.2. Unstable for chest CT angio. Off heparin drip for surgery 5. History of kidney stones. 6. History of psychiatric problems, dementia. 7. Hx of lap matthew. S/P SB resection 05/15/18 with drain Has yellowish discharge from incision. On iv Abx per ID S/P redo surgery 05/23/18 that showed Anastomotic leak. S/P surgery again by DR Chandler 05/27/18 8. Respiratory failure, intubated on the vent. DW RN Subjective Subjective In ICU on Amiodarone drip 0.5 mg. Off Levophed. Off Heparin drip since surgery. On the Vent. Objective Last 24 Hour Vital Signs Date Time Temp Pulse Resp B/P (MAP) Pulse Ox O2 Delivery O2 Flow Rate FiO2 05/29/18 13:00 68 21 30 05/29/18 12:00 99.3 65 21 123/73 (90) 100 05/29/18 12:00 58 05/29/18 12:00 Mechanical Ventilator Mechanical Ventilator 05/29/18 12:00 100 05/29/18 12:00 73 22 30 05/29/18 11:07 76 23 30 05/29/18 11:00 73 23 113/60 (77) 100 05/29/18 10:00 75 24 157/55 (89) 100 05/29/18 09:00 66 21 30 05/29/18 09:00 62 19 128/60 (82) 100 05/29/18 08:00 Mechanical Ventilator Mechanical Ventilator 05/29/18 08:00 69 21 127/62 (83) 100 05/29/18 08:00 68 05/29/18 08:00 30 05/29/18 07:10 66 21 30 05/29/18 07:00 99.0 68 21 151/98 (115) 100 05/29/18 06:00 68 21 145/98 (114) 100 05/29/18 05:07 71 18 30 05/29/18 05:00 71 22 128/80 (96) 100 05/29/18 04:00 61 18 125/70 (88) 100 05/29/18 04:00 61 05/29/18 04:00 30 05/29/18 04:00 Mechanical Ventilator Mechanical Ventilator 05/29/18 03:03 61 15 30 05/29/18 03:00 65 15 123/57 (79) 100 05/29/18 02:00 61 17 110/55 (73) 100 05/29/18 01:00 58 18 104/48 (66) 100 05/29/18 00:48 59 18 30 05/29/18 00:00 Mechanical Ventilator Mechanical Ventilator 05/29/18 00:00 30 05/29/18 00:00 98.8 63 21 108/54 (72) 100 05/29/18 00:00 62 05/28/18 23:00 61 18 100/47 (64) 100 05/28/18 22:35 66 23 30 05/28/18 22:00 74 24 155/89 (111) 100 05/28/18 21:36 56 19 30 05/28/18 21:00 99.3 70 22 108/52 (70) 100 05/28/18 20:00 67 20 136/52 (80) 100 05/28/18 20:00 67 05/28/18 20:00 30 05/28/18 20:00 Mechanical Ventilator Mechanical Ventilator 05/28/18 19:45 74 22 30 05/28/18 18:52 80 17 130/92 (105) 100 05/28/18 17:05 80 26 30 05/28/18 17:00 79 25 143/74 (97) 100 05/28/18 16:00 64 05/28/18 16:00 99.0 75 25 150/89 (109) 100 05/28/18 16:00 30 05/28/18 16:00 Mechanical Ventilator Mechanical Ventilator Intake and Output 05/28/18 05/29/18 19:00 07:00 Intake Total 1914.924 ml 1206.187 ml Output Total 590 ml 115 ml Balance 1324.924 ml 1091.187 ml IV Total 1914.924 ml 1206.187 ml Output Urine Total 135 ml 115 ml Gastric Drainage Total 200 ml Drainage Total 255 ml # Bowel Movements 7 4 Laboratory Tests Test 05/29/18 05:00 05/29/18 15:10 White Blood Count 17.4 K/UL (4.8-10.8) H Red Blood Count 2.92 M/UL (4.70-6.10) L Hemoglobin 8.6 G/DL (14.2-18.0) L Hematocrit 25.3 % (42.0-52.0) L Mean Corpuscular Volume 87 FL (80-99) Mean Corpuscular Hemoglobin 29.5 PG (27.0-31.0) Mean Corpuscular Hemoglobin Concent 34.0 G/DL (32.0-36.0) Red Cell Distribution Width 15.7 % (11.6-14.8) H Platelet Count 93 K/UL (150-450) L Mean Platelet Volume 9.7 FL (6.5-10.1) Neutrophils (%) (Auto) % (45.0-75.0) Lymphocytes (%) (Auto) % (20.0-45.0) Monocytes (%) (Auto) % (1.0-10.0) Eosinophils (%) (Auto) % (0.0-3.0) Basophils (%) (Auto) % (0.0-2.0) Differential Total Cells Counted 100 Neutrophils % (Manual) 92 % (45-75) H Lymphocytes % (Manual) 0 % (20-45) L Monocytes % (Manual) 4 % (1-10) Eosinophils % (Manual) 0 % (0-3) Basophils % (Manual) 0 % (0-2) Band Neutrophils 4 % (0-8) Platelet Estimate Decreased L Platelet Morphology Normal Hypochromasia 1+ Anisocytosis 1+ Prothrombin Time 12.7 SEC (9.30-11.50) H Prothromb Time International Ratio 1.2 (0.9-1.1) H Activated Partial Thromboplast Time 40 SEC (23-33) H Sodium Level 131 MMOL/L (136-145) L Potassium Level 2.8 MMOL/L (3.5-5.1) L Chloride Level 93 MMOL/L (98-107) L Carbon Dioxide Level 20 MMOL/L (21-32) L Anion Gap 18 mmol/L (5-15) H Blood Urea Nitrogen 96 mg/dL (7-18) H Creatinine 5.2 MG/DL (0.55-1.30) H Estimat Glomerular Filtration Rate mL/min (>60) Glucose Level 140 MG/DL (74-106) H Uric Acid 6.3 MG/DL (2.6-7.2) Calcium Level 8.0 MG/DL (8.5-10.1) L Phosphorus Level 5.3 MG/DL (2.5-4.9) H Magnesium Level 2.4 MG/DL (1.8-2.4) Total Bilirubin 0.5 MG/DL (0.2-1.0) Aspartate Amino Transf (AST/SGOT) 23 U/L (15-37) Alanine Aminotransferase (ALT/SGPT) 11 U/L (12-78) L Alkaline Phosphatase 97 U/L (46-116) Ammonia < 10 umol/L (11-32) L Troponin I 0.279 ng/mL (0.000-0.056) Pro-B-Type Natriuretic Peptide 76416 pg/mL (0-125) H Total Protein 4.2 G/DL (6.4-8.2) L Albumin 0.8 G/DL (3.4-5.0) L Globulin 3.4 g/dL Albumin/Globulin Ratio 0.2 (1.0-2.7) L Arterial Blood pH 7.341 (7.350-7.450) Arterial Blood Partial Pressure CO2 48.1 mmHg (35.0-45.0) H Arterial Blood Partial Pressure O2 86.7 mmHg (75.0-100.0) Arterial Blood HCO3 25.4 mmol/L (22.0-26.0) Arterial Blood Oxygen Saturation 95.4 % (95-100) Arterial Blood Base Excess -0.6 (-2-2) Luiz Test Positive Objective HEENT: Orally intubated Cardiovascular: Sinus tachycardia Respiratory/Chest: Coarse rhonchi Abdomen: Post op with 2 VELVET drain and WoundVac Extremities: No edema. Right groin dialysis catheter Everett Stephenson MD May 29, 2018 15:38
--- NOTE | 2018-05-29 15:43 | NUR ---
NURSE NOTES: CALLED MD MENEZES REGARDING ABG RESULTS PH 7.341, PCO2 48.1, P02 86.7, HCO3 25.4, PT RESPONSIVE, FOLLOWS SIMPLE COMMANDS. RECEIVED ORDER TO PROCEED WITH EXTUBATION, AND BIPAP 12/5, HS AND PRN. WILL INFORM R.T
--- NOTE | 2018-05-29 16:04 | General Progress Note ---
Progress Note Progress Note surgery: doing better. more awake. tolerating weaning trials. ready for extubation soon. leukocytosis drains serous midline c/d/i abd soft prognosis guarded cont current care Tomas Chandler May 29, 2018 16:04
--- NOTE | 2018-05-29 17:00 | NUR ---
NURSE NOTES: pt extubated, on placed on bipap, full face mask. 02 sat 100%. pt in no acute distress.
--- NOTE | 2018-05-29 17:05 | NUR ---
RESPIRATORY NOTE: Extubated pt per Dr.'s Jones, MINGO Ambriz is at bedside. Placed pt on Bipap 12/5- back up rate 16- 50% FiO2, pt desaturated down to low 80%, increased FiO2 to 100% for now, saturation went up to 100%. Skin redness noted on the left upper lip, MINGO Ambriz aware. Foam tape in place around the face to prevent skin breakdown. Alarms are set and audible, Bipap is plugged into the red outlet, ambu bag is at bedside.
[2018-05-29 17:32] LABS: ANION GAP 12 mmol/L (5-15); BLOOD UREA NITROGEN 68 mg/dL (7-18); CALCIUM 7.8 MG/DL (8.5-10.1); CARBON DIOXIDE 25 MMOL/L (21-32); CHLORIDE 100 MMOL/L (98-107); CREATININE 3.8 MG/DL (0.55-1.30); POTASSIUM 2.8 MMOL/L (3.5-5.1); SODIUM 137 MMOL/L (136-145)
[2018-05-29 17:36] LABS: ALANINE AMINOTRANSFERASE 14 U/L (12-78); ALBUMIN 0.9 G/DL (3.4-5.0); ALBUMIN/GLOBULIN RATIO 0.3 (1.0-2.7); ALKALINE PHOSPHATASE 108 U/L (46-116); ASPARTATE AMINO TRANSFERASE 25 U/L (15-37); BILIRUBIN,TOTAL 0.4 MG/DL (0.2-1.0); PHOSPHORUS 4.4 MG/DL (2.5-4.9)
--- NOTE | 2018-05-29 17:49 | NUR ---
CASE MANAGEMENT: REVIEW SI: ESRD ON HD . ACS . A-FIB RIGHT FEMORAL TEMPORARY HEMODIALYSIS CATHETER INSERTION 05/13 T 99.3 HR 65 RR 26 BP 104/48 SAT 100% MECH VENT FIO2 30 WBC 17.4 H/H 8.6/25.3 K 2.8 IS: TPN IV Q24HR DIFLUCAN IV Q24HR AMIODARONE IV Q24HR CEFEPIME IV Q24HR LEVOFLOXACIN IV Q24HR VASOPRESSIN IV Q24HR LEVOPHED IV Q24HR ICU STATUS DCP: PATIENT IS FROM HOME
--- NOTE | 2018-05-29 19:22 | NUR ---
HAND-OFF: Report given to angel. pt in no acute distress.
--- NOTE | 2018-05-29 19:23 | General Progress Note ---
Assessment/Plan Problem List: (1) Perforated viscus ICD Codes: R19.8 - Other specified symptoms and signs involving the digestive system and abdomen SNOMED: 39626714, 320256370, 849512239 (2) ESRD (end stage renal disease) on dialysis ICD Codes: N18.6 - End stage renal disease; Z99.2 - Dependence on renal dialysis SNOMED: 796139582 (3) Shock ICD Codes: R57.9 - Shock, unspecified SNOMED: 20811967 (4) Diabetes mellitus out of control ICD Codes: E11.65 - Type 2 diabetes mellitus with hyperglycemia SNOMED: 08552802, 892825475 Assessment/Plan continue BG monitoring and Novolog sliding scale every 4 hours continue Novolog 10 units every 4 hours continue Levemir 20 units bid Subjective ROS Limited/Unobtainable: Yes Allergies: Coded Allergies: No Known Allergies (Unverified , 11/12/12) Subjective extubated on BiPAP Objective Last 24 Hour Vital Signs Date Time Temp Pulse Resp B/P (MAP) Pulse Ox O2 Delivery O2 Flow Rate FiO2 05/29/18 17:05 70 21 100 Full Face 100 05/29/18 17:00 Bi-pap 100 05/29/18 16:00 88 05/29/18 16:00 Mechanical Ventilator Mechanical Ventilator 05/29/18 15:10 78 26 30 05/29/18 13:00 68 21 30 05/29/18 12:00 99.3 65 21 123/73 (90) 100 05/29/18 12:00 58 05/29/18 12:00 Mechanical Ventilator Mechanical Ventilator 05/29/18 12:00 100 05/29/18 12:00 73 22 30 05/29/18 11:07 76 23 30 05/29/18 11:00 73 23 113/60 (77) 100 05/29/18 10:00 75 24 157/55 (89) 100 05/29/18 09:00 66 21 30 05/29/18 09:00 62 19 128/60 (82) 100 05/29/18 08:00 Mechanical Ventilator Mechanical Ventilator 05/29/18 08:00 69 21 127/62 (83) 100 05/29/18 08:00 68 05/29/18 08:00 30 05/29/18 07:10 66 21 30 05/29/18 07:00 99.0 68 21 151/98 (115) 100 05/29/18 06:00 68 21 145/98 (114) 100 05/29/18 05:07 71 18 30 05/29/18 05:00 71 22 128/80 (96) 100 05/29/18 04:00 61 18 125/70 (88) 100 05/29/18 04:00 61 05/29/18 04:00 30 05/29/18 04:00 Mechanical Ventilator Mechanical Ventilator 05/29/18 03:03 61 15 30 05/29/18 03:00 65 15 123/57 (79) 100 05/29/18 02:00 61 17 110/55 (73) 100 05/29/18 01:00 58 18 104/48 (66) 100 05/29/18 00:48 59 18 30 05/29/18 00:00 Mechanical Ventilator Mechanical Ventilator 05/29/18 00:00 30 05/29/18 00:00 98.8 63 21 108/54 (72) 100 05/29/18 00:00 62 05/28/18 23:00 61 18 100/47 (64) 100 05/28/18 22:35 66 23 30 05/28/18 22:00 74 24 155/89 (111) 100 05/28/18 21:36 56 19 30 05/28/18 21:00 99.3 70 22 108/52 (70) 100 05/28/18 20:00 67 20 136/52 (80) 100 05/28/18 20:00 67 05/28/18 20:00 30 05/28/18 20:00 Mechanical Ventilator Mechanical Ventilator 05/28/18 19:45 74 22 30 Intake and Output 05/28/18 05/29/18 19:00 07:00 Intake Total 1914.924 ml 1291.604 ml Output Total 590 ml 115 ml Balance 1324.924 ml 1176.604 ml IV Total 1914.924 ml 1291.604 ml Output Urine Total 135 ml 115 ml Gastric Drainage Total 200 ml Drainage Total 255 ml # Bowel Movements 7 4 Laboratory Tests 05/29/18 05:00: White Blood Count 17.4H, Red Blood Count 2.92L, Hemoglobin 8.6L, Hematocrit 25.3L, Mean Corpuscular Volume 87, Mean Corpuscular Hemoglobin 29.5, Mean Corpuscular Hemoglobin Concent 34.0, Red Cell Distribution Width 15.7H, Platelet Count 93L, Mean Platelet Volume 9.7, Neutrophils (%) (Auto) , Lymphocytes (%) (Auto) , Monocytes (%) (Auto) , Eosinophils (%) (Auto) , Basophils (%) (Auto) , Differential Total Cells Counted 100, Neutrophils % ( Manual) 92H, Lymphocytes % (Manual) 0L, Monocytes % (Manual) 4, Eosinophils % ( Manual) 0, Basophils % (Manual) 0, Band Neutrophils 4, Platelet Estimate DecreasedL, Platelet Morphology Normal, Hypochromasia 1+, Anisocytosis 1+, Prothrombin Time 12.7H, Prothromb Time International Ratio 1.2H, Activated Partial Thromboplast Time 40H, Sodium Level 131L, Potassium Level 2.8L, Chloride Level 93L, Carbon Dioxide Level 20L, Anion Gap 18H, Blood Urea Nitrogen 96H, Creatinine 5.2H, Estimat Glomerular Filtration Rate , Glucose Level 140H, Uric Acid 6.3, Calcium Level 8.0L, Phosphorus Level 5.3H, Magnesium Level 2.4, Total Bilirubin 0.5, Aspartate Amino Transf (AST/SGOT) 23, Alanine Aminotransferase (ALT/SGPT) 11L, Alkaline Phosphatase 97, Ammonia < 10L, Troponin I 0.279H, Pro-B-Type Natriuretic Peptide 34916G, Total Protein 4.2L, Albumin 0.8L, Globulin 3.4, Albumin/Globulin Ratio 0.2L 05/29/18 15:10: Arterial Blood pH 7.341L, Arterial Blood Partial Pressure CO2 48.1H, Arterial Blood Partial Pressure O2 86.7, Arterial Blood HCO3 25.4, Arterial Blood Oxygen Saturation 95.4, Arterial Blood Base Excess -0.6, Luiz Test Positive 05/29/18 17:00: Sodium Level 137, Potassium Level 2.8L, Chloride Level 100, Carbon Dioxide Level 25, Anion Gap 12, Blood Urea Nitrogen 68H, Creatinine 3.8H, Estimat Glomerular Filtration Rate , Glucose Level 152H, Calcium Level 7.8L, Phosphorus Level 4.4, Magnesium Level 2.4, Total Bilirubin 0.4, Aspartate Amino Transf (AST /SGOT) 25, Alanine Aminotransferase (ALT/SGPT) 14, Alkaline Phosphatase 108, Total Protein 4.4L, Albumin 0.9L, Globulin 3.5, Albumin/Globulin Ratio 0.3L, C- Reactive Protein, Quantitative 11.2H Height (Feet): 5 Height (Inches): 5.00 Weight (Pounds): 185 General Appearance: moderate distress Neck: normal alignment Cardiovascular: tachycardia Respiratory/Chest: decreased breath sounds Abdomen: other - wound vac Edema: 1+ Arm (L), 1+ Arm (R), 1+ Leg (L), 1+ Leg (R), 1+ Pedal (L), 1+ Pedal ( R), 1+ Generalized Objective Current Medications Medications (Trade) Dose Ordered Sig/Min Route PRN Reason Start Time Stop Time Status Last Admin Dose Admin Acetaminophen (Tylenol) 650 mg Q4H PRN RECTAL Mild Pain/Temp > 100.5 05/21/18 12:00 06/20/18 11:59 Amiodarone HCl 900 mg/Dextrose 500 ml @ 16.66 mls/ hr Q24H IV 05/28/18 23:00 05/29/18 22:59 05/28/18 23:12 Cefepime HCl 2 gm/ Dextrose 55 ml @ 110 mls/hr Q24H IVPB 05/25/18 13:00 06/01/18 12:59 05/29/18 13:46 Chlorhexidine Gluconate (Tatyana-Hex 2%) 1 applic DAILY@2000 TOPIC 05/12/18 20:00 06/11/18 19:59 05/28/18 20:40 Dextrose 1,000 ml @ 0 mls/hr Q24H PRN IV PN interrupted or unavailable 05/25/18 21:00 06/24/18 20:59 Dextrose (Dextrose 50%) 25 ml Q30M PRN IV Hypoglycemia 05/26/18 12:45 06/25/18 12:44 Dextrose (Dextrose 50%) 50 ml Q30M PRN IV Hypoglycemia 05/26/18 12:45 06/25/18 12:44 Fat Emulsion Intravenous 250 ml/Amino Acids/ Electrolytes/ Dextrose 2,050 ml @ 85.417 mls/ hr Q24H IV 05/28/18 20:00 06/27/18 19:59 05/28/18 21:30 Fluconazole/ Sodium Chloride 100 ml @ 100 mls/hr Q24H IV 05/28/18 18:00 06/04/18 17:59 05/29/18 17:53 Hydrocortisone (Solu-CORTEF) 50 mg EVERY 8 HOURS IV 05/26/18 14:00 06/20/18 21:59 05/29/18 13:45 Hydromorphone HCl (Dilaudid) 1 mg Q2H PRN IVP Severe Pain (Pain Scale 7-10) 05/28/18 08:52 06/02/18 08:51 Insulin Aspart (NovoLOG) EVERY 4 HOURS SUBQ 05/24/18 17:00 06/15/18 20:59 05/29/18 17:56 Insulin Aspart (NovoLOG) 10 units EVERY 4 HOURS SUBQ 05/27/18 09:00 06/25/18 12:59 05/29/18 17:56 Insulin Detemir (Levemir) 20 units Q12HR SUBQ 05/27/18 09:00 06/23/18 17:59 05/29/18 09:47 Levofloxacin 50 ml @ 50 mls/hr Q24H IVPB 05/25/18 13:00 06/01/18 12:59 05/29/18 13:46 Metronidazole 100 ml @ 100 mls/hr Q8HR IVPB 05/25/18 14:00 06/01/18 13:59 05/29/18 13:46 Nitroglycerin (Ntg) 1 patch Q24H TDERMAL 05/29/18 20:00 06/28/18 19:59 Norepinephrine Bitartrate 8 mg/ Dextrose 500 ml @ 0 mls/hr Q24H IV 05/21/18 14:30 06/20/18 14:29 05/27/18 14:30 Ondansetron HCl (Zofran) 4 mg Q6H PRN IVP Nausea & Vomiting 05/15/18 23:30 06/14/18 23:29 Pantoprazole (Protonix) 40 mg EVERY 12 HOURS IVP 05/12/18 21:00 06/10/18 20:59 05/29/18 09:43 Phytonadione (Vitamin K) 10 mg ONCE A WEEK SUBQ 05/25/18 21:00 06/24/18 20:59 05/25/18 20:30 Potassium Chloride 100 ml @ 100 mls/hr Q1H IVPB 05/29/18 20:00 05/30/18 01:59 Vasopressin 100 units/Sodium Chloride 100 ml @ 0 mls/hr Q24H IV 05/22/18 11:30 06/21/18 11:29 05/23/18 17:47 Item Value Date Time Bedside Blood Glucose 140 mg/dl H 05/29/18 1756 Bedside Blood Glucose 140 mg/dl H 05/29/18 1357 Bedside Blood Glucose 162 mg/dl H 05/29/18 0947 Bedside Blood Glucose 137 mg/dl H 05/29/18 0600 Bedside Blood Glucose 123 mg/dl H 05/29/18 0034 Bedside Blood Glucose 123 mg/dl H 05/28/182047 Rashad Koenig MD May 29, 2018 19:23
--- NOTE | 2018-05-29 19:27 | Pulmonolgy Critical Care Note ---
Critical Care - Asmt/Plan Problems: (1) Shock (2) Hypoxemia (3) Elevated d-dimer Assessment & Plan: S/P neg CT-A + UE DVT (4) Hypotension (5) Atrial fibrillation (6) ESRD (end stage renal disease) on dialysis (7) ACS (acute coronary syndrome) (8) Sacral decubitus ulcer, stage III (9) S/P cholecystectomy (10) Serratia sepsis (11) S/P exploratory laparotomy (12) Perforated viscus (13) Thrombocythemia Assessment/Plan: -Off NE -Decrease HC to 25 TID and taper -BiPAP 12/5 qHS and PRN -Titrate down FiO2 to keep SaO2 > 90% -HD per renal as able -Amio gtt per cards/EPS, off Dilt -[facility] held -Monitor platelets, F/U heme recs -Monitor CBC, transfuse as needed -Monitor for bleeding -Flucon, Levaquin, Flagyl and Cefepime per ID, F/U Cx's -NPO , TPN -F/U surgery recs -FC D/W RN and RT CCT 40 Critical Care - Objective Last 24 Hour Vital Signs Date Time Temp Pulse Resp B/P (MAP) Pulse Ox O2 Delivery O2 Flow Rate FiO2 05/29/18 18:00 66 22 109/54 (72) 100 05/29/18 17:05 70 21 100 Full Face 100 05/29/18 17:00 78 22 141/63 (89) 100 05/29/18 17:00 Bi-pap 100 05/29/18 16:00 88 05/29/18 16:00 Mechanical Ventilator Mechanical Ventilator 05/29/18 16:00 99.0 89 23 132/65 (87) 100 05/29/18 15:10 78 26 30 05/29/18 15:00 92 25 165/84 (111) 100 05/29/18 14:00 81 24 138/102 (114) 100 05/29/18 13:00 78 24 138/71 (93) 100 05/29/18 13:00 68 21 30 05/29/18 12:00 99.3 65 21 123/73 (90) 100 05/29/18 12:00 58 05/29/18 12:00 Mechanical Ventilator Mechanical Ventilator 05/29/18 12:00 100 05/29/18 12:00 73 22 30 05/29/18 11:07 76 23 30 05/29/18 11:00 73 23 113/60 (77) 100 05/29/18 10:00 75 24 157/55 (89) 100 05/29/18 09:00 66 21 30 05/29/18 09:00 62 19 128/60 (82) 100 05/29/18 08:00 Mechanical Ventilator Mechanical Ventilator 05/29/18 08:00 69 21 127/62 (83) 100 05/29/18 08:00 68 05/29/18 08:00 30 05/29/18 07:10 66 21 30 05/29/18 07:00 99.0 68 21 151/98 (115) 100 05/29/18 06:00 68 21 145/98 (114) 100 05/29/18 05:07 71 18 30 05/29/18 05:00 71 22 128/80 (96) 100 05/29/18 04:00 61 18 125/70 (88) 100 05/29/18 04:00 61 05/29/18 04:00 30 05/29/18 04:00 Mechanical Ventilator Mechanical Ventilator 05/29/18 03:03 61 15 30 05/29/18 03:00 65 15 123/57 (79) 100 05/29/18 02:00 61 17 110/55 (73) 100 05/29/18 01:00 58 18 104/48 (66) 100 05/29/18 00:48 59 18 30 05/29/18 00:00 Mechanical Ventilator Mechanical Ventilator 05/29/18 00:00 30 05/29/18 00:00 98.8 63 21 108/54 (72) 100 05/29/18 00:00 62 05/28/18 23:00 61 18 100/47 (64) 100 05/28/18 22:35 66 23 30 05/28/18 22:00 74 24 155/89 (111) 100 05/28/18 21:36 56 19 30 05/28/18 21:00 99.3 70 22 108/52 (70) 100 05/28/18 20:00 67 20 136/52 (80) 100 05/28/18 20:00 67 05/28/18 20:00 30 05/28/18 20:00 Mechanical Ventilator Mechanical Ventilator 05/28/18 19:45 74 22 30 Status: awake, other - intubated (at the time of my exam - has been extubated since) Condition: improving HEENT: atraumatic, normocephalic Lungs: clear Heart: HR/BP stable Abdomen: soft, non-tender, active bowel sounds, other - dressed, VELVET Extremities: other - 1+ edema Decubiti: location - sacrum Accucheck: 140 Blood Sugars: BS controlled Critical Care - Subjective ROS Limited/Unobtainable: Yes ICU Day: 15 Intubation Day: 12 Interval Events: Seen multiple times throughout the day Nolberto CPAP and PS trial, extubated to BiPAP Off NE on Amio More awake and alert On TPN O2 needs stable Condition: improving IV Access: central EKG Rhythm: Sinus Rhythm FI02: 100 Vent Support Breath Rate: 16 Vent Support Mode: CPAP Vent Tidal Volume: 500 Sputum Amount: Moderate PEEP: 5.0 PIP: 14 Fluids: SLIV Drips: AMio Tube Feeding Amount: 0 I&O: Intake and Output 05/28/18 05/29/18 19:00 07:00 Intake Total 1914.924 ml 1291.604 ml Output Total 590 ml 115 ml Balance 1324.924 ml 1176.604 ml IV Total 1914.924 ml 1291.604 ml Output Urine Total 135 ml 115 ml Gastric Drainage Total 200 ml Drainage Total 255 ml # Bowel Movements 7 4 Subjective: CROW CXR: stable ET-Tube: 8.5 ET Position: 24 Labs: Laboratory Tests Test 05/29/18 05:00 05/29/18 15:10 05/29/18 17:00 White Blood Count 17.4 K/UL (4.8-10.8) H Red Blood Count 2.92 M/UL (4.70-6.10) L Hemoglobin 8.6 G/DL (14.2-18.0) L Hematocrit 25.3 % (42.0-52.0) L Mean Corpuscular Volume 87 FL (80-99) Mean Corpuscular Hemoglobin 29.5 PG (27.0-31.0) Mean Corpuscular Hemoglobin Concent 34.0 G/DL (32.0-36.0) Red Cell Distribution Width 15.7 % (11.6-14.8) H Platelet Count 93 K/UL (150-450) L Mean Platelet Volume 9.7 FL (6.5-10.1) Neutrophils (%) (Auto) % (45.0-75.0) Lymphocytes (%) (Auto) % (20.0-45.0) Monocytes (%) (Auto) % (1.0-10.0) Eosinophils (%) (Auto) % (0.0-3.0) Basophils (%) (Auto) % (0.0-2.0) Differential Total Cells Counted 100 Neutrophils % (Manual) 92 % (45-75) H Lymphocytes % (Manual) 0 % (20-45) L Monocytes % (Manual) 4 % (1-10) Eosinophils % (Manual) 0 % (0-3) Basophils % (Manual) 0 % (0-2) Band Neutrophils 4 % (0-8) Platelet Estimate Decreased L Platelet Morphology Normal Hypochromasia 1+ Anisocytosis 1+ Prothrombin Time 12.7 SEC (9.30-11.50) H Prothromb Time International Ratio 1.2 (0.9-1.1) H Activated Partial Thromboplast Time 40 SEC (23-33) H Sodium Level 131 MMOL/L (136-145) L 137 MMOL/L (136-145) Potassium Level 2.8 MMOL/L (3.5-5.1) L 2.8 MMOL/L (3.5-5.1) L Chloride Level 93 MMOL/L (98-107) L 100 MMOL/L (98-107) Carbon Dioxide Level 20 MMOL/L (21-32) L 25 MMOL/L (21-32) Anion Gap 18 mmol/L (5-15) H 12 mmol/L (5-15) Blood Urea Nitrogen 96 mg/dL (7-18) H 68 mg/dL (7-18) H Creatinine 5.2 MG/DL (0.55-1.30) H 3.8 MG/DL (0.55-1.30) H Estimat Glomerular Filtration Rate mL/min (>60) mL/min (>60) Glucose Level 140 MG/DL (74-106) H 152 MG/DL (74-106) H Uric Acid 6.3 MG/DL (2.6-7.2) Calcium Level 8.0 MG/DL (8.5-10.1) L 7.8 MG/DL (8.5-10.1) L Phosphorus Level 5.3 MG/DL (2.5-4.9) H 4.4 MG/DL (2.5-4.9) Magnesium Level 2.4 MG/DL (1.8-2.4) 2.4 MG/DL (1.8-2.4) Total Bilirubin 0.5 MG/DL (0.2-1.0) 0.4 MG/DL (0.2-1.0) Aspartate Amino Transf (AST/SGOT) 23 U/L (15-37) 25 U/L (15-37) Alanine Aminotransferase (ALT/SGPT) 11 U/L (12-78) L 14 U/L (12-78) Alkaline Phosphatase 97 U/L (46-116) 108 U/L (46-116) Ammonia < 10 umol/L (11-32) L Troponin I 0.279 ng/mL (0.000-0.056) Pro-B-Type Natriuretic Peptide 58319 pg/mL (0-125) H Total Protein 4.2 G/DL (6.4-8.2) L 4.4 G/DL (6.4-8.2) L Albumin 0.8 G/DL (3.4-5.0) L 0.9 G/DL (3.4-5.0) L Globulin 3.4 g/dL 3.5 g/dL Albumin/Globulin Ratio 0.2 (1.0-2.7) L 0.3 (1.0-2.7) L Arterial Blood pH 7.341 (7.350-7.450) Arterial Blood Partial Pressure CO2 48.1 mmHg (35.0-45.0) H Arterial Blood Partial Pressure O2 86.7 mmHg (75.0-100.0) Arterial Blood HCO3 25.4 mmol/L (22.0-26.0) Arterial Blood Oxygen Saturation 95.4 % (95-100) Arterial Blood Base Excess -0.6 (-2-2) Luiz Test Positive C-Reactive Protein, Quantitative 11.2 mg/dL (0.00-0.90) H Daryl Jones MD May 29, 2018 19:27
--- NOTE | 2018-05-29 19:30 | NUR ---
NURSE NOTES: Rcvd.quiet in Bed Resp.Slight Tachypneic on BIPAP see settings.P.Ox-100%.Lungs scatt.rales/Rh.diminished (R)base.See V/S.Scope SR with 1st degree AVB.IV Amioda.drip in progress at 0.5mg/min.Hx;AF with RVR.NPO.Post-op status.TPN infusion in progress.Donis cath.(R) Femo. intact.S/P HD this am -2L.Pos. chg.
[2018-05-29] MEDS: Dyna-Hex 2% Top Sol 2oz TOPIC SCH (19:50)
[2018-05-29] MEDS: Nitroglycerin Patch 0.4mg TDERMAL SCH (19:50)
[2018-05-29] MEDS: TPN IV SCH (20:17)
[2018-05-29] MEDS: FAT EMULSION 20% IV SCH (20:17)
--- NOTE | 2018-05-29 20:30 | NUR ---
NURSE NOTES: Resp status cont.to deteriorate,desat.B/P drops,Cont.to layne down on monitor.CODED R/T to agonal Resp.Re-intubated by Dr.Coliano SOSA MEANS.Place on same Vent. settings as previously.ABG drawn,see result.Called to .Made aware of Pt.Re-intubation.
--- NOTE | 2018-05-29 21:43 | General Progress Note ---
Assessment/Plan Problem List: (1) ACS (acute coronary syndrome) ICD Codes: I24.9 - Acute ischemic heart disease, unspecified SNOMED: 419979688 (2) ESRD (end stage renal disease) on dialysis ICD Codes: N18.6 - End stage renal disease; Z99.2 - Dependence on renal dialysis SNOMED: 396890412 (3) Depression ICD Codes: F32.9 - Major depressive disorder, single episode, unspecified SNOMED: 63231658 (4) Anemia ICD Codes: D64.9 - Anemia, unspecified SNOMED: 507339831 (5) Sacral decubitus ulcer, stage III ICD Codes: L89.153 - Pressure ulcer of sacral region, stage 3 SNOMED: 059721796, 075557128 (6) Major depression ICD Codes: F32.9 - Major depressive disorder, single episode, unspecified SNOMED: 861780678 (7) anxiety disorder (8) Atrial fibrillation ICD Codes: I48.91 - Unspecified atrial fibrillation SNOMED: 18476141 (9) Hypoxemia ICD Codes: R09.02 - Hypoxemia SNOMED: 740211754 (10) Hypotension ICD Codes: I95.9 - Hypotension, unspecified SNOMED: 41760199 (11) Shock ICD Codes: R57.9 - Shock, unspecified SNOMED: 20363510 (12) Elevated d-dimer ICD Codes: R79.89 - Other specified abnormal findings of blood chemistry SNOMED: 246504851 (13) encephalopathy due to metabolic factor Status: not improved Assessment/Plan respiratory failure on pressors intubated\ borderline bp not improving s/p washout of pus / multiple exploratory lap anemia esrd on hd s/p septic shock arrythmia afebrile abx per id poor prognosis Subjective ROS Limited/Unobtainable: Yes Allergies: Coded Allergies: No Known Allergies (Unverified , 11/12/12) Objective Last 24 Hour Vital Signs Date Time Temp Pulse Resp B/P (MAP) Pulse Ox O2 Delivery O2 Flow Rate FiO2 05/29/18 20:58 80 16 100 05/29/18 19:50 93/50 05/29/18 19:23 67 23 100 Full Face 80 05/29/18 18:00 66 22 109/54 (72) 100 05/29/18 17:05 70 21 100 Full Face 100 05/29/18 17:00 78 22 141/63 (89) 100 05/29/18 17:00 Bi-pap 100 05/29/18 16:00 88 05/29/18 16:00 Mechanical Ventilator Mechanical Ventilator 05/29/18 16:00 99.0 89 23 132/65 (87) 100 05/29/18 15:10 78 26 30 05/29/18 15:00 92 25 165/84 (111) 100 05/29/18 14:00 81 24 138/102 (114) 100 05/29/18 13:00 78 24 138/71 (93) 100 05/29/18 13:00 68 21 30 05/29/18 12:00 99.3 65 21 123/73 (90) 100 05/29/18 12:00 58 05/29/18 12:00 Mechanical Ventilator Mechanical Ventilator 05/29/18 12:00 100 05/29/18 12:00 73 22 30 05/29/18 11:07 76 23 30 05/29/18 11:00 73 23 113/60 (77) 100 05/29/18 10:00 75 24 157/55 (89) 100 05/29/18 09:00 66 21 30 05/29/18 09:00 62 19 128/60 (82) 100 05/29/18 08:00 Mechanical Ventilator Mechanical Ventilator 05/29/18 08:00 69 21 127/62 (83) 100 05/29/18 08:00 68 05/29/18 08:00 30 05/29/18 07:10 66 21 30 05/29/18 07:00 99.0 68 21 151/98 (115) 100 05/29/18 06:00 68 21 145/98 (114) 100 05/29/18 05:07 71 18 30 05/29/18 05:00 71 22 128/80 (96) 100 05/29/18 04:00 61 18 125/70 (88) 100 05/29/18 04:00 61 05/29/18 04:00 30 05/29/18 04:00 Mechanical Ventilator Mechanical Ventilator 05/29/18 03:03 61 15 30 05/29/18 03:00 65 15 123/57 (79) 100 05/29/18 02:00 61 17 110/55 (73) 100 05/29/18 01:00 58 18 104/48 (66) 100 05/29/18 00:48 59 18 30 05/29/18 00:00 Mechanical Ventilator Mechanical Ventilator 05/29/18 00:00 30 05/29/18 00:00 98.8 63 21 108/54 (72) 100 05/29/18 00:00 62 05/28/18 23:00 61 18 100/47 (64) 100 05/28/18 22:35 66 23 30 05/28/18 22:00 74 24 155/89 (111) 100 Intake and Output 05/28/18 05/29/18 19:00 07:00 Intake Total 1914.924 ml 1291.604 ml Output Total 590 ml 115 ml Balance 1324.924 ml 1176.604 ml IV Total 1914.924 ml 1291.604 ml Output Urine Total 135 ml 115 ml Gastric Drainage Total 200 ml Drainage Total 255 ml # Bowel Movements 7 4 Laboratory Tests 05/29/18 05:00: White Blood Count 17.4H, Red Blood Count 2.92L, Hemoglobin 8.6L, Hematocrit 25.3L, Mean Corpuscular Volume 87, Mean Corpuscular Hemoglobin 29.5, Mean Corpuscular Hemoglobin Concent 34.0, Red Cell Distribution Width 15.7H, Platelet Count 93L, Mean Platelet Volume 9.7, Neutrophils (%) (Auto) , Lymphocytes (%) (Auto) , Monocytes (%) (Auto) , Eosinophils (%) (Auto) , Basophils (%) (Auto) , Differential Total Cells Counted 100, Neutrophils % ( Manual) 92H, Lymphocytes % (Manual) 0L, Monocytes % (Manual) 4, Eosinophils % ( Manual) 0, Basophils % (Manual) 0, Band Neutrophils 4, Platelet Estimate DecreasedL, Platelet Morphology Normal, Hypochromasia 1+, Anisocytosis 1+, Prothrombin Time 12.7H, Prothromb Time International Ratio 1.2H, Activated Partial Thromboplast Time 40H, Sodium Level 131L, Potassium Level 2.8L, Chloride Level 93L, Carbon Dioxide Level 20L, Anion Gap 18H, Blood Urea Nitrogen 96H, Creatinine 5.2H, Estimat Glomerular Filtration Rate , Glucose Level 140H, Uric Acid 6.3, Calcium Level 8.0L, Phosphorus Level 5.3H, Magnesium Level 2.4, Total Bilirubin 0.5, Aspartate Amino Transf (AST/SGOT) 23, Alanine Aminotransferase (ALT/SGPT) 11L, Alkaline Phosphatase 97, Ammonia < 10L, Troponin I 0.279H, Pro-B-Type Natriuretic Peptide 25988R, Total Protein 4.2L, Albumin 0.8L, Globulin 3.4, Albumin/Globulin Ratio 0.2L 05/29/18 15:10: Arterial Blood pH 7.341L, Arterial Blood Partial Pressure CO2 48.1H, Arterial Blood Partial Pressure O2 86.7, Arterial Blood HCO3 25.4, Arterial Blood Oxygen Saturation 95.4, Arterial Blood Base Excess -0.6, Luiz Test Positive 05/29/18 17:00: Sodium Level 137, Potassium Level 2.8L, Chloride Level 100, Carbon Dioxide Level 25, Anion Gap 12, Blood Urea Nitrogen 68H, Creatinine 3.8H, Estimat Glomerular Filtration Rate , Glucose Level 152H, Calcium Level 7.8L, Phosphorus Level 4.4, Magnesium Level 2.4, Total Bilirubin 0.4, Aspartate Amino Transf (AST /SGOT) 25, Alanine Aminotransferase (ALT/SGPT) 14, Alkaline Phosphatase 108, Total Protein 4.4L, Albumin 0.9L, Globulin 3.5, Albumin/Globulin Ratio 0.3L, C- Reactive Protein, Quantitative 11.2H Height (Feet): 5 Height (Inches): 5.00 Weight (Pounds): 185 General Appearance: lethargic, confused Abdomen: tender Samantha Head MD May 29, 2018 21:43
--- NOTE | 2018-05-29 22:30 | NUR ---
NURSE NOTES: Hs care rendered.More awake and responsive.Due meds admin.See Latest FSBS covered.Cont.on TPN infusion.
[2018-05-30] VITALS (24 sets, daily range): BP systolic 104–155; BP diastolic 58–92
--- NOTE | 2018-05-30 00:10 | NUR ---
NURSE NOTES: Repositioned,kept comfortable.Suctioned.See V/S.Scope rhythm same.Cont. to be more responsive.Close monitoring.
[2018-05-30] MEDS: NovoLOG Insulin Flexpen SUBQ SCH ×12 (00:33→20:57)
--- NOTE | 2018-05-30 02:15 | NUR ---
NURSE NOTES: Suctioned,NS Lavaged.P.Ox-100%.Pos. chg.Nolberto.Vent.settings.No distress.
--- NOTE | 2018-05-30 04:20 | NUR ---
NURSE NOTES: Blood rawn for cbc/cmp/bnp/crp etc.spec.to lab.Dahiana Kelly.Loretta wd.Tx.done,dcTLC (L) JENS CATH .(R) FEMO.aseptically cleanse kelly.
[2018-05-30] MEDS: Hydrocortisone 100mg Inj IV SCH ×3 (05:44→22:10)
--- NOTE | 2018-05-30 06:49 | NUR ---
RESPIRATORY NOTE: Patient received mechanically ventilated on PB 840 with current ordered vent settings. Patient is orally intubated with EET tube size 7.5 with 23cm at the lip and it is secured with an anchor fast. Bilateral coarse breath sounds were present upon auscultation and small amount to thick white secretions were suctioned without incident. There is an ambu bag available at the bedside and the vent is connected to a red outlet. Vent alarms are functional and audible. Will continue to monitor.
--- NOTE | 2018-05-30 07:24 | NUR ---
HAND-OFF: Report given to MINGO LEBRON.
[2018-05-30 07:28] LABS: HEMATOCRIT 23.6 % (42.0-52.0); HEMOGLOBIN 7.9 G/DL (14.2-18.0); MEAN CORPUSCULAR VOLUME 87 FL (80-99); PLATELET COUNT 98 K/UL (150-450); RED BLOOD COUNT 2.71 M/UL (4.70-6.10); RED CELL DISTRIBUTION WIDTH 15.9 % (11.6-14.8); WHITE BLOOD COUNT 17.4 K/UL (4.8-10.8)
[2018-05-30 07:49] LABS: ALANINE AMINOTRANSFERASE 11 U/L (12-78); ALBUMIN 0.8 G/DL (3.4-5.0); ALBUMIN/GLOBULIN RATIO 0.2 (1.0-2.7); ALKALINE PHOSPHATASE 107 U/L (46-116); ANION GAP 13 mmol/L (5-15); ASPARTATE AMINO TRANSFERASE 29 U/L (15-37); BILIRUBIN,TOTAL 0.3 MG/DL (0.2-1.0); BLOOD UREA NITROGEN 78 mg/dL (7-18); CALCIUM 7.7 MG/DL (8.5-10.1); CARBON DIOXIDE 24 MMOL/L (21-32); CHLORIDE 98 MMOL/L (98-107); CREATININE 4.2 MG/DL (0.55-1.30); POTASSIUM 3.7 MMOL/L (3.5-5.1); SODIUM 135 MMOL/L (136-145)
--- NOTE | 2018-05-30 08:02 | NUR ---
NURSE NOTES: R.T HERE TO TAKE ABG'S FROM PT. ASKED ABOUT DRAW FROM LFT WRIST,SINCE PREVIOUSLY USED. THERE IS AN OLD H.D ACCESS, DECISION MADE TO DRAW FROM RT WRIST INSTEAD. NOTED SWELLING PRESENT, WILL APPLY FIRM PRESSURE AND COLD COMPRESS POST DRAW.
--- NOTE | 2018-05-30 08:57 | Infectious Diseases Prog Note ---
Assessment/Plan Assessment/Plan A: 1. serratia , Enterobacter sepsis with shock 2. VRE colonization 3. diabetes mellitus 4. hypertension 5. 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 leucocytosis 6. A fib with RVR 7. Small bowel perforation 8. Perioperative respiratory failure 9. Atelectasis versus Pneumonia 10 Peritonitis with Citrobacter & Serratia 11. sepsis, septic shock 12. Lactic acidosis 13. Anemia 14. Anastomosis leak 15. Hypokalemia P 1. continue Cefepime , Flagyl , Levaquin & Fluconazole 2.Continue TPN Subjective ROS Limited/Unobtainable: Yes Constitutional: Reports: other - afebrile Gastrointestinal/Abdominal: Reports: other - on TPN Allergies: Coded Allergies: No Known Allergies (Unverified , 11/12/12) Objective Vital Signs Last 24 Hour Vital Signs Date Time Temp Pulse Resp B/P (MAP) Pulse Ox O2 Delivery O2 Flow Rate FiO2 05/30/18 08:00 Mechanical Ventilator Endotracheal Tube Mechanical Ventilator 05/30/18 08:00 40 05/30/18 07:00 64 23 126/70 (88) 100 05/30/18 06:45 68 25 40 05/30/18 06:00 62 4 141/64 (89) 100 05/30/18 05:29 65 25 40 05/30/18 05:00 66 26 133/65 (87) 100 05/30/18 04:00 63 05/30/18 04:00 40 05/30/18 04:00 Mechanical Ventilator Bi-pap Mechanical Ventilator 05/30/18 04:00 99.2 63 26 126/85 (99) 100 05/30/18 03:02 67 27 40 05/30/18 03:00 65 26 126/92 (103) 100 05/30/18 02:00 56 25 146/64 (91) 100 05/30/18 01:00 70 16 50 05/30/18 01:00 63 25 122/79 (93) 100 05/30/18 00:00 62 05/30/18 00:00 50 05/30/18 00:00 Mechanical Ventilator Bi-pap Mechanical Ventilator 05/30/18 00:00 62 25 104/60 (75) 100 05/29/18 23:00 71 20 98/78 (85) 99 05/29/18 23:00 68 19 50 05/29/18 22:00 98 21 124/83 (97) 97 05/29/18 21:00 80 16 64/34 (44) 99 05/29/18 20:58 80 16 100 05/29/18 20:30 100 05/29/18 20:30 53 21 88/44 (59) 93 05/29/18 20:00 99.2 59 23 97/47 (64) 96 05/29/18 20:00 Mechanical Ventilator Bi-pap Mechanical Ventilator 05/29/18 20:00 30 05/29/18 20:00 59 05/29/18 19:50 93/50 05/29/18 19:23 67 23 100 Full Face 80 05/29/18 19:00 64 23 103/51 (68) 100 05/29/18 18:00 66 22 109/54 (72) 100 05/29/18 17:05 70 21 100 Full Face 100 05/29/18 17:00 78 22 141/63 (89) 100 05/29/18 17:00 Bi-pap 100 05/29/18 16:00 88 05/29/18 16:00 Mechanical Ventilator Mechanical Ventilator 05/29/18 16:00 99.0 89 23 132/65 (87) 100 05/29/18 15:10 78 26 30 05/29/18 15:00 92 25 165/84 (111) 100 05/29/18 14:00 81 24 138/102 (114) 100 05/29/18 13:00 78 24 138/71 (93) 100 05/29/18 13:00 68 21 30 05/29/18 12:00 99.3 65 21 123/73 (90) 100 05/29/18 12:00 58 05/29/18 12:00 Mechanical Ventilator Mechanical Ventilator 05/29/18 12:00 100 05/29/18 12:00 73 22 30 05/29/18 11:07 76 23 30 05/29/18 11:00 73 23 113/60 (77) 100 05/29/18 10:00 75 24 157/55 (89) 100 05/29/18 09:00 66 21 30 05/29/18 09:00 62 19 128/60 (82) 100 Height (Feet): 5 Height (Inches): 5.00 Weight (Pounds): 185 HEENT: other - orally intubated Cardiovascular: normal rate, other - left subclavian central line, R femoral HD line Abdomen: other - midline dressing, bilateral lower abdominal drains Extremities: other - edema of hands Neurologic/Psychiatric: other - sleeping Laboratory Tests Test 05/29/18 15:10 05/29/18 17:00 05/29/18 21:47 05/30/18 05:00 Arterial Blood pH 7.341 (7.350-7.450) 7.306 (7.350-7.450) Arterial Blood Partial Pressure CO2 48.1 mmHg (35.0-45.0) H 46.6 mmHg (35.0-45.0) H Arterial Blood Partial Pressure O2 86.7 mmHg (75.0-100.0) 410.2 mmHg (75.0-100.0) H Arterial Blood HCO3 25.4 mmol/L (22.0-26.0) 22.7 mmol/L (22.0-26.0) Arterial Blood Oxygen Saturation 95.4 % (95-100) 99.2 % (95-100) Arterial Blood Base Excess -0.6 (-2-2) -3.6 (-2-2) L Luiz Test Positive Positive Sodium Level 137 MMOL/L (136-145) 135 MMOL/L (136-145) L Potassium Level 2.8 MMOL/L (3.5-5.1) L 3.7 MMOL/L (3.5-5.1) Chloride Level 100 MMOL/L (98-107) 98 MMOL/L (98-107) Carbon Dioxide Level 25 MMOL/L (21-32) 24 MMOL/L (21-32) Anion Gap 12 mmol/L (5-15) 13 mmol/L (5-15) Blood Urea Nitrogen 68 mg/dL (7-18) H 78 mg/dL (7-18) H Creatinine 3.8 MG/DL (0.55-1.30) H 4.2 MG/DL (0.55-1.30) H Estimat Glomerular Filtration Rate mL/min (>60) mL/min (>60) Glucose Level 152 MG/DL (74-106) H 89 MG/DL (74-106) Calcium Level 7.8 MG/DL (8.5-10.1) L 7.7 MG/DL (8.5-10.1) L Phosphorus Level 4.4 MG/DL (2.5-4.9) 4.0 MG/DL (2.5-4.9) Magnesium Level 2.4 MG/DL (1.8-2.4) 2.5 MG/DL (1.8-2.4) H Total Bilirubin 0.4 MG/DL (0.2-1.0) 0.3 MG/DL (0.2-1.0) Aspartate Amino Transf (AST/SGOT) 25 U/L (15-37) 29 U/L (15-37) Alanine Aminotransferase (ALT/SGPT) 14 U/L (12-78) 11 U/L (12-78) L Alkaline Phosphatase 108 U/L (46-116) 107 U/L (46-116) C-Reactive Protein, Quantitative 11.2 mg/dL (0.00-0.90) H 8.0 mg/dL (0.00-0.90) H Total Protein 4.4 G/DL (6.4-8.2) L 4.2 G/DL (6.4-8.2) L Albumin 0.9 G/DL (3.4-5.0) L 0.8 G/DL (3.4-5.0) L Globulin 3.5 g/dL 3.4 g/dL Albumin/Globulin Ratio 0.3 (1.0-2.7) L 0.2 (1.0-2.7) L White Blood Count 17.4 K/UL (4.8-10.8) H Red Blood Count 2.71 M/UL (4.70-6.10) L Hemoglobin 7.9 G/DL (14.2-18.0) L Hematocrit 23.6 % (42.0-52.0) L Mean Corpuscular Volume 87 FL (80-99) Mean Corpuscular Hemoglobin 29.1 PG (27.0-31.0) Mean Corpuscular Hemoglobin Concent 33.4 G/DL (32.0-36.0) Red Cell Distribution Width 15.9 % (11.6-14.8) H Platelet Count 98 K/UL (150-450) L Mean Platelet Volume 10.1 FL (6.5-10.1) Neutrophils (%) (Auto) % (45.0-75.0) Lymphocytes (%) (Auto) % (20.0-45.0) Monocytes (%) (Auto) % (1.0-10.0) Eosinophils (%) (Auto) % (0.0-3.0) Basophils (%) (Auto) % (0.0-2.0) Neutrophils % (Manual) Pending Lymphocytes % (Manual) Pending Platelet Estimate Pending Platelet Morphology Pending Uric Acid 5.1 MG/DL (2.6-7.2) Troponin I 0.244 ng/mL (0.000-0.056) Pro-B-Type Natriuretic Peptide 31911 pg/mL (0-125) H Test 05/30/18 08:00 Arterial Blood pH 7.410 (7.350-7.450) Arterial Blood Partial Pressure CO2 35.7 mmHg (35.0-45.0) Arterial Blood Partial Pressure O2 97.8 mmHg (75.0-100.0) Arterial Blood HCO3 22.2 mmol/L (22.0-26.0) Arterial Blood Oxygen Saturation 96.9 % (95-100) Arterial Blood Base Excess -2.1 (-2-2) L Luiz Test Positive Current Medications Medications (Trade) Dose Ordered Sig/Min Route PRN Reason Start Time Stop Time Status Last Admin Dose Admin Acetaminophen (Tylenol) 650 mg Q4H PRN RECTAL Mild Pain/Temp > 100.5 05/21/18 12:00 06/20/18 11:59 Cefepime HCl 2 gm/ Dextrose 55 ml @ 110 mls/hr Q24H IVPB 05/25/18 13:00 06/01/18 12:59 05/29/18 13:46 Chlorhexidine Gluconate (Tatyana-Hex 2%) 1 applic DAILY@2000 TOPIC 05/12/18 20:00 06/11/18 19:59 05/29/18 19:50 Dextrose 1,000 ml @ 0 mls/hr Q24H PRN IV PN interrupted or unavailable 05/25/18 21:00 06/24/18 20:59 Dextrose (Dextrose 50%) 25 ml Q30M PRN IV Hypoglycemia 05/26/18 12:45 06/25/18 12:44 Dextrose (Dextrose 50%) 50 ml Q30M PRN IV Hypoglycemia 05/26/18 12:45 06/25/18 12:44 Fat Emulsion Intravenous 250 ml/Amino Acids/ Electrolytes/ Dextrose 2,050 ml @ 85.417 mls/ hr Q24H IV 05/28/18 20:00 06/27/18 19:59 05/29/18 20:17 Fluconazole/ Sodium Chloride 100 ml @ 100 mls/hr Q24H IV 05/28/18 18:00 06/04/18 17:59 05/29/18 17:53 Hydrocortisone (Solu-CORTEF) 25 mg EVERY 8 HOURS IV 05/29/18 22:00 06/20/18 21:59 05/30/18 05:44 Hydromorphone HCl (Dilaudid) 1 mg Q2H PRN IVP Severe Pain (Pain Scale 7-10) 05/28/18 08:52 06/02/18 08:51 Insulin Aspart (NovoLOG) EVERY 4 HOURS SUBQ 05/24/18 17:00 06/15/18 20:59 05/30/18 05:44 Insulin Aspart (NovoLOG) 10 units EVERY 4 HOURS SUBQ 05/27/18 09:00 06/25/18 12:59 05/30/18 05:41 Insulin Detemir (Levemir) 20 units Q12HR SUBQ 05/27/18 09:00 06/23/18 17:59 05/29/18 21:16 Levofloxacin 50 ml @ 50 mls/hr Q24H IVPB 05/25/18 13:00 06/01/18 12:59 05/29/18 13:46 Metronidazole 100 ml @ 100 mls/hr Q8HR IVPB 05/25/18 14:00 06/01/18 13:59 05/30/18 05:45 Nitroglycerin (Ntg) 1 patch Q24H TDERMAL 05/29/18 20:00 06/28/18 19:59 05/29/18 19:50 Norepinephrine Bitartrate 8 mg/ Dextrose 500 ml @ 0 mls/hr Q24H IV 05/21/18 14:30 06/20/18 14:29 05/27/18 14:30 Ondansetron HCl (Zofran) 4 mg Q6H PRN IVP Nausea & Vomiting 05/15/18 23:30 06/14/18 23:29 Pantoprazole (Protonix) 40 mg EVERY 12 HOURS IVP 05/12/18 21:00 06/10/18 20:59 05/29/18 21:14 Phytonadione (Vitamin K) 10 mg ONCE A WEEK SUBQ 05/25/18 21:00 06/24/18 20:59 05/25/18 20:30 Vasopressin 100 units/Sodium Chloride 100 ml @ 0 mls/hr Q24H IV 05/22/18 11:30 06/21/18 11:29 05/23/18 17:47 Romie Hooks MD May 30, 2018 08:57
--- NOTE | 2018-05-30 09:03 | General Progress Note ---
Assessment/Plan Assessment/Plan (1) Abdominal pain (2) S/p Lap Cholecystectomy (3) Encephalopathy /septic shock (4) ESRD on hemodialysis (5) S/p emergent exploratory laboratory small bowel resection omentectomy due to small bowel perforation in distal ileum Patient to be continued on Dilaudid and Tylenol. Parameters to be continued. D/w Dr. Busby and he concurred. Subjective Date patient seen: May 30, 2018 Time patient seen: 08:15 - am ROS Limited/Unobtainable: Yes Allergies: Coded Allergies: No Known Allergies (Unverified , 11/12/12) Subjective Patient is in bed and intubated on vent. No Dilaudid has been given in the last 24hrs. He shows no signs of pain or distress at this time. Objective Last 24 Hour Vital Signs Date Time Temp Pulse Resp B/P (MAP) Pulse Ox O2 Delivery O2 Flow Rate FiO2 05/30/18 08:00 Mechanical Ventilator Endotracheal Tube Mechanical Ventilator 05/30/18 08:00 40 05/30/18 07:00 64 23 126/70 (88) 100 05/30/18 06:45 68 25 40 05/30/18 06:00 62 4 141/64 (89) 100 05/30/18 05:29 65 25 40 05/30/18 05:00 66 26 133/65 (87) 100 05/30/18 04:00 63 05/30/18 04:00 40 05/30/18 04:00 Mechanical Ventilator Bi-pap Mechanical Ventilator 05/30/18 04:00 99.2 63 26 126/85 (99) 100 05/30/18 03:02 67 27 40 05/30/18 03:00 65 26 126/92 (103) 100 05/30/18 02:00 56 25 146/64 (91) 100 05/30/18 01:00 70 16 50 05/30/18 01:00 63 25 122/79 (93) 100 05/30/18 00:00 62 05/30/18 00:00 50 05/30/18 00:00 Mechanical Ventilator Bi-pap Mechanical Ventilator 05/30/18 00:00 62 25 104/60 (75) 100 05/29/18 23:00 71 20 98/78 (85) 99 05/29/18 23:00 68 19 50 05/29/18 22:00 98 21 124/83 (97) 97 05/29/18 21:00 80 16 64/34 (44) 99 05/29/18 20:58 80 16 100 05/29/18 20:30 100 05/29/18 20:30 53 21 88/44 (59) 93 05/29/18 20:00 99.2 59 23 97/47 (64) 96 05/29/18 20:00 Mechanical Ventilator Bi-pap Mechanical Ventilator 05/29/18 20:00 30 05/29/18 20:00 59 05/29/18 19:50 93/50 05/29/18 19:23 67 23 100 Full Face 80 05/29/18 19:00 64 23 103/51 (68) 100 05/29/18 18:00 66 22 109/54 (72) 100 05/29/18 17:05 70 21 100 Full Face 100 05/29/18 17:00 78 22 141/63 (89) 100 05/29/18 17:00 Bi-pap 100 05/29/18 16:00 88 05/29/18 16:00 Mechanical Ventilator Mechanical Ventilator 05/29/18 16:00 99.0 89 23 132/65 (87) 100 05/29/18 15:10 78 26 30 05/29/18 15:00 92 25 165/84 (111) 100 05/29/18 14:00 81 24 138/102 (114) 100 05/29/18 13:00 78 24 138/71 (93) 100 05/29/18 13:00 68 21 30 05/29/18 12:00 99.3 65 21 123/73 (90) 100 05/29/18 12:00 58 05/29/18 12:00 Mechanical Ventilator Mechanical Ventilator 05/29/18 12:00 100 05/29/18 12:00 73 22 30 05/29/18 11:07 76 23 30 05/29/18 11:00 73 23 113/60 (77) 100 05/29/18 10:00 75 24 157/55 (89) 100 Intake and Output 05/29/18 05/30/18 19:00 07:00 Intake Total 1653.681 ml 1425.004 ml Output Total 2250 ml 410 ml Balance -596.319 ml 1015.004 ml IV Total 1653.681 ml 1425.004 ml Output Urine Total 25 ml 10 ml Drainage Total 225 ml 400 ml Hemodialysis UF 2000 ml # Bowel Movements 4 4 Laboratory Tests 05/29/18 15:10: Arterial Blood pH 7.341L, Arterial Blood Partial Pressure CO2 48.1H, Arterial Blood Partial Pressure O2 86.7, Arterial Blood HCO3 25.4, Arterial Blood Oxygen Saturation 95.4, Arterial Blood Base Excess -0.6, Luiz Test Positive 05/29/18 17:00: Sodium Level 137, Potassium Level 2.8L, Chloride Level 100, Carbon Dioxide Level 25, Anion Gap 12, Blood Urea Nitrogen 68H, Creatinine 3.8H, Estimat Glomerular Filtration Rate , Glucose Level 152H, Calcium Level 7.8L, Phosphorus Level 4.4, Magnesium Level 2.4, Total Bilirubin 0.4, Aspartate Amino Transf (AST /SGOT) 25, Alanine Aminotransferase (ALT/SGPT) 14, Alkaline Phosphatase 108, C- Reactive Protein, Quantitative 11.2H, Total Protein 4.4L, Albumin 0.9L, Globulin 3.5, Albumin/Globulin Ratio 0.3L 05/29/18 21:47: Arterial Blood pH 7.306L, Arterial Blood Partial Pressure CO2 46.6H, Arterial Blood Partial Pressure O2 410.2H, Arterial Blood HCO3 22.7, Arterial Blood Oxygen Saturation 99.2, Arterial Blood Base Excess -3.6L, Luiz Test Positive 05/30/18 05:00: Sodium Level 135L, Potassium Level 3.7, Chloride Level 98, Carbon Dioxide Level 24, Anion Gap 13, Blood Urea Nitrogen 78H, Creatinine 4.2H, Estimat Glomerular Filtration Rate , Glucose Level 89, Calcium Level 7.7L, Phosphorus Level 4.0, Magnesium Level 2.5H, Total Bilirubin 0.3, Aspartate Amino Transf (AST/SGOT) 29 , Alanine Aminotransferase (ALT/SGPT) 11L, Alkaline Phosphatase 107, C-Reactive Protein, Quantitative 8.0H, Total Protein 4.2L, Albumin 0.8L, Globulin 3.4, Albumin/Globulin Ratio 0.2L, White Blood Count 17.4H, Red Blood Count 2.71L, Hemoglobin 7.9L, Hematocrit 23.6L, Mean Corpuscular Volume 87, Mean Corpuscular Hemoglobin 29.1, Mean Corpuscular Hemoglobin Concent 33.4, Red Cell Distribution Width 15.9H, Platelet Count 98L, Mean Platelet Volume 10.1, Neutrophils (%) (Auto) , Lymphocytes (%) (Auto) , Monocytes (%) (Auto) , Eosinophils (%) (Auto) , Basophils (%) (Auto) , Neutrophils % (Manual) [Pending] , Lymphocytes % (Manual) [Pending], Platelet Estimate [Pending], Platelet Morphology [Pending], Uric Acid 5.1, Troponin I 0.244H, Pro-B-Type Natriuretic Peptide [id number] 05/30/18 08:00: Arterial Blood pH 7.410, Arterial Blood Partial Pressure CO2 35.7, Arterial Blood Partial Pressure O2 97.8, Arterial Blood HCO3 22.2, Arterial Blood Oxygen Saturation 96.9, Arterial Blood Base Excess -2.1L, Luiz Test Positive Height (Feet): 5 Height (Inches): 5.00 Weight (Pounds): 185 Objective GENERAL: Intubated. LUNGS: Decreased breath sounds bilaterally. HEART: S1 S2 Regular. ABDOMEN: Bandages applied with drains noted. EXTREMITIES: No cyanosis. No clubbing. Sid Holland May 30, 2018 09:03
--- NOTE | 2018-05-30 09:10 | NUR ---
NURSE NOTES: MD RAE HERE TO SEE PT. RECEIVED ORDER TO INPUT D/C TAVARES., WILL PLACE ADDITIONAL ORDERS.
--- NOTE | 2018-05-30 09:15 | NUR ---
NURSE NOTES: CALLED PHARMACY TO REFILL NOVOLOG PEN, USED 14UNITS FROM NEW PEN.
--- NOTE | 2018-05-30 09:59 | Nephrology Progress Note ---
Assessment/Plan Problem List: (1) ESRD (end stage renal disease) on dialysis (2) Perforated bowel (3) Hyponatremia (4) Major depression (5) Nausea & vomiting (6) H/O abdominal surgery Assessment: recent (7) Shock Assessment recent abdominal surgery hemodynamically stablized over night Presents with CHF and Low Na ESRD ACS DM HTN h/o GI bleed Depression Plan extubated but reintubated off pressors on TPN- adjust Na and K and Mag in TPN HD 05/29 - 2 liters remove transfused 2 units- next HD in am aim to correct lytes on steroids vented insulin for high BS hold dig , check levels, resume as needed Has abd surgery 05/15 Perforated bowel graft clotted , has a femoral felice right HOLD ALL MIND ALTERING MEDS - DC all po meds FLUID CHALLENGE pressors as needed BP HR Pain control discussed with RN and Dr Jones IV protonix Subjective ROS Limited/Unobtainable: Yes Objective Objective Last 24 Hour Vital Signs Date Time Temp Pulse Resp B/P (MAP) Pulse Ox O2 Delivery O2 Flow Rate FiO2 05/30/18 08:35 67 25 40 05/30/18 08:00 Mechanical Ventilator Endotracheal Tube Mechanical Ventilator 05/30/18 08:00 40 05/30/18 07:00 64 23 126/70 (88) 100 05/30/18 06:45 68 25 40 05/30/18 06:00 62 4 141/64 (89) 100 05/30/18 05:29 65 25 40 05/30/18 05:00 66 26 133/65 (87) 100 05/30/18 04:00 63 05/30/18 04:00 40 05/30/18 04:00 Mechanical Ventilator Bi-pap Mechanical Ventilator 05/30/18 04:00 99.2 63 26 126/85 (99) 100 05/30/18 03:02 67 27 40 05/30/18 03:00 65 26 126/92 (103) 100 05/30/18 02:00 56 25 146/64 (91) 100 05/30/18 01:00 70 16 50 05/30/18 01:00 63 25 122/79 (93) 100 05/30/18 00:00 62 05/30/18 00:00 50 05/30/18 00:00 Mechanical Ventilator Bi-pap Mechanical Ventilator 05/30/18 00:00 62 25 104/60 (75) 100 05/29/18 23:00 71 20 98/78 (85) 99 05/29/18 23:00 68 19 50 05/29/18 22:00 98 21 124/83 (97) 97 05/29/18 21:00 80 16 64/34 (44) 99 05/29/18 20:58 80 16 100 05/29/18 20:30 100 05/29/18 20:30 53 21 88/44 (59) 93 05/29/18 20:00 99.2 59 23 97/47 (64) 96 05/29/18 20:00 Mechanical Ventilator Bi-pap Mechanical Ventilator 05/29/18 20:00 30 05/29/18 20:00 59 05/29/18 19:50 93/50 05/29/18 19:23 67 23 100 Full Face 80 05/29/18 19:00 64 23 103/51 (68) 100 05/29/18 18:00 66 22 109/54 (72) 100 05/29/18 17:05 70 21 100 Full Face 100 05/29/18 17:00 78 22 141/63 (89) 100 05/29/18 17:00 Bi-pap 100 05/29/18 16:00 88 05/29/18 16:00 Mechanical Ventilator Mechanical Ventilator 05/29/18 16:00 99.0 89 23 132/65 (87) 100 05/29/18 15:10 78 26 30 05/29/18 15:00 92 25 165/84 (111) 100 05/29/18 14:00 81 24 138/102 (114) 100 05/29/18 13:00 78 24 138/71 (93) 100 05/29/18 13:00 68 21 30 05/29/18 12:00 99.3 65 21 123/73 (90) 100 05/29/18 12:00 58 05/29/18 12:00 Mechanical Ventilator Mechanical Ventilator 05/29/18 12:00 100 05/29/18 12:00 73 22 30 05/29/18 11:07 76 23 30 05/29/18 11:00 73 23 113/60 (77) 100 05/29/18 10:00 75 24 157/55 (89) 100 Intake and Output 05/29/18 05/30/18 19:00 07:00 Intake Total 1653.681 ml 1425.004 ml Output Total 2250 ml 410 ml Balance -596.319 ml 1015.004 ml IV Total 1653.681 ml 1425.004 ml Output Urine Total 25 ml 10 ml Drainage Total 225 ml 400 ml Hemodialysis UF 2000 ml # Bowel Movements 4 4 Laboratory Tests 05/29/18 15:10: Arterial Blood pH 7.341L, Arterial Blood Partial Pressure CO2 48.1H, Arterial Blood Partial Pressure O2 86.7, Arterial Blood HCO3 25.4, Arterial Blood Oxygen Saturation 95.4, Arterial Blood Base Excess -0.6, Luiz Test Positive 05/29/18 17:00: Sodium Level 137, Potassium Level 2.8L, Chloride Level 100, Carbon Dioxide Level 25, Anion Gap 12, Blood Urea Nitrogen 68H, Creatinine 3.8H, Estimat Glomerular Filtration Rate , Glucose Level 152H, Calcium Level 7.8L, Phosphorus Level 4.4, Magnesium Level 2.4, Total Bilirubin 0.4, Aspartate Amino Transf (AST /SGOT) 25, Alanine Aminotransferase (ALT/SGPT) 14, Alkaline Phosphatase 108, C- Reactive Protein, Quantitative 11.2H, Total Protein 4.4L, Albumin 0.9L, Globulin 3.5, Albumin/Globulin Ratio 0.3L 05/29/18 21:47: Arterial Blood pH 7.306L, Arterial Blood Partial Pressure CO2 46.6H, Arterial Blood Partial Pressure O2 410.2H, Arterial Blood HCO3 22.7, Arterial Blood Oxygen Saturation 99.2, Arterial Blood Base Excess -3.6L, Luiz Test Positive 05/30/18 05:00: Sodium Level 135L, Potassium Level 3.7, Chloride Level 98, Carbon Dioxide Level 24, Anion Gap 13, Blood Urea Nitrogen 78H, Creatinine 4.2H, Estimat Glomerular Filtration Rate , Glucose Level 89, Calcium Level 7.7L, Phosphorus Level 4.0, Magnesium Level 2.5H, Total Bilirubin 0.3, Aspartate Amino Transf (AST/SGOT) 29 , Alanine Aminotransferase (ALT/SGPT) 11L, Alkaline Phosphatase 107, C-Reactive Protein, Quantitative 8.0H, Total Protein 4.2L, Albumin 0.8L, Globulin 3.4, Albumin/Globulin Ratio 0.2L, White Blood Count 17.4H, Red Blood Count 2.71L, Hemoglobin 7.9L, Hematocrit 23.6L, Mean Corpuscular Volume 87, Mean Corpuscular Hemoglobin 29.1, Mean Corpuscular Hemoglobin Concent 33.4, Red Cell Distribution Width 15.9H, Platelet Count 98L, Mean Platelet Volume 10.1, Neutrophils (%) (Auto) , Lymphocytes (%) (Auto) , Monocytes (%) (Auto) , Eosinophils (%) (Auto) , Basophils (%) (Auto) , Neutrophils % (Manual) [Pending] , Lymphocytes % (Manual) [Pending], Platelet Estimate [Pending], Platelet Morphology [Pending], Uric Acid 5.1, Troponin I 0.244H, Pro-B-Type Natriuretic Peptide [id number] 05/30/18 08:00: Arterial Blood pH 7.410, Arterial Blood Partial Pressure CO2 35.7, Arterial Blood Partial Pressure O2 97.8, Arterial Blood HCO3 22.2, Arterial Blood Oxygen Saturation 96.9, Arterial Blood Base Excess -2.1L, Luiz Test Positive Height (Feet): 5 Height (Inches): 5.00 Weight (Pounds): 185 General Appearance: no apparent distress EENT: other - vented Cardiovascular: normal rate Respiratory/Chest: decreased breath sounds Abdomen: distended Objective no change Maurilio Arroyo MD May 30, 2018 09:58
--- NOTE | 2018-05-30 10:12 | Cardiac Electrophysiology PN ---
Assessment/Plan Assessment/Plan 1. Atrial fib/flutter with RVR In SR. Amio drip DCed yesterday for bradycardia. Can't switch to po as NPO Last Dig level 1.9 on 05/21/18 but off Dig. If develops atrial fib with RVR would digitalize again. 2. Chest pain. No ID.Troponin leak due to renal failure and nonspecific EKG showed old inferior and anterior wall ID, but no ischemia. ECHO normal LV function 3. End-stage renal disease, on hemodialysis per Dr. Arroyo. 4. Septic shock, off Levophed 2D Echo EF 60% and PA pressure 63 ? PE. DD 35.2. Unstable for chest CT angio. Off heparin drip for surgery 5. History of kidney stones. 6. History of psychiatric problems, dementia. 7. Hx of lap matthew. S/P SB resection 05/15/18 with drain Has yellowish discharge from incision. On iv Abx per ID S/P redo surgery 05/23/18 that showed Anastomotic leak. S/P surgery again by DR Chandler 05/27/18 On TPN 8. Respiratory failure, reintubated on the vent. SAW RN Subjective Subjective In ICU, Extubated and reintubated 4 hours later yesterday. Amiodarone drip DCed due to bradycardia after reintubation. Off Levophed. Off Heparin drip since surgery. On the Vent. Objective Last 24 Hour Vital Signs Date Time Temp Pulse Resp B/P (MAP) Pulse Ox O2 Delivery O2 Flow Rate FiO2 05/30/18 08:35 67 25 40 05/30/18 08:00 Mechanical Ventilator Endotracheal Tube Mechanical Ventilator 05/30/18 08:00 40 05/30/18 07:00 64 23 126/70 (88) 100 05/30/18 06:45 68 25 40 05/30/18 06:00 62 4 141/64 (89) 100 05/30/18 05:29 65 25 40 05/30/18 05:00 66 26 133/65 (87) 100 05/30/18 04:00 63 05/30/18 04:00 40 05/30/18 04:00 Mechanical Ventilator Bi-pap Mechanical Ventilator 05/30/18 04:00 99.2 63 26 126/85 (99) 100 05/30/18 03:02 67 27 40 05/30/18 03:00 65 26 126/92 (103) 100 05/30/18 02:00 56 25 146/64 (91) 100 05/30/18 01:00 70 16 50 05/30/18 01:00 63 25 122/79 (93) 100 05/30/18 00:00 62 05/30/18 00:00 50 05/30/18 00:00 Mechanical Ventilator Bi-pap Mechanical Ventilator 05/30/18 00:00 62 25 104/60 (75) 100 05/29/18 23:00 71 20 98/78 (85) 99 05/29/18 23:00 68 19 50 05/29/18 22:00 98 21 124/83 (97) 97 05/29/18 21:00 80 16 64/34 (44) 99 05/29/18 20:58 80 16 100 05/29/18 20:30 100 05/29/18 20:30 53 21 88/44 (59) 93 05/29/18 20:00 99.2 59 23 97/47 (64) 96 05/29/18 20:00 Mechanical Ventilator Bi-pap Mechanical Ventilator 05/29/18 20:00 30 05/29/18 20:00 59 05/29/18 19:50 93/50 05/29/18 19:23 67 23 100 Full Face 80 05/29/18 19:00 64 23 103/51 (68) 100 05/29/18 18:00 66 22 109/54 (72) 100 05/29/18 17:05 70 21 100 Full Face 100 05/29/18 17:00 78 22 141/63 (89) 100 05/29/18 17:00 Bi-pap 100 05/29/18 16:00 88 05/29/18 16:00 Mechanical Ventilator Mechanical Ventilator 05/29/18 16:00 99.0 89 23 132/65 (87) 100 05/29/18 15:10 78 26 30 05/29/18 15:00 92 25 165/84 (111) 100 05/29/18 14:00 81 24 138/102 (114) 100 05/29/18 13:00 78 24 138/71 (93) 100 05/29/18 13:00 68 21 30 05/29/18 12:00 99.3 65 21 123/73 (90) 100 05/29/18 12:00 58 05/29/18 12:00 Mechanical Ventilator Mechanical Ventilator 05/29/18 12:00 100 05/29/18 12:00 73 22 30 05/29/18 11:07 76 23 30 05/29/18 11:00 73 23 113/60 (77) 100 Intake and Output 05/29/18 05/30/18 19:00 07:00 Intake Total 1653.681 ml 1425.004 ml Output Total 2250 ml 410 ml Balance -596.319 ml 1015.004 ml IV Total 1653.681 ml 1425.004 ml Output Urine Total 25 ml 10 ml Drainage Total 225 ml 400 ml Hemodialysis UF 2000 ml # Bowel Movements 4 4 Laboratory Tests Test 05/29/18 15:10 05/29/18 17:00 05/29/18 21:47 05/30/18 05:00 Arterial Blood pH 7.341 (7.350-7.450) 7.306 (7.350-7.450) Arterial Blood Partial Pressure CO2 48.1 mmHg (35.0-45.0) H 46.6 mmHg (35.0-45.0) H Arterial Blood Partial Pressure O2 86.7 mmHg (75.0-100.0) 410.2 mmHg (75.0-100.0) H Arterial Blood HCO3 25.4 mmol/L (22.0-26.0) 22.7 mmol/L (22.0-26.0) Arterial Blood Oxygen Saturation 95.4 % (95-100) 99.2 % (95-100) Arterial Blood Base Excess -0.6 (-2-2) -3.6 (-2-2) L Luiz Test Positive Positive Sodium Level 137 MMOL/L (136-145) 135 MMOL/L (136-145) L Potassium Level 2.8 MMOL/L (3.5-5.1) L 3.7 MMOL/L (3.5-5.1) Chloride Level 100 MMOL/L (98-107) 98 MMOL/L (98-107) Carbon Dioxide Level 25 MMOL/L (21-32) 24 MMOL/L (21-32) Anion Gap 12 mmol/L (5-15) 13 mmol/L (5-15) Blood Urea Nitrogen 68 mg/dL (7-18) H 78 mg/dL (7-18) H Creatinine 3.8 MG/DL (0.55-1.30) H 4.2 MG/DL (0.55-1.30) H Estimat Glomerular Filtration Rate mL/min (>60) mL/min (>60) Glucose Level 152 MG/DL (74-106) H 89 MG/DL (74-106) Calcium Level 7.8 MG/DL (8.5-10.1) L 7.7 MG/DL (8.5-10.1) L Phosphorus Level 4.4 MG/DL (2.5-4.9) 4.0 MG/DL (2.5-4.9) Magnesium Level 2.4 MG/DL (1.8-2.4) 2.5 MG/DL (1.8-2.4) H Total Bilirubin 0.4 MG/DL (0.2-1.0) 0.3 MG/DL (0.2-1.0) Aspartate Amino Transf (AST/SGOT) 25 U/L (15-37) 29 U/L (15-37) Alanine Aminotransferase (ALT/SGPT) 14 U/L (12-78) 11 U/L (12-78) L Alkaline Phosphatase 108 U/L (46-116) 107 U/L (46-116) C-Reactive Protein, Quantitative 11.2 mg/dL (0.00-0.90) H 8.0 mg/dL (0.00-0.90) H Total Protein 4.4 G/DL (6.4-8.2) L 4.2 G/DL (6.4-8.2) L Albumin 0.9 G/DL (3.4-5.0) L 0.8 G/DL (3.4-5.0) L Globulin 3.5 g/dL 3.4 g/dL Albumin/Globulin Ratio 0.3 (1.0-2.7) L 0.2 (1.0-2.7) L White Blood Count 17.4 K/UL (4.8-10.8) H Red Blood Count 2.71 M/UL (4.70-6.10) L Hemoglobin 7.9 G/DL (14.2-18.0) L Hematocrit 23.6 % (42.0-52.0) L Mean Corpuscular Volume 87 FL (80-99) Mean Corpuscular Hemoglobin 29.1 PG (27.0-31.0) Mean Corpuscular Hemoglobin Concent 33.4 G/DL (32.0-36.0) Red Cell Distribution Width 15.9 % (11.6-14.8) H Platelet Count 98 K/UL (150-450) L Mean Platelet Volume 10.1 FL (6.5-10.1) Neutrophils (%) (Auto) % (45.0-75.0) Lymphocytes (%) (Auto) % (20.0-45.0) Monocytes (%) (Auto) % (1.0-10.0) Eosinophils (%) (Auto) % (0.0-3.0) Basophils (%) (Auto) % (0.0-2.0) Neutrophils % (Manual) Pending Lymphocytes % (Manual) Pending Platelet Estimate Pending Platelet Morphology Pending Uric Acid 5.1 MG/DL (2.6-7.2) Troponin I 0.244 ng/mL (0.000-0.056) Pro-B-Type Natriuretic Peptide 35218 pg/mL (0-125) H Test 05/30/18 08:00 Arterial Blood pH 7.410 (7.350-7.450) Arterial Blood Partial Pressure CO2 35.7 mmHg (35.0-45.0) Arterial Blood Partial Pressure O2 97.8 mmHg (75.0-100.0) Arterial Blood HCO3 22.2 mmol/L (22.0-26.0) Arterial Blood Oxygen Saturation 96.9 % (95-100) Arterial Blood Base Excess -2.1 (-2-2) L Luiz Test Positive Objective HEENT: Orally intubated Cardiovascular: Sinus tachycardia Respiratory/Chest: Coarse rhonchi Abdomen: Post op with 2 VELVET drain and WoundVac Extremities: 1 plus edema. Right groin dialysis catheter Everett Stephenson MD May 30, 2018 10:12
[2018-05-30] MEDS: Pantoprazole Inj IVP SCH ×2 (10:13→20:55)
--- NOTE | 2018-05-30 10:17 | General Progress Note ---
Assessment/Plan Assessment/Plan # Anemia of chronic disease due to underlying chronic medical issues, multifactorial --> Anemia w/u has been reviewed, reordered and ferritin is >2000 --> Monitor for stability --> trend 10.3-->7.6-->8.9-->10.3-->9.5-->9.2-->8.3-->7.9 --> not bleeding currently --> okay to give blood and products as patient unable to give consent, 2MD consent done --> continue Procrit 3x a week (started on 05/30) 3,000 sq dose # Thrombocytopenia due to septic shock --> vit K given for coagulopathy --> plt 163k-->116k-->83k-->98k # Small bowel perforation, s/p bowel resection, with Gram negative sepsis is on abx In ICU s/p Small bowel resection --> on broad spectrum abx --> on vanc/cefepime as per id--> now changed to zosyn, flagyl, micafungin--> on cefepime, levaquin --> s/p sb resection on 05/15, appreciate surg recs --> on 2 pressors as well,++ vent # Hypofibrinoginemia -- potentially consumptive process given sepsis --> cryo given weeek of 05/23 --> fibrinogen 541 --> okay to give blood and products as patient unable to give consent, 2MD consent done # Lower extremity edema with an elevated BNP in a patient with renal failure on hemodialysis. --> on HD per Dr. Arroyo. 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 --> Nephro is following, appreciate recs. HD approx 3x a week --> On intermittent HD # Respiratory failure on a vent, intubated The time of note does not necessarily reflect the time of encounter Greatly appreciate consultation! Subjective ROS Limited/Unobtainable: Yes Allergies: Coded Allergies: No Known Allergies (Unverified , 11/12/12) Subjective 05/12: Pt resting in bed. No acute events. H/H stable. On abx. VS stable. 05/13: on pressors, on hep gtt, on steriods, abx, got hd, felice catheter in place : CT-A was negative, hep gtt as per cards, abg reviewed, moaning on exam, on ceftriaxone 05/15 :Pt remains in ICU. Currently undergoing HD. Pt on 2 cardiac drips for elevated Bp. WBC remains elevated. H/H stable. 05/16: s/p sb resection, In ICU s/p Small bowel resection on Amiodarone and Levophed drip. HR around 100. 05/17: Orally intubated on Ac 16, Vt 500, P 5 fio2 30%. Pt continues NPO at this time. Right upper arm and right FA IV sites patent and intact at this time. Amio gtt running 05/18: Pt remains in ICU. Pt for STAT HD. WBC remains elevated, afebrile. 05/19: getting hd periodically, no other events, vent to be weaned, labs reviewed, on dilaudid, ativan and fentanyl per pulm 05/21: prognosis is more guarded, no events to report, no f/c, but on two pressors now, on hep gtt for antonio thrombosis, hd as well 3x/week 2: on 2 pressors, seen by cards, renal, ryan drain draining improved, still on vent, converted to sr, on amio gtt, lactic acid downtrending, minimally responsive, on heparin gtt as well for antonio thrombus 05/23: patient to go to OR [facility] potential washout, ostomy, and line placement, fibrinogen low, needs cryoprecipirate, will also check inr/pt, cbc reviewed, electrolytes noted 05/24: Patient continues to be intubated on vent. He is s/p exploratory lap with wound washout and wound vac placement. 05/25: Pt is seen in the room, resting in bed. doing well since wound vac change , cbc reviewed, plt 163 05/26: Patient is is seen at bedside, intubated on vent. Wound vac still applied. No signs of pain at this time. Plt 116 . 1.7: again off pressors, plt somewhat lower, monitoring meds, on amio, antifungal as well, could be contributing, platelets and vitk given 05/28: had more surgeries yesterday with Right hemicolectomy, omentectomy & removal of wound-vac, off pressors, HD 05/29/18, on vent, stable 05/29: extubated but reintubated, on cefepime at this time, amiodarone, being seen by cards, procrit started Objective Last 24 Hour Vital Signs Date Time Temp Pulse Resp B/P (MAP) Pulse Ox O2 Delivery O2 Flow Rate FiO2 05/30/18 08:35 67 25 40 05/30/18 08:00 Mechanical Ventilator Endotracheal Tube Mechanical Ventilator 05/30/18 08:00 40 05/30/18 07:00 64 23 126/70 (88) 100 05/30/18 06:45 68 25 40 05/30/18 06:00 62 4 141/64 (89) 100 05/30/18 05:29 65 25 40 05/30/18 05:00 66 26 133/65 (87) 100 05/30/18 04:00 63 05/30/18 04:00 40 05/30/18 04:00 Mechanical Ventilator Bi-pap Mechanical Ventilator 05/30/18 04:00 99.2 63 26 126/85 (99) 100 05/30/18 03:02 67 27 40 05/30/18 03:00 65 26 126/92 (103) 100 05/30/18 02:00 56 25 146/64 (91) 100 05/30/18 01:00 70 16 50 05/30/18 01:00 63 25 122/79 (93) 100 05/30/18 00:00 62 05/30/18 00:00 50 05/30/18 00:00 Mechanical Ventilator Bi-pap Mechanical Ventilator 05/30/18 00:00 62 25 104/60 (75) 100 05/29/18 23:00 71 20 98/78 (85) 99 05/29/18 23:00 68 19 50 05/29/18 22:00 98 21 124/83 (97) 97 05/29/18 21:00 80 16 64/34 (44) 99 05/29/18 20:58 80 16 100 05/29/18 20:30 100 05/29/18 20:30 53 21 88/44 (59) 93 05/29/18 20:00 99.2 59 23 97/47 (64) 96 05/29/18 20:00 Mechanical Ventilator Bi-pap Mechanical Ventilator 05/29/18 20:00 30 05/29/18 20:00 59 05/29/18 19:50 93/50 05/29/18 19:23 67 23 100 Full Face 80 05/29/18 19:00 64 23 103/51 (68) 100 05/29/18 18:00 66 22 109/54 (72) 100 05/29/18 17:05 70 21 100 Full Face 100 05/29/18 17:00 78 22 141/63 (89) 100 05/29/18 17:00 Bi-pap 100 05/29/18 16:00 88 05/29/18 16:00 Mechanical Ventilator Mechanical Ventilator 05/29/18 16:00 99.0 89 23 132/65 (87) 100 05/29/18 15:10 78 26 30 05/29/18 15:00 92 25 165/84 (111) 100 05/29/18 14:00 81 24 138/102 (114) 100 05/29/18 13:00 78 24 138/71 (93) 100 05/29/18 13:00 68 21 30 05/29/18 12:00 99.3 65 21 123/73 (90) 100 05/29/18 12:00 58 05/29/18 12:00 Mechanical Ventilator Mechanical Ventilator 05/29/18 12:00 100 05/29/18 12:00 73 22 30 05/29/18 11:07 76 23 30 05/29/18 11:00 73 23 113/60 (77) 100 Intake and Output 05/29/18 05/30/18 18:59 06:59 Intake Total 1670.341 ml 1425.004 ml Output Total 2255 ml 210 ml Balance -584.659 ml 1215.004 ml IV Total 1670.341 ml 1425.004 ml Output Urine Total 30 ml 10 ml Drainage Total 225 ml 200 ml Hemodialysis UF 2000 ml # Bowel Movements 4 4 Laboratory Tests 05/29/18 15:10: Arterial Blood pH 7.341L, Arterial Blood Partial Pressure CO2 48.1H, Arterial Blood Partial Pressure O2 86.7, Arterial Blood HCO3 25.4, Arterial Blood Oxygen Saturation 95.4, Arterial Blood Base Excess -0.6, Luiz Test Positive 05/29/18 17:00: Sodium Level 137, Potassium Level 2.8L, Chloride Level 100, Carbon Dioxide Level 25, Anion Gap 12, Blood Urea Nitrogen 68H, Creatinine 3.8H, Estimat Glomerular Filtration Rate , Glucose Level 152H, Calcium Level 7.8L, Phosphorus Level 4.4, Magnesium Level 2.4, Total Bilirubin 0.4, Aspartate Amino Transf (AST /SGOT) 25, Alanine Aminotransferase (ALT/SGPT) 14, Alkaline Phosphatase 108, C- Reactive Protein, Quantitative 11.2H, Total Protein 4.4L, Albumin 0.9L, Globulin 3.5, Albumin/Globulin Ratio 0.3L 05/29/18 21:47: Arterial Blood pH 7.306L, Arterial Blood Partial Pressure CO2 46.6H, Arterial Blood Partial Pressure O2 410.2H, Arterial Blood HCO3 22.7, Arterial Blood Oxygen Saturation 99.2, Arterial Blood Base Excess -3.6L, Luiz Test Positive 05/30/18 05:00: Sodium Level 135L, Potassium Level 3.7, Chloride Level 98, Carbon Dioxide Level 24, Anion Gap 13, Blood Urea Nitrogen 78H, Creatinine 4.2H, Estimat Glomerular Filtration Rate , Glucose Level 89, Calcium Level 7.7L, Phosphorus Level 4.0, Magnesium Level 2.5H, Total Bilirubin 0.3, Aspartate Amino Transf (AST/SGOT) 29 , Alanine Aminotransferase (ALT/SGPT) 11L, Alkaline Phosphatase 107, C-Reactive Protein, Quantitative 8.0H, Total Protein 4.2L, Albumin 0.8L, Globulin 3.4, Albumin/Globulin Ratio 0.2L, White Blood Count 17.4H, Red Blood Count 2.71L, Hemoglobin 7.9L, Hematocrit 23.6L, Mean Corpuscular Volume 87, Mean Corpuscular Hemoglobin 29.1, Mean Corpuscular Hemoglobin Concent 33.4, Red Cell Distribution Width 15.9H, Platelet Count 98L, Mean Platelet Volume 10.1, Neutrophils (%) (Auto) , Lymphocytes (%) (Auto) , Monocytes (%) (Auto) , Eosinophils (%) (Auto) , Basophils (%) (Auto) , Neutrophils % (Manual) [Pending] , Lymphocytes % (Manual) [Pending], Platelet Estimate [Pending], Platelet Morphology [Pending], Uric Acid 5.1, Troponin I 0.244H, Pro-B-Type Natriuretic Peptide [id number] 05/30/18 08:00: Arterial Blood pH 7.410, Arterial Blood Partial Pressure CO2 35.7, Arterial Blood Partial Pressure O2 97.8, Arterial Blood HCO3 22.2, Arterial Blood Oxygen Saturation 96.9, Arterial Blood Base Excess -2.1L, Luiz Test Positive Height (Feet): 5 Height (Inches): 5.00 Weight (Pounds): 185 Objective PHYSICAL EXAMINATION: VITAL SIGNS: Have been reviewed HEENT: PERRLA. intubated, vent++ NECK: Supple. No lymphadenopathy CHEST: ++ intubated CARDIOVASCULAR: Tachycardic. GASTROINTESTINAL: Distended. Positive bowel sounds. Nontender. No organomegaly. ++ ryan drain in place EXTREMITY: 2+ edema. NEURO: responsive to simple command Reinaldo Leon MD May 30, 2018 10:17
[2018-05-30] MEDS: Levemir Flexpen SUBQ SCH ×2 (10:22→21:00)
--- NOTE | 2018-05-30 11:06 | NUR ---
NURSE NOTES: MD HOLDER HERE TO SEE PT. NO AMIODARONE DRIP OR PRESSORS. PT REINTUBATED. NO CV S/S AT THIS TIME. WILL PLACE OWN ORDERS.
[2018-05-30] MEDS: Vasopressin 100 UNITS in NS 95 ML IV SCH (11:23)
--- NOTE | 2018-05-30 12:00 | NUR ---
NURSE NOTES: Pt found with TPN tubing kinked under the RT shoulder, pt cleaned and repositioned. Pt had large brown loose BM. Sacral dressing changed. Extremities elevated on pillows, replaced SCD's d/t being soiled. HOB>30. Contact precautions in place. Will continue to monitor pt.
--- NOTE | 2018-05-30 12:56 | Diagnostic Imaging Report ---
Indication: Post reintubation Technique: One view of the chest Comparison: 13 hours earlier Findings: There is increased opacity at the left lung base, likely reflecting increased pleural fluid. There may be some increased consolidation as well. Endotracheal tube is in good position. Central line remains in good position. Right lung and pleural space remain clear Impression: Satisfactory position of endotracheal tube Increased pleural fluid and possibly parenchymal consolidation on the left. This agrees with the preliminary interpretation provided overnight by [facility] teleradiology service.
--- NOTE | 2018-05-30 13:55 | Pulmonolgy Critical Care Note ---
Critical Care - Asmt/Plan Problems: (1) Shock (2) Hypoxemia (3) Elevated d-dimer Assessment & Plan: S/P neg CT-A + UE DVT (4) Hypotension (5) Atrial fibrillation (6) ESRD (end stage renal disease) on dialysis (7) ACS (acute coronary syndrome) (8) Sacral decubitus ulcer, stage III (9) S/P cholecystectomy (10) Serratia sepsis (11) S/P exploratory laparotomy (12) Perforated viscus (13) Thrombocythemia Assessment/Plan: -Off NE -Continue HC 25 TID and taper -Continue current vent settings -SBT in am -Titrate down FiO2 and PEEP to keep SaO2 > 90% -HD per renal as able -[facility] held -Repeat CBC, transfuse if Hb < 8 -Monitor for bleeding -Flucon, Flagyl and Cefepime per ID, F/U Cx's -NPO , TPN -F/U surgery recs -FC D/W RN and RT CCT 45 Critical Care - Objective Last 24 Hour Vital Signs Date Time Temp Pulse Resp B/P (MAP) Pulse Ox O2 Delivery O2 Flow Rate FiO2 05/30/18 13:15 65 28 40 05/30/18 13:00 79 28 121/61 (81) 100 05/30/18 13:00 40 05/30/18 12:00 99.6 69 27 129/65 (86) 100 05/30/18 12:00 73 05/30/18 12:00 Mechanical Ventilator Endotracheal Tube Mechanical Ventilator 05/30/18 11:00 68 26 143/68 (93) 99 05/30/18 10:36 68 26 40 05/30/18 10:00 73 30 124/63 (83) 99 05/30/18 09:00 65 23 126/70 (88) 100 05/30/18 08:35 67 25 40 05/30/18 08:00 99.3 66 23 131/61 (84) 100 05/30/18 08:00 70 05/30/18 08:00 Mechanical Ventilator Endotracheal Tube Mechanical Ventilator 05/30/18 08:00 40 05/30/18 07:00 64 23 126/70 (88) 100 05/30/18 06:45 68 25 40 05/30/18 06:00 62 4 141/64 (89) 100 05/30/18 05:29 65 25 40 05/30/18 05:00 66 26 133/65 (87) 100 05/30/18 04:00 63 05/30/18 04:00 40 05/30/18 04:00 Mechanical Ventilator Bi-pap Mechanical Ventilator 05/30/18 04:00 99.2 63 26 126/85 (99) 100 05/30/18 03:02 67 27 40 05/30/18 03:00 65 26 126/92 (103) 100 05/30/18 02:00 56 25 146/64 (91) 100 05/30/18 01:00 70 16 50 05/30/18 01:00 63 25 122/79 (93) 100 05/30/18 00:00 62 05/30/18 00:00 50 05/30/18 00:00 Mechanical Ventilator Bi-pap Mechanical Ventilator 05/30/18 00:00 62 25 104/60 (75) 100 05/29/18 23:00 71 20 98/78 (85) 99 05/29/18 23:00 68 19 50 05/29/18 22:00 98 21 124/83 (97) 97 05/29/18 21:00 80 16 64/34 (44) 99 05/29/18 20:58 80 16 100 05/29/18 20:30 100 05/29/18 20:30 53 21 88/44 (59) 93 05/29/18 20:00 99.2 59 23 97/47 (64) 96 05/29/18 20:00 Mechanical Ventilator Bi-pap Mechanical Ventilator 05/29/18 20:00 30 05/29/18 20:00 59 05/29/18 19:50 93/50 05/29/18 19:23 67 23 100 Full Face 80 05/29/18 19:00 64 23 103/51 (68) 100 05/29/18 18:00 66 22 109/54 (72) 100 05/29/18 17:05 70 21 100 Full Face 100 05/29/18 17:00 78 22 141/63 (89) 100 05/29/18 17:00 Bi-pap 100 05/29/18 16:00 88 05/29/18 16:00 Mechanical Ventilator Mechanical Ventilator 05/29/18 16:00 99.0 89 23 132/65 (87) 100 1/9/19 15:10 78 26 30 05/29/18 15:00 92 25 165/84 (111) 100 05/29/18 14:00 81 24 138/102 (114) 100 Status: awake, other - intubated Condition: critical HEENT: atraumatic, normocephalic, other - ETT Lungs: rhonchi Heart: HR/BP stable Abdomen: soft, non-tender, active bowel sounds, other - dressed VELVET Extremities: edema - 1+ Decubiti: location - sacral, stage - 2 Accucheck: 137 Blood Sugars: BS controlled Critical Care - Subjective ROS Limited/Unobtainable: Yes ICU Day: 16 Intubation Day: Re-in 1 Interval Events: Extubated and reintubated, WCt inc HH down No sig secretion, off pressors off Amio no distress on TPN Condition: critical IV Access: peripheral EKG Rhythm: Sinus Rhythm FI02: 40 Vent Support Breath Rate: 16 Vent Support Mode: AC Vent Tidal Volume: 500 Sputum Amount: Moderate PEEP: 5.0 PIP: 28 Fluids: SLIV Drips: N/A Tube Feeding Amount: 0 I&O: Intake and Output 05/29/18 05/30/18 18:59 06:59 Intake Total 1670.341 ml 1425.004 ml Output Total 2255 ml 210 ml Balance -584.659 ml 1215.004 ml IV Total 1670.341 ml 1425.004 ml Output Urine Total 30 ml 10 ml Drainage Total 225 ml 200 ml Hemodialysis UF 2000 ml # Bowel Movements 4 4 Subjective: CROW CXR: Inc cons L base ET-Tube: 7.5 ET Position: 23 Labs: Laboratory Tests Test 05/29/18 15:10 05/29/18 17:00 05/29/18 21:47 05/30/18 05:00 Arterial Blood pH 7.341 (7.350-7.450) 7.306 (7.350-7.450) Arterial Blood Partial Pressure CO2 48.1 mmHg (35.0-45.0) H 46.6 mmHg (35.0-45.0) H Arterial Blood Partial Pressure O2 86.7 mmHg (75.0-100.0) 410.2 mmHg (75.0-100.0) H Arterial Blood HCO3 25.4 mmol/L (22.0-26.0) 22.7 mmol/L (22.0-26.0) Arterial Blood Oxygen Saturation 95.4 % (95-100) 99.2 % (95-100) Arterial Blood Base Excess -0.6 (-2-2) -3.6 (-2-2) L Luiz Test Positive Positive Sodium Level 137 MMOL/L (136-145) 135 MMOL/L (136-145) L Potassium Level 2.8 MMOL/L (3.5-5.1) L 3.7 MMOL/L (3.5-5.1) Chloride Level 100 MMOL/L (98-107) 98 MMOL/L (98-107) Carbon Dioxide Level 25 MMOL/L (21-32) 24 MMOL/L (21-32) Anion Gap 12 mmol/L (5-15) 13 mmol/L (5-15) Blood Urea Nitrogen 68 mg/dL (7-18) H 78 mg/dL (7-18) H Creatinine 3.8 MG/DL (0.55-1.30) H 4.2 MG/DL (0.55-1.30) H Estimat Glomerular Filtration Rate mL/min (>60) mL/min (>60) Glucose Level 152 MG/DL (74-106) H 89 MG/DL (74-106) Calcium Level 7.8 MG/DL (8.5-10.1) L 7.7 MG/DL (8.5-10.1) L Phosphorus Level 4.4 MG/DL (2.5-4.9) 4.0 MG/DL (2.5-4.9) Magnesium Level 2.4 MG/DL (1.8-2.4) 2.5 MG/DL (1.8-2.4) H Total Bilirubin 0.4 MG/DL (0.2-1.0) 0.3 MG/DL (0.2-1.0) Aspartate Amino Transf (AST/SGOT) 25 U/L (15-37) 29 U/L (15-37) Alanine Aminotransferase (ALT/SGPT) 14 U/L (12-78) 11 U/L (12-78) L Alkaline Phosphatase 108 U/L (46-116) 107 U/L (46-116) C-Reactive Protein, Quantitative 11.2 mg/dL (0.00-0.90) H 8.0 mg/dL (0.00-0.90) H Total Protein 4.4 G/DL (6.4-8.2) L 4.2 G/DL (6.4-8.2) L Albumin 0.9 G/DL (3.4-5.0) L 0.8 G/DL (3.4-5.0) L Globulin 3.5 g/dL 3.4 g/dL Albumin/Globulin Ratio 0.3 (1.0-2.7) L 0.2 (1.0-2.7) L White Blood Count 17.4 K/UL (4.8-10.8) H Red Blood Count 2.71 M/UL (4.70-6.10) L Hemoglobin 7.9 G/DL (14.2-18.0) L Hematocrit 23.6 % (42.0-52.0) L Mean Corpuscular Volume 87 FL (80-99) Mean Corpuscular Hemoglobin 29.1 PG (27.0-31.0) Mean Corpuscular Hemoglobin Concent 33.4 G/DL (32.0-36.0) Red Cell Distribution Width 15.9 % (11.6-14.8) H Platelet Count 98 K/UL (150-450) L Mean Platelet Volume 10.1 FL (6.5-10.1) Neutrophils (%) (Auto) % (45.0-75.0) Lymphocytes (%) (Auto) % (20.0-45.0) Monocytes (%) (Auto) % (1.0-10.0) Eosinophils (%) (Auto) % (0.0-3.0) Basophils (%) (Auto) % (0.0-2.0) Differential Total Cells Counted 100 Neutrophils % (Manual) 90 % (45-75) H Lymphocytes % (Manual) 2 % (20-45) L Monocytes % (Manual) 4 % (1-10) Eosinophils % (Manual) 0 % (0-3) Basophils % (Manual) 0 % (0-2) Band Neutrophils 4 % (0-8) Platelet Estimate Decreased L Platelet Morphology Normal Hypochromasia 1+ Anisocytosis 1+ Uric Acid 5.1 MG/DL (2.6-7.2) Troponin I 0.244 ng/mL (0.000-0.056) Pro-B-Type Natriuretic Peptide 49136 pg/mL (0-125) H Test 05/30/18 08:00 Arterial Blood pH 7.410 (7.350-7.450) Arterial Blood Partial Pressure CO2 35.7 mmHg (35.0-45.0) Arterial Blood Partial Pressure O2 97.8 mmHg (75.0-100.0) Arterial Blood HCO3 22.2 mmol/L (22.0-26.0) Arterial Blood Oxygen Saturation 96.9 % (95-100) Arterial Blood Base Excess -2.1 (-2-2) L Luiz Test Positive Daryl Jones MD May 30, 2018 13:55
[2018-05-30] MEDS: Cefepime HCl 2 GM in D5W 55 ML IVPB SCH (14:05)
[2018-05-30] MEDS: Norepinephrine Bitartrate 8 MG in D5W 500ml 492 ML IV SCH (14:30)
[2018-05-30] MEDS ORDERED: Tubing IV Secondary IV ONE (15:00)
--- NOTE | 2018-05-30 16:19 | General Progress Note ---
Progress Note Progress Note surgery: failed extubation. reintubated. labs noted wound stable drains serous output prognosis guarded. he has been through a lot. very ill. very unfortunate case. will continue maximal efforts has not been ambulatory for some time. has been without po intake poor nutritional status may develop dti. will cont with protocol for prevention. possible decline Tomas Chandler May 30, 2018 16:19
--- NOTE | 2018-05-30 16:31 | NUR ---
NURSE NOTES: RN draw CMP from LT [facility] line, sample to sent to lab. pt tolerating well. will continue to monitor pt.
[2018-05-30 17:20] LABS: ALANINE AMINOTRANSFERASE 11 U/L (12-78); ALBUMIN 0.8 G/DL (3.4-5.0); ALBUMIN/GLOBULIN RATIO 0.3 (1.0-2.7); ALKALINE PHOSPHATASE 90 U/L (46-116); ANION GAP 12 mmol/L (5-15); ASPARTATE AMINO TRANSFERASE 25 U/L (15-37); BILIRUBIN,TOTAL 0.4 MG/DL (0.2-1.0); BLOOD UREA NITROGEN 84 mg/dL (7-18); CALCIUM 7.1 MG/DL (8.5-10.1); CARBON DIOXIDE 21 MMOL/L (21-32); CHLORIDE 103 MMOL/L (98-107); CREATININE 4.1 MG/DL (0.55-1.30); POTASSIUM 2.8 MMOL/L (3.5-5.1); SODIUM 138 MMOL/L (136-145)
--- NOTE | 2018-05-30 17:50 | General Progress Note ---
Assessment/Plan Problem List: (1) Perforated viscus ICD Codes: R19.8 - Other specified symptoms and signs involving the digestive system and abdomen SNOMED: 20776889, 717461002, 828596358 (2) ESRD (end stage renal disease) on dialysis ICD Codes: N18.6 - End stage renal disease; Z99.2 - Dependence on renal dialysis SNOMED: 951788582 (3) Shock ICD Codes: R57.9 - Shock, unspecified SNOMED: 64902255 (4) Diabetes mellitus out of control ICD Codes: E11.65 - Type 2 diabetes mellitus with hyperglycemia SNOMED: 15700416, 357307330 Assessment/Plan continue BG monitoring and Novolog sliding scale every 4 hours reduce Novolog 10 to 6 units every 4 hours continue Levemir 20 units bid Subjective ROS Limited/Unobtainable: Yes Allergies: Coded Allergies: No Known Allergies (Unverified , 11/12/12) Subjective events noted Objective Last 24 Hour Vital Signs Date Time Temp Pulse Resp B/P (MAP) Pulse Ox O2 Delivery O2 Flow Rate FiO2 05/30/18 17:04 78 26 40 05/30/18 16:00 Mechanical Ventilator Endotracheal Tube Mechanical Ventilator 05/30/18 16:00 40 05/30/18 16:00 79 05/30/18 15:13 80 30 40 05/30/18 13:15 65 28 40 05/30/18 13:00 79 28 121/61 (81) 100 05/30/18 13:00 40 05/30/18 12:00 99.6 69 27 129/65 (86) 100 05/30/18 12:00 73 05/30/18 12:00 Mechanical Ventilator Endotracheal Tube Mechanical Ventilator 05/30/18 11:00 68 26 143/68 (93) 99 05/30/18 10:36 68 26 40 05/30/18 10:00 73 30 124/63 (83) 99 05/30/18 09:00 65 23 126/70 (88) 100 05/30/18 08:35 67 25 40 05/30/18 08:00 99.3 66 23 131/61 (84) 100 05/30/18 08:00 70 05/30/18 08:00 Mechanical Ventilator Endotracheal Tube Mechanical Ventilator 05/30/18 08:00 40 05/30/18 07:00 64 23 126/70 (88) 100 05/30/18 06:45 68 25 40 05/30/18 06:00 62 4 141/64 (89) 100 05/30/18 05:29 65 25 40 05/30/18 05:00 66 26 133/65 (87) 100 05/30/18 04:00 63 05/30/18 04:00 40 05/30/18 04:00 Mechanical Ventilator Bi-pap Mechanical Ventilator 05/30/18 04:00 99.2 63 26 126/85 (99) 100 05/30/18 03:02 67 27 40 05/30/18 03:00 65 26 126/92 (103) 100 05/30/18 02:00 56 25 146/64 (91) 100 05/30/18 01:00 70 16 50 05/30/18 01:00 63 25 122/79 (93) 100 05/30/18 00:00 62 05/30/18 00:00 50 05/30/18 00:00 Mechanical Ventilator Bi-pap Mechanical Ventilator 05/30/18 00:00 62 25 104/60 (75) 100 05/29/18 23:00 71 20 98/78 (85) 99 05/29/18 23:00 68 19 50 05/29/18 22:00 98 21 124/83 (97) 97 05/29/18 21:00 80 16 64/34 (44) 99 05/29/18 20:58 80 16 100 05/29/18 20:30 100 05/29/18 20:30 53 21 88/44 (59) 93 05/29/18 20:00 99.2 59 23 97/47 (64) 96 05/29/18 20:00 Mechanical Ventilator Bi-pap Mechanical Ventilator 05/29/18 20:00 30 05/29/18 20:00 59 05/29/18 19:50 93/50 05/29/18 19:23 67 23 100 Full Face 80 05/29/18 19:00 64 23 103/51 (68) 100 05/29/18 18:00 66 22 109/54 (72) 100 Intake and Output 05/29/18 05/30/18 18:59 06:59 Intake Total 1670.341 ml 1425.004 ml Output Total 2255 ml 210 ml Balance -584.659 ml 1215.004 ml IV Total 1670.341 ml 1425.004 ml Output Urine Total 30 ml 10 ml Drainage Total 225 ml 200 ml Hemodialysis UF 2000 ml # Bowel Movements 4 4 Laboratory Tests 05/29/18 21:47: Arterial Blood pH 7.306L, Arterial Blood Partial Pressure CO2 46.6H, Arterial Blood Partial Pressure O2 410.2H, Arterial Blood HCO3 22.7, Arterial Blood Oxygen Saturation 99.2, Arterial Blood Base Excess -3.6L, Luiz Test Positive 05/30/18 05:00: White Blood Count 17.4H, Red Blood Count 2.71L, Hemoglobin 7.9L, Hematocrit 23.6L, Mean Corpuscular Volume 87, Mean Corpuscular Hemoglobin 29.1, Mean Corpuscular Hemoglobin Concent 33.4, Red Cell Distribution Width 15.9H, Platelet Count 98L, Mean Platelet Volume 10.1, Neutrophils (%) (Auto) , Lymphocytes (%) (Auto) , Monocytes (%) (Auto) , Eosinophils (%) (Auto) , Basophils (%) (Auto) , Differential Total Cells Counted 100, Neutrophils % ( Manual) 90H, Lymphocytes % (Manual) 2L, Monocytes % (Manual) 4, Eosinophils % ( Manual) 0, Basophils % (Manual) 0, Band Neutrophils 4, Platelet Estimate DecreasedL, Platelet Morphology Normal, Hypochromasia 1+, Anisocytosis 1+, Sodium Level 135L, Potassium Level 3.7, Chloride Level 98, Carbon Dioxide Level 24, Anion Gap 13, Blood Urea Nitrogen 78H, Creatinine 4.2H, Estimat Glomerular Filtration Rate , Glucose Level 89, Uric Acid 5.1, Calcium Level 7.7L, Phosphorus Level 4.0, Magnesium Level 2.5H, Total Bilirubin 0.3, Aspartate Amino Transf (AST/SGOT) 29, Alanine Aminotransferase (ALT/SGPT) 11L, Alkaline Phosphatase 107, Troponin I 0.244H, C-Reactive Protein, Quantitative 8.0H, Pro-B -Type Natriuretic Peptide 05283H, Total Protein 4.2L, Albumin 0.8L, Globulin 3.4 , Albumin/Globulin Ratio 0.2L 05/30/18 08:00: Arterial Blood pH 7.410, Arterial Blood Partial Pressure CO2 35.7, Arterial Blood Partial Pressure O2 97.8, Arterial Blood HCO3 22.2, Arterial Blood Oxygen Saturation 96.9, Arterial Blood Base Excess -2.1L, Luiz Test Positive 05/30/18 16:30: Sodium Level 138, Potassium Level 2.8L, Chloride Level 103, Carbon Dioxide Level 21, Anion Gap 12, Blood Urea Nitrogen 84H, Creatinine 4.1H, Estimat Glomerular Filtration Rate , Glucose Level 131H, Calcium Level 7.1L, Total Bilirubin 0.4, Aspartate Amino Transf (AST/SGOT) 25, Alanine Aminotransferase ( ALT/SGPT) 11L, Alkaline Phosphatase 90, Total Protein 3.9L, Albumin 0.8L, Globulin 3.1, Albumin/Globulin Ratio 0.3L Height (Feet): 5 Height (Inches): 5.00 Weight (Pounds): 187 General Appearance: moderate distress Neck: normal alignment Cardiovascular: normal rate Respiratory/Chest: decreased breath sounds Abdomen: hypoactive bowel sounds Objective Current Medications Medications (Trade) Dose Ordered Sig/Min Route PRN Reason Start Time Stop Time Status Last Admin Dose Admin Acetaminophen (Tylenol) 650 mg Q4H PRN RECTAL Mild Pain/Temp > 100.5 05/21/18 12:00 06/20/18 11:59 Cefepime HCl 2 gm/ Dextrose 55 ml @ 110 mls/hr Q24H IVPB 05/25/18 13:00 06/01/18 12:59 05/30/18 14:05 Chlorhexidine Gluconate (Tatyana-Hex 2%) 1 applic DAILY@2000 TOPIC 05/12/18 20:00 06/11/18 19:59 05/29/18 19:50 Dextrose 1,000 ml @ 0 mls/hr Q24H PRN IV PN interrupted or unavailable 05/25/18 21:00 06/24/18 20:59 Dextrose (Dextrose 50%) 25 ml Q30M PRN IV Hypoglycemia 05/26/18 12:45 06/25/18 12:44 Dextrose (Dextrose 50%) 50 ml Q30M PRN IV Hypoglycemia 05/26/18 12:45 06/25/18 12:44 Epoetin Bret (Procrit (for ESRD on dialysis)) 3,000 units SUN-WED-SUN SUBQ 05/31/18 21:00 06/30/18 20:59 Fat Emulsion Intravenous 250 ml/Amino Acids/ Electrolytes/ Dextrose 2,050 ml @ 85.417 mls/ hr Q24H IV 05/28/18 20:00 06/27/18 19:59 05/29/18 20:17 Fluconazole/ Sodium Chloride 100 ml @ 100 mls/hr Q24H IV 05/28/18 18:00 06/04/18 17:59 05/30/18 17:13 Hydrocortisone (Solu-CORTEF) 25 mg EVERY 8 HOURS IV 05/29/18 22:00 06/20/18 21:59 05/30/18 14:05 Hydromorphone HCl (Dilaudid) 1 mg Q2H PRN IVP Severe Pain (Pain Scale 7-10) 05/28/18 08:52 06/02/18 08:51 Insulin Aspart (NovoLOG) EVERY 4 HOURS SUBQ 05/24/18 17:00 06/15/18 20:59 05/30/18 17:19 Insulin Aspart (NovoLOG) 10 units EVERY 4 HOURS SUBQ 05/27/18 09:00 06/25/18 12:59 05/30/18 10:22 Insulin Detemir (Levemir) 20 units Q12HR SUBQ 05/27/18 09:00 06/23/18 17:59 05/30/18 10:22 Levofloxacin 50 ml @ 50 mls/hr Q24H IVPB 05/25/18 13:00 06/01/18 12:59 05/30/18 14:05 Metronidazole 100 ml @ 100 mls/hr Q8HR IVPB 05/25/18 14:00 06/01/18 13:59 05/30/18 14:06 Nitroglycerin (Ntg) 1 patch Q24H TDERMAL 05/29/18 20:00 06/28/18 19:59 05/29/18 19:50 Norepinephrine Bitartrate 8 mg/ Dextrose 500 ml @ 0 mls/hr Q24H IV 05/21/18 14:30 06/20/18 14:29 05/27/18 14:30 Ondansetron HCl (Zofran) 4 mg Q6H PRN IVP Nausea & Vomiting 05/15/18 23:30 06/14/18 23:29 Pantoprazole (Protonix) 40 mg EVERY 12 HOURS IVP 05/12/18 21:00 06/10/18 20:59 05/30/18 10:13 Phytonadione (Vitamin K) 10 mg ONCE A WEEK SUBQ 05/25/18 21:00 06/24/18 20:59 05/25/18 20:30 Vasopressin 100 units/Sodium Chloride 100 ml @ 0 mls/hr Q24H IV 05/22/18 11:30 06/21/18 11:29 05/23/18 17:47 Item Value Date Time Bedside Blood Glucose 118 mg/dl 05/30/18 1719 Bedside Blood Glucose 110 mg/dl 05/30/18 1300 Bedside Blood Glucose 137 mg/dl H 05/30/18 1023 Bedside Blood Glucose 112 mg/dl 05/30/18 0544 Bedside Blood Glucose 103 mg/dl 05/30/18 0035 Bedside Blood Glucose 140 mg/dl H 05/29/18 2118 Bedside Blood Glucose 140 mg/dl H 05/29/18 1756 Bedside Blood Glucose 140 mg/dl H 05/29/18 1357 Rashad Koenig MD May 30, 2018 17:50
--- NOTE | 2018-05-30 18:27 | NUR ---
NURSE NOTES: CALLED MD RAE REGARDING RESULTS OF CMP. AWAITING CALL BACK.
--- NOTE | 2018-05-30 19:30 | NUR ---
NURSE NOTES: Received pt in bed with eyes closed. Arousable to verbal stimuli. orally intubated AC16, VT 500, p5, Fio2 40%. Right subclavian TLC running TPN at this time. Abdomen noted with dressing, dry and intact. VELVET drains on left and right side of the abdomen. Right Femoral Dialysis cath noted, with dressing dry and intact. Pt noted to bed edematous, all extremities. Scrotal and penis noted to be edematous also. SCD's on. On contact precautions, bed in lowest position, side rails upx3. No signs of distress noted,. Will continue with plan of care
--- NOTE | 2018-05-30 19:33 | NUR ---
HAND-OFF: Report given to GILBERTO. ENDORSED F/U WITH MD RAE ON CMP RESULTS.
[2018-05-30] MEDS: Dyna-Hex 2% Top Sol 2oz TOPIC SCH (19:54)
[2018-05-30] MEDS: Nitroglycerin Patch 0.4mg TDERMAL SCH (19:54)
[2018-05-30] MEDS: TPN IV SCH (20:15)
[2018-05-30] MEDS: FAT EMULSION 20% IV SCH (20:15)
--- NOTE | 2018-05-30 20:16 | General Progress Note ---
Assessment/Plan Assessment/Plan # Anemia of chronic disease due to underlying chronic medical issues, multifactorial --> Anemia w/u has been reviewed, reordered and ferritin is >2000 --> Monitor for stability --> trend 10.3-->7.6-->8.9-->10.3-->9.5-->9.2-->8.3-->7.9 --> not bleeding currently --> okay to give blood and products as patient unable to give consent, 2MD consent done --> continue Procrit 3x a week (started on 05/30) 3,000 sq dose # Thrombocytopenia due to septic shock --> vit K given for coagulopathy --> plt 163k-->116k-->83k-->98k # Small bowel perforation, s/p bowel resection, with Gram negative sepsis is on abx In ICU s/p Small bowel resection --> on broad spectrum abx --> on vanc/cefepime as per id--> now changed to zosyn, flagyl, micafungin--> on cefepime, levaquin --> s/p sb resection on 05/15, appreciate surg recs --> on 2 pressors as well,++ vent # Hypofibrinoginemia -- potentially consumptive process given sepsis --> cryo given weeek of 05/23 --> fibrinogen 541 --> okay to give blood and products as patient unable to give consent, 2MD consent done # Lower extremity edema with an elevated BNP in a patient with renal failure on hemodialysis. --> on HD per Dr. Arroyo. 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 --> Nephro is following, appreciate recs. HD approx 3x a week --> On intermittent HD # Respiratory failure on a vent, intubated The time of note does not necessarily reflect the time of encounter Greatly appreciate consultation! Subjective ROS Limited/Unobtainable: No Constitutional: Denies: no symptoms, chills, diaphoresis, fever, malaise, weakness, other HEENT: Denies: no symptoms, eye pain, blurred vision, tearing, double vision, ear pain, ear discharge, nose pain, nose congestion, throat pain, throat swelling, mouth pain, mouth swelling, other Cardiovascular: Denies: no symptoms, chest pain, edema, irregular heart rate, lightheadedness, palpitations, syncope, other Respiratory: Denies: no symptoms, cough, orthopnea, shortness of breath, SOB with excertion, SOB at rest, sputum, stridor, wheezing, other Gastrointestinal/Abdominal: Denies: no symptoms, abdomen distended, abdominal pain, black stools, tarry stools, blood in stool, constipated, diarrhea, difficulty swallowing, nausea, poor appetite, poor fluid intake, rectal bleeding , vomiting, other Genitourinary: Denies: no symptoms, burning, discharge, frequency, flank pain, hematuria, incontinence, pain, urgency, other Neurologic/Psychiatric: Denies: no symptoms, anxiety, depressed, emotional problems, headache, numbness, paresthesia, pre-existing deficit, seizure, tingling, tremors, weakness, other Endocrine: Denies: no symptoms, excessive sweating, flushing, intolerance to cold, intolerance to heat, increased hunger, increased thirst, increased urine, unexplained weight gain, unexplained weight loss, other Hematologic/Lymphatic: Denies: no symptoms, anemia, easy bleeding, easy bruising, other Allergies: Coded Allergies: No Known Allergies (Unverified , 11/12/12) Subjective 05/12: Pt resting in bed. No acute events. H/H stable. On abx. VS stable. 05/13: on pressors, on hep gtt, on steriods, abx, got hd, felice catheter in place : CT-A was negative, hep gtt as per cards, abg reviewed, moaning on exam, on ceftriaxone 05/15 :Pt remains in ICU. Currently undergoing HD. Pt on 2 cardiac drips for elevated Bp. WBC remains elevated. H/H stable. 05/16: s/p sb resection, In ICU s/p Small bowel resection on Amiodarone and Levophed drip. HR around 100. 05/17: Orally intubated on Ac 16, Vt 500, P 5 fio2 30%. Pt continues NPO at this time. Right upper arm and right FA IV sites patent and intact at this time. Amio gtt running 05/18: Pt remains in ICU. Pt for STAT HD. WBC remains elevated, afebrile. 05/19: getting hd periodically, no other events, vent to be weaned, labs reviewed, on dilaudid, ativan and fentanyl per pulm 05/21: prognosis is more guarded, no events to report, no f/c, but on two pressors now, on hep gtt for antonio thrombosis, hd as well 3x/week 05/22: on 2 pressors, seen by cards, renal, ryan drain draining improved, still on vent, converted to sr, on amio gtt, lactic acid downtrending, minimally responsive, on heparin gtt as well for antonio thrombus 05/23: patient to go to OR [facility] potential washout, ostomy, and line placement, fibrinogen low, needs cryoprecipirate, will also check inr/pt, cbc reviewed, electrolytes noted 05/24: Patient continues to be intubated on vent. He is s/p exploratory lap with wound washout and wound vac placement. 05/25: Pt is seen in the room, resting in bed. doing well since wound vac change , cbc reviewed, plt 163 05/26: Patient is is seen at bedside, intubated on vent. Wound vac still applied. No signs of pain at this time. Plt 116 . 1.7: again off pressors, plt somewhat lower, monitoring meds, on amio, antifungal as well, could be contributing, platelets and vitk given 05/28: had more surgeries yesterday with Right hemicolectomy, omentectomy & removal of wound-vac, off pressors, HD 05/29/18, on vent, stable 05/29: extubated but reintubated, on cefepime at this time, amiodarone, being seen by cards, procrit started 05/30: Pt is in ICU, Extubated and reintubated yesterday.Off Levophed and Heparin drip since surgery. On the Vent. Objective Last 24 Hour Vital Signs Date Time Temp Pulse Resp B/P (MAP) Pulse Ox O2 Delivery O2 Flow Rate FiO2 05/30/18 19:54 157/99 05/30/18 19:06 80 27 40 05/30/18 18:00 77 27 135/61 (85) 100 05/30/18 17:04 78 26 40 05/30/18 17:00 81 27 132/67 (88) 100 05/30/18 16:00 Mechanical Ventilator Endotracheal Tube Mechanical Ventilator 05/30/18 16:00 98.9 75 27 137/62 (87) 100 05/30/18 16:00 40 05/30/18 16:00 79 05/30/18 15:13 80 30 40 05/30/18 15:00 77 26 155/58 (90) 100 05/30/18 14:00 85 28 121/61 (81) 100 05/30/18 13:15 65 28 40 05/30/18 13:00 79 28 121/61 (81) 100 05/30/18 13:00 40 05/30/18 12:00 99.6 69 27 129/65 (86) 100 05/30/18 12:00 73 05/30/18 12:00 Mechanical Ventilator Endotracheal Tube Mechanical Ventilator 05/30/18 11:00 68 26 143/68 (93) 99 05/30/18 10:36 68 26 40 05/30/18 10:00 73 30 124/63 (83) 99 05/30/18 09:00 65 23 126/70 (88) 100 05/30/18 08:35 67 25 40 05/30/18 08:00 99.3 66 23 131/61 (84) 100 05/30/18 08:00 70 05/30/18 08:00 Mechanical Ventilator Endotracheal Tube Mechanical Ventilator 05/30/18 08:00 40 05/30/18 07:00 64 23 126/70 (88) 100 05/30/18 06:45 68 25 40 05/30/18 06:00 62 4 141/64 (89) 100 05/30/18 05:29 65 25 40 05/30/18 05:00 66 26 133/65 (87) 100 05/30/18 04:00 63 05/30/18 04:00 40 05/30/18 04:00 Mechanical Ventilator Bi-pap Mechanical Ventilator 05/30/18 04:00 99.2 63 26 126/85 (99) 100 05/30/18 03:02 67 27 40 05/30/18 03:00 65 26 126/92 (103) 100 05/30/18 02:00 56 25 146/64 (91) 100 05/30/18 01:00 70 16 50 05/30/18 01:00 63 25 122/79 (93) 100 05/30/18 00:00 62 05/30/18 00:00 50 05/30/18 00:00 Mechanical Ventilator Bi-pap Mechanical Ventilator 05/30/18 00:00 62 25 104/60 (75) 100 05/29/18 23:00 71 20 98/78 (85) 99 05/29/18 23:00 68 19 50 05/29/18 22:00 98 21 124/83 (97) 97 05/29/18 21:00 80 16 64/34 (44) 99 05/29/18 20:58 80 16 100 05/29/18 20:30 100 05/29/18 20:30 53 21 88/44 (59) 93 Intake and Output 05/29/18 05/30/18 19:00 07:00 Intake Total 1653.681 ml 1425.004 ml Output Total 2250 ml 410 ml Balance -596.319 ml 1015.004 ml IV Total 1653.681 ml 1425.004 ml Output Urine Total 25 ml 10 ml Drainage Total 225 ml 400 ml Hemodialysis UF 2000 ml # Bowel Movements 4 4 Laboratory Tests 05/29/18 21:47: Arterial Blood pH 7.306L, Arterial Blood Partial Pressure CO2 46.6H, Arterial Blood Partial Pressure O2 410.2H, Arterial Blood HCO3 22.7, Arterial Blood Oxygen Saturation 99.2, Arterial Blood Base Excess -3.6L, Luiz Test Positive 05/30/18 05:00: White Blood Count 17.4H, Red Blood Count 2.71L, Hemoglobin 7.9L, Hematocrit 23.6L, Mean Corpuscular Volume 87, Mean Corpuscular Hemoglobin 29.1, Mean Corpuscular Hemoglobin Concent 33.4, Red Cell Distribution Width 15.9H, Platelet Count 98L, Mean Platelet Volume 10.1, Neutrophils (%) (Auto) , Lymphocytes (%) (Auto) , Monocytes (%) (Auto) , Eosinophils (%) (Auto) , Basophils (%) (Auto) , Differential Total Cells Counted 100, Neutrophils % ( Manual) 90H, Lymphocytes % (Manual) 2L, Monocytes % (Manual) 4, Eosinophils % ( Manual) 0, Basophils % (Manual) 0, Band Neutrophils 4, Platelet Estimate DecreasedL, Platelet Morphology Normal, Hypochromasia 1+, Anisocytosis 1+, Sodium Level 135L, Potassium Level 3.7, Chloride Level 98, Carbon Dioxide Level 24, Anion Gap 13, Blood Urea Nitrogen 78H, Creatinine 4.2H, Estimat Glomerular Filtration Rate , Glucose Level 89, Uric Acid 5.1, Calcium Level 7.7L, Phosphorus Level 4.0, Magnesium Level 2.5H, Total Bilirubin 0.3, Aspartate Amino Transf (AST/SGOT) 29, Alanine Aminotransferase (ALT/SGPT) 11L, Alkaline Phosphatase 107, Troponin I 0.244H, C-Reactive Protein, Quantitative 8.0H, Pro-B -Type Natriuretic Peptide 75330E, Total Protein 4.2L, Albumin 0.8L, Globulin 3.4 , Albumin/Globulin Ratio 0.2L 05/30/18 08:00: Arterial Blood pH 7.410, Arterial Blood Partial Pressure CO2 35.7, Arterial Blood Partial Pressure O2 97.8, Arterial Blood HCO3 22.2, Arterial Blood Oxygen Saturation 96.9, Arterial Blood Base Excess -2.1L, Luiz Test Positive 05/30/18 16:30: Sodium Level 138, Potassium Level 2.8L, Chloride Level 103, Carbon Dioxide Level 21, Anion Gap 12, Blood Urea Nitrogen 84H, Creatinine 4.1H, Estimat Glomerular Filtration Rate , Glucose Level 131H, Calcium Level 7.1L, Total Bilirubin 0.4, Aspartate Amino Transf (AST/SGOT) 25, Alanine Aminotransferase ( ALT/SGPT) 11L, Alkaline Phosphatase 90, Total Protein 3.9L, Albumin 0.8L, Globulin 3.1, Albumin/Globulin Ratio 0.3L Height (Feet): 5 Height (Inches): 5.00 Weight (Pounds): 187 Objective PHYSICAL EXAMINATION: VITAL SIGNS: Have been reviewed HEENT: PERRLA. intubated, vent++ NECK: Supple. No lymphadenopathy CHEST: ++ intubated CARDIOVASCULAR: Tachycardic. GASTROINTESTINAL: Distended. Positive bowel sounds. Nontender. No organomegaly. ++ ryan drain in place EXTREMITY: 2+ edema. NEURO: responsive to simple command Reinaldo Leon MD May 30, 2018 20:16
--- NOTE | 2018-05-30 21:00 | NUR ---
NURSE NOTES: Pt noted to have one small BM at this time. Clear light brown stool noted. Turned and repositioned at this time. Will continue to monitor
--- NOTE | 2018-05-30 21:16 | General Progress Note ---
Assessment/Plan Problem List: (1) ACS (acute coronary syndrome) ICD Codes: I24.9 - Acute ischemic heart disease, unspecified SNOMED: 099588156 (2) ESRD (end stage renal disease) on dialysis ICD Codes: N18.6 - End stage renal disease; Z99.2 - Dependence on renal dialysis SNOMED: 786082932 (3) Depression ICD Codes: F32.9 - Major depressive disorder, single episode, unspecified SNOMED: 87240047 (4) Anemia ICD Codes: D64.9 - Anemia, unspecified SNOMED: 084263111 (5) Sacral decubitus ulcer, stage III ICD Codes: L89.153 - Pressure ulcer of sacral region, stage 3 SNOMED: 165715364, 591027869 (6) Major depression ICD Codes: F32.9 - Major depressive disorder, single episode, unspecified SNOMED: 580511028 (7) anxiety disorder (8) Atrial fibrillation ICD Codes: I48.91 - Unspecified atrial fibrillation SNOMED: 18447558 (9) Hypoxemia ICD Codes: R09.02 - Hypoxemia SNOMED: 975566190 (10) Hypotension ICD Codes: I95.9 - Hypotension, unspecified SNOMED: 03463518 (11) Shock ICD Codes: R57.9 - Shock, unspecified SNOMED: 68480939 (12) Elevated d-dimer ICD Codes: R79.89 - Other specified abnormal findings of blood chemistry SNOMED: 418941053 (13) encephalopathy due to metabolic factor Status: progressing Assessment/Plan respiratory failure on pressors intubated\ borderline bp not improving s/p washout of pus / multiple exploratory lap esrd on hd s/p septic shick check lytes check h/h intermettint on pressors poor prognosis Subjective ROS Limited/Unobtainable: Yes Allergies: Coded Allergies: No Known Allergies (Unverified , 11/12/12) Objective Last 24 Hour Vital Signs Date Time Temp Pulse Resp B/P (MAP) Pulse Ox O2 Delivery O2 Flow Rate FiO2 05/30/18 19:54 157/99 05/30/18 19:06 80 27 40 05/30/18 18:00 77 27 135/61 (85) 100 05/30/18 17:04 78 26 40 05/30/18 17:00 81 27 132/67 (88) 100 05/30/18 16:00 Mechanical Ventilator Endotracheal Tube Mechanical Ventilator 05/30/18 16:00 98.9 75 27 137/62 (87) 100 05/30/18 16:00 40 05/30/18 16:00 79 05/30/18 15:13 80 30 40 05/30/18 15:00 77 26 155/58 (90) 100 05/30/18 14:00 85 28 121/61 (81) 100 05/30/18 13:15 65 28 40 05/30/18 13:00 79 28 121/61 (81) 100 05/30/18 13:00 40 05/30/18 12:00 99.6 69 27 129/65 (86) 100 05/30/18 12:00 73 05/30/18 12:00 Mechanical Ventilator Endotracheal Tube Mechanical Ventilator 05/30/18 11:00 68 26 143/68 (93) 99 05/30/18 10:36 68 26 40 05/30/18 10:00 73 30 124/63 (83) 99 05/30/18 09:00 65 23 126/70 (88) 100 05/30/18 08:35 67 25 40 05/30/18 08:00 99.3 66 23 131/61 (84) 100 05/30/18 08:00 70 05/30/18 08:00 Mechanical Ventilator Endotracheal Tube Mechanical Ventilator 05/30/18 08:00 40 05/30/18 07:00 64 23 126/70 (88) 100 05/30/18 06:45 68 25 40 05/30/18 06:00 62 4 141/64 (89) 100 05/30/18 05:29 65 25 40 05/30/18 05:00 66 26 133/65 (87) 100 05/30/18 04:00 63 05/30/18 04:00 40 05/30/18 04:00 Mechanical Ventilator Bi-pap Mechanical Ventilator 05/30/18 04:00 99.2 63 26 126/85 (99) 100 05/30/18 03:02 67 27 40 05/30/18 03:00 65 26 126/92 (103) 100 05/30/18 02:00 56 25 146/64 (91) 100 05/30/18 01:00 70 16 50 05/30/18 01:00 63 25 122/79 (93) 100 05/30/18 00:00 62 05/30/18 00:00 50 05/30/18 00:00 Mechanical Ventilator Bi-pap Mechanical Ventilator 05/30/18 00:00 62 25 104/60 (75) 100 05/29/18 23:00 71 20 98/78 (85) 99 05/29/18 23:00 68 19 50 05/29/18 22:00 98 21 124/83 (97) 97 Intake and Output 05/29/18 05/30/18 19:00 07:00 Intake Total 1653.681 ml 1425.004 ml Output Total 2250 ml 410 ml Balance -596.319 ml 1015.004 ml IV Total 1653.681 ml 1425.004 ml Output Urine Total 25 ml 10 ml Drainage Total 225 ml 400 ml Hemodialysis UF 2000 ml # Bowel Movements 4 4 Laboratory Tests 05/29/18 21:47: Arterial Blood pH 7.306L, Arterial Blood Partial Pressure CO2 46.6H, Arterial Blood Partial Pressure O2 410.2H, Arterial Blood HCO3 22.7, Arterial Blood Oxygen Saturation 99.2, Arterial Blood Base Excess -3.6L, Luiz Test Positive 05/30/18 05:00: White Blood Count 17.4H, Red Blood Count 2.71L, Hemoglobin 7.9L, Hematocrit 23.6L, Mean Corpuscular Volume 87, Mean Corpuscular Hemoglobin 29.1, Mean Corpuscular Hemoglobin Concent 33.4, Red Cell Distribution Width 15.9H, Platelet Count 98L, Mean Platelet Volume 10.1, Neutrophils (%) (Auto) , Lymphocytes (%) (Auto) , Monocytes (%) (Auto) , Eosinophils (%) (Auto) , Basophils (%) (Auto) , Differential Total Cells Counted 100, Neutrophils % ( Manual) 90H, Lymphocytes % (Manual) 2L, Monocytes % (Manual) 4, Eosinophils % ( Manual) 0, Basophils % (Manual) 0, Band Neutrophils 4, Platelet Estimate DecreasedL, Platelet Morphology Normal, Hypochromasia 1+, Anisocytosis 1+, Sodium Level 135L, Potassium Level 3.7, Chloride Level 98, Carbon Dioxide Level 24, Anion Gap 13, Blood Urea Nitrogen 78H, Creatinine 4.2H, Estimat Glomerular Filtration Rate , Glucose Level 89, Uric Acid 5.1, Calcium Level 7.7L, Phosphorus Level 4.0, Magnesium Level 2.5H, Total Bilirubin 0.3, Aspartate Amino Transf (AST/SGOT) 29, Alanine Aminotransferase (ALT/SGPT) 11L, Alkaline Phosphatase 107, Troponin I 0.244H, C-Reactive Protein, Quantitative 8.0H, Pro-B -Type Natriuretic Peptide 42121H, Total Protein 4.2L, Albumin 0.8L, Globulin 3.4 , Albumin/Globulin Ratio 0.2L 05/30/18 08:00: Arterial Blood pH 7.410, Arterial Blood Partial Pressure CO2 35.7, Arterial Blood Partial Pressure O2 97.8, Arterial Blood HCO3 22.2, Arterial Blood Oxygen Saturation 96.9, Arterial Blood Base Excess -2.1L, Luiz Test Positive 05/30/18 16:30: Sodium Level 138, Potassium Level 2.8L, Chloride Level 103, Carbon Dioxide Level 21, Anion Gap 12, Blood Urea Nitrogen 84H, Creatinine 4.1H, Estimat Glomerular Filtration Rate , Glucose Level 131H, Calcium Level 7.1L, Total Bilirubin 0.4, Aspartate Amino Transf (AST/SGOT) 25, Alanine Aminotransferase ( ALT/SGPT) 11L, Alkaline Phosphatase 90, Total Protein 3.9L, Albumin 0.8L, Globulin 3.1, Albumin/Globulin Ratio 0.3L Height (Feet): 5 Height (Inches): 5.00 Weight (Pounds): 187 Neck: supple Cardiovascular: normal rate Respiratory/Chest: lungs clear Samantha Head MD May 30, 2018 21:16
--- NOTE | 2018-05-30 21:44 | General Progress Note ---
Assessment/Plan Assessment/Plan Assessment - septic shock - improved - abdominal infection - s/p exlap - resp failure - on vent - renal failure - malnutrition - on TPN Recommendation - supportive care - Abx - TF when OK with surgery - TPN per renal - follow labs - vent care - HD - guarded Subjective Allergies: Coded Allergies: No Known Allergies (Unverified , 11/12/12) Subjective above noted failed extubation on TPN Objective Last 24 Hour Vital Signs Date Time Temp Pulse Resp B/P (MAP) Pulse Ox O2 Delivery O2 Flow Rate FiO2 05/30/18 21:15 82 23 40 05/30/18 19:54 157/99 05/30/18 19:06 80 27 40 05/30/18 18:00 77 27 135/61 (85) 100 05/30/18 17:04 78 26 40 05/30/18 17:00 81 27 132/67 (88) 100 05/30/18 16:00 Mechanical Ventilator Endotracheal Tube Mechanical Ventilator 05/30/18 16:00 98.9 75 27 137/62 (87) 100 05/30/18 16:00 40 05/30/18 16:00 79 05/30/18 15:13 80 30 40 05/30/18 15:00 77 26 155/58 (90) 100 05/30/18 14:00 85 28 121/61 (81) 100 05/30/18 13:15 65 28 40 05/30/18 13:00 79 28 121/61 (81) 100 05/30/18 13:00 40 05/30/18 12:00 99.6 69 27 129/65 (86) 100 05/30/18 12:00 73 05/30/18 12:00 Mechanical Ventilator Endotracheal Tube Mechanical Ventilator 05/30/18 11:00 68 26 143/68 (93) 99 05/30/18 10:36 68 26 40 05/30/18 10:00 73 30 124/63 (83) 99 05/30/18 09:00 65 23 126/70 (88) 100 05/30/18 08:35 67 25 40 05/30/18 08:00 99.3 66 23 131/61 (84) 100 05/30/18 08:00 70 05/30/18 08:00 Mechanical Ventilator Endotracheal Tube Mechanical Ventilator 05/30/18 08:00 40 05/30/18 07:00 64 23 126/70 (88) 100 05/30/18 06:45 68 25 40 05/30/18 06:00 62 4 141/64 (89) 100 05/30/18 05:29 65 25 40 05/30/18 05:00 66 26 133/65 (87) 100 05/30/18 04:00 63 05/30/18 04:00 40 05/30/18 04:00 Mechanical Ventilator Bi-pap Mechanical Ventilator 05/30/18 04:00 99.2 63 26 126/85 (99) 100 05/30/18 03:02 67 27 40 05/30/18 03:00 65 26 126/92 (103) 100 05/30/18 02:00 56 25 146/64 (91) 100 05/30/18 01:00 70 16 50 05/30/18 01:00 63 25 122/79 (93) 100 05/30/18 00:00 62 05/30/18 00:00 50 05/30/18 00:00 Mechanical Ventilator Bi-pap Mechanical Ventilator 05/30/18 00:00 62 25 104/60 (75) 100 05/29/18 23:00 71 20 98/78 (85) 99 05/29/18 23:00 68 19 50 05/29/18 22:00 98 21 124/83 (97) 97 Intake and Output 05/29/18 05/30/18 19:00 07:00 Intake Total 1653.681 ml 1425.004 ml Output Total 2250 ml 410 ml Balance -596.319 ml 1015.004 ml IV Total 1653.681 ml 1425.004 ml Output Urine Total 25 ml 10 ml Drainage Total 225 ml 400 ml Hemodialysis UF 2000 ml # Bowel Movements 4 4 Laboratory Tests 05/29/18 21:47: Arterial Blood pH 7.306L, Arterial Blood Partial Pressure CO2 46.6H, Arterial Blood Partial Pressure O2 410.2H, Arterial Blood HCO3 22.7, Arterial Blood Oxygen Saturation 99.2, Arterial Blood Base Excess -3.6L, Luiz Test Positive 05/30/18 05:00: White Blood Count 17.4H, Red Blood Count 2.71L, Hemoglobin 7.9L, Hematocrit 23.6L, Mean Corpuscular Volume 87, Mean Corpuscular Hemoglobin 29.1, Mean Corpuscular Hemoglobin Concent 33.4, Red Cell Distribution Width 15.9H, Platelet Count 98L, Mean Platelet Volume 10.1, Neutrophils (%) (Auto) , Lymphocytes (%) (Auto) , Monocytes (%) (Auto) , Eosinophils (%) (Auto) , Basophils (%) (Auto) , Differential Total Cells Counted 100, Neutrophils % ( Manual) 90H, Lymphocytes % (Manual) 2L, Monocytes % (Manual) 4, Eosinophils % ( Manual) 0, Basophils % (Manual) 0, Band Neutrophils 4, Platelet Estimate DecreasedL, Platelet Morphology Normal, Hypochromasia 1+, Anisocytosis 1+, Sodium Level 135L, Potassium Level 3.7, Chloride Level 98, Carbon Dioxide Level 24, Anion Gap 13, Blood Urea Nitrogen 78H, Creatinine 4.2H, Estimat Glomerular Filtration Rate , Glucose Level 89, Uric Acid 5.1, Calcium Level 7.7L, Phosphorus Level 4.0, Magnesium Level 2.5H, Total Bilirubin 0.3, Aspartate Amino Transf (AST/SGOT) 29, Alanine Aminotransferase (ALT/SGPT) 11L, Alkaline Phosphatase 107, Troponin I 0.244H, C-Reactive Protein, Quantitative 8.0H, Pro-B -Type Natriuretic Peptide 77191D, Total Protein 4.2L, Albumin 0.8L, Globulin 3.4 , Albumin/Globulin Ratio 0.2L 05/30/18 08:00: Arterial Blood pH 7.410, Arterial Blood Partial Pressure CO2 35.7, Arterial Blood Partial Pressure O2 97.8, Arterial Blood HCO3 22.2, Arterial Blood Oxygen Saturation 96.9, Arterial Blood Base Excess -2.1L, Luiz Test Positive 05/30/18 16:30: Sodium Level 138, Potassium Level 2.8L, Chloride Level 103, Carbon Dioxide Level 21, Anion Gap 12, Blood Urea Nitrogen 84H, Creatinine 4.1H, Estimat Glomerular Filtration Rate , Glucose Level 131H, Calcium Level 7.1L, Total Bilirubin 0.4, Aspartate Amino Transf (AST/SGOT) 25, Alanine Aminotransferase ( ALT/SGPT) 11L, Alkaline Phosphatase 90, Total Protein 3.9L, Albumin 0.8L, Globulin 3.1, Albumin/Globulin Ratio 0.3L Height (Feet): 5 Height (Inches): 5.00 Weight (Pounds): 187 Objective Intubated NCAT ETT / OGT Supple Coarse BS RR abd more flat, (+) large dressing with VELVET x 2 no edema awake, looks at Lisa Tsang MD May 30, 2018 21:44
--- NOTE | 2018-05-30 23:00 | NUR ---
NURSE NOTES: Large dark green bile loose stool noted. 1st dress heart block. VS Stable. Will continue to monitor
[2018-05-31] VITALS (24 sets, daily range): BP systolic 115–169; BP diastolic 51–82
[2018-05-31] MEDS: NovoLOG Insulin Flexpen SUBQ SCH ×11 (00:50→21:00)
--- NOTE | 2018-05-31 01:00 | NUR ---
NURSE NOTES: Pt sleeping at this time. Tolerating current vent setting. TPN running as ordered. No signs of distress noted. Will continue to monitor.
--- NOTE | 2018-05-31 03:00 | NUR ---
NURSE NOTES: CHG bath given at this time. Pt noted to have one moderate amount of mucus stool. Turned and repositioned for comfort. Will continue to monitor.
--- NOTE | 2018-05-31 04:27 | NUR ---
NURSE NOTES: Pain medication provided at this time. see eMar. Pt awake and when asked if he has pain, able to nod yes. Will continue to monitor
--- NOTE | 2018-05-31 05:00 | NUR ---
NURSE NOTES: BS 103 at this time. No coverage given as per sliding scale. scheduled units held also. Will continue to monitor
[2018-05-31] MEDS: Hydrocortisone 100mg Inj IV SCH ×3 (06:04→22:09)
[2018-05-31 06:14] LABS: HEMATOCRIT 24.1 % (42.0-52.0); MEAN CORPUSCULAR VOLUME 88 FL (80-99); PLATELET COUNT 105 K/UL (150-450); RED BLOOD COUNT 2.75 M/UL (4.70-6.10); RED CELL DISTRIBUTION WIDTH 16.1 % (11.6-14.8); WHITE BLOOD COUNT 17.7 K/UL (4.8-10.8)
--- NOTE | 2018-05-31 07:00 | NUR ---
Received Patient on Vent settings of ACVC RR 16, VT 500, FIO2 40%, PEEP +5. Patient orally intubated with 7.5 ETT at 23cm at the lip secured by anchorfast. Diminished rhonchi are heard bilaterally. SX extremely thick melendrez bloody secretions. Vent plugged into red outlet. Alarms are on and audible. Will continue to monitor throughout the day.
[2018-05-31 07:04] LABS: % IRON SATURATION 27 % (15-50); IRON 16 ug/dL (50-175); TOTAL IRON BINDING CAPACITY 60 ug/dL (250-450)
[2018-05-31 07:13] LABS: ALANINE AMINOTRANSFERASE 11 U/L (12-78); ALBUMIN 0.9 G/DL (3.4-5.0); ALBUMIN/GLOBULIN RATIO 0.2 (1.0-2.7); ALKALINE PHOSPHATASE 111 U/L (46-116); ANION GAP 17 mmol/L (5-15); ASPARTATE AMINO TRANSFERASE 26 U/L (15-37); BILIRUBIN,TOTAL 0.4 MG/DL (0.2-1.0); BLOOD UREA NITROGEN 98 mg/dL (7-18); CALCIUM 7.6 MG/DL (8.5-10.1); CARBON DIOXIDE 21 MMOL/L (21-32); CHLORIDE 99 MMOL/L (98-107); CHOLESTEROL 76 MG/DL (< 200); CREATININE 4.7 MG/DL (0.55-1.30); FERRITIN 1834 NG/ML (8-388); HDL CHOLESTEROL 23 MG/DL (40-60); PHOSPHORUS 4.7 MG/DL (2.5-4.9); POTASSIUM 2.9 MMOL/L (3.5-5.1); SODIUM 137 MMOL/L (136-145); TRIGLYCERIDES 76 MG/DL (30-150)
--- NOTE | 2018-05-31 07:22 | NUR ---
HAND-OFF: Report given to Kal AGUILA using SBAR. abdominal dressding remains dry and intact. VS stable. No signs of distress.
--- NOTE | 2018-05-31 07:23 | NUR ---
NURSE NOTES: Report received from MINGO Emery. Pt is alert, awake, and able to answer for simple questions. Sinus rhythm with 1 AVB on lunchroom monitor. Orally intubated. ETT 7.5/25cm at lip line. AC 16, TV 500, FiO2 40%, P 5. O2 sat 99%. No respiratory distress noted. Dressing on abdominal surgical incision dry and intact. JPx2 is draining serosang liquid. Right femoral Donis for HD noted. Left subclavian TLC patent and asymptomatic. TPN is running at 85.4 cc/hr. Bilateral upper extremities edema noted. Bed in lowest position. Side rails up x3. Will resume plan of care. Addendum: 05/31/18 at 1233 by LOIUE TAVAREZ RN RN NURSE NOTES: Report received from MINGO Emery. Pt is alert, awake, and able to answer for simple questions. Sinus rhythm with 1 AVB on lunchroom monitor. Orally intubated. ETT 7.5/24cm at lip line. AC 16, TV 500, FiO2 40%, P 5. O2 sat 99%. No respiratory distress noted. Dressing on abdominal surgical incision dry and intact. JPx2 is draining serosang liquid. Right femoral Donis for HD noted. Left subclavian TLC patent and asymptomatic. TPN is running at 85.4 cc/hr. Bilateral upper extremities edema noted. Bed in lowest position. Side rails up x3. Will resume plan of care.
[2018-05-31] MEDS: Pantoprazole Inj IVP SCH ×2 (08:30→21:03)
[2018-05-31] MEDS: Levemir Flexpen SUBQ SCH ×2 (08:33→21:00)
--- NOTE | 2018-05-31 08:49 | NUR ---
NURSE NOTES: Ventilator kept alarming and pt was desaturating to 80's%. RT inflated balloon and notified with different placement at lip line. STAT CXR ordered and taken. Awaiting the result.
--- NOTE | 2018-05-31 09:26 | General Progress Note ---
Assessment/Plan Assessment/Plan (1) Abdominal pain (2) S/p Lap Cholecystectomy (3) Encephalopathy /septic shock (4) ESRD on hemodialysis (5) S/p emergent exploratory laboratory small bowel resection omentectomy due to small bowel perforation in distal ileum Patient to be continued on Dilaudid and Tylenol. Parameters to be continued. D/w Dr. Busby and he concurred. Subjective Date patient seen: May 31, 2018 Time patient seen: 09:00 - am ROS Limited/Unobtainable: Yes Allergies: Coded Allergies: No Known Allergies (Unverified , 11/12/12) Subjective Patient is in bed and intubated on vent. One dose of Dilaudid given in the last 24hrs. Having dialysis today, no signs of pain or distress. Objective Last 24 Hour Vital Signs Date Time Temp Pulse Resp B/P (MAP) Pulse Ox O2 Delivery O2 Flow Rate FiO2 05/31/18 08:49 100 05/31/18 08:45 84 21 40 05/31/18 08:00 Mechanical Ventilator Endotracheal Tube Mechanical Ventilator 05/31/18 08:00 40 05/31/18 08:00 97.9 89 22 151/64 (93) 100 05/31/18 07:25 83 05/31/18 07:09 85 21 40 05/31/18 07:00 86 20 149/67 (94) 100 05/31/18 06:00 79 20 144/63 (90) 100 05/31/18 05:04 81 21 40 05/31/18 05:00 84 27 159/64 (95) 100 05/31/18 04:00 Mechanical Ventilator Endotracheal Tube Mechanical Ventilator 05/31/18 04:00 84 05/31/18 04:00 40 05/31/18 04:00 98.3 88 27 157/66 (96) 100 05/31/18 03:00 84 27 169/82 (111) 100 05/31/18 02:51 77 27 40 05/31/18 02:00 80 26 169/82 (111) 100 05/31/18 01:32 78 27 Mechanical Ventilator 40 05/31/18 01:30 79 26 40 05/31/18 01:00 78 26 152/70 (97) 100 05/31/18 00:00 82 05/31/18 00:00 98.1 77 27 119/72 (88) 100 05/31/18 00:00 40 05/31/18 00:00 Mechanical Ventilator Endotracheal Tube Mechanical Ventilator 05/30/18 23:00 102 29 136/83 (100) 100 05/30/18 22:44 80 23 40 05/30/18 22:00 88 24 143/64 (90) 100 05/30/18 21:15 82 23 40 05/30/18 21:00 78 24 131/61 (84) 100 05/30/18 20:00 84 05/30/18 20:00 40 05/30/18 20:00 90 28 135/61 (85) 100 05/30/18 20:00 Mechanical Ventilator Endotracheal Tube Mechanical Ventilator 05/30/18 19:54 157/99 05/30/18 19:06 80 27 40 05/30/18 19:00 99.1 89 27 130/75 (93) 100 05/30/18 18:00 77 27 135/61 (85) 100 05/30/18 17:04 78 26 40 05/30/18 17:00 81 27 132/67 (88) 100 05/30/18 16:00 Mechanical Ventilator Endotracheal Tube Mechanical Ventilator 05/30/18 16:00 98.9 75 27 137/62 (87) 100 05/30/18 16:00 40 05/30/18 16:00 79 05/30/18 15:13 80 30 40 05/30/18 15:00 77 26 155/58 (90) 100 05/30/18 14:00 85 28 121/61 (81) 100 05/30/18 13:15 65 28 40 05/30/18 13:00 79 28 121/61 (81) 100 05/30/18 13:00 40 05/30/18 12:00 99.6 69 27 129/65 (86) 100 05/30/18 12:00 73 05/30/18 12:00 Mechanical Ventilator Endotracheal Tube Mechanical Ventilator 05/30/18 11:00 68 26 143/68 (93) 99 05/30/18 10:36 68 26 40 05/30/18 10:00 73 30 124/63 (83) 99 Intake and Output 05/30/18 05/31/18 19:00 07:00 Intake Total 1299.587 ml 1025.004 ml Output Total 210 ml 210 ml Balance 1089.587 ml 815.004 ml IV Total 1299.587 ml 1025.004 ml Output Urine Total 0 ml Drainage Total 210 ml 210 ml # Bowel Movements 6 7 Laboratory Tests 05/30/18 16:30: Sodium Level 138, Potassium Level 2.8L, Chloride Level 103, Carbon Dioxide Level 21, Anion Gap 12, Blood Urea Nitrogen 84H, Creatinine 4.1H, Estimat Glomerular Filtration Rate , Glucose Level 131H, Calcium Level 7.1L, Total Bilirubin 0.4, Aspartate Amino Transf (AST/SGOT) 25, Alanine Aminotransferase ( ALT/SGPT) 11L, Alkaline Phosphatase 90, Total Protein 3.9L, Albumin 0.8L, Globulin 3.1, Albumin/Globulin Ratio 0.3L 05/31/18 05:20: Sodium Level 137, Potassium Level 2.9L, Chloride Level 99, Carbon Dioxide Level 21, Anion Gap 17H, Blood Urea Nitrogen 98H, Creatinine 4.7H, Estimat Glomerular Filtration Rate , Glucose Level 120H, Calcium Level 7.6L, Total Bilirubin 0.4, Aspartate Amino Transf (AST/SGOT) 26, Alanine Aminotransferase (ALT/SGPT) 11L, Alkaline Phosphatase 111, Total Protein 4.5L, Albumin 0.9L, Globulin 3.6, Albumin/Globulin Ratio 0.2L, White Blood Count 17.7H, Red Blood Count 2.75L, Hemoglobin 8.0L, Hematocrit 24.1L, Mean Corpuscular Volume 88, Mean Corpuscular Hemoglobin 29.0, Mean Corpuscular Hemoglobin Concent 33.0, Red Cell Distribution Width 16.1H, Platelet Count 105L, Mean Platelet Volume 9.5, Neutrophils (%) (Auto) , Lymphocytes (%) (Auto) , Monocytes (%) (Auto) , Eosinophils (%) (Auto) , Basophils (%) (Auto) , Neutrophils % (Manual) [Pending] , Lymphocytes % (Manual) [Pending], Platelet Estimate [Pending], Platelet Morphology [Pending], Phosphorus Level 4.7, Iron Level 16L, Total Iron Binding Capacity 60L, Percent Iron Saturation 27, Unsaturated Iron Binding 44L, Ferritin 1834H, Triglycerides Level 76, Cholesterol Level 76, LDL Cholesterol 41 , HDL Cholesterol 23L, Cholesterol/HDL Ratio 3.3 Height (Feet): 5 Height (Inches): 5.00 Weight (Pounds): 187 Objective GENERAL: Intubated. LUNGS: Decreased breath sounds bilaterally. HEART: S1 S2 Regular. ABDOMEN: Bandages applied with drains noted. EXTREMITIES: No cyanosis. No clubbing. Sid Holland May 31, 2018 09:26
--- NOTE | 2018-05-31 09:28 | NUR ---
RADIOLOGY DEPT CHEST X-RAY DONE-P.DYE
--- NOTE | 2018-05-31 10:04 | NUR ---
NURSE NOTES: Pt is getting dialyzed at bedside. Dr Arroyo here to see the patient. Order received, noted, and carried out.
--- NOTE | 2018-05-31 10:12 | Nephrology Progress Note ---
Assessment/Plan Problem List: (1) ESRD (end stage renal disease) on dialysis (2) Perforated bowel (3) Hyponatremia (4) Major depression (5) Nausea & vomiting (6) H/O abdominal surgery Assessment: recent (7) Shock Assessment recent abdominal surgery hemodynamically stablized over night Presents with CHF and Low Na ESRD ACS DM HTN h/o GI bleed Depression Plan remains intubated off pressors on TPN- adjust Na and K and Mag in TPN HD 05/29 - 2 liters remove next HD in process now aim to correct lytes on steroids vented insulin for high BS hold dig , check levels, resume as needed Has abd surgery 05/15 Perforated bowel graft clotted , has a femoral felice right HOLD ALL MIND ALTERING MEDS - DC all po meds FLUID CHALLENGE pressors as needed BP HR Pain control discussed with RN and Dr Jones IV protonix Subjective ROS Limited/Unobtainable: Yes Objective Objective Last 24 Hour Vital Signs Date Time Temp Pulse Resp B/P (MAP) Pulse Ox O2 Delivery O2 Flow Rate FiO2 05/31/18 08:49 100 05/31/18 08:45 84 21 40 05/31/18 08:00 Mechanical Ventilator Endotracheal Tube Mechanical Ventilator 05/31/18 08:00 40 05/31/18 08:00 97.9 89 22 151/64 (93) 100 05/31/18 07:25 83 05/31/18 07:09 85 21 40 05/31/18 07:00 86 20 149/67 (94) 100 05/31/18 06:00 79 20 144/63 (90) 100 05/31/18 05:04 81 21 40 05/31/18 05:00 84 27 159/64 (95) 100 05/31/18 04:00 Mechanical Ventilator Endotracheal Tube Mechanical Ventilator 05/31/18 04:00 84 05/31/18 04:00 40 05/31/18 04:00 98.3 88 27 157/66 (96) 100 05/31/18 03:00 84 27 169/82 (111) 100 05/31/18 02:51 77 27 40 05/31/18 02:00 80 26 169/82 (111) 100 05/31/18 01:32 78 27 Mechanical Ventilator 40 05/31/18 01:30 79 26 40 05/31/18 01:00 78 26 152/70 (97) 100 05/31/18 00:00 82 05/31/18 00:00 98.1 77 27 119/72 (88) 100 05/31/18 00:00 40 05/31/18 00:00 Mechanical Ventilator Endotracheal Tube Mechanical Ventilator 05/30/18 23:00 102 29 136/83 (100) 100 05/30/18 22:44 80 23 40 05/30/18 22:00 88 24 143/64 (90) 100 05/30/18 21:15 82 23 40 05/30/18 21:00 78 24 131/61 (84) 100 05/30/18 20:00 84 05/30/18 20:00 40 05/30/18 20:00 90 28 135/61 (85) 100 05/30/18 20:00 Mechanical Ventilator Endotracheal Tube Mechanical Ventilator 05/30/18 19:54 157/99 05/30/18 19:06 80 27 40 05/30/18 19:00 99.1 89 27 130/75 (93) 100 05/30/18 18:00 77 27 135/61 (85) 100 05/30/18 17:04 78 26 40 05/30/18 17:00 81 27 132/67 (88) 100 05/30/18 16:00 Mechanical Ventilator Endotracheal Tube Mechanical Ventilator 05/30/18 16:00 98.9 75 27 137/62 (87) 100 05/30/18 16:00 40 05/30/18 16:00 79 05/30/18 15:13 80 30 40 05/30/18 15:00 77 26 155/58 (90) 100 05/30/18 14:00 85 28 121/61 (81) 100 05/30/18 13:15 65 28 40 05/30/18 13:00 79 28 121/61 (81) 100 05/30/18 13:00 40 05/30/18 12:00 99.6 69 27 129/65 (86) 100 05/30/18 12:00 73 05/30/18 12:00 Mechanical Ventilator Endotracheal Tube Mechanical Ventilator 05/30/18 11:00 68 26 143/68 (93) 99 05/30/18 10:36 68 26 40 Intake and Output 05/30/18 05/31/18 19:00 07:00 Intake Total 1299.587 ml 1025.004 ml Output Total 210 ml 210 ml Balance 1089.587 ml 815.004 ml IV Total 1299.587 ml 1025.004 ml Output Urine Total 0 ml Drainage Total 210 ml 210 ml # Bowel Movements 6 7 Laboratory Tests 05/30/18 16:30: Sodium Level 138, Potassium Level 2.8L, Chloride Level 103, Carbon Dioxide Level 21, Anion Gap 12, Blood Urea Nitrogen 84H, Creatinine 4.1H, Estimat Glomerular Filtration Rate , Glucose Level 131H, Calcium Level 7.1L, Total Bilirubin 0.4, Aspartate Amino Transf (AST/SGOT) 25, Alanine Aminotransferase ( ALT/SGPT) 11L, Alkaline Phosphatase 90, Total Protein 3.9L, Albumin 0.8L, Globulin 3.1, Albumin/Globulin Ratio 0.3L 05/31/18 05:20: Sodium Level 137, Potassium Level 2.9L, Chloride Level 99, Carbon Dioxide Level 21, Anion Gap 17H, Blood Urea Nitrogen 98H, Creatinine 4.7H, Estimat Glomerular Filtration Rate , Glucose Level 120H, Calcium Level 7.6L, Total Bilirubin 0.4, Aspartate Amino Transf (AST/SGOT) 26, Alanine Aminotransferase (ALT/SGPT) 11L, Alkaline Phosphatase 111, Total Protein 4.5L, Albumin 0.9L, Globulin 3.6, Albumin/Globulin Ratio 0.2L, White Blood Count 17.7H, Red Blood Count 2.75L, Hemoglobin 8.0L, Hematocrit 24.1L, Mean Corpuscular Volume 88, Mean Corpuscular Hemoglobin 29.0, Mean Corpuscular Hemoglobin Concent 33.0, Red Cell Distribution Width 16.1H, Platelet Count 105L, Mean Platelet Volume 9.5, Neutrophils (%) (Auto) , Lymphocytes (%) (Auto) , Monocytes (%) (Auto) , Eosinophils (%) (Auto) , Basophils (%) (Auto) , Differential Total Cells Counted 100, Neutrophils % (Manual) 92H, Lymphocytes % (Manual) 1L, Monocytes % (Manual) 2, Eosinophils % (Manual) 0, Basophils % (Manual) 0, Band Neutrophils 5 , Platelet Estimate DecreasedL, Platelet Morphology Normal, Anisocytosis 2+, Phosphorus Level 4.7, Iron Level 16L, Total Iron Binding Capacity 60L, Percent Iron Saturation 27, Unsaturated Iron Binding 44L, Ferritin 1834H, Triglycerides Level 76, Cholesterol Level 76, LDL Cholesterol 41, HDL Cholesterol 23L, Cholesterol/HDL Ratio 3.3 Height (Feet): 5 Height (Inches): 5.00 Weight (Pounds): 187 General Appearance: no apparent distress EENT: other - on vent Cardiovascular: normal rate Respiratory/Chest: decreased breath sounds Abdomen: distended Objective no change Maurilio Arroyo MD May 31, 2018 10:12
[2018-05-31 11:10] LABS: ANION GAP 10 mmol/L (5-15); BLOOD UREA NITROGEN 61 mg/dL (7-18); CALCIUM 7.7 MG/DL (8.5-10.1); CARBON DIOXIDE 29 MMOL/L (21-32); CHLORIDE 100 MMOL/L (98-107); CREATININE 2.9 MG/DL (0.55-1.30); POTASSIUM 3.4 MMOL/L (3.5-5.1); SODIUM 139 MMOL/L (136-145)
--- NOTE | 2018-05-31 11:26 | Diagnostic Imaging Report ---
Indication: Dyspnea Comparison: 05/29/2018 A single view chest radiograph was obtained. Findings: Tubes and lines are stable in good position. Cardiomegaly is present. Left basilar density may be infiltrate/atelectasis or pleural effusion. Mild interstitial edema suspected. IMPRESSION: Mild interstitial edema suspected. Left basal infiltrate and/or effusion.
[2018-05-31] MEDS: Vasopressin 100 UNITS in NS 95 ML IV SCH (11:30)
--- NOTE | 2018-05-31 12:25 | Infectious Diseases Prog Note ---
Assessment/Plan Assessment/Plan A: 1. serratia , Enterobacter sepsis with shock 2. VRE colonization 3. diabetes mellitus 4. hypertension 5. 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 leucocytosis 6. A fib with RVR 7. Small bowel perforation 8. Perioperative respiratory failure 9. Atelectasis versus Pneumonia 10 Peritonitis with Citrobacter & Serratia 11. sepsis, septic shock 12. Lactic acidosis 13. Anemia 14. Anastomosis leak 15. Hypokalemia P 1. continue Cefepime , Flagyl , Levaquin & Fluconazole 2.Continue TPN Subjective ROS Limited/Unobtainable: Yes Constitutional: Reports: other - afebrile Allergies: Coded Allergies: No Known Allergies (Unverified , 11/12/12) Objective Vital Signs Last 24 Hour Vital Signs Date Time Temp Pulse Resp B/P (MAP) Pulse Ox O2 Delivery O2 Flow Rate FiO2 05/31/18 11:00 88 37 115/51 (72) 94 05/31/18 10:48 Mechanical Ventilator 100 05/31/18 10:45 Mechanical Ventilator 100 05/31/18 10:34 92 24 40 05/31/18 10:00 90 34 123/57 (79) 100 05/31/18 09:00 93 34 149/58 (88) 93 05/31/18 08:49 100 05/31/18 08:45 84 21 40 05/31/18 08:00 Mechanical Ventilator Endotracheal Tube Mechanical Ventilator 05/31/18 08:00 40 05/31/18 08:00 97.9 89 22 151/64 (93) 100 05/31/18 07:25 83 05/31/18 07:09 85 21 40 05/31/18 07:00 86 20 149/67 (94) 100 05/31/18 06:00 79 20 144/63 (90) 100 05/31/18 05:04 81 21 40 05/31/18 05:00 84 27 159/64 (95) 100 05/31/18 04:00 Mechanical Ventilator Endotracheal Tube Mechanical Ventilator 05/31/18 04:00 84 05/31/18 04:00 40 05/31/18 04:00 98.3 88 27 157/66 (96) 100 05/31/18 03:00 84 27 169/82 (111) 100 05/31/18 02:51 77 27 40 05/31/18 02:00 80 26 169/82 (111) 100 05/31/18 01:32 78 27 Mechanical Ventilator 40 05/31/18 01:30 79 26 40 05/31/18 01:00 78 26 152/70 (97) 100 05/31/18 00:00 82 05/31/18 00:00 98.1 77 27 119/72 (88) 100 05/31/18 00:00 40 05/31/18 00:00 Mechanical Ventilator Endotracheal Tube Mechanical Ventilator 05/30/18 23:00 102 29 136/83 (100) 100 05/30/18 22:44 80 23 40 05/30/18 22:00 88 24 143/64 (90) 100 05/30/18 21:15 82 23 40 05/30/18 21:00 78 24 131/61 (84) 100 05/30/18 20:00 84 05/30/18 20:00 40 05/30/18 20:00 90 28 135/61 (85) 100 05/30/18 20:00 Mechanical Ventilator Endotracheal Tube Mechanical Ventilator 05/30/18 19:54 157/99 05/30/18 19:06 80 27 40 05/30/18 19:00 99.1 89 27 130/75 (93) 100 05/30/18 18:00 77 27 135/61 (85) 100 05/30/18 17:04 78 26 40 05/30/18 17:00 81 27 132/67 (88) 100 05/30/18 16:00 Mechanical Ventilator Endotracheal Tube Mechanical Ventilator 05/30/18 16:00 98.9 75 27 137/62 (87) 100 05/30/18 16:00 40 05/30/18 16:00 79 05/30/18 15:13 80 30 40 05/30/18 15:00 77 26 155/58 (90) 100 05/30/18 14:00 85 28 121/61 (81) 100 05/30/18 13:15 65 28 40 05/30/18 13:00 79 28 121/61 (81) 100 05/30/18 13:00 40 Height (Feet): 5 Height (Inches): 5.00 Weight (Pounds): 187 HEENT: other - orally intubated Respiratory/Chest: lungs clear, other - Tachypneic, on ventilator Cardiovascular: normal rate, other - R femoral HD line, Left subclavian line Abdomen: other - surgical dressing, drains unchange Extremities: other - edema of hands Neurologic/Psychiatric: alert Laboratory Tests Test 05/30/18 16:30 05/31/18 05:20 05/31/18 10:40 Sodium Level 138 MMOL/L (136-145) 137 MMOL/L (136-145) 139 MMOL/L (136-145) Potassium Level 2.8 MMOL/L (3.5-5.1) L 2.9 MMOL/L (3.5-5.1) L 3.4 MMOL/L (3.5-5.1) L Chloride Level 103 MMOL/L (98-107) 99 MMOL/L (98-107) 100 MMOL/L (98-107) Carbon Dioxide Level 21 MMOL/L (21-32) 21 MMOL/L (21-32) 29 MMOL/L (21-32) Anion Gap 12 mmol/L (5-15) 17 mmol/L (5-15) H 10 mmol/L (5-15) Blood Urea Nitrogen 84 mg/dL (7-18) H 98 mg/dL (7-18) H 61 mg/dL (7-18) H Creatinine 4.1 MG/DL (0.55-1.30) H 4.7 MG/DL (0.55-1.30) H 2.9 MG/DL (0.55-1.30) H Estimat Glomerular Filtration Rate mL/min (>60) mL/min (>60) mL/min (>60) Glucose Level 131 MG/DL (74-106) H 120 MG/DL (74-106) H 136 MG/DL (74-106) H Calcium Level 7.1 MG/DL (8.5-10.1) L 7.6 MG/DL (8.5-10.1) L 7.7 MG/DL (8.5-10.1) L Total Bilirubin 0.4 MG/DL (0.2-1.0) 0.4 MG/DL (0.2-1.0) Aspartate Amino Transf (AST/SGOT) 25 U/L (15-37) 26 U/L (15-37) Alanine Aminotransferase (ALT/SGPT) 11 U/L (12-78) L 11 U/L (12-78) L Alkaline Phosphatase 90 U/L (46-116) 111 U/L (46-116) Total Protein 3.9 G/DL (6.4-8.2) L 4.5 G/DL (6.4-8.2) L Albumin 0.8 G/DL (3.4-5.0) L 0.9 G/DL (3.4-5.0) L Globulin 3.1 g/dL 3.6 g/dL Albumin/Globulin Ratio 0.3 (1.0-2.7) L 0.2 (1.0-2.7) L White Blood Count 17.7 K/UL (4.8-10.8) H Red Blood Count 2.75 M/UL (4.70-6.10) L Hemoglobin 8.0 G/DL (14.2-18.0) L Hematocrit 24.1 % (42.0-52.0) L Mean Corpuscular Volume 88 FL (80-99) Mean Corpuscular Hemoglobin 29.0 PG (27.0-31.0) Mean Corpuscular Hemoglobin Concent 33.0 G/DL (32.0-36.0) Red Cell Distribution Width 16.1 % (11.6-14.8) H Platelet Count 105 K/UL (150-450) L Mean Platelet Volume 9.5 FL (6.5-10.1) Neutrophils (%) (Auto) % (45.0-75.0) Lymphocytes (%) (Auto) % (20.0-45.0) Monocytes (%) (Auto) % (1.0-10.0) Eosinophils (%) (Auto) % (0.0-3.0) Basophils (%) (Auto) % (0.0-2.0) Differential Total Cells Counted 100 Neutrophils % (Manual) 92 % (45-75) H Lymphocytes % (Manual) 1 % (20-45) L Monocytes % (Manual) 2 % (1-10) Eosinophils % (Manual) 0 % (0-3) Basophils % (Manual) 0 % (0-2) Band Neutrophils 5 % (0-8) Platelet Estimate Decreased L Platelet Morphology Normal Anisocytosis 2+ Phosphorus Level 4.7 MG/DL (2.5-4.9) Iron Level 16 ug/dL (50-175) L Total Iron Binding Capacity 60 ug/dL (250-450) L Percent Iron Saturation 27 % (15-50) Unsaturated Iron Binding 44 ug/dL (112-346) L Ferritin 1834 NG/ML (8-388) H Triglycerides Level 76 MG/DL (30-150) Cholesterol Level 76 MG/DL (< 200) LDL Cholesterol 41 mg/dL (<100) HDL Cholesterol 23 MG/DL (40-60) L Cholesterol/HDL Ratio 3.3 (3.3-4.4) Current Medications Medications (Trade) Dose Ordered Sig/Min Route PRN Reason Start Time Stop Time Status Last Admin Dose Admin Acetaminophen (Tylenol) 650 mg Q4H PRN RECTAL Mild Pain/Temp > 100.5 05/21/18 12:00 06/20/18 11:59 Cefepime HCl 2 gm/ Dextrose 55 ml @ 110 mls/hr Q24H IVPB 05/25/18 13:00 06/01/18 12:59 05/30/18 14:05 Chlorhexidine Gluconate (Tatyana-Hex 2%) 1 applic DAILY@2000 TOPIC 05/12/18 20:00 06/11/18 19:59 05/30/18 19:54 Dextrose 1,000 ml @ 0 mls/hr Q24H PRN IV PN interrupted or unavailable 05/25/18 21:00 06/24/18 20:59 Dextrose (Dextrose 50%) 25 ml Q30M PRN IV Hypoglycemia 05/26/18 12:45 06/25/18 12:44 Dextrose (Dextrose 50%) 50 ml Q30M PRN IV Hypoglycemia 05/26/18 12:45 06/25/18 12:44 Epoetin Bret (Procrit (for ESRD on dialysis)) 3,000 units SUN-SUN-SUN SUBQ 05/31/18 21:00 06/30/18 20:59 Fat Emulsion Intravenous 250 ml/Amino Acids/ Electrolytes/ Dextrose 2,050 ml @ 85.417 mls/ hr Q24H IV 05/28/18 20:00 06/27/18 19:59 05/30/18 20:15 Fluconazole/ Sodium Chloride 100 ml @ 100 mls/hr Q24H IV 05/28/18 18:00 06/04/18 17:59 05/30/18 17:13 Hydrocortisone (Solu-CORTEF) 25 mg EVERY 8 HOURS IV 05/29/18 22:00 06/20/18 21:59 05/31/18 06:04 Hydromorphone HCl (Dilaudid) 1 mg Q2H PRN IVP Severe Pain (Pain Scale 7-10) 05/31/18 10:00 06/05/18 09:59 Insulin Aspart (NovoLOG) EVERY 4 HOURS SUBQ 05/24/18 17:00 06/15/18 20:59 05/31/18 09:25 Insulin Aspart (NovoLOG) 6 units EVERY 4 HOURS SUBQ 05/30/18 21:00 06/25/18 12:59 05/31/18 09:23 Insulin Detemir (Levemir) 20 units Q12HR SUBQ 05/27/18 09:00 06/23/18 17:59 05/31/18 08:33 Levofloxacin 50 ml @ 50 mls/hr Q24H IVPB 05/25/18 13:00 06/01/18 12:59 05/30/18 14:05 Metronidazole 100 ml @ 100 mls/hr Q8HR IVPB 05/25/18 14:00 06/01/18 13:59 05/31/18 06:04 Nitroglycerin (Ntg) 1 patch Q24H TDERMAL 05/29/18 20:00 06/28/18 19:59 05/30/18 19:54 Norepinephrine Bitartrate 8 mg/ Dextrose 500 ml @ 0 mls/hr Q24H IV 05/21/18 14:30 06/20/18 14:29 05/27/18 14:30 Ondansetron HCl (Zofran) 4 mg Q6H PRN IVP Nausea & Vomiting 05/15/18 23:30 06/14/18 23:29 Pantoprazole (Protonix) 40 mg EVERY 12 HOURS IVP 05/12/18 21:00 06/10/18 20:59 05/31/18 08:30 Phytonadione (Vitamin K) 10 mg ONCE A WEEK SUBQ 05/25/18 21:00 06/24/18 20:59 05/25/18 20:30 Potassium Chloride 100 ml @ 100 mls/hr Q1HR IVPB 05/31/18 07:00 05/31/18 12:59 05/31/18 11:51 Vasopressin 100 units/Sodium Chloride 100 ml @ 0 mls/hr Q24H IV 05/22/18 11:30 06/21/18 11:29 05/23/18 17:47 Romie Hooks MD May 31, 2018 12:25
--- NOTE | 2018-05-31 12:30 | NUR ---
NURSE NOTES: Hemodialysis done. 2.5L out. BP 138/55. Turned and repositioned pt. Oral care done. Will continue to monitor.
[2018-05-31] MEDS: Cefepime HCl 2 GM in D5W 55 ML IVPB SCH (13:19)
--- NOTE | 2018-05-31 14:00 | Cardiac Electrophysiology PN ---
Assessment/Plan Assessment/Plan 1. Atrial fib/flutter with RVR In SR. Amio drip DCed for bradycardia. In SR for 2 days Can't switch to po as NPO Last Dig level 1.9 on 05/21/18 but off Dig. If develops atrial fib with RVR would digitalize again. 2. Chest pain. No WV.Troponin leak due to renal failure and nonspecific EKG showed old inferior and anterior wall [place], but no ischemia. ECHO normal LV function 3. End-stage renal disease, on hemodialysis per Dr. Arroyo. 4. Septic shock, off Levophed 2D Echo EF 60% and PA pressure 63 ? PE. DD 35.2. Unstable for chest CT angio. Off heparin drip for surgery 5. Hx of lap matthew. S/P SB resection 05/15/18 with drain S/P redo surgery 05/23/18 that showed Anastomotic leak. S/P surgery again by DR Chandler 05/27/18 On TPN and Abx 6. Respiratory failure, reintubated on the vent. Not ready for Weaning yet 7. History of kidney stones. 8. History of psychiatric problems, dementia. SAW RN Subjective Subjective In ICU, Extubated and reintubated 4 hours later. Off Amiodarone drip due to bradycardia . Off pressors. In SR Off Heparin drip since surgery. On the Vent. Tolerated HD today without hypotension Objective Last 24 Hour Vital Signs Date Time Temp Pulse Resp B/P (MAP) Pulse Ox O2 Delivery O2 Flow Rate FiO2 05/31/18 13:12 86 26 40 05/31/18 13:00 98.1 75 25 144/75 (98) 100 05/31/18 12:00 86 25 138/52 (80) 99 05/31/18 12:00 Mechanical Ventilator Endotracheal Tube Mechanical Ventilator 05/31/18 11:00 88 37 115/51 (72) 94 05/31/18 10:48 Mechanical Ventilator 100 05/31/18 10:45 Mechanical Ventilator 100 05/31/18 10:34 92 24 40 05/31/18 10:00 90 34 123/57 (79) 100 05/31/18 09:00 93 34 149/58 (88) 93 05/31/18 08:49 100 05/31/18 08:45 84 21 40 05/31/18 08:00 Mechanical Ventilator Endotracheal Tube Mechanical Ventilator 05/31/18 08:00 40 05/31/18 08:00 97.9 89 22 151/64 (93) 100 05/31/18 07:25 83 05/31/18 07:09 85 21 40 05/31/18 07:00 86 20 149/67 (94) 100 05/31/18 06:00 79 20 144/63 (90) 100 05/31/18 05:04 81 21 40 05/31/18 05:00 84 27 159/64 (95) 100 05/31/18 04:00 Mechanical Ventilator Endotracheal Tube Mechanical Ventilator 05/31/18 04:00 84 05/31/18 04:00 40 05/31/18 04:00 98.3 88 27 157/66 (96) 100 05/31/18 03:00 84 27 169/82 (111) 100 05/31/18 02:51 77 27 40 05/31/18 02:00 80 26 169/82 (111) 100 05/31/18 01:32 78 27 Mechanical Ventilator 40 05/31/18 01:30 79 26 40 05/31/18 01:00 78 26 152/70 (97) 100 05/31/18 00:00 82 05/31/18 00:00 98.1 77 27 119/72 (88) 100 05/31/18 00:00 40 05/31/18 00:00 Mechanical Ventilator Endotracheal Tube Mechanical Ventilator 05/30/18 23:00 102 29 136/83 (100) 100 05/30/18 22:44 80 23 40 05/30/18 22:00 88 24 143/64 (90) 100 05/30/18 21:15 82 23 40 05/30/18 21:00 78 24 131/61 (84) 100 05/30/18 20:00 84 05/30/18 20:00 40 05/30/18 20:00 90 28 135/61 (85) 100 05/30/18 20:00 Mechanical Ventilator Endotracheal Tube Mechanical Ventilator 05/30/18 19:54 157/99 05/30/18 19:06 80 27 40 05/30/18 19:00 99.1 89 27 130/75 (93) 100 05/30/18 18:00 77 27 135/61 (85) 100 05/30/18 17:04 78 26 40 05/30/18 17:00 81 27 132/67 (88) 100 05/30/18 16:00 Mechanical Ventilator Endotracheal Tube Mechanical Ventilator 05/30/18 16:00 98.9 75 27 137/62 (87) 100 05/30/18 16:00 40 05/30/18 16:00 79 05/30/18 15:13 80 30 40 05/30/18 15:00 77 26 155/58 (90) 100 05/30/18 14:00 85 28 121/61 (81) 100 Intake and Output 05/30/18 05/31/18 19:00 07:00 Intake Total 1299.587 ml 1025.004 ml Output Total 210 ml 210 ml Balance 1089.587 ml 815.004 ml IV Total 1299.587 ml 1025.004 ml Output Urine Total 0 ml Drainage Total 210 ml 210 ml # Bowel Movements 6 7 Laboratory Tests Test 05/30/18 16:30 05/31/18 05:20 05/31/18 10:40 Sodium Level 138 MMOL/L (136-145) 137 MMOL/L (136-145) 139 MMOL/L (136-145) Potassium Level 2.8 MMOL/L (3.5-5.1) L 2.9 MMOL/L (3.5-5.1) L 3.4 MMOL/L (3.5-5.1) L Chloride Level 103 MMOL/L (98-107) 99 MMOL/L (98-107) 100 MMOL/L (98-107) Carbon Dioxide Level 21 MMOL/L (21-32) 21 MMOL/L (21-32) 29 MMOL/L (21-32) Anion Gap 12 mmol/L (5-15) 17 mmol/L (5-15) H 10 mmol/L (5-15) Blood Urea Nitrogen 84 mg/dL (7-18) H 98 mg/dL (7-18) H 61 mg/dL (7-18) H Creatinine 4.1 MG/DL (0.55-1.30) H 4.7 MG/DL (0.55-1.30) H 2.9 MG/DL (0.55-1.30) H Estimat Glomerular Filtration Rate mL/min (>60) mL/min (>60) mL/min (>60) Glucose Level 131 MG/DL (74-106) H 120 MG/DL (74-106) H 136 MG/DL (74-106) H Calcium Level 7.1 MG/DL (8.5-10.1) L 7.6 MG/DL (8.5-10.1) L 7.7 MG/DL (8.5-10.1) L Total Bilirubin 0.4 MG/DL (0.2-1.0) 0.4 MG/DL (0.2-1.0) Aspartate Amino Transf (AST/SGOT) 25 U/L (15-37) 26 U/L (15-37) Alanine Aminotransferase (ALT/SGPT) 11 U/L (12-78) L 11 U/L (12-78) L Alkaline Phosphatase 90 U/L (46-116) 111 U/L (46-116) Total Protein 3.9 G/DL (6.4-8.2) L 4.5 G/DL (6.4-8.2) L Albumin 0.8 G/DL (3.4-5.0) L 0.9 G/DL (3.4-5.0) L Globulin 3.1 g/dL 3.6 g/dL Albumin/Globulin Ratio 0.3 (1.0-2.7) L 0.2 (1.0-2.7) L White Blood Count 17.7 K/UL (4.8-10.8) H Red Blood Count 2.75 M/UL (4.70-6.10) L Hemoglobin 8.0 G/DL (14.2-18.0) L Hematocrit 24.1 % (42.0-52.0) L Mean Corpuscular Volume 88 FL (80-99) Mean Corpuscular Hemoglobin 29.0 PG (27.0-31.0) Mean Corpuscular Hemoglobin Concent 33.0 G/DL (32.0-36.0) Red Cell Distribution Width 16.1 % (11.6-14.8) H Platelet Count 105 K/UL (150-450) L Mean Platelet Volume 9.5 FL (6.5-10.1) Neutrophils (%) (Auto) % (45.0-75.0) Lymphocytes (%) (Auto) % (20.0-45.0) Monocytes (%) (Auto) % (1.0-10.0) Eosinophils (%) (Auto) % (0.0-3.0) Basophils (%) (Auto) % (0.0-2.0) Differential Total Cells Counted 100 Neutrophils % (Manual) 92 % (45-75) H Lymphocytes % (Manual) 1 % (20-45) L Monocytes % (Manual) 2 % (1-10) Eosinophils % (Manual) 0 % (0-3) Basophils % (Manual) 0 % (0-2) Band Neutrophils 5 % (0-8) Platelet Estimate Decreased L Platelet Morphology Normal Anisocytosis 2+ Phosphorus Level 4.7 MG/DL (2.5-4.9) Iron Level 16 ug/dL (50-175) L Total Iron Binding Capacity 60 ug/dL (250-450) L Percent Iron Saturation 27 % (15-50) Unsaturated Iron Binding 44 ug/dL (112-346) L Ferritin 1834 NG/ML (8-388) H Triglycerides Level 76 MG/DL (30-150) Cholesterol Level 76 MG/DL (< 200) LDL Cholesterol 41 mg/dL (<100) HDL Cholesterol 23 MG/DL (40-60) L Cholesterol/HDL Ratio 3.3 (3.3-4.4) Objective HEENT: Orally intubated Cardiovascular: Sinus tachycardia Respiratory/Chest: Coarse rhonchi Abdomen: Post op with 2 VELVET drain Extremities: 1 plus edema. Right groin dialysis catheter Everett Stephenson MD May 31, 2018 14:00
[2018-05-31] MEDS: Norepinephrine Bitartrate 8 MG in D5W 500ml 492 ML IV SCH (14:30)
--- NOTE | 2018-05-31 14:34 | Pulmonolgy Critical Care Note ---
Critical Care - Asmt/Plan Problems: (1) Shock (2) Hypoxemia (3) Elevated d-dimer Assessment & Plan: S/P neg CT-A + UE DVT (4) Hypotension (5) Atrial fibrillation (6) ESRD (end stage renal disease) on dialysis (7) ACS (acute coronary syndrome) (8) Sacral decubitus ulcer, stage III (9) S/P cholecystectomy (10) Serratia sepsis (11) S/P exploratory laparotomy (12) Perforated viscus (13) Thrombocythemia Assessment/Plan: -Off NE -Continue HC 25 TID and taper -Continue current vent settings -Daily SBT -Titrate down FiO2 and PEEP to keep SaO2 > 90% -HD per renal as able -[facility] held, start @ least Hep SQ -Monitor CBC, transfuse if Hb < 8 -Monitor for bleeding -Flucon, Flagyl and Cefepime per ID, F/U Cx's -NPO , TPN -F/U surgery recs -FC D/W RN and RT CCT 55 Critical Care - Objective Last 24 Hour Vital Signs Date Time Temp Pulse Resp B/P (MAP) Pulse Ox O2 Delivery O2 Flow Rate FiO2 05/31/18 13:12 86 26 40 05/31/18 13:00 98.1 75 25 144/75 (98) 100 05/31/18 12:00 86 25 138/52 (80) 99 05/31/18 12:00 Mechanical Ventilator Endotracheal Tube Mechanical Ventilator 05/31/18 11:33 83 05/31/18 11:00 88 37 115/51 (72) 94 05/31/18 10:48 Mechanical Ventilator 100 05/31/18 10:45 Mechanical Ventilator 100 05/31/18 10:34 92 24 40 05/31/18 10:00 90 34 123/57 (79) 100 05/31/18 09:00 93 34 149/58 (88) 93 05/31/18 08:49 100 05/31/18 08:45 84 21 40 05/31/18 08:00 Mechanical Ventilator Endotracheal Tube Mechanical Ventilator 05/31/18 08:00 40 05/31/18 08:00 97.9 89 22 151/64 (93) 100 05/31/18 07:25 83 05/31/18 07:09 85 21 40 05/31/18 07:00 86 20 149/67 (94) 100 05/31/18 06:00 79 20 144/63 (90) 100 05/31/18 05:04 81 21 40 05/31/18 05:00 84 27 159/64 (95) 100 05/31/18 04:00 Mechanical Ventilator Endotracheal Tube Mechanical Ventilator 05/31/18 04:00 84 05/31/18 04:00 40 05/31/18 04:00 98.3 88 27 157/66 (96) 100 05/31/18 03:00 84 27 169/82 (111) 100 05/31/18 02:51 77 27 40 05/31/18 02:00 80 26 169/82 (111) 100 05/31/18 01:32 78 27 Mechanical Ventilator 40 05/31/18 01:30 79 26 40 05/31/18 01:00 78 26 152/70 (97) 100 05/31/18 00:00 82 05/31/18 00:00 98.1 77 27 119/72 (88) 100 05/31/18 00:00 40 05/31/18 00:00 Mechanical Ventilator Endotracheal Tube Mechanical Ventilator 05/30/18 23:00 102 29 136/83 (100) 100 05/30/18 22:44 80 23 40 05/30/18 22:00 88 24 143/64 (90) 100 05/30/18 21:15 82 23 40 05/30/18 21:00 78 24 131/61 (84) 100 05/30/18 20:00 84 05/30/18 20:00 40 05/30/18 20:00 90 28 135/61 (85) 100 05/30/18 20:00 Mechanical Ventilator Endotracheal Tube Mechanical Ventilator 05/30/18 19:54 157/99 05/30/18 19:06 80 27 40 05/30/18 19:00 99.1 89 27 130/75 (93) 100 05/30/18 18:00 77 27 135/61 (85) 100 05/30/18 17:04 78 26 40 05/30/18 17:00 81 27 132/67 (88) 100 05/30/18 16:00 Mechanical Ventilator Endotracheal Tube Mechanical Ventilator 05/30/18 16:00 98.9 75 27 137/62 (87) 100 05/30/18 16:00 40 05/30/18 16:00 79 05/30/18 15:13 80 30 40 05/30/18 15:00 77 26 155/58 (90) 100 Status: awake, other - intubated Condition: improving HEENT: atraumatic, normocephalic Neck: full ROM Lungs: rhonchi Heart: HR/BP stable Abdomen: soft, non-tender, active bowel sounds Extremities: no C/C/E Decubiti: location - sacral, stage - 4 Accucheck: 129 Blood Sugars: BS controlled Critical Care - Subjective ROS Limited/Unobtainable: Yes ICU Day: 17 Intubation Day: Re-in 2 Interval Events: Tm 100 VSS stable on vent No sig secretions Awake Condition: stable IV Access: central, peripheral EKG Rhythm: Sinus Rhythm FI02: 40 Vent Support Breath Rate: 16 Vent Support Mode: AC Vent Tidal Volume: 500 Sputum Amount: Scant PEEP: 5.0 PIP: 27 Fluids: SLIV Tube Feeding Amount: 0 I&O: Intake and Output 05/30/18 05/31/18 19:00 07:00 Intake Total 1299.587 ml 1025.004 ml Output Total 210 ml 210 ml Balance 1089.587 ml 815.004 ml IV Total 1299.587 ml 1025.004 ml Output Urine Total 0 ml Drainage Total 210 ml 210 ml # Bowel Movements 6 7 Subjective: CROW ET-Tube: 7.5 ET Position: 24 Labs: Laboratory Tests Test 05/30/18 16:30 05/31/18 05:20 05/31/18 10:40 Sodium Level 138 MMOL/L (136-145) 137 MMOL/L (136-145) 139 MMOL/L (136-145) Potassium Level 2.8 MMOL/L (3.5-5.1) L 2.9 MMOL/L (3.5-5.1) L 3.4 MMOL/L (3.5-5.1) L Chloride Level 103 MMOL/L (98-107) 99 MMOL/L (98-107) 100 MMOL/L (98-107) Carbon Dioxide Level 21 MMOL/L (21-32) 21 MMOL/L (21-32) 29 MMOL/L (21-32) Anion Gap 12 mmol/L (5-15) 17 mmol/L (5-15) H 10 mmol/L (5-15) Blood Urea Nitrogen 84 mg/dL (7-18) H 98 mg/dL (7-18) H 61 mg/dL (7-18) H Creatinine 4.1 MG/DL (0.55-1.30) H 4.7 MG/DL (0.55-1.30) H 2.9 MG/DL (0.55-1.30) H Estimat Glomerular Filtration Rate mL/min (>60) mL/min (>60) mL/min (>60) Glucose Level 131 MG/DL (74-106) H 120 MG/DL (74-106) H 136 MG/DL (74-106) H Calcium Level 7.1 MG/DL (8.5-10.1) L 7.6 MG/DL (8.5-10.1) L 7.7 MG/DL (8.5-10.1) L Total Bilirubin 0.4 MG/DL (0.2-1.0) 0.4 MG/DL (0.2-1.0) Aspartate Amino Transf (AST/SGOT) 25 U/L (15-37) 26 U/L (15-37) Alanine Aminotransferase (ALT/SGPT) 11 U/L (12-78) L 11 U/L (12-78) L Alkaline Phosphatase 90 U/L (46-116) 111 U/L (46-116) Total Protein 3.9 G/DL (6.4-8.2) L 4.5 G/DL (6.4-8.2) L Albumin 0.8 G/DL (3.4-5.0) L 0.9 G/DL (3.4-5.0) L Globulin 3.1 g/dL 3.6 g/dL Albumin/Globulin Ratio 0.3 (1.0-2.7) L 0.2 (1.0-2.7) L White Blood Count 17.7 K/UL (4.8-10.8) H Red Blood Count 2.75 M/UL (4.70-6.10) L Hemoglobin 8.0 G/DL (14.2-18.0) L Hematocrit 24.1 % (42.0-52.0) L Mean Corpuscular Volume 88 FL (80-99) Mean Corpuscular Hemoglobin 29.0 PG (27.0-31.0) Mean Corpuscular Hemoglobin Concent 33.0 G/DL (32.0-36.0) Red Cell Distribution Width 16.1 % (11.6-14.8) H Platelet Count 105 K/UL (150-450) L Mean Platelet Volume 9.5 FL (6.5-10.1) Neutrophils (%) (Auto) % (45.0-75.0) Lymphocytes (%) (Auto) % (20.0-45.0) Monocytes (%) (Auto) % (1.0-10.0) Eosinophils (%) (Auto) % (0.0-3.0) Basophils (%) (Auto) % (0.0-2.0) Differential Total Cells Counted 100 Neutrophils % (Manual) 92 % (45-75) H Lymphocytes % (Manual) 1 % (20-45) L Monocytes % (Manual) 2 % (1-10) Eosinophils % (Manual) 0 % (0-3) Basophils % (Manual) 0 % (0-2) Band Neutrophils 5 % (0-8) Platelet Estimate Decreased L Platelet Morphology Normal Anisocytosis 2+ Phosphorus Level 4.7 MG/DL (2.5-4.9) Iron Level 16 ug/dL (50-175) L Total Iron Binding Capacity 60 ug/dL (250-450) L Percent Iron Saturation 27 % (15-50) Unsaturated Iron Binding 44 ug/dL (112-346) L Ferritin 1834 NG/ML (8-388) H Triglycerides Level 76 MG/DL (30-150) Cholesterol Level 76 MG/DL (< 200) LDL Cholesterol 41 mg/dL (<100) HDL Cholesterol 23 MG/DL (40-60) L Cholesterol/HDL Ratio 3.3 (3.3-4.4) Daryl Jones MD May 31, 2018 14:34
--- NOTE | 2018-05-31 14:39 | General Progress Note ---
Assessment/Plan Assessment/Plan # Anemia of chronic disease due to underlying chronic medical issues, multifactorial --> Anemia w/u has been reviewed, reordered and ferritin is >2000 --> Monitor for stability --> trend 10.3-->7.6-->8.9-->10.3-->9.5-->9.2-->8.3-->7.9-->8 --> not bleeding currently --> okay to give blood and products as patient unable to give consent, 2MD consent done --> continue Procrit 3x a week (started on 05/30) 3,000 sq dose # Thrombocytopenia due to septic shock --> vit K given for coagulopathy --> plt 163k-->116k-->83k-->98k-->105k # Small bowel perforation, s/p bowel resection, with Gram negative sepsis is on abx In ICU s/p Small bowel resection --> on broad spectrum abx --> on vanc/cefepime as per id--> now changed to zosyn, flagyl, micafungin--> on cefepime, levaquin and change per id --> s/p sb resection on 05/15, appreciate surg recs --> off pressors now # Hypofibrinoginemia -- potentially consumptive process given sepsis --> cryo given weeek of 05/23 --> fibrinogen 541 --> okay to give blood and products as patient unable to give consent, 2MD consent done # Lower extremity edema with an elevated BNP in a patient with renal failure on hemodialysis. --> on HD per Dr. Arroyo. --> currently has improved, continue to monitor # Atrial fib w rvr/flutter, being seen by cards, has converted to sr --> Cardiology is following, appreciate recs, echo was reviewed --> Currently denies any chest pain, completely rule out ACS --> EKG showed old inferior and anterior wall [place], but no ischemia --> ECHO with normal LV function --> now off hep gtt now --> off coumadin given drop in h/h # End-stage renal disease, on hemodialysis and also hyponatremia. --> Nephro is following, appreciate recs. HD approx 3x a week --> On intermittent HD # Respiratory failure on a vent, intubated The time of note does not necessarily reflect the time of encounter Greatly appreciate consultation! Subjective Constitutional: Denies: no symptoms, chills, diaphoresis, fever, malaise, weakness, other HEENT: Denies: no symptoms, eye pain, blurred vision, tearing, double vision, ear pain, ear discharge, nose pain, nose congestion, throat pain, throat swelling, mouth pain, mouth swelling, other Cardiovascular: Denies: no symptoms, chest pain, edema, irregular heart rate, lightheadedness, palpitations, syncope, other Respiratory: Denies: no symptoms, cough, orthopnea, shortness of breath, SOB with excertion, SOB at rest, sputum, stridor, wheezing, other Genitourinary: Denies: no symptoms, burning, discharge, frequency, flank pain, hematuria, incontinence, pain, urgency, other Neurologic/Psychiatric: Denies: no symptoms, anxiety, depressed, emotional problems, headache, numbness, paresthesia, pre-existing deficit, seizure, tingling, tremors, weakness, other Endocrine: Denies: no symptoms, excessive sweating, flushing, intolerance to cold, intolerance to heat, increased hunger, increased thirst, increased urine, unexplained weight gain, unexplained weight loss, other Allergies: Coded Allergies: No Known Allergies (Unverified , 11/12/12) Subjective 05/12: Pt resting in bed. No acute events. H/H stable. On abx. VS stable. 05/13: on pressors, on hep gtt, on steriods, abx, got hd, felice catheter in place : CT-A was negative, hep gtt as per cards, abg reviewed, moaning on exam, on ceftriaxone 05/15 :Pt remains in ICU. Currently undergoing HD. Pt on 2 cardiac drips for elevated Bp. WBC remains elevated. H/H stable. 05/16: s/p sb resection, In ICU s/p Small bowel resection on Amiodarone and Levophed drip. HR around 100. 05/17: Orally intubated on Ac 16, Vt 500, P 5 fio2 30%. Pt continues NPO at this time. Right upper arm and right FA IV sites patent and intact at this time. Amio gtt running 05/18: Pt remains in ICU. Pt for STAT HD. WBC remains elevated, afebrile. 05/19: getting hd periodically, no other events, vent to be weaned, labs reviewed, on dilaudid, ativan and fentanyl per pulm 05/21: prognosis is more guarded, no events to report, no f/c, but on two pressors now, on hep gtt for antonio thrombosis, hd as well 3x/week 05/22: on 2 pressors, seen by cards, renal, ryan drain draining improved, still on vent, converted to sr, on amio gtt, lactic acid downtrending, minimally responsive, on heparin gtt as well for antonio thrombus 05/23: patient to go to OR [facility] potential washout, ostomy, and line placement, fibrinogen low, needs cryoprecipirate, will also check inr/pt, cbc reviewed, electrolytes noted 05/24: Patient continues to be intubated on vent. He is s/p exploratory lap with wound washout and wound vac placement. 05/25: Pt is seen in the room, resting in bed. doing well since wound vac change , cbc reviewed, plt 163 05/26: Patient is is seen at bedside, intubated on vent. Wound vac still applied. No signs of pain at this time. Plt 116 . 1.7: again off pressors, plt somewhat lower, monitoring meds, on amio, antifungal as well, could be contributing, platelets and vitk given 05/28: had more surgeries yesterday with Right hemicolectomy, omentectomy & removal of wound-vac, off pressors, HD 05/29/18, on vent, stable 05/29: extubated but reintubated, on cefepime at this time, amiodarone, being seen by cards, procrit started 05/30: Pt is in ICU, Extubated and reintubated yesterday.Off Levophed and Heparin drip since surgery. On the Vent. 03/31: no events, remains on the vent, off pressors, received hd today 2.5L were removed Objective Last 24 Hour Vital Signs Date Time Temp Pulse Resp B/P (MAP) Pulse Ox O2 Delivery O2 Flow Rate FiO2 05/31/18 13:12 86 26 40 05/31/18 13:00 98.1 75 25 144/75 (98) 100 1/11/19 12:00 86 25 138/52 (80) 99 05/31/18 12:00 Mechanical Ventilator Endotracheal Tube Mechanical Ventilator 05/31/18 11:33 83 05/31/18 11:00 88 37 115/51 (72) 94 05/31/18 10:48 Mechanical Ventilator 100 05/31/18 10:45 Mechanical Ventilator 100 05/31/18 10:34 92 24 40 05/31/18 10:00 90 34 123/57 (79) 100 05/31/18 09:00 93 34 149/58 (88) 93 05/31/18 08:49 100 05/31/18 08:45 84 21 40 05/31/18 08:00 Mechanical Ventilator Endotracheal Tube Mechanical Ventilator 05/31/18 08:00 40 05/31/18 08:00 97.9 89 22 151/64 (93) 100 05/31/18 07:25 83 05/31/18 07:09 85 21 40 05/31/18 07:00 86 20 149/67 (94) 100 05/31/18 06:00 79 20 144/63 (90) 100 05/31/18 05:04 81 21 40 05/31/18 05:00 84 27 159/64 (95) 100 05/31/18 04:00 Mechanical Ventilator Endotracheal Tube Mechanical Ventilator 05/31/18 04:00 84 05/31/18 04:00 40 05/31/18 04:00 98.3 88 27 157/66 (96) 100 05/31/18 03:00 84 27 169/82 (111) 100 05/31/18 02:51 77 27 40 05/31/18 02:00 80 26 169/82 (111) 100 05/31/18 01:32 78 27 Mechanical Ventilator 40 05/31/18 01:30 79 26 40 05/31/18 01:00 78 26 152/70 (97) 100 05/31/18 00:00 82 05/31/18 00:00 98.1 77 27 119/72 (88) 100 05/31/18 00:00 40 05/31/18 00:00 Mechanical Ventilator Endotracheal Tube Mechanical Ventilator 05/30/18 23:00 102 29 136/83 (100) 100 05/30/18 22:44 80 23 40 05/30/18 22:00 88 24 143/64 (90) 100 05/30/18 21:15 82 23 40 05/30/18 21:00 78 24 131/61 (84) 100 05/30/18 20:00 84 05/30/18 20:00 40 05/30/18 20:00 90 28 135/61 (85) 100 05/30/18 20:00 Mechanical Ventilator Endotracheal Tube Mechanical Ventilator 05/30/18 19:54 157/99 05/30/18 19:06 80 27 40 05/30/18 19:00 99.1 89 27 130/75 (93) 100 05/30/18 18:00 77 27 135/61 (85) 100 05/30/18 17:04 78 26 40 05/30/18 17:00 81 27 132/67 (88) 100 05/30/18 16:00 Mechanical Ventilator Endotracheal Tube Mechanical Ventilator 05/30/18 16:00 98.9 75 27 137/62 (87) 100 05/30/18 16:00 40 05/30/18 16:00 79 05/30/18 15:13 80 30 40 05/30/18 15:00 77 26 155/58 (90) 100 Intake and Output 05/30/18 05/31/18 19:00 07:00 Intake Total 1299.587 ml 1025.004 ml Output Total 210 ml 210 ml Balance 1089.587 ml 815.004 ml IV Total 1299.587 ml 1025.004 ml Output Urine Total 0 ml Drainage Total 210 ml 210 ml # Bowel Movements 6 7 Laboratory Tests 05/30/18 16:30: Sodium Level 138, Potassium Level 2.8L, Chloride Level 103, Carbon Dioxide Level 21, Anion Gap 12, Blood Urea Nitrogen 84H, Creatinine 4.1H, Estimat Glomerular Filtration Rate , Glucose Level 131H, Calcium Level 7.1L, Total Bilirubin 0.4, Aspartate Amino Transf (AST/SGOT) 25, Alanine Aminotransferase ( ALT/SGPT) 11L, Alkaline Phosphatase 90, Total Protein 3.9L, Albumin 0.8L, Globulin 3.1, Albumin/Globulin Ratio 0.3L 05/31/18 05:20: Sodium Level 137, Potassium Level 2.9L, Chloride Level 99, Carbon Dioxide Level 21, Anion Gap 17H, Blood Urea Nitrogen 98H, Creatinine 4.7H, Estimat Glomerular Filtration Rate , Glucose Level 120H, Calcium Level 7.6L, Total Bilirubin 0.4, Aspartate Amino Transf (AST/SGOT) 26, Alanine Aminotransferase (ALT/SGPT) 11L, Alkaline Phosphatase 111, Total Protein 4.5L, Albumin 0.9L, Globulin 3.6, Albumin/Globulin Ratio 0.2L, White Blood Count 17.7H, Red Blood Count 2.75L, Hemoglobin 8.0L, Hematocrit 24.1L, Mean Corpuscular Volume 88, Mean Corpuscular Hemoglobin 29.0, Mean Corpuscular Hemoglobin Concent 33.0, Red Cell Distribution Width 16.1H, Platelet Count 105L, Mean Platelet Volume 9.5, Neutrophils (%) (Auto) , Lymphocytes (%) (Auto) , Monocytes (%) (Auto) , Eosinophils (%) (Auto) , Basophils (%) (Auto) , Differential Total Cells Counted 100, Neutrophils % (Manual) 92H, Lymphocytes % (Manual) 1L, Monocytes % (Manual) 2, Eosinophils % (Manual) 0, Basophils % (Manual) 0, Band Neutrophils 5 , Platelet Estimate DecreasedL, Platelet Morphology Normal, Anisocytosis 2+, Phosphorus Level 4.7, Iron Level 16L, Total Iron Binding Capacity 60L, Percent Iron Saturation 27, Unsaturated Iron Binding 44L, Ferritin 1834H, Triglycerides Level 76, Cholesterol Level 76, LDL Cholesterol 41, HDL Cholesterol 23L, Cholesterol/HDL Ratio 3.3 05/31/18 10:40: Sodium Level 139, Potassium Level 3.4L, Chloride Level 100, Carbon Dioxide Level 29, Anion Gap 10, Blood Urea Nitrogen 61H, Creatinine 2.9H, Estimat Glomerular Filtration Rate , Glucose Level 136H, Calcium Level 7.7L Height (Feet): 5 Height (Inches): 5.00 Weight (Pounds): 187 Objective PE: VITAL SIGNS: Have been reviewed HEENT: PERRLA. intubated, vent++ NECK: Supple. No lymphadenopathy CHEST: ++ intubated CARDIOVASCULAR: Tachycardic. GASTROINTESTINAL: Distended. Positive bowel sounds. Nontender. No organomegaly. ++ ryan drain in place EXTREMITY: 2+ edema. NEURO: responsive to simple command Reinaldo Leon MD May 31, 2018 14:39
--- NOTE | 2018-05-31 15:00 | NUR ---
NURSE NOTES: Dr Jones here to see the patient. Updated him with pt's current condition and the episode of desaturation. Order for weaning from tomorrow morning received and noted. Will endorse to next shift.
--- NOTE | 2018-05-31 15:27 | NUR ---
RD ASSESSMENT & RECOMMENDATIONS SEE CARE ACTIVITY FOR COMPLETE ASSESSMENT DAILY ESTIMATED NEEDS: Needs based on ESRD on HD, wound, critical care/ 73.7kg abw 25-30 kcals/kg 1635-4304 total kcals 1.25-2 g protein/kg 92-147 g total protein Fluid per MD mL/kg . total fluid mLs NUTRITION DIAGNOSIS: 1) Increased kcal and protein needs r/t renal dysfunction, wound healing, surgery as evidenced by pt with ESRD on HD, partial thickness wound @ sacral cleft and stage 1 @ rt heel, s/p small bowel resection. 2) Altered GI function R/T recent lap matthew w/ possible complications as evidenced by pt admitted w/ c/o abdominal pain, s/p ex lap w/ finding of small bowel perforation in distal ileum, s/p small bowel resection w/ drain, NPO at this time, day 8. 3) Altered nutrition related lab values R/T ESRD, on steroidal med, DM dx, clinical condition, as evidenced by low Na (129-> wnl), elev K (5.9-> wnl), elev phos (9.5), elev BNP (>57657), elev BGs (317 250 252- now improved), low BP, off pressors at this time- TPN initiated CURRENT DIET:NPO ARENTERAL NUTRITION RECOMMENDATIONS: D/AA Rate: 75 IL Rate: 10 Total Rate: 85 Volume: 2040 % Dextrose: 18 % AA: 5.5 Energy (kcals/kg): 1978 Protein (g/kg protein): 99 Nonprotein KCALS: 1582 GIR (mg CHO/kg/min): 2.6 % Fat KCALS: 24 NCP: N Ratio: 100:1 TPN Comment: * W/ hemodynamic stability, rec to continue current TPN * D18% AA 5.5% @ 75ml/hr + IL20% @10ml/hr -> all 3:1, total of 85ml/hr. * Meets 100% est kcal and prot needs, 27kcal/adj kg, 1.3g prot/ adj kg. * GIR=2.6, IL <30%, NPC: 100:1 ADDITIONAL RECOMMENDATIONS: 1) REcalibrate bed scale for accurate CBW 2) Monitor lytes, BGs, LFTs daily on TPN 3) Monitor BGs closely- on steroidal med + TPN . . .
[2018-05-31] MEDS ORDERED: NS 275ml ONE ×2 (16:08→16:56)
[2018-05-31] MEDS ORDERED: Tubing IV Secondary IV ONE ×2 (16:08→16:56)
--- NOTE | 2018-05-31 16:30 | NUR ---
NURSE NOTES:Received pt lethargic but arousable to verbal stimuli , orally intubated on ac mode, Bp stable pulses+2 palpable, 2-3+ edema to extremities. SR on the monitor [id number] degree AVB , Dr Doe was aware per RN dany. Abdominal drsg dry and intact with Jps x2 to suction. Will continue to monitor.
--- NOTE | 2018-05-31 16:30 | NUR ---
HAND-OFF: Report given to MINGO Gage.
--- NOTE | 2018-05-31 17:25 | NUR ---
CASE MANAGEMENT: REVIEW SI: ESRD ON HD . ACS . A-FIB RIGHT FEMORAL TEMPORARY HEMODIALYSIS CATHETER INSERTION 05/13 T 98.1 HR 75 RR 25 BP 144/75 SAT 98% MECH VENT FIO2 40 WBC 17.7 H/H 8.0/24.1 BUN 61 CR 2.9 IS: TPN IV Q24HR CEFEPIME IV Q24HR LEVOFLOXACIN IV Q24HR VASOPRESSIN IV Q24HR LEVOPHED IV Q24HR FLAGYL IV Q8HR ICU STATUS DCP: PATIENT IS FROM HOME
[2018-05-31 18:04] LABS: ANION GAP 13 mmol/L (5-15); BLOOD UREA NITROGEN 78 mg/dL (7-18); CARBON DIOXIDE 23 MMOL/L (21-32); CHLORIDE 102 MMOL/L (98-107); CREATININE 3.6 MG/DL (0.55-1.30); POTASSIUM 3.6 MMOL/L (3.5-5.1); SODIUM 138 MMOL/L (136-145)
--- NOTE | 2018-05-31 18:21 | NUR ---
NURSE NOTES:K 3.6 (no need to call Dr Arroyo , Mds parameter <3.5)
--- NOTE | 2018-05-31 18:46 | NUR ---
RESPIRATORY NOTE: Received pt o AC 16, 500VT 40%, PEEP +5. Pt intubated w/ ETT 7.5 @ 24cm lipline, secured by anchorfast. Pt asleep, occasionally responds to stimuli. B/S rosa. rhonchi, sxn moderate amounts of thick, melendrez/yellow secretions w/ occasional blood clots. Vent plugged into red outlet, ambubag at bedside. Pt in no apparent distress at this time. Will continue to monitor pt/
--- NOTE | 2018-05-31 18:53 | General Progress Note ---
Assessment/Plan Problem List: (1) Perforated viscus ICD Codes: R19.8 - Other specified symptoms and signs involving the digestive system and abdomen SNOMED: 43135794, 863632751, 864238154 (2) ESRD (end stage renal disease) on dialysis ICD Codes: N18.6 - End stage renal disease; Z99.2 - Dependence on renal dialysis SNOMED: 311280899 (3) Shock ICD Codes: R57.9 - Shock, unspecified SNOMED: 72404671 (4) Diabetes mellitus out of control ICD Codes: E11.65 - Type 2 diabetes mellitus with hyperglycemia SNOMED: 47737046, 354921994 Assessment/Plan continue BG monitoring and Novolog sliding scale every 4 hours DC Novolog 6 units every 4 hours continue Levemir 20 units bid Subjective ROS Limited/Unobtainable: Yes Allergies: Coded Allergies: No Known Allergies (Unverified , 11/12/12) Subjective events noted re intubated on TPN Objective Last 24 Hour Vital Signs Date Time Temp Pulse Resp B/P (MAP) Pulse Ox O2 Delivery O2 Flow Rate FiO2 05/31/18 18:44 79 29 40 05/31/18 17:22 87 28 40 05/31/18 16:04 88 05/31/18 16:00 40 05/31/18 16:00 Mechanical Ventilator Endotracheal Tube Mechanical Ventilator 05/31/18 16:00 86 27 148/64 (92) 99 05/31/18 15:27 86 29 40 05/31/18 15:00 87 27 143/64 (90) 98 05/31/18 14:00 85 27 146/60 (88) 100 05/31/18 13:12 86 26 40 05/31/18 13:00 98.1 75 25 144/75 (98) 100 05/31/18 12:00 86 25 138/52 (80) 99 05/31/18 12:00 Mechanical Ventilator Endotracheal Tube Mechanical Ventilator 05/31/18 11:33 83 05/31/18 11:00 88 37 115/51 (72) 94 05/31/18 10:48 Mechanical Ventilator 100 05/31/18 10:45 Mechanical Ventilator 100 05/31/18 10:34 92 24 40 05/31/18 10:00 90 34 123/57 (79) 100 05/31/18 09:00 93 34 149/58 (88) 93 05/31/18 08:49 100 05/31/18 08:45 84 21 40 05/31/18 08:00 Mechanical Ventilator Endotracheal Tube Mechanical Ventilator 05/31/18 08:00 40 05/31/18 08:00 97.9 89 22 151/64 (93) 100 05/31/18 07:25 83 05/31/18 07:09 85 21 40 05/31/18 07:00 86 20 149/67 (94) 100 05/31/18 06:00 79 20 144/63 (90) 100 05/31/18 05:04 81 21 40 05/31/18 05:00 84 27 159/64 (95) 100 05/31/18 04:00 Mechanical Ventilator Endotracheal Tube Mechanical Ventilator 05/31/18 04:00 84 05/31/18 04:00 40 05/31/18 04:00 98.3 88 27 157/66 (96) 100 05/31/18 03:00 84 27 169/82 (111) 100 05/31/18 02:51 77 27 40 05/31/18 02:00 80 26 169/82 (111) 100 05/31/18 01:32 78 27 Mechanical Ventilator 40 05/31/18 01:30 79 26 40 05/31/18 01:00 78 26 152/70 (97) 100 05/31/18 00:00 82 05/31/18 00:00 98.1 77 27 119/72 (88) 100 05/31/18 00:00 40 05/31/18 00:00 Mechanical Ventilator Endotracheal Tube Mechanical Ventilator 05/30/18 23:00 102 29 136/83 (100) 100 05/30/18 22:44 80 23 40 05/30/18 22:00 88 24 143/64 (90) 100 05/30/18 21:15 82 23 40 05/30/18 21:00 78 24 131/61 (84) 100 05/30/18 20:00 84 05/30/18 20:00 40 05/30/18 20:00 90 28 135/61 (85) 100 05/30/18 20:00 Mechanical Ventilator Endotracheal Tube Mechanical Ventilator 05/30/18 19:54 157/99 05/30/18 19:06 80 27 40 05/30/18 19:00 99.1 89 27 130/75 (93) 100 Intake and Output 05/30/18 05/31/18 18:59 06:59 Intake Total 1299.587 ml 1025.004 ml Output Total 410 ml 210 ml Balance 889.587 ml 815.004 ml IV Total 1299.587 ml 1025.004 ml Output Urine Total 0 ml Drainage Total 410 ml 210 ml # Bowel Movements 6 7 Laboratory Tests 05/31/18 05:20: White Blood Count 17.7H, Red Blood Count 2.75L, Hemoglobin 8.0L, Hematocrit 24.1L, Mean Corpuscular Volume 88, Mean Corpuscular Hemoglobin 29.0, Mean Corpuscular Hemoglobin Concent 33.0, Red Cell Distribution Width 16.1H, Platelet Count 105L, Mean Platelet Volume 9.5, Neutrophils (%) (Auto) , Lymphocytes (%) (Auto) , Monocytes (%) (Auto) , Eosinophils (%) (Auto) , Basophils (%) (Auto) , Differential Total Cells Counted 100, Neutrophils % ( Manual) 92H, Lymphocytes % (Manual) 1L, Monocytes % (Manual) 2, Eosinophils % ( Manual) 0, Basophils % (Manual) 0, Band Neutrophils 5, Platelet Estimate DecreasedL, Platelet Morphology Normal, Anisocytosis 2+, Sodium Level 137, Potassium Level 2.9L, Chloride Level 99, Carbon Dioxide Level 21, Anion Gap 17H , Blood Urea Nitrogen 98H, Creatinine 4.7H, Estimat Glomerular Filtration Rate , Glucose Level 120H, Calcium Level 7.6L, Phosphorus Level 4.7, Iron Level 16L, Total Iron Binding Capacity 60L, Percent Iron Saturation 27, Unsaturated Iron Binding 44L, Ferritin 1834H, Total Bilirubin 0.4, Aspartate Amino Transf (AST/ SGOT) 26, Alanine Aminotransferase (ALT/SGPT) 11L, Alkaline Phosphatase 111, Total Protein 4.5L, Albumin 0.9L, Globulin 3.6, Albumin/Globulin Ratio 0.2L, Triglycerides Level 76, Cholesterol Level 76, LDL Cholesterol 41, HDL Cholesterol 23L, Cholesterol/HDL Ratio 3.3 05/31/18 10:40: Sodium Level 139, Potassium Level 3.4L, Chloride Level 100, Carbon Dioxide Level 29, Anion Gap 10, Blood Urea Nitrogen 61H, Creatinine 2.9H, Estimat Glomerular Filtration Rate , Glucose Level 136H, Calcium Level 7.7L 05/31/18 17:30: Sodium Level 138, Potassium Level 3.6, Chloride Level 102, Carbon Dioxide Level 23, Anion Gap 13, Blood Urea Nitrogen 78H, Creatinine 3.6H, Estimat Glomerular Filtration Rate , Glucose Level 67L, Calcium Level 8.0L Height (Feet): 5 Height (Inches): 5.00 Weight (Pounds): 187 General Appearance: severe distress EENT: other - ETT Neck: normal alignment Cardiovascular: tachycardia Respiratory/Chest: decreased breath sounds Abdomen: hypoactive bowel sounds Objective Current Medications Medications (Trade) Dose Ordered Sig/Min Route PRN Reason Start Time Stop Time Status Last Admin Dose Admin Acetaminophen (Tylenol) 650 mg Q4H PRN RECTAL Mild Pain/Temp > 100.5 05/21/18 12:00 06/20/18 11:59 Cefepime HCl 2 gm/ Dextrose 55 ml @ 110 mls/hr Q24H IVPB 05/25/18 13:00 06/07/18 12:59 05/31/18 13:19 Chlorhexidine Gluconate (Tatyana-Hex 2%) 1 applic DAILY@2000 TOPIC 05/12/18 20:00 06/11/18 19:59 05/30/18 19:54 Dextrose 1,000 ml @ 0 mls/hr Q24H PRN IV PN interrupted or unavailable 05/25/18 21:00 06/24/18 20:59 Dextrose (Dextrose 50%) 25 ml Q30M PRN IV Hypoglycemia 05/26/18 12:45 06/25/18 12:44 Dextrose (Dextrose 50%) 50 ml Q30M PRN IV Hypoglycemia 05/26/18 12:45 06/25/18 12:44 Epoetin Bret (Procrit (for ESRD on dialysis)) 3,000 units MON-WED-SUN SUBQ 05/31/18 21:00 06/30/18 20:59 Fat Emulsion Intravenous 250 ml/Amino Acids/ Electrolytes/ Dextrose 2,050 ml @ 85.417 mls/ hr Q24H IV 05/28/18 20:00 06/27/18 19:59 05/30/18 20:15 Fluconazole/ Sodium Chloride 100 ml @ 100 mls/hr Q24H IV 05/28/18 18:00 06/04/18 17:59 05/31/18 18:09 Hydrocortisone (Solu-CORTEF) 25 mg EVERY 8 HOURS IV 05/29/18 22:00 06/20/18 21:59 05/31/18 13:42 Hydromorphone HCl (Dilaudid) 1 mg Q2H PRN IVP Severe Pain (Pain Scale 7-10) 05/31/18 10:00 06/05/18 09:59 Insulin Aspart (NovoLOG) EVERY 4 HOURS SUBQ 05/24/18 17:00 06/15/18 20:59 05/31/18 13:23 Insulin Aspart (NovoLOG) 6 units EVERY 4 HOURS SUBQ 05/30/18 21:00 06/25/18 12:59 05/31/18 13:22 Insulin Detemir (Levemir) 20 units Q12HR SUBQ 05/27/18 09:00 06/23/18 17:59 05/31/18 08:33 Levofloxacin 50 ml @ 50 mls/hr Q24H IVPB 05/25/18 13:00 06/07/18 12:59 05/31/18 13:19 Metronidazole 100 ml @ 100 mls/hr Q8HR IVPB 05/25/18 14:00 06/07/18 13:59 05/31/18 13:19 Nitroglycerin (Ntg) 1 patch Q24H TDERMAL 05/29/18 20:00 06/28/18 19:59 05/30/18 19:54 Norepinephrine Bitartrate 8 mg/ Dextrose 500 ml @ 0 mls/hr Q24H IV 05/21/18 14:30 06/20/18 14:29 05/27/18 14:30 Ondansetron HCl (Zofran) 4 mg Q6H PRN IVP Nausea & Vomiting 05/15/18 23:30 06/14/18 23:29 Pantoprazole (Protonix) 40 mg EVERY 12 HOURS IVP 05/12/18 21:00 06/10/18 20:59 05/31/18 08:30 Phytonadione (Vitamin K) 10 mg ONCE A WEEK SUBQ 05/25/18 21:00 06/24/18 20:59 05/25/18 20:30 Vasopressin 100 units/Sodium Chloride 100 ml @ 0 mls/hr Q24H IV 05/22/18 11:30 06/21/18 11:29 05/23/18 17:47 Item Value Date Time Bedside Blood Glucose 75 mg/dl 05/31/18 1700 Bedside Blood Glucose 129 mg/dl H 05/31/18 1323 Bedside Blood Glucose 141 mg/dl H 05/31/18 0925 Bedside Blood Glucose 103 mg/dl 05/31/18 0500 Bedside Blood Glucose 102 mg/dl 05/31/18 0050 Bedside Blood Glucose 83 mg/dl 05/30/18 2100 Bedside Blood Glucose 118 mg/dl 05/30/18 1719 Rashad Koenig MD May 31, 2018 18:53
--- NOTE | 2018-05-31 19:30 | NUR ---
NURSE NOTES:Received Pt more awake at this time SR on the monitor with ist degree AVB Dr Stephenson was aware. Pt with 3-4+ edema ,Pt with TPN drip at 85 ml/hr infusing to Left SVC central line.Site with drsg dry and intact. Orally intubated on ac mode. Suctioned beige tk secretions moderte in amt. HOB kept elevated. watch for any resp. distress. Will continue to monitor.
--- NOTE | 2018-05-31 19:32 | General Progress Note ---
Assessment/Plan Assessment/Plan Assessment - septic shock - off pressors - abdominal infection - s/p exlap - resp failure - on vent - renal failure - malnutrition - on TPN Recommendation - supportive care - Abx - TF when OK with surgery - TPN per renal - follow labs - vent care - HD - guarded Subjective Allergies: Coded Allergies: No Known Allergies (Unverified , 11/12/12) Subjective above noted intubated looks at MD on TPN d/w RN Objective Last 24 Hour Vital Signs Date Time Temp Pulse Resp B/P (MAP) Pulse Ox O2 Delivery O2 Flow Rate FiO2 05/31/18 18:44 79 29 40 05/31/18 17:22 87 28 40 05/31/18 16:04 88 05/31/18 16:00 40 05/31/18 16:00 Mechanical Ventilator Endotracheal Tube Mechanical Ventilator 05/31/18 16:00 86 27 148/64 (92) 99 05/31/18 15:27 86 29 40 05/31/18 15:00 87 27 143/64 (90) 98 05/31/18 14:00 85 27 146/60 (88) 100 05/31/18 13:12 86 26 40 05/31/18 13:00 98.1 75 25 144/75 (98) 100 05/31/18 12:00 86 25 138/52 (80) 99 05/31/18 12:00 Mechanical Ventilator Endotracheal Tube Mechanical Ventilator 05/31/18 11:33 83 05/31/18 11:00 88 37 115/51 (72) 94 05/31/18 10:48 Mechanical Ventilator 100 05/31/18 10:45 Mechanical Ventilator 100 05/31/18 10:34 92 24 40 05/31/18 10:00 90 34 123/57 (79) 100 05/31/18 09:00 93 34 149/58 (88) 93 05/31/18 08:49 100 05/31/18 08:45 84 21 40 05/31/18 08:00 Mechanical Ventilator Endotracheal Tube Mechanical Ventilator 05/31/18 08:00 40 05/31/18 08:00 97.9 89 22 151/64 (93) 100 05/31/18 07:25 83 05/31/18 07:09 85 21 40 05/31/18 07:00 86 20 149/67 (94) 100 05/31/18 06:00 79 20 144/63 (90) 100 05/31/18 05:04 81 21 40 05/31/18 05:00 84 27 159/64 (95) 100 05/31/18 04:00 Mechanical Ventilator Endotracheal Tube Mechanical Ventilator 05/31/18 04:00 84 05/31/18 04:00 40 05/31/18 04:00 98.3 88 27 157/66 (96) 100 05/31/18 03:00 84 27 169/82 (111) 100 05/31/18 02:51 77 27 40 05/31/18 02:00 80 26 169/82 (111) 100 05/31/18 01:32 78 27 Mechanical Ventilator 40 05/31/18 01:30 79 26 40 05/31/18 01:00 78 26 152/70 (97) 100 05/31/18 00:00 82 05/31/18 00:00 98.1 77 27 119/72 (88) 100 05/31/18 00:00 40 05/31/18 00:00 Mechanical Ventilator Endotracheal Tube Mechanical Ventilator 05/30/18 23:00 102 29 136/83 (100) 100 05/30/18 22:44 80 23 40 05/30/18 22:00 88 24 143/64 (90) 100 05/30/18 21:15 82 23 40 05/30/18 21:00 78 24 131/61 (84) 100 05/30/18 20:00 84 05/30/18 20:00 40 05/30/18 20:00 90 28 135/61 (85) 100 05/30/18 20:00 Mechanical Ventilator Endotracheal Tube Mechanical Ventilator 05/30/18 19:54 157/99 Intake and Output 05/30/18 05/31/18 18:59 06:59 Intake Total 1299.587 ml 1025.004 ml Output Total 410 ml 210 ml Balance 889.587 ml 815.004 ml IV Total 1299.587 ml 1025.004 ml Output Urine Total 0 ml Drainage Total 410 ml 210 ml # Bowel Movements 6 7 Laboratory Tests 05/31/18 05:20: White Blood Count 17.7H, Red Blood Count 2.75L, Hemoglobin 8.0L, Hematocrit 24.1L, Mean Corpuscular Volume 88, Mean Corpuscular Hemoglobin 29.0, Mean Corpuscular Hemoglobin Concent 33.0, Red Cell Distribution Width 16.1H, Platelet Count 105L, Mean Platelet Volume 9.5, Neutrophils (%) (Auto) , Lymphocytes (%) (Auto) , Monocytes (%) (Auto) , Eosinophils (%) (Auto) , Basophils (%) (Auto) , Differential Total Cells Counted 100, Neutrophils % ( Manual) 92H, Lymphocytes % (Manual) 1L, Monocytes % (Manual) 2, Eosinophils % ( Manual) 0, Basophils % (Manual) 0, Band Neutrophils 5, Platelet Estimate DecreasedL, Platelet Morphology Normal, Anisocytosis 2+, Sodium Level 137, Potassium Level 2.9L, Chloride Level 99, Carbon Dioxide Level 21, Anion Gap 17H , Blood Urea Nitrogen 98H, Creatinine 4.7H, Estimat Glomerular Filtration Rate , Glucose Level 120H, Calcium Level 7.6L, Phosphorus Level 4.7, Iron Level 16L, Total Iron Binding Capacity 60L, Percent Iron Saturation 27, Unsaturated Iron Binding 44L, Ferritin 1834H, Total Bilirubin 0.4, Aspartate Amino Transf (AST/ SGOT) 26, Alanine Aminotransferase (ALT/SGPT) 11L, Alkaline Phosphatase 111, Total Protein 4.5L, Albumin 0.9L, Globulin 3.6, Albumin/Globulin Ratio 0.2L, Triglycerides Level 76, Cholesterol Level 76, LDL Cholesterol 41, HDL Cholesterol 23L, Cholesterol/HDL Ratio 3.3 05/31/18 10:40: Sodium Level 139, Potassium Level 3.4L, Chloride Level 100, Carbon Dioxide Level 29, Anion Gap 10, Blood Urea Nitrogen 61H, Creatinine 2.9H, Estimat Glomerular Filtration Rate , Glucose Level 136H, Calcium Level 7.7L 05/31/18 17:30: Sodium Level 138, Potassium Level 3.6, Chloride Level 102, Carbon Dioxide Level 23, Anion Gap 13, Blood Urea Nitrogen 78H, Creatinine 3.6H, Estimat Glomerular Filtration Rate , Glucose Level 67L, Calcium Level 8.0L Height (Feet): 5 Height (Inches): 5.00 Weight (Pounds): 187 Objective Intubated NCAT ETT / OGT Supple Coarse BS RR abd more flat, (+) large dressing with VELVET x 2 no edema awake, looks at MD Jain,Lisa MEANS May 31, 2018 19:32
[2018-05-31] MEDS: Dyna-Hex 2% Top Sol 2oz TOPIC SCH (20:05)
[2018-05-31] MEDS: Nitroglycerin Patch 0.4mg TDERMAL SCH (20:09)
[2018-05-31] MEDS: TPN IV SCH (20:14)
[2018-05-31] MEDS: FAT EMULSION 20% IV SCH (20:14)
[2018-05-31] MEDS ORDERED: Epogen (for ESRD on dialysis) SUBQ SCH (21:00)
--- NOTE | 2018-05-31 21:12 | NUR ---
NURSE NOTES:Blood sugar, critically low -sent blood specimen to the lab, 1 mp D50 IVP was given.
--- NOTE | 2018-05-31 21:33 | General Progress Note ---
Assessment/Plan Problem List: (1) ACS (acute coronary syndrome) ICD Codes: I24.9 - Acute ischemic heart disease, unspecified SNOMED: 711120259 (2) ESRD (end stage renal disease) on dialysis ICD Codes: N18.6 - End stage renal disease; Z99.2 - Dependence on renal dialysis SNOMED: 730212749 (3) Depression ICD Codes: F32.9 - Major depressive disorder, single episode, unspecified SNOMED: 46349239 (4) Anemia ICD Codes: D64.9 - Anemia, unspecified SNOMED: 342877302 (5) Sacral decubitus ulcer, stage III ICD Codes: L89.153 - Pressure ulcer of sacral region, stage 3 SNOMED: 834656888, 418013679 (6) Major depression ICD Codes: F32.9 - Major depressive disorder, single episode, unspecified SNOMED: 589560001 (7) anxiety disorder (8) Atrial fibrillation ICD Codes: I48.91 - Unspecified atrial fibrillation SNOMED: 19167077 (9) Hypoxemia ICD Codes: R09.02 - Hypoxemia SNOMED: 047607970 (10) Hypotension ICD Codes: I95.9 - Hypotension, unspecified SNOMED: 35975294 (11) Shock ICD Codes: R57.9 - Shock, unspecified SNOMED: 25635163 (12) Elevated d-dimer ICD Codes: R79.89 - Other specified abnormal findings of blood chemistry SNOMED: 408730824 (13) encephalopathy due to metabolic factor Status: progressing Assessment/Plan resp failure pb improved no change reviewed labs s/p washout of pus / multiple exploratory lap esrd on hd s/p septic shick check lytes check h/h intermettint on pressors poor prognosis Subjective ROS Limited/Unobtainable: Yes Allergies: Coded Allergies: No Known Allergies (Unverified , 11/12/12) Objective Last 24 Hour Vital Signs Date Time Temp Pulse Resp B/P (MAP) Pulse Ox O2 Delivery O2 Flow Rate FiO2 05/31/18 21:00 83 20 40 05/31/18 20:09 145/59 05/31/18 19:00 80 22 125/60 (81) 100 05/31/18 18:44 79 29 40 05/31/18 18:00 89 28 152/82 (105) 100 05/31/18 17:22 87 28 40 05/31/18 17:00 87 28 162/66 (98) 100 05/31/18 16:04 88 05/31/18 16:00 40 05/31/18 16:00 Mechanical Ventilator Endotracheal Tube Mechanical Ventilator 05/31/18 16:00 86 27 148/64 (92) 99 05/31/18 15:27 86 29 40 05/31/18 15:00 87 27 143/64 (90) 98 05/31/18 14:00 85 27 146/60 (88) 100 05/31/18 13:12 86 26 40 05/31/18 13:00 98.1 75 25 144/75 (98) 100 05/31/18 12:00 86 25 138/52 (80) 99 05/31/18 12:00 Mechanical Ventilator Endotracheal Tube Mechanical Ventilator 05/31/18 11:33 83 05/31/18 11:00 88 37 115/51 (72) 94 05/31/18 10:48 Mechanical Ventilator 100 05/31/18 10:45 Mechanical Ventilator 100 05/31/18 10:34 92 24 40 05/31/18 10:00 90 34 123/57 (79) 100 05/31/18 09:00 93 34 149/58 (88) 93 05/31/18 08:49 100 05/31/18 08:45 84 21 40 05/31/18 08:00 Mechanical Ventilator Endotracheal Tube Mechanical Ventilator 05/31/18 08:00 40 05/31/18 08:00 97.9 89 22 151/64 (93) 100 05/31/18 07:25 83 05/31/18 07:09 85 21 40 05/31/18 07:00 86 20 149/67 (94) 100 05/31/18 06:00 79 20 144/63 (90) 100 05/31/18 05:04 81 21 40 05/31/18 05:00 84 27 159/64 (95) 100 05/31/18 04:00 Mechanical Ventilator Endotracheal Tube Mechanical Ventilator 05/31/18 04:00 84 05/31/18 04:00 40 05/31/18 04:00 98.3 88 27 157/66 (96) 100 05/31/18 03:00 84 27 169/82 (111) 100 05/31/18 02:51 77 27 40 05/31/18 02:00 80 26 169/82 (111) 100 05/31/18 01:32 78 27 Mechanical Ventilator 40 05/31/18 01:30 79 26 40 05/31/18 01:00 78 26 152/70 (97) 100 05/31/18 00:00 82 05/31/18 00:00 98.1 77 27 119/72 (88) 100 05/31/18 00:00 40 05/31/18 00:00 Mechanical Ventilator Endotracheal Tube Mechanical Ventilator 05/30/18 23:00 102 29 136/83 (100) 100 05/30/18 22:44 80 23 40 05/30/18 22:00 88 24 143/64 (90) 100 Intake and Output 05/30/18 05/31/18 19:00 07:00 Intake Total 1299.587 ml 1025.004 ml Output Total 210 ml 210 ml Balance 1089.587 ml 815.004 ml IV Total 1299.587 ml 1025.004 ml Output Urine Total 0 ml Drainage Total 210 ml 210 ml # Bowel Movements 6 7 Laboratory Tests 05/31/18 05:20: White Blood Count 17.7H, Red Blood Count 2.75L, Hemoglobin 8.0L, Hematocrit 24.1L, Mean Corpuscular Volume 88, Mean Corpuscular Hemoglobin 29.0, Mean Corpuscular Hemoglobin Concent 33.0, Red Cell Distribution Width 16.1H, Platelet Count 105L, Mean Platelet Volume 9.5, Neutrophils (%) (Auto) , Lymphocytes (%) (Auto) , Monocytes (%) (Auto) , Eosinophils (%) (Auto) , Basophils (%) (Auto) , Differential Total Cells Counted 100, Neutrophils % ( Manual) 92H, Lymphocytes % (Manual) 1L, Monocytes % (Manual) 2, Eosinophils % ( Manual) 0, Basophils % (Manual) 0, Band Neutrophils 5, Platelet Estimate DecreasedL, Platelet Morphology Normal, Anisocytosis 2+, Sodium Level 137, Potassium Level 2.9L, Chloride Level 99, Carbon Dioxide Level 21, Anion Gap 17H , Blood Urea Nitrogen 98H, Creatinine 4.7H, Estimat Glomerular Filtration Rate , Glucose Level 120H, Calcium Level 7.6L, Phosphorus Level 4.7, Iron Level 16L, Total Iron Binding Capacity 60L, Percent Iron Saturation 27, Unsaturated Iron Binding 44L, Ferritin 1834H, Total Bilirubin 0.4, Aspartate Amino Transf (AST/ SGOT) 26, Alanine Aminotransferase (ALT/SGPT) 11L, Alkaline Phosphatase 111, Total Protein 4.5L, Albumin 0.9L, Globulin 3.6, Albumin/Globulin Ratio 0.2L, Triglycerides Level 76, Cholesterol Level 76, LDL Cholesterol 41, HDL Cholesterol 23L, Cholesterol/HDL Ratio 3.3 05/31/18 10:40: Sodium Level 139, Potassium Level 3.4L, Chloride Level 100, Carbon Dioxide Level 29, Anion Gap 10, Blood Urea Nitrogen 61H, Creatinine 2.9H, Estimat Glomerular Filtration Rate , Glucose Level 136H, Calcium Level 7.7L 05/31/18 17:30: Sodium Level 138, Potassium Level 3.6, Chloride Level 102, Carbon Dioxide Level 23, Anion Gap 13, Blood Urea Nitrogen 78H, Creatinine 3.6H, Estimat Glomerular Filtration Rate , Glucose Level 67L, Calcium Level 8.0L 05/31/18 21:25: Glucose Level [Pending] Height (Feet): 5 Height (Inches): 5.00 Weight (Pounds): 187 Neck: supple Cardiovascular: normal rate Respiratory/Chest: lungs clear Samantha Head MD May 31, 2018 21:33
--- NOTE | 2018-05-31 22:00 | NUR ---
NURSE NOTES:Attempted to pull out ETT. Soft wrist restraint maintained for safety. Will continue to monitor.
--- NOTE | 2018-05-31 22:00 | NUR ---
NURSE NOTES:Re checked blood sugar after 1 amp D50- it was 163mg/dl, pt more alert at this time.
[2018-06-01] VITALS (23 sets, daily range): BP systolic 125–177; BP diastolic 49–95
--- NOTE | 2018-06-01 | NUR ---
NURSE NOTES:Pt had another episode of mucuid watery bile colored drainage, complete bath was given.
[2018-06-01] MEDS: NovoLOG Insulin Flexpen SUBQ SCH ×6 (01:00→20:33)
--- NOTE | 2018-06-01 02:00 | NUR ---
NURSE NOTES:Turned to sides q 2hrs and PRN . Pt on p200 mattress- Sacral drsg was changed
--- NOTE | 2018-06-01 03:55 | NUR ---
NURSE NOTES:Resting well at this time, vss.
--- NOTE | 2018-06-01 04:43 | NUR ---
NURSE NOTES:Blood sugar 81mg/dl no coverage.
--- NOTE | 2018-06-01 06:00 | NUR ---
NURSE NOTES:Complete bed bath with complete bed changed was done.
[2018-06-01] MEDS: Hydrocortisone 100mg Inj IV SCH ×3 (06:11→20:25)
[2018-06-01 06:21] LABS: HEMATOCRIT 21.1 % (42.0-52.0); HEMOGLOBIN 7.1 G/DL (14.2-18.0); MEAN CORPUSCULAR VOLUME 88 FL (80-99); PLATELET COUNT 103 K/UL (150-450); RED CELL DISTRIBUTION WIDTH 15.8 % (11.6-14.8); WHITE BLOOD COUNT 20.7 K/UL (4.8-10.8)
[2018-06-01 06:33] LABS: ALANINE AMINOTRANSFERASE 9 U/L (12-78); ALBUMIN 0.9 G/DL (3.4-5.0); ALBUMIN/GLOBULIN RATIO 0.3 (1.0-2.7); ALKALINE PHOSPHATASE 111 U/L (46-116); ANION GAP 12 mmol/L (5-15); ASPARTATE AMINO TRANSFERASE 29 U/L (15-37); BILIRUBIN,TOTAL 0.4 MG/DL (0.2-1.0); BLOOD UREA NITROGEN 86 mg/dL (7-18); CALCIUM 7.7 MG/DL (8.5-10.1); CARBON DIOXIDE 25 MMOL/L (21-32); CHLORIDE 103 MMOL/L (98-107); CREATININE 4.1 MG/DL (0.55-1.30); PHOSPHORUS 4.3 MG/DL (2.5-4.9); POTASSIUM 3.2 MMOL/L (3.5-5.1); SODIUM 140 MMOL/L (136-145)
--- NOTE | 2018-06-01 07:00 | NUR ---
Received Patient on Vent settings of ACVC RR 16, VT 500, FIO2 40%, PEEP +5. Patient orally intubated with 7.5 ETT at 24cm at the lip secured by anchorfast. Diminished rhonchi are heard bilaterally. SX extremely thick melendrez bloody secretions. Vent plugged into red outlet. Alarms are on and audible. Will continue to monitor throughout the day.
--- NOTE | 2018-06-01 07:26 | NUR ---
HAND-OFF: Report given to Racquel Baldwin R.N using SBAR. walking rounds done..
--- NOTE | 2018-06-01 07:30 | NUR ---
NURSE NOTES: Report received from Merari AGUILA. Pt lethargic but arousable, alert and oriented, ku[place]i speaking. Pt connected to court monitor, SR. Pt orally intubated ETT 7.5, 24 cm lip line, AC 16, TV 500, fiO2 40%, PEEP 5. Pt having watery stool frequently. Generalized 3+ edema noted. Abdominal dressing intact with 2 VELVET on left and right abdomen draining serous fluid. Right felice cath on femoral noted and intact. Left subclavian connected to TPN 85.417 cc/hr and NS at TKO. Bilateral soft wrist restraints noted and intact, passive range of motioned performed. Safety measures in place with bed locked and in lowest position, side rails x3 up and bed alarm on. Will continue to monitor and continue plan of care.
[2018-06-01] MEDS: Pantoprazole Inj IVP SCH ×2 (08:20→20:24)
[2018-06-01] MEDS: Levemir Flexpen SUBQ SCH ×2 (08:22→20:34)
[2018-06-01] MEDS ORDERED: TPN IV SCH (09:00)
[2018-06-01] MEDS ORDERED: FAT EMULSION 20% IV SCH (09:00)
--- NOTE | 2018-06-01 09:12 | NUR ---
Weaning started at 0910. Placed on PS 8 PEEP +5 fio2 40% will continue to monitor.
--- NOTE | 2018-06-01 09:30 | NUR ---
NURSE NOTES: Spoke to Dr Arroyo regarding pt lab results. KCL replacement ordered. 2 units PRBC also ordered. New type and screen done. Will continue monitor.
--- NOTE | 2018-06-01 11:26 | NUR ---
Weaning stopped PT placed back on previous vent settings.
[2018-06-01] MEDS: Vasopressin 100 UNITS in NS 95 ML IV SCH (11:30)
--- NOTE | 2018-06-01 11:46 | Cardiac Electrophysiology PN ---
Assessment/Plan Assessment/Plan 1. Atrial fib/flutter with RVR In SR. Amio drip DCed for bradycardia. In SR Can't switch to po as NPO Last Dig level 1.9 on 05/21/18 but off Dig. Start dig 0.125 mg iv MWF. Dig level in am. 2. Chest pain. 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 ECHO normal LV function 3. End-stage renal disease, on hemodialysis per Dr. Arroyo. 4. Septic shock, off Levophed 2D Echo EF 60% and PA pressure 63 ? PE. DD 35.2. Unstable for chest CT angio. Off heparin drip for surgery 5. Hx of lap matthew. S/P SB resection 05/15/18 with drain S/P redo surgery 05/23/18 that showed Anastomotic leak. S/P surgery again by DR Chandler 05/27/18 On TPN and Abx 6. Respiratory failure, reintubated on the vent. Not ready for Weaning yet 7. History of kidney stones. 8. History of psychiatric problems, dementia. SAW RN Subjective Subjective In ICU on the vent. Off Amiodarone drip due to bradycardia. Off pressors. In SR. Tolerated HD yesterday without hypotension Objective Last 24 Hour Vital Signs Date Time Temp Pulse Resp B/P (MAP) Pulse Ox O2 Delivery O2 Flow Rate FiO2 06/01/18 11:25 88 24 40 06/01/18 11:00 92 29 128/49 (75) 98 06/01/18 10:49 95 26 40 06/01/18 10:00 86 19 135/54 (81) 99 06/01/18 09:10 89 29 40 06/01/18 09:00 83 27 162/54 (90) 100 06/01/18 09:00 100 06/01/18 08:00 91 27 156/72 (100) 100 06/01/18 08:00 87 06/01/18 08:00 40 06/01/18 08:00 Mechanical Ventilator Endotracheal Tube Mechanical Ventilator 06/01/18 07:10 86 28 40 06/01/18 07:00 97.8 89 26 160/70 (100) 100 06/01/18 06:00 89 25 151/63 (92) 100 06/01/18 05:11 92 25 40 06/01/18 05:00 91 24 150/77 (101) 100 06/01/18 04:00 81 06/01/18 04:00 Mechanical Ventilator Endotracheal Tube Mechanical Ventilator 06/01/18 04:00 98.2 85 24 140/77 (98) 100 06/01/18 03:00 81 27 134/74 (94) 100 06/01/18 02:55 81 26 40 06/01/18 02:00 83 24 133/61 (85) 100 06/01/18 01:18 40 06/01/18 00:46 74 25 40 06/01/18 00:00 76 06/01/18 00:00 40 06/01/18 00:00 Mechanical Ventilator Endotracheal Tube Mechanical Ventilator 06/01/18 00:00 98.6 87 24 150/71 (97) 100 05/31/18 23:00 92 24 135/63 (87) 100 05/31/18 22:53 94 26 40 05/31/18 22:00 93 25 163/68 (99) 100 05/31/18 21:00 93 25 153/68 (96) 100 05/31/18 21:00 83 20 40 05/31/18 20:09 145/59 05/31/18 20:00 98.2 76 17 145/59 (87) 100 05/31/18 20:00 Mechanical Ventilator Endotracheal Tube Mechanical Ventilator 05/31/18 20:00 76 05/31/18 19:00 80 22 125/60 (81) 100 05/31/18 18:44 79 29 40 05/31/18 18:00 89 28 152/82 (105) 100 05/31/18 17:22 87 28 40 05/31/18 17:00 87 28 162/66 (98) 100 05/31/18 16:04 88 05/31/18 16:00 40 05/31/18 16:00 Mechanical Ventilator Endotracheal Tube Mechanical Ventilator 05/31/18 16:00 86 27 148/64 (92) 99 05/31/18 15:27 86 29 40 05/31/18 15:00 87 27 143/64 (90) 98 05/31/18 14:00 85 27 146/60 (88) 100 05/31/18 13:12 86 26 40 05/31/18 13:00 98.1 75 25 144/75 (98) 100 05/31/18 12:00 86 25 138/52 (80) 99 05/31/18 12:00 Mechanical Ventilator Endotracheal Tube Mechanical Ventilator Intake and Output 05/31/18 06/01/18 19:00 07:00 Intake Total 1573.753 ml 1125.004 ml Output Total 3400 ml 224 ml Balance -1826.247 ml 901.004 ml IV Total 1573.753 ml 1125.004 ml Output Urine Total 2 ml Stool Total 2 ml Drainage Total 400 ml 220 ml Hemodialysis UF 3000 ml # Bowel Movements 2 8 Laboratory Tests Test 05/31/18 17:30 05/31/18 21:25 06/01/18 04:30 Sodium Level 138 MMOL/L (136-145) 140 MMOL/L (136-145) Potassium Level 3.6 MMOL/L (3.5-5.1) 3.2 MMOL/L (3.5-5.1) L Chloride Level 102 MMOL/L (98-107) 103 MMOL/L (98-107) Carbon Dioxide Level 23 MMOL/L (21-32) 25 MMOL/L (21-32) Anion Gap 13 mmol/L (5-15) 12 mmol/L (5-15) Blood Urea Nitrogen 78 mg/dL (7-18) H 86 mg/dL (7-18) H Creatinine 3.6 MG/DL (0.55-1.30) H 4.1 MG/DL (0.55-1.30) H Estimat Glomerular Filtration Rate mL/min (>60) mL/min (>60) Glucose Level 67 MG/DL (74-106) L 168 MG/DL (74-106) #H 74 MG/DL (74-106) Calcium Level 8.0 MG/DL (8.5-10.1) L 7.7 MG/DL (8.5-10.1) L White Blood Count 20.7 K/UL (4.8-10.8) H Red Blood Count 2.40 M/UL (4.70-6.10) L Hemoglobin 7.1 G/DL (14.2-18.0) L Hematocrit 21.1 % (42.0-52.0) L Mean Corpuscular Volume 88 FL (80-99) Mean Corpuscular Hemoglobin 29.7 PG (27.0-31.0) Mean Corpuscular Hemoglobin Concent 33.7 G/DL (32.0-36.0) Red Cell Distribution Width 15.8 % (11.6-14.8) H Platelet Count 103 K/UL (150-450) L Mean Platelet Volume 9.6 FL (6.5-10.1) Neutrophils (%) (Auto) % (45.0-75.0) Lymphocytes (%) (Auto) % (20.0-45.0) Monocytes (%) (Auto) % (1.0-10.0) Eosinophils (%) (Auto) % (0.0-3.0) Basophils (%) (Auto) % (0.0-2.0) Differential Total Cells Counted 100 Neutrophils % (Manual) 97 % (45-75) H Lymphocytes % (Manual) Pending Monocytes % (Manual) 2 % (1-10) Eosinophils % (Manual) 0 % (0-3) Basophils % (Manual) 0 % (0-2) Band Neutrophils 1 % (0-8) Platelet Estimate Decreased L Platelet Morphology Normal Anisocytosis 1+ Uric Acid 5.0 MG/DL (2.6-7.2) Phosphorus Level 4.3 MG/DL (2.5-4.9) Magnesium Level 2.9 MG/DL (1.8-2.4) H Total Bilirubin 0.4 MG/DL (0.2-1.0) Aspartate Amino Transf (AST/SGOT) 29 U/L (15-37) Alanine Aminotransferase (ALT/SGPT) 9 U/L (12-78) L Alkaline Phosphatase 111 U/L (46-116) C-Reactive Protein, Quantitative 7.8 mg/dL (0.00-0.90) H Pro-B-Type Natriuretic Peptide 9264 pg/mL (0-125) H Total Protein 4.4 G/DL (6.4-8.2) L Albumin 0.9 G/DL (3.4-5.0) L Globulin 3.5 g/dL Albumin/Globulin Ratio 0.3 (1.0-2.7) L Objective HEENT: Orally intubated Cardiovascular: Sinus tachycardia Respiratory/Chest: Coarse rhonchi Abdomen: Post op with 2 VELVET drain Extremities: 1 plus edema. Right groin dialysis catheter Everett Stephenson MD Jun 01, 2018 11:46
--- NOTE | 2018-06-01 12:04 | Nephrology Progress Note ---
Assessment/Plan Problem List: (1) ESRD (end stage renal disease) on dialysis (2) Perforated bowel (3) Hyponatremia (4) Major depression (5) Nausea & vomiting (6) H/O abdominal surgery Assessment: recent (7) Shock Assessment recent abdominal surgery hemodynamically stablized over night Presents with CHF and Low Na ESRD ACS DM HTN h/o GI bleed Depression Plan transfuse 2 units more K in TPN Stop Mag in TPN remains intubated off pressors on TPN- adjust Na and K and Mag in TPN HD 05/29 - 2 liters remove next HD in am 06/01 aim to correct lytes on steroids vented insulin for high BS hold dig , check levels, resume as needed Has abd surgery 05/15 Perforated bowel graft clotted , has a femoral felice right HOLD ALL MIND ALTERING MEDS - DC all po meds FLUID CHALLENGE pressors as needed BP HR Pain control discussed with RN and Dr Jones IV protonix Subjective ROS Limited/Unobtainable: Yes Objective Objective Last 24 Hour Vital Signs Date Time Temp Pulse Resp B/P (MAP) Pulse Ox O2 Delivery O2 Flow Rate FiO2 06/01/18 11:25 88 24 40 06/01/18 11:00 92 29 128/49 (75) 98 06/01/18 10:49 95 26 40 06/01/18 10:00 86 19 135/54 (81) 99 06/01/18 09:10 89 29 40 06/01/18 09:00 83 27 162/54 (90) 100 06/01/18 09:00 100 06/01/18 08:00 91 27 156/72 (100) 100 06/01/18 08:00 87 06/01/18 08:00 40 06/01/18 08:00 Mechanical Ventilator Endotracheal Tube Mechanical Ventilator 06/01/18 07:10 86 28 40 06/01/18 07:00 97.8 89 26 160/70 (100) 100 06/01/18 06:00 89 25 151/63 (92) 100 06/01/18 05:11 92 25 40 06/01/18 05:00 91 24 150/77 (101) 100 06/01/18 04:00 81 06/01/18 04:00 Mechanical Ventilator Endotracheal Tube Mechanical Ventilator 06/01/18 04:00 98.2 85 24 140/77 (98) 100 06/01/18 03:00 81 27 134/74 (94) 100 06/01/18 02:55 81 26 40 06/01/18 02:00 83 24 133/61 (85) 100 06/01/18 01:18 40 06/01/18 00:46 74 25 40 06/01/18 00:00 76 06/01/18 00:00 40 06/01/18 00:00 Mechanical Ventilator Endotracheal Tube Mechanical Ventilator 06/01/18 00:00 98.6 87 24 150/71 (97) 100 05/31/18 23:00 92 24 135/63 (87) 100 05/31/18 22:53 94 26 40 05/31/18 22:00 93 25 163/68 (99) 100 05/31/18 21:00 93 25 153/68 (96) 100 05/31/18 21:00 83 20 40 05/31/18 20:09 145/59 05/31/18 20:00 98.2 76 17 145/59 (87) 100 05/31/18 20:00 Mechanical Ventilator Endotracheal Tube Mechanical Ventilator 05/31/18 20:00 76 05/31/18 19:00 80 22 125/60 (81) 100 05/31/18 18:44 79 29 40 05/31/18 18:00 89 28 152/82 (105) 100 05/31/18 17:22 87 28 40 05/31/18 17:00 87 28 162/66 (98) 100 05/31/18 16:04 88 05/31/18 16:00 40 05/31/18 16:00 Mechanical Ventilator Endotracheal Tube Mechanical Ventilator 05/31/18 16:00 86 27 148/64 (92) 99 05/31/18 15:27 86 29 40 05/31/18 15:00 87 27 143/64 (90) 98 05/31/18 14:00 85 27 146/60 (88) 100 05/31/18 13:12 86 26 40 05/31/18 13:00 98.1 75 25 144/75 (98) 100 Intake and Output 05/31/18 06/01/18 19:00 07:00 Intake Total 1573.753 ml 1125.004 ml Output Total 3400 ml 224 ml Balance -1826.247 ml 901.004 ml IV Total 1573.753 ml 1125.004 ml Output Urine Total 2 ml Stool Total 2 ml Drainage Total 400 ml 220 ml Hemodialysis UF 3000 ml # Bowel Movements 2 8 Laboratory Tests 05/31/18 17:30: Sodium Level 138, Potassium Level 3.6, Chloride Level 102, Carbon Dioxide Level 23, Anion Gap 13, Blood Urea Nitrogen 78H, Creatinine 3.6H, Estimat Glomerular Filtration Rate , Glucose Level 67L, Calcium Level 8.0L 05/31/18 21:25: Glucose Level 168#H 06/01/18 04:30: Sodium Level 140, Potassium Level 3.2L, Chloride Level 103, Carbon Dioxide Level 25, Anion Gap 12, Blood Urea Nitrogen 86H, Creatinine 4.1H, Estimat Glomerular Filtration Rate , Glucose Level 74, Calcium Level 7.7L, White Blood Count 20.7H, Red Blood Count 2.40L, Hemoglobin 7.1L, Hematocrit 21.1L, Mean Corpuscular Volume 88, Mean Corpuscular Hemoglobin 29.7, Mean Corpuscular Hemoglobin Concent 33.7, Red Cell Distribution Width 15.8H, Platelet Count 103L , Mean Platelet Volume 9.6, Neutrophils (%) (Auto) , Lymphocytes (%) (Auto) , Monocytes (%) (Auto) , Eosinophils (%) (Auto) , Basophils (%) (Auto) , Differential Total Cells Counted 100, Neutrophils % (Manual) 97H, Lymphocytes % (Manual) 0L, Monocytes % (Manual) 2, Eosinophils % (Manual) 0, Basophils % ( Manual) 0, Band Neutrophils 1, Platelet Estimate DecreasedL, Platelet Morphology Normal, Anisocytosis 1+, Uric Acid 5.0, Phosphorus Level 4.3, Magnesium Level 2.9H, Total Bilirubin 0.4, Aspartate Amino Transf (AST/SGOT) 29 , Alanine Aminotransferase (ALT/SGPT) 9L, Alkaline Phosphatase 111, C-Reactive Protein, Quantitative 7.8H, Pro-B-Type Natriuretic Peptide 9264H, Total Protein 4.4L, Albumin 0.9L, Globulin 3.5, Albumin/Globulin Ratio 0.3L Height (Feet): 5 Height (Inches): 5.00 Weight (Pounds): 187 EENT: other - Vented Cardiovascular: tachycardia Respiratory/Chest: decreased breath sounds Abdomen: distended Objective no change Maurilio Arroyo MD Jun 01, 2018 12:04
--- NOTE | 2018-06-01 13:31 | NUR ---
NURSE NOTES: Spoke with Gi from [facility] to schedule pt for tomorrow. Will continue to monitor.
[2018-06-01] MEDS: Cefepime HCl 2 GM in D5W 55 ML IVPB SCH (13:45)
--- NOTE | 2018-06-01 14:02 | General Progress Note ---
Assessment/Plan Assessment/Plan Assessment - septic shock - off pressors - abdominal infection - s/p exlap, multi-organism culture - liquid stools - resp failure - on vent - renal failure - malnutrition - on TPN Recommendation - supportive care - Abx - TF when OK with surgery - Check C Diff - TPN per renal - follow labs - vent care - HD - guarded Subjective Allergies: Coded Allergies: No Known Allergies (Unverified , 11/12/12) Subjective above noted intubated (+) loose mucoid stools on TPN d/w RN Objective Last 24 Hour Vital Signs Date Time Temp Pulse Resp B/P (MAP) Pulse Ox O2 Delivery O2 Flow Rate FiO2 06/01/18 13:57 92 24 152/66 (94) 100 06/01/18 13:00 98 26 146/83 (104) 100 06/01/18 12:41 82 27 40 06/01/18 12:00 92 06/01/18 12:00 Mechanical Ventilator Endotracheal Tube Mechanical Ventilator 06/01/18 12:00 40 06/01/18 12:00 80 23 125/67 (86) 98 06/01/18 11:25 88 24 40 06/01/18 11:00 92 29 128/49 (75) 98 06/01/18 10:49 95 26 40 06/01/18 10:00 86 19 135/54 (81) 99 06/01/18 09:10 89 29 40 06/01/18 09:00 83 27 162/54 (90) 100 06/01/18 09:00 100 06/01/18 08:00 91 27 156/72 (100) 100 06/01/18 08:00 87 06/01/18 08:00 40 06/01/18 08:00 Mechanical Ventilator Endotracheal Tube Mechanical Ventilator 06/01/18 07:10 86 28 40 06/01/18 07:00 97.8 89 26 160/70 (100) 100 06/01/18 06:00 89 25 151/63 (92) 100 06/01/18 05:11 92 25 40 06/01/18 05:00 91 24 150/77 (101) 100 06/01/18 04:00 81 06/01/18 04:00 Mechanical Ventilator Endotracheal Tube Mechanical Ventilator 06/01/18 04:00 98.2 85 24 140/77 (98) 100 06/01/18 03:00 81 27 134/74 (94) 100 06/01/18 02:55 81 26 40 06/01/18 02:00 83 24 133/61 (85) 100 06/01/18 01:18 40 06/01/18 00:46 74 25 40 06/01/18 00:00 76 06/01/18 00:00 40 06/01/18 00:00 Mechanical Ventilator Endotracheal Tube Mechanical Ventilator 06/01/18 00:00 98.6 87 24 150/71 (97) 100 05/31/18 23:00 92 24 135/63 (87) 100 05/31/18 22:53 94 26 40 05/31/18 22:00 93 25 163/68 (99) 100 05/31/18 21:00 93 25 153/68 (96) 100 05/31/18 21:00 83 20 40 05/31/18 20:09 145/59 05/31/18 20:00 98.2 76 17 145/59 (87) 100 05/31/18 20:00 Mechanical Ventilator Endotracheal Tube Mechanical Ventilator 05/31/18 20:00 76 05/31/18 19:00 80 22 125/60 (81) 100 05/31/18 18:44 79 29 40 05/31/18 18:00 89 28 152/82 (105) 100 05/31/18 17:22 87 28 40 05/31/18 17:00 87 28 162/66 (98) 100 05/31/18 16:04 88 05/31/18 16:00 40 05/31/18 16:00 Mechanical Ventilator Endotracheal Tube Mechanical Ventilator 05/31/18 16:00 86 27 148/64 (92) 99 05/31/18 15:27 86 29 40 05/31/18 15:00 87 27 143/64 (90) 98 Intake and Output 05/31/18 06/01/18 19:00 07:00 Intake Total 1573.753 ml 1125.004 ml Output Total 3400 ml 224 ml Balance -1826.247 ml 901.004 ml IV Total 1573.753 ml 1125.004 ml Output Urine Total 2 ml Stool Total 2 ml Drainage Total 400 ml 220 ml Hemodialysis UF 3000 ml # Bowel Movements 2 8 Laboratory Tests 05/31/18 17:30: Sodium Level 138, Potassium Level 3.6, Chloride Level 102, Carbon Dioxide Level 23, Anion Gap 13, Blood Urea Nitrogen 78H, Creatinine 3.6H, Estimat Glomerular Filtration Rate , Glucose Level 67L, Calcium Level 8.0L 05/31/18 21:25: Glucose Level 168#H 06/01/18 04:30: Sodium Level 140, Potassium Level 3.2L, Chloride Level 103, Carbon Dioxide Level 25, Anion Gap 12, Blood Urea Nitrogen 86H, Creatinine 4.1H, Estimat Glomerular Filtration Rate , Glucose Level 74, Calcium Level 7.7L, White Blood Count 20.7H, Red Blood Count 2.40L, Hemoglobin 7.1L, Hematocrit 21.1L, Mean Corpuscular Volume 88, Mean Corpuscular Hemoglobin 29.7, Mean Corpuscular Hemoglobin Concent 33.7, Red Cell Distribution Width 15.8H, Platelet Count 103L , Mean Platelet Volume 9.6, Neutrophils (%) (Auto) , Lymphocytes (%) (Auto) , Monocytes (%) (Auto) , Eosinophils (%) (Auto) , Basophils (%) (Auto) , Differential Total Cells Counted 100, Neutrophils % (Manual) 97H, Lymphocytes % (Manual) 0L, Monocytes % (Manual) 2, Eosinophils % (Manual) 0, Basophils % ( Manual) 0, Band Neutrophils 1, Platelet Estimate DecreasedL, Platelet Morphology Normal, Anisocytosis 1+, Uric Acid 5.0, Phosphorus Level 4.3, Magnesium Level 2.9H, Total Bilirubin 0.4, Aspartate Amino Transf (AST/SGOT) 29 , Alanine Aminotransferase (ALT/SGPT) 9L, Alkaline Phosphatase 111, C-Reactive Protein, Quantitative 7.8H, Pro-B-Type Natriuretic Peptide 9264H, Total Protein 4.4L, Albumin 0.9L, Globulin 3.5, Albumin/Globulin Ratio 0.3L Height (Feet): 5 Height (Inches): 5.00 Weight (Pounds): 187 Objective Intubated NCAT ETT / OGT Supple Coarse BS RR abd more flat, (+) large dressing with VELVET x 2 no edema withdrawn Lisa Jain MD Jun 01, 2018 14:02
[2018-06-01] MEDS: Norepinephrine Bitartrate 8 MG in D5W 500ml 492 ML IV SCH (14:28)
--- NOTE | 2018-06-01 14:34 | NUR ---
NURSE NOTES: Started second unit of PRBC. No acute distress. Will continue to monitor.
--- NOTE | 2018-06-01 14:47 | General Progress Note ---
Progress Note Progress Note surgery: tolerating vent weaning but not ready for extubation labs noted dressings changed drains serous cont current care Tomas Chandler Jun 01, 2018 14:47
--- NOTE | 2018-06-01 15:21 | Infectious Diseases Prog Note ---
"Assessment/Plan Assessment/Plan antibiotics : cefepime, levoquin, flagyl, fluconazole A 1. serratia | enterobacter sepsis 2. gram positive UTI 3. diabetes mellitus 4. hypertension 5. renal failure on dialysis 6. leucocytosis resolved 7. enterobacter | citrobacter | serratia | bacteroides | blanca parapsilosis peritonitis 8. small bowel perforation 9. anastomotic leak 10. s/p lap cholecystectomy P 1. continue cefepime, levoquin, flagyl, fluconazole 2. will follow up cultures Subjective ROS Limited/Unobtainable: Yes Allergies: Coded Allergies: No Known Allergies (Unverified , 11/12/12) Objective Vital Signs Last 24 Hour Vital Signs Date Time Temp Pulse Resp B/P (MAP) Pulse Ox O2 Delivery O2 Flow Rate FiO2 06/01/18 14:28 152/66 06/01/18 13:57 92 24 152/66 (94) 100 06/01/18 13:00 98 26 146/83 (104) 100 06/01/18 12:41 82 27 40 06/01/18 12:00 92 06/01/18 12:00 Mechanical Ventilator Endotracheal Tube Mechanical Ventilator 06/01/18 12:00 40 06/01/18 12:00 80 23 125/67 (86) 98 06/01/18 11:25 88 24 40 06/01/18 11:00 92 29 128/49 (75) 98 06/01/18 10:49 95 26 40 06/01/18 10:00 86 19 135/54 (81) 99 06/01/18 09:10 89 29 40 06/01/18 09:00 83 27 162/54 (90) 100 06/01/18 09:00 100 06/01/18 08:00 91 27 156/72 (100) 100 06/01/18 08:00 87 06/01/18 08:00 40 06/01/18 08:00 Mechanical Ventilator Endotracheal Tube Mechanical Ventilator 06/01/18 07:10 86 28 40 06/01/18 07:00 97.8 89 26 160/70 (100) 100 06/01/18 06:00 89 25 151/63 (92) 100 06/01/18 05:11 92 25 40 06/01/18 05:00 91 24 150/77 (101) 100 06/01/18 04:00 81 06/01/18 04:00 Mechanical Ventilator Endotracheal Tube Mechanical Ventilator 06/01/18 04:00 98.2 85 24 140/77 (98) 100 06/01/18 03:00 81 27 134/74 (94) 100 06/01/18 02:55 81 26 40 06/01/18 02:00 83 24 133/61 (85) 100 06/01/18 01:18 40 06/01/18 00:46 74 25 40 06/01/18 00:00 76 06/01/18 00:00 40 06/01/18 00:00 Mechanical Ventilator Endotracheal Tube Mechanical Ventilator 06/01/18 00:00 98.6 87 24 150/71 (97) 100 05/31/18 23:00 92 24 135/63 (87) 100 05/31/18 22:53 94 26 40 05/31/18 22:00 93 25 163/68 (99) 100 05/31/18 21:00 93 25 153/68 (96) 100 05/31/18 21:00 83 20 40 05/31/18 20:09 145/59 05/31/18 20:00 98.2 76 17 145/59 (87) 100 05/31/18 20:00 Mechanical Ventilator Endotracheal Tube Mechanical Ventilator 05/31/18 20:00 76 05/31/18 19:00 80 22 125/60 (81) 100 05/31/18 18:44 79 29 40 05/31/18 18:00 89 28 152/82 (105) 100 05/31/18 17:22 87 28 40 05/31/18 17:00 87 28 162/66 (98) 100 05/31/18 16:04 88 05/31/18 16:00 40 05/31/18 16:00 Mechanical Ventilator Endotracheal Tube Mechanical Ventilator 05/31/18 16:00 86 27 148/64 (92) 99 05/31/18 15:27 86 29 40 Height (Feet): 5 Height (Inches): 5.00 Weight (Pounds): 187 HEENT: other - intubated Respiratory/Chest: lungs clear Cardiovascular: normal rate, regular rhythm, no gallop/murmur Abdomen: soft, non tender, other - wound clean, 2 Edward drains Extremities: other - + edema, right subclavian and right groin catheter Laboratory Tests Test 05/31/18 17:30 05/31/18 21:25 06/01/18 04:30 Sodium Level 138 MMOL/L (136-145) 140 MMOL/L (136-145) Potassium Level 3.6 MMOL/L (3.5-5.1) 3.2 MMOL/L (3.5-5.1) L Chloride Level 102 MMOL/L (98-107) 103 MMOL/L (98-107) Carbon Dioxide Level 23 MMOL/L (21-32) 25 MMOL/L (21-32) Anion Gap 13 mmol/L (5-15) 12 mmol/L (5-15) Blood Urea Nitrogen 78 mg/dL (7-18) H 86 mg/dL (7-18) H Creatinine 3.6 MG/DL (0.55-1.30) H 4.1 MG/DL (0.55-1.30) H Estimat Glomerular Filtration Rate mL/min (>60) mL/min (>60) Glucose Level 67 MG/DL (74-106) L 168 MG/DL (74-106) #H 74 MG/DL (74-106) Calcium Level 8.0 MG/DL (8.5-10.1) L 7.7 MG/DL (8.5-10.1) L White Blood Count 20.7 K/UL (4.8-10.8) H Red Blood Count 2.40 M/UL (4.70-6.10) L Hemoglobin 7.1 G/DL (14.2-18.0) L Hematocrit 21.1 % (42.0-52.0) L Mean Corpuscular Volume 88 FL (80-99) Mean Corpuscular Hemoglobin 29.7 PG (27.0-31.0) Mean Corpuscular Hemoglobin Concent 33.7 G/DL (32.0-36.0) Red Cell Distribution Width 15.8 % (11.6-14.8) H Platelet Count 103 K/UL (150-450) L Mean Platelet Volume 9.6 FL (6.5-10.1) Neutrophils (%) (Auto) % (45.0-75.0) Lymphocytes (%) (Auto) % (20.0-45.0) Monocytes (%) (Auto) % (1.0-10.0) Eosinophils (%) (Auto) % (0.0-3.0) Basophils (%) (Auto) % (0.0-2.0) Differential Total Cells Counted 100 Neutrophils % (Manual) 97 % (45-75) H Lymphocytes % (Manual) 0 % (20-45) L Monocytes % (Manual) 2 % (1-10) Eosinophils % (Manual) 0 % (0-3) Basophils % (Manual) 0 % (0-2) Band Neutrophils 1 % (0-8) Platelet Estimate Decreased L Platelet Morphology Normal Anisocytosis 1+ Uric Acid 5.0 MG/DL (2.6-7.2) Phosphorus Level 4.3 MG/DL (2.5-4.9) Magnesium Level 2.9 MG/DL (1.8-2.4) H Total Bilirubin 0.4 MG/DL (0.2-1.0) Aspartate Amino Transf (AST/SGOT) 29 U/L (15-37) Alanine Aminotransferase (ALT/SGPT) 9 U/L (12-78) L Alkaline Phosphatase 111 U/L (46-116) C-Reactive Protein, Quantitative 7.8 mg/dL (0.00-0.90) H Pro-B-Type Natriuretic Peptide 9264 pg/mL (0-125) H Total Protein 4.4 G/DL (6.4-8.2) L Albumin 0.9 G/DL (3.4-5.0) L Globulin 3.5 g/dL Albumin/Globulin Ratio 0.3 (1.0-2.7) L Current Medications Medications (Trade) Dose Ordered Sig/Min Route PRN Reason Start Time Stop Time Status Last Admin Dose Admin Acetaminophen (Tylenol) 650 mg Q4H PRN RECTAL Mild Pain/Temp > 100.5 05/21/18 12:00 06/20/18 11:59 Cefepime HCl 2 gm/ Dextrose 55 ml @ 110 mls/hr Q24H IVPB 05/25/18 13:00 06/07/18 12:59 06/01/18 13:45 Chlorhexidine Gluconate (Tatyana-Hex 2%) 1 applic DAILY@2000 TOPIC 05/12/18 20:00 06/11/18 19:59 05/31/18 20:05 Dextrose 1,000 ml @ 0 mls/hr Q24H PRN IV PN interrupted or unavailable 05/25/18 21:00 2/4/19 20:59 Dextrose (Dextrose 50%) 25 ml Q30M PRN IV Hypoglycemia 05/26/18 12:45 06/25/18 12:44 Dextrose (Dextrose 50%) 50 ml Q30M PRN IV Hypoglycemia 05/26/18 12:45 06/25/18 12:44 05/31/18 21:12 Digoxin (Lanoxin) 0.125 mg 3XW IVP 06/03/18 09:00 07/03/18 08:59 Epoetin Bret (Procrit (for ESRD on dialysis)) 10,000 units SUN-SUN-SUN SUBQ 06/03/18 21:00 06/30/18 20:59 Fat Emulsion Intravenous 250 ml/Amino Acids/ Electrolytes/ Dextrose 2,050 ml @ 85.417 mls/ hr Q24H IV 06/01/18 09:00 06/01/18 19:59 06/01/18 09:30 Fat Emulsion Intravenous 250 ml/Amino Acids/ Electrolytes/ Dextrose 2,050 ml @ 85.417 mls/ hr Q24H IV 06/01/18 20:00 07/01/18 19:59 Fluconazole/ Sodium Chloride 100 ml @ 100 mls/hr Q24H IV 05/28/18 18:00 06/04/18 17:59 05/31/18 18:09 Hydrocortisone (Solu-CORTEF) 25 mg EVERY 8 HOURS IV 05/29/18 22:00 06/20/18 21:59 06/01/18 14:24 Hydromorphone HCl (Dilaudid) 1 mg Q2H PRN IVP Severe Pain (Pain Scale 7-10) 05/31/18 10:00 06/05/18 09:59 Insulin Aspart (NovoLOG) EVERY 4 HOURS SUBQ 05/24/18 17:00 06/15/18 20:59 06/01/18 13:47 Insulin Detemir (Levemir) 20 units Q12HR SUBQ 05/27/18 09:00 06/23/18 17:59 06/01/18 08:22 Levofloxacin 50 ml @ 50 mls/hr Q24H IVPB 05/25/18 13:00 06/07/18 12:59 06/01/18 13:45 Metronidazole 100 ml @ 100 mls/hr Q8HR IVPB 05/25/18 14:00 06/07/18 13:59 06/01/18 14:24 Nitroglycerin (Ntg) 1 patch Q24H TDERMAL 05/29/18 20:00 06/28/18 19:59 05/31/18 20:09 Norepinephrine Bitartrate 8 mg/ Dextrose 500 ml @ 0 mls/hr Q24H IV 05/21/18 14:30 06/20/18 14:29 05/27/18 14:30 Ondansetron HCl (Zofran) 4 mg Q6H PRN IVP Nausea & Vomiting 05/15/18 23:30 06/14/18 23:29 Pantoprazole (Protonix) 40 mg EVERY 12 HOURS IVP 05/12/18 21:00 06/10/18 20:59 06/01/18 08:20 Phytonadione (Vitamin K) 10 mg ONCE A WEEK SUBQ 05/25/18 21:00 06/24/18 20:59 05/25/18 20:30 Vasopressin 100 units/Sodium Chloride 100 ml @ 0 mls/hr Q24H IV 05/22/18 11:30 06/21/18 11:29 05/23/18 17:47 Martha Dupree MD Jun 01, 2018 15:21"
--- NOTE | 2018-06-01 15:54 | General Progress Note ---
Assessment/Plan Assessment/Plan # Anemia of chronic disease due to underlying chronic medical issues, multifactorial --> Anemia w/u has been reviewed, reordered and ferritin is >2000 --> Monitor for stability --> trend 10.3-->7.6-->8.9-->10.3-->9.5-->9.2-->8.3-->7.9-->8 --> not bleeding currently --> okay to give blood and products as patient unable to give consent, 2MD consent done --> continue Procrit 3x a week (started on 05/30) 3,000 sq dose # Thrombocytopenia due to septic shock --> vit K given for coagulopathy --> plt 163k-->116k-->83k-->98k-->105k # Small bowel perforation, s/p bowel resection, with Gram negative sepsis is on abx In ICU s/p Small bowel resection --> on broad spectrum abx --> on vanc/cefepime as per id--> now changed to zosyn, flagyl, micafungin--> on cefepime, levaquin and change per id --> s/p sb resection on 05/15, appreciate surg recs --> off pressors now # Hypofibrinoginemia -- potentially consumptive process given sepsis --> cryo given weeek of 05/23 --> fibrinogen 541 --> okay to give blood and products as patient unable to give consent, 2MD consent done # Lower extremity edema with an elevated BNP in a patient with renal failure on hemodialysis. --> on HD per Dr. Arroyo. 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 --> Nephro is following, appreciate recs. HD approx 3x a week --> On intermittent HD # Respiratory failure on a vent, intubated The time of note does not necessarily reflect the time of encounter Greatly appreciate consultation! Subjective Constitutional: Denies: no symptoms, chills, diaphoresis, fever, malaise, weakness, other HEENT: Denies: no symptoms, eye pain, blurred vision, tearing, double vision, ear pain, ear discharge, nose pain, nose congestion, throat pain, throat swelling, mouth pain, mouth swelling, other Respiratory: Denies: no symptoms, cough, orthopnea, shortness of breath, SOB with excertion, SOB at rest, sputum, stridor, wheezing, other Gastrointestinal/Abdominal: Denies: no symptoms, abdomen distended, abdominal pain, black stools, tarry stools, blood in stool, constipated, diarrhea, difficulty swallowing, nausea, poor appetite, poor fluid intake, rectal bleeding , vomiting, other Genitourinary: Denies: no symptoms, burning, discharge, frequency, flank pain, hematuria, incontinence, pain, urgency, other Neurologic/Psychiatric: Denies: no symptoms, anxiety, depressed, emotional problems, headache, numbness, paresthesia, pre-existing deficit, seizure, tingling, tremors, weakness, other Endocrine: Denies: no symptoms, excessive sweating, flushing, intolerance to cold, intolerance to heat, increased hunger, increased thirst, increased urine, unexplained weight gain, unexplained weight loss, other Allergies: Coded Allergies: No Known Allergies (Unverified , 11/12/12) Subjective 05/12: Pt resting in bed. No acute events. H/H stable. On abx. VS stable. 05/13: on pressors, on hep gtt, on steriods, abx, got hd, felice catheter in place : CT-A was negative, hep gtt as per cards, abg reviewed, moaning on exam, on ceftriaxone 05/15 :Pt remains in ICU. Currently undergoing HD. Pt on 2 cardiac drips for elevated Bp. WBC remains elevated. H/H stable. 05/16: s/p sb resection, In ICU s/p Small bowel resection on Amiodarone and Levophed drip. HR around 100. 05/17: Orally intubated on Ac 16, Vt 500, P 5 fio2 30%. Pt continues NPO at this time. Right upper arm and right FA IV sites patent and intact at this time. Amio gtt running 05/18: Pt remains in ICU. Pt for STAT HD. WBC remains elevated, afebrile. 05/19: getting hd periodically, no other events, vent to be weaned, labs reviewed, on dilaudid, ativan and fentanyl per pulm 05/21: prognosis is more guarded, no events to report, no f/c, but on two pressors now, on hep gtt for antonio thrombosis, hd as well 3x/week 05/22: on 2 pressors, seen by cards, renal, ryan drain draining improved, still on vent, converted to sr, on amio gtt, lactic acid downtrending, minimally responsive, on heparin gtt as well for antonio thrombus 05/23: patient to go to OR [facility] potential washout, ostomy, and line placement, fibrinogen low, needs cryoprecipirate, will also check inr/pt, cbc reviewed, electrolytes noted 05/24: Patient continues to be intubated on vent. He is s/p exploratory lap with wound washout and wound vac placement. 05/25: Pt is seen in the room, resting in bed. doing well since wound vac change , cbc reviewed, plt 163 05/26: Patient is is seen at bedside, intubated on vent. Wound vac still applied. No signs of pain at this time. Plt 116 . 1.7: again off pressors, plt somewhat lower, monitoring meds, on amio, antifungal as well, could be contributing, platelets and vitk given 05/28: had more surgeries yesterday with Right hemicolectomy, omentectomy & removal of wound-vac, off pressors, HD 05/29/18, on vent, stable 05/29: extubated but reintubated, on cefepime at this time, amiodarone, being seen by cards, procrit started 05/30: Pt is in ICU, Extubated and reintubated yesterday.Off Levophed and Heparin drip since surgery. On the Vent. 05/31: no events, remains on the vent, off pressors, received hd today 2.5L were removed 06/01: no fevers or chills, receiving hd as needed, on 1 pressors, not tolerating SBT very well Objective Last 24 Hour Vital Signs Date Time Temp Pulse Resp B/P (MAP) Pulse Ox O2 Delivery O2 Flow Rate FiO2 06/01/18 15:25 90 27 40 06/01/18 15:00 92 25 150/63 (92) 100 06/01/18 14:28 152/66 06/01/18 13:57 92 24 152/66 (94) 100 06/01/18 13:00 98 26 146/83 (104) 100 06/01/18 12:41 82 27 40 06/01/18 12:00 92 06/01/18 12:00 Mechanical Ventilator Endotracheal Tube Mechanical Ventilator 06/01/18 12:00 40 06/01/18 12:00 80 23 125/67 (86) 98 06/01/18 11:25 88 24 40 06/01/18 11:00 98.0 92 29 128/49 (75) 98 06/01/18 10:49 95 26 40 06/01/18 10:00 86 19 135/54 (81) 99 06/01/18 09:10 89 29 40 06/01/18 09:00 83 27 162/54 (90) 100 06/01/18 09:00 100 06/01/18 08:00 91 27 156/72 (100) 100 06/01/18 08:00 87 06/01/18 08:00 40 06/01/18 08:00 Mechanical Ventilator Endotracheal Tube Mechanical Ventilator 06/01/18 07:10 86 28 40 06/01/18 07:00 97.8 89 26 160/70 (100) 100 06/01/18 06:00 89 25 151/63 (92) 100 06/01/18 05:11 92 25 40 06/01/18 05:00 91 24 150/77 (101) 100 06/01/18 04:00 81 06/01/18 04:00 Mechanical Ventilator Endotracheal Tube Mechanical Ventilator 06/01/18 04:00 98.2 85 24 140/77 (98) 100 06/01/18 03:00 81 27 134/74 (94) 100 06/01/18 02:55 81 26 40 06/01/18 02:00 83 24 133/61 (85) 100 06/01/18 01:18 40 06/01/18 00:46 74 25 40 06/01/18 00:00 76 06/01/18 00:00 40 06/01/18 00:00 Mechanical Ventilator Endotracheal Tube Mechanical Ventilator 06/01/18 00:00 98.6 87 24 150/71 (97) 100 05/31/18 23:00 92 24 135/63 (87) 100 05/31/18 22:53 94 26 40 05/31/18 22:00 93 25 163/68 (99) 100 05/31/18 21:00 93 25 153/68 (96) 100 05/31/18 21:00 83 20 40 05/31/18 20:09 145/59 05/31/18 20:00 98.2 76 17 145/59 (87) 100 05/31/18 20:00 Mechanical Ventilator Endotracheal Tube Mechanical Ventilator 05/31/18 20:00 76 05/31/18 19:00 80 22 125/60 (81) 100 05/31/18 18:44 79 29 40 05/31/18 18:00 89 28 152/82 (105) 100 05/31/18 17:22 87 28 40 05/31/18 17:00 87 28 162/66 (98) 100 05/31/18 16:04 88 05/31/18 16:00 40 05/31/18 16:00 Mechanical Ventilator Endotracheal Tube Mechanical Ventilator 05/31/18 16:00 86 27 148/64 (92) 99 Intake and Output 05/31/18 06/01/18 19:00 07:00 Intake Total 1573.753 ml 1125.004 ml Output Total 3400 ml 224 ml Balance -1826.247 ml 901.004 ml IV Total 1573.753 ml 1125.004 ml Output Urine Total 2 ml Stool Total 2 ml Drainage Total 400 ml 220 ml Hemodialysis UF 3000 ml # Bowel Movements 2 8 Laboratory Tests 05/31/18 17:30: Sodium Level 138, Potassium Level 3.6, Chloride Level 102, Carbon Dioxide Level 23, Anion Gap 13, Blood Urea Nitrogen 78H, Creatinine 3.6H, Estimat Glomerular Filtration Rate , Glucose Level 67L, Calcium Level 8.0L 05/31/18 21:25: Glucose Level 168#H 06/01/18 04:30: Sodium Level 140, Potassium Level 3.2L, Chloride Level 103, Carbon Dioxide Level 25, Anion Gap 12, Blood Urea Nitrogen 86H, Creatinine 4.1H, Estimat Glomerular Filtration Rate , Glucose Level 74, Calcium Level 7.7L, White Blood Count 20.7H, Red Blood Count 2.40L, Hemoglobin 7.1L, Hematocrit 21.1L, Mean Corpuscular Volume 88, Mean Corpuscular Hemoglobin 29.7, Mean Corpuscular Hemoglobin Concent 33.7, Red Cell Distribution Width 15.8H, Platelet Count 103L , Mean Platelet Volume 9.6, Neutrophils (%) (Auto) , Lymphocytes (%) (Auto) , Monocytes (%) (Auto) , Eosinophils (%) (Auto) , Basophils (%) (Auto) , Differential Total Cells Counted 100, Neutrophils % (Manual) 97H, Lymphocytes % (Manual) 0L, Monocytes % (Manual) 2, Eosinophils % (Manual) 0, Basophils % ( Manual) 0, Band Neutrophils 1, Platelet Estimate DecreasedL, Platelet Morphology Normal, Anisocytosis 1+, Uric Acid 5.0, Phosphorus Level 4.3, Magnesium Level 2.9H, Total Bilirubin 0.4, Aspartate Amino Transf (AST/SGOT) 29 , Alanine Aminotransferase (ALT/SGPT) 9L, Alkaline Phosphatase 111, C-Reactive Protein, Quantitative 7.8H, Pro-B-Type Natriuretic Peptide 9264H, Total Protein 4.4L, Albumin 0.9L, Globulin 3.5, Albumin/Globulin Ratio 0.3L Height (Feet): 5 Height (Inches): 5.00 Weight (Pounds): 187 Objective PE: VITAL SIGNS: Have been reviewed HEENT: PERRLA. intubated, vent++ NECK: Supple. No lymphadenopathy CHEST: ++ intubated CARDIOVASCULAR: Tachycardic. GASTROINTESTINAL: Distended. Positive bowel sounds. Nontender. No organomegaly. ++ ryan drain in place EXTREMITY: 2+ edema. NEURO: responsive to simple command Reinaldo Leon MD Jun 01, 2018 15:54
--- NOTE | 2018-06-01 16:55 | Pulmonolgy Critical Care Note ---
Critical Care - Asmt/Plan Problems: (1) Shock (2) Hypoxemia (3) Elevated d-dimer Assessment & Plan: S/P neg CT-A + UE DVT (4) Hypotension (5) Atrial fibrillation (6) ESRD (end stage renal disease) on dialysis (7) ACS (acute coronary syndrome) (8) Sacral decubitus ulcer, stage III (9) S/P cholecystectomy (10) Serratia sepsis (11) S/P exploratory laparotomy (12) Perforated viscus (13) Thrombocythemia Assessment/Plan: -Off NE -Decrease HC to 25 BID and taper -Continue current vent settings -Daily SBT -Titrate down FiO2 and PEEP to keep SaO2 > 90% -HD per renal as able -[facility] held, start @ least Hep SQ when able -Monitor CBC, transfuse if Hb < 8 - getting 2 U PRBC today -Monitor for bleeding -Flucon, Flagyl and Cefepime per ID, F/U Cx's and C diff, monitor WCt -NPO , TPN, start TF's when ok with surgery -F/U surgery recs -FC D/W RN and RT CCT 55 Critical Care - Objective Last 24 Hour Vital Signs Date Time Temp Pulse Resp B/P (MAP) Pulse Ox O2 Delivery O2 Flow Rate FiO2 06/01/18 16:00 40 06/01/18 16:00 Mechanical Ventilator Endotracheal Tube Mechanical Ventilator 06/01/18 16:00 87 06/01/18 16:00 86 23 159/65 (96) 100 06/01/18 15:25 90 27 40 06/01/18 15:00 92 25 150/63 (92) 100 06/01/18 14:28 152/66 06/01/18 13:57 92 24 152/66 (94) 100 06/01/18 13:00 98 26 146/83 (104) 100 06/01/18 12:41 82 27 40 06/01/18 12:00 92 06/01/18 12:00 Mechanical Ventilator Endotracheal Tube Mechanical Ventilator 06/01/18 12:00 40 06/01/18 12:00 80 23 125/67 (86) 98 06/01/18 11:25 88 24 40 06/01/18 11:00 98.0 92 29 128/49 (75) 98 06/01/18 10:49 95 26 40 06/01/18 10:00 86 19 135/54 (81) 99 06/01/18 09:10 89 29 40 06/01/18 09:00 83 27 162/54 (90) 100 06/01/18 09:00 100 06/01/18 08:00 91 27 156/72 (100) 100 06/01/18 08:00 87 06/01/18 08:00 40 06/01/18 08:00 Mechanical Ventilator Endotracheal Tube Mechanical Ventilator 06/01/18 07:10 86 28 40 06/01/18 07:00 97.8 89 26 160/70 (100) 100 06/01/18 06:00 89 25 151/63 (92) 100 06/01/18 05:11 92 25 40 06/01/18 05:00 91 24 150/77 (101) 100 06/01/18 04:00 81 06/01/18 04:00 Mechanical Ventilator Endotracheal Tube Mechanical Ventilator 06/01/18 04:00 98.2 85 24 140/77 (98) 100 06/01/18 03:00 81 27 134/74 (94) 100 06/01/18 02:55 81 26 40 06/01/18 02:00 83 24 133/61 (85) 100 06/01/18 01:18 40 06/01/18 00:46 74 25 40 06/01/18 00:00 76 06/01/18 00:00 40 06/01/18 00:00 Mechanical Ventilator Endotracheal Tube Mechanical Ventilator 06/01/18 00:00 98.6 87 24 150/71 (97) 100 05/31/18 23:00 92 24 135/63 (87) 100 05/31/18 22:53 94 26 40 05/31/18 22:00 93 25 163/68 (99) 100 05/31/18 21:00 93 25 153/68 (96) 100 05/31/18 21:00 83 20 40 05/31/18 20:09 145/59 05/31/18 20:00 98.2 76 17 145/59 (87) 100 05/31/18 20:00 Mechanical Ventilator Endotracheal Tube Mechanical Ventilator 05/31/18 20:00 76 05/31/18 19:00 80 22 125/60 (81) 100 05/31/18 18:44 79 29 40 05/31/18 18:00 89 28 152/82 (105) 100 05/31/18 17:22 87 28 40 05/31/18 17:00 87 28 162/66 (98) 100 Status: obtunded Condition: critical HEENT: atraumatic, normocephalic Neck: full ROM Lungs: rhonchi Heart: HR/BP stable Abdomen: soft, non-tender, active bowel sounds, other - dressed VELVET Extremities: cyanosis - no, clubbing - no, other - 1+ EMERITA Decubiti: location - sacrum, stage - DTI Accucheck: 138 Blood Sugars: BS controlled Critical Care - Subjective ROS Limited/Unobtainable: Yes ICU Day: 18 Intubation Day: Re-in 3 Interval Events: WCt 12, Hb 7.1 S/P 2 U PRBC C diff pending + diarrhea Off pressors, jen SBT for > 1 hour then placed back on vent No sig secretions, jen TPN Condition: critical IV Access: central EKG Rhythm: Sinus Rhythm FI02: 40 Vent Support Breath Rate: 16 Vent Support Mode: AC Vent Tidal Volume: 500 Sputum Amount: Small PEEP: 5.0 PIP: 28 Secretions: Small Fluids: SLIV Drips: None Tube Feeding Amount: 0 I&O: Intake and Output 05/31/18 06/01/18 19:00 07:00 Intake Total 1573.753 ml 1125.004 ml Output Total 3400 ml 224 ml Balance -1826.247 ml 901.004 ml IV Total 1573.753 ml 1125.004 ml Output Urine Total 2 ml Stool Total 2 ml Drainage Total 400 ml 220 ml Hemodialysis UF 3000 ml # Bowel Movements 2 8 Subjective: CROW ET-Tube: 7.5 ET Position: 24 Labs: Laboratory Tests Test 05/31/18 17:30 05/31/18 21:25 06/01/18 04:30 Sodium Level 138 MMOL/L (136-145) 140 MMOL/L (136-145) Potassium Level 3.6 MMOL/L (3.5-5.1) 3.2 MMOL/L (3.5-5.1) L Chloride Level 102 MMOL/L (98-107) 103 MMOL/L (98-107) Carbon Dioxide Level 23 MMOL/L (21-32) 25 MMOL/L (21-32) Anion Gap 13 mmol/L (5-15) 12 mmol/L (5-15) Blood Urea Nitrogen 78 mg/dL (7-18) H 86 mg/dL (7-18) H Creatinine 3.6 MG/DL (0.55-1.30) H 4.1 MG/DL (0.55-1.30) H Estimat Glomerular Filtration Rate mL/min (>60) mL/min (>60) Glucose Level 67 MG/DL (74-106) L 168 MG/DL (74-106) #H 74 MG/DL (74-106) Calcium Level 8.0 MG/DL (8.5-10.1) L 7.7 MG/DL (8.5-10.1) L White Blood Count 20.7 K/UL (4.8-10.8) H Red Blood Count 2.40 M/UL (4.70-6.10) L Hemoglobin 7.1 G/DL (14.2-18.0) L Hematocrit 21.1 % (42.0-52.0) L Mean Corpuscular Volume 88 FL (80-99) Mean Corpuscular Hemoglobin 29.7 PG (27.0-31.0) Mean Corpuscular Hemoglobin Concent 33.7 G/DL (32.0-36.0) Red Cell Distribution Width 15.8 % (11.6-14.8) H Platelet Count 103 K/UL (150-450) L Mean Platelet Volume 9.6 FL (6.5-10.1) Neutrophils (%) (Auto) % (45.0-75.0) Lymphocytes (%) (Auto) % (20.0-45.0) Monocytes (%) (Auto) % (1.0-10.0) Eosinophils (%) (Auto) % (0.0-3.0) Basophils (%) (Auto) % (0.0-2.0) Differential Total Cells Counted 100 Neutrophils % (Manual) 97 % (45-75) H Lymphocytes % (Manual) 0 % (20-45) L Monocytes % (Manual) 2 % (1-10) Eosinophils % (Manual) 0 % (0-3) Basophils % (Manual) 0 % (0-2) Band Neutrophils 1 % (0-8) Platelet Estimate Decreased L Platelet Morphology Normal Anisocytosis 1+ Uric Acid 5.0 MG/DL (2.6-7.2) Phosphorus Level 4.3 MG/DL (2.5-4.9) Magnesium Level 2.9 MG/DL (1.8-2.4) H Total Bilirubin 0.4 MG/DL (0.2-1.0) Aspartate Amino Transf (AST/SGOT) 29 U/L (15-37) Alanine Aminotransferase (ALT/SGPT) 9 U/L (12-78) L Alkaline Phosphatase 111 U/L (46-116) C-Reactive Protein, Quantitative 7.8 mg/dL (0.00-0.90) H Pro-B-Type Natriuretic Peptide 9264 pg/mL (0-125) H Total Protein 4.4 G/DL (6.4-8.2) L Albumin 0.9 G/DL (3.4-5.0) L Globulin 3.5 g/dL Albumin/Globulin Ratio 0.3 (1.0-2.7) L Daryl Jones MD Jun 01, 2018 16:55
--- NOTE | 2018-06-01 17:53 | NUR ---
NURSE NOTES: Dr Jones here to see pt. Solumedrol dose adjusted. Will continue to monitor.
--- NOTE | 2018-06-01 19:12 | General Progress Note ---
Assessment/Plan Problem List: (1) ACS (acute coronary syndrome) ICD Codes: I24.9 - Acute ischemic heart disease, unspecified SNOMED: 849792182 (2) ESRD (end stage renal disease) on dialysis ICD Codes: N18.6 - End stage renal disease; Z99.2 - Dependence on renal dialysis SNOMED: 490807435 (3) Depression ICD Codes: F32.9 - Major depressive disorder, single episode, unspecified SNOMED: 06505592 (4) Anemia ICD Codes: D64.9 - Anemia, unspecified SNOMED: 638991065 (5) Sacral decubitus ulcer, stage III ICD Codes: L89.153 - Pressure ulcer of sacral region, stage 3 SNOMED: 153312659, 932194231 (6) Major depression ICD Codes: F32.9 - Major depressive disorder, single episode, unspecified SNOMED: 800791368 (7) anxiety disorder (8) Atrial fibrillation ICD Codes: I48.91 - Unspecified atrial fibrillation SNOMED: 80599332 (9) Hypoxemia ICD Codes: R09.02 - Hypoxemia SNOMED: 549735753 (10) Hypotension ICD Codes: I95.9 - Hypotension, unspecified SNOMED: 58815140 (11) Shock ICD Codes: R57.9 - Shock, unspecified SNOMED: 27832484 (12) Elevated d-dimer ICD Codes: R79.89 - Other specified abnormal findings of blood chemistry SNOMED: 263511343 (13) encephalopathy due to metabolic factor Assessment/Plan resp failure s/p washout of pus / multiple exploratory lap esrd on hd s/p septic shick s/p perforated viscuis after cholycestectomy in another hospital arrythmia not improving poor prognosis Subjective ROS Limited/Unobtainable: Yes Allergies: Coded Allergies: No Known Allergies (Unverified , 11/12/12) Objective Last 24 Hour Vital Signs Date Time Temp Pulse Resp B/P (MAP) Pulse Ox O2 Delivery O2 Flow Rate FiO2 06/01/18 19:00 90 16 158/95 (116) 99 06/01/18 18:00 87 27 162/67 (98) 100 06/01/18 17:19 88 27 40 06/01/18 17:00 98.5 88 22 177/70 (105) 100 06/01/18 16:00 40 06/01/18 16:00 Mechanical Ventilator Endotracheal Tube Mechanical Ventilator 06/01/18 16:00 87 06/01/18 16:00 86 23 159/65 (96) 100 06/01/18 15:25 90 27 40 06/01/18 15:00 92 25 150/63 (92) 100 06/01/18 14:28 152/66 06/01/18 13:57 92 24 152/66 (94) 100 06/01/18 13:00 98 26 146/83 (104) 100 06/01/18 12:41 82 27 40 06/01/18 12:00 92 06/01/18 12:00 Mechanical Ventilator Endotracheal Tube Mechanical Ventilator 06/01/18 12:00 40 06/01/18 12:00 80 23 125/67 (86) 98 06/01/18 11:25 88 24 40 06/01/18 11:00 98.0 92 29 128/49 (75) 98 06/01/18 10:49 95 26 40 06/01/18 10:00 86 19 135/54 (81) 99 06/01/18 09:10 89 29 40 06/01/18 09:00 83 27 162/54 (90) 100 06/01/18 09:00 100 06/01/18 08:00 91 27 156/72 (100) 100 06/01/18 08:00 87 06/01/18 08:00 40 06/01/18 08:00 Mechanical Ventilator Endotracheal Tube Mechanical Ventilator 06/01/18 07:10 86 28 40 06/01/18 07:00 97.8 89 26 160/70 (100) 100 06/01/18 06:00 89 25 151/63 (92) 100 06/01/18 05:11 92 25 40 06/01/18 05:00 91 24 150/77 (101) 100 06/01/18 04:00 81 06/01/18 04:00 Mechanical Ventilator Endotracheal Tube Mechanical Ventilator 06/01/18 04:00 98.2 85 24 140/77 (98) 100 06/01/18 03:00 81 27 134/74 (94) 100 06/01/18 02:55 81 26 40 06/01/18 02:00 83 24 133/61 (85) 100 06/01/18 01:18 40 06/01/18 00:46 74 25 40 06/01/18 00:00 76 1/12/19 00:00 40 06/01/18 00:00 Mechanical Ventilator Endotracheal Tube Mechanical Ventilator 06/01/18 00:00 98.6 87 24 150/71 (97) 100 05/31/18 23:00 92 24 135/63 (87) 100 05/31/18 22:53 94 26 40 05/31/18 22:00 93 25 163/68 (99) 100 05/31/18 21:00 93 25 153/68 (96) 100 05/31/18 21:00 83 20 40 05/31/18 20:09 145/59 05/31/18 20:00 98.2 76 17 145/59 (87) 100 05/31/18 20:00 Mechanical Ventilator Endotracheal Tube Mechanical Ventilator 05/31/18 20:00 76 Intake and Output 05/31/18 06/01/18 18:59 06:59 Intake Total 1659.170 ml 939.587 ml Output Total 3400 ml 221 ml Balance -1740.830 ml 718.587 ml IV Total 1659.170 ml 939.587 ml Output Urine Total 0 ml Stool Total 1 ml Drainage Total 400 ml 220 ml Hemodialysis UF 3000 ml # Bowel Movements 2 7 Laboratory Tests 05/31/18 21:25: Glucose Level 168#H 06/01/18 04:30: Glucose Level 74, White Blood Count 20.7H, Red Blood Count 2.40L, Hemoglobin 7.1L, Hematocrit 21.1L, Mean Corpuscular Volume 88, Mean Corpuscular Hemoglobin 29.7, Mean Corpuscular Hemoglobin Concent 33.7, Red Cell Distribution Width 15.8H, Platelet Count 103L, Mean Platelet Volume 9.6, Neutrophils (%) (Auto) , Lymphocytes (%) (Auto) , Monocytes (%) (Auto) , Eosinophils (%) (Auto) , Basophils (%) (Auto) , Differential Total Cells Counted 100, Neutrophils % ( Manual) 97H, Lymphocytes % (Manual) 0L, Monocytes % (Manual) 2, Eosinophils % ( Manual) 0, Basophils % (Manual) 0, Band Neutrophils 1, Platelet Estimate DecreasedL, Platelet Morphology Normal, Anisocytosis 1+, Sodium Level 140, Potassium Level 3.2L, Chloride Level 103, Carbon Dioxide Level 25, Anion Gap 12 , Blood Urea Nitrogen 86H, Creatinine 4.1H, Estimat Glomerular Filtration Rate , Uric Acid 5.0, Calcium Level 7.7L, Phosphorus Level 4.3, Magnesium Level 2.9H , Total Bilirubin 0.4, Aspartate Amino Transf (AST/SGOT) 29, Alanine Aminotransferase (ALT/SGPT) 9L, Alkaline Phosphatase 111, C-Reactive Protein, Quantitative 7.8H, Pro-B-Type Natriuretic Peptide 9264H, Total Protein 4.4L, Albumin 0.9L, Globulin 3.5, Albumin/Globulin Ratio 0.3L Height (Feet): 5 Height (Inches): 5.00 Weight (Pounds): 187 General Appearance: lethargic, confused Abdomen: tender Samantha Head MD Jun 01, 2018 19:12
--- NOTE | 2018-06-01 19:26 | NUR ---
HAND-OFF: Report given to Lynsey AGUILA.
--- NOTE | 2018-06-01 19:30 | NUR ---
NURSE NOTES: Report received from MINGO Baldwin. Pt lethargic but arousable. Pt connected to bus monitor, SR with 1st degree AVB. Pt orally intubated ETT 7.5, 24 cm lip line, AC 16, TV 500, fiO2 40%, PEEP 5. Generalized 3+ edema noted. Abdominal dressing intact with 2 VELVET on left and right abdomen draining serous fluid. Right Donis cath on femoral noted and intact. Left subclavian connected to TPN 85.417 cc/hr and NS at TKO. Bilateral soft wrist restraints noted and intact, passive range of motioned performed. Safety measures in place with bed locked and in lowest position, side rails x3 up and bed alarm on. Rectal tube intact draining with greenish blackish stool. Contact isolation maintained and observed. Will continue to monitor and continue plan of care.
[2018-06-01] MEDS: TPN IV SCH (19:53)
[2018-06-01] MEDS: FAT EMULSION 20% IV SCH (19:53)
[2018-06-01] MEDS: Dyna-Hex 2% Top Sol 2oz TOPIC SCH (20:24)
[2018-06-01] MEDS: Nitroglycerin Patch 0.4mg TDERMAL SCH (20:25)
[2018-06-01] MEDS: Phytonadione 10 mg/mL 1ml amp SUBQ SCH (20:31)
--- NOTE | 2018-06-01 21:00 | NUR ---
NURSE NOTES: Patient with moaning, facial grimaces, HTN and restlessness. repositioned in bed, talk therapy provided not effective. Dilaudid 1ML IVP given effective. Will continue plan of care.
[2018-06-01] MEDS: HYDROmorphone 1mg/ml Carpuject IVP PRN (21:05)
--- NOTE | 2018-06-01 23:00 | NUR ---
NURSE NOTES: Patient in bed no moaning no facial grimaces. HOB elevated. No s/s of hypo/hyperglycemia. Continue on TPN at 85.417cc/hr. Rectal tube intact draining.. Will continue plan of acre.
[2018-06-02] VITALS (24 sets, daily range): BP systolic 93–152; BP diastolic 21–94
--- NOTE | 2018-06-02 00:07 | NUR ---
NURSE NOTES: Patient desat to 84-85% with Fi02 40%. Increase Fi02 to 60% Oxygen saturation increase to 94%. Will continue to monitor patient. Charge nurse aware.
--- NOTE | 2018-06-02 00:17 | NUR ---
Noticed skin breakdown on right ear. MINGO Menon notified and aware.
--- NOTE | 2018-06-02 00:20 | NUR ---
NURSE NOTES: Patient desat to 86-89% with Fi02 60%. Increase Fi02 to 80% Oxygen saturation increase to 100%. Will continue to monitor patient. also patient noted with right ear open skin, initial treatment done. Charge nurse aware. will continue to monitor patient.
[2018-06-02] MEDS: NovoLOG Insulin Flexpen SUBQ SCH ×6 (00:31→20:29)
[2018-06-02] MEDS: HYDROmorphone 1mg/ml Carpuject IVP PRN ×2 (00:33→05:04)
--- NOTE | 2018-06-02 00:37 | NUR ---
NURSE NOTES: Patient with moaning, facial grimaces, and restlessness. repositioned in bed, talk therapy provided not effective. Dilaudid 1ML IVP given. Will continue plan of care.
--- NOTE | 2018-06-02 01:17 | NUR ---
Changed anchor fast and found skin break down above lip area, and on lips and underneath the lips as well. Skin break down also present on left cheek. MINGO Menon notified and aware. Pictures were taken. Likely fast was changed to new one.
--- NOTE | 2018-06-02 02:37 | NUR ---
NURSE NOTES: Bed bath given tolerated well. Oral care provided. Wound care done. On SPR mattress for wound management. Comfort measure provided. Will continue plan of care.
--- NOTE | 2018-06-02 05:07 | NUR ---
NURSE NOTES: Patient with moaning, facial grimaces, and restlessness. repositioned in bed, talk therapy provided not effective. Dilaudid 1ML IVP given. Will continue plan of care.
--- NOTE | 2018-06-02 05:18 | NUR ---
Pt remains stable on current noted vent settings. New inline Sx in place. Pt was Sx as needed. Skin breakdown on ear, lips and cheek reported to MINGO Menon and pictures taken. Murphy fast hanged and skin barrier ointment applied on lip area. HOB is elevated. Alarms are set and audible.
[2018-06-02 05:59] LABS: ALANINE AMINOTRANSFERASE 9 U/L (12-78); ALBUMIN/GLOBULIN RATIO 0.3 (1.0-2.7); ALKALINE PHOSPHATASE 129 U/L (46-116); ANION GAP 14 mmol/L (5-15); ASPARTATE AMINO TRANSFERASE 29 U/L (15-37); BILIRUBIN,TOTAL 0.4 MG/DL (0.2-1.0); BLOOD UREA NITROGEN 108 mg/dL (7-18); CARBON DIOXIDE 23 MMOL/L (21-32); CHLORIDE 103 MMOL/L (98-107); CREATININE 4.8 MG/DL (0.55-1.30); POTASSIUM 3.6 MMOL/L (3.5-5.1); SODIUM 140 MMOL/L (136-145)
[2018-06-02 06:17] LABS: HEMATOCRIT 28.1 % (42.0-52.0); HEMOGLOBIN 9.3 G/DL (14.2-18.0); MEAN CORPUSCULAR VOLUME 88 FL (80-99); PLATELET COUNT 109 K/UL (150-450); RED BLOOD COUNT 3.18 M/UL (4.70-6.10); RED CELL DISTRIBUTION WIDTH 15.1 % (11.6-14.8); WHITE BLOOD COUNT 18.3 K/UL (4.8-10.8)
[2018-06-02 06:21] LABS: PHOSPHORUS 5.7 MG/DL (2.5-4.9)
--- NOTE | 2018-06-02 06:42 | NUR ---
RESPIRATORY NOTE: Patient received mechanically ventilated on PB840 with current ordered vent settings. Patient is orally intubated with a 7.5 with 24cm at the lip and is secured with an anchor fast. Patient presents with bilateral Rales breath sounds upon auscultation. Small, thick, yellow and bloody secretions were suctioned via inline suction system without incident. There is an ambu bag available at the beside and the vent is connected to a red outlet. Vent alarms are functional and audible. Will continue to monitor.
--- NOTE | 2018-06-02 07:25 | NUR ---
HAND-OFF: Report given to Berta AGUILA.
--- NOTE | 2018-06-02 07:35 | NUR ---
NURSE NOTES: Patient received from MINGO Menon. Patient observed bedside to be open eyes but not track however, patient did not respond to pain stimulus. Patient did not appear in any acute distress. Patient is being monitored on the monitor and storage bin tender VS 94/71, HR 79, RR 21 SPO2 100%. Patient is mechanically ventilated AC 16, TV 500, FIO2 60% PEEP 5. Oral care was performed. Upon auscultation, rhonchi and rales were heard BL and diminished breath sounds are heard on lower left. Patient has TPN running at 85.417 for nutrition. Patient has a rectal tube draining green liquid stool to gravity. Patient is anuric. Patient has RFem HD Baljeet Catheter that is patent and asymptomatic as well as a LSC TLC running the TPN. Patient is very edematous and has HD planned for today. Patient has R ear DTI, L cheek open wound from the anchor, upper lip wound from the anchor and a sacral wound with dressing that are dry and intact. Patient has restraints at this time for safety due to impulsivity, pulses are palpable and skin is intact. Will monitor for dc of restraints. Safety measures are in place with bed locked in the lowest position, side rails up x 3. Will continue to monitor and follow plan of care.
--- NOTE | 2018-06-02 07:35 | NUR ---
NURSE NOTES: Luz Elena Addendum: 06/02/18 at 1531 by ZHANNA AWAN RN Entry error
[2018-06-02] MEDS: Pantoprazole Inj IVP SCH ×2 (08:44→20:26)
[2018-06-02] MEDS: Hydrocortisone 100mg Inj IV SCH ×2 (08:44→20:27)
[2018-06-02] MEDS: Levemir Flexpen SUBQ SCH ×2 (08:49→20:28)
--- NOTE | 2018-06-02 09:07 | Infectious Diseases Prog Note ---
Assessment/Plan Assessment/Plan A: 1. serratia , Enterobacter sepsis with shock 2. VRE colonization 3. diabetes mellitus 4. hypertension 5. 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 leucocytosis 6. A fib with RVR 7. Small bowel perforation 8. Perioperative respiratory failure 9. Atelectasis versus Pneumonia 10 Peritonitis with Citrobacter & Serratia 11. sepsis, septic shock 12. Lactic acidosis 13. Anemia 14. Anastomosis leak 15. Hypokalemia P 1. continue Cefepime , Flagyl , Levaquin & Fluconazole 2.Continue TPN 3. F/U CXR Subjective ROS Limited/Unobtainable: Yes Neurologic: Reports: other - less responsive today Allergies: Coded Allergies: No Known Allergies (Unverified , 11/12/12) Objective Vital Signs Last 24 Hour Vital Signs Date Time Temp Pulse Resp B/P (MAP) Pulse Ox O2 Delivery O2 Flow Rate FiO2 06/02/18 08:32 78 21 60 06/02/18 08:00 80 06/02/18 08:00 Mechanical Ventilator Endotracheal Tube Mechanical Ventilator 06/02/18 07:00 79 16 98/45 (62) 100 06/02/18 06:37 77 20 60 06/02/18 06:00 75 16 108/43 (64) 100 06/02/18 05:34 97.7 06/02/18 05:17 79 18 60 06/02/18 05:00 80 17 128/49 (75) 100 06/02/18 04:00 Mechanical Ventilator Endotracheal Tube Mechanical Ventilator 06/02/18 04:00 82 06/02/18 04:00 97.7 81 16 142/57 (85) 100 06/02/18 03:49 81 25 60 06/02/18 03:00 80 17 129/62 (84) 100 06/02/18 02:00 82 17 130/60 (83) 100 06/02/18 01:00 81 17 116/53 (74) 100 06/02/18 00:52 78 21 40 06/02/18 00:20 80 06/02/18 00:00 Mechanical Ventilator Endotracheal Tube Mechanical Ventilator 06/02/18 00:00 60 06/02/18 00:00 97.7 86 16 145/58 (87) 100 06/01/18 23:10 88 29 40 06/01/18 23:00 88 16 135/58 (83) 100 06/01/18 22:00 80 16 132/61 (84) 99 06/01/18 21:23 88 29 40 06/01/18 21:00 90 16 128/55 (79) 99 06/01/18 20:25 158/95 06/01/18 20:00 Mechanical Ventilator Endotracheal Tube Mechanical Ventilator 06/01/18 20:00 91 06/01/18 20:00 98.9 91 16 174/72 (106) 99 06/01/18 20:00 40 06/01/18 19:23 94 29 40 06/01/18 19:00 90 16 158/95 (116) 99 06/01/18 18:00 87 27 162/67 (98) 100 06/01/18 17:19 88 27 40 06/01/18 17:00 98.5 88 22 177/70 (105) 100 06/01/18 16:00 40 06/01/18 16:00 Mechanical Ventilator Endotracheal Tube Mechanical Ventilator 06/01/18 16:00 87 06/01/18 16:00 86 23 159/65 (96) 100 06/01/18 15:25 90 27 40 06/01/18 15:00 92 25 150/63 (92) 100 06/01/18 14:28 152/66 06/01/18 13:57 92 24 152/66 (94) 100 06/01/18 13:00 98 26 146/83 (104) 100 06/01/18 12:41 82 27 40 06/01/18 12:00 92 06/01/18 12:00 Mechanical Ventilator Endotracheal Tube Mechanical Ventilator 06/01/18 12:00 40 06/01/18 12:00 80 23 125/67 (86) 98 06/01/18 11:25 88 24 40 06/01/18 11:00 98.0 92 29 128/49 (75) 98 06/01/18 10:49 95 26 40 06/01/18 10:00 86 19 135/54 (81) 99 06/01/18 09:10 89 29 40 Height (Feet): 5 Height (Inches): 5.00 Weight (Pounds): 187 HEENT: other - orally intubated Respiratory/Chest: other - on ventilator, few rhonchi Cardiovascular: normal rate, other - left sublavian line, R femoral line Abdomen: other - soft, lower quadrant drains, rectal tube Extremities: other - generalized edema Neurologic/Psychiatric: unresponsiveness Laboratory Tests Test 06/02/18 04:00 White Blood Count 18.3 K/UL (4.8-10.8) H Red Blood Count 3.18 M/UL (4.70-6.10) L Hemoglobin 9.3 G/DL (14.2-18.0) #L Hematocrit 28.1 % (42.0-52.0) #L Mean Corpuscular Volume 88 FL (80-99) Mean Corpuscular Hemoglobin 29.3 PG (27.0-31.0) Mean Corpuscular Hemoglobin Concent 33.1 G/DL (32.0-36.0) Red Cell Distribution Width 15.1 % (11.6-14.8) H Platelet Count 109 K/UL (150-450) L Mean Platelet Volume 8.8 FL (6.5-10.1) Neutrophils (%) (Auto) % (45.0-75.0) Lymphocytes (%) (Auto) % (20.0-45.0) Monocytes (%) (Auto) % (1.0-10.0) Eosinophils (%) (Auto) % (0.0-3.0) Basophils (%) (Auto) % (0.0-2.0) Differential Total Cells Counted 100 Neutrophils % (Manual) 98 % (45-75) H Lymphocytes % (Manual) 1 % (20-45) L Monocytes % (Manual) 1 % (1-10) Eosinophils % (Manual) 0 % (0-3) Basophils % (Manual) 0 % (0-2) Band Neutrophils 0 % (0-8) Platelet Estimate Decreased L Platelet Morphology Normal Hypochromasia 1+ Anisocytosis 1+ Sodium Level 140 MMOL/L (136-145) Potassium Level 3.6 MMOL/L (3.5-5.1) Chloride Level 103 MMOL/L (98-107) Carbon Dioxide Level 23 MMOL/L (21-32) Anion Gap 14 mmol/L (5-15) Blood Urea Nitrogen 108 mg/dL (7-18) H Creatinine 4.8 MG/DL (0.55-1.30) H Estimat Glomerular Filtration Rate mL/min (>60) Glucose Level 115 MG/DL (74-106) H Calcium Level 8.0 MG/DL (8.5-10.1) L Phosphorus Level 5.7 MG/DL (2.5-4.9) H Magnesium Level 3.2 MG/DL (1.8-2.4) H Total Bilirubin 0.4 MG/DL (0.2-1.0) Aspartate Amino Transf (AST/SGOT) 29 U/L (15-37) Alanine Aminotransferase (ALT/SGPT) 9 U/L (12-78) L Alkaline Phosphatase 129 U/L (46-116) H C-Reactive Protein, Quantitative 9.3 mg/dL (0.00-0.90) H Pro-B-Type Natriuretic Peptide 8791 pg/mL (0-125) H Total Protein 4.7 G/DL (6.4-8.2) L Albumin 1.0 G/DL (3.4-5.0) L Globulin 3.7 g/dL Albumin/Globulin Ratio 0.3 (1.0-2.7) L Digoxin Level 0.5 NG/ML (0.5-2.0) Current Medications Medications (Trade) Dose Ordered Sig/Min Route PRN Reason Start Time Stop Time Status Last Admin Dose Admin Acetaminophen (Tylenol) 650 mg Q4H PRN RECTAL Mild Pain/Temp > 100.5 05/21/18 12:00 06/20/18 11:59 Cefepime HCl 2 gm/ Dextrose 55 ml @ 110 mls/hr Q24H IVPB 05/25/18 13:00 06/07/18 12:59 06/01/18 13:45 Chlorhexidine Gluconate (Tatyana-Hex 2%) 1 applic DAILY@2000 TOPIC 05/12/18 20:00 06/11/18 19:59 06/01/18 20:24 Dextrose 1,000 ml @ 0 mls/hr Q24H PRN IV PN interrupted or unavailable 05/25/18 21:00 06/24/18 20:59 Dextrose (Dextrose 50%) 25 ml Q30M PRN IV Hypoglycemia 05/26/18 12:45 06/25/18 12:44 Dextrose (Dextrose 50%) 50 ml Q30M PRN IV Hypoglycemia 05/26/18 12:45 06/25/18 12:44 05/31/18 21:12 Digoxin (Lanoxin) 0.125 mg 3XW IVP 06/03/18 09:00 07/03/18 08:59 Epoetin Bret (Procrit (for ESRD on dialysis)) 10,000 units SUBQ 06/03/18 21:00 06/30/18 20:59 Fat Emulsion Intravenous 250 ml/Amino Acids/ Electrolytes/ Dextrose 2,050 ml @ 85.417 mls/ hr Q24H IV 06/01/18 20:00 07/01/18 19:59 06/01/18 19:53 Fluconazole/ Sodium Chloride 100 ml @ 100 mls/hr Q24H IV 05/28/18 18:00 06/04/18 17:59 06/01/18 17:11 Hydrocortisone (Solu-CORTEF) 25 mg Q12HR IV 06/01/18 21:00 07/01/18 20:59 06/02/18 08:44 Hydromorphone HCl (Dilaudid) 1 mg Q2H PRN IVP Severe Pain (Pain Scale 7-10) 05/31/18 10:00 06/05/18 09:59 06/02/18 05:04 Insulin Aspart (NovoLOG) EVERY 4 HOURS SUBQ 05/24/18 17:00 06/15/18 20:59 06/02/18 05:08 Insulin Detemir (Levemir) 20 units Q12HR SUBQ 05/27/18 09:00 06/23/18 17:59 06/01/18 20:34 Levofloxacin 50 ml @ 50 mls/hr Q24H IVPB 05/25/18 13:00 06/07/18 12:59 06/01/18 13:45 Metronidazole 100 ml @ 100 mls/hr Q8HR IVPB 05/25/18 14:00 06/07/18 13:59 06/02/18 06:00 Nitroglycerin (Ntg) 1 patch Q24H TDERMAL 05/29/18 20:00 06/28/18 19:59 06/01/18 20:25 Norepinephrine Bitartrate 8 mg/ Dextrose 500 ml @ 0 mls/hr Q24H IV 05/21/18 14:30 06/20/18 14:29 05/27/18 14:30 Ondansetron HCl (Zofran) 4 mg Q6H PRN IVP Nausea & Vomiting 05/15/18 23:30 06/14/18 23:29 Pantoprazole (Protonix) 40 mg EVERY 12 HOURS IVP 05/12/18 21:00 06/10/18 20:59 06/02/18 08:44 Phytonadione (Vitamin K) 10 mg ONCE A WEEK SUBQ 05/25/18 21:00 06/24/18 20:59 06/01/18 20:31 Vasopressin 100 units/Sodium Chloride 100 ml @ 0 mls/hr Q24H IV 05/22/18 11:30 06/21/18 11:29 05/23/18 17:47 Romie Hooks MD Jun 02, 2018 09:07
--- NOTE | 2018-06-02 09:09 | General Progress Note ---
Progress Note Progress Note drains serous L>R output wbc 18k midline dressing changes okay sedated from dilaudid given earlier prognosis guarded cont current care unable to wean to extubate at this time. Tomas Chandler Jun 02, 2018 09:09
--- NOTE | 2018-06-02 10:00 | NUR ---
NURSE NOTES: Patient was cleaned and repositioned. VSS. Will continue to monitor. Awaiting HD
[2018-06-02] MEDS: Vasopressin 100 UNITS in NS 95 ML IV SCH (11:30)
--- NOTE | 2018-06-02 12:25 | Cardiac Electrophysiology PN ---
Assessment/Plan Assessment/Plan 1. Atrial fib/flutter with RVR In SR. Amio drip DCed for bradycardia. In SR Can't switch to po as NPO Dig level 0.5 today On dig 0.125 mg iv MWF. 2. Chest pain. No OR.Troponin leak due to renal failure and nonspecific EKG showed old inferior and anterior wall OR, but no ischemia. ECHO normal LV function 3. End-stage renal disease, on hemodialysis per Dr. Arroyo. 4. Septic shock, off Levophed 2D Echo EF 60% and PA pressure 63 ? PE. DD 35.2. Unstable for chest CT angio. Off heparin drip for surgery 5. Hx of lap matthew. S/P SB resection 05/15/18 with drain S/P redo surgery 05/23/18 that showed Anastomotic leak. S/P surgery again by Dr. Chandler 05/27/18 On TPN and Abx 6. Respiratory failure, reintubated on the vent. Doing poorly. Dr Jones at bedside 7. History of kidney stones. 8. History of psychiatric problems, dementia. DW RN and Dr Jones Subjective Subjective In ICU on the vent. Off Amiodarone drip due to bradycardia. Off pressors. In SR. Getting HD. Saturation is low despite being on Vent on 100% Fio2 Dr Jones and RN at bedside Objective Last 24 Hour Vital Signs Date Time Temp Pulse Resp B/P (MAP) Pulse Ox O2 Delivery O2 Flow Rate FiO2 06/02/18 11:32 100 06/02/18 11:21 76 25 60 06/02/18 10:00 78 23 96/71 (79) 98 06/02/18 09:00 98.1 82 23 106/26 (52) 100 06/02/18 08:32 78 21 60 06/02/18 08:00 80 06/02/18 08:00 Mechanical Ventilator Endotracheal Tube Mechanical Ventilator 06/02/18 08:00 78 21 113/39 (63) 100 06/02/18 08:00 80 06/02/18 07:00 79 16 98/45 (62) 100 06/02/18 06:37 77 20 60 06/02/18 06:00 75 16 108/43 (64) 100 06/02/18 05:34 97.7 06/02/18 05:17 79 18 60 06/02/18 05:00 80 17 128/49 (75) 100 06/02/18 04:00 Mechanical Ventilator Endotracheal Tube Mechanical Ventilator 06/02/18 04:00 82 06/02/18 04:00 97.7 81 16 142/57 (85) 100 06/02/18 03:49 81 25 60 06/02/18 03:00 80 17 129/62 (84) 100 06/02/18 02:00 82 17 130/60 (83) 100 06/02/18 01:00 81 17 116/53 (74) 100 06/02/18 00:52 78 21 40 06/02/18 00:20 80 06/02/18 00:00 Mechanical Ventilator Endotracheal Tube Mechanical Ventilator 06/02/18 00:00 60 06/02/18 00:00 97.7 86 16 145/58 (87) 100 06/01/18 23:10 88 29 40 06/01/18 23:00 88 16 135/58 (83) 100 06/01/18 22:00 80 16 132/61 (84) 99 06/01/18 21:23 88 29 40 06/01/18 21:00 90 16 128/55 (79) 99 06/01/18 20:25 158/95 06/01/18 20:00 Mechanical Ventilator Endotracheal Tube Mechanical Ventilator 06/01/18 20:00 91 06/01/18 20:00 98.9 91 16 174/72 (106) 99 06/01/18 20:00 40 06/01/18 19:23 94 29 40 06/01/18 19:00 90 16 158/95 (116) 99 06/01/18 18:00 87 27 162/67 (98) 100 06/01/18 17:19 88 27 40 06/01/18 17:00 98.5 88 22 177/70 (105) 100 06/01/18 16:00 40 06/01/18 16:00 Mechanical Ventilator Endotracheal Tube Mechanical Ventilator 06/01/18 16:00 87 06/01/18 16:00 86 23 159/65 (96) 100 06/01/18 15:25 90 27 40 06/01/18 15:00 92 25 150/63 (92) 100 06/01/18 14:28 152/66 06/01/18 13:57 92 24 152/66 (94) 100 06/01/18 13:00 98 26 146/83 (104) 100 06/01/18 12:41 82 27 40 Intake and Output 06/01/18 06/02/18 19:00 07:00 Intake Total 1030.336 ml 1149.552 ml Output Total 213 ml 450 ml Balance 817.336 ml 699.552 ml IV Total 1030.336 ml 1149.552 ml Output Urine Total 22 ml Stool Total 1 ml 300 ml Drainage Total 190 ml 150 ml # Bowel Movements 11 3 Laboratory Tests Test 06/02/18 04:00 06/02/18 11:53 White Blood Count 18.3 K/UL (4.8-10.8) H Red Blood Count 3.18 M/UL (4.70-6.10) L Hemoglobin 9.3 G/DL (14.2-18.0) #L Hematocrit 28.1 % (42.0-52.0) #L Mean Corpuscular Volume 88 FL (80-99) Mean Corpuscular Hemoglobin 29.3 PG (27.0-31.0) Mean Corpuscular Hemoglobin Concent 33.1 G/DL (32.0-36.0) Red Cell Distribution Width 15.1 % (11.6-14.8) H Platelet Count 109 K/UL (150-450) L Mean Platelet Volume 8.8 FL (6.5-10.1) Neutrophils (%) (Auto) % (45.0-75.0) Lymphocytes (%) (Auto) % (20.0-45.0) Monocytes (%) (Auto) % (1.0-10.0) Eosinophils (%) (Auto) % (0.0-3.0) Basophils (%) (Auto) % (0.0-2.0) Differential Total Cells Counted 100 Neutrophils % (Manual) 98 % (45-75) H Lymphocytes % (Manual) 1 % (20-45) L Monocytes % (Manual) 1 % (1-10) Eosinophils % (Manual) 0 % (0-3) Basophils % (Manual) 0 % (0-2) Band Neutrophils 0 % (0-8) Platelet Estimate Decreased L Platelet Morphology Normal Hypochromasia 1+ Anisocytosis 1+ Sodium Level 140 MMOL/L (136-145) Potassium Level 3.6 MMOL/L (3.5-5.1) Chloride Level 103 MMOL/L (98-107) Carbon Dioxide Level 23 MMOL/L (21-32) Anion Gap 14 mmol/L (5-15) Blood Urea Nitrogen 108 mg/dL (7-18) H Creatinine 4.8 MG/DL (0.55-1.30) H Estimat Glomerular Filtration Rate mL/min (>60) Glucose Level 115 MG/DL (74-106) H Calcium Level 8.0 MG/DL (8.5-10.1) L Phosphorus Level 5.7 MG/DL (2.5-4.9) H Magnesium Level 3.2 MG/DL (1.8-2.4) H Total Bilirubin 0.4 MG/DL (0.2-1.0) Aspartate Amino Transf (AST/SGOT) 29 U/L (15-37) Alanine Aminotransferase (ALT/SGPT) 9 U/L (12-78) L Alkaline Phosphatase 129 U/L (46-116) H C-Reactive Protein, Quantitative 9.3 mg/dL (0.00-0.90) H Pro-B-Type Natriuretic Peptide 8791 pg/mL (0-125) H Total Protein 4.7 G/DL (6.4-8.2) L Albumin 1.0 G/DL (3.4-5.0) L Globulin 3.7 g/dL Albumin/Globulin Ratio 0.3 (1.0-2.7) L Digoxin Level 0.5 NG/ML (0.5-2.0) Arterial Blood pH 7.310 (7.350-7.450) Arterial Blood Partial Pressure CO2 50.7 mmHg (35.0-45.0) H Arterial Blood Partial Pressure O2 50.7 mmHg (75.0-100.0) L Arterial Blood HCO3 25.0 mmol/L (22.0-26.0) Arterial Blood Oxygen Saturation 84.0 % (95-100) *L Arterial Blood Base Excess -1.5 (-2-2) Luiz Test Positive Microbiology Date/Time Source Procedure Growth Status 06/01/18 17:00 Stool Clostridium difficile Toxin Assay - Final Complete Objective HEENT: Orally intubated Cardiovascular: Sinus tachycardia Respiratory/Chest: Coarse rhonchi Abdomen: Post op with 2 VELVET drain Extremities: 1 plus edema. Right groin dialysis catheter Toluie,Everett MD Jun 02, 2018 12:25
--- NOTE | 2018-06-02 12:27 | General Progress Note ---
Assessment/Plan Problem List: (1) Perforated viscus ICD Codes: R19.8 - Other specified symptoms and signs involving the digestive system and abdomen SNOMED: 64322978, 573473752, 913637885 (2) ESRD (end stage renal disease) on dialysis ICD Codes: N18.6 - End stage renal disease; Z99.2 - Dependence on renal dialysis SNOMED: 412379676 (3) Shock ICD Codes: R57.9 - Shock, unspecified SNOMED: 10499226 (4) Diabetes mellitus out of control ICD Codes: E11.65 - Type 2 diabetes mellitus with hyperglycemia SNOMED: 35644118, 598051730 Assessment/Plan continue BG monitoring and Novolog sliding scale every 4 hours continue Levemir 20 units bid Subjective ROS Limited/Unobtainable: Yes Allergies: Coded Allergies: No Known Allergies (Unverified , 11/12/12) Subjective events noted intubated on TPN Objective Last 24 Hour Vital Signs Date Time Temp Pulse Resp B/P (MAP) Pulse Ox O2 Delivery O2 Flow Rate FiO2 06/02/18 11:32 100 06/02/18 11:21 76 25 60 06/02/18 10:00 78 23 96/71 (79) 98 06/02/18 09:00 98.1 82 23 106/26 (52) 100 06/02/18 08:32 78 21 60 06/02/18 08:00 80 06/02/18 08:00 Mechanical Ventilator Endotracheal Tube Mechanical Ventilator 06/02/18 08:00 78 21 113/39 (63) 100 06/02/18 08:00 80 06/02/18 07:00 79 16 98/45 (62) 100 06/02/18 06:37 77 20 60 06/02/18 06:00 75 16 108/43 (64) 100 06/02/18 05:34 97.7 06/02/18 05:17 79 18 60 06/02/18 05:00 80 17 128/49 (75) 100 06/02/18 04:00 Mechanical Ventilator Endotracheal Tube Mechanical Ventilator 06/02/18 04:00 82 06/02/18 04:00 97.7 81 16 142/57 (85) 100 06/02/18 03:49 81 25 60 06/02/18 03:00 80 17 129/62 (84) 100 06/02/18 02:00 82 17 130/60 (83) 100 06/02/18 01:00 81 17 116/53 (74) 100 06/02/18 00:52 78 21 40 06/02/18 00:20 80 06/02/18 00:00 Mechanical Ventilator Endotracheal Tube Mechanical Ventilator 06/02/18 00:00 60 06/02/18 00:00 97.7 86 16 145/58 (87) 100 06/01/18 23:10 88 29 40 06/01/18 23:00 88 16 135/58 (83) 100 06/01/18 22:00 80 16 132/61 (84) 99 06/01/18 21:23 88 29 40 06/01/18 21:00 90 16 128/55 (79) 99 06/01/18 20:25 158/95 06/01/18 20:00 Mechanical Ventilator Endotracheal Tube Mechanical Ventilator 06/01/18 20:00 91 06/01/18 20:00 98.9 91 16 174/72 (106) 99 06/01/18 20:00 40 06/01/18 19:23 94 29 40 06/01/18 19:00 90 16 158/95 (116) 99 06/01/18 18:00 87 27 162/67 (98) 100 06/01/18 17:19 88 27 40 06/01/18 17:00 98.5 88 22 177/70 (105) 100 06/01/18 16:00 40 06/01/18 16:00 Mechanical Ventilator Endotracheal Tube Mechanical Ventilator 06/01/18 16:00 87 06/01/18 16:00 86 23 159/65 (96) 100 06/01/18 15:25 90 27 40 06/01/18 15:00 92 25 150/63 (92) 100 06/01/18 14:28 152/66 06/01/18 13:57 92 24 152/66 (94) 100 06/01/18 13:00 98 26 146/83 (104) 100 06/01/18 12:41 82 27 40 Intake and Output 06/01/18 06/02/18 19:00 07:00 Intake Total 1030.336 ml 1149.552 ml Output Total 213 ml 450 ml Balance 817.336 ml 699.552 ml IV Total 1030.336 ml 1149.552 ml Output Urine Total 22 ml Stool Total 1 ml 300 ml Drainage Total 190 ml 150 ml # Bowel Movements 11 3 Laboratory Tests 06/02/18 04:00: White Blood Count 18.3H, Red Blood Count 3.18L, Hemoglobin 9.3#L, Hematocrit 28.1#L, Mean Corpuscular Volume 88, Mean Corpuscular Hemoglobin 29.3, Mean Corpuscular Hemoglobin Concent 33.1, Red Cell Distribution Width 15.1H, Platelet Count 109L, Mean Platelet Volume 8.8, Neutrophils (%) (Auto) , Lymphocytes (%) (Auto) , Monocytes (%) (Auto) , Eosinophils (%) (Auto) , Basophils (%) (Auto) , Differential Total Cells Counted 100, Neutrophils % ( Manual) 98H, Lymphocytes % (Manual) 1L, Monocytes % (Manual) 1, Eosinophils % ( Manual) 0, Basophils % (Manual) 0, Band Neutrophils 0, Platelet Estimate DecreasedL, Platelet Morphology Normal, Hypochromasia 1+, Anisocytosis 1+, Sodium Level 140, Potassium Level 3.6, Chloride Level 103, Carbon Dioxide Level 23, Anion Gap 14, Blood Urea Nitrogen 108H, Creatinine 4.8H, Estimat Glomerular Filtration Rate , Glucose Level 115H, Calcium Level 8.0L, Phosphorus Level 5.7H , Magnesium Level 3.2H, Total Bilirubin 0.4, Aspartate Amino Transf (AST/SGOT) 29, Alanine Aminotransferase (ALT/SGPT) 9L, Alkaline Phosphatase 129H, C- Reactive Protein, Quantitative 9.3H, Pro-B-Type Natriuretic Peptide 8791H, Total Protein 4.7L, Albumin 1.0L, Globulin 3.7, Albumin/Globulin Ratio 0.3L, Digoxin Level 0.5 06/02/18 11:53: Arterial Blood pH 7.310L, Arterial Blood Partial Pressure CO2 50.7H, Arterial Blood Partial Pressure O2 50.7L, Arterial Blood HCO3 25.0, Arterial Blood Oxygen Saturation 84.0*L, Arterial Blood Base Excess -1.5, Luiz Test Positive Height (Feet): 5 Height (Inches): 5.00 Weight (Pounds): 187 General Appearance: severe distress EENT: other - ETT Neck: normal alignment Cardiovascular: normal rate Respiratory/Chest: lungs clear Abdomen: hypoactive bowel sounds Edema: 2+ Arm (L), 2+ Arm (R), 2+ Leg (L), 2+ Leg (R), 2+ Pedal (L), 2+ Pedal ( R), 2+ Generalized Objective Current Medications Medications (Trade) Dose Ordered Sig/Min Route PRN Reason Start Time Stop Time Status Last Admin Dose Admin Acetaminophen (Tylenol) 650 mg Q4H PRN RECTAL Mild Pain/Temp > 100.5 05/21/18 12:00 06/20/18 11:59 Cefepime HCl 2 gm/ Dextrose 55 ml @ 110 mls/hr Q24H IVPB 05/25/18 13:00 06/07/18 12:59 06/01/18 13:45 Chlorhexidine Gluconate (Tatyana-Hex 2%) 1 applic DAILY@2000 TOPIC 05/12/18 20:00 06/11/18 19:59 06/01/18 20:24 Dextrose 1,000 ml @ 0 mls/hr Q24H PRN IV PN interrupted or unavailable 05/25/18 21:00 06/24/18 20:59 Dextrose (Dextrose 50%) 25 ml Q30M PRN IV Hypoglycemia 05/26/18 12:45 06/25/18 12:44 Dextrose (Dextrose 50%) 50 ml Q30M PRN IV Hypoglycemia 05/26/18 12:45 06/25/18 12:44 05/31/18 21:12 Digoxin (Lanoxin) 0.125 mg 3XW IVP 06/03/18 09:00 07/03/18 08:59 Epoetin Bret (Procrit (for ESRD on dialysis)) 10,000 units SUN-SUN-SUN SUBQ 06/03/18 21:00 06/30/18 20:59 Fat Emulsion Intravenous 250 ml/Amino Acids/ Electrolytes/ Dextrose 2,050 ml @ 85.417 mls/ hr Q24H IV 06/01/18 20:00 07/01/18 19:59 06/01/18 19:53 Fluconazole/ Sodium Chloride 100 ml @ 100 mls/hr Q24H IV 05/28/18 18:00 06/04/18 17:59 06/01/18 17:11 Hydrocortisone (Solu-CORTEF) 25 mg Q12HR IV 06/01/18 21:00 07/01/18 20:59 06/02/18 08:44 Hydromorphone HCl (Dilaudid) 1 mg Q2H PRN IVP Severe Pain (Pain Scale 7-10) 05/31/18 10:00 06/05/18 09:59 06/02/18 05:04 Insulin Aspart (NovoLOG) EVERY 4 HOURS SUBQ 05/24/18 17:00 06/15/18 20:59 06/02/18 05:08 Insulin Detemir (Levemir) 20 units Q12HR SUBQ 05/27/18 09:00 06/23/18 17:59 06/01/18 20:34 Levofloxacin 50 ml @ 50 mls/hr Q24H IVPB 05/25/18 13:00 06/07/18 12:59 06/01/18 13:45 Metronidazole 100 ml @ 100 mls/hr Q8HR IVPB 05/25/18 14:00 06/07/18 13:59 06/02/18 06:00 Nitroglycerin (Ntg) 1 patch Q24H TDERMAL 05/29/18 20:00 06/28/18 19:59 06/01/18 20:25 Norepinephrine Bitartrate 8 mg/ Dextrose 500 ml @ 0 mls/hr Q24H IV 05/21/18 14:30 06/20/18 14:29 05/27/18 14:30 Ondansetron HCl (Zofran) 4 mg Q6H PRN IVP Nausea & Vomiting 05/15/18 23:30 06/14/18 23:29 Pantoprazole (Protonix) 40 mg EVERY 12 HOURS IVP 05/12/18 21:00 06/10/18 20:59 06/02/18 08:44 Phytonadione (Vitamin K) 10 mg ONCE A WEEK SUBQ 05/25/18 21:00 06/24/18 20:59 06/01/18 20:31 Vasopressin 100 units/Sodium Chloride 100 ml @ 0 mls/hr Q24H IV 05/22/18 11:30 06/21/18 11:29 05/23/18 17:47 Item Value Date Time Bedside Blood Glucose 95 mg/dl 06/02/18 0849 Bedside Blood Glucose 121 mg/dl H 06/02/18 0508 Bedside Blood Glucose 114 mg/dl 06/02/18 0031 Bedside Blood Glucose 123 mg/dl H 1/12/19 2034 Bedside Blood Glucose 138 mg/dl H 06/01/18 1623 Rashad Koenig MD Jun 02, 2018 12:27
--- NOTE | 2018-06-02 12:37 | Pulmonolgy Critical Care Note ---
Critical Care - Asmt/Plan Problems: (1) Shock (2) Hypoxemia (3) Elevated d-dimer Assessment & Plan: S/P neg CT-A + UE DVT (4) Hypotension (5) Atrial fibrillation (6) ESRD (end stage renal disease) on dialysis (7) ACS (acute coronary syndrome) (8) Sacral decubitus ulcer, stage III (9) S/P cholecystectomy (10) Serratia sepsis (11) S/P exploratory laparotomy (12) Perforated viscus (13) Thrombocythemia Assessment/Plan: -VENT ADJUSTED BY ME @ BEDSIDE ---> now on AC 20 PC delta P 25 100/10 ---> ABG in 2 hours -Tirate down FiO2 and PEEP to keep SaO2 > 90% -CXR -Off NE -Continue HC 25 BID and taper -Continue current vent settings -HD per renal as able -[facility] held, start @ least Hep SQ when able -Monitor CBC, transfuse if Hb < 8 -Monitor for bleeding -Flucon, Flagyl and Cefepime per ID, F/U Cx's, monitor WCt -NPO , TPN, start TF's when ok with surgery -F/U surgery recs -FC D/W Dr. Hamm D/W RN and RT CCT 45 Critical Care - Objective Last 24 Hour Vital Signs Date Time Temp Pulse Resp B/P (MAP) Pulse Ox O2 Delivery O2 Flow Rate FiO2 06/02/18 11:32 100 06/02/18 11:21 76 25 60 06/02/18 10:00 78 23 96/71 (79) 98 06/02/18 09:00 98.1 82 23 106/26 (52) 100 06/02/18 08:32 78 21 60 06/02/18 08:00 80 06/02/18 08:00 Mechanical Ventilator Endotracheal Tube Mechanical Ventilator 06/02/18 08:00 78 21 113/39 (63) 100 06/02/18 08:00 80 06/02/18 07:00 79 16 98/45 (62) 100 06/02/18 06:37 77 20 60 06/02/18 06:00 75 16 108/43 (64) 100 06/02/18 05:34 97.7 06/02/18 05:17 79 18 60 06/02/18 05:00 80 17 128/49 (75) 100 06/02/18 04:00 Mechanical Ventilator Endotracheal Tube Mechanical Ventilator 06/02/18 04:00 82 06/02/18 04:00 97.7 81 16 142/57 (85) 100 06/02/18 03:49 81 25 60 06/02/18 03:00 80 17 129/62 (84) 100 06/02/18 02:00 82 17 130/60 (83) 100 06/02/18 01:00 81 17 116/53 (74) 100 06/02/18 00:52 78 21 40 06/02/18 00:20 80 06/02/18 00:00 Mechanical Ventilator Endotracheal Tube Mechanical Ventilator 06/02/18 00:00 60 06/02/18 00:00 97.7 86 16 145/58 (87) 100 06/01/18 23:10 88 29 40 06/01/18 23:00 88 16 135/58 (83) 100 06/01/18 22:00 80 16 132/61 (84) 99 06/01/18 21:23 88 29 40 06/01/18 21:00 90 16 128/55 (79) 99 06/01/18 20:25 158/95 06/01/18 20:00 Mechanical Ventilator Endotracheal Tube Mechanical Ventilator 06/01/18 20:00 91 06/01/18 20:00 98.9 91 16 174/72 (106) 99 06/01/18 20:00 40 06/01/18 19:23 94 29 40 06/01/18 19:00 90 16 158/95 (116) 99 06/01/18 18:00 87 27 162/67 (98) 100 06/01/18 17:19 88 27 40 06/01/18 17:00 98.5 88 22 177/70 (105) 100 06/01/18 16:00 40 06/01/18 16:00 Mechanical Ventilator Endotracheal Tube Mechanical Ventilator 06/01/18 16:00 87 06/01/18 16:00 86 23 159/65 (96) 100 06/01/18 15:25 90 27 40 06/01/18 15:00 92 25 150/63 (92) 100 06/01/18 14:28 152/66 06/01/18 13:57 92 24 152/66 (94) 100 06/01/18 13:00 98 26 146/83 (104) 100 06/01/18 12:41 82 27 40 Status: obtunded, other - on vent Condition: critical HEENT: atraumatic, normocephalic Neck: other - ETT Lungs: rhonchi Heart: HR/BP stable Abdomen: soft, non-tender, feeding tube, other - dressed VELVET Extremities: other - 1+ edema Decubiti: location - sacral, stage - DTI Micro: Microbiology Date/Time Source Procedure Growth Status 06/01/18 17:00 Stool Clostridium difficile Toxin Assay - Final Complete Accucheck: 95 Blood Sugars: BS controlled Critical Care - Subjective ROS Limited/Unobtainable: Yes ICU Day: 19 Intubation Day: 4 Interval Events: Inc O2 needs this am, had to be bagged, placed back on vent - changes made by me at bedside, now on AC PC delta P 25 RR 20 100/10 AFVSS, WCt better, HH stable S/P PRBC on TPN no sig secretion VELVET OP SS Condition: critical IV Access: central EKG Rhythm: Sinus Rhythm FI02: 100 Vent Support Breath Rate: 16 Vent Support Mode: AC Vent Tidal Volume: 500 Sputum Amount: Large PEEP: 5.0 PIP: 33 Secretions: Thick large Fluids: SLIV Drips: None Tube Feeding Amount: 0 I&O: Intake and Output 06/01/18 06/02/18 19:00 07:00 Intake Total 1030.336 ml 1149.552 ml Output Total 213 ml 450 ml Balance 817.336 ml 699.552 ml IV Total 1030.336 ml 1149.552 ml Output Urine Total 22 ml Stool Total 1 ml 300 ml Drainage Total 190 ml 150 ml # Bowel Movements 11 3 Subjective: CROW ET-Tube: 7.5 ET Position: 24 Labs: Laboratory Tests Test 06/02/18 04:00 06/02/18 11:53 White Blood Count 18.3 K/UL (4.8-10.8) H Red Blood Count 3.18 M/UL (4.70-6.10) L Hemoglobin 9.3 G/DL (14.2-18.0) #L Hematocrit 28.1 % (42.0-52.0) #L Mean Corpuscular Volume 88 FL (80-99) Mean Corpuscular Hemoglobin 29.3 PG (27.0-31.0) Mean Corpuscular Hemoglobin Concent 33.1 G/DL (32.0-36.0) Red Cell Distribution Width 15.1 % (11.6-14.8) H Platelet Count 109 K/UL (150-450) L Mean Platelet Volume 8.8 FL (6.5-10.1) Neutrophils (%) (Auto) % (45.0-75.0) Lymphocytes (%) (Auto) % (20.0-45.0) Monocytes (%) (Auto) % (1.0-10.0) Eosinophils (%) (Auto) % (0.0-3.0) Basophils (%) (Auto) % (0.0-2.0) Differential Total Cells Counted 100 Neutrophils % (Manual) 98 % (45-75) H Lymphocytes % (Manual) 1 % (20-45) L Monocytes % (Manual) 1 % (1-10) Eosinophils % (Manual) 0 % (0-3) Basophils % (Manual) 0 % (0-2) Band Neutrophils 0 % (0-8) Platelet Estimate Decreased L Platelet Morphology Normal Hypochromasia 1+ Anisocytosis 1+ Sodium Level 140 MMOL/L (136-145) Potassium Level 3.6 MMOL/L (3.5-5.1) Chloride Level 103 MMOL/L (98-107) Carbon Dioxide Level 23 MMOL/L (21-32) Anion Gap 14 mmol/L (5-15) Blood Urea Nitrogen 108 mg/dL (7-18) H Creatinine 4.8 MG/DL (0.55-1.30) H Estimat Glomerular Filtration Rate mL/min (>60) Glucose Level 115 MG/DL (74-106) H Calcium Level 8.0 MG/DL (8.5-10.1) L Phosphorus Level 5.7 MG/DL (2.5-4.9) H Magnesium Level 3.2 MG/DL (1.8-2.4) H Total Bilirubin 0.4 MG/DL (0.2-1.0) Aspartate Amino Transf (AST/SGOT) 29 U/L (15-37) Alanine Aminotransferase (ALT/SGPT) 9 U/L (12-78) L Alkaline Phosphatase 129 U/L (46-116) H C-Reactive Protein, Quantitative 9.3 mg/dL (0.00-0.90) H Pro-B-Type Natriuretic Peptide 8791 pg/mL (0-125) H Total Protein 4.7 G/DL (6.4-8.2) L Albumin 1.0 G/DL (3.4-5.0) L Globulin 3.7 g/dL Albumin/Globulin Ratio 0.3 (1.0-2.7) L Digoxin Level 0.5 NG/ML (0.5-2.0) Arterial Blood pH 7.310 (7.350-7.450) Arterial Blood Partial Pressure CO2 50.7 mmHg (35.0-45.0) H Arterial Blood Partial Pressure O2 50.7 mmHg (75.0-100.0) L Arterial Blood HCO3 25.0 mmol/L (22.0-26.0) Arterial Blood Oxygen Saturation 84.0 % (95-100) *L Arterial Blood Base Excess -1.5 (-2-2) Luiz Test Positive Daryl Jones MD Jun 02, 2018 12:37
--- NOTE | 2018-06-02 12:41 | General Progress Note ---
Assessment/Plan Assessment/Plan (1) Abdominal pain (2) S/p Lap Cholecystectomy (3) Encephalopathy /septic shock (4) ESRD on hemodialysis (5) S/p emergent exploratory laboratory small bowel resection omentectomy due to small bowel perforation in distal ileum Patient to be continued on Dilaudid and Tylenol. Parameters to be continued. D/w Dr. Busby and he concurred. Subjective Date patient seen: Jun 02, 2018 Time patient seen: 12:30 - pm Allergies: Coded Allergies: No Known Allergies (Unverified , 11/12/12) Subjective Patient is in bed and intubated on vent. Showing no signs of pain or distress. Has received 3 doses of Dilaudid in the last 24hrs. Objective Last 24 Hour Vital Signs Date Time Temp Pulse Resp B/P (MAP) Pulse Ox O2 Delivery O2 Flow Rate FiO2 06/02/18 11:32 100 06/02/18 11:21 76 25 60 06/02/18 10:00 78 23 96/71 (79) 98 06/02/18 09:00 98.1 82 23 106/26 (52) 100 06/02/18 08:32 78 21 60 06/02/18 08:00 80 06/02/18 08:00 Mechanical Ventilator Endotracheal Tube Mechanical Ventilator 06/02/18 08:00 78 21 113/39 (63) 100 06/02/18 08:00 80 06/02/18 07:00 79 16 98/45 (62) 100 06/02/18 06:37 77 20 60 06/02/18 06:00 75 16 108/43 (64) 100 06/02/18 05:34 97.7 06/02/18 05:17 79 18 60 06/02/18 05:00 80 17 128/49 (75) 100 06/02/18 04:00 Mechanical Ventilator Endotracheal Tube Mechanical Ventilator 06/02/18 04:00 82 06/02/18 04:00 97.7 81 16 142/57 (85) 100 06/02/18 03:49 81 25 60 06/02/18 03:00 80 17 129/62 (84) 100 06/02/18 02:00 82 17 130/60 (83) 100 06/02/18 01:00 81 17 116/53 (74) 100 06/02/18 00:52 78 21 40 06/02/18 00:20 80 1/13/19 00:00 Mechanical Ventilator Endotracheal Tube Mechanical Ventilator 06/02/18 00:00 60 06/02/18 00:00 97.7 86 16 145/58 (87) 100 06/01/18 23:10 88 29 40 06/01/18 23:00 88 16 135/58 (83) 100 06/01/18 22:00 80 16 132/61 (84) 99 06/01/18 21:23 88 29 40 06/01/18 21:00 90 16 128/55 (79) 99 06/01/18 20:25 158/95 06/01/18 20:00 Mechanical Ventilator Endotracheal Tube Mechanical Ventilator 06/01/18 20:00 91 06/01/18 20:00 98.9 91 16 174/72 (106) 99 06/01/18 20:00 40 06/01/18 19:23 94 29 40 06/01/18 19:00 90 16 158/95 (116) 99 06/01/18 18:00 87 27 162/67 (98) 100 06/01/18 17:19 88 27 40 06/01/18 17:00 98.5 88 22 177/70 (105) 100 06/01/18 16:00 40 06/01/18 16:00 Mechanical Ventilator Endotracheal Tube Mechanical Ventilator 06/01/18 16:00 87 06/01/18 16:00 86 23 159/65 (96) 100 06/01/18 15:25 90 27 40 06/01/18 15:00 92 25 150/63 (92) 100 06/01/18 14:28 152/66 06/01/18 13:57 92 24 152/66 (94) 100 06/01/18 13:00 98 26 146/83 (104) 100 Intake and Output 06/01/18 06/02/18 19:00 07:00 Intake Total 1030.336 ml 1149.552 ml Output Total 213 ml 450 ml Balance 817.336 ml 699.552 ml IV Total 1030.336 ml 1149.552 ml Output Urine Total 22 ml Stool Total 1 ml 300 ml Drainage Total 190 ml 150 ml # Bowel Movements 11 3 Laboratory Tests 06/02/18 04:00: White Blood Count 18.3H, Red Blood Count 3.18L, Hemoglobin 9.3#L, Hematocrit 28.1#L, Mean Corpuscular Volume 88, Mean Corpuscular Hemoglobin 29.3, Mean Corpuscular Hemoglobin Concent 33.1, Red Cell Distribution Width 15.1H, Platelet Count 109L, Mean Platelet Volume 8.8, Neutrophils (%) (Auto) , Lymphocytes (%) (Auto) , Monocytes (%) (Auto) , Eosinophils (%) (Auto) , Basophils (%) (Auto) , Differential Total Cells Counted 100, Neutrophils % ( Manual) 98H, Lymphocytes % (Manual) 1L, Monocytes % (Manual) 1, Eosinophils % ( Manual) 0, Basophils % (Manual) 0, Band Neutrophils 0, Platelet Estimate DecreasedL, Platelet Morphology Normal, Hypochromasia 1+, Anisocytosis 1+, Sodium Level 140, Potassium Level 3.6, Chloride Level 103, Carbon Dioxide Level 23, Anion Gap 14, Blood Urea Nitrogen 108H, Creatinine 4.8H, Estimat Glomerular Filtration Rate , Glucose Level 115H, Calcium Level 8.0L, Phosphorus Level 5.7H , Magnesium Level 3.2H, Total Bilirubin 0.4, Aspartate Amino Transf (AST/SGOT) 29, Alanine Aminotransferase (ALT/SGPT) 9L, Alkaline Phosphatase 129H, C- Reactive Protein, Quantitative 9.3H, Pro-B-Type Natriuretic Peptide 8791H, Total Protein 4.7L, Albumin 1.0L, Globulin 3.7, Albumin/Globulin Ratio 0.3L, Digoxin Level 0.5 06/02/18 11:53: Arterial Blood pH 7.310L, Arterial Blood Partial Pressure CO2 50.7H, Arterial Blood Partial Pressure O2 50.7L, Arterial Blood HCO3 25.0, Arterial Blood Oxygen Saturation 84.0*L, Arterial Blood Base Excess -1.5, Luiz Test Positive Height (Feet): 5 Height (Inches): 5.00 Weight (Pounds): 187 Objective GENERAL: Intubated. LUNGS: Decreased breath sounds bilaterally. HEART: S1 S2 Regular. ABDOMEN: Bandages applied with drains noted. EXTREMITIES: No cyanosis. No clubbing. Sid Holland Jun 02, 2018 12:41
--- NOTE | 2018-06-02 12:45 | NUR ---
NURSE NOTES: Patient observed bedside now be more responsive, open eyes spontaneously, track with his eyes and and respond to stimulus. Patient did not appear in any acute distress. Patient is being monitored on the air sampling and monitoring VSS. Patient is mechanically ventilated with new vent settings of AC 20, PC, PIP 25 Rate 20 FIO2 100% PEEP 10. Patient is tolerating well and maintaining O2 sats much better. Oral care was performed. Patient was desaturating which required Ambu bag to ventilate to reach 96%. Patient's sats DEC to 75%. Dr Jones arrived and changed settings and patient responded immediately to the new settings. Patient has a rectal tube draining green liquid stool to gravity. Patient is anuric. [facility] [place] [facility] running the TPN @ 85.417. HD tx was terminated early due to respiratory distress. Only 500 was taken out due to respiratory distress. Will discuss with Dr Arroyo regarding HD for tomorrow if patient remains stable. Safety measures are in place with bed locked in the lowest position, side rails up x 3. Will continue to monitor and follow plan of care.
[2018-06-02] MEDS: Cefepime HCl 2 GM in D5W 55 ML IVPB SCH (14:00)
[2018-06-02] MEDS: Norepinephrine Bitartrate 8 MG in D5W 500ml 492 ML IV SCH (14:30)
--- NOTE | 2018-06-02 14:49 | Nephrology Progress Note ---
Assessment/Plan Problem List: (1) ESRD (end stage renal disease) on dialysis (2) Perforated bowel (3) Hyponatremia (4) Major depression (5) Nausea & vomiting (6) H/O abdominal surgery Assessment: recent (7) Shock Assessment recent abdominal surgery hemodynamically stablized over night Presents with CHF and Low Na ESRD ACS DM HTN h/o GI bleed Depression Plan transfuse 2 units more K in TPN Stop Mag in TPN remains intubated off pressors on TPN- adjust Na and K and Mag in TPN HD 05/29 - 2 liters remove HD in am 06/02 didnt tolerate willrepeat 06/03 aim to correct lytes on steroids vented insulin for high BS hold dig , check levels, resume as needed Has abd surgery 05/15 Perforated bowel graft clotted , has a femoral felice right HOLD ALL MIND ALTERING MEDS - DC all po meds FLUID CHALLENGE pressors as needed BP HR Pain control discussed with RN and Dr Jones IV protonix Subjective ROS Limited/Unobtainable: Yes Objective Objective Last 24 Hour Vital Signs Date Time Temp Pulse Resp B/P (MAP) Pulse Ox O2 Delivery O2 Flow Rate FiO2 06/02/18 14:00 83 32 129/33 (65) 100 06/02/18 13:00 84 25 145/29 (67) 100 06/02/18 12:30 74 28 100 06/02/18 12:00 80 06/02/18 12:00 82 27 110/21 (50) 85 06/02/18 12:00 85 06/02/18 11:32 100 06/02/18 11:21 76 25 60 06/02/18 11:00 83 25 142/25 (64) 94 06/02/18 10:00 78 23 96/71 (79) 98 06/02/18 09:00 98.1 82 23 106/26 (52) 100 06/02/18 08:32 78 21 60 06/02/18 08:00 80 06/02/18 08:00 Mechanical Ventilator Endotracheal Tube Mechanical Ventilator 06/02/18 08:00 78 21 113/39 (63) 100 06/02/18 08:00 80 06/02/18 07:00 79 16 98/45 (62) 100 06/02/18 06:37 77 20 60 06/02/18 06:00 75 16 108/43 (64) 100 06/02/18 05:34 97.7 06/02/18 05:17 79 18 60 06/02/18 05:00 80 17 128/49 (75) 100 06/02/18 04:00 Mechanical Ventilator Endotracheal Tube Mechanical Ventilator 06/02/18 04:00 82 06/02/18 04:00 97.7 81 16 142/57 (85) 100 06/02/18 03:49 81 25 60 06/02/18 03:00 80 17 129/62 (84) 100 06/02/18 02:00 82 17 130/60 (83) 100 06/02/18 01:00 81 17 116/53 (74) 100 06/02/18 00:52 78 21 40 06/02/18 00:20 80 06/02/18 00:00 Mechanical Ventilator Endotracheal Tube Mechanical Ventilator 06/02/18 00:00 60 06/02/18 00:00 97.7 86 16 145/58 (87) 100 06/01/18 23:10 88 29 40 06/01/18 23:00 88 16 135/58 (83) 100 06/01/18 22:00 80 16 132/61 (84) 99 06/01/18 21:23 88 29 40 06/01/18 21:00 90 16 128/55 (79) 99 06/01/18 20:25 158/95 06/01/18 20:00 Mechanical Ventilator Endotracheal Tube Mechanical Ventilator 06/01/18 20:00 91 06/01/18 20:00 98.9 91 16 174/72 (106) 99 06/01/18 20:00 40 06/01/18 19:23 94 29 40 06/01/18 19:00 90 16 158/95 (116) 99 06/01/18 18:00 87 27 162/67 (98) 100 06/01/18 17:19 88 27 40 06/01/18 17:00 98.5 88 22 177/70 (105) 100 06/01/18 16:00 40 06/01/18 16:00 Mechanical Ventilator Endotracheal Tube Mechanical Ventilator 06/01/18 16:00 87 06/01/18 16:00 86 23 159/65 (96) 100 06/01/18 15:25 90 27 40 06/01/18 15:00 92 25 150/63 (92) 100 Intake and Output 06/01/18 06/02/18 19:00 07:00 Intake Total 1030.336 ml 1149.552 ml Output Total 213 ml 450 ml Balance 817.336 ml 699.552 ml IV Total 1030.336 ml 1149.552 ml Output Urine Total 22 ml Stool Total 1 ml 300 ml Drainage Total 190 ml 150 ml # Bowel Movements 11 3 Laboratory Tests 06/02/18 04:00: White Blood Count 18.3H, Red Blood Count 3.18L, Hemoglobin 9.3#L, Hematocrit 28.1#L, Mean Corpuscular Volume 88, Mean Corpuscular Hemoglobin 29.3, Mean Corpuscular Hemoglobin Concent 33.1, Red Cell Distribution Width 15.1H, Platelet Count 109L, Mean Platelet Volume 8.8, Neutrophils (%) (Auto) , Lymphocytes (%) (Auto) , Monocytes (%) (Auto) , Eosinophils (%) (Auto) , Basophils (%) (Auto) , Differential Total Cells Counted 100, Neutrophils % ( Manual) 98H, Lymphocytes % (Manual) 1L, Monocytes % (Manual) 1, Eosinophils % ( Manual) 0, Basophils % (Manual) 0, Band Neutrophils 0, Platelet Estimate DecreasedL, Platelet Morphology Normal, Hypochromasia 1+, Anisocytosis 1+, Sodium Level 140, Potassium Level 3.6, Chloride Level 103, Carbon Dioxide Level 23, Anion Gap 14, Blood Urea Nitrogen 108H, Creatinine 4.8H, Estimat Glomerular Filtration Rate , Glucose Level 115H, Calcium Level 8.0L, Phosphorus Level 5.7H , Magnesium Level 3.2H, Total Bilirubin 0.4, Aspartate Amino Transf (AST/SGOT) 29, Alanine Aminotransferase (ALT/SGPT) 9L, Alkaline Phosphatase 129H, C- Reactive Protein, Quantitative 9.3H, Pro-B-Type Natriuretic Peptide 8791H, Total Protein 4.7L, Albumin 1.0L, Globulin 3.7, Albumin/Globulin Ratio 0.3L, Digoxin Level 0.5 06/02/18 11:53: Arterial Blood pH 7.310L, Arterial Blood Partial Pressure CO2 50.7H, Arterial Blood Partial Pressure O2 50.7L, Arterial Blood HCO3 25.0, Arterial Blood Oxygen Saturation 84.0*L, Arterial Blood Base Excess -1.5, Luiz Test Positive Height (Feet): 5 Height (Inches): 5.00 Weight (Pounds): 187 General Appearance: no apparent distress Cardiovascular: normal rate Respiratory/Chest: decreased breath sounds Abdomen: distended Objective no change Maurilio Arroyo MD Jun 02, 2018 14:49
--- NOTE | 2018-06-02 14:58 | NUR ---
NURSE NOTES: Called [facility] to confirm for 06/03/18 spoke Lc to confirm.
--- NOTE | 2018-06-02 15:47 | General Progress Note ---
Assessment/Plan Assessment/Plan # Anemia of chronic disease due to underlying chronic medical issues, multifactorial --> Anemia w/u has been reviewed, reordered and ferritin is >2000 --> trend 10.3-->7.6-->8.9-->10.3-->9.5-->9.2-->8.3-->7.9-->8-->7.1-->9.3 --> not bleeding currently --> okay to give blood and products as patient unable to give consent, 2MD consent done --> continue Procrit 3x a week (started on 05/30) 3,000 sq dose # Thrombocytopenia due to septic shock --> vit K given for coagulopathy --> plt 163k-->116k-->83k-->98k-->105k-->109k # Small bowel perforation, s/p bowel resection, with Gram negative sepsis is on abx In ICU s/p Small bowel resection --> on broad spectrum abx --> on vanc/cefepime as per id--> now changed to zosyn, flagyl, micafungin--> on cefepime, levaquin and change per id --> s/p sb resection on 05/15, appreciate surg recs --> off pressors now # Hypofibrinoginemia -- potentially consumptive process given sepsis --> cryo given weeek of 05/23 --> fibrinogen 541 --> okay to give blood and products as patient unable to give consent, 2MD consent done # Lower extremity edema with an elevated BNP in a patient with renal failure on hemodialysis. --> on HD per Dr. Arroyo. --> currently has improved, continue to monitor # Atrial fib w rvr/flutter, being seen by cards, has converted to sr --> Cardiology is following, appreciate recs, echo was reviewed --> Currently denies any chest pain, completely rule out ACS --> EKG showed old inferior and anterior wall TN, but no ischemia --> ECHO with normal LV function --> now off hep gtt now --> off coumadin given drop in h/h # End-stage renal disease, on hemodialysis and also hyponatremia. --> Nephro is following, appreciate recs. HD approx 3x a week --> On intermittent HD # Respiratory failure on a vent, intubated # Mental status/confusion --> worsened at this time The time of note does not necessarily reflect the time of encounter Greatly appreciate consultation! Subjective ROS Limited/Unobtainable: Yes Allergies: Coded Allergies: No Known Allergies (Unverified , 11/12/12) Subjective 05/12: Pt resting in bed. No acute events. H/H stable. On abx. VS stable. 05/13: on pressors, on hep gtt, on steriods, abx, got hd, felice catheter in place : CT-A was negative, hep gtt as per cards, abg reviewed, moaning on exam, on ceftriaxone 05/15 :Pt remains in ICU. Currently undergoing HD. Pt on 2 cardiac drips for elevated Bp. WBC remains elevated. H/H stable. 05/16: s/p sb resection, In ICU s/p Small bowel resection on Amiodarone and Levophed drip. HR around 100. 05/17: Orally intubated on Ac 16, Vt 500, P 5 fio2 30%. Pt continues NPO at this time. Right upper arm and right FA IV sites patent and intact at this time. Amio gtt running 05/18: Pt remains in ICU. Pt for STAT HD. WBC remains elevated, afebrile. 05/19: getting hd periodically, no other events, vent to be weaned, labs reviewed, on dilaudid, ativan and fentanyl per pulm 05/21: prognosis is more guarded, no events to report, no f/c, but on two pressors now, on hep gtt for antonio thrombosis, hd as well 3x/week 05/22: on 2 pressors, seen by cards, renal, ryan drain draining improved, still on vent, converted to sr, on amio gtt, lactic acid downtrending, minimally responsive, on heparin gtt as well for antonio thrombus 05/23: patient to go to OR [facility] potential washout, ostomy, and line placement, fibrinogen low, needs cryoprecipirate, will also check inr/pt, cbc reviewed, electrolytes noted 05/24: Patient continues to be intubated on vent. He is s/p exploratory lap with wound washout and wound vac placement. 05/25: Pt is seen in the room, resting in bed. doing well since wound vac change , cbc reviewed, plt 163 05/26: Patient is is seen at bedside, intubated on vent. Wound vac still applied. No signs of pain at this time. Plt 116 . 1.7: again off pressors, plt somewhat lower, monitoring meds, on amio, antifungal as well, could be contributing, platelets and vitk given 05/28: had more surgeries yesterday with Right hemicolectomy, omentectomy & removal of wound-vac, off pressors, HD 05/29/18, on vent, stable 05/29: extubated but reintubated, on cefepime at this time, amiodarone, being seen by cards, procrit started 05/30: Pt is in ICU, Extubated and reintubated yesterday.Off Levophed and Heparin drip since surgery. On the Vent. 05/31: no events, remains on the vent, off pressors, received hd today 2.5L were removed 06/01: no fevers or chills, receiving hd as needed, on 1 pressors, not tolerating SBT very well 06/02: on a vent, no f/c noted, remains in the icu, poorly responsive at this time Objective Last 24 Hour Vital Signs Date Time Temp Pulse Resp B/P (MAP) Pulse Ox O2 Delivery O2 Flow Rate FiO2 06/02/18 15:00 91 23 152/57 (88) 100 06/02/18 14:58 85 25 90 06/02/18 14:00 83 32 129/33 (65) 100 06/02/18 13:00 84 25 145/29 (67) 100 06/02/18 12:30 74 28 100 06/02/18 12:00 80 06/02/18 12:00 82 27 110/21 (50) 85 06/02/18 12:00 85 06/02/18 11:32 100 06/02/18 11:21 76 25 60 06/02/18 11:00 83 25 142/25 (64) 94 06/02/18 10:00 78 23 96/71 (79) 98 06/02/18 09:00 98.1 82 23 106/26 (52) 100 06/02/18 08:32 78 21 60 06/02/18 08:00 80 06/02/18 08:00 Mechanical Ventilator Endotracheal Tube Mechanical Ventilator 06/02/18 08:00 78 21 113/39 (63) 100 06/02/18 08:00 80 06/02/18 07:00 79 16 98/45 (62) 100 06/02/18 06:37 77 20 60 06/02/18 06:00 75 16 108/43 (64) 100 06/02/18 05:34 97.7 06/02/18 05:17 79 18 60 06/02/18 05:00 80 17 128/49 (75) 100 06/02/18 04:00 Mechanical Ventilator Endotracheal Tube Mechanical Ventilator 06/02/18 04:00 82 06/02/18 04:00 97.7 81 16 142/57 (85) 100 06/02/18 03:49 81 25 60 06/02/18 03:00 80 17 129/62 (84) 100 06/02/18 02:00 82 17 130/60 (83) 100 06/02/18 01:00 81 17 116/53 (74) 100 06/02/18 00:52 78 21 40 06/02/18 00:20 80 06/02/18 00:00 Mechanical Ventilator Endotracheal Tube Mechanical Ventilator 06/02/18 00:00 60 06/02/18 00:00 97.7 86 16 145/58 (87) 100 06/01/18 23:10 88 29 40 06/01/18 23:00 88 16 135/58 (83) 100 06/01/18 22:00 80 16 132/61 (84) 99 06/01/18 21:23 88 29 40 06/01/18 21:00 90 16 128/55 (79) 99 06/01/18 20:25 158/95 06/01/18 20:00 Mechanical Ventilator Endotracheal Tube Mechanical Ventilator 06/01/18 20:00 91 06/01/18 20:00 98.9 91 16 174/72 (106) 99 06/01/18 20:00 40 06/01/18 19:23 94 29 40 06/01/18 19:00 90 16 158/95 (116) 99 06/01/18 18:00 87 27 162/67 (98) 100 06/01/18 17:19 88 27 40 06/01/18 17:00 98.5 88 22 177/70 (105) 100 06/01/18 16:00 40 06/01/18 16:00 Mechanical Ventilator Endotracheal Tube Mechanical Ventilator 06/01/18 16:00 87 06/01/18 16:00 86 23 159/65 (96) 100 Intake and Output 06/01/18 06/02/18 19:00 07:00 Intake Total 1030.336 ml 1149.552 ml Output Total 213 ml 450 ml Balance 817.336 ml 699.552 ml IV Total 1030.336 ml 1149.552 ml Output Urine Total 22 ml Stool Total 1 ml 300 ml Drainage Total 190 ml 150 ml # Bowel Movements 11 3 Laboratory Tests 06/02/18 04:00: White Blood Count 18.3H, Red Blood Count 3.18L, Hemoglobin 9.3#L, Hematocrit 28.1#L, Mean Corpuscular Volume 88, Mean Corpuscular Hemoglobin 29.3, Mean Corpuscular Hemoglobin Concent 33.1, Red Cell Distribution Width 15.1H, Platelet Count 109L, Mean Platelet Volume 8.8, Neutrophils (%) (Auto) , Lymphocytes (%) (Auto) , Monocytes (%) (Auto) , Eosinophils (%) (Auto) , Basophils (%) (Auto) , Differential Total Cells Counted 100, Neutrophils % ( Manual) 98H, Lymphocytes % (Manual) 1L, Monocytes % (Manual) 1, Eosinophils % ( Manual) 0, Basophils % (Manual) 0, Band Neutrophils 0, Platelet Estimate DecreasedL, Platelet Morphology Normal, Hypochromasia 1+, Anisocytosis 1+, Sodium Level 140, Potassium Level 3.6, Chloride Level 103, Carbon Dioxide Level 23, Anion Gap 14, Blood Urea Nitrogen 108H, Creatinine 4.8H, Estimat Glomerular Filtration Rate , Glucose Level 115H, Calcium Level 8.0L, Phosphorus Level 5.7H , Magnesium Level 3.2H, Total Bilirubin 0.4, Aspartate Amino Transf (AST/SGOT) 29, Alanine Aminotransferase (ALT/SGPT) 9L, Alkaline Phosphatase 129H, C- Reactive Protein, Quantitative 9.3H, Pro-B-Type Natriuretic Peptide 8791H, Total Protein 4.7L, Albumin 1.0L, Globulin 3.7, Albumin/Globulin Ratio 0.3L, Digoxin Level 0.5 06/02/18 11:53: Arterial Blood pH 7.310L, Arterial Blood Partial Pressure CO2 50.7H, Arterial Blood Partial Pressure O2 50.7L, Arterial Blood HCO3 25.0, Arterial Blood Oxygen Saturation 84.0*L, Arterial Blood Base Excess -1.5, Luiz Test Positive 06/02/18 14:49: Arterial Blood pH 7.320L, Arterial Blood Partial Pressure CO2 45.5H, Arterial Blood Partial Pressure O2 137.9H, Arterial Blood HCO3 23.0, Arterial Blood Oxygen Saturation 97.8, Arterial Blood Base Excess -3.1L, Luiz Test Positive Height (Feet): 5 Height (Inches): 5.00 Weight (Pounds): 187 Objective PE: VITAL SIGNS: Have been reviewed HEENT: PERRLA. intubated, vent++ NECK: Supple. No lymphadenopathy CHEST: ++ intubated CARDIOVASCULAR: Tachycardic. GASTROINTESTINAL: Distended. Positive bowel sounds. Nontender. No organomegaly. ++ ryan drain in place EXTREMITY: 2+ edema. NEURO: responsive to simple command Reinaldo Leon MD Jun 02, 2018 15:47
[2018-06-02] MEDS ORDERED: NS 275ml ONE ×2 (16:44→16:45)
[2018-06-02] MEDS ORDERED: Tubing IV Secondary IV ONE (16:44)
[2018-06-02] MEDS ORDERED: Tubing IV Blood Pump IV ONE (16:45)
--- NOTE | 2018-06-02 18:07 | General Progress Note ---
Assessment/Plan Assessment/Plan Assessment - septic shock - off pressors - abdominal infection - s/p exlap, multi-organism culture - liquid stools - resp failure - on vent - renal failure - malnutrition - on TPN Recommendation - supportive care - Abx - TF when OK with surgery - Check C Diff - negative - TPN per renal - follow labs - vent care - HD - guarded Subjective Allergies: Coded Allergies: No Known Allergies (Unverified , 11/12/12) Subjective above noted intubated (+) loose mucoid stools - C Diff (-) on TPN Objective Last 24 Hour Vital Signs Date Time Temp Pulse Resp B/P (MAP) Pulse Ox O2 Delivery O2 Flow Rate FiO2 06/02/18 18:00 92 27 132/47 (75) 100 06/02/18 17:09 90 26 90 06/02/18 17:00 88 29 119/36 (63) 100 06/02/18 16:00 98.3 89 27 93/70 (78) 100 06/02/18 16:00 Mechanical Ventilator Endotracheal Tube Mechanical Ventilator 06/02/18 16:00 88 06/02/18 16:00 90 06/02/18 15:00 91 23 152/57 (88) 100 06/02/18 14:58 85 25 90 06/02/18 14:00 83 32 129/33 (65) 100 06/02/18 13:00 84 25 145/29 (67) 100 06/02/18 12:30 74 28 100 06/02/18 12:00 80 06/02/18 12:00 82 27 110/21 (50) 85 06/02/18 12:00 Mechanical Ventilator Endotracheal Tube Mechanical Ventilator 06/02/18 12:00 85 06/02/18 11:32 100 06/02/18 11:21 76 25 60 06/02/18 11:00 83 25 142/25 (64) 94 06/02/18 10:00 78 23 96/71 (79) 98 06/02/18 09:00 98.1 82 23 106/26 (52) 100 06/02/18 08:32 78 21 60 06/02/18 08:00 80 06/02/18 08:00 Mechanical Ventilator Endotracheal Tube Mechanical Ventilator 06/02/18 08:00 78 21 113/39 (63) 100 06/02/18 08:00 80 06/02/18 07:00 79 16 98/45 (62) 100 06/02/18 06:37 77 20 60 06/02/18 06:00 75 16 108/43 (64) 100 06/02/18 05:34 97.7 06/02/18 05:17 79 18 60 06/02/18 05:00 80 17 128/49 (75) 100 06/02/18 04:00 Mechanical Ventilator Endotracheal Tube Mechanical Ventilator 06/02/18 04:00 82 06/02/18 04:00 97.7 81 16 142/57 (85) 100 06/02/18 03:49 81 25 60 06/02/18 03:00 80 17 129/62 (84) 100 06/02/18 02:00 82 17 130/60 (83) 100 06/02/18 01:00 81 17 116/53 (74) 100 06/02/18 00:52 78 21 40 06/02/18 00:20 80 06/02/18 00:00 Mechanical Ventilator Endotracheal Tube Mechanical Ventilator 06/02/18 00:00 60 06/02/18 00:00 97.7 86 16 145/58 (87) 100 06/01/18 23:10 88 29 40 06/01/18 23:00 88 16 135/58 (83) 100 06/01/18 22:00 80 16 132/61 (84) 99 06/01/18 21:23 88 29 40 06/01/18 21:00 90 16 128/55 (79) 99 06/01/18 20:25 158/95 06/01/18 20:00 Mechanical Ventilator Endotracheal Tube Mechanical Ventilator 06/01/18 20:00 91 06/01/18 20:00 98.9 91 16 174/72 (106) 99 06/01/18 20:00 40 06/01/18 19:23 94 29 40 06/01/18 19:00 90 16 158/95 (116) 99 Intake and Output 06/01/18 06/02/18 19:00 07:00 Intake Total 1030.336 ml 1149.552 ml Output Total 213 ml 450 ml Balance 817.336 ml 699.552 ml IV Total 1030.336 ml 1149.552 ml Output Urine Total 22 ml Stool Total 1 ml 300 ml Drainage Total 190 ml 150 ml # Bowel Movements 11 3 Laboratory Tests 06/02/18 04:00: White Blood Count 18.3H, Red Blood Count 3.18L, Hemoglobin 9.3#L, Hematocrit 28.1#L, Mean Corpuscular Volume 88, Mean Corpuscular Hemoglobin 29.3, Mean Corpuscular Hemoglobin Concent 33.1, Red Cell Distribution Width 15.1H, Platelet Count 109L, Mean Platelet Volume 8.8, Neutrophils (%) (Auto) , Lymphocytes (%) (Auto) , Monocytes (%) (Auto) , Eosinophils (%) (Auto) , Basophils (%) (Auto) , Differential Total Cells Counted 100, Neutrophils % ( Manual) 98H, Lymphocytes % (Manual) 1L, Monocytes % (Manual) 1, Eosinophils % ( Manual) 0, Basophils % (Manual) 0, Band Neutrophils 0, Platelet Estimate DecreasedL, Platelet Morphology Normal, Hypochromasia 1+, Anisocytosis 1+, Sodium Level 140, Potassium Level 3.6, Chloride Level 103, Carbon Dioxide Level 23, Anion Gap 14, Blood Urea Nitrogen 108H, Creatinine 4.8H, Estimat Glomerular Filtration Rate , Glucose Level 115H, Calcium Level 8.0L, Phosphorus Level 5.7H , Magnesium Level 3.2H, Total Bilirubin 0.4, Aspartate Amino Transf (AST/SGOT) 29, Alanine Aminotransferase (ALT/SGPT) 9L, Alkaline Phosphatase 129H, C- Reactive Protein, Quantitative 9.3H, Pro-B-Type Natriuretic Peptide 8791H, Total Protein 4.7L, Albumin 1.0L, Globulin 3.7, Albumin/Globulin Ratio 0.3L, Digoxin Level 0.5 06/02/18 11:53: Arterial Blood pH 7.310L, Arterial Blood Partial Pressure CO2 50.7H, Arterial Blood Partial Pressure O2 50.7L, Arterial Blood HCO3 25.0, Arterial Blood Oxygen Saturation 84.0*L, Arterial Blood Base Excess -1.5, Luiz Test Positive 06/02/18 14:49: Arterial Blood pH 7.320L, Arterial Blood Partial Pressure CO2 45.5H, Arterial Blood Partial Pressure O2 137.9H, Arterial Blood HCO3 23.0, Arterial Blood Oxygen Saturation 97.8, Arterial Blood Base Excess -3.1L, Luiz Test Positive Height (Feet): 5 Height (Inches): 5.00 Weight (Pounds): 187 Objective Intubated NCAT ETT / OGT Supple Coarse BS RR abd more flat, (+) large dressing with VELVET x 2 no edema withdrawn Lisa Jain MD Jun 02, 2018 18:07
--- NOTE | 2018-06-02 18:50 | NUR ---
NURSE NOTES: Patient was cleaned, linens changed and repositioned. A new rectal tube bag was hung. Patient was orally suctioned and copious amounts of oral sections were suctioned. Patient is saturating at 100%, VSS. Patient is more responsive to stimuli, opens eyes spontaneously and tracks with his eyes. Will continue to monitor.
[2018-06-02] MEDS: TPN IV SCH (19:05)
[2018-06-02] MEDS: FAT EMULSION 20% IV SCH (19:05)
--- NOTE | 2018-06-02 19:16 | NUR ---
RESPIRATORY NOTE: Received pt. on 840 vent. Vent settings are: A/C rate of 20, PC, FI02 80%, PEEP +10. Pt. has large amount of thick secretions, Ambu bag @ bs. Vent plugged on red outlet. Will continue to monitor pt.
--- NOTE | 2018-06-02 19:39 | NUR ---
HAND-OFF: Report given to MINGO Shetty. VSS and patient not in any acute distress.
--- NOTE | 2018-06-02 20:00 | NUR ---
NURSE NOTES: Patient received from MINGO Menon. Patient observed bedside to be open eyes but not track however, patient did not respond to pain stimulus. Patient did not appear in any acute distress. Patient is being monitored on the singing teacher VS 94/71, HR 79, RR 21 SPO2 100%. Patient is mechanically ventilated AC 20, TV 500, FIO2 80% PEEP 5. Oral care was performed. Upon auscultation, rhonchi and rales were heard BL and diminished breath sounds are heard on lower left. Patient has TPN running at 85.417 for nutrition. Patient has a rectal tube draining green liquid stool to gravity. Patient is anuric. Patient has Right Femoral HD Baljeet Catheter that is patent and asymptomatic as well as a LSC TLC running the TPN. Patient is very edematous, and has R ear DTI, L cheek open wound from the anchor, upper lip wound from the anchor and a sacral wound with dressing that are dry and intact. Patient has restraints at this time for safety due to impulsivity, pulses are palpable and skin is intact. Will monitor for dc of restraints. Safety measures are in place with bed locked in the lowest position, side rails up x 3. Will continue to monitor and follow plan of care.
[2018-06-02] MEDS: Dyna-Hex 2% Top Sol 2oz TOPIC SCH (20:26)
[2018-06-02] MEDS: Nitroglycerin Patch 0.4mg TDERMAL SCH (20:27)
--- NOTE | 2018-06-02 20:30 | NUR ---
NURSE NOTES: FiO2 is now 80%
--- NOTE | 2018-06-02 21:29 | General Progress Note ---
Assessment/Plan Problem List: (1) ACS (acute coronary syndrome) ICD Codes: I24.9 - Acute ischemic heart disease, unspecified SNOMED: 726661957 (2) ESRD (end stage renal disease) on dialysis ICD Codes: N18.6 - End stage renal disease; Z99.2 - Dependence on renal dialysis SNOMED: 415138884 (3) Depression ICD Codes: F32.9 - Major depressive disorder, single episode, unspecified SNOMED: 65704482 (4) Anemia ICD Codes: D64.9 - Anemia, unspecified SNOMED: 872103495 (5) Sacral decubitus ulcer, stage III ICD Codes: L89.153 - Pressure ulcer of sacral region, stage 3 SNOMED: 006400116, 833465362 (6) Major depression ICD Codes: F32.9 - Major depressive disorder, single episode, unspecified SNOMED: 796567300 (7) anxiety disorder (8) Atrial fibrillation ICD Codes: I48.91 - Unspecified atrial fibrillation SNOMED: 71833581 (9) Hypoxemia ICD Codes: R09.02 - Hypoxemia SNOMED: 211700768 (10) Hypotension ICD Codes: I95.9 - Hypotension, unspecified SNOMED: 26873159 (11) Shock ICD Codes: R57.9 - Shock, unspecified SNOMED: 77353793 (12) Elevated d-dimer ICD Codes: R79.89 - Other specified abnormal findings of blood chemistry SNOMED: 011240487 (13) encephalopathy due to metabolic factor Status: unchanged Assessment/Plan resp failure intubated distended abdomin scrotal edema le edema malnutriotion s/p washout of pus / multiple exploratory lap esrd on hd s/p septic shick s/p perforated viscuis after cholycestectomy in another hospital arrythmia not improving poor prognosis Subjective ROS Limited/Unobtainable: Yes Allergies: Coded Allergies: No Known Allergies (Unverified , 11/12/12) Objective Last 24 Hour Vital Signs Date Time Temp Pulse Resp B/P (MAP) Pulse Ox O2 Delivery O2 Flow Rate FiO2 06/02/18 21:00 91 26 106/94 (98) 100 06/02/18 20:30 80 06/02/18 20:27 117/43 06/02/18 20:00 90 06/02/18 20:00 Mechanical Ventilator Endotracheal Tube Mechanical Ventilator 06/02/18 20:00 98.6 89 26 124/49 (74) 100 06/02/18 20:00 85 06/02/18 19:15 93 24 90 06/02/18 19:00 93 28 110/32 (58) 100 06/02/18 18:00 92 27 132/47 (75) 100 06/02/18 17:09 90 26 90 06/02/18 17:00 88 29 119/36 (63) 100 06/02/18 16:00 98.3 89 27 93/70 (78) 100 06/02/18 16:00 Mechanical Ventilator Endotracheal Tube Mechanical Ventilator 06/02/18 16:00 88 06/02/18 16:00 90 06/02/18 15:00 91 23 152/57 (88) 100 06/02/18 14:58 85 25 90 06/02/18 14:00 83 32 129/33 (65) 100 06/02/18 13:00 84 25 145/29 (67) 100 06/02/18 12:30 74 28 100 06/02/18 12:00 80 06/02/18 12:00 82 27 110/21 (50) 85 06/02/18 12:00 Mechanical Ventilator Endotracheal Tube Mechanical Ventilator 06/02/18 12:00 85 06/02/18 11:32 100 06/02/18 11:21 76 25 60 06/02/18 11:00 83 25 142/25 (64) 94 06/02/18 10:00 78 23 96/71 (79) 98 06/02/18 09:00 98.1 82 23 106/26 (52) 100 06/02/18 08:32 78 21 60 06/02/18 08:00 80 06/02/18 08:00 Mechanical Ventilator Endotracheal Tube Mechanical Ventilator 06/02/18 08:00 78 21 113/39 (63) 100 06/02/18 08:00 80 06/02/18 07:00 79 16 98/45 (62) 100 06/02/18 06:37 77 20 60 06/02/18 06:00 75 16 108/43 (64) 100 06/02/18 05:34 97.7 06/02/18 05:17 79 18 60 06/02/18 05:00 80 17 128/49 (75) 100 06/02/18 04:00 Mechanical Ventilator Endotracheal Tube Mechanical Ventilator 06/02/18 04:00 82 06/02/18 04:00 97.7 81 16 142/57 (85) 100 06/02/18 03:49 81 25 60 06/02/18 03:00 80 17 129/62 (84) 100 06/02/18 02:00 82 17 130/60 (83) 100 06/02/18 01:00 81 17 116/53 (74) 100 06/02/18 00:52 78 21 40 06/02/18 00:20 80 06/02/18 00:00 Mechanical Ventilator Endotracheal Tube Mechanical Ventilator 06/02/18 00:00 60 06/02/18 00:00 97.7 86 16 145/58 (87) 100 06/01/18 23:10 88 29 40 06/01/18 23:00 88 16 135/58 (83) 100 06/01/18 22:00 80 16 132/61 (84) 99 Intake and Output 06/01/18 06/02/18 19:00 07:00 Intake Total 1030.336 ml 1149.552 ml Output Total 213 ml 450 ml Balance 817.336 ml 699.552 ml IV Total 1030.336 ml 1149.552 ml Output Urine Total 22 ml Stool Total 1 ml 300 ml Drainage Total 190 ml 150 ml # Bowel Movements 11 3 Laboratory Tests 06/02/18 04:00: White Blood Count 18.3H, Red Blood Count 3.18L, Hemoglobin 9.3#L, Hematocrit 28.1#L, Mean Corpuscular Volume 88, Mean Corpuscular Hemoglobin 29.3, Mean Corpuscular Hemoglobin Concent 33.1, Red Cell Distribution Width 15.1H, Platelet Count 109L, Mean Platelet Volume 8.8, Neutrophils (%) (Auto) , Lymphocytes (%) (Auto) , Monocytes (%) (Auto) , Eosinophils (%) (Auto) , Basophils (%) (Auto) , Differential Total Cells Counted 100, Neutrophils % ( Manual) 98H, Lymphocytes % (Manual) 1L, Monocytes % (Manual) 1, Eosinophils % ( Manual) 0, Basophils % (Manual) 0, Band Neutrophils 0, Platelet Estimate DecreasedL, Platelet Morphology Normal, Hypochromasia 1+, Anisocytosis 1+, Sodium Level 140, Potassium Level 3.6, Chloride Level 103, Carbon Dioxide Level 23, Anion Gap 14, Blood Urea Nitrogen 108H, Creatinine 4.8H, Estimat Glomerular Filtration Rate , Glucose Level 115H, Calcium Level 8.0L, Phosphorus Level 5.7H , Magnesium Level 3.2H, Total Bilirubin 0.4, Aspartate Amino Transf (AST/SGOT) 29, Alanine Aminotransferase (ALT/SGPT) 9L, Alkaline Phosphatase 129H, C- Reactive Protein, Quantitative 9.3H, Pro-B-Type Natriuretic Peptide 8791H, Total Protein 4.7L, Albumin 1.0L, Globulin 3.7, Albumin/Globulin Ratio 0.3L, Digoxin Level 0.5 06/02/18 11:53: Arterial Blood pH 7.310L, Arterial Blood Partial Pressure CO2 50.7H, Arterial Blood Partial Pressure O2 50.7L, Arterial Blood HCO3 25.0, Arterial Blood Oxygen Saturation 84.0*L, Arterial Blood Base Excess -1.5, Luiz Test Positive 06/02/18 14:49: Arterial Blood pH 7.320L, Arterial Blood Partial Pressure CO2 45.5H, Arterial Blood Partial Pressure O2 137.9H, Arterial Blood HCO3 23.0, Arterial Blood Oxygen Saturation 97.8, Arterial Blood Base Excess -3.1L, Luiz Test Positive Height (Feet): 5 Height (Inches): 5.00 Weight (Pounds): 187 General Appearance: lethargic, confused Respiratory/Chest: lungs clear Abdomen: soft Samantha Head MD Jun 02, 2018 21:29
--- NOTE | 2018-06-02 22:00 | NUR ---
NURSE NOTES: Patient repositioned and pillows adjusted. Patients BP are within range, No acute distress at the moment, FiO2 at 60%, Spo2 remaining at 100% with good waveform.
[2018-06-03] VITALS (29 sets, daily range): BP systolic 54–133; BP diastolic 19–102
--- NOTE | 2018-06-03 | NUR ---
NURSE NOTES: FiO2 at 50%, Spo2 remaining at 100% with good waveform. No form of acute distress, BP within good parameters given patients condition, oral care was provided and deep suction.
[2018-06-03] MEDS: NovoLOG Insulin Flexpen SUBQ SCH ×6 (00:44→21:36)
--- NOTE | 2018-06-03 02:00 | NUR ---
NURSE NOTES: Patient repositioned and suctioned, oral care provided. NAD, BP stable
--- NOTE | 2018-06-03 04:00 | NUR ---
NURSE NOTES: Repositioned and oral care done, Patient cleaned and kept dry. Oral care done. NAD. BP parameters within range.
--- NOTE | 2018-06-03 06:00 | NUR ---
NURSE NOTES: Vitals stables, NAD, suctioned patient.
--- NOTE | 2018-06-03 06:26 | General Progress Note ---
Assessment/Plan Problem List: (1) Perforated viscus ICD Codes: R19.8 - Other specified symptoms and signs involving the digestive system and abdomen SNOMED: 48509911, 089129196, 326329780 (2) ESRD (end stage renal disease) on dialysis ICD Codes: N18.6 - End stage renal disease; Z99.2 - Dependence on renal dialysis SNOMED: 629120833 (3) Shock ICD Codes: R57.9 - Shock, unspecified SNOMED: 40297807 (4) Diabetes mellitus out of control ICD Codes: E11.65 - Type 2 diabetes mellitus with hyperglycemia SNOMED: 88244099, 677858625 Assessment/Plan continue BG monitoring and Novolog sliding scale every 4 hours reduce Levemir to 14 units bid Subjective ROS Limited/Unobtainable: Yes Allergies: Coded Allergies: No Known Allergies (Unverified , 11/12/12) Subjective events noted intubated on TPN Objective Last 24 Hour Vital Signs Date Time Temp Pulse Resp B/P (MAP) Pulse Ox O2 Delivery O2 Flow Rate FiO2 06/03/18 05:07 103 29 50 06/03/18 05:00 101 29 123/39 (67) 99 06/03/18 04:00 50 06/03/18 04:00 99 06/03/18 04:00 Mechanical Ventilator Endotracheal Tube Mechanical Ventilator 06/03/18 04:00 98.8 104 29 103/31 (55) 100 06/03/18 03:14 87 31 50 06/03/18 03:00 87 29 123/30 (61) 100 06/03/18 02:00 93 28 100/43 (62) 100 06/03/18 01:00 89 28 90/66 (74) 100 06/03/18 01:00 92 29 50 06/03/18 00:00 99.7 88 30 106/37 (60) 100 06/03/18 00:00 Mechanical Ventilator Endotracheal Tube Mechanical Ventilator 06/03/18 00:00 50 06/02/18 23:17 90 23 90 06/02/18 23:00 93 29 130/36 (67) 100 06/02/18 22:00 70 06/02/18 22:00 92 27 111/35 (60) 100 06/02/18 21:27 88 24 90 06/02/18 21:00 91 26 106/94 (98) 100 06/02/18 20:30 80 06/02/18 20:27 117/43 06/02/18 20:00 90 06/02/18 20:00 Mechanical Ventilator Endotracheal Tube Mechanical Ventilator 06/02/18 20:00 98.6 89 26 124/49 (74) 100 06/02/18 20:00 85 06/02/18 19:15 93 24 90 06/02/18 19:00 93 28 110/32 (58) 100 06/02/18 18:00 92 27 132/47 (75) 100 06/02/18 17:09 90 26 90 06/02/18 17:00 88 29 119/36 (63) 100 06/02/18 16:00 98.3 89 27 93/70 (78) 100 06/02/18 16:00 Mechanical Ventilator Endotracheal Tube Mechanical Ventilator 06/02/18 16:00 88 06/02/18 16:00 90 06/02/18 15:00 91 23 152/57 (88) 100 06/02/18 14:58 85 25 90 06/02/18 14:00 83 32 129/33 (65) 100 06/02/18 13:00 84 25 145/29 (67) 100 06/02/18 12:30 74 28 100 06/02/18 12:00 80 06/02/18 12:00 82 27 110/21 (50) 85 06/02/18 12:00 Mechanical Ventilator Endotracheal Tube Mechanical Ventilator 06/02/18 12:00 85 06/02/18 11:32 100 06/02/18 11:21 76 25 60 06/02/18 11:00 83 25 142/25 (64) 94 06/02/18 10:00 78 23 96/71 (79) 98 06/02/18 09:00 98.1 82 23 106/26 (52) 100 06/02/18 08:32 78 21 60 06/02/18 08:00 80 06/02/18 08:00 Mechanical Ventilator Endotracheal Tube Mechanical Ventilator 06/02/18 08:00 78 21 113/39 (63) 100 06/02/18 08:00 80 06/02/18 07:00 79 16 98/45 (62) 100 06/02/18 06:37 77 20 60 Intake and Output 06/02/18 06/03/18 19:00 07:00 Intake Total 1385.004 ml 868.753 ml Output Total 1350 ml Balance 35.004 ml 868.753 ml IV Total 1385.004 ml 868.753 ml Stool Total 300 ml Drainage Total 550 ml Hemodialysis UF 500 ml # Bowel Movements 3 3 Laboratory Tests 06/02/18 11:53: Arterial Blood pH 7.310L, Arterial Blood Partial Pressure CO2 50.7H, Arterial Blood Partial Pressure O2 50.7L, Arterial Blood HCO3 25.0, Arterial Blood Oxygen Saturation 84.0*L, Arterial Blood Base Excess -1.5, Luiz Test Positive 06/02/18 14:49: Arterial Blood pH 7.320L, Arterial Blood Partial Pressure CO2 45.5H, Arterial Blood Partial Pressure O2 137.9H, Arterial Blood HCO3 23.0, Arterial Blood Oxygen Saturation 97.8, Arterial Blood Base Excess -3.1L, Luiz Test Positive Height (Feet): 5 Height (Inches): 5.00 Weight (Pounds): 187 General Appearance: severe distress Neck: normal alignment Cardiovascular: tachycardia Respiratory/Chest: decreased breath sounds Abdomen: hypoactive bowel sounds Edema: 2+ Arm (L), 2+ Arm (R), 2+ Leg (L), 2+ Leg (R), 2+ Pedal (L), 2+ Pedal ( R), 2+ Generalized Objective Current Medications Medications (Trade) Dose Ordered Sig/Min Route PRN Reason Start Time Stop Time Status Last Admin Dose Admin Acetaminophen (Tylenol) 650 mg Q4H PRN RECTAL Mild Pain/Temp > 100.5 05/21/18 12:00 06/20/18 11:59 Cefepime HCl 2 gm/ Dextrose 55 ml @ 110 mls/hr Q24H IVPB 05/25/18 13:00 06/07/18 12:59 06/02/18 14:00 Chlorhexidine Gluconate (Tatyana-Hex 2%) 1 applic DAILY@2000 TOPIC 05/12/18 20:00 06/11/18 19:59 06/02/18 20:26 Dextrose 1,000 ml @ 0 mls/hr Q24H PRN IV PN interrupted or unavailable 05/25/18 21:00 06/24/18 20:59 Dextrose (Dextrose 50%) 25 ml Q30M PRN IV Hypoglycemia 05/26/18 12:45 06/25/18 12:44 Dextrose (Dextrose 50%) 50 ml Q30M PRN IV Hypoglycemia 05/26/18 12:45 06/25/18 12:44 05/31/18 21:12 Digoxin (Lanoxin) 0.125 mg 3XW IVP 06/03/18 09:00 07/03/18 08:59 Epoetin Bret (Procrit (for ESRD on dialysis)) 10,000 units SUN- SUBQ 06/03/18 21:00 06/30/18 20:59 Fat Emulsion Intravenous 250 ml/Amino Acids/ Electrolytes/ Dextrose 2,050 ml @ 85.417 mls/ hr Q24H IV 06/01/18 20:00 07/01/18 19:59 06/02/18 19:05 Fluconazole/ Sodium Chloride 100 ml @ 100 mls/hr Q24H IV 05/28/18 18:00 06/04/18 17:59 06/02/18 18:36 Hydrocortisone (Solu-CORTEF) 25 mg Q12HR IV 06/01/18 21:00 07/01/18 20:59 06/02/18 20:27 Hydromorphone HCl (Dilaudid) 1 mg Q2H PRN IVP Severe Pain (Pain Scale 7-10) 05/31/18 10:00 06/05/18 09:59 06/02/18 05:04 Insulin Aspart (NovoLOG) EVERY 4 HOURS SUBQ 05/24/18 17:00 06/15/18 20:59 06/02/18 20:29 Insulin Detemir (Levemir) 20 units Q12HR SUBQ 05/27/18 09:00 06/23/18 17:59 06/02/18 20:28 Levofloxacin 50 ml @ 50 mls/hr Q24H IVPB 05/25/18 13:00 06/07/18 12:59 06/02/18 14:00 Metronidazole 100 ml @ 100 mls/hr Q8HR IVPB 05/25/18 14:00 06/07/18 13:59 06/03/18 05:29 Nitroglycerin (Ntg) 1 patch Q24H TDERMAL 05/29/18 20:00 06/28/18 19:59 06/02/18 20:27 Norepinephrine Bitartrate 8 mg/ Dextrose 500 ml @ 0 mls/hr Q24H IV 05/21/18 14:30 06/20/18 14:29 05/27/18 14:30 Ondansetron HCl (Zofran) 4 mg Q6H PRN IVP Nausea & Vomiting 05/15/18 23:30 06/14/18 23:29 Pantoprazole (Protonix) 40 mg EVERY 12 HOURS IVP 05/12/18 21:00 06/10/18 20:59 06/02/18 20:26 Phytonadione (Vitamin K) 10 mg ONCE A WEEK SUBQ 05/25/18 21:00 06/24/18 20:59 06/01/18 20:31 Vasopressin 100 units/Sodium Chloride 100 ml @ 0 mls/hr Q24H IV 05/22/18 11:30 06/21/18 11:29 05/23/18 17:47 Item Value Date Time Bedside Blood Glucose 78 mg/dl 06/03/18 0500 Bedside Blood Glucose 109 mg/dl 06/03/18 0044 Bedside Blood Glucose 140 mg/dl H 06/02/18 2029 Bedside Blood Glucose 136 mg/dl H 06/02/18 1837 Bedside Blood Glucose 158 mg/dl H 06/02/18 1400 Bedside Blood Glucose 95 mg/dl 06/02/18 0849 Bedside Blood Glucose 121 mg/dl H 06/02/18 0508 Rashad Koenig MD Jun 03, 2018 06:26
--- NOTE | 2018-06-03 07:04 | NUR ---
RESPIRATORY NOTE: received pt on vent, intubated with 7.5 ett placed 24cm at the lip. p Addendum: 06/03/18 at 0707 by MATTY THOMASON RT cont: shallow breathing with RR 29. pt is on AC/PC with current fio2 50%, peep +10. HR 99 and spo2 100%. alarms are on and audible with vent plugged into red outlet. ambu bag at bedside. will cont to monitor.
[2018-06-03 07:14] LABS: HEMATOCRIT 27.3 % (42.0-52.0); MEAN CORPUSCULAR VOLUME 88 FL (80-99); PLATELET COUNT 108 K/UL (150-450); RED BLOOD COUNT 3.09 M/UL (4.70-6.10); RED CELL DISTRIBUTION WIDTH 15.5 % (11.6-14.8); WHITE BLOOD COUNT 14.7 K/UL (4.8-10.8)
--- NOTE | 2018-06-03 07:30 | NUR ---
NURSE NOTES: Patient received from MINGO Shetty. Patient in bed, open eyes, briefly to name and light shaking. Patient on monitor, VSS SPO2 100%. Pt ET Tube to ventilator AC 20, TV 500, FIO2 40% PEEP 10. oral cavity dried blood present. Rhonchi RLL, and diminished breath sounds upper lobes. RR 30 bpm. Abdomen round, bowel sounds hypoactive. rectal tube in place, draining dark greenish-brown liquid stool. Patient has TPN running @ 85.417. Patient is has voided. Patient has Right Femoral HD Baljeet Catheter that is patent and asymptomatic and subclavian TLC. Patient has pitting edema of lower body. skin- see assessment. Patient has bilateral soft wrist restraints. Contact and fall precautions in place. Bed locked in lowest position, side rails up x 3. Will continue to monitor and follow plan of care.
--- NOTE | 2018-06-03 07:40 | NUR ---
NURSE NOTES: machine technician here to do CXR.
[2018-06-03 07:50] LABS: ALANINE AMINOTRANSFERASE 12 U/L (12-78); ALBUMIN/GLOBULIN RATIO 0.2 (1.0-2.7); ALKALINE PHOSPHATASE 144 U/L (46-116); ANION GAP 14 mmol/L (5-15); ASPARTATE AMINO TRANSFERASE 33 U/L (15-37); BILIRUBIN,TOTAL 0.4 MG/DL (0.2-1.0); BLOOD UREA NITROGEN 115 mg/dL (7-18); CALCIUM 8.1 MG/DL (8.5-10.1); CARBON DIOXIDE 23 MMOL/L (21-32); CHLORIDE 104 MMOL/L (98-107); CREATININE 4.8 MG/DL (0.55-1.30); PHOSPHORUS 5.6 MG/DL (2.5-4.9); POTASSIUM 3.8 MMOL/L (3.5-5.1); SODIUM 141 MMOL/L (136-145)
--- NOTE | 2018-06-03 08:51 | NUR ---
NURSE NOTES: MD RAE HERE TO SEE PT, NO NEW ORDERS.
[2018-06-03] MEDS: Levemir Flexpen SUBQ SCH ×2 (09:00→21:00)
--- NOTE | 2018-06-03 09:30 | NUR ---
NURSE NOTES: called pharmacy specialist to restock Protonix in [place]. will administer upon arrival.
--- NOTE | 2018-06-03 09:38 | NUR ---
RADIOLOGY DEPT CHEST X-RAY DONE.-P.DYE
[2018-06-03] MEDS: Hydrocortisone 100mg Inj IV SCH ×2 (09:48→20:50)
[2018-06-03] MEDS: Digoxin 0.5mg/2ml Inj IVP SCH (09:50)
--- NOTE | 2018-06-03 10:16 | Infectious Diseases Prog Note ---
Assessment/Plan Assessment/Plan A: 1. serratia , Enterobacter sepsis with shock 2. VRE colonization 3. diabetes mellitus 4. hypertension 5. 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 leucocytosis 6. A fib with RVR 7. Small bowel perforation 8. Perioperative respiratory failure 9. Atelectasis versus Pneumonia 10 Peritonitis with Citrobacter & Serratia 11. sepsis, septic shock 12. Lactic acidosis 13. Anemia 14. Anastomosis leak 15. Hypokalemia P 1. continue Cefepime , Flagyl , Levaquin & Fluconazole 2.Continue TPN 3. will F/U CXR Subjective ROS Limited/Unobtainable: Yes Constitutional: Reports: other - Critically ill Respiratory: Reports: other - has peroids of desaturation Gastrointestinal/Abdominal: Reports: diarrhea Allergies: Coded Allergies: No Known Allergies (Unverified , 11/12/12) Objective Vital Signs Last 24 Hour Vital Signs Date Time Temp Pulse Resp B/P (MAP) Pulse Ox O2 Delivery O2 Flow Rate FiO2 06/03/18 09:00 87 29 108/41 (63) 100 06/03/18 08:59 101 33 45 06/03/18 08:00 90 27 96/24 (48) 100 06/03/18 08:00 50 06/03/18 08:00 Mechanical Ventilator Endotracheal Tube Mechanical Ventilator 06/03/18 07:01 99 32 50 06/03/18 07:00 98 26 123/42 (69) 100 06/03/18 06:00 83 24 101/45 (63) 100 06/03/18 05:07 103 29 50 06/03/18 05:00 101 29 123/39 (67) 99 06/03/18 04:00 50 06/03/18 04:00 99 06/03/18 04:00 Mechanical Ventilator Endotracheal Tube Mechanical Ventilator 06/03/18 04:00 98.8 104 29 103/31 (55) 100 06/03/18 03:14 87 31 50 06/03/18 03:00 87 29 123/30 (61) 100 06/03/18 02:00 93 28 100/43 (62) 100 06/03/18 01:00 89 28 90/66 (74) 100 06/03/18 01:00 92 29 50 06/03/18 00:00 99.7 88 30 106/37 (60) 100 06/03/18 00:00 Mechanical Ventilator Endotracheal Tube Mechanical Ventilator 06/03/18 00:00 50 06/02/18 23:17 90 23 90 06/02/18 23:00 93 29 130/36 (67) 100 06/02/18 22:00 70 06/02/18 22:00 92 27 111/35 (60) 100 06/02/18 21:27 88 24 90 06/02/18 21:00 91 26 106/94 (98) 100 06/02/18 20:30 80 06/02/18 20:27 117/43 06/02/18 20:00 90 06/02/18 20:00 Mechanical Ventilator Endotracheal Tube Mechanical Ventilator 06/02/18 20:00 98.6 89 26 124/49 (74) 100 06/02/18 20:00 85 06/02/18 19:15 93 24 90 06/02/18 19:00 93 28 110/32 (58) 100 06/02/18 18:00 92 27 132/47 (75) 100 06/02/18 17:09 90 26 90 06/02/18 17:00 88 29 119/36 (63) 100 06/02/18 16:00 98.3 89 27 93/70 (78) 100 06/02/18 16:00 Mechanical Ventilator Endotracheal Tube Mechanical Ventilator 06/02/18 16:00 88 06/02/18 16:00 90 06/02/18 15:00 91 23 152/57 (88) 100 06/02/18 14:58 85 25 90 06/02/18 14:00 83 32 129/33 (65) 100 06/02/18 13:00 84 25 145/29 (67) 100 06/02/18 12:30 74 28 100 06/02/18 12:00 80 06/02/18 12:00 82 27 110/21 (50) 85 06/02/18 12:00 Mechanical Ventilator Endotracheal Tube Mechanical Ventilator 06/02/18 12:00 85 06/02/18 11:32 100 06/02/18 11:21 76 25 60 06/02/18 11:00 83 25 142/25 (64) 94 Height (Feet): 5 Height (Inches): 5.00 Weight (Pounds): 187 HEENT: other - orally intubated Respiratory/Chest: decreased breath sounds, other - on ventilator Cardiovascular: normal rate, other - R subclavian central line, Femoral HD line Abdomen: other - surgical dressing, rectal tube, drains Extremities: other - anasarca Neurologic/Psychiatric: unresponsiveness Microbiology Date/Time Source Procedure Growth Status 06/01/18 17:00 Stool Clostridium difficile Toxin Assay - Final Complete Laboratory Tests Test 06/02/18 11:53 06/02/18 14:49 06/03/18 05:30 Arterial Blood pH 7.310 (7.350-7.450) 7.320 (7.350-7.450) Arterial Blood Partial Pressure CO2 50.7 mmHg (35.0-45.0) H 45.5 mmHg (35.0-45.0) H Arterial Blood Partial Pressure O2 50.7 mmHg (75.0-100.0) L 137.9 mmHg (75.0-100.0) H Arterial Blood HCO3 25.0 mmol/L (22.0-26.0) 23.0 mmol/L (22.0-26.0) Arterial Blood Oxygen Saturation 84.0 % (95-100) *L 97.8 % (95-100) Arterial Blood Base Excess -1.5 (-2-2) -3.1 (-2-2) L Luiz Test Positive Positive White Blood Count 14.7 K/UL (4.8-10.8) H Red Blood Count 3.09 M/UL (4.70-6.10) L Hemoglobin 9.0 G/DL (14.2-18.0) L Hematocrit 27.3 % (42.0-52.0) L Mean Corpuscular Volume 88 FL (80-99) Mean Corpuscular Hemoglobin 29.3 PG (27.0-31.0) Mean Corpuscular Hemoglobin Concent 33.2 G/DL (32.0-36.0) Red Cell Distribution Width 15.5 % (11.6-14.8) H Platelet Count 108 K/UL (150-450) L Mean Platelet Volume 10.0 FL (6.5-10.1) Neutrophils (%) (Auto) % (45.0-75.0) Lymphocytes (%) (Auto) % (20.0-45.0) Monocytes (%) (Auto) % (1.0-10.0) Eosinophils (%) (Auto) % (0.0-3.0) Basophils (%) (Auto) % (0.0-2.0) Neutrophils % (Manual) Pending Lymphocytes % (Manual) Pending Platelet Estimate Pending Platelet Morphology Pending Sodium Level 141 MMOL/L (136-145) Potassium Level 3.8 MMOL/L (3.5-5.1) Chloride Level 104 MMOL/L (98-107) Carbon Dioxide Level 23 MMOL/L (21-32) Anion Gap 14 mmol/L (5-15) Blood Urea Nitrogen 115 mg/dL (7-18) H Creatinine 4.8 MG/DL (0.55-1.30) H Estimat Glomerular Filtration Rate mL/min (>60) Glucose Level 85 MG/DL (74-106) Uric Acid 5.5 MG/DL (2.6-7.2) Calcium Level 8.1 MG/DL (8.5-10.1) L Phosphorus Level 5.6 MG/DL (2.5-4.9) H Magnesium Level 2.6 MG/DL (1.8-2.4) H Total Bilirubin 0.4 MG/DL (0.2-1.0) Aspartate Amino Transf (AST/SGOT) 33 U/L (15-37) Alanine Aminotransferase (ALT/SGPT) 12 U/L (12-78) Alkaline Phosphatase 144 U/L (46-116) H C-Reactive Protein, Quantitative 13.3 mg/dL (0.00-0.90) H Pro-B-Type Natriuretic Peptide 9481 pg/mL (0-125) H Total Protein 5.0 G/DL (6.4-8.2) L Albumin 1.0 G/DL (3.4-5.0) L Globulin 4.0 g/dL Albumin/Globulin Ratio 0.2 (1.0-2.7) L Current Medications Medications (Trade) Dose Ordered Sig/Min Route PRN Reason Start Time Stop Time Status Last Admin Dose Admin Acetaminophen (Tylenol) 650 mg Q4H PRN RECTAL Mild Pain/Temp > 100.5 05/21/18 12:00 06/20/18 11:59 Cefepime HCl 2 gm/ Dextrose 55 ml @ 110 mls/hr Q24H IVPB 05/25/18 13:00 06/07/18 12:59 06/02/18 14:00 Chlorhexidine Gluconate (Tatyana-Hex 2%) 1 applic DAILY@2000 TOPIC 05/12/18 20:00 06/11/18 19:59 06/02/18 20:26 Dextrose 1,000 ml @ 0 mls/hr Q24H PRN IV PN interrupted or unavailable 05/25/18 21:00 06/24/18 20:59 Dextrose (Dextrose 50%) 25 ml Q30M PRN IV Hypoglycemia 05/26/18 12:45 06/25/18 12:44 Dextrose (Dextrose 50%) 50 ml Q30M PRN IV Hypoglycemia 05/26/18 12:45 06/25/18 12:44 05/31/18 21:12 Digoxin (Lanoxin) 0.125 mg 3XW IVP 06/03/18 09:00 07/03/18 08:59 Epoetin Bret (Procrit (for ESRD on dialysis)) 10,000 units SUN-SUN-SUN SUBQ 06/03/18 21:00 06/30/18 20:59 Fat Emulsion Intravenous 250 ml/Amino Acids/ Electrolytes/ Dextrose 2,050 ml @ 85.417 mls/ hr Q24H IV 06/01/18 20:00 07/01/18 19:59 06/02/18 19:05 Fluconazole/ Sodium Chloride 100 ml @ 100 mls/hr Q24H IV 05/28/18 18:00 06/08/18 17:59 06/02/18 18:36 Hydrocortisone (Solu-CORTEF) 25 mg Q12HR IV 06/01/18 21:00 07/01/18 20:59 06/02/18 20:27 Hydromorphone HCl (Dilaudid) 1 mg Q2H PRN IVP Severe Pain (Pain Scale 7-10) 05/31/18 10:00 06/05/18 09:59 06/02/18 05:04 Insulin Aspart (NovoLOG) EVERY 4 HOURS SUBQ 05/24/18 17:00 06/15/18 20:59 06/02/18 20:29 Insulin Detemir (Levemir) 14 units Q12HR SUBQ 06/03/18 09:00 06/23/18 17:59 Levofloxacin 50 ml @ 50 mls/hr Q24H IVPB 05/25/18 13:00 06/07/18 12:59 06/02/18 14:00 Metronidazole 100 ml @ 100 mls/hr Q8HR IVPB 05/25/18 14:00 06/07/18 13:59 06/03/18 05:29 Nitroglycerin (Ntg) 1 patch Q24H TDERMAL 05/29/18 20:00 06/28/18 19:59 06/02/18 20:27 Norepinephrine Bitartrate 8 mg/ Dextrose 500 ml @ 0 mls/hr Q24H IV 05/21/18 14:30 06/20/18 14:29 05/27/18 14:30 Ondansetron HCl (Zofran) 4 mg Q6H PRN IVP Nausea & Vomiting 05/15/18 23:30 06/14/18 23:29 Pantoprazole (Protonix) 40 mg EVERY 12 HOURS IVP 05/12/18 21:00 06/10/18 20:59 06/02/18 20:26 Phytonadione (Vitamin K) 10 mg ONCE A WEEK SUBQ 05/25/18 21:00 06/24/18 20:59 06/01/18 20:31 Vasopressin 100 units/Sodium Chloride 100 ml @ 0 mls/hr Q24H IV 05/22/18 11:30 06/21/18 11:29 05/23/18 17:47 Romie Hooks MD Jun 03, 2018 10:16
--- NOTE | 2018-06-03 10:24 | NUR ---
NURSE NOTES: called R.T to check pt RR 26-33bpm. Fi02 45%. 02sat 100. will check on pt.
--- NOTE | 2018-06-03 10:52 | NUR ---
NURSE NOTES: MD BURNHAM, HERE TO SEE PT.
--- NOTE | 2018-06-03 11:06 | General Progress Note ---
Progress Note Progress Note more awake today moving arms eyes tracking midline wound dressings intact drains with serous output leukocytosis improved anasarca HD today prognosis guarded cont current care wean vent when ready Tomas Chandler Jun 03, 2018 11:06
--- NOTE | 2018-06-03 11:08 | Nephrology Progress Note ---
Assessment/Plan Problem List: (1) ESRD (end stage renal disease) on dialysis (2) Perforated bowel (3) Hyponatremia (4) Major depression (5) Nausea & vomiting (6) H/O abdominal surgery Assessment: recent (7) Shock Assessment recent abdominal surgery hemodynamically stablized over night Presents with CHF and Low Na ESRD ACS DM HTN h/o GI bleed Depression Plan transfused 2 units more K in TPN Stop Mag in TPN remains intubated off pressors on TPN- adjust Na and K and Mag in TPN HD 05/29 - 2 liters remove HD in am 06/02 didnt tolerate will repeat 06/03 aim to correct lytes on steroids vented insulin for high BS hold dig , check levels, resume as needed Has abd surgery 05/15 Perforated bowel graft clotted , has a femoral felice right HOLD ALL MIND ALTERING MEDS - DC all po meds FLUID CHALLENGE pressors as needed BP HR Pain control discussed with RN and Dr Jones IV protonix Subjective ROS Limited/Unobtainable: Yes Objective Objective Last 24 Hour Vital Signs Date Time Temp Pulse Resp B/P (MAP) Pulse Ox O2 Delivery O2 Flow Rate FiO2 06/03/18 10:56 103 34 45 06/03/18 09:50 83 06/03/18 09:00 87 29 108/41 (63) 100 06/03/18 08:59 101 33 45 06/03/18 08:00 90 27 96/24 (48) 100 06/03/18 08:00 50 06/03/18 08:00 Mechanical Ventilator Endotracheal Tube Mechanical Ventilator 06/03/18 07:01 99 32 50 06/03/18 07:00 98 26 123/42 (69) 100 06/03/18 06:00 83 24 101/45 (63) 100 06/03/18 05:07 103 29 50 06/03/18 05:00 101 29 123/39 (67) 99 06/03/18 04:00 50 06/03/18 04:00 99 06/03/18 04:00 Mechanical Ventilator Endotracheal Tube Mechanical Ventilator 06/03/18 04:00 98.8 104 29 103/31 (55) 100 06/03/18 03:14 87 31 50 06/03/18 03:00 87 29 123/30 (61) 100 06/03/18 02:00 93 28 100/43 (62) 100 06/03/18 01:00 89 28 90/66 (74) 100 06/03/18 01:00 92 29 50 06/03/18 00:00 99.7 88 30 106/37 (60) 100 06/03/18 00:00 Mechanical Ventilator Endotracheal Tube Mechanical Ventilator 06/03/18 00:00 50 06/02/18 23:17 90 23 90 06/02/18 23:00 93 29 130/36 (67) 100 06/02/18 22:00 70 06/02/18 22:00 92 27 111/35 (60) 100 06/02/18 21:27 88 24 90 06/02/18 21:00 91 26 106/94 (98) 100 06/02/18 20:30 80 06/02/18 20:27 117/43 06/02/18 20:00 90 06/02/18 20:00 Mechanical Ventilator Endotracheal Tube Mechanical Ventilator 06/02/18 20:00 98.6 89 26 124/49 (74) 100 06/02/18 20:00 85 06/02/18 19:15 93 24 90 06/02/18 19:00 93 28 110/32 (58) 100 06/02/18 18:00 92 27 132/47 (75) 100 06/02/18 17:09 90 26 90 06/02/18 17:00 88 29 119/36 (63) 100 06/02/18 16:00 98.3 89 27 93/70 (78) 100 06/02/18 16:00 Mechanical Ventilator Endotracheal Tube Mechanical Ventilator 06/02/18 16:00 88 06/02/18 16:00 90 06/02/18 15:00 91 23 152/57 (88) 100 06/02/18 14:58 85 25 90 06/02/18 14:00 83 32 129/33 (65) 100 06/02/18 13:00 84 25 145/29 (67) 100 06/02/18 12:30 74 28 100 06/02/18 12:00 80 06/02/18 12:00 82 27 110/21 (50) 85 06/02/18 12:00 Mechanical Ventilator Endotracheal Tube Mechanical Ventilator 06/02/18 12:00 85 06/02/18 11:32 100 06/02/18 11:21 76 25 60 Intake and Output 06/02/18 06/03/18 19:00 07:00 Intake Total 1385.004 ml 1139.587 ml Output Total 1350 ml 150 ml Balance 35.004 ml 989.587 ml IV Total 1385.004 ml 1139.587 ml Stool Total 300 ml Drainage Total 550 ml 150 ml Hemodialysis UF 500 ml # Bowel Movements 3 3 Laboratory Tests 06/02/18 11:53: Arterial Blood pH 7.310L, Arterial Blood Partial Pressure CO2 50.7H, Arterial Blood Partial Pressure O2 50.7L, Arterial Blood HCO3 25.0, Arterial Blood Oxygen Saturation 84.0*L, Arterial Blood Base Excess -1.5, Luiz Test Positive 06/02/18 14:49: Arterial Blood pH 7.320L, Arterial Blood Partial Pressure CO2 45.5H, Arterial Blood Partial Pressure O2 137.9H, Arterial Blood HCO3 23.0, Arterial Blood Oxygen Saturation 97.8, Arterial Blood Base Excess -3.1L, Luiz Test Positive 06/03/18 05:30: White Blood Count 14.7H, Red Blood Count 3.09L, Hemoglobin 9.0L, Hematocrit 27.3L, Mean Corpuscular Volume 88, Mean Corpuscular Hemoglobin 29.3, Mean Corpuscular Hemoglobin Concent 33.2, Red Cell Distribution Width 15.5H, Platelet Count 108L, Mean Platelet Volume 10.0, Neutrophils (%) (Auto) , Lymphocytes (%) (Auto) , Monocytes (%) (Auto) , Eosinophils (%) (Auto) , Basophils (%) (Auto) , Differential Total Cells Counted 100, Neutrophils % ( Manual) 94H, Lymphocytes % (Manual) 2L, Monocytes % (Manual) 3, Eosinophils % ( Manual) 1, Basophils % (Manual) 0, Band Neutrophils 0, Platelet Estimate DecreasedL, Platelet Morphology Normal, Anisocytosis 1+, Sodium Level 141, Potassium Level 3.8, Chloride Level 104, Carbon Dioxide Level 23, Anion Gap 14, Blood Urea Nitrogen 115H, Creatinine 4.8H, Estimat Glomerular Filtration Rate , Glucose Level 85, Uric Acid 5.5, Calcium Level 8.1L, Phosphorus Level 5.6H, Magnesium Level 2.6H, Total Bilirubin 0.4, Aspartate Amino Transf (AST/SGOT) 33 , Alanine Aminotransferase (ALT/SGPT) 12, Alkaline Phosphatase 144H, C-Reactive Protein, Quantitative 13.3H, Pro-B-Type Natriuretic Peptide 9481H, Total Protein 5.0L, Albumin 1.0L, Globulin 4.0, Albumin/Globulin Ratio 0.2L Height (Feet): 5 Height (Inches): 5.00 Weight (Pounds): 187 EENT: other - vented Cardiovascular: tachycardia Respiratory/Chest: decreased breath sounds Abdomen: distended Objective no change Maurilio Arroyo MD Jun 03, 2018 11:08
--- NOTE | 2018-06-03 11:08 | NUR ---
NURSE NOTES:WOUND CARE NOTES:Aware of pt's pressure injury but unable to assess wound as surgeon states pt is unstable to be turned.
[2018-06-03] MEDS: HYDROmorphone 1mg/ml Carpuject IVP PRN (11:20)
[2018-06-03] MEDS: Pantoprazole Inj IVP SCH ×2 (11:20→20:50)
[2018-06-03] MEDS: Vasopressin 100 UNITS in NS 95 ML IV SCH (11:30)
--- NOTE | 2018-06-03 11:34 | Pulmonolgy Critical Care Note ---
Critical Care - Asmt/Plan Problems: (1) Shock (2) Hypoxemia (3) Elevated d-dimer Assessment & Plan: S/P neg CT-A + UE DVT (4) Hypotension (5) Atrial fibrillation (6) ESRD (end stage renal disease) on dialysis (7) ACS (acute coronary syndrome) (8) Sacral decubitus ulcer, stage III (9) S/P cholecystectomy (10) Serratia sepsis (11) S/P exploratory laparotomy (12) Perforated viscus (13) Thrombocythemia Assessment/Plan: -Continue AC 20 PC delta P 25 -Tirate down FiO2 and PEEP to keep SaO2 > 90% -CXR -Off NE -Decrease HC to 12.5 BID and taper -Continue current vent settings -HD per renal as able -IVUH held, start @ least Hep SQ when able -Monitor CBC, transfuse if Hb < 8 -Monitor for bleeding -Flucon, Flagyl and Cefepime per ID, F/U Cx's, monitor WCt -NPO , TPN, start TF's when ok with surgery -F/U surgery recs -FC D/W Dr. Hamm D/W RN and RT CCT 45 Critical Care - Objective Last 24 Hour Vital Signs Date Time Temp Pulse Resp B/P (MAP) Pulse Ox O2 Delivery O2 Flow Rate FiO2 06/03/18 10:56 103 34 45 06/03/18 09:50 83 06/03/18 09:00 87 29 108/41 (63) 100 06/03/18 08:59 101 33 45 06/03/18 08:00 90 27 96/24 (48) 100 06/03/18 08:00 50 06/03/18 08:00 Mechanical Ventilator Endotracheal Tube Mechanical Ventilator 06/03/18 07:01 99 32 50 06/03/18 07:00 98 26 123/42 (69) 100 06/03/18 06:00 83 24 101/45 (63) 100 06/03/18 05:07 103 29 50 06/03/18 05:00 101 29 123/39 (67) 99 06/03/18 04:00 50 06/03/18 04:00 99 06/03/18 04:00 Mechanical Ventilator Endotracheal Tube Mechanical Ventilator 06/03/18 04:00 98.8 104 29 103/31 (55) 100 06/03/18 03:14 87 31 50 06/03/18 03:00 87 29 123/30 (61) 100 06/03/18 02:00 93 28 100/43 (62) 100 06/03/18 01:00 89 28 90/66 (74) 100 06/03/18 01:00 92 29 50 06/03/18 00:00 99.7 88 30 106/37 (60) 100 06/03/18 00:00 Mechanical Ventilator Endotracheal Tube Mechanical Ventilator 06/03/18 00:00 50 06/02/18 23:17 90 23 90 06/02/18 23:00 93 29 130/36 (67) 100 06/02/18 22:00 70 06/02/18 22:00 92 27 111/35 (60) 100 06/02/18 21:27 88 24 90 06/02/18 21:00 91 26 106/94 (98) 100 06/02/18 20:30 80 06/02/18 20:27 117/43 06/02/18 20:00 90 06/02/18 20:00 Mechanical Ventilator Endotracheal Tube Mechanical Ventilator 06/02/18 20:00 98.6 89 26 124/49 (74) 100 06/02/18 20:00 85 06/02/18 19:15 93 24 90 06/02/18 19:00 93 28 110/32 (58) 100 06/02/18 18:00 92 27 132/47 (75) 100 06/02/18 17:09 90 26 90 06/02/18 17:00 88 29 119/36 (63) 100 06/02/18 16:00 98.3 89 27 93/70 (78) 100 06/02/18 16:00 Mechanical Ventilator Endotracheal Tube Mechanical Ventilator 06/02/18 16:00 88 06/02/18 16:00 90 06/02/18 15:00 91 23 152/57 (88) 100 06/02/18 14:58 85 25 90 06/02/18 14:00 83 32 129/33 (65) 100 06/02/18 13:00 84 25 145/29 (67) 100 06/02/18 12:30 74 28 100 06/02/18 12:00 80 06/02/18 12:00 82 27 110/21 (50) 85 06/02/18 12:00 Mechanical Ventilator Endotracheal Tube Mechanical Ventilator 06/02/18 12:00 85 Status: somnolent, other - on vent sedated Condition: improving HEENT: atraumatic, normocephalic, other - ETT Neck: full ROM Lungs: rhonchi Heart: HR/BP stable Abdomen: soft, non-tender, active bowel sounds, other - dressed VELVET Extremities: other - 1-2+ EMERITA Decubiti: location - sacrum, stage - DTI Micro: Microbiology Date/Time Source Procedure Growth Status 06/01/18 17:00 Stool Clostridium difficile Toxin Assay - Final Complete Accucheck: 72 Blood Sugars: BS controlled Critical Care - Subjective ROS Limited/Unobtainable: Yes ICU Day: 20 Intubation Day: 5 Interval Events: FiO2 down to 45 still on PEEP 10 stable on vent getting dialyzed HH stable WCt better on TPN lethargic but arousable Condition: critical IV Access: central EKG Rhythm: Sinus Rhythm FI02: 45 Vent Support Breath Rate: 20 Vent Support Mode: AC Vent Tidal Volume: 500 Sputum Amount: Scant PEEP: 10.0 PIP: 36 Fluids: SLIV Drips: N?A Tube Feeding Amount: 0 I&O: Intake and Output 06/02/18 06/03/18 19:00 07:00 Intake Total 1385.004 ml 1139.587 ml Output Total 1350 ml 150 ml Balance 35.004 ml 989.587 ml IV Total 1385.004 ml 1139.587 ml Stool Total 300 ml Drainage Total 550 ml 150 ml Hemodialysis UF 500 ml # Bowel Movements 3 3 Subjective: CROW ET-Tube: 7.5 ET Position: 24 Labs: Laboratory Tests Test 06/02/18 11:53 06/02/18 14:49 06/03/18 05:30 Arterial Blood pH 7.310 (7.350-7.450) 7.320 (7.350-7.450) Arterial Blood Partial Pressure CO2 50.7 mmHg (35.0-45.0) H 45.5 mmHg (35.0-45.0) H Arterial Blood Partial Pressure O2 50.7 mmHg (75.0-100.0) L 137.9 mmHg (75.0-100.0) H Arterial Blood HCO3 25.0 mmol/L (22.0-26.0) 23.0 mmol/L (22.0-26.0) Arterial Blood Oxygen Saturation 84.0 % (95-100) *L 97.8 % (95-100) Arterial Blood Base Excess -1.5 (-2-2) -3.1 (-2-2) L Luiz Test Positive Positive White Blood Count 14.7 K/UL (4.8-10.8) H Red Blood Count 3.09 M/UL (4.70-6.10) L Hemoglobin 9.0 G/DL (14.2-18.0) L Hematocrit 27.3 % (42.0-52.0) L Mean Corpuscular Volume 88 FL (80-99) Mean Corpuscular Hemoglobin 29.3 PG (27.0-31.0) Mean Corpuscular Hemoglobin Concent 33.2 G/DL (32.0-36.0) Red Cell Distribution Width 15.5 % (11.6-14.8) H Platelet Count 108 K/UL (150-450) L Mean Platelet Volume 10.0 FL (6.5-10.1) Neutrophils (%) (Auto) % (45.0-75.0) Lymphocytes (%) (Auto) % (20.0-45.0) Monocytes (%) (Auto) % (1.0-10.0) Eosinophils (%) (Auto) % (0.0-3.0) Basophils (%) (Auto) % (0.0-2.0) Differential Total Cells Counted 100 Neutrophils % (Manual) 94 % (45-75) H Lymphocytes % (Manual) 2 % (20-45) L Monocytes % (Manual) 3 % (1-10) Eosinophils % (Manual) 1 % (0-3) Basophils % (Manual) 0 % (0-2) Band Neutrophils 0 % (0-8) Platelet Estimate Decreased L Platelet Morphology Normal Anisocytosis 1+ Sodium Level 141 MMOL/L (136-145) Potassium Level 3.8 MMOL/L (3.5-5.1) Chloride Level 104 MMOL/L (98-107) Carbon Dioxide Level 23 MMOL/L (21-32) Anion Gap 14 mmol/L (5-15) Blood Urea Nitrogen 115 mg/dL (7-18) H Creatinine 4.8 MG/DL (0.55-1.30) H Estimat Glomerular Filtration Rate mL/min (>60) Glucose Level 85 MG/DL (74-106) Uric Acid 5.5 MG/DL (2.6-7.2) Calcium Level 8.1 MG/DL (8.5-10.1) L Phosphorus Level 5.6 MG/DL (2.5-4.9) H Magnesium Level 2.6 MG/DL (1.8-2.4) H Total Bilirubin 0.4 MG/DL (0.2-1.0) Aspartate Amino Transf (AST/SGOT) 33 U/L (15-37) Alanine Aminotransferase (ALT/SGPT) 12 U/L (12-78) Alkaline Phosphatase 144 U/L (46-116) H C-Reactive Protein, Quantitative 13.3 mg/dL (0.00-0.90) H Pro-B-Type Natriuretic Peptide 9481 pg/mL (0-125) H Total Protein 5.0 G/DL (6.4-8.2) L Albumin 1.0 G/DL (3.4-5.0) L Globulin 4.0 g/dL Albumin/Globulin Ratio 0.2 (1.0-2.7) L Daryl Jones MD Jun 03, 2018 11:34
[2018-06-03] MEDS ORDERED: Heparin Sod 1000 units/ml 10ml INJ SCH (11:51)
--- NOTE | 2018-06-03 12:46 | Diagnostic Imaging Report ---
Indication: Dyspnea Comparison: 05/31/2018 A single view chest radiograph was obtained. Findings: Complete opacification of the left hemithorax demonstrated. Some shift of the trachea and heart toward the left side noted as well indicative of volume loss and atelectasis. No change otherwise. Endotracheal tube and left central venous catheter unchanged. Interstitial edema suspected within the right lung. IMPRESSION: Development of the left hemithorax opacification probably combination of atelectasis and effusion. Some volume loss noted.
--- NOTE | 2018-06-03 13:20 | Diagnostic Imaging Report ---
Indication: Dyspnea Comparison: 06/02/2018 A single view chest radiograph was obtained. Findings: Tubes and lines are satisfactory unchanged. Cardiomegaly is present. Left lung has reexpanded with residual parenchymal density at the left lung base. Interstitial pulmonary edema noted currently. IMPRESSION: Reexpansion of the most of the left lung. CHF Left basilar residual infiltrate versus atelectasis
[2018-06-03] MEDS: Cefepime HCl 2 GM in D5W 55 ML IVPB SCH (14:22)
[2018-06-03] MEDS: Norepinephrine Bitartrate 8 MG in D5W 500ml 492 ML IV SCH ×2 (14:30→19:22)
--- NOTE | 2018-06-03 14:41 | NUR ---
RESPIRATORY NOTE: Per Dr. Jones, Fio2 and Peep have been adjusted. Fio2 now 40% and decreased peep to 8 cmH2o. RN, Jenna joe.
[2018-06-03] MEDS ORDERED: Tubing Blood Filter IV ONE (15:01)
[2018-06-03] MEDS ORDERED: NS 275ml ONE (15:01)
--- NOTE | 2018-06-03 15:55 | Cardiac Electrophysiology PN ---
Assessment/Plan Assessment/Plan 1. Atrial fib/flutter with RVR In SR. Off Amio drip for bradycardia. In SR Can't switch to po as NPO On dig 0.125 mg iv MWF. 2. Troponin leak due to renal failure and nonspecific EKG showed old inferior and anterior wall DE, but no ischemia. ECHO normal LV function 3. End-stage renal disease, on hemodialysis per Dr. Arroyo. 4. Septic shock, off Levophed 2D Echo EF 60% and PA pressure 63 ? PE. DD 35.2. Unstable for chest CT angio. Off heparin drip for surgery 5. Hx of lap matthew. S/P SB resection 05/15/18 with drain S/P redo surgery 05/23/18 that showed Anastomotic leak. S/P surgery again by Dr. Chandler 05/27/18 On TPN and Abx 6. Respiratory failure, reintubated on the vent. 7. History of kidney stones. 8. History of psychiatric problems, dementia. SAW RN Subjective Subjective In ICU on the vent. Off Amiodarone drip due to bradycardia. Off pressors. In SR. Had HD. On Vent on 40% Fio2 Objective Last 24 Hour Vital Signs Date Time Temp Pulse Resp B/P (MAP) Pulse Ox O2 Delivery O2 Flow Rate FiO2 06/03/18 15:00 89 21 109/41 (63) 100 06/03/18 15:00 40 06/03/18 14:39 84 21 40 06/03/18 14:00 83 21 102/42 (62) 100 06/03/18 13:45 Mechanical Ventilator Mechanical Ventilator 06/03/18 13:00 84 22 96/32 (53) 100 06/03/18 12:41 85 24 45 06/03/18 12:00 45 06/03/18 12:00 Mechanical Ventilator Mechanical Ventilator 06/03/18 12:00 87 22 87/19 (41) 100 06/03/18 11:00 100 31 89/41 (57) 100 06/03/18 10:56 103 34 45 06/03/18 10:00 98.7 88 29 104/31 (55) 100 06/03/18 09:50 83 06/03/18 09:00 87 29 108/41 (63) 100 06/03/18 08:59 101 33 45 06/03/18 08:00 90 27 96/24 (48) 100 06/03/18 08:00 50 06/03/18 08:00 90 06/03/18 08:00 Mechanical Ventilator Endotracheal Tube Mechanical Ventilator 06/03/18 07:01 99 32 50 06/03/18 07:00 98 26 123/42 (69) 100 06/03/18 06:00 83 24 101/45 (63) 100 06/03/18 05:07 103 29 50 06/03/18 05:00 101 29 123/39 (67) 99 06/03/18 04:00 50 06/03/18 04:00 99 06/03/18 04:00 Mechanical Ventilator Endotracheal Tube Mechanical Ventilator 06/03/18 04:00 98.8 104 29 103/31 (55) 100 06/03/18 03:14 87 31 50 06/03/18 03:00 87 29 123/30 (61) 100 06/03/18 02:00 93 28 100/43 (62) 100 06/03/18 01:00 89 28 90/66 (74) 100 06/03/18 01:00 92 29 50 06/03/18 00:00 99.7 88 30 106/37 (60) 100 06/03/18 00:00 Mechanical Ventilator Endotracheal Tube Mechanical Ventilator 06/03/18 00:00 50 06/02/18 23:17 90 23 90 06/02/18 23:00 93 29 130/36 (67) 100 06/02/18 22:00 70 06/02/18 22:00 92 27 111/35 (60) 100 06/02/18 21:27 88 24 90 06/02/18 21:00 91 26 106/94 (98) 100 06/02/18 20:30 80 06/02/18 20:27 117/43 06/02/18 20:00 90 06/02/18 20:00 Mechanical Ventilator Endotracheal Tube Mechanical Ventilator 06/02/18 20:00 98.6 89 26 124/49 (74) 100 06/02/18 20:00 85 06/02/18 19:15 93 24 90 06/02/18 19:00 93 28 110/32 (58) 100 06/02/18 18:00 92 27 132/47 (75) 100 06/02/18 17:09 90 26 90 06/02/18 17:00 88 29 119/36 (63) 100 06/02/18 16:00 98.3 89 27 93/70 (78) 100 06/02/18 16:00 Mechanical Ventilator Endotracheal Tube Mechanical Ventilator 06/02/18 16:00 88 06/02/18 16:00 90 Intake and Output 06/02/18 06/03/18 19:00 07:00 Intake Total 1385.004 ml 1139.587 ml Output Total 1350 ml 150 ml Balance 35.004 ml 989.587 ml IV Total 1385.004 ml 1139.587 ml Stool Total 300 ml Drainage Total 550 ml 150 ml Hemodialysis UF 500 ml # Bowel Movements 3 3 Laboratory Tests Test 06/03/18 05:30 06/03/18 12:32 White Blood Count 14.7 K/UL (4.8-10.8) H Red Blood Count 3.09 M/UL (4.70-6.10) L Hemoglobin 9.0 G/DL (14.2-18.0) L Hematocrit 27.3 % (42.0-52.0) L Mean Corpuscular Volume 88 FL (80-99) Mean Corpuscular Hemoglobin 29.3 PG (27.0-31.0) Mean Corpuscular Hemoglobin Concent 33.2 G/DL (32.0-36.0) Red Cell Distribution Width 15.5 % (11.6-14.8) H Platelet Count 108 K/UL (150-450) L Mean Platelet Volume 10.0 FL (6.5-10.1) Neutrophils (%) (Auto) % (45.0-75.0) Lymphocytes (%) (Auto) % (20.0-45.0) Monocytes (%) (Auto) % (1.0-10.0) Eosinophils (%) (Auto) % (0.0-3.0) Basophils (%) (Auto) % (0.0-2.0) Differential Total Cells Counted 100 Neutrophils % (Manual) 94 % (45-75) H Lymphocytes % (Manual) 2 % (20-45) L Monocytes % (Manual) 3 % (1-10) Eosinophils % (Manual) 1 % (0-3) Basophils % (Manual) 0 % (0-2) Band Neutrophils 0 % (0-8) Platelet Estimate Decreased L Platelet Morphology Normal Anisocytosis 1+ Sodium Level 141 MMOL/L (136-145) Potassium Level 3.8 MMOL/L (3.5-5.1) Chloride Level 104 MMOL/L (98-107) Carbon Dioxide Level 23 MMOL/L (21-32) Anion Gap 14 mmol/L (5-15) Blood Urea Nitrogen 115 mg/dL (7-18) H Creatinine 4.8 MG/DL (0.55-1.30) H Estimat Glomerular Filtration Rate mL/min (>60) Glucose Level 85 MG/DL (74-106) Uric Acid 5.5 MG/DL (2.6-7.2) Calcium Level 8.1 MG/DL (8.5-10.1) L Phosphorus Level 5.6 MG/DL (2.5-4.9) H Magnesium Level 2.6 MG/DL (1.8-2.4) H Total Bilirubin 0.4 MG/DL (0.2-1.0) Aspartate Amino Transf (AST/SGOT) 33 U/L (15-37) Alanine Aminotransferase (ALT/SGPT) 12 U/L (12-78) Alkaline Phosphatase 144 U/L (46-116) H C-Reactive Protein, Quantitative 13.3 mg/dL (0.00-0.90) H 13.6 mg/dL (0.00-0.90) H Pro-B-Type Natriuretic Peptide 9481 pg/mL (0-125) H Total Protein 5.0 G/DL (6.4-8.2) L Albumin 1.0 G/DL (3.4-5.0) L Globulin 4.0 g/dL Albumin/Globulin Ratio 0.2 (1.0-2.7) L Microbiology Date/Time Source Procedure Growth Status 06/01/18 17:00 Stool Clostridium difficile Toxin Assay - Final Complete Objective HEENT: Orally intubated Cardiovascular: Sinus tachycardia Respiratory/Chest: Coarse rhonchi Abdomen: Post op with 2 VELVET drain Extremities: 1 plus edema. Right groin dialysis catheter Everett Stephenson MD Jun 03, 2018 15:55
--- NOTE | 2018-06-03 16:00 | NUR ---
NURSE NOTES: while preparing to clean and reposition pt, noted large amount of bright blood in rectal tube, large puddle under pt and sheet. Noted large clots. pt BP stable at this time, at 117/56 hr 100's. Contacted MD Blanco regarding findings. Received order to input CBC for am, remove rectal tube and monitor for changes. proceeded to clean pt up.
--- NOTE | 2018-06-03 16:21 | General Progress Note ---
Assessment/Plan Assessment/Plan # Anemia of chronic disease due to underlying chronic medical issues, multifactorial --> Anemia w/u has been reviewed, reordered and ferritin is >2000 --> trend 10.3-->7.6-->8.9-->10.3-->9.5-->9.2-->8.3-->7.9-->8-->7.1-->9.-->9 --> not bleeding currently --> okay to give blood and products as patient unable to give consent, 2MD consent done --> continue Procrit 3x a week (started on 05/30) 3,000 sq dose # Thrombocytopenia due to septic shock --> vit K given for coagulopathy --> plt 163k-->116k-->83k-->98k-->105k-->109k-->108 # Small bowel perforation, s/p bowel resection, with Gram negative sepsis is on abx In ICU s/p Small bowel resection --> on broad spectrum abx --> on vanc/cefepime as per id--> now changed to zosyn, flagyl, micafungin--> on cefepime, levaquin and change per id --> s/p sb resection on 05/15, appreciate surg recs --> off pressors now # Hypofibrinoginemia -- potentially consumptive process given sepsis --> cryo given weeek of 05/23 --> fibrinogen 541 --> okay to give blood and products as patient unable to give consent, 2MD consent done # Lower extremity edema with an elevated BNP in a patient with renal failure on hemodialysis. --> on HD per Dr. Arroyo. --> currently has improved, continue to monitor # Atrial fib w rvr/flutter, being seen by cards, has converted to sr --> Cardiology is following, appreciate recs, echo was reviewed --> Currently denies any chest pain, completely rule out ACS --> EKG showed old inferior and anterior wall ND, but no ischemia --> ECHO with normal LV function --> now off hep gtt now --> off coumadin given drop in h/h # End-stage renal disease, on hemodialysis and also hyponatremia. --> Nephro is following, appreciate recs. HD approx 3x a week --> On intermittent HD # Respiratory failure on a vent, intubated # Mental status/confusion --> worsened at this time The time of note does not necessarily reflect the time of encounter Greatly appreciate consultation! Subjective ROS Limited/Unobtainable: Yes Allergies: Coded Allergies: No Known Allergies (Unverified , 11/12/12) Subjective 05/12: Pt resting in bed. No acute events. H/H stable. On abx. VS stable. 05/13: on pressors, on hep gtt, on steriods, abx, got hd, felice catheter in place : CT-A was negative, hep gtt as per cards, abg reviewed, moaning on exam, on ceftriaxone 05/15 :Pt remains in ICU. Currently undergoing HD. Pt on 2 cardiac drips for elevated Bp. WBC remains elevated. H/H stable. 05/16: s/p sb resection, In ICU s/p Small bowel resection on Amiodarone and Levophed drip. HR around 100. 05/17: Orally intubated on Ac 16, Vt 500, P 5 fio2 30%. Pt continues NPO at this time. Right upper arm and right FA IV sites patent and intact at this time. Amio gtt running 05/18: Pt remains in ICU. Pt for STAT HD. WBC remains elevated, afebrile. 05/19: getting hd periodically, no other events, vent to be weaned, labs reviewed, on dilaudid, ativan and fentanyl per pulm 05/21: prognosis is more guarded, no events to report, no f/c, but on two pressors now, on hep gtt for antonio thrombosis, hd as well 3x/week 12: on 2 pressors, seen by cards, renal, ryan drain draining improved, still on vent, converted to sr, on amio gtt, lactic acid downtrending, minimally responsive, on heparin gtt as well for antonio thrombus 05/23: patient to go to OR [facility] potential washout, ostomy, and line placement, fibrinogen low, needs cryoprecipirate, will also check inr/pt, cbc reviewed, electrolytes noted 05/24: Patient continues to be intubated on vent. He is s/p exploratory lap with wound washout and wound vac placement. 05/25: Pt is seen in the room, resting in bed. doing well since wound vac change , cbc reviewed, plt 163 05/26: Patient is is seen at bedside, intubated on vent. Wound vac still applied. No signs of pain at this time. Plt 116 . 1.7: again off pressors, plt somewhat lower, monitoring meds, on amio, antifungal as well, could be contributing, platelets and vitk given 05/28: had more surgeries yesterday with Right hemicolectomy, omentectomy & removal of wound-vac, off pressors, HD 05/29/18, on vent, stable 05/29: extubated but reintubated, on cefepime at this time, amiodarone, being seen by cards, procrit started 05/30: Pt is in ICU, Extubated and reintubated yesterday.Off Levophed and Heparin drip since surgery. On the Vent. 05/31: no events, remains on the vent, off pressors, received hd today 2.5L were removed 06/01: no fevers or chills, receiving hd as needed, on 1 pressors, not tolerating SBT very well 06/02: on a vent, no f/c noted, remains in the icu, poorly responsive at this time 06/03:Pt seen at bedside, in ICU on the vent. Off Amiodarone drip due to bradycardia. Off pressors, Had HD, leukocytosis trending down 14 today, plt 108 Objective Last 24 Hour Vital Signs Date Time Temp Pulse Resp B/P (MAP) Pulse Ox O2 Delivery O2 Flow Rate FiO2 06/03/18 16:00 Mechanical Ventilator Mechanical Ventilator 06/03/18 16:00 89 06/03/18 15:00 89 21 109/41 (63) 100 06/03/18 15:00 40 06/03/18 14:39 84 21 40 06/03/18 14:00 83 21 102/42 (62) 100 06/03/18 13:45 Mechanical Ventilator Mechanical Ventilator 06/03/18 13:00 84 22 96/32 (53) 100 06/03/18 12:41 85 24 45 06/03/18 12:00 45 06/03/18 12:00 Mechanical Ventilator Mechanical Ventilator 06/03/18 12:00 87 22 87/19 (41) 100 06/03/18 11:00 100 31 89/41 (57) 100 06/03/18 10:56 103 34 45 06/03/18 10:00 98.7 88 29 104/31 (55) 100 06/03/18 09:50 83 06/03/18 09:00 87 29 108/41 (63) 100 06/03/18 08:59 101 33 45 06/03/18 08:00 90 27 96/24 (48) 100 06/03/18 08:00 50 06/03/18 08:00 90 06/03/18 08:00 Mechanical Ventilator Endotracheal Tube Mechanical Ventilator 06/03/18 07:01 99 32 50 06/03/18 07:00 98 26 123/42 (69) 100 06/03/18 06:00 83 24 101/45 (63) 100 06/03/18 05:07 103 29 50 06/03/18 05:00 101 29 123/39 (67) 99 06/03/18 04:00 50 06/03/18 04:00 99 06/03/18 04:00 Mechanical Ventilator Endotracheal Tube Mechanical Ventilator 06/03/18 04:00 98.8 104 29 103/31 (55) 100 06/03/18 03:14 87 31 50 06/03/18 03:00 87 29 123/30 (61) 100 06/03/18 02:00 93 28 100/43 (62) 100 06/03/18 01:00 89 28 90/66 (74) 100 06/03/18 01:00 92 29 50 06/03/18 00:00 99.7 88 30 106/37 (60) 100 06/03/18 00:00 Mechanical Ventilator Endotracheal Tube Mechanical Ventilator 06/03/18 00:00 50 06/02/18 23:17 90 23 90 06/02/18 23:00 93 29 130/36 (67) 100 06/02/18 22:00 70 06/02/18 22:00 92 27 111/35 (60) 100 06/02/18 21:27 88 24 90 06/02/18 21:00 91 26 106/94 (98) 100 06/02/18 20:30 80 06/02/18 20:27 117/43 06/02/18 20:00 90 06/02/18 20:00 Mechanical Ventilator Endotracheal Tube Mechanical Ventilator 06/02/18 20:00 98.6 89 26 124/49 (74) 100 06/02/18 20:00 85 06/02/18 19:15 93 24 90 06/02/18 19:00 93 28 110/32 (58) 100 06/02/18 18:00 92 27 132/47 (75) 100 06/02/18 17:09 90 26 90 06/02/18 17:00 88 29 119/36 (63) 100 Intake and Output 06/02/18 06/03/18 19:00 07:00 Intake Total 1385.004 ml 1139.587 ml Output Total 1350 ml 150 ml Balance 35.004 ml 989.587 ml IV Total 1385.004 ml 1139.587 ml Stool Total 300 ml Drainage Total 550 ml 150 ml Hemodialysis UF 500 ml # Bowel Movements 3 3 Laboratory Tests 06/03/18 05:30: White Blood Count 14.7H, Red Blood Count 3.09L, Hemoglobin 9.0L, Hematocrit 27.3L, Mean Corpuscular Volume 88, Mean Corpuscular Hemoglobin 29.3, Mean Corpuscular Hemoglobin Concent 33.2, Red Cell Distribution Width 15.5H, Platelet Count 108L, Mean Platelet Volume 10.0, Neutrophils (%) (Auto) , Lymphocytes (%) (Auto) , Monocytes (%) (Auto) , Eosinophils (%) (Auto) , Basophils (%) (Auto) , Differential Total Cells Counted 100, Neutrophils % ( Manual) 94H, Lymphocytes % (Manual) 2L, Monocytes % (Manual) 3, Eosinophils % ( Manual) 1, Basophils % (Manual) 0, Band Neutrophils 0, Platelet Estimate DecreasedL, Platelet Morphology Normal, Anisocytosis 1+, Sodium Level 141, Potassium Level 3.8, Chloride Level 104, Carbon Dioxide Level 23, Anion Gap 14, Blood Urea Nitrogen 115H, Creatinine 4.8H, Estimat Glomerular Filtration Rate , Glucose Level 85, Uric Acid 5.5, Calcium Level 8.1L, Phosphorus Level 5.6H, Magnesium Level 2.6H, Total Bilirubin 0.4, Aspartate Amino Transf (AST/SGOT) 33 , Alanine Aminotransferase (ALT/SGPT) 12, Alkaline Phosphatase 144H, C-Reactive Protein, Quantitative 13.3H, Pro-B-Type Natriuretic Peptide 9481H, Total Protein 5.0L, Albumin 1.0L, Globulin 4.0, Albumin/Globulin Ratio 0.2L 06/03/18 12:32: C-Reactive Protein, Quantitative 13.6H Height (Feet): 5 Height (Inches): 5.00 Weight (Pounds): 190 Objective PE: VITAL SIGNS: Have been reviewed HEENT: PERRLA. intubated, vent++ NECK: Supple. No lymphadenopathy CHEST: ++ intubated CARDIOVASCULAR: Tachycardic. GASTROINTESTINAL: Distended. Positive bowel sounds. Nontender. No organomegaly. ++ ryan drain in place EXTREMITY: 2+ edema. NEURO: responsive to simple command Reinaldo Leon MD Jun 03, 2018 16:21
--- NOTE | 2018-06-03 16:30 | NUR ---
NURSE NOTES: Naren spoke with MD Chandler. arrived on unit to exam pt, blood from upper GI tract. continue to monitor. pt BP 56/35 HR112. Received order to input 2units PRBC'S/s, 2units FFTs, check CBC 1 hr post transfusions. Addendum: 06/03/18 at 2020 by Katina Araujo RN INCLUDED ORDER TO REINSERT OGT.
--- NOTE | 2018-06-03 17:00 | NUR ---
NURSE NOTES: [employer] HERE FOR STAT KUB FOR OGT PLACEMENT.
[2018-06-03] MEDS ORDERED: Tubing IV Secondary IV ONE (17:05)
--- NOTE | 2018-06-03 17:20 | NUR ---
CASE MANAGEMENT: REVIEW SI: ESRD ON HD . ACS . A-FIB RIGHT FEMORAL TEMPORARY HEMODIALYSIS CATHETER INSERTION 05/13 T 98.7 HR 103 RR 34 BP 87/19 SAT 100% MECH VENT FIO2 45 WBC 14.7 H/H 9.0/27.3 BUN 115 CR 4.8 IS: TPN IV Q24HR CEFEPIME IV Q24HR LEVOFLOXACIN IV Q24HR VASOPRESSIN IV Q24HR LEVOPHED IV Q24HR FLAGYL IV Q8HR ICU STATUS DCP: PATIENT IS FROM HOME
--- NOTE | 2018-06-03 18:00 | NUR ---
NURSE NOTES: PT VERY HYPOTENSIVE,LYING SUPINE. LEVOPHED ADMINISTRATION REINSTATED.
--- NOTE | 2018-06-03 18:06 | General Progress Note ---
Assessment/Plan Assessment/Plan (1) Abdominal pain (2) S/p Lap Cholecystectomy (3) Encephalopathy /septic shock (4) ESRD on hemodialysis (5) S/p emergent exploratory laboratory small bowel resection omentectomy due to small bowel perforation in distal ileum Patient to be continued on Dilaudid reduced to 0.5mg IV Q4H PRN severe pain and Tylenol. Parameters to be continued. D/w Dr. Busby and he concurred. Subjective Date patient seen: Jun 03, 2018 Time patient seen: 05:30 - pm ROS Limited/Unobtainable: Yes Allergies: Coded Allergies: No Known Allergies (Unverified , 11/12/12) Subjective Patient is in bed intubated on vent. Unstable d/w nurse. One Dose of Dilaudid .5 given today. Objective Last 24 Hour Vital Signs Date Time Temp Pulse Resp B/P (MAP) Pulse Ox O2 Delivery O2 Flow Rate FiO2 06/03/18 17:19 101 31 40 06/03/18 16:00 Mechanical Ventilator Mechanical Ventilator 06/03/18 16:00 89 06/03/18 15:00 89 21 109/41 (63) 100 06/03/18 15:00 40 06/03/18 14:39 84 21 40 06/03/18 14:00 83 21 102/42 (62) 100 06/03/18 13:45 Mechanical Ventilator Mechanical Ventilator 06/03/18 13:00 84 22 96/32 (53) 100 06/03/18 12:41 85 24 45 06/03/18 12:00 45 06/03/18 12:00 Mechanical Ventilator Mechanical Ventilator 06/03/18 12:00 87 22 87/19 (41) 100 06/03/18 11:00 100 31 89/41 (57) 100 06/03/18 10:56 103 34 45 06/03/18 10:00 98.7 88 29 104/31 (55) 100 06/03/18 09:50 83 06/03/18 09:00 87 29 108/41 (63) 100 06/03/18 08:59 101 33 45 06/03/18 08:00 90 27 96/24 (48) 100 06/03/18 08:00 50 06/03/18 08:00 90 06/03/18 08:00 Mechanical Ventilator Endotracheal Tube Mechanical Ventilator 06/03/18 07:01 99 32 50 06/03/18 07:00 98 26 123/42 (69) 100 06/03/18 06:00 83 24 101/45 (63) 100 06/03/18 05:07 103 29 50 06/03/18 05:00 101 29 123/39 (67) 99 06/03/18 04:00 50 06/03/18 04:00 99 06/03/18 04:00 Mechanical Ventilator Endotracheal Tube Mechanical Ventilator 06/03/18 04:00 98.8 104 29 103/31 (55) 100 06/03/18 03:14 87 31 50 06/03/18 03:00 87 29 123/30 (61) 100 06/03/18 02:00 93 28 100/43 (62) 100 06/03/18 01:00 89 28 90/66 (74) 100 06/03/18 01:00 92 29 50 06/03/18 00:00 99.7 88 30 106/37 (60) 100 06/03/18 00:00 Mechanical Ventilator Endotracheal Tube Mechanical Ventilator 06/03/18 00:00 50 06/02/18 23:17 90 23 90 06/02/18 23:00 93 29 130/36 (67) 100 06/02/18 22:00 70 06/02/18 22:00 92 27 111/35 (60) 100 06/02/18 21:27 88 24 90 06/02/18 21:00 91 26 106/94 (98) 100 06/02/18 20:30 80 06/02/18 20:27 117/43 06/02/18 20:00 90 06/02/18 20:00 Mechanical Ventilator Endotracheal Tube Mechanical Ventilator 06/02/18 20:00 98.6 89 26 124/49 (74) 100 06/02/18 20:00 85 06/02/18 19:15 93 24 90 06/02/18 19:00 93 28 110/32 (58) 100 Intake and Output 06/02/18 06/03/18 19:00 07:00 Intake Total 1385.004 ml 1139.587 ml Output Total 1350 ml 150 ml Balance 35.004 ml 989.587 ml IV Total 1385.004 ml 1139.587 ml Stool Total 300 ml Drainage Total 550 ml 150 ml Hemodialysis UF 500 ml # Bowel Movements 3 3 Laboratory Tests 06/03/18 05:30: White Blood Count 14.7H, Red Blood Count 3.09L, Hemoglobin 9.0L, Hematocrit 27.3L, Mean Corpuscular Volume 88, Mean Corpuscular Hemoglobin 29.3, Mean Corpuscular Hemoglobin Concent 33.2, Red Cell Distribution Width 15.5H, Platelet Count 108L, Mean Platelet Volume 10.0, Neutrophils (%) (Auto) , Lymphocytes (%) (Auto) , Monocytes (%) (Auto) , Eosinophils (%) (Auto) , Basophils (%) (Auto) , Differential Total Cells Counted 100, Neutrophils % ( Manual) 94H, Lymphocytes % (Manual) 2L, Monocytes % (Manual) 3, Eosinophils % ( Manual) 1, Basophils % (Manual) 0, Band Neutrophils 0, Platelet Estimate DecreasedL, Platelet Morphology Normal, Anisocytosis 1+, Sodium Level 141, Potassium Level 3.8, Chloride Level 104, Carbon Dioxide Level 23, Anion Gap 14, Blood Urea Nitrogen 115H, Creatinine 4.8H, Estimat Glomerular Filtration Rate , Glucose Level 85, Uric Acid 5.5, Calcium Level 8.1L, Phosphorus Level 5.6H, Magnesium Level 2.6H, Total Bilirubin 0.4, Aspartate Amino Transf (AST/SGOT) 33 , Alanine Aminotransferase (ALT/SGPT) 12, Alkaline Phosphatase 144H, C-Reactive Protein, Quantitative 13.3H, Pro-B-Type Natriuretic Peptide 9481H, Total Protein 5.0L, Albumin 1.0L, Globulin 4.0, Albumin/Globulin Ratio 0.2L 06/03/18 12:32: C-Reactive Protein, Quantitative 13.6H Height (Feet): 5 Height (Inches): 5.00 Weight (Pounds): 190 Objective GENERAL: Intubated. LUNGS: Decreased breath sounds bilaterally. HEART: S1 S2 Regular. ABDOMEN: Bandages applied with drains noted. EXTREMITIES: No cyanosis. No clubbing. Sid Holland Jun 03, 2018 18:06
[2018-06-03] MEDS ORDERED: HYDROmorphone 1mg/ml Carpuject IVP PRN (18:19)
--- NOTE | 2018-06-03 18:21 | General Progress Note ---
Progress Note Progress Note Called to evaluate for rectal bleeding. noted to have significant maroon colored blood and clots in rectal tube, sheets , and coming from anus during change on FLORENCIO evacuated 100cc maroon colored liquid stool and clots. now with GI bleed given heparin with dialysis hypotensive transfuse prbc / ffp repeat labs after transfusion ng tube to low intermittent suction hold rectal tube replacement Tomas Chandler Jun 03, 2018 18:21
[2018-06-03] MEDS ORDERED: Hydromorphone 0.5mg/0.5ml inj IVP PRN (18:30)
[2018-06-03] MEDS: TPN IV SCH (18:47)
[2018-06-03] MEDS: FAT EMULSION 20% IV SCH (18:47)
[2018-06-03] MEDS: Nitroglycerin Patch 0.4mg TDERMAL SCH (18:49)
--- NOTE | 2018-06-03 19:38 | NUR ---
NURSE NOTES: Patient received from Katina AGUILA. Patient currently hemodynamically unstable, patient noted to have rectal area bleeding, Dr. Chandler at bedside performing a rectal exam assessment. Rectal tube removed by Dr. Chandler. Patient just had HD with removal of 1000ml. Patient not tolerated HD soon afterwards; hemodynamically. Patients Current Ventilator settings are AC 20, 500ml, 100% FiO2, and peep of 10. SpO2 97%. Dr. Chandler ordered for 2 PRBC, 2 FFP. CBC, CMP and PTT/PT? INR after transfusion 1 bag of platelets if Platelets level less than 100,000
--- NOTE | 2018-06-03 19:40 | NUR ---
HAND-OFF: Report given to CHARISSA. ENDORSED PRBCS, CBC.
--- NOTE | 2018-06-03 19:48 | NUR ---
NURSE NOTES: Patients becoming more hypotensive, Levophed, Albumin 5%, given. In shock position. New TPN bag hung. 1/2 bags of PRBC hung. KUB done at bedside and confirmed OGT placement. Low intermittent suction initiated.
--- NOTE | 2018-06-03 19:51 | NUR ---
NURSE NOTES: Patient currently on Levophed 30mcg double concentration bag. BP now is 85/42 (51). Vasopressin gtt on standby incase patient becomes more hypotensive. Will try to decrease pressors if BP begins to stabilize. 5 runs of V-Tach noted. Strip in chart.
[2018-06-03] MEDS: Dyna-Hex 2% Top Sol 2oz TOPIC SCH (20:00)
--- NOTE | 2018-06-03 20:04 | General Progress Note ---
Assessment/Plan Assessment/Plan Assessment - septic shock - off pressors - abdominal infection - s/p exlap, multi-organism culture - liquid stools - resp failure - on vent - renal failure - malnutrition - on TPN Recommendation - supportive care - Abx - TF when OK with surgery - Check C Diff - negative - TPN per renal - follow labs - vent care - HD - guarded Subjective Allergies: Coded Allergies: No Known Allergies (Unverified , 11/12/12) Subjective above noted intubated no major events on TPN Objective Last 24 Hour Vital Signs Date Time Temp Pulse Resp B/P (MAP) Pulse Ox O2 Delivery O2 Flow Rate FiO2 06/03/18 19:46 80 06/03/18 19:22 44/26 06/03/18 18:37 121 22 100 06/03/18 18:26 Mechanical Ventilator 06/03/18 18:00 95 23 91/44 (60) 97 06/03/18 17:19 101 31 40 06/03/18 17:00 99 27 112/40 (64) 98 06/03/18 16:00 Mechanical Ventilator Mechanical Ventilator 06/03/18 16:00 89 06/03/18 16:00 98.9 91 24 96/35 (55) 100 06/03/18 15:00 89 21 109/41 (63) 100 06/03/18 15:00 40 06/03/18 14:39 84 21 40 06/03/18 14:00 83 21 102/42 (62) 100 06/03/18 13:45 Mechanical Ventilator Mechanical Ventilator 06/03/18 13:00 84 22 96/32 (53) 100 06/03/18 12:41 85 24 45 06/03/18 12:00 45 06/03/18 12:00 Mechanical Ventilator Mechanical Ventilator 06/03/18 12:00 87 22 87/19 (41) 100 06/03/18 11:00 100 31 89/41 (57) 100 06/03/18 10:56 103 34 45 06/03/18 10:00 98.7 88 29 104/31 (55) 100 06/03/18 09:50 83 06/03/18 09:00 87 29 108/41 (63) 100 06/03/18 08:59 101 33 45 06/03/18 08:00 90 27 96/24 (48) 100 06/03/18 08:00 50 06/03/18 08:00 90 06/03/18 08:00 Mechanical Ventilator Endotracheal Tube Mechanical Ventilator 06/03/18 07:01 99 32 50 06/03/18 07:00 98 26 123/42 (69) 100 06/03/18 06:00 83 24 101/45 (63) 100 06/03/18 05:07 103 29 50 06/03/18 05:00 101 29 123/39 (67) 99 06/03/18 04:00 50 06/03/18 04:00 99 06/03/18 04:00 Mechanical Ventilator Endotracheal Tube Mechanical Ventilator 06/03/18 04:00 98.8 104 29 103/31 (55) 100 06/03/18 03:14 87 31 50 06/03/18 03:00 87 29 123/30 (61) 100 06/03/18 02:00 93 28 100/43 (62) 100 06/03/18 01:00 89 28 90/66 (74) 100 06/03/18 01:00 92 29 50 06/03/18 00:00 99.7 88 30 106/37 (60) 100 06/03/18 00:00 Mechanical Ventilator Endotracheal Tube Mechanical Ventilator 06/03/18 00:00 50 06/02/18 23:17 90 23 90 06/02/18 23:00 93 29 130/36 (67) 100 06/02/18 22:00 70 06/02/18 22:00 92 27 111/35 (60) 100 06/02/18 21:27 88 24 90 06/02/18 21:00 91 26 106/94 (98) 100 06/02/18 20:30 80 06/02/18 20:27 117/43 Intake and Output 06/02/18 06/03/18 19:00 07:00 Intake Total 1385.004 ml 1139.587 ml Output Total 1350 ml 150 ml Balance 35.004 ml 989.587 ml IV Total 1385.004 ml 1139.587 ml Stool Total 300 ml Drainage Total 550 ml 150 ml Hemodialysis UF 500 ml # Bowel Movements 3 3 Laboratory Tests 06/03/18 05:30: White Blood Count 14.7H, Red Blood Count 3.09L, Hemoglobin 9.0L, Hematocrit 27.3L, Mean Corpuscular Volume 88, Mean Corpuscular Hemoglobin 29.3, Mean Corpuscular Hemoglobin Concent 33.2, Red Cell Distribution Width 15.5H, Platelet Count 108L, Mean Platelet Volume 10.0, Neutrophils (%) (Auto) , Lymphocytes (%) (Auto) , Monocytes (%) (Auto) , Eosinophils (%) (Auto) , Basophils (%) (Auto) , Differential Total Cells Counted 100, Neutrophils % ( Manual) 94H, Lymphocytes % (Manual) 2L, Monocytes % (Manual) 3, Eosinophils % ( Manual) 1, Basophils % (Manual) 0, Band Neutrophils 0, Platelet Estimate DecreasedL, Platelet Morphology Normal, Anisocytosis 1+, Sodium Level 141, Potassium Level 3.8, Chloride Level 104, Carbon Dioxide Level 23, Anion Gap 14, Blood Urea Nitrogen 115H, Creatinine 4.8H, Estimat Glomerular Filtration Rate , Glucose Level 85, Uric Acid 5.5, Calcium Level 8.1L, Phosphorus Level 5.6H, Magnesium Level 2.6H, Total Bilirubin 0.4, Aspartate Amino Transf (AST/SGOT) 33 , Alanine Aminotransferase (ALT/SGPT) 12, Alkaline Phosphatase 144H, C-Reactive Protein, Quantitative 13.3H, Pro-B-Type Natriuretic Peptide 9481H, Total Protein 5.0L, Albumin 1.0L, Globulin 4.0, Albumin/Globulin Ratio 0.2L 06/03/18 12:32: C-Reactive Protein, Quantitative 13.6H Height (Feet): 5 Height (Inches): 5.00 Weight (Pounds): 190 Objective Intubated NCAT ETT / OGT Supple Coarse BS RR abd more flat, (+) large dressing with VELVET x 2 no edema withdrawn Lisa Jain MD Jun 03, 2018 20:04
--- NOTE | 2018-06-03 20:30 | NUR ---
NURSE NOTES: 1/2 PRBC transfused. 2/2 PRBC hung and Transfusing.
--- NOTE | 2018-06-03 20:40 | General Progress Note ---
Assessment/Plan Problem List: (1) ACS (acute coronary syndrome) ICD Codes: I24.9 - Acute ischemic heart disease, unspecified SNOMED: 461358062 (2) ESRD (end stage renal disease) on dialysis ICD Codes: N18.6 - End stage renal disease; Z99.2 - Dependence on renal dialysis SNOMED: 650587509 (3) Depression ICD Codes: F32.9 - Major depressive disorder, single episode, unspecified SNOMED: 89719022 (4) Anemia ICD Codes: D64.9 - Anemia, unspecified SNOMED: 912254588 (5) Sacral decubitus ulcer, stage III ICD Codes: L89.153 - Pressure ulcer of sacral region, stage 3 SNOMED: 851294000, 598042539 (6) Major depression ICD Codes: F32.9 - Major depressive disorder, single episode, unspecified SNOMED: 746378835 (7) anxiety disorder (8) Atrial fibrillation ICD Codes: I48.91 - Unspecified atrial fibrillation SNOMED: 40206817 (9) Hypoxemia ICD Codes: R09.02 - Hypoxemia SNOMED: 136873040 (10) Hypotension ICD Codes: I95.9 - Hypotension, unspecified SNOMED: 06621768 (11) Shock ICD Codes: R57.9 - Shock, unspecified SNOMED: 81730556 (12) Elevated d-dimer ICD Codes: R79.89 - Other specified abnormal findings of blood chemistry SNOMED: 849578766 (13) encephalopathy due to metabolic factor Status: unchanged Assessment/Plan off pressor arrythmia no wheezing malnutriotion s/p washout of pus / multiple exploratory lap esrd on hd s/p septic shick s/p perforated viscuis after cholycestectomy in another hospital not improving poor prognosis reviewed chart and labs Subjective ROS Limited/Unobtainable: Yes Allergies: Coded Allergies: No Known Allergies (Unverified , 11/12/12) Objective Last 24 Hour Vital Signs Date Time Temp Pulse Resp B/P (MAP) Pulse Ox O2 Delivery O2 Flow Rate FiO2 06/03/18 20:30 104 25 80 06/03/18 19:46 80 06/03/18 19:22 44/26 06/03/18 18:37 121 22 100 06/03/18 18:26 Mechanical Ventilator 06/03/18 18:00 95 23 91/44 (60) 97 06/03/18 17:19 101 31 40 06/03/18 17:00 99 27 112/40 (64) 98 06/03/18 16:00 Mechanical Ventilator Mechanical Ventilator 06/03/18 16:00 89 06/03/18 16:00 98.9 91 24 96/35 (55) 100 06/03/18 15:00 89 21 109/41 (63) 100 06/03/18 15:00 40 06/03/18 14:39 84 21 40 06/03/18 14:00 83 21 102/42 (62) 100 06/03/18 13:45 Mechanical Ventilator Mechanical Ventilator 06/03/18 13:00 84 22 96/32 (53) 100 06/03/18 12:41 85 24 45 06/03/18 12:00 45 06/03/18 12:00 Mechanical Ventilator Mechanical Ventilator 06/03/18 12:00 87 22 87/19 (41) 100 06/03/18 11:00 100 31 89/41 (57) 100 06/03/18 10:56 103 34 45 06/03/18 10:00 98.7 88 29 104/31 (55) 100 06/03/18 09:50 83 06/03/18 09:00 87 29 108/41 (63) 100 06/03/18 08:59 101 33 45 06/03/18 08:00 90 27 96/24 (48) 100 06/03/18 08:00 50 06/03/18 08:00 90 06/03/18 08:00 Mechanical Ventilator Endotracheal Tube Mechanical Ventilator 06/03/18 07:01 99 32 50 06/03/18 07:00 98 26 123/42 (69) 100 06/03/18 06:00 83 24 101/45 (63) 100 06/03/18 05:07 103 29 50 06/03/18 05:00 101 29 123/39 (67) 99 06/03/18 04:00 50 06/03/18 04:00 99 06/03/18 04:00 Mechanical Ventilator Endotracheal Tube Mechanical Ventilator 06/03/18 04:00 98.8 104 29 103/31 (55) 100 06/03/18 03:14 87 31 50 06/03/18 03:00 87 29 123/30 (61) 100 06/03/18 02:00 93 28 100/43 (62) 100 06/03/18 01:00 89 28 90/66 (74) 100 06/03/18 01:00 92 29 50 06/03/18 00:00 99.7 88 30 106/37 (60) 100 06/03/18 00:00 Mechanical Ventilator Endotracheal Tube Mechanical Ventilator 06/03/18 00:00 50 06/02/18 23:17 90 23 90 06/02/18 23:00 93 29 130/36 (67) 100 06/02/18 22:00 70 06/02/18 22:00 92 27 111/35 (60) 100 06/02/18 21:27 88 24 90 06/02/18 21:00 91 26 106/94 (98) 100 Intake and Output 06/02/18 06/03/18 19:00 07:00 Intake Total 1385.004 ml 1139.587 ml Output Total 1350 ml 150 ml Balance 35.004 ml 989.587 ml IV Total 1385.004 ml 1139.587 ml Stool Total 300 ml Drainage Total 550 ml 150 ml Hemodialysis UF 500 ml # Bowel Movements 3 3 Laboratory Tests 06/03/18 05:30: White Blood Count 14.7H, Red Blood Count 3.09L, Hemoglobin 9.0L, Hematocrit 27.3L, Mean Corpuscular Volume 88, Mean Corpuscular Hemoglobin 29.3, Mean Corpuscular Hemoglobin Concent 33.2, Red Cell Distribution Width 15.5H, Platelet Count 108L, Mean Platelet Volume 10.0, Neutrophils (%) (Auto) , Lymphocytes (%) (Auto) , Monocytes (%) (Auto) , Eosinophils (%) (Auto) , Basophils (%) (Auto) , Differential Total Cells Counted 100, Neutrophils % ( Manual) 94H, Lymphocytes % (Manual) 2L, Monocytes % (Manual) 3, Eosinophils % ( Manual) 1, Basophils % (Manual) 0, Band Neutrophils 0, Platelet Estimate DecreasedL, Platelet Morphology Normal, Anisocytosis 1+, Sodium Level 141, Potassium Level 3.8, Chloride Level 104, Carbon Dioxide Level 23, Anion Gap 14, Blood Urea Nitrogen 115H, Creatinine 4.8H, Estimat Glomerular Filtration Rate , Glucose Level 85, Uric Acid 5.5, Calcium Level 8.1L, Phosphorus Level 5.6H, Magnesium Level 2.6H, Total Bilirubin 0.4, Aspartate Amino Transf (AST/SGOT) 33 , Alanine Aminotransferase (ALT/SGPT) 12, Alkaline Phosphatase 144H, C-Reactive Protein, Quantitative 13.3H, Pro-B-Type Natriuretic Peptide 9481H, Total Protein 5.0L, Albumin 1.0L, Globulin 4.0, Albumin/Globulin Ratio 0.2L 06/03/18 12:32: C-Reactive Protein, Quantitative 13.6H Height (Feet): 5 Height (Inches): 5.00 Weight (Pounds): 190 General Appearance: lethargic Abdomen: soft Samantha Head MD Jun 03, 2018 20:40
[2018-06-03] MEDS: Epogen (for ESRD on dialysis) SUBQ SCH (21:34)
--- NOTE | 2018-06-03 22:30 | NUR ---
NURSE NOTES: 2/2 PRBC transfused. 1/2 FFP hung. Patients pressors are slowly being titrated down. Patient suctioned. Patient provided with oral care. FiO2 also being titrated down. Spo2 is 100%. NO Blood seen from the rectum area at this time. Will continue to monitor.
[2018-06-04] VITALS (33 sets, daily range): BP systolic 71–137; BP diastolic 18–68
--- NOTE | 2018-06-04 | NUR ---
NURSE NOTES: 1/2 FFP transfused. 2/2 FFP hung. Patients BP is becoming more stable. Levophed has been successfully been titrated down without complications. Patient has been suctioned and given oral care. Will continue to monitor patients progress. Glucose reading is 139
[2018-06-04] MEDS: NovoLOG Insulin Flexpen SUBQ SCH ×6 (01:26→20:27)
--- NOTE | 2018-06-04 02:00 | NUR ---
NURSE NOTES: Patient suctioned and provided oral care. Patient placed on soft wrist restraints as patient was able to move arms and almost pulled out VELVET drains and other tubing. Patient repositioned.
--- NOTE | 2018-06-04 05:31 | NUR ---
NURSE NOTES: 1 bloody/gelatinous dark stool. Patient cleaned and kept dry. Pressor turned off as patients BP more stabilized. Glucose reading 109.
[2018-06-04 06:01] LABS: HEMATOCRIT 25.5 % (42.0-52.0); HEMOGLOBIN 8.5 G/DL (14.2-18.0); MEAN CORPUSCULAR VOLUME 88 FL (80-99); PLATELET COUNT 73 K/UL (150-450); RED BLOOD COUNT 2.88 M/UL (4.70-6.10); RED CELL DISTRIBUTION WIDTH 14.5 % (11.6-14.8); WHITE BLOOD COUNT 11.9 K/UL (4.8-10.8)
--- NOTE | 2018-06-04 06:23 | NUR ---
NURSE NOTES: Patients Niece (Rody Sumner) called the unit from [facility]. Gave her patients update. She mentioned that she would like to have Assistant Operator call her ([phone]) today and wants to discuss if possible to have Next of kin on patients chart to be POA for the patient. Next of kin per patients chart is Rylan Granado ( Patients Neighbor). She would also be in contact with Rylan Granado per her statements.
[2018-06-04 06:28] LABS: INR 1.4 (0.9-1.1)
--- NOTE | 2018-06-04 06:36 | General Progress Note ---
Assessment/Plan Problem List: (1) Perforated viscus ICD Codes: R19.8 - Other specified symptoms and signs involving the digestive system and abdomen SNOMED: 86491056, 699475532, 068836451 (2) ESRD (end stage renal disease) on dialysis ICD Codes: N18.6 - End stage renal disease; Z99.2 - Dependence on renal dialysis SNOMED: 772123758 (3) Shock ICD Codes: R57.9 - Shock, unspecified SNOMED: 48983850 (4) Diabetes mellitus out of control ICD Codes: E11.65 - Type 2 diabetes mellitus with hyperglycemia SNOMED: 97457945, 506800427 Assessment/Plan continue BG monitoring and Novolog sliding scale every 4 hours continue Levemir 14 units bid Subjective ROS Limited/Unobtainable: Yes Allergies: Coded Allergies: No Known Allergies (Unverified , 11/12/12) Subjective events noted Objective Last 24 Hour Vital Signs Date Time Temp Pulse Resp B/P (MAP) Pulse Ox O2 Delivery O2 Flow Rate FiO2 06/04/18 06:00 85 27 137/54 (81) 100 06/04/18 05:00 92 29 136/61 (86) 100 06/04/18 04:56 94 32 50 06/04/18 04:30 92 28 97/48 (64) 92 06/04/18 04:00 75 06/04/18 04:00 98.6 86 26 88/53 (65) 95 06/04/18 04:00 50 06/04/18 04:00 Mechanical Ventilator Mechanical Ventilator 06/04/18 03:30 92 28 118/48 (71) 94 06/04/18 03:00 98/47 06/04/18 03:00 84 29 98/47 (64) 95 06/04/18 02:40 88 24 50 06/04/18 02:30 80 25 101/28 (52) 99 06/04/18 02:00 106/39 06/04/18 02:00 87 29 117/42 (67) 100 06/04/18 01:30 86 28 106/39 (61) 98 06/04/18 01:20 81 26 50 06/04/18 01:00 93/33 06/04/18 01:00 81 27 124/32 (62) 94 06/04/18 00:00 96 06/04/18 00:00 98.3 103 30 119/41 (67) 94 06/04/18 00:00 Mechanical Ventilator Mechanical Ventilator 06/04/18 00:00 60 06/03/18 23:30 69 25 116/43 (67) 97 06/03/18 23:00 81 27 90/77 (81) 94 06/03/18 23:00 90/77 06/03/18 23:00 89 26 60 06/03/18 22:30 86 27 133/102 (112) 96 06/03/18 22:00 86 26 129/93 (105) 95 06/03/18 22:00 129/93 06/03/18 21:30 104 28 122/31 (61) 92 06/03/18 21:00 112/53 06/03/18 21:00 130 28 112/53 (72) 92 06/03/18 20:30 126 27 110/60 (77) 95 06/03/18 20:30 104 25 80 06/03/18 20:00 98.4 103 30 59/38 (45) 91 06/03/18 20:00 100 06/03/18 20:00 Mechanical Ventilator Mechanical Ventilator 06/03/18 20:00 59/38 06/03/18 20:00 130 06/03/18 19:46 80 06/03/18 19:30 94 23 54/39 (44) 94 06/03/18 19:22 44/26 06/03/18 19:00 110 24 73/42 (52) 99 06/03/18 18:37 121 22 100 06/03/18 18:26 Mechanical Ventilator 06/03/18 18:00 95 23 91/44 (60) 97 06/03/18 17:19 101 31 40 06/03/18 17:00 99 27 112/40 (64) 98 06/03/18 16:00 Mechanical Ventilator Mechanical Ventilator 06/03/18 16:00 89 06/03/18 16:00 98.9 91 24 96/35 (55) 100 06/03/18 15:00 89 21 109/41 (63) 100 06/03/18 15:00 40 06/03/18 14:39 84 21 40 06/03/18 14:00 83 21 102/42 (62) 100 06/03/18 13:45 Mechanical Ventilator Mechanical Ventilator 06/03/18 13:00 84 22 96/32 (53) 100 06/03/18 12:41 85 24 45 06/03/18 12:00 45 06/03/18 12:00 Mechanical Ventilator Mechanical Ventilator 06/03/18 12:00 87 22 87/19 (41) 100 06/03/18 11:00 100 31 89/41 (57) 100 06/03/18 10:56 103 34 45 06/03/18 10:00 98.7 88 29 104/31 (55) 100 06/03/18 09:50 83 06/03/18 09:00 87 29 108/41 (63) 100 06/03/18 08:59 101 33 45 06/03/18 08:00 90 27 96/24 (48) 100 06/03/18 08:00 50 06/03/18 08:00 90 06/03/18 08:00 Mechanical Ventilator Endotracheal Tube Mechanical Ventilator 06/03/18 07:01 99 32 50 06/03/18 07:00 98 26 123/42 (69) 100 Intake and Output 06/03/18 06/04/18 18:59 06:59 Intake Total 1114.170 ml 3005.421 ml Output Total 2760 ml 750 ml Balance -1645.830 ml 2255.421 ml IV Total 1114.170 ml 1905.421 ml Blood Product 1100 ml Stool Total 1400 ml Emesis 600 ml Chest Tube Drainage Total 150 ml Drainage Total 360 ml Hemodialysis UF 1000 ml # Bowel Movements 1 1 Laboratory Tests 06/03/18 12:32: C-Reactive Protein, Quantitative 13.6H 06/04/18 04:20: White Blood Count 11.9H, Red Blood Count 2.88L, Hemoglobin 8.5L, Hematocrit 25.5L, Mean Corpuscular Volume 88, Mean Corpuscular Hemoglobin 29.6, Mean Corpuscular Hemoglobin Concent 33.4, Red Cell Distribution Width 14.5, Platelet Count 73L, Mean Platelet Volume 9.0, Neutrophils (%) (Auto) , Lymphocytes (%) ( Auto) , Monocytes (%) (Auto) , Eosinophils (%) (Auto) , Basophils (%) (Auto) , Prothrombin Time 14.3H, Prothromb Time International Ratio 1.4H, Activated Partial Thromboplast Time 38H, Sodium Level [Pending], Potassium Level [Pending] , Chloride Level [Pending], Carbon Dioxide Level [Pending], Blood Urea Nitrogen [Pending], Creatinine [Pending], Estimat Glomerular Filtration Rate [Pending], Glucose Level [Pending], Uric Acid [Pending], Calcium Level [Pending], Phosphorus Level [Pending], Magnesium Level [Pending], Total Bilirubin [Pending] , Gamma Glutamyl Transpeptidase [Pending], Aspartate Amino Transf (AST/SGOT) [ Pending], Alanine Aminotransferase (ALT/SGPT) [Pending], Alkaline Phosphatase [ Pending], Pro-B-Type Natriuretic Peptide [Pending], Total Protein [Pending], Albumin [Pending], Globulin [Pending], Triglycerides Level [Pending], Cholesterol Level [Pending], LDL Cholesterol [Pending], HDL Cholesterol [Pending ], Cholesterol/HDL Ratio [Pending] Height (Feet): 5 Height (Inches): 5.00 Weight (Pounds): 190 General Appearance: moderate distress Neck: normal alignment Cardiovascular: tachycardia Respiratory/Chest: decreased breath sounds Abdomen: decreased bowel sounds Edema: 2+ Arm (L), 2+ Arm (R), 2+ Leg (L), 2+ Leg (R), 2+ Pedal (L), 2+ Pedal ( R), 2+ Generalized Objective Current Medications Medications (Trade) Dose Ordered Sig/Min Route PRN Reason Start Time Stop Time Status Last Admin Dose Admin Acetaminophen (Tylenol) 650 mg Q4H PRN RECTAL Mild Pain/Temp > 100.5 05/21/18 12:00 06/20/18 11:59 Cefepime HCl 2 gm/ Dextrose 55 ml @ 110 mls/hr Q24H IVPB 05/25/18 13:00 06/07/18 12:59 06/03/18 14:22 Chlorhexidine Gluconate (Tatyana-Hex 2%) 1 applic DAILY@2000 TOPIC 05/12/18 20:00 06/11/18 19:59 06/03/18 20:00 Dextrose 1,000 ml @ 0 mls/hr Q24H PRN IV PN interrupted or unavailable 05/25/18 21:00 06/24/18 20:59 Dextrose (Dextrose 50%) 25 ml Q30M PRN IV Hypoglycemia 05/26/18 12:45 06/25/18 12:44 Dextrose (Dextrose 50%) 50 ml Q30M PRN IV Hypoglycemia 05/26/18 12:45 06/25/18 12:44 05/31/18 21:12 Digoxin (Lanoxin) 0.125 mg 3XW IVP 06/03/18 09:00 07/03/18 08:59 06/03/18 09:50 Epoetin Bret (Procrit (for ESRD on dialysis)) 10,000 units SUBQ 06/03/18 21:00 06/30/18 20:59 06/03/18 21:34 Fat Emulsion Intravenous 250 ml/Amino Acids/ Electrolytes/ Dextrose 2,050 ml @ 85.417 mls/ hr Q24H IV 06/01/18 20:00 07/01/18 19:59 06/03/18 18:47 Fluconazole/ Sodium Chloride 100 ml @ 100 mls/hr Q24H IV 05/28/18 18:00 06/08/18 17:59 06/03/18 18:46 Hydrocortisone (Solu-CORTEF) 12.5 mg Q12HR IV 06/03/18 21:00 07/01/18 20:59 06/03/18 20:50 Hydromorphone HCl (Dilaudid) 0.5 mg Q4H PRN IVP Severe Pain (Pain Scale 7-10) 06/03/18 18:30 06/05/18 18:18 Insulin Aspart (NovoLOG) EVERY 4 HOURS SUBQ 05/24/18 17:00 06/15/18 20:59 06/04/18 01:26 Insulin Detemir (Levemir) 14 units Q12HR SUBQ 06/03/18 09:00 06/23/18 17:59 06/03/18 21:00 Levofloxacin 50 ml @ 50 mls/hr Q24H IVPB 05/25/18 13:00 06/07/18 12:59 06/03/18 14:22 Metronidazole 100 ml @ 100 mls/hr Q8HR IVPB 05/25/18 14:00 06/07/18 13:59 06/04/18 05:18 Nitroglycerin (Ntg) 1 patch Q24H TDERMAL 05/29/18 20:00 06/28/18 19:59 06/02/18 20:27 Norepinephrine Bitartrate 8 mg/ Dextrose 500 ml @ 0 mls/hr Q24H IV 05/21/18 14:30 06/20/18 14:29 06/03/18 19:22 Ondansetron HCl (Zofran) 4 mg Q6H PRN IVP Nausea & Vomiting 05/15/18 23:30 06/14/18 23:29 Pantoprazole (Protonix) 40 mg EVERY 12 HOURS IVP 05/12/18 21:00 06/10/18 20:59 06/03/18 20:50 Phytonadione (Vitamin K) 10 mg ONCE A WEEK SUBQ 05/25/18 21:00 06/24/18 20:59 06/01/18 20:31 Vasopressin 100 units/Sodium Chloride 100 ml @ 0 mls/hr Q24H IV 05/22/18 11:30 06/21/18 11:29 05/23/18 17:47 Item Value Date Time Bedside Blood Glucose 109 mg/dl 06/04/18 0500 Bedside Blood Glucose 139 mg/dl H 06/04/18 0126 Bedside Blood Glucose 149 mg/dl H 06/03/18 2136 Bedside Blood Glucose 114 mg/dl 06/03/18 1848 Bedside Blood Glucose 91 mg/dl 06/03/18 1300 Bedside Blood Glucose 72 mg/dl 06/03/18 0900 Bedside Blood Glucose 78 mg/dl 06/03/18 0500 Rashad Koenig MD Jun 04, 2018 06:36
[2018-06-04 06:46] LABS: ALANINE AMINOTRANSFERASE 12 U/L (12-78); ALBUMIN 1.8 G/DL (3.4-5.0); ALBUMIN/GLOBULIN RATIO 0.6 (1.0-2.7); ALKALINE PHOSPHATASE 111 U/L (46-116); ANION GAP 11 mmol/L (5-15); ASPARTATE AMINO TRANSFERASE 26 U/L (15-37); BILIRUBIN,TOTAL 0.4 MG/DL (0.2-1.0); BLOOD UREA NITROGEN 86 mg/dL (7-18); CALCIUM 8.2 MG/DL (8.5-10.1); CARBON DIOXIDE 26 MMOL/L (21-32); CHLORIDE 106 MMOL/L (98-107); CHOLESTEROL 69 MG/DL (< 200); CREATININE 3.6 MG/DL (0.55-1.30); GAMMA GLUTAMYL TRANSPEPTIDASE 30 U/L (5-85); HDL CHOLESTEROL 21 MG/DL (40-60); PHOSPHORUS 5.6 MG/DL (2.5-4.9); POTASSIUM 3.9 MMOL/L (3.5-5.1); SODIUM 143 MMOL/L (136-145); TRIGLYCERIDES 90 MG/DL (30-150)
--- NOTE | 2018-06-04 07:10 | NUR ---
NURSE NOTES: Report received from MINGO Shetty. Pt is awake and confused. On bilateral soft restraints. Sinus rhythm with 1 AVB on monitoring manager. Orally intubated. ETT 7.5/24cm at lip line. AC 20, TV 500, FiO2 50%, P 10. O2 sat 100%. Tachypneic breathing noted. Bloody secretion noted. Dressing on abdominal surgical incision dry and intact. JPx2 is draining serosang liquid. Right femoral Donis for HD noted. Left subclavian TLC patent and asymptomatic. TPN is running at 85.4 cc/hr. Bilateral upper extremities edema noted. Bed in lowest position. Side rails up x3. Will resume plan of care. Addendum: 06/05/18 at 0715 by LOUIE TAVAREZ RN RN NURSE NOTES: Report received from MINGO Shetty. Pt is awake and confused. On bilateral soft restraints. Sinus rhythm with 1 AVB on monitoring manager. Orally intubated. ETT 7.5/24cm at lip line. AC 20, Pressure Control, FiO2 50%, P 10. O2 sat 100%. Tachypneic breathing noted. Bloody secretion noted. Dressing on abdominal surgical incision dry and intact. JPx2 is draining serosang liquid. Right femoral Donis for HD noted. Left subclavian TLC patent and asymptomatic. TPN is running at 85.4 cc/hr. Bilateral upper extremities edema noted. Bed in lowest position. Side rails up x3. Will resume plan of care. Addendum: 06/05/18 at 0716 by LOUIE TAVAREZ RN RN Report received from MINGO Shetty. Pt is awake and confused. On bilateral soft restraints. Sinus rhythm with 1 AVB on monitoring manager. Orally intubated. ETT 7.5/24cm at lip line. AC 20, Pressure Control 25, FiO2 50%, P 10. O2 sat 100%. Tachypneic breathing noted. Bloody secretion noted. Dressing on abdominal surgical incision dry and intact. JPx2 is draining serosang liquid. Right femoral Donis for HD noted. Left subclavian TLC patent and asymptomatic. TPN is running at 85.4 cc/hr. Bilateral upper extremities edema noted. Bed in lowest position. Side rails up x3. Will resume plan of care.
--- NOTE | 2018-06-04 08:31 | NUR ---
NURSE NOTES: Spoke with Dr Chandler and updated him with pt's current condition. Orders for 2 units of pRBC and 2 packs of FFP received, noted, and carried out.
--- NOTE | 2018-06-04 08:34 | NUR ---
Respiratory note: Upper lip skin breakdown noted. Felipe AGUILA is aware and ointment was applied.
[2018-06-04] MEDS: Pantoprazole Inj IVP SCH ×2 (08:36→20:26)
[2018-06-04] MEDS: Hydrocortisone 100mg Inj IV SCH ×2 (08:36→20:26)
--- NOTE | 2018-06-04 08:47 | NUR ---
RADIOLOGY DEPT CHEST X-RAY DONE.-P.DYE
--- NOTE | 2018-06-04 08:53 | General Progress Note ---
Assessment/Plan Assessment/Plan (1) Abdominal pain (2) S/p Lap Cholecystectomy (3) Encephalopathy /septic shock (4) ESRD on hemodialysis (5) S/p emergent exploratory laboratory small bowel resection omentectomy due to small bowel perforation in distal ileum (6) Sacral decubitus ulcer Patient to be continued on Dilaudid and Tylenol. Parameters to be continued. D/w Dr. Busby and he concurred. Subjective Date patient seen: Jun 04, 2018 Time patient seen: 08:45 - am ROS Limited/Unobtainable: Yes Allergies: Coded Allergies: No Known Allergies (Unverified , 11/12/12) Subjective Patient is in bed intubated on vent. TPN NPO, No signs of pain has not gotten Dilaudid in the last 24hrs. Objective Last 24 Hour Vital Signs Date Time Temp Pulse Resp B/P (MAP) Pulse Ox O2 Delivery O2 Flow Rate FiO2 06/04/18 08:31 75 29 50 06/04/18 08:00 Mechanical Ventilator Mechanical Ventilator 06/04/18 08:00 50 06/04/18 08:00 91 25 115/44 (67) 100 06/04/18 07:05 90 35 50 06/04/18 07:00 98.8 93 30 130/68 (88) 100 06/04/18 06:00 85 27 137/54 (81) 100 06/04/18 05:00 92 29 136/61 (86) 100 06/04/18 04:56 94 32 50 06/04/18 04:30 92 28 97/48 (64) 92 06/04/18 04:00 75 06/04/18 04:00 98.6 86 26 88/53 (65) 95 06/04/18 04:00 50 06/04/18 04:00 Mechanical Ventilator Mechanical Ventilator 06/04/18 03:30 92 28 118/48 (71) 94 06/04/18 03:00 98/47 06/04/18 03:00 84 29 98/47 (64) 95 06/04/18 02:40 88 24 50 06/04/18 02:30 80 25 101/28 (52) 99 06/04/18 02:00 106/39 06/04/18 02:00 87 29 117/42 (67) 100 06/04/18 01:30 86 28 106/39 (61) 98 06/04/18 01:20 81 26 50 06/04/18 01:00 93/33 06/04/18 01:00 81 27 124/32 (62) 94 06/04/18 00:00 96 06/04/18 00:00 98.3 103 30 119/41 (67) 94 06/04/18 00:00 Mechanical Ventilator Mechanical Ventilator 06/04/18 00:00 60 06/03/18 23:30 69 25 116/43 (67) 97 06/03/18 23:00 81 27 90/77 (81) 94 06/03/18 23:00 90/77 06/03/18 23:00 89 26 60 06/03/18 22:30 86 27 133/102 (112) 96 06/03/18 22:00 86 26 129/93 (105) 95 06/03/18 22:00 129/93 06/03/18 21:30 104 28 122/31 (61) 92 06/03/18 21:00 112/53 06/03/18 21:00 130 28 112/53 (72) 92 06/03/18 20:30 126 27 110/60 (77) 95 06/03/18 20:30 104 25 80 06/03/18 20:00 98.4 103 30 59/38 (45) 91 06/03/18 20:00 100 06/03/18 20:00 Mechanical Ventilator Mechanical Ventilator 06/03/18 20:00 59/38 06/03/18 20:00 130 06/03/18 19:46 80 06/03/18 19:30 94 23 54/39 (44) 94 06/03/18 19:22 44/26 06/03/18 19:00 110 24 73/42 (52) 99 06/03/18 18:37 121 22 100 06/03/18 18:26 Mechanical Ventilator 06/03/18 18:00 95 23 91/44 (60) 97 06/03/18 17:19 101 31 40 06/03/18 17:00 99 27 112/40 (64) 98 06/03/18 16:00 Mechanical Ventilator Mechanical Ventilator 06/03/18 16:00 89 06/03/18 16:00 98.9 91 24 96/35 (55) 100 06/03/18 15:00 89 21 109/41 (63) 100 06/03/18 15:00 40 06/03/18 14:39 84 21 40 06/03/18 14:00 83 21 102/42 (62) 100 06/03/18 13:45 Mechanical Ventilator Mechanical Ventilator 06/03/18 13:00 84 22 96/32 (53) 100 06/03/18 12:41 85 24 45 06/03/18 12:00 45 06/03/18 12:00 Mechanical Ventilator Mechanical Ventilator 06/03/18 12:00 87 22 87/19 (41) 100 06/03/18 11:00 100 31 89/41 (57) 100 06/03/18 10:56 103 34 45 06/03/18 10:00 98.7 88 29 104/31 (55) 100 06/03/18 09:50 83 06/03/18 09:00 87 29 108/41 (63) 100 06/03/18 08:59 101 33 45 Intake and Output 06/03/18 06/04/18 19:00 07:00 Intake Total 1214.170 ml 2905.421 ml Output Total 2610 ml 880 ml Balance -1395.830 ml 2025.421 ml IV Total 1214.170 ml 1805.421 ml Blood Product 1100 ml Stool Total 1400 ml Emesis 600 ml Chest Tube Drainage Total 150 ml Drainage Total 210 ml 130 ml Hemodialysis UF 1000 ml # Bowel Movements 1 1 Laboratory Tests 06/03/18 12:32: C-Reactive Protein, Quantitative 13.6H 06/04/18 04:20: White Blood Count 11.9H, Red Blood Count 2.88L, Hemoglobin 8.5L, Hematocrit 25.5L, Mean Corpuscular Volume 88, Mean Corpuscular Hemoglobin 29.6, Mean Corpuscular Hemoglobin Concent 33.4, Red Cell Distribution Width 14.5, Platelet Count 73L, Mean Platelet Volume 9.0, Neutrophils (%) (Auto) , Lymphocytes (%) ( Auto) , Monocytes (%) (Auto) , Eosinophils (%) (Auto) , Basophils (%) (Auto) , Prothrombin Time 14.3H, Prothromb Time International Ratio 1.4H, Activated Partial Thromboplast Time 38H, Sodium Level 143, Potassium Level 3.9, Chloride Level 106, Carbon Dioxide Level 26, Anion Gap 11, Blood Urea Nitrogen 86H, Creatinine 3.6H, Estimat Glomerular Filtration Rate , Glucose Level 123H, Uric Acid 4.0, Calcium Level 8.2L, Phosphorus Level 5.6H, Magnesium Level 2.2, Total Bilirubin 0.4, Gamma Glutamyl Transpeptidase 30, Aspartate Amino Transf (AST/ SGOT) 26, Alanine Aminotransferase (ALT/SGPT) 12, Alkaline Phosphatase 111, Pro- B-Type Natriuretic Peptide 9660H, Total Protein 5.0L, Albumin 1.8L, Globulin 3.2 , Albumin/Globulin Ratio 0.6L, Triglycerides Level 90, Cholesterol Level 69, LDL Cholesterol 30, HDL Cholesterol 21L, Cholesterol/HDL Ratio 3.3 Height (Feet): 5 Height (Inches): 5.00 Weight (Pounds): 190 Objective GENERAL: Intubated. LUNGS: Decreased breath sounds bilaterally. HEART: S1 S2 Regular. ABDOMEN: Bandages applied. EXTREMITIES: No cyanosis. No clubbing. Sacral decubitus ulcer. Sid Holland Jun 04, 2018 08:53
--- NOTE | 2018-06-04 09:00 | NUR ---
NURSE NOTES: Pt continues having massive amount of rectal bleed. Gelatinous blood noted. Cleaned and repositioned pt.
--- NOTE | 2018-06-04 10:06 | Cardiac Electrophysiology PN ---
Assessment/Plan Assessment/Plan 1. Atrial fib/flutter with RVR In SR. Off Amio drip for bradycardia. In SR Can't switch to po as NPO On dig 0.125 mg iv MWF. 2. Troponin leak due to renal failure and nonspecific EKG showed old inferior and anterior wall PA, but no ischemia. ECHO normal LV function 3. End-stage renal disease, on hemodialysis per Dr. Arroyo. 4. Septic shock, off Levophed 2D Echo EF 60% and PA pressure 63 ? PE. DD 35.2. Unstable for chest CT angio. Off heparin drip for surgery 5. Hx of lap matthew. S/P SB resection 05/15/18 with drain S/P redo surgery 05/23/18 for anastomotic leak. S/P surgery again by Dr. Chandler 05/27/18 On TPN and Abx 6. Respiratory failure, reintubated on the vent. 7. History of kidney stones. 8. History of psychiatric problems, dementia. SAW RN Subjective Subjective In ICU on the vent. Off Amiodarone drip due to bradycardia. Was on Levophed overnight but DCed this am. Started to have rectal bleed and received blood transfusion. Objective Last 24 Hour Vital Signs Date Time Temp Pulse Resp B/P (MAP) Pulse Ox O2 Delivery O2 Flow Rate FiO2 06/04/18 09:00 74 24 112/35 (60) 100 06/04/18 08:31 75 29 50 06/04/18 08:00 Mechanical Ventilator Mechanical Ventilator 06/04/18 08:00 50 06/04/18 08:00 91 25 115/44 (67) 100 06/04/18 07:05 90 35 50 06/04/18 07:00 98.8 93 30 130/68 (88) 100 06/04/18 06:00 85 27 137/54 (81) 100 06/04/18 05:00 92 29 136/61 (86) 100 06/04/18 04:56 94 32 50 06/04/18 04:30 92 28 97/48 (64) 92 06/04/18 04:00 75 06/04/18 04:00 98.6 86 26 88/53 (65) 95 06/04/18 04:00 50 06/04/18 04:00 Mechanical Ventilator Mechanical Ventilator 06/04/18 03:30 92 28 118/48 (71) 94 06/04/18 03:00 98/47 06/04/18 03:00 84 29 98/47 (64) 95 06/04/18 02:40 88 24 50 06/04/18 02:30 80 25 101/28 (52) 99 06/04/18 02:00 106/39 06/04/18 02:00 87 29 117/42 (67) 100 06/04/18 01:30 86 28 106/39 (61) 98 06/04/18 01:20 81 26 50 06/04/18 01:00 93/33 06/04/18 01:00 81 27 124/32 (62) 94 06/04/18 00:00 96 06/04/18 00:00 98.3 103 30 119/41 (67) 94 06/04/18 00:00 Mechanical Ventilator Mechanical Ventilator 06/04/18 00:00 60 06/03/18 23:30 69 25 116/43 (67) 97 06/03/18 23:00 81 27 90/77 (81) 94 06/03/18 23:00 90/77 06/03/18 23:00 89 26 60 06/03/18 22:30 86 27 133/102 (112) 96 06/03/18 22:00 86 26 129/93 (105) 95 06/03/18 22:00 129/93 06/03/18 21:30 104 28 122/31 (61) 92 06/03/18 21:00 112/53 06/03/18 21:00 130 28 112/53 (72) 92 06/03/18 20:30 126 27 110/60 (77) 95 06/03/18 20:30 104 25 80 06/03/18 20:00 98.4 103 30 59/38 (45) 91 06/03/18 20:00 100 06/03/18 20:00 Mechanical Ventilator Mechanical Ventilator 06/03/18 20:00 59/38 06/03/18 20:00 130 06/03/18 19:46 80 06/03/18 19:30 94 23 54/39 (44) 94 06/03/18 19:22 44/26 06/03/18 19:00 110 24 73/42 (52) 99 06/03/18 18:37 121 22 100 06/03/18 18:26 Mechanical Ventilator 06/03/18 18:00 95 23 91/44 (60) 97 06/03/18 17:19 101 31 40 06/03/18 17:00 99 27 112/40 (64) 98 06/03/18 16:00 Mechanical Ventilator Mechanical Ventilator 06/03/18 16:00 89 06/03/18 16:00 98.9 91 24 96/35 (55) 100 06/03/18 15:00 89 21 109/41 (63) 100 06/03/18 15:00 40 06/03/18 14:39 84 21 40 06/03/18 14:00 83 21 102/42 (62) 100 06/03/18 13:45 Mechanical Ventilator Mechanical Ventilator 06/03/18 13:00 84 22 96/32 (53) 100 06/03/18 12:41 85 24 45 06/03/18 12:00 45 06/03/18 12:00 Mechanical Ventilator Mechanical Ventilator 06/03/18 12:00 87 22 87/19 (41) 100 06/03/18 11:00 100 31 89/41 (57) 100 06/03/18 10:56 103 34 45 Intake and Output 06/03/18 06/04/18 19:00 07:00 Intake Total 1214.170 ml 2905.421 ml Output Total 2610 ml 880 ml Balance -1395.830 ml 2025.421 ml IV Total 1214.170 ml 1805.421 ml Blood Product 1100 ml Stool Total 1400 ml Emesis 600 ml Chest Tube Drainage Total 150 ml Drainage Total 210 ml 130 ml Hemodialysis UF 1000 ml # Bowel Movements 1 1 Laboratory Tests Test 06/03/18 12:32 06/04/18 04:20 C-Reactive Protein, Quantitative 13.6 mg/dL (0.00-0.90) H White Blood Count 11.9 K/UL (4.8-10.8) H Red Blood Count 2.88 M/UL (4.70-6.10) L Hemoglobin 8.5 G/DL (14.2-18.0) L Hematocrit 25.5 % (42.0-52.0) L Mean Corpuscular Volume 88 FL (80-99) Mean Corpuscular Hemoglobin 29.6 PG (27.0-31.0) Mean Corpuscular Hemoglobin Concent 33.4 G/DL (32.0-36.0) Red Cell Distribution Width 14.5 % (11.6-14.8) Platelet Count 73 K/UL (150-450) L Mean Platelet Volume 9.0 FL (6.5-10.1) Neutrophils (%) (Auto) % (45.0-75.0) Lymphocytes (%) (Auto) % (20.0-45.0) Monocytes (%) (Auto) % (1.0-10.0) Eosinophils (%) (Auto) % (0.0-3.0) Basophils (%) (Auto) % (0.0-2.0) Prothrombin Time 14.3 SEC (9.30-11.50) H Prothromb Time International Ratio 1.4 (0.9-1.1) H Activated Partial Thromboplast Time 38 SEC (23-33) H Sodium Level 143 MMOL/L (136-145) Potassium Level 3.9 MMOL/L (3.5-5.1) Chloride Level 106 MMOL/L (98-107) Carbon Dioxide Level 26 MMOL/L (21-32) Anion Gap 11 mmol/L (5-15) Blood Urea Nitrogen 86 mg/dL (7-18) H Creatinine 3.6 MG/DL (0.55-1.30) H Estimat Glomerular Filtration Rate mL/min (>60) Glucose Level 123 MG/DL (74-106) H Uric Acid 4.0 MG/DL (2.6-7.2) Calcium Level 8.2 MG/DL (8.5-10.1) L Phosphorus Level 5.6 MG/DL (2.5-4.9) H Magnesium Level 2.2 MG/DL (1.8-2.4) Total Bilirubin 0.4 MG/DL (0.2-1.0) Gamma Glutamyl Transpeptidase 30 U/L (5-85) Aspartate Amino Transf (AST/SGOT) 26 U/L (15-37) Alanine Aminotransferase (ALT/SGPT) 12 U/L (12-78) Alkaline Phosphatase 111 U/L (46-116) Pro-B-Type Natriuretic Peptide 9660 pg/mL (0-125) H Total Protein 5.0 G/DL (6.4-8.2) L Albumin 1.8 G/DL (3.4-5.0) L Globulin 3.2 g/dL Albumin/Globulin Ratio 0.6 (1.0-2.7) L Triglycerides Level 90 MG/DL (30-150) Cholesterol Level 69 MG/DL (< 200) LDL Cholesterol 30 mg/dL (<100) HDL Cholesterol 21 MG/DL (40-60) L Cholesterol/HDL Ratio 3.3 (3.3-4.4) Microbiology Date/Time Source Procedure Growth Status 06/01/18 17:00 Stool Clostridium difficile Toxin Assay - Final Complete Objective HEENT: Orally intubated Cardiovascular: Sinus tachycardia Respiratory/Chest: Coarse rhonchi Abdomen: Post op with 2 VELVET drain Extremities: 1 plus edema. Right groin dialysis catheter Everett Stephenson MD Jun 04, 2018 10:06
--- NOTE | 2018-06-04 10:25 | NUR ---
NURSE NOTES: Platelet transfusion started. Cosigned with MINGO Gipson. Pre-transfusion temp 98.3, HR 100, BP 114/38. Will continue to monitor.
--- NOTE | 2018-06-04 10:28 | NUR ---
RD ASSESSMENT & RECOMMENDATIONS SEE CARE ACTIVITY FOR COMPLETE ASSESSMENT DAILY ESTIMATED NEEDS: Needs based on ESRD on HD, wound, critical care/ 73.7kg abw 25-30 kcals/kg 8141-5882 total kcals 1.25-2 g protein/kg 92-147 g total protein Fluid per MD NUTRITION DIAGNOSIS: 1) Increased kcal and protein needs r/t renal dysfunction, wound healing, surgery as evidenced by pt with ESRD on HD, partial thickness wound @ sacral cleft and stage 1 @ rt heel, s/p small bowel resection. 2) Altered GI function R/T recent lap matthew w/ possible complications as evidenced by pt admitted w/ c/o abdominal pain, s/p ex lap w/ finding of small bowel perforation in distal ileum, s/p small bowel resection w/ drain, NPO w/ TPN to meet nutritional needs. 3) Altered nutrition related lab values R/T ESRD, on steroidal med, DM dx, clinical condition, as evidenced by low Na (129-> wnl), elev K (5.9-> wnl), elev phos (now 5.6), elev BNP (>15525-> now 9660), elev BGs (317 250 252- now improved), variable BP on / off pressor support- TPN initiated CURRENT DIET: NPO PARENTERAL NUTRITION RECOMMENDATIONS: D/AA Rate: 75 IL Rate: 10 Total Rate: 85 Volume: 2040 % Dextrose: 18 % AA: 5.5 Energy (kcals/kg): 1978 Protein (g/kg protein): 99 Nonprotein KCALS: 1582 GIR (mg CHO/kg/min): 2.6 % Fat KCALS: 24 NPC: N Ratio: 100:1 TPN Comment: * W/ hemodynamic stability, rec to continue current TPN * D18% AA 5.5% @ 75ml/hr + IL20% @10ml/hr -> all 3:1, total of 85ml/hr. * Meets 100% est kcal and prot needs, 27kcal/adj kg, 1.3g prot/ adj kg. * GIR=2.6, IL <30%, NPC: 100:1 ADDITIONAL RECOMMENDATIONS: 1) RE-calibrate bed scale for accurate CBW 2) Monitor lytes, BGs, LFTs daily on TPN 3) Monitor BGs closely- on steroidal med + TPN . . .
[2018-06-04] MEDS: Levemir Flexpen SUBQ SCH ×2 (10:46→20:27)
--- NOTE | 2018-06-04 10:46 | NUR ---
NURSE NOTES: Levemir administered late since it was delivered late by Pharmacy.
--- NOTE | 2018-06-04 11:07 | Diagnostic Imaging Report ---
Indication: NG tube Comparison: 05/23/2018 Single view of the abdomen obtained Findings: NG tube is present. The proximal and distal ports project over the stomach lumen. Pulmonary opacities incidentally noted. Surgical clips in the abdomen noted. There is a drain present in the left-sided abdomen. IMPRESSION: NG tube in good position
[2018-06-04] MEDS: Vasopressin 100 UNITS in NS 95 ML IV SCH (11:30)
--- NOTE | 2018-06-04 11:40 | Diagnostic Imaging Report ---
Indication: Dyspnea Comparison: 06/03/2018 A single view chest radiograph was obtained. Findings: Tubes and lines are stable. Cardiomegaly is stable. Interstitial and vascular prominence again demonstrated bilaterally. Retrocardiac opacification again noted. IMPRESSION: No change from the prior day. Interstitial edema suspected. Left basilar infiltrate versus atelectasis and/or pleural effusion
--- NOTE | 2018-06-04 11:41 | NUR ---
NURSE NOTES: Order for Vitamin K received from Dr Leon received, noted and carried out. Confirmed with Dr Chandler that he still wants to give FFP whereas Dr Knutson ordered Vit K. Dr Leon okayed with FFP transfusion as well. Will continue the order for FFP transfusion.
--- NOTE | 2018-06-04 11:54 | Infectious Diseases Prog Note ---
Assessment/Plan Assessment/Plan A: 1. serratia , Enterobacter sepsis with shock 2. VRE colonization 3. diabetes mellitus 4. hypertension 5. 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 leucocytosis 6. A fib with RVR 7. Small bowel perforation 8. Perioperative respiratory failure 9. Atelectasis versus Pneumonia 10 Peritonitis with Citrobacter & Serratia 11. sepsis, septic shock 12. Lactic acidosis 13. Anemia 14. s/p hemicolectomy 15.GI bleeding P 1. continue Cefepime , Flagyl , Levaquin & Fluconazole 2.Continue TPN Subjective ROS Limited/Unobtainable: Yes Gastrointestinal/Abdominal: Reports: blood in stool, other - bright Allergies: Coded Allergies: No Known Allergies (Unverified , 11/12/12) Objective Vital Signs Last 24 Hour Vital Signs Date Time Temp Pulse Resp B/P (MAP) Pulse Ox O2 Delivery O2 Flow Rate FiO2 06/04/18 11:00 84 27 90/46 (61) 100 06/04/18 10:58 97 25 50 06/04/18 10:00 100 30 114/38 (63) 100 06/04/18 09:00 74 24 112/35 (60) 100 06/04/18 08:31 75 29 50 06/04/18 08:00 Mechanical Ventilator Mechanical Ventilator 06/04/18 08:00 50 06/04/18 08:00 91 25 115/44 (67) 100 06/04/18 07:42 93 06/04/18 07:05 90 35 50 06/04/18 07:00 98.8 93 30 130/68 (88) 100 06/04/18 06:00 85 27 137/54 (81) 100 06/04/18 05:00 92 29 136/61 (86) 100 06/04/18 04:56 94 32 50 06/04/18 04:30 92 28 97/48 (64) 92 06/04/18 04:00 75 06/04/18 04:00 98.6 86 26 88/53 (65) 95 06/04/18 04:00 50 06/04/18 04:00 Mechanical Ventilator Mechanical Ventilator 06/04/18 03:30 92 28 118/48 (71) 94 06/04/18 03:00 98/47 06/04/18 03:00 84 29 98/47 (64) 95 06/04/18 02:40 88 24 50 06/04/18 02:30 80 25 101/28 (52) 99 06/04/18 02:00 106/39 06/04/18 02:00 87 29 117/42 (67) 100 06/04/18 01:30 86 28 106/39 (61) 98 06/04/18 01:20 81 26 50 06/04/18 01:00 93/33 06/04/18 01:00 81 27 124/32 (62) 94 06/04/18 00:00 96 06/04/18 00:00 98.3 103 30 119/41 (67) 94 06/04/18 00:00 Mechanical Ventilator Mechanical Ventilator 06/04/18 00:00 60 06/03/18 23:30 69 25 116/43 (67) 97 06/03/18 23:00 81 27 90/77 (81) 94 06/03/18 23:00 90/77 06/03/18 23:00 89 26 60 06/03/18 22:30 86 27 133/102 (112) 96 06/03/18 22:00 86 26 129/93 (105) 95 06/03/18 22:00 129/93 06/03/18 21:30 104 28 122/31 (61) 92 06/03/18 21:00 112/53 06/03/18 21:00 130 28 112/53 (72) 92 06/03/18 20:30 126 27 110/60 (77) 95 06/03/18 20:30 104 25 80 06/03/18 20:00 98.4 103 30 59/38 (45) 91 06/03/18 20:00 100 06/03/18 20:00 Mechanical Ventilator Mechanical Ventilator 06/03/18 20:00 59/38 06/03/18 20:00 130 06/03/18 19:46 80 06/03/18 19:30 94 23 54/39 (44) 94 06/03/18 19:22 44/26 06/03/18 19:00 110 24 73/42 (52) 99 06/03/18 18:37 121 22 100 06/03/18 18:26 Mechanical Ventilator 06/03/18 18:00 95 23 91/44 (60) 97 06/03/18 17:19 101 31 40 06/03/18 17:00 99 27 112/40 (64) 98 06/03/18 16:00 Mechanical Ventilator Mechanical Ventilator 06/03/18 16:00 89 06/03/18 16:00 98.9 91 24 96/35 (55) 100 06/03/18 15:00 89 21 109/41 (63) 100 06/03/18 15:00 40 06/03/18 14:39 84 21 40 06/03/18 14:00 83 21 102/42 (62) 100 06/03/18 13:45 Mechanical Ventilator Mechanical Ventilator 06/03/18 13:00 84 22 96/32 (53) 100 06/03/18 12:41 85 24 45 06/03/18 12:00 45 06/03/18 12:00 Mechanical Ventilator Mechanical Ventilator 06/03/18 12:00 87 22 87/19 (41) 100 Height (Feet): 5 Height (Inches): 5.00 Weight (Pounds): 190 HEENT: other - orally intubated Respiratory/Chest: rhonchi - bilaterally, other - on ventilator Cardiovascular: normal rate, other - left subclavian line, R femoral HD Abdomen: other - orogastric tube, drains & dressing unchanged Extremities: other - anasarca Neurologic/Psychiatric: other - poorly responsive on restraint Microbiology Date/Time Source Procedure Growth Status 06/01/18 17:00 Stool Clostridium difficile Toxin Assay - Final Complete Laboratory Tests Test 06/03/18 12:32 06/04/18 04:20 06/04/18 10:06 C-Reactive Protein, Quantitative 13.6 mg/dL (0.00-0.90) H White Blood Count 11.9 K/UL (4.8-10.8) H Red Blood Count 2.88 M/UL (4.70-6.10) L Hemoglobin 8.5 G/DL (14.2-18.0) L Hematocrit 25.5 % (42.0-52.0) L Mean Corpuscular Volume 88 FL (80-99) Mean Corpuscular Hemoglobin 29.6 PG (27.0-31.0) Mean Corpuscular Hemoglobin Concent 33.4 G/DL (32.0-36.0) Red Cell Distribution Width 14.5 % (11.6-14.8) Platelet Count 73 K/UL (150-450) L Mean Platelet Volume 9.0 FL (6.5-10.1) Neutrophils (%) (Auto) % (45.0-75.0) Lymphocytes (%) (Auto) % (20.0-45.0) Monocytes (%) (Auto) % (1.0-10.0) Eosinophils (%) (Auto) % (0.0-3.0) Basophils (%) (Auto) % (0.0-2.0) Prothrombin Time 14.3 SEC (9.30-11.50) H Prothromb Time International Ratio 1.4 (0.9-1.1) H Activated Partial Thromboplast Time 38 SEC (23-33) H Sodium Level 143 MMOL/L (136-145) Potassium Level 3.9 MMOL/L (3.5-5.1) Chloride Level 106 MMOL/L (98-107) Carbon Dioxide Level 26 MMOL/L (21-32) Anion Gap 11 mmol/L (5-15) Blood Urea Nitrogen 86 mg/dL (7-18) H Creatinine 3.6 MG/DL (0.55-1.30) H Estimat Glomerular Filtration Rate mL/min (>60) Glucose Level 123 MG/DL (74-106) H Uric Acid 4.0 MG/DL (2.6-7.2) Calcium Level 8.2 MG/DL (8.5-10.1) L Phosphorus Level 5.6 MG/DL (2.5-4.9) H Magnesium Level 2.2 MG/DL (1.8-2.4) Total Bilirubin 0.4 MG/DL (0.2-1.0) Gamma Glutamyl Transpeptidase 30 U/L (5-85) Aspartate Amino Transf (AST/SGOT) 26 U/L (15-37) Alanine Aminotransferase (ALT/SGPT) 12 U/L (12-78) Alkaline Phosphatase 111 U/L (46-116) Pro-B-Type Natriuretic Peptide 9660 pg/mL (0-125) H Total Protein 5.0 G/DL (6.4-8.2) L Albumin 1.8 G/DL (3.4-5.0) L Globulin 3.2 g/dL Albumin/Globulin Ratio 0.6 (1.0-2.7) L Triglycerides Level 90 MG/DL (30-150) Cholesterol Level 69 MG/DL (< 200) LDL Cholesterol 30 mg/dL (<100) HDL Cholesterol 21 MG/DL (40-60) L Cholesterol/HDL Ratio 3.3 (3.3-4.4) Arterial Blood pH 7.377 (7.350-7.450) Arterial Blood Partial Pressure CO2 43.0 mmHg (35.0-45.0) Arterial Blood Partial Pressure O2 143.9 mmHg (75.0-100.0) H Arterial Blood HCO3 24.7 mmol/L (22.0-26.0) Arterial Blood Oxygen Saturation 98.2 % (95-100) Arterial Blood Base Excess -0.5 (-2-2) Luiz Test Positive Current Medications Medications (Trade) Dose Ordered Sig/Min Route PRN Reason Start Time Stop Time Status Last Admin Dose Admin Acetaminophen (Tylenol) 650 mg Q4H PRN RECTAL Mild Pain/Temp > 100.5 05/21/18 12:00 06/20/18 11:59 Cefepime HCl 2 gm/ Dextrose 55 ml @ 110 mls/hr Q24H IVPB 05/25/18 13:00 06/07/18 12:59 06/03/18 14:22 Chlorhexidine Gluconate (Tatyana-Hex 2%) 1 applic DAILY@2000 TOPIC 05/12/18 20:00 06/11/18 19:59 06/03/18 20:00 Dextrose 1,000 ml @ 0 mls/hr Q24H PRN IV PN interrupted or unavailable 05/25/18 21:00 06/24/18 20:59 Dextrose (Dextrose 50%) 25 ml Q30M PRN IV Hypoglycemia 05/26/18 12:45 06/25/18 12:44 Dextrose (Dextrose 50%) 50 ml Q30M PRN IV Hypoglycemia 05/26/18 12:45 06/25/18 12:44 05/31/18 21:12 Digoxin (Lanoxin) 0.125 mg 3XW IVP 06/03/18 09:00 07/03/18 08:59 06/03/18 09:50 Epoetin Bret (Procrit (for ESRD on dialysis)) 10,000 units SUN-SUN-SUN SUBQ 06/03/18 21:00 06/30/18 20:59 06/03/18 21:34 Fat Emulsion Intravenous 250 ml/Amino Acids/ Electrolytes/ Dextrose 2,050 ml @ 85.417 mls/ hr Q24H IV 06/01/18 20:00 07/01/18 19:59 06/03/18 18:47 Fluconazole/ Sodium Chloride 100 ml @ 100 mls/hr Q24H IV 05/28/18 18:00 06/08/18 17:59 06/03/18 18:46 Hydrocortisone (Solu-CORTEF) 12.5 mg Q12HR IV 06/03/18 21:00 07/01/18 20:59 06/04/18 08:36 Hydromorphone HCl (Dilaudid) 0.5 mg Q4H PRN IVP Severe Pain (Pain Scale 7-10) 06/03/18 18:30 06/05/18 18:18 Insulin Aspart (NovoLOG) EVERY 4 HOURS SUBQ 05/24/18 17:00 06/15/18 20:59 06/04/18 01:26 Insulin Detemir (Levemir) 14 units Q12HR SUBQ 06/03/18 09:00 06/23/18 17:59 06/04/18 10:46 Levofloxacin 50 ml @ 50 mls/hr Q24H IVPB 05/25/18 13:00 06/07/18 12:59 06/03/18 14:22 Metronidazole 100 ml @ 100 mls/hr Q8HR IVPB 05/25/18 14:00 06/07/18 13:59 06/04/18 05:18 Nitroglycerin (Ntg) 1 patch Q24H TDERMAL 05/29/18 20:00 06/28/18 19:59 06/02/18 20:27 Norepinephrine Bitartrate 8 mg/ Dextrose 500 ml @ 0 mls/hr Q24H IV 05/21/18 14:30 06/20/18 14:29 06/03/18 19:22 Ondansetron HCl (Zofran) 4 mg Q6H PRN IVP Nausea & Vomiting 05/15/18 23:30 06/14/18 23:29 Pantoprazole (Protonix) 40 mg EVERY 12 HOURS IVP 05/12/18 21:00 06/10/18 20:59 06/04/18 08:36 Phytonadione (Vitamin K) 10 mg ONCE A WEEK SUBQ 06/11/18 11:00 07/11/18 10:59 Phytonadione 10 mg/Dextrose 56 ml @ 112 mls/hr ONCE ONCE IVPB 06/04/18 12:30 06/04/18 12:59 Vasopressin 100 units/Sodium Chloride 100 ml @ 0 mls/hr Q24H IV 05/22/18 11:30 06/21/18 11:29 05/23/18 17:47 Romie Hooks MD Jun 04, 2018 11:54
--- NOTE | 2018-06-04 12:20 | NUR ---
NURSE NOTES: Platelet transfusion done. Post transfusion temp 98.1, HR 94, BP 101/30. No adverse transfusion reaction noted. Will continue to monitor.
[2018-06-04] MEDS ORDERED: Phytonadione 10 MG in D5W 55 ML IVPB ONE (12:30)
--- NOTE | 2018-06-04 12:33 | Nephrology Progress Note ---
Assessment/Plan Problem List: (1) ESRD (end stage renal disease) on dialysis (2) Perforated bowel (3) Hyponatremia (4) Major depression (5) Nausea & vomiting (6) H/O abdominal surgery Assessment: recent (7) Shock Assessment recent abdominal surgery hemodynamically stablized over night Presents with CHF and Low Na ESRD ACS DM HTN h/o GI bleed Depression Plan transfused 2 units more K in TPN Stop Mag in TPN remains intubated off pressors on TPN- adjust Na and K and Mag in TPN HD 05/29 - 2 liters remove HD last 06/03 aim to correct lytes on steroids vented insulin for high BS hold dig , check levels, resume as needed Has abd surgery 05/15 Perforated bowel graft clotted , has a femoral felice right HOLD ALL MIND ALTERING MEDS - DC all po meds FLUID CHALLENGE pressors as needed BP HR Pain control discussed with RN and Dr Karen LAUREN protonix Subjective ROS Limited/Unobtainable: Yes Objective Objective Last 24 Hour Vital Signs Date Time Temp Pulse Resp B/P (MAP) Pulse Ox O2 Delivery O2 Flow Rate FiO2 06/04/18 12:00 50 06/04/18 12:00 Mechanical Ventilator Mechanical Ventilator 06/04/18 12:00 97 25 104/31 (55) 100 06/04/18 11:00 84 27 90/46 (61) 100 06/04/18 10:58 97 25 50 06/04/18 10:00 100 30 114/38 (63) 100 06/04/18 09:00 74 24 112/35 (60) 100 06/04/18 08:31 75 29 50 06/04/18 08:00 Mechanical Ventilator Mechanical Ventilator 06/04/18 08:00 50 06/04/18 08:00 91 25 115/44 (67) 100 06/04/18 07:42 93 06/04/18 07:05 90 35 50 06/04/18 07:00 98.8 93 30 130/68 (88) 100 06/04/18 06:00 85 27 137/54 (81) 100 06/04/18 05:00 92 29 136/61 (86) 100 06/04/18 04:56 94 32 50 06/04/18 04:30 92 28 97/48 (64) 92 06/04/18 04:00 75 06/04/18 04:00 98.6 86 26 88/53 (65) 95 06/04/18 04:00 50 06/04/18 04:00 Mechanical Ventilator Mechanical Ventilator 06/04/18 03:30 92 28 118/48 (71) 94 06/04/18 03:00 98/47 06/04/18 03:00 84 29 98/47 (64) 95 06/04/18 02:40 88 24 50 06/04/18 02:30 80 25 101/28 (52) 99 06/04/18 02:00 106/39 06/04/18 02:00 87 29 117/42 (67) 100 06/04/18 01:30 86 28 106/39 (61) 98 06/04/18 01:20 81 26 50 06/04/18 01:00 93/33 06/04/18 01:00 81 27 124/32 (62) 94 06/04/18 00:00 96 06/04/18 00:00 98.3 103 30 119/41 (67) 94 06/04/18 00:00 Mechanical Ventilator Mechanical Ventilator 06/04/18 00:00 60 06/03/18 23:30 69 25 116/43 (67) 97 06/03/18 23:00 81 27 90/77 (81) 94 06/03/18 23:00 90/77 06/03/18 23:00 89 26 60 06/03/18 22:30 86 27 133/102 (112) 96 06/03/18 22:00 86 26 129/93 (105) 95 06/03/18 22:00 129/93 06/03/18 21:30 104 28 122/31 (61) 92 06/03/18 21:00 112/53 06/03/18 21:00 130 28 112/53 (72) 92 06/03/18 20:30 126 27 110/60 (77) 95 06/03/18 20:30 104 25 80 06/03/18 20:00 98.4 103 30 59/38 (45) 91 06/03/18 20:00 100 06/03/18 20:00 Mechanical Ventilator Mechanical Ventilator 06/03/18 20:00 59/38 06/03/18 20:00 130 06/03/18 19:46 80 06/03/18 19:30 94 23 54/39 (44) 94 06/03/18 19:22 44/26 06/03/18 19:00 110 24 73/42 (52) 99 06/03/18 18:37 121 22 100 06/03/18 18:26 Mechanical Ventilator 06/03/18 18:00 95 23 91/44 (60) 97 06/03/18 17:19 101 31 40 06/03/18 17:00 99 27 112/40 (64) 98 06/03/18 16:00 Mechanical Ventilator Mechanical Ventilator 06/03/18 16:00 89 06/03/18 16:00 98.9 91 24 96/35 (55) 100 06/03/18 15:00 89 21 109/41 (63) 100 06/03/18 15:00 40 06/03/18 14:39 84 21 40 06/03/18 14:00 83 21 102/42 (62) 100 06/03/18 13:45 Mechanical Ventilator Mechanical Ventilator 06/03/18 13:00 84 22 96/32 (53) 100 06/03/18 12:41 85 24 45 Intake and Output 06/03/18 06/04/18 19:00 07:00 Intake Total 1214.170 ml 2905.421 ml Output Total 2610 ml 880 ml Balance -1395.830 ml 2025.421 ml IV Total 1214.170 ml 1805.421 ml Blood Product 1100 ml Stool Total 1400 ml Emesis 600 ml Chest Tube Drainage Total 150 ml Drainage Total 210 ml 130 ml Hemodialysis UF 1000 ml # Bowel Movements 1 1 Laboratory Tests 06/04/18 04:20: White Blood Count 11.9H, Red Blood Count 2.88L, Hemoglobin 8.5L, Hematocrit 25.5L, Mean Corpuscular Volume 88, Mean Corpuscular Hemoglobin 29.6, Mean Corpuscular Hemoglobin Concent 33.4, Red Cell Distribution Width 14.5, Platelet Count 73L, Mean Platelet Volume 9.0, Neutrophils (%) (Auto) , Lymphocytes (%) ( Auto) , Monocytes (%) (Auto) , Eosinophils (%) (Auto) , Basophils (%) (Auto) , Prothrombin Time 14.3H, Prothromb Time International Ratio 1.4H, Activated Partial Thromboplast Time 38H, Sodium Level 143, Potassium Level 3.9, Chloride Level 106, Carbon Dioxide Level 26, Anion Gap 11, Blood Urea Nitrogen 86H, Creatinine 3.6H, Estimat Glomerular Filtration Rate , Glucose Level 123H, Uric Acid 4.0, Calcium Level 8.2L, Phosphorus Level 5.6H, Magnesium Level 2.2, Total Bilirubin 0.4, Gamma Glutamyl Transpeptidase 30, Aspartate Amino Transf (AST/ SGOT) 26, Alanine Aminotransferase (ALT/SGPT) 12, Alkaline Phosphatase 111, Pro- B-Type Natriuretic Peptide 9660H, Total Protein 5.0L, Albumin 1.8L, Globulin 3.2 , Albumin/Globulin Ratio 0.6L, Triglycerides Level 90, Cholesterol Level 69, LDL Cholesterol 30, HDL Cholesterol 21L, Cholesterol/HDL Ratio 3.3 06/04/18 10:06: Arterial Blood pH 7.377, Arterial Blood Partial Pressure CO2 43.0, Arterial Blood Partial Pressure O2 143.9H, Arterial Blood HCO3 24.7, Arterial Blood Oxygen Saturation 98.2, Arterial Blood Base Excess -0.5, Luiz Test Positive Height (Feet): 5 Height (Inches): 5.00 Weight (Pounds): 190 General Appearance: no apparent distress Cardiovascular: normal rate Respiratory/Chest: decreased breath sounds Abdomen: soft Objective no change Maurilio Arroyo MD Jun 04, 2018 12:33
[2018-06-04] MEDS: Cefepime HCl 2 GM in D5W 55 ML IVPB SCH (12:41)
--- NOTE | 2018-06-04 13:02 | NUR ---
CASE MANAGEMENT: REVIEW SI: ESRD ON HD . ACS . A-FIB RIGHT FEMORAL TEMPORARY HEMODIALYSIS CATHETER INSERTION 05/13 T 98.8 HR 93 RR 35 BP 137/54 SAT 100% MECH VENT FIO2 50 WBC 11.9 H/H 8.5/25.5 BUN 86 CR 3.6 IS: TPN IV Q24HR CEFEPIME IV Q24HR LEVOFLOXACIN IV Q24HR VASOPRESSIN IV Q24HR LEVOPHED IV Q24HR FLAGYL IV Q8HR ICU STATUS DCP: PATIENT IS FROM HOME
--- NOTE | 2018-06-04 15:00 | NUR ---
NURSE NOTES: 1st unit of FFP started. Cosigned with MINGO Romo. Pre-transfusion temp 98.4, HR 99, BP 79/68. Will continue to monitor.
--- NOTE | 2018-06-04 15:20 | NUR ---
NURSE NOTES: Pt continued having bloody stool. Cleaned and repositioned pt. Dr Chandler here to see the patient.
--- NOTE | 2018-06-04 16:00 | NUR ---
NURSE NOTES: 1st unit of FFP transfusion finished. Post transfusion temp 98.2, HR 111, 96/28. No adverse transfusion reaction noted.
--- NOTE | 2018-06-04 16:15 | General Progress Note ---
Progress Note Progress Note Transfused 2 prbc, 2 ffp noted AM labs plt, ffp, prbc still with bloody stool appreciate GI input trend labs Tomas Chandler Jun 04, 2018 16:14
--- NOTE | 2018-06-04 16:20 | NUR ---
NURSE NOTES: 2nd unit of FFP started. Pre transfusion temp 98.8, HR 17, BP 110/43. Pt is still actively bleeding rectally. Will continue to monitor.
--- NOTE | 2018-06-04 16:47 | General Progress Note ---
Assessment/Plan Assessment/Plan # Anemia of chronic disease due to underlying chronic medical issues, multifactorial --> Anemia w/u has been reviewed, reordered and ferritin is >2000 --> trend 10.3-->7.6-->8.9-->10.3-->9.5-->9.2-->8.3-->7.9-->8-->7.1-->9.-->9--> 8.5 --> Started to have rectal bleed and received blood transfusion 2 prbc 06/04/18 --> okay to give blood and products as patient unable to give consent, 2MD consent done --> continue Procrit 3x a week (started on 05/30) 3,000 sq dose # Thrombocytopenia due to septic shock --> vit K given for coagulopathy --> plt 163k-->116k-->83k-->98k-->105k-->109k-->108 # Small bowel perforation, s/p bowel resection, with Gram negative sepsis is on abx In ICU s/p Small bowel resection --> on broad spectrum abx --> on vanc/cefepime as per id--> now changed to zosyn, flagyl, micafungin--> on cefepime, levaquin and change per id --> s/p sb resection on 05/15, appreciate surg recs --> off pressors now # Hypofibrinoginemia -- potentially consumptive process given sepsis --> cryo given weeek of 05/23 --> fibrinogen 541 --> okay to give blood and products as patient unable to give consent, 2MD consent done # Lower extremity edema with an elevated BNP in a patient with renal failure on hemodialysis. --> on HD per Dr. Arroyo. --> currently has improved, continue to monitor # Atrial fib w rvr/flutter, being seen by cards, has converted to sr --> Cardiology is following, appreciate recs, echo was reviewed --> Currently denies any chest pain, completely rule out ACS --> EKG showed old inferior and anterior wall [place], but no ischemia --> ECHO with normal LV function --> now off hep gtt now --> off coumadin given drop in h/h # End-stage renal disease, on hemodialysis and also hyponatremia. --> Nephro is following, appreciate recs. HD approx 3x a week --> On intermittent HD # Respiratory failure on a vent, intubated # Mental status/confusion --> worsened at this time The time of note does not necessarily reflect the time of encounter Greatly appreciate consultation! Subjective ROS Limited/Unobtainable: Yes Allergies: Coded Allergies: No Known Allergies (Unverified , 11/12/12) Subjective 05/12: Pt resting in bed. No acute events. H/H stable. On abx. VS stable. 05/13: on pressors, on hep gtt, on steriods, abx, got hd, felice catheter in place : CT-A was negative, hep gtt as per cards, abg reviewed, moaning on exam, on ceftriaxone 05/15 :Pt remains in ICU. Currently undergoing HD. Pt on 2 cardiac drips for elevated Bp. WBC remains elevated. H/H stable. 05/16: s/p sb resection, In ICU s/p Small bowel resection on Amiodarone and Levophed drip. HR around 100. 05/17: Orally intubated on Ac 16, Vt 500, P 5 fio2 30%. Pt continues NPO at this time. Right upper arm and right FA IV sites patent and intact at this time. Amio gtt running 05/18: Pt remains in ICU. Pt for STAT HD. WBC remains elevated, afebrile. 05/19: getting hd periodically, no other events, vent to be weaned, labs reviewed, on dilaudid, ativan and fentanyl per pulm 05/21: prognosis is more guarded, no events to report, no f/c, but on two pressors now, on hep gtt for antonio thrombosis, hd as well 3x/week 05/22: on 2 pressors, seen by cards, renal, ryan drain draining improved, still on vent, converted to sr, on amio gtt, lactic acid downtrending, minimally responsive, on heparin gtt as well for antonio thrombus 05/23: patient to go to OR [facility] potential washout, ostomy, and line placement, fibrinogen low, needs cryoprecipirate, will also check inr/pt, cbc reviewed, electrolytes noted 05/24: Patient continues to be intubated on vent. He is s/p exploratory lap with wound washout and wound vac placement. 05/25: Pt is seen in the room, resting in bed. doing well since wound vac change , cbc reviewed, plt 163 05/26: Patient is is seen at bedside, intubated on vent. Wound vac still applied. No signs of pain at this time. Plt 116 . 1.7: again off pressors, plt somewhat lower, monitoring meds, on amio, antifungal as well, could be contributing, platelets and vitk given 05/28: had more surgeries yesterday with Right hemicolectomy, omentectomy & removal of wound-vac, off pressors, HD 05/29/18, on vent, stable 05/29: extubated but reintubated, on cefepime at this time, amiodarone, being seen by cards, procrit started 05/30: Pt is in ICU, Extubated and reintubated yesterday.Off Levophed and Heparin drip since surgery. On the Vent. 05/31: no events, remains on the vent, off pressors, received hd today 2.5L were removed 06/01: no fevers or chills, receiving hd as needed, on 1 pressors, not tolerating SBT very well 06/02: on a vent, no f/c noted, remains in the icu, poorly responsive at this time 06/03:Pt seen at bedside, in ICU on the vent. Off Amiodarone drip due to bradycardia. Off pressors, Had HD, leukocytosis trending down 14 today, plt 108 06/04: pt is lying in bed, on vent, Pt started to have rectal bleed and received blood transfusion 2 prbc. wbc 11, hgb 8.5 plt 73 Objective Last 24 Hour Vital Signs Date Time Temp Pulse Resp B/P (MAP) Pulse Ox O2 Delivery O2 Flow Rate FiO2 06/04/18 16:00 Mechanical Ventilator Mechanical Ventilator 06/04/18 16:00 98.8 111 28 107/43 (64) 100 06/04/18 16:00 50 06/04/18 15:01 96 29 50 06/04/18 15:00 92 26 118/42 (67) 100 06/04/18 14:00 100 30 104/32 (56) 100 06/04/18 13:00 98.1 92 22 97/35 (55) 100 06/04/18 12:49 99 27 50 06/04/18 12:00 50 06/04/18 12:00 Mechanical Ventilator Mechanical Ventilator 06/04/18 12:00 97 25 104/31 (55) 100 06/04/18 11:00 84 27 90/46 (61) 100 06/04/18 10:58 97 25 50 06/04/18 10:00 100 30 114/38 (63) 100 06/04/18 09:00 74 24 112/35 (60) 100 06/04/18 08:31 75 29 50 06/04/18 08:00 Mechanical Ventilator Mechanical Ventilator 06/04/18 08:00 50 06/04/18 08:00 91 25 115/44 (67) 100 06/04/18 07:42 93 06/04/18 07:05 90 35 50 06/04/18 07:00 98.8 93 30 130/68 (88) 100 06/04/18 06:00 85 27 137/54 (81) 100 06/04/18 05:00 92 29 136/61 (86) 100 06/04/18 04:56 94 32 50 06/04/18 04:30 92 28 97/48 (64) 92 06/04/18 04:00 75 06/04/18 04:00 98.6 86 26 88/53 (65) 95 06/04/18 04:00 50 06/04/18 04:00 Mechanical Ventilator Mechanical Ventilator 06/04/18 03:30 92 28 118/48 (71) 94 06/04/18 03:00 98/47 06/04/18 03:00 84 29 98/47 (64) 95 06/04/18 02:40 88 24 50 06/04/18 02:30 80 25 101/28 (52) 99 06/04/18 02:00 106/39 06/04/18 02:00 87 29 117/42 (67) 100 06/04/18 01:30 86 28 106/39 (61) 98 06/04/18 01:20 81 26 50 06/04/18 01:00 93/33 06/04/18 01:00 81 27 124/32 (62) 94 06/04/18 00:00 96 06/04/18 00:00 98.3 103 30 119/41 (67) 94 06/04/18 00:00 Mechanical Ventilator Mechanical Ventilator 06/04/18 00:00 60 06/03/18 23:30 69 25 116/43 (67) 97 06/03/18 23:00 81 27 90/77 (81) 94 06/03/18 23:00 90/77 06/03/18 23:00 89 26 60 06/03/18 22:30 86 27 133/102 (112) 96 06/03/18 22:00 86 26 129/93 (105) 95 06/03/18 22:00 129/93 06/03/18 21:30 104 28 122/31 (61) 92 06/03/18 21:00 112/53 06/03/18 21:00 130 28 112/53 (72) 92 06/03/18 20:30 126 27 110/60 (77) 95 06/03/18 20:30 104 25 80 06/03/18 20:00 98.4 103 30 59/38 (45) 91 06/03/18 20:00 100 06/03/18 20:00 Mechanical Ventilator Mechanical Ventilator 06/03/18 20:00 59/38 06/03/18 20:00 130 06/03/18 19:46 80 06/03/18 19:30 94 23 54/39 (44) 94 06/03/18 19:22 44/26 06/03/18 19:00 110 24 73/42 (52) 99 06/03/18 18:37 121 22 100 06/03/18 18:26 Mechanical Ventilator 06/03/18 18:00 95 23 91/44 (60) 97 06/03/18 17:19 101 31 40 06/03/18 17:00 99 27 112/40 (64) 98 Intake and Output 06/03/18 06/04/18 18:59 06:59 Intake Total 1114.170 ml 3005.421 ml Output Total 2760 ml 750 ml Balance -1645.830 ml 2255.421 ml IV Total 1114.170 ml 1905.421 ml Blood Product 1100 ml Stool Total 1400 ml Emesis 600 ml Chest Tube Drainage Total 150 ml Drainage Total 360 ml Hemodialysis UF 1000 ml # Bowel Movements 1 1 Laboratory Tests 06/04/18 04:20: White Blood Count 11.9H, Red Blood Count 2.88L, Hemoglobin 8.5L, Hematocrit 25.5L, Mean Corpuscular Volume 88, Mean Corpuscular Hemoglobin 29.6, Mean Corpuscular Hemoglobin Concent 33.4, Red Cell Distribution Width 14.5, Platelet Count 73L, Mean Platelet Volume 9.0, Neutrophils (%) (Auto) , Lymphocytes (%) ( Auto) , Monocytes (%) (Auto) , Eosinophils (%) (Auto) , Basophils (%) (Auto) , Prothrombin Time 14.3H, Prothromb Time International Ratio 1.4H, Activated Partial Thromboplast Time 38H, Sodium Level 143, Potassium Level 3.9, Chloride Level 106, Carbon Dioxide Level 26, Anion Gap 11, Blood Urea Nitrogen 86H, Creatinine 3.6H, Estimat Glomerular Filtration Rate , Glucose Level 123H, Uric Acid 4.0, Calcium Level 8.2L, Phosphorus Level 5.6H, Magnesium Level 2.2, Total Bilirubin 0.4, Gamma Glutamyl Transpeptidase 30, Aspartate Amino Transf (AST/ SGOT) 26, Alanine Aminotransferase (ALT/SGPT) 12, Alkaline Phosphatase 111, C- Reactive Protein, Quantitative 13.2H, Pro-B-Type Natriuretic Peptide 9660H, Total Protein 5.0L, Albumin 1.8L, Globulin 3.2, Albumin/Globulin Ratio 0.6L, Triglycerides Level 90, Cholesterol Level 69, LDL Cholesterol 30, HDL Cholesterol 21L, Cholesterol/HDL Ratio 3.3 06/04/18 10:06: Arterial Blood pH 7.377, Arterial Blood Partial Pressure CO2 43.0, Arterial Blood Partial Pressure O2 143.9H, Arterial Blood HCO3 24.7, Arterial Blood Oxygen Saturation 98.2, Arterial Blood Base Excess -0.5, Luiz Test Positive Height (Feet): 5 Height (Inches): 5.00 Weight (Pounds): 190 Objective PE: VITAL SIGNS: Have been reviewed HEENT: PERRLA. intubated, vent++ NECK: Supple. No lymphadenopathy CHEST: ++ intubated CARDIOVASCULAR: Tachycardic. GASTROINTESTINAL: Distended. Positive bowel sounds. Nontender. No organomegaly. ++ ryan drain in place EXTREMITY: 2+ edema. NEURO: responsive to simple command Reinaldo Leon MD Jun 04, 2018 16:47
--- NOTE | 2018-06-04 17:22 | Pulmonolgy Critical Care Note ---
Critical Care - Asmt/Plan Problems: (1) Shock (2) Hypoxemia (3) Elevated d-dimer Assessment & Plan: S/P neg CT-A + UE DVT (4) Hypotension (5) Atrial fibrillation (6) ESRD (end stage renal disease) on dialysis (7) ACS (acute coronary syndrome) (8) Sacral decubitus ulcer, stage III (9) S/P cholecystectomy (10) Serratia sepsis (11) S/P exploratory laparotomy (12) Perforated viscus (13) Thrombocythemia (14) BRBPR (bright red blood per rectum) Assessment/Plan: -ABG -Continue AC 20 PC delta P 25 -Tirate down FiO2 and PEEP to keep SaO2 > 90% -CXR -Off NE -Continue HC to 12.5 BID and taper -Continue current vent settings -HD per renal as able -[facility] held -Monitor CBC, transfuse as needed -Monitor for further bleeding -Flucon, Flagyl, levaquin, Cefepime per ID, F/U Cx's, monitor WCt -NPO , TPN -F/U surgery recs -FC D/W Dr. Chandler D/W RN and RT CCT 45 Critical Care - Objective Last 24 Hour Vital Signs Date Time Temp Pulse Resp B/P (MAP) Pulse Ox O2 Delivery O2 Flow Rate FiO2 06/04/18 17:00 107 28 111/43 (65) 100 06/04/18 16:55 93 27 40 06/04/18 16:00 Mechanical Ventilator Mechanical Ventilator 06/04/18 16:00 98.8 111 28 107/43 (64) 100 06/04/18 16:00 50 06/04/18 15:42 94 06/04/18 15:01 96 29 50 06/04/18 15:00 92 26 118/42 (67) 100 06/04/18 14:00 100 30 104/32 (56) 100 06/04/18 13:00 98.1 92 22 97/35 (55) 100 06/04/18 12:49 99 27 50 06/04/18 12:05 90 06/04/18 12:00 50 06/04/18 12:00 Mechanical Ventilator Mechanical Ventilator 06/04/18 12:00 97 25 104/31 (55) 100 06/04/18 11:00 84 27 90/46 (61) 100 06/04/18 10:58 97 25 50 06/04/18 10:00 100 30 114/38 (63) 100 06/04/18 09:00 74 24 112/35 (60) 100 06/04/18 08:31 75 29 50 06/04/18 08:00 Mechanical Ventilator Mechanical Ventilator 06/04/18 08:00 50 06/04/18 08:00 91 25 115/44 (67) 100 06/04/18 07:42 93 06/04/18 07:05 90 35 50 06/04/18 07:00 98.8 93 30 130/68 (88) 100 06/04/18 06:00 85 27 137/54 (81) 100 06/04/18 05:00 92 29 136/61 (86) 100 06/04/18 04:56 94 32 50 06/04/18 04:30 92 28 97/48 (64) 92 06/04/18 04:00 75 06/04/18 04:00 98.6 86 26 88/53 (65) 95 06/04/18 04:00 50 06/04/18 04:00 Mechanical Ventilator Mechanical Ventilator 06/04/18 03:30 92 28 118/48 (71) 94 06/04/18 03:00 98/47 06/04/18 03:00 84 29 98/47 (64) 95 06/04/18 02:40 88 24 50 06/04/18 02:30 80 25 101/28 (52) 99 06/04/18 02:00 106/39 06/04/18 02:00 87 29 117/42 (67) 100 06/04/18 01:30 86 28 106/39 (61) 98 06/04/18 01:20 81 26 50 06/04/18 01:00 93/33 06/04/18 01:00 81 27 124/32 (62) 94 06/04/18 00:00 96 06/04/18 00:00 98.3 103 30 119/41 (67) 94 06/04/18 00:00 Mechanical Ventilator Mechanical Ventilator 06/04/18 00:00 60 06/03/18 23:30 69 25 116/43 (67) 97 06/03/18 23:00 81 27 90/77 (81) 94 06/03/18 23:00 90/77 06/03/18 23:00 89 26 60 06/03/18 22:30 86 27 133/102 (112) 96 06/03/18 22:00 86 26 129/93 (105) 95 06/03/18 22:00 129/93 06/03/18 21:30 104 28 122/31 (61) 92 06/03/18 21:00 112/53 06/03/18 21:00 130 28 112/53 (72) 92 06/03/18 20:30 126 27 110/60 (77) 95 06/03/18 20:30 104 25 80 06/03/18 20:00 98.4 103 30 59/38 (45) 91 06/03/18 20:00 100 06/03/18 20:00 Mechanical Ventilator Mechanical Ventilator 06/03/18 20:00 59/38 06/03/18 20:00 130 06/03/18 19:46 80 06/03/18 19:30 94 23 54/39 (44) 94 06/03/18 19:22 44/26 06/03/18 19:00 110 24 73/42 (52) 99 06/03/18 18:37 121 22 100 06/03/18 18:26 Mechanical Ventilator 06/03/18 18:00 95 23 91/44 (60) 97 06/03/18 17:19 101 31 40 Status: obtunded Condition: critical, other - ETT, OGT HEENT: atraumatic, normocephalic Lungs: rhonchi Heart: HR/BP stable Abdomen: soft, non-tender, active bowel sounds, other - dressed VELVET Extremities: edema - 1-2+ EMERITA Decubiti: location - sacral , stage - DTI Accucheck: 126 Critical Care - Subjective ROS Limited/Unobtainable: Yes ICU Day: 21 Intubation Day: 7 Interval Events: After HD last night patient started having BRBPR, bloody oral and ETT secretions INR 1.4, plt 70s S/P 2U FFP last night & another 2, 2 PRBC + 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, S/P 1 U platelets Ongoing bleeding Condition: critical IV Access: central EKG Rhythm: Sinus Rhythm FI02: 40 Vent Support Breath Rate: 20 Vent Support Mode: AC Vent Tidal Volume: 500 Sputum Amount: Moderate PEEP: 10.0 PIP: 36 Secretions: bloody Fluids: SLIV Tube Feeding Amount: 0 I&O: Intake and Output 06/03/18 06/04/18 19:00 07:00 Intake Total 1214.170 ml 2905.421 ml Output Total 2610 ml 880 ml Balance -1395.830 ml 2025.421 ml IV Total 1214.170 ml 1805.421 ml Blood Product 1100 ml Stool Total 1400 ml Emesis 600 ml Chest Tube Drainage Total 150 ml Drainage Total 210 ml 130 ml Hemodialysis UF 1000 ml # Bowel Movements 1 1 Subjective: CROW ET-Tube: 7.5 ET Position: 24 Labs: Laboratory Tests Test 06/04/18 04:20 06/04/18 10:06 White Blood Count 11.9 K/UL (4.8-10.8) H Red Blood Count 2.88 M/UL (4.70-6.10) L Hemoglobin 8.5 G/DL (14.2-18.0) L Hematocrit 25.5 % (42.0-52.0) L Mean Corpuscular Volume 88 FL (80-99) Mean Corpuscular Hemoglobin 29.6 PG (27.0-31.0) Mean Corpuscular Hemoglobin Concent 33.4 G/DL (32.0-36.0) Red Cell Distribution Width 14.5 % (11.6-14.8) Platelet Count 73 K/UL (150-450) L Mean Platelet Volume 9.0 FL (6.5-10.1) Neutrophils (%) (Auto) % (45.0-75.0) Lymphocytes (%) (Auto) % (20.0-45.0) Monocytes (%) (Auto) % (1.0-10.0) Eosinophils (%) (Auto) % (0.0-3.0) Basophils (%) (Auto) % (0.0-2.0) Prothrombin Time 14.3 SEC (9.30-11.50) H Prothromb Time International Ratio 1.4 (0.9-1.1) H Activated Partial Thromboplast Time 38 SEC (23-33) H Sodium Level 143 MMOL/L (136-145) Potassium Level 3.9 MMOL/L (3.5-5.1) Chloride Level 106 MMOL/L (98-107) Carbon Dioxide Level 26 MMOL/L (21-32) Anion Gap 11 mmol/L (5-15) Blood Urea Nitrogen 86 mg/dL (7-18) H Creatinine 3.6 MG/DL (0.55-1.30) H Estimat Glomerular Filtration Rate mL/min (>60) Glucose Level 123 MG/DL (74-106) H Uric Acid 4.0 MG/DL (2.6-7.2) Calcium Level 8.2 MG/DL (8.5-10.1) L Phosphorus Level 5.6 MG/DL (2.5-4.9) H Magnesium Level 2.2 MG/DL (1.8-2.4) Total Bilirubin 0.4 MG/DL (0.2-1.0) Gamma Glutamyl Transpeptidase 30 U/L (5-85) Aspartate Amino Transf (AST/SGOT) 26 U/L (15-37) Alanine Aminotransferase (ALT/SGPT) 12 U/L (12-78) Alkaline Phosphatase 111 U/L (46-116) C-Reactive Protein, Quantitative 13.2 mg/dL (0.00-0.90) H Pro-B-Type Natriuretic Peptide 9660 pg/mL (0-125) H Total Protein 5.0 G/DL (6.4-8.2) L Albumin 1.8 G/DL (3.4-5.0) L Globulin 3.2 g/dL Albumin/Globulin Ratio 0.6 (1.0-2.7) L Triglycerides Level 90 MG/DL (30-150) Cholesterol Level 69 MG/DL (< 200) LDL Cholesterol 30 mg/dL (<100) HDL Cholesterol 21 MG/DL (40-60) L Cholesterol/HDL Ratio 3.3 (3.3-4.4) Arterial Blood pH 7.377 (7.350-7.450) Arterial Blood Partial Pressure CO2 43.0 mmHg (35.0-45.0) Arterial Blood Partial Pressure O2 143.9 mmHg (75.0-100.0) H Arterial Blood HCO3 24.7 mmol/L (22.0-26.0) Arterial Blood Oxygen Saturation 98.2 % (95-100) Arterial Blood Base Excess -0.5 (-2-2) Luiz Test Positive Daryl Jones MD Jun 04, 2018 17:22
[2018-06-04] MEDS: TPN IV SCH (18:33)
[2018-06-04] MEDS: FAT EMULSION 20% IV SCH (18:33)
--- NOTE | 2018-06-04 18:37 | NUR ---
NURSE NOTES: Spoke with Devan Pharmacist. Started TPN earlier than due time since it was started earlier yesterday. Pharmacy will prepare the new bag with extra volume tomorrow as per Devan. Will endorse to next shift.
[2018-06-04] MEDS: Norepinephrine Bitartrate 8 MG in D5W 500ml 492 ML IV SCH (18:42)
--- NOTE | 2018-06-04 18:42 | NUR ---
NURSE NOTES: Started Levophed again since BP 74/29. Will closely monitor patient.
--- NOTE | 2018-06-04 19:00 | NUR ---
NURSE NOTES: Patient received from Rosy AGUILA. Patient is awake, does not follow commands but does respond to painful stimulus. New Vent settings was placed today in AM shift by Dr. Jones. AC 20, Pressure Support of 25, FiO2 of 25% and peep of 10. Saturating now at 100%. Patient noted to have multiple wounds, skin breakdown is noted. TPN running at 85.417ml/hr. Accuchecks Q 4. OGT is in place and under low intermittent suction. Emesis is dark brown/maroon in color. Patient does have active GI bleed; ALL MDs are already aware. Left Subclavian TLC running TPN, Levophed and ABX. R femoral Donis Catheter for HD access with Pig-tail SL. Patient does have R arm DVT and L arm old shunt that is not working. Current BP are 91/36, HR 104 ST, Temperature of 98.0F. RR 29, Spo2 100%. Dr. Jones ordered Fentanyl gtt for patient. with RASS score to be at -2.
--- NOTE | 2018-06-04 19:10 | NUR ---
HAND-OFF: Report given to MINGO Shetty.
--- NOTE | 2018-06-04 20:00 | NUR ---
NURSE NOTES: Dr. Pham called to patients update status. Informed him that he was still having active GI bleed and that blood PRBC are being sent to Lab from outside source. Stat CBC/CMP ordered.
--- NOTE | 2018-06-04 20:15 | NUR ---
NURSE NOTES: Active GI bleed, dark red in color with large clots.
[2018-06-04] MEDS: Dyna-Hex 2% Top Sol 2oz TOPIC SCH (20:25)
[2018-06-04] MEDS: Nitroglycerin Patch 0.4mg TDERMAL SCH (20:25)
--- NOTE | 2018-06-04 20:30 | NUR ---
NURSE NOTES: PRBC arrived to lab. Hg came back to be 4.1. Informed GI and added 2 more PRBC on top of the 2 already ordered for a total of 4 PRBC to be given bolus. MD also ordered Go-Lytley for possible procedure in the AM.
--- NOTE | 2018-06-04 20:30 | NUR ---
NURSE NOTES: 2 bags of platelets ordered by GI, called Lab to see if they have any available and they said its being ordered at the moment and should arrive within 4-6 hours.
[2018-06-04 21:16] LABS: HEMATOCRIT 12.3 % (42.0-52.0); MEAN CORPUSCULAR VOLUME 87 FL (80-99); PLATELET COUNT 58 K/UL (150-450); RED BLOOD COUNT 1.41 M/UL (4.70-6.10); WHITE BLOOD COUNT 10.4 K/UL (4.8-10.8)
[2018-06-04 21:21] LABS: HEMOGLOBIN 4.1 G/DL (14.2-18.0)
--- NOTE | 2018-06-04 21:34 | General Progress Note ---
Assessment/Plan Assessment/Plan Assessment - hypovolemic shock, back on pressors, severe anemia - GI bleed, likely from anastomosis , based on timing and presentation - discussed with surgery - not a good candidate for surgical intervention/ repair of anastomosis - Likewise, not stable from a GI standpoint for anesthesia and endoscopy at this time - abdominal infection - s/p exlap, multi-organism culture - resp failure - on vent - renal failure - malnutrition - on TPN - Px very poor Recommendation - attempt at patient stabilization overnight (Blood, FFP, Platelet, pressors) - golytely purge - in preparation of possible intervention - Interventional angiography not available at [facility] [place] - can consider therapeutic colonoscopy but at risk for perforating anastomosis - Check C Diff - negative - TPN per renal - Abx per ID - follow labs - vent care - HD - guarded Subjective Allergies: Coded Allergies: No Known Allergies (Unverified , 11/12/12) Subjective above noted intubated d/w RN More rectal bleeding reported Now hypotensive s/p 2 units of RBC yesterday H&H lower today, this am, despite Tx s/p 2 units of FFP and 2 units of platelets today just received call from RN --> Hg 4.1 Objective Last 24 Hour Vital Signs Date Time Temp Pulse Resp B/P (MAP) Pulse Ox O2 Delivery O2 Flow Rate FiO2 06/04/18 20:25 30 Mechanical Ventilator 40 06/04/18 20:25 97/35 06/04/18 19:30 98 30 40 06/04/18 19:00 99 28 93/19 (43) 100 06/04/18 18:42 74/29 06/04/18 18:00 104 31 83/49 (60) 100 06/04/18 17:00 107 28 111/43 (65) 100 06/04/18 16:55 93 27 40 06/04/18 16:00 Mechanical Ventilator Mechanical Ventilator 06/04/18 16:00 40 06/04/18 16:00 98.8 111 28 107/43 (64) 100 06/04/18 15:42 94 06/04/18 15:01 96 29 50 06/04/18 15:00 92 26 118/42 (67) 100 06/04/18 14:00 100 30 104/32 (56) 100 06/04/18 13:00 98.1 92 22 97/35 (55) 100 06/04/18 12:49 99 27 50 06/04/18 12:05 90 06/04/18 12:00 Mechanical Ventilator Mechanical Ventilator 06/04/18 12:00 97 25 104/31 (55) 100 06/04/18 12:00 50 06/04/18 11:00 84 27 90/46 (61) 100 06/04/18 10:58 97 25 50 06/04/18 10:00 100 30 114/38 (63) 100 06/04/18 09:00 74 24 112/35 (60) 100 06/04/18 08:31 75 29 50 06/04/18 08:00 Mechanical Ventilator Mechanical Ventilator 06/04/18 08:00 50 06/04/18 08:00 91 25 115/44 (67) 100 06/04/18 07:42 93 06/04/18 07:05 90 35 50 06/04/18 07:00 98.8 93 30 130/68 (88) 100 06/04/18 06:00 85 27 137/54 (81) 100 06/04/18 05:00 92 29 136/61 (86) 100 06/04/18 04:56 94 32 50 06/04/18 04:30 92 28 97/48 (64) 92 06/04/18 04:00 75 06/04/18 04:00 98.6 86 26 88/53 (65) 95 06/04/18 04:00 50 06/04/18 04:00 Mechanical Ventilator Mechanical Ventilator 06/04/18 03:30 92 28 118/48 (71) 94 06/04/18 03:00 98/47 06/04/18 03:00 84 29 98/47 (64) 95 06/04/18 02:40 88 24 50 06/04/18 02:30 80 25 101/28 (52) 99 06/04/18 02:00 106/39 06/04/18 02:00 87 29 117/42 (67) 100 06/04/18 01:30 86 28 106/39 (61) 98 06/04/18 01:20 81 26 50 06/04/18 01:00 93/33 06/04/18 01:00 81 27 124/32 (62) 94 06/04/18 00:00 96 06/04/18 00:00 98.3 103 30 119/41 (67) 94 06/04/18 00:00 Mechanical Ventilator Mechanical Ventilator 06/04/18 00:00 60 06/03/18 23:30 69 25 116/43 (67) 97 06/03/18 23:00 81 27 90/77 (81) 94 06/03/18 23:00 90/77 06/03/18 23:00 89 26 60 06/03/18 22:30 86 27 133/102 (112) 96 06/03/18 22:00 86 26 129/93 (105) 95 06/03/18 22:00 129/93 06/03/18 21:30 104 28 122/31 (61) 92 06/03/18 21:00 112/53 06/03/18 21:00 130 28 112/53 (72) 92 Intake and Output 06/03/18 06/04/18 19:00 07:00 Intake Total 1214.170 ml 2905.421 ml Output Total 2610 ml 880 ml Balance -1395.830 ml 2025.421 ml IV Total 1214.170 ml 1805.421 ml Blood Product 1100 ml Stool Total 1400 ml Emesis 600 ml Chest Tube Drainage Total 150 ml Drainage Total 210 ml 130 ml Hemodialysis UF 1000 ml # Bowel Movements 1 1 Laboratory Tests 06/04/18 04:20: White Blood Count 11.9H, Red Blood Count 2.88L, Hemoglobin 8.5L, Hematocrit 25.5L, Mean Corpuscular Volume 88, Mean Corpuscular Hemoglobin 29.6, Mean Corpuscular Hemoglobin Concent 33.4, Red Cell Distribution Width 14.5, Platelet Count 73L, Mean Platelet Volume 9.0, Neutrophils (%) (Auto) , Lymphocytes (%) ( Auto) , Monocytes (%) (Auto) , Eosinophils (%) (Auto) , Basophils (%) (Auto) , Prothrombin Time 14.3H, Prothromb Time International Ratio 1.4H, Activated Partial Thromboplast Time 38H, Sodium Level 143, Potassium Level 3.9, Chloride Level 106, Carbon Dioxide Level 26, Anion Gap 11, Blood Urea Nitrogen 86H, Creatinine 3.6H, Estimat Glomerular Filtration Rate , Glucose Level 123H, Uric Acid 4.0, Calcium Level 8.2L, Phosphorus Level 5.6H, Magnesium Level 2.2, Total Bilirubin 0.4, Gamma Glutamyl Transpeptidase 30, Aspartate Amino Transf (AST/ SGOT) 26, Alanine Aminotransferase (ALT/SGPT) 12, Alkaline Phosphatase 111, C- Reactive Protein, Quantitative 13.2H, Pro-B-Type Natriuretic Peptide 9660H, Total Protein 5.0L, Albumin 1.8L, Globulin 3.2, Albumin/Globulin Ratio 0.6L, Triglycerides Level 90, Cholesterol Level 69, LDL Cholesterol 30, HDL Cholesterol 21L, Cholesterol/HDL Ratio 3.3 06/04/18 10:06: Arterial Blood pH 7.377, Arterial Blood Partial Pressure CO2 43.0, Arterial Blood Partial Pressure O2 143.9H, Arterial Blood HCO3 24.7, Arterial Blood Oxygen Saturation 98.2, Arterial Blood Base Excess -0.5, Luiz Test Positive 06/04/18 17:42: Arterial Blood pH 7.410, Arterial Blood Partial Pressure CO2 37.4, Arterial Blood Partial Pressure O2 145.0H, Arterial Blood HCO3 23.2, Arterial Blood Oxygen Saturation 98.0, Arterial Blood Base Excess -1.1, Luiz Test Positive Height (Feet): 5 Height (Inches): 5.00 Weight (Pounds): 190 Objective Intubated NCAT ETT / OGT Supple Coarse BS RR abd more flat, (+) large dressing with VELVET x 2 no edema withdrawn Lisa Jain MD Jun 04, 2018 21:34
--- NOTE | 2018-06-04 21:54 | General Progress Note ---
Assessment/Plan Problem List: (1) ACS (acute coronary syndrome) ICD Codes: I24.9 - Acute ischemic heart disease, unspecified SNOMED: 722336735 (2) ESRD (end stage renal disease) on dialysis ICD Codes: N18.6 - End stage renal disease; Z99.2 - Dependence on renal dialysis SNOMED: 491411051 (3) Depression ICD Codes: F32.9 - Major depressive disorder, single episode, unspecified SNOMED: 15594111 (4) Anemia ICD Codes: D64.9 - Anemia, unspecified SNOMED: 664951272 (5) Sacral decubitus ulcer, stage III ICD Codes: L89.153 - Pressure ulcer of sacral region, stage 3 SNOMED: 096969827, 502537816 (6) Major depression ICD Codes: F32.9 - Major depressive disorder, single episode, unspecified SNOMED: 304675733 (7) anxiety disorder (8) Atrial fibrillation ICD Codes: I48.91 - Unspecified atrial fibrillation SNOMED: 14425693 (9) Hypoxemia ICD Codes: R09.02 - Hypoxemia SNOMED: 483234421 (10) Hypotension ICD Codes: I95.9 - Hypotension, unspecified SNOMED: 63119576 (11) Shock ICD Codes: R57.9 - Shock, unspecified SNOMED: 55542428 (12) Elevated d-dimer ICD Codes: R79.89 - Other specified abnormal findings of blood chemistry SNOMED: 790738238 (13) encephalopathy due to metabolic factor Status: deteriorating Assessment/Plan rectal bleeding severe anemia on pressor hypotensive critical condition intubated discussed w dr marquez and dr lewis re treating anemia s/p washout of pus / multiple exploratory lap esrd on hd s/p septic shick s/p perforated viscuis after cholycestectomy in another hospital not improving poor prognosis reviewed chart and labs Subjective ROS Limited/Unobtainable: Yes Allergies: Coded Allergies: No Known Allergies (Unverified , 11/12/12) Objective Last 24 Hour Vital Signs Date Time Temp Pulse Resp B/P (MAP) Pulse Ox O2 Delivery O2 Flow Rate FiO2 06/04/18 20:58 97 28 40 06/04/18 20:25 30 Mechanical Ventilator 40 06/04/18 20:25 97/35 06/04/18 19:30 98 30 40 06/04/18 19:00 99 28 93/19 (43) 100 06/04/18 18:42 74/29 06/04/18 18:00 104 31 83/49 (60) 100 06/04/18 17:00 107 28 111/43 (65) 100 06/04/18 16:55 93 27 40 06/04/18 16:00 Mechanical Ventilator Mechanical Ventilator 06/04/18 16:00 40 06/04/18 16:00 98.8 111 28 107/43 (64) 100 06/04/18 15:42 94 06/04/18 15:01 96 29 50 06/04/18 15:00 92 26 118/42 (67) 100 06/04/18 14:00 100 30 104/32 (56) 100 06/04/18 13:00 98.1 92 22 97/35 (55) 100 06/04/18 12:49 99 27 50 06/04/18 12:05 90 06/04/18 12:00 Mechanical Ventilator Mechanical Ventilator 06/04/18 12:00 97 25 104/31 (55) 100 06/04/18 12:00 50 06/04/18 11:00 84 27 90/46 (61) 100 06/04/18 10:58 97 25 50 06/04/18 10:00 100 30 114/38 (63) 100 06/04/18 09:00 74 24 112/35 (60) 100 06/04/18 08:31 75 29 50 06/04/18 08:00 Mechanical Ventilator Mechanical Ventilator 06/04/18 08:00 50 06/04/18 08:00 91 25 115/44 (67) 100 06/04/18 07:42 93 06/04/18 07:05 90 35 50 06/04/18 07:00 98.8 93 30 130/68 (88) 100 06/04/18 06:00 85 27 137/54 (81) 100 06/04/18 05:00 92 29 136/61 (86) 100 06/04/18 04:56 94 32 50 06/04/18 04:30 92 28 97/48 (64) 92 06/04/18 04:00 75 06/04/18 04:00 98.6 86 26 88/53 (65) 95 06/04/18 04:00 50 06/04/18 04:00 Mechanical Ventilator Mechanical Ventilator 06/04/18 03:30 92 28 118/48 (71) 94 06/04/18 03:00 98/47 06/04/18 03:00 84 29 98/47 (64) 95 06/04/18 02:40 88 24 50 06/04/18 02:30 80 25 101/28 (52) 99 06/04/18 02:00 106/39 06/04/18 02:00 87 29 117/42 (67) 100 06/04/18 01:30 86 28 106/39 (61) 98 06/04/18 01:20 81 26 50 06/04/18 01:00 93/33 06/04/18 01:00 81 27 124/32 (62) 94 06/04/18 00:00 96 06/04/18 00:00 98.3 103 30 119/41 (67) 94 06/04/18 00:00 Mechanical Ventilator Mechanical Ventilator 06/04/18 00:00 60 06/03/18 23:30 69 25 116/43 (67) 97 06/03/18 23:00 81 27 90/77 (81) 94 06/03/18 23:00 90/77 06/03/18 23:00 89 26 60 06/03/18 22:30 86 27 133/102 (112) 96 06/03/18 22:00 86 26 129/93 (105) 95 06/03/18 22:00 129/93 Intake and Output 06/03/18 06/04/18 19:00 07:00 Intake Total 1214.170 ml 2905.421 ml Output Total 2610 ml 880 ml Balance -1395.830 ml 2025.421 ml IV Total 1214.170 ml 1805.421 ml Blood Product 1100 ml Stool Total 1400 ml Emesis 600 ml Chest Tube Drainage Total 150 ml Drainage Total 210 ml 130 ml Hemodialysis UF 1000 ml # Bowel Movements 1 1 Laboratory Tests 06/04/18 04:20: White Blood Count 11.9H, Red Blood Count 2.88L, Hemoglobin 8.5L, Hematocrit 25.5L, Mean Corpuscular Volume 88, Mean Corpuscular Hemoglobin 29.6, Mean Corpuscular Hemoglobin Concent 33.4, Red Cell Distribution Width 14.5, Platelet Count 73L, Mean Platelet Volume 9.0, Neutrophils (%) (Auto) , Lymphocytes (%) ( Auto) , Monocytes (%) (Auto) , Eosinophils (%) (Auto) , Basophils (%) (Auto) , Prothrombin Time 14.3H, Prothromb Time International Ratio 1.4H, Activated Partial Thromboplast Time 38H, Sodium Level 143, Potassium Level 3.9, Chloride Level 106, Carbon Dioxide Level 26, Anion Gap 11, Blood Urea Nitrogen 86H, Creatinine 3.6H, Estimat Glomerular Filtration Rate , Glucose Level 123H, Uric Acid 4.0, Calcium Level 8.2L, Phosphorus Level 5.6H, Magnesium Level 2.2, Total Bilirubin 0.4, Gamma Glutamyl Transpeptidase 30, Aspartate Amino Transf (AST/ SGOT) 26, Alanine Aminotransferase (ALT/SGPT) 12, Alkaline Phosphatase 111, C- Reactive Protein, Quantitative 13.2H, Pro-B-Type Natriuretic Peptide 9660H, Total Protein 5.0L, Albumin 1.8L, Globulin 3.2, Albumin/Globulin Ratio 0.6L, Triglycerides Level 90, Cholesterol Level 69, LDL Cholesterol 30, HDL Cholesterol 21L, Cholesterol/HDL Ratio 3.3 06/04/18 10:06: Arterial Blood pH 7.377, Arterial Blood Partial Pressure CO2 43.0, Arterial Blood Partial Pressure O2 143.9H, Arterial Blood HCO3 24.7, Arterial Blood Oxygen Saturation 98.2, Arterial Blood Base Excess -0.5, Luiz Test Positive 06/04/18 17:42: Arterial Blood pH 7.410, Arterial Blood Partial Pressure CO2 37.4, Arterial Blood Partial Pressure O2 145.0H, Arterial Blood HCO3 23.2, Arterial Blood Oxygen Saturation 98.0, Arterial Blood Base Excess -1.1, Luiz Test Positive 06/04/18 21:00: White Blood Count 10.4, Red Blood Count 1.41L, Hemoglobin 4.1#*L, Hematocrit 12.3#L, Mean Corpuscular Volume 87, Mean Corpuscular Hemoglobin 29.3, Mean Corpuscular Hemoglobin Concent 33.6, Red Cell Distribution Width 14.0, Platelet Count 58L, Mean Platelet Volume 8.2, Neutrophils (%) (Auto) , Lymphocytes (%) ( Auto) , Monocytes (%) (Auto) , Eosinophils (%) (Auto) , Basophils (%) (Auto) , Neutrophils % (Manual) [Pending], Lymphocytes % (Manual) [Pending], Platelet Estimate [Pending], Platelet Morphology [Pending] Height (Feet): 5 Height (Inches): 5.00 Weight (Pounds): 190 General Appearance: lethargic Abdomen: tender Samantha Head MD Jun 04, 2018 21:54
--- NOTE | 2018-06-04 22:00 | NUR ---
NURSE NOTES: Patient cleaned, Gelatinous stool with dark blood noted. Patient cleaned and dried.
[2018-06-04] MEDS ORDERED: Nulytely 4L NG SCH (23:00)
--- NOTE | 2018-06-04 23:00 | NUR ---
NURSE NOTES: 4 PRBC given. Patient tolerated transfusion well. Go NuLytely given, 8oz Q 30 min as per ordered. Turned off Intermittent suctioning for now. Still awaiting for platelets.
[2018-06-04 23:59] LABS: HEMATOCRIT 27.1 % (42.0-52.0); HEMOGLOBIN 9.2 G/DL (14.2-18.0); MEAN CORPUSCULAR VOLUME 88 FL (80-99); PLATELET COUNT 47 K/UL (150-450); RED BLOOD COUNT 3.09 M/UL (4.70-6.10); WHITE BLOOD COUNT 12.8 K/UL (4.8-10.8)
[2018-06-05] VITALS (48 sets, daily range): BP systolic 65–127; BP diastolic 12–69
--- NOTE | 2018-06-05 | NUR ---
NURSE NOTES: Platelets arrived from [place], Now being transfused. Patient had bloody diarrhea with logs of large clots.
[2018-06-05 00:15] LABS: ANION GAP 15 mmol/L (5-15); BLOOD UREA NITROGEN 100 mg/dL (7-18); CALCIUM 7.4 MG/DL (8.5-10.1); CARBON DIOXIDE 21 MMOL/L (21-32); CHLORIDE 111 MMOL/L (98-107); CREATININE 4.1 MG/DL (0.55-1.30); POTASSIUM 3.3 MMOL/L (3.5-5.1); SODIUM 147 MMOL/L (136-145)
[2018-06-05 00:22] LABS: ALANINE AMINOTRANSFERASE 12 U/L (12-78); ALBUMIN 1.4 G/DL (3.4-5.0); ALBUMIN/GLOBULIN RATIO 0.5 (1.0-2.7); ALKALINE PHOSPHATASE 80 U/L (46-116); ASPARTATE AMINO TRANSFERASE 29 U/L (15-37); BILIRUBIN,TOTAL 0.4 MG/DL (0.2-1.0)
[2018-06-05] MEDS: NovoLOG Insulin Flexpen SUBQ SCH ×6 (01:00→21:02)
--- NOTE | 2018-06-05 01:00 | NUR ---
NURSE NOTES: Platelets infused. Patients temperature is 99.7F. No acute respiratory distress. Patient still having active bleed with large clots. Patient still on pressors. BP stable with pressors.
--- NOTE | 2018-06-05 03:00 | NUR ---
NURSE NOTES: Patient cleaned again, large active bleed ongoing. BP stable for now with the pressors. Will continue to monitor.
--- NOTE | 2018-06-05 04:00 | NUR ---
NURSE NOTES: Patient cleaned again, large blood clots noted. Temperature noted to be 99.9F. Fan at bedside. Cooling measure initiated. Morning labs drawned. Suction.
[2018-06-05] MEDS: Norepinephrine Bitartrate 8 MG in D5W 500ml 492 ML IV SCH (05:42)
[2018-06-05 05:53] LABS: HEMATOCRIT 19.3 % (42.0-52.0); MEAN CORPUSCULAR VOLUME 88 FL (80-99); PLATELET COUNT 84 K/UL (150-450); RED CELL DISTRIBUTION WIDTH 12.9 % (11.6-14.8); WHITE BLOOD COUNT 11.9 K/UL (4.8-10.8)
[2018-06-05 05:56] LABS: INR 1.4 (0.9-1.1)
[2018-06-05 06:16] LABS: HEMOGLOBIN 6.6 G/DL (14.2-18.0)
--- NOTE | 2018-06-05 06:50 | NUR ---
RESPIRATORY NOTE: Patient received mechanically ventilated on PB840 with current ordered vent settings. Patient is orally intubated with an ETT tube size 7.5 with 24cm at the lip secured with an anchor fast. Patient presents with bilateral diminished rales breath sounds. Suctioned small amount of thick secretions without incident. There is an ambu bag available at the bed side and the vent is connected to a red outlet. Vent alarms are functional and audible. Will continue to monitor.
[2018-06-05 06:57] LABS: ALANINE AMINOTRANSFERASE 14 U/L (12-78); ALBUMIN 1.4 G/DL (3.4-5.0); ALBUMIN/GLOBULIN RATIO 0.5 (1.0-2.7); ALKALINE PHOSPHATASE 74 U/L (46-116); ANION GAP 17 mmol/L (5-15); ASPARTATE AMINO TRANSFERASE 26 U/L (15-37); BILIRUBIN,TOTAL 0.4 MG/DL (0.2-1.0); BLOOD UREA NITROGEN 105 mg/dL (7-18); CALCIUM 7.4 MG/DL (8.5-10.1); CARBON DIOXIDE 19 MMOL/L (21-32); CHLORIDE 111 MMOL/L (98-107); CREATININE 4.3 MG/DL (0.55-1.30); POTASSIUM 3.2 MMOL/L (3.5-5.1); SODIUM 147 MMOL/L (136-145)
--- NOTE | 2018-06-05 07:14 | General Progress Note ---
Assessment/Plan Problem List: (1) Perforated viscus ICD Codes: R19.8 - Other specified symptoms and signs involving the digestive system and abdomen SNOMED: 80218092, 614971014, 273691520 (2) ESRD (end stage renal disease) on dialysis ICD Codes: N18.6 - End stage renal disease; Z99.2 - Dependence on renal dialysis SNOMED: 593838631 (3) Shock ICD Codes: R57.9 - Shock, unspecified SNOMED: 51338279 (4) Diabetes mellitus out of control ICD Codes: E11.65 - Type 2 diabetes mellitus with hyperglycemia SNOMED: 00096455, 134125313 Assessment/Plan continue BG monitoring and Novolog sliding scale every 4 hours reduce Levemir to 12 units bid Subjective ROS Limited/Unobtainable: Yes Allergies: Coded Allergies: No Known Allergies (Unverified , 11/12/12) Subjective events noted Objective Last 24 Hour Vital Signs Date Time Temp Pulse Resp B/P (MAP) Pulse Ox O2 Delivery O2 Flow Rate FiO2 06/05/18 06:45 120 29 40 06/05/18 06:00 111 25 82/38 (53) 100 06/05/18 06:00 Mechanical Ventilator 40 06/05/18 06:00 82/38 06/05/18 05:42 97/50 06/05/18 05:30 112 22 105/49 (67) 100 06/05/18 05:00 22 Mechanical Ventilator 40 06/05/18 05:00 106 25 97/50 (66) 100 06/05/18 04:43 110 26 40 06/05/18 04:30 111 20 88/32 (50) 100 06/05/18 04:00 Mechanical Ventilator Mechanical Ventilator 06/05/18 04:00 110 06/05/18 04:00 99.9 107 22 114/30 (58) 100 06/05/18 04:00 22 Mechanical Ventilator 40 06/05/18 04:00 40 06/05/18 03:30 107 24 101/41 (61) 100 06/05/18 03:18 102 21 40 06/05/18 03:00 99 23 95/35 (55) 100 06/05/18 03:00 25 Mechanical Ventilator 40 06/05/18 02:30 100 21 81/22 (41) 100 06/05/18 02:00 24 Mechanical Ventilator 40 06/05/18 02:00 109 23 81/20 (40) 100 06/05/18 01:30 116 22 40 06/05/18 01:30 114 25 89/31 (50) 100 06/05/18 01:00 104 21 78/35 (49) 100 06/05/18 00:30 101 22 97/37 (57) 100 06/05/18 00:00 Mechanical Ventilator Mechanical Ventilator 06/05/18 00:00 99.3 103 24 93/35 (54) 100 06/05/18 00:00 40 06/05/18 00:00 103 06/04/18 23:30 99 25 89/29 (49) 100 06/04/18 23:17 93 21 Mechanical Ventilator 40 06/04/18 23:15 94 21 40 06/04/18 23:00 100 22 100/39 (59) 100 06/04/18 22:30 105 26 136/45 (75) 100 06/04/18 22:00 100 22 100/37 (58) 100 06/04/18 21:30 100 25 81/27 (45) 100 06/04/18 21:00 104 30 81/27 (45) 100 06/04/18 20:58 97 28 40 06/04/18 20:30 105 30 71/23 (39) 100 06/04/18 20:25 30 Mechanical Ventilator 40 06/04/18 20:25 97/35 06/04/18 20:00 105 06/04/18 20:00 40 06/04/18 20:00 Mechanical Ventilator Mechanical Ventilator 06/04/18 20:00 107 31 83/18 (39) 100 06/04/18 19:30 98.0 106 31 83/18 (39) 100 06/04/18 19:30 98 30 40 06/04/18 19:00 99 28 93/19 (43) 100 06/04/18 18:42 74/29 06/04/18 18:00 104 31 83/49 (60) 100 06/04/18 17:00 107 28 111/43 (65) 100 06/04/18 16:55 93 27 40 06/04/18 16:00 Mechanical Ventilator Mechanical Ventilator 06/04/18 16:00 40 06/04/18 16:00 98.8 111 28 107/43 (64) 100 06/04/18 15:42 94 06/04/18 15:01 96 29 50 06/04/18 15:00 92 26 118/42 (67) 100 06/04/18 14:00 100 30 104/32 (56) 100 06/04/18 13:00 98.1 92 22 97/35 (55) 100 06/04/18 12:49 99 27 50 06/04/18 12:05 90 06/04/18 12:00 Mechanical Ventilator Mechanical Ventilator 06/04/18 12:00 97 25 104/31 (55) 100 06/04/18 12:00 50 06/04/18 11:00 84 27 90/46 (61) 100 06/04/18 10:58 97 25 50 06/04/18 10:00 100 30 114/38 (63) 100 06/04/18 09:00 74 24 112/35 (60) 100 06/04/18 08:31 75 29 50 06/04/18 08:00 Mechanical Ventilator Mechanical Ventilator 06/04/18 08:00 50 06/04/18 08:00 91 25 115/44 (67) 100 06/04/18 07:42 93 Intake and Output 06/04/18 06/05/18 18:59 06:59 Intake Total 2432.170 ml 3215.787 ml Output Total 625 ml Balance 1807.170 ml 3215.787 ml IV Total 1215.170 ml 1709.787 ml Blood Product 1217 ml 1506 ml Emesis 400 ml Drainage Total 225 ml # Bowel Movements 6 6 Laboratory Tests 06/04/18 10:06: Arterial Blood pH 7.377, Arterial Blood Partial Pressure CO2 43.0, Arterial Blood Partial Pressure O2 143.9H, Arterial Blood HCO3 24.7, Arterial Blood Oxygen Saturation 98.2, Arterial Blood Base Excess -0.5, Luiz Test Positive 06/04/18 17:42: Arterial Blood pH 7.410, Arterial Blood Partial Pressure CO2 37.4, Arterial Blood Partial Pressure O2 145.0H, Arterial Blood HCO3 23.2, Arterial Blood Oxygen Saturation 98.0, Arterial Blood Base Excess -1.1, Luiz Test Positive 06/04/18 21:00: White Blood Count 10.4, Red Blood Count 1.41L, Hemoglobin 4.1#*L, Hematocrit 12.3#L, Mean Corpuscular Volume 87, Mean Corpuscular Hemoglobin 29.3, Mean Corpuscular Hemoglobin Concent 33.6, Red Cell Distribution Width 14.0, Platelet Count 58L, Mean Platelet Volume 8.2, Neutrophils (%) (Auto) , Lymphocytes (%) ( Auto) , Monocytes (%) (Auto) , Eosinophils (%) (Auto) , Basophils (%) (Auto) , Differential Total Cells Counted 100, Neutrophils % (Manual) 92H, Lymphocytes % (Manual) 4L, Monocytes % (Manual) 2, Eosinophils % (Manual) 1, Basophils % ( Manual) 0, Band Neutrophils 1, Platelet Estimate DecreasedL, Platelet Morphology Normal, Polychromasia 1+, Hypochromasia 2+, Anisocytosis 1+, Spherocytes 1+ 06/04/18 23:50: White Blood Count 12.8H, Red Blood Count 3.09L, Hemoglobin 9.2#L, Hematocrit 27.1#L, Mean Corpuscular Volume 88, Mean Corpuscular Hemoglobin 29.9, Mean Corpuscular Hemoglobin Concent 34.1, Red Cell Distribution Width 13.0, Platelet Count 47L, Mean Platelet Volume 9.5, Neutrophils (%) (Auto) , Lymphocytes (%) ( Auto) , Monocytes (%) (Auto) , Eosinophils (%) (Auto) , Basophils (%) (Auto) , Sodium Level 147H, Potassium Level 3.3L, Chloride Level 111H, Carbon Dioxide Level 21, Anion Gap 15, Blood Urea Nitrogen 100H, Creatinine 4.1H, Estimat Glomerular Filtration Rate , Glucose Level 92, Calcium Level 7.4L, Total Bilirubin 0.4, Aspartate Amino Transf (AST/SGOT) 29, Alanine Aminotransferase ( ALT/SGPT) 12, Alkaline Phosphatase 80, Total Protein 4.1L, Albumin 1.4L, Globulin 2.7, Albumin/Globulin Ratio 0.5L 06/05/18 04:30: White Blood Count 11.9H, Red Blood Count 2.20L, Hemoglobin 6.6*L, Hematocrit 19.3L, Mean Corpuscular Volume 88, Mean Corpuscular Hemoglobin 30.2, Mean Corpuscular Hemoglobin Concent 34.5, Red Cell Distribution Width 12.9, Platelet Count 84#L, Mean Platelet Volume 6.4L, Neutrophils (%) (Auto) , Lymphocytes (%) (Auto) , Monocytes (%) (Auto) , Eosinophils (%) (Auto) , Basophils (%) (Auto) , Neutrophils % (Manual) [Pending], Lymphocytes % (Manual) [Pending], Platelet Estimate [Pending], Platelet Morphology [Pending], Prothrombin Time 14.7H, Prothromb Time International Ratio 1.4H, Sodium Level 147H, Potassium Level 3.2L , Chloride Level 111H, Carbon Dioxide Level 19L, Anion Gap 17H, Blood Urea Nitrogen 105H, Creatinine 4.3H, Estimat Glomerular Filtration Rate , Glucose Level 120H, Uric Acid 4.9, Calcium Level 7.4L, Phosphorus Level [Pending], Magnesium Level 2.1, Total Bilirubin 0.4, Aspartate Amino Transf (AST/SGOT) 26, Alanine Aminotransferase (ALT/SGPT) 14, Alkaline Phosphatase 74, Pro-B-Type Natriuretic Peptide 35636Q, Total Protein 4.1L, Albumin 1.4L, Globulin 2.7, Albumin/Globulin Ratio 0.5L Height (Feet): 5 Height (Inches): 5.00 Weight (Pounds): 190 General Appearance: severe distress Neck: normal alignment Cardiovascular: tachycardia Respiratory/Chest: decreased breath sounds Abdomen: hypoactive bowel sounds Objective Current Medications Medications (Trade) Dose Ordered Sig/Min Route PRN Reason Start Time Stop Time Status Last Admin Dose Admin Acetaminophen (Tylenol) 650 mg Q4H PRN RECTAL Mild Pain/Temp > 100.5 05/21/18 12:00 06/20/18 11:59 Cefepime HCl 2 gm/ Dextrose 55 ml @ 110 mls/hr Q24H IVPB 05/25/18 13:00 06/07/18 12:59 06/04/18 12:41 Chlorhexidine Gluconate (Tatyana-Hex 2%) 1 applic DAILY@2000 TOPIC 05/12/18 20:00 06/11/18 19:59 06/04/18 20:25 Dextrose 1,000 ml @ 0 mls/hr Q24H PRN IV PN interrupted or unavailable 05/25/18 21:00 06/24/18 20:59 Dextrose (Dextrose 50%) 25 ml Q30M PRN IV Hypoglycemia 05/26/18 12:45 06/25/18 12:44 Dextrose (Dextrose 50%) 50 ml Q30M PRN IV Hypoglycemia 05/26/18 12:45 06/25/18 12:44 05/31/18 21:12 Digoxin (Lanoxin) 0.125 mg 3XW IVP 06/03/18 09:00 07/03/18 08:59 06/03/18 09:50 Epoetin Bret (Procrit (for ESRD on dialysis)) 10,000 units SUN-SUN-SUN SUBQ 06/03/18 21:00 06/30/18 20:59 06/03/18 21:34 Fat Emulsion Intravenous 250 ml/Amino Acids/ Electrolytes/ Dextrose 2,050 ml @ 85.417 mls/ hr Q24H IV 06/01/18 20:00 07/01/18 19:59 06/04/18 18:33 Fentanyl Citrate 1000 mcg/Sodium Chloride 100 ml @ 0 mls/hr Q24H IV 06/04/18 19:30 06/11/18 19:29 06/04/18 20:25 Fluconazole/ Sodium Chloride 100 ml @ 100 mls/hr Q24H IV 05/28/18 18:00 06/08/18 17:59 06/04/18 17:30 Hydrocortisone (Solu-CORTEF) 12.5 mg Q12HR IV 06/03/18 21:00 07/01/18 20:59 06/04/18 20:26 Hydromorphone HCl (Dilaudid) 0.5 mg Q4H PRN IVP Severe Pain (Pain Scale 7-10) 06/03/18 18:30 06/05/18 18:18 Insulin Aspart (NovoLOG) EVERY 4 HOURS SUBQ 05/24/18 17:00 06/15/18 20:59 06/05/18 05:00 Insulin Detemir (Levemir) 14 units Q12HR SUBQ 06/03/18 09:00 06/23/18 17:59 06/04/18 20:27 Levofloxacin 50 ml @ 50 mls/hr Q24H IVPB 05/25/18 13:00 06/07/18 12:59 06/04/18 12:41 Metronidazole 100 ml @ 100 mls/hr Q8HR IVPB 05/25/18 14:00 06/07/18 13:59 06/05/18 05:42 Nitroglycerin (Ntg) 1 patch Q24H TDERMAL 05/29/18 20:00 06/28/18 19:59 06/04/18 20:25 Norepinephrine Bitartrate 8 mg/ Dextrose 500 ml @ 0 mls/hr Q24H IV 05/21/18 14:30 06/20/18 14:29 06/05/18 05:42 Ondansetron HCl (Zofran) 4 mg Q6H PRN IVP Nausea & Vomiting 05/15/18 23:30 06/14/18 23:29 Pantoprazole (Protonix) 40 mg EVERY 12 HOURS IVP 05/12/18 21:00 06/10/18 20:59 06/04/18 20:26 Phytonadione (Vitamin K) 10 mg ONCE A WEEK SUBQ 06/11/18 11:00 07/11/18 10:59 Vasopressin 100 units/Sodium Chloride 100 ml @ 0 mls/hr Q24H IV 05/22/18 11:30 06/21/18 11:29 05/23/18 17:47 Item Value Date Time Bedside Blood Glucose 120 mg/dl 06/05/18 0500 Bedside Blood Glucose 96 mg/dl 06/05/18 0100 Bedside Blood Glucose 87 mg/dl 06/04/18 2027 Bedside Blood Glucose 126 mg/dl H 06/04/18 1659 Bedside Blood Glucose 111 mg/dl 06/04/18 1243 Bedside Blood Glucose 86 mg/dl 06/04/18 1046 Bedside Blood Glucose 109 mg/dl 06/04/18 0500 Rashad Koenig MD Jun 05, 2018 07:14
--- NOTE | 2018-06-05 07:15 | NUR ---
NURSE NOTES: Report received from MINGO Shetty. Pt is lightly sedated. Pale looking. On bilateral soft restraints. Sinus rhythm with 1 AVB on diamond cleaver. Orally intubated. ETT 7.5/24cm at lip line. AC 20, Pressure Control 25, FiO2 40%, P 10. O2 sat 100%. Shallow breathing noted. Dressing on abdominal surgical incision dry and intact. JPx2 is draining serosang liquid. Right femoral Donis for HD noted. Left subclavian TLC patent and asymptomatic. TPN is running at 85.4 cc/hr. On Levophed at 6mcg/min and Fentanyl drip at 10mcg/hr. Pt continues having rectal bleeding. Called blood back to see if 3 units of pRBC are ready. Bilateral upper extremities edema noted. Bed in lowest position. Side rails up x3. Will resume plan of care. Addendum: 06/05/18 at 1039 by LOUIE TAVAREZ RN RN NURSE NOTES: Report received from MINGO Shetty. Pt is lightly sedated. Pale looking. On bilateral soft restraints. Sinus rhythm with 1 AVB on diamond cleaver. Orally intubated. ETT 7.5/24cm at lip line. AC 20, Pressure Control 25, FiO2 40%, P 10. O2 sat 100%. Shallow breathing noted. OGT in place and clamped at this time since Golytly was given through the night. Dressing on abdominal surgical incision dry and intact. JPx2 is draining serosang liquid. Right femoral Donis for HD noted. Left subclavian TLC patent and asymptomatic. TPN is running at 85.4 cc/hr. On Levophed at 6mcg/min and Fentanyl drip at 10mcg/hr. Pt continues having rectal bleeding through rectal tube but leak as well. Called blood back to see if 3 units of pRBC are ready. Bilateral upper extremities edema noted. Bed in lowest position. Side rails up x3. Will resume plan of care.
[2018-06-05 07:17] LABS: PHOSPHORUS 6.2 MG/DL (2.5-4.9)
--- NOTE | 2018-06-05 07:50 | NUR ---
NURSE NOTES: 1st unit of pRBC started. Cosigned with Jenna Hampton RN. Pre transfusion temp 98.4, HR 160, BP 116/61. Will continue to monitor. Addendum: 06/05/18 at 0802 by LOUIE TAVAREZ RN RN NURSE NOTES: 1st unit of pRBC started. Cosigned with Jenna Hampton RN. Pre transfusion temp 98.4, HR 106, BP 116/61. Will continue to monitor.
--- NOTE | 2018-06-05 08:43 | Pulmonolgy Critical Care Note ---
Critical Care - Asmt/Plan Problems: (1) Shock Assessment & Plan: HEMORRHAGIC (2) Hypoxemia (3) Elevated d-dimer Assessment & Plan: S/P neg CT-A + UE DVT (4) Hypotension (5) Atrial fibrillation (6) ESRD (end stage renal disease) on dialysis (7) ACS (acute coronary syndrome) (8) Sacral decubitus ulcer, stage III (9) S/P cholecystectomy (10) Serratia sepsis (11) S/P exploratory laparotomy (12) Perforated viscus (13) Thrombocythemia (14) BRBPR (bright red blood per rectum) Assessment/Plan: -Continue AC 20 PC delta P 25 -Tirate down FiO2 and PEEP to keep SaO2 > 90% -CXR -Titrate NE to keep MAP > 60 -Continue HC 12.5 BID and taper -HD per renal as able -[facility] held -Monitor CBC, transfuse as needed --> getting 3u PRBC, Vit K -Monitor for continued bleeding -GI eval noted, IR-ANGIO not available @ [facility], too unstable for transfer -Flucon, Flagyl, levaquin, Cefepime per ID, F/U Cx's, monitor WCt -NPO , TPN -F/U surgery recs -FC, ethics eval D/W RN and RT CCT 45 Critical Care - Objective Last 24 Hour Vital Signs Date Time Temp Pulse Resp B/P (MAP) Pulse Ox O2 Delivery O2 Flow Rate FiO2 06/05/18 08:00 Mechanical Ventilator Mechanical Ventilator 06/05/18 08:00 98.8 98 20 83/42 (56) 100 06/05/18 08:00 40 06/05/18 07:45 102 20 79/27 (44) 100 06/05/18 07:30 108 25 92/67 (75) 100 06/05/18 07:15 114 27 73/45 (54) 100 06/05/18 07:00 111 25 82/38 (53) 100 06/05/18 07:00 20 Mechanical Ventilator 40 06/05/18 06:45 120 29 40 06/05/18 06:00 111 25 82/38 (53) 100 06/05/18 06:00 Mechanical Ventilator 40 06/05/18 06:00 82/38 06/05/18 05:42 97/50 06/05/18 05:30 112 22 105/49 (67) 100 06/05/18 05:00 22 Mechanical Ventilator 40 06/05/18 05:00 106 25 97/50 (66) 100 06/05/18 04:43 110 26 40 06/05/18 04:30 111 20 88/32 (50) 100 06/05/18 04:00 Mechanical Ventilator Mechanical Ventilator 06/05/18 04:00 110 06/05/18 04:00 99.9 107 22 114/30 (58) 100 06/05/18 04:00 22 Mechanical Ventilator 40 06/05/18 04:00 40 06/05/18 03:30 107 24 101/41 (61) 100 06/05/18 03:18 102 21 40 06/05/18 03:00 99 23 95/35 (55) 100 06/05/18 03:00 25 Mechanical Ventilator 40 06/05/18 02:30 100 21 81/22 (41) 100 06/05/18 02:00 24 Mechanical Ventilator 40 06/05/18 02:00 109 23 81/20 (40) 100 06/05/18 01:30 116 22 40 06/05/18 01:30 114 25 89/31 (50) 100 06/05/18 01:00 104 21 78/35 (49) 100 06/05/18 00:30 101 22 97/37 (57) 100 06/05/18 00:00 Mechanical Ventilator Mechanical Ventilator 06/05/18 00:00 99.3 103 24 93/35 (54) 100 06/05/18 00:00 40 06/05/18 00:00 103 06/04/18 23:30 99 25 89/29 (49) 100 06/04/18 23:17 93 21 Mechanical Ventilator 40 06/04/18 23:15 94 21 40 06/04/18 23:00 100 22 100/39 (59) 100 06/04/18 22:30 105 26 136/45 (75) 100 06/04/18 22:00 100 22 100/37 (58) 100 06/04/18 21:30 100 25 81/27 (45) 100 06/04/18 21:00 104 30 81/27 (45) 100 06/04/18 20:58 97 28 40 06/04/18 20:30 105 30 71/23 (39) 100 06/04/18 20:25 30 Mechanical Ventilator 40 06/04/18 20:25 97/35 06/04/18 20:00 105 06/04/18 20:00 40 06/04/18 20:00 Mechanical Ventilator Mechanical Ventilator 06/04/18 20:00 107 31 83/18 (39) 100 06/04/18 19:30 98.0 106 31 83/18 (39) 100 06/04/18 19:30 98 30 40 06/04/18 19:00 99 28 93/19 (43) 100 06/04/18 18:42 74/29 06/04/18 18:00 104 31 83/49 (60) 100 06/04/18 17:00 107 28 111/43 (65) 100 06/04/18 16:55 93 27 40 06/04/18 16:00 Mechanical Ventilator Mechanical Ventilator 06/04/18 16:00 40 06/04/18 16:00 98.8 111 28 107/43 (64) 100 06/04/18 15:42 94 06/04/18 15:01 96 29 50 06/04/18 15:00 92 26 118/42 (67) 100 06/04/18 14:00 100 30 104/32 (56) 100 06/04/18 13:00 98.1 92 22 97/35 (55) 100 06/04/18 12:49 99 27 50 06/04/18 12:05 90 06/04/18 12:00 Mechanical Ventilator Mechanical Ventilator 06/04/18 12:00 97 25 104/31 (55) 100 06/04/18 12:00 50 06/04/18 11:00 84 27 90/46 (61) 100 06/04/18 10:58 97 25 50 06/04/18 10:00 100 30 114/38 (63) 100 06/04/18 09:00 74 24 112/35 (60) 100 Status: sedated Condition: critical HEENT: atraumatic, normocephalic Lungs: rhonchi Heart: HR/BP unstable Abdomen: soft, non-tender, active bowel sounds, other - wound dressed, VELVET Extremities: other - 1-2+ EMERITA Decubiti: location - sacrum, stage - DTI Accucheck: 120 Blood Sugars: BS controlled Critical Care - Subjective ROS Limited/Unobtainable: Yes ICU Day: 22 Intubation Day: 8 Interval Events: Continued BRBPR, some oral bleeding with suctioning only, minimal blood tinged ETT secretions HH continues to drop S/P plt x 3 ffp x 2 prbc x 4 Sedated on Fent gtt NE 8 mcg Condition: critical IV Access: central EKG Rhythm: Sinus Rhythm FI02: 40 Vent Support Breath Rate: 20 Vent Support Mode: AC Vent Tidal Volume: 500 Sputum Amount: Small PEEP: 10.0 PIP: 36 Secretions: small blood tined Fluids: SLIV Drips: NE 8, Fent Tube Feeding Amount: 0 I&O: Intake and Output 06/04/18 06/05/18 18:59 06:59 Intake Total 2432.170 ml 3215.787 ml Output Total 625 ml Balance 1807.170 ml 3215.787 ml IV Total 1215.170 ml 1709.787 ml Blood Product 1217 ml 1506 ml Emesis 400 ml Drainage Total 225 ml # Bowel Movements 6 6 Subjective: CROW ET-Tube: 7.5 ET Position: 24 Labs: Laboratory Tests Test 06/04/18 10:06 06/04/18 17:42 06/04/18 21:00 06/04/18 23:50 Arterial Blood pH 7.377 (7.350-7.450) 7.410 (7.350-7.450) Arterial Blood Partial Pressure CO2 43.0 mmHg (35.0-45.0) 37.4 mmHg (35.0-45.0) Arterial Blood Partial Pressure O2 143.9 mmHg (75.0-100.0) H 145.0 mmHg (75.0-100.0) H Arterial Blood HCO3 24.7 mmol/L (22.0-26.0) 23.2 mmol/L (22.0-26.0) Arterial Blood Oxygen Saturation 98.2 % (95-100) 98.0 % (95-100) Arterial Blood Base Excess -0.5 (-2-2) -1.1 (-2-2) Luiz Test Positive Positive White Blood Count 10.4 K/UL (4.8-10.8) 12.8 K/UL (4.8-10.8) H Red Blood Count 1.41 M/UL (4.70-6.10) L 3.09 M/UL (4.70-6.10) L Hemoglobin 4.1 G/DL (14.2-18.0) 9.2 G/DL (14.2-18.0) #L Hematocrit 12.3 % (42.0-52.0) #L 27.1 % (42.0-52.0) #L Mean Corpuscular Volume 87 FL (80-99) 88 FL (80-99) Mean Corpuscular Hemoglobin 29.3 PG (27.0-31.0) 29.9 PG (27.0-31.0) Mean Corpuscular Hemoglobin Concent 33.6 G/DL (32.0-36.0) 34.1 G/DL (32.0-36.0) Red Cell Distribution Width 14.0 % (11.6-14.8) 13.0 % (11.6-14.8) Platelet Count 58 K/UL (150-450) L 47 K/UL (150-450) L Mean Platelet Volume 8.2 FL (6.5-10.1) 9.5 FL (6.5-10.1) Neutrophils (%) (Auto) % (45.0-75.0) % (45.0-75.0) Lymphocytes (%) (Auto) % (20.0-45.0) % (20.0-45.0) Monocytes (%) (Auto) % (1.0-10.0) % (1.0-10.0) Eosinophils (%) (Auto) % (0.0-3.0) % (0.0-3.0) Basophils (%) (Auto) % (0.0-2.0) % (0.0-2.0) Differential Total Cells Counted 100 Neutrophils % (Manual) 92 % (45-75) H Lymphocytes % (Manual) 4 % (20-45) L Monocytes % (Manual) 2 % (1-10) Eosinophils % (Manual) 1 % (0-3) Basophils % (Manual) 0 % (0-2) Band Neutrophils 1 % (0-8) Platelet Estimate Decreased L Platelet Morphology Normal Polychromasia 1+ Hypochromasia 2+ Anisocytosis 1+ Spherocytes 1+ Sodium Level 147 MMOL/L (136-145) H Potassium Level 3.3 MMOL/L (3.5-5.1) L Chloride Level 111 MMOL/L (98-107) H Carbon Dioxide Level 21 MMOL/L (21-32) Anion Gap 15 mmol/L (5-15) Blood Urea Nitrogen 100 mg/dL (7-18) H Creatinine 4.1 MG/DL (0.55-1.30) H Estimat Glomerular Filtration Rate mL/min (>60) Glucose Level 92 MG/DL (74-106) Calcium Level 7.4 MG/DL (8.5-10.1) L Total Bilirubin 0.4 MG/DL (0.2-1.0) Aspartate Amino Transf (AST/SGOT) 29 U/L (15-37) Alanine Aminotransferase (ALT/SGPT) 12 U/L (12-78) Alkaline Phosphatase 80 U/L (46-116) Total Protein 4.1 G/DL (6.4-8.2) L Albumin 1.4 G/DL (3.4-5.0) L Globulin 2.7 g/dL Albumin/Globulin Ratio 0.5 (1.0-2.7) L Test 06/05/18 04:30 White Blood Count 11.9 K/UL (4.8-10.8) H Red Blood Count 2.20 M/UL (4.70-6.10) L Hemoglobin 6.6 G/DL (14.2-18.0) *L Hematocrit 19.3 % (42.0-52.0) L Mean Corpuscular Volume 88 FL (80-99) Mean Corpuscular Hemoglobin 30.2 PG (27.0-31.0) Mean Corpuscular Hemoglobin Concent 34.5 G/DL (32.0-36.0) Red Cell Distribution Width 12.9 % (11.6-14.8) Platelet Count 84 K/UL (150-450) #L Mean Platelet Volume 6.4 FL (6.5-10.1) L Neutrophils (%) (Auto) % (45.0-75.0) Lymphocytes (%) (Auto) % (20.0-45.0) Monocytes (%) (Auto) % (1.0-10.0) Eosinophils (%) (Auto) % (0.0-3.0) Basophils (%) (Auto) % (0.0-2.0) Differential Total Cells Counted 100 Neutrophils % (Manual) 95 % (45-75) H Lymphocytes % (Manual) 2 % (20-45) L Monocytes % (Manual) 0 % (1-10) L Eosinophils % (Manual) 0 % (0-3) Basophils % (Manual) 0 % (0-2) Band Neutrophils 3 % (0-8) Nucleated Red Blood Cells 1 /100 WBC Platelet Estimate Decreased L Platelet Morphology Normal Hypochromasia 1+ Prothrombin Time 14.7 SEC (9.30-11.50) H Prothromb Time International Ratio 1.4 (0.9-1.1) H Sodium Level 147 MMOL/L (136-145) H Potassium Level 3.2 MMOL/L (3.5-5.1) L Chloride Level 111 MMOL/L (98-107) H Carbon Dioxide Level 19 MMOL/L (21-32) L Anion Gap 17 mmol/L (5-15) H Blood Urea Nitrogen 105 mg/dL (7-18) H Creatinine 4.3 MG/DL (0.55-1.30) H Estimat Glomerular Filtration Rate mL/min (>60) Glucose Level 120 MG/DL (74-106) H Uric Acid 4.9 MG/DL (2.6-7.2) Calcium Level 7.4 MG/DL (8.5-10.1) L Phosphorus Level 6.2 MG/DL (2.5-4.9) H Magnesium Level 2.1 MG/DL (1.8-2.4) Total Bilirubin 0.4 MG/DL (0.2-1.0) Aspartate Amino Transf (AST/SGOT) 26 U/L (15-37) Alanine Aminotransferase (ALT/SGPT) 14 U/L (12-78) Alkaline Phosphatase 74 U/L (46-116) Pro-B-Type Natriuretic Peptide 28436 pg/mL (0-125) H Total Protein 4.1 G/DL (6.4-8.2) L Albumin 1.4 G/DL (3.4-5.0) L Globulin 2.7 g/dL Albumin/Globulin Ratio 0.5 (1.0-2.7) L Daryl Jones MD Jun 05, 2018 08:43
--- NOTE | 2018-06-05 08:50 | General Progress Note ---
Assessment/Plan Assessment/Plan (1) Abdominal pain (2) S/p Lap Cholecystectomy (3) Encephalopathy /septic shock (4) ESRD on hemodialysis (5) S/p emergent exploratory laboratory small bowel resection omentectomy due to small bowel perforation in distal ileum (6) Sacral decubitus ulcer Patient to be continued on Dilaudid and Tylenol. Parameters to be continued. D/w Dr. Busby and he concurred. Subjective Date patient seen: Jun 05, 2018 Time patient seen: 07:30 - am ROS Limited/Unobtainable: Yes Allergies: Coded Allergies: No Known Allergies (Unverified , 11/12/12) Subjective Patient is in bed intubated on vent. Started on Fentanyl drip as per technology risk intern. No Dilaudid given in the last 24hrs. Objective Last 24 Hour Vital Signs Date Time Temp Pulse Resp B/P (MAP) Pulse Ox O2 Delivery O2 Flow Rate FiO2 06/05/18 08:00 Mechanical Ventilator Mechanical Ventilator 06/05/18 08:00 98.8 98 20 83/42 (56) 100 06/05/18 08:00 40 06/05/18 07:45 102 20 79/27 (44) 100 06/05/18 07:30 108 25 92/67 (75) 100 06/05/18 07:15 114 27 73/45 (54) 100 06/05/18 07:00 111 25 82/38 (53) 100 06/05/18 07:00 20 Mechanical Ventilator 40 06/05/18 06:45 120 29 40 06/05/18 06:00 111 25 82/38 (53) 100 06/05/18 06:00 Mechanical Ventilator 40 06/05/18 06:00 82/38 06/05/18 05:42 97/50 06/05/18 05:30 112 22 105/49 (67) 100 06/05/18 05:00 22 Mechanical Ventilator 40 06/05/18 05:00 106 25 97/50 (66) 100 06/05/18 04:43 110 26 40 06/05/18 04:30 111 20 88/32 (50) 100 06/05/18 04:00 Mechanical Ventilator Mechanical Ventilator 06/05/18 04:00 110 06/05/18 04:00 99.9 107 22 114/30 (58) 100 06/05/18 04:00 22 Mechanical Ventilator 40 06/05/18 04:00 40 06/05/18 03:30 107 24 101/41 (61) 100 06/05/18 03:18 102 21 40 06/05/18 03:00 99 23 95/35 (55) 100 06/05/18 03:00 25 Mechanical Ventilator 40 06/05/18 02:30 100 21 81/22 (41) 100 06/05/18 02:00 24 Mechanical Ventilator 40 06/05/18 02:00 109 23 81/20 (40) 100 06/05/18 01:30 116 22 40 06/05/18 01:30 114 25 89/31 (50) 100 06/05/18 01:00 104 21 78/35 (49) 100 06/05/18 00:30 101 22 97/37 (57) 100 06/05/18 00:00 Mechanical Ventilator Mechanical Ventilator 06/05/18 00:00 99.3 103 24 93/35 (54) 100 06/05/18 00:00 40 06/05/18 00:00 103 06/04/18 23:30 99 25 89/29 (49) 100 06/04/18 23:17 93 21 Mechanical Ventilator 40 06/04/18 23:15 94 21 40 06/04/18 23:00 100 22 100/39 (59) 100 06/04/18 22:30 105 26 136/45 (75) 100 06/04/18 22:00 100 22 100/37 (58) 100 06/04/18 21:30 100 25 81/27 (45) 100 06/04/18 21:00 104 30 81/27 (45) 100 06/04/18 20:58 97 28 40 06/04/18 20:30 105 30 71/23 (39) 100 06/04/18 20:25 30 Mechanical Ventilator 40 06/04/18 20:25 97/35 06/04/18 20:00 105 06/04/18 20:00 40 06/04/18 20:00 Mechanical Ventilator Mechanical Ventilator 06/04/18 20:00 107 31 83/18 (39) 100 06/04/18 19:30 98.0 106 31 83/18 (39) 100 06/04/18 19:30 98 30 40 06/04/18 19:00 99 28 93/19 (43) 100 06/04/18 18:42 74/29 06/04/18 18:00 104 31 83/49 (60) 100 06/04/18 17:00 107 28 111/43 (65) 100 06/04/18 16:55 93 27 40 06/04/18 16:00 Mechanical Ventilator Mechanical Ventilator 06/04/18 16:00 40 06/04/18 16:00 98.8 111 28 107/43 (64) 100 06/04/18 15:42 94 06/04/18 15:01 96 29 50 06/04/18 15:00 92 26 118/42 (67) 100 06/04/18 14:00 100 30 104/32 (56) 100 06/04/18 13:00 98.1 92 22 97/35 (55) 100 06/04/18 12:49 99 27 50 06/04/18 12:05 90 06/04/18 12:00 Mechanical Ventilator Mechanical Ventilator 06/04/18 12:00 97 25 104/31 (55) 100 06/04/18 12:00 50 06/04/18 11:00 84 27 90/46 (61) 100 06/04/18 10:58 97 25 50 06/04/18 10:00 100 30 114/38 (63) 100 06/04/18 09:00 74 24 112/35 (60) 100 Intake and Output 06/04/18 06/05/18 18:59 06:59 Intake Total 2432.170 ml 3215.787 ml Output Total 625 ml Balance 1807.170 ml 3215.787 ml IV Total 1215.170 ml 1709.787 ml Blood Product 1217 ml 1506 ml Emesis 400 ml Drainage Total 225 ml # Bowel Movements 6 6 Laboratory Tests 06/04/18 10:06: Arterial Blood pH 7.377, Arterial Blood Partial Pressure CO2 43.0, Arterial Blood Partial Pressure O2 143.9H, Arterial Blood HCO3 24.7, Arterial Blood Oxygen Saturation 98.2, Arterial Blood Base Excess -0.5, Luiz Test Positive 06/04/18 17:42: Arterial Blood pH 7.410, Arterial Blood Partial Pressure CO2 37.4, Arterial Blood Partial Pressure O2 145.0H, Arterial Blood HCO3 23.2, Arterial Blood Oxygen Saturation 98.0, Arterial Blood Base Excess -1.1, Luiz Test Positive 06/04/18 21:00: White Blood Count 10.4, Red Blood Count 1.41L, Hemoglobin 4.1#*L, Hematocrit 12.3#L, Mean Corpuscular Volume 87, Mean Corpuscular Hemoglobin 29.3, Mean Corpuscular Hemoglobin Concent 33.6, Red Cell Distribution Width 14.0, Platelet Count 58L, Mean Platelet Volume 8.2, Neutrophils (%) (Auto) , Lymphocytes (%) ( Auto) , Monocytes (%) (Auto) , Eosinophils (%) (Auto) , Basophils (%) (Auto) , Differential Total Cells Counted 100, Neutrophils % (Manual) 92H, Lymphocytes % (Manual) 4L, Monocytes % (Manual) 2, Eosinophils % (Manual) 1, Basophils % ( Manual) 0, Band Neutrophils 1, Platelet Estimate DecreasedL, Platelet Morphology Normal, Polychromasia 1+, Hypochromasia 2+, Anisocytosis 1+, Spherocytes 1+ 06/04/18 23:50: White Blood Count 12.8H, Red Blood Count 3.09L, Hemoglobin 9.2#L, Hematocrit 27.1#L, Mean Corpuscular Volume 88, Mean Corpuscular Hemoglobin 29.9, Mean Corpuscular Hemoglobin Concent 34.1, Red Cell Distribution Width 13.0, Platelet Count 47L, Mean Platelet Volume 9.5, Neutrophils (%) (Auto) , Lymphocytes (%) ( Auto) , Monocytes (%) (Auto) , Eosinophils (%) (Auto) , Basophils (%) (Auto) , Sodium Level 147H, Potassium Level 3.3L, Chloride Level 111H, Carbon Dioxide Level 21, Anion Gap 15, Blood Urea Nitrogen 100H, Creatinine 4.1H, Estimat Glomerular Filtration Rate , Glucose Level 92, Calcium Level 7.4L, Total Bilirubin 0.4, Aspartate Amino Transf (AST/SGOT) 29, Alanine Aminotransferase ( ALT/SGPT) 12, Alkaline Phosphatase 80, Total Protein 4.1L, Albumin 1.4L, Globulin 2.7, Albumin/Globulin Ratio 0.5L 06/05/18 04:30: White Blood Count 11.9H, Red Blood Count 2.20L, Hemoglobin 6.6*L, Hematocrit 19.3L, Mean Corpuscular Volume 88, Mean Corpuscular Hemoglobin 30.2, Mean Corpuscular Hemoglobin Concent 34.5, Red Cell Distribution Width 12.9, Platelet Count 84#L, Mean Platelet Volume 6.4L, Neutrophils (%) (Auto) , Lymphocytes (%) (Auto) , Monocytes (%) (Auto) , Eosinophils (%) (Auto) , Basophils (%) (Auto) , Differential Total Cells Counted 100, Neutrophils % (Manual) 95H, Lymphocytes % (Manual) 2L, Monocytes % (Manual) 0L, Eosinophils % (Manual) 0, Basophils % ( Manual) 0, Band Neutrophils 3, Nucleated Red Blood Cells 1, Platelet Estimate DecreasedL, Platelet Morphology Normal, Hypochromasia 1+, Prothrombin Time 14.7H , Prothromb Time International Ratio 1.4H, Sodium Level 147H, Potassium Level 3.2L, Chloride Level 111H, Carbon Dioxide Level 19L, Anion Gap 17H, Blood Urea Nitrogen 105H, Creatinine 4.3H, Estimat Glomerular Filtration Rate , Glucose Level 120H, Uric Acid 4.9, Calcium Level 7.4L, Phosphorus Level 6.2H, Magnesium Level 2.1, Total Bilirubin 0.4, Aspartate Amino Transf (AST/SGOT) 26, Alanine Aminotransferase (ALT/SGPT) 14, Alkaline Phosphatase 74, Pro-B-Type Natriuretic Peptide 29796K, Total Protein 4.1L, Albumin 1.4L, Globulin 2.7, Albumin/ Globulin Ratio 0.5L Height (Feet): 5 Height (Inches): 5.00 Weight (Pounds): 190 Objective GENERAL: Intubated. LUNGS: Decreased breath sounds bilaterally. HEART: S1 S2 Regular. ABDOMEN: Bandages applied. EXTREMITIES: No cyanosis. No clubbing. Sacral decubitus ulcer. Sid Holland Jun 05, 2018 08:49
--- NOTE | 2018-06-05 09:10 | NUR ---
NURSE NOTES: 0845 1st unit of pRBC done. Post transfusion temp 98.3, HR 130, BP 103/91. No transverse reaction noted. 0910 2nd unit of pRBC started. Cosigned with Berta West RN. Pre transfusion temp 98.3, HR 107,BP 180/55. Will continue to monitor. Dr Jones here to see the patient. Updated him with pt's current condition. He ordered to keep the current vent setting. Notified RT. Pt is lightly sedated on Fentanyl drip at 20mcg/hr. BP 105/69 on Levophed at 8mcg/min. Pt is receiving the 2nd unit of pRBC. Addendum: 06/05/18 at 1015 by LOUIE TAVAREZ RN RN NURSE NOTES: 0845 1st unit of pRBC done. Post transfusion temp 98.3, HR 130, BP 103/91. No transverse reaction noted. 909 2nd unit of pRBC started. Cosigned with Berta West RN. Pre transfusion temp 98.3, HR 107,BP 108/55. Will continue to monitor. Dr Jones here to see the patient. Updated him with pt's current condition. He ordered to keep the current vent setting. Notified RT. Pt is lightly sedated on Fentanyl drip at 20mcg/hr. BP 105/69 on Levophed at 8mcg/min. Pt is receiving the 2nd unit of pRBC.
[2018-06-05] MEDS: Hydrocortisone 100mg Inj IV SCH ×2 (09:11→20:39)
[2018-06-05] MEDS: Digoxin 0.5mg/2ml Inj IVP SCH (09:12)
[2018-06-05] MEDS: Pantoprazole Inj IVP SCH ×2 (09:12→20:39)
[2018-06-05] MEDS ORDERED: Phytonadione 10 MG in D5W 55 ML IVPB ONE (09:30)
[2018-06-05] MEDS: Levemir Flexpen SUBQ SCH ×2 (09:34→21:01)
--- NOTE | 2018-06-05 09:50 | General Progress Note ---
Progress Note Progress Note continues to have rectal bleeding which is more pronounced now anemia transfusing multiple blood products now on pressors again possible etiology diverticula, anastomosis, av? needs urgent upper and lower endoscopy in OR if perf or cannot stop bleeding will need exploration Tomas Chandler Jun 05, 2018 09:50
--- NOTE | 2018-06-05 10:10 | NUR ---
NURSE NOTES: Dr Chandler here to see the patient. GI will perform upper and lower GI scope and Dr Chandler will do surgery afterwards at 1PM today as per Dr William. Will get ready for procedures. GI checklist and pre-op checklist done. Notified RT.
--- NOTE | 2018-06-05 10:30 | NUR ---
NURSE NOTES: 1015 The 2nd unit of pRBC done. Post transfusion temp 98.0, HR 105, BP 109/31. No adverse transfusion reaction noted. 1030 The 3rd unit of pRBC started. Pre transfusion temp 98.0, HR 105, BP 86/46. Will continue to monitor.
[2018-06-05] MEDS: Vasopressin 100 UNITS in NS 95 ML IV SCH (11:00)
--- NOTE | 2018-06-05 11:35 | NUR ---
NURSE NOTES: The 3rd unit of pRBC tranfusion finished. Post transfusion temp 98.1, HR 113, BP 128/37. No adverse transfusion reaction noted. Will continue to monitor.
--- NOTE | 2018-06-05 11:41 | Cardiac Electrophysiology PN ---
Assessment/Plan Assessment/Plan 1. Atrial fib/flutter with RVR In SR. Off Amio drip for bradycardia. In SR Can't switch to po as NPO On dig 0.125 mg iv MWF. 2. Troponin leak due to renal failure and nonspecific EKG showed old inferior and anterior wall ND, but no ischemia. ECHO normal LV function 3. End-stage renal disease, on hemodialysis per Dr. Arroyo. 4. Septic shock, on Levophed again 2D Echo EF 60% and PA pressure 63 Off heparin drip for surgery and GI bleed 5. Hx of lap matthew. S/P SB resection 05/15/18 with drain S/P redo surgery 05/23/18 for anastomotic leak. S/P surgery again by Dr. Chandler 05/27/18 NPO for surgery again today On TPN and Abx 6. Respiratory failure, reintubated on the vent. 7. GI Bleed. Getting PRBC. Getting EGD,Colonoscopy and redo surgery today 8. History of psychiatric problems, dementia. SAW RN Subjective Subjective In ICU on the vent. Off Amiodarone drip due to bradycardia.Continues with GI bleed and has rectal tube. On Levophed now and getting transfusion. Going for EGD,Colonoscopy and re do surgery again at 1 pm Objective Last 24 Hour Vital Signs Date Time Temp Pulse Resp B/P (MAP) Pulse Ox O2 Delivery O2 Flow Rate FiO2 06/05/18 11:00 98 20 109/22 (51) 100 06/05/18 11:00 20 Mechanical Ventilator 40 06/05/18 11:00 20 Mechanical Ventilator 40 06/05/18 11:00 20 Mechanical Ventilator 40 06/05/18 11:00 20 Mechanical Ventilator 40 06/05/18 11:00 118/25 06/05/18 11:00 118/25 06/05/18 11:00 118/25 06/05/18 11:00 118/25 06/05/18 10:58 101 22 40 06/05/18 10:30 98 21 95/49 (64) 100 06/05/18 10:00 102 21 109/31 (57) 100 06/05/18 10:00 22 Mechanical Ventilator 40 06/05/18 10:00 95/49 06/05/18 09:30 104 21 102/46 (64) 100 06/05/18 09:12 96 06/05/18 09:03 20 Mechanical Ventilator 40 06/05/18 09:00 20 Mechanical Ventilator 40 06/05/18 09:00 108/55 06/05/18 09:00 94 21 108/55 (72) 100 06/05/18 08:32 87 20 40 06/05/18 08:30 92 20 79/27 (44) 100 06/05/18 08:00 Mechanical Ventilator Mechanical Ventilator 06/05/18 08:00 98.8 98 20 83/42 (56) 100 06/05/18 08:00 98 06/05/18 08:00 20 Mechanical Ventilator 40 06/05/18 08:00 83/42 06/05/18 08:00 40 06/05/18 07:45 102 20 79/27 (44) 100 06/05/18 07:30 108 25 92/67 (75) 100 06/05/18 07:15 114 27 73/45 (54) 100 06/05/18 07:00 111 25 82/38 (53) 100 06/05/18 07:00 20 Mechanical Ventilator 40 06/05/18 07:00 73/45 06/05/18 06:45 120 29 40 06/05/18 06:00 111 25 82/38 (53) 100 06/05/18 06:00 Mechanical Ventilator 40 06/05/18 06:00 82/38 06/05/18 05:42 97/50 06/05/18 05:30 112 22 105/49 (67) 100 06/05/18 05:00 22 Mechanical Ventilator 40 06/05/18 05:00 106 25 97/50 (66) 100 06/05/18 04:43 110 26 40 06/05/18 04:30 111 20 88/32 (50) 100 06/05/18 04:00 Mechanical Ventilator Mechanical Ventilator 06/05/18 04:00 110 06/05/18 04:00 99.9 107 22 114/30 (58) 100 06/05/18 04:00 22 Mechanical Ventilator 40 06/05/18 04:00 40 06/05/18 03:30 107 24 101/41 (61) 100 06/05/18 03:18 102 21 40 06/05/18 03:00 99 23 95/35 (55) 100 06/05/18 03:00 25 Mechanical Ventilator 40 06/05/18 02:30 100 21 81/22 (41) 100 06/05/18 02:00 24 Mechanical Ventilator 40 06/05/18 02:00 109 23 81/20 (40) 100 06/05/18 01:30 116 22 40 06/05/18 01:30 114 25 89/31 (50) 100 06/05/18 01:00 104 21 78/35 (49) 100 06/05/18 00:30 101 22 97/37 (57) 100 06/05/18 00:00 Mechanical Ventilator Mechanical Ventilator 06/05/18 00:00 99.3 103 24 93/35 (54) 100 06/05/18 00:00 40 06/05/18 00:00 103 06/04/18 23:30 99 25 89/29 (49) 100 06/04/18 23:17 93 21 Mechanical Ventilator 40 06/04/18 23:15 94 21 40 06/04/18 23:00 100 22 100/39 (59) 100 06/04/18 22:30 105 26 136/45 (75) 100 06/04/18 22:00 100 22 100/37 (58) 100 06/04/18 21:30 100 25 81/27 (45) 100 06/04/18 21:00 104 30 81/27 (45) 100 06/04/18 20:58 97 28 40 06/04/18 20:30 105 30 71/23 (39) 100 06/04/18 20:25 30 Mechanical Ventilator 40 06/04/18 20:25 97/35 06/04/18 20:00 105 06/04/18 20:00 40 06/04/18 20:00 Mechanical Ventilator Mechanical Ventilator 06/04/18 20:00 107 31 83/18 (39) 100 06/04/18 19:30 98.0 106 31 83/18 (39) 100 06/04/18 19:30 98 30 40 06/04/18 19:00 99 28 93/19 (43) 100 06/04/18 18:42 74/29 06/04/18 18:00 104 31 83/49 (60) 100 06/04/18 17:00 107 28 111/43 (65) 100 06/04/18 16:55 93 27 40 06/04/18 16:00 Mechanical Ventilator Mechanical Ventilator 06/04/18 16:00 40 06/04/18 16:00 98.8 111 28 107/43 (64) 100 06/04/18 15:42 94 06/04/18 15:01 96 29 50 06/04/18 15:00 92 26 118/42 (67) 100 06/04/18 14:00 100 30 104/32 (56) 100 06/04/18 13:00 98.1 92 22 97/35 (55) 100 06/04/18 12:49 99 27 50 06/04/18 12:05 90 06/04/18 12:00 Mechanical Ventilator Mechanical Ventilator 06/04/18 12:00 97 25 104/31 (55) 100 06/04/18 12:00 50 Intake and Output 06/04/18 06/05/18 19:00 07:00 Intake Total 2389.453 ml 3282.004 ml Output Total 495 ml 175 ml Balance 1894.453 ml 3107.004 ml IV Total 1172.453 ml 1776.004 ml Blood Product 1217 ml 1506 ml Emesis 400 ml Drainage Total 95 ml 175 ml # Bowel Movements 7 5 Laboratory Tests Test 06/04/18 17:42 06/04/18 21:00 06/04/18 23:50 06/05/18 04:30 Arterial Blood pH 7.410 (7.350-7.450) Arterial Blood Partial Pressure CO2 37.4 mmHg (35.0-45.0) Arterial Blood Partial Pressure O2 145.0 mmHg (75.0-100.0) H Arterial Blood HCO3 23.2 mmol/L (22.0-26.0) Arterial Blood Oxygen Saturation 98.0 % (95-100) Arterial Blood Base Excess -1.1 (-2-2) Luiz Test Positive White Blood Count 10.4 K/UL (4.8-10.8) 12.8 K/UL (4.8-10.8) H 11.9 K/UL (4.8-10.8) H Red Blood Count 1.41 M/UL (4.70-6.10) L 3.09 M/UL (4.70-6.10) L 2.20 M/UL (4.70-6.10) L Hemoglobin 4.1 G/DL (14.2-18.0) 9.2 G/DL (14.2-18.0) #L 6.6 G/DL (14.2-18.0) *L Hematocrit 12.3 % (42.0-52.0) #L 27.1 % (42.0-52.0) #L 19.3 % (42.0-52.0) L Mean Corpuscular Volume 87 FL (80-99) 88 FL (80-99) 88 FL (80-99) Mean Corpuscular Hemoglobin 29.3 PG (27.0-31.0) 29.9 PG (27.0-31.0) 30.2 PG (27.0-31.0) Mean Corpuscular Hemoglobin Concent 33.6 G/DL (32.0-36.0) 34.1 G/DL (32.0-36.0) 34.5 G/DL (32.0-36.0) Red Cell Distribution Width 14.0 % (11.6-14.8) 13.0 % (11.6-14.8) 12.9 % (11.6-14.8) Platelet Count 58 K/UL (150-450) L 47 K/UL (150-450) L 84 K/UL (150-450) #L Mean Platelet Volume 8.2 FL (6.5-10.1) 9.5 FL (6.5-10.1) 6.4 FL (6.5-10.1) L Neutrophils (%) (Auto) % (45.0-75.0) % (45.0-75.0) % (45.0-75.0) Lymphocytes (%) (Auto) % (20.0-45.0) % (20.0-45.0) % (20.0-45.0) Monocytes (%) (Auto) % (1.0-10.0) % (1.0-10.0) % (1.0-10.0) Eosinophils (%) (Auto) % (0.0-3.0) % (0.0-3.0) % (0.0-3.0) Basophils (%) (Auto) % (0.0-2.0) % (0.0-2.0) % (0.0-2.0) Differential Total Cells Counted 100 100 Neutrophils % (Manual) 92 % (45-75) H 95 % (45-75) H Lymphocytes % (Manual) 4 % (20-45) L 2 % (20-45) L Monocytes % (Manual) 2 % (1-10) 0 % (1-10) L Eosinophils % (Manual) 1 % (0-3) 0 % (0-3) Basophils % (Manual) 0 % (0-2) 0 % (0-2) Band Neutrophils 1 % (0-8) 3 % (0-8) Platelet Estimate Decreased L Decreased L Platelet Morphology Normal Normal Polychromasia 1+ Hypochromasia 2+ 1+ Anisocytosis 1+ Spherocytes 1+ Sodium Level 147 MMOL/L (136-145) H 147 MMOL/L (136-145) H Potassium Level 3.3 MMOL/L (3.5-5.1) L 3.2 MMOL/L (3.5-5.1) L Chloride Level 111 MMOL/L (98-107) H 111 MMOL/L (98-107) H Carbon Dioxide Level 21 MMOL/L (21-32) 19 MMOL/L (21-32) L Anion Gap 15 mmol/L (5-15) 17 mmol/L (5-15) H Blood Urea Nitrogen 100 mg/dL (7-18) H 105 mg/dL (7-18) H Creatinine 4.1 MG/DL (0.55-1.30) H 4.3 MG/DL (0.55-1.30) H Estimat Glomerular Filtration Rate mL/min (>60) mL/min (>60) Glucose Level 92 MG/DL (74-106) 120 MG/DL (74-106) H Calcium Level 7.4 MG/DL (8.5-10.1) L 7.4 MG/DL (8.5-10.1) L Total Bilirubin 0.4 MG/DL (0.2-1.0) 0.4 MG/DL (0.2-1.0) Aspartate Amino Transf (AST/SGOT) 29 U/L (15-37) 26 U/L (15-37) Alanine Aminotransferase (ALT/SGPT) 12 U/L (12-78) 14 U/L (12-78) Alkaline Phosphatase 80 U/L (46-116) 74 U/L (46-116) Total Protein 4.1 G/DL (6.4-8.2) L 4.1 G/DL (6.4-8.2) L Albumin 1.4 G/DL (3.4-5.0) L 1.4 G/DL (3.4-5.0) L Globulin 2.7 g/dL 2.7 g/dL Albumin/Globulin Ratio 0.5 (1.0-2.7) L 0.5 (1.0-2.7) L Nucleated Red Blood Cells 1 /100 WBC Prothrombin Time 14.7 SEC (9.30-11.50) H Prothromb Time International Ratio 1.4 (0.9-1.1) H Uric Acid 4.9 MG/DL (2.6-7.2) Phosphorus Level 6.2 MG/DL (2.5-4.9) H Magnesium Level 2.1 MG/DL (1.8-2.4) Pro-B-Type Natriuretic Peptide 52788 pg/mL (0-125) H Objective HEENT: Orally intubated Cardiovascular: Sinus tachycardia Respiratory/Chest: Coarse rhonchi Abdomen: Post op with 2 VELVET drain Extremities: 1 plus edema. Right groin dialysis catheter Everett Stephenson MD Jun 05, 2018 11:41
[2018-06-05] MEDS: Cefepime HCl 2 GM in D5W 55 ML IVPB SCH (12:07)
--- NOTE | 2018-06-05 12:08 | Anethesia Preoperative Eval ---
Anesthesia Pre-op PMH/ROS General Date of Evaluation: Jun 05, 2018 Anesthesiologist: Margarito ASA Score: ASA 4 - E Mallampati Score Class I : Soft palate, uvula, fauces, pillars visible Class II: Soft palate, uvula, fauces visible Class III: Soft palate, base of uvula visible Class IV: Only hard plate visible Mallampati Classification: Class II Surgeon: Beth/Geraldine Diagnosis: GI bleed Surgical Procedure: EGD/ colonoscopy, with possible ex-lap Anesthesia History: none Family History: no anesthesia problems Allergies: Coded Allergies: No Known Allergies (Unverified , 11/12/12) Patient NPO?: Yes NPO Date: Jun 04, 2018 NPO Time: 1200 Past Medical History Cardiovascular: Reports: HTN, arrhythmia - aflutter, other - CHF Pulmonary: Reports: other - respiratory failure Gastrointestinal/Genitourinary: Reports: GERD, ESRD, other - active GI bleed Neurologic/Psychiatric: Reports: depression/anxiety Hematology/Immune: Reports: anemia - acute on chronic, other - thrombocytopenia Other: other - hypokalemia, hypernatremia PSxH Narrative: lap matthew, multiple ex-laps Anesthesia Pre-op Phys. Exam Physician Exam Last Vital Signs Date Time Temp Pulse Resp B/P (MAP) Pulse Ox O2 Delivery O2 Flow Rate FiO2 06/05/18 11:00 98 20 109/22 (51) 100 06/05/18 11:00 Mechanical Ventilator 40 06/05/18 08:00 98.8 Constitutional: other - intubated, unresponsive Neurologic: other - deferred Cardiovascular: other - tachycardic Respiratory: other - intubated, on vent, +rhonchi bilaterally Airway Exam Mallampati Score: Class II MO: full ROM: full Anesthesia Pre-op A/P Labs Hematology Test 06/04/18 21:00 06/04/18 23:50 06/05/18 04:30 White Blood Count 10.4 K/UL (4.8-10.8) 12.8 K/UL (4.8-10.8) H 11.9 K/UL (4.8-10.8) H Red Blood Count 1.41 M/UL (4.70-6.10) L 3.09 M/UL (4.70-6.10) L 2.20 M/UL (4.70-6.10) L Hemoglobin 4.1 G/DL (14.2-18.0) 9.2 G/DL (14.2-18.0) #L 6.6 G/DL (14.2-18.0) *L Hematocrit 12.3 % (42.0-52.0) #L 27.1 % (42.0-52.0) #L 19.3 % (42.0-52.0) L Mean Corpuscular Volume 87 FL (80-99) 88 FL (80-99) 88 FL (80-99) Mean Corpuscular Hemoglobin 29.3 PG (27.0-31.0) 29.9 PG (27.0-31.0) 30.2 PG (27.0-31.0) Mean Corpuscular Hemoglobin Concent 33.6 G/DL (32.0-36.0) 34.1 G/DL (32.0-36.0) 34.5 G/DL (32.0-36.0) Red Cell Distribution Width 14.0 % (11.6-14.8) 13.0 % (11.6-14.8) 12.9 % (11.6-14.8) Platelet Count 58 K/UL (150-450) L 47 K/UL (150-450) L 84 K/UL (150-450) #L Mean Platelet Volume 8.2 FL (6.5-10.1) 9.5 FL (6.5-10.1) 6.4 FL (6.5-10.1) L Neutrophils (%) (Auto) % (45.0-75.0) % (45.0-75.0) % (45.0-75.0) Lymphocytes (%) (Auto) % (20.0-45.0) % (20.0-45.0) % (20.0-45.0) Monocytes (%) (Auto) % (1.0-10.0) % (1.0-10.0) % (1.0-10.0) Eosinophils (%) (Auto) % (0.0-3.0) % (0.0-3.0) % (0.0-3.0) Basophils (%) (Auto) % (0.0-2.0) % (0.0-2.0) % (0.0-2.0) Differential Total Cells Counted 100 100 Neutrophils % (Manual) 92 % (45-75) H 95 % (45-75) H Lymphocytes % (Manual) 4 % (20-45) L 2 % (20-45) L Monocytes % (Manual) 2 % (1-10) 0 % (1-10) L Eosinophils % (Manual) 1 % (0-3) 0 % (0-3) Basophils % (Manual) 0 % (0-2) 0 % (0-2) Band Neutrophils 1 % (0-8) 3 % (0-8) Platelet Estimate Decreased L Decreased L Platelet Morphology Normal Normal Polychromasia 1+ Hypochromasia 2+ 1+ Anisocytosis 1+ Spherocytes 1+ Nucleated Red Blood Cells 1 /100 WBC Coagulation Test 06/05/18 04:30 Prothrombin Time 14.7 SEC (9.30-11.50) H Prothromb Time International Ratio 1.4 (0.9-1.1) H Chemistry Test 06/04/18 23:50 06/05/18 04:30 Sodium Level 147 MMOL/L (136-145) H 147 MMOL/L (136-145) H Potassium Level 3.3 MMOL/L (3.5-5.1) L 3.2 MMOL/L (3.5-5.1) L Chloride Level 111 MMOL/L (98-107) H 111 MMOL/L (98-107) H Carbon Dioxide Level 21 MMOL/L (21-32) 19 MMOL/L (21-32) L Anion Gap 15 mmol/L (5-15) 17 mmol/L (5-15) H Blood Urea Nitrogen 100 mg/dL (7-18) H 105 mg/dL (7-18) H Creatinine 4.1 MG/DL (0.55-1.30) H 4.3 MG/DL (0.55-1.30) H Estimat Glomerular Filtration Rate mL/min (>60) mL/min (>60) Glucose Level 92 MG/DL (74-106) 120 MG/DL (74-106) H Calcium Level 7.4 MG/DL (8.5-10.1) L 7.4 MG/DL (8.5-10.1) L Total Bilirubin 0.4 MG/DL (0.2-1.0) 0.4 MG/DL (0.2-1.0) Aspartate Amino Transf (AST/SGOT) 29 U/L (15-37) 26 U/L (15-37) Alanine Aminotransferase (ALT/SGPT) 12 U/L (12-78) 14 U/L (12-78) Alkaline Phosphatase 80 U/L (46-116) 74 U/L (46-116) Total Protein 4.1 G/DL (6.4-8.2) L 4.1 G/DL (6.4-8.2) L Albumin 1.4 G/DL (3.4-5.0) L 1.4 G/DL (3.4-5.0) L Globulin 2.7 g/dL 2.7 g/dL Albumin/Globulin Ratio 0.5 (1.0-2.7) L 0.5 (1.0-2.7) L Uric Acid 4.9 MG/DL (2.6-7.2) Phosphorus Level 6.2 MG/DL (2.5-4.9) H Magnesium Level 2.1 MG/DL (1.8-2.4) Pro-B-Type Natriuretic Peptide 15300 pg/mL (0-125) H Studies Pre-op Studies: EKG - ST Risk Assessment & Plan Assessment: ASA 4E, patient with active GI bleed, to OR for emergent EGD/colonoscopy with possible emergent ex-lap if bleeding cant be controlled Plan: GA Status Change Before Surgery: No - emergent Pre-Antibiotics Drug: Unique Mclean MD Jun 05, 2018 12:08
[2018-06-05] MEDS ORDERED: Zemuron 50mg/5ml Inj IV ONE (12:28)
--- NOTE | 2018-06-05 12:30 | NUR ---
CASE MANAGEMENT: REVIEW SI: ESRD ON HD . ACS . A-FIB RIGHT FEMORAL TEMPORARY HEMODIALYSIS CATHETER INSERTION 05/13 T 98.8 HR 114 RR 27 BP 73/45 SAT 100% MECH VENT FIO2 40 WBC 11.9 H/H 6.6/19.3 NA 147 K 3.2 IS: TPN IV Q24HR VIT K SQ 1/WEEK LEVEMIR SQ Q12HR FENTANYL IV Q24HR PROCRIT SQ MWF VASOPRESSIN IV Q24HR LEVOPHED IV Q24HR ICU STATUS DCP: PATIENT IS FROM HOME
--- NOTE | 2018-06-05 12:49 | Pre-Procedure Note/Attestation ---
Pre-Procedure Note/Attestation Complete Prior to Procedure Planned Procedure: not applicable Procedure Narrative: esophagogastroduodenoscopy and colonoscopy Indications for Procedure Pre-Operative Diagnosis: GIB Attestation I attest that I discussed the nature of the procedure; its benefits; risks and complications; and alternatives (and the risks and benefits of such alternatives ), prior to the procedure, with the patient (or the patient's legal district representative). I attest that, if there was a reasonable possibility of needing a blood transfusion, the patient (or the patient's legal district representative) was given the [facility] standardized written summary, pursuant to the Kj Pancho Blood Safety Act ([place] Health and Safety Code # 1645, as amended). I attest that I re-evaluated the patient just prior to the surgery and that there has been no change in the patient's H&P, except as documented below: Martín Campos MD Jun 05, 2018 12:49
--- NOTE | 2018-06-05 13:00 | NUR ---
NURSE NOTES: Pt is off the unit for surgery.
[2018-06-05] MEDS ORDERED: Lidocaine 1% MPF 10mg/ml 5ml ONE (13:04)
[2018-06-05] MEDS ORDERED: Propofol 200mg/20ml IV ONE (13:04)
[2018-06-05] MEDS ORDERED: Midazolam 2mg/2ml Inj ONE ×2 (13:05→13:29)
[2018-06-05] MEDS ORDERED: fentaNYL 100 mcg/2 mL IV ONE (13:05)
[2018-06-05] MEDS ORDERED: Ketamine 500mg Inj ONE (13:06)
[2018-06-05 13:22] LABS: HEMATOCRIT 26.3 % (42.0-52.0); HEMOGLOBIN 9.1 G/DL (14.2-18.0); MEAN CORPUSCULAR VOLUME 88 FL (80-99); PLATELET COUNT 75 K/UL (150-450); RED BLOOD COUNT 2.97 M/UL (4.70-6.10); RED CELL DISTRIBUTION WIDTH 13.1 % (11.6-14.8); WHITE BLOOD COUNT 11.8 K/UL (4.8-10.8)
[2018-06-05 13:31] LABS: INR 1.4 (0.9-1.1)
--- NOTE | 2018-06-05 14:30 | NUR ---
NURSE NOTES: Pt came back from Surgery. Endoscopy and Colonoscopy done by Dr Campos. BP 81/31, HR 119, O2 sat 100%. Will continue to monitor.
--- NOTE | 2018-06-05 14:47 | Immediate Post-Op Evaluation ---
Immediate Post-Op Evalulation Immediate Post-Op Evalulation Procedure: revision of small bowel anastamosis closure of abdominal wound Date of Evaluation: Jun 05, 2018 Time of Evaluation: 14:33 IV Fluids: 300 Blood Products: 0 Estimated Blood Loss: min Urinary Output: 0 Blood Pressure Systolic: 110 Blood Pressure Diastolic: 49 Pulse Rate: 110 Respiratory Rate: 19 O2 Sat by Pulse Oximetry: 100 Temperature (Fahrenheit): 97.2 Pain Score (1-10): 0 Nausea: No Vomiting: No Complications 0 Patient Status: no response - sedated, ventilated, none Hydration Status: adequate Drug: N/A Unique Reynolds MD Jun 05, 2018 14:47
[2018-06-05] MEDS ORDERED: Tubing IV Secondary IV ONE (15:17)
[2018-06-05] MEDS ORDERED: NS 275ml ONE ×2 (15:17→15:18)
[2018-06-05] MEDS ORDERED: Tubing Blood Filter IV ONE ×2 (15:17→15:18)
[2018-06-05] MEDS ORDERED: Sterile Water For Irrig 2000ml IRRIG ONE (15:18)
--- NOTE | 2018-06-05 15:23 | Endoscopy Procedure Note ---
Endoscopy Procedure Note General Indication for Procedure: gib Procedures Performed: EGD, colonoscopy Operative Findings/Diagnosis: gastritis, esophagitis Specimen: yes Pt Tolerated Procedure Well: Yes Estimated Blood Loss: none Anesthesia Anesthesiologist: martin Anesthesia: MAC Inserted Devices Implant(s) used?: No Quality Quality of Bowel Preparation: Good Did scope reach the cecum?: Yes Was there any complications?: No GI Core Measures 50 yrs or older w/o bx or poly: Not Applicable 10yrs. F/U not recommended: Not Applicable Martín Campos MD Jun 05, 2018 15:23
--- NOTE | 2018-06-05 15:55 | Nephrology Progress Note ---
Assessment/Plan Problem List: (1) ESRD (end stage renal disease) on dialysis (2) Perforated bowel (3) Hyponatremia (4) Major depression (5) Nausea & vomiting (6) H/O abdominal surgery Assessment: recent (7) Shock Assessment back on pressors bleeding, sit unknown recent abdominal surgery Presents with CHF and Low Na ESRD ACS DM HTN h/o GI bleed Depression Plan surgical eval in process transfuse more K in TPN Stop Mag in TPN Down Na in TPN remains intubated On pressors again on TPN- adjust Na and K and Mag in TPN on steroids vented insulin for high BS hold dig , check levels, resume as needed Has abd surgery 05/15 Perforated bowel graft clotted , has a femoral felice right HOLD ALL MIND ALTERING MEDS - DC all po meds FLUID CHALLENGE pressors as needed BP HR Pain control discussed with RN and Dr Jones IV protonix Subjective ROS Limited/Unobtainable: Yes Objective Objective Last 24 Hour Vital Signs Date Time Temp Pulse Resp B/P (MAP) Pulse Ox O2 Delivery O2 Flow Rate FiO2 06/05/18 15:15 111 20 90/31 (50) 100 06/05/18 15:00 20 Mechanical Ventilator 40 06/05/18 15:00 89/69 06/05/18 15:00 111 20 89/69 (76) 100 06/05/18 14:49 111 20 40 06/05/18 14:47 110 19 100 06/05/18 14:45 95 20 65/21 (36) 100 06/05/18 14:30 114 20 81/31 (48) 100 06/05/18 14:00 Mechanical Ventilator 40 06/05/18 13:00 22 Mechanical Ventilator 40 06/05/18 12:37 119 24 40 06/05/18 12:30 98.1 108 23 93/16 (41) 100 06/05/18 12:07 26 Mechanical Ventilator 40 06/05/18 12:07 119/25 06/05/18 12:00 117 26 119/25 (56) 100 06/05/18 12:00 40 06/05/18 12:00 Mechanical Ventilator Mechanical Ventilator 06/05/18 12:00 106 06/05/18 11:30 111 21 122/67 (85) 100 06/05/18 11:00 98 20 109/22 (51) 100 06/05/18 11:00 20 Mechanical Ventilator 40 06/05/18 11:00 20 Mechanical Ventilator 40 06/05/18 11:00 20 Mechanical Ventilator 40 06/05/18 11:00 20 Mechanical Ventilator 40 06/05/18 11:00 118/25 06/05/18 11:00 118/25 06/05/18 11:00 118/25 06/05/18 11:00 118/25 06/05/18 10:58 101 22 40 06/05/18 10:30 98 21 95/49 (64) 100 06/05/18 10:00 102 21 109/31 (57) 100 06/05/18 10:00 22 Mechanical Ventilator 40 06/05/18 10:00 95/49 06/05/18 09:30 104 21 102/46 (64) 100 06/05/18 09:12 96 06/05/18 09:03 20 Mechanical Ventilator 40 06/05/18 09:00 20 Mechanical Ventilator 40 06/05/18 09:00 108/55 06/05/18 09:00 94 21 108/55 (72) 100 06/05/18 08:32 87 20 40 06/05/18 08:30 92 20 79/27 (44) 100 06/05/18 08:00 Mechanical Ventilator Mechanical Ventilator 06/05/18 08:00 98.8 98 20 83/42 (56) 100 06/05/18 08:00 98 06/05/18 08:00 20 Mechanical Ventilator 40 06/05/18 08:00 83/42 06/05/18 08:00 40 06/05/18 07:45 102 20 79/27 (44) 100 06/05/18 07:30 108 25 92/67 (75) 100 06/05/18 07:15 114 27 73/45 (54) 100 06/05/18 07:00 111 25 82/38 (53) 100 06/05/18 07:00 20 Mechanical Ventilator 40 06/05/18 07:00 73/45 06/05/18 06:45 120 29 40 06/05/18 06:00 111 25 82/38 (53) 100 06/05/18 06:00 Mechanical Ventilator 40 06/05/18 06:00 82/38 06/05/18 05:42 97/50 06/05/18 05:30 112 22 105/49 (67) 100 06/05/18 05:00 22 Mechanical Ventilator 40 06/05/18 05:00 106 25 97/50 (66) 100 06/05/18 04:43 110 26 40 06/05/18 04:30 111 20 88/32 (50) 100 06/05/18 04:00 Mechanical Ventilator Mechanical Ventilator 06/05/18 04:00 110 06/05/18 04:00 99.9 107 22 114/30 (58) 100 06/05/18 04:00 22 Mechanical Ventilator 40 06/05/18 04:00 40 06/05/18 03:30 107 24 101/41 (61) 100 06/05/18 03:18 102 21 40 06/05/18 03:00 99 23 95/35 (55) 100 06/05/18 03:00 25 Mechanical Ventilator 40 06/05/18 02:30 100 21 81/22 (41) 100 06/05/18 02:00 24 Mechanical Ventilator 40 06/05/18 02:00 109 23 81/20 (40) 100 06/05/18 01:30 116 22 40 06/05/18 01:30 114 25 89/31 (50) 100 06/05/18 01:00 104 21 78/35 (49) 100 06/05/18 00:30 101 22 97/37 (57) 100 06/05/18 00:00 Mechanical Ventilator Mechanical Ventilator 06/05/18 00:00 99.3 103 24 93/35 (54) 100 06/05/18 00:00 40 06/05/18 00:00 103 06/04/18 23:30 99 25 89/29 (49) 100 06/04/18 23:17 93 21 Mechanical Ventilator 40 06/04/18 23:15 94 21 40 06/04/18 23:00 100 22 100/39 (59) 100 06/04/18 22:30 105 26 136/45 (75) 100 06/04/18 22:00 100 22 100/37 (58) 100 06/04/18 21:30 100 25 81/27 (45) 100 06/04/18 21:00 104 30 81/27 (45) 100 06/04/18 20:58 97 28 40 06/04/18 20:30 105 30 71/23 (39) 100 06/04/18 20:25 30 Mechanical Ventilator 40 06/04/18 20:25 97/35 06/04/18 20:00 105 06/04/18 20:00 40 06/04/18 20:00 Mechanical Ventilator Mechanical Ventilator 06/04/18 20:00 107 31 83/18 (39) 100 06/04/18 19:30 98.0 106 31 83/18 (39) 100 06/04/18 19:30 98 30 40 06/04/18 19:00 99 28 93/19 (43) 100 06/04/18 18:42 74/29 06/04/18 18:00 104 31 83/49 (60) 100 06/04/18 17:00 107 28 111/43 (65) 100 06/04/18 16:55 93 27 40 06/04/18 16:00 Mechanical Ventilator Mechanical Ventilator 06/04/18 16:00 40 06/04/18 16:00 98.8 111 28 107/43 (64) 100 Intake and Output 06/04/18 06/05/18 19:00 07:00 Intake Total 2389.453 ml 3282.004 ml Output Total 495 ml 175 ml Balance 1894.453 ml 3107.004 ml IV Total 1172.453 ml 1776.004 ml Blood Product 1217 ml 1506 ml Emesis 400 ml Drainage Total 95 ml 175 ml # Bowel Movements 7 5 Laboratory Tests 06/04/18 17:42: Arterial Blood pH 7.410, Arterial Blood Partial Pressure CO2 37.4, Arterial Blood Partial Pressure O2 145.0H, Arterial Blood HCO3 23.2, Arterial Blood Oxygen Saturation 98.0, Arterial Blood Base Excess -1.1, Luiz Test Positive 06/04/18 21:00: White Blood Count 10.4, Red Blood Count 1.41L, Hemoglobin 4.1#*L, Hematocrit 12.3#L, Mean Corpuscular Volume 87, Mean Corpuscular Hemoglobin 29.3, Mean Corpuscular Hemoglobin Concent 33.6, Red Cell Distribution Width 14.0, Platelet Count 58L, Mean Platelet Volume 8.2, Neutrophils (%) (Auto) , Lymphocytes (%) ( Auto) , Monocytes (%) (Auto) , Eosinophils (%) (Auto) , Basophils (%) (Auto) , Differential Total Cells Counted 100, Neutrophils % (Manual) 92H, Lymphocytes % (Manual) 4L, Monocytes % (Manual) 2, Eosinophils % (Manual) 1, Basophils % ( Manual) 0, Band Neutrophils 1, Platelet Estimate DecreasedL, Platelet Morphology Normal, Polychromasia 1+, Hypochromasia 2+, Anisocytosis 1+, Spherocytes 1+ 06/04/18 23:50: White Blood Count 12.8H, Red Blood Count 3.09L, Hemoglobin 9.2#L, Hematocrit 27.1#L, Mean Corpuscular Volume 88, Mean Corpuscular Hemoglobin 29.9, Mean Corpuscular Hemoglobin Concent 34.1, Red Cell Distribution Width 13.0, Platelet Count 47L, Mean Platelet Volume 9.5, Neutrophils (%) (Auto) , Lymphocytes (%) ( Auto) , Monocytes (%) (Auto) , Eosinophils (%) (Auto) , Basophils (%) (Auto) , Sodium Level 147H, Potassium Level 3.3L, Chloride Level 111H, Carbon Dioxide Level 21, Anion Gap 15, Blood Urea Nitrogen 100H, Creatinine 4.1H, Estimat Glomerular Filtration Rate , Glucose Level 92, Calcium Level 7.4L, Total Bilirubin 0.4, Aspartate Amino Transf (AST/SGOT) 29, Alanine Aminotransferase ( ALT/SGPT) 12, Alkaline Phosphatase 80, Total Protein 4.1L, Albumin 1.4L, Globulin 2.7, Albumin/Globulin Ratio 0.5L 06/05/18 04:30: White Blood Count 11.9H, Red Blood Count 2.20L, Hemoglobin 6.6*L, Hematocrit 19.3L, Mean Corpuscular Volume 88, Mean Corpuscular Hemoglobin 30.2, Mean Corpuscular Hemoglobin Concent 34.5, Red Cell Distribution Width 12.9, Platelet Count 84#L, Mean Platelet Volume 6.4L, Neutrophils (%) (Auto) , Lymphocytes (%) (Auto) , Monocytes (%) (Auto) , Eosinophils (%) (Auto) , Basophils (%) (Auto) , Differential Total Cells Counted 100, Neutrophils % (Manual) 95H, Lymphocytes % (Manual) 2L, Monocytes % (Manual) 0L, Eosinophils % (Manual) 0, Basophils % ( Manual) 0, Band Neutrophils 3, Platelet Estimate DecreasedL, Platelet Morphology Normal, Hypochromasia 1+, Sodium Level 147H, Potassium Level 3.2L, Chloride Level 111H, Carbon Dioxide Level 19L, Anion Gap 17H, Blood Urea Nitrogen 105H, Creatinine 4.3H, Estimat Glomerular Filtration Rate , Glucose Level 120H, Calcium Level 7.4L, Total Bilirubin 0.4, Aspartate Amino Transf (AST /SGOT) 26, Alanine Aminotransferase (ALT/SGPT) 14, Alkaline Phosphatase 74, Total Protein 4.1L, Albumin 1.4L, Globulin 2.7, Albumin/Globulin Ratio 0.5L, Nucleated Red Blood Cells 1, Prothrombin Time 14.7H, Prothromb Time International Ratio 1.4H, Uric Acid 4.9, Phosphorus Level 6.2H, Magnesium Level 2.1, Pro-B-Type Natriuretic Peptide [id number] 06/05/18 12:30: White Blood Count 11.8H, Red Blood Count 2.97L, Hemoglobin 9.1#L, Hematocrit 26.3#L, Mean Corpuscular Volume 88, Mean Corpuscular Hemoglobin 30.7, Mean Corpuscular Hemoglobin Concent 34.8, Red Cell Distribution Width 13.1, Platelet Count 75L, Mean Platelet Volume 7.6, Neutrophils (%) (Auto) , Lymphocytes (%) ( Auto) , Monocytes (%) (Auto) , Eosinophils (%) (Auto) , Basophils (%) (Auto) , Differential Total Cells Counted 100, Neutrophils % (Manual) 90H, Lymphocytes % (Manual) 6L, Monocytes % (Manual) 3, Eosinophils % (Manual) 0, Basophils % ( Manual) 0, Band Neutrophils 1, Platelet Estimate DecreasedL, Platelet Morphology Normal, Red Blood Cell Morphology , Hypochromasia 1+, Prothrombin Time 15.0H, Prothromb Time International Ratio 1.4H, Activated Partial Thromboplast Time 36H Height (Feet): 5 Height (Inches): 5.00 Weight (Pounds): 190 General Appearance: no apparent distress EENT: other - vented Cardiovascular: tachycardia Abdomen: distended Objective no change Maurilio Arroyo MD Jun 05, 2018 15:54
--- NOTE | 2018-06-05 16:17 | NUR ---
NURSE NOTES: Pt is still sedated from the procedure. Levophed is running 12 mcg/min. BP 109/33. Turned and repositioned pt. Will continue to monitor.
--- NOTE | 2018-06-05 16:19 | General Progress Note ---
Assessment/Plan Assessment/Plan # Anemia of chronic disease due to underlying chronic medical issues, multifactorial --> Anemia w/u has been reviewed, reordered and ferritin is >2000 --> trend 10.3-->7.6-->8.9-->10.3-->9.5-->9.2-->8.3-->7.9-->8-->7.1-->9.-->9--> 8.5 --> Started to have rectal bleed and received blood transfusion 2 prbc 06/04/18 --> okay to give blood and products as patient unable to give consent, 2MD consent done --> continue Procrit 3x a week (started on 05/30) 3,000 sq dose # Thrombocytopenia due to septic shock --> vit K given for coagulopathy --> plt 163k-->116k-->83k-->98k-->105k-->109k-->108-->75 # Small bowel perforation, s/p bowel resection, with Gram negative sepsis is on abx In ICU s/p Small bowel resection --> on broad spectrum abx --> on vanc/cefepime as per id--> now changed to zosyn, flagyl, micafungin--> on cefepime, levaquin and change per id --> s/p sb resection on 05/15, appreciate surg recs --> off pressors now -->Continues with GI bleed and has rectal tube. Going for EGD,Colonoscopy and re do surgery again # Hypofibrinoginemia -- potentially consumptive process given sepsis --> cryo given weeek of 05/23 --> fibrinogen 541 --> okay to give blood and products as patient unable to give consent, 2MD consent done # Lower extremity edema with an elevated BNP in a patient with renal failure on hemodialysis. --> on HD per Dr. Arroyo. --> currently has improved, continue to monitor # Atrial fib w rvr/flutter, being seen by cards, has converted to sr --> Cardiology is following, appreciate recs, echo was reviewed --> Currently denies any chest pain, completely rule out ACS --> EKG showed old inferior and anterior wall MO, but no ischemia --> ECHO with normal LV function --> now off hep gtt now --> off coumadin given drop in h/h # End-stage renal disease, on hemodialysis and also hyponatremia. --> Nephro is following, appreciate recs. HD approx 3x a week --> On intermittent HD # Respiratory failure on a vent, intubated # Mental status/confusion --> worsened at this time The time of note does not necessarily reflect the time of encounter Greatly appreciate consultation! Subjective ROS Limited/Unobtainable: Yes Allergies: Coded Allergies: No Known Allergies (Unverified , 11/12/12) Subjective 05/12: Pt resting in bed. No acute events. H/H stable. On abx. VS stable. 05/13: on pressors, on hep gtt, on steriods, abx, got hd, felice catheter in place : CT-A was negative, hep gtt as per cards, abg reviewed, moaning on exam, on ceftriaxone 05/15 :Pt remains in ICU. Currently undergoing HD. Pt on 2 cardiac drips for elevated Bp. WBC remains elevated. H/H stable. 05/16: s/p sb resection, In ICU s/p Small bowel resection on Amiodarone and Levophed drip. HR around 100. 05/17: Orally intubated on Ac 16, Vt 500, P 5 fio2 30%. Pt continues NPO at this time. Right upper arm and right FA IV sites patent and intact at this time. Amio gtt running 05/18: Pt remains in ICU. Pt for STAT HD. WBC remains elevated, afebrile. 05/19: getting hd periodically, no other events, vent to be weaned, labs reviewed, on dilaudid, ativan and fentanyl per pulm 05/21: prognosis is more guarded, no events to report, no f/c, but on two pressors now, on hep gtt for antonio thrombosis, hd as well 3x/week 2: on 2 pressors, seen by cards, renal, ryan drain draining improved, still on vent, converted to sr, on amio gtt, lactic acid downtrending, minimally responsive, on heparin gtt as well for antonio thrombus 05/23: patient to go to OR [facility] potential washout, ostomy, and line placement, fibrinogen low, needs cryoprecipirate, will also check inr/pt, cbc reviewed, electrolytes noted 05/24: Patient continues to be intubated on vent. He is s/p exploratory lap with wound washout and wound vac placement. 05/25: Pt is seen in the room, resting in bed. doing well since wound vac change , cbc reviewed, plt 163 05/26: Patient is is seen at bedside, intubated on vent. Wound vac still applied. No signs of pain at this time. Plt 116 . 1.7: again off pressors, plt somewhat lower, monitoring meds, on amio, antifungal as well, could be contributing, platelets and vitk given 05/28: had more surgeries yesterday with Right hemicolectomy, omentectomy & removal of wound-vac, off pressors, HD 05/29/18, on vent, stable 05/29: extubated but reintubated, on cefepime at this time, amiodarone, being seen by jake, procrit started 05/30: Pt is in ICU, Extubated and reintubated yesterday.Off Levophed and Heparin drip since surgery. On the Vent. 05/31: no events, remains on the vent, off pressors, received hd today 2.5L were removed 06/01: no fevers or chills, receiving hd as needed, on 1 pressors, not tolerating SBT very well 06/02: on a vent, no f/c noted, remains in the icu, poorly responsive at this time 06/03:Pt seen at bedside, in ICU on the vent. Off Amiodarone drip due to bradycardia. Off pressors, Had HD, leukocytosis trending down 14 today, plt 108 06/04: pt is lying in bed, on vent, Pt started to have rectal bleed and received blood transfusion 2 prbc. wbc 11, hgb 8.5 plt 73 06/05: Pt is seen in ICU on the vent. Having GI bleed and has rectal tube, On Levophed now and getting transfusion. Will go for EGD,Colonoscopy and re do surgery again. Objective Last 24 Hour Vital Signs Date Time Temp Pulse Resp B/P (MAP) Pulse Ox O2 Delivery O2 Flow Rate FiO2 06/05/18 16:00 111 20 88/33 (51) 100 06/05/18 16:00 Mechanical Ventilator Mechanical Ventilator 06/05/18 16:00 20 Mechanical Ventilator 40 06/05/18 16:00 88/33 06/05/18 15:30 111 20 99/45 (63) 100 06/05/18 15:15 111 20 90/31 (50) 100 06/05/18 15:00 20 Mechanical Ventilator 40 06/05/18 15:00 89/69 06/05/18 15:00 111 20 89/69 (76) 100 06/05/18 14:49 111 20 40 06/05/18 14:47 110 19 100 06/05/18 14:45 95 20 65/21 (36) 100 06/05/18 14:30 114 20 81/31 (48) 100 06/05/18 14:00 Mechanical Ventilator 40 06/05/18 13:00 22 Mechanical Ventilator 40 06/05/18 12:37 119 24 40 06/05/18 12:30 98.1 108 23 93/16 (41) 100 06/05/18 12:07 26 Mechanical Ventilator 40 06/05/18 12:07 119/25 06/05/18 12:00 117 26 119/25 (56) 100 06/05/18 12:00 40 06/05/18 12:00 Mechanical Ventilator Mechanical Ventilator 06/05/18 12:00 106 06/05/18 11:30 111 21 122/67 (85) 100 06/05/18 11:00 98 20 109/22 (51) 100 06/05/18 11:00 20 Mechanical Ventilator 40 06/05/18 11:00 20 Mechanical Ventilator 40 06/05/18 11:00 20 Mechanical Ventilator 40 06/05/18 11:00 20 Mechanical Ventilator 40 06/05/18 11:00 118/25 06/05/18 11:00 118/25 06/05/18 11:00 118/25 06/05/18 11:00 118/25 06/05/18 10:58 101 22 40 06/05/18 10:30 98 21 95/49 (64) 100 06/05/18 10:00 102 21 109/31 (57) 100 06/05/18 10:00 22 Mechanical Ventilator 40 06/05/18 10:00 95/49 06/05/18 09:30 104 21 102/46 (64) 100 06/05/18 09:12 96 06/05/18 09:03 20 Mechanical Ventilator 40 06/05/18 09:00 20 Mechanical Ventilator 40 06/05/18 09:00 108/55 06/05/18 09:00 94 21 108/55 (72) 100 06/05/18 08:32 87 20 40 06/05/18 08:30 92 20 79/27 (44) 100 06/05/18 08:00 Mechanical Ventilator Mechanical Ventilator 06/05/18 08:00 98.8 98 20 83/42 (56) 100 06/05/18 08:00 98 06/05/18 08:00 20 Mechanical Ventilator 40 06/05/18 08:00 83/42 06/05/18 08:00 40 06/05/18 07:45 102 20 79/27 (44) 100 06/05/18 07:30 108 25 92/67 (75) 100 06/05/18 07:15 114 27 73/45 (54) 100 06/05/18 07:00 111 25 82/38 (53) 100 06/05/18 07:00 20 Mechanical Ventilator 40 06/05/18 07:00 73/45 06/05/18 06:45 120 29 40 06/05/18 06:00 111 25 82/38 (53) 100 06/05/18 06:00 Mechanical Ventilator 40 06/05/18 06:00 82/38 06/05/18 05:42 97/50 06/05/18 05:30 112 22 105/49 (67) 100 06/05/18 05:00 22 Mechanical Ventilator 40 06/05/18 05:00 106 25 97/50 (66) 100 06/05/18 04:43 110 26 40 06/05/18 04:30 111 20 88/32 (50) 100 06/05/18 04:00 Mechanical Ventilator Mechanical Ventilator 06/05/18 04:00 110 06/05/18 04:00 99.9 107 22 114/30 (58) 100 06/05/18 04:00 22 Mechanical Ventilator 40 06/05/18 04:00 40 06/05/18 03:30 107 24 101/41 (61) 100 06/05/18 03:18 102 21 40 06/05/18 03:00 99 23 95/35 (55) 100 06/05/18 03:00 25 Mechanical Ventilator 40 06/05/18 02:30 100 21 81/22 (41) 100 06/05/18 02:00 24 Mechanical Ventilator 40 06/05/18 02:00 109 23 81/20 (40) 100 06/05/18 01:30 116 22 40 06/05/18 01:30 114 25 89/31 (50) 100 06/05/18 01:00 104 21 78/35 (49) 100 06/05/18 00:30 101 22 97/37 (57) 100 06/05/18 00:00 Mechanical Ventilator Mechanical Ventilator 06/05/18 00:00 99.3 103 24 93/35 (54) 100 06/05/18 00:00 40 06/05/18 00:00 103 06/04/18 23:30 99 25 89/29 (49) 100 06/04/18 23:17 93 21 Mechanical Ventilator 40 06/04/18 23:15 94 21 40 06/04/18 23:00 100 22 100/39 (59) 100 06/04/18 22:30 105 26 136/45 (75) 100 06/04/18 22:00 100 22 100/37 (58) 100 06/04/18 21:30 100 25 81/27 (45) 100 06/04/18 21:00 104 30 81/27 (45) 100 06/04/18 20:58 97 28 40 06/04/18 20:30 105 30 71/23 (39) 100 06/04/18 20:25 30 Mechanical Ventilator 40 06/04/18 20:25 97/35 06/04/18 20:00 105 06/04/18 20:00 40 06/04/18 20:00 Mechanical Ventilator Mechanical Ventilator 06/04/18 20:00 107 31 83/18 (39) 100 06/04/18 19:30 98.0 106 31 83/18 (39) 100 06/04/18 19:30 98 30 40 06/04/18 19:00 99 28 93/19 (43) 100 06/04/18 18:42 74/29 06/04/18 18:00 104 31 83/49 (60) 100 06/04/18 17:00 107 28 111/43 (65) 100 06/04/18 16:55 93 27 40 Intake and Output 06/04/18 06/05/18 19:00 07:00 Intake Total 2389.453 ml 3282.004 ml Output Total 495 ml 175 ml Balance 1894.453 ml 3107.004 ml IV Total 1172.453 ml 1776.004 ml Blood Product 1217 ml 1506 ml Emesis 400 ml Drainage Total 95 ml 175 ml # Bowel Movements 7 5 Laboratory Tests 06/04/18 17:42: Arterial Blood pH 7.410, Arterial Blood Partial Pressure CO2 37.4, Arterial Blood Partial Pressure O2 145.0H, Arterial Blood HCO3 23.2, Arterial Blood Oxygen Saturation 98.0, Arterial Blood Base Excess -1.1, Luiz Test Positive 06/04/18 21:00: White Blood Count 10.4, Red Blood Count 1.41L, Hemoglobin 4.1#*L, Hematocrit 12.3#L, Mean Corpuscular Volume 87, Mean Corpuscular Hemoglobin 29.3, Mean Corpuscular Hemoglobin Concent 33.6, Red Cell Distribution Width 14.0, Platelet Count 58L, Mean Platelet Volume 8.2, Neutrophils (%) (Auto) , Lymphocytes (%) ( Auto) , Monocytes (%) (Auto) , Eosinophils (%) (Auto) , Basophils (%) (Auto) , Differential Total Cells Counted 100, Neutrophils % (Manual) 92H, Lymphocytes % (Manual) 4L, Monocytes % (Manual) 2, Eosinophils % (Manual) 1, Basophils % ( Manual) 0, Band Neutrophils 1, Platelet Estimate DecreasedL, Platelet Morphology Normal, Polychromasia 1+, Hypochromasia 2+, Anisocytosis 1+, Spherocytes 1+ 06/04/18 23:50: White Blood Count 12.8H, Red Blood Count 3.09L, Hemoglobin 9.2#L, Hematocrit 27.1#L, Mean Corpuscular Volume 88, Mean Corpuscular Hemoglobin 29.9, Mean Corpuscular Hemoglobin Concent 34.1, Red Cell Distribution Width 13.0, Platelet Count 47L, Mean Platelet Volume 9.5, Neutrophils (%) (Auto) , Lymphocytes (%) ( Auto) , Monocytes (%) (Auto) , Eosinophils (%) (Auto) , Basophils (%) (Auto) , Sodium Level 147H, Potassium Level 3.3L, Chloride Level 111H, Carbon Dioxide Level 21, Anion Gap 15, Blood Urea Nitrogen 100H, Creatinine 4.1H, Estimat Glomerular Filtration Rate , Glucose Level 92, Calcium Level 7.4L, Total Bilirubin 0.4, Aspartate Amino Transf (AST/SGOT) 29, Alanine Aminotransferase ( ALT/SGPT) 12, Alkaline Phosphatase 80, Total Protein 4.1L, Albumin 1.4L, Globulin 2.7, Albumin/Globulin Ratio 0.5L 06/05/18 04:30: White Blood Count 11.9H, Red Blood Count 2.20L, Hemoglobin 6.6*L, Hematocrit 19.3L, Mean Corpuscular Volume 88, Mean Corpuscular Hemoglobin 30.2, Mean Corpuscular Hemoglobin Concent 34.5, Red Cell Distribution Width 12.9, Platelet Count 84#L, Mean Platelet Volume 6.4L, Neutrophils (%) (Auto) , Lymphocytes (%) (Auto) , Monocytes (%) (Auto) , Eosinophils (%) (Auto) , Basophils (%) (Auto) , Differential Total Cells Counted 100, Neutrophils % (Manual) 95H, Lymphocytes % (Manual) 2L, Monocytes % (Manual) 0L, Eosinophils % (Manual) 0, Basophils % ( Manual) 0, Band Neutrophils 3, Platelet Estimate DecreasedL, Platelet Morphology Normal, Hypochromasia 1+, Sodium Level 147H, Potassium Level 3.2L, Chloride Level 111H, Carbon Dioxide Level 19L, Anion Gap 17H, Blood Urea Nitrogen 105H, Creatinine 4.3H, Estimat Glomerular Filtration Rate , Glucose Level 120H, Calcium Level 7.4L, Total Bilirubin 0.4, Aspartate Amino Transf (AST /SGOT) 26, Alanine Aminotransferase (ALT/SGPT) 14, Alkaline Phosphatase 74, Total Protein 4.1L, Albumin 1.4L, Globulin 2.7, Albumin/Globulin Ratio 0.5L, Nucleated Red Blood Cells 1, Prothrombin Time 14.7H, Prothromb Time International Ratio 1.4H, Uric Acid 4.9, Phosphorus Level 6.2H, Magnesium Level 2.1, Pro-B-Type Natriuretic Peptide [id number] 06/05/18 12:30: White Blood Count 11.8H, Red Blood Count 2.97L, Hemoglobin 9.1#L, Hematocrit 26.3#L, Mean Corpuscular Volume 88, Mean Corpuscular Hemoglobin 30.7, Mean Corpuscular Hemoglobin Concent 34.8, Red Cell Distribution Width 13.1, Platelet Count 75L, Mean Platelet Volume 7.6, Neutrophils (%) (Auto) , Lymphocytes (%) ( Auto) , Monocytes (%) (Auto) , Eosinophils (%) (Auto) , Basophils (%) (Auto) , Differential Total Cells Counted 100, Neutrophils % (Manual) 90H, Lymphocytes % (Manual) 6L, Monocytes % (Manual) 3, Eosinophils % (Manual) 0, Basophils % ( Manual) 0, Band Neutrophils 1, Platelet Estimate DecreasedL, Platelet Morphology Normal, Red Blood Cell Morphology , Hypochromasia 1+, Prothrombin Time 15.0H, Prothromb Time International Ratio 1.4H, Activated Partial Thromboplast Time 36H Height (Feet): 5 Height (Inches): 5.00 Weight (Pounds): 190 Objective PE: VITAL SIGNS: Have been reviewed HEENT: PERRLA. intubated, vent++ NECK: Supple. No lymphadenopathy CHEST: ++ intubated CARDIOVASCULAR: Tachycardic. GASTROINTESTINAL: Distended. Positive bowel sounds. Nontender. No organomegaly. ++ ryan drain in place EXTREMITY: 2+ edema. NEURO: responsive to simple command Reinaldo Leon MD Jun 05, 2018 16:19
--- NOTE | 2018-06-05 17:11 | NUR ---
Social Service Note LENA spoke with patient's niece Rody in [facility] [phone]. Patient's sister Cha will be traveling from [facility] tomorrow at arriving at 1730. LENA will meet with sister on Sunday06/07/18 to address code status and treatment plan of care. LENA informed PMD and Consultants. Will continue to monitor. Addendum: 06/05/18 at 1716 by LUKAS FRANCISCO [facility] bilingual interpreter [phone] provided translation.
--- NOTE | 2018-06-05 17:27 | NUR ---
RESPIRATORY NOTE: [place] fast was changed. Revealed bilateral cheek skin breakdown and uppper lip breakdown. Secured biotain gauze over both cheeks to protect from further skin breakdown and gauze over upper lip. Placed new anchor fast. Miranda Metzger RN is aware. Will continue to monitor.
--- NOTE | 2018-06-05 17:30 | Procedure Note ---
DATE OF PROCEDURE: 06/05/2018 SURGEON: Martín Campos M.D. PROCEDURE: Upper endoscopy with biopsy and colonoscopy. ANESTHESIA: Per Dr. Pimentel. INSTRUMENT: Olympus adult flexible upper endoscope and colonoscope. REASON FOR PROCEDURE: The procedure, risks, benefits, and possible consequences, including hemorrhage, aspiration, perforation and infection, and alternative treatments, were explained to the patient/legal guardian by Dr. Martín Campos and the patient/legal guardian understood and accepted these risks. INDICATION: GI bleeding. PROCEDURE IN DETAIL: After informed consent was obtained and the patient was adequately sedated, Olympus upper endoscope was advanced from mouth into the second portion of the duodenum and retroflexion was performed in the stomach. The patient had some minimum distal esophagitis. In the stomach, there was diffuse gastritis. No obvious active bleeding in the stomach or in the esophagus. In the duodenum, at the junction between the first portion of duodenum and second portion of duodenum, there was some inflammatory changes of unknown significance. Biopsy from this area was obtained. At this time, the upper endoscope was retrieved and the patient was turned over for colonoscopy. First rectal exam was performed, which was positive for bright red blood. Then, the scope was advanced from the rectum into the anastomosis. Dr. Chandler, surgeon was present during this colonoscopy examination. There was a blood clot throughout the colon including at the anastomosis site. In the anastomosis site, there seems to be a shallow ulceration at the area but there is no active bleeding. No visible vessel and no active blood coming from the anastomosis. It seems that maybe blood is coming from the small intestine. Even when we entered the small intestine area, we could not advance the scope too much, but there was some blood in the . At this time, the scope was gradually removed. Retroflexion of rectum showed evidence of internal hemorrhoids. SUMMARY OF FINDINGS: 1. Minimum distal esophagitis. 2. Gastritis. 3. Inflammatory changes in the duodenum of unknown significance, status post biopsy. 4. Blood throughout the colon up to the anastomosis and even into the small intestine. RECOMMENDATIONS: Based on this study, it seems that the bleeding might be from the small bowel. We will recommend CT angio to locate the bleeding. At that point, if the CT angio is consistent with small bowel bleed then we might consider capsule endoscopy to see exactly where in the small intestine the patient is bleeding, or the patient might benefit from intraoperative small bowel examination. I want to thank Dr. Jain for this kind referral. Martín Campos M.D. DR: AUNG JOB#: [id number] CC: Lisa Jain M.D.; Fax#: [phone]
--- NOTE | 2018-06-05 17:43 | NUR ---
NURSE NOTES: No rectal bleeding noted. Turned and repositioned pt. Pt is lightly sedated with Fentanyl drip at 20mcg/hr. Will continue to monitor.
--- NOTE | 2018-06-05 19:11 | NUR ---
RESPIRATORY NOTE: Received pt on AC 20, Pressure Control 25, 40%, PEEP +10. Pt intubated w/ ETT 7.5 @ 24cm lipline, secured by anchorfast. Pt obtunded, sedated. B/S rosa. rhonchi/diminished. SXN scant amounts of thick, bloody secretions. Vent plugged into red outlet, ambubag at bedside. Pt in no apparent distress at this time. Will continue to monitor pt.
--- NOTE | 2018-06-05 19:40 | NUR ---
HAND-OFF: Report given to MINGO Martin.
--- NOTE | 2018-06-05 19:45 | NUR ---
NURSE NOTES: Report received from MINGO Moon. Pt is lightly sedated. Pale looking. Sinus tach HR 103 with PVC on shelter monitor. Orally intubated. ETT 7.5/24cm at lip line. AC 20, Pressure support 25, FiO2 40%, PEEP 10. O2 sat 100%. Shallow breathing noted. OGT in place collected with low intermittent suction, noted blood tinged stomach content. Dressing on abdominal surgical incision dry and intact. JPx2 is draining serosang liquid. Right femoral Donis for HD noted. Left subclavian TLC patent and asymptomatic. TPN is running at 85.4 cc/hr. On Levophed at 10mcg/min and Fentanyl drip at 20 mcg/hr. No rectal bleeding at this time. Pt received 3 units of pRBC in the morning shift. Bilateral upper extremities edema noted. Bed in lowest position. Side rails up x3. Will resume plan of care.
[2018-06-05] MEDS ORDERED: FAT EMULSION 20% IV SCH (20:00)
[2018-06-05] MEDS ORDERED: TPN IV SCH (20:00)
[2018-06-05] MEDS: Dyna-Hex 2% Top Sol 2oz TOPIC SCH (20:15)
[2018-06-05] MEDS: Nitroglycerin Patch 0.4mg TDERMAL SCH (20:19)
[2018-06-05] MEDS: Epogen (for ESRD on dialysis) SUBQ SCH (20:46)
--- NOTE | 2018-06-05 21:01 | General Progress Note ---
Assessment/Plan Assessment/Plan Assessment - hypovolemic shock, on pressors, severe anemia - GI bleed, anastomosis (? backwash of blood into small bowel) vs. small bowel - May have now stopped bleeding - no rectal bleeding noted for latter half of today - abdominal infection - s/p exlap, multi-organism culture - resp failure - on vent - renal failure - malnutrition - on TPN - Px poor Recommendation - CT mesenteric angio - serial CBC - transfuse PRN - maintain coagulation - TPN per renal - Abx per ID - vent care - HD - guarded Subjective Allergies: Coded Allergies: No Known Allergies (Unverified , 11/12/12) Subjective above noted s/p EGD / colonoscopy blood up to Ileo-TV anastomosis, and possibly proximal s/p multiple unit of blood Objective Last 24 Hour Vital Signs Date Time Temp Pulse Resp B/P (MAP) Pulse Ox O2 Delivery O2 Flow Rate FiO2 06/05/18 20:19 106/36 06/05/18 19:08 99 21 40 06/05/18 19:00 96 22 115/21 (52) 100 06/05/18 19:00 20 Mechanical Ventilator 40 06/05/18 18:30 95 22 93/34 (53) 100 06/05/18 18:00 19 Mechanical Ventilator 40 06/05/18 18:00 97 22 114/30 (58) 100 06/05/18 17:30 91 21 122/36 (64) 100 06/05/18 17:00 98.4 101 28 94/34 (54) 100 06/05/18 17:00 18 Mechanical Ventilator 40 06/05/18 17:00 99/17 06/05/18 16:32 112 20 40 06/05/18 16:30 93 23 110/24 (52) 100 06/05/18 16:00 111 20 88/33 (51) 100 06/05/18 16:00 Mechanical Ventilator Mechanical Ventilator 06/05/18 16:00 40 06/05/18 16:00 20 Mechanical Ventilator 40 06/05/18 16:00 88/33 06/05/18 15:39 105 06/05/18 15:30 111 20 99/45 (63) 100 06/05/18 15:15 111 20 90/31 (50) 100 06/05/18 15:00 20 Mechanical Ventilator 40 06/05/18 15:00 89/69 06/05/18 15:00 111 20 89/69 (76) 100 06/05/18 14:49 111 20 40 06/05/18 14:47 110 19 100 06/05/18 14:45 95 20 65/21 (36) 100 06/05/18 14:30 114 20 81/31 (48) 100 06/05/18 14:00 Mechanical Ventilator 40 06/05/18 13:00 22 Mechanical Ventilator 40 06/05/18 12:37 119 24 40 06/05/18 12:30 98.1 108 23 93/16 (41) 100 06/05/18 12:07 26 Mechanical Ventilator 40 06/05/18 12:07 119/25 06/05/18 12:00 117 26 119/25 (56) 100 06/05/18 12:00 40 06/05/18 12:00 Mechanical Ventilator Mechanical Ventilator 06/05/18 12:00 106 06/05/18 11:30 111 21 122/67 (85) 100 06/05/18 11:00 98 20 109/22 (51) 100 06/05/18 11:00 20 Mechanical Ventilator 40 06/05/18 11:00 20 Mechanical Ventilator 40 06/05/18 11:00 20 Mechanical Ventilator 40 06/05/18 11:00 20 Mechanical Ventilator 40 06/05/18 11:00 118/25 06/05/18 11:00 118/25 06/05/18 11:00 118/25 06/05/18 11:00 118/25 06/05/18 10:58 101 22 40 06/05/18 10:30 98 21 95/49 (64) 100 06/05/18 10:00 102 21 109/31 (57) 100 06/05/18 10:00 22 Mechanical Ventilator 40 06/05/18 10:00 95/49 06/05/18 09:30 104 21 102/46 (64) 100 06/05/18 09:12 96 06/05/18 09:03 20 Mechanical Ventilator 40 06/05/18 09:00 20 Mechanical Ventilator 40 06/05/18 09:00 108/55 06/05/18 09:00 94 21 108/55 (72) 100 06/05/18 08:32 87 20 40 06/05/18 08:30 92 20 79/27 (44) 100 06/05/18 08:00 Mechanical Ventilator Mechanical Ventilator 06/05/18 08:00 98.8 98 20 83/42 (56) 100 06/05/18 08:00 98 06/05/18 08:00 20 Mechanical Ventilator 40 06/05/18 08:00 83/42 06/05/18 08:00 40 06/05/18 07:45 102 20 79/27 (44) 100 06/05/18 07:30 108 25 92/67 (75) 100 06/05/18 07:15 114 27 73/45 (54) 100 06/05/18 07:00 111 25 82/38 (53) 100 06/05/18 07:00 20 Mechanical Ventilator 40 06/05/18 07:00 73/45 06/05/18 06:45 120 29 40 06/05/18 06:00 111 25 82/38 (53) 100 06/05/18 06:00 Mechanical Ventilator 40 06/05/18 06:00 82/38 06/05/18 05:42 97/50 06/05/18 05:30 112 22 105/49 (67) 100 06/05/18 05:00 22 Mechanical Ventilator 40 06/05/18 05:00 106 25 97/50 (66) 100 06/05/18 04:43 110 26 40 06/05/18 04:30 111 20 88/32 (50) 100 06/05/18 04:00 Mechanical Ventilator Mechanical Ventilator 06/05/18 04:00 110 06/05/18 04:00 99.9 107 22 114/30 (58) 100 06/05/18 04:00 22 Mechanical Ventilator 40 06/05/18 04:00 40 06/05/18 03:30 107 24 101/41 (61) 100 06/05/18 03:18 102 21 40 06/05/18 03:00 99 23 95/35 (55) 100 06/05/18 03:00 25 Mechanical Ventilator 40 06/05/18 02:30 100 21 81/22 (41) 100 06/05/18 02:00 24 Mechanical Ventilator 40 06/05/18 02:00 109 23 81/20 (40) 100 06/05/18 01:30 116 22 40 06/05/18 01:30 114 25 89/31 (50) 100 06/05/18 01:00 104 21 78/35 (49) 100 06/05/18 00:30 101 22 97/37 (57) 100 06/05/18 00:00 Mechanical Ventilator Mechanical Ventilator 06/05/18 00:00 99.3 103 24 93/35 (54) 100 06/05/18 00:00 40 06/05/18 00:00 103 06/04/18 23:30 99 25 89/29 (49) 100 06/04/18 23:17 93 21 Mechanical Ventilator 40 06/04/18 23:15 94 21 40 06/04/18 23:00 100 22 100/39 (59) 100 06/04/18 22:30 105 26 136/45 (75) 100 06/04/18 22:00 100 22 100/37 (58) 100 06/04/18 21:30 100 25 81/27 (45) 100 06/04/18 21:00 104 30 81/27 (45) 100 06/04/18 20:58 97 28 40 Intake and Output 06/04/18 06/05/18 19:00 07:00 Intake Total 2389.453 ml 3282.004 ml Output Total 495 ml 175 ml Balance 1894.453 ml 3107.004 ml IV Total 1172.453 ml 1776.004 ml Blood Product 1217 ml 1506 ml Emesis 400 ml Drainage Total 95 ml 175 ml # Bowel Movements 7 5 Laboratory Tests 06/04/18 21:00: White Blood Count 10.4, Red Blood Count 1.41L, Hemoglobin 4.1#*L, Hematocrit 12.3#L, Mean Corpuscular Volume 87, Mean Corpuscular Hemoglobin 29.3, Mean Corpuscular Hemoglobin Concent 33.6, Red Cell Distribution Width 14.0, Platelet Count 58L, Mean Platelet Volume 8.2, Neutrophils (%) (Auto) , Lymphocytes (%) ( Auto) , Monocytes (%) (Auto) , Eosinophils (%) (Auto) , Basophils (%) (Auto) , Differential Total Cells Counted 100, Neutrophils % (Manual) 92H, Lymphocytes % (Manual) 4L, Monocytes % (Manual) 2, Eosinophils % (Manual) 1, Basophils % ( Manual) 0, Band Neutrophils 1, Platelet Estimate DecreasedL, Platelet Morphology Normal, Polychromasia 1+, Hypochromasia 2+, Anisocytosis 1+, Spherocytes 1+ 06/04/18 23:50: White Blood Count 12.8H, Red Blood Count 3.09L, Hemoglobin 9.2#L, Hematocrit 27.1#L, Mean Corpuscular Volume 88, Mean Corpuscular Hemoglobin 29.9, Mean Corpuscular Hemoglobin Concent 34.1, Red Cell Distribution Width 13.0, Platelet Count 47L, Mean Platelet Volume 9.5, Neutrophils (%) (Auto) , Lymphocytes (%) ( Auto) , Monocytes (%) (Auto) , Eosinophils (%) (Auto) , Basophils (%) (Auto) , Sodium Level 147H, Potassium Level 3.3L, Chloride Level 111H, Carbon Dioxide Level 21, Anion Gap 15, Blood Urea Nitrogen 100H, Creatinine 4.1H, Estimat Glomerular Filtration Rate , Glucose Level 92, Calcium Level 7.4L, Total Bilirubin 0.4, Aspartate Amino Transf (AST/SGOT) 29, Alanine Aminotransferase ( ALT/SGPT) 12, Alkaline Phosphatase 80, Total Protein 4.1L, Albumin 1.4L, Globulin 2.7, Albumin/Globulin Ratio 0.5L 06/05/18 04:30: White Blood Count 11.9H, Red Blood Count 2.20L, Hemoglobin 6.6*L, Hematocrit 19.3L, Mean Corpuscular Volume 88, Mean Corpuscular Hemoglobin 30.2, Mean Corpuscular Hemoglobin Concent 34.5, Red Cell Distribution Width 12.9, Platelet Count 84#L, Mean Platelet Volume 6.4L, Neutrophils (%) (Auto) , Lymphocytes (%) (Auto) , Monocytes (%) (Auto) , Eosinophils (%) (Auto) , Basophils (%) (Auto) , Differential Total Cells Counted 100, Neutrophils % (Manual) 95H, Lymphocytes % (Manual) 2L, Monocytes % (Manual) 0L, Eosinophils % (Manual) 0, Basophils % ( Manual) 0, Band Neutrophils 3, Platelet Estimate DecreasedL, Platelet Morphology Normal, Hypochromasia 1+, Sodium Level 147H, Potassium Level 3.2L, Chloride Level 111H, Carbon Dioxide Level 19L, Anion Gap 17H, Blood Urea Nitrogen 105H, Creatinine 4.3H, Estimat Glomerular Filtration Rate , Glucose Level 120H, Calcium Level 7.4L, Total Bilirubin 0.4, Aspartate Amino Transf (AST /SGOT) 26, Alanine Aminotransferase (ALT/SGPT) 14, Alkaline Phosphatase 74, Total Protein 4.1L, Albumin 1.4L, Globulin 2.7, Albumin/Globulin Ratio 0.5L, Nucleated Red Blood Cells 1, Prothrombin Time 14.7H, Prothromb Time International Ratio 1.4H, Uric Acid 4.9, Phosphorus Level 6.2H, Magnesium Level 2.1, Pro-B-Type Natriuretic Peptide [id number] 06/05/18 12:30: White Blood Count 11.8H, Red Blood Count 2.97L, Hemoglobin 9.1#L, Hematocrit 26.3#L, Mean Corpuscular Volume 88, Mean Corpuscular Hemoglobin 30.7, Mean Corpuscular Hemoglobin Concent 34.8, Red Cell Distribution Width 13.1, Platelet Count 75L, Mean Platelet Volume 7.6, Neutrophils (%) (Auto) , Lymphocytes (%) ( Auto) , Monocytes (%) (Auto) , Eosinophils (%) (Auto) , Basophils (%) (Auto) , Differential Total Cells Counted 100, Neutrophils % (Manual) 90H, Lymphocytes % (Manual) 6L, Monocytes % (Manual) 3, Eosinophils % (Manual) 0, Basophils % ( Manual) 0, Band Neutrophils 1, Platelet Estimate DecreasedL, Platelet Morphology Normal, Hypochromasia 1+, Prothrombin Time 15.0H, Prothromb Time International Ratio 1.4H, Red Blood Cell Morphology , Activated Partial Thromboplast Time 36H Height (Feet): 5 Height (Inches): 5.00 Weight (Pounds): 190 Objective Intubated NCAT ETT / OGT Supple Coarse BS RR abd more flat, (+) large dressing with VELVET x 2 no edema withdrawn Lisa Jain MD Jun 05, 2018 21:01
--- NOTE | 2018-06-05 22:00 | NUR ---
NURSE NOTES: Noted about 100ml of dark red rectal discharge. DR Jain made aware, ordered CBC and PT. BP70/22, HR 119, SpO2 100, R 20. Increased Levophed to 12mcg/min. Will continue to monitor.
[2018-06-05 22:11] LABS: INR 1.5 (0.9-1.1)
[2018-06-05 22:28] LABS: HEMATOCRIT 18.6 % (42.0-52.0); MEAN CORPUSCULAR VOLUME 89 FL (80-99); PLATELET COUNT 62 K/UL (150-450); RED CELL DISTRIBUTION WIDTH 12.2 % (11.6-14.8); WHITE BLOOD COUNT 12.2 K/UL (4.8-10.8)
[2018-06-05 22:31] LABS: HEMOGLOBIN 6.5 G/DL (14.2-18.0)
--- NOTE | 2018-06-05 22:34 | General Progress Note ---
Assessment/Plan Problem List: (1) ACS (acute coronary syndrome) ICD Codes: I24.9 - Acute ischemic heart disease, unspecified SNOMED: 249175911 (2) ESRD (end stage renal disease) on dialysis ICD Codes: N18.6 - End stage renal disease; Z99.2 - Dependence on renal dialysis SNOMED: 610507562 (3) Depression ICD Codes: F32.9 - Major depressive disorder, single episode, unspecified SNOMED: 45545349 (4) Anemia ICD Codes: D64.9 - Anemia, unspecified SNOMED: 379517336 (5) Sacral decubitus ulcer, stage III ICD Codes: L89.153 - Pressure ulcer of sacral region, stage 3 SNOMED: 616053871, 291146347 (6) Major depression ICD Codes: F32.9 - Major depressive disorder, single episode, unspecified SNOMED: 225943392 (7) anxiety disorder (8) Atrial fibrillation ICD Codes: I48.91 - Unspecified atrial fibrillation SNOMED: 63934056 (9) Hypoxemia ICD Codes: R09.02 - Hypoxemia SNOMED: 325793641 (10) Hypotension ICD Codes: I95.9 - Hypotension, unspecified SNOMED: 12253894 (11) Shock ICD Codes: R57.9 - Shock, unspecified SNOMED: 14534292 (12) Elevated d-dimer ICD Codes: R79.89 - Other specified abnormal findings of blood chemistry SNOMED: 850762582 (13) encephalopathy due to metabolic factor Status: deteriorating Assessment/Plan rectal bleeding severe anemia dr marin along w dr infante attempt to stop the gi bleeding transfusion order given intubated discussed w dr marquez and dr lewis re treating anemia s/p washout of pus / multiple exploratory lap esrd on hd s/p septic shick s/p perforated viscuis after cholycestectomy in another hospital poor prognosis reviewed chart and labs Subjective ROS Limited/Unobtainable: Yes Allergies: Coded Allergies: No Known Allergies (Unverified , 11/12/12) Objective Last 24 Hour Vital Signs Date Time Temp Pulse Resp B/P (MAP) Pulse Ox O2 Delivery O2 Flow Rate FiO2 06/05/18 21:10 119 22 40 06/05/18 20:19 106/36 06/05/18 20:00 40 06/05/18 20:00 Mechanical Ventilator Mechanical Ventilator 06/05/18 19:08 99 21 40 06/05/18 19:00 96 22 115/21 (52) 100 06/05/18 19:00 20 Mechanical Ventilator 40 06/05/18 18:30 95 22 93/34 (53) 100 06/05/18 18:00 19 Mechanical Ventilator 40 06/05/18 18:00 97 22 114/30 (58) 100 06/05/18 17:30 91 21 122/36 (64) 100 06/05/18 17:00 98.4 101 28 94/34 (54) 100 06/05/18 17:00 18 Mechanical Ventilator 40 06/05/18 17:00 99/17 06/05/18 16:32 112 20 40 06/05/18 16:30 93 23 110/24 (52) 100 06/05/18 16:00 111 20 88/33 (51) 100 06/05/18 16:00 Mechanical Ventilator Mechanical Ventilator 06/05/18 16:00 40 06/05/18 16:00 20 Mechanical Ventilator 40 06/05/18 16:00 88/33 06/05/18 15:39 105 06/05/18 15:30 111 20 99/45 (63) 100 06/05/18 15:15 111 20 90/31 (50) 100 06/05/18 15:00 20 Mechanical Ventilator 40 06/05/18 15:00 89/69 06/05/18 15:00 111 20 89/69 (76) 100 06/05/18 14:49 111 20 40 06/05/18 14:47 110 19 100 06/05/18 14:45 95 20 65/21 (36) 100 06/05/18 14:30 114 20 81/31 (48) 100 06/05/18 14:00 Mechanical Ventilator 40 06/05/18 13:00 22 Mechanical Ventilator 40 06/05/18 12:37 119 24 40 06/05/18 12:30 98.1 108 23 93/16 (41) 100 06/05/18 12:07 26 Mechanical Ventilator 40 06/05/18 12:07 119/25 06/05/18 12:00 117 26 119/25 (56) 100 06/05/18 12:00 40 06/05/18 12:00 Mechanical Ventilator Mechanical Ventilator 06/05/18 12:00 106 06/05/18 11:30 111 21 122/67 (85) 100 06/05/18 11:00 98 20 109/22 (51) 100 06/05/18 11:00 20 Mechanical Ventilator 40 06/05/18 11:00 20 Mechanical Ventilator 40 06/05/18 11:00 20 Mechanical Ventilator 40 06/05/18 11:00 20 Mechanical Ventilator 40 06/05/18 11:00 118/25 06/05/18 11:00 118/25 06/05/18 11:00 118/25 06/05/18 11:00 118/25 06/05/18 10:58 101 22 40 06/05/18 10:30 98 21 95/49 (64) 100 06/05/18 10:00 102 21 109/31 (57) 100 06/05/18 10:00 22 Mechanical Ventilator 40 06/05/18 10:00 95/49 06/05/18 09:30 104 21 102/46 (64) 100 06/05/18 09:12 96 06/05/18 09:03 20 Mechanical Ventilator 40 06/05/18 09:00 20 Mechanical Ventilator 40 06/05/18 09:00 108/55 06/05/18 09:00 94 21 108/55 (72) 100 06/05/18 08:32 87 20 40 06/05/18 08:30 92 20 79/27 (44) 100 06/05/18 08:00 Mechanical Ventilator Mechanical Ventilator 06/05/18 08:00 98.8 98 20 83/42 (56) 100 06/05/18 08:00 98 06/05/18 08:00 20 Mechanical Ventilator 40 06/05/18 08:00 83/42 06/05/18 08:00 40 06/05/18 07:45 102 20 79/27 (44) 100 06/05/18 07:30 108 25 92/67 (75) 100 06/05/18 07:15 114 27 73/45 (54) 100 06/05/18 07:00 111 25 82/38 (53) 100 06/05/18 07:00 20 Mechanical Ventilator 40 06/05/18 07:00 73/45 06/05/18 06:45 120 29 40 06/05/18 06:00 111 25 82/38 (53) 100 06/05/18 06:00 Mechanical Ventilator 40 06/05/18 06:00 82/38 06/05/18 05:42 97/50 06/05/18 05:30 112 22 105/49 (67) 100 06/05/18 05:00 22 Mechanical Ventilator 40 06/05/18 05:00 106 25 97/50 (66) 100 06/05/18 04:43 110 26 40 06/05/18 04:30 111 20 88/32 (50) 100 06/05/18 04:00 Mechanical Ventilator Mechanical Ventilator 06/05/18 04:00 110 06/05/18 04:00 99.9 107 22 114/30 (58) 100 06/05/18 04:00 22 Mechanical Ventilator 40 06/05/18 04:00 40 06/05/18 03:30 107 24 101/41 (61) 100 06/05/18 03:18 102 21 40 06/05/18 03:00 99 23 95/35 (55) 100 06/05/18 03:00 25 Mechanical Ventilator 40 06/05/18 02:30 100 21 81/22 (41) 100 06/05/18 02:00 24 Mechanical Ventilator 40 06/05/18 02:00 109 23 81/20 (40) 100 06/05/18 01:30 116 22 40 06/05/18 01:30 114 25 89/31 (50) 100 06/05/18 01:00 104 21 78/35 (49) 100 06/05/18 00:30 101 22 97/37 (57) 100 06/05/18 00:00 Mechanical Ventilator Mechanical Ventilator 06/05/18 00:00 99.3 103 24 93/35 (54) 100 06/05/18 00:00 40 06/05/18 00:00 103 06/04/18 23:30 99 25 89/29 (49) 100 06/04/18 23:17 93 21 Mechanical Ventilator 40 06/04/18 23:15 94 21 40 06/04/18 23:00 100 22 100/39 (59) 100 Intake and Output 06/04/18 06/05/18 19:00 07:00 Intake Total 2389.453 ml 3282.004 ml Output Total 495 ml 175 ml Balance 1894.453 ml 3107.004 ml IV Total 1172.453 ml 1776.004 ml Blood Product 1217 ml 1506 ml Emesis 400 ml Drainage Total 95 ml 175 ml # Bowel Movements 7 5 Laboratory Tests 06/04/18 23:50: White Blood Count 12.8H, Red Blood Count 3.09L, Hemoglobin 9.2#L, Hematocrit 27.1#L, Mean Corpuscular Volume 88, Mean Corpuscular Hemoglobin 29.9, Mean Corpuscular Hemoglobin Concent 34.1, Red Cell Distribution Width 13.0, Platelet Count 47L, Mean Platelet Volume 9.5, Neutrophils (%) (Auto) , Lymphocytes (%) ( Auto) , Monocytes (%) (Auto) , Eosinophils (%) (Auto) , Basophils (%) (Auto) , Sodium Level 147H, Potassium Level 3.3L, Chloride Level 111H, Carbon Dioxide Level 21, Anion Gap 15, Blood Urea Nitrogen 100H, Creatinine 4.1H, Estimat Glomerular Filtration Rate , Glucose Level 92, Calcium Level 7.4L, Total Bilirubin 0.4, Aspartate Amino Transf (AST/SGOT) 29, Alanine Aminotransferase ( ALT/SGPT) 12, Alkaline Phosphatase 80, Total Protein 4.1L, Albumin 1.4L, Globulin 2.7, Albumin/Globulin Ratio 0.5L 06/05/18 04:30: White Blood Count 11.9H, Red Blood Count 2.20L, Hemoglobin 6.6*L, Hematocrit 19.3L, Mean Corpuscular Volume 88, Mean Corpuscular Hemoglobin 30.2, Mean Corpuscular Hemoglobin Concent 34.5, Red Cell Distribution Width 12.9, Platelet Count 84#L, Mean Platelet Volume 6.4L, Neutrophils (%) (Auto) , Lymphocytes (%) (Auto) , Monocytes (%) (Auto) , Eosinophils (%) (Auto) , Basophils (%) (Auto) , Sodium Level 147H, Potassium Level 3.2L, Chloride Level 111H, Carbon Dioxide Level 19L, Anion Gap 17H, Blood Urea Nitrogen 105H, Creatinine 4.3H, Estimat Glomerular Filtration Rate , Glucose Level 120H, Calcium Level 7.4L, Total Bilirubin 0.4, Aspartate Amino Transf (AST/SGOT) 26, Alanine Aminotransferase ( ALT/SGPT) 14, Alkaline Phosphatase 74, Total Protein 4.1L, Albumin 1.4L, Globulin 2.7, Albumin/Globulin Ratio 0.5L, Differential Total Cells Counted 100 , Neutrophils % (Manual) 95H, Lymphocytes % (Manual) 2L, Monocytes % (Manual) 0L , Eosinophils % (Manual) 0, Basophils % (Manual) 0, Band Neutrophils 3, Nucleated Red Blood Cells 1, Platelet Estimate DecreasedL, Platelet Morphology Normal, Hypochromasia 1+, Prothrombin Time 14.7H, Prothromb Time International Ratio 1.4H, Uric Acid 4.9, Phosphorus Level 6.2H, Magnesium Level 2.1, Pro-B- Type Natriuretic Peptide [id number] 06/05/18 12:30: White Blood Count 11.8H, Red Blood Count 2.97L, Hemoglobin 9.1#L, Hematocrit 26.3#L, Mean Corpuscular Volume 88, Mean Corpuscular Hemoglobin 30.7, Mean Corpuscular Hemoglobin Concent 34.8, Red Cell Distribution Width 13.1, Platelet Count 75L, Mean Platelet Volume 7.6, Neutrophils (%) (Auto) , Lymphocytes (%) ( Auto) , Monocytes (%) (Auto) , Eosinophils (%) (Auto) , Basophils (%) (Auto) , Differential Total Cells Counted 100, Neutrophils % (Manual) 90H, Lymphocytes % (Manual) 6L, Monocytes % (Manual) 3, Eosinophils % (Manual) 0, Basophils % ( Manual) 0, Band Neutrophils 1, Platelet Estimate DecreasedL, Platelet Morphology Normal, Hypochromasia 1+, Prothrombin Time 15.0H, Prothromb Time International Ratio 1.4H, Red Blood Cell Morphology , Activated Partial Thromboplast Time 36H 06/05/18 21:32: White Blood Count 12.2H, Red Blood Count 2.10L, Hemoglobin 6.5*L, Hematocrit 18.6L, Mean Corpuscular Volume 89, Mean Corpuscular Hemoglobin 31.1H, Mean Corpuscular Hemoglobin Concent 35.1, Red Cell Distribution Width 12.2, Platelet Count 62L, Mean Platelet Volume 7.8, Neutrophils (%) (Auto) , Lymphocytes (%) ( Auto) , Monocytes (%) (Auto) , Eosinophils (%) (Auto) , Basophils (%) (Auto) , Neutrophils % (Manual) [Pending], Lymphocytes % (Manual) [Pending], Platelet Estimate [Pending], Platelet Morphology [Pending], Prothrombin Time 15.7H, Prothromb Time International Ratio 1.5H Height (Feet): 5 Height (Inches): 5.00 Weight (Pounds): 190 General Appearance: lethargic, confused Samantha Head MD Jun 05, 2018 22:34
--- NOTE | 2018-06-05 22:40 | NUR ---
NURSE NOTES: Called pt Katelinorrami regarding the current CBC, PT/INR results. Ordered to 2 units PRBC and to have CT angiogram in the morning. Will continue to monitor.
[2018-06-06] VITALS (42 sets, daily range): BP systolic 28–95; BP diastolic 12–90
--- NOTE | 2018-06-06 | NUR ---
NURSE NOTES: Pt's resting in bed, in critical condition, HR131, BP72/48, T99.4, R 24, starting the 1st unit of PRBC. Levophed on max. Will continue to monitor.
[2018-06-06] MEDS: NovoLOG Insulin Flexpen SUBQ SCH ×4 (01:16→13:30)
[2018-06-06] MEDS: Norepinephrine Bitartrate 8 MG in D5W 500ml 492 ML IV SCH ×3 (01:21→14:31)
--- NOTE | 2018-06-06 02:00 | NUR ---
NURSE NOTES: Pt's resting in bed, still in critical condition, no adverse transfusion reaction observed. HR 133, BP 92/25, SpO2 100, R 23, T99.1, Levophed on max. Will continue to monitor.
--- NOTE | 2018-06-06 04:00 | NUR ---
NURSE NOTES: Pt's in bed, sedated, weaning pt off Fentanyl drip, current at 10mcg/hr. Levophed on max at 30mcg/min. Hr 127, Bp 74/22, SpO2 100%, R24. T99.1, will continue to monitor.
[2018-06-06] MEDS ORDERED: Levophed 4mg/4mL Inj IV ONE (05:03)
--- NOTE | 2018-06-06 06:00 | NUR ---
NURSE NOTES: Pt's open eyes, able to nod his head when asked. Pt's on max of Levophed. Fentanyl on hold at this time due to hypotensive. BP66/38, HR 127, SpO2 100, R 24, T99F. Will continue to monitor.
--- NOTE | 2018-06-06 06:39 | NUR ---
RESPIRATORY NOTE: Patient received mechanically ventilated on PB 840 with current ordered vent settings. Patient is orally intubated with ETT size 7.5 at 24cm at the lip line secured with an anchor fast. There is skin break down on the upper lip (mustache area), biotain was placed for extra skin protection RN is aware. Patient presents with bilateral coarse breath sounds. Thick pink secretions suctioned without incident. There is an ambu bag available the bedside and the vent is connected to a red outlet. Vent alarms are functional and audible. Will continue to monitor.
--- NOTE | 2018-06-06 07:20 | NUR ---
HAND-OFF: Report given to MINGO Barrios.
--- NOTE | 2018-06-06 08:00 | NUR ---
NURSE NOTES: Dr. Chaudhry called due to patient BP low at 65-80SBP, gave order to give phenylephrine and a bolus, will carry out orders.
[2018-06-06] MEDS: Vasopressin 100 UNITS in NS 95 ML IV SCH (08:04)
[2018-06-06 08:16] LABS: HEMATOCRIT 18.4 % (42.0-52.0); MEAN CORPUSCULAR VOLUME 91 FL (80-99); PLATELET COUNT 52 K/UL (150-450); RED BLOOD COUNT 2.02 M/UL (4.70-6.10); RED CELL DISTRIBUTION WIDTH 13.8 % (11.6-14.8); WHITE BLOOD COUNT 12.8 K/UL (4.8-10.8)
[2018-06-06 08:24] LABS: HEMOGLOBIN 6.3 G/DL (14.2-18.0)
[2018-06-06 09:24] LABS: ALBUMIN/GLOBULIN RATIO 0.5 (1.0-2.7); ALKALINE PHOSPHATASE 62 U/L (46-116); BILIRUBIN,TOTAL 0.4 MG/DL (0.2-1.0); BLOOD UREA NITROGEN 127 mg/dL (7-18); CHLORIDE 111 MMOL/L (98-107); CREATININE 4.5 MG/DL (0.55-1.30); POTASSIUM 4.1 MMOL/L (3.5-5.1); SODIUM 146 MMOL/L (136-145)
--- NOTE | 2018-06-06 09:25 | General Progress Note ---
Assessment/Plan Assessment/Plan (1) Abdominal pain (2) S/p Lap Cholecystectomy (3) Encephalopathy /septic shock (4) ESRD on hemodialysis (5) S/p emergent exploratory laboratory small bowel resection omentectomy due to small bowel perforation in distal ileum (6) Sacral decubitus ulcer Patient to be continued on Dilaudid and Tylenol. Parameters to be continued. D/w Dr. Busby and he concurred. Subjective Date patient seen: Jun 06, 2018 Time patient seen: 07:15 - am ROS Limited/Unobtainable: Yes Allergies: Coded Allergies: No Known Allergies (Unverified , 11/12/12) Subjective Patient is in bed intubated on vent. Nurse placed Fentanyl drip on hold due to hypotension. No Dilaudid given in the last 24hrs. Objective Last 24 Hour Vital Signs Date Time Temp Pulse Resp B/P (MAP) Pulse Ox O2 Delivery O2 Flow Rate FiO2 06/06/18 08:32 153 27 40 06/06/18 08:00 40 06/06/18 08:00 99.0 133 24 75/40 (52) 100 06/06/18 07:00 99.0 124 24 81/45 (57) 100 06/06/18 07:00 81/45 06/06/18 06:31 130 26 40 06/06/18 06:30 134 24 81/43 (56) 100 06/06/18 06:02 95/53 06/06/18 06:00 90/35 06/06/18 06:00 131 24 90/35 (53) 100 06/06/18 05:30 131 26 63/22 (36) 100 06/06/18 05:11 128 23 40 06/06/18 05:00 89/27 06/06/18 05:00 128 23 89/27 (47) 100 06/06/18 04:30 123 23 88/21 (43) 100 06/06/18 04:00 Mechanical Ventilator Mechanical Ventilator 06/06/18 04:00 129 06/06/18 04:00 128 23 74/22 (39) 100 06/06/18 04:00 24 Mechanical Ventilator 40 06/06/18 04:00 72/19 06/06/18 04:00 40 06/06/18 03:30 112 22 75/22 (39) 100 06/06/18 03:00 115 22 75/25 (42) 100 06/06/18 03:00 24 Mechanical Ventilator 40 06/06/18 03:00 75/25 06/06/18 02:53 130 24 40 06/06/18 02:30 120 24 72/29 (43) 100 06/06/18 02:00 21 Mechanical Ventilator 40 06/06/18 02:00 92/25 06/06/18 02:00 120 22 92/25 (47) 100 06/06/18 01:45 134 22 76/44 (55) 100 06/06/18 01:30 135 22 69/22 (38) 100 06/06/18 01:21 70/29 06/06/18 01:15 137 22 71/55 (60) 100 06/06/18 01:12 133 23 40 06/06/18 01:00 135 22 48/39 (42) 100 06/06/18 01:00 24 Mechanical Ventilator 40 06/06/18 01:00 48/39 06/06/18 00:45 131 22 78/14 (35) 100 06/06/18 00:30 132 22 84/41 (55) 100 06/06/18 00:00 133 22 72/48 (56) 100 06/06/18 00:00 Mechanical Ventilator Mechanical Ventilator 06/06/18 00:00 25 Mechanical Ventilator 40 06/06/18 00:00 72/48 06/06/18 00:00 118 06/05/18 23:30 82/40 06/05/18 23:30 123 22 82/40 (54) 100 06/05/18 23:15 78/12 06/05/18 23:00 24 Mechanical Ventilator 40 06/05/18 23:00 76/22 06/05/18 23:00 127 22 76/22 (40) 100 06/05/18 22:57 124 23 40 06/05/18 22:45 85/24 06/05/18 22:30 123 22 100/20 (46) 100 06/05/18 22:30 100/20 06/05/18 22:15 77/23 06/05/18 22:00 123 22 70/22 (38) 100 06/05/18 22:00 20 Mechanical Ventilator 40 06/05/18 22:00 70/22 06/05/18 21:30 123 22 89/31 (50) 100 06/05/18 21:10 119 22 40 06/05/18 21:00 122 22 88/21 (43) 100 06/05/18 21:00 21 Mechanical Ventilator 40 06/05/18 21:00 88/21 06/05/18 20:30 118 22 93/12 (39) 100 06/05/18 20:19 106/36 06/05/18 20:00 40 06/05/18 20:00 24 Mechanical Ventilator 40 06/05/18 20:00 106/36 06/05/18 20:00 103 06/05/18 20:00 111 22 106/36 (59) 100 06/05/18 20:00 Mechanical Ventilator Mechanical Ventilator 06/05/18 19:30 103 22 127/30 (62) 100 06/05/18 19:08 99 21 40 06/05/18 19:00 96 22 115/21 (52) 100 06/05/18 19:00 20 Mechanical Ventilator 40 06/05/18 18:30 95 22 93/34 (53) 100 06/05/18 18:00 19 Mechanical Ventilator 40 06/05/18 18:00 97 22 114/30 (58) 100 06/05/18 17:30 91 21 122/36 (64) 100 06/05/18 17:00 98.4 101 28 94/34 (54) 100 06/05/18 17:00 18 Mechanical Ventilator 40 06/05/18 17:00 99/17 06/05/18 16:32 112 20 40 06/05/18 16:30 93 23 110/24 (52) 100 06/05/18 16:00 111 20 88/33 (51) 100 06/05/18 16:00 Mechanical Ventilator Mechanical Ventilator 06/05/18 16:00 40 06/05/18 16:00 20 Mechanical Ventilator 40 06/05/18 16:00 88/33 06/05/18 15:39 105 06/05/18 15:30 111 20 99/45 (63) 100 06/05/18 15:15 111 20 90/31 (50) 100 06/05/18 15:00 20 Mechanical Ventilator 40 06/05/18 15:00 89/69 06/05/18 15:00 111 20 89/69 (76) 100 06/05/18 14:49 111 20 40 06/05/18 14:47 110 19 100 06/05/18 14:45 95 20 65/21 (36) 100 06/05/18 14:30 114 20 81/31 (48) 100 06/05/18 14:00 Mechanical Ventilator 40 06/05/18 13:00 22 Mechanical Ventilator 40 06/05/18 12:37 119 24 40 06/05/18 12:30 98.1 108 23 93/16 (41) 100 06/05/18 12:07 26 Mechanical Ventilator 40 06/05/18 12:07 119/25 06/05/18 12:00 117 26 119/25 (56) 100 06/05/18 12:00 40 06/05/18 12:00 Mechanical Ventilator Mechanical Ventilator 06/05/18 12:00 106 06/05/18 11:30 111 21 122/67 (85) 100 06/05/18 11:00 98 20 109/22 (51) 100 06/05/18 11:00 20 Mechanical Ventilator 40 06/05/18 11:00 20 Mechanical Ventilator 40 06/05/18 11:00 20 Mechanical Ventilator 40 06/05/18 11:00 20 Mechanical Ventilator 40 06/05/18 11:00 118/25 06/05/18 11:00 118/25 06/05/18 11:00 118/25 06/05/18 11:00 118/25 06/05/18 10:58 101 22 40 06/05/18 10:30 98 21 95/49 (64) 100 06/05/18 10:00 102 21 109/31 (57) 100 06/05/18 10:00 22 Mechanical Ventilator 40 06/05/18 10:00 95/49 06/05/18 09:30 104 21 102/46 (64) 100 Intake and Output 06/05/18 06/06/18 18:59 06:59 Intake Total 2369.961 ml 2625.129 ml Output Total 370 ml 480 ml Balance 1999.961 ml 2145.129 ml IV Total 1619.961 ml 2075.129 ml Blood Product 750 ml 550 ml Stool Total 200 ml Emesis 30 ml Drainage Total 340 ml 280 ml # Bowel Movements 2 4 Height (Feet): 5 Height (Inches): 5.00 Weight (Pounds): 190 Objective GENERAL: Intubated. LUNGS: Decreased breath sounds bilaterally. HEART: S1 S2 tachy. ABDOMEN: Bandages applied. EXTREMITIES: No cyanosis. No clubbing. Sacral decubitus ulcer. Sid Holland Jun 06, 2018 09:25
[2018-06-06] MEDS: Pantoprazole Inj IVP SCH (09:27)
[2018-06-06] MEDS: Hydrocortisone 100mg Inj IV SCH (09:27)
[2018-06-06] MEDS ORDERED: Phenylephrine 50 MG in D5W 245 ML IV SCH (09:30)
[2018-06-06] MEDS: Levemir Flexpen SUBQ SCH (09:40)
[2018-06-06 09:46] LABS: ALANINE AMINOTRANSFERASE 11 U/L (12-78); ANION GAP 21 mmol/L (5-15); ASPARTATE AMINO TRANSFERASE 24 U/L (15-37); CALCIUM 6.9 MG/DL (8.5-10.1); CARBON DIOXIDE 14 MMOL/L (21-32); PHOSPHORUS 7.8 MG/DL (2.5-4.9)
--- NOTE | 2018-06-06 10:25 | NUR ---
NURSE NOTES: Dr. Jain at the bedside, and made aware of patient condition, told we would attempt to take to Ct scan once BP is more stable since patient is on vasopressors, also placed additional orders.
--- NOTE | 2018-06-06 10:52 | General Progress Note ---
Assessment/Plan Assessment/Plan Assessment - hypovolemic shock due to GIB of uncertain origin, on pressors, severe anemia - currently Moribund, not expected to survive the day - not stable for CT at this time - abdominal infection - s/p exlap, multi-organism culture - resp failure - on vent - renal failure - malnutrition - on TPN - Px poor Recommendation - CT mesenteric angio if able to stablize with transfusion - serial CBC - transfuse x 2 now - terminal Px at this point - maintain coagulation - TPN per renal - Abx per ID - vent care - HD - guarded Subjective Allergies: Coded Allergies: No Known Allergies (Unverified , 11/12/12) Subjective above noted doing worse today now in trendelenberg, hypotensive, tachycardic, on triple pressors H&H low despite multiple transfusions not stable for CT transport Objective Last 24 Hour Vital Signs Date Time Temp Pulse Resp B/P (MAP) Pulse Ox O2 Delivery O2 Flow Rate FiO2 06/06/18 10:38 155 26 40 06/06/18 09:37 145 70/40 06/06/18 08:32 153 27 40 06/06/18 08:00 40 06/06/18 08:00 99.0 133 24 75/40 (52) 100 06/06/18 07:00 99.0 124 24 81/45 (57) 100 06/06/18 07:00 81/45 06/06/18 06:31 130 26 40 06/06/18 06:30 134 24 81/43 (56) 100 06/06/18 06:02 95/53 06/06/18 06:00 90/35 06/06/18 06:00 131 24 90/35 (53) 100 06/06/18 05:30 131 26 63/22 (36) 100 06/06/18 05:11 128 23 40 06/06/18 05:00 89/27 06/06/18 05:00 128 23 89/27 (47) 100 06/06/18 04:30 123 23 88/21 (43) 100 06/06/18 04:00 Mechanical Ventilator Mechanical Ventilator 06/06/18 04:00 129 06/06/18 04:00 128 23 74/22 (39) 100 06/06/18 04:00 24 Mechanical Ventilator 40 06/06/18 04:00 72/19 06/06/18 04:00 40 06/06/18 03:30 112 22 75/22 (39) 100 06/06/18 03:00 115 22 75/25 (42) 100 06/06/18 03:00 24 Mechanical Ventilator 40 06/06/18 03:00 75/25 06/06/18 02:53 130 24 40 06/06/18 02:30 120 24 72/29 (43) 100 06/06/18 02:00 21 Mechanical Ventilator 40 06/06/18 02:00 92/25 06/06/18 02:00 120 22 92/25 (47) 100 06/06/18 01:45 134 22 76/44 (55) 100 06/06/18 01:30 135 22 69/22 (38) 100 06/06/18 01:21 70/29 06/06/18 01:15 137 22 71/55 (60) 100 06/06/18 01:12 133 23 40 06/06/18 01:00 135 22 48/39 (42) 100 06/06/18 01:00 24 Mechanical Ventilator 40 06/06/18 01:00 48/39 06/06/18 00:45 131 22 78/14 (35) 100 06/06/18 00:30 132 22 84/41 (55) 100 06/06/18 00:00 133 22 72/48 (56) 100 06/06/18 00:00 Mechanical Ventilator Mechanical Ventilator 06/06/18 00:00 25 Mechanical Ventilator 40 06/06/18 00:00 72/48 06/06/18 00:00 118 06/05/18 23:30 82/40 06/05/18 23:30 123 22 82/40 (54) 100 06/05/18 23:15 78/12 06/05/18 23:00 24 Mechanical Ventilator 40 06/05/18 23:00 76/22 06/05/18 23:00 127 22 76/22 (40) 100 06/05/18 22:57 124 23 40 06/05/18 22:45 85/24 06/05/18 22:30 123 22 100/20 (46) 100 06/05/18 22:30 100/20 06/05/18 22:15 77/23 06/05/18 22:00 123 22 70/22 (38) 100 06/05/18 22:00 20 Mechanical Ventilator 40 06/05/18 22:00 70/22 06/05/18 21:30 123 22 89/31 (50) 100 06/05/18 21:10 119 22 40 06/05/18 21:00 122 22 88/21 (43) 100 06/05/18 21:00 21 Mechanical Ventilator 40 06/05/18 21:00 88/21 06/05/18 20:30 118 22 93/12 (39) 100 06/05/18 20:19 106/36 06/05/18 20:00 40 06/05/18 20:00 24 Mechanical Ventilator 40 06/05/18 20:00 106/36 06/05/18 20:00 103 06/05/18 20:00 111 22 106/36 (59) 100 06/05/18 20:00 Mechanical Ventilator Mechanical Ventilator 06/05/18 19:30 103 22 127/30 (62) 100 06/05/18 19:08 99 21 40 06/05/18 19:00 96 22 115/21 (52) 100 06/05/18 19:00 20 Mechanical Ventilator 40 06/05/18 18:30 95 22 93/34 (53) 100 06/05/18 18:00 19 Mechanical Ventilator 40 06/05/18 18:00 97 22 114/30 (58) 100 06/05/18 17:30 91 21 122/36 (64) 100 06/05/18 17:00 98.4 101 28 94/34 (54) 100 06/05/18 17:00 18 Mechanical Ventilator 40 06/05/18 17:00 99/17 06/05/18 16:32 112 20 40 06/05/18 16:30 93 23 110/24 (52) 100 06/05/18 16:00 111 20 88/33 (51) 100 06/05/18 16:00 Mechanical Ventilator Mechanical Ventilator 06/05/18 16:00 40 06/05/18 16:00 20 Mechanical Ventilator 40 06/05/18 16:00 88/33 06/05/18 15:39 105 06/05/18 15:30 111 20 99/45 (63) 100 06/05/18 15:15 111 20 90/31 (50) 100 06/05/18 15:00 20 Mechanical Ventilator 40 06/05/18 15:00 89/69 06/05/18 15:00 111 20 89/69 (76) 100 06/05/18 14:49 111 20 40 06/05/18 14:47 110 19 100 06/05/18 14:45 95 20 65/21 (36) 100 06/05/18 14:30 114 20 81/31 (48) 100 06/05/18 14:00 Mechanical Ventilator 40 06/05/18 13:00 22 Mechanical Ventilator 40 06/05/18 12:37 119 24 40 06/05/18 12:30 98.1 108 23 93/16 (41) 100 06/05/18 12:07 26 Mechanical Ventilator 40 06/05/18 12:07 119/25 06/05/18 12:00 117 26 119/25 (56) 100 06/05/18 12:00 40 06/05/18 12:00 Mechanical Ventilator Mechanical Ventilator 06/05/18 12:00 106 06/05/18 11:30 111 21 122/67 (85) 100 06/05/18 11:00 98 20 109/22 (51) 100 06/05/18 11:00 20 Mechanical Ventilator 40 06/05/18 11:00 20 Mechanical Ventilator 40 06/05/18 11:00 20 Mechanical Ventilator 40 06/05/18 11:00 20 Mechanical Ventilator 40 06/05/18 11:00 118/25 06/05/18 11:00 118/25 06/05/18 11:00 118/25 06/05/18 11:00 118/25 06/05/18 10:58 101 22 40 Intake and Output 06/05/18 06/06/18 18:59 06:59 Intake Total 2369.961 ml 2625.129 ml Output Total 370 ml 480 ml Balance 1999.961 ml 2145.129 ml IV Total 1619.961 ml 2075.129 ml Blood Product 750 ml 550 ml Stool Total 200 ml Emesis 30 ml Drainage Total 340 ml 280 ml # Bowel Movements 2 4 Laboratory Tests 06/05/18 12:30: White Blood Count 11.8H, Red Blood Count 2.97L, Hemoglobin 9.1#L, Hematocrit 26.3#L, Mean Corpuscular Volume 88, Mean Corpuscular Hemoglobin 30.7, Mean Corpuscular Hemoglobin Concent 34.8, Red Cell Distribution Width 13.1, Platelet Count 75L, Mean Platelet Volume 7.6, Neutrophils (%) (Auto) , Lymphocytes (%) ( Auto) , Monocytes (%) (Auto) , Eosinophils (%) (Auto) , Basophils (%) (Auto) , Differential Total Cells Counted 100, Neutrophils % (Manual) 90H, Lymphocytes % (Manual) 6L, Monocytes % (Manual) 3, Eosinophils % (Manual) 0, Basophils % ( Manual) 0, Band Neutrophils 1, Platelet Estimate DecreasedL, Platelet Morphology Normal, Red Blood Cell Morphology , Hypochromasia 1+, Prothrombin Time 15.0H, Prothromb Time International Ratio 1.4H, Activated Partial Thromboplast Time 36H 06/05/18 21:32: White Blood Count 12.2H, Red Blood Count 2.10L, Hemoglobin 6.5*L, Hematocrit 18.6L, Mean Corpuscular Volume 89, Mean Corpuscular Hemoglobin 31.1H, Mean Corpuscular Hemoglobin Concent 35.1, Red Cell Distribution Width 12.2, Platelet Count 62L, Mean Platelet Volume 7.8, Neutrophils (%) (Auto) , Lymphocytes (%) ( Auto) , Monocytes (%) (Auto) , Eosinophils (%) (Auto) , Basophils (%) (Auto) , Differential Total Cells Counted 100, Neutrophils % (Manual) 88H, Lymphocytes % (Manual) 4L, Monocytes % (Manual) 3, Eosinophils % (Manual) 1, Basophils % ( Manual) 1, Band Neutrophils 3, Platelet Estimate DecreasedL, Platelet Morphology Normal, Hypochromasia 2+, Prothrombin Time 15.7H, Prothromb Time International Ratio 1.5H, Anisocytosis 2+ 06/06/18 07:40: White Blood Count 12.8H, Red Blood Count 2.02L, Hemoglobin 6.3*L, Hematocrit 18.4L, Mean Corpuscular Volume 91, Mean Corpuscular Hemoglobin 31.3H, Mean Corpuscular Hemoglobin Concent 34.3, Red Cell Distribution Width 13.8, Platelet Count 52L, Mean Platelet Volume 9.5, Neutrophils (%) (Auto) , Lymphocytes (%) ( Auto) , Monocytes (%) (Auto) , Eosinophils (%) (Auto) , Basophils (%) (Auto) , Neutrophils % (Manual) [Pending], Lymphocytes % (Manual) [Pending], Platelet Estimate [Pending], Platelet Morphology [Pending], Prothrombin Time 20.8H, Prothromb Time International Ratio 2.0H, Sodium Level 146H, Potassium Level 4.1 , Chloride Level 111H, Carbon Dioxide Level 14L, Anion Gap 21H, Blood Urea Nitrogen 127H, Creatinine 4.5H, Estimat Glomerular Filtration Rate , Glucose Level 316#H, Uric Acid 6.5, Calcium Level 6.9L, Phosphorus Level 7.8H, Magnesium Level 1.8, Total Bilirubin 0.4, Aspartate Amino Transf (AST/SGOT) 24, Alanine Aminotransferase (ALT/SGPT) 11L, Alkaline Phosphatase 62, Troponin I 0.477H, C-Reactive Protein, Quantitative 4.3H, Pro-B-Type Natriuretic Peptide [id number], Total Protein 2.9L, Albumin 1.0L, Globulin 1.9, Albumin/Globulin Ratio 0.5L Height (Feet): 5 Height (Inches): 5.00 Weight (Pounds): 190 Objective Intubated, pale, obtunded NCAT ETT / OGT Supple Coarse BS RR abd more flat, (+) large dressing with VELVET x 2 (+) edema Lisa Jain MD Jun 06, 2018 10:52
--- NOTE | 2018-06-06 11:07 | Infectious Diseases Prog Note ---
Assessment/Plan Assessment/Plan A: 1. serratia , Enterobacter sepsis with shock 2. VRE colonization 3. diabetes mellitus 4. hypertension 5. 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 leucocytosis 6. A fib with RVR 7. Small bowel perforation 8. Perioperative respiratory failure 9. Atelectasis versus Pneumonia 10 Peritonitis with Citrobacter & Serratia 11. sepsis, 12. Lactic acidosis 13. Anemia 14. s/p hemicolectomy 15.GI bleeding 16. shock P 1. continue Cefepime , Flagyl , Levaquin & Fluconazole 2.Continue TPN 3. Very poor prognosis Subjective ROS Limited/Unobtainable: Yes Cardiovascular: Reports: other - in shock on maximal dose of pressors Gastrointestinal/Abdominal: Reports: blood in stool, other - had colonoscopy & EGD yesterday Allergies: Coded Allergies: No Known Allergies (Unverified , 11/12/12) Objective Vital Signs Last 24 Hour Vital Signs Date Time Temp Pulse Resp B/P (MAP) Pulse Ox O2 Delivery O2 Flow Rate FiO2 06/06/18 10:38 155 26 40 06/06/18 09:37 145 70/40 06/06/18 08:32 153 27 40 06/06/18 08:00 40 06/06/18 08:00 99.0 133 24 75/40 (52) 100 06/06/18 07:00 99.0 124 24 81/45 (57) 100 06/06/18 07:00 81/45 06/06/18 06:31 130 26 40 06/06/18 06:30 134 24 81/43 (56) 100 06/06/18 06:02 95/53 06/06/18 06:00 90/35 06/06/18 06:00 131 24 90/35 (53) 100 06/06/18 05:30 131 26 63/22 (36) 100 06/06/18 05:11 128 23 40 06/06/18 05:00 89/27 06/06/18 05:00 128 23 89/27 (47) 100 06/06/18 04:30 123 23 88/21 (43) 100 06/06/18 04:00 Mechanical Ventilator Mechanical Ventilator 06/06/18 04:00 129 06/06/18 04:00 128 23 74/22 (39) 100 06/06/18 04:00 24 Mechanical Ventilator 40 06/06/18 04:00 72/19 06/06/18 04:00 40 06/06/18 03:30 112 22 75/22 (39) 100 06/06/18 03:00 115 22 75/25 (42) 100 06/06/18 03:00 24 Mechanical Ventilator 40 06/06/18 03:00 75/25 06/06/18 02:53 130 24 40 06/06/18 02:30 120 24 72/29 (43) 100 06/06/18 02:00 21 Mechanical Ventilator 40 06/06/18 02:00 92/25 06/06/18 02:00 120 22 92/25 (47) 100 06/06/18 01:45 134 22 76/44 (55) 100 06/06/18 01:30 135 22 69/22 (38) 100 06/06/18 01:21 70/29 06/06/18 01:15 137 22 71/55 (60) 100 06/06/18 01:12 133 23 40 06/06/18 01:00 135 22 48/39 (42) 100 06/06/18 01:00 24 Mechanical Ventilator 40 06/06/18 01:00 48/39 06/06/18 00:45 131 22 78/14 (35) 100 06/06/18 00:30 132 22 84/41 (55) 100 06/06/18 00:00 133 22 72/48 (56) 100 06/06/18 00:00 Mechanical Ventilator Mechanical Ventilator 06/06/18 00:00 25 Mechanical Ventilator 40 06/06/18 00:00 72/48 06/06/18 00:00 118 06/05/18 23:30 82/40 06/05/18 23:30 123 22 82/40 (54) 100 06/05/18 23:15 78/12 06/05/18 23:00 24 Mechanical Ventilator 40 06/05/18 23:00 76/22 06/05/18 23:00 127 22 76/22 (40) 100 06/05/18 22:57 124 23 40 06/05/18 22:45 85/24 06/05/18 22:30 123 22 100/20 (46) 100 06/05/18 22:30 100/20 06/05/18 22:15 77/23 06/05/18 22:00 123 22 70/22 (38) 100 06/05/18 22:00 20 Mechanical Ventilator 40 06/05/18 22:00 70/22 06/05/18 21:30 123 22 89/31 (50) 100 06/05/18 21:10 119 22 40 06/05/18 21:00 122 22 88/21 (43) 100 06/05/18 21:00 21 Mechanical Ventilator 40 06/05/18 21:00 88/21 06/05/18 20:30 118 22 93/12 (39) 100 06/05/18 20:19 106/36 06/05/18 20:00 40 06/05/18 20:00 24 Mechanical Ventilator 40 06/05/18 20:00 106/36 06/05/18 20:00 103 06/05/18 20:00 111 22 106/36 (59) 100 06/05/18 20:00 Mechanical Ventilator Mechanical Ventilator 06/05/18 19:30 103 22 127/30 (62) 100 06/05/18 19:08 99 21 40 06/05/18 19:00 96 22 115/21 (52) 100 06/05/18 19:00 20 Mechanical Ventilator 40 06/05/18 18:30 95 22 93/34 (53) 100 06/05/18 18:00 19 Mechanical Ventilator 40 06/05/18 18:00 97 22 114/30 (58) 100 06/05/18 17:30 91 21 122/36 (64) 100 06/05/18 17:00 98.4 101 28 94/34 (54) 100 06/05/18 17:00 18 Mechanical Ventilator 40 06/05/18 17:00 99/17 06/05/18 16:32 112 20 40 06/05/18 16:30 93 23 110/24 (52) 100 06/05/18 16:00 111 20 88/33 (51) 100 06/05/18 16:00 Mechanical Ventilator Mechanical Ventilator 06/05/18 16:00 40 06/05/18 16:00 20 Mechanical Ventilator 40 06/05/18 16:00 88/33 06/05/18 15:39 105 06/05/18 15:30 111 20 99/45 (63) 100 06/05/18 15:15 111 20 90/31 (50) 100 06/05/18 15:00 20 Mechanical Ventilator 40 06/05/18 15:00 89/69 06/05/18 15:00 111 20 89/69 (76) 100 06/05/18 14:49 111 20 40 06/05/18 14:47 110 19 100 06/05/18 14:45 95 20 65/21 (36) 100 06/05/18 14:30 114 20 81/31 (48) 100 06/05/18 14:00 Mechanical Ventilator 40 06/05/18 13:00 22 Mechanical Ventilator 40 06/05/18 12:37 119 24 40 06/05/18 12:30 98.1 108 23 93/16 (41) 100 06/05/18 12:07 26 Mechanical Ventilator 40 06/05/18 12:07 119/25 06/05/18 12:00 117 26 119/25 (56) 100 06/05/18 12:00 40 06/05/18 12:00 Mechanical Ventilator Mechanical Ventilator 06/05/18 12:00 106 06/05/18 11:30 111 21 122/67 (85) 100 Height (Feet): 5 Height (Inches): 5.00 Weight (Pounds): 190 General Appearance: other - critically ill HEENT: other - orally intubated, facial edema Cardiovascular: tachycardia, other - left IJ central line Abdomen: other - rectal bleeding, drains 7 Dressing Extremities: other - generalized edema Neurologic/Psychiatric: unresponsiveness Laboratory Tests Test 06/05/18 12:30 06/05/18 21:32 06/06/18 07:40 White Blood Count 11.8 K/UL (4.8-10.8) H 12.2 K/UL (4.8-10.8) H 12.8 K/UL (4.8-10.8) H Red Blood Count 2.97 M/UL (4.70-6.10) L 2.10 M/UL (4.70-6.10) L 2.02 M/UL (4.70-6.10) L Hemoglobin 9.1 G/DL (14.2-18.0) #L 6.5 G/DL (14.2-18.0) *L 6.3 G/DL (14.2-18.0) *L Hematocrit 26.3 % (42.0-52.0) #L 18.6 % (42.0-52.0) L 18.4 % (42.0-52.0) L Mean Corpuscular Volume 88 FL (80-99) 89 FL (80-99) 91 FL (80-99) Mean Corpuscular Hemoglobin 30.7 PG (27.0-31.0) 31.1 PG (27.0-31.0) H 31.3 PG (27.0-31.0) H Mean Corpuscular Hemoglobin Concent 34.8 G/DL (32.0-36.0) 35.1 G/DL (32.0-36.0) 34.3 G/DL (32.0-36.0) Red Cell Distribution Width 13.1 % (11.6-14.8) 12.2 % (11.6-14.8) 13.8 % (11.6-14.8) Platelet Count 75 K/UL (150-450) L 62 K/UL (150-450) L 52 K/UL (150-450) L Mean Platelet Volume 7.6 FL (6.5-10.1) 7.8 FL (6.5-10.1) 9.5 FL (6.5-10.1) Neutrophils (%) (Auto) % (45.0-75.0) % (45.0-75.0) % (45.0-75.0) Lymphocytes (%) (Auto) % (20.0-45.0) % (20.0-45.0) % (20.0-45.0) Monocytes (%) (Auto) % (1.0-10.0) % (1.0-10.0) % (1.0-10.0) Eosinophils (%) (Auto) % (0.0-3.0) % (0.0-3.0) % (0.0-3.0) Basophils (%) (Auto) % (0.0-2.0) % (0.0-2.0) % (0.0-2.0) Differential Total Cells Counted 100 100 Neutrophils % (Manual) 90 % (45-75) H 88 % (45-75) H Pending Lymphocytes % (Manual) 6 % (20-45) L 4 % (20-45) L Pending Monocytes % (Manual) 3 % (1-10) 3 % (1-10) Eosinophils % (Manual) 0 % (0-3) 1 % (0-3) Basophils % (Manual) 0 % (0-2) 1 % (0-2) Band Neutrophils 1 % (0-8) 3 % (0-8) Platelet Estimate Decreased L Decreased L Pending Platelet Morphology Normal Normal Pending Red Blood Cell Morphology Hypochromasia 1+ 2+ Prothrombin Time 15.0 SEC (9.30-11.50) H 15.7 SEC (9.30-11.50) H 20.8 SEC (9.30-11.50) H Prothromb Time International Ratio 1.4 (0.9-1.1) H 1.5 (0.9-1.1) H 2.0 (0.9-1.1) H Activated Partial Thromboplast Time 36 SEC (23-33) H Anisocytosis 2+ Sodium Level 146 MMOL/L (136-145) H Potassium Level 4.1 MMOL/L (3.5-5.1) Chloride Level 111 MMOL/L (98-107) H Carbon Dioxide Level 14 MMOL/L (21-32) L Anion Gap 21 mmol/L (5-15) H Blood Urea Nitrogen 127 mg/dL (7-18) H Creatinine 4.5 MG/DL (0.55-1.30) H Estimat Glomerular Filtration Rate mL/min (>60) Glucose Level 316 MG/DL (74-106) #H Uric Acid 6.5 MG/DL (2.6-7.2) Calcium Level 6.9 MG/DL (8.5-10.1) L Phosphorus Level 7.8 MG/DL (2.5-4.9) H Magnesium Level 1.8 MG/DL (1.8-2.4) Total Bilirubin 0.4 MG/DL (0.2-1.0) Aspartate Amino Transf (AST/SGOT) 24 U/L (15-37) Alanine Aminotransferase (ALT/SGPT) 11 U/L (12-78) L Alkaline Phosphatase 62 U/L (46-116) Troponin I 0.477 ng/mL (0.000-0.056) C-Reactive Protein, Quantitative 4.3 mg/dL (0.00-0.90) H Pro-B-Type Natriuretic Peptide 15392 pg/mL (0-125) H Total Protein 2.9 G/DL (6.4-8.2) L Albumin 1.0 G/DL (3.4-5.0) L Globulin 1.9 g/dL Albumin/Globulin Ratio 0.5 (1.0-2.7) L Current Medications Medications (Trade) Dose Ordered Sig/Min Route PRN Reason Start Time Stop Time Status Last Admin Dose Admin Acetaminophen (Tylenol) 650 mg Q4H PRN RECTAL Mild Pain/Temp > 100.5 05/21/18 12:00 06/20/18 11:59 Cefepime HCl 2 gm/ Dextrose 55 ml @ 110 mls/hr Q24H IVPB 05/25/18 13:00 06/11/18 12:59 06/05/18 12:07 Chlorhexidine Gluconate (Tatyana-Hex 2%) 1 applic DAILY@2000 TOPIC 05/12/18 20:00 06/11/18 19:59 06/05/18 20:15 Dextrose 1,000 ml @ 0 mls/hr Q24H PRN IV PN interrupted or unavailable 05/25/18 21:00 06/24/18 20:59 Dextrose (Dextrose 50%) 25 ml Q30M PRN IV Hypoglycemia 05/26/18 12:45 06/25/18 12:44 Dextrose (Dextrose 50%) 50 ml Q30M PRN IV Hypoglycemia 05/26/18 12:45 06/25/18 12:44 05/31/18 21:12 Digoxin (Lanoxin) 0.125 mg 3XW IVP 06/03/18 09:00 07/03/18 08:59 06/05/18 09:12 Epoetin Bret (Procrit (for ESRD on dialysis)) 10,000 units SUN-SUN-SUN SUBQ 06/03/18 21:00 06/30/18 20:59 06/05/18 20:46 Fat Emulsion Intravenous 250 ml/Amino Acids/ Electrolytes/ Dextrose 2,050 ml @ 85.417 mls/ hr Q24H IV 06/05/18 20:00 07/05/18 19:59 06/05/18 20:15 Fentanyl Citrate 1000 mcg/Sodium Chloride 100 ml @ 0 mls/hr Q24H IV 06/04/18 19:30 06/11/18 19:29 06/05/18 09:03 Fluconazole/ Sodium Chloride 100 ml @ 100 mls/hr Q24H IV 05/28/18 18:00 06/10/18 17:59 06/05/18 17:29 Hydrocortisone (Solu-CORTEF) 12.5 mg Q12HR IV 06/03/18 21:00 07/01/18 20:59 06/06/18 09:27 Insulin Aspart (NovoLOG) EVERY 4 HOURS SUBQ 05/24/18 17:00 06/15/18 20:59 06/06/18 09:39 Insulin Detemir (Levemir) 12 units Q12HR SUBQ 06/05/18 09:00 06/23/18 17:59 06/06/18 09:40 Levofloxacin 50 ml @ 50 mls/hr Q24H IVPB 05/25/18 13:00 06/11/18 12:59 06/05/18 12:07 Metronidazole 100 ml @ 100 mls/hr Q8HR IVPB 05/25/18 14:00 06/11/18 13:59 06/06/18 06:00 Nitroglycerin (Ntg) 1 patch Q24H TDERMAL 05/29/18 20:00 06/28/18 19:59 06/05/18 20:19 Norepinephrine Bitartrate 8 mg/ Dextrose 500 ml @ 0 mls/hr Q24H IV 05/21/18 14:30 06/20/18 14:29 06/06/18 06:02 Ondansetron HCl (Zofran) 4 mg Q6H PRN IVP Nausea & Vomiting 05/15/18 23:30 06/14/18 23:29 Pantoprazole (Protonix) 40 mg EVERY 12 HOURS IVP 05/12/18 21:00 06/10/18 20:59 06/06/18 09:27 Phenylephrine HCl 50 mg/Dextrose 250 ml @ 0 mls/hr Q24H IV 06/06/18 09:30 07/06/18 09:29 06/06/18 09:37 Phytonadione (Vitamin K) 10 mg ONCE A WEEK SUBQ 06/12/18 09:00 07/12/18 08:59 Vasopressin 100 units/Sodium Chloride 100 ml @ 0 mls/hr Q24H IV 05/22/18 11:30 06/21/18 11:29 06/06/18 08:04 Romie Hooks MD Jun 06, 2018 11:07
--- NOTE | 2018-06-06 11:10 | NUR ---
NURSE NOTES: Dr. Jain called and made aware PRBC's will take 3 hours to arrive, no additional orders given at this time, patient is running vasopressors medication.
--- NOTE | 2018-06-06 12:16 | General Progress Note ---
Progress Note Progress Note Surgery: upper and lower scope yesterday. no bleeding noted in upper or lower. colon okay, anastomosis okay. bleeding from small bowel somewhere. now on 3 pressors hypotensive critically ill anemia unstable prognosis poor thank you Tomas Chandler Jun 06, 2018 12:16
--- NOTE | 2018-06-06 13:20 | NUR ---
NURSE NOTES: Dr. Stephenson at the bedside with patient, made aware of labs and patient being on 3 vasopressors, Levophed, vasopressin and phenylephrine at mas dose, patient Lethargic at this time, no pain noted at this time, patient HR is 148 in sinus tachy cardia/a-fibb, with Bp of 66/18with Sao2 at 100%, VELVET draining remains draining yellowish colored draining, well continue plan of care.
[2018-06-06] MEDS: Cefepime HCl 2 GM in D5W 55 ML IVPB SCH (13:23)
--- NOTE | 2018-06-06 13:46 | General Progress Note ---
Assessment/Plan Assessment/Plan # Anemia of chronic disease due to underlying chronic medical issues, multifactorial --> Anemia w/u has been reviewed, reordered and ferritin is >2000 --> trend 10.3-->7.6-->8.9-->10.3-->9.5-->9.2-->8.3-->7.9-->8-->7.1-->9.-->9--> 8.5-->6.5-->6.3 --> Started to have rectal bleed and received blood transfusion 2 prbc 06/04/18 --> upper and lower scope 06/05. no bleeding noted in upper or lower. colon okay, anastomosis okay. bleeding from small bowel somewhere. --> okay to give blood and products as patient unable to give consent, 2MD consent done --> okay to give ffp if showing evidence of severe coagulopathy and bleeding --> continue Procrit 3x a week (started on 05/30) 3,000 sq dose # Thrombocytopenia due to septic shock --> vit K given for coagulopathy --> plt 163k-->116k-->83k-->98k-->105k-->109k-->108-->75-->62-->52 --> plt administration if bleeding # Small bowel perforation, s/p bowel resection, with Gram negative sepsis is on abx In ICU s/p Small bowel resection --> on broad spectrum abx --> on vanc/cefepime as per id--> now changed to zosyn, flagyl, micafungin--> on cefepime, levaquin and change per id --> s/p sb resection on 05/15, appreciate surg recs --> off pressors now --> Continues with GI bleed and has rectal tube. Going for EGD,Colonoscopy done 06/05, no bleeding noted # Hypofibrinoginemia -- potentially consumptive process given sepsis --> cryo given weeek of 05/23 --> fibrinogen 541 --> okay to give blood and products as patient unable to give consent, 2MD consent done # Lower extremity edema with an elevated BNP in a patient with renal failure on hemodialysis. --> on HD per Dr. Arroyo. --> currently has improved, continue to monitor # Atrial fib w rvr/flutter, being seen by cards, has converted to sr --> Cardiology is following, appreciate recs, echo was reviewed --> Currently denies any chest pain, completely rule out ACS --> EKG showed old inferior and anterior wall CT, but no ischemia --> ECHO with normal LV function --> off hep gtt and coumadin given drop in h/h # End-stage renal disease, on hemodialysis and also hyponatremia. --> Nephro is following, appreciate recs. HD approx 3x a week --> On intermittent HD # Respiratory failure on a vent, intubated # Mental status/confusion --> worsened at this time The time of note does not necessarily reflect the time of encounter Greatly appreciate consultation! Subjective ROS Limited/Unobtainable: Yes HEENT: Denies: no symptoms, eye pain, blurred vision, tearing, double vision, ear pain, ear discharge, nose pain, nose congestion, throat pain, throat swelling, mouth pain, mouth swelling, other Respiratory: Denies: no symptoms, cough, orthopnea, shortness of breath, SOB with excertion, SOB at rest, sputum, stridor, wheezing, other Allergies: Coded Allergies: No Known Allergies (Unverified , 11/12/12) Subjective 05/12: Pt resting in bed. No acute events. H/H stable. On abx. VS stable. 05/13: on pressors, on hep gtt, on steriods, abx, got hd, felice catheter in place : CT-A was negative, hep gtt as per cards, abg reviewed, moaning on exam, on ceftriaxone 05/15 :Pt remains in ICU. Currently undergoing HD. Pt on 2 cardiac drips for elevated Bp. WBC remains elevated. H/H stable. 05/16: s/p sb resection, In ICU s/p Small bowel resection on Amiodarone and Levophed drip. HR around 100. 05/17: Orally intubated on Ac 16, Vt 500, P 5 fio2 30%. Pt continues NPO at this time. Right upper arm and right FA IV sites patent and intact at this time. Amio gtt running 05/18: Pt remains in ICU. Pt for STAT HD. WBC remains elevated, afebrile. 05/19: getting hd periodically, no other events, vent to be weaned, labs reviewed, on dilaudid, ativan and fentanyl per pulm 05/21: prognosis is more guarded, no events to report, no f/c, but on two pressors now, on hep gtt for antonio thrombosis, hd as well 3x/week 05/22: on 2 pressors, seen by cards, renal, ryan drain draining improved, still on vent, converted to sr, on amio gtt, lactic acid downtrending, minimally responsive, on heparin gtt as well for antonio thrombus 05/23: patient to go to OR [facility] potential washout, ostomy, and line placement, fibrinogen low, needs cryoprecipirate, will also check inr/pt, cbc reviewed, electrolytes noted 05/24: Patient continues to be intubated on vent. He is s/p exploratory lap with wound washout and wound vac placement. 05/25: Pt is seen in the room, resting in bed. doing well since wound vac change , cbc reviewed, plt 163 05/26: Patient is is seen at bedside, intubated on vent. Wound vac still applied. No signs of pain at this time. Plt 116 . 1.7: again off pressors, plt somewhat lower, monitoring meds, on amio, antifungal as well, could be contributing, platelets and vitk given 05/28: had more surgeries yesterday with Right hemicolectomy, omentectomy & removal of wound-vac, off pressors, HD 05/29/18, on vent, stable 05/29: extubated but reintubated, on cefepime at this time, amiodarone, being seen by cards, procrit started 05/30: Pt is in ICU, Extubated and reintubated yesterday.Off Levophed and Heparin drip since surgery. On the Vent. 05/31: no events, remains on the vent, off pressors, received hd today 2.5L were removed 06/01: no fevers or chills, receiving hd as needed, on 1 pressors, not tolerating SBT very well 06/02: on a vent, no f/c noted, remains in the icu, poorly responsive at this time 06/03:Pt seen at bedside, in ICU on the vent. Off Amiodarone drip due to bradycardia. Off pressors, Had HD, leukocytosis trending down 14 today, plt 108 06/04: pt is lying in bed, on vent, Pt started to have rectal bleed and received blood transfusion 2 prbc. wbc 11, hgb 8.5 plt 73 06/05: Pt is seen in ICU on the vent. Having GI bleed and has rectal tube, On Levophed now and getting transfusion. Will go for EGD,Colonoscopy and re do surgery again. 06/06: completely obtunded, upper and lower scope yesterday. no bleeding noted in upper or lower. colon okay, anastomosis okay. bleeding from small bowel somewhere. INR high, given vitk Objective Last 24 Hour Vital Signs Date Time Temp Pulse Resp B/P (MAP) Pulse Ox O2 Delivery O2 Flow Rate FiO2 06/06/18 12:47 147 26 40 06/06/18 12:00 146 06/06/18 12:00 137 29 28/12 (17) 100 06/06/18 11:45 143 29 63/20 (34) 100 06/06/18 11:30 145 29 63/20 (34) 100 06/06/18 11:15 114 29 63/18 (33) 100 06/06/18 11:00 147 29 66/17 (33) 100 06/06/18 10:45 149 31 86/54 (65) 100 06/06/18 10:38 155 26 40 06/06/18 10:30 150 27 46/17 (27) 100 06/06/18 10:15 148 30 87/90 (89) 100 06/06/18 10:00 142 29 95/90 (92) 100 06/06/18 09:45 136 30 80/25 (43) 100 06/06/18 09:37 145 70/40 06/06/18 09:30 136 30 70/40 (50) 100 06/06/18 09:15 125 28 69/17 (34) 100 06/06/18 09:00 145 23 43/27 (32) 100 06/06/18 08:45 150 17 47/24 (32) 100 06/06/18 08:32 153 27 40 06/06/18 08:30 150 17 91/59 (70) 100 06/06/18 08:15 153 20 61/18 (32) 100 06/06/18 08:00 130 06/06/18 08:00 Mechanical Ventilator Mechanical Ventilator 06/06/18 08:00 40 06/06/18 08:00 99.0 133 24 75/40 (52) 100 06/06/18 07:30 130 25 70/15 (33) 100 06/06/18 07:00 99.0 124 24 81/45 (57) 100 06/06/18 07:00 81/45 06/06/18 06:31 130 26 40 06/06/18 06:30 134 24 81/43 (56) 100 06/06/18 06:02 95/53 06/06/18 06:00 90/35 06/06/18 06:00 131 24 90/35 (53) 100 06/06/18 05:30 131 26 63/22 (36) 100 06/06/18 05:11 128 23 40 06/06/18 05:00 89/27 06/06/18 05:00 128 23 89/27 (47) 100 06/06/18 04:30 123 23 88/21 (43) 100 06/06/18 04:00 Mechanical Ventilator Mechanical Ventilator 06/06/18 04:00 129 06/06/18 04:00 128 23 74/22 (39) 100 06/06/18 04:00 24 Mechanical Ventilator 40 06/06/18 04:00 72/19 06/06/18 04:00 40 06/06/18 03:30 112 22 75/22 (39) 100 06/06/18 03:00 115 22 75/25 (42) 100 06/06/18 03:00 24 Mechanical Ventilator 40 06/06/18 03:00 75/25 06/06/18 02:53 130 24 40 06/06/18 02:30 120 24 72/29 (43) 100 06/06/18 02:00 21 Mechanical Ventilator 40 06/06/18 02:00 92/25 06/06/18 02:00 120 22 92/25 (47) 100 06/06/18 01:45 134 22 76/44 (55) 100 06/06/18 01:30 135 22 69/22 (38) 100 06/06/18 01:21 70/29 06/06/18 01:15 137 22 71/55 (60) 100 06/06/18 01:12 133 23 40 06/06/18 01:00 135 22 48/39 (42) 100 06/06/18 01:00 24 Mechanical Ventilator 40 06/06/18 01:00 48/39 06/06/18 00:45 131 22 78/14 (35) 100 06/06/18 00:30 132 22 84/41 (55) 100 06/06/18 00:00 133 22 72/48 (56) 100 06/06/18 00:00 Mechanical Ventilator Mechanical Ventilator 06/06/18 00:00 25 Mechanical Ventilator 40 06/06/18 00:00 72/48 06/06/18 00:00 118 06/05/18 23:30 82/40 06/05/18 23:30 123 22 82/40 (54) 100 06/05/18 23:15 78/12 06/05/18 23:00 24 Mechanical Ventilator 40 06/05/18 23:00 76/22 06/05/18 23:00 127 22 76/22 (40) 100 06/05/18 22:57 124 23 40 06/05/18 22:45 85/24 06/05/18 22:30 123 22 100/20 (46) 100 06/05/18 22:30 100/20 06/05/18 22:15 77/23 06/05/18 22:00 123 22 70/22 (38) 100 06/05/18 22:00 20 Mechanical Ventilator 40 06/05/18 22:00 70/22 06/05/18 21:30 123 22 89/31 (50) 100 06/05/18 21:10 119 22 40 06/05/18 21:00 122 22 88/21 (43) 100 06/05/18 21:00 21 Mechanical Ventilator 40 06/05/18 21:00 88/21 06/05/18 20:30 118 22 93/12 (39) 100 06/05/18 20:19 106/36 06/05/18 20:00 40 06/05/18 20:00 24 Mechanical Ventilator 40 06/05/18 20:00 106/36 06/05/18 20:00 103 06/05/18 20:00 111 22 106/36 (59) 100 06/05/18 20:00 Mechanical Ventilator Mechanical Ventilator 06/05/18 19:30 103 22 127/30 (62) 100 06/05/18 19:08 99 21 40 06/05/18 19:00 96 22 115/21 (52) 100 06/05/18 19:00 20 Mechanical Ventilator 40 06/05/18 18:30 95 22 93/34 (53) 100 06/05/18 18:00 19 Mechanical Ventilator 40 06/05/18 18:00 97 22 114/30 (58) 100 06/05/18 17:30 91 21 122/36 (64) 100 06/05/18 17:00 98.4 101 28 94/34 (54) 100 06/05/18 17:00 18 Mechanical Ventilator 40 06/05/18 17:00 99/17 06/05/18 16:32 112 20 40 06/05/18 16:30 93 23 110/24 (52) 100 06/05/18 16:00 111 20 88/33 (51) 100 06/05/18 16:00 Mechanical Ventilator Mechanical Ventilator 06/05/18 16:00 40 06/05/18 16:00 20 Mechanical Ventilator 40 06/05/18 16:00 88/33 06/05/18 15:39 105 06/05/18 15:30 111 20 99/45 (63) 100 06/05/18 15:15 111 20 90/31 (50) 100 06/05/18 15:00 20 Mechanical Ventilator 40 06/05/18 15:00 89/69 06/05/18 15:00 111 20 89/69 (76) 100 06/05/18 14:49 111 20 40 06/05/18 14:47 110 19 100 06/05/18 14:45 95 20 65/21 (36) 100 06/05/18 14:30 114 20 81/31 (48) 100 06/05/18 14:00 Mechanical Ventilator 40 Intake and Output 06/05/18 06/06/18 18:59 06:59 Intake Total 2369.961 ml 2625.129 ml Output Total 370 ml 480 ml Balance 1999.961 ml 2145.129 ml IV Total 1619.961 ml 2075.129 ml Blood Product 750 ml 550 ml Stool Total 200 ml Emesis 30 ml Drainage Total 340 ml 280 ml # Bowel Movements 2 4 Laboratory Tests 06/05/18 21:32: White Blood Count 12.2H, Red Blood Count 2.10L, Hemoglobin 6.5*L, Hematocrit 18.6L, Mean Corpuscular Volume 89, Mean Corpuscular Hemoglobin 31.1H, Mean Corpuscular Hemoglobin Concent 35.1, Red Cell Distribution Width 12.2, Platelet Count 62L, Mean Platelet Volume 7.8, Neutrophils (%) (Auto) , Lymphocytes (%) ( Auto) , Monocytes (%) (Auto) , Eosinophils (%) (Auto) , Basophils (%) (Auto) , Differential Total Cells Counted 100, Neutrophils % (Manual) 88H, Lymphocytes % (Manual) 4L, Monocytes % (Manual) 3, Eosinophils % (Manual) 1, Basophils % ( Manual) 1, Band Neutrophils 3, Platelet Estimate DecreasedL, Platelet Morphology Normal, Hypochromasia 2+, Anisocytosis 2+, Prothrombin Time 15.7H, Prothromb Time International Ratio 1.5H 06/06/18 07:40: White Blood Count 12.8H, Red Blood Count 2.02L, Hemoglobin 6.3*L, Hematocrit 18.4L, Mean Corpuscular Volume 91, Mean Corpuscular Hemoglobin 31.3H, Mean Corpuscular Hemoglobin Concent 34.3, Red Cell Distribution Width 13.8, Platelet Count 52L, Mean Platelet Volume 9.5, Neutrophils (%) (Auto) , Lymphocytes (%) ( Auto) , Monocytes (%) (Auto) , Eosinophils (%) (Auto) , Basophils (%) (Auto) , Differential Total Cells Counted 100, Neutrophils % (Manual) 89H, Lymphocytes % (Manual) 4L, Monocytes % (Manual) 3, Eosinophils % (Manual) 0, Basophils % ( Manual) 0, Band Neutrophils 4, Platelet Estimate DecreasedL, Platelet Morphology Normal, Anisocytosis 1+, Prothrombin Time 20.8H, Prothromb Time International Ratio 2.0H, Nucleated Red Blood Cells 1, Sodium Level 146H, Potassium Level 4.1, Chloride Level 111H, Carbon Dioxide Level 14L, Anion Gap 21H, Blood Urea Nitrogen 127H, Creatinine 4.5H, Estimat Glomerular Filtration Rate , Glucose Level 316#H, Uric Acid 6.5, Calcium Level 6.9L, Phosphorus Level 7.8H, Magnesium Level 1.8, Total Bilirubin 0.4, Aspartate Amino Transf (AST/SGOT ) 24, Alanine Aminotransferase (ALT/SGPT) 11L, Alkaline Phosphatase 62, Troponin I 0.477H, C-Reactive Protein, Quantitative 4.3H, Pro-B-Type Natriuretic Peptide 03417P, Total Protein 2.9L, Albumin 1.0L, Globulin 1.9, Albumin/Globulin Ratio 0.5L Height (Feet): 5 Height (Inches): 5.00 Weight (Pounds): 23 Objective PE: VITAL SIGNS: Have been reviewed HEENT: PERRLA. intubated, vent++, nonverbal NECK: Supple. No lymphadenopathy CHEST: ++ intubated CARDIOVASCULAR: Tachycardic. GASTROINTESTINAL: Distended. Positive bowel sounds. Nontender. No organomegaly. ++ ryan drain in place EXTREMITY: 2+ edema. NEURO: responsive to simple command Reinaldo Leon MD Jun 06, 2018 13:46
--- NOTE | 2018-06-06 14:06 | Pulmonolgy Critical Care Note ---
Critical Care - Asmt/Plan Problems: (1) Shock Assessment & Plan: HEMORRHAGIC (2) Hypoxemia (3) Elevated d-dimer Assessment & Plan: S/P neg CT-A + UE DVT (4) Hypotension (5) Atrial fibrillation (6) ESRD (end stage renal disease) on dialysis (7) ACS (acute coronary syndrome) (8) Sacral decubitus ulcer, stage III (9) S/P cholecystectomy (10) Serratia sepsis (11) S/P exploratory laparotomy (12) Perforated viscus (13) Thrombocythemia (14) BRBPR (bright red blood per rectum) Assessment/Plan: -ABG -CXR -Continue AC 20 PC delta P 25 -Tirate down FiO2 and PEEP to keep SaO2 > 90% -Titrate pressors (NE, FORTINO, vaso) to keep MAP > 60 -Increase HD back to 100 TID and taper -HD per renal as able - unable due to BP -[facility] held -Monitor CBC, transfuse as needed --> getting PRBC, Vit K -Monitor for continued bleeding -F/u GI and surgery recs, unstable for CT -Flucon, Flagyl, levaquin, Cefepime per ID, F/U Cx's, monitor WCt -NPO , TPN -F/U surgery recs -FC, ethics recs ---> FAMILY MTG TOMMORROW -PROGNOSIS POOR D/W RN and RT D/W Dr. Arroyo CCT 55 Critical Care - Objective Last 24 Hour Vital Signs Date Time Temp Pulse Resp B/P (MAP) Pulse Ox O2 Delivery O2 Flow Rate FiO2 06/06/18 12:47 147 26 40 06/06/18 12:00 146 06/06/18 12:00 137 29 28/12 (17) 100 06/06/18 11:45 143 29 63/20 (34) 100 06/06/18 11:30 145 29 63/20 (34) 100 06/06/18 11:15 114 29 63/18 (33) 100 06/06/18 11:00 147 29 66/17 (33) 100 06/06/18 10:45 149 31 86/54 (65) 100 06/06/18 10:38 155 26 40 06/06/18 10:30 150 27 46/17 (27) 100 06/06/18 10:15 148 30 87/90 (89) 100 06/06/18 10:00 142 29 95/90 (92) 100 06/06/18 09:45 136 30 80/25 (43) 100 06/06/18 09:37 145 70/40 06/06/18 09:30 136 30 70/40 (50) 100 06/06/18 09:15 125 28 69/17 (34) 100 06/06/18 09:00 145 23 43/27 (32) 100 06/06/18 08:45 150 17 47/24 (32) 100 06/06/18 08:32 153 27 40 06/06/18 08:30 150 17 91/59 (70) 100 06/06/18 08:15 153 20 61/18 (32) 100 06/06/18 08:00 130 06/06/18 08:00 Mechanical Ventilator Mechanical Ventilator 06/06/18 08:00 40 06/06/18 08:00 99.0 133 24 75/40 (52) 100 06/06/18 07:30 130 25 70/15 (33) 100 06/06/18 07:00 99.0 124 24 81/45 (57) 100 06/06/18 07:00 81/45 06/06/18 06:31 130 26 40 06/06/18 06:30 134 24 81/43 (56) 100 06/06/18 06:02 95/53 06/06/18 06:00 90/35 06/06/18 06:00 131 24 90/35 (53) 100 06/06/18 05:30 131 26 63/22 (36) 100 06/06/18 05:11 128 23 40 06/06/18 05:00 89/27 06/06/18 05:00 128 23 89/27 (47) 100 06/06/18 04:30 123 23 88/21 (43) 100 06/06/18 04:00 Mechanical Ventilator Mechanical Ventilator 06/06/18 04:00 129 06/06/18 04:00 128 23 74/22 (39) 100 06/06/18 04:00 24 Mechanical Ventilator 40 06/06/18 04:00 72/19 06/06/18 04:00 40 06/06/18 03:30 112 22 75/22 (39) 100 06/06/18 03:00 115 22 75/25 (42) 100 06/06/18 03:00 24 Mechanical Ventilator 40 06/06/18 03:00 75/25 06/06/18 02:53 130 24 40 06/06/18 02:30 120 24 72/29 (43) 100 06/06/18 02:00 21 Mechanical Ventilator 40 06/06/18 02:00 92/25 06/06/18 02:00 120 22 92/25 (47) 100 06/06/18 01:45 134 22 76/44 (55) 100 06/06/18 01:30 135 22 69/22 (38) 100 06/06/18 01:21 70/29 06/06/18 01:15 137 22 71/55 (60) 100 06/06/18 01:12 133 23 40 06/06/18 01:00 135 22 48/39 (42) 100 06/06/18 01:00 24 Mechanical Ventilator 40 06/06/18 01:00 48/39 06/06/18 00:45 131 22 78/14 (35) 100 06/06/18 00:30 132 22 84/41 (55) 100 06/06/18 00:00 133 22 72/48 (56) 100 06/06/18 00:00 Mechanical Ventilator Mechanical Ventilator 06/06/18 00:00 25 Mechanical Ventilator 40 06/06/18 00:00 72/48 06/06/18 00:00 118 06/05/18 23:30 82/40 06/05/18 23:30 123 22 82/40 (54) 100 06/05/18 23:15 78/12 06/05/18 23:00 24 Mechanical Ventilator 40 06/05/18 23:00 76/22 06/05/18 23:00 127 22 76/22 (40) 100 06/05/18 22:57 124 23 40 06/05/18 22:45 85/24 06/05/18 22:30 123 22 100/20 (46) 100 06/05/18 22:30 100/20 06/05/18 22:15 77/23 06/05/18 22:00 123 22 70/22 (38) 100 06/05/18 22:00 20 Mechanical Ventilator 40 06/05/18 22:00 70/22 06/05/18 21:30 123 22 89/31 (50) 100 06/05/18 21:10 119 22 40 06/05/18 21:00 122 22 88/21 (43) 100 06/05/18 21:00 21 Mechanical Ventilator 40 06/05/18 21:00 88/21 06/05/18 20:30 118 22 93/12 (39) 100 06/05/18 20:19 106/36 06/05/18 20:00 40 06/05/18 20:00 24 Mechanical Ventilator 40 06/05/18 20:00 106/36 06/05/18 20:00 103 06/05/18 20:00 111 22 106/36 (59) 100 06/05/18 20:00 Mechanical Ventilator Mechanical Ventilator 06/05/18 19:30 103 22 127/30 (62) 100 06/05/18 19:08 99 21 40 06/05/18 19:00 96 22 115/21 (52) 100 06/05/18 19:00 20 Mechanical Ventilator 40 06/05/18 18:30 95 22 93/34 (53) 100 06/05/18 18:00 19 Mechanical Ventilator 40 06/05/18 18:00 97 22 114/30 (58) 100 06/05/18 17:30 91 21 122/36 (64) 100 06/05/18 17:00 98.4 101 28 94/34 (54) 100 06/05/18 17:00 18 Mechanical Ventilator 40 06/05/18 17:00 99/17 06/05/18 16:32 112 20 40 06/05/18 16:30 93 23 110/24 (52) 100 06/05/18 16:00 111 20 88/33 (51) 100 06/05/18 16:00 Mechanical Ventilator Mechanical Ventilator 06/05/18 16:00 40 06/05/18 16:00 20 Mechanical Ventilator 40 06/05/18 16:00 88/33 06/05/18 15:39 105 06/05/18 15:30 111 20 99/45 (63) 100 06/05/18 15:15 111 20 90/31 (50) 100 06/05/18 15:00 20 Mechanical Ventilator 40 06/05/18 15:00 89/69 06/05/18 15:00 111 20 89/69 (76) 100 06/05/18 14:49 111 20 40 06/05/18 14:47 110 19 100 06/05/18 14:45 95 20 65/21 (36) 100 06/05/18 14:30 114 20 81/31 (48) 100 06/05/18 14:00 Mechanical Ventilator 40 Status: obtunded Condition: critical HEENT: atraumatic, normocephalic Lungs: rhonchi Heart: HR/BP unstable Abdomen: soft, non-tender, active bowel sounds, other - dressed VELVET OP Extremities: edema - 2+ Decubiti: location - sacral, stage - 2 Accucheck: 329 Blood Sugars: BS not controlled Critical Care - Subjective ROS Limited/Unobtainable: Yes ICU Day: 23 Intubation Day: Re-in 9 Interval Events: S/P EGD/colo bleeding noted Getting product On 3 pressors + bloody secretions On TPN Condition: critical IV Access: central EKG Rhythm: Sinus Tachycardia FI02: 40 Vent Support Breath Rate: 20 Vent Support Mode: AC Vent Tidal Volume: 500 Sputum Amount: Small PEEP: 10.0 PIP: 35 Secretions: Blood tinged Fluids: N/A Drips: NE 30 Vaso 0.04 FORTINO 3 Tube Feeding Amount: 0 I&O: Intake and Output 06/05/18 06/06/18 18:59 06:59 Intake Total 2369.961 ml 2625.129 ml Output Total 370 ml 480 ml Balance 1999.961 ml 2145.129 ml IV Total 1619.961 ml 2075.129 ml Blood Product 750 ml 550 ml Stool Total 200 ml Emesis 30 ml Drainage Total 340 ml 280 ml # Bowel Movements 2 4 Subjective: CROW ET-Tube: 7.5 ET Position: 24 Labs: Laboratory Tests Test 06/05/18 21:32 06/06/18 07:40 White Blood Count 12.2 K/UL (4.8-10.8) H 12.8 K/UL (4.8-10.8) H Red Blood Count 2.10 M/UL (4.70-6.10) L 2.02 M/UL (4.70-6.10) L Hemoglobin 6.5 G/DL (14.2-18.0) *L 6.3 G/DL (14.2-18.0) *L Hematocrit 18.6 % (42.0-52.0) L 18.4 % (42.0-52.0) L Mean Corpuscular Volume 89 FL (80-99) 91 FL (80-99) Mean Corpuscular Hemoglobin 31.1 PG (27.0-31.0) H 31.3 PG (27.0-31.0) H Mean Corpuscular Hemoglobin Concent 35.1 G/DL (32.0-36.0) 34.3 G/DL (32.0-36.0) Red Cell Distribution Width 12.2 % (11.6-14.8) 13.8 % (11.6-14.8) Platelet Count 62 K/UL (150-450) L 52 K/UL (150-450) L Mean Platelet Volume 7.8 FL (6.5-10.1) 9.5 FL (6.5-10.1) Neutrophils (%) (Auto) % (45.0-75.0) % (45.0-75.0) Lymphocytes (%) (Auto) % (20.0-45.0) % (20.0-45.0) Monocytes (%) (Auto) % (1.0-10.0) % (1.0-10.0) Eosinophils (%) (Auto) % (0.0-3.0) % (0.0-3.0) Basophils (%) (Auto) % (0.0-2.0) % (0.0-2.0) Differential Total Cells Counted 100 100 Neutrophils % (Manual) 88 % (45-75) H 89 % (45-75) H Lymphocytes % (Manual) 4 % (20-45) L 4 % (20-45) L Monocytes % (Manual) 3 % (1-10) 3 % (1-10) Eosinophils % (Manual) 1 % (0-3) 0 % (0-3) Basophils % (Manual) 1 % (0-2) 0 % (0-2) Band Neutrophils 3 % (0-8) 4 % (0-8) Platelet Estimate Decreased L Decreased L Platelet Morphology Normal Normal Hypochromasia 2+ Anisocytosis 2+ 1+ Prothrombin Time 15.7 SEC (9.30-11.50) H 20.8 SEC (9.30-11.50) H Prothromb Time International Ratio 1.5 (0.9-1.1) H 2.0 (0.9-1.1) H Nucleated Red Blood Cells 1 /100 WBC Sodium Level 146 MMOL/L (136-145) H Potassium Level 4.1 MMOL/L (3.5-5.1) Chloride Level 111 MMOL/L (98-107) H Carbon Dioxide Level 14 MMOL/L (21-32) L Anion Gap 21 mmol/L (5-15) H Blood Urea Nitrogen 127 mg/dL (7-18) H Creatinine 4.5 MG/DL (0.55-1.30) H Estimat Glomerular Filtration Rate mL/min (>60) Glucose Level 316 MG/DL (74-106) #H Uric Acid 6.5 MG/DL (2.6-7.2) Calcium Level 6.9 MG/DL (8.5-10.1) L Phosphorus Level 7.8 MG/DL (2.5-4.9) H Magnesium Level 1.8 MG/DL (1.8-2.4) Total Bilirubin 0.4 MG/DL (0.2-1.0) Aspartate Amino Transf (AST/SGOT) 24 U/L (15-37) Alanine Aminotransferase (ALT/SGPT) 11 U/L (12-78) L Alkaline Phosphatase 62 U/L (46-116) Troponin I 0.477 ng/mL (0.000-0.056) C-Reactive Protein, Quantitative 4.3 mg/dL (0.00-0.90) H Pro-B-Type Natriuretic Peptide 68359 pg/mL (0-125) H Total Protein 2.9 G/DL (6.4-8.2) L Albumin 1.0 G/DL (3.4-5.0) L Globulin 1.9 g/dL Albumin/Globulin Ratio 0.5 (1.0-2.7) L Daryl Jones MD Jun 06, 2018 14:06
--- NOTE | 2018-06-06 14:41 | Cardiac Electrophysiology PN ---
Assessment/Plan Assessment/Plan 1. Atrial fib/flutter with RVR In SR. Off Amio drip for bradycardia. In SR Can't switch to po as NPO On dig 0.125 mg iv MWF. 2. Troponin leak due to renal failure and nonspecific EKG showed old inferior and anterior wall TX, but no ischemia. ECHO normal LV function 3. End-stage renal disease, on hemodialysis per Dr. Arroyo. 4. Septic shock, maxed out on 3 pressors 2D Echo EF 60% and PA pressure 63 Off heparin drip for surgery and GI bleed 5. Hx of lap matthew. S/P SB resection 05/15/18 with drain S/P redo surgery 05/23/18 for anastomotic leak. S/P surgery again by Dr. Chandler 05/27/18 S/P surgery again 06/05/18 On TPN and Abx 6. Respiratory failure, reintubated on the vent. 7. GI Bleed. S/P multiple PRBCs EGD,Colonoscopy and redo surgery 8. History of psychiatric problems, dementia. DW RN Very poor prognosis Subjective Subjective In ICU on the vent. Continues with GI bleed and has rectal tube. Maxed out on Levophed, Florentino and Epi now and has had multiple transfusions. Had EGD,Colonoscopy and re do surgery again yesterday Objective Last 24 Hour Vital Signs Date Time Temp Pulse Resp B/P (MAP) Pulse Ox O2 Delivery O2 Flow Rate FiO2 06/06/18 14:31 66/17 06/06/18 14:00 75/24 06/06/18 14:00 111 28 75/24 (41) 99 06/06/18 13:30 109 30 65/20 (35) 98 06/06/18 13:00 149 26 66/18 (34) 100 06/06/18 13:00 66/18 06/06/18 12:47 147 26 40 06/06/18 12:30 148 26 63/17 (32) 100 06/06/18 12:00 40 06/06/18 12:00 Mechanical Ventilator Mechanical Ventilator 06/06/18 12:00 58/12 06/06/18 12:00 146 06/06/18 12:00 98.6 137 29 28/12 (17) 100 06/06/18 11:45 143 29 63/20 (34) 100 06/06/18 11:30 145 29 63/20 (34) 100 06/06/18 11:15 114 29 63/18 (33) 100 06/06/18 11:00 66/17 06/06/18 11:00 147 29 66/17 (33) 100 06/06/18 10:45 149 31 86/54 (65) 100 06/06/18 10:38 155 26 40 06/06/18 10:30 150 27 46/17 (27) 100 06/06/18 10:15 148 30 87/90 (89) 100 06/06/18 10:00 142 29 95/90 (92) 100 06/06/18 09:45 136 30 80/25 (43) 100 06/06/18 09:37 145 70/40 06/06/18 09:30 136 30 70/40 (50) 100 06/06/18 09:15 125 28 69/17 (34) 100 06/06/18 09:00 43/27 06/06/18 09:00 145 23 43/27 (32) 100 06/06/18 08:45 150 17 47/24 (32) 100 06/06/18 08:32 153 27 40 06/06/18 08:30 150 17 91/59 (70) 100 06/06/18 08:15 153 20 61/18 (32) 100 06/06/18 08:00 130 06/06/18 08:00 Mechanical Ventilator Mechanical Ventilator 06/06/18 08:00 40 06/06/18 08:00 99.0 133 24 75/40 (52) 100 06/06/18 07:30 130 25 70/15 (33) 100 06/06/18 07:00 99.0 124 24 81/45 (57) 100 06/06/18 07:00 81/45 06/06/18 06:31 130 26 40 06/06/18 06:30 134 24 81/43 (56) 100 06/06/18 06:02 95/53 06/06/18 06:00 90/35 06/06/18 06:00 131 24 90/35 (53) 100 06/06/18 05:30 131 26 63/22 (36) 100 06/06/18 05:11 128 23 40 06/06/18 05:00 89/27 06/06/18 05:00 128 23 89/27 (47) 100 06/06/18 04:30 123 23 88/21 (43) 100 06/06/18 04:00 Mechanical Ventilator Mechanical Ventilator 06/06/18 04:00 129 06/06/18 04:00 128 23 74/22 (39) 100 06/06/18 04:00 24 Mechanical Ventilator 40 06/06/18 04:00 72/19 06/06/18 04:00 40 06/06/18 03:30 112 22 75/22 (39) 100 06/06/18 03:00 115 22 75/25 (42) 100 06/06/18 03:00 24 Mechanical Ventilator 40 06/06/18 03:00 75/25 06/06/18 02:53 130 24 40 06/06/18 02:30 120 24 72/29 (43) 100 06/06/18 02:00 21 Mechanical Ventilator 40 06/06/18 02:00 92/25 06/06/18 02:00 120 22 92/25 (47) 100 06/06/18 01:45 134 22 76/44 (55) 100 06/06/18 01:30 135 22 69/22 (38) 100 06/06/18 01:21 70/29 06/06/18 01:15 137 22 71/55 (60) 100 06/06/18 01:12 133 23 40 06/06/18 01:00 135 22 48/39 (42) 100 06/06/18 01:00 24 Mechanical Ventilator 40 06/06/18 01:00 48/39 06/06/18 00:45 131 22 78/14 (35) 100 06/06/18 00:30 132 22 84/41 (55) 100 06/06/18 00:00 133 22 72/48 (56) 100 06/06/18 00:00 Mechanical Ventilator Mechanical Ventilator 06/06/18 00:00 25 Mechanical Ventilator 40 06/06/18 00:00 72/48 06/06/18 00:00 118 06/05/18 23:30 82/40 06/05/18 23:30 123 22 82/40 (54) 100 06/05/18 23:15 78/12 06/05/18 23:00 24 Mechanical Ventilator 40 06/05/18 23:00 76/22 06/05/18 23:00 127 22 76/22 (40) 100 06/05/18 22:57 124 23 40 06/05/18 22:45 85/24 06/05/18 22:30 123 22 100/20 (46) 100 06/05/18 22:30 100/20 06/05/18 22:15 77/23 06/05/18 22:00 123 22 70/22 (38) 100 06/05/18 22:00 20 Mechanical Ventilator 40 06/05/18 22:00 70/22 06/05/18 21:30 123 22 89/31 (50) 100 06/05/18 21:10 119 22 40 06/05/18 21:00 122 22 88/21 (43) 100 06/05/18 21:00 21 Mechanical Ventilator 40 06/05/18 21:00 88/21 06/05/18 20:30 118 22 93/12 (39) 100 06/05/18 20:19 106/36 06/05/18 20:00 40 06/05/18 20:00 24 Mechanical Ventilator 40 06/05/18 20:00 106/36 06/05/18 20:00 103 06/05/18 20:00 111 22 106/36 (59) 100 06/05/18 20:00 Mechanical Ventilator Mechanical Ventilator 06/05/18 19:30 103 22 127/30 (62) 100 06/05/18 19:08 99 21 40 06/05/18 19:00 96 22 115/21 (52) 100 06/05/18 19:00 20 Mechanical Ventilator 40 06/05/18 18:30 95 22 93/34 (53) 100 06/05/18 18:00 19 Mechanical Ventilator 40 06/05/18 18:00 97 22 114/30 (58) 100 06/05/18 17:30 91 21 122/36 (64) 100 06/05/18 17:00 98.4 101 28 94/34 (54) 100 06/05/18 17:00 18 Mechanical Ventilator 40 06/05/18 17:00 99/17 06/05/18 16:32 112 20 40 06/05/18 16:30 93 23 110/24 (52) 100 06/05/18 16:00 111 20 88/33 (51) 100 06/05/18 16:00 Mechanical Ventilator Mechanical Ventilator 06/05/18 16:00 40 06/05/18 16:00 20 Mechanical Ventilator 40 06/05/18 16:00 88/33 06/05/18 15:39 105 06/05/18 15:30 111 20 99/45 (63) 100 06/05/18 15:15 111 20 90/31 (50) 100 06/05/18 15:00 20 Mechanical Ventilator 40 06/05/18 15:00 89/69 06/05/18 15:00 111 20 89/69 (76) 100 06/05/18 14:49 111 20 40 06/05/18 14:47 110 19 100 06/05/18 14:45 95 20 65/21 (36) 100 Intake and Output 06/05/18 06/06/18 18:59 06:59 Intake Total 2369.961 ml 2625.129 ml Output Total 370 ml 480 ml Balance 1999.961 ml 2145.129 ml IV Total 1619.961 ml 2075.129 ml Blood Product 750 ml 550 ml Stool Total 200 ml Emesis 30 ml Drainage Total 340 ml 280 ml # Bowel Movements 2 4 Laboratory Tests Test 06/05/18 21:32 06/06/18 07:40 06/06/18 14:30 White Blood Count 12.2 K/UL (4.8-10.8) H 12.8 K/UL (4.8-10.8) H Red Blood Count 2.10 M/UL (4.70-6.10) L 2.02 M/UL (4.70-6.10) L Hemoglobin 6.5 G/DL (14.2-18.0) *L 6.3 G/DL (14.2-18.0) *L Hematocrit 18.6 % (42.0-52.0) L 18.4 % (42.0-52.0) L Mean Corpuscular Volume 89 FL (80-99) 91 FL (80-99) Mean Corpuscular Hemoglobin 31.1 PG (27.0-31.0) H 31.3 PG (27.0-31.0) H Mean Corpuscular Hemoglobin Concent 35.1 G/DL (32.0-36.0) 34.3 G/DL (32.0-36.0) Red Cell Distribution Width 12.2 % (11.6-14.8) 13.8 % (11.6-14.8) Platelet Count 62 K/UL (150-450) L 52 K/UL (150-450) L Mean Platelet Volume 7.8 FL (6.5-10.1) 9.5 FL (6.5-10.1) Neutrophils (%) (Auto) % (45.0-75.0) % (45.0-75.0) Lymphocytes (%) (Auto) % (20.0-45.0) % (20.0-45.0) Monocytes (%) (Auto) % (1.0-10.0) % (1.0-10.0) Eosinophils (%) (Auto) % (0.0-3.0) % (0.0-3.0) Basophils (%) (Auto) % (0.0-2.0) % (0.0-2.0) Differential Total Cells Counted 100 100 Neutrophils % (Manual) 88 % (45-75) H 89 % (45-75) H Lymphocytes % (Manual) 4 % (20-45) L 4 % (20-45) L Monocytes % (Manual) 3 % (1-10) 3 % (1-10) Eosinophils % (Manual) 1 % (0-3) 0 % (0-3) Basophils % (Manual) 1 % (0-2) 0 % (0-2) Band Neutrophils 3 % (0-8) 4 % (0-8) Platelet Estimate Decreased L Decreased L Platelet Morphology Normal Normal Hypochromasia 2+ Anisocytosis 2+ 1+ Prothrombin Time 15.7 SEC (9.30-11.50) H 20.8 SEC (9.30-11.50) H Prothromb Time International Ratio 1.5 (0.9-1.1) H 2.0 (0.9-1.1) H Nucleated Red Blood Cells 1 /100 WBC Sodium Level 146 MMOL/L (136-145) H Potassium Level 4.1 MMOL/L (3.5-5.1) Chloride Level 111 MMOL/L (98-107) H Carbon Dioxide Level 14 MMOL/L (21-32) L Anion Gap 21 mmol/L (5-15) H Blood Urea Nitrogen 127 mg/dL (7-18) H Creatinine 4.5 MG/DL (0.55-1.30) H Estimat Glomerular Filtration Rate mL/min (>60) Glucose Level 316 MG/DL (74-106) #H Uric Acid 6.5 MG/DL (2.6-7.2) Calcium Level 6.9 MG/DL (8.5-10.1) L Phosphorus Level 7.8 MG/DL (2.5-4.9) H Magnesium Level 1.8 MG/DL (1.8-2.4) Total Bilirubin 0.4 MG/DL (0.2-1.0) Aspartate Amino Transf (AST/SGOT) 24 U/L (15-37) Alanine Aminotransferase (ALT/SGPT) 11 U/L (12-78) L Alkaline Phosphatase 62 U/L (46-116) Troponin I 0.477 ng/mL (0.000-0.056) C-Reactive Protein, Quantitative 4.3 mg/dL (0.00-0.90) H Pro-B-Type Natriuretic Peptide 55006 pg/mL (0-125) H Total Protein 2.9 G/DL (6.4-8.2) L Albumin 1.0 G/DL (3.4-5.0) L Globulin 1.9 g/dL Albumin/Globulin Ratio 0.5 (1.0-2.7) L Arterial Blood pH Pending Arterial Blood Partial Pressure CO2 Pending Arterial Blood Partial Pressure O2 Pending Arterial Blood HCO3 Pending Arterial Blood Oxygen Saturation Pending Arterial Blood Base Excess Pending Luiz Test Pending Objective HEENT: Orally intubated Cardiovascular: Sinus tachycardia Respiratory/Chest: Coarse rhonchi Abdomen: Post op with 2 VELVET drain Extremities: 1 plus edema. Right groin dialysis catheter Everett Stephenson MD Jun 06, 2018 14:41
--- NOTE | 2018-06-06 14:45 | NUR ---
NURSE NOTES: Dr. Jones informed regarding ABG results and ordered to have ABG in 2hrs done with ventilator setting changed to rate of 30 with P of 25, FIo2 40%, 1/2ns with 2 amps of bicard, and stop TPN, will place orders.
[2018-06-06] MEDS ORDERED: Phytonadione 10 MG in D5W 55 ML IVPB ONE (15:00)
--- NOTE | 2018-06-06 15:00 | NUR ---
NURSE NOTES: Patient coded with no Pulse present, See code Blue chart.
--- NOTE | 2018-06-06 15:04 | NUR ---
CASE MANAGEMENT: REVIEW SI: ESRD ON HD . ACS . A-FIB RIGHT FEMORAL TEMPORARY HEMODIALYSIS CATHETER INSERTION 05/13 T 98.6 HR 137 RR 29 BP 58/12 SAT 100% MECH VENT FIO2 40 WBC 12.8 H/H 6.3/18.4 IS: TPN IV Q24HR VIT K SQ 1/WEEK LEVEMIR SQ Q12HR FENTANYL IV Q24HR PROCRIT SQ MWF VASOPRESSIN IV Q24HR LEVOPHED IV Q24HR ICU STATUS DCP: PATIENT IS FROM HOME
[2018-06-06] MEDS ORDERED: Tubing IV Secondary IV ONE ×4 (15:05)
[2018-06-06] MEDS ORDERED: LR 1000ml ONE (15:05)
[2018-06-06] MEDS ORDERED: Tubing Blood Filter IV ONE ×2 (15:05)
[2018-06-06] MEDS ORDERED: D5W 550ml IV ONE ×2 (15:05)
[2018-06-06] MEDS ORDERED: NS 275ml ONE ×3 (15:05)
--- NOTE | 2018-06-06 15:06 | NUR ---
NURSE NOTES: Patient pronounced by ER Doctor Henao at the bedside,
--- NOTE | 2018-06-06 15:11 | Nephrology Progress Note ---
Assessment/Plan Problem List: (1) ESRD (end stage renal disease) on dialysis (2) Perforated bowel (3) Hyponatremia (4) Major depression (5) Nausea & vomiting (6) H/O abdominal surgery Assessment: recent (7) Shock Assessment Hypotensive Acidotic back on pressors bleeding, site unknown recent abdominal surgery Presents with CHF and Low Na ESRD ACS DM HTN h/o GI bleed Depression Plan surgical , GI advise hold TPN, Bicarb drip- Unstable for HD up dose hydrocortisone transfuse a needed poor prognosis on steroids vented insulin for high BS hold dig , check levels, resume as needed Has abd surgery 05/15 Perforated bowel graft clotted , has a femoral felice right HOLD ALL MIND ALTERING MEDS - DC all po meds FLUID CHALLENGE pressors as needed BP HR Pain control discussed with RN and Dr Jones IV protonix Subjective ROS Limited/Unobtainable: Yes Objective Objective Last 24 Hour Vital Signs Date Time Temp Pulse Resp B/P (MAP) Pulse Ox O2 Delivery O2 Flow Rate FiO2 06/06/18 14:31 66/06/06/18 14:00 75/24 06/06/18 14:00 111 28 75/24 (41) 99 06/06/18 13:30 109 30 65/20 (35) 98 06/06/18 13:00 149 26 66/18 (34) 100 06/06/18 13:00 /18 06/06/18 12:47 147 26 40 06/06/18 12:30 148 26 63/17 (32) 100 06/06/18 12:00 40 06/06/18 12:00 Mechanical Ventilator Mechanical Ventilator 06/06/18 12:00 58/12 06/06/18 12:00 146 06/06/18 12:00 98.6 137 29 28/12 (17) 100 06/06/18 11:45 143 29 63/20 (34) 100 06/06/18 11:30 145 29 63/20 (34) 100 06/06/18 11:15 114 29 63/18 (33) 100 06/06/18 11:00 66/17 06/06/18 11:00 147 29 66/17 (33) 100 06/06/18 10:45 149 31 86/54 (65) 100 06/06/18 10:38 155 26 40 06/06/18 10:30 150 27 46/17 (27) 100 06/06/18 10:15 148 30 87/90 (89) 100 06/06/18 10:00 142 29 95/90 (92) 100 06/06/18 09:45 136 30 80/25 (43) 100 06/06/18 09:37 145 70/40 06/06/18 09:30 136 30 70/40 (50) 100 06/06/18 09:15 125 28 69/17 (34) 100 06/06/18 09:00 43/27 06/06/18 09:00 145 23 43/27 (32) 100 06/06/18 08:45 150 17 47/24 (32) 100 06/06/18 08:32 153 27 40 06/06/18 08:30 150 17 91/59 (70) 100 06/06/18 08:15 153 20 61/18 (32) 100 06/06/18 08:00 130 06/06/18 08:00 Mechanical Ventilator Mechanical Ventilator 06/06/18 08:00 40 06/06/18 08:00 99.0 133 24 75/40 (52) 100 06/06/18 07:30 130 25 70/15 (33) 100 06/06/18 07:00 99.0 124 24 81/45 (57) 100 06/06/18 07:00 81/45 06/06/18 06:31 130 26 40 06/06/18 06:30 134 24 81/43 (56) 100 06/06/18 06:02 95/53 06/06/18 06:00 90/35 06/06/18 06:00 131 24 90/35 (53) 100 06/06/18 05:30 131 26 63/22 (36) 100 06/06/18 05:11 128 23 40 06/06/18 05:00 89/27 06/06/18 05:00 128 23 89/27 (47) 100 06/06/18 04:30 123 23 88/21 (43) 100 06/06/18 04:00 Mechanical Ventilator Mechanical Ventilator 06/06/18 04:00 129 06/06/18 04:00 128 23 74/22 (39) 100 06/06/18 04:00 24 Mechanical Ventilator 40 06/06/18 04:00 72/19 06/06/18 04:00 40 06/06/18 03:30 112 22 75/22 (39) 100 06/06/18 03:00 115 22 75/25 (42) 100 06/06/18 03:00 24 Mechanical Ventilator 40 06/06/18 03:00 75/25 06/06/18 02:53 130 24 40 06/06/18 02:30 120 24 72/29 (43) 100 06/06/18 02:00 21 Mechanical Ventilator 40 06/06/18 02:00 92/25 06/06/18 02:00 120 22 92/25 (47) 100 06/06/18 01:45 134 22 76/44 (55) 100 06/06/18 01:30 135 22 69/22 (38) 100 06/06/18 01:21 70/29 06/06/18 01:15 137 22 71/55 (60) 100 06/06/18 01:12 133 23 40 06/06/18 01:00 135 22 48/39 (42) 100 06/06/18 01:00 24 Mechanical Ventilator 40 06/06/18 01:00 48/39 06/06/18 00:45 131 22 78/14 (35) 100 06/06/18 00:30 132 22 84/41 (55) 100 06/06/18 00:00 133 22 72/48 (56) 100 06/06/18 00:00 Mechanical Ventilator Mechanical Ventilator 06/06/18 00:00 25 Mechanical Ventilator 40 06/06/18 00:00 72/48 06/06/18 00:00 118 06/05/18 23:30 82/40 06/05/18 23:30 123 22 82/40 (54) 100 06/05/18 23:15 78/12 06/05/18 23:00 24 Mechanical Ventilator 40 06/05/18 23:00 76/22 06/05/18 23:00 127 22 76/22 (40) 100 06/05/18 22:57 124 23 40 06/05/18 22:45 85/24 06/05/18 22:30 123 22 100/20 (46) 100 06/05/18 22:30 100/20 06/05/18 22:15 77/23 06/05/18 22:00 123 22 70/22 (38) 100 06/05/18 22:00 20 Mechanical Ventilator 40 06/05/18 22:00 70/22 06/05/18 21:30 123 22 89/31 (50) 100 06/05/18 21:10 119 22 40 06/05/18 21:00 122 22 88/21 (43) 100 06/05/18 21:00 21 Mechanical Ventilator 40 06/05/18 21:00 88/21 06/05/18 20:30 118 22 93/12 (39) 100 06/05/18 20:19 106/36 06/05/18 20:00 40 06/05/18 20:00 24 Mechanical Ventilator 40 06/05/18 20:00 106/36 06/05/18 20:00 103 06/05/18 20:00 111 22 106/36 (59) 100 06/05/18 20:00 Mechanical Ventilator Mechanical Ventilator 06/05/18 19:30 103 22 127/30 (62) 100 06/05/18 19:08 99 21 40 06/05/18 19:00 96 22 115/21 (52) 100 06/05/18 19:00 20 Mechanical Ventilator 40 06/05/18 18:30 95 22 93/34 (53) 100 06/05/18 18:00 19 Mechanical Ventilator 40 06/05/18 18:00 97 22 114/30 (58) 100 06/05/18 17:30 91 21 122/36 (64) 100 06/05/18 17:00 98.4 101 28 94/34 (54) 100 06/05/18 17:00 18 Mechanical Ventilator 40 06/05/18 17:00 99/17 06/05/18 16:32 112 20 40 06/05/18 16:30 93 23 110/24 (52) 100 06/05/18 16:00 111 20 88/33 (51) 100 06/05/18 16:00 Mechanical Ventilator Mechanical Ventilator 06/05/18 16:00 40 06/05/18 16:00 20 Mechanical Ventilator 40 06/05/18 16:00 88/33 06/05/18 15:39 105 06/05/18 15:30 111 20 99/45 (63) 100 06/05/18 15:15 111 20 90/31 (50) 100 Intake and Output 06/05/18 06/06/18 18:59 06:59 Intake Total 2369.961 ml 2625.129 ml Output Total 370 ml 480 ml Balance 1999.961 ml 2145.129 ml IV Total 1619.961 ml 2075.129 ml Blood Product 750 ml 550 ml Stool Total 200 ml Emesis 30 ml Drainage Total 340 ml 280 ml # Bowel Movements 2 4 Laboratory Tests 06/05/18 21:32: White Blood Count 12.2H, Red Blood Count 2.10L, Hemoglobin 6.5*L, Hematocrit 18.6L, Mean Corpuscular Volume 89, Mean Corpuscular Hemoglobin 31.1H, Mean Corpuscular Hemoglobin Concent 35.1, Red Cell Distribution Width 12.2, Platelet Count 62L, Mean Platelet Volume 7.8, Neutrophils (%) (Auto) , Lymphocytes (%) ( Auto) , Monocytes (%) (Auto) , Eosinophils (%) (Auto) , Basophils (%) (Auto) , Differential Total Cells Counted 100, Neutrophils % (Manual) 88H, Lymphocytes % (Manual) 4L, Monocytes % (Manual) 3, Eosinophils % (Manual) 1, Basophils % ( Manual) 1, Band Neutrophils 3, Platelet Estimate DecreasedL, Platelet Morphology Normal, Hypochromasia 2+, Anisocytosis 2+, Prothrombin Time 15.7H, Prothromb Time International Ratio 1.5H 06/06/18 07:40: White Blood Count 12.8H, Red Blood Count 2.02L, Hemoglobin 6.3*L, Hematocrit 18.4L, Mean Corpuscular Volume 91, Mean Corpuscular Hemoglobin 31.3H, Mean Corpuscular Hemoglobin Concent 34.3, Red Cell Distribution Width 13.8, Platelet Count 52L, Mean Platelet Volume 9.5, Neutrophils (%) (Auto) , Lymphocytes (%) ( Auto) , Monocytes (%) (Auto) , Eosinophils (%) (Auto) , Basophils (%) (Auto) , Differential Total Cells Counted 100, Neutrophils % (Manual) 89H, Lymphocytes % (Manual) 4L, Monocytes % (Manual) 3, Eosinophils % (Manual) 0, Basophils % ( Manual) 0, Band Neutrophils 4, Platelet Estimate DecreasedL, Platelet Morphology Normal, Anisocytosis 1+, Prothrombin Time 20.8H, Prothromb Time International Ratio 2.0H, Nucleated Red Blood Cells 1, Sodium Level 146H, Potassium Level 4.1, Chloride Level 111H, Carbon Dioxide Level 14L, Anion Gap 21H, Blood Urea Nitrogen 127H, Creatinine 4.5H, Estimat Glomerular Filtration Rate , Glucose Level 316#H, Uric Acid 6.5, Calcium Level 6.9L, Phosphorus Level 7.8H, Magnesium Level 1.8, Total Bilirubin 0.4, Aspartate Amino Transf (AST/SGOT ) 24, Alanine Aminotransferase (ALT/SGPT) 11L, Alkaline Phosphatase 62, Troponin I 0.477H, C-Reactive Protein, Quantitative 4.3H, Pro-B-Type Natriuretic Peptide [id number], Total Protein 2.9L, Albumin 1.0L, Globulin 1.9, Albumin/Globulin Ratio 0.5L 06/06/18 14:30: Arterial Blood pH 7.029*L, Arterial Blood Partial Pressure CO2 52.9H, Arterial Blood Partial Pressure O2 108.5H, Arterial Blood HCO3 13.6*L, Arterial Blood Oxygen Saturation 93.8L, Arterial Blood Base Excess -15.6*L, Luiz Test Positive Height (Feet): 5 Height (Inches): 5.00 Weight (Pounds): 23 General Appearance: no apparent distress EENT: other - vented Cardiovascular: tachycardia Respiratory/Chest: decreased breath sounds Abdomen: distended Objective no change Maurilio Arroyo MD Jun 06, 2018 15:11
[2018-06-06] MEDS ORDERED: Sodium Bicarbonate 100 ML in 1/2 NS 1000ml 1,000 ML IV SCH (16:00)
--- NOTE | 2018-06-06 16:05 | NUR ---
NURSE NOTES: [facility] [employer] called with , no harvesting due to sepsis, patient is not a candidate, for coroners.
--- NOTE | 2018-06-06 16:24 | NUR ---
Social Service Note LENA contacted Rody [phone] and informed her that patient . Patient's sister will be landing shortly. Rody provided LENA the phone number of Andre [phone] who will be picking sister Cha up at the airport. LENA informed charge nurse that sister is anticipated to arrive at the hospital.
[2018-06-06] MEDS ORDERED: Hydrocortisone 100mg Inj IV SCH (22:00)
--- NOTE | 2018-06-07 03:10 | Emergency Room Report ---
Physical Exam Code Blue called to ICU. Patient asystolic after becoming bradycardic. Uncontrolled hemorrhaging with multiple surgeries. Unable to determine site of bleeding last procedure. Burgundy stool. Recent blood transfusions. Metabolic acidosis on bicarb. Multiple pressors. Patient has been unresponsive. Last 24 Hour Vital Signs Date Time Temp Pulse Resp B/P (MAP) Pulse Ox O2 Delivery O2 Flow Rate FiO2 06/06/18 15:00 52 13 95/68 (77) 33 06/06/18 15:00 95/68 06/06/18 14:31 66/17 06/06/18 14:30 101 28 57/14 (28) 98 06/06/18 14:00 75/24 06/06/18 14:00 111 28 75/24 (41) 99 06/06/18 13:30 109 30 65/20 (35) 98 06/06/18 13:00 149 26 66/18 (34) 100 06/06/18 13:00 66/18 06/06/18 12:47 147 26 40 06/06/18 12:30 148 26 63/17 (32) 100 06/06/18 12:00 40 06/06/18 12:00 Mechanical Ventilator Mechanical Ventilator 06/06/18 12:00 58/12 06/06/18 12:00 146 06/06/18 12:00 98.6 137 29 28/12 (17) 100 06/06/18 11:45 143 29 63/20 (34) 100 06/06/18 11:30 145 29 63/20 (34) 100 06/06/18 11:15 114 29 63/18 (33) 100 06/06/18 11:00 66/17 06/06/18 11:00 147 29 66/17 (33) 100 06/06/18 10:45 149 31 86/54 (65) 100 06/06/18 10:38 155 26 40 06/06/18 10:30 150 27 46/17 (27) 100 06/06/18 10:15 148 30 87/90 (89) 100 06/06/18 10:00 142 29 95/90 (92) 100 06/06/18 09:45 136 30 80/25 (43) 100 06/06/18 09:37 145 70/40 06/06/18 09:30 136 30 70/40 (50) 100 06/06/18 09:15 125 28 69/17 (34) 100 06/06/18 09:00 43/27 06/06/18 09:00 145 23 43/27 (32) 100 06/06/18 08:45 150 17 47/24 (32) 100 06/06/18 08:32 153 27 40 06/06/18 08:30 150 17 91/59 (70) 100 06/06/18 08:15 153 20 61/18 (32) 100 06/06/18 08:00 130 06/06/18 08:00 Mechanical Ventilator Mechanical Ventilator 06/06/18 08:00 40 06/06/18 08:00 99.0 133 24 75/40 (52) 100 06/06/18 07:30 130 25 70/15 (33) 100 06/06/18 07:00 99.0 124 24 81/45 (57) 100 06/06/18 07:00 81/45 06/06/18 06:31 130 26 40 06/06/18 06:30 134 24 81/43 (56) 100 06/06/18 06:02 95/53 06/06/18 06:00 90/35 06/06/18 06:00 131 24 90/35 (53) 100 06/06/18 05:30 131 26 63/22 (36) 100 06/06/18 05:11 128 23 40 06/06/18 05:00 89/27 06/06/18 05:00 128 23 89/27 (47) 100 06/06/18 04:30 123 23 88/21 (43) 100 06/06/18 04:00 Mechanical Ventilator Mechanical Ventilator 06/06/18 04:00 129 06/06/18 04:00 128 23 74/22 (39) 100 06/06/18 04:00 24 Mechanical Ventilator 40 06/06/18 04:00 72/19 06/06/18 04:00 40 06/06/18 03:30 112 22 75/22 (39) 100 06/06/18 03:00 115 22 75/25 (42) 100 06/06/18 03:00 24 Mechanical Ventilator 40 06/06/18 03:00 75/25 Sp02 EP Interpretation: reviewed, abnormal - interpreted low by me General Appearance: obese - anasarca, other - unresponsive, Chronically Ill Eyes: bilateral eye conjunctivae pale, bilateral eye other - unresponsive pupils ENT: moist mucus membranes, other - ET tube Respiratory: other - bilat BS Cardiovascular #1: other - pulses with CPR Cardiovascular #2: 1+ femoral (R) - CPR only - CVP Gastrointestinal: distended, decreased bowel sounds, overweight Rectal: heme positive stool Genitourinary: penis normal, other - molina Musculoskeletal: swelling Neurologic: other - unresponsive Psychiatric: other - comatose/unresponsive Skin: pallor CPR/Code Blue CPR/Code Blue Narrative Code Blue ICU - asystole. Prior to my arrival epi 1 mg. CPR supervised directly by me. Review of ABG and labs. Bicarb given. EPI repeat. Discussed with staff and attendings. Patient not responding to aggressive treatment and resuscitation attempts. Patient demonstrates cardiopulmonary unresponsiveness and resuscitation stopped at 15:02 and patient pronounced. Medical Decision Making Diagnostic Impression: Primary Impression: Cardiopulmonary arrest Additional Impression: GI bleed Qualified Codes: K92.2 - Gastrointestinal hemorrhage, unspecified ER Course Patient arrested in ICU. See Code Blue sheet and notes. Patient demonstrated cardiopulmonary unresponsiveness and pronounced at 15:02. Laboratory Tests Test 06/05/18 04:30 06/05/18 12:30 06/05/18 21:32 06/06/18 07:40 White Blood Count 11.9 K/UL (4.8-10.8) H 11.8 K/UL (4.8-10.8) H 12.2 K/UL (4.8-10.8) H 12.8 K/UL (4.8-10.8) H Red Blood Count 2.20 M/UL (4.70-6.10) L 2.97 M/UL (4.70-6.10) L 2.10 M/UL (4.70-6.10) L 2.02 M/UL (4.70-6.10) L Hemoglobin 6.6 G/DL (14.2-18.0) *L 9.1 G/DL (14.2-18.0) #L 6.5 G/DL (14.2-18.0) *L 6.3 G/DL (14.2-18.0) *L Hematocrit 19.3 % (42.0-52.0) L 26.3 % (42.0-52.0) #L 18.6 % (42.0-52.0) L 18.4 % (42.0-52.0) L Mean Corpuscular Volume 88 FL (80-99) 88 FL (80-99) 89 FL (80-99) 91 FL ( 80-99) Mean Corpuscular Hemoglobin 30.2 PG (27.0-31.0) 30.7 PG (27.0-31.0) 31.1 PG (27.0-31.0) H 31.3 PG (27.0-31.0) H Mean Corpuscular Hemoglobin Concent 34.5 G/DL (32.0-36.0) 34.8 G/DL (32.0-36.0) 35.1 G/DL (32.0-36.0) 34.3 G/DL (32.0-36.0) Red Cell Distribution Width 12.9 % (11.6-14.8) 13.1 % (11.6-14.8) 12.2 % (11.6-14.8) 13.8 % (11.6-14.8) Platelet Count 84 K/UL (150-450) #L 75 K/UL (150-450) L 62 K/UL (150-450) L 52 K/UL (150-450) L Mean Platelet Volume 6.4 FL (6.5-10.1) L 7.6 FL (6.5-10.1) 7.8 FL (6.5-10.1) 9.5 FL (6.5-10.1) Neutrophils (%) (Auto) % (45.0-75.0) % (45.0-75.0) % (45.0-75.0) % (45.0-75.0) Lymphocytes (%) (Auto) % (20.0-45.0) % (20.0-45.0) % (20.0-45.0) % (20.0-45.0) Monocytes (%) (Auto) % (1.0-10.0) % (1.0-10.0) % (1.0-10.0) % (1.0- 10.0) Eosinophils (%) (Auto) % (0.0-3.0) % (0.0-3.0) % (0.0-3.0) % (0.0-3.0 ) Basophils (%) (Auto) % (0.0-2.0) % (0.0-2.0) % (0.0-2.0) % (0.0-2.0) Differential Total Cells Counted 100 100 100 100 Neutrophils % (Manual) 95 % (45-75) H 90 % (45-75) H 88 % (45-75) H 89 % (45- 75) H Lymphocytes % (Manual) 2 % (20-45) L 6 % (20-45) L 4 % (20-45) L 4 % (20-45) L Monocytes % (Manual) 0 % (1-10) L 3 % (1-10) 3 % (1-10) 3 % (1-10) Eosinophils % (Manual) 0 % (0-3) 0 % (0-3) 1 % (0-3) 0 % (0-3) Basophils % (Manual) 0 % (0-2) 0 % (0-2) 1 % (0-2) 0 % (0-2) Band Neutrophils 3 % (0-8) 1 % (0-8) 3 % (0-8) 4 % (0-8) Nucleated Red Blood Cells 1 /100 WBC 1 /100 WBC Platelet Estimate Decreased L Decreased L Decreased L Decreased L Platelet Morphology Normal Normal Normal Normal Hypochromasia 1+ 1+ 2+ Prothrombin Time 14.7 SEC (9.30-11.50) H 15.0 SEC (9.30-11.50) H 15.7 SEC (9.30-11.50) H 20.8 SEC (9.30-11.50) H Prothrombin Time INR 1.4 (0.9-1.1) H 1.4 (0.9-1.1) H 1.5 (0.9-1.1) H 2.0 (0.9-1.1) H Sodium Level 147 MMOL/L (136-145) H 146 MMOL/L (136-145) H Potassium Level 3.2 MMOL/L (3.5-5.1) L 4.1 MMOL/L (3.5-5.1) Chloride Level 111 MMOL/L (98-107) H 111 MMOL/L (98-107) H Carbon Dioxide Level 19 MMOL/L (21-32) L 14 MMOL/L (21-32) L Anion Gap 17 mmol/L (5-15) H 21 mmol/L (5-15) H Blood Urea Nitrogen 105 mg/dL (7-18) H 127 mg/dL (7-18) H Creatinine 4.3 MG/DL (0.55-1.30) H 4.5 MG/DL (0.55-1.30) H Estimate Glomerular Filtration Rate mL/min (>60) mL/min (>60) Glucose Level 120 MG/DL (74-106) H 316 MG/DL (74-106) #H Uric Acid 4.9 MG/DL (2.6-7.2) 6.5 MG/DL (2.6-7.2) Calcium Level 7.4 MG/DL (8.5-10.1) L 6.9 MG/DL (8.5-10.1) L Phosphorus Level 6.2 MG/DL (2.5-4.9) H 7.8 MG/DL (2.5-4.9) H Magnesium Level 2.1 MG/DL (1.8-2.4) 1.8 MG/DL (1.8-2.4) Total Bilirubin 0.4 MG/DL (0.2-1.0) 0.4 MG/DL (0.2-1.0) Aspartate Amino Transferase (AST) 26 U/L (15-37) 24 U/L (15-37) Alanine Aminotransferase (ALT) 14 U/L (12-78) 11 U/L (12-78) L Alkaline Phosphatase 74 U/L (46-116) 62 U/L (46-116) Pro-B-Type Natriuretic Peptide 07092 pg/mL (0-125) H 23977 pg/mL (0-125) H Total Protein 4.1 G/DL (6.4-8.2) L 2.9 G/DL (6.4-8.2) L Albumin 1.4 G/DL (3.4-5.0) L 1.0 G/DL (3.4-5.0) L Globulin 2.7 g/dL 1.9 g/dL Albumin/Globulin Ratio 0.5 (1.0-2.7) L 0.5 (1.0-2.7) L Red Blood Cell Morphology PTT 36 SEC (23-33) H Anisocytosis 2+ 1+ Troponin I 0.477 ng/mL (0.000-0.056) C-Reactive Protein, Quantitative 4.3 mg/dL (0.00-0.90) H Test 06/06/18 14:30 Arterial Blood pH 7.029 (7.350-7.450) Arterial Blood Partial Pressure CO2 52.9 mmHg (35.0-45.0) H Arterial Blood Partial Pressure O2 108.5 mmHg (75.0-100.0) H Arterial Blood HCO3 13.6 mmol/L (22.0-26.0) *L Arterial Blood Oxygen Saturation 93.8 % (95-100) L Arterial Blood Base Excess -15.6 (-2-2) *L Luiz Test Positive Rhythm Strip Diag. Results EP Interpretation: yes Rhythm: other - asystole Status: worsened Disposition: Condition: Referrals: NOT CHOSEN IPA/,REFERRING (PCP) Denis Henao MD Jun 07, 2018 03:10
--- NOTE | 2018-06-07 16:49 | Discharge Summary ---
Discharge Summary Discharge Summary _ DATE OF ADMISSION: 05/10/2019 DATE OF DISCHARGE: 06/06/2018 BRIEF SUMMARY: Patient is an fortunate 78-year-old male, who presented to ED via EMS for complaints of chest pain. Patient was unable to give history. Patient was reported to have chest pain at the facility and was transported to [facility] for further evaluation. He has medical history significant for stage renal disease on hemodialysis, diabetes mellitus, hypertension, kidney stones, GERD, anxiety, organic brain syndrome, constipation, depression and insomnia. On evaluation at ED, patient was tachycardic, heart rate 118, blood pressure 101 /69. He was saturating 100% on nonrebreather mask. Blood work did not show any leukocytosis, hemoglobin was 10, hematocrit 31. Sodium was low at 126. Creatinine was elevated to 11, BUN 104. Initial troponin was negative. ProBNP was 2961. Urinalysis showed 4+ protein, 2+ glucose, 1+ blood, 2+ leukocyte esterase, 2-4 RBC, 30-40 WBC. Chest x-ray showed no acute process. He was then admitted for evaluation of acute coronary syndrome, hyponatremia and renal failure. Tipping Machine Operator was consulted. Patient needed dialysis emergently. He was noted to have tachycardia. He was given metoprolol. Echocardiogram done showed normal left ventricular function, EF 60%. Venous duplex of the lower extremity was negative for acute DVT. Urine culture was growing gram-positive cocci. Blood culture was showing gram- negative rods. ID was consulted. He was started on IV vancomycin and cefepime. Psychiatrist was consulted. Patient was diagnosed with anxiety disorder and depression. He was given Zoloft and trazodone. Patient had a AV graft which is was clotted. Patient required urgent hemodialysis. Atemporary hemodialysis catheter was inserted. On 05/12/2018, patient was noted to be tachycardic and hypotensive. He was A. fib on the monitor. He was transferred to ICU. Patient became acutely hypotensive and hypoxemic and went into A. fib with RVR. There was also findings of elevated d-dimer. He was started on IV heparin drip and a stat CT angio of the chest was ordered. He was eventually started on IV pressor. Condition was guarded. He was given digoxin and Cardizem. Heart rate continued to be elevated. CT a was negative for PE. He was continued on IV heparin. He was started Coumadin. He was eventually taken off IV pressors. He was given midodrine. Patient complaint of abdominal pain. Leukocytosis was worsening. He recently had lap cholecystectomy performed at an outside facility. CT of the abdomen and pelvis showed free intraperitoneal gas and fluid. There were surgical clips in the gallbladder fossa. On 05/15/2018, patient underwent exploratory laparotomy with small bowel resection, omentectomy, abdominal washout and drain placement. There was small bowel perforation in the distal ileum, likely iatrogenic from patient's recent laparoscopic cholecystectomy. He tolerated procedure well and was left intubated and was transferred to ICU for recovery. He was restarted on IV pressors. Patient was failing weaning trials for extubation. On 05/19/2018, ET was dislodged. Patient was reintubated. Blood culture showed growth of Serratia and Enterobacter. Antibiotics were adjusted. He was given Zosyn. Micafungin was added. On 05/20/2018, patient was restarted on levophed drip. Shunt was rapidly declining. Lactic acid was elevated. Troponin was elevated. Patient was kept n.p.o. NG tube to intermittent suction. Prognosis remains guarded. Venous duplex of the right upper arm showed acute thrombosis. Heparin drip was restarted. He was noted to have yellowish discharge coming out from incision site. On 07/2018, wound had bilious drainage. Wound was opened at bedside and had bile spillage. Consideration for possible biliary leak, possible anastomosis leak. Patient required emergent OR. Patient underwent exploratory laparotomy with small bowel resection, abdominal washout, abdominal wound VAC placement. Patient abdomen was left open for a planned reoperation / exploration. A central line was inserted to the left subclavian vein. He was continued on IV pressors. He was eventually started on TPN. Patient was planned to return to OR for a planned reexploration. However, patient was unable to return to the OR as patient was unstable. He was noted to have severe anemia and required multiple blood transfusions. He continued to have anemia. Patient had hypofibrinogenemia, and required multiple transfusion of cryoprecipitate, frozen plasma and packed RBC. On 05/27/2018, he underwent a planned reexploration of the abdomen with removal of wound VAC and completion of omentectomy and abdominal closure. On 05/29/2018, he was noted to have reddish aspirate from the NG tube. He was extubated for 4 hours but had to be reintubated. On 06/03/2018, he was noted to have difficult maroon colored blood clots in the rectal tube. Patient with GI bleed. He was given multiple blood transfusions. On 06/05/2018, he underwent EGD with colonoscopy by Dr. Campos. Procedure showed minimal distal esophagitis. Gastritis. Inflammatory changes in the duodenum and blood throughout the colon up to the anastomosis even into the small intestine. Bleeding possibly from small bowel. Patient continued to be hypotensive and required multiple pressors. On 06/06/2018, patient bradycardic then asystolic. Patient was unresponsive. CODE BLUE was called. Resuscitative efforts failed and patient eventually . FINAL DIAGNOSES: Cardiopulmonary arrest Acute perforated bowel from recent laparoscopic cholecystectomy Hyponatremia Septic shock/ serratia disease Hemorrhagic shock/hypovolemic shock End-stage renal disease on hemodialysis Acute GI bleed Acute peritonitis with Citrobacter and Serratia Drop in hemoglobin requiring multiple blood transfusion Metabolic acidosis Atrial fibrillation/flutter with RVR Troponin leak due to renal failure Acute respiratory failure Decubitus ulcer stage III, present on admission Acute DVT right upper arm Anemia of chronic disease Hypo-fibrinogenemia Thrombocytopenia Altered mental status/confusion/acute encephalopathy Malnutrition Status post exploratory laparotomy x2, with planned reexploration Status post upper and lower endoscopy DISPOSITION: Patient . I have been assigned to dictate discharge summary on this account, and I was not involved in the patient's management. Tammi Bajwa NP Jun 07, 2018 16:49
[2018-06-11] MEDS ORDERED: Phytonadione 10 mg/mL 1ml amp SUBQ SCH (11:00)
[2018-06-12] MEDS ORDERED: Phytonadione 10 mg/mL 1ml amp SUBQ SCH (09:00)
== END 2018-06-06 15:06 | disposition expired | DRG 853 ==
LOC: EDBD 00:01 → EMR 00:16 → 2E 00:37 → EDBEDREQ 00:41 → ICU 05-12 15:09
PROC: 5A1D70Z Performance of Urinary Filtration, Intermittent, Less than 6 Hours Per Day (ICD-10-PCS; principal; 2018-05-10)
PROC: 06HM33Z Insertion of Infusion Device into Right Femoral Vein, Percutaneous Approach (ICD-10-PCS; 2018-05-12)
PROC: 5A1955Z Respiratory Ventilation, Greater than 96 Consecutive Hours (ICD-10-PCS; 2018-05-15)
PROC: 0DBU0ZZ Excision of Omentum, Open Approach (ICD-10-PCS; 2018-05-15)
PROC: 0DB80ZZ Excision of Small Intestine, Open Approach (ICD-10-PCS; 2018-05-15)
PROC: 05H633Z Insertion of Infusion Device into Left Subclavian Vein, Percutaneous Approach (ICD-10-PCS; 2018-05-23)
PROC: 0DB80ZZ Excision of Small Intestine, Open Approach (ICD-10-PCS; 2018-05-23)
PROC: 0DTU0ZZ Resection of Omentum, Open Approach (ICD-10-PCS; 2018-05-27)
PROC: 0DTF0ZZ Resection of Right Large Intestine, Open Approach (ICD-10-PCS; 2018-05-27)
PROC: 0DJD8ZZ Inspection of Lower Intestinal Tract, Via Natural or Artificial Opening Endoscopic (ICD-10-PCS; 2018-06-05)
PROC: 0DB98ZX Excision of Duodenum, Via Natural or Artificial Opening Endoscopic, Diagnostic (ICD-10-PCS; 2018-06-05)
DX: A41.53 Sepsis due to Serratia (principal); L89.153 Pressure ulcer of sacral region, stage 3; N18.6 End stage renal disease; R65.21 Severe sepsis with septic shock; J96.01 Acute respiratory failure with hypoxia; G93.41 Metabolic encephalopathy; K65.8 Other peritonitis; J18.9 Pneumonia, unspecified organism; D65 Disseminated intravascular coagulation [defibrination syndrome]; N39.0 Urinary tract infection, site not specified; K91.71 Accidental puncture and laceration of a digestive system organ or structure during a digestive system procedure; I13.2 Hypertensive heart and chronic kidney disease with heart failure and with stage 5 chronic kidney disease, or end stage renal disease; E87.1 Hypo-osmolality and hyponatremia; I48.92 Unspecified atrial flutter; K91.89 Other postprocedural complications and disorders of digestive system; K92.2 Gastrointestinal hemorrhage, unspecified; J98.11 Atelectasis; Z99.11 Dependence on respirator [ventilator] status; I82.621 Acute embolism and thrombosis of deep veins of right upper extremity; T82.868A Thrombosis due to vascular prosthetic devices, implants and grafts, initial encounter; E46 Unspecified protein-calorie malnutrition; Z68.1 Body mass index [BMI] 19.9 or less, adult; E11.22 Type 2 diabetes mellitus with diabetic chronic kidney disease; E11.65 Type 2 diabetes mellitus with hyperglycemia; I50.9 Heart failure, unspecified; Z99.2 Dependence on renal dialysis; F41.9 Anxiety disorder, unspecified; F32.9 Major depressive disorder, single episode, unspecified; D64.9 Anemia, unspecified; N40.0 Benign prostatic hyperplasia without lower urinary tract symptoms; F09 Unspecified mental disorder due to known physiological condition; I48.91 Unspecified atrial fibrillation; R00.1 Bradycardia, unspecified; K29.70 Gastritis, unspecified, without bleeding; K20.9 Esophagitis, unspecified; E87.6 Hypokalemia; D69.6 Thrombocytopenia, unspecified; R57.1 Hypovolemic shock; R57.8 Other shock; K64.8 Other hemorrhoids; Z53.31 Laparoscopic surgical procedure converted to open procedure; R79.89 Other specified abnormal findings of blood chemistry
CPT/HCPCS: 36415; 36600; 71045; 71275; 74018; 74176; 74177; 80048; 80053; 80061; 80162; 80202; 81003; 82140; 82150; 82533; 82550; 82553; 82728; 82803; 82947; 82962; 82977; 83036; 83540; 83550; 83605; 83690; 83735; 83880; 84100; 84132; 84443; 84484; 84550; 85007; 85025; 85379; 85384; 85610; 85651; 85730; 86140; 86850; 86900; 86901; 86920; 86927; 87040; 87070; 87075; 87081; 87086; 87181; 87205; 87324; 92950; 93005; 93306; 93970; 94002; 94003; 94150; 94664; 94760; 96360; 99291; J0282; J1815; J2250; J2370; J2405; S5561